=== PATIENT | female | born 1955 | race Caucasian/White ===

== ENCOUNTER 2016-08-04 18:19 | Observation (INO) | payer OTHER ==
[2016-08-04] MEDS ORDERED: ONDANSETRON 4 MG/2 ML VIAL IVP STA (18:38)
[2016-08-04] MEDS ORDERED: SODIUM CHLORIDE 0.9% 1,000 ML IV STA ×2 (18:38→20:24)
[2016-08-04] MEDS ORDERED: HYDROmorphone 1 MG/ML 1 ML SYRINGE IVP STA ×2 (18:38→20:26)
--- NOTE | 2016-08-04 18:41 | ED ---
General Adult HPI - General Source: RN notes reviewed <Nadine Sanders - Last Filed: 08/04/16 20:26> <Zachariah Faye - Last Filed: 08/04/16 20:39> - General Stated complaint: Abdominal Pain Time Seen by Provider: 08/04/16 18:32 - History of Present Illness Initial comments: 61-year-old female presents emergency Department chief complaint abdominal pain. Patient states it started last day or so. Patient states she has a history of pancreatitis. Patient states that she is having vomiting just as abdominal pain and left-sided the abdomen. Patient states that she is concerned maybe she has kidney stones or may be her pancreatitis is back. Patient has had a low-grade temp of this. Patient is a changes in urination any blood in the urine. Patient states visiting nurse tried to call her doctor and he referred her here. Patient states that she does have a urologist as well she is to have a catheter but that has since been removed. Patient states she was concerned due to the pain with a low-grade fever so she thought that she should be evaluated.Patient denies any recent fever, chills, shortness of breath, chest pain, back pain, nausea vomiting, numbness or tingling, dysuria or hematuria, constipation or diarrhea, headaches or visual changes, or any other current symptoms. (Nadine Sanders) - Related Data Home Medications Medication Instructions Recorded Confirmed Fenofibrate 160 mg PO HS 11/15/15 08/04/16 Losartan Potassium [Cozaar] 100 mg PO DAILY 11/15/15 08/04/16 Metoprolol Tartrate [Lopressor] 50 mg PO BID 11/15/15 08/04/16 Docusate [Colace] 200 mg PO HS 07/20/16 08/04/16 HYDROcodone/APAP 7.5-325MG [[place] 1 tab PO Q4H PRN 07/20/16 08/04/16 7.5-325] Sennosides [Senna] 17.2 mg PO HS 07/20/16 08/04/16 amLODIPine [Norvasc] 5 mg PO DAILY 07/20/16 08/04/16 Ibuprofen [Motrin] 400 mg PO Q6H PRN 08/04/16 08/04/16 Allergies Allergy/AdvReac Type Severity Reaction Status Date / Time sulfamethoxazole Allergy Itching Verified 08/04/16 19:42 [From ] trimethoprim [From ] Allergy Itching Verified 08/04/16 19:42 Review of Systems ROS Other: All systems not noted in ROS Statement are negative. <MarilynNadine - Last Filed: 08/04/16 20:26> ROS Other: All systems not noted in ROS Statement are negative. <YunierZachariah - Last Filed: 08/04/16 20:39> ROS Statement: Those systems with pertinent positive or pertinent negative responses have been documented in the HPI. Past Medical History Past Medical History: Diabetes Mellitus, GERD/Reflux, Hyperlipidemia, Hypertension Additional Past Medical History / Comment(s): Nephrolithiasis, UTI's, patient reports she was once on insulin for diabetes but changed her diet and now does not take anything. occasional vertigo, and R arm fracture with surgery. 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 Past Anesthesia/Blood Transfusion Reactions: No Reported Reaction Additional Past Anesthesia/Blood Transfusion Reaction / Comment(s): Pt received blood in 1978-no reaction reported. Past Psychological History: No Psychological Hx Reported Additional Psychological History / Comment(s): Pt has had anxiety and panic attacks in the past but states no longer a problem. She resides with her spouse. She is independent. She in a bilateral AKA and gets around in a power wheelchair. She no longer drives but her spouse drives. Smoking Status: Current every day smoker Past Alcohol Use History: None Reported Additional Past Alcohol Use History / Comment(s): Pt states she started smoking at age 18 yrs and a pack will last her 2 days. Past Drug Use History: None Reported - Past Family History Father Family Medical History: Cancer, Myocardial Infarction ([place]) Additional Family Medical History / Comment(s): Father had lung cancer-went into remission. He of a massive [place] in his 60's Mother Family Medical History: Cancer Additional Family Medical History / Comment(s): Mother of lung cancer at age 54 yrs. <Nadine Sanders - Last Filed: 08/04/16 20:26> General Exam <Nadine Sanders - Last Filed: 08/04/16 20:26> <Zachariah Faye - Last Filed: 08/04/16 20:39> - General Exam Comments Initial Comments: General: The patient is awake and alert, in no distress, and does not appear acutely ill. Eye: Pupils are equal, round and reactive to light, extra-ocular movements are intact; there is normal conjunctiva bilaterally. No signs of icterus. Ears, nose, mouth and throat: There are moist mucous membranes and no oral lesions. Neck: The neck is supple, there is no tenderness. Cardiovascular: There is a regular rate and rhythm. No murmur, rub or gallop is appreciated. Respiratory: Lungs are clear to auscultation, respirations are non-labored, breath sounds are equal. No wheezes, stridor, rales, or rhonchi. Gastrointestinal: Soft, non-distended, left side tenderness of the abdomen without masses or organomegaly noted. There is no rebound or guarding present. No CVA tenderness. Bowel sounds are unremarkable. Back: There is no tenderness to palpation in the midline. There is no obvious deformity. No rashes noted. Musculoskeletal: Normal ROM, no tenderness, There is no pedal edema. There is no calf tenderness or swelling. Sensation intact. Pulses equal bilaterally 2+. Neurological: CN II-XII intact, There are no obvious motor or sensory deficits. Coordination appears grossly intact. Speech is normal. Skin: Skin is warm and dry and no rashes or lesions are noted. Psychiatric: Cooperative, appropriate mood & affect, normal judgment. (Nadine Sanders) Course <Nadine Sanders - Last Filed: 08/04/16 20:26> <Zachariah Faye - Last Filed: 08/04/16 20:39> Vital Signs 08/04/16 18:52 Temperature 100.1 F H Pulse Rate 91 Respiratory 18 Rate Blood Pressure 212/102 O2 Sat by Pulse 96 Oximetry - Reevaluation(s) Reevaluation #1: 08/04/16 20:37 I did personally evaluate this case and did discuss the findings with Dr. Nguyen. Patient be admitted for pain control IV fluids. She'll be nothing by mouth. (Zachariah Faye) Medical Decision Making - Lab Data Result diagrams: 08/04/16 18:50 08/04/16 18:50 <Nadine Sanders - Last Filed: 08/04/16 20:26> - Lab Data Result diagrams: 08/04/16 18:50 08/04/16 18:50 <Zachariah Faye - Last Filed: 08/04/16 20:39> - Medical Decision Making 61-year-old female presents emergency Department chief complaint abdominal pain. At this time the patient's CAT scan is reviewed as well as lab work. Patient does have a mildly elevated lipase with some white blood cells in urine. We will send the urine for culture. We will also start the patient and he'll give her pain medicines and nausea meds are pink and has admitted the patient. CAT scan was reviewed that does not show any significant changes. This time patient is in agreement with the plan. (Nadine Sanders) - Lab Data Lab Results 08/04/16 08/04/16 08/04/16 Range/Units 18:50 18:50 18:50 WBC 11.3 H (3.8-10.6) k/uL RBC 5.02 (3.80-5.40) m/uL Hgb 14.4 (11.4-16.0) gm/dL Hct 42.8 (34.0-46.0) % MCV 85.4 (80.0-100.0) fL MCH 28.6 (25.0-35.0) pg MCHC 33.5 (31.0-37.0) g/dL RDW 13.2 (11.5-15.5) % Plt Count 423 (150-450) k/uL Neutrophils % 65 % Lymphocytes % 27 % Monocytes % 5 % Eosinophils % 2 % Basophils % 1 % Neutrophils # 7.3 (1.3-7.7) k/uL Lymphocytes # 3.1 (1.0-4.8) k/uL Monocytes # 0.5 (0-1.0) k/uL Eosinophils # 0.2 (0-0.7) k/uL Basophils # 0.1 (0-0.2) k/uL PT (9.0-12.0) sec INR (<1.1) APTT (22.0-30.0) sec Sodium 144 (137-145) mmol/L Potassium 3.6 (3.5-5.1) mmol/L Chloride 111 H (98-107) mmol/L Carbon Dioxide 19 L (22-30) mmol/L Anion Gap 14 mmol/L BUN 23 H (7-17) mg/dL Creatinine 0.55 (0.52-1.04) mg/dL Est GFR (MDRD) Af Amer >60 (>60 ml/min/1.73 sqM) Est GFR (MDRD) Non-Af >60 (>60 ml/min/1.73 sqM) Glucose 152 H (74-99) mg/dL Plasma Lactic Acid Joshua 1.4 (0.7-2.0) mmol/L Calcium 8.8 (8.4-10.2) mg/dL Total Bilirubin 0.3 (0.2-1.3) mg/dL AST 17 (14-36) U/L ALT 27 (9-52) U/L Alkaline Phosphatase 51 (38-126) U/L Total Protein 6.8 (6.3-8.2) g/dL Albumin 3.9 (3.5-5.0) g/dL Amylase 79 (30-110) U/L Lipase 549 H (23-300) U/L Urine Color Urine Appearance (Clear) Urine pH (5.0-8.0) Ur Specific [place] (1.001-1.035) Urine Protein (Negative) Urine Glucose (UA) (Negative) Urine Ketones (Negative) Urine Blood (Negative) Urine Nitrate (Negative) Urine Bilirubin (Negative) Urine Urobilinogen (<2.0) mg/dL Ur Leukocyte Esterase (Negative) Urine RBC (0-5) /hpf Urine WBC (0-5) /hpf Ur Squamous Epith Cells (0-4) /hpf Urine Bacteria (None) /hpf 08/04/16 08/04/16 Range/Units 18:50 19:50 WBC (3.8-10.6) k/uL RBC (3.80-5.40) m/uL Hgb (11.4-16.0) gm/dL Hct (34.0-46.0) % MCV (80.0-100.0) fL MCH (25.0-35.0) pg MCHC (31.0-37.0) g/dL RDW (11.5-15.5) % Plt Count (150-450) k/uL Neutrophils % % Lymphocytes % % Monocytes % % Eosinophils % % Basophils % % Neutrophils # (1.3-7.7) k/uL Lymphocytes # (1.0-4.8) k/uL Monocytes # (0-1.0) k/uL Eosinophils # (0-0.7) k/uL Basophils # (0-0.2) k/uL PT 10.5 (9.0-12.0) sec INR 1.0 (<1.1) APTT 25.1 (22.0-30.0) sec Sodium (137-145) mmol/L Potassium (3.5-5.1) mmol/L Chloride (98-107) mmol/L Carbon Dioxide (22-30) mmol/L Anion Gap mmol/L BUN (7-17) mg/dL Creatinine (0.52-1.04) mg/dL Est GFR (MDRD) Af Amer (>60 ml/min/1.73 sqM) Est GFR (MDRD) Non-Af (>60 ml/min/1.73 sqM) Glucose (74-99) mg/dL Plasma Lactic Acid Joshua (0.7-2.0) mmol/L Calcium (8.4-10.2) mg/dL Total Bilirubin (0.2-1.3) mg/dL AST (14-36) U/L ALT (9-52) U/L Alkaline Phosphatase (38-126) U/L Total Protein (6.3-8.2) g/dL Albumin (3.5-5.0) g/dL Amylase (30-110) U/L Lipase (23-300) U/L Urine Color Light Yellow Urine Appearance Clear (Clear) Urine pH 5.5 (5.0-8.0) Ur Specific [place] 1.010 (1.001-1.035) Urine Protein Negative (Negative) Urine Glucose (UA) Negative (Negative) Urine Ketones Negative (Negative) Urine Blood Negative (Negative) Urine Nitrate Negative (Negative) Urine Bilirubin Negative (Negative) Urine Urobilinogen <2.0 (<2.0) mg/dL Ur Leukocyte Esterase Large H (Negative) Urine RBC 2 (0-5) /hpf Urine WBC 20 H (0-5) /hpf Ur Squamous Epith Cells 4 (0-4) /hpf Urine Bacteria Rare H (None) /hpf Disposition Time of Disposition: 20:27 Decision Date: 08/04/16 Decision Time: 20:27 <Nadine Sanders - Last Filed: 08/04/16 20:26> <Zachariah Faye - Last Filed: 08/04/16 20:39> Clinical Impression: Acute pancreatitis, Urinary tract infection, Abdominal pain, Dehydration Disposition: ADMITTED IP TO THIS HOSP Condition: Stable Referrals: Dick Nguyen MD [Primary Care Provider] - 1-2 days
[2016-08-04 19:00] LABS: Basophils # (A) 0.1 k/uL (0-0.2); Basophils % (A) 1 %; CH 29.2; CHCM 34.4; Eosinophils # (A) 0.2 k/uL (0-0.7); Eosinophils % (A) 2 %; HCT 42.8 % (34.0-46.0); HDW 2.49; HGB 14.4 gm/dL (11.4-16.0); Luc # (Auto) 0.16; Luc % (Auto) 1; Lymphocytes # (A) 3.1 k/uL (1.0-4.8); Lymphocytes % (A) 27 %; MCH 28.6 pg (25.0-35.0); MCHC 33.5 g/dL (31.0-37.0); MCV 85.4 fL (80.0-100.0); Mean Platelet Volume 7.7; Monocytes # (A) 0.5 k/uL (0-1.0); Monocytes % (A) 5 %; Neutrophils # (A) 7.3 k/uL (1.3-7.7); Neutrophils % (A) 65 %; RBC 5.02 m/uL (3.80-5.40); RDW 13.2 % (11.5-15.5); WBC 11.3 k/uL (3.8-10.6); WBC (Perox) 11.37
[2016-08-04 19:12] LABS: Partial Thromboplastin Time 25.1 sec (22.0-30.0); Prothrombin Time 10.5 sec (9.0-12.0)
[2016-08-04 19:22] LABS: ALT 27 U/L (9-52); AST 17 U/L (14-36); Alkaline Phosphatase 51 U/L (38-126); Amylase 79 U/L (30-110); Anion Gap 14 mmol/L; Blood Urea Nitrogen 23 mg/dL (7-17); Calcium 8.8 mg/dL (8.4-10.2); Carbon Dioxide 19 mmol/L (22-30); Chloride 111 mmol/L (98-107); Glucose 152 mg/dL (74-99); Non-African American GFR(MDRD) >60 (>60 ml/min/1.73 sqM); Potassium 3.6 mmol/L (3.5-5.1); Sodium 144 mmol/L (137-145); Total Bilirubin 0.3 mg/dL (0.2-1.3); Total Protein 6.8 g/dL (6.3-8.2)
[2016-08-04 20:10] LABS: Appearance,Urine Clear (Clear); Bacteria,Urine Rare /hpf; Bilirubin,Urine Negative (Negative); Glucose,Urine (UA) Negative (Negative); Ketones,Urine Negative (Negative); Leukocyte Esterase,Urine Large (Negative); Nitrite,Urine Negative (Negative); PH, Urine 5.5 (5.0-8.0); Particle Count 1719; Protein,Urine Negative (Negative); RBC,Urine 2 /hpf (0-5); Squamous Epithelial Cell,Urine 4 /hpf (0-4); UA Billing (MACRO vs. MICRO) MICRO; Urobilinogen,Urine <2.0 mg/dL (<2.0); WBC,Urine 20 /hpf (0-5)
--- NOTE | 2016-08-04 20:20 | CT ---
EXAMINATION TYPE: CT abdomen pelvis wo con DATE OF EXAM: 08/04/2016 7:25 PM COMPARISON: Prior CT abdomen and pelvis 20 July 2016, 2 weeks prior HISTORY: Pt states of LLQ pain x2 days and worsening. CT DLP: 937 mGycm Automated exposure control for dose reduction was used. TECHNIQUE: Helical acquisition of images from the lung bases through the pelvis. FINDINGS: Mitral annular calcifications noted within the heart heart is enlarged. LUNG BASES: Posterior diaphragmatic hernia on the right contains fat. AORTA: No significant abnormality is appreciated. LIVER/GB: Liver shows low attenuation and is enlarged suggestive of fatty infiltration. PANCREAS: No significant abnormality is seen. SPLEEN: No significant abnormality is seen. ADRENALS: No significant abnormality is seen. KIDNEYS: Similar findings. Nonobstructive right renal calculus is again noted now within a posterior calyx measuring approximately 8 to 9 mm, right kidney is atrophic. Left kidney shows a lower pole non obstructive calculus measuring 8 mm. No ureteral calculi. Lower pole of the left kidney shows some pr obable scarring. REPRODUCTIVE ORGANS: Uterus and adnexal structures are absent. URINARY BLADDER: Urinary bladder wall thickening is suspected, correlate for possible cystitis BOWEL: No obstruction evident. FREE AIR: No Free Air is visible. ASCITES: None visible. PELVIC ADENOPATHY: None visualized. RETROPERITONEAL ADENOPATHY: No Retroperitoneal Adenopathy visible. OSSEOUS STRUCTURES: Impacted femoral neck fracture is not significantly changed on the left and is c hronic. IMPRESSION: THERE IS NOT A SIGNIFICANT INTERVAL CHANGE. BILATERAL NEPHROLITHIASIS. POSTOP CHANGE. FLUID-FILLED DI STAL ESOPHAGUS HAS IMPROVED IN THE INTERVAL. THERE MAY BE A SMALL HIATAL HERNIA. HEPATOMEGALY, FATTY INFILTRATION OF THE LIVER.
[2016-08-04] MEDS ORDERED: NALOXONE 0.4 MG/ML 1 ML VIAL IV PRN (20:27)
[2016-08-04] MEDS ORDERED: ACETAMINOPHEN TAB 325 MG TAB PO PRN (20:27)
[2016-08-04] MEDS ORDERED: IBUPROFEN 400 MG TAB PO PRN (20:29)
[2016-08-04 22:12] VITALS: BMI 27.6
[2016-08-04] MEDS: FENOFIBRATE 160 MG TAB PO SCH (22:35)
[2016-08-04] MEDS: DOCUSATE 100 MG CAP PO SCH (22:35)
[2016-08-04] MEDS: METOPROLOL TARTRATE 50 MG TAB PO SCH (22:35)
[2016-08-04] MEDS: SENNOSIDES 8.6 MG TAB PO SCH (22:35)
[2016-08-04] MEDS: SODIUM CHLORIDE 0.9% 1,000 ML IV SCH ×2 (22:36→23:14)
[2016-08-04] MEDS: HEPARIN SODIUM,PORCINE 5,000 UNIT/ML 1 ML VIAL SQ SCH (23:14)
[2016-08-05] MEDS: HYDROmorphone 1 MG/ML 1 ML SYRINGE IV PRN ×7 (00:38→20:21)
[2016-08-05 07:40] LABS: ALT 29 U/L (9-52); AST 20 U/L (14-36); Alkaline Phosphatase 44 U/L (38-126); Amylase 45 U/L (30-110); Anion Gap 10 mmol/L; Blood Urea Nitrogen 16 mg/dL (7-17); Calcium 8.1 mg/dL (8.4-10.2); Carbon Dioxide 21 mmol/L (22-30); Chloride 115 mmol/L (98-107); Glucose 81 mg/dL (74-99); Non-African American GFR(MDRD) >60 (>60 ml/min/1.73 sqM); Potassium 4.1 mmol/L (3.5-5.1); Sodium 146 mmol/L (137-145); Total Bilirubin 0.3 mg/dL (0.2-1.3); Total Protein 6.1 g/dL (6.3-8.2)
[2016-08-05 08:13] LABS: Basophils # (A) 0.1 k/uL (0-0.2); Basophils % (A) 1 %; CH 28.5; CHCM 32.5; Eosinophils # (A) 0.2 k/uL (0-0.7); Eosinophils % (A) 2 %; HDW 2.46; HGB 12.9 gm/dL (11.4-16.0); Luc % (Auto) 2; Lymphocytes # (A) 4.5 k/uL (1.0-4.8); Lymphocytes % (A) 49 %; MCH 28.3 pg (25.0-35.0); MCHC 32.1 g/dL (31.0-37.0); MCV 88.1 fL (80.0-100.0); Mean Platelet Volume 7.1; Monocytes # (A) 0.4 k/uL (0-1.0); Monocytes % (A) 4 %; Neutrophils # (A) 3.8 k/uL (1.3-7.7); Neutrophils % (A) 42 %; RBC 4.54 m/uL (3.80-5.40); RDW 13.3 % (11.5-15.5); WBC 9.2 k/uL (3.8-10.6); WBC (Perox) 9.84
[2016-08-05] MEDS: LOSARTAN 50 MG TAB PO SCH (08:26)
[2016-08-05] MEDS: HEPARIN SODIUM,PORCINE 5,000 UNIT/ML 1 ML VIAL SQ SCH ×2 (08:26→15:30)
[2016-08-05] MEDS: METOPROLOL TARTRATE 50 MG TAB PO SCH ×2 (08:26→20:11)
[2016-08-05] MEDS: amLODIPine 5 MG TAB PO SCH (08:27)
[2016-08-05] MEDS ORDERED: CIPROFLOXACIN HCL 500 MG TAB PO SCH (09:00)
[2016-08-05] MEDS: SODIUM CHLORIDE 0.9% 1,000 ML IV SCH ×3 (11:35→22:22)
[2016-08-05] MEDS: FENOFIBRATE 160 MG TAB PO SCH (20:10)
[2016-08-05] MEDS: DOCUSATE 100 MG CAP PO SCH (20:10)
[2016-08-05] MEDS: SENNOSIDES 8.6 MG TAB PO SCH (20:10)
[2016-08-05] MEDS: NITROFURANTOIN MONOHYD/M-CRYST 100 MG CAP PO SCH (22:20)
[2016-08-06] MEDS: HYDROmorphone 1 MG/ML 1 ML SYRINGE IV PRN ×3 (00:21→05:53)
[2016-08-06] MEDS: HEPARIN SODIUM,PORCINE 5,000 UNIT/ML 1 ML VIAL SQ SCH ×4 (00:21→23:29)
--- NOTE | 2016-08-06 07:25 | P.HPIM ---
History of Present Illness H&P Date: 08/05/16 Chief Complaint: Abdominal pain This is history and physical on a 61-year-old white female who is readmitted for recurrent pancreatitis. The patient states it has started in the last 2 days. She also has an underlying history of chronic nephrolithiasis and history of bladder weakness. She struggles with chronic/recurrent UTI. We have struggled with trying to have her learn to straight catheterize herself. She denies any recent fever or chills. However, she has significant element of abdominal pain. She does struggle constipation. Her pain seems to epigastric without radiation. She does not complain of pain necessary through the back. Review of Systems Constitutional: Reports poor appetite, Denies chills, Denies fever Eyes: denies blurred vision, denies pain Ears, nose, mouth and throat: Denies headache, Denies sore throat Cardiovascular: Denies chest pain, Denies shortness of breath Respiratory: Denies cough Gastrointestinal: Reports as per HPI, Reports abdominal pain Genitourinary: Reports incomplete emptying, Denies dysuria, Denies hematuria Musculoskeletal: Denies myalgias Integumentary: Denies pruritus, Denies rash Neurological: Denies numbness, Denies weakness Past Medical History Past Medical History: Diabetes Mellitus, GERD/Reflux, Hyperlipidemia, Hypertension Additional Past Medical History / Comment(s): Nephrolithiasis, UTI's, patient reports she was once on insulin for diabetes but changed her diet and now does not take anything. occasional vertigo, and R arm fracture with surgery. 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 Past Anesthesia/Blood Transfusion Reactions: No Reported Reaction Additional Past Anesthesia/Blood Transfusion Reaction / Comment(s): Pt received blood in 1978-no reaction reported. Past Psychological History: No Psychological Hx Reported Additional Psychological History / Comment(s): Pt has had anxiety and panic attacks in the past but states no longer a problem. She resides with her spouse. She is independent. She in a bilateral AKA and gets around in a power wheelchair. She no longer drives but her spouse drives. Smoking Status: Current every day smoker Past Alcohol Use History: None Reported Additional Past Alcohol Use History / Comment(s): Pt states she started smoking at age 18 yrs and a pack will last her 2 days. Past Drug Use History: None Reported - Past Family History Father Family Medical History: Cancer, Myocardial Infarction ([place]) Additional Family Medical History / Comment(s): Father had lung cancer-went into remission. He of a massive [place] in his 60's Mother Family Medical History: Cancer Additional Family Medical History / Comment(s): Mother of lung cancer at age 54 yrs. Medications and Allergies Home Medications Medication Instructions Recorded Confirmed Type Fenofibrate 160 mg PO HS 11/15/15 08/04/16 History Losartan Potassium [Cozaar] 100 mg PO DAILY 11/15/15 08/04/16 History Metoprolol Tartrate [Lopressor] 50 mg PO BID 11/15/15 08/04/16 History Docusate [Colace] 200 mg PO HS 07/20/16 08/04/16 History HYDROcodone/APAP 7.5-325MG [[place] 1 tab PO Q4H PRN 07/20/16 08/04/16 History 7.5-325] Sennosides [Senna] 17.2 mg PO HS 07/20/16 08/04/16 History amLODIPine [Norvasc] 5 mg PO DAILY 07/20/16 08/04/16 History Ibuprofen [Motrin] 400 mg PO Q6H PRN 08/04/16 08/04/16 History Allergies Allergy/AdvReac Type Severity Reaction Status Date / Time sulfamethoxazole Allergy Itching Verified 08/04/16 19:42 [From Septra] trimethoprim [From Septra] Allergy Itching Verified 08/04/16 19:42 levofloxacin [From Levaquin] AdvReac Unknown Verified 08/04/16 22:15 Physical Exam Vitals: Vital Signs Temp Pulse Pulse Resp BP BP Pulse Ox 08/05/16 03:36 97.6 F 56 L 16 134/62 95 08/05/16 03:18 16 08/05/16 00:00 16 08/04/16 22:49 97.9 F 70 16 144/86 94 L 08/04/16 21:26 98.8 F 72 18 181/83 95 Intake and Output 08/04/16 08/05/16 08/05/16 22:59 06:59 14:59 Intake Total 1000 Balance 1000 Intake: Amount of Fluid Infused ( 1000 ml) Other: Voiding Method Bedside Commode # Voids 1 Weight 77.564 kg - Constitutional General appearance: no acute distress, obese - EENT Eyes: EOMI - Neck Neck: no lymphadenopathy - Respiratory Respiratory: bilateral: CTA - Cardiovascular Rhythm: regular Heart sounds: normal: S1, S2 - Gastrointestinal General gastrointestinal: soft, no tenderness - Integumentary Integumentary: no rash - Psychiatric Psychiatric: A&O x's 3 Results CBC & Chem 7: 08/04/16 18:50 08/05/16 07:04 Labs: Abnormal Lab Results - Last 24 Hours (Table) 08/05/16 Range/Units 07:04 Sodium 146 H (137-145) mmol/L Chloride 115 H (98-107) mmol/L Carbon Dioxide 21 L (22-30) mmol/L Creatinine 0.48 L (0.52-1.04) mg/dL Calcium 8.1 L (8.4-10.2) mg/dL Total Protein 6.1 L (6.3-8.2) g/dL Albumin 3.4 L (3.5-5.0) g/dL Thrombosis Risk Factor Assmnt - Choose All That Apply Any of the Below Risk Factors Present?: Yes Each Factor Represents 1 point: Obesity (BMI >25) Other Risk Factors: Yes Other congenital or acquired thrombophilia - If yes, enter type in comment: Yes Thrombosis Risk Factor Assessment Total Risk Factor Score: 1 Thrombosis Risk Factor Assessment Level: Low Risk Assessment and Plan (1) Abdominal pain Status: Acute (2) Acute pancreatitis Status: Acute (3) Bilateral kidney stones Status: Acute (4) Renal calculus Status: Acute (5) Urinary retention Status: Acute (6) Amputated left leg Status: Chronic (7) Amputated right leg Status: Chronic Plan: Acute pancreatitis/history of recurrent. Keep nothing by mouth and slowly advance diet once enzymes are stable. History of UTI. Check urinalysis. We'll consult gastroenterology. Probable need to send home on pancreatic enzymes. Check CBC, CMP with amylase and lipase.
[2016-08-06 07:35] LABS: ALT 40 U/L (9-52); AST 30 U/L (14-36); Alkaline Phosphatase 46 U/L (38-126); Amylase <30 U/L (30-110); Anion Gap 12 mmol/L; Blood Urea Nitrogen 7 mg/dL (7-17); Calcium 8.6 mg/dL (8.4-10.2); Carbon Dioxide 20 mmol/L (22-30); Chloride 112 mmol/L (98-107); Glucose 95 mg/dL (74-99); Non-African American GFR(MDRD) >60 (>60 ml/min/1.73 sqM); Potassium 4.1 mmol/L (3.5-5.1); Sodium 144 mmol/L (137-145); Total Bilirubin 0.4 mg/dL (0.2-1.3); Total Protein 6.4 g/dL (6.3-8.2)
[2016-08-06] MEDS ORDERED: amLODIPine 5 MG TAB PO STA (07:36)
[2016-08-06] MEDS: HYDROcodone/APAP 5-325MG 1 EACH TAB PO PRN ×2 (08:16→15:29)
[2016-08-06] MEDS: METOPROLOL TARTRATE 50 MG TAB PO SCH ×2 (08:17→20:44)
[2016-08-06] MEDS: amLODIPine 5 MG TAB PO SCH (08:18)
[2016-08-06] MEDS: LOSARTAN 50 MG TAB PO SCH (08:18)
[2016-08-06] MEDS: NITROFURANTOIN MONOHYD/M-CRYST 100 MG CAP PO SCH ×2 (08:19→20:28)
[2016-08-06] MEDS: HYDROmorphone 1 MG/ML 1 ML SYRINGE IVP PRN ×5 (09:50→23:28)
[2016-08-06] MEDS: ONDANSETRON 4 MG/2 ML VIAL IVP PRN (20:01)
[2016-08-06] MEDS: SENNOSIDES 8.6 MG TAB PO SCH (20:28)
[2016-08-06] MEDS: DOCUSATE 100 MG CAP PO SCH (20:29)
[2016-08-06] MEDS: FENOFIBRATE 160 MG TAB PO SCH (20:29)
[2016-08-07] MEDS: SODIUM CHLORIDE 0.9% 1,000 ML IV SCH ×2 (02:46→17:50)
[2016-08-07] MEDS: HYDROmorphone 1 MG/ML 1 ML SYRINGE IVP PRN ×3 (02:46→10:17)
[2016-08-07 07:28] LABS: ALT 39 U/L (9-52); AST 26 U/L (14-36); Alkaline Phosphatase 52 U/L (38-126); Amylase 52 U/L (30-110); Anion Gap 11 mmol/L; Blood Urea Nitrogen 17 mg/dL (7-17); Calcium 9.2 mg/dL (8.4-10.2); Carbon Dioxide 25 mmol/L (22-30); Chloride 111 mmol/L (98-107); Glucose 95 mg/dL (74-99); Non-African American GFR(MDRD) >60 (>60 ml/min/1.73 sqM); Potassium 4.3 mmol/L (3.5-5.1); Sodium 147 mmol/L (137-145); Total Bilirubin 0.3 mg/dL (0.2-1.3); Total Protein 6.5 g/dL (6.3-8.2)
[2016-08-07] MEDS: ONDANSETRON 4 MG/2 ML VIAL IVP PRN (10:17)
[2016-08-07] MEDS: HEPARIN SODIUM,PORCINE 5,000 UNIT/ML 1 ML VIAL SQ SCH ×2 (10:20→17:51)
[2016-08-07] MEDS: amLODIPine 5 MG TAB PO SCH (10:21)
[2016-08-07] MEDS: NITROFURANTOIN MONOHYD/M-CRYST 100 MG CAP PO SCH ×2 (10:21→20:46)
[2016-08-07] MEDS: METOPROLOL TARTRATE 50 MG TAB PO SCH ×2 (10:21→20:46)
[2016-08-07] MEDS: LOSARTAN 50 MG TAB PO SCH (10:21)
[2016-08-07] MEDS ORDERED: oxyCODONE-APAP 10-325MG 1 EACH TAB PO PRN (10:38)
[2016-08-07] MEDS ORDERED: amLODIPine 5 MG TAB PO STA (12:24)
--- NOTE | 2016-08-07 12:29 | P.CONS ---
History of Present Illness - Reason for Consult Consult date: 08/07/16 pancreatitis Requesting physician: Dick Nguyen - History of Present Illness 61-year-old female patient Dr. 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 Consultation requested for possible pancreatitis with elevated lipase. Patient admitted a few days ago with diffuse mid abdominal to upper abdomen pain radiating sometimes to her upper back with a lipase level of 549. Amylase 79. LFTs bilirubin within normal limits. Lipase normalized to 121 yesterday and today increased to 466 however amylase has been within normal limits. Patient states she had an episode for the first time with pancreatitis 2 weeks ago. When reviewing prior medical records lipase at that time was 1046 and normalized a few days later to 124. Amylase, LFTs, bilirubin again remained within normal limits. No history of alcohol abuse or changes in medications. ET scan abdomen and pelvis reported no abnormality within the pancreas. No ductal dilatation. Liver is enlarged suggestive of fatty infiltration. Review of Systems All systems: negative (See HPI) Past Medical History Past Medical History: Diabetes Mellitus, GERD/Reflux, Hyperlipidemia, Hypertension Additional Past Medical History / Comment(s): Nephrolithiasis, UTI's, patient reports she was once on insulin for diabetes but changed her diet and now does not take anything. occasional vertigo, and R arm fracture with surgery. 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 Past Anesthesia/Blood Transfusion Reactions: No Reported Reaction Additional Past Anesthesia/Blood Transfusion Reaction / Comm: Pt received blood in 1978-no reaction reported. Past Psychological History: No Psychological Hx Reported Additional Psychological History / Comment(s): Pt has had anxiety and panic attacks in the past but states no longer a problem. She resides with her spouse. She is independent. She in a bilateral AKA and gets around in a power wheelchair. She no longer drives but her spouse drives. Smoking Status: Current every day smoker Past Alcohol Use History: None Reported Additional Past Alcohol Use History / Comment(s): Pt states she started smoking at age 18 yrs and a pack will last her 2 days. Past Drug Use History: None Reported - Past Family History Father Family Medical History: Cancer, Myocardial Infarction ([place]) Additional Family Medical History / Comment(s): Father had lung cancer-went into remission. He of a massive [place] in his 60's Mother Family Medical History: Cancer Additional Family Medical History / Comment(s): Mother of lung cancer at age 54 yrs. Medications and Allergies Home Medications Medication Instructions Recorded Confirmed Type Fenofibrate 160 mg PO HS 11/15/15 08/04/16 History Losartan Potassium [Cozaar] 100 mg PO DAILY 11/15/15 08/04/16 History Metoprolol Tartrate [Lopressor] 50 mg PO BID 11/15/15 08/04/16 History Docusate [Colace] 200 mg PO HS 07/20/16 08/04/16 History HYDROcodone/APAP 7.5-325MG [[place] 1 tab PO Q4H PRN 07/20/16 08/04/16 History 7.5-325] Sennosides [Senna] 17.2 mg PO HS 07/20/16 08/04/16 History amLODIPine [Norvasc] 5 mg PO DAILY 07/20/16 08/04/16 History Ibuprofen [Motrin] 400 mg PO Q6H PRN 08/04/16 08/04/16 History Allergies Allergy/AdvReac Type Severity Reaction Status Date / Time sulfamethoxazole Allergy Itching Verified 08/04/16 19:42 [From Septra] trimethoprim [From Septra] Allergy Itching Verified 08/04/16 19:42 levofloxacin [From Levaquin] AdvReac Muscle Pain Verified 08/05/16 08:15 Physical Exam Vitals: Vital Signs Temp Pulse Resp BP Pulse Ox 08/07/16 01:00 98.6 F 68 18 178/59 94 L 08/06/16 20:00 18 08/06/16 15:18 98.7 F 63 16 161/84 94 L 08/06/16 15:17 63 16 Intake and Output 08/06/16 08/07/16 08/07/16 22:59 06:59 14:59 Intake Total 360 600 180 Output Total 300 300 Balance 60 600 -120 Intake: Intake, IV Titration 600 Amount Sodium Chloride 0.9% 1, 600 000 ml @ 75 mls/hr IV . [id number] [facility] Rx#:[id number] Oral 360 180 Output: Urine 300 300 Other: Voiding Method Bedside Commode Bedpan # Voids 1 1 General appearance: The patient is alert, oriented, in no acute distress. HET: Head is normocephalic and atraumatic. Pupils are equal and reactive. Oropharynx is clear without lesions. Neck: Supple without lymphadenopathy. Trachea midline. Heart: S1 S2. Regular rate and rhythm. Lungs: No crackles or wheezes are heard. Abdomen: Soft, obese, diffuse mild tenderness across mid abdomen and left upper quadrant, nondistended with bowel sounds. No peritoneal signs. No palpable organomegaly or masses. Extremities: Bilateral BKA. Results CBC & Chem 7: 08/05/16 07:04 08/07/16 06:50 Labs: Abnormal Lab Results - Last 24 Hours (Table) 08/07/16 Range/Units 06:50 Sodium 147 H (137-145) mmol/L Chloride 111 H (98-107) mmol/L Lipase 466 H (23-300) U/L Microbiology - Last 24 Hours (Table) 08/05/16 15:40 Urine Culture - Final Urine,Voided CT scan - abdomen: report reviewed CT scan - pelvis: report reviewed (Review by Dr. Rizo) Assessment and Plan Plan: 61-year-old female with a history of recurrent UTIs and nephrolithiasis presents with diffuse abdominal pain with elevated lipase possible pancreatitis however isolated elevated lipase level is nonspecific. Recommendations: 1. Supportive measures. Will obtain an IgG 4 subclass and ALEX. Would advise follow-up in GI office in 1-2 weeks after discharge for reevaluation. Outpatient MRCP can be considered after office evaluation. ERCP is not indicated at this time as patient has normal liver function tests. Thank you for this kind referral and the opportunity to participate in the care of your patient. This consultation was discussed with Dr. Rizo. The impression and plan of care have been directed as dictated.
--- NOTE | 2016-08-07 18:45 | P.PN ---
Objective - Vital Signs Vital signs: Vital Signs Temp 97.8 F 08/07/16 13:51 Pulse 63 08/07/16 13:51 Resp 16 08/07/16 13:51 BP 198/89 08/07/16 18:07 Pulse Ox 96 08/07/16 13:51 Intake & Output 08/06/16 08/07/16 08/07/16 18:59 06:59 18:59 Intake Total 885 600 785 Output Total 300 1050 Balance 585 600 -265 Intake: Intake, IV Titration 525 600 Amount Sodium Chloride 0.9% 1, 525 600 000 ml @ 75 mls/hr IV . [id number] [facility] Rx#:[id number] Oral 360 785 Output: Urine 300 1050 Other: Voiding Method Bedside Commode Bedside Commode Bedside Commode Bedpan Bedpan # Voids 1 1 # Bowel Movements 1 - Labs CBC & Chem 7: 08/05/16 07:04 08/07/16 06:50 Labs: Abnormal Lab Results - Last 24 Hours (Table) 08/07/16 Range/Units 06:50 Sodium 147 H (137-145) mmol/L Chloride 111 H (98-107) mmol/L Lipase 466 H (23-300) U/L Microbiology - Last 24 Hours (Table) 08/05/16 15:40 Urine Culture - Final Urine,Voided Assessment and Plan (1) Abdominal pain Status: Acute (2) Acute pancreatitis Status: Acute (3) Bilateral kidney stones Status: Acute (4) Renal calculus Status: Acute (5) Urinary retention Status: Acute (6) Amputated left leg Status: Chronic (7) Amputated right leg Status: Chronic
[2016-08-07] MEDS: HYDROcodone/APAP 10-325MG 1 EACH TAB PO PRN (19:24)
[2016-08-07] MEDS: cloNIDine HCL 0.1 MG TAB PO SCH (20:45)
[2016-08-07] MEDS: DOCUSATE 100 MG CAP PO SCH (20:45)
[2016-08-07] MEDS: FENOFIBRATE 160 MG TAB PO SCH (20:46)
[2016-08-07] MEDS: SENNOSIDES 8.6 MG TAB PO SCH (20:46)
[2016-08-08] MEDS: HEPARIN SODIUM,PORCINE 5,000 UNIT/ML 1 ML VIAL SQ SCH ×2 (00:46→08:57)
[2016-08-08] MEDS: HYDROcodone/APAP 10-325MG 1 EACH TAB PO PRN ×4 (00:57→15:25)
[2016-08-08 03:02] VITALS: BP 171/79
[2016-08-08] MEDS: SODIUM CHLORIDE 0.9% 1,000 ML IV SCH (05:50)
[2016-08-08 07:32] LABS: Amylase 49 U/L (30-110)
[2016-08-08] MEDS: LOSARTAN 50 MG TAB PO SCH (08:57)
[2016-08-08] MEDS: cloNIDine HCL 0.1 MG TAB PO SCH (08:57)
[2016-08-08] MEDS: METOPROLOL TARTRATE 50 MG TAB PO SCH (08:58)
[2016-08-08] MEDS: NITROFURANTOIN MONOHYD/M-CRYST 100 MG CAP PO SCH (08:58)
[2016-08-08] MEDS ORDERED: amLODIPine 10 MG TAB PO SCH (09:00)
[2016-08-08 09:13] VITALS: PULSE 84; RESP 19; TEMP 98
[2016-08-08 11:51] LABS: IgG Subclass 3 25.8 mg/dL (11.0-85.0); IgG Subclass 4 21.5 mg/dL (3.0-175.0)
== END 2016-08-08 15:49 | disposition home or self-care (01) ==
LOC: EC 18:19 → INTOOBSV 20:07 → 3SUR 20:07
PROVIDERS: ADMIT Family Medicine; ATTEND Family Medicine
DX: K85.90 Acute pancreatitis without necrosis or infection, unspecified (principal); E11.22 Type 2 diabetes mellitus with diabetic chronic kidney disease; Z89.611 Acquired absence of right leg above knee; K86.1 Other chronic pancreatitis; N20.0 Calculus of kidney; Z89.612 Acquired absence of left leg above knee; I12.9 Hypertensive chronic kidney disease with stage 1 through stage 4 chronic kidney disease, or unspecified chronic kidney disease; E78.5 Hyperlipidemia, unspecified; K21.9 Gastro-esophageal reflux disease without esophagitis; E86.0 Dehydration; N18.9 Chronic kidney disease, unspecified; R33.9 Retention of urine, unspecified; K59.00 Constipation, unspecified; F17.200 Nicotine dependence, unspecified, uncomplicated; Z87.440 Personal history of urinary (tract) infections; Z90.49 Acquired absence of other specified parts of digestive tract; Z90.710 Acquired absence of both cervix and uterus; Z98.1 Arthrodesis status; Z86.59 Personal history of other mental and behavioral disorders; Z87.442 Personal history of urinary calculi; Z99.3 Dependence on wheelchair; Z82.49 Family history of ischemic heart disease and other diseases of the circulatory system; Z88.3 Allergy status to other anti-infective agents; Z88.2 Allergy status to sulfonamides
CPT/HCPCS: 96376; 96361; 96365; 96375; 99285; 51798; 36415; 80053 ×4; 82150 ×5; 83605; 83690 ×5; 85025 ×2; 85610; 85730; 81001; 87040; 82787; 86038; 87086 ×2; 74176; G0378 ×5; J1644 ×5; J2405 ×3; J0696; J1170 ×4; 96372

== ENCOUNTER 2017-03-08 19:09 | Emergency (ER) | payer OTHER ==
[2017-03-08] MEDS ORDERED: HYDROmorphone 1 MG/ML 1 ML SYRINGE IVP STA ×2 (19:47→22:31)
[2017-03-08] MEDS ORDERED: SODIUM CHLORIDE 0.9% 1,000 ML IV STA (19:47)
[2017-03-08] MEDS ORDERED: ONDANSETRON 4 MG/2 ML VIAL IVP STA (19:47)
[2017-03-08] MEDS ORDERED: KETOROLAC 30 MG/ML 1 ML VIAL IVP STA (19:47)
--- NOTE | 2017-03-08 20:05 | ED ---
Back Pain HPI - General Chief Complaint: Back Pain/Injury Stated Complaint: kidney stones,abd pain Time Seen by Provider: 03/08/17 19:42 Source: EMS, RN notes reviewed, old records reviewed Limitations: physical limitation - History of Present Illness Initial Comments: This is a 61-year-old female presents emergency Department via EMS with chief complaint of left flank pain and left-sided abdominal pain for the past 2 days. She does have a history of pancreatitis. She reports that she has a surgical history includes hysterectomy and tonsillectomy. She states that she has had no nausea or vomiting. She's had some significant diarrhea. She reports that she's had no fever or chills. She does have a history of being a double amputee. She states that the pain radiates from her left side of her abdomen towards her back and down toward leg. She does have a history of kidney stones.Patient denies any recent fever, chills, shortness of breath, chest pain , back pain, vomiting, numbness or tingling, dysuria or hematuria, constipation or diarrhea, headaches or visual changes, or any other current symptoms - Related Data Home Medications Medication Instructions Recorded Confirmed Fenofibrate 160 mg PO HS 11/15/15 03/08/17 Losartan Potassium [Cozaar] 100 mg PO DAILY 11/15/15 03/08/17 Metoprolol Tartrate [Lopressor] 50 mg PO BID 11/15/15 03/08/17 Docusate [Colace] 200 mg PO HS 07/20/16 03/08/17 Sennosides [Senna] 17.2 mg PO HS 07/20/16 03/08/17 HYDROcodone/APAP 10-325MG [[place] 1 tab PO Q4HR PRN 03/08/17 03/08/17 10-325] Prochlorperazine [Compazine] 10 mg PO TID PRN 03/08/17 03/08/17 amLODIPine [Norvasc] 10 mg PO HS 03/08/17 03/08/17 Previous Rx's Medication Instructions Recorded cloNIDine HCL [Catapres] 0.1 mg PO BID #60 tab 08/08/16 Allergies Allergy/AdvReac Type Severity Reaction Status Date / Time sulfamethoxazole Allergy Itching Verified 03/08/17 19:26 [From ] trimethoprim [From Septra] Allergy Itching Verified 03/08/17 19:26 levofloxacin [From Levaquin] AdvReac Muscle Pain Verified 03/08/17 19:26 Review of Systems ROS Statement: Those systems with pertinent positive or pertinent negative responses have been documented in the HPI. ROS Other: All systems not noted in ROS Statement are negative. Past Medical History Past Medical History: Diabetes Mellitus, GERD/Reflux, Hyperlipidemia, Hypertension Additional Past Medical History / Comment(s): Nephrolithiasis, UTI's, patient reports she was once on insulin for diabetes but changed her diet and now does not take anything. occasional vertigo, and R arm fracture with surgery. 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 Past Anesthesia/Blood Transfusion Reactions: No Reported Reaction Additional Past Anesthesia/Blood Transfusion Reaction / Comment(s): Pt received blood in 1978-no reaction reported. Past Psychological History: No Psychological Hx Reported Smoking Status: Current every day smoker Past Alcohol Use History: None Reported Past Drug Use History: None Reported - Past Family History Father Family Medical History: Cancer, Myocardial Infarction ([place]) Additional Family Medical History / Comment(s): Father had lung cancer-went into remission. He of a massive [place] in his 60's Mother Family Medical History: Cancer Additional Family Medical History / Comment(s): Mother of lung cancer at age 54 yrs. General Exam - General Exam Comments Initial Comments: This is a 61-year-old female. Patient does not appear to be in any significant distress. Limitations: physical limitation Head exam: Present: atraumatic, normocephalic, normal inspection Eye exam: Present: normal appearance, PERRL, EOMI. Absent: scleral icterus, conjunctival injection, periorbital swelling ENT exam: Present: normal exam, mucous membranes moist Neck exam: Present: normal inspection. Absent: tenderness, meningismus, lymphadenopathy Respiratory exam: Present: normal lung sounds bilaterally. Absent: respiratory distress, wheezes, rales, rhonchi, stridor Cardiovascular Exam: Present: regular rate, normal rhythm, normal heart sounds. Absent: systolic murmur, diastolic murmur, rubs, gallop, clicks GI/Abdominal exam: Present: soft, tenderness (Significant left upper quadrant and left flank tenderness.), normal bowel sounds. Absent: distended, guarding, rebound, rigid Extremities exam: Present: full ROM, normal capillary refill. Absent: normal inspection (Pt is a double knee amputee.), tenderness, pedal edema, joint swelling, calf tenderness Back exam: Present: normal inspection Neurological exam: Present: alert, oriented X3, CN II-XII intact Psychiatric exam: Present: normal affect, normal mood Skin exam: Present: warm, dry, intact, normal color. Absent: rash Course Vital Signs 03/08/17 03/08/17 03/08/17 19:20 21:16 22:24 Temperature 98.9 F 98.0 F Pulse Rate 83 71 71 Respiratory 20 20 20 Rate Blood Pressure 218/97 184/82 172/82 O2 Sat by Pulse 95 94 L 95 Oximetry 03/08/17 03/08/17 22:51 23:19 Temperature Pulse Rate 76 79 Respiratory 20 18 Rate Blood Pressure 164/81 157/78 O2 Sat by Pulse 96 94 L Oximetry Medical Decision Making - Medical Decision Making This is a 61-year-old female presents emergency Department via EMS with chief complaint of left flank pain and left-sided abdominal pain for the past 2 days. It is lab work was reviewed to show elevated lipase of 609. Urinalysis also does show signs of possible early urinary tract infection with white blood cells. She recently completed a course of Macrobid. We will do a culture of the urine. Patient received IV fluids. Discussed case with Dr. Cano, whom discussed case with Dr. Nguyen. Dr. Nguyen recommends IV hydration, and for patient to be discharged home. He reports that he will see patient in office setting. Discussed close follow up wth PCP. Patient was reluctant to leave, discussed that lab work was reviewed and symptoms seem to be chronic as noted with previous admissions. Patient was discharged home. Return parameters discussed. - Lab Data Result diagrams: 03/08/17 19:27 03/08/17 19:27 Lab Results 03/08/17 03/08/17 03/08/17 Range/Units 19:27 19:27 19:27 WBC 13.1 H (3.8-10.6) k/uL RBC 5.44 H (3.80-5.40) m/uL Hgb 15.7 (11.4-16.0) gm/dL Hct 47.9 H (34.0-46.0) % MCV 88.1 (80.0-100.0) fL MCH 28.9 (25.0-35.0) pg MCHC 32.8 (31.0-37.0) g/dL RDW 15.0 (11.5-15.5) % Plt Count 451 H (150-450) k/uL Neutrophils % 61 % Lymphocytes % 30 % Monocytes % 6 % Eosinophils % 1 % Basophils % 1 % Neutrophils # 8.0 H (1.3-7.7) k/uL Lymphocytes # 3.9 (1.0-4.8) k/uL Monocytes # 0.7 (0-1.0) k/uL Eosinophils # 0.1 (0-0.7) k/uL Basophils # 0.1 (0-0.2) k/uL PT 10.9 (9.0-12.0) sec INR 1.1 (<1.2) APTT 25.0 (22.0-30.0) sec Sodium 141 (137-145) mmol/L Potassium 4.1 (3.5-5.1) mmol/L Chloride 110 H (98-107) mmol/L Carbon Dioxide 19 L (22-30) mmol/L Anion Gap 12 mmol/L BUN 22 H (7-17) mg/dL Creatinine 0.69 (0.52-1.04) mg/dL Est GFR (MDRD) Af Amer >60 (>60 ml/min/1.73 sqM) Est GFR (MDRD) Non-Af >60 (>60 ml/min/1.73 sqM) Glucose 125 H (74-99) mg/dL Plasma Lactic Acid Joshua (0.7-2.0) mmol/L Calcium 10.0 (8.4-10.2) mg/dL Total Bilirubin 0.3 (0.2-1.3) mg/dL AST 23 (14-36) U/L ALT 41 (9-52) U/L Alkaline Phosphatase 52 (38-126) U/L Total Protein 7.3 (6.3-8.2) g/dL Albumin 4.4 (3.5-5.0) g/dL Amylase 67 (30-110) U/L Lipase 607 H (23-300) U/L Urine Color Urine Appearance (Clear) Urine pH (5.0-8.0) Ur Specific [place] (1.001-1.035) Urine Protein (Negative) Urine Glucose (UA) (Negative) Urine Ketones (Negative) Urine Blood (Negative) Urine Nitrite (Negative) Urine Bilirubin (Negative) Urine Urobilinogen (<2.0) mg/dL Ur Leukocyte Esterase (Negative) Urine RBC (0-5) /hpf Urine WBC (0-5) /hpf Ur Squamous Epith Cells (0-4) /hpf Urine Bacteria (None) /hpf Urine Mucus (None) /hpf Urine Yeast (Budding) (None) /hpf 03/08/17 03/08/17 Range/Units 20:04 20:51 WBC (3.8-10.6) k/uL RBC (3.80-5.40) m/uL Hgb (11.4-16.0) gm/dL Hct (34.0-46.0) % MCV (80.0-100.0) fL MCH (25.0-35.0) pg MCHC (31.0-37.0) g/dL RDW (11.5-15.5) % Plt Count (150-450) k/uL Neutrophils % % Lymphocytes % % Monocytes % % Eosinophils % % Basophils % % Neutrophils # (1.3-7.7) k/uL Lymphocytes # (1.0-4.8) k/uL Monocytes # (0-1.0) k/uL Eosinophils # (0-0.7) k/uL Basophils # (0-0.2) k/uL PT (9.0-12.0) sec INR (<1.2) APTT (22.0-30.0) sec Sodium (137-145) mmol/L Potassium (3.5-5.1) mmol/L Chloride (98-107) mmol/L Carbon Dioxide (22-30) mmol/L Anion Gap mmol/L BUN (7-17) mg/dL Creatinine (0.52-1.04) mg/dL Est GFR (MDRD) Af Amer (>60 ml/min/1.73 sqM) Est GFR (MDRD) Non-Af (>60 ml/min/1.73 sqM) Glucose (74-99) mg/dL Plasma Lactic Acid Joshua 0.9 (0.7-2.0) mmol/L Calcium (8.4-10.2) mg/dL Total Bilirubin (0.2-1.3) mg/dL AST (14-36) U/L ALT (9-52) U/L Alkaline Phosphatase (38-126) U/L Total Protein (6.3-8.2) g/dL Albumin (3.5-5.0) g/dL Amylase (30-110) U/L Lipase (23-300) U/L Urine Color Light Yellow Urine Appearance Clear (Clear) Urine pH 6.0 (5.0-8.0) Ur Specific [place] 1.010 (1.001-1.035) Urine Protein Negative (Negative) Urine Glucose (UA) Negative (Negative) Urine Ketones Negative (Negative) Urine Blood Negative (Negative) Urine Nitrite Negative (Negative) Urine Bilirubin Negative (Negative) Urine Urobilinogen <2.0 (<2.0) mg/dL Ur Leukocyte Esterase Large H (Negative) Urine RBC 4 (0-5) /hpf Urine WBC 57 H (0-5) /hpf Ur Squamous Epith Cells 2 (0-4) /hpf Urine Bacteria Many H (None) /hpf Urine Mucus Rare H (None) /hpf Urine Yeast (Budding) Occasional H (None) /hpf - Radiology Data Radiology results: report reviewed KUB shows unchanged 7 mm left pole calculus stating back to 07/20 2016. Cholecystectomy clips reside in the right upper quadrant. Disposition Clinical Impression: Pancreatitis Disposition: HOME SELF-CARE Condition: Good Instructions: Pancreatitis (ED) Additional Instructions: Patient advised to follow-up with a primary care physician tomorrow. Return to the emergency department if any alarming signs or symptoms occur. Patient is to have a clear liquid diet. Referrals: Dick Nguyen MD [Primary Care Provider] - 1-2 days Time of Disposition: 21:55
[2017-03-08 20:15] LABS: Basophils # (A) 0.1 k/uL (0-0.2); Basophils % (A) 1 %; CH 30.2; CHCM 34.4; Eosinophils # (A) 0.1 k/uL (0-0.7); Eosinophils % (A) 1 %; HCT 47.9 % (34.0-46.0); HDW 2.33; HGB 15.7 gm/dL (11.4-16.0); Luc # (Auto) 0.22; Luc % (Auto) 2; Lymphocytes # (A) 3.9 k/uL (1.0-4.8); Lymphocytes % (A) 30 %; MCH 28.9 pg (25.0-35.0); MCHC 32.8 g/dL (31.0-37.0); MCV 88.1 fL (80.0-100.0); Mean Platelet Volume 7.8; Monocytes # (A) 0.7 k/uL (0-1.0); Monocytes % (A) 6 %; Neutrophils % (A) 61 %; RBC 5.44 m/uL (3.80-5.40); WBC 13.1 k/uL (3.8-10.6)
[2017-03-08 20:26] LABS: INR 1.1 (<1.2); Prothrombin Time 10.9 sec (9.0-12.0)
--- NOTE | 2017-03-08 20:26 | XR ---
EXAMINATION TYPE: XR KUB DATE OF EXAM: 03/08/2017 8:19 PM CLINICAL HISTORY: Left flank pain and history of nephrolithiasis bilaterally. History also includes UTIs, hysterectomy, diabetes and cholecystectomy. TECHNIQUE: Single supine KUB image of the abdomen is obtained. COMPARISON: 07/20/2016. FINDINGS: Scattered gas is seen in non-distended small bowel loops. An unchanged 7 mm calculus projec ts over the lower pole of the left kidney. Calcification overlying the right iliac bone is also uncha nged from the prior. Left femoral deformity likely relates to prior fracture. Cholecystectomy clips r eside within the right upper quadrant. The lung bases are clear and the osseous structures are intac t. IMPRESSION: 1. Unchanged 7 mm left lower pole calculus dating back to 07/20/2016. 2. Nonobstructive bowel gas pattern.
[2017-03-08 20:28] LABS: ALT 41 U/L (9-52); AST 23 U/L (14-36); Alkaline Phosphatase 52 U/L (38-126); Amylase 67 U/L (30-110); Anion Gap 12 mmol/L; Blood Urea Nitrogen 22 mg/dL (7-17); Carbon Dioxide 19 mmol/L (22-30); Chloride 110 mmol/L (98-107); Glucose 125 mg/dL (74-99); Non-African American GFR(MDRD) >60 (>60 ml/min/1.73 sqM); Potassium 4.1 mmol/L (3.5-5.1); Sodium 141 mmol/L (137-145); Total Bilirubin 0.3 mg/dL (0.2-1.3); Total Protein 7.3 g/dL (6.3-8.2)
[2017-03-08 21:10] LABS: Appearance,Urine Clear (Clear); Bacteria,Urine Many /hpf; Bilirubin,Urine Negative (Negative); Glucose,Urine (UA) Negative (Negative); Ketones,Urine Negative (Negative); Leukocyte Esterase,Urine Large (Negative); Mucus,Urine Rare /hpf; Nitrite,Urine Negative (Negative); Particle Count 5643; Protein,Urine Negative (Negative); RBC,Urine 4 /hpf (0-5); Squamous Epithelial Cell,Urine 2 /hpf (0-4); UA Billing (MACRO vs. MICRO) MICRO; Urobilinogen,Urine <2.0 mg/dL (<2.0); WBC,Urine 57 /hpf (0-5)
[2017-03-08] MEDS ORDERED: HYDROmorphone 1 MG/ML 1 ML SYRINGE IV PRN (21:55)
[2017-03-08] MEDS ORDERED: NALOXONE 0.4 MG/ML 1 ML VIAL IV PRN (21:55)
[2017-03-08] MEDS ORDERED: ONDANSETRON 4 MG/2 ML VIAL IVP PRN (21:55)
[2017-03-08] MEDS ORDERED: PROCHLORPERAZINE 10 MG TAB PO PRN (22:00)
[2017-03-08] MEDS ORDERED: SODIUM CHLORIDE 0.9% 1,000 ML IV SCH (22:00)
[2017-03-08] MEDS ORDERED: LORazepam 2 MG/ML SYRINGE IV STA (22:13)
[2017-03-08 22:25] VITALS: TEMP 98
[2017-03-08 23:21] VITALS: BP 157/78; PULSE 79; RESP 18
[2017-03-09] MEDS ORDERED: NON-FORMULARY DRUG (Losartan Potassium [Cozaar] 100 MG) PO SCH (09:00)
[2017-03-09] MEDS ORDERED: cloNIDine HCL 0.1 MG TAB PO SCH (09:00)
[2017-03-09] MEDS ORDERED: METOPROLOL TARTRATE 50 MG TAB PO SCH (09:00)
[2017-03-09] MEDS ORDERED: ENOXAPARIN 40 MG/0.4 ML SYRINGE SQ SCH (09:00)
[2017-03-09] MEDS ORDERED: PANTOPRAZOLE 40 MG/10 ML VIAL IV SCH (09:00)
[2017-03-09] MEDS ORDERED: DOCUSATE 100 MG CAP PO SCH (21:00)
[2017-03-09] MEDS ORDERED: SENNOSIDES 8.6 MG TAB PO SCH (21:00)
[2017-03-09] MEDS ORDERED: FENOFIBRATE 160 MG TAB PO SCH (21:00)
[2017-03-09] MEDS ORDERED: amLODIPine 10 MG TAB PO SCH (21:00)
== END 2017-03-08 23:59 | disposition home or self-care (01) ==
LOC: EC 19:09
DX: K85.90 Acute pancreatitis without necrosis or infection, unspecified (principal); R74.8 Abnormal levels of other serum enzymes; K21.9 Gastro-esophageal reflux disease without esophagitis; I10 Essential (primary) hypertension; E78.5 Hyperlipidemia, unspecified; E11.9 Type 2 diabetes mellitus without complications; F17.200 Nicotine dependence, unspecified, uncomplicated; Z79.899 Other long term (current) drug therapy; Z88.2 Allergy status to sulfonamides; Z88.1 Allergy status to other antibiotic agents; Z87.442 Personal history of urinary calculi; Z87.440 Personal history of urinary (tract) infections; Z90.49 Acquired absence of other specified parts of digestive tract
CPT/HCPCS: 36415; 80053; 82150; 83605; 83690; 85025; 85610; 85730; 81001; 87086; 74000; 99285; 96374; 96375 ×3; 96376; 96361 ×4; J2060; J2405; J1885; J1170

== ENCOUNTER → 2017-04-13 | Outpatient (CLI) | payer OTHER ==
[2017-04-13 13:52] LABS: Anion Gap 10 mmol/L; Blood Urea Nitrogen 21 mg/dL (7-17); Calcium 9.5 mg/dL (8.4-10.2); Carbon Dioxide 22 mmol/L (22-30); Chloride 105 mmol/L (98-107); Glucose 107 mg/dL (74-99); Non-African American GFR(MDRD) >60 (>60 ml/min/1.73 sqM); Potassium 4.6 mmol/L (3.5-5.1); Sodium 137 mmol/L (137-145)
[2017-04-13 14:03] LABS: EKG EKG PERFORMED
[2017-04-13 16:19] LABS: CH 29.1; CHCM 33.4; HCT 43.5 % (34.0-46.0); HDW 2.37; HGB 14.4 gm/dL (11.4-16.0); MCH 28.9 pg (25.0-35.0); MCHC 33.1 g/dL (31.0-37.0); MCV 87.3 fL (80.0-100.0); Mean Platelet Volume 7.8; RBC 4.98 m/uL (3.80-5.40); RDW 13.4 % (11.5-15.5); WBC 11.9 k/uL (3.8-10.6)
== END | disposition home or self-care (01) ==
LOC: LABWHC1 12:47
PROVIDERS: ATTEND Urology
DX: N20.0 Calculus of kidney (principal)
CPT/HCPCS: 36415; 80048; 85027; 93005

== ENCOUNTER 2017-07-29 18:32 | Emergency (ER) | payer OTHER ==
[2017-07-29] MEDS ORDERED: RX INFO: IV CONTRAST WAS GIVEN 1 EACH MISC MISCELLANE PRN (19:10)
[2017-07-29] MEDS ORDERED: ASPIRIN 325 MG TAB PO STA (19:10)
[2017-07-29] MEDS ORDERED: HYDROmorphone 1 MG/ML 1 ML SYRINGE IVP STA ×2 (19:28→21:31)
[2017-07-29 19:31] LABS: Basophils # (A) 0.1 k/uL (0-0.2); Basophils % (A) 1 %; CH 28.1; CHCM 33.5; Eosinophils # (A) 0.2 k/uL (0-0.7); Eosinophils % (A) 1 %; HCT 46.7 % (34.0-46.0); HDW 2.26; HGB 15.4 gm/dL (11.4-16.0); Luc # (Auto) 0.26; Luc % (Auto) 2; Lymphocytes # (A) 3.6 k/uL (1.0-4.8); Lymphocytes % (A) 25 %; MCH 27.8 pg (25.0-35.0); MCV 84.4 fL (80.0-100.0); Mean Platelet Volume 7.7; Monocytes # (A) 0.7 k/uL (0-1.0); Monocytes % (A) 5 %; Neutrophils # (A) 9.7 k/uL (1.3-7.7); Neutrophils % (A) 67 %; RBC 5.53 m/uL (3.80-5.40); RDW 15.5 % (11.5-15.5); WBC 14.5 k/uL (3.8-10.6); WBC (Perox) 14.61
[2017-07-29] MEDS ORDERED: ONDANSETRON 4 MG/2 ML VIAL IVP STA ×2 (19:35→21:31)
[2017-07-29 19:56] LABS: ALT 31 U/L (9-52); AST 23 U/L (14-36); Alkaline Phosphatase 59 U/L (38-126); Anion Gap 12 mmol/L; Blood Urea Nitrogen 25 mg/dL (7-17); Calcium 10.1 mg/dL (8.4-10.2); Carbon Dioxide 18 mmol/L (22-30); Chloride 113 mmol/L (98-107); Glucose 101 mg/dL (74-99); Non-African American GFR(MDRD) >60 (>60 ml/min/1.73 sqM); Sodium 143 mmol/L (137-145); Total Bilirubin 0.3 mg/dL (0.2-1.3); Total Protein 7.5 g/dL (6.3-8.2)
--- NOTE | 2017-07-29 20:29 | XR ---
EXAMINATION: XR chest 2V DATE AND TIME: 07/29/2017 8:16 PM ORDERING PROVIDER: Benny Miller DO CLINICAL INDICATION: Chest pain TECHNIQUE: PA and lateral COMPARISON: 07/20/2016 DESCRIPTION: The lungs are clear. The pleural spaces are negative. The cardiac silhouette is not enla rged. The mediastinal and pleural silhouettes are unremarkable. The skeletal structures are intact without focal findings. Limitation: The soft tissues are very prominent, limiting visualization of several structures in the lower thorax. IMPRESSION: NO DEFINITE ACUTE PROCESS.
--- NOTE | 2017-07-29 20:46 | CT ---
EXAMINATION TYPE: CT abdomen pelvis w con DATE OF EXAM: 07/29/2017 COMPARISON: 07/01/2017 HISTORY: Left lower quadrant pain shooting down left leg. CT DLP: 1688.00 mGycm. Automated exposure control for dose reduction was used. TECHNIQUE: Helical acquisition of images was performed from the lung bases through the pelvis. CONTRAST: Performed without Oral Contrast and with IV Contrast, patient injected with 100 mL of Omnip aque 300. FINDINGS: LUNG BASES: No significant abnormality is appreciated. LIVER/GB: No significant abnormality is appreciated. PANCREAS: No significant abnormality is seen. SPLEEN: No significant abnormality is seen. ADRENALS: No significant abnormality is seen. KIDNEYS: No acute findings. Shrunken right kidney with nonobstructing [place] lower pole calcificati ons noted. There is a nonobstructing 5 mm calcification is noted in the lower pole left kidney. PERITONEAL CAVITY: No abnormal gas or fluid collections. ABDOMINAL ADENOPATHY: None visualized REPRODUCTIVE ORGANS: No significant abnormality is seen URINARY BLADDER: No significant abnormality is seen. PELVIC ADENOPATHY: None visualized. OSSEOUS STRUCTURES: No acute abnormality is seen. The architectural distortion of the left femoral n [place] is redemonstrated, similar in appearance to the prior study of 07/01/2017. BOWEL: No significant abnormality is seen. VASCULATURE: Unremarkable. IMPRESSION: NO ACUTE PROCESS.
--- NOTE | 2017-07-29 21:34 | ED ---
Abdominal Pain HPI - General Chief Complaint: Abdominal Pain Stated Complaint: abdominal pain Time Seen by Provider: 07/29/17 18:48 Source: patient, EMS Mode of arrival: EMS Limitations: physical limitation - History of Present Illness Initial Comments: 62-year-old female with past medical history of DM, GERD, HLD, HTN, and bilateral AKA presented for evaluation of left lower quadrant abdominal pain. She states this pain is similar to the pain that she had last month when she was admitted at that time had decreased enhancement of her left kidney raising concern for ischemia. Her inpatient workup was negative and repeat imaging revealed no abnormalities of the kidneys she was discharged home. She is followed up with her primary care physician was offered her pain control as well as follow-up with a pain specialist however she has refused stating that it is difficult to get to that office and also stating that she is not convinced the pain medications given a work for her. - Related Data Home Medications Medication Instructions Recorded Confirmed Fenofibrate 160 mg PO HS 11/15/15 07/29/17 Losartan Potassium [Cozaar] 100 mg PO DAILY 11/15/15 07/29/17 Metoprolol Tartrate [Lopressor] 50 mg PO BID 11/15/15 07/29/17 Docusate [Colace] 200 mg PO HS 07/20/16 07/29/17 Sennosides [Senna] 17.2 mg PO HS 07/20/16 07/29/17 Prochlorperazine [Compazine] 10 mg PO TID PRN 03/08/17 07/29/17 amLODIPine [Norvasc] 10 mg PO HS 03/08/17 07/29/17 Ranitidine HCl [Zantac] 150 mg PO DAILY 07/01/17 07/29/17 HYDROcodone/APAP 10-325MG [[place] 1 tab PO Q6H PRN 07/29/17 07/29/17 10-325] Previous Rx's Medication Instructions Recorded cloNIDine HCL [Catapres] 0.1 mg PO BID #60 tab 08/08/16 Atorvastatin [Lipitor] 40 mg PO HS #30 tab 07/05/17 oxyCODONE-APAP 10-325MG [Percocet 1 tab PO Q6HR #20 tab 07/29/17 10-325 mg] Allergies Allergy/AdvReac Type Severity Reaction Status Date / Time sulfamethoxazole Allergy Itching Verified 07/29/17 19:42 [From Septra] trimethoprim [From Septra] Allergy Itching Verified 07/29/17 19:42 levofloxacin [From Levaquin] AdvReac Muscle Pain Verified 07/29/17 19:42 Review of Systems ROS Statement: Those systems with pertinent positive or pertinent negative responses have been documented in the HPI. ROS Other: All systems not noted in ROS Statement are negative. Constitutional: Denies: fever, chills ENT: Denies: ear pain, throat pain Respiratory: Denies: cough, dyspnea Cardiovascular: Denies: chest pain, palpitations Endocrine: Denies: fatigue, polydipsia, polyuria Gastrointestinal: Reports: abdominal pain, nausea. Denies: vomiting, diarrhea, constipation Genitourinary: Denies: urgency, dysuria Musculoskeletal: Denies: back pain, arthralgia, myalgia Skin: Denies: rash, lesions Neurological: Denies: headache, weakness Psychiatric: Denies: anxiety, depression Hematological/Lymphatic: Denies: easy bleeding, easy bruising Past Medical History Past Medical History: Diabetes Mellitus, GERD/Reflux, Hyperlipidemia, Hypertension Additional Past Medical History / Comment(s): Nephrolithiasis, UTI's, patient reports she was once on insulin for diabetes but changed her diet and now does not take anything. occasional vertigo, and R arm fracture with surgery. 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 lithotripsy on left side Past Anesthesia/Blood Transfusion Reactions: No Reported Reaction Additional Past Anesthesia/Blood Transfusion Reaction / Comment(s): Pt received blood in 1978-no reaction reported. Past Psychological History: No Psychological Hx Reported Smoking Status: Current every day smoker Past Alcohol Use History: None Reported, Rare Past Drug Use History: None Reported - Past Family History Father Family Medical History: Cancer, Myocardial Infarction ([place]) Additional Family Medical History / Comment(s): Father had lung cancer-went into remission. He of a massive [place] in his 60's Mother Family Medical History: Cancer Additional Family Medical History / Comment(s): Mother of lung cancer at age 54 yrs. General Exam Limitations: physical limitation General appearance: alert, in no apparent distress Head exam: Present: atraumatic, normocephalic, normal inspection Eye exam: Present: normal appearance, PERRL, EOMI. Absent: scleral icterus, conjunctival injection, periorbital swelling ENT exam: Present: normal exam, mucous membranes moist Neck exam: Present: normal inspection. Absent: tenderness, meningismus, lymphadenopathy Respiratory exam: Present: normal lung sounds bilaterally. Absent: respiratory distress, wheezes, rales, rhonchi, stridor Cardiovascular Exam: Present: regular rate, normal rhythm, normal heart sounds. Absent: systolic murmur, diastolic murmur, rubs, gallop, clicks GI/Abdominal exam: Present: soft, tenderness. Absent: distended, guarding, rebound, rigid Rectal exam: Present: deferred Extremities exam: Present: other (Bilateral AKA) Back exam: Present: normal inspection, full ROM Neurological exam: Present: alert, oriented X3, CN II-XII intact Psychiatric exam: Present: normal affect, normal mood Skin exam: Present: warm, dry, intact, normal color. Absent: rash Course Vital Signs 07/29/17 07/29/17 18:35 19:25 Temperature 98.5 F Pulse Rate 90 93 Respiratory 16 16 Rate Blood Pressure 181/61 176/88 O2 Sat by Pulse 96 96 Oximetry Medical Decision Making - Medical Decision Making 62-year-old female with past medical history as noted above presented for evaluation of left lower quadrant abdominal pain. She has mild tenderness to palpation however there is no peritoneal sign of guarding, rigidity, rebound. There is no CVA tenderness and lungs are clear to auscultation bilaterally. Remainder physical exam reveals no acute abnormalities. Concern for intra- abdominal etiology raises a large differential diagnosis and will obtain CT abdomen and pelvis, labs, EKG, chest x-ray, and provide pain control Zofran and IV fluids. Labs revealed a mild leukocytosis as well as an elevated lipase however not consistent with the diagnosis of acute pancreatitis. CT abdomen and pelvis shows no acute abnormalities and compared to previous CT abdomen and pelvis there is better enhancement of the left kidney. Dr. Nguyen was called concerning this presentation to the ED and he agreed with plan to discharge patient home with pain control and have her follow-up in his office on Wednesday. The patient was informed of results as well as discussion with Dr. Nguyen and through shared decision making it was determined that she would go home with prescription for pain control and would call her primary care doctor on Wednesday. She is further informed that she should return to this facility if her symptoms should worsen or persist over the weekend. The patient acknowledged an understanding of all information provided and agreed with this plan of care. - Lab Data Result diagrams: 07/29/17 19:20 07/29/17 19:20 Lab Results 07/29/17 07/29/17 07/29/17 Range/Units 19:20 19:20 19:20 WBC 14.5 H (3.8-10.6) k/uL RBC 5.53 H (3.80-5.40) m/uL Hgb 15.4 (11.4-16.0) gm/dL Hct 46.7 H (34.0-46.0) % MCV 84.4 (80.0-100.0) fL MCH 27.8 (25.0-35.0) pg MCHC 33.0 (31.0-37.0) g/dL RDW 15.5 (11.5-15.5) % Plt Count 476 H (150-450) k/uL Neutrophils % 67 % Lymphocytes % 25 % Monocytes % 5 % Eosinophils % 1 % Basophils % 1 % Neutrophils # 9.7 H (1.3-7.7) k/uL Lymphocytes # 3.6 (1.0-4.8) k/uL Monocytes # 0.7 (0-1.0) k/uL Eosinophils # 0.2 (0-0.7) k/uL Basophils # 0.1 (0-0.2) k/uL Sodium 143 (137-145) mmol/L Potassium 4.0 (3.5-5.1) mmol/L Chloride 113 H (98-107) mmol/L Carbon Dioxide 18 L (22-30) mmol/L Anion Gap 12 mmol/L BUN 25 H (7-17) mg/dL Creatinine 0.73 (0.52-1.04) mg/dL Est GFR (MDRD) Af Amer >60 (>60 ml/min/1.73 sqM) Est GFR (MDRD) Non-Af >60 (>60 ml/min/1.73 sqM) Glucose 101 H (74-99) mg/dL Calcium 10.1 (8.4-10.2) mg/dL Total Bilirubin 0.3 (0.2-1.3) mg/dL AST 23 (14-36) U/L ALT 31 (9-52) U/L Alkaline Phosphatase 59 (38-126) U/L Troponin I (0.000-0.034) ng/mL NT-Pro-B Natriuret Pep 448 pg/mL Total Protein 7.5 (6.3-8.2) g/dL Albumin 4.3 (3.5-5.0) g/dL Lipase 787 H (23-300) U/L 07/29/17 Range/Units 19:20 WBC (3.8-10.6) k/uL RBC (3.80-5.40) m/uL Hgb (11.4-16.0) gm/dL Hct (34.0-46.0) % MCV (80.0-100.0) fL MCH (25.0-35.0) pg MCHC (31.0-37.0) g/dL RDW (11.5-15.5) % Plt Count (150-450) k/uL Neutrophils % % Lymphocytes % % Monocytes % % Eosinophils % % Basophils % % Neutrophils # (1.3-7.7) k/uL Lymphocytes # (1.0-4.8) k/uL Monocytes # (0-1.0) k/uL Eosinophils # (0-0.7) k/uL Basophils # (0-0.2) k/uL Sodium (137-145) mmol/L Potassium (3.5-5.1) mmol/L Chloride (98-107) mmol/L Carbon Dioxide (22-30) mmol/L Anion Gap mmol/L BUN (7-17) mg/dL Creatinine (0.52-1.04) mg/dL Est GFR (MDRD) Af Amer (>60 ml/min/1.73 sqM) Est GFR (MDRD) Non-Af (>60 ml/min/1.73 sqM) Glucose (74-99) mg/dL Calcium (8.4-10.2) mg/dL Total Bilirubin (0.2-1.3) mg/dL AST (14-36) U/L ALT (9-52) U/L Alkaline Phosphatase (38-126) U/L Troponin I <0.012 (0.000-0.034) ng/mL NT-Pro-B Natriuret Pep pg/mL Total Protein (6.3-8.2) g/dL Albumin (3.5-5.0) g/dL Lipase (23-300) U/L - EKG Data EKG Comments: Number sinus rhythm with rightward axis and a ventricular rate of 92, AL interval 154, QRS 80, QT/QTC 382/472. Disposition Clinical Impression: Abdominal pain, Leukocytosis Disposition: HOME SELF-CARE Condition: Stable Instructions: Abdominal Pain (ED) Additional Instructions: Please use medication as discussed. Please follow up with family doctor if symptoms have not improved over the next two days. Please return to the emergency room if your symptoms increase or worsen or for any other concerns. Dr. Nguyen has been informed of your presentation to the ED and has agreed to see you on wednesday. Please call his office that morning. Prescriptions: oxyCODONE-APAP 10-325MG [Percocet 10-325 mg] 1 tab PO Q6HR #20 tab Referrals: Dick Nguyen MD [Primary Care Provider] - 1-2 days Time of Disposition: 21:34
[2017-07-29 22:23] VITALS: BP 162/84; PULSE 83; RESP 18; TEMP 97.1
== END 2017-07-29 22:27 | disposition home or self-care (01) ==
LOC: EC 18:32
DX: D72.829 Elevated white blood cell count, unspecified (principal); R10.32 Left lower quadrant pain; K21.9 Gastro-esophageal reflux disease without esophagitis; E78.5 Hyperlipidemia, unspecified; I10 Essential (primary) hypertension; F17.200 Nicotine dependence, unspecified, uncomplicated; Z90.49 Acquired absence of other specified parts of digestive tract; Z79.899 Other long term (current) drug therapy; Z88.2 Allergy status to sulfonamides; Z88.1 Allergy status to other antibiotic agents
CPT/HCPCS: 36415; 93005; 83880; 80053; 83690; 84484; 85025; 71020; 74177; 99285; 96374; 96375; 96376 ×2; J2405; J1170; Q9967

== ENCOUNTER 2017-10-04 20:42 | Emergency (ER) | payer OTHER ==
--- NOTE | 2017-10-04 21:09 | ED ---
Abdominal Pain HPI - General Chief Complaint: Abdominal Pain Stated Complaint: ABD PAIN Time Seen by Provider: 10/04/17 21:05 Source: patient Mode of arrival: EMS Limitations: physical limitation - History of Present Illness Initial Comments: This patient is a 62-year-old woman presenting with complaint of bilateral lower quadrant abdominal pain. The patient states that the pain that brings her in today is in the left lower quadrant, it started on Wednesday morning, it has been constant and sharp. Tonight she states that it is severe, she has not noted any worsening or relieving factors, and she has no symptoms that she associates with the pain. She has also been having right lower quadrant pain that has been present for she says a bit over a week, that is achy, also constant, but is much less severe. She had not noted any other associated symptoms with that either. She does state that she had seen her physician, and was started on nitrofurantoin for urinary tract infection which she has been taking for 3 days now. MD Complaint: abdominal pain Location: LLQ, RLQ Radiation: none Migration to: no migration Severity: severe Quality: sharp Consistency: constant Improves With: nothing Worsens With: nothing Associated Symptoms: denies other symptoms - Related Data Home Medications Medication Instructions Recorded Confirmed Fenofibrate 160 mg PO HS 11/15/15 10/04/17 Losartan Potassium [Cozaar] 100 mg PO DAILY 11/15/15 10/04/17 Metoprolol Tartrate [Lopressor] 50 mg PO BID 11/15/15 10/04/17 amLODIPine [Norvasc] 10 mg PO HS 03/08/17 10/04/17 Aspirin EC [Ecotrin] 325 mg PO HS 10/04/17 10/04/17 Nitrofurantoin Monohyd/M-Cryst 100 mg PO DAILY 10/04/17 10/04/17 [Macrobid] Previous Rx's Medication Instructions Recorded cloNIDine HCL [Catapres] 0.1 mg PO BID #60 tab 08/08/16 Atorvastatin [Lipitor] 40 mg PO HS #30 tab 07/05/17 Amoxicillin/Potassium Clav 1 tab PO Q12HR #14 tab 10/05/17 [Augmentin 875-125 Tablet] traMADol HCl [Ultram] 50 mg PO Q6H PRN #15 tab 10/05/17 Allergies Allergy/AdvReac Type Severity Reaction Status Date / Time sulfamethoxazole Allergy Itching Verified 10/04/17 21:41 [From Septra] trimethoprim [From Septra] Allergy Itching Verified 10/04/17 21:41 levofloxacin [From Levaquin] AdvReac Muscle Pain Verified 10/04/17 21:41 Review of Systems ROS Statement: Those systems with pertinent positive or pertinent negative responses have been documented in the HPI. ROS Other: All systems not noted in ROS Statement are negative. Constitutional: Denies: fever, chills Respiratory: Denies: cough, dyspnea Cardiovascular: Denies: chest pain, palpitations Gastrointestinal: Reports: as per HPI, abdominal pain. Denies: nausea, vomiting , diarrhea, constipation, melena, hematochezia Genitourinary: Denies: dysuria, hematuria Musculoskeletal: Denies: back pain Skin: Denies: rash Neurological: Denies: headache, weakness, numbness Past Medical History Past Medical History: Diabetes Mellitus, GERD/Reflux, Hyperlipidemia, Hypertension Additional Past Medical History / Comment(s): Nephrolithiasis, UTI's, patient reports she was once on insulin for diabetes but changed her diet and now does not take anything. occasional vertigo, and R arm fracture with surgery. 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 lithotripsy on left side Past Anesthesia/Blood Transfusion Reactions: No Reported Reaction Additional Past Anesthesia/Blood Transfusion Reaction / Comment(s): Pt received blood in 1978-no reaction reported. Past Psychological History: No Psychological Hx Reported Smoking Status: Current every day smoker Past Alcohol Use History: None Reported, Rare Past Drug Use History: None Reported - Past Family History Father Family Medical History: Cancer, Myocardial Infarction ([place]) Additional Family Medical History / Comment(s): Father had lung cancer-went into remission. He of a massive [place] in his 60's Mother Family Medical History: Cancer Additional Family Medical History / Comment(s): Mother of lung cancer at age 54 yrs. General Exam Limitations: physical limitation General appearance: alert, in no apparent distress, obese Head exam: Present: atraumatic, normocephalic Eye exam: Present: normal appearance. Absent: scleral icterus, conjunctival injection ENT exam: Present: normal oropharynx Neck exam: Present: normal inspection Respiratory exam: Present: normal lung sounds bilaterally. Absent: respiratory distress, wheezes, rales, rhonchi, stridor Cardiovascular Exam: Present: regular rate, normal rhythm, normal heart sounds. Absent: systolic murmur, diastolic murmur, rubs, gallop GI/Abdominal exam: Present: soft, tenderness (Left lower quadrant), normal bowel sounds. Absent: distended, guarding, rebound, rigid, mass, pulsatile mass , hernia Neurological exam: Present: alert Skin exam: Present: warm, dry, intact, normal color. Absent: rash Course Vital Signs 10/04/17 10/04/17 10/05/17 20:44 23:27 00:20 Temperature 98.1 F Pulse Rate 80 78 70 Respiratory 20 18 20 Rate Blood Pressure 153/66 154/93 164/73 O2 Sat by Pulse 94 L 98 97 Oximetry 10/05/17 10/05/17 01:20 01:45 Temperature 97 F L 98.3 F Pulse Rate 64 66 Respiratory 20 18 Rate Blood Pressure 142/90 144/84 O2 Sat by Pulse 96 97 Oximetry Medical Decision Making - Medical Decision Making Patient is 62-year-old woman with abdominal pain whose workup does reveal that she is having mild exacerbation of pancreatitis. The patient did receive degree of relief from analgesia here. Further discussion revealed that she has been requiring more of her home [place] than his usual and she had run out, therefore will prescribe small amount to bridge her until she is able to refill hers. Also discussed case with her physician Dr. Nguyen, who states that he will have her in the clinic to reevaluate and ensure that there is improvement area patient to call for appointment first thing in the morning. Reviewed follow-up and further care as well as return parameters with the patient. In addition given the white blood cells in the urine despite nitrofurantoin, antibiotic spectrum coverage changed and urine culture sent to ensure susceptibility. - Lab Data Result diagrams: 10/04/17 21:00 10/04/17 21:00 Lab Results 10/04/17 10/04/17 10/04/17 Range/Units 21:00 21:00 21:30 WBC 12.3 H (3.8-10.6) k/uL RBC 5.15 (3.80-5.40) m/uL Hgb 15.0 (11.4-16.0) gm/dL Hct 44.2 (34.0-46.0) % MCV 85.8 (80.0-100.0) fL MCH 29.1 (25.0-35.0) pg MCHC 34.0 (31.0-37.0) g/dL RDW 13.3 (11.5-15.5) % Plt Count 409 (150-450) k/uL Neutrophils % 59 % Lymphocytes % 31 % Monocytes % 6 % Eosinophils % 1 % Basophils % 1 % Neutrophils # 7.3 (1.3-7.7) k/uL Lymphocytes # 3.8 (1.0-4.8) k/uL Monocytes # 0.8 (0-1.0) k/uL Eosinophils # 0.2 (0-0.7) k/uL Basophils # 0.1 (0-0.2) k/uL Sodium 143 (137-145) mmol/L Potassium 3.7 (3.5-5.1) mmol/L Chloride 112 H (98-107) mmol/L Carbon Dioxide 19 L (22-30) mmol/L Anion Gap 12 mmol/L BUN 22 H (7-17) mg/dL Creatinine 0.69 (0.52-1.04) mg/dL Est GFR (MDRD) Af Amer >60 (>60 ml/min/1.73 sqM) Est GFR (MDRD) Non-Af >60 (>60 ml/min/1.73 sqM) Glucose 149 H (74-99) mg/dL Calcium 9.7 (8.4-10.2) mg/dL Total Bilirubin 0.4 (0.2-1.3) mg/dL AST 24 (14-36) U/L ALT 27 (9-52) U/L Alkaline Phosphatase 56 (38-126) U/L Total Protein 6.8 (6.3-8.2) g/dL Albumin 3.8 (3.5-5.0) g/dL Amylase 76 (30-110) U/L Lipase 737 H (23-300) U/L Urine Color Yellow Urine Appearance Cloudy H (Clear) Urine pH 5.5 (5.0-8.0) Ur Specific [place] 1.021 (1.001-1.035) Urine Protein Trace H (Negative) Urine Glucose (UA) Negative (Negative) Urine Ketones Negative (Negative) Urine Blood Negative (Negative) Urine Nitrite Negative (Negative) Urine Bilirubin Negative (Negative) Urine Urobilinogen <2.0 (<2.0) mg/dL Ur Leukocyte Esterase Moderate H (Negative) Urine RBC 6 H (0-5) /hpf Urine WBC 32 H (0-5) /hpf Ur Squamous Epith Cells 1 (0-4) /hpf Hyaline Casts 3 H (0-2) /lpf Urine Mucus Occasional H (None) /hpf - EKG Data -: EKG Interpreted by Me EKG shows normal: sinus rhythm, axis (Normal), intervals (Normal), QRS complexes (Low-voltage QRS complex) Rate: normal (Rate 76 bpm) Interpretation: other (Left anterior fascicular block) Disposition Clinical Impression: Abdominal pain Disposition: HOME SELF-CARE Condition: Fair Instructions: Abdominal Pain (ED) Prescriptions: Amoxicillin/Potassium Clav [Augmentin 875-125 Tablet] 1 tab PO Q12HR #14 tab traMADol HCl [Ultram] 50 mg PO Q6H PRN #15 tab PRN Reason: Pain Referrals: Dick Nguyen MD [Primary Care Provider] - 1-2 days
[2017-10-04] MEDS ORDERED: MORPHINE SULFATE 4 MG/ML SYRINGE IV STA (21:21)
[2017-10-04] MEDS ORDERED: ONDANSETRON 4 MG/2 ML VIAL IVP STA (21:21)
[2017-10-04 21:40] LABS: Basophils # (A) 0.1 k/uL (0-0.2); Basophils % (A) 1 %; Eosinophils # (A) 0.2 k/uL (0-0.7); Eosinophils % (A) 1 %; HCT 44.2 % (34.0-46.0); Lymphocytes # (A) 3.8 k/uL (1.0-4.8); Lymphocytes % (A) 31 %; MCH 29.1 pg (25.0-35.0); MCV 85.8 fL (80.0-100.0); Mean Platelet Volume 7.6; Monocytes # (A) 0.8 k/uL (0-1.0); Monocytes % (A) 6 %; Neutrophils # (A) 7.3 k/uL (1.3-7.7); Neutrophils % (A) 59 %; Platelet Count 409 k/uL (150-450); RBC 5.15 m/uL (3.80-5.40); RDW 13.3 % (11.5-15.5); WBC 12.3 k/uL (3.8-10.6)
[2017-10-04 21:45] LABS: ALT 27 U/L (9-52); AST 24 U/L (14-36); Albumin 3.8 g/dL (3.5-5.0); Alkaline Phosphatase 56 U/L (38-126); Amylase 76 U/L (30-110); Anion Gap 12 mmol/L; Blood Urea Nitrogen 22 mg/dL (7-17); Calcium 9.7 mg/dL (8.4-10.2); Carbon Dioxide 19 mmol/L (22-30); Chloride 112 mmol/L (98-107); Glucose 149 mg/dL (74-99); Lipase 737 U/L (23-300); Potassium 3.7 mmol/L (3.5-5.1); Sodium 143 mmol/L (137-145); Total Bilirubin 0.4 mg/dL (0.2-1.3); Total Protein 6.8 g/dL (6.3-8.2)
[2017-10-04 21:58] LABS: Appearance,Urine Cloudy (Clear); Bilirubin,Urine Negative (Negative); Blood,Urine Negative (Negative); Color,Urine Yellow; Glucose,Urine (UA) Negative (Negative); Hyaline Casts,Urine 3 /lpf (0-2); Ketones,Urine Negative (Negative); Leukocyte Esterase,Urine Moderate (Negative); Mucus,Urine Occasional /hpf; PH, Urine 5.5 (5.0-8.0); Protein,Urine Trace (Negative); RBC,Urine 6 /hpf (0-5); Specific Gravity,Urine 1.021 (1.001-1.035); Squamous Epithelial Cell,Urine 1 /hpf (0-4); Urobilinogen,Urine <2.0 mg/dL (<2.0); WBC,Urine 32 /hpf (0-5)
[2017-10-05] MEDS ORDERED: MORPHINE SULFATE 4 MG/ML SYRINGE IVP STA (00:10)
--- NOTE | 2017-10-05 01:29 | CT ---
EXAMINATION TYPE: CT abdomen pelvis wo con DATE OF EXAM: 10/05/2017 COMPARISON: 07/29/2017 HISTORY: Lower abd pain CT DLP: 1312.20 mGycm Automated exposure control for dose reduction was used. TECHNIQUE: Helical acquisition of images was performed from the lung bases through the pelvis. FINDINGS: There is mild linear density at the lung bases consistent with subsegmental atelectasis. There is an enlarged fluid-filled lower thoracic esophagus. There is no pericardial effusion. There is no pleural effusion. Liver shows no focal defect. There are clips from cholecystectomy. Bile ducts are not dilated. Spleen appears normal. There is no pancreatic mass. There is no adrenal mass. Left kidney is larger than the right. There is some cortical thinning in th e right kidney with a 10 mm calcification at the right renal hilum. There are multiple small calcific ations in the lower pole of the left kidney. There is focal cortical thinning in the lower pole left kidney. There is no retroperitoneal adenopathy. There is no hydronephrosis. Bladder distends smoothly. There is no pelvic mass. I see no intestinal wall thickening. There are no dilated loops. There is a 1.5 cm cortical cyst on the upper pole right kidney. Hysterectomy is noted . I see no bony destructive process. There is minimal atherosclerotic vascular calcification. There i s no ascites. There is no sign of free air. IMPRESSION: MILD SUBSEGMENTAL ATELECTASIS AT THE LUNG BASES. ENLARGED LOWER THORACIC ESOPHAGUS COULD RELATE TO DI STAL ESOPHAGEAL OBSTRUCTION. THIS APPEARS SIMILAR TO OLD EXAM. 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 NONOBSTRUCTING BILATERAL RENAL CALCULI. CORTICAL THINNING LOWER POLE LEFT KIDNEY COULD RELATE TO CHRONIC PYELONEPHRITIS. NO SIGN OF ACUTE ABDOMEN AND PELVIS.
[2017-10-05] MEDS ORDERED: AMOXIC-POT CLAV 875-125MG 1 EACH TAB PO STA (01:35)
[2017-10-05 01:49] VITALS: BP 144/84; PULSE 66; RESP 18; TEMP 98.3
[2017-10-05] MEDS ORDERED: MORPHINE SULFATE 4 MG/ML SYRINGE IV STA (01:51)
== END 2017-10-05 02:05 | disposition home or self-care (01) ==
LOC: EC 20:42
DX: R10.31 Right lower quadrant pain (principal); R10.32 Left lower quadrant pain; E78.5 Hyperlipidemia, unspecified; I10 Essential (primary) hypertension; F17.200 Nicotine dependence, unspecified, uncomplicated; Z90.49 Acquired absence of other specified parts of digestive tract; Z79.82 Long term (current) use of aspirin; Z88.2 Allergy status to sulfonamides; Z88.1 Allergy status to other antibiotic agents
CPT/HCPCS: 36415; 93005; 80053; 82150; 83690; 85025; 81001; 87086; 74176; 99285; 96374; 96375; 96376 ×2; J2270 ×2; J2405

== ENCOUNTER 2017-11-06 13:32 | Observation (INO) | payer OTHER ==
[2017-11-06] MEDS ORDERED: HYDROcodone/APAP 5-325MG 1 EACH TAB PO STA (13:43)
[2017-11-06] MEDS ORDERED: ONDANSETRON 4 MG TAB PO STA (13:46)
[2017-11-06] MEDS ORDERED: ONDANSETRON ODT 4 MG TAB PO STA (13:48)
--- NOTE | 2017-11-06 14:35 | ED ---
General Adult HPI - General Chief complaint: Urogenital Stated complaint: UTI Time Seen by Provider: 11/06/17 13:39 Source: patient, RN notes reviewed, old records reviewed Mode of arrival: EMS Limitations: no limitations - History of Present Illness Initial comments: This is a 8-year-old female to the ER for evaluation patient presents today for evaluation regards to back pain ninth chest pain chronic pain. Patient states she's recently diagnosed urinary tract infection, she does have some continued symptoms of same. Patient ran pain medications as of recent, continuing to say she has pain. Patient taking antibiotics as prescribed - Related Data Home Medications Medication Instructions Recorded Confirmed Fenofibrate 160 mg PO HS 11/15/15 11/06/17 Losartan Potassium [Cozaar] 100 mg PO DAILY 11/15/15 11/06/17 Metoprolol Tartrate [Lopressor] 50 mg PO BID 11/15/15 11/06/17 amLODIPine [Norvasc] 10 mg PO HS 03/08/17 11/06/17 Aspirin EC [Ecotrin] 325 mg PO HS 10/04/17 11/06/17 Previous Rx's Medication Instructions Recorded cloNIDine HCL [Catapres] 0.1 mg PO BID #60 tab 08/08/16 Atorvastatin [Lipitor] 40 mg PO HS #30 tab 07/05/17 Cephalexin [Keflex] 500 mg PO Q12HR #10 cap 11/05/17 Allergies Allergy/AdvReac Type Severity Reaction Status Date / Time sulfamethoxazole Allergy Itching Verified 11/06/17 13:54 [From Septra] trimethoprim [From Septra] Allergy Itching Verified 11/06/17 13:54 levofloxacin [From Levaquin] AdvReac Muscle Pain Verified 11/06/17 13:54 Review of Systems ROS Statement: Those systems with pertinent positive or pertinent negative responses have been documented in the HPI. ROS Other: All systems not noted in ROS Statement are negative. Past Medical History Past Medical History: Diabetes Mellitus, GERD/Reflux, Hyperlipidemia, Hypertension Additional Past Medical History / Comment(s): right Nephrolithiasis, UTI's, patient reports she was once on insulin for diabetes but changed her diet and now does not take anything. occasional vertigo, and R arm fracture with surgery. 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 lithotripsy on left side Past Anesthesia/Blood Transfusion Reactions: No Reported Reaction Additional Past Anesthesia/Blood Transfusion Reaction / Comment(s): Pt received blood in 1978-no reaction reported. Past Psychological History: No Psychological Hx Reported Smoking Status: Current every day smoker Past Alcohol Use History: None Reported Past Drug Use History: None Reported - Past Family History Father Family Medical History: Cancer, Myocardial Infarction ([place]) Additional Family Medical History / Comment(s): Father had lung cancer-went into remission. He of a massive [place] in his 60's Mother Family Medical History: Cancer Additional Family Medical History / Comment(s): Mother of lung cancer at age 54 yrs. General Exam Limitations: no limitations General appearance: alert, in no apparent distress Head exam: Present: atraumatic, normocephalic, normal inspection Eye exam: Present: normal appearance, PERRL, EOMI. Absent: scleral icterus, conjunctival injection, periorbital swelling ENT exam: Present: normal exam, mucous membranes moist Neck exam: Present: normal inspection. Absent: tenderness, meningismus, lymphadenopathy Respiratory exam: Present: normal lung sounds bilaterally. Absent: respiratory distress, wheezes, rales, rhonchi, stridor Cardiovascular Exam: Present: regular rate, normal rhythm, normal heart sounds. Absent: systolic murmur, diastolic murmur, rubs, gallop, clicks GI/Abdominal exam: Present: soft, normal bowel sounds. Absent: distended, tenderness, guarding, rebound, rigid Extremities exam: Present: normal inspection, full ROM, normal capillary refill. Absent: tenderness, pedal edema, joint swelling, calf tenderness Back exam: Present: normal inspection Neurological exam: Present: alert, oriented X3, CN II-XII intact Psychiatric exam: Present: normal affect, normal mood Skin exam: Present: warm, dry, intact, normal color. Absent: rash Course Vital Signs 11/06/17 13:38 Temperature 97.5 F L Pulse Rate 76 Respiratory 16 Rate Blood Pressure 162/97 O2 Sat by Pulse 98 Oximetry - Reevaluation(s) Reevaluation #1: 11/06/17 14:34 Patient has improvement in pain, states she came for medication refill without pain control Medical Decision Making - Medical Decision Making 62 female the ER for evaluation. Back pain pain medication. Recent and continuous urinary tract infection. Patient will continue IV and Robaxin the outpatient basis. Given pain control - Radiology Data Radiology results: report reviewed (CT head and pelvis is negative), image reviewed Disposition Clinical Impression: Urinary tract infection, Abdominal pain, Medication refill Disposition: HOME SELF-CARE Condition: Good Instructions: Urinary Tract Infection in Women (ED), Abdominal Pain (ED) Referrals: Dick Nguyen MD [Primary Care Provider] - 1-2 days
--- NOTE | 2017-11-06 14:49 | CT ---
EXAMINATION TYPE: CT abdomen pelvis wo con DATE OF EXAM: 11/06/2017 HISTORY: Urinary tract infection, bilateral flank pain CT DLP: 1012.50 mGycm. Automated Exposure Control for Dose Reduction was Utilized. TECHNIQUE: CT scan of the abdomen and pelvis is performed without oral or IV contrast. COMPARISON: CT abdomen and pelvis from 2 days ago FINDINGS: Within the limitations of a non-contrast study, the following observations are made. Evalu ation is suboptimal secondary to patient's large body habitus. LUNG BASES: Cardiomegaly is present. Calcifications at level of aortic root are seen and level of khadra ral valve identified. LIVER/GB: Visualized liver is heterogeneously hypodense consistent with fatty infiltration. Prominent right hepatic lobe redemonstrated. Cholecystectomy clips are redemonstrated. PANCREAS: No significant abnormality is seen. SPLEEN: No significant abnormality is seen. ADRENALS: No significant abnormality is seen. KIDNEYS: There is redemonstration of 4 mm calculus lower pole level left kidney. There is areas of co rtical scarring throughout the left kidney. There is asymmetric diminished size and cortical thinning of right kidney. There is a larger staghorn type calculus measuring 11 mm filling lower pole calyx c oronal image 60. No hydronephrosis or obstructing renal calculi are present bilaterally. BOWEL: Evaluation of bowel is suboptimal secondary to lack of enteric contrast. There is no suspiciou s small or large bowel dilatation. There is mild wall thickening involving majority of colon excludin g portions of sigmoid and rectum. Finding could be product of nondistention, mild colitis should be e xcluded clinically. GENITAL ORGANS: Uterus is surgically absent or markedly atrophic in appearance. There are some small left-sided pelvic phleboliths. There are phleboliths along course of the right ovarian vein. LYMPH NODES: No greater than 1cm abdominal or pelvic lymph nodes are appreciated. OSSEOUS STRUCTURES: No significant abnormality is seen. OTHER: Vertical density along the rectus sheath is uncertain etiology. Could reflect product of prior surgery for hernia. No recurrent hernia is evident. IMPRESSION: Possible mild long segment colitis versus product of poor distention. Correlate clinicall y. Redemonstration of nonobstructing renal calculi. No hydronephrosis or obstructing renal calculi ev ident bilaterally.
[2017-11-06] MEDS ORDERED: SODIUM CHLORIDE 0.9% 500 ML IV STA (15:15)
[2017-11-06] MEDS ORDERED: SODIUM CHLORIDE 0.9% 1,000 ML IV ONE (15:15)
[2017-11-06] MEDS ORDERED: SODIUM CHLORIDE 0.9% 1,000 ML IV STA (15:15)
[2017-11-06] MEDS ORDERED: MORPHINE SULFATE 4MG/4ML SYRG IVP STA (15:17)
[2017-11-06] MEDS: ONDANSETRON 4 MG/2 ML VIAL IVP PRN ×2 (15:48→23:32)
[2017-11-06 16:02] LABS: Basophils # (A) 0.1 k/uL (0-0.2); Basophils % (A) 1 %; Eosinophils # (A) 0.2 k/uL (0-0.7); Eosinophils % (A) 2 %; HCT 45.1 % (34.0-46.0); HGB 15.1 gm/dL (11.4-16.0); Lymphocytes # (A) 3.6 k/uL (1.0-4.8); Lymphocytes % (A) 29 %; MCH 28.1 pg (25.0-35.0); MCHC 33.4 g/dL (31.0-37.0); MCV 84.2 fL (80.0-100.0); Mean Platelet Volume 8.2; Monocytes # (A) 0.5 k/uL (0-1.0); Monocytes % (A) 4 %; Neutrophils # (A) 8.1 k/uL (1.3-7.7); Neutrophils % (A) 64 %; Platelet Count 520 k/uL (150-450); RBC 5.36 m/uL (3.80-5.40); RDW 13.5 % (11.5-15.5); WBC 12.6 k/uL (3.8-10.6)
[2017-11-06 16:12] LABS: ALT 30 U/L (9-52); AST 32 U/L (14-36); Albumin 4.2 g/dL (3.5-5.0); Alkaline Phosphatase 60 U/L (38-126); Amylase 62 U/L (30-110); Anion Gap 17 mmol/L; Blood Urea Nitrogen 19 mg/dL (7-17); Calcium 10.1 mg/dL (8.4-10.2); Carbon Dioxide 18 mmol/L (22-30); Chloride 108 mmol/L (98-107); Glucose 98 mg/dL (74-99); Lipase 509 U/L (23-300); Sodium 143 mmol/L (137-145); Total Bilirubin 0.4 mg/dL (0.2-1.3); Total Protein 7.3 g/dL (6.3-8.2)
[2017-11-06 17:44] LABS: Appearance,Urine Clear (Clear); Bilirubin,Urine Negative (Negative); Blood,Urine Negative (Negative); Color,Urine Yellow; Glucose,Urine (UA) Negative (Negative); Ketones,Urine Negative (Negative); Leukocyte Esterase,Urine Negative (Negative); Nitrite,Urine Negative (Negative); PH, Urine 5.5 (5.0-8.0); Protein,Urine Trace (Negative); Specific Gravity,Urine 1.021 (1.001-1.035); Urobilinogen,Urine <2.0 mg/dL (<2.0)
[2017-11-06] MEDS: MORPHINE ORAL SOLN 10 MG/5 ML CUP PO SCH ×3 (19:14→23:10)
[2017-11-06 19:32] VITALS: BMI 29.8
[2017-11-06] MEDS ORDERED: METOPROLOL TARTRATE 50 MG TAB PO STA (19:53)
[2017-11-06] MEDS ORDERED: cloNIDine HCL 0.1 MG TAB PO STA (19:54)
[2017-11-06 20:24] LABS: Glucose,Whole Blood 104 mg/dL (75-99)
[2017-11-06] MEDS: ATORVASTATIN 40 MG TAB PO SCH (20:58)
[2017-11-06] MEDS: ASPIRIN 325 MG TAB PO SCH (20:58)
[2017-11-06] MEDS: KETOROLAC 30 MG/ML 1 ML VIAL IVP PRN (20:59)
[2017-11-06] MEDS: FENOFIBRATE 160 MG TAB PO SCH (20:59)
[2017-11-06] MEDS: amLODIPine 10 MG TAB PO SCH (20:59)
[2017-11-07] MEDS: MORPHINE ORAL SOLN 10 MG/5 ML CUP PO SCH ×2 (03:10→07:51)
[2017-11-07] MEDS: KETOROLAC 30 MG/ML 1 ML VIAL IVP PRN ×2 (03:10→10:38)
[2017-11-07 05:55] LABS: Glucose,Whole Blood 131 mg/dL (75-99)
[2017-11-07] MEDS ORDERED: KETOROLAC 30 MG/ML 1 ML VIAL IVP PRN (11:17)
[2017-11-07] MEDS: FAMOTIDINE 20 MG/2 ML VIAL IV SCH ×2 (11:49→21:31)
[2017-11-07 11:58] LABS: Glucose,Whole Blood 130 mg/dL (75-99)
--- NOTE | 2017-11-07 12:03 | P.HPIM ---
History of Present Illness 62-year-old female came in with comments of back pain [id number] pain in the back radiating to both the thighs thighs patient denied dysuria nausea vomiting patient was recently treated for urinary tract infection patient UA is essentially within normal limits patient appears to have chronic low back pain morphine never helps her patient apparently had urinary retention because of which are fully catheter was placed through be discontinued will monitor. Patient was started on Keppra leg dose will be increased patient has unilateral kidney because of which we have to be careful with tenderness states. Pain management was consulted patient had a neck surgery for degenerative neck disease. Patient doesn't have any weakness and bilateral lower limbs patient is a bilateral amputee. Review of Systems REVIEW OF SYSTEMS: CONSTITUTIONAL: No fever, no malaise, no fatigue. HEENT: No recent visual problems or hearing problems. Denied any sore throat. CARDIOVASCULAR: No chest pain, orthopnea, PND, no palpitations, no syncope. PULMONARY: No shortness of breath, no cough, no hemoptysis. GASTROINTESTINAL: No diarrhea, no nausea, no vomiting, no abdominal pain. Normoactive bowel sounds. NEUROLOGICAL: No headaches, no weakness, no numbness. HEMATOLOGICAL: Denies any bleeding or petechiae. GENITOURINARY: Denies any burning micturition, frequency, or urgency. MUSCULOSKELETAL/RHEUMATOLOGICAL: Back pain as mentioned above ENDOCRINE: Denies any polyuria or polydipsia. The rest of the 14-point review of systems is negative. Past Medical History Past Medical History: GERD/Reflux, Hyperlipidemia, Hypertension Additional Past Medical History / Comment(s): right Nephrolithiasis, UTI's, patient reports she was once on insulin for diabetes but changed her diet and now does not take anything. occasional vertigo, and R arm fracture with surgery. 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 lithotripsy on left side Past Anesthesia/Blood Transfusion Reactions: No Reported Reaction Additional Past Anesthesia/Blood Transfusion Reaction / Comment(s): Pt received blood in 1978-no reaction reported. Past Psychological History: Anxiety Additional Psychological History / Comment(s): Pt has had anxiety and panic attacks in the past but states no longer a problem. She resides with her spouse. She is independent. She in a bilateral AKA and gets around in a power wheelchair. She no longer drives but her spouse drives. Smoking Status: Current every day smoker Past Alcohol Use History: None Reported Additional Past Alcohol Use History / Comment(s): Pt states she started smoking at age 18 yrs and a pack will last her 2 days. Past Drug Use History: None Reported - Past Family History Father Family Medical History: Cancer, Myocardial Infarction ([place]) Additional Family Medical History / Comment(s): Father had lung cancer-went into remission. He of a massive [place] in his 60's Mother Family Medical History: Cancer Additional Family Medical History / Comment(s): Mother of lung cancer at age 54 yrs. Medications and Allergies Home Medications Medication Instructions Recorded Confirmed Type Fenofibrate 160 mg PO HS 11/15/15 11/06/17 History Losartan Potassium [Cozaar] 100 mg PO DAILY 11/15/15 11/06/17 History Metoprolol Tartrate [Lopressor] 50 mg PO BID 11/15/15 11/06/17 History cloNIDine HCL [Catapres] 0.1 mg PO BID #60 tab 08/08/16 11/06/17 Rx amLODIPine [Norvasc] 10 mg PO HS 03/08/17 11/06/17 History Atorvastatin [Lipitor] 40 mg PO HS #30 tab 07/05/17 11/06/17 Rx Aspirin EC [Ecotrin] 325 mg PO HS 10/04/17 11/06/17 History Cephalexin [Keflex] 500 mg PO Q12HR #10 cap 11/05/17 11/06/17 Rx HYDROcodone/APAP 10-325MG [[place] 2 tab PO Q4-6H PRN 11/06/17 11/06/17 History 10-325] HYDROcodone/APAP 5-325MG [[place] 1 tab PO Q6HR PRN #20 tab 11/06/17 Rx 5-325] Allergies Allergy/AdvReac Type Severity Reaction Status Date / Time sulfamethoxazole Allergy Itching Verified 11/06/17 13:54 [From ] trimethoprim [From Septra] Allergy Itching Verified 11/06/17 13:54 levofloxacin [From Levaquin] AdvReac Muscle Pain Verified 11/06/17 13:54 Physical Exam Vitals: Vital Signs Temp Pulse Pulse Resp BP BP Pulse Ox 11/07/17 07:00 98.4 F 61 18 149/66 95 11/07/17 04:45 98.2 F 62 18 135/71 95 11/07/17 02:33 140/74 11/06/17 21:01 98.6 F 79 18 169/80 95 11/06/17 18:13 98.0 F 72 16 168/79 97 11/06/17 15:51 97.1 F L 76 22 163/82 95 11/06/17 13:38 97.5 F L 76 16 162/97 98 Intake and Output 11/06/17 11/07/17 11/07/17 22:59 06:59 14:59 Intake Total 500 Output Total 550 Balance -50 Intake: IV 500 Sodium Chloride 0.9% 1, 500 000 ml @ 100 mls/hr IV . Q10H ONE Rx#:[id number] Output: Urine 550 Uretheral ([place]) 550 Other: Voiding Method Indwelling Catheter Indwelling Catheter # Voids 0 0 Weight 86.5 kg PHYSICAL EXAMINATION: GENERAL: The patient is alert and oriented x3, not in any acute distress. Well developed, well nourished. HEENT: Pupils are round and equally reacting to light. EOMI. No scleral icterus. No conjunctival pallor. Normocephalic, atraumatic. No pharyngeal erythema. No thyromegaly. CARDIOVASCULAR: S1 and S2 present. No murmurs, rubs, or gallops. PULMONARY: Chest is clear to auscultation, no wheezing or crackles. ABDOMEN: Soft, nontender, nondistended, normoactive bowel sounds. No palpable organomegaly. MUSCULOSKELETAL: No joint swelling or deformity. Patient does have paraspinal tenderness in lumbar spinal area. EXTREMITIES: No cyanosis, clubbing, or pedal edema. NEUROLOGICAL: Gross neurological examination did not reveal any focal deficits. SKIN: No rashes. Results CBC & Chem 7: 11/06/17 15:40 11/06/17 15:40 Labs: Abnormal Lab Results - Last 24 Hours (Table) 11/06/17 11/06/1718 Range/Units 15:40 15:40 17:35 WBC 12.6 H (3.8-10.6) k/uL Plt Count 520 H (150-450) k/uL Neutrophils # 8.1 H (1.3-7.7) k/uL Chloride 108 H (98-107) mmol/L Carbon Dioxide 18 L (22-30) mmol/L BUN 19 H (7-17) mg/dL POC Glucose (mg/dL) (75-99) mg/dL Lipase 509 H (23-300) U/L Urine Protein Trace H (Negative) 11/06/17 11/07/17 Range/Units 20:22 05:54 WBC (3.8-10.6) k/uL Plt Count (150-450) k/uL Neutrophils # (1.3-7.7) k/uL Chloride (98-107) mmol/L Carbon Dioxide (22-30) mmol/L BUN (7-17) mg/dL POC Glucose (mg/dL) 104 H 131 H (75-99) mg/dL Lipase (23-300) U/L Urine Protein (Negative) Microbiology - Last 24 Hours (Table) 11/06/17 17:35 Urine Culture - Preliminary Urine,Catheterized Thrombosis Risk Factor Assmnt - Choose All That Apply Any of the Below Risk Factors Present?: Yes Each Factor Represents 1 point: Age 41-60 years, Medical pt on bed rest, Obesity (BMI >25) Other Risk Factors: Yes Each Risk Factor Represents 2 Points: Patient confined to bed Other congenital or acquired thrombophilia - If yes, enter type in comment: No Thrombosis Risk Factor Assessment Total Risk Factor Score: 5 Thrombosis Risk Factor Assessment Level: High Risk Assessment and Plan Plan: -Low back pain acute on chronic: Patient will be on pain medications patient doesn't have any increased weakness, patient doesn't have metabolic incontinence but does have urinary retention. No significant acute abnormality was appreciated regarding her spine on the CAT scan of the abdomen. Mild colitis was seen but patient doesn't have any symptoms of colitis at this point of time and decided there is some nonobstructive renal calculi. Which may be contributing to her pain as well -Nonobstructive renal calculi pain management IV fluids. 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 Nguyen decide about a surgical consultation as an outpatient will need physical therapy. -Gastroesophageal reflux disease -Hyperlipidemia
[2017-11-07] MEDS: HYDROcodone/APAP 10-325MG 1 EACH TAB PO PRN ×3 (13:32→21:30)
[2017-11-07] MEDS: HEPARIN SODIUM,PORCINE 5,000 UNIT/ML 1 ML VIAL SQ SCH (15:58)
[2017-11-07 17:16] LABS: Glucose,Whole Blood 138 mg/dL (75-99)
[2017-11-07 18:16] LABS: Hemoglobin A1C 6.2 % (4.0-6.0)
[2017-11-07 20:09] LABS: Glucose,Whole Blood 133 mg/dL (75-99)
[2017-11-07] MEDS ORDERED: cloNIDine HCL 0.1 MG TAB PO SCH (21:00)
[2017-11-07] MEDS: ASPIRIN 325 MG TAB PO SCH (21:30)
[2017-11-07] MEDS: amLODIPine 10 MG TAB PO SCH (21:30)
[2017-11-07] MEDS: METOPROLOL TARTRATE 50 MG TAB PO SCH (21:30)
[2017-11-07] MEDS: FENOFIBRATE 160 MG TAB PO SCH (21:30)
[2017-11-07] MEDS: ATORVASTATIN 40 MG TAB PO SCH (21:30)
[2017-11-08] MEDS: HYDROcodone/APAP 10-325MG 1 EACH TAB PO PRN ×5 (01:37→20:02)
[2017-11-08] MEDS: ONDANSETRON 4 MG/2 ML VIAL IVP PRN ×2 (01:39→20:45)
[2017-11-08 07:13] LABS: Glucose,Whole Blood 82 mg/dL (75-99)
--- NOTE | 2017-11-08 08:16 | P.PN ---
Subjective Progress Note Date: 11/08/17 Principal diagnosis: This is a continue process on a 62-year-old white female with here for urinary retention. She still is somewhat struggling with urinary flow but feels much better. No sniffing chest pain. She has worsening back pain. No nausea, vomiting or diarrhea is stated. Objective - Vital Signs Vital signs: Vital Signs Temp 97.8 F 11/08/17 07:00 Pulse 61 11/08/17 07:00 Resp 18 11/08/17 07:00 BP 153/82 11/08/17 07:00 Pulse Ox 95 11/08/17 07:00 Intake & Output 11/07/17 11/08/17 11/08/17 18:59 06:59 18:59 Output Total 700 Balance -700 Output: Urine 700 Uretheral ([place]) 700 Other: Voiding Method Bedside Commode Bedside Commode # Voids 1 # Bowel Movements 0 - Constitutional General appearance: Present: obese - EENT Eyes: Present: PERRLA. Absent: abnormal pupil - Neck Neck: Absent: lymphadenopathy - Respiratory Respiratory: bilateral: CTA - Cardiovascular Rhythm: regular Heart sounds: normal: S1, S2 Abnormal Heart Sounds: Absent: S3 Gallop - Gastrointestinal General gastrointestinal: Present: soft. Absent: tenderness - Musculoskeletal Musculoskeletal: Absent: generalized weakness - Psychiatric Psychiatric: Present: A&O x's 3 - Labs CBC & Chem 7: 11/06/17 15:40 11/06/17 15:40 Labs: Abnormal Lab Results - Last 24 Hours (Table) 11/06/17 11/07/17 11/07/17 Range/Units 15:40 11:56 17:15 POC Glucose (mg/dL) 130 H 138 H (75-99) mg/dL Hemoglobin A1c 6.2 H (4.0-6.0) % 11/07/17 Range/Units 20:07 POC Glucose (mg/dL) 133 H (75-99) mg/dL Hemoglobin A1c (4.0-6.0) % Microbiology - Last 24 Hours (Table) 11/06/17 17:35 Urine Culture - Final Urine,Catheterized Assessment and Plan (1) Abdominal pain Current Visit: Yes Status: Acute Code(s): R10.9 - UNSPECIFIED ABDOMINAL PAIN SNOMED Code(s): 01032784 (2) UTI (urinary tract infection) Current Visit: Yes Status: Acute Code(s): N39.0 - URINARY TRACT INFECTION, SITE NOT SPECIFIED SNOMED Code(s): 86387850 (3) Abdominal pain Current Visit: No Status: Acute Code(s): R10.9 - UNSPECIFIED ABDOMINAL PAIN SNOMED Code(s): 03699532 (4) Urinary retention Current Visit: No Status: Acute Code(s): R33.9 - RETENTION OF URINE, UNSPECIFIED SNOMED Code(s): 332854069 (5) Urinary tract infection Current Visit: No Status: Acute Priority: High Code(s): N39.0 - URINARY TRACT INFECTION, SITE NOT SPECIFIED SNOMED Code(s): 22251413 (6) Amputated left leg Current Visit: No Status: Chronic Code(s): Z89.612 - ACQUIRED ABSENCE OF LEFT LEG ABOVE KNEE SNOMED Code(s): 465858535 (7) Amputated right leg Current Visit: No Status: Chronic Code(s): Z89.611 - ACQUIRED ABSENCE OF RIGHT LEG ABOVE KNEE SNOMED Code(s): 145546665 Plan: Urinary retention is improving. History of recurrent chronic UTI. Nonobstructing renal calculus. Follow closely today. Anticipate discharge in a.m. The patient told we will try to control her back pain today. Time with Patient: Less than 30
[2017-11-08] MEDS: FAMOTIDINE 20 MG/2 ML VIAL IV SCH (08:24)
[2017-11-08] MEDS: METOPROLOL TARTRATE 50 MG TAB PO SCH ×2 (08:24→20:03)
[2017-11-08] MEDS: LOSARTAN 50 MG TAB PO SCH (08:24)
[2017-11-08] MEDS: HEPARIN SODIUM,PORCINE 5,000 UNIT/ML 1 ML VIAL SQ SCH ×4 (08:24→23:20)
[2017-11-08] MEDS ORDERED: SENNOSIDES 8.6 MG TAB PO PRN (10:54)
[2017-11-08 11:39] LABS: Glucose,Whole Blood 124 mg/dL (75-99)
[2017-11-08] MEDS: DOCUSATE 100 MG CAP PO SCH ×2 (11:55→20:02)
[2017-11-08 17:16] LABS: Glucose,Whole Blood 120 mg/dL (75-99)
[2017-11-08 19:55] LABS: Glucose,Whole Blood 137 mg/dL (75-99)
[2017-11-08] MEDS: FAMOTIDINE 20 MG TAB PO SCH (20:02)
[2017-11-08] MEDS: ASPIRIN 325 MG TAB PO SCH (20:03)
[2017-11-08] MEDS: FENOFIBRATE 160 MG TAB PO SCH (20:03)
[2017-11-08] MEDS: ATORVASTATIN 40 MG TAB PO SCH (20:03)
[2017-11-08] MEDS: amLODIPine 10 MG TAB PO SCH (20:03)
[2017-11-09] MEDS: HYDROcodone/APAP 10-325MG 1 EACH TAB PO PRN ×4 (00:47→13:09)
[2017-11-09] MEDS: ONDANSETRON 4 MG/2 ML VIAL IVP PRN ×2 (03:52→11:48)
[2017-11-09 06:28] LABS: Glucose,Whole Blood 108 mg/dL (75-99)
[2017-11-09 07:43] LABS: HCT 40.4 % (34.0-46.0); HGB 13.4 gm/dL (11.4-16.0); MCH 28.5 pg (25.0-35.0); MCHC 33.3 g/dL (31.0-37.0); MCV 85.7 fL (80.0-100.0); Mean Platelet Volume 8.5; Platelet Count 419 k/uL (150-450); RBC 4.72 m/uL (3.80-5.40); RDW 13.6 % (11.5-15.5); WBC 10.6 k/uL (3.8-10.6)
[2017-11-09 07:57] VITALS: RESP 17; TEMP 98.2
[2017-11-09 08:06] LABS: ALT 29 U/L (9-52); AST 17 U/L (14-36); Albumin 3.5 g/dL (3.5-5.0); Alkaline Phosphatase 54 U/L (38-126); Anion Gap 12 mmol/L; Blood Urea Nitrogen 29 mg/dL (7-17); Calcium 9.4 mg/dL (8.4-10.2); Carbon Dioxide 22 mmol/L (22-30); Chloride 107 mmol/L (98-107); Glucose 94 mg/dL (74-99); Potassium 4.9 mmol/L (3.5-5.1); Sodium 141 mmol/L (137-145); Total Bilirubin 0.2 mg/dL (0.2-1.3); Total Protein 6.1 g/dL (6.3-8.2)
--- NOTE | 2017-11-09 09:01 | P.DS ---
Providers Date of admission: 11/06/17 15:15 Attending physician: Dick Nguyen Primary care physician: Dick Nguyen - Discharge Diagnosis(es) (1) Abdominal pain Current Visit: Yes Status: Acute (2) UTI (urinary tract infection) Current Visit: Yes Status: Acute (3) Abdominal pain Current Visit: No Status: Acute (4) Urinary retention Current Visit: No Status: Acute (5) Urinary tract infection Current Visit: No Status: Acute Priority: High (6) Amputated left leg Current Visit: No Status: Chronic (7) Amputated right leg Current Visit: No Status: Chronic Hospital Course: This is discharge summary on a 62-year-old white female with a history of bilateral amputation and history of nonobstructing nephrolithiasis, who has an underlying history of urinary retention. The patient was essentially admitted for this but now this has resolved. She actually has some intermittent incontinence. But she struggles with mainly muscle aches and pains also rated we will discharge home on appropriate hydrocodone and the patient is to follow me in approximately 1-2 weeks. Patient Condition at Discharge: Good Plan - Discharge Summary New Discharge Prescriptions: New RX: HYDROcodone/APAP 5-325MG [[place] 5-325] 1 tab PO Q6HR PRN #20 tab PRN Reason: Pain Continue RX: Metoprolol Tartrate [Lopressor] 50 mg PO BID RX: Losartan Potassium [Cozaar] 100 mg PO DAILY RX: Fenofibrate 160 mg PO HS RX: cloNIDine HCL [Catapres] 0.1 mg PO BID #60 tab RX: amLODIPine [Norvasc] 10 mg PO HS RX: Atorvastatin [Lipitor] 40 mg PO HS #30 tab RX: Aspirin EC [Ecotrin] 325 mg PO HS RX: Cephalexin [Keflex] 500 mg PO Q12HR #10 cap Changed RX: HYDROcodone/APAP 10-325MG [[place] 10-325] 1 tab PO Q4-6H PRN #150 tab PRN Reason: Pain Discharge Medication List RX: Fenofibrate 160 mg PO HS 11/15/15 [History] RX: Losartan Potassium [Cozaar] 100 mg PO DAILY 11/15/15 [History] RX: Metoprolol Tartrate [Lopressor] 50 mg PO BID 11/15/15 [History] RX: cloNIDine HCL [Catapres] 0.1 mg PO BID #60 tab 08/08/16 [Rx] RX: amLODIPine [Norvasc] 10 mg PO HS 03/08/17 [History] RX: Atorvastatin [Lipitor] 40 mg PO HS #30 tab 07/05/17 [Rx] RX: Aspirin EC [Ecotrin] 325 mg PO HS 10/04/17 [History] RX: HYDROcodone/APAP 5-325MG [[place] 5-325] 1 tab PO Q6HR PRN #20 tab 11/06/17 [ Rx] RX: Cephalexin [Keflex] 500 mg PO Q12HR #10 cap 11/09/17 [Rx] RX: HYDROcodone/APAP 10-325MG [[place] 10-325] 1 tab PO Q4-6H PRN #150 tab [Rx] Follow up Appointment(s)/Referral(s): Dick Nguyen MD [Primary Care Provider] - 1-2 days [facility], [NON-STAFF] - 1 Week Patient Instructions/Handouts: Urinary Tract Infection in Women (ED), Abdominal Pain (ED) Discharge Disposition: HOME WITH HOME HEALTH SERVICES
[2017-11-09] MEDS: FAMOTIDINE 20 MG TAB PO SCH (09:10)
[2017-11-09] MEDS: HEPARIN SODIUM,PORCINE 5,000 UNIT/ML 1 ML VIAL SQ SCH (09:10)
[2017-11-09] MEDS: DOCUSATE 100 MG CAP PO SCH (09:10)
[2017-11-09] MEDS: METOPROLOL TARTRATE 50 MG TAB PO SCH (09:11)
[2017-11-09] MEDS: LOSARTAN 50 MG TAB PO SCH (09:11)
[2017-11-09 11:33] LABS: Glucose,Whole Blood 130 mg/dL (75-99)
[2017-11-09 13:19] VITALS: BP 161/95; PULSE 75
== END 2017-11-09 16:25 | disposition home or self-care (01) ==
LOC: EC 13:32 → 5MS5E 15:15
PROVIDERS: ADMIT Family Medicine; ATTEND Family Medicine
DX: N39.0 Urinary tract infection, site not specified (principal); G89.29 Other chronic pain; K21.9 Gastro-esophageal reflux disease without esophagitis; I10 Essential (primary) hypertension; E78.5 Hyperlipidemia, unspecified; E11.9 Type 2 diabetes mellitus without complications; M54.5 Low back pain; R33.9 Retention of urine, unspecified; R32 Unspecified urinary incontinence; N20.0 Calculus of kidney; Q60.0 Renal agenesis, unilateral; G31.89 Other specified degenerative diseases of nervous system; Z79.899 Other long term (current) drug therapy; Z79.82 Long term (current) use of aspirin; Z88.1 Allergy status to other antibiotic agents; Z88.2 Allergy status to sulfonamides; Z87.442 Personal history of urinary calculi; Z87.440 Personal history of urinary (tract) infections; Z89.612 Acquired absence of left leg above knee; Z89.611 Acquired absence of right leg above knee; Z98.1 Arthrodesis status; F17.200 Nicotine dependence, unspecified, uncomplicated; Z80.1 Family history of malignant neoplasm of trachea, bronchus and lung; Z82.49 Family history of ischemic heart disease and other diseases of the circulatory system; Z99.3 Dependence on wheelchair; Z74.01 Bed confinement status; E66.9 Obesity, unspecified; Z68.29 Body mass index [BMI] 29.0-29.9, adult
CPT/HCPCS: 36415; 51798; 74176; 80053; 81003; 82150; 83036; 83690; 85025; 85027; 87086; 96361; 96372; 96374; 96375; 96376; 99285

== ENCOUNTER → 2017-12-03 | Outpatient (CLI) | payer OTHER ==
--- NOTE | 2017-12-06 11:21 | MM ---
Reason for exam: screening (asymptomatic). Last mammogram was performed 2 years ago. History: Patient is postmenopausal. Family history of breast cancer in maternal aunt. Benign US RT VAD breast biopsy of the right breast, January 06, 2013. Physical Findings: A clinical breast exam by your physician is recommended on an annual basis and results should be correlated with mammographic findings. MG Screening Mammo w CAD Bilateral CC and MLO view(s) were taken. Prior study comparison: December 09, 2015, bilateral MG screening mammo w CAD. January 06, 2013, right breast diagnostic digital migdalia. There is a 3mm mass upper outer quadrant left breast at a middle depth 6cm from nipple on CC view. No suspicious abnormality in the right breast. Right biopsy marker noted. ASSESSMENT: Incomplete: need additional imaging evaluation, BI-RAD 0 RECOMMENDATION: Special view mammogram of the left breast. If lesion persists on supplemental views, image directed ultrasound is recommended. [facility] will attempt to contact patient to return for supplemental views and ultrasound if indicated.
== END | disposition home or self-care (01) ==
LOC: RADMAMWWP 14:36
PROVIDERS: ATTEND Family Medicine
DX: Z12.31 Encounter for screening mammogram for malignant neoplasm of breast (principal)
CPT/HCPCS: 77067

== ENCOUNTER → 2017-12-14 | Outpatient (CLI) | payer OTHER ==
--- NOTE | 2017-12-14 14:33 | MM ---
Reason for exam: additional evaluation requested from abnormal screening. Last mammogram was performed less than 1 month ago. History: Patient is postmenopausal. Family history of breast cancer in maternal aunt. Benign US RT VAD breast biopsy of the right breast, January 06, 2013. Physical Findings: Nurse did not find any significant physical abnormalities on exam. MG Work Up Mamm w CAD LT Spot compression CC, spot compression MLO, and LM view(s) were taken of the left breast. Prior study comparison: December 03, 2017, bilateral MG screening mammo w CAD. December 09, 2015, bilateral MG screening mammo w CAD. The breast tissue is heterogeneously dense. This may lower the sensitivity of mammography. The focal asymmetry appears similar to the prior exams. The previously seen calcification on 2015 may have been on the skin at it is no longer present. These results were verbally communicated with the patient and result sheet given to the patient on 12/14/17. ASSESSMENT: Negative, BI-RAD 1 RECOMMENDATION: Return to routine screening mammogram schedule for both breasts.
== END | disposition home or self-care (01) ==
LOC: RADMAMWWP 13:31
PROVIDERS: ATTEND Family Medicine
DX: R92.8 Other abnormal and inconclusive findings on diagnostic imaging of breast (principal)
CPT/HCPCS: 77065

== ENCOUNTER 2018-01-20 11:02 | Inpatient (IN) | payer OTHER ==
[2018-01-20] MEDS ORDERED: SODIUM CHLORIDE 0.9% 1,000 ML IV STA (11:25)
[2018-01-20] MEDS ORDERED: cefTRIAXone IN SWFI 2,000 MG/20 ML SYRINGE IVP STA (11:25)
[2018-01-20] MEDS ORDERED: MORPHINE SULFATE 2 MG/ML SYRINGE IVP STA ×2 (11:29→13:02)
[2018-01-20] MEDS ORDERED: ONDANSETRON 4 MG/2 ML VIAL IVP STA ×2 (11:30→13:02)
[2018-01-20 12:10] LABS: Basophils # (A) 0.1 k/uL (0-0.2); Basophils % (A) 1 %; Eosinophils # (A) 0.1 k/uL (0-0.7); Eosinophils % (A) 1 %; HCT 42.6 % (34.0-46.0); HGB 14.7 gm/dL (11.4-16.0); Lymphocytes # (A) 2.7 k/uL (1.0-4.8); Lymphocytes % (A) 26 %; MCH 29.2 pg (25.0-35.0); MCHC 34.5 g/dL (31.0-37.0); MCV 84.4 fL (80.0-100.0); Mean Platelet Volume 7.7; Monocytes # (A) 0.5 k/uL (0-1.0); Monocytes % (A) 5 %; Neutrophils # (A) 6.7 k/uL (1.3-7.7); Neutrophils % (A) 66 %; Platelet Count 439 k/uL (150-450); RBC 5.04 m/uL (3.80-5.40); RDW 13.8 % (11.5-15.5); WBC 10.1 k/uL (3.8-10.6)
--- NOTE | 2018-01-20 12:22 | XR ---
EXAMINATION TYPE: XR chest 2V DATE OF EXAM: 01/20/2018 COMPARISON: 11/04/2017 HISTORY: Chest pain TECHNIQUE: Frontal and lateral views of the chest are obtained. FINDINGS: There is improved degree of pleural effusions in comparison to the prior, now trace. Cardi omegaly remains. No pulmonary edema or pulmonary vascular congestion. There is partial visualization of a cervical fusion device. Minimal degenerative changes of the thoracic spine are seen. No new foca l consolidation within the chest or pneumothorax. IMPRESSION: Redemonstration of cardiomegaly and improved pleural effusions. No new focal consolidati on.
[2018-01-20 12:25] LABS: INR 1.1 (<1.2)
[2018-01-20 12:26] LABS: D-Dimer 0.33 mg/L FEU (<0.60); Partial Thromboplastin Time 24.7 sec (22.0-30.0); Prothrombin Time 10.4 sec (9.0-12.0)
[2018-01-20 12:32] LABS: ALT 35 U/L (9-52); AST 21 U/L (14-36); Albumin 3.9 g/dL (3.5-5.0); Alkaline Phosphatase 49 U/L (38-126); Anion Gap 10 mmol/L; Blood Urea Nitrogen 19 mg/dL (7-17); C Reactive Protein 5.9 mg/L (<10.0); Calcium 9.5 mg/dL (8.4-10.2); Carbon Dioxide 21 mmol/L (22-30); Chloride 110 mmol/L (98-107); Glucose 112 mg/dL (74-99); Potassium 4.2 mmol/L (3.5-5.1); Sodium 141 mmol/L (137-145); Total Bilirubin 0.3 mg/dL (0.2-1.3); Total Protein 6.5 g/dL (6.3-8.2)
[2018-01-20 12:37] LABS: Creatine Kinase 46 U/L (30-135)
[2018-01-20 12:49] LABS: Creatine Kinase MB 0.5 ng/mL (0.0-2.4); Troponin I <0.012 ng/mL (0.000-0.034)
--- NOTE | 2018-01-20 13:14 | CT ---
EXAMINATION TYPE: CT abdomen pelvis w con DATE OF EXAM: 01/20/2018 COMPARISON: 11/06/2017, 10/05/2017 HISTORY: Patient complains of LLQ pain, nausea, vomiting, and diarrhea. CT DLP: 1458.3 mGycm Automated exposure control for dose reduction was used. CONTRAST: CT scan of the abdomen pelvis is performed with IV Contrast, patient injected with 100 mL of Isovue 3 00. FINDINGS- LUNG BASES-the heart is prominent. There is a calcification near the expected location of the mitral valve correlate clinically.. LIVER/GB-postcholecystectomy changes are noted. Liver somewhat heterogeneous attenuation should be co rrelated with liver function exams.. PANCREAS- No gross abnormality is seen. SPLEEN- No gross abnormality is seen. ADRENALS- No gross abnormality is seen. KIDNEYS/BLADDER-upper pole right renal lesions measures less than a centimeter and are stable from pr ior exams but too small to characterize. There remains a renal pelvic calcification on the right iraida uring approximately 1.1 cm. Atrophic change of the right kidney noted. There is lobulation of loss of renal cortex on the left suggestive of chronic medical renal disease. There is a calcification involving the lower pole infundibulum measuring 3 mm. No hydronephrosis bilaterally. BOWEL-there is a hiatal hernia. Esophageal wall is thickened but within the distal esophagus correlat e for esophagitis or mucosal lesion. Reflux in the differential. Bowel gas pattern is nonspecific wit h no diagnostic evidence of obstruction. However, there are few prominent small bowel loops in the up per abdomen may represent a localized ileus or enteritis correlate clinically. LYMPH NODES- No greater than 1cm abdominal or pelvic lymph nodes are appreciated. OSSEOUS STRUCTURES-hypertrophic and degenerative changes spine noted. Arthropathy of the hips noted. OTHER- aorta is somewhat small in diameter with atherosclerotic changes. IMPRESSION- 1. Bilateral nephrolithiasis and findings suggestive of chronic medical renal disease with no hydrone phrosis. There is a stable subcentimeter exophytic lesion involving the upper pole the right kidney r elative the previous exam but is new from 2013. Has a somewhat thickened wall. Would recommend an 3-6 month follow-up CT scan for further evaluation. 2. Esophageal wall is thickened with a small hiatal hernia and contains fluid correlate for esophagit is otherwise consider mucosal lesion. 3. There are few scattered small bowel loops which are prominently upper abdomen and may represent a localized ileus or enteritis correlate clinically. 4. Heterogeneous pattern of liver can be associated with fatty infiltration, hepatocellular disease o r enteritis correlate clinically. 5 cardiomegaly with findings suggestive of mitral valve calcificati on.
[2018-01-20 14:20] LABS: Appearance,Urine Clear (Clear); Bacteria,Urine Rare /hpf; Bilirubin,Urine Negative (Negative); Blood,Urine Negative (Negative); Color,Urine Yellow; Glucose,Urine (UA) Negative (Negative); Ketones,Urine Negative (Negative); Leukocyte Esterase,Urine Moderate (Negative); Nitrite,Urine Negative (Negative); PH, Urine 6.5 (5.0-8.0); Protein,Urine Negative (Negative); RBC,Urine 4 /hpf (0-5); Specific Gravity,Urine 1.021 (1.001-1.035); Squamous Epithelial Cell,Urine <1 /hpf (0-4); Urobilinogen,Urine <2.0 mg/dL (<2.0); WBC,Urine 27 /hpf (0-5)
[2018-01-20] MEDS ORDERED: metroNIDAZOLE-NS PMX 500 MG in SALINE 1 100ML.BAG IVPB STA (14:30)
--- NOTE | 2018-01-20 14:33 | ED ---
General Adult HPI - General Chief complaint: Shortness of Breath Stated complaint: upper left abdominal pain Time Seen by Provider: 01/20/18 11:12 Source: patient, EMS Mode of arrival: EMS Limitations: no limitations - History of Present Illness Initial comments: Extremity years O female comes in with abdominal pain she said now feeling well for the last few days also question of some bleeding from the vaginal area she said she is status post hysterectomy total hysterectomy. He is in the left lower quadrant area she also has a frequency urgency dysuria she fell she had some fever and some chills and urine is dark review of system is unremarkable otherwise - Related Data Home Medications Medication Instructions Recorded Confirmed Fenofibrate 160 mg PO HS 11/15/15 01/20/18 Losartan Potassium [Cozaar] 100 mg PO DAILY 11/15/15 01/20/18 Metoprolol Tartrate [Lopressor] 50 mg PO BID 11/15/15 01/20/18 amLODIPine [Norvasc] 10 mg PO HS 03/08/17 01/20/18 Aspirin EC [Ecotrin] 325 mg PO QAM 10/04/17 01/20/18 Docusate [Colace] 100 mg PO HS 01/20/18 01/20/18 Ondansetron Odt [Zofran Odt] 8 mg PO Q8HR PRN 01/20/18 01/20/18 Sennosides [Senna] 8.6 mg PO HS 01/20/18 01/20/18 Previous Rx's Medication Instructions Recorded cloNIDine HCL [Catapres] 0.1 mg PO BID #60 tab 08/08/16 Atorvastatin [Lipitor] 40 mg PO HS #30 tab 07/05/17 HYDROcodone/APAP 10-325MG [[place] 1 tab PO Q4-6H PRN #150 tab 11/09/17 10-325] Allergies Allergy/AdvReac Type Severity Reaction Status Date / Time sulfamethoxazole Allergy Itching Verified 01/20/18 11:31 [From Septra] trimethoprim [From Septra] Allergy Itching Verified 01/20/18 11:31 levofloxacin [From Levaquin] AdvReac Muscle Pain Verified 01/20/18 11:31 Review of Systems ROS Statement: Those systems with pertinent positive or pertinent negative responses have been documented in the HPI. ROS Other: All systems not noted in ROS Statement are negative. Past Medical History Past Medical History: GERD/Reflux, Hyperlipidemia, Hypertension Additional Past Medical History / Comment(s): right Nephrolithiasis, UTI's, patient reports she was once on insulin for diabetes but changed her diet and now does not take anything. occasional vertigo, and R arm fracture with surgery. 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 lithotripsy on left side Past Anesthesia/Blood Transfusion Reactions: No Reported Reaction Additional Past Anesthesia/Blood Transfusion Reaction / Comment(s): Pt received blood in 1978-no reaction reported. Past Psychological History: Anxiety Additional Psychological History / Comment(s): Pt has had anxiety and panic attacks in the past but states no longer a problem. She resides with her spouse. She is independent. She in a bilateral AKA and gets around in a power wheelchair. She no longer drives but her spouse drives. Smoking Status: Current every day smoker Past Alcohol Use History: None Reported Additional Past Alcohol Use History / Comment(s): Pt states she started smoking at age 18 yrs and a pack will last her 2 days. Past Drug Use History: None Reported - Past Family History Father Family Medical History: Cancer, Myocardial Infarction ([place]) Additional Family Medical History / Comment(s): Father had lung cancer-went into remission. He of a massive [place] in his 60's Mother Family Medical History: Cancer Additional Family Medical History / Comment(s): Mother of lung cancer at age 54 yrs. General Exam - General Exam Comments Initial Comments: General: The patient is awake and alert, in no distress, and does not appear acutely ill. Skin: Skin is warm and dry and no rashes or lesions are noted. Eye: Pupils are equal, round and reactive to light, extra-ocular movements are intact; there is normal conjunctiva bilaterally. Ears, nose, mouth and throat: There are moist mucous membranes and no oral lesions. Neck: The neck is supple, there is no tenderness or JVD. Cardiovascular: There is a regular rate and rhythm. No murmur, rub or gallop is appreciated. Respiratory: To auscultation bilateral, no wheezing no rhonchi no distress respiratory [place] noticed Gastrointestinal: Tender in epigastric area and the left lower quadrant area positive bowel sounds no guarding no rebounds. Back: There is no tenderness to palpation in the midline. There is no obvious deformity. Musculoskeletal: Normal ROM, no tenderness, There is no pedal edema. There is no calf tenderness or swelling. No cords were appreciated. Neurological: CN II-XII intact, Cranial nerves III through XII are intact. There are no obvious motor or sensory deficits. Coordination appears grossly intact. Speech is normal. Psychiatric: Cooperative, appropriate mood & affect, normal judgment. Limitations: no limitations Course Vital Signs 01/20/18 01/20/18 01/20/18 11:05 11:12 13:12 Temperature 99.9 F H Pulse Rate 63 62 Respiratory 19 18 Rate Blood Pressure 161/73 146/63 O2 Sat by Pulse 97 100 Oximetry 01/20/18 13:48 Temperature Pulse Rate 62 Respiratory 17 Rate Blood Pressure 175/94 O2 Sat by Pulse 96 Oximetry Reassessment CBC is normal d-dimer is negative compressive metabolic panel is unremarkable troponin is negative CT I or UA is positive CT of the abdomen was reviewed it showed a chronic kidney disease 17 The facts atrophy and calcification and radiologist suspecting enteritis my had a discussion at length with the patient patient wants to be in house , she is above the knee amputee bilateral EKG Findings - EKG Comments: EKG Findings:: KG is normal sinus rhythm ventricular rate is 62 RI interval is 166 QRS duration is 76 QT/QTc is 444/450) EKG does not reveal any ST elevation or ST depression Medical Decision Making - Lab Data Result diagrams: 01/20/18 11:45 01/20/18 11:45 Lab Results 01/20/18 01/20/18 01/20/18 Range/Units 11:45 11:45 11:45 WBC 10.1 (3.8-10.6) k/uL RBC 5.04 (3.80-5.40) m/uL Hgb 14.7 (11.4-16.0) gm/dL Hct 42.6 (34.0-46.0) % MCV 84.4 (80.0-100.0) fL MCH 29.2 (25.0-35.0) pg MCHC 34.5 (31.0-37.0) g/dL RDW 13.8 (11.5-15.5) % Plt Count 439 (150-450) k/uL Neutrophils % 66 % Lymphocytes % 26 % Monocytes % 5 % Eosinophils % 1 % Basophils % 1 % Neutrophils # 6.7 (1.3-7.7) k/uL Lymphocytes # 2.7 (1.0-4.8) k/uL Monocytes # 0.5 (0-1.0) k/uL Eosinophils # 0.1 (0-0.7) k/uL Basophils # 0.1 (0-0.2) k/uL PT (9.0-12.0) sec INR (<1.2) APTT (22.0-30.0) sec D-Dimer (<0.60) mg/L FEU Sodium 141 (137-145) mmol/L Potassium 4.2 (3.5-5.1) mmol/L Chloride 110 H (98-107) mmol/L Carbon Dioxide 21 L (22-30) mmol/L Anion Gap 10 mmol/L BUN 19 H (7-17) mg/dL Creatinine 0.60 (0.52-1.04) mg/dL Est GFR (CKD-EPI)AfAm >90 (>60 ml/min/1.73 sqM) Est GFR (CKD-EPI)NonAf >90 (>60 ml/min/1.73 sqM) Glucose 112 H (74-99) mg/dL Calcium 9.5 (8.4-10.2) mg/dL Total Bilirubin 0.3 (0.2-1.3) mg/dL AST 21 (14-36) U/L ALT 35 (9-52) U/L Alkaline Phosphatase 49 (38-126) U/L Total Creatine Kinase 46 (30-135) U/L CK-MB (CK-2) 0.5 (0.0-2.4) ng/mL CK-MB (CK-2) Rel Index 1.1 Troponin I <0.012 (0.000-0.034) ng/mL C-Reactive Protein 5.9 (<10.0) mg/L NT-Pro-B Natriuret Pep pg/mL Total Protein 6.5 (6.3-8.2) g/dL Albumin 3.9 (3.5-5.0) g/dL Urine Color Urine Appearance (Clear) Urine pH (5.0-8.0) Ur Specific [place] (1.001-1.035) Urine Protein (Negative) Urine Glucose (UA) (Negative) Urine Ketones (Negative) Urine Blood (Negative) Urine Nitrite (Negative) Urine Bilirubin (Negative) Urine Urobilinogen (<2.0) mg/dL Ur Leukocyte Esterase (Negative) Urine RBC (0-5) /hpf Urine WBC (0-5) /hpf Ur Squamous Epith Cells (0-4) /hpf Urine Bacteria (None) /hpf 01/20/18 01/20/18 01/20/18 Range/Units 11:45 11:45 14:13 WBC (3.8-10.6) k/uL RBC (3.80-5.40) m/uL Hgb (11.4-16.0) gm/dL Hct (34.0-46.0) % MCV (80.0-100.0) fL MCH (25.0-35.0) pg MCHC (31.0-37.0) g/dL RDW (11.5-15.5) % Plt Count (150-450) k/uL Neutrophils % % Lymphocytes % % Monocytes % % Eosinophils % % Basophils % % Neutrophils # (1.3-7.7) k/uL Lymphocytes # (1.0-4.8) k/uL Monocytes # (0-1.0) k/uL Eosinophils # (0-0.7) k/uL Basophils # (0-0.2) k/uL PT 10.4 (9.0-12.0) sec INR 1.1 (<1.2) APTT 24.7 (22.0-30.0) sec D-Dimer 0.33 (<0.60) mg/L FEU Sodium (137-145) mmol/L Potassium (3.5-5.1) mmol/L Chloride (98-107) mmol/L Carbon Dioxide (22-30) mmol/L Anion Gap mmol/L BUN (7-17) mg/dL Creatinine (0.52-1.04) mg/dL Est GFR (CKD-EPI)AfAm (>60 ml/min/1.73 sqM) Est GFR (CKD-EPI)NonAf (>60 ml/min/1.73 sqM) Glucose (74-99) mg/dL Calcium (8.4-10.2) mg/dL Total Bilirubin (0.2-1.3) mg/dL AST (14-36) U/L ALT (9-52) U/L Alkaline Phosphatase (38-126) U/L Total Creatine Kinase (30-135) U/L CK-MB (CK-2) (0.0-2.4) ng/mL CK-MB (CK-2) Rel Index Troponin I (0.000-0.034) ng/mL C-Reactive Protein (<10.0) mg/L NT-Pro-B Natriuret Pep 425 pg/mL Total Protein (6.3-8.2) g/dL Albumin (3.5-5.0) g/dL Urine Color Yellow Urine Appearance Clear (Clear) Urine pH 6.5 (5.0-8.0) Ur Specific [place] 1.021 (1.001-1.035) Urine Protein Negative (Negative) Urine Glucose (UA) Negative (Negative) Urine Ketones Negative (Negative) Urine Blood Negative (Negative) Urine Nitrite Negative (Negative) Urine Bilirubin Negative (Negative) Urine Urobilinogen <2.0 (<2.0) mg/dL Ur Leukocyte Esterase Moderate H (Negative) Urine RBC 4 (0-5) /hpf Urine WBC 27 H (0-5) /hpf Ur Squamous Epith Cells <1 (0-4) /hpf Urine Bacteria Rare H (None) /hpf Disposition Clinical Impression: UTI (urinary tract infection), Enteritis, Left lower quadrant pain Disposition: ADMITTED IP TO THIS [facility] Referrals: Dick Nguyen MD [Primary Care Provider] - 1-2 days
[2018-01-20] MEDS ORDERED: ACETAMINOPHEN TAB 325 MG TAB PO PRN (14:40)
[2018-01-20] MEDS ORDERED: NALOXONE 0.4 MG/ML 1 ML VIAL IV PRN (14:40)
[2018-01-20] MEDS: MORPHINE SULFATE 2 MG/ML SYRINGE IV PRN ×2 (16:13→21:08)
[2018-01-20] MEDS: HYDROcodone/APAP 10-325MG 1 EACH TAB PO PRN ×2 (18:26→22:45)
--- NOTE | 2018-01-20 20:58 | P.HPIM ---
History of Present Illness H&P Date: 01/20/18 Chief Complaint: Left lower quadrant abdominal pain. This is a history of physical 62-year-old white female with history of nonobstructing nephrolithiasis with recurrent UTI. She has history of bilateral amputation and has an underlying history of hypertension with opiate dependence. She is complaining of 24-40 hour history of worsening left lower quadrant pain. The patient was found to have enteritis on the left lower quadrant on computed tomography scan. She's been placed on appropriate antibiotic treatment. She is struggling with pain control at this time. No fever or chills since she's been to the floor. Significant nausea and vomiting however she did eat a heavy meal for some reason including japanese fries. Review of Systems Constitutional: Reports chronic pain Eyes: denies blurred vision, denies pain Cardiovascular: Denies chest pain, Denies shortness of breath Respiratory: Denies cough Gastrointestinal: Reports abdominal pain, Reports nausea, Reports vomiting, Denies diarrhea Genitourinary: Denies dysuria, Denies hematuria Musculoskeletal: Denies myalgias Integumentary: Denies pruritus, Denies rash Past Medical History Past Medical History: GERD/Reflux, Hyperlipidemia, Hypertension Additional Past Medical History / Comment(s): hx urinary retention,right Nephrolithiasis, pt stated rt kidney non functioning", UTI's, patient reports she was once on insulin for diabetes but changed her diet and now does not take anything. occasional vertigo, and R arm fracture with surgery. 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 lithotripsy on left side Past Anesthesia/Blood Transfusion Reactions: No Reported Reaction Additional Past Anesthesia/Blood Transfusion Reaction / Comment(s): Pt received blood in 1978-no reaction reported. Smoking Status: Current every day smoker - Past Family History Father Family Medical History: Cancer, Myocardial Infarction ([place]) Additional Family Medical History / Comment(s): Father had lung cancer-went into remission. He of a massive [place] in his 60's Mother Family Medical History: Cancer Additional Family Medical History / Comment(s): Mother of lung cancer at age 54 yrs. Medications and Allergies Home Medications Medication Instructions Recorded Confirmed Type Fenofibrate 160 mg PO HS 11/15/15 01/20/18 History Losartan Potassium [Cozaar] 100 mg PO DAILY 11/15/15 01/20/18 History Metoprolol Tartrate [Lopressor] 50 mg PO BID 11/15/15 01/20/18 History cloNIDine HCL [Catapres] 0.1 mg PO BID #60 tab 08/08/16 01/20/18 Rx amLODIPine [Norvasc] 10 mg PO HS 03/08/17 01/20/18 History Atorvastatin [Lipitor] 40 mg PO HS #30 tab 07/05/17 01/20/18 Rx Aspirin EC [Ecotrin] 325 mg PO QAM 10/04/17 01/20/18 History HYDROcodone/APAP 10-325MG [[place] 1 tab PO Q4-6H PRN #150 tab 11/09/17 01/20/18 Rx 10-325] Docusate [Colace] 100 mg PO HS 01/20/18 01/20/18 History Ondansetron Odt [Zofran Odt] 8 mg PO Q8HR PRN 01/20/18 01/20/18 History Sennosides [Senna] 8.6 mg PO HS 01/20/18 01/20/18 History Allergies Allergy/AdvReac Type Severity Reaction Status Date / Time sulfamethoxazole Allergy Itching Verified 01/20/18 11:31 [From Septra] trimethoprim [From Septra] Allergy Itching Verified 01/20/18 11:31 levofloxacin [From Levaquin] AdvReac Muscle Pain Verified 01/20/18 11:31 Physical Exam Vitals: Vital Signs Temp Pulse Pulse Resp BP BP Pulse Ox 01/20/18 17:58 98.3 F 65 16 145/76 96 01/20/18 15:20 97.2 F L 62 17 138/63 95 01/20/18 13:48 62 17 175/94 96 01/20/18 13:12 62 18 146/63 100 01/20/18 11:12 161/73 01/20/18 11:05 99.9 F H 63 19 97 Intake and Output 01/20/18 01/20/18 01/20/18 06:59 14:59 22:59 Other: Voiding Method Bedside Commode Weight 66.678 kg - Constitutional General appearance: obese - EENT Eyes: no abnormal pupil - Neck Neck: no lymphadenopathy - Respiratory Respiratory: bilateral: CTA - Cardiovascular Rhythm: regular Heart sounds: normal: S1, S2 Abnormal Heart Sounds: no S3 Gallop - Gastrointestinal General gastrointestinal: tenderness Localized gastrointestinal: tender: LLQ - Integumentary Integumentary: no normal, no rash - Psychiatric Psychiatric: A&O x's 3, intact judgment & insight Results CBC & Chem 7: 01/20/18 11:45 01/20/18 11:45 Labs: Abnormal Lab Results - Last 24 Hours (Table) 01/20/18 01/20/18 Range/Units 11:45 14:13 Chloride 110 H (98-107) mmol/L Carbon Dioxide 21 L (22-30) mmol/L BUN 19 H (7-17) mg/dL Glucose 112 H (74-99) mg/dL Ur Leukocyte Esterase Moderate H (Negative) Urine WBC 27 H (0-5) /hpf Urine Bacteria Rare H (None) /hpf Thrombosis Risk Factor Assmnt - Choose All That Apply Each Factor Represents 1 point: Age 41-60 years, Obesity (BMI >25) Other congenital or acquired thrombophilia - If yes, enter type in comment: No Thrombosis Risk Factor Assessment Total Risk Factor Score: 2 Thrombosis Risk Factor Assessment Level: Low Risk Assessment and Plan (1) Enteritis Current Visit: Yes Status: Acute Code(s): K52.9 - NONINFECTIVE GASTROENTERITIS AND COLITIS, UNSPECIFIED SNOMED Code(s): 51557904 (2) Left lower quadrant pain Current Visit: Yes Status: Acute Code(s): R10.32 - LEFT LOWER QUADRANT PAIN SNOMED Code(s): 330604062 (3) UTI (urinary tract infection) Current Visit: Yes Status: Acute Code(s): N39.0 - URINARY TRACT INFECTION, SITE NOT SPECIFIED SNOMED Code(s): 56091484 (4) Renal calculus Current Visit: No Status: Acute Priority: High Code(s): N20.0 - CALCULUS OF KIDNEY SNOMED Code(s): 95754430 (5) Amputated left leg Current Visit: No Status: Chronic Code(s): Z89.612 - ACQUIRED ABSENCE OF LEFT LEG ABOVE KNEE SNOMED Code(s): 031206471 (6) Amputated right leg Current Visit: No Status: Chronic Code(s): Z89.611 - ACQUIRED ABSENCE OF RIGHT LEG ABOVE KNEE SNOMED Code(s): 178202189 Plan: The patient is here essentially for enteritis. Start on appropriate antibiotic treatment. Check CBC and CMP in a.m. GI consult if the patient is no better. Reconcile home medications. She is a full code otherwise.
[2018-01-20] MEDS ORDERED: cloNIDine HCL 0.1 MG TAB PO SCH (21:00)
[2018-01-20] MEDS ORDERED: LEVOFLOXACIN 500MG-D5W PMX 500 MG in DEXTROSE/WATER 1 100ML.BAG IVPB SCH (21:00)
[2018-01-20] MEDS: FENOFIBRATE 160 MG TAB PO SCH (21:07)
[2018-01-20] MEDS: ATORVASTATIN 40 MG TAB PO SCH (21:07)
[2018-01-20] MEDS: DOCUSATE 100 MG CAP PO SCH (21:07)
[2018-01-20] MEDS: METOPROLOL TARTRATE 50 MG TAB PO SCH (21:07)
[2018-01-20] MEDS: SENNOSIDES 8.6 MG TAB PO SCH (21:07)
[2018-01-20] MEDS: amLODIPine 10 MG TAB PO SCH (21:07)
[2018-01-20] MEDS: ONDANSETRON 4 MG/2 ML VIAL IVP PRN (21:08)
[2018-01-20] MEDS: metroNIDAZOLE-NS PMX 500 MG in SALINE 1 100ML.BAG IVPB SCH (23:27)
[2018-01-21] MEDS: MORPHINE SULFATE 2 MG/ML SYRINGE IV PRN ×6 (01:09→22:39)
[2018-01-21] MEDS: HYDROcodone/APAP 10-325MG 1 EACH TAB PO PRN ×4 (04:02→20:59)
[2018-01-21] MEDS: ONDANSETRON 4 MG/2 ML VIAL IVP PRN ×3 (04:10→16:23)
[2018-01-21 07:40] LABS: HCT 42.3 % (34.0-46.0); HGB 14.1 gm/dL (11.4-16.0); MCH 29.6 pg (25.0-35.0); MCHC 33.4 g/dL (31.0-37.0); MCV 88.6 fL (80.0-100.0); Mean Platelet Volume 7.2; Platelet Count 398 k/uL (150-450); RBC 4.78 m/uL (3.80-5.40); RDW 13.9 % (11.5-15.5); WBC 8.2 k/uL (3.8-10.6)
[2018-01-21 07:46] LABS: ALT 32 U/L (9-52); AST 21 U/L (14-36); Albumin 3.4 g/dL (3.5-5.0); Alkaline Phosphatase 45 U/L (38-126); Anion Gap 9 mmol/L; Blood Urea Nitrogen 21 mg/dL (7-17); Calcium 8.8 mg/dL (8.4-10.2); Carbon Dioxide 21 mmol/L (22-30); Chloride 111 mmol/L (98-107); Glucose 91 mg/dL (74-99); Potassium 4.1 mmol/L (3.5-5.1); Sodium 141 mmol/L (137-145); Total Bilirubin 0.2 mg/dL (0.2-1.3); Total Protein 5.8 g/dL (6.3-8.2)
--- NOTE | 2018-01-21 08:10 | P.PN ---
Subjective Progress Note Date: 01/21/18 Principal diagnosis: This is a continue present 8-year-old white female essentially admitted for enteritis. She has history of recurrent and chronic UTI with nephrolithiasis. She states significant pain and elevated blood pressure. No significant fever The patient states significant headache which is not relieved by the morphine. However, Dilaudid is not available. Objective - Vital Signs Vital signs: Vital Signs Temp 98.2 F 01/21/18 06:13 Pulse 56 L 01/21/18 06:13 Resp 16 01/21/18 06:13 BP 141/73 01/21/18 06:13 Pulse Ox 95 01/21/18 06:13 Intake & Output 01/20/18 01/21/18 01/21/18 18:59 06:59 18:59 Weight 66.678 kg Other: Voiding Method Bedside Commode Bedside Commode # Voids 2 - Constitutional General appearance: Present: obese - EENT Eyes: Absent: abnormal pupil - Respiratory Respiratory: bilateral: CTA - Cardiovascular Rhythm: regular Abnormal Heart Sounds: Absent: S3 Gallop - Gastrointestinal General gastrointestinal: Present: soft, splenomegaly, tenderness Localized gastrointestinal: tender: LLQ - Integumentary Integumentary: Absent: cellulitis - Neurologic Neurologic: Present: CNII-XII intact - Labs CBC & Chem 7: 01/21/18 07:08 01/21/18 07:08 Labs: Abnormal Lab Results - Last 24 Hours (Table) 01/20/18 01/20/18 01/21/18 Range/Units 11:45 14:13 07:08 Chloride 110 H 111 H (98-107) mmol/L Carbon Dioxide 21 L 21 L (22-30) mmol/L BUN 19 H 21 H (7-17) mg/dL Glucose 112 H (74-99) mg/dL Total Protein 5.8 L (6.3-8.2) g/dL Albumin 3.4 L (3.5-5.0) g/dL Ur Leukocyte Esterase Moderate H (Negative) Urine WBC 27 H (0-5) /hpf Urine Bacteria Rare H (None) /hpf Assessment and Plan (1) Enteritis Current Visit: Yes Status: Acute Code(s): K52.9 - NONINFECTIVE GASTROENTERITIS AND COLITIS, UNSPECIFIED SNOMED Code(s): 21628878 (2) Left lower quadrant pain Current Visit: Yes Status: Acute Code(s): R10.32 - LEFT LOWER QUADRANT PAIN SNOMED Code(s): 043077529 (3) UTI (urinary tract infection) Current Visit: Yes Status: Acute Code(s): N39.0 - URINARY TRACT INFECTION, SITE NOT SPECIFIED SNOMED Code(s): 72575654 (4) Renal calculus Current Visit: No Status: Acute Priority: High Code(s): N20.0 - CALCULUS OF KIDNEY SNOMED Code(s): 85023977 (5) Amputated left leg Current Visit: No Status: Chronic Code(s): Z89.612 - ACQUIRED ABSENCE OF LEFT LEG ABOVE KNEE SNOMED Code(s): 983497448 (6) Amputated right leg Current Visit: No Status: Chronic Code(s): Z89.611 - ACQUIRED ABSENCE OF RIGHT LEG ABOVE KNEE SNOMED Code(s): 648481480 Plan: Continue current regimen of antibiotic. Titrate blood pressure medications. Check CMP and CBC in a.m. Dr. Gasca's group will covering for the weekend.
[2018-01-21] MEDS: cefTRIAXone IN SWFI 2,000 MG/20 ML SYRINGE IVP SCH (08:58)
[2018-01-21] MEDS: metroNIDAZOLE-NS PMX 500 MG in SALINE 1 100ML.BAG IVPB SCH ×2 (08:58→15:57)
[2018-01-21] MEDS: LOSARTAN 50 MG TAB PO SCH (08:59)
[2018-01-21] MEDS: METOPROLOL TARTRATE 50 MG TAB PO SCH ×2 (08:59→20:45)
[2018-01-21] MEDS: ASPIRIN 325 MG TAB PO SCH (08:59)
[2018-01-21] MEDS: cloNIDine HCL 0.2 MG TAB PO SCH ×2 (09:05→20:46)
--- NOTE | 2018-01-21 10:41 | CONS ---
CONSULTATION REASON FOR CONSULT: Renal cyst and nephrolithiasis. HISTORY OF PRESENT ILLNESS: The patient is a 62-year-old female who has a history of nephrolithiasis and recurrent urinary tract infection. 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 The patient has been admitted with complaints of left lower abdominal pain, which has been going on for a few days prior to admission. The patient denies any significant urinary symptoms. Her urine showed 27 WBCs. There was no blood or protein noted. Serum creatinine was 0.6 mg/dL. The patient had a CT of the abdomen yesterday which showed calcification on the right side. There is no evidence of obstruction. Right renal atrophy is also noted. There is no evidence of hydronephrosis. There is a cyst in the lower upper pole of the right kidney noted as which has a thickened wall. The patient stated that she has been evaluated by urology at [facility] previously. PAST MEDICAL HISTORY: History of previous history of nephrolithiasis, hypertension, gastroesophageal reflux disease, urine retention, recurrent urinary tract infections, right renal atrophy. 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 SOCIAL HISTORY: Positive for smoking. No drug abuse or alcohol abuse. MEDICATIONS: Medications at home included Cozaar, Lopressor clonidine, Norvasc, Lipitor, Ecotrin, Colace, Zofran, Senna. ALLERGIES: Allergies include SEPTRA, LEVAQUIN. The SEPTRA causes itching, LEVAQUIN causes muscle pain. PHYSICAL EXAMINATION: On examination, patient is currently comfortable, awake. She is not in any acute distress. Alert and oriented x3. Blood pressure is 141/73, heart rate 56 per minute. Patient is afebrile. EXAMINATION OF THE HEART: S1, S2. EXAMINATION OF THE LUNGS: Bilateral breath sounds are heard. ABDOMEN: Soft. There is minimal tenderness noted in the left upper quadrant and in the left CVA. Patient has bilateral above knee amputations. TAX DIRECTOR exam is grossly intact. LABS: Labs show sodium 141, potassium 4.1, chloride 111, BUN 21, serum creatinine 0.64, hemoglobin 14.1. ASSESSMENT: 1. Nephrolithiasis with previous urological intervention and lithotripsy. Patient currently has left-sided abdominal pain and on the CAT scan does show calcification on the left side too measuring about 3 mm. I will proceed with urology consult particularly given the thickened cyst on the right kidney as well. 2. Hypertension, currently controlled. 3. Gastroesophageal reflux disease. 4. Hyperlipidemia. 5. Rule out urinary tract infection. PLAN: Continue empiric antibiotics. Consult Urology and follow up on the urine cultures. Thank you for the consultation. We will continue to follow the patient with you during her hospitalization. MMODL / IJN: [id number] /
[2018-01-21] MEDS: amLODIPine 10 MG TAB PO SCH (20:45)
[2018-01-21] MEDS: DOCUSATE 100 MG CAP PO SCH (20:45)
[2018-01-21] MEDS: FENOFIBRATE 160 MG TAB PO SCH (20:45)
[2018-01-21] MEDS: SENNOSIDES 8.6 MG TAB PO SCH (20:46)
[2018-01-21] MEDS: ATORVASTATIN 40 MG TAB PO SCH (20:46)
[2018-01-22] MEDS: metroNIDAZOLE-NS PMX 500 MG in SALINE 1 100ML.BAG IVPB SCH ×3 (00:24→15:00)
[2018-01-22] MEDS: MORPHINE SULFATE 2 MG/ML SYRINGE IV PRN ×5 (02:39→21:47)
[2018-01-22] MEDS: ONDANSETRON 4 MG/2 ML VIAL IVP PRN ×3 (04:49→16:36)
[2018-01-22] MEDS: HYDROcodone/APAP 10-325MG 1 EACH TAB PO PRN ×4 (05:25→21:46)
[2018-01-22 07:26] LABS: HCT 41.4 % (34.0-46.0); HGB 13.9 gm/dL (11.4-16.0); MCH 29.8 pg (25.0-35.0); MCHC 33.5 g/dL (31.0-37.0); Mean Platelet Volume 7.4; Platelet Count 395 k/uL (150-450); RBC 4.64 m/uL (3.80-5.40); RDW 13.8 % (11.5-15.5); WBC 9.1 k/uL (3.8-10.6)
[2018-01-22 07:54] LABS: ALT 33 U/L (9-52); AST 20 U/L (14-36); Albumin 3.5 g/dL (3.5-5.0); Alkaline Phosphatase 44 U/L (38-126); Anion Gap 12 mmol/L; Blood Urea Nitrogen 20 mg/dL (7-17); Calcium 9.1 mg/dL (8.4-10.2); Carbon Dioxide 19 mmol/L (22-30); Chloride 110 mmol/L (98-107); Glucose 89 mg/dL (74-99); Potassium 4.4 mmol/L (3.5-5.1); Sodium 141 mmol/L (137-145); Total Bilirubin 0.2 mg/dL (0.2-1.3); Total Protein 5.9 g/dL (6.3-8.2)
[2018-01-22] MEDS: ASPIRIN 325 MG TAB PO SCH (08:00)
[2018-01-22] MEDS: LOSARTAN 50 MG TAB PO SCH (08:00)
[2018-01-22] MEDS: METOPROLOL TARTRATE 50 MG TAB PO SCH ×3 (08:00→20:31)
[2018-01-22] MEDS: cloNIDine HCL 0.2 MG TAB PO SCH ×2 (08:00→20:29)
[2018-01-22] MEDS: cefTRIAXone IN SWFI 2,000 MG/20 ML SYRINGE IVP SCH (08:04)
[2018-01-22] MEDS ORDERED: hydrALAZINE HCL 20 MG/ML 1 ML VIAL IVP PRN (11:09)
--- NOTE | 2018-01-22 11:10 | P.PN ---
Subjective Patient is seen in follow-up for nephrolithiasis. Patient complains of pain in her left flank. Admits to good urine output. No hematuria or dysuria. Denies chest pain or shortness of breath. Oral intake is good. Vital signs are stable. General: The patient appeared well nourished and normally developed. HEENT: Head exam is unremarkable. Neck is without jugular venous distension. LUNGS: Lungs are clear to auscultation and percussion. Breath sounds decreased. HEART: Rate and Rhythm are regular. First and second heart sounds normal. No murmurs, rubs or gallops. ABDOMEN: Abdominal exam reveals normal bowel sounds. Non-tender and non- distended. No evidence of peritonitis. EXTREMITITES: Bilateral bwesh-oar-plyy amputation. Objective - Vital Signs Vital signs: Vital Signs Temp 98.3 F 01/22/18 05:00 Pulse 56 L 01/22/18 08:00 Resp 16 01/22/18 05:00 BP 175/74 01/22/18 05:00 Pulse Ox 95 01/22/18 05:00 Intake & Output 01/21/18 01/22/18 01/22/18 18:59 06:59 18:59 Intake Total 1070 Balance 1070 Weight 66.678 kg Intake: Oral 1070 Other: Voiding Method Bedside Commode Bedside Commode Bedside Commode # Voids 2 3 # Bowel Movements 1 2 - Labs CBC & Chem 7: 01/22/18 06:49 01/22/18 06:49 Labs: Abnormal Lab Results - Last 24 Hours (Table) 01/22/18 Range/Units 06:49 Chloride 110 H (98-107) mmol/L Carbon Dioxide 19 L (22-30) mmol/L BUN 20 H (7-17) mg/dL Total Protein 5.9 L (6.3-8.2) g/dL Microbiology - Last 24 Hours (Table) 01/21/18 13:06 Urine Culture - Preliminary Urine,Clean Catch Assessment and Plan Plan: Assessment: 1. Bilateral nephrolithiasis with history of lithotripsy in the past. 2. Benign hypertension. Blood pressures in the higher side. Partially pain related. 3. Pyuria. Urine culture pending. 4. 1.1 cm right renal pelvic calcification. 5. Atrophic of the right kidney. 6. 3 mm calcification in the left kidney. Plan: Await urology input. Follow-up urine culture. Maintain empiric antibiotics. Increase clonidine to 0.2 mg 3 times daily. She will need to follow-up as outpatient. At that time will do 24-hour urine collection to workup etiology of her kidney stones.
[2018-01-22] MEDS ORDERED: cloNIDine HCL 0.2 MG TAB PO SCH (16:00)
--- NOTE | 2018-01-22 17:29 | P.GSCN ---
History of Present Illness Consult date: 01/22/18 Reason for Consult: Kidney stones Requesting physician: Citlaly Campbell History of present illness: The patient is a 62-year-old woman with a known atrophic right kidney. She has recurrent urolithiasis, and most recently has been treated by a urologist at the [facility]. He removed a left renal calculus in May 2017. She is now admitted with left flank discomfort. Review of Systems - Constitutional Reports chills, Denies fever - Cardiovascular Reports high blood pressure - Gastrointestinal Denies nausea, Denies vomiting - Genitourinary Genitourinary: Reports flank pain, Reports kidney stones, Denies dysuria Past Medical History Past Medical History: GERD/Reflux, Hyperlipidemia, Hypertension Additional Past Medical History / Comment(s): hx urinary retention,right Nephrolithiasis, pt stated rt kidney non functioning", UTI's, patient reports she was once on insulin for diabetes but changed her diet and now does not take anything. occasional vertigo, and R arm fracture with surgery. 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 lithotripsy on left side Past Anesthesia/Blood Transfusion Reactions: No Reported Reaction Additional Past Anesthesia/Blood Transfusion Reaction / Comm: Pt received blood in 1978-no reaction reported. Smoking Status: Current every day smoker - Past Family History Father Family Medical History: Cancer, Myocardial Infarction (UT) Additional Family Medical History / Comment(s): Father had lung cancer-went into remission. He of a massive [place] in his 60's Mother Family Medical History: Cancer Additional Family Medical History / Comment(s): Mother of lung cancer at age 54 yrs. Medications and Allergies Home Medications Medication Instructions Recorded Confirmed Type Fenofibrate 160 mg PO HS 11/15/15 01/20/18 History Losartan Potassium [Cozaar] 100 mg PO DAILY 11/15/15 01/20/18 History Metoprolol Tartrate [Lopressor] 50 mg PO BID 11/15/15 01/20/18 History cloNIDine HCL [Catapres] 0.1 mg PO BID #60 tab 08/08/16 01/20/18 Rx amLODIPine [Norvasc] 10 mg PO HS 03/08/17 01/20/18 History Atorvastatin [Lipitor] 40 mg PO HS #30 tab 07/05/17 01/20/18 Rx Aspirin EC [Ecotrin] 325 mg PO QAM 10/04/17 01/20/18 History HYDROcodone/APAP 10-325MG [[place] 1 tab PO Q4-6H PRN #150 tab 11/09/17 01/20/18 Rx 10-325] Docusate [Colace] 100 mg PO HS 01/20/18 01/20/18 History Ondansetron Odt [Zofran Odt] 8 mg PO Q8HR PRN 01/20/18 01/20/18 History Sennosides [Senna] 8.6 mg PO HS 01/20/18 01/20/18 History Allergies Allergy/AdvReac Type Severity Reaction Status Date / Time sulfamethoxazole Allergy Itching Verified 01/20/18 11:31 [From Septra] trimethoprim [From Septra] Allergy Itching Verified 01/20/18 11:31 levofloxacin [From Levaquin] AdvReac Muscle Pain Verified 01/20/18 11:31 Surgical - Exam Vital Signs Temp Pulse Resp Pulse Ox 99.9 F H 63 19 97 01/20/18 11:05 01/20/18 11:05 01/20/18 11:05 01/20/18 11:05 - General well developed, well nourished, no distress - Respiratory normal respiratory effort - Abdomen Abdomen: soft, tender (Moderate left CVA tenderness), no masses, no guarding, no rebound, no distended - Psychiatric oriented to time, oriented to person, oriented to place, speech is normal Results - Labs 01/22/18 06:49 01/22/18 06:49 Abnormal Lab Results - Last 24 Hours (Table) 01/22/18 Range/Units 06:49 Chloride 110 H (98-107) mmol/L Carbon Dioxide 19 L (22-30) mmol/L BUN 20 H (7-17) mg/dL Total Protein 5.9 L (6.3-8.2) g/dL Microbiology - Last 24 Hours (Table) 01/21/18 13:06 Urine Culture - Preliminary Urine,Clean Catch Diabetes panel 01/22/18 Range/Units 06:49 Sodium 141 (137-145) mmol/L Potassium 4.4 (3.5-5.1) mmol/L Chloride 110 H (98-107) mmol/L Carbon Dioxide 19 L (22-30) mmol/L BUN 20 H (7-17) mg/dL Creatinine 0.61 (0.52-1.04) mg/dL Glucose 89 (74-99) mg/dL Calcium 9.1 (8.4-10.2) mg/dL AST 20 (14-36) U/L ALT 33 (9-52) U/L Alkaline Phosphatase 44 (38-126) U/L Total Protein 5.9 L (6.3-8.2) g/dL Albumin 3.5 (3.5-5.0) g/dL Calcium panel 01/22/18 Range/Units 06:49 Calcium 9.1 (8.4-10.2) mg/dL Albumin 3.5 (3.5-5.0) g/dL Pituitary panel 01/22/18 Range/Units 06:49 Sodium 141 (137-145) mmol/L Potassium 4.4 (3.5-5.1) mmol/L Chloride 110 H (98-107) mmol/L Carbon Dioxide 19 L (22-30) mmol/L BUN 20 H (7-17) mg/dL Creatinine 0.61 (0.52-1.04) mg/dL Glucose 89 (74-99) mg/dL Calcium 9.1 (8.4-10.2) mg/dL Adrenal panel 01/22/18 Range/Units 06:49 Sodium 141 (137-145) mmol/L Potassium 4.4 (3.5-5.1) mmol/L Chloride 110 H (98-107) mmol/L Carbon Dioxide 19 L (22-30) mmol/L BUN 20 H (7-17) mg/dL Creatinine 0.61 (0.52-1.04) mg/dL Glucose 89 (74-99) mg/dL Calcium 9.1 (8.4-10.2) mg/dL Total Bilirubin 0.2 (0.2-1.3) mg/dL AST 20 (14-36) U/L ALT 33 (9-52) U/L Alkaline Phosphatase 44 (38-126) U/L Total Protein 5.9 L (6.3-8.2) g/dL Albumin 3.5 (3.5-5.0) g/dL - Imaging CT scan - abdomen: report reviewed, image reviewed Assessment and Plan (1) Renal calculus Current Visit: No Status: Acute Priority: High Code(s): N20.0 - CALCULUS OF KIDNEY SNOMED Code(s): 53675853 Plan: The etiology of the patient's left flank pain is unclear. Computed tomography scan shows a 3-4 mm left lower pole renal calculus, with no evidence of obstruction. Urinalysis is consistent with a possible UTI. A urine culture is pending. In the meantime, she is receiving Rocephin. If the urine culture is negative, but her pain persists, consideration should be given to ureteroscopic removal of her left lower pole renal calculus. However, there is no certainty that this would result in symptomatic improvement. Incidentally, the computed tomography scan shows the right kidney to be atrophic, with a small upper pole lesion too small to characterize. This appears to be a thick-walled cyst, and should be monitored via serial CT scans.
--- NOTE | 2018-01-22 19:39 | PN ---
PROGRESS NOTE DATE OF SERVICE: 01/22/2018 I am covering for Dr. Nguyen. This 62-year-old woman was admitted with severe enteritis. Patient also complaining of severe abdominal pain which is felt in the left lower part and mid part as well as some loin pain also. Patient also recurrent UTI and nephrolithiasis also. The patient was seen by Dr. Donnelly from urology today. The patient had a known atrophic right kidney. There is no evidence of obstruction. The patient is on broad-spectrum IV antibiotics. PAST MEDICAL HISTORY: Reviewed. REVIEW OF SYSTEMS: CARDIOVASCULAR SYSTEM: No angina or palpitations. RESPIRATORY: As mentioned earlier. GI: As mentioned earlier. : No dysuria. NERVOUS SYSTEM: No numbness or weakness. CURRENT MEDICATIONS ARE REVIEWED: And include: 1. Tylenol 650 q.h.s. 2. [place] 10 mg q.4h p.r.n. 3. Norvasc 10 mg q.h.s. 4. Aspirin 81 mg daily. 6. Rocephin 2 g daily. 7. Catapres 0.2 b.i.d. 8. Colace 100 mg q.h.s. 9. Lofibra 160 mg q.h.s. 10.Alprazolam 10 mg q.4. 11.Cozaar 100 mg p.o. daily. 12.Lopressor 50 mg p.o. b.i.d. 13.Flagyl 500 mg q.8h. 14.Narcan 0.2 q.2h p.r.n. 15.Zofran. 16.Senokot. PHYSICAL EXAM: Patient is alert, oriented x3. Pulse 57, blood pressure 140/62, respirations 18 , temperature 98.4, pulse ox 98% on room air. HEENT: Conjunctivae normal. Oral mucosa moist. Neck is no jugular venous distention. No carotid bruit. No lymph node enlargement. Cardiovascular System: S1, S2 muffled. Respirations: Breath sounds diminished in the bases. A few rhonchi. No crackles. ABDOMEN: Soft, obese, mild diffuse tenderness present. No guarding. No rigidity. No mass palpable. Legs: No edema. No swelling. Nervous system: Higher functions as mentioned earlier. Moves all four limbs. No focal motor or sensory deficits. Lymphatics: No lymph nodes palpable in the neck, axillae or groin. Skin: No ulcer, rash or bleeding. LAB STUDIES: CBC within normal limits. Sodium 142, potassium 4.4, and total protein is 5.9. UA noted. Urine cultures are negative so far. ASSESSMENT: 1. Acute urinary tract infection present on admission. 2. Enteritis. 3. Left lower quadrant abdominal pain. 4. Renal calculus. 5. left leg. 6. History of gastroesophageal reflux disease. 7. Hypertension. 8. Hyperlipidemia. 9. History of anxiety. RECOMMENDATIONS AND DISCUSSION: In this 62-year-old woman who presented with multiple complex medical issues. We will monitor the patient closely. Continue the current medications. Continue symptomatic treatment. I would recommend continue with the current medications, continue with symptomatic treatment. The patient is on broad-spectrum IV antibiotics. Pain medications. I recommend continue the current medications. DVT prophylaxis. Urology note appreciated. Closely monitor. Repeat labs also will be recommended. Medication reconciliation done. Further recommendations to follow. EARLE / LEONELN: [id number] / MTDSahil
[2018-01-22] MEDS: FENOFIBRATE 160 MG TAB PO SCH (20:29)
[2018-01-22] MEDS: HEPARIN SODIUM,PORCINE 5,000 UNIT/ML 1 ML VIAL SQ SCH (20:29)
[2018-01-22] MEDS: amLODIPine 10 MG TAB PO SCH (20:29)
[2018-01-22] MEDS: ATORVASTATIN 40 MG TAB PO SCH (20:29)
[2018-01-22] MEDS: DOCUSATE 100 MG CAP PO SCH (20:32)
[2018-01-22] MEDS: SENNOSIDES 8.6 MG TAB PO SCH (20:32)
[2018-01-23] MEDS: ONDANSETRON 4 MG/2 ML VIAL IVP PRN ×4 (00:54→23:28)
[2018-01-23] MEDS: metroNIDAZOLE-NS PMX 500 MG in SALINE 1 100ML.BAG IVPB SCH ×4 (00:54→23:28)
[2018-01-23] MEDS: MORPHINE SULFATE 2 MG/ML SYRINGE IV PRN ×5 (02:11→20:11)
[2018-01-23] MEDS: HYDROcodone/APAP 10-325MG 1 EACH TAB PO PRN ×5 (05:36→23:28)
[2018-01-23] MEDS: HEPARIN SODIUM,PORCINE 5,000 UNIT/ML 1 ML VIAL SQ SCH ×2 (08:21→20:10)
[2018-01-23] MEDS: LOSARTAN 50 MG TAB PO SCH (08:21)
[2018-01-23] MEDS: METOPROLOL TARTRATE 50 MG TAB PO SCH ×2 (08:21→20:11)
[2018-01-23] MEDS: cloNIDine HCL 0.2 MG TAB PO SCH ×2 (08:22→20:10)
[2018-01-23] MEDS: ASPIRIN 325 MG TAB PO SCH (08:22)
[2018-01-23] MEDS: cefTRIAXone IN SWFI 2,000 MG/20 ML SYRINGE IVP SCH (08:26)
[2018-01-23 08:29] LABS: Basophils # (A) 0.1 k/uL (0-0.2); Basophils % (A) 1 %; Eosinophils # (A) 0.2 k/uL (0-0.7); Eosinophils % (A) 2 %; HCT 42.9 % (34.0-46.0); HGB 14.5 gm/dL (11.4-16.0); Lymphocytes % (A) 32 %; MCH 29.5 pg (25.0-35.0); MCHC 33.8 g/dL (31.0-37.0); Mean Platelet Volume 8.2; Monocytes # (A) 0.5 k/uL (0-1.0); Monocytes % (A) 5 %; Neutrophils # (A) 5.6 k/uL (1.3-7.7); Neutrophils % (A) 58 %; Platelet Count 341 k/uL (150-450); RBC 4.93 m/uL (3.80-5.40); RDW 14.4 % (11.5-15.5); WBC 9.5 k/uL (3.8-10.6)
[2018-01-23 09:19] LABS: Anion Gap 9 mmol/L; Blood Urea Nitrogen 22 mg/dL (7-17); Calcium 9.2 mg/dL (8.4-10.2); Carbon Dioxide 24 mmol/L (22-30); Chloride 107 mmol/L (98-107); Glucose 88 mg/dL (74-99); Potassium 4.4 mmol/L (3.5-5.1); Sodium 140 mmol/L (137-145)
--- NOTE | 2018-01-23 09:31 | P.PN ---
Progress Note - Text Progress Note Date: 01/23/18 Ms. Sotelo continues to experience left flank pain. She is afebrile. Her WBC count is normal. A urine culture is negative. There is no certainty that her left flank pain is renal in origin. However, it is possible that the left lower pole renal calculus is responsible for her symptoms. She has a urologist at [facility] and will follow up with him for possible ureteroscopic removal of the calculus. Please notify us if we can be of any further assistance during this hospitalization.
--- NOTE | 2018-01-23 11:23 | P.PN ---
Subjective Patient is seen in follow-up for nephrolithiasis. Patient complains of pain in her left flank. Admits to good urine output. No hematuria or dysuria. Denies chest pain or shortness of breath. Oral intake is good. Feels nauseous today. Vital signs are stable. General: The patient appeared well nourished and normally developed. HEENT: Head exam is unremarkable. Neck is without jugular venous distension. LUNGS: Lungs are clear to auscultation and percussion. Breath sounds decreased. HEART: Rate and Rhythm are regular. First and second heart sounds normal. No murmurs, rubs or gallops. ABDOMEN: Abdominal exam reveals normal bowel sounds. Non-tender and non- distended. No evidence of peritonitis. EXTREMITITES: Bilateral oscze-txk-nbzf amputation. Objective - Vital Signs Vital signs: Vital Signs Temp 98.1 F 01/23/18 05:28 Pulse 56 L 01/23/18 05:28 Resp 16 01/23/18 05:28 BP 129/59 01/23/18 05:28 Pulse Ox 97 01/23/18 05:28 Intake & Output 01/22/18 01/23/18 01/23/18 18:59 06:59 18:59 Intake Total 600 690 Balance 600 690 Weight 66.678 kg Intake: Intake, IV Titration 100 100 Amount metroNIDAZOLE-NS PMX 500 100 100 mg In Saline 1 100ml.bag @ 100 mls/hr IVPB Q8HR [facility] Rx#:[id number] Oral 500 590 Other: Voiding Method Bedside Commode Bedside Commode Bedside Commode # Voids 2 2 # Bowel Movements 1 - Labs CBC & Chem 7: 01/23/18 07:16 01/23/18 07:16 Labs: Abnormal Lab Results - Last 24 Hours (Table) 01/23/18 Range/Units 07:16 BUN 22 H (7-17) mg/dL Microbiology - Last 24 Hours (Table) 01/21/18 13:06 Urine Culture - Final Urine,Clean Catch Assessment and Plan Plan: Assessment: 1. Bilateral nephrolithiasis with history of lithotripsy in the past. 2. Benign hypertension. Partially pain related. 3. Pyuria. Urine culture shows no growth so far. 4. 1.1 cm right renal pelvic calcification. 5. Atrophic of the right kidney. 6. 3 mm calcification in the left kidney. Plan: Urology recommendations noted - no plans for intervention at this time. Follow-up urine culture. Maintain empiric antibiotics. She will need to follow-up as outpatient. At that time will do 24-hour urine collection to workup etiology of her kidney stones.
--- NOTE | 2018-01-23 18:52 | PN ---
PROGRESS NOTE DATE OF SERVICE: 01/23/2018 I am covering for Dr. Nguyen. This 62-year-old woman who was admitted with severe enteritis, also complaining of severe abdominal pain. The possibility of UTI is also being considered. No chest pain. No palpitations. No fever. PHYSICAL EXAM: Alert and oriented x3. Pulse 61, blood pressure 120/70, respiration 18, temperature 98.4, pulse ox 98% on room air. HEENT: Conjunctivae normal. NECK: No jugular venous distention. CARDIOVASCULAR: S1, S2. RESPIRATORY: Breath sounds diminished in the bases. A few scattered rhonchi and crackles. ABDOMEN: Soft, nontender. No mass palpable. LEGS: No edema. NERVOUS SYSTEM: Higher function as mentioned. Moves all four limbs. No focal deficits. LYMPHATIC: No lymphadenopathy in the neck, axillae, groin. SKIN: No ulcer, rash, bleeding. LAB STUDIES: WBC 10, hemoglobin 14.5. BUN is 22. ASSESSMENT: 1. Acute urinary tract infection, present on admission. 2. Enteritis, acute. 3. Left lower quadrant abdominal pain. 4. Renal calculus. 5. History gastroesophageal reflux disease. 6. Hypertension. 7. History of hyperlipidemia. 8. History of anxiety. RECOMMENDATIONS AND DISCUSSION: I recommend to continue current management. Continue with antibiotics. Continue symptomatic treatment. Increased p.o. fluids. The patient is on IV Rocephin. Urology input appreciated. Dr. Nguyen will follow. MMODL / IJN: [id number] /
[2018-01-23] MEDS: SENNOSIDES 8.6 MG TAB PO SCH (20:09)
[2018-01-23] MEDS: DOCUSATE 100 MG CAP PO SCH (20:10)
[2018-01-23] MEDS: ATORVASTATIN 40 MG TAB PO SCH (20:10)
[2018-01-23] MEDS: amLODIPine 10 MG TAB PO SCH (20:10)
[2018-01-23] MEDS: FENOFIBRATE 160 MG TAB PO SCH (20:10)
[2018-01-24] MEDS: MORPHINE SULFATE 2 MG/ML SYRINGE IV PRN ×2 (00:39→05:20)
[2018-01-24] MEDS: HYDROcodone/APAP 10-325MG 1 EACH TAB PO PRN ×5 (05:19→21:30)
[2018-01-24] MEDS: ONDANSETRON 4 MG/2 ML VIAL IVP PRN (05:25)
[2018-01-24] MEDS: cloNIDine HCL 0.2 MG TAB PO SCH ×2 (07:44→21:29)
[2018-01-24] MEDS: ASPIRIN 325 MG TAB PO SCH (07:44)
[2018-01-24] MEDS: cefTRIAXone IN SWFI 2,000 MG/20 ML SYRINGE IVP SCH (07:44)
[2018-01-24] MEDS: HEPARIN SODIUM,PORCINE 5,000 UNIT/ML 1 ML VIAL SQ SCH ×2 (07:45→21:30)
[2018-01-24] MEDS: LOSARTAN 50 MG TAB PO SCH (07:45)
[2018-01-24] MEDS: METOPROLOL TARTRATE 50 MG TAB PO SCH ×2 (07:45→21:30)
--- NOTE | 2018-01-24 08:01 | P.PN ---
Subjective Principal diagnosis: This is a continue present 8-year-old white female essentially admitted for enteritis. She has history of recurrent and chronic UTI with nephrolithiasis. She states significant pain and elevated blood pressure. No significant fever This continue presently 62-year-old white female essentially admitted for enteritis with history of nephrolithiasis and chronic pain. Appreciate nephrology and urology input. The patient's laboratories are now stabilizing. No significant fever or chills. No nausea, vomiting or diarrhea. She continues to take [place] with morphine. Significant opioid dependence is otherwise noted. Objective - Vital Signs Vital signs: Vital Signs Temp 97.9 F 01/24/18 05:00 Pulse 62 01/24/18 05:00 Resp 18 01/24/18 05:00 BP 148/70 01/24/18 05:00 Pulse Ox 96 01/24/18 05:00 Intake & Output 01/23/18 01/24/18 01/24/18 18:59 06:59 18:59 Other: Voiding Method Bedside Commode Bedside Commode # Voids 1 1 # Bowel Movements 1 1 - EENT Eyes: Absent: abnormal pupil - Respiratory Respiratory: bilateral: CTA - Cardiovascular Rhythm: regular Heart sounds: normal: S1, S2 Abnormal Heart Sounds: Absent: S3 Gallop - Gastrointestinal General gastrointestinal: Present: soft. Absent: tenderness - Psychiatric Psychiatric: Present: A&O x's 3 - Labs CBC & Chem 7: 01/23/18 07:16 01/23/18 07:16 Labs: Abnormal Lab Results - Last 24 Hours (Table) 01/23/18 Range/Units 07:16 BUN 22 H (7-17) mg/dL Assessment and Plan (1) Enteritis Current Visit: Yes Status: Acute Code(s): K52.9 - NONINFECTIVE GASTROENTERITIS AND COLITIS, UNSPECIFIED SNOMED Code(s): 32813907 (2) Left lower quadrant pain Current Visit: Yes Status: Acute Code(s): R10.32 - LEFT LOWER QUADRANT PAIN SNOMED Code(s): 888937091 (3) UTI (urinary tract infection) Current Visit: Yes Status: Acute Code(s): N39.0 - URINARY TRACT INFECTION, SITE NOT SPECIFIED SNOMED Code(s): 88717337 (4) Renal calculus Current Visit: No Status: Acute Priority: High Code(s): N20.0 - CALCULUS OF KIDNEY SNOMED Code(s): 25900463 (5) Amputated left leg Current Visit: No Status: Chronic Code(s): Z89.612 - ACQUIRED ABSENCE OF LEFT LEG ABOVE KNEE SNOMED Code(s): 229838151 (6) Amputated right leg Current Visit: No Status: Chronic Code(s): Z89.611 - ACQUIRED ABSENCE OF RIGHT LEG ABOVE KNEE SNOMED Code(s): 947894316 Plan: I will continue current regimen or treatment. Check CBC and CMP in a.m. I anticipate discharge in the next 24-48 hours if stabilizing with no fever. I also anticipate transfer back to [facility] for appropriate urology clearance of stone. Prognosis is guarded secondary to her multiple comorbidities. Unfortunate, she still struggles opiate dependence. Time with Patient: Less than 30
[2018-01-24] MEDS: MORPHINE ORAL SOLN 10 MG/5 ML CUP PO PRN ×4 (09:37→21:31)
[2018-01-24] MEDS: metroNIDAZOLE-NS PMX 500 MG in SALINE 1 100ML.BAG IVPB SCH (12:45)
[2018-01-24] MEDS: metroNIDAZOLE 500 MG TAB PO SCH ×2 (13:17→21:30)
[2018-01-24] MEDS: CIPROFLOXACIN HCL 500 MG TAB PO SCH ×2 (13:17→21:29)
[2018-01-24 13:44] LABS: Basophils # (A) 0.1 k/uL (0-0.2); Basophils % (A) 1 %; Eosinophils # (A) 0.3 k/uL (0-0.7); Eosinophils % (A) 4 %; HCT 45.6 % (34.0-46.0); HGB 14.8 gm/dL (11.4-16.0); Lymphocytes # (A) 3.2 k/uL (1.0-4.8); Lymphocytes % (A) 36 %; MCH 29.2 pg (25.0-35.0); MCHC 32.4 g/dL (31.0-37.0); Mean Platelet Volume 8.3; Monocytes # (A) 0.4 k/uL (0-1.0); Monocytes % (A) 5 %; Neutrophils # (A) 4.7 k/uL (1.3-7.7); Neutrophils % (A) 53 %; Platelet Count 388 k/uL (150-450); RBC 5.07 m/uL (3.80-5.40); RDW 13.9 % (11.5-15.5); WBC 8.8 k/uL (3.8-10.6)
--- NOTE | 2018-01-24 16:02 | PN ---
PROGRESS NOTE Patient is seen for followup for nephrolithiasis. She continues to have abdominal pain. The patient has been evaluated by Urology that is planned for followup as outpatient with her primary urologist at [facility]. PHYSICAL EXAMINATION: On examination today, blood pressure is 148/70, heart rate 66 per minute. Patient is afebrile. Examination of the heart: S1, S2. Examination lungs: Bilateral breath sounds. The patient has bilateral lower extremity above-knee amputations. LABS: Sodium 140, potassium 4.1, serum creatinine 0.62, hemoglobin 14.8 g/dL. ASSESSMENT: 1. Abdominal pain, possibly related to underlying nephrolithiasis and the patient does have a history of previous urological interventions and lithotripsies at [facility]. She he needs to follow up with her primary urologist at [facility]. 2. Pyuria with urine culture negative thus far. 3. Atrophic right kidney. 4. 3 mm calcification left kidney. 5. Hypertension, currently controlled. 6. Opiate dependence. PLAN: The patient is to follow up with her primary urologist at [facility] either as inpatient or outpatient follow up. MMODL / IJN: [id number] /
[2018-01-24] MEDS: ONDANSETRON ODT 8 MG TAB.RAPDIS PO PRN (16:39)
[2018-01-24] MEDS: ATORVASTATIN 40 MG TAB PO SCH (21:29)
[2018-01-24] MEDS: DOCUSATE 100 MG CAP PO SCH (21:29)
[2018-01-24] MEDS: amLODIPine 10 MG TAB PO SCH (21:29)
[2018-01-24] MEDS: FENOFIBRATE 160 MG TAB PO SCH (21:29)
[2018-01-24] MEDS: SENNOSIDES 8.6 MG TAB PO SCH (21:30)
[2018-01-25] MEDS: ONDANSETRON ODT 8 MG TAB.RAPDIS PO PRN (00:25)
[2018-01-25] MEDS: HYDROcodone/APAP 10-325MG 1 EACH TAB PO PRN ×3 (02:08→09:49)
[2018-01-25] MEDS: MORPHINE ORAL SOLN 10 MG/5 ML CUP PO PRN ×2 (02:09→05:43)
[2018-01-25 07:12] VITALS: BP 131/62; PULSE 64; RESP 16; TEMP 97.8
[2018-01-25] MEDS: metroNIDAZOLE 500 MG TAB PO SCH (07:28)
[2018-01-25] MEDS: METOPROLOL TARTRATE 50 MG TAB PO SCH (07:28)
[2018-01-25] MEDS: HEPARIN SODIUM,PORCINE 5,000 UNIT/ML 1 ML VIAL SQ SCH (07:28)
[2018-01-25] MEDS: ASPIRIN 325 MG TAB PO SCH (07:28)
[2018-01-25] MEDS: CIPROFLOXACIN HCL 500 MG TAB PO SCH (07:28)
[2018-01-25] MEDS: LOSARTAN 50 MG TAB PO SCH (07:28)
[2018-01-25] MEDS: cloNIDine HCL 0.2 MG TAB PO SCH (07:28)
--- NOTE | 2018-01-25 08:26 | P.DS ---
Providers Date of admission: 01/23/18 14:22 Attending physician: Dick Nguyen Consults: 01/20/18 14:40 Consult Physician Stat Consulting Provider: Citlaly Campbell Consult Reason/Comments: On the kidney disease Do you want consulting provider notified?: Yes 01/21/18 09:50 Consult Physician Routine Consulting Provider: Jaydon Donnelly Consult Reason/Comments: nephrolithiasis Do you want consulting provider notified?: Yes Primary care physician: Dick Nguyen - Discharge Diagnosis(es) (1) Enteritis Current Visit: Yes Status: Acute (2) Left lower quadrant pain Current Visit: Yes Status: Acute (3) UTI (urinary tract infection) Current Visit: Yes Status: Acute (4) Renal calculus Current Visit: No Status: Acute Priority: High (5) 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 She has elevated amylase but this is not necessary related pancreatic disease as noted on her CT scan. Urology with nephrology was consulted for appropriate treatment. She does have nephrolithiasis at the left lower pole but this will have to be addressed as an outpatient at the [facility] where she has a Urologist there. The patient is now is in still with significant pain but that given her opiate dependence, this is not necessarily abnormal for the patient. We will go ahead and discharge in stable condition to follow-up in about 3 days. Patient Condition at Discharge: Stable Plan - Discharge Summary Discharge Rx Participant: Yes New Discharge Prescriptions: New Ciprofloxacin HCl [Cipro] 500 mg PO BID #10 tab cloNIDine HCL [Catapres] 0.2 mg PO BID #60 tab metroNIDAZOLE [Flagyl] 500 mg PO BID #10 tab Continue Metoprolol Tartrate [Lopressor] 50 mg PO BID Losartan Potassium [Cozaar] 100 mg PO DAILY Fenofibrate 160 mg PO HS amLODIPine [Norvasc] 10 mg PO HS Atorvastatin [Lipitor] 40 mg PO HS #30 tab Aspirin EC [Ecotrin] 325 mg PO QAM HYDROcodone/APAP 10-325MG [[place] 10-325] 1 tab PO Q4-6H PRN #150 tab PRN Reason: Pain Sennosides [Senna] 8.6 mg PO HS Ondansetron Odt [Zofran ODT] 8 mg PO Q8HR PRN PRN Reason: Nausea Docusate [Colace] 100 mg PO HS Discontinued cloNIDine HCL [Catapres] 0.1 mg PO BID #60 tab Discharge Medication List Fenofibrate 160 mg PO HS 11/15/15 [History] Losartan Potassium [Cozaar] 100 mg PO DAILY 11/15/15 [History] Metoprolol Tartrate [Lopressor] 50 mg PO BID 11/15/15 [History] amLODIPine [Norvasc] 10 mg PO HS 03/08/17 [History] Atorvastatin [Lipitor] 40 mg PO HS #30 tab 07/05/17 [Rx] Aspirin EC [Ecotrin] 325 mg PO QAM 10/04/17 [History] HYDROcodone/APAP 10-325MG [[place] 10-325] 1 tab PO Q4-6H PRN #150 tab 11/09/17 [ Rx] Docusate [Colace] 100 mg PO HS 01/20/18 [History] Ondansetron Odt [Zofran ODT] 8 mg PO Q8HR PRN 01/20/18 [History] Sennosides [Senna] 8.6 mg PO HS 01/20/18 [History] Ciprofloxacin HCl [Cipro] 500 mg PO BID #10 tab 01/25/18 [Rx] cloNIDine HCL [Catapres] 0.2 mg PO BID #60 tab 01/25/18 [Rx] metroNIDAZOLE [Flagyl] 500 mg PO BID #10 tab 01/25/18 [Rx] Follow up Appointment(s)/Referral(s): Dick Nguyen MD [Primary Care Provider] - 3 Days Discharge Disposition: HOME SELF-CARE
[2018-01-25 08:29] LABS: ALT 34 U/L (9-52); AST 27 U/L (14-36); Albumin 3.5 g/dL (3.5-5.0); Alkaline Phosphatase 36 U/L (38-126); Anion Gap 12 mmol/L; Blood Urea Nitrogen 28 mg/dL (7-17); Calcium 9.2 mg/dL (8.4-10.2); Carbon Dioxide 20 mmol/L (22-30); Chloride 106 mmol/L (98-107); Glucose 90 mg/dL (74-99); Sodium 138 mmol/L (137-145); Total Bilirubin 0.3 mg/dL (0.2-1.3)
[2018-01-25 08:44] LABS: Potassium 4.9 mmol/L (3.5-5.1)
[2018-01-25 09:22] LABS: Basophils # (A) 0.1 k/uL (0-0.2); Basophils % (A) 1 %; Eosinophils # (A) 0.2 k/uL (0-0.7); Eosinophils % (A) 3 %; HCT 42.5 % (34.0-46.0); HGB 14.1 gm/dL (11.4-16.0); Lymphocytes # (A) 3.3 k/uL (1.0-4.8); Lymphocytes % (A) 43 %; MCH 29.2 pg (25.0-35.0); MCHC 33.2 g/dL (31.0-37.0); MCV 87.9 fL (80.0-100.0); Mean Platelet Volume 11.4; Monocytes # (A) 0.6 k/uL (0-1.0); Monocytes % (A) 7 %; Neutrophils # (A) 3.5 k/uL (1.3-7.7); Neutrophils % (A) 44 %; Platelet Count 262 k/uL (150-450); RBC 4.83 m/uL (3.80-5.40); RDW 14.1 % (11.5-15.5); WBC 7.8 k/uL (3.8-10.6)
== END 2018-01-25 10:30 | disposition home health service (06) | DRG 694 ==
LOC: EC 11:02 → 5MS5E 14:56 → OBSVTOIN 01-23 14:22
PROVIDERS: ADMIT Family Medicine; ATTEND Family Medicine
DX: N20.0 Calculus of kidney (principal); F11.20 Opioid dependence, uncomplicated; N39.0 Urinary tract infection, site not specified; K52.9 Noninfective gastroenteritis and colitis, unspecified; N28.1 Cyst of kidney, acquired; I10 Essential (primary) hypertension; E78.5 Hyperlipidemia, unspecified; F17.210 Nicotine dependence, cigarettes, uncomplicated; G89.29 Other chronic pain; K21.9 Gastro-esophageal reflux disease without esophagitis; R33.9 Retention of urine, unspecified; R51 Headache; N26.1 Atrophy of kidney (terminal); R16.1 Splenomegaly, not elsewhere classified; Z79.82 Long term (current) use of aspirin; Z79.899 Other long term (current) drug therapy; Z90.710 Acquired absence of both cervix and uterus; Z89.612 Acquired absence of left leg above knee; Z89.611 Acquired absence of right leg above knee; Z87.442 Personal history of urinary calculi; Z87.440 Personal history of urinary (tract) infections; Z88.1 Allergy status to other antibiotic agents; Z88.2 Allergy status to sulfonamides; Z90.49 Acquired absence of other specified parts of digestive tract; Z98.1 Arthrodesis status; Z90.722 Acquired absence of ovaries, bilateral; Z80.1 Family history of malignant neoplasm of trachea, bronchus and lung; Z82.49 Family history of ischemic heart disease and other diseases of the circulatory system
CPT/HCPCS: 36415; 71046; 74177; 80048; 80053; 81001; 82550; 82553; 83880; 84484; 85025; 85027; 85379; 85610; 85730; 86140; 87086; 93005; 96361; 96374; 96375; 96376; 99285

== ENCOUNTER 2018-02-17 18:52 | Inpatient (IN) | payer OTHER ==
[2018-02-17] MEDS ORDERED: SODIUM CHLORIDE 0.9% 1,000 ML IV ONE (20:14)
[2018-02-17] MEDS ORDERED: ONDANSETRON 4 MG/2 ML VIAL IVP STA ×2 (20:14→22:07)
--- NOTE | 2018-02-17 20:24 | ED ---
General Adult HPI - General Chief complaint: Abdominal Pain Stated complaint: Abd Pain Time Seen by Provider: 02/17/18 19:03 Source: patient, EMS Mode of arrival: EMS Limitations: no limitations - History of Present Illness Initial comments: Elissa is a 62-year-old female with past medical history most significant for recent diagnosis of kidney stone for which she admitted to the hospital and treated with IV antibiotics. Patient reports she had improvement in her pain and was doing quite well after that. She returns to the ER today due to progressively worsening diarrhea in the development of left lower quadrant abdominal pain. Patient reports that she has had soft bowel movements for couple of days and that she woke this morning with stabbing pain in her left lower quadrant. The pain is severe, stabbing with no relieving factors. Patient reports that the pain has persisted throughout today which prompted her to come to the ER for further evaluation. Patient reports mild nausea but no vomiting. denies any fevers, chills, vomiting, chest pain, palpitations, she denies any dysuria. She reports decreased by mouth intake today due to abdominal pain and nausea. - Related Data Home Medications Medication Instructions Recorded Confirmed Fenofibrate 160 mg PO HS 11/15/15 02/17/18 Losartan Potassium [Cozaar] 100 mg PO DAILY 11/15/15 02/17/18 Metoprolol Tartrate [Lopressor] 50 mg PO BID 11/15/15 02/17/18 amLODIPine [Norvasc] 10 mg PO HS 03/08/17 02/17/18 Aspirin EC [Ecotrin] 325 mg PO QAM 10/04/17 02/17/18 Docusate [Colace] 100 mg PO HS 01/20/18 02/17/18 Ondansetron Odt [Zofran ODT] 8 mg PO Q8HR PRN 01/20/18 02/17/18 Sennosides [Senna] 8.6 mg PO HS 01/20/18 02/17/18 HYDROcodone/APAP 10-325MG [[place] 1 tab PO Q4H PRN 02/17/18 02/17/18 10-325] Previous Rx's Medication Instructions Recorded Atorvastatin [Lipitor] 40 mg PO HS #30 tab 07/05/17 Ciprofloxacin HCl [Cipro] 500 mg PO BID #10 tab 01/25/18 cloNIDine HCL [Catapres] 0.2 mg PO BID #60 tab 01/25/18 Allergies Allergy/AdvReac Type Severity Reaction Status Date / Time sulfamethoxazole Allergy Itching Verified 02/17/18 19:07 [From Septra] trimethoprim [From Septra] Allergy Itching Verified 02/17/18 19:07 levofloxacin [From Levaquin] AdvReac Muscle Pain Verified 02/17/18 19:07 Review of Systems ROS Statement: Those systems with pertinent positive or pertinent negative responses have been documented in the HPI. ROS Other: All systems not noted in ROS Statement are negative. Constitutional: Denies: fever Respiratory: Denies: cough, dyspnea Cardiovascular: Denies: chest pain, palpitations Endocrine: Reports: fatigue Gastrointestinal: Reports: abdominal pain, nausea, diarrhea. Denies: vomiting Genitourinary: Denies: urgency, dysuria, hematuria Musculoskeletal: Denies: back pain Skin: Denies: rash, lesions Neurological: Denies: headache, weakness Psychiatric: Denies: anxiety, depression Hematological/Lymphatic: Denies: easy bleeding, easy bruising Past Medical History Past Medical History: GERD/Reflux, Hyperlipidemia, Hypertension Additional Past Medical History / Comment(s): hx urinary retention,right Nephrolithiasis, pt stated rt kidney non functioning", UTI's, patient reports she was once on insulin for diabetes but changed her diet and now does not take anything. occasional vertigo, and R arm fracture with surgery. 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 lithotripsy on left side Past Anesthesia/Blood Transfusion Reactions: No Reported Reaction Additional Past Anesthesia/Blood Transfusion Reaction / Comment(s): Pt received blood in 1978-no reaction reported. Past Psychological History: Anxiety Smoking Status: Current every day smoker Past Alcohol Use History: None Reported Past Drug Use History: None Reported - Past Family History Father Family Medical History: Cancer, Myocardial Infarction ([place]) Additional Family Medical History / Comment(s): Father had lung cancer-went into remission. He of a massive [place] in his 60's Mother Family Medical History: Cancer Additional Family Medical History / Comment(s): Mother of lung cancer at age 54 yrs. General Exam Limitations: no limitations General appearance: alert, other (Ears uncomfortable) Head exam: Present: atraumatic, normocephalic Eye exam: Present: normal appearance, PERRL ENT exam: Present: normal exam Neck exam: Present: normal inspection Respiratory exam: Absent: respiratory distress, wheezes Cardiovascular Exam: Present: regular rate, normal rhythm GI/Abdominal exam: Present: soft, tenderness (Lower quadrant), normal bowel sounds. Absent: distended, rigid Rectal exam: Present: deferred Extremities exam: Present: other (Bilateral AKA) Neurological exam: Present: alert, oriented X3 Psychiatric exam: Present: normal affect, normal mood Skin exam: Present: warm, dry Course Vital Signs 02/17/18 19:03 Temperature 97.9 F Pulse Rate 80 Respiratory 18 Rate Blood Pressure 154/72 O2 Sat by Pulse 96 Oximetry Medical Decision Making - Medical Decision Making Patient was seen and evaluated, history was obtained from the patient Patient with recent history of kidney stone and IV antibiotic use returning today with diarrhea and abdominal pain Labs, imaging ordered there is concern for C. diff colitis given the recent antibiotic use Labs with leukocytosis, significant elevated platelet level CT reveals chronic pyelonephritis with stones Urine and urine culture pending She care was discussed with the patient's primary care physician Dr. Nguyen who is very familiar with the patient. He states unfortunately patient has chronic pain issues and chronic pain from her pyelonephritis. She has been referred [facility] however due to her limited mobility she's had problems following up. At this time Dr. Nguyen accepts the patient to his service as a full admit with a consult to urology for pyelonephritis. In addition he agrees the patient is high risk for C. diff and recommends asking for such. - Lab Data Result diagrams: 02/17/18 20:30 02/17/18 20:30 Lab Results 02/17/18 02/17/18 02/17/18 Range/Units 20:30 20:30 20:30 WBC 11.5 H (3.8-10.6) k/uL RBC 5.16 (3.80-5.40) m/uL Hgb 14.7 (11.4-16.0) gm/dL Hct 44.3 (34.0-46.0) % MCV 85.9 (80.0-100.0) fL MCH 28.5 (25.0-35.0) pg MCHC 33.2 (31.0-37.0) g/dL RDW 13.7 (11.5-15.5) % Plt Count 713 H D (150-450) k/uL Neutrophils % 60 % Lymphocytes % 33 % Monocytes % 5 % Eosinophils % 1 % Basophils % 0 % Neutrophils # 6.9 (1.3-7.7) k/uL Lymphocytes # 3.8 (1.0-4.8) k/uL Monocytes # 0.5 (0-1.0) k/uL Eosinophils # 0.1 (0-0.7) k/uL Basophils # 0.0 (0-0.2) k/uL Sodium 141 (137-145) mmol/L Potassium 5.0 (3.5-5.1) mmol/L Chloride 110 H (98-107) mmol/L Carbon Dioxide 19 L (22-30) mmol/L Anion Gap 12 mmol/L BUN 22 H (7-17) mg/dL Creatinine 0.60 (0.52-1.04) mg/dL Est GFR (CKD-EPI)AfAm >90 (>60 ml/min/1.73 sqM) Est GFR (CKD-EPI)NonAf >90 (>60 ml/min/1.73 sqM) Glucose 85 (74-99) mg/dL Plasma Lactic Acid Joshua 0.7 (0.7-2.0) mmol/L Calcium 9.8 (8.4-10.2) mg/dL Total Bilirubin 0.6 (0.2-1.3) mg/dL AST 29 (14-36) U/L ALT 25 (9-52) U/L Alkaline Phosphatase 52 (38-126) U/L Total Protein 7.4 (6.3-8.2) g/dL Albumin 4.2 (3.5-5.0) g/dL Disposition Clinical Impression: Abdominal pain, Pyelonephritis, Diarrhea Disposition: ADMITTED IP TO THIS HOSP Is patient prescribed a controlled substance at d/c from ED?: No Referrals: Dick Nguyen MD [Primary Care Provider] - 1-2 days Decision Time: 22:05
[2018-02-17] MEDS: MORPHINE SULFATE 4 MG/ML SYRINGE IVP STA ×2 (20:31→22:18)
[2018-02-17 20:55] LABS: Basophils % (A) 0 %; Eosinophils # (A) 0.1 k/uL (0-0.7); Eosinophils % (A) 1 %; HCT 44.3 % (34.0-46.0); HGB 14.7 gm/dL (11.4-16.0); Lymphocytes # (A) 3.8 k/uL (1.0-4.8); Lymphocytes % (A) 33 %; MCH 28.5 pg (25.0-35.0); MCHC 33.2 g/dL (31.0-37.0); MCV 85.9 fL (80.0-100.0); Mean Platelet Volume 7.6; Monocytes # (A) 0.5 k/uL (0-1.0); Monocytes % (A) 5 %; Neutrophils # (A) 6.9 k/uL (1.3-7.7); Neutrophils % (A) 60 %; RBC 5.16 m/uL (3.80-5.40); RDW 13.7 % (11.5-15.5); WBC 11.5 k/uL (3.8-10.6)
[2018-02-17 20:59] LABS: Platelet Count 713 k/uL (150-450)
[2018-02-17 21:01] LABS: ALT 25 U/L (9-52); AST 29 U/L (14-36); Albumin 4.2 g/dL (3.5-5.0); Alkaline Phosphatase 52 U/L (38-126); Anion Gap 12 mmol/L; Blood Urea Nitrogen 22 mg/dL (7-17); Calcium 9.8 mg/dL (8.4-10.2); Carbon Dioxide 19 mmol/L (22-30); Chloride 110 mmol/L (98-107); Glucose 85 mg/dL (74-99); Sodium 141 mmol/L (137-145); Total Bilirubin 0.6 mg/dL (0.2-1.3); Total Protein 7.4 g/dL (6.3-8.2)
--- NOTE | 2018-02-17 21:26 | CT ---
EXAMINATION TYPE: CT abdomen pelvis w con DATE OF EXAM: 02/17/2018 COMPARISON: 01/20/2018 HISTORY: Left lower quadrant pain and nausea. CT DLP: 1572.3 mGycm Automated exposure control for dose reduction was used. TECHNIQUE: Helical acquisition of images was performed from the lung bases through the pelvis. CONTRAST: Performed without Oral Contrast and with IV Contrast, patient injected with 100 mL of Isovue 300. FINDINGS: The heart is enlarged. The lung bases are clear of consolidation. There is no pleural effusion. There is hiatal hernia with fluid in the lower thoracic esophagus. Liver shows no focal defect. There are clips from cholecystectomy. Bile ducts are not dilated. Spleen appears normal. There is no pancreatic mass. There is no adrenal mass. There is 1 cm low-density nodule on the right adrenal gland. There is small right kidney with cortical thinning and calcification. There is 2 cm cyst in the upper pole right kidney. Left kidney shows normal size with no hydronephrosis. There is 3 mm calculus lowe r pole left kidney. There is some deformity lower pole left kidney that could relate to chronic pyelo nephritis. There is thoracolumbar mild dextroscoliosis. The bladder distends smoothly. There is no free fluid in the pelvis. There is no evidence of pelvic mass. IMPRESSION: NONOBSTRUCTING RENAL CALCULI. DEFORMITY OF LEFT KIDNEY CONSISTENT WITH CHRONIC PYELONEPHRITIS. ATROPH IC RIGHT KIDNEY. NO SIGN OF ACUTE ABDOMEN AND PELVIS.
[2018-02-17] MEDS ORDERED: cefTRIAXone IN SWFI 1,000 MG/10 ML SYRINGE IVP STA (21:54)
[2018-02-17] MEDS ORDERED: NALOXONE 0.4 MG/ML 1 ML VIAL IV PRN (22:00)
[2018-02-17] MEDS ORDERED: MORPHINE SULFATE 4 MG/ML SYRINGE IV PRN (22:00)
[2018-02-17] MEDS ORDERED: MORPHINE SULFATE 4 MG/ML SYRINGE IVP STA (22:07)
[2018-02-17] MEDS ORDERED: MORPHINE SULFATE 5 MG/ML SYRINGE IVP STA (22:07)
[2018-02-17] MEDS ORDERED: amLODIPine 10 MG TAB ONE (23:55)
[2018-02-17] MEDS ORDERED: cloNIDine HCL 0.2 MG TAB ONE (23:55)
[2018-02-17] MEDS ORDERED: HYDROcodone/APAP 10-325MG 1 EACH TAB ONE (23:55)
[2018-02-17] MEDS ORDERED: ATORVASTATIN 40 MG TAB ONE (23:55)
[2018-02-17] MEDS ORDERED: DOCUSATE 100 MG CAP ONE (23:55)
[2018-02-17] MEDS ORDERED: METOPROLOL TARTRATE 50 MG TAB ONE (23:55)
[2018-02-18] MEDS ORDERED: MORPHINE SULFATE 4 MG/ML SYRINGE ONE ×2 (01:59→04:15)
[2018-02-18] MEDS ORDERED: HYDROcodone/APAP 10-325MG 1 EACH TAB ONE ×2 (04:10→04:15)
[2018-02-18] MEDS ORDERED: ONDANSETRON 4 MG/2 ML VIAL ONE ×2 (04:13→04:15)
[2018-02-18] MEDS: FENOFIBRATE 160 MG TAB PO SCH ×2 (05:59→20:15)
[2018-02-18] MEDS: SENNOSIDES 8.6 MG TAB PO SCH ×2 (05:59→20:16)
[2018-02-18] MEDS: SODIUM CHLORIDE 0.9% 1,000 ML IV SCH ×3 (06:01→15:29)
[2018-02-18] MEDS: METOPROLOL TARTRATE 50 MG TAB PO SCH ×3 (07:32→21:40)
[2018-02-18] MEDS: DOCUSATE 100 MG CAP PO SCH ×2 (07:32→21:41)
[2018-02-18] MEDS: amLODIPine 10 MG TAB PO SCH ×2 (07:32→20:15)
[2018-02-18] MEDS: cloNIDine HCL 0.2 MG TAB PO SCH ×3 (07:32→21:40)
[2018-02-18] MEDS: ATORVASTATIN 40 MG TAB PO SCH ×2 (07:32→20:16)
[2018-02-18] MEDS: ASPIRIN 325 MG TAB PO SCH (08:04)
[2018-02-18] MEDS: HYDROcodone/APAP 10-325MG 1 EACH TAB PO PRN ×4 (08:04→21:28)
[2018-02-18] MEDS: LOSARTAN 50 MG TAB PO SCH (09:25)
[2018-02-18] MEDS: HYDROmorphone 1 MG/ML 1 ML SYRINGE IVP PRN ×4 (09:25→21:28)
--- NOTE | 2018-02-18 13:16 | P.HPIM ---
History of Present Illness H&P Date: 02/18/18 Chief Complaint: Acute on chronic abdominal pain. The patient is a 62-year-old white female who was recently discharged for overt colitis and has continued abdominal pain. She has issues with significant nephrolithiasis and comes in with recurrent pain on the left area. She also has significant flank pain. She has been To the [facility] for appropriate treatment for her nephrolithiasis, but she still continues to have pain. We will go ahead and consult urology at this time given elements of pyelonephritis. No new findings otherwise found on CT scan of the abdomen. Review of Systems Constitutional: Reports fever, Denies chills Eyes: denies blurred vision, denies pain Respiratory: Denies cough Genitourinary: Reports dysuria, Reports pelvic pain Musculoskeletal: Denies myalgias Past Medical History Past Medical History: GERD/Reflux, Hyperlipidemia, Hypertension Additional Past Medical History / Comment(s): hx urinary retention,right Nephrolithiasis, pt stated rt kidney non functioning", UTI's, patient reports she was once on insulin for diabetes but changed her diet and now does not take anything. occasional vertigo, and R arm fracture with surgery. 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 lithotripsy on left side Past Anesthesia/Blood Transfusion Reactions: No Reported Reaction Additional Past Anesthesia/Blood Transfusion Reaction / Comment(s): Pt received blood in 1978-no reaction reported. Past Psychological History: Anxiety Additional Psychological History / Comment(s): Pt has had anxiety and panic attacks in the past but states no longer a problem. She resides with her spouse in 2 story home -has ramp.. pt has bedroom on first floor. She is independent. She in a bilateral AKA and gets around in a power wheelchair.has hospital bed. She no longer drives but her spouse drives. has [facility] care nurse Smoking Status: Current every day smoker Past Alcohol Use History: None Reported Additional Past Alcohol Use History / Comment(s): Pt states she started smoking at age 18 yrs and a pack will last her 2 days. Past Drug Use History: None Reported - Past Family History Father Family Medical History: Cancer, Myocardial Infarction ([place]) Additional Family Medical History / Comment(s): Father had lung cancer-went into remission. He of a massive [place] in his 60's Mother Family Medical History: Cancer Additional Family Medical History / Comment(s): Mother of lung cancer at age 54 yrs. Medications and Allergies Home Medications Medication Instructions Recorded Confirmed Type Fenofibrate 160 mg PO HS 11/15/15 02/17/18 History Losartan Potassium [Cozaar] 100 mg PO DAILY 11/15/15 02/17/18 History Metoprolol Tartrate [Lopressor] 50 mg PO BID 11/15/15 02/17/18 History amLODIPine [Norvasc] 10 mg PO HS 03/08/17 02/17/18 History Atorvastatin [Lipitor] 40 mg PO HS #30 tab 07/05/17 02/17/18 Rx Aspirin EC [Ecotrin] 325 mg PO QAM 10/04/17 02/17/18 History Docusate [Colace] 100 mg PO HS 01/20/18 02/17/18 History Ondansetron Odt [Zofran ODT] 8 mg PO Q8HR PRN 01/20/18 02/17/18 History Sennosides [Senna] 8.6 mg PO HS 01/20/18 02/17/18 History Ciprofloxacin HCl [Cipro] 500 mg PO BID #10 tab 01/25/18 02/17/18 Rx cloNIDine HCL [Catapres] 0.2 mg PO BID #60 tab 01/25/18 02/17/18 Rx HYDROcodone/APAP 10-325MG [[place] 1 tab PO Q4H PRN 02/17/18 02/17/18 History 10-325] Allergies Allergy/AdvReac Type Severity Reaction Status Date / Time sulfamethoxazole Allergy Itching Verified 02/17/18 19:07 [From Septra] trimethoprim [From Septra] Allergy Itching Verified 02/17/18 19:07 levofloxacin [From Levaquin] AdvReac Muscle Pain Verified 02/17/18 19:07 Physical Exam Vitals: Vital Signs Temp Pulse Pulse Resp BP BP Pulse Ox 02/18/18 06:07 98.4 F 60 16 142/70 96 02/18/18 04:56 71 02/17/18 23:00 98.4 F 71 16 147/84 93 L 02/17/18 22:23 98.9 F 76 20 172/72 97 02/17/18 19:03 97.9 F 80 18 154/72 96 Intake and Output 02/17/18 02/18/18 02/18/18 22:59 06:59 14:59 Intake Total 360 100 480 Output Total 300 Balance 60 100 480 Intake: Oral 360 100 480 Output: Urine 300 Other: Voiding Method Bedside Commode # Voids 0 Weight 63.503 kg 63.503 kg - Constitutional General appearance: no acute distress - EENT Eyes: EOMI - Neck Neck: no lymphadenopathy - Respiratory Respiratory: bilateral: CTA - Cardiovascular Rhythm: regular Heart sounds: normal: S1, S2 Abnormal Heart Sounds: S3 Gallop - Gastrointestinal General gastrointestinal: soft, no tenderness - Integumentary Integumentary: cyanotic - Neurologic Neurologic: CNII-XII intact - Musculoskeletal Bilateral below the knee amputation. - Psychiatric Psychiatric: A&O x's 3 Results CBC & Chem 7: 02/17/18 20:30 02/17/18 20:30 Labs: Abnormal Lab Results - Last 24 Hours (Table) 02/17/18 02/17/18 Range/Units 20:30 20:30 WBC 11.5 H (3.8-10.6) k/uL Plt Count 713 H D (150-450) k/uL Chloride 110 H (98-107) mmol/L Carbon Dioxide 19 L (22-30) mmol/L BUN 22 H (7-17) mg/dL Thrombosis Risk Factor Assmnt - Choose All That Apply Any of the Below Risk Factors Present?: Yes Each Factor Represents 1 point: Age 41-60 years, Obesity (BMI >25) Thrombosis Risk Factor Assessment Total Risk Factor Score: 2 Thrombosis Risk Factor Assessment Level: Low Risk Assessment and Plan (1) Pyelonephritis Current Visit: Yes Status: Acute Code(s): N12 - TUBULO-INTERSTITIAL NEPHRITIS, NOT SPCF ACUTE OR CHRONIC SNOMED Code(s): 26334790 (2) Abdominal pain Current Visit: No Status: Acute Code(s): R10.9 - UNSPECIFIED ABDOMINAL PAIN SNOMED Code(s): 75721898 (3) UTI (urinary tract infection) Current Visit: No Status: Acute Code(s): N39.0 - URINARY TRACT INFECTION, SITE NOT SPECIFIED SNOMED Code(s): 90313075 (4) Amputated left leg Current Visit: No Status: Chronic Code(s): Z89.612 - ACQUIRED ABSENCE OF LEFT LEG ABOVE KNEE SNOMED Code(s): 080144483 (5) Amputated right leg Current Visit: No Status: Chronic Code(s): Z89.611 - ACQUIRED ABSENCE OF RIGHT LEG ABOVE KNEE SNOMED Code(s): 874456278 Plan: Reconcile home medications. Antibiotic treatment for clinical pyelonephritis. Attempt at pain control although this is somewhat difficult, In an opioid- dependent patient. Otherwise, she is a full code. Check CBC and CMP in the a.m. her new graft consult neurology. Dr. Gasca's group will be covering for the weekend.
[2018-02-18 13:34] LABS: Appearance,Urine Clear (Clear); Bacteria,Urine Rare /hpf; Bilirubin,Urine Negative (Negative); Blood,Urine Negative (Negative); Color,Urine Yellow; Glucose,Urine (UA) Negative (Negative); Ketones,Urine Negative (Negative); Leukocyte Esterase,Urine Small (Negative); Mucus,Urine Rare /hpf; Nitrite,Urine Negative (Negative); PH, Urine 5.5 (5.0-8.0); Protein,Urine Trace (Negative); RBC,Urine 1 /hpf (0-5); Squamous Epithelial Cell,Urine 1 /hpf (0-4); Urobilinogen,Urine <2.0 mg/dL (<2.0); WBC,Urine 3 /hpf (0-5)
[2018-02-18 13:38] LABS: Specific Gravity,Urine 1.047 (1.001-1.035)
--- NOTE | 2018-02-18 17:11 | P.GSCN ---
History of Present Illness Consult date: 02/18/18 Reason for Consult: Kidney stone History of present illness: The patient is a 62-year-old female admitted through the emergency room yesterday evening for evaluation of severe left flank and left lower quadrant abdominal pain. The patient says that her pain was a 10 out of 10 and was associated with nausea. The nausea has been present for several weeks. She has had no vomiting. Her bowels have been loose lately but she attributes this taking a stool softener. She has had no fever or chills. She has a history of urolithiasis and last underwent removal of a left renal calculus at the [facility] in 05/2017. She was hospitalized in late 12/2017 and a computed tomography scan of the abdomen and pelvis at that time identified a 3- 4 mm nonobstructive calculus in the lower pole of the left kidney. Urine culture at that time showed no growth. The patient was seen by Dr. Donnelly due to the calculus but it was unclear whether the calculus was the cause of her pain. When the patient came to the emergency room yesterday another computed tomography scan was performed and there did not appear to be any change in the location or size of the left renal calculus. There was no evidence of hydronephrosis or ureteral dilation. The patient has an atrophic right kidney with a complex cyst which has been unchanged. The patient denies any dysuria or gross hematuria. She has had no urinary frequency and in fact her main complaint was that she was voiding infrequently. Review of Systems - Constitutional Denies chills, Denies fever - Cardiovascular Denies shortness of breath - Respiratory Denies wheezing - Gastrointestinal Reports as per HPI, Reports abdominal pain (The pain in the left flank and left abdomen sometimes radiates into the left leg) - Genitourinary Genitourinary: Reports as per HPI Past Medical History Past Medical History: GERD/Reflux, Hyperlipidemia, Hypertension Additional Past Medical History / Comment(s): hx urinary retention,right Nephrolithiasis, pt stated rt kidney non functioning", UTI's, patient reports she was once on insulin for diabetes but changed her diet and now does not take anything. occasional vertigo, and R arm fracture with surgery. 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 lithotripsy on left side Past Anesthesia/Blood Transfusion Reactions: No Reported Reaction Additional Past Anesthesia/Blood Transfusion Reaction / Comm: Pt received blood in 1978-no reaction reported. Past Psychological History: Anxiety Additional Psychological History / Comment(s): Pt has had anxiety and panic attacks in the past but states no longer a problem. She resides with her spouse in 2 story home -has ramp.. pt has bedroom on first floor. She is independent. She in a bilateral AKA and gets around in a power wheelchair.has hospital bed. She no longer drives but her spouse drives. 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 Past Drug Use History: None Reported - Past Family History Father Family Medical History: Cancer, Myocardial Infarction (SC) Additional Family Medical History / Comment(s): Father had lung cancer-went into remission. He of a massive SC in his 60's Mother Family Medical History: Cancer Additional Family Medical History / Comment(s): Mother of lung cancer at age 54 yrs. Medications and Allergies Home Medications Medication Instructions Recorded Confirmed Type Fenofibrate 160 mg PO HS 11/15/15 02/17/18 History Losartan Potassium [Cozaar] 100 mg PO DAILY 11/15/15 02/17/18 History Metoprolol Tartrate [Lopressor] 50 mg PO BID 11/15/15 02/17/18 History amLODIPine [Norvasc] 10 mg PO HS 03/08/17 02/17/18 History Atorvastatin [Lipitor] 40 mg PO HS #30 tab 07/05/17 02/17/18 Rx Aspirin EC [Ecotrin] 325 mg PO QAM 10/04/17 02/17/18 History Docusate [Colace] 100 mg PO HS 01/20/18 02/17/18 History Ondansetron Odt [Zofran ODT] 8 mg PO Q8HR PRN 01/20/18 02/17/18 History Sennosides [Senna] 8.6 mg PO HS 01/20/18 02/17/18 History Ciprofloxacin HCl [Cipro] 500 mg PO BID #10 tab 01/25/18 02/17/18 Rx cloNIDine HCL [Catapres] 0.2 mg PO BID #60 tab 01/25/18 02/17/18 Rx HYDROcodone/APAP 10-325MG [[place] 1 tab PO Q4H PRN 02/17/18 02/17/18 History 10-325] Allergies Allergy/AdvReac Type Severity Reaction Status Date / Time sulfamethoxazole Allergy Itching Verified 02/17/18 19:07 [From Septra] trimethoprim [From Septra] Allergy Itching Verified 02/17/18 19:07 levofloxacin [From Levaquin] AdvReac Muscle Pain Verified 02/17/18 19:07 Surgical - Exam Vital Signs Temp Pulse Resp BP Pulse Ox 97.9 F 80 18 154/72 96 02/17/18 19:03 02/17/18 19:03 02/17/18 19:03 02/17/18 19:03 02/17/18 19:03 - General no distress, obese - Neck no masses - Respiratory normal respiratory effort - Abdomen Abdomen: tender (left lower quadrant) - Musculoskeletal other (Bilateral above-knee amputations) Results - Labs 02/17/18 20:30 02/17/18 20:30 Abnormal Lab Results - Last 24 Hours (Table) 02/17/18 02/17/18 02/18/18 Range/Units 20:30 20:30 12:00 WBC 11.5 H (3.8-10.6) k/uL Plt Count 713 H D (150-450) k/uL Chloride 110 H (98-107) mmol/L Carbon Dioxide 19 L (22-30) mmol/L BUN 22 H (7-17) mg/dL Ur Specific [place] 1.047 H (1.001-1.035) Urine Protein Trace H (Negative) Ur Leukocyte Esterase Small H (Negative) Urine Bacteria Rare H (None) /hpf Urine Mucus Rare H (None) /hpf Diabetes panel 02/17/18 Range/Units 20:30 Sodium 141 (137-145) mmol/L Potassium 5.0 (3.5-5.1) mmol/L Chloride 110 H (98-107) mmol/L Carbon Dioxide 19 L (22-30) mmol/L BUN 22 H (7-17) mg/dL Creatinine 0.60 (0.52-1.04) mg/dL Glucose 85 (74-99) mg/dL Calcium 9.8 (8.4-10.2) mg/dL AST 29 (14-36) U/L ALT 25 (9-52) U/L Alkaline Phosphatase 52 (38-126) U/L Total Protein 7.4 (6.3-8.2) g/dL Albumin 4.2 (3.5-5.0) g/dL Calcium panel 02/17/18 Range/Units 20:30 Calcium 9.8 (8.4-10.2) mg/dL Albumin 4.2 (3.5-5.0) g/dL Pituitary panel 02/17/18 Range/Units 20:30 Sodium 141 (137-145) mmol/L Potassium 5.0 (3.5-5.1) mmol/L Chloride 110 H (98-107) mmol/L Carbon Dioxide 19 L (22-30) mmol/L BUN 22 H (7-17) mg/dL Creatinine 0.60 (0.52-1.04) mg/dL Glucose 85 (74-99) mg/dL Calcium 9.8 (8.4-10.2) mg/dL Adrenal panel 02/17/18 Range/Units 20:30 Sodium 141 (137-145) mmol/L Potassium 5.0 (3.5-5.1) mmol/L Chloride 110 H (98-107) mmol/L Carbon Dioxide 19 L (22-30) mmol/L BUN 22 H (7-17) mg/dL Creatinine 0.60 (0.52-1.04) mg/dL Glucose 85 (74-99) mg/dL Calcium 9.8 (8.4-10.2) mg/dL Total Bilirubin 0.6 (0.2-1.3) mg/dL AST 29 (14-36) U/L ALT 25 (9-52) U/L Alkaline Phosphatase 52 (38-126) U/L Total Protein 7.4 (6.3-8.2) g/dL Albumin 4.2 (3.5-5.0) g/dL Assessment and Plan (1) Flank pain Narrative/Plan: The source of the patient's left flank and left lower quadrant pain is not clear. She does have a 3-4 mm calculus in the lower pole of the left kidney which is unchanged in position from a computed tomography scan performed in late 12/2017. There is no evidence of hydronephrosis and it's unclear whether the calculus is related to her discomfort. It would be unusual for renal colic to radiate into the left leg. The patient's urinalysis does not suggest a urinary tract infection and her last urine culture in 01/17 was also no growth. If the patient's pain persists and no other causes can be determined the patient could either go back to the [facility] for removal of the calculus or she can discuss removal of the calculus here with Dr. Donnelly. Current Visit: No Status: Acute Code(s): R10.9 - UNSPECIFIED ABDOMINAL PAIN SNOMED Code(s): 478552224
[2018-02-18] MEDS: KETOROLAC 30 MG/ML 1 ML VIAL IVP PRN (20:08)
[2018-02-18] MEDS: cefTRIAXone IN SWFI 1,000 MG/10 ML SYRINGE IVP SCH (20:15)
[2018-02-18] MEDS: ONDANSETRON 4 MG/2 ML VIAL IVP PRN (21:33)
[2018-02-19] MEDS: SODIUM CHLORIDE 0.9% 1,000 ML IV SCH ×4 (00:34→22:27)
[2018-02-19] MEDS: HYDROmorphone 1 MG/ML 1 ML SYRINGE IVP PRN ×6 (01:52→22:26)
[2018-02-19] MEDS: HYDROcodone/APAP 10-325MG 1 EACH TAB PO PRN ×4 (01:53→20:43)
[2018-02-19] MEDS: KETOROLAC 30 MG/ML 1 ML VIAL IVP PRN ×3 (03:10→16:03)
[2018-02-19] MEDS: ONDANSETRON 4 MG/2 ML VIAL IVP PRN ×3 (06:02→17:57)
[2018-02-19] MEDS: LOSARTAN 50 MG TAB PO SCH (07:47)
[2018-02-19] MEDS: METOPROLOL TARTRATE 50 MG TAB PO SCH ×2 (07:48→19:38)
[2018-02-19] MEDS: ASPIRIN 325 MG TAB PO SCH (07:48)
[2018-02-19] MEDS: cloNIDine HCL 0.2 MG TAB PO SCH ×2 (07:48→19:37)
--- NOTE | 2018-02-19 13:08 | P.PN ---
Subjective Progress Note Date: 02/19/18 Principal diagnosis: Acute on chronic abdominal pain Pyelonephritis/ UTI 62-year-old white female who was recently discharged for overt colitis and has continued abdominal pain. She has issues with significant nephrolithiasis and comes in with recurrent pain on the left area. She also has significant flank pain. She has been To the [facility] for appropriate treatment for her nephrolithiasis, but she still continues to have pain. No new findings otherwise found on CT scan of the abdomen. She is admitted to the hospital for treatment of acute pyelonephritis; urology is consulted and recommendations are pending; we appreciate their help and expertise in management of this patient Objective - Vital Signs Vital signs: Vital Signs Temp 98.5 F 02/19/18 07:00 Pulse 62 02/19/18 07:00 Resp 16 02/19/18 07:00 BP 165/82 02/19/18 07:00 Pulse Ox 97 02/19/18 07:00 Intake & Output 02/18/18 02/19/18 02/19/18 18:59 06:59 18:59 Intake Total 720 Balance 720 Intake: Oral 720 Other: Voiding Method Bedside Commode Bedside Commode Bedside Commode Bedpan Bedpan Bedpan # Voids 1 4 # Bowel Movements 1 4 - Exam - Constitutional General appearance: no acute distress - EENT Eyes: EOMI - Neck Neck: no lymphadenopathy - Respiratory Respiratory: bilateral: CTA - Cardiovascular Rhythm: regular Heart sounds: normal: S1, S2 Abnormal Heart Sounds: S3 Gallop - Gastrointestinal General gastrointestinal: soft, no tenderness - Integumentary Integumentary: cyanotic - Neurologic Neurologic: CNII-XII intact - Musculoskeletal Bilateral below the knee amputation. - Psychiatric Psychiatric: A&O x's 3 - Labs CBC & Chem 7: 02/17/18 20:30 02/17/18 20:30 Labs: Abnormal Lab Results - Last 24 Hours (Table) 02/18/18 Range/Units 12:00 Ur Specific [place] 1.047 H (1.001-1.035) Urine Protein Trace H (Negative) Ur Leukocyte Esterase Small H (Negative) Urine Bacteria Rare H (None) /hpf Urine Mucus Rare H (None) /hpf Microbiology - Last 24 Hours (Table) 02/18/18 22:50 Urine Culture - Preliminary Urine,Clean Catch Assessment and Plan Assessment: 1. Acute pyelonephritis - Patient remains on Rocephin 1 g IV every 24 hours - Urine and blood cultures are obtained and are pending - We will continue with current IV antibiotics and monitor CBC; further recommendations after urine cultures available 2. Complicated UTI; urine culture is obtained and is pending - Antibiotic adjustment once urine cultures available 3. Acute on chronic abdominal pain possibly secondary to 1 and 2 - Surgical service is consulted for further evaluation; left lower quadrant pain and left flank pain source is not very clear at this point; patient does have left renal calculus which is unchanged in position from previous CT without any evidence of hydronephrosis - Surgery is recommending to continue treatment of UTI and pyelonephritis and possible transfer of patient to [facility] for removal of renal calculus if symptoms don't improve after treatment 4. Renal calculus without hydronephrosis; patient will need treatment at [facility] 5. Hypertension; remains stable on Norvasc 10 mg daily along with Catapres 0.2 mg twice a day, metoprolol 50 mg twice a day and losartan 100 mg daily - We will continue to monitor blood pressure and adjust medications if blood pressure fluctuates 6. Hyperlipidemia; continue with home statin therapy with Lipitor 40 mg by mouth daily at bedtime and fenofibrate 160 mg by mouth daily at bedtime 7. DVT prophylaxis CODE STATUS; full code Time with Patient: Greater than 30
[2018-02-19] MEDS: FENOFIBRATE 160 MG TAB PO SCH (19:36)
[2018-02-19] MEDS: DOCUSATE 100 MG CAP PO SCH (19:36)
[2018-02-19] MEDS: amLODIPine 10 MG TAB PO SCH (19:37)
[2018-02-19] MEDS: SENNOSIDES 8.6 MG TAB PO SCH (19:37)
[2018-02-19] MEDS: ATORVASTATIN 40 MG TAB PO SCH (19:38)
[2018-02-19] MEDS: cefTRIAXone IN SWFI 1,000 MG/10 ML SYRINGE IVP SCH (19:38)
[2018-02-20] MEDS: ONDANSETRON 4 MG/2 ML VIAL IVP PRN ×4 (00:08→19:26)
[2018-02-20] MEDS: HYDROcodone/APAP 10-325MG 1 EACH TAB PO PRN ×6 (01:56→21:54)
[2018-02-20] MEDS: HYDROmorphone 1 MG/ML 1 ML SYRINGE IVP PRN ×6 (02:34→21:54)
[2018-02-20] MEDS: SODIUM CHLORIDE 0.9% 1,000 ML IV SCH ×2 (06:05→14:04)
[2018-02-20] MEDS: ASPIRIN 325 MG TAB PO SCH (07:21)
[2018-02-20] MEDS: LOSARTAN 50 MG TAB PO SCH (07:21)
[2018-02-20] MEDS: METOPROLOL TARTRATE 50 MG TAB PO SCH ×2 (07:21→21:54)
[2018-02-20] MEDS: cloNIDine HCL 0.2 MG TAB PO SCH ×2 (07:21→21:54)
--- NOTE | 2018-02-20 21:52 | PN ---
PROGRESS NOTE DATE OF SERVICE: 02/20/2018 I am covering for Dr. Nguyen. INTERVAL HISTORY: This 62-year-old woman was admitted with acute pyelonephrosis, still complaining of left side abdominal pain and some loin pain also. Abdominal CT scan showed nonobstructive renal calculi and deformity of the left kidney suggestive of chronic pyelonephritis. There is no history of fever, rigors or chills at this time. Urology consultation has been done and urology has also seen the patient. No chest pain. No palpitations. No fever. The final cultures are pending at this time. PHYSICAL EXAM: Alert and oriented x3. Pulse 65, blood pressure 150/66, respiration 16, temperature 97.7, pulse ox 94% on room air. HEENT is conjunctivae normal. Oral mucosa moist. Neck is no jugular venous distention. No carotid bruit. No lymph node enlargement. Cardiovascular systems: S1, S2 muffled. Respiratory: Breath sounds diminished in the bases. ABDOMEN: Soft. Mild diffuse tenderness in the left side of the abdomen. Otherwise no guarding or rigidity. There is no mass palpable. Legs are no edema, no swelling. Central nervous system: No focal deficits. LABS: WBC 11.5, platelets 713. Cultures are pending at this time. ASSESSMENT: 1. History of pyelonephritis with abdominal pain. 2. Nonobstructive renal calculus with deformity of kidney, history of possibly chronic pyelonephritis. 3. Complicated urinary tract infection. 4. Abdominal pain. 5. Renal calculus with no evidence of hydronephrosis. 6. Hypertension. 7. Hyperlipidemia. RECOMMENDATIONS AND DISCUSSION: Recommend to continue current medications, management and symptomatic treatment. Continue with antibiotics. Closely monitor with Urology and currently the patient is on Rocephin. Continue to monitor and Dr. Nguyen will follow tomorrow. See urology note for further information. MMODL / IJN: [id number] /
[2018-02-20] MEDS: DOCUSATE 100 MG CAP PO SCH (21:54)
[2018-02-20] MEDS: FENOFIBRATE 160 MG TAB PO SCH (21:54)
[2018-02-20] MEDS: cefTRIAXone IN SWFI 1,000 MG/10 ML SYRINGE IVP SCH (21:54)
[2018-02-20] MEDS: ATORVASTATIN 40 MG TAB PO SCH (21:54)
[2018-02-20] MEDS: amLODIPine 10 MG TAB PO SCH (21:54)
[2018-02-20] MEDS: SENNOSIDES 8.6 MG TAB PO SCH (21:54)
[2018-02-21] MEDS: HYDROmorphone 1 MG/ML 1 ML SYRINGE IVP PRN ×6 (02:13→22:37)
[2018-02-21] MEDS: HYDROcodone/APAP 10-325MG 1 EACH TAB PO PRN ×5 (02:14→20:01)
[2018-02-21] MEDS: ONDANSETRON 4 MG/2 ML VIAL IVP PRN ×4 (03:02→23:21)
[2018-02-21] MEDS: SODIUM CHLORIDE 0.9% 1,000 ML IV SCH ×2 (06:06)
[2018-02-21 08:13] LABS: Anion Gap 9 mmol/L; Blood Urea Nitrogen 27 mg/dL (7-17); Calcium 9.5 mg/dL (8.4-10.2); Carbon Dioxide 24 mmol/L (22-30); Chloride 108 mmol/L (98-107); Glucose 94 mg/dL (74-99); Potassium 5.1 mmol/L (3.5-5.1); Sodium 141 mmol/L (137-145)
[2018-02-21 08:15] LABS: Basophils # (A) 0.1 k/uL (0-0.2); Basophils % (A) 1 %; Eosinophils # (A) 0.2 k/uL (0-0.7); Eosinophils % (A) 2 %; HCT 42.2 % (34.0-46.0); HGB 13.4 gm/dL (11.4-16.0); Lymphocytes # (A) 3.5 k/uL (1.0-4.8); Lymphocytes % (A) 40 %; MCH 27.8 pg (25.0-35.0); MCHC 31.8 g/dL (31.0-37.0); MCV 87.5 fL (80.0-100.0); Mean Platelet Volume 7.4; Monocytes # (A) 0.5 k/uL (0-1.0); Monocytes % (A) 6 %; Neutrophils # (A) 4.2 k/uL (1.3-7.7); Neutrophils % (A) 49 %; Platelet Count 599 k/uL (150-450); RBC 4.83 m/uL (3.80-5.40); RDW 13.9 % (11.5-15.5); WBC 8.6 k/uL (3.8-10.6)
[2018-02-21] MEDS: cloNIDine HCL 0.2 MG TAB PO SCH ×2 (08:21→20:00)
[2018-02-21] MEDS: LOSARTAN 50 MG TAB PO SCH (08:21)
[2018-02-21] MEDS: ASPIRIN 325 MG TAB PO SCH (08:21)
[2018-02-21] MEDS: METOPROLOL TARTRATE 50 MG TAB PO SCH ×2 (08:21→20:00)
[2018-02-21] MEDS: PANTOPRAZOLE 40 MG TABLET PO SCH ×2 (09:53→16:23)
--- NOTE | 2018-02-21 18:35 | P.PN ---
Subjective Progress Note Date: 02/21/18 Principal diagnosis: The patient is here essentially for left flank pain. Colitis is now resolved from previous admission. There is a question whether this is caused from history of renal calculus. She states current pain control is unacceptable. I have told her that we can increase the pain medication while she is here, however I will not increase her pain medicine outside the hospital. Hopefully [facility] can assist with this calculus. No significant voiding difficulties otherwise stated except for easy urination. Objective - Vital Signs Vital signs: Vital Signs Temp 98.9 F 02/21/18 14:43 Pulse 57 L 02/21/18 14:43 Resp 16 02/21/18 14:43 BP 139/69 02/21/18 14:43 Pulse Ox 95 02/21/18 14:43 Intake & Output 02/20/18 02/21/18 02/21/18 18:59 06:59 18:59 Intake Total 1200 1200 Output Total 0 Balance 1200 0 1200 Intake: Oral 1200 1200 Output: Urine 0 Other: Voiding Method Bedside Commode Bedside Commode Bedside Commode Bedpan Bedpan # Voids 1 2 1 # Bowel Movements 0 1 1 - Constitutional General appearance: Present: average body habitus, obese - EENT Eyes: Absent: abnormal pupil - Respiratory Respiratory: bilateral: CTA - Cardiovascular Rhythm: regular Abnormal Heart Sounds: Absent: S3 Gallop - Musculoskeletal Musculoskeletal: Present: gait normal - Labs CBC & Chem 7: 02/21/18 07:26 02/21/18 07:26 Labs: Abnormal Lab Results - Last 24 Hours (Table) 02/21/18 02/21/18 Range/Units 07:26 07:26 Plt Count 599 H (150-450) k/uL Chloride 108 H (98-107) mmol/L BUN 27 H (7-17) mg/dL Assessment and Plan (1) Pyelonephritis Current Visit: Yes Status: Acute Code(s): N12 - TUBULO-INTERSTITIAL NEPHRITIS, NOT SPCF ACUTE OR CHRONIC SNOMED Code(s): 71220482 (2) Abdominal pain Current Visit: No Status: Acute Code(s): R10.9 - UNSPECIFIED ABDOMINAL PAIN SNOMED Code(s): 97601192 (3) UTI (urinary tract infection) Current Visit: No Status: Acute Code(s): N39.0 - URINARY TRACT INFECTION, SITE NOT SPECIFIED SNOMED Code(s): 78015516 (4) Amputated left leg Current Visit: No Status: Chronic Code(s): Z89.612 - ACQUIRED ABSENCE OF LEFT LEG ABOVE KNEE SNOMED Code(s): 605757995 (5) Amputated right leg Current Visit: No Status: Chronic Code(s): Z89.611 - ACQUIRED ABSENCE OF RIGHT LEG ABOVE KNEE SNOMED Code(s): 377493041 Plan: Continue current regimen of treatment. Again, chronic pain control with opiate dependence is a problem with this particular patient. Anticipate discharge in next 24-48 hours. check CBC and CMP in the a.m. Time with Patient: Less than 30
[2018-02-21] MEDS: SENNOSIDES 8.6 MG TAB PO SCH (20:00)
[2018-02-21] MEDS: DOCUSATE 100 MG CAP PO SCH (20:00)
[2018-02-21] MEDS: FENOFIBRATE 160 MG TAB PO SCH (20:00)
[2018-02-21] MEDS: ATORVASTATIN 40 MG TAB PO SCH (20:00)
[2018-02-21] MEDS: amLODIPine 10 MG TAB PO SCH (20:00)
[2018-02-21] MEDS: cefTRIAXone IN SWFI 1,000 MG/10 ML SYRINGE IVP SCH ×2 (20:01→22:34)
[2018-02-22] MEDS: HYDROmorphone 1 MG/ML 1 ML SYRINGE IVP PRN ×5 (06:29→23:07)
[2018-02-22] MEDS: KETOROLAC 30 MG/ML 1 ML VIAL IVP PRN ×2 (06:30→21:02)
[2018-02-22] MEDS: ONDANSETRON 4 MG/2 ML VIAL IVP PRN ×3 (06:57→19:50)
[2018-02-22] MEDS: ASPIRIN 325 MG TAB PO SCH (09:22)
[2018-02-22] MEDS: HYDROcodone/APAP 10-325MG 1 EACH TAB PO PRN ×3 (09:22→20:07)
[2018-02-22] MEDS: METOPROLOL TARTRATE 50 MG TAB PO SCH ×2 (09:22→19:53)
[2018-02-22] MEDS: PANTOPRAZOLE 40 MG TABLET PO SCH ×2 (09:23→16:01)
[2018-02-22] MEDS: cloNIDine HCL 0.2 MG TAB PO SCH (09:23)
[2018-02-22] MEDS: LOSARTAN 50 MG TAB PO SCH (09:24)
[2018-02-22 09:45] LABS: ALT 27 U/L (9-52); AST 20 U/L (14-36); Albumin 3.5 g/dL (3.5-5.0); Alkaline Phosphatase 37 U/L (38-126); Anion Gap 10 mmol/L; Blood Urea Nitrogen 37 mg/dL (7-17); Calcium 9.2 mg/dL (8.4-10.2); Carbon Dioxide 21 mmol/L (22-30); Chloride 108 mmol/L (98-107); Glucose 142 mg/dL (74-99); Sodium 139 mmol/L (137-145); Total Bilirubin 0.3 mg/dL (0.2-1.3); Total Protein 5.9 g/dL (6.3-8.2)
[2018-02-22 10:37] LABS: HGB 13.3 gm/dL (11.4-16.0); MCH 28.4 pg (25.0-35.0); MCHC 32.5 g/dL (31.0-37.0); MCV 87.5 fL (80.0-100.0); Mean Platelet Volume 7.6; Platelet Count 543 k/uL (150-450); RBC 4.69 m/uL (3.80-5.40); RDW 13.9 % (11.5-15.5); WBC 8.4 k/uL (3.8-10.6)
[2018-02-22] MEDS: cloNIDine HCL 0.1 MG TAB PO SCH (19:52)
[2018-02-22] MEDS: amLODIPine 10 MG TAB PO SCH (19:52)
[2018-02-22] MEDS: ATORVASTATIN 40 MG TAB PO SCH (19:52)
[2018-02-22] MEDS: SENNOSIDES 8.6 MG TAB PO SCH (19:53)
[2018-02-22] MEDS: FENOFIBRATE 160 MG TAB PO SCH (19:53)
[2018-02-22] MEDS: DOCUSATE 100 MG CAP PO SCH (19:53)
[2018-02-22] MEDS: cefTRIAXone IN SWFI 1,000 MG/10 ML SYRINGE IVP SCH (20:45)
[2018-02-23] MEDS: HYDROmorphone 1 MG/ML 1 ML SYRINGE IVP PRN ×5 (03:42→20:02)
[2018-02-23] MEDS: ONDANSETRON 4 MG/2 ML VIAL IVP PRN ×2 (05:34→12:00)
[2018-02-23] MEDS: LOSARTAN 50 MG TAB PO SCH (07:53)
[2018-02-23] MEDS: cloNIDine HCL 0.1 MG TAB PO SCH ×2 (07:54→19:23)
[2018-02-23] MEDS: ASPIRIN 325 MG TAB PO SCH (07:54)
[2018-02-23] MEDS: PANTOPRAZOLE 40 MG TABLET PO SCH ×2 (07:54→17:15)
[2018-02-23] MEDS: METOPROLOL TARTRATE 50 MG TAB PO SCH ×2 (07:54→19:22)
[2018-02-23] MEDS: HYDROcodone/APAP 10-325MG 1 EACH TAB PO PRN ×3 (09:42→17:48)
--- NOTE | 2018-02-23 14:55 | PN ---
PROGRESS NOTE DATE OF SERVICE: 02/23/2018 I am covering for Dr. Nguyen. This is a 62-year-old woman who was admitted with pyelonephritis, also had renal calculus. Patient came in with abdominal pain, dysuria. No chest pain. No palpitations. No fever. PHYSICAL EXAM: Alert and oriented x3, pulse 62, blood pressure 149/77, respiration 18, temperature 98.4, pulse ox 98% on room air, HEENT: Conjunctivae normal. NECK: No jugular venous distension. CARDIOVASCULAR SYSTEM: S1, S2, muffled. RESPIRATORY: Breath sounds diminished at the bases, no rhonchi. No crackles. Abdomen is soft, nontender. NERVOUS SYSTEM: No focal deficits. LABS: WBC 8.8, hemoglobin 13.3. ASSESSMENT: 1. Pyelonephritis with abdominal pain. 2. Dysuria. 3. Nonobstructive renal calculus with deformity of the kidney with possible chronic pyelonephritis. 4. Complicated urinary tract infection. 5. Abdominal pain. 6. Renal calculus, no evidence of hydronephrosis. 7. Hypertension. 8. Hyperlipidemia. RECOMMENDATION: Recommend to continue current management and symptomatic treatment. Continue with antibiotics. I would also recommend Infectious Disease evaluation and Urology evaluation as well and if the patient may be discharged home if okay with ID and Urology. No chest pain. No palpitations. No fever. Continue the rest of the medications. Discussed with the patient and further recommendations to follow. EARLE / LEONELN: [id number] /
[2018-02-23] MEDS: ATORVASTATIN 40 MG TAB PO SCH (19:21)
[2018-02-23] MEDS: SENNOSIDES 8.6 MG TAB PO SCH (19:21)
[2018-02-23] MEDS: DOCUSATE 100 MG CAP PO SCH (19:22)
[2018-02-23] MEDS: amLODIPine 10 MG TAB PO SCH (19:22)
[2018-02-23] MEDS: FENOFIBRATE 160 MG TAB PO SCH (19:22)
[2018-02-23] MEDS: cefTRIAXone IN SWFI 1,000 MG/10 ML SYRINGE IVP SCH (19:23)
[2018-02-24] MEDS ORDERED: HYDROmorphone 1 MG/ML 1 ML SYRINGE ONE ×2 (00:10)
[2018-02-24] MEDS ORDERED: HYDROcodone/APAP 10-325MG 1 EACH TAB ONE (00:10)
[2018-02-24] MEDS ORDERED: ONDANSETRON 4 MG/2 ML VIAL ONE (00:10)
[2018-02-24] MEDS: HYDROcodone/APAP 10-325MG 1 EACH TAB PO PRN ×3 (06:04→14:28)
--- NOTE | 2018-02-24 07:57 | CONS ---
CONSULTATION DATE OF SERVICE: 02/23/2018 REASON FOR CONSULTATION: Pyelonephritis. HISTORY OF PRESENT ILLNESS: The patient is a 62-year-old female who presented to the ER at [facility] on 02/17/2018 with chief complaint of abdominal pain. Pain has been mostly in the left lower abdominal area with some radiation to the groin. Pain described it to be more of a sharp in nature at times stabbing, almost 10 out of 10 when she presented to the hospital with no significant relieving factors. The patient felt nauseated, but no vomiting. Did have some associated diarrhea. Patient denies any high-grade fever, rigors and chills. With these symptoms, the patient was evaluated by the ER physician. The patient did have a CT of abdomen pelvis completed with nonobstructive renal calculi, deformity of the left kidney consistent with chronic pyelonephritis, atrophic right kidney, no sign of acute abdomen. On presentation, the patient has pain in afebrile. The patient did have a white count of 11.5 that has subsequently normalized. The patient did have a UA which did show small leukocyte esterases and rare WBC. Subsequently the patient did have diarrhea and stool for C difficile was negative. The patient's cultures 01/21 has been negative. Patient has been treated with Rocephin. Infectious Disease was consulted today for further recommendation regarding antibiotic therapy. REVIEW OF SYSTEMS: CONSTITUTIONAL: Positive for weakness, but denies any high-grade fever. EYES: No complaint. ENT: No complaint. RESPIRATORY: No complaint. CARDIOVASCULAR: No complaint. GENITOURINARY: As per HPI. GASTROINTESTINAL: As per HPI. MUSCULOSKELETAL: No complaint. INTEGUMENTARY: No complaint. PSYCHOLOGICAL: No complaint. ENDOCRINE: No complaint. NEUROLOGICAL: No complaint. PAST MEDICAL HISTORY: Her past medical history is significant for kidney stones, hypertension, hyperlipidemia, gastroesophageal reflux disease, and UTI. PAST SURGICAL HISTORY: , cholecystectomy, hysterectomy. Patient bilateral [id number] amputation due to defect, cervical fusion, lithotripsy. SOCIAL HISTORY: Current everyday smoker. No drinking or drug use. FAMILY HISTORY: Father history of MT and lung cancer. Mother history of lung cancer. ALLERGIES: SULFA and LEVOFLOXACIN. MEDICATION: Medications currently include the patient is on [place], Norvasc, aspirin, Lipitor, Rocephin, Catapres, Colace, Lofibra, Dilaudid, Cozaar, Lopressor, Narcan, Zofran, and Protonix. PHYSICAL EXAMINATION: On examination, blood pressure is 162/74 with a pulse of 64, temperature 98.6. He is 96% on room air. General description is a middle aged female, lying in bed in no distress. HEENT examination shows no pallor or scleral icterus. Oral mucous membrane is dry. No pharyngeal erythema or thrush. NECK: Trachea is central. There is no thyromegaly. LUNGS: Unlabored breathing, clear to auscultation anteriorly. No wheeze or crackle. HEART: S1 and S2, regular rate and rhythm. ABDOMEN: Soft, no tenderness. No guarding. No rigidity. SKIN EXAMINATION: No rash or mass palpable. NEUROLOGICAL: Patient is awake, alert, oriented x3. Mood and affect normal. LABS: Hemoglobin 13.3, white count of 8.4, admission white count 11.5. BUN of 37, creatinine 0.61. Electrolytes have been normal. Liver enzymes are normal. Stool for C. difficile was negative. Urine shows small leukocyte esterases and no significant WBC. DIAGNOSTIC IMPRESSION AND PLAN: The patient admitted to the hospital with left flank pain with some radiation down to the leg area in a patient who did have a history of nephrolithiasis. A CT abdomen pelvis was suggestive of possible left pyelonephritis. However, the patient is currently not running any fever. Did have an elevated white count. Clinically doubt infectious etiology to be responsible for her current symptoms could be related to her kidney stone or related to her possible spine. PLAN: 1. May continue short course of IV Rocephin however in view of the clinical suspicion of underlying infectious with the cultures remaining to be negative antibiotic can be safely discontinued. 2. Further management of her underlying pain per Urology. Thank you for this consultation. Will follow this patient along with you. MMODL / IJN: [id number] /
[2018-02-24] MEDS: PANTOPRAZOLE 40 MG TABLET PO SCH (08:06)
[2018-02-24] MEDS: LOSARTAN 50 MG TAB PO SCH (08:06)
[2018-02-24] MEDS: ASPIRIN 325 MG TAB PO SCH (08:06)
[2018-02-24] MEDS: METOPROLOL TARTRATE 50 MG TAB PO SCH (08:06)
[2018-02-24] MEDS: cloNIDine HCL 0.1 MG TAB PO SCH (08:06)
[2018-02-24] MEDS: HYDROmorphone 1 MG/ML 1 ML SYRINGE IVP PRN ×2 (08:06→11:50)
[2018-02-24] MEDS: ONDANSETRON 4 MG/2 ML VIAL IVP PRN ×2 (09:10→15:09)
[2018-02-24 09:48] VITALS: BMI 42.7
[2018-02-24 15:33] VITALS: BP 163/70; PULSE 61; RESP 19; TEMP 98.6
--- NOTE | 2018-02-24 19:15 | PN ---
PROGRESS NOTE DATE OF SERVICE: 02/24/2018. REASON FOR FOLLOWUP: Left pyelonephritis and antibiotic recommendation. INTERVAL HISTORY: The patient is seen on rounds this afternoon. The patient has been afebrile. She currently complains of pain in the left flank area. Denies having any chest pain or shortness of breath. No abdominal pain, no diarrhea. EXAMINATION: Her blood pressure is 133/70 with a pulse of 51, temperature 98.6. She is 92% on room air. General description is a middle-aged female up in the bed in no distress. RESPIRATORY SYSTEM: Unlabored breathing. Decreased breath sounds in base. No wheeze. HEART: S1, S2. Regular rate and rhythm. ABDOMEN: Soft, no tenderness. LABS: No new labs have been obtained today. Her urine culture has been negative. DIAGNOSTIC IMPRESSION AND PLAN: Patient with left flank pain could be related to her renal stone. Clinically doubt infectious etiology as the patient is afebrile. White count normal. Urine was negative. Urine culture is negative. Antibiotic can be safely discontinued and management of her kidney stone per her urologist. Continue supportive care. MMODL / IJN: [id number] /
--- NOTE | 2018-02-24 20:42 | DS ---
DISCHARGE SUMMARY DATE OF SERVICE: 02/24/2018 FINAL DIAGNOSES: 1. Acute pyelonephritis, abdominal pain, present on admission. 2. Dysuria. 3. Nonobstructive renal calculus with deformity of the kidney with possible chronic pyelonephritis. 4. Complicated urinary tract infection. 5. Abdominal pain. 6. Renal calculus with no evidence of hydronephrosis. 7. Hypertension. 8. Hyperlipidemia. DISCHARGE DISPOSITION: The patient will be discharged in stable condition with guarded prognosis. HISTORY OF PRESENT ILLNESS: This 62-year-old woman with a past medical history of multiple medical problems, being followed by Dr. Nguyen in outpatient setting admitted with features of pyelonephritis and abdominal pain, treated symptomatically, improved. Cultures are negative. Urology and Dr. Doyle from Infectious Disease saw the patient. Urology recommended either evaluation at [facility] or outpatient follow up with Dr. Donnelly. On exam, vital signs are stable. CARDIOVASCULAR: S1, S2 ABDOMEN: Soft, nontender. NERVOUS SYSTEM: No focal deficits. DISCHARGED ADVICE AND MEDICATIONS: 1. Diet is cardiac. 2. Activity limited until followup. 3. Follow up with Dr. Nguyen as mentioned earlier. 4. Follow with Dr. Donnelly as mentioned earlier. 5. Home care is being arranged. MEDICATIONS: 1. Norvasc 10 mg q.h.s. 2. Ecotrin 325 mg p.o. q.a.m. 3. Colace 100 mg q.h.s. 4. Fenofibrate 160 mg q.h.s. 5. Cozaar 100 mg p.o. daily. 6. Lopressor 50 mg p.o. b.i.d. 7. Zofran 8 mg q.8h p.r.n. 8. Senna 8.6 mg q.h.s. 9. Tylenol 750 mg q.6h p.r.n. 10.Lipitor 40 mg q.h.s. 11.Clonidine 0.2 mg p.o. b.i.d. 12.Hydrocodone 10 mg q.6h p.r.n. as before. Once again, the patient is discharged in stable condition with guarded prognosis. MMODL / IJN: [id number] /
== END 2018-02-24 15:49 | disposition home health service (06) | DRG 690 ==
LOC: EC 18:52 → 4MS4W 22:01
PROVIDERS: ADMIT Family Medicine; ATTEND Family Medicine
DX: N10 Acute pyelonephritis (principal); N11.1 Chronic obstructive pyelonephritis; N20.0 Calculus of kidney; E11.9 Type 2 diabetes mellitus without complications; E78.5 Hyperlipidemia, unspecified; F17.200 Nicotine dependence, unspecified, uncomplicated; F41.0 Panic disorder [episodic paroxysmal anxiety]; G89.29 Other chronic pain; I10 Essential (primary) hypertension; K21.9 Gastro-esophageal reflux disease without esophagitis; N26.1 Atrophy of kidney (terminal); Z79.4 Long term (current) use of insulin; Z79.82 Long term (current) use of aspirin; Z79.899 Other long term (current) drug therapy; Z80.1 Family history of malignant neoplasm of trachea, bronchus and lung; Z82.49 Family history of ischemic heart disease and other diseases of the circulatory system; Z87.442 Personal history of urinary calculi; Z89.611 Acquired absence of right leg above knee; Z89.612 Acquired absence of left leg above knee; Z90.710 Acquired absence of both cervix and uterus; N39.0 Urinary tract infection, site not specified; Z87.81 Personal history of (healed) traumatic fracture; Z99.3 Dependence on wheelchair; Z79.891 Long term (current) use of opiate analgesic; Z88.1 Allergy status to other antibiotic agents
CPT/HCPCS: 36415; 74177; 80048; 80053; 81001; 83605; 85025; 85027; 87086; 87324; 96361; 96374; 96375; 96376; 99285

== ENCOUNTER 2018-04-28 15:51 | Emergency (ER) | payer OTHER ==
--- NOTE | 2018-04-28 16:34 | XR ---
EXAMINATION TYPE: XR chest 2V DATE OF EXAM: 04/28/2018 COMPARISON: 01/20/2018 HISTORY: Chest pain TECHNIQUE: Frontal and lateral views of the chest are obtained. FINDINGS: There is an enlarged heart. There is mild pulmonary congestion. There is slight blunting o f costophrenic angles. There are chest leads. Bony thorax is intact. IMPRESSION: There is probably mild heart failure. No definite change compared to last exam. Small pl eural effusions.
[2018-04-28 17:10] LABS: Basophils # (A) 0.1 k/uL (0-0.2); Basophils % (A) 1 %; Eosinophils # (A) 0.1 k/uL (0-0.7); Eosinophils % (A) 1 %; HCT 44.4 % (34.0-46.0); HGB 14.6 gm/dL (11.4-16.0); Lymphocytes # (A) 2.5 k/uL (1.0-4.8); Lymphocytes % (A) 32 %; MCH 28.3 pg (25.0-35.0); MCHC 32.9 g/dL (31.0-37.0); MCV 85.9 fL (80.0-100.0); Monocytes # (A) 0.6 k/uL (0-1.0); Monocytes % (A) 8 %; Neutrophils # (A) 4.4 k/uL (1.3-7.7); Neutrophils % (A) 57 %; Platelet Count 457 k/uL (150-450); RBC 5.16 m/uL (3.80-5.40); RDW 14.4 % (11.5-15.5); WBC 7.8 k/uL (3.8-10.6)
[2018-04-28 17:22] LABS: INR 1.1 (<1.2); Prothrombin Time 10.5 sec (9.0-12.0)
[2018-04-28 17:37] LABS: ALT 31 U/L (9-52); AST 25 U/L (14-36); Albumin 4.1 g/dL (3.5-5.0); Alkaline Phosphatase 52 U/L (38-126); Anion Gap 9 mmol/L; Blood Urea Nitrogen 22 mg/dL (7-17); Calcium 9.9 mg/dL (8.4-10.2); Carbon Dioxide 23 mmol/L (22-30); Chloride 112 mmol/L (98-107); Creatine Kinase 47 U/L (30-135); Glucose 89 mg/dL (74-99); Lipase 345 U/L (23-300); Magnesium 1.6 mg/dL (1.6-2.3); Potassium 4.1 mmol/L (3.5-5.1); Sodium 144 mmol/L (137-145); Total Bilirubin 0.3 mg/dL (0.2-1.3)
[2018-04-28] MEDS ORDERED: MORPHINE SULFATE 4 MG/ML SYRINGE IVP STA (17:37)
[2018-04-28] MEDS ORDERED: ONDANSETRON 4 MG/2 ML VIAL IVP STA (17:43)
[2018-04-28 17:48] LABS: Creatine Kinase MB 0.6 ng/mL (0.0-2.4); Troponin I <0.012 ng/mL (0.000-0.034)
--- NOTE | 2018-04-28 17:56 | ED ---
General Adult HPI - General Chief complaint: Chest Pain Stated complaint: Chest Pain Time Seen by Provider: 04/28/18 16:21 Source: EMS, RN notes reviewed, old records reviewed Mode of arrival: EMS Limitations: no limitations - History of Present Illness Initial comments: This is a 8-year-old female the ER for evasive chest pain chest pain abdominal pain. Pain rating to her flank. Patient has history of pancreatitis, history of multiple episodes of different parts of pain. Patient denies shortness of breath. Patient states he gets this pain persistently. Denies drugs or alcohol currently. No recent surgical surgeon travel history no fevers cough or congestion. No real modifying factors for patient's pain pain is been persistent. - Related Data Home Medications Medication Instructions Recorded Confirmed Fenofibrate 160 mg PO HS 11/15/15 04/29/18 Losartan Potassium [Cozaar] 100 mg PO DAILY 11/15/15 04/29/18 Metoprolol Tartrate [Lopressor] 50 mg PO BID 11/15/15 04/29/18 amLODIPine [Norvasc] 10 mg PO DAILY 03/08/17 04/29/18 Aspirin EC [Ecotrin] 325 mg PO QAM 10/04/17 04/29/18 Prochlorperazine [Compazine] 10 mg PO Q8H PRN 04/28/18 04/29/18 Previous Rx's Medication Instructions Recorded cloNIDine HCL [Catapres] 0.2 mg PO BID #60 tab 01/25/18 HYDROcodone/APAP 10-325MG [[place] 1 tab PO Q6H PRN #10 tab 02/24/18 10-325] Allergies Allergy/AdvReac Type Severity Reaction Status Date / Time sulfamethoxazole Allergy Itching Verified 04/29/18 18:23 [From Septra] trimethoprim [From Septra] Allergy Itching Verified 04/29/18 18:23 levofloxacin [From Levaquin] AdvReac Muscle Pain Verified 04/29/18 18:23 Review of Systems ROS Statement: Those systems with pertinent positive or pertinent negative responses have been documented in the HPI. ROS Other: All systems not noted in ROS Statement are negative. 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 occasional vertigo, and R arm fracture with surgery. 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 lithotripsy on left side Past Anesthesia/Blood Transfusion Reactions: No Reported Reaction Additional Past Anesthesia/Blood Transfusion Reaction / Comment(s): Pt received blood in 1978-no reaction reported. Past Psychological History: Anxiety Smoking Status: Current every day smoker Past Alcohol Use History: None Reported Past Drug Use History: None Reported - Past Family History Father Family Medical History: Cancer, Myocardial Infarction (OK) Additional Family Medical History / Comment(s): Father had lung cancer-went into remission. He of a massive [place] in his 60's Mother Family Medical History: Cancer Additional Family Medical History / Comment(s): Mother of lung cancer at age 54 yrs. General Exam Limitations: no limitations General appearance: alert, in no apparent distress Head exam: Present: atraumatic, normocephalic, normal inspection Eye exam: Present: normal appearance, PERRL, EOMI. Absent: scleral icterus, conjunctival injection, periorbital swelling ENT exam: Present: normal exam, mucous membranes moist Neck exam: Present: normal inspection. Absent: tenderness, meningismus, lymphadenopathy Respiratory exam: Present: normal lung sounds bilaterally. Absent: respiratory distress, wheezes, rales, rhonchi, stridor Cardiovascular Exam: Present: regular rate, normal rhythm, normal heart sounds. Absent: systolic murmur, diastolic murmur, rubs, gallop, clicks GI/Abdominal exam: Present: soft, normal bowel sounds. Absent: distended, tenderness, guarding, rebound, rigid Extremities exam: Present: normal inspection, full ROM, normal capillary refill. Absent: tenderness, pedal edema, joint swelling, calf tenderness Back exam: Present: normal inspection Neurological exam: Present: alert, oriented X3, CN II-XII intact Psychiatric exam: Present: normal affect, normal mood Skin exam: Present: warm, dry, intact, normal color. Absent: rash Course Vital Signs 04/28/18 04/28/18 04/28/18 15:54 17:55 19:03 Temperature 99.1 F Pulse Rate 72 66 65 Respiratory 16 18 16 Rate Blood Pressure 152/67 149/75 148/67 O2 Sat by Pulse 95 98 97 Oximetry 04/28/18 20:35 Temperature 98.7 F Pulse Rate 66 Respiratory 18 Rate Blood Pressure 149/90 O2 Sat by Pulse 98 Oximetry - Reevaluation(s) Reevaluation #1: Medical record is reviewed and patient is well-known to this emergency room, labs are compared to prior EKG Findings - EKG Comments: EKG Findings:: EKG shows normal sinus rhythm rate of 72, DC 150, QRS 76, QTc 440 Medical Decision Making - Medical Decision Making 62 female to the ER with left-sided pain. Chronic pain. Patient sent better with pain control, CT labwork are normal and patient can be discharged - Lab Data Result diagrams: 04/28/18 16:13 04/28/18 16:13 Lab Results 04/28/18 04/28/18 04/28/18 Range/Units 16:13 16:13 16:13 WBC 7.8 (3.8-10.6) k/uL RBC 5.16 (3.80-5.40) m/uL Hgb 14.6 (11.4-16.0) gm/dL Hct 44.4 (34.0-46.0) % MCV 85.9 (80.0-100.0) fL MCH 28.3 (25.0-35.0) pg MCHC 32.9 (31.0-37.0) g/dL RDW 14.4 (11.5-15.5) % Plt Count 457 H (150-450) k/uL Neutrophils % 57 % Lymphocytes % 32 % Monocytes % 8 % Eosinophils % 1 % Basophils % 1 % Neutrophils # 4.4 (1.3-7.7) k/uL Lymphocytes # 2.5 (1.0-4.8) k/uL Monocytes # 0.6 (0-1.0) k/uL Eosinophils # 0.1 (0-0.7) k/uL Basophils # 0.1 (0-0.2) k/uL PT (9.0-12.0) sec INR (<1.2) APTT (22.0-30.0) sec Sodium 144 (137-145) mmol/L Potassium 4.1 (3.5-5.1) mmol/L Chloride 112 H (98-107) mmol/L Carbon Dioxide 23 (22-30) mmol/L Anion Gap 9 mmol/L BUN 22 H (7-17) mg/dL Creatinine 0.69 (0.52-1.04) mg/dL Est GFR (CKD-EPI)AfAm >90 (>60 ml/min/1.73 sqM) Est GFR (CKD-EPI)NonAf >90 (>60 ml/min/1.73 sqM) Glucose 89 (74-99) mg/dL Calcium 9.9 (8.4-10.2) mg/dL Magnesium 1.6 (1.6-2.3) mg/dL Total Bilirubin 0.3 (0.2-1.3) mg/dL AST 25 (14-36) U/L ALT 31 (9-52) U/L Alkaline Phosphatase 52 (38-126) U/L Total Creatine Kinase 47 (30-135) U/L CK-MB (CK-2) 0.6 (0.0-2.4) ng/mL CK-MB (CK-2) Rel Index 1.3 Troponin I <0.012 (0.000-0.034) ng/mL Total Protein 7.0 (6.3-8.2) g/dL Albumin 4.1 (3.5-5.0) g/dL Lipase 345 H (23-300) U/L Urine Color Urine Appearance (Clear) Urine pH (5.0-8.0) Ur Specific [place] (1.001-1.035) Urine Protein (Negative) Urine Glucose (UA) (Negative) Urine Ketones (Negative) Urine Blood (Negative) Urine Nitrite (Negative) Urine Bilirubin (Negative) Urine Urobilinogen (<2.0) mg/dL Ur Leukocyte Esterase (Negative) Urine RBC (0-5) /hpf Urine WBC (0-5) /hpf Ur Squamous Epith Cells (0-4) /hpf Urine Bacteria (None) /hpf Urine Mucus (None) /hpf 09/27/18 09/27/18 Range/Units 16:13 18:02 WBC (3.8-10.6) k/uL RBC (3.80-5.40) m/uL Hgb (11.4-16.0) gm/dL Hct (34.0-46.0) % MCV (80.0-100.0) fL MCH (25.0-35.0) pg MCHC (31.0-37.0) g/dL RDW (11.5-15.5) % Plt Count (150-450) k/uL Neutrophils % % Lymphocytes % % Monocytes % % Eosinophils % % Basophils % % Neutrophils # (1.3-7.7) k/uL Lymphocytes # (1.0-4.8) k/uL Monocytes # (0-1.0) k/uL Eosinophils # (0-0.7) k/uL Basophils # (0-0.2) k/uL PT 10.5 (9.0-12.0) sec INR 1.1 (<1.2) APTT 25.0 (22.0-30.0) sec Sodium (137-145) mmol/L Potassium (3.5-5.1) mmol/L Chloride (98-107) mmol/L Carbon Dioxide (22-30) mmol/L Anion Gap mmol/L BUN (7-17) mg/dL Creatinine (0.52-1.04) mg/dL Est GFR (CKD-EPI)AfAm (>60 ml/min/1.73 sqM) Est GFR (CKD-EPI)NonAf (>60 ml/min/1.73 sqM) Glucose (74-99) mg/dL Calcium (8.4-10.2) mg/dL Magnesium (1.6-2.3) mg/dL Total Bilirubin (0.2-1.3) mg/dL AST (14-36) U/L ALT (9-52) U/L Alkaline Phosphatase (38-126) U/L Total Creatine Kinase (30-135) U/L CK-MB (CK-2) (0.0-2.4) ng/mL CK-MB (CK-2) Rel Index Troponin I (0.000-0.034) ng/mL Total Protein (6.3-8.2) g/dL Albumin (3.5-5.0) g/dL Lipase (23-300) U/L Urine Color Yellow Urine Appearance Clear (Clear) Urine pH 5.5 (5.0-8.0) Ur Specific [place] 1.018 (1.001-1.035) Urine Protein Negative (Negative) Urine Glucose (UA) Negative (Negative) Urine Ketones Negative (Negative) Urine Blood Negative (Negative) Urine Nitrite Negative (Negative) Urine Bilirubin Negative (Negative) Urine Urobilinogen <2.0 (<2.0) mg/dL Ur Leukocyte Esterase Trace H (Negative) Urine RBC 1 (0-5) /hpf Urine WBC 5 (0-5) /hpf Ur Squamous Epith Cells <1 (0-4) /hpf Urine Bacteria Few H (None) /hpf Urine Mucus Rare H (None) /hpf - Radiology Data Radiology results: report reviewed (Chest x-ray CT abdomen and pelvis negative for acute disease), image reviewed Disposition Clinical Impression: Chest pain, Acute pancreatitis, Intractable abdominal pain Disposition: HOME SELF-CARE Condition: Good Instructions: Flank Pain (ED) Is patient prescribed a controlled substance at d/c from ED?: No Referrals: Dick Nguyen MD [Primary Care Provider] - 1-2 days
[2018-04-28 18:26] LABS: Appearance,Urine Clear (Clear); Bacteria,Urine Few /hpf; Bilirubin,Urine Negative (Negative); Blood,Urine Negative (Negative); Color,Urine Yellow; Glucose,Urine (UA) Negative (Negative); Ketones,Urine Negative (Negative); Leukocyte Esterase,Urine Trace (Negative); Mucus,Urine Rare /hpf; Nitrite,Urine Negative (Negative); PH, Urine 5.5 (5.0-8.0); Protein,Urine Negative (Negative); RBC,Urine 1 /hpf (0-5); Specific Gravity,Urine 1.018 (1.001-1.035); Squamous Epithelial Cell,Urine <1 /hpf (0-4); Urobilinogen,Urine <2.0 mg/dL (<2.0); WBC,Urine 5 /hpf (0-5)
--- NOTE | 2018-04-28 18:44 | CT ---
EXAMINATION TYPE: CT abdomen pelvis w con DATE OF EXAM: 04/28/2018 COMPARISON: 02/17/2018 HISTORY: Left flank pain. CT DLP: 1581.5 mGycm Automated exposure control for dose reduction was used. TECHNIQUE: Helical acquisition of images was performed from the lung bases through the pelvis. CONTRAST: Performed without Oral Contrast and with IV Contrast, patient injected with 100 mL of Isovue M300. FINDINGS: The heart is enlarged. There is hiatal hernia with fluid level. Lung bases are clear of infiltrate. T here is no pleural effusion. There is no pericardial effusion. Stomach is otherwise normal. Liver spleen pancreas appear normal. There are clips from cholecystectomy. Bile ducts are not dilated . There is no adrenal mass. Right kidney shows cortical thinning. There is 8 mm calculus lower pole rig ht kidney. There is no hydronephrosis. Left kidney has normal overall size. There is no hydronephrosi s. Ureters are not dilated. Bladder distends smoothly. There are diverticula in the sigmoid colon. Th ere is no retroperitoneal adenopathy. There is no mesenteric adenopathy or edema. I see no intestinal wall thickening. There is no inguinal adenopathy or hernia. Lumbar spine is intact. There is some cortical thinning on the lower pole left kidney that could rela te to old pyelonephritis. There is 2 cm cyst upper pole right kidney. There is deformity of the left hip with apparent old subcapital fracture of the left femur. IMPRESSION: RIGHT RENAL ATROPHY CORTICAL CYST AND NONOBSTRUCTING CALCULUS. CHANGES OF CHRONIC PYELONEPHRITIS AND SCARRING IN THE LOWER POLE LEFT KIDNEY. NO RENAL OBSTRUCTION. SIGMOID DIVERTICULOSIS IS MILD WITHOUT EVIDENCE OF DIVERTICULITIS. NO ACUTE ABNORMALITY AND NO SIGNIFICANT CHANGE COMPARED TO LAST EXAM.
[2018-04-28] MEDS ORDERED: HYDROmorphone 0.5 MG/0.5 ML SYRINGE IVP STA (19:48)
[2018-04-28] MEDS ORDERED: HYDROmorphone 1 MG/ML 1 ML SYRINGE IVP STA (19:50)
[2018-04-28 20:43] VITALS: BP 149/90; PULSE 66; RESP 18; TEMP 98.7
== END 2018-04-28 20:41 | disposition home or self-care (01) ==
LOC: EC 15:51
DX: K85.90 Acute pancreatitis without necrosis or infection, unspecified (principal); R07.9 Chest pain, unspecified; E78.5 Hyperlipidemia, unspecified; I10 Essential (primary) hypertension; E11.9 Type 2 diabetes mellitus without complications; F41.9 Anxiety disorder, unspecified; F17.200 Nicotine dependence, unspecified, uncomplicated; Z87.442 Personal history of urinary calculi; Z90.722 Acquired absence of ovaries, bilateral; Z90.49 Acquired absence of other specified parts of digestive tract; Z90.710 Acquired absence of both cervix and uterus; Z98.1 Arthrodesis status; Z96.0 Presence of urogenital implants; Z98.890 Other specified postprocedural states; Z79.82 Long term (current) use of aspirin; Z79.899 Other long term (current) drug therapy; Z88.1 Allergy status to other antibiotic agents; Z88.2 Allergy status to sulfonamides
CPT/HCPCS: 36415; 93005; 80053; 82550; 82553; 83690; 83735; 84484; 85025; 85610; 85730; 81001; 87086; 71046; 74177; 99285; 96374; 96375 ×2; J2270; J2405; J1170; Q9967

== ENCOUNTER 2018-04-29 18:08 | Observation (INO) | payer OTHER ==
[2018-04-29] MEDS ORDERED: SODIUM CHLORIDE 0.9% 1,000 ML IV STA (18:33)
[2018-04-29] MEDS ORDERED: HYDROmorphone 1 MG/ML 1 ML SYRINGE IVP STA ×2 (18:34→20:26)
[2018-04-29] MEDS ORDERED: ONDANSETRON 4 MG/2 ML VIAL IVP STA (18:34)
--- NOTE | 2018-04-29 18:41 | ED ---
Female Urogenital HPI <Max Rodriguez - Last Filed: 04/29/18 21:00> - General Source: patient, RN notes reviewed Mode of arrival: EMS Limitations: no limitations <Yasmeen Tobar - Last Filed: 04/30/18 00:51> - General Chief complaint: Urogenital Stated complaint: Abdominal pain Time Seen by Provider: 04/29/18 18:13 - History of Present Illness Initial comments: This is a 62-year-old female who presents to the emergency department with chief complaint of left-sided flank pain and abdominal pain. Patient does have a history of nephrolithiasis. Patient was seen here in the emergency department yesterday and an abdominal computed tomography scan was performed. This revealed no acute abnormalities. Patient states that her pain was controlled when she was discharged home. She states that the pain returned and is now worsening. She states the pain is sharp, shooting and is constant. Patient states that she has been nauseous and vomiting up phlegm. She denies fevers or chills, chest pain or shortness of breath, diarrhea or constipation, dysuria or hematuria. (Yasmeen Tobar) - Related Data Home Medications Medication Instructions Recorded Confirmed Fenofibrate 160 mg PO HS 11/15/15 04/29/18 Losartan Potassium [Cozaar] 100 mg PO DAILY 11/15/15 04/29/18 Metoprolol Tartrate [Lopressor] 50 mg PO BID 11/15/15 04/29/18 amLODIPine [Norvasc] 10 mg PO DAILY 03/08/17 04/29/18 Aspirin EC [Ecotrin] 325 mg PO QAM 10/04/17 04/29/18 Prochlorperazine [Compazine] 10 mg PO Q8H PRN 04/28/18 04/29/18 Previous Rx's Medication Instructions Recorded cloNIDine HCL [Catapres] 0.2 mg PO BID #60 tab 01/25/18 HYDROcodone/APAP 10-325MG [[place] 1 tab PO Q6H PRN #10 tab 02/24/18 10-325] Allergies Allergy/AdvReac Type Severity Reaction Status Date / Time sulfamethoxazole Allergy Itching Verified 04/29/18 18:23 [From Septra] trimethoprim [From Septra] Allergy Itching Verified 04/29/18 18:23 levofloxacin [From Levaquin] AdvReac Muscle Pain Verified 04/29/18 18:23 Review of Systems ROS Other: All systems not noted in ROS Statement are negative. <Max Rodriguez - Last Filed: 04/29/18 21:00> ROS Other: All systems not noted in ROS Statement are negative. <Yasmeen Tobar - Last Filed: 04/30/18 00:51> ROS Statement: Those systems with pertinent positive or pertinent negative responses have been documented in the HPI. 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 occasional vertigo, and R arm fracture with surgery. 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 lithotripsy on left side Past Anesthesia/Blood Transfusion Reactions: No Reported Reaction Additional Past Anesthesia/Blood Transfusion Reaction / Comment(s): Pt received blood in 1978-no reaction reported. Past Psychological History: No Psychological Hx Reported Smoking Status: Current every day smoker Past Alcohol Use History: None Reported Past Drug Use History: None Reported - Past Family History Father Family Medical History: Cancer, Myocardial Infarction ([place]) Additional Family Medical History / Comment(s): Father had lung cancer-went into remission. He of a massive [place] in his 60's Mother Family Medical History: Cancer Additional Family Medical History / Comment(s): Mother of lung cancer at age 54 yrs. <Yasmeen Tobar - Last Filed: 04/30/18 00:51> General Exam <Max Rodriguez - Last Filed: 04/29/18 21:00> Limitations: no limitations <Yasmeen Tobar - Last Filed: 04/30/18 00:51> - General Exam Comments Initial Comments: General: Awake and alert, well-developed; tearful and in mild distress due to pain. HEENT: Head atraumatic, normocephalic. Pupils are equal, round and reactive to light. Extraocular movements intact. Oropharynx moist without erythema or exudate. Neck: Supple. Normal ROM. Cardiovascular: Regular rate and rhythm. No murmurs, rubs or gallops. Chest symmetrical. Respiratory: Lungs clear to auscultation bilaterally. No wheezes, rales or rhonchi. Normal respiratory effort with no use of accessory muscles. Abdomen: Soft with mild distention. Tenderness on palpation of the left flank and upper and lower quadrants. No rigidity, rebound or guarding. Normal bowel sounds in all 4 quadrants. Musculoskeletal: Bilateral above-knee amputations. Upper extremities normal range of motion and no tenderness. Skin: [place], warm and dry without rashes or lesions. Neurological: Alert and oriented x3. CN II-XII grossly intact. Speech is fluent and answers are appropriate. No focal neuro deficits. (Yasmeen Tobar) Course <Max Rodriguez - Last Filed: 04/29/18 21:00> <Yasmeen Tobar - Last Filed: 04/30/18 00:51> Vital Signs 04/29/18 04/29/18 04/29/18 18:12 20:39 20:44 Temperature 98.0 F Pulse Rate 80 79 Respiratory 18 18 Rate Blood Pressure 109/68 193/99 O2 Sat by Pulse 98 97 Oximetry 04/29/18 04/29/18 21:08 21:36 Temperature 98.2 F Pulse Rate 79 80 Respiratory 18 18 Rate Blood Pressure 195/90 160/74 O2 Sat by Pulse 95 95 Oximetry - Reevaluation(s) Reevaluation #1: 04/29/18 20:49 Patient reevaluated by myself, Dr. Rodriguez. Patient complains of continued nausea and states she's been spitting up. Patient has continued left flank pain. Patient did have computed tomography scan done yesterday. Results reviewed. Patient updated on results. Secondary to continued symptoms Dr. brandt has been paged for admission covering for Dr. Nguyen. 04/29/18 21:00 Case was discussed in detail with Dr. brandt, who will admit. (Max Rodriguez) Medical Decision Making - Lab Data Result diagrams: 04/29/18 19:00 04/29/18 19:00 <Max Rodriguez - Last Filed: 04/29/18 21:00> - Lab Data Result diagrams: 04/29/18 19:00 04/29/18 19:00 - Radiology Data Radiology results: report reviewed <Yasmeen Tobar - Last Filed: 04/30/18 00:51> - Medical Decision Making This is a 62-year-old female who presents to the emergency department with chief complaint of left flank pain that radiates to the left side of her abdomen. Patient has a history of nephrolithiasis. She was seen here in the emergency department yesterday with the same symptoms but states that the pain has returned and is worsening. There are no significant changes in laboratory studies when compared to yesterday's results. UA shows moderate bacteria, moderate leukocyte esterase and 10 white blood cells. Patient given dose of Rocephin in the emergency department. Urine culture is pending. Patient does not meet sepsis criteria. X-ray KUB reveals no significant changes compared to old exam and no calcifications over the kidneys. Case discussed with attending physician, Dr. Rodriguez who also evaluated the patient. Patient continues to complain of pain and nausea. She continues to spit up phlegm. Patient will be admitted for left flank pain and vomiting to Dr. Brandt with consult to Dr. Oro. Patient is in agreement for admission. She is in no acute distress. (Yasmeen Tobar) - Lab Data Lab Results 04/29/18 04/29/18 04/29/18 Range/Units 19:00 19:00 19:00 WBC 7.5 (3.8-10.6) k/uL RBC 5.17 (3.80-5.40) m/uL Hgb 14.7 (11.4-16.0) gm/dL Hct 44.6 (34.0-46.0) % MCV 86.3 (80.0-100.0) fL MCH 28.4 (25.0-35.0) pg MCHC 32.9 (31.0-37.0) g/dL RDW 14.3 (11.5-15.5) % Plt Count 397 (150-450) k/uL Neutrophils % 41 % Lymphocytes % 48 % Monocytes % 6 % Eosinophils % 2 % Basophils % 1 % Neutrophils # 3.1 (1.3-7.7) k/uL Lymphocytes # 3.6 (1.0-4.8) k/uL Monocytes # 0.5 (0-1.0) k/uL Eosinophils # 0.1 (0-0.7) k/uL Basophils # 0.1 (0-0.2) k/uL Sodium 140 (137-145) mmol/L Potassium 4.1 (3.5-5.1) mmol/L Chloride 108 H (98-107) mmol/L Carbon Dioxide 21 L (22-30) mmol/L Anion Gap 11 mmol/L BUN 19 H (7-17) mg/dL Creatinine 0.62 (0.52-1.04) mg/dL Est GFR (CKD-EPI)AfAm >90 (>60 ml/min/1.73 sqM) Est GFR (CKD-EPI)NonAf >90 (>60 ml/min/1.73 sqM) Glucose 91 (74-99) mg/dL Calcium 9.8 (8.4-10.2) mg/dL Total Bilirubin 0.5 (0.2-1.3) mg/dL AST 25 (14-36) U/L ALT 22 (9-52) U/L Alkaline Phosphatase 53 (38-126) U/L Total Protein 7.0 (6.3-8.2) g/dL Albumin 3.9 (3.5-5.0) g/dL Amylase 62 (30-110) U/L Lipase 371 H (23-300) U/L Urine Color Urine Appearance (Clear) Urine pH (5.0-8.0) Ur Specific [place] (1.001-1.035) Urine Protein (Negative) Urine Glucose (UA) (Negative) Urine Ketones (Negative) Urine Blood (Negative) Urine Nitrite (Negative) Urine Bilirubin (Negative) Urine Urobilinogen (<2.0) mg/dL Ur Leukocyte Esterase (Negative) Urine RBC (0-5) /hpf Urine WBC (0-5) /hpf Ur Squamous Epith Cells (0-4) /hpf Urine Bacteria (None) /hpf Urine Mucus (None) /hpf 04/29/18 Range/Units 19:00 WBC (3.8-10.6) k/uL RBC (3.80-5.40) m/uL Hgb (11.4-16.0) gm/dL Hct (34.0-46.0) % MCV (80.0-100.0) fL MCH (25.0-35.0) pg MCHC (31.0-37.0) g/dL RDW (11.5-15.5) % Plt Count (150-450) k/uL Neutrophils % % Lymphocytes % % Monocytes % % Eosinophils % % Basophils % % Neutrophils # (1.3-7.7) k/uL Lymphocytes # (1.0-4.8) k/uL Monocytes # (0-1.0) k/uL Eosinophils # (0-0.7) k/uL Basophils # (0-0.2) k/uL Sodium (137-145) mmol/L Potassium (3.5-5.1) mmol/L Chloride (98-107) mmol/L Carbon Dioxide (22-30) mmol/L Anion Gap mmol/L BUN (7-17) mg/dL Creatinine (0.52-1.04) mg/dL Est GFR (CKD-EPI)AfAm (>60 ml/min/1.73 sqM) Est GFR (CKD-EPI)NonAf (>60 ml/min/1.73 sqM) Glucose (74-99) mg/dL Calcium (8.4-10.2) mg/dL Total Bilirubin (0.2-1.3) mg/dL AST (14-36) U/L ALT (9-52) U/L Alkaline Phosphatase (38-126) U/L Total Protein (6.3-8.2) g/dL Albumin (3.5-5.0) g/dL Amylase (30-110) U/L Lipase (23-300) U/L Urine Color Light Yellow Urine Appearance Clear (Clear) Urine pH 6.0 (5.0-8.0) Ur Specific [place] 1.012 (1.001-1.035) Urine Protein Negative (Negative) Urine Glucose (UA) Negative (Negative) Urine Ketones Negative (Negative) Urine Blood Negative (Negative) Urine Nitrite Negative (Negative) Urine Bilirubin Negative (Negative) Urine Urobilinogen <2.0 (<2.0) mg/dL Ur Leukocyte Esterase Moderate H (Negative) Urine RBC 1 (0-5) /hpf Urine WBC 10 H (0-5) /hpf Ur Squamous Epith Cells 1 (0-4) /hpf Urine Bacteria Moderate H (None) /hpf Urine Mucus Rare H (None) /hpf - Radiology Data X-ray KUB impression: Nonacute abdomen. Stable calcification in the right mid abdomen. No significant change compared to old exam. (Yasmeen Tobar) Disposition <Max Rodriguez - Last Filed: 04/29/18 21:00> Is patient prescribed a controlled substance at d/c from ED?: No <Yasmeen Tobar - Last Filed: 04/30/18 00:51> Clinical Impression: Left flank pain, Vomiting Disposition: ADMITTED IP TO THIS HOSP Condition: Good
[2018-04-29 19:33] LABS: Basophils # (A) 0.1 k/uL (0-0.2); Basophils % (A) 1 %; Eosinophils # (A) 0.1 k/uL (0-0.7); Eosinophils % (A) 2 %; HCT 44.6 % (34.0-46.0); HGB 14.7 gm/dL (11.4-16.0); Lymphocytes # (A) 3.6 k/uL (1.0-4.8); Lymphocytes % (A) 48 %; MCH 28.4 pg (25.0-35.0); MCHC 32.9 g/dL (31.0-37.0); MCV 86.3 fL (80.0-100.0); Monocytes # (A) 0.5 k/uL (0-1.0); Monocytes % (A) 6 %; Neutrophils # (A) 3.1 k/uL (1.3-7.7); Neutrophils % (A) 41 %; Platelet Count 397 k/uL (150-450); RBC 5.17 m/uL (3.80-5.40); RDW 14.3 % (11.5-15.5); WBC 7.5 k/uL (3.8-10.6)
[2018-04-29 19:36] LABS: Appearance,Urine Clear (Clear); Bacteria,Urine Moderate /hpf; Bilirubin,Urine Negative (Negative); Blood,Urine Negative (Negative); Color,Urine Light Yellow; Glucose,Urine (UA) Negative (Negative); Ketones,Urine Negative (Negative); Leukocyte Esterase,Urine Moderate (Negative); Mucus,Urine Rare /hpf; Nitrite,Urine Negative (Negative); Protein,Urine Negative (Negative); RBC,Urine 1 /hpf (0-5); Specific Gravity,Urine 1.012 (1.001-1.035); Squamous Epithelial Cell,Urine 1 /hpf (0-4); Urobilinogen,Urine <2.0 mg/dL (<2.0); WBC,Urine 10 /hpf (0-5)
--- NOTE | 2018-04-29 19:38 | XR ---
EXAMINATION TYPE: XR KUB DATE OF EXAM: 04/29/2018 COMPARISON: 03/08/2017 HISTORY: Abdominal pain TECHNIQUE: 2 views supine FINDINGS: There are clips from cholecystectomy. There is no sign of intestinal obstruction or pneumop eritoneum. Fecal pattern is normal. There is a 1 cm calcification in the right mid abdomen. There is deformity of left femoral head consistent with old fracture or hip dysplasia. I see no calcification over the kidneys. IMPRESSION: Nonacute abdomen. Stable calcification. No significant change compared to old exam.
[2018-04-29 19:44] LABS: ALT 22 U/L (9-52); AST 25 U/L (14-36); Albumin 3.9 g/dL (3.5-5.0); Alkaline Phosphatase 53 U/L (38-126); Amylase 62 U/L (30-110); Anion Gap 11 mmol/L; Blood Urea Nitrogen 19 mg/dL (7-17); Calcium 9.8 mg/dL (8.4-10.2); Carbon Dioxide 21 mmol/L (22-30); Chloride 108 mmol/L (98-107); Glucose 91 mg/dL (74-99); Lipase 371 U/L (23-300); Potassium 4.1 mmol/L (3.5-5.1); Sodium 140 mmol/L (137-145); Total Bilirubin 0.5 mg/dL (0.2-1.3)
[2018-04-29] MEDS ORDERED: NALOXONE 0.4 MG/ML 1 ML VIAL IV PRN ×2 (20:43→20:48)
[2018-04-29] MEDS ORDERED: ACETAMINOPHEN TAB 325 MG TAB PO PRN (20:46)
[2018-04-29] MEDS: SODIUM CHLORIDE 0.9% 1,000 ML IV SCH (21:03)
[2018-04-29] MEDS: cloNIDine HCL 0.2 MG TAB PO SCH (21:34)
[2018-04-29] MEDS: HYDROmorphone 1 MG/ML 1 ML SYRINGE IVP PRN (22:56)
[2018-04-29 23:12] VITALS: BMI 23.4
[2018-04-30] MEDS: HYDROmorphone 1 MG/ML 1 ML SYRINGE IVP PRN ×8 (02:03→23:24)
[2018-04-30] MEDS: ONDANSETRON 4 MG/2 ML VIAL IVP PRN ×2 (07:04→17:06)
[2018-04-30] MEDS: LOSARTAN 50 MG TAB PO SCH (08:05)
[2018-04-30] MEDS: cloNIDine HCL 0.2 MG TAB PO SCH ×2 (08:05→20:23)
[2018-04-30] MEDS: amLODIPine 10 MG TAB PO SCH (08:05)
[2018-04-30] MEDS: METOPROLOL TARTRATE 50 MG TAB PO SCH ×2 (08:05→20:23)
[2018-04-30] MEDS: SODIUM CHLORIDE 0.9% 1,000 ML IV SCH (09:56)
--- NOTE | 2018-04-30 10:28 | P.GSCN ---
History of Present Illness Consult date: 04/30/18 Reason for Consult: Left flank pain History of present illness: We were consulted to see this patient for left flank pain. Patient gives a history of recurrent ureterolithiasis. She apparently has a nonfunctioning right kidney. She has been seen by local urologist and also urologists at the [facility] the past. We'll last several days she has had increasing pain in the left flank. Pain radiates down to the left groin. She describes decreased urine output. No hematuria. CAT scan shows possible chronic pyelonephritis lower pole left kidney. No left ureteral occlusion seen on CAT scan from 2 days ago. No bowel complaints. Normal appetite. Review of Systems The patient denies any acute changes in vision or hearing, no dysphagia or odynophagia, no chest pain or shortness of breath, no dysuria or hematuria, no headache, no runny nose, no rectal bleeding or melena, no unexplained weight loss Past Medical History Past Medical History: GERD/Reflux, Hyperlipidemia, Hypertension Additional Past Medical History / Comment(s): hx urinary retention,right Nephrolithiasis, pt stated rt kidney non functioning", UTI's, patient reports she was once on insulin for diabetes but changed her diet and now does not take anything. occasional vertigo, and R arm fracture with surgery. 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 lithotripsy on left side Past Anesthesia/Blood Transfusion Reactions: No Reported Reaction Additional Past Anesthesia/Blood Transfusion Reaction / Comm: Pt received blood in 1978-no reaction reported. Past Psychological History: No Psychological Hx Reported Smoking Status: Current every day smoker Past Alcohol Use History: None Reported Past Drug Use History: None Reported - Past Family History Father Family Medical History: Cancer, Myocardial Infarction ([place]) Additional Family Medical History / Comment(s): Father had lung cancer-went into remission. He of a massive [place] in his 60's Mother Family Medical History: Cancer Additional Family Medical History / Comment(s): Mother of lung cancer at age 54 yrs. Medications and Allergies Home Medications Medication Instructions Recorded Confirmed Type Fenofibrate 160 mg PO HS 11/15/15 04/29/18 History Losartan Potassium [Cozaar] 100 mg PO DAILY 11/15/15 04/29/18 History Metoprolol Tartrate [Lopressor] 50 mg PO BID 11/15/15 04/29/18 History amLODIPine [Norvasc] 10 mg PO DAILY 03/08/17 04/29/18 History Aspirin EC [Ecotrin] 325 mg PO QAM 10/04/17 04/29/18 History cloNIDine HCL [Catapres] 0.2 mg PO BID #60 tab 01/25/18 04/29/18 Rx HYDROcodone/APAP 10-325MG [[place] 1 tab PO Q6H PRN #10 tab 02/24/18 04/29/18 Rx 10-325] Prochlorperazine [Compazine] 10 mg PO Q8H PRN 04/28/18 04/29/18 History Allergies Allergy/AdvReac Type Severity Reaction Status Date / Time sulfamethoxazole Allergy Itching Verified 04/29/18 18:23 [From Septra] trimethoprim [From Septra] Allergy Itching Verified 04/29/18 18:23 levofloxacin [From Levaquin] AdvReac Muscle Pain Verified 04/29/18 18:23 Surgical - Exam Vital Signs Temp Pulse Resp BP Pulse Ox 98.0 F 80 18 109/68 98 04/29/18 18:12 04/29/18 18:12 04/29/18 18:12 04/29/18 18:12 04/29/18 18:12 Physical exam: General: Well-developed, well-nourished HEENT: Normocephalic, sclerae nonicteric Abdomen: Left flank tenderness, nondistended Extremities: No edema Neuro: Alert and oriented Results - Labs 04/29/18 19:00 04/29/18 19:00 Abnormal Lab Results - Last 24 Hours (Table) 04/29/18 04/29/18 04/29/18 Range/Units 19:00 19:00 19:00 Chloride 108 H (98-107) mmol/L Carbon Dioxide 21 L (22-30) mmol/L BUN 19 H (7-17) mg/dL Lipase 371 H (23-300) U/L Ur Leukocyte Esterase Moderate H (Negative) Urine WBC 10 H (0-5) /hpf Urine Bacteria Moderate H (None) /hpf Urine Mucus Rare H (None) /hpf Microbiology - Last 24 Hours (Table) 04/29/18 19:00 Urine Culture - Preliminary Urine,Voided Diabetes panel 04/29/18 Range/Units 19:00 Sodium 140 (137-145) mmol/L Potassium 4.1 (3.5-5.1) mmol/L Chloride 108 H (98-107) mmol/L Carbon Dioxide 21 L (22-30) mmol/L BUN 19 H (7-17) mg/dL Creatinine 0.62 (0.52-1.04) mg/dL Glucose 91 (74-99) mg/dL Calcium 9.8 (8.4-10.2) mg/dL AST 25 (14-36) U/L ALT 22 (9-52) U/L Alkaline Phosphatase 53 (38-126) U/L Total Protein 7.0 (6.3-8.2) g/dL Albumin 3.9 (3.5-5.0) g/dL Calcium panel 04/29/18 Range/Units 19:00 Calcium 9.8 (8.4-10.2) mg/dL Albumin 3.9 (3.5-5.0) g/dL Pituitary panel 04/29/18 Range/Units 19:00 Sodium 140 (137-145) mmol/L Potassium 4.1 (3.5-5.1) mmol/L Chloride 108 H (98-107) mmol/L Carbon Dioxide 21 L (22-30) mmol/L BUN 19 H (7-17) mg/dL Creatinine 0.62 (0.52-1.04) mg/dL Glucose 91 (74-99) mg/dL Calcium 9.8 (8.4-10.2) mg/dL Adrenal panel 04/29/18 Range/Units 19:00 Sodium 140 (137-145) mmol/L Potassium 4.1 (3.5-5.1) mmol/L Chloride 108 H (98-107) mmol/L Carbon Dioxide 21 L (22-30) mmol/L BUN 19 H (7-17) mg/dL Creatinine 0.62 (0.52-1.04) mg/dL Glucose 91 (74-99) mg/dL Calcium 9.8 (8.4-10.2) mg/dL Total Bilirubin 0.5 (0.2-1.3) mg/dL AST 25 (14-36) U/L ALT 22 (9-52) U/L Alkaline Phosphatase 53 (38-126) U/L Total Protein 7.0 (6.3-8.2) g/dL Albumin 3.9 (3.5-5.0) g/dL Assessment and Plan (1) Left flank pain Narrative/Plan: Patient's symptoms seem to be more urologic in origin. She does have an elevated lipase but amylase is normal. Pancreas on CAT scan appears normal. Recommend urology evaluation. Will follow. Current Visit: Yes Status: Acute Code(s): R10.9 - UNSPECIFIED ABDOMINAL PAIN SNOMED Code(s): 010348946
[2018-04-30] MEDS ORDERED: PROCHLORPERAZINE 10 MG TAB PO PRN (13:02)
[2018-04-30] MEDS ORDERED: TEMAZEPAM 15 MG CAP PO PRN (13:02)
[2018-04-30] MEDS: HYDROcodone/APAP 10-325MG 1 EACH TAB PO PRN ×2 (13:19→19:29)
[2018-04-30] MEDS: PANTOPRAZOLE 40 MG/10 ML VIAL IVP SCH (14:28)
--- NOTE | 2018-04-30 14:57 | P.GSCN ---
History of Present Illness Consult date: 04/30/18 History of present illness: The patient is a 62-year-old female admitted to the hospital for persistent left -sided flank pain of indeterminate etiology. This is been going on a few days. The patient does have a history of nephrolithiasis. She underwent a percutaneous nephrostolithotomy at the [facility] last year. She has an atrophic right kidney with a stone in it. That the [facility] I told her not have anything done with this. The pain patient has is in her left SI joint region radiating to her left lower quadrant. She also pain into her left leg. She also states that her bladder is been uncomfortable. Urine is quite unremarkable. Her white blood cell count is normal. She had a CAT scan of the abdomen and pelvis. There is atrophy of the right kidney with a stone in the right lower pole. There is some chronic scarring in the left lower pole probably related to her stone disease and percutaneous nephrostolithotomy. There is no obstruction and the urinary system seen. Review of Systems - Constitutional Reports chronic pain - Cardiovascular Reports chest pain - Gastrointestinal Reports abdominal pain - Genitourinary Genitourinary: Reports flank pain, Reports kidney stones - Musculoskeletal Reports low back pain Past Medical History Past Medical History: GERD/Reflux, Hyperlipidemia, Hypertension Additional Past Medical History / Comment(s): hx urinary retention,right Nephrolithiasis, pt stated rt kidney non functioning", UTI's, patient reports she was once on insulin for diabetes but changed her diet and now does not take anything. occasional vertigo, and R arm fracture with surgery. 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 lithotripsy on left side Past Anesthesia/Blood Transfusion Reactions: No Reported Reaction Additional Past Anesthesia/Blood Transfusion Reaction / Comm: Pt received blood in 1978-no reaction reported. Past Psychological History: No Psychological Hx Reported Smoking Status: Current every day smoker Past Alcohol Use History: None Reported Past Drug Use History: None Reported - Past Family History Father Family Medical History: Cancer, Myocardial Infarction (RI) Additional Family Medical History / Comment(s): Father had lung cancer-went into remission. He of a massive RI in his 60's Mother Family Medical History: Cancer Additional Family Medical History / Comment(s): Mother of lung cancer at age 54 yrs. Medications and Allergies Home Medications Medication Instructions Recorded Confirmed Type Fenofibrate 160 mg PO HS 11/15/15 04/29/18 History Losartan Potassium [Cozaar] 100 mg PO DAILY 11/15/15 04/29/18 History Metoprolol Tartrate [Lopressor] 50 mg PO BID 11/15/15 04/29/18 History amLODIPine [Norvasc] 10 mg PO DAILY 03/08/17 04/29/18 History Aspirin EC [Ecotrin] 325 mg PO QAM 10/04/17 04/29/18 History cloNIDine HCL [Catapres] 0.2 mg PO BID #60 tab 01/25/18 04/29/18 Rx HYDROcodone/APAP 10-325MG [[place] 1 tab PO Q6H PRN #10 tab 02/24/18 04/29/18 Rx 10-325] Prochlorperazine [Compazine] 10 mg PO Q8H PRN 04/28/18 04/29/18 History Allergies Allergy/AdvReac Type Severity Reaction Status Date / Time sulfamethoxazole Allergy Itching Verified 04/29/18 18:23 [From Septra] trimethoprim [From Septra] Allergy Itching Verified 04/29/18 18:23 levofloxacin [From Levaquin] AdvReac Muscle Pain Verified 04/29/18 18:23 Surgical - Exam Vital Signs Temp Pulse Resp BP Pulse Ox 98.0 F 80 18 109/68 98 04/29/18 18:12 04/29/18 18:12 04/29/18 18:12 04/29/18 18:12 04/29/18 18:12 - General well developed, well nourished, moderate distress - ENT no hearing loss - Neck trachea midline - Respiratory normal expansion, normal respiratory effort - Cardiovascular Rhythm: regular - Abdomen Abdomen: soft, non tender - Integumentary no rash, no growths - Musculoskeletal Bilateral [id number] amputations, due to congenital problems. normal posture - Psychiatric oriented to time, oriented to person, oriented to place, speech is normal, memory intact Results - Labs 04/29/18 19:00 04/29/18 19:00 Abnormal Lab Results - Last 24 Hours (Table) 04/29/18 04/29/18 04/29/18 Range/Units 19:00 19:00 19:00 Chloride 108 H (98-107) mmol/L Carbon Dioxide 21 L (22-30) mmol/L BUN 19 H (7-17) mg/dL Lipase 371 H (23-300) U/L Ur Leukocyte Esterase Moderate H (Negative) Urine WBC 10 H (0-5) /hpf Urine Bacteria Moderate H (None) /hpf Urine Mucus Rare H (None) /hpf Microbiology - Last 24 Hours (Table) 04/29/18 19:00 Urine Culture - Preliminary Urine,Voided Diabetes panel 04/29/18 Range/Units 19:00 Sodium 140 (137-145) mmol/L Potassium 4.1 (3.5-5.1) mmol/L Chloride 108 H (98-107) mmol/L Carbon Dioxide 21 L (22-30) mmol/L BUN 19 H (7-17) mg/dL Creatinine 0.62 (0.52-1.04) mg/dL Glucose 91 (74-99) mg/dL Calcium 9.8 (8.4-10.2) mg/dL AST 25 (14-36) U/L ALT 22 (9-52) U/L Alkaline Phosphatase 53 (38-126) U/L Total Protein 7.0 (6.3-8.2) g/dL Albumin 3.9 (3.5-5.0) g/dL Calcium panel 04/29/18 Range/Units 19:00 Calcium 9.8 (8.4-10.2) mg/dL Albumin 3.9 (3.5-5.0) g/dL Pituitary panel 04/29/18 Range/Units 19:00 Sodium 140 (137-145) mmol/L Potassium 4.1 (3.5-5.1) mmol/L Chloride 108 H (98-107) mmol/L Carbon Dioxide 21 L (22-30) mmol/L BUN 19 H (7-17) mg/dL Creatinine 0.62 (0.52-1.04) mg/dL Glucose 91 (74-99) mg/dL Calcium 9.8 (8.4-10.2) mg/dL Adrenal panel 04/29/18 Range/Units 19:00 Sodium 140 (137-145) mmol/L Potassium 4.1 (3.5-5.1) mmol/L Chloride 108 H (98-107) mmol/L Carbon Dioxide 21 L (22-30) mmol/L BUN 19 H (7-17) mg/dL Creatinine 0.62 (0.52-1.04) mg/dL Glucose 91 (74-99) mg/dL Calcium 9.8 (8.4-10.2) mg/dL Total Bilirubin 0.5 (0.2-1.3) mg/dL AST 25 (14-36) U/L ALT 22 (9-52) U/L Alkaline Phosphatase 53 (38-126) U/L Total Protein 7.0 (6.3-8.2) g/dL Albumin 3.9 (3.5-5.0) g/dL - Imaging CT scan - abdomen: report reviewed, image reviewed CT scan - pelvis: report reviewed, image reviewed Assessment and Plan Assessment: Impression: Left-sided flank pain of indeterminate etiology. History of kidney stones. History of atrophy the right kidney with kidney stone. Status post percutaneous nephrostolithotomy left with scarring secondary to that. Recommendations: Do not have an immediate urologic cancer for this patient's pain. She does have some scarring in the left kidney but it should not cause acute pain. His no evidence of ureteral stone or obstruction in the ureter. I do not see any perirenal inflammation. The urine does not look significantly abnormal. At this point in time I do not have an immediate urologic answer for this patient will continue to follow her with you.
--- NOTE | 2018-04-30 19:40 | HP ---
HISTORY AND PHYSICAL DATE OF SERVICE: 04/30/2018 I am covering for Dr. Nguyen. CHIEF COMPLAINT: Abdominal pain. HISTORY OF PRESENT ILLNESS: This 62-year-old woman with a past medical history of multiple medical problems, GERD, hypertension, history of urinary retention, history of section, history of right-sided nonfunctioning kidney, being followed by Dr. Dick Nguyen in the outpatient setting, was complaining of severe left-sided flank pain which was radiating to the front of the abdomen into the groin and perineal area. The patient also has history of nephrolithiasis. The patient reports the pain as 15/10. Patient also had anterior abdominal pain. On admission, the patient was found to have lipase elevated to 371, and the patient also had x-ray KUB which showed nonacute abdomen and stable calcifications. Evaluation by Surgery and Urology are in progress at this time. The patient also has seen urologist in [facility] previously. The patient previously had a percutaneous nephrostolithotomy at [facility]. The patient did have CAT scan of the abdomen 2 days ago, which showed right renal atrophy and nonobstructing calculus, chronic changes in the left lower pole of the left kidney. No renal obstruction. There is no history of fever, rigors. No headache, loss of consciousness, seizures. PAST MEDICAL HISTORY: History of nephrolithiasis and urolithiasis as mentioned earlier. History of hypertension, hyperlipidemia, history of GERD, history of , cholecystectomy. MEDICATIONS: Prior to admission include home medications are: 1. Catapres 0.2 p.o. b.i.d. 2. Norvasc 10 mg daily. 3. Compazine 10 mg q.8h p.r.n. 4. Lopressor 50 mg p.o. b.i.d. 5. Cozaar 100 mg p.o. night. 6. Hydrocodone 10 mg q.6 p.r.n. 7. Fenofibrate 160 mg q.h.s. 8. Ecotrin 325 mg q.a.m. ALLERGIES: SEPTRA and LEVAQUIN. FAMILY HISTORY: History of cancer and myocardial infarction. SOCIAL HISTORY: History of continued ongoing nicotine dependence. No history of alcohol intake. REVIEW OF SYSTEMS: ENT: No diminished hearing or vision. CARDIOVASCULAR: No angina. RESPIRATORY: No cough or hemoptysis. GI: As mentioned earlier. NERVOUS SYSTEM: No numbness or weakness. ALLERGY/IMMUNOLOGY: No asthma or hayfever. MUSCULOSKELETAL: As mentioned earlier. HEMATOLOGY: No history of anemia. ENDOCRINE: No history of diabetes or hypothyroidism. CONSTITUTIONAL: As mentioned earlier. DERMATOLOGY: Negative. RHEUMATOLOGY: Negative. PSYCHIATRY: Negative. PHYSICAL EXAMINATION: Alert and oriented x3. Pulse 91, blood pressure 99/66, respirations 16, temperature 100.4, pulse ox 97% room air. HEENT: Conjunctivae normal. Oral mucosa moist. Neck is no jugular venous distention. No carotid bruit. No lymph node enlargement. CARDIOVASCULAR: S1, S2 muffled. No S3, no S4. RESPIRATORY: Breath sounds diminished in the bases. A few scattered rhonchi. No crackles. ABDOMEN: Soft. Mild diffuse tenderness in the left flank area present. Distended abdomen. No guarding. No rigidity. No mass palpable. LEGS: No edema, no swelling. NERVOUS SYSTEM: Higher functions as mentioned. Moves all 4 limbs. No focal motor deficits. LYMPHATICS: No lymphadenopathy in the neck, axillae, groin. SKIN: No ulcer, rash, bleeding. LABS: CBC within normal. Sodium 140, potassium 4.9, CO2 is 21. BUN is 19, lipase 371. UA noted. ASSESSMENT: 1. Abdominal pain with the left flank pain, rule out urolithiasis. 2. Possible acute mild pancreatitis. 3. Rule out urinary tract infection. 4. History of urolithiasis. 5. Hypertension. 6. Hyperlipidemia. 7. History of gastroesophageal reflux disease. 8. History of cholecystectomy. 9. History of section. 10.Bilateral below-knee amputations. RECOMMENDATIONS AND DISCUSSION: I recommend to continue current management and symptomatic treatment. Otherwise at this time, I would continue the current symptomatic treatment, closely follow with Urology and Surgery. Repeat labs will be arranged. Otherwise, I would also recommend empiric antibiotics pending final cultures also. Prognosis guarded because of multiple complex medical issues. Further recommendations to follow. Copy of dictation forwarded to Dr. Nguyen, who is the primary physician. MMWINSTON / SEAN: [id number] /
[2018-04-30] MEDS: FENOFIBRATE 160 MG TAB PO SCH (20:23)
[2018-04-30] MEDS: HEPARIN SODIUM,PORCINE 5,000 UNIT/ML 1 ML VIAL SQ SCH (20:23)
[2018-05-01] MEDS: SODIUM CHLORIDE 0.9% 1,000 ML IV SCH ×3 (01:54→19:18)
[2018-05-01] MEDS: HYDROmorphone 1 MG/ML 1 ML SYRINGE IVP PRN ×7 (03:00→22:25)
[2018-05-01] MEDS: HYDROcodone/APAP 10-325MG 1 EACH TAB PO PRN ×3 (03:30→17:46)
[2018-05-01 07:21] LABS: Basophils # (A) 0.1 k/uL (0-0.2); Basophils % (A) 1 %; Eosinophils # (A) 0.2 k/uL (0-0.7); Eosinophils % (A) 3 %; HCT 39.1 % (34.0-46.0); HGB 12.3 gm/dL (11.4-16.0); Lymphocytes # (A) 3.5 k/uL (1.0-4.8); Lymphocytes % (A) 51 %; MCH 27.6 pg (25.0-35.0); MCHC 31.4 g/dL (31.0-37.0); MCV 87.9 fL (80.0-100.0); Mean Platelet Volume 7.3; Monocytes # (A) 0.4 k/uL (0-1.0); Monocytes % (A) 6 %; Neutrophils # (A) 2.7 k/uL (1.3-7.7); Neutrophils % (A) 38 %; Platelet Count 337 k/uL (150-450); RBC 4.45 m/uL (3.80-5.40); RDW 14.3 % (11.5-15.5); WBC 6.9 k/uL (3.8-10.6)
[2018-05-01 07:40] LABS: Anion Gap 7 mmol/L; Blood Urea Nitrogen 24 mg/dL (7-17); Calcium 8.7 mg/dL (8.4-10.2); Carbon Dioxide 24 mmol/L (22-30); Chloride 110 mmol/L (98-107); Glucose 107 mg/dL (74-99); Lipase 669 U/L (23-300); Potassium 4.7 mmol/L (3.5-5.1); Sodium 141 mmol/L (137-145)
[2018-05-01] MEDS: cloNIDine HCL 0.2 MG TAB PO SCH ×2 (08:24→20:35)
[2018-05-01] MEDS: amLODIPine 10 MG TAB PO SCH (08:24)
[2018-05-01] MEDS: HEPARIN SODIUM,PORCINE 5,000 UNIT/ML 1 ML VIAL SQ SCH ×2 (08:24→20:36)
[2018-05-01] MEDS: METOPROLOL TARTRATE 50 MG TAB PO SCH ×2 (08:24→20:35)
[2018-05-01] MEDS: LOSARTAN 50 MG TAB PO SCH (08:24)
[2018-05-01] MEDS: PANTOPRAZOLE 40 MG/10 ML VIAL IVP SCH (08:25)
--- NOTE | 2018-05-01 10:43 | P.PN ---
Subjective Progress Note Date: 05/01/18 Principal diagnosis: Left flank pain Patient still complaining of pain in the left flank. She believes her urine is abnormal. She is tolerating diet. She is afebrile. White blood cell count is normal. Lipase is increased slightly more today. Amylase yesterday was normal. She was seen by urology and CAT scan changes are thought to be related to chronic postoperative scarring. No ureteral obstruction seen. Objective - Vital Signs Vital signs: Vital Signs Temp 98.7 F 05/01/18 07:00 Pulse 57 L 05/01/18 07:00 Resp 16 05/01/18 07:00 BP 133/75 05/01/18 07:00 Pulse Ox 96 05/01/18 07:00 Intake & Output 04/30/18 05/01/18 05/01/18 18:59 06:59 18:59 Intake Total 600 225 360 Output Total 450 550 Balance 150 -325 360 Weight 68 kg Intake: Intake, IV Titration 600 225 Amount Sodium Chloride 0.9% 1, 600 225 000 ml @ 75 mls/hr IV . [id number] [facility] Rx#:[id number] Oral 360 Output: Urine 450 300 Uretheral (Richardson) 450 Post Void Residual 250 Other: Voiding Method Bedside Commode Bedside Commode Bedside Commode # Voids 2 3 - Exam Abdomen: Soft, nondistended, mild left flank tenderness, no rebound or guarding - Labs CBC & Chem 7: 05/01/18 06:25 05/01/18 06:25 Labs: Abnormal Lab Results - Last 24 Hours (Table) 05/01/18 Range/Units 06:25 Chloride 110 H (98-107) mmol/L BUN 24 H (7-17) mg/dL Glucose 107 H (74-99) mg/dL Lipase 669 H (23-300) U/L Microbiology - Last 24 Hours (Table) 04/29/18 19:00 Urine Culture - Final Urine,Voided Assessment and Plan (1) Left flank pain Narrative/Plan: Patient left flank pain is persisting. Etiology remains unclear. Possibly on the basis of mild pyelonephritis versus pancreatitis. Pancreatitis on CAT scan appears normal however. Will repeat amylase and lipase tomorrow. Continue diet as tolerated. Will follow. Current Visit: Yes Status: Acute Code(s): R10.9 - UNSPECIFIED ABDOMINAL PAIN SNOMED Code(s): 034202271
[2018-05-01] MEDS: ONDANSETRON 4 MG/2 ML VIAL IVP PRN ×2 (12:11→20:35)
--- NOTE | 2018-05-01 19:35 | PN ---
PROGRESS NOTE DATE OF SERVICE: 05/01/2018 I am covering for Dr. Nguyen. This 62-year-old woman who was admitted with significant abdominal pain with left flank pain is being evaluated by Urology also. The patient also had minimal abdominal pain and mild pancreatitis also suspected. Patient is also on broad-spectrum antibiotics for suspected UTI. The cultures are negative so far. No chest pain. No palpitations. No fever. PHYSICAL EXAM: Alert and oriented x3. Pulse 57, blood pressure 130/74, respiration 16, temperature 98.7, pulse ox 96% on room air. HEENT: Conjunctivae normal. NECK: No jugular venous distention. CARDIOVASCULAR: S1, S2 muffled. RESPIRATORY: Breath sounds diminished in the bases. No rhonchi, no crackles. ABDOMEN: Soft. Mild diffuse tenderness in the left side of the abdomen. NERVOUS SYSTEM: No focal deficits. LABS: WBC 6.8, hemoglobin 12.3, sodium 140, potassium 4.7. Lipase is 669. UA noted. ASSESSMENT: 1. Abdominal pain, left flank pain, rule out urolithiasis. 2. Possible acute mild pancreatitis. 3. Rule out urinary tract infection on broad-spectrum empiric IV antibiotics. 4. History urolithiasis. 5. Hypertension. 6. Hyperlipidemia. 7. History of gastroesophageal reflux disease. 8. History of cholecystectomy. 9. History of section. 10.Bilateral below-knee amputations history. RECOMMENDATIONS AND DISCUSSION: I recommend to continue current management, symptomatic treatment. Otherwise at this time, we will monitor the patient closely. Guarded prognosis because of the multiple complex medical issues. Further recommendations to follow. MMODL / IJN: [id number] /
[2018-05-01] MEDS: FENOFIBRATE 160 MG TAB PO SCH (20:36)
[2018-05-02] MEDS: HYDROmorphone 1 MG/ML 1 ML SYRINGE IVP PRN ×7 (01:34→20:30)
[2018-05-02] MEDS: ONDANSETRON 4 MG/2 ML VIAL IVP PRN ×2 (07:44→16:22)
[2018-05-02 07:47] LABS: Basophils # (A) 0.1 k/uL (0-0.2); Basophils % (A) 1 %; Eosinophils # (A) 0.2 k/uL (0-0.7); Eosinophils % (A) 3 %; Lymphocytes # (A) 3.6 k/uL (1.0-4.8); Lymphocytes % (A) 45 %; MCH 28.9 pg (25.0-35.0); MCHC 33.2 g/dL (31.0-37.0); MCV 87.1 fL (80.0-100.0); Mean Platelet Volume 7.5; Monocytes # (A) 0.4 k/uL (0-1.0); Monocytes % (A) 5 %; Neutrophils # (A) 3.6 k/uL (1.3-7.7); Neutrophils % (A) 45 %; Platelet Count 356 k/uL (150-450); RBC 4.48 m/uL (3.80-5.40); RDW 14.3 % (11.5-15.5)
--- NOTE | 2018-05-02 08:06 | P.PN ---
Subjective Progress Note Date: 05/02/18 Principal diagnosis: The patient is here essentially for flank pain which is recurrent and chronic. Surgery and urology have been consulted. Etiology remains unclear. She's been [facility], pain is unknown as far as origin. She states some diarrhea yesterday. Objective - Vital Signs Vital signs: Vital Signs Temp 98.2 F 05/02/18 01:40 Pulse 61 05/02/18 01:40 Resp 16 05/02/18 01:40 BP 137/66 05/02/18 01:40 Pulse Ox 95 05/02/18 01:40 Intake & Output 05/01/18 05/02/18 05/02/18 18:59 06:59 18:59 Intake Total 360 Balance 360 Weight 68 kg Intake: Oral 360 Other: Voiding Method Bedside Commode Bedside Commode # Voids 4 1 # Bowel Movements 1 - Constitutional General appearance: Present: obese - Neck Neck: Absent: lymphadenopathy - Respiratory Respiratory: bilateral: CTA - Cardiovascular Rhythm: regular Heart sounds: normal: S1, S2 - Gastrointestinal General gastrointestinal: Present: soft. Absent: splenomegaly, tenderness - Psychiatric Psychiatric: Present: A&O x's 3. Absent: appropriate affect - Labs CBC & Chem 7: 05/02/18 07:21 05/01/18 06:25 Labs: Microbiology - Last 24 Hours (Table) 04/30/18 13:28 Blood Culture - Preliminary Blood No Growth after 24 hours 04/29/18 19:00 Urine Culture - Final Urine,Voided Assessment and Plan (1) Left flank pain Current Visit: Yes Status: Acute Code(s): R10.9 - UNSPECIFIED ABDOMINAL PAIN SNOMED Code(s): 654729451 (2) Abdominal pain Current Visit: No Status: Acute Code(s): R10.9 - UNSPECIFIED ABDOMINAL PAIN SNOMED Code(s): 20859985 (3) Diarrhea Current Visit: No Status: Acute Code(s): R19.7 - DIARRHEA, UNSPECIFIED SNOMED Code(s): 57898965 (4) Intractable abdominal pain Current Visit: No Status: Acute Code(s): R10.9 - UNSPECIFIED ABDOMINAL PAIN SNOMED Code(s): 60442968 (5) Renal calculus Current Visit: No Status: Acute Priority: High Code(s): N20.0 - CALCULUS OF KIDNEY SNOMED Code(s): 37093240 Plan: Unfortunately, I suspect we will need to increase her narcotic medication to keep her comfortable. Multiple hospitalizations and ER visits over the last year. Multiple CT scans not showing significant new problem. Prognosis is guarded. Anticipate discharge in next 24-48 hours. See orders otherwise.
[2018-05-02 08:10] LABS: Amylase 65 U/L (30-110); Anion Gap 6 mmol/L; Blood Urea Nitrogen 25 mg/dL (7-17); Carbon Dioxide 24 mmol/L (22-30); Chloride 111 mmol/L (98-107); Glucose 82 mg/dL (74-99); Lipase 545 U/L (23-300); Potassium 4.9 mmol/L (3.5-5.1); Sodium 141 mmol/L (137-145)
--- NOTE | 2018-05-02 08:50 | XR ---
EXAM TYPE: LUMBAR SPINE X RAY SERIES COMPARISON: NONE HISTORY: Pain TECHNIQUE: 3 views are submitted. FINDINGS: Alignment is anatomic. The pedicles are intact. The transverse processes are intact. There is no s pondylolisthesis. Hypertrophic change of the spine noted. Degenerative disc disease L4-5 and L5-S1. E xam limited by technique. Soft tissue calcification overlying the right iliac bone. Suspect facet art hropathy at L5-S1. IMPRESSION: 1. Limited exam suggestive of degenerative disc disease and facet arthropathy..
--- NOTE | 2018-05-02 08:53 | XR ---
EXAMINATION TYPE: XR thoracic spine 2V DATE OF EXAM: 05/02/2018 COMPARISON: NONE HISTORY: Back pain Alignment is anatomic. There is no compression deformities. Postsurgical change overlying the cervic al spine. There is a scoliotic curvature of the vertebral column with multilevel degenerative disc di sease and hypertrophic changes. IMPRESSION: 1. Multilevel degenerative disc disease with scoliotic curvature.
[2018-05-02] MEDS: cloNIDine HCL 0.2 MG TAB PO SCH ×2 (09:03→20:34)
[2018-05-02] MEDS: PANTOPRAZOLE 40 MG TABLET PO SCH (09:04)
[2018-05-02] MEDS: METOPROLOL TARTRATE 50 MG TAB PO SCH ×2 (09:04→20:35)
[2018-05-02] MEDS: LOSARTAN 50 MG TAB PO SCH (09:04)
[2018-05-02] MEDS: HEPARIN SODIUM,PORCINE 5,000 UNIT/ML 1 ML VIAL SQ SCH ×2 (09:04→20:34)
[2018-05-02] MEDS: amLODIPine 10 MG TAB PO SCH (09:17)
[2018-05-02] MEDS: HYDROcodone/APAP 10-325MG 1 EACH TAB PO PRN ×3 (09:17→22:14)
--- NOTE | 2018-05-02 18:36 | P.PN ---
Subjective Progress Note Date: 05/02/18 HPI: The patient is a 62-year-old female with long-standing history of flank pain including intermittent pancreatitis. She has been previously followed by GI. I have been asked to see the patient for the first time regarding elevated liver enzymes. ABDOMEN: Soft, nontender, nondistended. No epigastric pain. GENERAL: Well developed and in no acute distress. Pleasant. HEENT: No sclera icterus. Extraocular movements grossly intact. Moist buccal mucosa. Head is atraumatic, normocephalic. Hears conversational speech. No nasal drainage. NECK: Supple without lymphadenopathy. No JV distention. CHEST: Non-labored respirations and equal bilateral excursions. CARDIOVASCULAR: Regular rate and rhythm. Palpable 2+ radial pulses. MUSCULOSKELETAL: No clubbing, cyanosis or edema. Mild tenderness along the left lower back, paraspinal muscles NEUROLOGIC: No focal or lateralizing signs. Cranial nerves II-12 grossly intact PSYCH: Appropriate affect. Alert and oriented to person, place and time. SKIN: Good skin turgor. Well perfused. STUDIES: CT of the abdomen and pelvis personally reviewed by me demonstrating no inflammatory changes of the pancreas. No bowel obstruction. No free air. ASSESSMENT: 1. Chronic left lower back pain. 2. Elevated lipase. PLAN: 1. Patient had a previous cholecystectomy and elevated lipase does not fit clinical picture for pancreatitis. 2. Patient complains only of left lower back pain versus flank pain. No abdominal pain noted. 3. No acute surgical intervention needed. 4. As her pain is chronic in nature for several months, may benefit from tertiary care evaluation. 5. We'll follow as needed. Objective - Vital Signs Vital signs: Vital Signs Temp 98.3 F 05/02/18 14:10 Pulse 52 L 05/02/18 14:10 Resp 15 05/02/18 14:10 BP 141/58 05/02/18 14:10 Pulse Ox 95 05/02/18 14:10 Intake & Output 05/01/18 05/02/18 05/02/18 18:59 06:59 18:59 Intake Total 360 Balance 360 Weight 68 kg Intake: Oral 360 Other: Voiding Method Bedside Commode Bedside Commode # Voids 4 1 # Bowel Movements 1 - Labs CBC & Chem 7: 05/02/18 07:21 05/02/18 07:21 Labs: Abnormal Lab Results - Last 24 Hours (Table) 05/02/18 Range/Units 07:21 Chloride 111 H (98-107) mmol/L BUN 25 H (7-17) mg/dL Lipase 545 H (23-300) U/L Microbiology - Last 24 Hours (Table) 04/30/18 13:28 Blood Culture - Preliminary Blood No Growth after 48 hours
[2018-05-02] MEDS: FENOFIBRATE 160 MG TAB PO SCH (20:35)
[2018-05-02] MEDS: SODIUM CHLORIDE 0.9% 1,000 ML IV SCH ×2 (20:36→20:45)
[2018-05-03] MEDS: HYDROmorphone 1 MG/ML 1 ML SYRINGE IVP PRN ×6 (03:38→21:04)
[2018-05-03] MEDS: ONDANSETRON 4 MG/2 ML VIAL IVP PRN ×3 (03:43→21:13)
[2018-05-03] MEDS: SODIUM CHLORIDE 0.9% 1,000 ML IV SCH ×2 (05:36→21:10)
[2018-05-03 07:39] LABS: Basophils # (A) 0.1 k/uL (0-0.2); Basophils % (A) 1 %; Eosinophils # (A) 0.3 k/uL (0-0.7); Eosinophils % (A) 4 %; HCT 39.3 % (34.0-46.0); HGB 12.6 gm/dL (11.4-16.0); Lymphocytes # (A) 3.8 k/uL (1.0-4.8); Lymphocytes % (A) 51 %; MCH 28.3 pg (25.0-35.0); MCHC 32.2 g/dL (31.0-37.0); MCV 88.1 fL (80.0-100.0); Monocytes # (A) 0.4 k/uL (0-1.0); Monocytes % (A) 5 %; Neutrophils # (A) 2.8 k/uL (1.3-7.7); Neutrophils % (A) 37 %; Platelet Count 355 k/uL (150-450); RBC 4.46 m/uL (3.80-5.40); RDW 14.2 % (11.5-15.5); WBC 7.4 k/uL (3.8-10.6)
[2018-05-03] MEDS: PANTOPRAZOLE 40 MG TABLET PO SCH (07:45)
[2018-05-03 07:52] LABS: Anion Gap 7 mmol/L; Blood Urea Nitrogen 25 mg/dL (7-17); Calcium 9.3 mg/dL (8.4-10.2); Carbon Dioxide 22 mmol/L (22-30); Chloride 110 mmol/L (98-107); Glucose 84 mg/dL (74-99); Lipase 515 U/L (23-300); Potassium 4.9 mmol/L (3.5-5.1); Sodium 139 mmol/L (137-145)
[2018-05-03] MEDS: METOPROLOL TARTRATE 50 MG TAB PO SCH ×2 (09:03→21:04)
[2018-05-03] MEDS: cloNIDine HCL 0.2 MG TAB PO SCH ×2 (09:03→20:58)
[2018-05-03] MEDS: LOSARTAN 50 MG TAB PO SCH (09:03)
[2018-05-03] MEDS: amLODIPine 10 MG TAB PO SCH (09:03)
[2018-05-03] MEDS: HEPARIN SODIUM,PORCINE 5,000 UNIT/ML 1 ML VIAL SQ SCH ×2 (09:03→21:04)
[2018-05-03] MEDS: HYDROcodone/APAP 10-325MG 1 EACH TAB PO PRN ×2 (11:20→18:00)
--- NOTE | 2018-05-03 13:33 | P.PN ---
Subjective Principal diagnosis: This is a continue progress on a 62-year-old white female essentially admitted for flank pain. The patient is unable to find appropriate etiology of her pain. Multiple consultants including at [facility] have not found an acceptable to the patient. She states some mild urinary incontinence tHowever no hematuria is noted. No significant nausea or vomiting. She would like her diet advanced to regular diet. Objective - Vital Signs Vital signs: Vital Signs Temp 98.0 F 05/03/18 07:30 Pulse 52 L 05/03/18 07:30 Resp 16 05/03/18 07:30 BP 127/66 05/03/18 07:30 Pulse Ox 97 05/03/18 07:30 Intake & Output 05/02/18 05/03/18 05/03/18 18:59 06:59 18:59 Intake Total 1050 780 118 Balance 1050 780 118 Intake: Intake, IV Titration 650 600 Amount Sodium Chloride 0.9% 1, 600 000 ml @ 75 mls/hr IV . [id number] [facility] Rx#:[id number] cefTRIAXone 1,000 mg In 50 600 Sodium Chloride 0.9% 50 ml @ 100 mls/hr IVPB Q24HR [facility] Rx#:[id number] Oral 400 180 118 Other: Voiding Method Bedside Commode Bedpan # Voids 2 # Bowel Movements 1 1 - Constitutional General appearance: Present: obese - EENT Eyes: Absent: abnormal pupil - Respiratory Respiratory: bilateral: CTA, diminished - Cardiovascular Rhythm: irregularly irregular Abnormal Heart Sounds: Present: S3 Gallop - Gastrointestinal General gastrointestinal: Present: soft - Labs CBC & Chem 7: 05/03/18 06:35 05/03/18 06:35 Labs: Abnormal Lab Results - Last 24 Hours (Table) 05/03/18 Range/Units 06:35 Chloride 110 H (98-107) mmol/L BUN 25 H (7-17) mg/dL Lipase 515 H (23-300) U/L Microbiology - Last 24 Hours (Table) 04/30/18 13:28 Blood Culture - Preliminary Blood No Growth after 48 hours Assessment and Plan (1) Left flank pain Current Visit: Yes Status: Acute Code(s): R10.9 - UNSPECIFIED ABDOMINAL PAIN SNOMED Code(s): 631520787 (2) Abdominal pain Current Visit: No Status: Acute Code(s): R10.9 - UNSPECIFIED ABDOMINAL PAIN SNOMED Code(s): 85482026 (3) Diarrhea Current Visit: No Status: Acute Code(s): R19.7 - DIARRHEA, UNSPECIFIED SNOMED Code(s): 62055127 (4) Intractable abdominal pain Current Visit: No Status: Acute Code(s): R10.9 - UNSPECIFIED ABDOMINAL PAIN SNOMED Code(s): 58246622 (5) Renal calculus Current Visit: No Status: Acute Priority: High Code(s): N20.0 - CALCULUS OF KIDNEY SNOMED Code(s): 37022539 Plan: continue current regimen of pain control. History of nephrolithiasis. Chronic flank pain. Chronic abdominal pain. Opiate dependence. Dysuria. Check urinalysis to make sure that she's not having recurrent urinary tract infection. Anticipate discharge in a.m. Time with Patient: Greater than 30
[2018-05-03] MEDS ORDERED: HYDROmorphone 0.5 MG/0.5 ML SYRINGE IM PRN (13:34)
[2018-05-03] MEDS ORDERED: HYDROmorphone 1 MG/ML 1 ML SYRINGE IM PRN (16:42)
[2018-05-03] MEDS: FENOFIBRATE 160 MG TAB PO SCH (21:04)
[2018-05-04] MEDS: HYDROcodone/APAP 10-325MG 1 EACH TAB PO PRN ×5 (01:15→23:28)
[2018-05-04] MEDS: ALPRAZolam 0.25 MG TAB PO PRN ×2 (01:19→16:21)
[2018-05-04] MEDS: HYDROmorphone 1 MG/ML 1 ML SYRINGE IVP PRN ×4 (02:26→20:00)
[2018-05-04] MEDS: SODIUM CHLORIDE 0.9% 1,000 ML IV SCH ×2 (07:53→20:01)
[2018-05-04] MEDS: HEPARIN SODIUM,PORCINE 5,000 UNIT/ML 1 ML VIAL SQ SCH ×2 (07:59→20:00)
[2018-05-04] MEDS: PANTOPRAZOLE 40 MG TABLET PO SCH (08:00)
[2018-05-04] MEDS: amLODIPine 10 MG TAB PO SCH (08:00)
[2018-05-04] MEDS: cloNIDine HCL 0.2 MG TAB PO SCH ×2 (08:00→20:01)
[2018-05-04] MEDS: METOPROLOL TARTRATE 50 MG TAB PO SCH ×2 (08:00→20:01)
[2018-05-04] MEDS: LOSARTAN 50 MG TAB PO SCH (08:00)
[2018-05-04] MEDS: ONDANSETRON 4 MG/2 ML VIAL IVP PRN (08:35)
[2018-05-04 08:43] LABS: Basophils # (A) 0.1 k/uL (0-0.2); Basophils % (A) 1 %; Eosinophils # (A) 0.4 k/uL (0-0.7); Eosinophils % (A) 4 %; HCT 42.7 % (34.0-46.0); HGB 13.9 gm/dL (11.4-16.0); Lymphocytes # (A) 3.5 k/uL (1.0-4.8); Lymphocytes % (A) 39 %; MCH 28.4 pg (25.0-35.0); MCHC 32.6 g/dL (31.0-37.0); MCV 87.2 fL (80.0-100.0); Monocytes # (A) 0.3 k/uL (0-1.0); Monocytes % (A) 4 %; Neutrophils # (A) 4.5 k/uL (1.3-7.7); Neutrophils % (A) 51 %; Platelet Count 368 k/uL (150-450); RBC 4.89 m/uL (3.80-5.40); RDW 14.3 % (11.5-15.5); WBC 8.9 k/uL (3.8-10.6)
[2018-05-04 09:10] LABS: ALT 26 U/L (9-52); AST 21 U/L (14-36); Albumin 3.5 g/dL (3.5-5.0); Alkaline Phosphatase 44 U/L (38-126); Anion Gap 8 mmol/L; Blood Urea Nitrogen 25 mg/dL (7-17); Calcium 9.5 mg/dL (8.4-10.2); Carbon Dioxide 24 mmol/L (22-30); Chloride 110 mmol/L (98-107); Glucose 127 mg/dL (74-99); Lipase 468 U/L (23-300); Potassium 4.1 mmol/L (3.5-5.1); Sodium 142 mmol/L (137-145); Total Bilirubin 0.3 mg/dL (0.2-1.3); Total Protein 6.4 g/dL (6.3-8.2)
--- NOTE | 2018-05-04 13:51 | P.PN ---
Subjective Patient is here essentially for left flank and abdominal pain. She states some urinary incontinence. However, multiple consultants to notified of any significant issue related to her pain. Questionable etiology. She seems to be tolerating diet. Objective - Vital Signs Vital signs: Vital Signs Temp 98.3 F 05/04/18 07:30 Pulse 63 05/04/18 07:30 Resp 18 05/04/18 07:30 BP 165/82 05/04/18 07:30 Pulse Ox 98 05/04/18 07:30 Intake & Output 05/03/18 05/04/18 05/04/18 18:59 06:59 18:59 Intake Total 793 615 Balance 793 615 Intake: Intake, IV Titration 575 75 Amount Sodium Chloride 0.9% 1, 525 75 000 ml @ 75 mls/hr IV . [id number] REGINA Rx#:[id number] cefTRIAXone 1,000 mg In 50 Sodium Chloride 0.9% 50 ml @ 100 mls/hr IVPB Q24HR REGINA Rx#:[id number] Oral 218 540 Other: Voiding Method Bedside Commode Bedside Commode Bedpan Bedpan # Voids 2 1 # Bowel Movements 1 1 - Constitutional General appearance: Present: obese - EENT Eyes: Absent: abnormal pupil - Neck Neck: Absent: lymphadenopathy - Respiratory Respiratory: bilateral: CTA - Cardiovascular Rhythm: regular Heart sounds: normal: S1, S2 Abnormal Heart Sounds: Absent: S3 Gallop - Gastrointestinal General gastrointestinal: Present: soft. Absent: tenderness - Psychiatric Psychiatric: Present: A&O x's 3 - Labs CBC & Chem 7: 05/04/18 08:20 05/04/18 08:20 Labs: Abnormal Lab Results - Last 24 Hours (Table) 05/04/18 Range/Units 08:20 Chloride 110 H (98-107) mmol/L BUN 25 H (7-17) mg/dL Glucose 127 H (74-99) mg/dL Lipase 468 H (23-300) U/L Microbiology - Last 24 Hours (Table) 04/30/18 13:28 Blood Culture - Preliminary Blood No Growth after 72 hours Assessment and Plan (1) Left flank pain Current Visit: Yes Status: Acute Code(s): R10.9 - UNSPECIFIED ABDOMINAL PAIN SNOMED Code(s): 908787202 (2) Abdominal pain Current Visit: No Status: Acute Code(s): R10.9 - UNSPECIFIED ABDOMINAL PAIN SNOMED Code(s): 18004092 (3) Diarrhea Current Visit: No Status: Acute Code(s): R19.7 - DIARRHEA, UNSPECIFIED SNOMED Code(s): 83621834 (4) Intractable abdominal pain Current Visit: No Status: Acute Code(s): R10.9 - UNSPECIFIED ABDOMINAL PAIN SNOMED Code(s): 93798887 (5) Renal calculus Current Visit: No Status: Acute Priority: High Code(s): N20.0 - CALCULUS OF KIDNEY SNOMED Code(s): 63026037 Plan: We'll going continue current regimen of pain control. I had a long discussion with the patient as far as her overall prognosis. I will refer her to tertiary care center if she is not improved. She has also present with [facility] for nephrolithiasis, but that they do not think that this is an issue as far as her flank pain. Check urinalysis today. Continue current regimen of treatment and wean off Dilaudid. See orders otherwise. Time with Patient: Less than 30
[2018-05-04 17:06] LABS: Appearance,Urine Clear (Clear); Bilirubin,Urine Negative (Negative); Blood,Urine Negative (Negative); Color,Urine Light Yellow; Glucose,Urine (UA) Negative (Negative); Ketones,Urine Negative (Negative); Leukocyte Esterase,Urine Negative (Negative); Nitrite,Urine Negative (Negative); PH, Urine 6.5 (5.0-8.0); Protein,Urine Negative (Negative); Urobilinogen,Urine <2.0 mg/dL (<2.0)
[2018-05-04] MEDS: FENOFIBRATE 160 MG TAB PO SCH (20:01)
[2018-05-05] MEDS: HYDROmorphone 1 MG/ML 1 ML SYRINGE IVP PRN ×2 (00:27→04:44)
[2018-05-05] MEDS: ONDANSETRON 4 MG/2 ML VIAL IVP PRN (04:44)
[2018-05-05] MEDS: HYDROcodone/APAP 10-325MG 1 EACH TAB PO PRN (06:23)
[2018-05-05 07:33] LABS: Basophils # (A) 0.1 k/uL (0-0.2); Basophils % (A) 1 %; Eosinophils # (A) 0.3 k/uL (0-0.7); Eosinophils % (A) 3 %; HCT 42.7 % (34.0-46.0); HGB 13.2 gm/dL (11.4-16.0); Lymphocytes # (A) 4.4 k/uL (1.0-4.8); Lymphocytes % (A) 50 %; MCHC 30.9 g/dL (31.0-37.0); MCV 90.7 fL (80.0-100.0); Monocytes # (A) 0.4 k/uL (0-1.0); Monocytes % (A) 4 %; Neutrophils # (A) 3.5 k/uL (1.3-7.7); Neutrophils % (A) 40 %; Platelet Count 353 k/uL (150-450); RBC 4.71 m/uL (3.80-5.40); RDW 14.4 % (11.5-15.5); WBC 8.8 k/uL (3.8-10.6)
[2018-05-05 09:43] LABS: Anion Gap 8 mmol/L; Blood Urea Nitrogen 25 mg/dL (7-17); Calcium 9.2 mg/dL (8.4-10.2); Carbon Dioxide 25 mmol/L (22-30); Chloride 110 mmol/L (98-107); Glucose 111 mg/dL (74-99); Lipase 312 U/L (23-300); Potassium 4.6 mmol/L (3.5-5.1); Sodium 143 mmol/L (137-145)
[2018-05-05] MEDS: amLODIPine 10 MG TAB PO SCH (10:04)
[2018-05-05] MEDS: cloNIDine HCL 0.2 MG TAB PO SCH (10:04)
[2018-05-05] MEDS: HEPARIN SODIUM,PORCINE 5,000 UNIT/ML 1 ML VIAL SQ SCH (10:04)
[2018-05-05] MEDS: METOPROLOL TARTRATE 50 MG TAB PO SCH (10:04)
[2018-05-05] MEDS: PANTOPRAZOLE 40 MG TABLET PO SCH (10:04)
[2018-05-05] MEDS: LOSARTAN 50 MG TAB PO SCH (10:04)
[2018-05-05] MEDS: SODIUM CHLORIDE 0.9% 1,000 ML IV SCH (12:21)
[2018-05-05 12:24] VITALS: BP 185/91; PULSE 70; RESP 16; TEMP 98
== END 2018-05-05 11:42 | disposition home or self-care (01) ==
LOC: EC 18:08 → 3SUR 20:53
PROVIDERS: ADMIT Family Medicine; ATTEND Family Medicine
DX: R10.9 Unspecified abdominal pain (principal); K21.9 Gastro-esophageal reflux disease without esophagitis; R33.9 Retention of urine, unspecified; R11.2 Nausea with vomiting, unspecified; I10 Essential (primary) hypertension; E78.5 Hyperlipidemia, unspecified; R74.8 Abnormal levels of other serum enzymes; N26.1 Atrophy of kidney (terminal); G89.29 Other chronic pain; M54.5 Low back pain; R19.7 Diarrhea, unspecified; N20.0 Calculus of kidney; R32 Unspecified urinary incontinence; Z98.1 Arthrodesis status; F17.200 Nicotine dependence, unspecified, uncomplicated; Z87.440 Personal history of urinary (tract) infections; Z87.442 Personal history of urinary calculi; Z89.512 Acquired absence of left leg below knee; Z89.511 Acquired absence of right leg below knee; Z88.2 Allergy status to sulfonamides; Z90.49 Acquired absence of other specified parts of digestive tract; Z79.82 Long term (current) use of aspirin; Z79.899 Other long term (current) drug therapy; Z88.1 Allergy status to other antibiotic agents; Z82.49 Family history of ischemic heart disease and other diseases of the circulatory system; Z80.1 Family history of malignant neoplasm of trachea, bronchus and lung; E66.9 Obesity, unspecified; Z68.23 Body mass index [BMI] 23.0-23.9, adult
CPT/HCPCS: 96365 ×2; 96375 ×4; 96376 ×9; 99285; 96361 ×2; 96372 ×6; 36415; 80053 ×2; 80048 ×4; 82150 ×3; 83690 ×6; 85025 ×6; 81003; 81001; 87040; 87086; 72070; 72100; 74018; G0378 ×7; S0183; J1644 ×6; J2405 ×7; J0696 ×6; J1170 ×7; C9113 ×2

== ENCOUNTER 2018-06-21 22:48 | Inpatient (IN) | payer OTHER ==
[2018-06-21 23:27] LABS: Basophils % (A) 0 %; Eosinophils # (A) 0.3 k/uL (0-0.7); Eosinophils % (A) 1 %; Lymphocytes # (A) 2.9 k/uL (1.0-4.8); Lymphocytes % (A) 15 %; MCHC 33.4 g/dL (31.0-37.0); MCV 86.8 fL (80.0-100.0); Mean Platelet Volume 7.7; Monocytes # (A) 0.8 k/uL (0-1.0); Monocytes % (A) 4 %; Neutrophils # (A) 15.1 k/uL (1.3-7.7); Neutrophils % (A) 78 %; Platelet Count 483 k/uL (150-450); RBC 4.84 m/uL (3.80-5.40); WBC 19.3 k/uL (3.8-10.6)
[2018-06-21 23:35] LABS: ALT 24 U/L (9-52); AST 16 U/L (14-36); Albumin 3.6 g/dL (3.5-5.0); Alkaline Phosphatase 48 U/L (38-126); Anion Gap 10 mmol/L; Blood Urea Nitrogen 14 mg/dL (7-17); Calcium 9.5 mg/dL (8.4-10.2); Carbon Dioxide 22 mmol/L (22-30); Chloride 106 mmol/L (98-107); Glucose 147 mg/dL (74-99); Lipase 116 U/L (23-300); Magnesium 1.4 mg/dL (1.6-2.3); Potassium 3.9 mmol/L (3.5-5.1); Sodium 138 mmol/L (137-145); Total Bilirubin 0.5 mg/dL (0.2-1.3); Total Protein 6.6 g/dL (6.3-8.2)
[2018-06-21 23:39] LABS: D-Dimer 0.52 mg/L FEU (<0.60); INR 1.1 (<1.2); Partial Thromboplastin Time 26.7 sec (22.0-30.0); Prothrombin Time 10.5 sec (9.0-12.0)
--- NOTE | 2018-06-21 23:41 | ED ---
Chest Pain HPI - General Chief Complaint: Chest Pain Stated Complaint: CHEST PAIN Time Seen by Provider: 06/21/18 22:55 Source: patient, RN notes reviewed, old records reviewed Mode of arrival: EMS Limitations: no limitations - History of Present Illness Initial Comments: This is a 63-year-old female the ER for evaluation. Patient has mild cardiac risk factor disease. Patient coming in for pain control, chest pain. Patient has history of abdominal pain chest painstates this pain is different than prior. Presents with nausea and some shortness of breath. No modifying factors for pain currently MD Complaint: chest pain -: days(s) (1) Onset: during rest Pain Location: left chest, epigastric Pain Radiation: back, jaw/teeth Severity: severe Severity scale (1-10): 10 Quality: tightness, sharp Consistency: constant Improves With: nothing Worsens With: nothing Anginal Symptoms: nausea Other Symptoms: cough Treatments Prior to Arrival: none - Related Data Home Medications Medication Instructions Recorded Confirmed Fenofibrate 160 mg PO HS 11/15/15 06/21/18 Losartan Potassium [Cozaar] 100 mg PO DAILY 11/15/15 06/21/18 Metoprolol Tartrate [Lopressor] 50 mg PO BID 11/15/15 06/21/18 amLODIPine [Norvasc] 10 mg PO DAILY 03/08/17 06/21/18 Aspirin EC [Ecotrin] 325 mg PO QAM 10/04/17 06/21/18 Prochlorperazine [Compazine] 10 mg PO TID PRN 04/28/18 06/21/18 ALPRAZolam [Xanax] 0.5 mg PO HS PRN 06/21/18 06/21/18 Amoxic-Pot Clav 875-125Mg 1 tab PO Q12HR 06/21/18 06/21/18 [Augmentin 875-125] Atorvastatin Calcium [Lipitor] 20 mg PO HS 06/21/18 06/21/18 Morphine Sulfate ER [Ms Contin] 30 mg PO Q12HR 06/21/18 06/21/18 Sennosides-Docusate Sodium 1 tab PO BID 06/21/18 06/21/18 [Senokot-S] cloNIDine HCL [Catapres] 0.1 mg PO BID 06/21/18 06/21/18 Previous Rx's Medication Instructions Recorded HYDROcodone/APAP 10-325MG [[place] 1 tab PO Q6H PRN #120 tab 05/05/18 10-325] Allergies Allergy/AdvReac Type Severity Reaction Status Date / Time sulfamethoxazole Allergy Itching Verified 06/21/18 23:35 [From Septra] trimethoprim [From Septra] Allergy Itching Verified 06/21/18 23:35 levofloxacin [From Levaquin] AdvReac Muscle Pain Verified 06/21/18 23:35 Review of Systems ROS Statement: Those systems with pertinent positive or pertinent negative responses have been documented in the HPI. ROS Other: All systems not noted in ROS Statement are negative. EKG Findings - EKG Comments: EKG Findings:: EKG shows undetermined rhythm rate of 98, QRS 70, QTc 464 Past Medical History Past Medical History: GERD/Reflux, Hyperlipidemia, Hypertension Additional Past Medical History / Comment(s): hx urinary retention,right Nephrolithiasis, pt stated rt kidney non functioning", UTI's, patient reports she was once on insulin for diabetes but changed her diet and now does not take anything. occasional vertigo, and R arm fracture with surgery. 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 lithotripsy on left side Past Anesthesia/Blood Transfusion Reactions: No Reported Reaction Additional Past Anesthesia/Blood Transfusion Reaction / Comment(s): Pt received blood in 1978-no reaction reported. Past Psychological History: No Psychological Hx Reported Smoking Status: Former smoker Past Alcohol Use History: None Reported Past Drug Use History: None Reported - Past Family History Father Family Medical History: Cancer, Myocardial Infarction ([place]) Additional Family Medical History / Comment(s): Father had lung cancer-went into remission. He of a massive [place] in his 60's Mother Family Medical History: Cancer Additional Family Medical History / Comment(s): Mother of lung cancer at age 54 yrs. General Exam Limitations: no limitations General appearance: alert, in no apparent distress, anxious Head exam: Present: atraumatic, normocephalic, normal inspection Eye exam: Present: normal appearance, PERRL, EOMI. Absent: scleral icterus, conjunctival injection, periorbital swelling ENT exam: Present: normal exam, mucous membranes moist Neck exam: Present: normal inspection. Absent: tenderness, meningismus, lymphadenopathy Respiratory exam: Present: normal lung sounds bilaterally. Absent: respiratory distress, wheezes, rales, rhonchi, stridor Cardiovascular Exam: Present: regular rate, normal rhythm, normal heart sounds. Absent: systolic murmur, diastolic murmur, rubs, gallop, clicks GI/Abdominal exam: Present: soft, normal bowel sounds. Absent: distended, tenderness, guarding, rebound, rigid Extremities exam: Present: normal inspection, full ROM, normal capillary refill. Absent: tenderness, pedal edema, joint swelling, calf tenderness Back exam: Present: normal inspection Neurological exam: Present: alert, oriented X3, CN II-XII intact Psychiatric exam: Present: normal affect, normal mood Skin exam: Present: warm, dry, intact, normal color. Absent: rash Course Vital Signs 06/21/18 06/21/18 06/21/18 22:52 22:53 23:00 Temperature 98.3 F Pulse Rate 80 Respiratory 18 Rate Blood Pressure 147/86 147/86 O2 Sat by Pulse 95 95 96 Oximetry 06/21/18 06/21/18 06/22/18 23:10 23:20 00:01 Temperature Pulse Rate 83 90 71 Respiratory 20 20 16 Rate Blood Pressure 147/86 124/77 124/77 O2 Sat by Pulse 96 95 96 Oximetry 06/22/18 06/22/18 06/22/18 01:00 01:30 01:50 Temperature Pulse Rate 73 68 69 Respiratory 26 H 23 25 H Rate Blood Pressure 129/80 115/61 116/67 O2 Sat by Pulse 95 95 96 Oximetry 06/22/18 06/22/18 06/22/18 02:10 02:30 02:50 Temperature Pulse Rate 77 74 73 Respiratory 29 H 29 H 27 H Rate Blood Pressure 126/73 133/75 126/77 O2 Sat by Pulse 96 95 95 Oximetry 11/21/18 11/21/18 11/21/18 03:00 03:10 05:32 Temperature 100.7 F H Pulse Rate 76 76 78 Respiratory 13 26 H 23 Rate Blood Pressure 126/77 118/67 107/63 O2 Sat by Pulse 96 95 95 Oximetry 06/22/18 06/22/18 06/22/18 08:00 10:00 12:00 Temperature Pulse Rate 77 Respiratory 29 H Rate Blood Pressure 114/55 101/50 134/67 O2 Sat by Pulse 96 90 L Oximetry 06/22/18 13:00 Temperature Pulse Rate 73 Respiratory 16 Rate Blood Pressure 121/61 O2 Sat by Pulse 94 L Oximetry - Reevaluation(s) Reevaluation #1: 06/21/18 23:44 Medical record and prior hospitalizations are reviewed Reevaluation #2: 06/22/18 00:34 Patient with persistent chest pain, states she has never had chest pain or pain like this before Reevaluation #3: Studies CTA chest negative for acute disease Chest Pain MDM - MDM 63 female the ER with chest pain, patient states she's not had prior chest pain quite like this before. Patient be admitted for cardiac observation Critical Care Time Critical Care Time: Yes Total Critical Care Time: 31 Disposition Clinical Impression: Chest pain Disposition: ADMITTED IP TO THIS HOSP Condition: Undetermined
[2018-06-21] MEDS ORDERED: MORPHINE SULFATE 4 MG/ML SYRINGE IVP STA (23:43)
[2018-06-21] MEDS ORDERED: HEPARIN SODIUM,PORCINE 5,000 UNIT/ML 1 ML VIAL IV PRN (23:45)
[2018-06-21] MEDS ORDERED: HEPARIN SODIUM,PORCINE 5,000 UNIT/ML 1 ML VIAL IV ONE (23:45)
[2018-06-21] MEDS ORDERED: ASPIRIN 81 MG PO STA (23:45)
[2018-06-21 23:49] LABS: Creatine Kinase 43 U/L (30-135)
[2018-06-22 00:01] LABS: Creatine Kinase MB 0.2 ng/mL (0.0-2.4); Troponin I <0.012 ng/mL (0.000-0.034)
--- NOTE | 2018-06-22 00:24 | XR ---
EXAMINATION TYPE: XR chest 2V DATE OF EXAM: 06/21/2018 COMPARISON: 04/21/1718 HISTORY: Chest pain TECHNIQUE: Frontal and lateral views of the chest are obtained. FINDINGS: Heart is enlarged. There is some blunting of the costophrenic angles. There is no gross he art failure. There is mild pulmonary congestion. IMPRESSION: Cardiomegaly and mild pulmonary congestion but no overt heart failure. Small pleural eff usions. No significant change.
[2018-06-22] MEDS ORDERED: ONDANSETRON 4 MG/2 ML VIAL IVP STA (00:32)
[2018-06-22] MEDS: HEPARIN SOD,PORK IN 0.45% NACL 25,000 UNIT in 0.45% NACL 1 500ML.BAG IV SCH (00:56)
--- NOTE | 2018-06-22 01:01 | CT ---
EXAMINATION TYPE: CT angio chest DATE OF EXAM: 06/22/2018 12:43 AM COMPARISON: None HISTORY: R/O PE, Chest pain CT DLP: 577.20 mGycm Automated exposure control for dose reduction was used. CONTRAST: CTA scan of the thorax is performed with IV Contrast, patient injected with 75 mL of Isovue 370, pulm onary embolism protocol. There are 3-D post processed images.. FINDINGS: Heart is enlarged. There is pericardial effusion. There is fluid in the distal esophagus. There is co arsening of interstitial pulmonary markings. The thoracic aorta is intact without evidence of aneurys m or dissection. Ascending aorta measures 3.4 cm. I see no filling defects in the pulmonary arteries. There are no hilar masses. There are a few medias tinal lymph nodes measure up to 1 cm. The bony thorax is intact. There is no compression fracture. There is a small right kidney with corti vilma thinning. There is a 2 cm cyst lower pole right kidney. There is plaque formation and stenosis of the abdominal aorta below the renal arteries. Abdominal aorta measures 9 mm. IMPRESSION: NO EVIDENCE OF PULMONARY EMBOLISM. MILD PULMONARY FIBROTIC CHANGES. MILD PERICARDIAL EFFUSION. MILD STENOSIS LOWER ABDOMINAL AORTA. ATROPHY OF THE RIGHT KIDNEY COULD RELATE TO CHRONIC ISCHEMIA.
[2018-06-22 05:47] LABS: Mean Platelet Volume 7.7; Platelet Count 462 k/uL (150-450)
[2018-06-22 05:57] LABS: Cholesterol 128 mg/dL (<200); HDL Cholesterol 26 mg/dL (40-60); LDL Cholesterol,Calculated 73 mg/dL (0-99); Triglycerides 147 mg/dL (<150)
[2018-06-22] MEDS: MORPHINE SULFATE 4 MG/ML SYRINGE IVP PRN ×4 (06:06→18:27)
[2018-06-22 06:11] LABS: Creatine Kinase 28 U/L (30-135)
[2018-06-22 06:25] LABS: Creatine Kinase MB <0.2 ng/mL (0.0-2.4); Troponin I <0.012 ng/mL (0.000-0.034)
[2018-06-22] MEDS ORDERED: PROCHLORPERAZINE 10 MG TAB PO PRN (09:10)
--- NOTE | 2018-06-22 09:56 | P.HPIM ---
History of Present Illness H&P Date: 06/22/18 Chief Complaint: Chest pain This is a history and physical on a 63-year-old white female with history of chronic abdominal pain. She states significant one-day history of chest pain during rest left side of the epigastric with radiation to the jaw. She rates a 10 out of 10 but I suspect that is secondary to her chronic pain in general. CTA was negative for any type of pulmonary embolus but she is appropriately admitted to rule out myocardial infarction and element of angina. The patient has an underlying history of hypertension with hyperlipidemia and opiate dependence. Review of Systems Constitutional: Reports chronic pain, Denies chronic headaches, Denies fatigue Eyes: denies blurred vision, denies pain Ears, nose, mouth and throat: Denies headache, Denies sore throat Cardiovascular: Reports chest pain, Reports shortness of breath Respiratory: Denies cough Gastrointestinal: Denies abdominal pain, Denies diarrhea, Denies nausea, Denies vomiting Genitourinary: Denies dysuria, Denies hematuria Musculoskeletal: Denies myalgias Integumentary: Denies pruritus, Denies rash Neurological: Denies numbness, Denies weakness Psychiatric: Denies anxiety, Denies depression Endocrine: Denies fatigue, Denies weight change Past Medical History Past Medical History: GERD/Reflux, Hyperlipidemia, Hypertension Additional Past Medical History / Comment(s): Chronic abdominal pain-multiple work ups with no cause found, L flank pain, urinary retention, right nephrolithiasis, pt stated rt kidney "non functioning", UTI's-with one currently -on antibiotic, 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 Past Anesthesia/Blood Transfusion Reactions: No Reported Reaction Additional Past Anesthesia/Blood Transfusion Reaction / Comment(s): Pt received blood in 1978-no reaction reported. Smoking Status: Current every day smoker - Past Family History Father Family Medical History: Cancer, Myocardial Infarction ([place]) Additional Family Medical History / Comment(s): Father had lung cancer-went into remission. He of a massive [place] in his 60's Mother Family Medical History: Cancer Additional Family Medical History / Comment(s): Mother of lung cancer at age 54 yrs. Medications and Allergies Home Medications Medication Instructions Recorded Confirmed Type Fenofibrate 160 mg PO HS 11/15/15 06/21/18 History Losartan Potassium [Cozaar] 100 mg PO DAILY 11/15/15 06/21/18 History Metoprolol Tartrate [Lopressor] 50 mg PO BID 11/15/15 06/21/18 History amLODIPine [Norvasc] 10 mg PO DAILY 03/08/17 06/21/18 History Aspirin EC [Ecotrin] 325 mg PO QAM 10/04/17 06/21/18 History Prochlorperazine [Compazine] 10 mg PO TID PRN 04/28/18 06/21/18 History HYDROcodone/APAP 10-325MG [[place] 1 tab PO Q6H PRN #120 tab 05/05/18 06/21/18 Rx 10-325] ALPRAZolam [Xanax] 0.5 mg PO HS PRN 06/21/18 06/21/18 History Amoxic-Pot Clav 875-125Mg 1 tab PO Q12HR 06/21/18 06/21/18 History [Augmentin 875-125] Atorvastatin Calcium [Lipitor] 20 mg PO HS 06/21/18 06/21/18 History Morphine Sulfate ER [Ms Contin] 30 mg PO Q12HR 06/21/18 06/21/18 History Sennosides-Docusate Sodium 1 tab PO BID 06/21/18 06/21/18 History [Senokot-S] cloNIDine HCL [Catapres] 0.1 mg PO BID 06/21/18 06/21/18 History Allergies Allergy/AdvReac Type Severity Reaction Status Date / Time sulfamethoxazole Allergy Itching Verified 06/21/18 23:35 [From Septra] trimethoprim [From Septra] Allergy Itching Verified 06/21/18 23:35 levofloxacin [From Levaquin] AdvReac Muscle Pain Verified 06/21/18 23:35 Physical Exam Vitals: Vital Signs Temp Pulse Resp BP Pulse Ox 06/22/18 05:32 100.7 F H 78 23 107/63 95 06/22/18 03:10 76 26 H 118/67 95 06/22/18 03:00 76 13 126/77 96 06/22/18 02:50 73 27 H 126/77 95 06/22/18 02:30 74 29 H 133/75 95 06/22/18 02:10 77 29 H 126/73 96 06/22/18 01:50 69 25 H 116/67 96 06/22/18 01:30 68 23 115/61 95 06/22/18 01:00 73 26 H 129/80 95 06/22/18 00:01 71 16 124/77 96 06/21/18 23:20 90 20 124/77 95 06/21/18 23:10 83 20 147/86 96 06/21/18 23:00 147/86 96 06/21/18 22:53 98.3 F 80 18 147/86 95 06/21/18 22:52 95 Intake and Output 06/21/18 06/22/18 06/22/18 22:59 06:59 14:59 Other: Weight 68.039 kg - Constitutional General appearance: obese - EENT Eyes: EOMI - Neck Neck: no lymphadenopathy - Respiratory Respiratory: bilateral: CTA - Cardiovascular Rhythm: regular Heart sounds: normal: S1, S2 Abnormal Heart Sounds: no S3 Gallop - Gastrointestinal General gastrointestinal: soft, tenderness - Neurologic Neurologic: CNII-XII intact - Psychiatric Psychiatric: A&O x's 3 Results CBC & Chem 7: 06/22/18 05:28 06/21/18 23:05 Labs: Abnormal Lab Results - Last 24 Hours (Table) 06/21/18 06/21/18 06/22/18 Range/Units 23:05 23:05 05:28 WBC 19.3 H (3.8-10.6) k/uL Plt Count 483 H (150-450) k/uL Neutrophils # 15.1 H (1.3-7.7) k/uL APTT (22.0-30.0) sec Creatinine 0.49 L (0.52-1.04) mg/dL Glucose 147 H (74-99) mg/dL Magnesium 1.4 L (1.6-2.3) mg/dL Total Creatine Kinase 28 L (30-135) U/L HDL Cholesterol (40-60) mg/dL 06/22/18 06/22/18 06/22/18 Range/Units 05:28 05:28 05:28 WBC (3.8-10.6) k/uL Plt Count 462 H (150-450) k/uL Neutrophils # (1.3-7.7) k/uL APTT 31.9 H (22.0-30.0) sec Creatinine (0.52-1.04) mg/dL Glucose (74-99) mg/dL Magnesium (1.6-2.3) mg/dL Total Creatine Kinase (30-135) U/L HDL Cholesterol 26 L (40-60) mg/dL Thrombosis Risk Factor Assmnt - Choose All That Apply Any of the Below Risk Factors Present?: Yes Other Risk Factors: Yes Each Risk Factor Represents 2 Points: Age 61-74 years Other congenital or acquired thrombophilia - If yes, enter type in comment: No Thrombosis Risk Factor Assessment Total Risk Factor Score: 2 Thrombosis Risk Factor Assessment Level: Low Risk Assessment and Plan (1) Chest pain Current Visit: Yes Status: Acute Code(s): R07.9 - CHEST PAIN, UNSPECIFIED SNOMED Code(s): 07735983 (2) Abdominal pain Current Visit: No Status: Acute Code(s): R10.9 - UNSPECIFIED ABDOMINAL PAIN SNOMED Code(s): 89683340 (3) Ischemic nephropathy with renal sclerosis Current Visit: No Status: Acute Code(s): N26.9 - RENAL SCLEROSIS, UNSPECIFIED SNOMED Code(s): 738225139 (4) Amputated left leg Current Visit: No Status: Chronic Code(s): Z89.612 - ACQUIRED ABSENCE OF LEFT LEG ABOVE KNEE SNOMED Code(s): 115727472 (5) Amputated right leg Current Visit: No Status: Chronic Code(s): Z89.611 - ACQUIRED ABSENCE OF RIGHT LEG ABOVE KNEE SNOMED Code(s): 904777728 Plan: We'll go ahead and rule out myocardial infraction. Element of opiate dependence with pain control. Reconcile home medications. We will consult cardiology if necessary. See orders otherwise. Time with Patient: Greater than 30
[2018-06-22] MEDS: ASPIRIN 325 MG TAB PO SCH (10:21)
[2018-06-22] MEDS: SODIUM CHLORIDE 0.9% 1,000 ML IV SCH ×3 (13:09→20:00)
[2018-06-22] MEDS: ONDANSETRON 4 MG/2 ML VIAL IVP PRN (13:09)
[2018-06-22 14:00] LABS: Creatine Kinase 26 U/L (30-135)
[2018-06-22 14:11] LABS: Creatine Kinase MB <0.2 ng/mL (0.0-2.4); Troponin I <0.012 ng/mL (0.000-0.034)
[2018-06-22] MEDS: NITROGLYCERIN SL TABS 0.4 MG TAB SUBLINGUAL PRN (16:25)
[2018-06-22] MEDS ORDERED: SODIUM CHLORIDE 0.9% 500 ML 250 ML IV ONE (17:59)
[2018-06-22] MEDS ORDERED: DILTIAZEM DRIP BOLUS FROM BAG 1 MG SOLN IV ONE ×2 (18:15→18:30)
[2018-06-22] MEDS: DILTIAZEM 50 MG in SODIUM CHLORIDE 0.9% 40 ML IV SCH ×2 (18:55→21:34)
--- NOTE | 2018-06-22 19:35 | P.CRDCN ---
History of Present Illness Consult date: 06/22/18 Chief complaint: Chest discomfort History of present illness: This is a 63-year-old female patient who we requested to see for further evaluation of chest discomfort. The patient does have a past medical history significant for hypertension, dyslipidemia, chronic nicotine use, chronic pain syndrome where the patient did have multiple hospital admission with abdominal pain and she did have extensive workup came in to be negative as well as. 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 She was in her usual state of health until yesterday when she was eating her dinner and after that she did develop what she called it "food stuck in her throat" and subsequently she did spit the foot out and developed nausea and vomiting. Subsequently she started experiencing discomfort in the chest, described as a sharp kind of discomfort, with radiation to the neck, without any associated symptoms of shortness of breath, dizziness or lightheadedness, sweating, or syncope. But since yesterday she has been experiencing intermittent episodes of fluttering in the chest. The patient underwent a computed tomography scan of the chest which showed no evidence of PE. The initial EKG showed sinus rhythm with frequent premature atrial contractions with nonspecific changes most prominent in the inferior leads. The subsequent EKG showed atrial fibrillation with RVR and after that the patient wasn't started on Cardizem drip as well as heparin. The cardiac enzymes came in to be unremarkable. The rest of the blood work came in to be also unremarkable. When I encountered the patient today, she continues to have chest discomfort she was asking also for pain medication. 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 Past Anesthesia/Blood Transfusion Reactions: No Reported Reaction Additional Past Anesthesia/Blood Transfusion Reaction / Comment(s): Pt received blood in 1978-no reaction reported. Smoking Status: Current every day smoker - Past Family History Father Family Medical History: Cancer, Myocardial Infarction ([place]) Additional Family Medical History / Comment(s): Father had lung cancer-went into remission. He of a massive [place] in his 60's Mother Family Medical History: Cancer Additional Family Medical History / Comment(s): Mother of lung cancer at age 54 yrs. Medications and Allergies Home Medications Medication Instructions Recorded Confirmed Type Fenofibrate 160 mg PO HS 11/15/15 06/21/18 History Losartan Potassium [Cozaar] 100 mg PO DAILY 11/15/15 06/21/18 History Metoprolol Tartrate [Lopressor] 50 mg PO BID 11/15/15 06/21/18 History amLODIPine [Norvasc] 10 mg PO DAILY 03/08/17 06/21/18 History Aspirin EC [Ecotrin] 325 mg PO QAM 10/04/17 06/21/18 History Prochlorperazine [Compazine] 10 mg PO TID PRN 04/28/18 06/21/18 History HYDROcodone/APAP 10-325MG [[place] 1 tab PO Q6H PRN #120 tab 05/05/18 06/21/18 Rx 10-325] ALPRAZolam [Xanax] 0.5 mg PO HS PRN 06/21/18 06/21/18 History Amoxic-Pot Clav 875-125Mg 1 tab PO Q12HR 06/21/18 06/21/18 History [Augmentin 875-125] Atorvastatin Calcium [Lipitor] 20 mg PO HS 06/21/18 06/21/18 History Morphine Sulfate ER [Ms Contin] 30 mg PO Q12HR 06/21/18 06/21/18 History Sennosides-Docusate Sodium 1 tab PO BID 06/21/18 06/21/18 History [Senokot-S] cloNIDine HCL [Catapres] 0.1 mg PO BID 06/21/18 06/21/18 History Allergies Allergy/AdvReac Type Severity Reaction Status Date / Time sulfamethoxazole Allergy Itching Verified 06/21/18 23:35 [From ] trimethoprim [From ] Allergy Itching Verified 06/21/18 23:35 levofloxacin [From [facility]] AdvReac Muscle Pain Verified 06/21/18 23:35 Physical Exam Vitals: Vital Signs Temp Pulse Pulse Resp BP BP Pulse Ox 06/22/18 13:50 98.9 F 74 18 154/70 96 06/22/18 13:00 73 16 121/61 94 L 06/22/18 12:00 134/67 90 L 06/22/18 10:00 101/50 06/22/18 08:00 77 29 H 114/55 96 06/22/18 05:32 100.7 F H 78 23 107/63 95 06/22/18 03:10 76 26 H 118/67 95 06/22/18 03:00 76 13 126/77 96 06/22/18 02:50 73 27 H 126/77 95 06/22/18 02:30 74 29 H 133/75 95 06/22/18 02:10 77 29 H 126/73 96 06/22/18 01:50 69 25 H 116/67 96 06/22/18 01:30 68 23 115/61 95 06/22/18 01:00 73 26 H 129/80 95 06/22/18 00:01 71 16 124/77 96 06/21/18 23:20 90 20 124/77 95 06/21/18 23:10 83 20 147/86 96 06/21/18 23:00 147/86 96 06/21/18 22:53 98.3 F 80 18 147/86 95 06/21/18 22:52 95 Intake and Output 06/22/18 06/22/18 06/22/18 06:59 14:59 22:59 Intake Total 211.509 Balance 211.509 Intake: Intake, IV Titration 211.509 Amount Heparin Sod,Pork in 0.45% 211.509 NaCl 25,000 unit In 0.45 % NaCl 1 500ml.bag @ 12 UNITS/KG/HR 16.32 mls/hr IV .Q24H [facility] Rx#: [id number] Other: # Voids 1 - Constitutional General appearance: no acute distress - Respiratory Respiratory: bilateral: CTA - Cardiovascular Rhythm: irregularly irregular Heart sounds: normal: S1, S2 Results 06/22/18 05:28 06/21/18 23:05 Cardiac Enzymes 06/21/18 06/21/18 06/22/18 Range/Units 23:05 23:05 05:28 AST 16 (14-36) U/L CK-MB (CK-2) 0.2 <0.2 (0.0-2.4) ng/mL Troponin I <0.012 <0.012 (0.000-0.034) ng/mL 06/22/18 Range/Units 12:55 AST (14-36) U/L CK-MB (CK-2) <0.2 (0.0-2.4) ng/mL Troponin I <0.012 (0.000-0.034) ng/mL Coagulation 06/21/18 06/22/18 06/22/18 Range/Units 23:05 05:28 11:36 PT 10.5 (9.0-12.0) sec APTT 26.7 31.9 H 34.5 H (22.0-30.0) sec 06/22/18 Range/Units 17:35 PT (9.0-12.0) sec APTT 53.4 H (22.0-30.0) sec Lipids 06/22/18 Range/Units 05:28 Triglycerides 147 (<150) mg/dL Cholesterol 128 (<200) mg/dL HDL Cholesterol 26 L (40-60) mg/dL CBC 06/21/18 06/22/18 Range/Units 23:05 05:28 WBC 19.3 H (3.8-10.6) k/uL RBC 4.84 (3.80-5.40) m/uL Hgb 14.0 (11.4-16.0) gm/dL Hct 42.0 (34.0-46.0) % Plt Count 483 H 462 H (150-450) k/uL Comprehensive Metabolic Panel 06/21/18 Range/Units 23:05 Sodium 138 (137-145) mmol/L Potassium 3.9 (3.5-5.1) mmol/L Chloride 106 (98-107) mmol/L Carbon Dioxide 22 (22-30) mmol/L BUN 14 (7-17) mg/dL Creatinine 0.49 L (0.52-1.04) mg/dL Glucose 147 H (74-99) mg/dL Calcium 9.5 (8.4-10.2) mg/dL AST 16 (14-36) U/L ALT 24 (9-52) U/L Alkaline Phosphatase 48 (38-126) U/L Total Protein 6.6 (6.3-8.2) g/dL Albumin 3.6 (3.5-5.0) g/dL Current Medications Generic Name Dose Route Start Last Admin Trade Name Freq PRN Reason Stop Dose Admin Hydrocodone Bitart/Acetaminophen 1 each 06/22/18 09:10 [place] 10 PO Q6H PRN MODERATE Pain Albuterol Sulfate 2.5 mg 06/22/18 09:53 Ventolin Nebulized INHALATION RT-QID PRN Shortness Of Breath Or Wheezing Alprazolam 0.5 mg 06/22/18 09:10 Xanax PO HS PRN Insomnia Amlodipine Besylate 10 mg 06/23/18 09:00 Norvasc PO DAILY [facility] Aspirin 325 mg 06/22/18 09:00 06/22/18 10:21 Aspirin PO 325 mg DAILY [facility] Administration Atorvastatin Calcium 20 mg 06/22/18 21:00 Lipitor PO HS [facility] Clonidine 0.1 mg 06/22/18 21:00 Catapres PO BID [facility] Fenofibrate 160 mg 06/22/18 21:00 Lofibra PO HS [facility] Heparin Sodium (Porcine) 0 unit 06/21/18 23:45 06/22/18 10:22 Heparin IV 5,000 unit Q6HR PRN Administration Low PTT Protocol Heparin Sodium/Sodium Chloride 500 mls @ 16.32 mls/hr 06/21/18 23:45 13:10 25,000 unit/ Sodium Chloride IV 18 units/kg/hr .Q24H [facility] 24.49 mls/hr Titration Protocol 12 UNITS/KG/HR Sodium Chloride 1,000 mls @ 100 mls/hr 06/21/18 23:45 06/22/18 13:09 Saline 0.9% IV 100 mls/hr .Q10H [facility] Administration Diltiazem HCl 50 mg/ Sodium 50 mls @ 10 mls/hr 06/22/18 18:30 06/22/18 18:55 Chloride IV 10 mg/hr .Q5H [facility] 10 mls/hr Administration 10 MG/HR Magnesium Sulfate/Dextrose 1 100 mls @ 100 mls/hr 06/22/18 19:00 gm/ IV Solution IVPB 06/22/18 20:59 Q1H [facility] Losartan Potassium 100 mg 06/23/18 09:00 Cozaar PO DAILY [facility] Metoprolol Tartrate 50 mg 06/22/18 21:00 Lopressor PO BID [facility] Morphine Sulfate 4 mg 06/21/18 23:43 06/22/18 18:27 Morphine Sulfate (Inj) IVP 4 mg Q4HR PRN Administration Pain Nitroglycerin 0.4 mg 06/21/18 23:45 06/22/18 16:25 Nitrostat SUBLINGUAL 0.4 mg Q5M PRN Administration Chest Pain Ondansetron HCl 4 mg 06/22/18 00:32 06/22/18 13:09 Zofran IVP 4 mg Q6HR PRN Administration Nausea And Vomiting Prochlorperazine Maleate 10 mg 06/22/18 09:10 Compazine PO TID PRN Nausea Senna/Docusate Sodium 1 each 06/22/18 21:00 Senokot-S PO BID [facility] Intake and Output 06/22/18 06/22/18 06/22/18 06:59 14:59 22:59 Intake Total 211.509 Balance 211.509 Intake: Intake, IV Titration 211.509 Amount Heparin Sod,Pork in 0.45% 211.509 NaCl 25,000 unit In 0.45 % NaCl 1 500ml.bag @ 12 UNITS/KG/HR 16.32 mls/hr IV .Q24H [facility] Rx#: [id number] Other: # Voids 1 06/22/18 05:28 06/21/18 23:05 Assessment and Plan Assessment: Assessment #1 ongoing chest discomfort. #2 atrial fibrillation, with controlled heart rate, the A. fib is of new onset. #3 hypertension #4 dyslipidemia #5 chronic nicotine use #6 chronic pain syndrome #7 bilateral [id number] amputation related to defect. Plan #1 acute coronary syndrome to be ruled out. #2 severe underlying coronary artery disease to be ruled out in this patient with hypertension, dyslipidemia, and significant history of smoking #3 continue the Cardizem IV as well as heparin IV #4 continue the current dose of metoprolol and increase the dose to control the heart rate #5 obtain an echocardiogram was Doppler #6 consider oral anticoagulation down the line. Thank you for allowing us participate in her care
[2018-06-22] MEDS: MAGNESIUM SULFATE-D5W PMX 1 GM in DEXTROSE/WATER 1 100ML.BAG IVPB SCH ×2 (19:43→20:50)
[2018-06-22] MEDS: SENNOSIDES-DOCUSATE SODIUM 1 EACH TAB PO SCH (19:57)
[2018-06-22] MEDS: ATORVASTATIN 20 MG TAB PO SCH (19:57)
[2018-06-22] MEDS: cloNIDine HCL 0.1 MG TAB PO SCH (19:57)
[2018-06-22] MEDS: METOPROLOL TARTRATE 50 MG TAB PO SCH (19:58)
[2018-06-22] MEDS: FENOFIBRATE 160 MG TAB PO SCH (19:58)
[2018-06-22] MEDS: ALPRAZolam 0.5 MG TAB PO PRN (20:14)
[2018-06-22] MEDS: HYDROmorphone 1 MG/ML 1 ML SYRINGE IVP PRN (20:48)
[2018-06-22] MEDS ORDERED: MORPHINE SULFATE ER 30 MG TABLET PO SCH (21:00)
[2018-06-23] MEDS: HEPARIN SOD,PORK IN 0.45% NACL 25,000 UNIT in 0.45% NACL 1 500ML.BAG IV SCH (00:32)
[2018-06-23] MEDS: HYDROmorphone 1 MG/ML 1 ML SYRINGE IVP PRN ×7 (00:35→20:42)
[2018-06-23] MEDS: ONDANSETRON 4 MG/2 ML VIAL IVP PRN ×3 (01:54→17:50)
[2018-06-23] MEDS: DILTIAZEM 50 MG in SODIUM CHLORIDE 0.9% 40 ML IV SCH ×2 (03:04→11:33)
[2018-06-23] MEDS: NITROGLYCERIN SL TABS 0.4 MG TAB SUBLINGUAL PRN (06:01)
[2018-06-23] MEDS: SODIUM CHLORIDE 0.9% 1,000 ML IV SCH ×2 (06:59→17:16)
[2018-06-23 07:03] LABS: Anion Gap 10 mmol/L; Blood Urea Nitrogen 17 mg/dL (7-17); Calcium 9.2 mg/dL (8.4-10.2); Carbon Dioxide 18 mmol/L (22-30); Chloride 110 mmol/L (98-107); Glucose 106 mg/dL (74-99); Magnesium 2.1 mg/dL (1.6-2.3); Potassium 4.4 mmol/L (3.5-5.1); Sodium 138 mmol/L (137-145)
[2018-06-23 07:10] LABS: Basophils # (A) 0.1 k/uL (0-0.2); Basophils % (A) 0 %; Eosinophils # (A) 0.1 k/uL (0-0.7); Eosinophils % (A) 0 %; HCT 38.2 % (34.0-46.0); HGB 12.2 gm/dL (11.4-16.0); Lymphocytes # (A) 3.8 k/uL (1.0-4.8); Lymphocytes % (A) 20 %; MCH 28.4 pg (25.0-35.0); MCV 88.6 fL (80.0-100.0); Mean Platelet Volume 7.7; Monocytes # (A) 1.4 k/uL (0-1.0); Monocytes % (A) 7 %; Neutrophils # (A) 13.5 k/uL (1.3-7.7); Neutrophils % (A) 71 %; Platelet Count 535 k/uL (150-450); RBC 4.31 m/uL (3.80-5.40); RDW 13.8 % (11.5-15.5)
[2018-06-23] MEDS: ALBUTEROL NEBULIZED 2.5 MG/3 ML INHALATION PRN ×2 (07:29→20:18)
[2018-06-23] MEDS: LOSARTAN 50 MG TAB PO SCH (08:15)
[2018-06-23] MEDS: METOPROLOL TARTRATE 50 MG TAB PO SCH ×2 (08:15→20:46)
[2018-06-23] MEDS: amLODIPine 10 MG TAB PO SCH (08:15)
[2018-06-23] MEDS: SENNOSIDES-DOCUSATE SODIUM 1 EACH TAB PO SCH ×2 (08:15→17:15)
[2018-06-23] MEDS: ASPIRIN 325 MG TAB PO SCH (08:15)
[2018-06-23] MEDS: cloNIDine HCL 0.1 MG TAB PO SCH ×2 (08:15→20:46)
--- NOTE | 2018-06-23 13:42 | PN ---
PROGRESS NOTE HISTORY: Ms. Sotelo is a 63-year-old female who presented with symptoms of chest discomfort. She has history of hypertension, hyperlipidemia, chronic tobacco use, and chronic pain syndrome. She presented with sinus mechanism, subsequently went in atrial fibrillation, and she converted back to sinus mechanism early this morning. She is status post bilateral AKA at age of 6 because of defect. She continues to have discomfort that does not appear to be cardiac and more respirophasic in pattern. She continues to be on aspirin, Lipitor 20 mg daily. She is off her IV Cardizem. She is on clonidine 0.1 mg twice a day, metoprolol tartrate 50 mg twice a day, Cozaar 100 mg daily. PHYSICAL EXAMINATION: Blood pressure 150/70 with a heart in 70s. LUNGS: Clear. HEART: Regular rate and rhythm. S1, S2. No S3. No rub. ABDOMEN: Soft, nontender. EXTREMITIES: Status post AKA bilaterally. LAB DATA: Revealed BUN and creatinine 17 and 0.58, potassium 4.4, hemoglobin 12.2, troponin less than 0.012, LDL of 73. IMPRESSION: 1. Paroxysmal atrial fibrillation, back in sinus mechanism. 2. Atypical chest pain. 3. Hypertension. 4. Hyperlipidemia. 5. Chronic tobacco use. 6. Bilateral above the knee amputation bilaterally. RECOMMENDATIONS: I will stop the IV Cardizem. I will switch her to oral anticoagulation. We will obtain echocardiogram with Doppler. Depending on her progress, further recommendation will be made. MMODL / IJN: [id number] /
[2018-06-23 16:48] LABS: Appearance,Urine Clear (Clear); Bilirubin,Urine Negative (Negative); Blood,Urine Negative (Negative); Color,Urine Yellow; Glucose,Urine (UA) Negative (Negative); Hyaline Casts,Urine 1 /lpf (0-2); Ketones,Urine Trace (Negative); Leukocyte Esterase,Urine Moderate (Negative); Mucus,Urine Rare /hpf; Nitrite,Urine Negative (Negative); PH, Urine 5.5 (5.0-8.0); Protein,Urine Trace (Negative); RBC,Urine 2 /hpf (0-5); Renal Epithelial Cells,Urine <1 /hpf (0); Squamous Epithelial Cell,Urine <1 /hpf (0-4); Urobilinogen,Urine <2.0 mg/dL (<2.0); WBC,Urine 25 /hpf (0-5)
[2018-06-23] MEDS: RIVAROXABAN 20 MG TAB PO SCH (17:50)
[2018-06-23] MEDS ORDERED: FUROSEMIDE 10 MG/ML 2 ML VIAL IV STA (17:58)
[2018-06-23] MEDS: HYDROcodone/APAP 10-325MG 1 EACH TAB PO PRN (17:59)
[2018-06-23] MEDS: FENOFIBRATE 160 MG TAB PO SCH (20:46)
[2018-06-23] MEDS: ATORVASTATIN 20 MG TAB PO SCH (20:46)
[2018-06-23] MEDS: ALPRAZolam 0.5 MG TAB PO PRN (21:54)
[2018-06-24] MEDS: HYDROmorphone 1 MG/ML 1 ML SYRINGE IVP PRN ×6 (01:00→22:01)
--- NOTE | 2018-06-24 01:09 | PN ---
PROGRESS NOTE DATE OF SERVICE: 06/23/2018. I am covering for Dr. Nguyen. HISTORY: This 63-year-old woman with a past medical history of multiple medical problems including hypertension and hyperlipidemia, was admitted with chest pain. The patient is also complaining of complaining of abdominal pain as well. The chest pain is continuous and within the left side of the chest, anterior part of the chest. Troponins are negative at this time. Cardiology is following the patient closely. The patient also has paroxysmal atrial fibrillation. A chest CT was also done which effectively ruled out the possibility of pulmonary embolism. PAST MEDICAL HISTORY: Negative. REVIEW OF SYSTEMS: CARDIOVASCULAR SYSTEM: As mentioned. GI: No nausea. : No dysuria. NERVOUS SYSTEM: No numbness. CURRENT MEDICATIONS: 1. [place] 10 mg every 6 hours p.r.n. 2. Xanax 0.5 at bedtime. 3. Norvasc 10 mg. 4. Aspirin 81 mg. 5. Lipitor 20 mg. 6. Catapres 0.1 b.i.d. 8. Dilaudid 1 mg every 4 hours p.r.n. 9. Cozaar 100 mg. 10.Lopressor 50 mg b.i.d. 12.Zofran. 13.Compazine 10 mg t.i.d. 14.Xarelto 20 mg at supper. 15.Senokot-S. PHYSICAL EXAM: Patient is alert, oriented x3. Pulse 70, blood pressure 190/60, respirations 18 , temperature 98.4, pulse ox 94% on room air. HEENT: Conjunctivae normal. Oral mucosa moist. NECK: No jugular venous distention. No lymph node enlargement. CARDIAC: Breath sounds diminished at the bases. Few scattered rhonchi and crackles. ABDOMEN: Soft. Mild discomfort on palpation. LEGS: No edema. NERVOUS SYSTEM: No focal deficits. LAB STUDIES: WBC 19, sodium 130, potassium 4.4, CO2 is 18. UA noted. ASSESSMENT: 1. Chest pain possibly musculoskeletal. Myocardial infarction ruled out. 2. Acute urinary tract infection. 3. Increased WBC. 4. Abdominal pain. 5. Hypertension. 6. Hyperlipidemia. 7. Gastroesophageal reflux disease. 8. History of nephrolithiasis. 9. History of recurrent urinary tract infections. 10. sections. 11.Hysterectomy. 12.Paroxysmal atrial fibrillation. RECOMMENDATIONS: In this 63-year-old woman who presented with multiple complex medical issues, we will monitor the patient closely, continue the current management and symptomatic treatment. Otherwise at this time I recommend add broad-spectrum IV antibiotics. Otherwise I would recommend to resume home medications. Symptomatic treatment for the pain will be provided. Xarelto has been initiated. Cardiology following the patient closely. Prognosis is guarded. Further recommendations to follow. Also obtain urine and blood culture also. Repeat labs will also be ordered. Discussed with staff as well as patient. EARLE / LEONELN: [id number] / SIVAN
[2018-06-24] MEDS: HYDROcodone/APAP 10-325MG 1 EACH TAB PO PRN ×2 (03:33→16:11)
[2018-06-24] MEDS: SODIUM CHLORIDE 0.9% 1,000 ML IV SCH (06:22)
[2018-06-24 06:46] LABS: Basophils % (A) 0 %; Eosinophils # (A) 0.3 k/uL (0-0.7); Eosinophils % (A) 3 %; HCT 35.6 % (34.0-46.0); HGB 11.6 gm/dL (11.4-16.0); Lymphocytes # (A) 3.2 k/uL (1.0-4.8); Lymphocytes % (A) 34 %; MCH 28.6 pg (25.0-35.0); MCHC 32.6 g/dL (31.0-37.0); MCV 87.7 fL (80.0-100.0); Mean Platelet Volume 8.1; Monocytes # (A) 0.4 k/uL (0-1.0); Monocytes % (A) 5 %; Neutrophils # (A) 5.4 k/uL (1.3-7.7); Neutrophils % (A) 57 %; Platelet Count 434 k/uL (150-450); RBC 4.06 m/uL (3.80-5.40); WBC 9.5 k/uL (3.8-10.6)
[2018-06-24 06:59] LABS: Anion Gap 6 mmol/L; Blood Urea Nitrogen 18 mg/dL (7-17); Calcium 8.7 mg/dL (8.4-10.2); Carbon Dioxide 24 mmol/L (22-30); Chloride 112 mmol/L (98-107); Glucose 90 mg/dL (74-99); Potassium 3.7 mmol/L (3.5-5.1); Sodium 142 mmol/L (137-145)
[2018-06-24] MEDS: ONDANSETRON 4 MG/2 ML VIAL IVP PRN ×2 (09:32→20:04)
[2018-06-24] MEDS: LOSARTAN 50 MG TAB PO SCH (09:51)
[2018-06-24] MEDS: ASPIRIN 81 MG PO SCH (09:51)
[2018-06-24] MEDS: METOPROLOL TARTRATE 50 MG TAB PO SCH ×2 (09:51→20:14)
[2018-06-24] MEDS: amLODIPine 10 MG TAB PO SCH (09:52)
[2018-06-24] MEDS: SENNOSIDES-DOCUSATE SODIUM 1 EACH TAB PO SCH ×2 (09:52→20:14)
[2018-06-24] MEDS: cloNIDine HCL 0.1 MG TAB PO SCH ×2 (09:52→20:14)
--- NOTE | 2018-06-24 10:40 | P.PN ---
Subjective Progress Note Date: 06/24/18 This pleasant 63-year-old female who presented with symptoms of chest discomfort. She has a history of hypertension, hyperlipidemia, chronic tobacco use and chronic pain syndrome. She presented with sinus mechanism and subsequently went into atrial fibrillation for which she has converted back to sinus rhythm yesterday. She does have a history of bilateral AKA 84 due to defect. She continues to complain of discomfort, mostly in her right low back. Apparently she sustained an injury from a family member's dog jumping on her. Vital signs are stable. She's been started on oral anticoagulation. Objective - Vital Signs Vital signs: Vital Signs Temp 98.6 F 06/24/18 03:36 Pulse 72 06/24/18 03:45 Resp 18 06/24/18 03:45 BP 139/73 06/24/18 03:36 Pulse Ox 94 L 06/24/18 03:36 Intake & Output 06/23/18 06/24/18 06/24/18 18:59 06:59 18:59 Intake Total 2020 1050 Output Total 800 Balance 1220 1050 Weight 86.5 kg 89 kg Intake: IV 270 Diltiazem 50 mg In Sodium 20 Chloride 0.9% 40 ml @ 10 MG/HR 10 mls/hr IV .Q5H [facility] Rx#:[id number] Heparin Sod,Pork in 0.45% 250 NaCl 25,000 unit In 0.45 % NaCl 1 500ml.bag @ 12 UNITS/KG/HR 16.32 mls/hr IV .Q24H [facility] Rx#: [id number] Intake, IV Titration 1200 650 Amount Diltiazem 50 mg In Sodium 0 Chloride 0.9% 40 ml @ 10 MG/HR 10 mls/hr IV .Q5H [facility] Rx#:[id number] Sodium Chloride 0.9% 1, 1200 550 000 ml @ 50 mls/hr IV . Q20H [facility] Rx#:[id number] cefTRIAXone 1,000 mg In 100 Sodium Chloride 0.9% 50 ml @ 100 mls/hr IVPB Q24HR [facility] Rx#:[id number] Oral 550 400 Output: Urine 800 Other: Voiding Method Bedpan Bedpan # Voids 1 3 # Bowel Movements 1 - Exam PHYSICAL EXAMINATION: HEENT: Head is atraumatic, normocephalic. Pupils equal, round. Neck is supple. There is no elevated jugular venous pressure. HEART EXAMINATION: Heart sounds regular, S1 and S2 normal. No murmur or gallop heard. CHEST EXAMINATION: Lungs are clear to auscultation and precussion. No chest wall tenderness is noted on palpation or with deep breathing. ABDOMEN: Soft, nontender. Bowel sounds are heard. No organomegaly noted. EXTREMITIES: Status post bilateral AKA. NEUROLOGIC patient is awake, alert and oriented x3. . - Labs CBC & Chem 7: 06/24/18 06:17 06/24/18 06:17 Labs: Abnormal Lab Results - Last 24 Hours (Table) 06/23/18 06/24/18 Range/Units 16:23 06:17 Chloride 112 H (98-107) mmol/L BUN 18 H (7-17) mg/dL Urine Protein Trace H (Negative) Urine Ketones Trace H (Negative) Ur Leukocyte Esterase Moderate H (Negative) Urine WBC 25 H (0-5) /hpf Urine WBC Clumps Rare H (None) /hpf Urine Mucus Rare H (None) /hpf Microbiology - Last 24 Hours (Table) 06/23/18 16:23 Urine Culture - Preliminary Urine,Clean Catch Assessment and Plan Assessment: 1 paroxysmal atrial fibrillation, currently maintaining sinus rhythm #2 atypical chest pain #3 hypertension #4 hyperlipidemia #5 chronic tobacco use #6 bilateral [id number] amputation Plan: From cardiology perspective, medications were reviewed and we will continue the same. We will check coverage for Xarelto. Patient may be discharged home from her perspective and follow-up as an outpatient. ALUMNI RELATIONS COORDINATOR note has been reviewed, I agree with a documented findings and plan of care. Patient was seen and examined.
[2018-06-24] MEDS: ALBUTEROL NEBULIZED 2.5 MG/3 ML INHALATION PRN (13:14)
--- NOTE | 2018-06-24 13:59 | XR ---
EXAMINATION TYPE: XR chest 1V DATE OF EXAM: 06/24/2018 COMPARISON: 06/21/2018 HISTORY: Right-sided chest pain and shortness of breath TECHNIQUE: Single frontal view of the chest is obtained. FINDINGS: There are new layering pleural effusions obscuring the hemidiaphragms and costophrenic ang les and minimal pulmonary vascular congestion as well as marked cardiomegaly as seen on the prior. Li near left lower lung atelectasis is now present. Bibasilar airspace disease is also seen. Partial vis ualization of a cervical fusion device is noted. Osseous structures are grossly intact. IMPRESSION: New layering pleural effusions with associated bibasilar airspace disease, right greater than left and mild pulmonary vascular congestion in combination with marked cardiomegaly suggesting underlying decompensated congestive heart failure.
--- NOTE | 2018-06-24 14:01 | XR ---
EXAMINATION TYPE: XR Hip Complete RT DATE OF EXAM: 06/24/2018 CLINICAL HISTORY: Right hip pain TECHNIQUE: AP and frogleg views of the right hip are obtained. COMPARISON: None. FINDINGS: Technique is suboptimal secondary to patient body habitus. There is no gross evidence of a cute fracture/dislocation evident in the right hip. The joint space in the right hip appears slightl y narrowed medially. The overlying soft tissue appears unremarkable. IMPRESSION: There is no gross evidence of acute fracture or dislocation in the right hip although th e exam is slightly suboptimal given patient body habitus. Mild right-sided femoral acetabular arthrop athy is present.
--- NOTE | 2018-06-24 14:17 | XR ---
Abdomen HISTORY: Pain Frontal view of the abdomen submitted on 2 images and correlated prior exam 04/21/2018 The pelvis shows a stable appearance, there is deformity of the left hip as on prior exam. Oval calci fications most of the right ilium may represent calcified diverticulum or mesenteric node versus inje ction granuloma. Deformity of the left ilium is stable, these findings may be posttraumatic. Lung bas es are remarkable for possible basilar effusions are not well seen. IMPRESSION: Posttraumatic changes and additional findings above. Possible basilar effusions
[2018-06-24] MEDS ORDERED: IPRATROPIUM-ALBUTEROL 3 ML NEB INHALATION PRN (15:22)
[2018-06-24] MEDS: FUROSEMIDE 10 MG/ML 4 ML VIAL IV SCH (16:02)
--- NOTE | 2018-06-24 16:16 | ECHOF ---
Referral Reason:a.fib MEASUREMENTS -------- HEIGHT: 170.2 cm WEIGHT: 88.9 kg BP: 139/73 RVIDd: 3.3 cm (< 3.3) IVSd: 1.4 cm (0.6 - 1.1) LVIDd: 3.4 cm (3.9 - 5.3) LVPWd: 1.4 cm (0.6 - 1.1) IVSs: 2.4 cm LVIDs: 2.7 cm LVPWs: 2.2 cm LA Diam: 3.7 cm (2.7 - 3.8) Ao Diam: 3.1 cm (2.0 - 3.7) AV Cusp: 2.5 cm (1.5 - 2.6) MV EXCURSION: 9.371 mm (> 18.000) MV EF SLOPE: 38 mm/s (70 - 150) EPSS: 0.3 cm MV E Gustavo: 1.37 m/s MV DecT: 270 ms MV A Gustavo: 1.33 m/s MV E/A Ratio: 1.03 AV maxP.84 mmHg AV meanP.40 mmHg RAP: 5.00 mmHg RVSP: 48.68 mmHg FINDINGS -------- Sinus rhythm. This was a technically adequate study. The left ventricular size is normal. There is moderate concentric left ventricular hypertrophy. O verall left ventricular systolic function is normal with, an EF between 55 - 60 %. The right ventricle is mildly enlarged. The left atrial size is normal. The right atrium was not well visualized. There is mild aortic valve sclerosis. Peak/mean gradient across the Aortic Valve is 13.84mmHg / 8.4 0mmHg. The mitral valve leaflets are mildly thickened. Moderate mitral annular calcification present. Mi ld mitral regurgitation is present. The peak and mean MV gradients are 11.64mmHg 5.26mmHg as measu red by doppler. Mild tricuspid regurgitation present. There is moderate pulmonary hypertension. The right ventric ular systolic pressure, as measured by Doppler, is 48.68mmHg. Trace/mild (physiologic) pulmonic regurgitation. The aortic root size is normal. Normal inferior vena cava with normal inspiratory collapse consistent with estimated right atrial pre ssure of 5 mmHg. The inferior vena cava is mildly dilated. There is a small, generalized pericardial effusion present. CONCLUSIONS -------- 1. Sinus rhythm. 2. This was a technically adequate study. 3. The left ventricular size is normal. 4. There is moderate concentric left ventricular hypertrophy. 5. Overall left ventricular systolic function is normal with, an EF between 55 - 60 %. 6. The right ventricle is mildly enlarged. 7. The left atrial size is normal. 8. The right atrium was not well visualized. 9. There is mild aortic valve sclerosis. 10. Peak/mean gradient across the Aortic Valve is 13.84mmHg / 8.40mmHg. 11. The mitral valve leaflets are mildly thickened. 12. Moderate mitral annular calcification present. 13. Mild mitral regurgitation is present. 14. The peak and mean MV gradients are 11.64mmHg 5.26mmHg as measured by doppler. 15. Mild tricuspid regurgitation present. 16. There is moderate pulmonary hypertension. 17. Trace/mild (physiologic) pulmonic regurgitation. 18. The aortic root size is normal. 19. Normal inferior vena cava with normal inspiratory collapse consistent with estimated right atrial pressure of 5 mmHg. 20. The inferior vena cava is mildly dilated. 21. There is a small, generalized pericardial effusion present. MAINTENANCE DEPARTMENT TECHNICIAN: Elizabeth Estrella RDCS
[2018-06-24] MEDS: RIVAROXABAN 20 MG TAB PO SCH (16:30)
[2018-06-24] MEDS ORDERED: DILTIAZEM DRIP BOLUS FROM BAG 1 MG SOLN IV ONE (18:20)
[2018-06-24] MEDS: DILTIAZEM 50 MG in SODIUM CHLORIDE 0.9% 40 ML IV SCH ×2 (18:28→23:30)
--- NOTE | 2018-06-24 18:46 | PN ---
PROGRESS NOTE DATE OF SERVICE: 06/24/2018 This 63-year-old woman with a past medical history of multiple medical problems was admitted with significant chest pains. The patient was also complaining of shortness of breath. The most recent chest x-ray showed bilateral fluid overload, indicating CHF. The patient was admitted for further evaluation and treatment. Multiple consultants are following the patient closely. Past medical history reviewed. REVIEW OF SYSTEMS: CARDIOVASCULAR SYSTEM: As mentioned earlier. RESPIRATORY SYSTEM: As mentioned earlier. GI: No nausea, vomiting. : No dysuria or retention. NERVOUS SYSTEM: No numbness, weakness.. ALLERGY/IMMUNOLOGY: No asthma or hayfever. MUSCULOSKELETAL: As mentioned earlier. CURRENT MEDICATIONS: Reviewed. They include: 1. [place] 10 mg q.6 p.r.n. 2. DuoNeb q.i.d. and p.r.n. 3. Xanax 0.5 at bedtime p.r.n. 4. Norvasc 10 mg p.o. daily. 5. Aspirin 81 mg daily. 6. Lipitor 20 mg at bedtime. 7. Rocephin 1 gram daily. 8. Catapres 0.1 p.o. b.i.d. 9. Lofibra 160 mg p.o. at bedtime. 10.Lasix 40 mg IV daily. 11.Dilaudid 4 mg q.4 p.r.n. 12.Cozaar 100 mg p.o. daily. 13.Lopressor 80 mg p.o. b.i.d. 14.Nitroglycerin 0.4 sublingually p.r.n. 15.Zofran 4 mg IV q.6 p.r.n. 16.Xarelto 20 mg p.o. with supper. 17.Senokot-S 1 tablet p.o. daily. PHYSICAL EXAMINATION: Patient is alert, oriented x3. Pulse is 67, blood pressure 123/74, respiration 20, temperature 98.7, pulse ox 95% on room air. HEENT: Conjunctivae normal. Oral mucosa moist. NECK: No jugular venous distention. No carotid bruit. No lymph node enlargement. CARDIOVASCULAR SYSTEM: S1, S2 muffled. RESPIRATORY SYSTEM: Breath sounds diminished at the bases. A few scattered rhonchi and crackles. ABDOMEN: Soft, obese, non-tender. No mass palpable. LEGS: No edema. No swelling. NERVOUS SYSTEM: No focal deficit. LABS: CBC within normal limits. Sodium 142, potassium 3.7. UA noted. ASSESSMENT: 1. Chest pain, possibly musculoskeletal. Myocardial infarction ruled out. 2. Congestive heart failure, acute exacerbation, with acute on chronic systolic dysfunction. 3. Acute urinary tract infection, present on admission. 4. Increased white count. 5. Abdominal pain. 6. Hypertension. 7. Hyperlipidemia. 8. Gastroesophageal reflux disease. 9. History of nephrolithiasis. 10.History of recurrent urinary tract infection. 11.History of section. 12.History of hysterectomy. 13.Paroxysmal atrial fibrillation. RECOMMENDATIONS AND DISCUSSION: I recommend to continue current medication, continue with symptomatic treatment. Will initiate broad-spectrum IV antibiotics, diuretics. Two-D echo with Doppler. Follow closely with Cardiology. Continue the rest of the medications, antibiotics. Guarded prognosis because of multiple complex medical issues. Further recommendations to follow. MMODL / IJN: [id number] /
[2018-06-24] MEDS: FENOFIBRATE 160 MG TAB PO SCH (20:14)
[2018-06-24] MEDS: IPRATROPIUM-ALBUTEROL 3 ML NEB INHALATION SCH (20:22)
[2018-06-24] MEDS: ATORVASTATIN 20 MG TAB PO SCH (22:00)
[2018-06-24] MEDS: ALPRAZolam 0.5 MG TAB PO PRN (22:00)
[2018-06-25] MEDS: HYDROmorphone 1 MG/ML 1 ML SYRINGE IVP PRN ×6 (01:50→21:42)
[2018-06-25] MEDS: HYDROcodone/APAP 10-325MG 1 EACH TAB PO PRN ×3 (04:43→20:54)
[2018-06-25] MEDS: DILTIAZEM 50 MG in SODIUM CHLORIDE 0.9% 40 ML IV SCH ×2 (05:53→09:41)
[2018-06-25 07:24] LABS: Basophils % (A) 0 %; Eosinophils # (A) 0.3 k/uL (0-0.7); Eosinophils % (A) 2 %; HCT 38.7 % (34.0-46.0); HGB 12.2 gm/dL (11.4-16.0); Lymphocytes # (A) 3.5 k/uL (1.0-4.8); Lymphocytes % (A) 35 %; MCH 27.5 pg (25.0-35.0); MCHC 31.4 g/dL (31.0-37.0); MCV 87.4 fL (80.0-100.0); Mean Platelet Volume 8.4; Monocytes # (A) 0.6 k/uL (0-1.0); Monocytes % (A) 6 %; Neutrophils # (A) 5.6 k/uL (1.3-7.7); Neutrophils % (A) 55 %; Platelet Count 592 k/uL (150-450); RBC 4.43 m/uL (3.80-5.40); RDW 13.9 % (11.5-15.5); WBC 10.2 k/uL (3.8-10.6)
[2018-06-25 07:26] LABS: Anion Gap 7 mmol/L; Blood Urea Nitrogen 20 mg/dL (7-17); Calcium 9.4 mg/dL (8.4-10.2); Carbon Dioxide 26 mmol/L (22-30); Chloride 107 mmol/L (98-107); Glucose 93 mg/dL (74-99); Potassium 4.6 mmol/L (3.5-5.1); Sodium 140 mmol/L (137-145)
[2018-06-25] MEDS: ONDANSETRON 4 MG/2 ML VIAL IVP PRN ×2 (07:31→17:02)
[2018-06-25] MEDS: IPRATROPIUM-ALBUTEROL 3 ML NEB INHALATION SCH ×3 (07:59→21:14)
[2018-06-25] MEDS: amLODIPine 10 MG TAB PO SCH (09:37)
[2018-06-25] MEDS: cloNIDine HCL 0.1 MG TAB PO SCH ×2 (09:37→20:54)
[2018-06-25] MEDS: FUROSEMIDE 10 MG/ML 4 ML VIAL IV SCH (09:38)
[2018-06-25] MEDS: LOSARTAN 50 MG TAB PO SCH (09:38)
[2018-06-25] MEDS: METOPROLOL TARTRATE 50 MG TAB PO SCH ×3 (09:41→20:53)
[2018-06-25] MEDS: SENNOSIDES-DOCUSATE SODIUM 1 EACH TAB PO SCH ×2 (09:41→20:54)
[2018-06-25] MEDS: FLECAINIDE 50 MG TAB PO SCH ×2 (12:24→20:54)
--- NOTE | 2018-06-25 13:04 | P.PN ---
Subjective Progress Note Date: 06/25/18 This pleasant 63-year-old female who presented with symptoms of chest discomfort. She has a history of hypertension, hyperlipidemia, chronic tobacco use and chronic pain syndrome. She presented with sinus mechanism and subsequently went into atrial fibrillation for which she has converted back to sinus rhythm , patient did go back into atrial fibrillation through the night last night, and continues to be in atrial fibrillation this morning. 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 This morning she is complaining of some right sided flank pain, worsens with deep breathing. Overall stable. Heart rate this morning in the 80s, blood pressure 110/60. White blood cell count 10.2, hemoglobin 12.2, platelet count 592. Sodium 140, potassium 4.6, BUN 20, creatinine 0.5. Objective - Vital Signs Vital signs: Vital Signs Temp 98.2 F 06/25/18 12:00 Pulse 84 06/25/18 12:00 Resp 18 06/25/18 12:00 BP 111/64 06/25/18 12:00 Pulse Ox 93 L 06/25/18 12:00 Intake & Output 06/24/18 06/25/18 06/25/18 18:59 06:59 18:59 Intake Total 100 218 Output Total 400 1800 Balance -400 -1700 218 Weight 84.5 kg Intake: Intake, IV Titration 100 38 Amount Diltiazem 50 mg In Sodium 100 38 Chloride 0.9% 40 ml @ 10 MG/HR 10 mls/hr IV .Q5H [facility] Rx#:[id number] Oral 180 Output: Urine 400 1800 Other: Voiding Method Bedpan Bedpan Bedpan # Voids 1 5 2 # Bowel Movements 1 - Exam PHYSICAL EXAMINATION: HEENT: Head is atraumatic, normocephalic. Pupils equal, round. Neck is supple. There is no elevated jugular venous pressure. HEART EXAMINATION: Heart S1 and S2 irregularly irregular . No murmur or gallop heard. CHEST EXAMINATION: Lungs are clear to auscultation and precussion. No chest wall tenderness is noted on palpation or with deep breathing. ABDOMEN: Soft, nontender. Bowel sounds are heard. No organomegaly noted. EXTREMITIES: Status post bilateral AKA. NEUROLOGIC patient is awake, alert and oriented x3. - Labs CBC & Chem 7: 06/25/18 06:13 06/25/18 06:13 Labs: Abnormal Lab Results - Last 24 Hours (Table) 06/25/18 06/25/18 Range/Units 06:13 06:13 Plt Count 592 H (150-450) k/uL BUN 20 H (7-17) mg/dL Microbiology - Last 24 Hours (Table) 06/23/18 20:34 Blood Culture - Preliminary Blood No Growth after 24 hours 06/23/18 16:23 Urine Culture - Final Urine,Clean Catch Assessment and Plan Plan: Assessment: 1 paroxysmal atrial fibrillation, currently maintaining sinus rhythm #2 atypical chest pain #3 hypertension #4 hyperlipidemia #5 chronic tobacco use #6 bilateral [id number] amputation Plan Cardiology's perspective, patient has a normal LV function, we will attempt to add flecainide to her medication regime to convert her back to normal sinus rhythm. Continue the rest of her current medications. DNP note has been reviewed, I agree with a documented findings and plan of care. Patient was seen and examined.
[2018-06-25] MEDS: ASPIRIN 81 MG PO SCH (13:49)
[2018-06-25] MEDS: RIVAROXABAN 20 MG TAB PO SCH (17:02)
--- NOTE | 2018-06-25 17:20 | PN ---
PROGRESS NOTE DATE OF SERVICE: 06/25/2018 This 63-year-old woman who was admitted with chest pain also had CHF and UTI also. The patient is on broad-spectrum IV antibiotics. Cultures are negative so far. No chest pain or palpitation. No fever. The patient is still on IV Lasix at this time. PHYSICAL EXAMINATION: On exam, alert and oriented x3. Pulse is 70, blood pressure 121/80, respiration 18, temperature 98.7, pulse ox 95% on room air. HEENT: Conjunctivae normal. NECK: No jugular venous distention. CARDIOVASCULAR: S1 and S2 muffled. RESPIRATORY: Breath sounds diminished at the bases. A few scattered rhonchi. ABDOMEN: Soft. NERVOUS SYSTEM: No focal deficits. LABS: Platelets are 592. Other labs are noted. UA noted. Cultures are pending. ASSESSMENT: 1. Chest pain, possible musculoskeletal. Myocardial infarction ruled out. 2. Congestive heart failure acute exacerbation with acute on chronic diastolic dysfunction, ejection fraction 50% to 60%. 3. Mild aortic stenosis. 4. Acute urinary tract infection with culture negative so far, present on admission. 5. Increased WBC. 6. Abdominal pain. 7. Hypertension. 8. Hyperlipidemia. 9. Gastroesophageal reflux disease. 10.History of nephrolithiasis. 11.History of recurrent urinary tract infection. 12.History of section. 13.History of hysterectomy. 14.Paroxysmal atrial fibrillation. RECOMMENDATION AND DISCUSSION: Recommend to continue current medications. Continue with monitoring and symptomatic treatment. Otherwise, continue with antibiotics. Await cultures. Closely follow with Cardiology. Guarded prognosis. Further recommendations to follow. MMODL / IJN: [id number] /
[2018-06-25] MEDS: ATORVASTATIN 20 MG TAB PO SCH (20:53)
[2018-06-25] MEDS: FENOFIBRATE 160 MG TAB PO SCH (20:54)
[2018-06-25] MEDS: ALPRAZolam 0.5 MG TAB PO PRN (21:42)
[2018-06-26] MEDS: HYDROmorphone 1 MG/ML 1 ML SYRINGE IVP PRN ×6 (01:31→21:43)
[2018-06-26 06:46] LABS: Basophils # (A) 0.1 k/uL (0-0.2); Basophils % (A) 1 %; Eosinophils # (A) 0.3 k/uL (0-0.7); Eosinophils % (A) 2 %; HCT 42.6 % (34.0-46.0); HGB 13.3 gm/dL (11.4-16.0); Lymphocytes % (A) 46 %; MCH 27.7 pg (25.0-35.0); MCHC 31.3 g/dL (31.0-37.0); MCV 88.6 fL (80.0-100.0); Mean Platelet Volume 7.6; Monocytes # (A) 0.6 k/uL (0-1.0); Monocytes % (A) 5 %; Neutrophils # (A) 5.2 k/uL (1.3-7.7); Neutrophils % (A) 44 %; Platelet Count 635 k/uL (150-450); WBC 11.8 k/uL (3.8-10.6)
[2018-06-26 06:54] LABS: Lymphocytes # (A) 5.4 k/uL (1.0-4.8)
[2018-06-26] MEDS: ONDANSETRON 4 MG/2 ML VIAL IVP PRN ×2 (07:01→17:06)
[2018-06-26 07:02] LABS: Anion Gap 10 mmol/L; Blood Urea Nitrogen 25 mg/dL (7-17); Calcium 9.5 mg/dL (8.4-10.2); Carbon Dioxide 22 mmol/L (22-30); Chloride 109 mmol/L (98-107); Glucose 91 mg/dL (74-99); Sodium 141 mmol/L (137-145)
[2018-06-26] MEDS: SENNOSIDES-DOCUSATE SODIUM 1 EACH TAB PO SCH ×2 (08:09→21:15)
[2018-06-26] MEDS: FUROSEMIDE 10 MG/ML 4 ML VIAL IV SCH (08:13)
[2018-06-26] MEDS: IPRATROPIUM-ALBUTEROL 3 ML NEB INHALATION SCH ×3 (08:13→21:24)
[2018-06-26] MEDS: HYDROcodone/APAP 10-325MG 1 EACH TAB PO PRN (08:13)
[2018-06-26] MEDS: LOSARTAN 50 MG TAB PO SCH (08:14)
[2018-06-26] MEDS: cloNIDine HCL 0.1 MG TAB PO SCH ×2 (08:14→21:15)
[2018-06-26] MEDS: FLECAINIDE 50 MG TAB PO SCH ×3 (08:14→21:15)
[2018-06-26] MEDS: amLODIPine 10 MG TAB PO SCH (08:14)
[2018-06-26] MEDS: METOPROLOL TARTRATE 50 MG TAB PO SCH ×3 (08:14→21:15)
--- NOTE | 2018-06-26 12:02 | P.PN ---
Subjective Progress Note Date: 06/26/18 This pleasant 63-year-old female who presented with symptoms of chest discomfort. She has a history of hypertension, hyperlipidemia, chronic tobacco use and chronic pain syndrome. She presented with sinus mechanism and subsequently went into atrial fibrillation for which she has converted back to sinus rhythm yesterday. She does have a history of bilateral AKA due to defect. She continues to complain of discomfort, mostly in her right low back. Apparently she sustained an injury from a family member's dog jumping on her. She was initiated on flecainide 50 mg by mouth twice a day yesterday and continues to be in atrial fibrillation with recently well-controlled heart rates. She is anticoagulated on Xarelto. Objective - Vital Signs Vital signs: Vital Signs Temp 98.5 F 06/26/18 08:00 Pulse 82 06/26/18 10:15 Resp 20 06/26/18 08:00 BP 135/79 06/26/18 10:15 Pulse Ox 93 L 06/26/18 08:00 Intake & Output 06/25/18 06/26/18 06/26/18 18:59 06:59 18:59 Intake Total 458 620 200 Output Total 750 Balance 458 -130 200 Weight 88.5 kg Intake: IV 140 Invasive Line 3 140 Intake, IV Titration 38 Amount Diltiazem 50 mg In Sodium 38 Chloride 0.9% 40 ml @ 10 MG/HR 10 mls/hr IV .Q5H [facility] Rx#:[id number] Oral 420 480 200 Output: Urine 750 Other: Voiding Method Bedpan Bedpan Bedpan # Voids 2 1 2 # Bowel Movements 1 2 - Exam PHYSICAL EXAMINATION: HEENT: Head is atraumatic, normocephalic. Pupils equal, round. Neck is supple. There is no elevated jugular venous pressure. HEART EXAMINATION: Heart sounds irregularly irregular, S1 and S2 normal. No murmur or gallop heard. CHEST EXAMINATION: Lungs are clear to auscultation and precussion. No chest wall tenderness is noted on palpation or with deep breathing. ABDOMEN: Soft, nontender. Bowel sounds are heard. No organomegaly noted. EXTREMITIES: Status post bilateral AKA. NEUROLOGIC patient is awake, alert and oriented x3. . - Labs CBC & Chem 7: 06/26/18 06:01 06/26/18 06:01 Labs: Abnormal Lab Results - Last 24 Hours (Table) 06/26/18 06/26/18 Range/Units 06:01 06:01 WBC 11.8 H (3.8-10.6) k/uL Plt Count 635 H (150-450) k/uL Lymphocytes # 5.4 H (1.0-4.8) k/uL Chloride 109 H (98-107) mmol/L BUN 25 H (7-17) mg/dL Microbiology - Last 24 Hours (Table) 06/23/18 20:34 Blood Culture - Preliminary Blood No Growth after 48 hours Assessment and Plan Assessment: 1 paroxysmal atrial fibrillation, currently in atrial fibrillation #2 atypical chest pain #3 hypertension #4 hyperlipidemia #5 chronic tobacco use #6 bilateral [id number] amputation Plan: From cardiology perspective, we will increase flecainide to 100 mg by mouth twice a day. The patient will convert back to sinus rhythm. We'll continue to follow the patient and provide further recommendations accordingly. [employer] note has been reviewed, I agree with a documented findings and plan of care. Patient was seen and examined.
[2018-06-26] MEDS ORDERED: LOPERAMIDE 2 MG CAP PO PRN (15:46)
[2018-06-26] MEDS: IOPAMIDOL-300 CONTRAST 30 ML VIAL (ORAL USE) PO PRN ×2 (16:00→17:07)
[2018-06-26] MEDS: RIVAROXABAN 20 MG TAB PO SCH (17:07)
--- NOTE | 2018-06-26 18:20 | CT ---
EXAMINATION TYPE: CT abdomen pelvis wo con DATE OF EXAM: 06/26/2018 COMPARISON: 04/28/2018 HISTORY: right flank pain CT DLP: 747.7 mGycm Automated exposure control for dose reduction was used. TECHNIQUE: Helical acquisition of images was performed from the lung bases through the pelvis. FINDINGS: LUNG BASES: There are partially visualized pleural effusions and associated bibasilar compressive ate lectasis. There is also a partially visualized pericardial effusion. LIVER/GB: Hepatic parenchyma is diffusely hypoattenuated in comparison to that of the spleen, most co mmonly seen in hepatic steatosis. This finding limits evaluation for hepatic masses. No gross evidenc e of hepatic mass is seen. No intrahepatic biliary ductal dilatation. Gallbladder surgically absent. PANCREAS: No significant abnormality is seen. SPLEEN: No significant abnormality is seen. ADRENALS: No significant abnormality is seen. KIDNEYS: There is a lobulated contour of the left kidney most notably at the inferior pole as seen on the prior. There is a right renal cyst and nonobstructing 8 mm lower pole renal calculus. Right temi l atrophy and cortical thinning are noted. Known hydronephrosis of either kidney. Phlebolith is seen within the right gonadal vein anterior to the right mid ureter. FREE AIR: No free air is visualized URINARY BLADDER: No significant abnormality is seen. ADENOPATHY: No greater than 1 cm short axis lymph nodes are seen within the abdomen or pelvis. OSSEOUS STRUCTURES: Healed left femoral neck fracture and chronic deformity bilateral femoral acetab ular joints are noted as well as dextroscoliotic curvature of the lumbar spine and mild multilevel de generative changes. BOWEL: Sigmoid colon is redundant. IMPRESSION: REDEMONSTRATION OF A NONOBSTRUCTING RIGHT LOWER POLE RENAL CALCULUS, RENAL CORTICAL ATROPHY ON THE RI GHT FROM MEDICAL RENAL DISEASE, AND SCARRING IN THE LEFT LOWER POLE OF THE KIDNEY. NO HYDRONEPHROSIS OF EITHER KIDNEY. NO FINDINGS TO RELATE TO THE PATIENT'S RIGHT FLANK PAIN.
--- NOTE | 2018-06-26 19:48 | PN ---
PROGRESS NOTE I am covering for Dr. Nguyen. DATE OF SERVICE: 06/26/2018 This 63-year-old woman was admitted with chest pain also had CHF and UTI also. The patient also complaining of right-sided lower abdominal pain and back pain also. The patient is on diuretics and a combination of antibiotics also. Cardiology following the patient closely. The most recent chest x-ray which was done on June 24, which was reviewed by me showed still evidence of some fluid overload and some atelectasis also. PAST MEDICAL HISTORY: Reviewed. REVIEW OF SYSTEMS: Cardiovascular: As mentioned earlier. Respiratory: As mentioned earlier. GI mentioned earlier. : As mentioned earlier. NERVOUS SYSTEM: No numbness or weakness. CURRENT MEDICATIONS: Reviewed and include: 1. [place] 10 mg q.6h p.r.n. 2. DuoNeb q.i.d. and p.r.n. 3. Xanax 0.5 q.h.s. p.r.n. 4. Norvasc 10 mg p.o. daily. 5. Lipitor 20 mg p.o. daily. 6. Rocephin 1 g IV daily. 7. Catapres 0.1 p.o. b.i.d. 8. Lofibra 160 mg p.o. q.h.s. 9. [place] 100 mg p.o. b.i.d. 10.Lasix 40 mg IV daily. 11.Dilaudid 1 mg IV q.4h p.r.n. 12.Imodium 2 mg q.i.d. p.r.n. 13.Cozaar 100 mg p.o. daily. 14.Lopressor 250 mg p.o. t.i.d. 15.Nitrostat 0.4 mg p.r.n. 16.Zofran 4 mg IV q.6h p.r.n. 17.Compazine 10 mg t.i.d. p.r.n. 18.Xarelto 20 mg supper. 19.Senokot-S 1 p.o. b.i.d. PHYSICAL EXAM: Patient is alert, oriented x3. Pulse 80. Blood pressure 118/80, respiration 18, temperature 98 degrees, pulse ox 97% on room air. HEENT: Conjunctivae normal. Oral mucosa moist. Neck is no jugular venous distention. No carotid bruit. No lymph node enlargement. Cardiovascular: S1, S2. No S3, no S4. RESPIRATORY: Breath sounds diminished in the bases. Bilateral scattered rhonchi and crackles. Expiratory wheezing also present. ABDOMEN: Soft. Mild diffuse tenderness in the right lower part of the abdomen. No mass palpable. Legs: No edema. No swelling. NERVOUS SYSTEM: Higher functions as mentioned earlier. Moves all 4 limbs. No focal motor or sensory deficits. Lymphatics: No lymph nodes palpable in the neck, axillae or groin. SKIN: No ulcer, rash or bleeding. LABS: WBC 11.8, hemoglobin 13.3, platelets are 635. Sodium 141, potassium 5. ASSESSMENT: 1. Chest pain possibly musculoskeletal, myocardial infarction ruled out. 2. Congestive heart failure acute exacerbation with acute on chronic diastolic dysfunction, ejection fraction 50-60 percent. 3. Mild aortic stenosis. 4. Acute urinary tract infection with culture negative so far. Present on admission. 5. Increased WBC. 6. Abdominal pain. 7. Hypertension. 8. Hyperlipidemia. 9. Gastroesophageal reflux disease. 10.History of nephrolithiasis. 11.History of recurrent urinary tract infection. 12.History of section. 13.History of hysterectomy. 14.Paroxysmal atrial fibrillation. RECOMMENDATIONS AND DISCUSSION: In this 63-year-old woman who presented with multiple medical issues, at this time, I recommend to continue current medications, continue with monitoring, symptomatic treatment. Otherwise, at this time, I recommend continue the current medications, continue with antibiotics. Cultures are negative so far. I would recommend a CT scan of the abdomen and pelvis also to complete the workup. Otherwise, symptomatic treatment will be pursued and as mentioned earlier urine cultures are pending at this time. Dr. Nguyen will follow. Continue the rest of the medications. Follow with Cardiology also. Further recommendations to follow. MMODL / IJN: [id number] /
[2018-06-26] MEDS: FENOFIBRATE 160 MG TAB PO SCH (21:15)
[2018-06-26] MEDS: ATORVASTATIN 20 MG TAB PO SCH (21:15)
[2018-06-26] MEDS: ALPRAZolam 0.5 MG TAB PO PRN (21:43)
[2018-06-27] MEDS: ONDANSETRON 4 MG/2 ML VIAL IVP PRN ×3 (03:04→21:16)
[2018-06-27] MEDS: HYDROmorphone 1 MG/ML 1 ML SYRINGE IVP PRN ×6 (03:04→23:10)
[2018-06-27 06:31] LABS: Basophils # (A) 0.1 k/uL (0-0.2); Basophils % (A) 1 %; Eosinophils # (A) 0.3 k/uL (0-0.7); Eosinophils % (A) 2 %; HCT 38.1 % (34.0-46.0); HGB 12.8 gm/dL (11.4-16.0); Lymphocytes # (A) 3.9 k/uL (1.0-4.8); Lymphocytes % (A) 35 %; MCH 28.9 pg (25.0-35.0); MCHC 33.6 g/dL (31.0-37.0); MCV 85.9 fL (80.0-100.0); Mean Platelet Volume 7.7; Monocytes # (A) 0.6 k/uL (0-1.0); Monocytes % (A) 5 %; Neutrophils # (A) 6.2 k/uL (1.3-7.7); Neutrophils % (A) 55 %; Platelet Count 606 k/uL (150-450); RBC 4.44 m/uL (3.80-5.40); RDW 13.9 % (11.5-15.5); WBC 11.2 k/uL (3.8-10.6)
[2018-06-27 06:45] LABS: Anion Gap 7 mmol/L; Blood Urea Nitrogen 32 mg/dL (7-17); Calcium 9.4 mg/dL (8.4-10.2); Carbon Dioxide 23 mmol/L (22-30); Chloride 108 mmol/L (98-107); Glucose 100 mg/dL (74-99); Potassium 4.8 mmol/L (3.5-5.1); Sodium 138 mmol/L (137-145)
--- NOTE | 2018-06-27 08:11 | P.PN ---
Subjective Principal diagnosis: Chest pain with atrial fibrillation. This is a 63-year-old white male essentially admitted for chest pain. Myocardial infarction was ruled out but she had paroxysmal atrial fibrillation. The patient has had cardiology consultation has now been placed on flecainide. Patient still states her right-sided chest wall pain. No Voiding difficulties. Objective - Vital Signs Vital signs: Vital Signs Temp 98.0 F 06/27/18 03:07 Pulse 67 06/27/18 03:07 Resp 18 06/27/18 03:07 BP 162/84 06/27/18 03:07 Pulse Ox 97 06/27/18 03:07 Intake & Output 06/26/18 06/27/18 06/27/18 18:59 06:59 18:59 Intake Total 300 150 240 Output Total 700 Balance -400 150 240 Weight 88.5 kg Intake: Oral 300 150 240 Output: Urine 300 Urine/Stool Mix 400 Other: Voiding Method Bedpan Bedpan # Voids 2 # Bowel Movements 2 - Constitutional General appearance: Present: obese - EENT Eyes: Absent: abnormal pupil - Neck Neck: Absent: lymphadenopathy - Respiratory Respiratory: bilateral: CTA - Cardiovascular Rhythm: regular Heart sounds: normal: S1, S2 Abnormal Heart Sounds: Absent: S3 Gallop - Gastrointestinal General gastrointestinal: Present: soft. Absent: umbilical hernia - Labs CBC & Chem 7: 06/27/18 06:01 06/27/18 06:01 Labs: Abnormal Lab Results - Last 24 Hours (Table) 06/27/18 06/27/18 Range/Units 06:01 06:01 WBC 11.2 H (3.8-10.6) k/uL Plt Count 606 H (150-450) k/uL Chloride 108 H (98-107) mmol/L BUN 32 H (7-17) mg/dL Glucose 100 H (74-99) mg/dL Microbiology - Last 24 Hours (Table) 06/23/18 20:34 Blood Culture - Preliminary Blood No Growth after 72 hours Assessment and Plan (1) Chest pain Current Visit: Yes Status: Acute Code(s): R07.9 - CHEST PAIN, UNSPECIFIED SNOMED Code(s): 86294574 (2) Abdominal pain Current Visit: No Status: Acute Code(s): R10.9 - UNSPECIFIED ABDOMINAL PAIN SNOMED Code(s): 32715313 (3) Ischemic nephropathy with renal sclerosis Current Visit: No Status: Acute Code(s): N26.9 - RENAL SCLEROSIS, UNSPECIFIED SNOMED Code(s): 656126104 (4) Amputated left leg Current Visit: No Status: Chronic Code(s): Z89.612 - ACQUIRED ABSENCE OF LEFT LEG ABOVE KNEE SNOMED Code(s): 911128898 (5) Amputated right leg Current Visit: No Status: Chronic Code(s): Z89.611 - ACQUIRED ABSENCE OF RIGHT LEG ABOVE KNEE SNOMED Code(s): 413623677 Plan: Continue current rate control as per cardiology. Chronic pain elements. I would like to wean off of Dilaudid soon to place her back on her own pain home regimen. She usually takes MS Contin with [place]. Anticipate discharge when cleared by cardiology. See orders otherwise. Time with Patient: Less than 30
[2018-06-27] MEDS: IPRATROPIUM-ALBUTEROL 3 ML NEB INHALATION SCH ×3 (08:15→19:04)
[2018-06-27] MEDS: amLODIPine 10 MG TAB PO SCH (08:28)
[2018-06-27] MEDS: FLECAINIDE 50 MG TAB PO SCH ×2 (08:28→21:17)
[2018-06-27] MEDS: LOSARTAN 50 MG TAB PO SCH (08:28)
[2018-06-27] MEDS: cloNIDine HCL 0.1 MG TAB PO SCH ×2 (08:28→21:18)
[2018-06-27] MEDS: METOPROLOL TARTRATE 50 MG TAB PO SCH ×3 (08:28→21:17)
[2018-06-27] MEDS: SENNOSIDES-DOCUSATE SODIUM 1 EACH TAB PO SCH ×2 (08:29→21:38)
[2018-06-27] MEDS: FUROSEMIDE 10 MG/ML 4 ML VIAL IV SCH (08:29)
--- NOTE | 2018-06-27 09:50 | P.PN ---
Subjective Progress Note Date: 06/27/18 This pleasant 63-year-old female who presented with symptoms of chest discomfort. She has a history of hypertension, hyperlipidemia, chronic tobacco use and chronic pain syndrome. She presented with sinus mechanism and subsequently went into atrial fibrillation for which she has converted back to sinus rhythm , patient did go back into atrial fibrillation through the night last night, and continues to be in atrial fibrillation this morning. 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 This morning she is complaining of some right sided flank pain, worsens with deep breathing. Overall stable. Heart rate this morning in the 80s, blood pressure 110/60. White blood cell count 10.2, hemoglobin 12.2, platelet count 592. Sodium 140, potassium 4.6, BUN 20, creatinine 0.5. 06/27/2018 Patient seen and examined this morning, complained of some mild shortness of breath earlier. At the time of my examination she is stable. She is currently in normal sinus rhythm. Blood pressure 130/80, heart rate in the 60s to 70s, 97 % on room air. White blood cell count 11.2, hemoglobin 12.8, platelet count 606. Sodium 138, potassium 4.8, BUN 32, creatinine 0.6. We will repeat a chest x-ray this morning. Her initial chest x-ray did show some small bilateral pleural effusions. Objective - Vital Signs Vital signs: Vital Signs Temp 98.0 F 06/27/18 03:07 Pulse 67 06/27/18 03:07 Resp 18 06/27/18 03:07 BP 162/84 06/27/18 03:07 Pulse Ox 97 06/27/18 03:07 Intake & Output 06/26/18 06/27/18 06/27/18 18:59 06:59 18:59 Intake Total 300 150 240 Output Total 700 Balance -400 150 240 Weight 88.5 kg Intake: Oral 300 150 240 Output: Urine 300 Urine/Stool Mix 400 Other: Voiding Method Bedpan Bedpan # Voids 2 # Bowel Movements 2 - Exam PHYSICAL EXAMINATION: HEENT: Head is atraumatic, normocephalic. Pupils equal, round. Neck is supple. There is no elevated jugular venous pressure. HEART EXAMINATION: Heart S1 and S2 normal . No murmur or gallop heard. CHEST EXAMINATION: Lungs are clear to auscultation with diminished air entry to bilateral bases ABDOMEN: Soft, nontender. Bowel sounds are heard. No organomegaly noted. EXTREMITIES: Status post bilateral AKA. NEUROLOGIC patient is awake, alert and oriented x3. - Labs CBC & Chem 7: 06/27/18 06:01 06/27/18 06:01 Labs: Abnormal Lab Results - Last 24 Hours (Table) 06/27/18 06/27/18 Range/Units 06:01 06:01 WBC 11.2 H (3.8-10.6) k/uL Plt Count 606 H (150-450) k/uL Chloride 108 H (98-107) mmol/L BUN 32 H (7-17) mg/dL Glucose 100 H (74-99) mg/dL Microbiology - Last 24 Hours (Table) 06/23/18 20:34 Blood Culture - Preliminary Blood No Growth after 72 hours Assessment and Plan Plan: Assessment: 1 paroxysmal atrial fibrillation, currently maintaining sinus rhythm #2 atypical chest pain #3 hypertension #4 hyperlipidemia #5 chronic tobacco use #6 bilateral [id number] amputation Plan Cardiology's perspective, patient has a normal LV function, she continues to be in normal sinus rhythm at this time. We will repeat a chest x-ray's morning. DNP note has been reviewed, I agree with a documented findings and plan of care. Patient was seen and examined.
[2018-06-27] MEDS: RIVAROXABAN 20 MG TAB PO SCH (17:09)
[2018-06-27] MEDS: FENOFIBRATE 160 MG TAB PO SCH (21:18)
[2018-06-27] MEDS: ATORVASTATIN 20 MG TAB PO SCH (21:18)
[2018-06-27] MEDS: ALPRAZolam 0.5 MG TAB PO PRN (23:11)
[2018-06-28] MEDS: HYDROmorphone 1 MG/ML 1 ML SYRINGE IVP PRN ×2 (03:50→08:23)
[2018-06-28 06:08] LABS: Basophils # (A) 0.1 k/uL (0-0.2); Basophils % (A) 1 %; Eosinophils # (A) 0.2 k/uL (0-0.7); Eosinophils % (A) 2 %; HCT 40.8 % (34.0-46.0); HGB 12.8 gm/dL (11.4-16.0); Lymphocytes # (A) 4.4 k/uL (1.0-4.8); Lymphocytes % (A) 42 %; MCH 27.8 pg (25.0-35.0); MCHC 31.3 g/dL (31.0-37.0); MCV 88.8 fL (80.0-100.0); Mean Platelet Volume 8.5; Monocytes # (A) 0.6 k/uL (0-1.0); Monocytes % (A) 5 %; Neutrophils % (A) 47 %; Platelet Count 680 k/uL (150-450); RBC 4.59 m/uL (3.80-5.40); RDW 14.3 % (11.5-15.5); WBC 10.7 k/uL (3.8-10.6)
[2018-06-28 06:20] LABS: Anion Gap 9 mmol/L; Blood Urea Nitrogen 35 mg/dL (7-17); Calcium 9.7 mg/dL (8.4-10.2); Carbon Dioxide 23 mmol/L (22-30); Chloride 108 mmol/L (98-107); Glucose 98 mg/dL (74-99); Potassium 4.8 mmol/L (3.5-5.1); Sodium 140 mmol/L (137-145)
[2018-06-28] MEDS: IPRATROPIUM-ALBUTEROL 3 ML NEB INHALATION SCH ×3 (08:02→19:46)
[2018-06-28] MEDS: FUROSEMIDE 10 MG/ML 4 ML VIAL IV SCH (08:24)
[2018-06-28] MEDS: amLODIPine 10 MG TAB PO SCH (08:24)
[2018-06-28] MEDS: ONDANSETRON 4 MG/2 ML VIAL IVP PRN (08:24)
[2018-06-28] MEDS: LOSARTAN 50 MG TAB PO SCH (08:24)
[2018-06-28] MEDS: METOPROLOL TARTRATE 50 MG TAB PO SCH ×2 (08:24→16:00)
[2018-06-28] MEDS: SENNOSIDES-DOCUSATE SODIUM 1 EACH TAB PO SCH (08:25)
[2018-06-28] MEDS: FLECAINIDE 50 MG TAB PO SCH (08:25)
[2018-06-28] MEDS: cloNIDine HCL 0.1 MG TAB PO SCH (08:27)
[2018-06-28 08:51] VITALS: RESP 18
--- NOTE | 2018-06-28 13:27 | P.DS ---
Providers Date of admission: 06/26/18 19:06 Attending physician: Dick Nguyen Consults: 06/21/18 23:45 Consult Physician Urgent Consulting Provider: Laurel Sarmiento Consult Reason/Comments: cp Do you want consulting provider notified?: Yes Primary care physician: Dick Nguyen - Discharge Diagnosis(es) (1) Chest pain Current Visit: Yes Status: Acute (2) Abdominal pain Current Visit: No Status: Acute (3) Ischemic nephropathy with renal sclerosis Current Visit: No Status: Acute (4) Amputated left leg Current Visit: No Status: Chronic (5) Amputated right leg Current Visit: No Status: Chronic Hospital Course: Summary on a 63-year-old white female essentially admitted for chest pressure. She ended up having paroxysmal atrial fibrillation was appropriately treated. She is now on flecainide and stable. Heart rate is regular controlled. She still hasn't returned chest pain perspective certainly related to her overall chronic pain syndrome with opiate dependence. She will be discharged in stable condition to follow-up with me in about 5-7 days Patient Condition at Discharge: Undetermined Plan - Discharge Summary Discharge Rx Participant: No New Discharge Prescriptions: New Flecainide [Tambocor] 100 mg PO Q12HR #60 tab Nitroglycerin Sl Tabs [Nitrostat] 0.4 mg SUBLINGUAL Q5M PRN #50 tab PRN Reason: Chest Pain Rivaroxaban [Xarelto] 20 mg PO W/SUPPER #30 tab Continue Metoprolol Tartrate [Lopressor] 50 mg PO BID Losartan Potassium [Cozaar] 100 mg PO DAILY Fenofibrate 160 mg PO HS amLODIPine [Norvasc] 10 mg PO DAILY Aspirin EC [Ecotrin] 325 mg PO QAM Prochlorperazine [Compazine] 10 mg PO TID PRN PRN Reason: Nausea HYDROcodone/APAP 10-325MG [[place] 10-325] 1 tab PO Q6H PRN #120 tab PRN Reason: MODERATE Pain Atorvastatin Calcium [Lipitor] 20 mg PO HS Sennosides-Docusate Sodium [Senokot-S] 1 tab PO BID Morphine Sulfate ER [Ms Contin] 30 mg PO Q12HR ALPRAZolam [Xanax] 0.5 mg PO HS PRN PRN Reason: Insomnia cloNIDine HCL [Catapres] 0.1 mg PO BID Discontinued Amoxic-Pot Clav 875-125Mg [Augmentin 875-125] 1 tab PO Q12HR Discharge Medication List Fenofibrate 160 mg PO HS 11/15/15 [History] Losartan Potassium [Cozaar] 100 mg PO DAILY 11/15/15 [History] Metoprolol Tartrate [Lopressor] 50 mg PO BID 11/15/15 [History] amLODIPine [Norvasc] 10 mg PO DAILY 03/08/17 [History] Aspirin EC [Ecotrin] 325 mg PO QAM 10/04/17 [History] Prochlorperazine [Compazine] 10 mg PO TID PRN 04/28/18 [History] HYDROcodone/APAP 10-325MG [[place] 10-325] 1 tab PO Q6H PRN #120 tab 05/05/18 [Rx] ALPRAZolam [Xanax] 0.5 mg PO HS PRN 06/21/18 [History] Atorvastatin Calcium [Lipitor] 20 mg PO HS 06/21/18 [History] Morphine Sulfate ER [Ms Contin] 30 mg PO Q12HR 06/21/18 [History] Sennosides-Docusate Sodium [Senokot-S] 1 tab PO BID 06/21/18 [History] cloNIDine HCL [Catapres] 0.1 mg PO BID 06/21/18 [History] Flecainide [Tambocor] 100 mg PO Q12HR #60 tab 06/28/18 [Rx] Nitroglycerin Sl Tabs [Nitrostat] 0.4 mg SUBLINGUAL Q5M PRN #50 tab 06/28/18 [Rx ] Rivaroxaban [Xarelto] 20 mg PO W/SUPPER #30 tab 06/28/18 [Rx] Follow up Appointment(s)/Referral(s): Brad Banda MD [STAFF PHYSICIAN] - 07/19/18 11:00 am (Library Attendant. Office aware of need for samples of xarelto if not covered by insurance.) Dick Nguyen MD [Primary Care Provider] - 07/04/18 10:20 am (Wednesday) [facility], [NON-STAFF] - Patient Instructions/Handouts: A-fib (Atrial Fibrillation) (DC), Heart Healthy Diet (DC), Safe Use of Anticoagulants (DC) Activity/Diet/Wound Care/Special Instructions: Dr. Tyler Owusu MD urologist from [facility]- please send results of urine culture when discharged. Phone number [phone]. Xarelto script filled at [facility] - prior authorization required - script filled using free 30 day coupon - follow up with [facility] regarding prior authorization/insurance coverage for this medication at your follow up appointment. Discharge Disposition: HOME SELF-CARE
--- NOTE | 2018-06-28 13:48 | P.PN ---
Subjective Progress Note Date: 06/28/18 This pleasant 63-year-old female who presented with symptoms of chest discomfort. She has a history of hypertension, hyperlipidemia, chronic tobacco use and chronic pain syndrome. She presented with sinus mechanism and subsequently went into atrial fibrillation for which she has converted back to sinus rhythm , patient did go back into atrial fibrillation through the night last night, and continues to be in atrial fibrillation this morning. 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 This morning she is complaining of some right sided flank pain, worsens with deep breathing. Overall stable. Heart rate this morning in the 80s, blood pressure 110/60. White blood cell count 10.2, hemoglobin 12.2, platelet count 592. Sodium 140, potassium 4.6, BUN 20, creatinine 0.5. 06/27/2018 Patient seen and examined this morning, complained of some mild shortness of breath earlier. At the time of my examination she is stable. She is currently in normal sinus rhythm. Blood pressure 130/80, heart rate in the 60s to 70s, 97 % on room air. White blood cell count 11.2, hemoglobin 12.8, platelet count 606. Sodium 138, potassium 4.8, BUN 32, creatinine 0.6. We will repeat a chest x-ray this morning. Her initial chest x-ray did show some small bilateral pleural effusions. 06/28/2018 Patient was seen and examined this morning, overall breathing is improved. Remaining in normal sinus rhythm. Blood pressure 122/70 with a heart rate in the 60s, 97% on room air. White blood cell count 10.7, hemoglobin 12.8, platelet count 680. Sodium 140, potassium 4.8, BUN 35, creatinine 0.7. Objective - Vital Signs Vital signs: Vital Signs Temp 98.1 F 06/28/18 08:10 Pulse 61 06/28/18 08:10 Resp 18 06/28/18 08:10 BP 123/78 06/28/18 08:10 Pulse Ox 97 06/28/18 08:10 Intake & Output 06/27/18 06/28/18 06/28/18 18:59 06:59 18:59 Intake Total 462 268 Output Total 700 Balance -238 268 Weight 88.5 kg Intake: Oral 462 268 Output: Urine 700 Other: Voiding Method Bedpan # Voids 1 4 # Bowel Movements 1 4 - Exam PHYSICAL EXAMINATION: HEENT: Head is atraumatic, normocephalic. Pupils equal, round. Neck is supple. There is no elevated jugular venous pressure. HEART EXAMINATION: Heart S1 and S2 normal . No murmur or gallop heard. CHEST EXAMINATION: Lungs are clear to auscultation with diminished air entry to bilateral bases ABDOMEN: Soft, nontender. Bowel sounds are heard. No organomegaly noted. EXTREMITIES: Status post bilateral AKA. NEUROLOGIC patient is awake, alert and oriented x3. - Labs CBC & Chem 7: 06/28/18 05:38 06/28/18 05:38 Labs: Abnormal Lab Results - Last 24 Hours (Table) 06/28/18 06/28/18 Range/Units 05:38 05:38 WBC 10.7 H (3.8-10.6) k/uL Plt Count 680 H (150-450) k/uL Chloride 108 H (98-107) mmol/L BUN 35 H (7-17) mg/dL Microbiology - Last 24 Hours (Table) 06/23/18 20:34 Blood Culture - Preliminary Blood No Growth after 96 hours Assessment and Plan Plan: Assessment: 1 paroxysmal atrial fibrillation, currently maintaining sinus rhythm #2 atypical chest pain #3 hypertension #4 hyperlipidemia #5 chronic tobacco use #6 bilateral [id number] amputation Plan Cardiology's perspective, patient has a normal LV function, she continues to be in normal sinus rhythm at this time. Anticipating discharge home soon. We will make a follow-up appointment in the office post discharge. DNP note has been reviewed, I agree with a documented findings and plan of care. Patient was seen and examined.
[2018-06-28 14:16] VITALS: BP 109/74; PULSE 52; TEMP 98.3
[2018-06-28] MEDS: HYDROcodone/APAP 10-325MG 1 EACH TAB PO PRN (15:59)
[2018-06-28] MEDS: RIVAROXABAN 20 MG TAB PO SCH (16:00)
[2018-06-28 16:32] VITALS: BMI 30.5
[2018-06-29] MEDS ORDERED: FUROSEMIDE 40 MG TAB PO SCH (09:00)
== END 2018-06-28 22:24 | disposition home health service (06) | DRG 292 ==
LOC: EC 22:48 → 1SOBS 23:45 → 3SCARD 06-22 18:15 → OBSVTOIN 06-26 19:06
PROVIDERS: ADMIT Family Medicine; ATTEND Family Medicine
DX: I11.0 Hypertensive heart disease with heart failure (principal); N39.0 Urinary tract infection, site not specified; J98.11 Atelectasis; E78.5 Hyperlipidemia, unspecified; G89.4 Chronic pain syndrome; I35.0 Nonrheumatic aortic (valve) stenosis; I48.0 Paroxysmal atrial fibrillation; I50.33 Acute on chronic diastolic (congestive) heart failure; K21.9 Gastro-esophageal reflux disease without esophagitis; N26.9 Renal sclerosis, unspecified; N05.9 Unspecified nephritic syndrome with unspecified morphologic changes; M54.9 Dorsalgia, unspecified; R10.9 Unspecified abdominal pain; D72.829 Elevated white blood cell count, unspecified; R07.89 Other chest pain; Z79.899 Other long term (current) drug therapy; Z79.82 Long term (current) use of aspirin; Z79.891 Long term (current) use of opiate analgesic; Z88.1 Allergy status to other antibiotic agents; Z90.710 Acquired absence of both cervix and uterus; Z89.612 Acquired absence of left leg above knee; Z89.611 Acquired absence of right leg above knee; Z87.442 Personal history of urinary calculi; Z87.440 Personal history of urinary (tract) infections; Z90.49 Acquired absence of other specified parts of digestive tract; Z87.891 Personal history of nicotine dependence; Z90.722 Acquired absence of ovaries, bilateral; Z80.1 Family history of malignant neoplasm of trachea, bronchus and lung; Z82.49 Family history of ischemic heart disease and other diseases of the circulatory system
CPT/HCPCS: 36415; 71045; 71046; 71275; 73502; 74018; 74176; 80048; 80053; 80061; 81001; 82550; 82553; 83690; 83735; 83880; 84484; 85025; 85049; 85379; 85610; 85730; 87040; 87086; 87324; 93005; 93306; 94640; 94760; 96365; 96366; 96375; 96376; 99291

== ENCOUNTER 2018-10-14 09:47 | Emergency (ER) | payer OTHER ==
[2018-10-14 09:56] VITALS: RESP 18
[2018-10-14] MEDS ORDERED: HYDROcodone/APAP 5-325MG 1 EACH TAB PO STA (10:08)
--- NOTE | 2018-10-14 10:09 | ED ---
General Adult HPI - General Chief complaint: Recheck/Abnormal Lab/Rx Stated complaint: Abnormal Labs Time Seen by Provider: 10/14/18 09:50 Source: patient, RN notes reviewed Mode of arrival: wheelchair Limitations: physical limitation - History of Present Illness Initial comments: This is a 63-year-old female who presents emergency department stating that she was told to come in because one of her lab data is soft. Patient states she thinks it might be her Coumadin level but she's not sure. Patient states she was a little nauseated this morning but she would not have otherwise come to the ER she had a phone call. Patient states she's also recently been treated for urinary tract infection. Patient denies any chest pain difficulty breathing or shortness of breath. Patient denies any fever chills. Patient denies any vomiting or diarrhea. - Related Data Home Medications Medication Instructions Recorded Confirmed Fenofibrate 160 mg PO HS 11/15/15 10/14/18 Losartan Potassium [Cozaar] 100 mg PO DAILY 11/15/15 10/14/18 Metoprolol Tartrate [Lopressor] 50 mg PO BID 11/15/15 10/14/18 amLODIPine [Norvasc] 10 mg PO DAILY 03/08/17 10/14/18 Prochlorperazine [Compazine] 10 mg PO TID PRN 04/28/18 10/14/18 ALPRAZolam [Xanax] 0.5 mg PO HS PRN 06/21/18 10/14/18 Atorvastatin Calcium [Lipitor] 20 mg PO HS 06/21/18 10/14/18 Morphine Sulfate ER [Ms Contin] 30 mg PO Q12HR 06/21/18 10/14/18 Sennosides-Docusate Sodium 1 tab PO BID 06/21/18 10/14/18 [Senokot-S] cloNIDine HCL [Catapres] 0.1 mg PO BID 06/21/18 10/14/18 Flecainide Acetate 100 mg PO Q12HR 10/14/18 10/14/18 Omeprazole 20 mg PO DAILY 10/14/18 10/14/18 Ondansetron HCl [Zofran] 8 mg PO TID 10/14/18 10/14/18 Simethicone [Gas-X] 250 mg PO DAILY 10/14/18 10/14/18 Warfarin [Coumadin] 5 mg PO DAILY 10/14/18 10/14/18 Previous Rx's Medication Instructions Recorded HYDROcodone/APAP 10-325MG [[place] 1 tab PO Q6H PRN #120 tab 05/05/18 10-325] Nitroglycerin Sl Tabs [Nitrostat] 0.4 mg SUBLINGUAL Q5M PRN #50 tab 06/28/18 Allergies Allergy/AdvReac Type Severity Reaction Status Date / Time sulfamethoxazole Allergy Itching Verified 10/14/18 10:46 [From Septra] trimethoprim [From Septra] Allergy Itching Verified 10/14/18 10:46 levofloxacin [From Levaquin] AdvReac Muscle Pain Verified 10/14/18 10:46 Review of Systems ROS Statement: Those systems with pertinent positive or pertinent negative responses have been documented in the HPI. ROS Other: All systems not noted in ROS Statement are negative. 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 occasional vertigo, and R arm fracture with surgery. 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 lithotripsy on left side Past Anesthesia/Blood Transfusion Reactions: No Reported Reaction Additional Past Anesthesia/Blood Transfusion Reaction / Comment(s): Pt received blood in 1978-no reaction reported. Past Psychological History: No Psychological Hx Reported Smoking Status: Current every day smoker Past Alcohol Use History: None Reported Past Drug Use History: None Reported - Past Family History Father Family Medical History: Cancer, Myocardial Infarction (GA) Additional Family Medical History / Comment(s): Father had lung cancer-went into remission. He of a massive GA in his 60's Mother Family Medical History: Cancer Additional Family Medical History / Comment(s): Mother of lung cancer at age 54 yrs. General Exam - General Exam Comments Initial Comments: GENERAL: Patient is well-developed and well-nourished. Patient is nontoxic and well- hydrated and is in no acute distress. ENT: Neck is soft and supple. No significant lymphadenopathy is noted. Oropharynx is clear. Moist mucous membranes. Neck has full range of motion without eliciting any pain. EYES: The sclera were anicteric and conjunctiva were pink and moist. Extraocular movements were intact and pupils were equal round and reactive to light. Eyelids were unremarkable. PULMONARY: Unlabored respirations. Good breath sounds bilaterally. No audible rales rhonchi or wheezing was noted. CARDIOVASCULAR: There is a regular rate and rhythm without any murmurs gallops or rubs. ABDOMEN: Soft and nontender with normal bowel sounds. No palpable organomegaly was noted. There is no palpable pulsatile mass. SKIN: Skin is clear with no lesions or rashes and otherwise unremarkable. NEUROLOGIC: Patient is alert and oriented x3. Cranial nerves II through XII are grossly intact. Motor and sensory are also intact. Normal speech, volume and content. Symmetrical smile. MUSCULOSKELETAL: Patient has bilateral AKA's secondary to a defect according to the patient. LYMPHATICS: No significant lymphadenopathy is noted PSYCHIATRIC: Normal psychiatric evaluation. Limitations: physical limitation Course Vital Signs 10/14/18 10/14/18 10/14/18 09:52 12:04 12:46 Temperature 100.1 F H 98.4 F Pulse Rate 65 58 L 58 L Respiratory 18 18 18 Rate Blood Pressure 203/85 127/69 139/74 O2 Sat by Pulse 98 96 96 Oximetry Medical Decision Making - Medical Decision Making Patient's INR was elevated psychiatric the patient vitamin K 10 mg by mouth. I spoke with Dr. Nguyen wanted the patient to follow-up with her on Wednesday. Patient states she has antibiotics at home to take today for her urinary tract infection. Patient received 2 g of Rocephin in the emergency department. - Lab Data Result diagrams: 10/14/18 10:29 10/14/18 10:29 Lab Results 10/14/18 10/14/18 10/14/18 Range/Units 10:29 10:29 10:29 WBC 9.2 (3.8-10.6) k/uL RBC 5.15 (3.80-5.40) m/uL Hgb 14.0 (11.4-16.0) gm/dL Hct 43.7 (34.0-46.0) % MCV 84.8 (80.0-100.0) fL MCH 27.2 (25.0-35.0) pg MCHC 32.1 (31.0-37.0) g/dL RDW 16.2 H (11.5-15.5) % Plt Count 423 (150-450) k/uL Neutrophils % 60 % Lymphocytes % 31 % Monocytes % 5 % Eosinophils % 2 % Basophils % 1 % Neutrophils # 5.5 (1.3-7.7) k/uL Lymphocytes # 2.8 (1.0-4.8) k/uL Monocytes # 0.5 (0-1.0) k/uL Eosinophils # 0.2 (0-0.7) k/uL Basophils # 0.1 (0-0.2) k/uL Anisocytosis Slight PT >130.0 H (9.0-12.0) sec INR >10.0 H* (<1.2) APTT 84.7 H (22.0-30.0) sec Sodium 140 (137-145) mmol/L Potassium 4.9 (3.5-5.1) mmol/L Chloride 107 (98-107) mmol/L Carbon Dioxide 26 (22-30) mmol/L Anion Gap 7 mmol/L BUN 22 H (7-17) mg/dL Creatinine 0.63 (0.52-1.04) mg/dL Est GFR (CKD-EPI)AfAm >90 (>60 ml/min/1.73 sqM) Est GFR (CKD-EPI)NonAf >90 (>60 ml/min/1.73 sqM) Glucose 136 H (74-99) mg/dL Calcium 9.0 (8.4-10.2) mg/dL Magnesium 1.4 L (1.6-2.3) mg/dL Total Bilirubin 0.6 (0.2-1.3) mg/dL AST 26 (14-36) U/L ALT 19 (9-52) U/L Alkaline Phosphatase 41 (38-126) U/L Total Protein 6.6 (6.3-8.2) g/dL Albumin 3.7 (3.5-5.0) g/dL Urine Color Urine Appearance (Clear) Urine pH (5.0-8.0) Ur Specific [place] (1.001-1.035) Urine Protein (Negative) Urine Glucose (UA) (Negative) Urine Ketones (Negative) Urine Blood (Negative) Urine Nitrite (Negative) Urine Bilirubin (Negative) Urine Urobilinogen (<2.0) mg/dL Ur Leukocyte Esterase (Negative) Urine RBC (0-5) /hpf Urine WBC (0-5) /hpf Ur Squamous Epith Cells (0-4) /hpf Amorphous Sediment (None) /hpf Urine Bacteria (None) /hpf Hyaline Casts (0-2) /lpf 10/14/18 Range/Units 10:29 WBC (3.8-10.6) k/uL RBC (3.80-5.40) m/uL Hgb (11.4-16.0) gm/dL Hct (34.0-46.0) % MCV (80.0-100.0) fL MCH (25.0-35.0) pg MCHC (31.0-37.0) g/dL RDW (11.5-15.5) % Plt Count (150-450) k/uL Neutrophils % % Lymphocytes % % Monocytes % % Eosinophils % % Basophils % % Neutrophils # (1.3-7.7) k/uL Lymphocytes # (1.0-4.8) k/uL Monocytes # (0-1.0) k/uL Eosinophils # (0-0.7) k/uL Basophils # (0-0.2) k/uL Anisocytosis PT (9.0-12.0) sec INR (<1.2) APTT (22.0-30.0) sec Sodium (137-145) mmol/L Potassium (3.5-5.1) mmol/L Chloride (98-107) mmol/L Carbon Dioxide (22-30) mmol/L Anion Gap mmol/L BUN (7-17) mg/dL Creatinine (0.52-1.04) mg/dL Est GFR (CKD-EPI)AfAm (>60 ml/min/1.73 sqM) Est GFR (CKD-EPI)NonAf (>60 ml/min/1.73 sqM) Glucose (74-99) mg/dL Calcium (8.4-10.2) mg/dL Magnesium (1.6-2.3) mg/dL Total Bilirubin (0.2-1.3) mg/dL AST (14-36) U/L ALT (9-52) U/L Alkaline Phosphatase (38-126) U/L Total Protein (6.3-8.2) g/dL Albumin (3.5-5.0) g/dL Urine Color Yellow Urine Appearance Cloudy H (Clear) Urine pH 6.5 (5.0-8.0) Ur Specific [place] 1.010 (1.001-1.035) Urine Protein Trace H (Negative) Urine Glucose (UA) Negative (Negative) Urine Ketones Negative (Negative) Urine Blood Trace H (Negative) Urine Nitrite Positive H (Negative) Urine Bilirubin Negative (Negative) Urine Urobilinogen <2.0 (<2.0) mg/dL Ur Leukocyte Esterase Large H (Negative) Urine RBC 8 H (0-5) /hpf Urine WBC 62 H (0-5) /hpf Ur Squamous Epith Cells 3 (0-4) /hpf Amorphous Sediment Rare H (None) /hpf Urine Bacteria Many H (None) /hpf Hyaline Casts 1 (0-2) /lpf Disposition Clinical Impression: Coagulopathy, Urinary tract infection Disposition: HOME SELF-CARE Instructions (If sedation given, give patient instructions): Elevated INR (ED) Additional Instructions: Hold Coumadin until he follow-up with Dr. Nguyen on Wednesday Is patient prescribed a controlled substance at d/c from ED?: No Referrals: Dick Nguyen MD [Primary Care Provider] - 1-2 days Time of Disposition: 12:07
[2018-10-14] MEDS ORDERED: ONDANSETRON 4 MG/2 ML VIAL IVP STA (10:16)
[2018-10-14 10:51] LABS: Anisocytosis Slight; Basophils # (A) 0.1 k/uL (0-0.2); Basophils % (A) 1 %; Eosinophils # (A) 0.2 k/uL (0-0.7); Eosinophils % (A) 2 %; HCT 43.7 % (34.0-46.0); Lymphocytes # (A) 2.8 k/uL (1.0-4.8); Lymphocytes % (A) 31 %; MCH 27.2 pg (25.0-35.0); MCHC 32.1 g/dL (31.0-37.0); MCV 84.8 fL (80.0-100.0); Mean Platelet Volume 7.9; Monocytes # (A) 0.5 k/uL (0-1.0); Monocytes % (A) 5 %; Neutrophils # (A) 5.5 k/uL (1.3-7.7); Neutrophils % (A) 60 %; Platelet Count 423 k/uL (150-450); RBC 5.15 m/uL (3.80-5.40); RDW 16.2 % (11.5-15.5); WBC 9.2 k/uL (3.8-10.6)
[2018-10-14 10:58] LABS: Amorphous Sediment,Urine Rare /hpf; Appearance,Urine Cloudy (Clear); Bacteria,Urine Many /hpf; Bilirubin,Urine Negative (Negative); Blood,Urine Trace (Negative); Color,Urine Yellow; Glucose,Urine (UA) Negative (Negative); Hyaline Casts,Urine 1 /lpf (0-2); Ketones,Urine Negative (Negative); Leukocyte Esterase,Urine Large (Negative); Nitrite,Urine Positive (Negative); PH, Urine 6.5 (5.0-8.0); Protein,Urine Trace (Negative); RBC,Urine 8 /hpf (0-5); Squamous Epithelial Cell,Urine 3 /hpf (0-4); Urobilinogen,Urine <2.0 mg/dL (<2.0)
[2018-10-14 11:24] LABS: ALT 19 U/L (9-52); AST 26 U/L (14-36); Albumin 3.7 g/dL (3.5-5.0); Alkaline Phosphatase 41 U/L (38-126); Anion Gap 7 mmol/L; Blood Urea Nitrogen 22 mg/dL (7-17); Carbon Dioxide 26 mmol/L (22-30); Chloride 107 mmol/L (98-107); Glucose 136 mg/dL (74-99); Magnesium 1.4 mg/dL (1.6-2.3); Sodium 140 mmol/L (137-145); Total Bilirubin 0.6 mg/dL (0.2-1.3); Total Protein 6.6 g/dL (6.3-8.2)
[2018-10-14 11:37] LABS: Potassium 4.9 mmol/L (3.5-5.1)
[2018-10-14 11:46] LABS: INR >10.0 (<1.2); Partial Thromboplastin Time 84.7 sec (22.0-30.0); Prothrombin Time >130.0 sec (9.0-12.0)
[2018-10-14 12:05] VITALS: PULSE 58
[2018-10-14] MEDS ORDERED: PHYTONADIONE ORAL 5 MG/5 ML ORAL.SYRG PO STA (12:07)
[2018-10-14] MEDS ORDERED: HYDROmorphone 0.5 MG/0.5 ML SYRINGE IVP STA (12:39)
[2018-10-14 12:49] VITALS: BP 139/74; TEMP 98.4
== END 2018-10-14 12:55 | disposition home or self-care (01) ==
LOC: EC 09:47
DX: N39.0 Urinary tract infection, site not specified (principal); D68.9 Coagulation defect, unspecified; K21.9 Gastro-esophageal reflux disease without esophagitis; E78.5 Hyperlipidemia, unspecified; I10 Essential (primary) hypertension; E11.9 Type 2 diabetes mellitus without complications; F17.200 Nicotine dependence, unspecified, uncomplicated; Z79.01 Long term (current) use of anticoagulants; Z79.899 Other long term (current) drug therapy; Z88.1 Allergy status to other antibiotic agents; Z88.2 Allergy status to sulfonamides; Z89.611 Acquired absence of right leg above knee; Z89.612 Acquired absence of left leg above knee; Z98.1 Arthrodesis status
CPT/HCPCS: 99283; 96365; 96375 ×2; 36415; 80053; 83735; 85025; 85610; 85730; 81001; 87086; 87077; 87186; J2405; J0696; J1170

== ENCOUNTER 2018-10-15 13:40 | Emergency (ER) | payer OTHER ==
[2018-10-15 13:50] VITALS: RESP 18
[2018-10-15] MEDS ORDERED: ASPIRIN 81 MG PO STA (13:56)
[2018-10-15] MEDS ORDERED: SODIUM CHLORIDE 0.9% 500 ML 500 ML IV STA (13:56)
[2018-10-15] MEDS ORDERED: MORPHINE SULFATE 2 MG/ML SYRINGE IVP ONE (13:56)
[2018-10-15] MEDS ORDERED: SODIUM CHLORIDE 0.9% 1,000 ML IV STA (13:56)
[2018-10-15 14:48] LABS: Anisocytosis Slight; Basophils # (A) 0.1 k/uL (0-0.2); Basophils % (A) 1 %; Eosinophils # (A) 0.2 k/uL (0-0.7); Eosinophils % (A) 3 %; HCT 43.1 % (34.0-46.0); HGB 13.7 gm/dL (11.4-16.0); Lymphocytes # (A) 3.4 k/uL (1.0-4.8); Lymphocytes % (A) 39 %; MCH 26.9 pg (25.0-35.0); MCHC 31.8 g/dL (31.0-37.0); MCV 84.7 fL (80.0-100.0); Mean Platelet Volume 7.8; Monocytes # (A) 0.5 k/uL (0-1.0); Monocytes % (A) 5 %; Neutrophils # (A) 4.5 k/uL (1.3-7.7); Neutrophils % (A) 50 %; Platelet Count 431 k/uL (150-450); RBC 5.09 m/uL (3.80-5.40); RDW 16.2 % (11.5-15.5); WBC 8.8 k/uL (3.8-10.6)
[2018-10-15 14:53] LABS: ALT 25 U/L (9-52); AST 18 U/L (14-36); Albumin 3.6 g/dL (3.5-5.0); Alkaline Phosphatase 50 U/L (38-126); Amylase 47 U/L (30-110); Anion Gap 6 mmol/L; Blood Urea Nitrogen 20 mg/dL (7-17); Carbon Dioxide 24 mmol/L (22-30); Chloride 110 mmol/L (98-107); Glucose 91 mg/dL (74-99); INR 2.5 (<1.2); Lipase 223 U/L (23-300); Magnesium 1.4 mg/dL (1.6-2.3); Partial Thromboplastin Time 44.3 sec (22.0-30.0); Prothrombin Time 24.4 sec (9.0-12.0); Sodium 140 mmol/L (137-145); Total Bilirubin 0.6 mg/dL (0.2-1.3); Total Protein 6.4 g/dL (6.3-8.2)
--- NOTE | 2018-10-15 15:02 | XR ---
EXAMINATION TYPE: XR chest 2V DATE OF EXAM: 10/15/2018 COMPARISON: 06/24/2018 HISTORY: Lump on the chest. Short of breath. TECHNIQUE: Frontal and lateral views of the chest are obtained. FINDINGS: Heart appears enlarged. There is no heart failure. There is some coarsening of interstitia l markings. There is slight blunting of the costophrenic angles. IMPRESSION: There is improvement in the pleural effusions and basilar atelectasis compared to last e xam. No gross heart failure.
[2018-10-15] MEDS ORDERED: ONDANSETRON 4 MG/2 ML VIAL IVP STA (15:25)
--- NOTE | 2018-10-15 16:04 | ED ---
Chest Pain HPI - General Chief Complaint: Chest Pain Stated Complaint: Chest Pain Time Seen by Provider: 10/15/18 13:49 Source: EMS, RN notes reviewed, old records reviewed Mode of arrival: EMS Limitations: no limitations - History of Present Illness Initial Comments: Patient is a 63-year-old female with history of hypertension presents emergency department today with complaints of left-sided chest pain, lump over her breast and complains of left arm pain. She reports symptoms started shortly before arriving to emergency department. She read the mess. She has history of bilateral [id number] amputation. Patient reports that she was seen in the emergency department yesterday for abnormal lab findings. She was told that her INR was about 10. She was given vitamin K at that time. She also diagnosed with urinary tract infection. She's been taking antibiotics for the past day for the known urinary tract infection. She denies any nausea or vomiting or abdominal pain. - Related Data Home Medications Medication Instructions Recorded Confirmed Fenofibrate 160 mg PO HS 11/15/15 10/14/18 Losartan Potassium [Cozaar] 100 mg PO DAILY 11/15/15 10/14/18 Metoprolol Tartrate [Lopressor] 50 mg PO BID 11/15/15 10/14/18 amLODIPine [Norvasc] 10 mg PO DAILY 03/08/17 10/14/18 Prochlorperazine [Compazine] 10 mg PO TID PRN 04/28/18 10/14/18 ALPRAZolam [Xanax] 0.5 mg PO HS PRN 06/21/18 10/14/18 Atorvastatin Calcium [Lipitor] 20 mg PO HS 06/21/18 10/14/18 Morphine Sulfate ER [Ms Contin] 30 mg PO Q12HR 06/21/18 10/14/18 Sennosides-Docusate Sodium 1 tab PO BID 06/21/18 10/14/18 [Senokot-S] cloNIDine HCL [Catapres] 0.1 mg PO BID 06/21/18 10/14/18 Flecainide Acetate 100 mg PO Q12HR 10/14/18 10/14/18 Omeprazole 20 mg PO DAILY 10/14/18 10/14/18 Ondansetron HCl [Zofran] 8 mg PO TID 10/14/18 10/14/18 Simethicone [Gas-X] 250 mg PO DAILY 10/14/18 10/14/18 Warfarin [Coumadin] 5 mg PO DAILY 10/14/18 10/14/18 Previous Rx's Medication Instructions Recorded HYDROcodone/APAP 10-325MG [[place] 1 tab PO Q6H PRN #120 tab 05/05/18 10-325] Nitroglycerin Sl Tabs [Nitrostat] 0.4 mg SUBLINGUAL Q5M PRN #50 tab 06/28/18 Cyclobenzaprine [Flexeril] 10 mg PO TID #12 tab 10/15/18 Naproxen [EC-Naprosyn] 500 mg PO BID #20 tablet. 10/15/18 Allergies Allergy/AdvReac Type Severity Reaction Status Date / Time sulfamethoxazole Allergy Itching Verified 10/14/18 10:46 [From Septra] trimethoprim [From Septra] Allergy Itching Verified 10/14/18 10:46 levofloxacin [From Levaquin] AdvReac Muscle Pain Verified 10/14/18 10:46 Review of Systems ROS Statement: Those systems with pertinent positive or pertinent negative responses have been documented in the HPI. ROS Other: All systems not noted in ROS Statement are negative. 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 occasional vertigo, and R arm fracture with surgery. 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 lithotripsy on left side Past Anesthesia/Blood Transfusion Reactions: No Reported Reaction Additional Past Anesthesia/Blood Transfusion Reaction / Comment(s): Pt received blood in 1978-no reaction reported. Past Psychological History: No Psychological Hx Reported Smoking Status: Current every day smoker Past Alcohol Use History: None Reported Past Drug Use History: None Reported - Past Family History Father Family Medical History: Cancer, Myocardial Infarction ([place]) Additional Family Medical History / Comment(s): Father had lung cancer-went into remission. He of a massive [place] in his 60's Mother Family Medical History: Cancer Additional Family Medical History / Comment(s): Mother of lung cancer at age 54 yrs. General Exam - General Exam Comments Initial Comments: 63-year-old female. Alert and oriented 3. No distress. Limitations: no limitations General appearance: alert, in no apparent distress Head exam: Present: atraumatic, normocephalic, normal inspection Eye exam: Present: normal appearance, PERRL, EOMI. Absent: scleral icterus, conjunctival injection, periorbital swelling ENT exam: Present: normal exam, normal oropharynx, mucous membranes moist Neck exam: Present: normal inspection Respiratory exam: Present: normal lung sounds bilaterally, other (Evidence of contusion of her left breast.). Absent: respiratory distress, wheezes, rales, rhonchi, stridor Cardiovascular Exam: Present: regular rate, normal rhythm, normal heart sounds. Absent: systolic murmur, diastolic murmur, rubs, gallop, clicks GI/Abdominal exam: Present: soft, normal bowel sounds. Absent: distended, tenderness, guarding, rebound, rigid Extremities exam: Present: normal inspection, full ROM, normal capillary refill. Absent: tenderness, pedal edema, joint swelling, calf tenderness Back exam: Present: normal inspection Neurological exam: Present: alert, oriented X3, CN II-XII intact Psychiatric exam: Present: normal affect, normal mood Course Vital Signs 10/15/18 13:46 Temperature 99.2 F Pulse Rate 63 Respiratory 18 Rate Blood Pressure 187/80 O2 Sat by Pulse 95 Oximetry Chest Pain MDM - MDM 63-year-old female presents for today with complaints of left breast pain with contusion left arm muscle pain. Patient reports that she's a amputee and his muscle pain related to lift herself up. She was seen yesterday for an elevated INR. With 10. She is given vitamin K. The symptoms 2.5. Within normal limits. Discussed patient's bruising is due to her elevated INR yesterday. Discussed the Patient was sent to see some bruising. Hemoglobin is stable. She denies any deep chest pain. Troponins negative EKG shows no acute changes. Chest x-ray is negative for any acute process. Lab work otherwise is unremarkable. At this time Patient be discharged with final PCP to recheck INR in couple days. Discussed that she can take a temperature medication for muscle pain. All questions were answered return parameters were discussed. Disposition Clinical Impression: Musculoskeletal arm pain, Contusion, breast Disposition: ADMITTED IP TO THIS HOSP Condition: Stable Instructions (If sedation given, give patient instructions): Musculoskeletal Pain (ED) Additional Instructions: Patient has close follow up with PCP to recheck INR on Wednesday. Patient should take anti-inflammatory medicine as prescribed. Return to emergency department if any alarming signs or symptoms occur. Prescriptions: Naproxen [EC-Naprosyn] 500 mg PO BID #20 tablet. Cyclobenzaprine [Flexeril] 10 mg PO TID #12 tab Is patient prescribed a controlled substance at d/c from ED?: No Referrals: Dick Nguyen MD [Primary Care Provider] - 1-2 days Time of Disposition: 16:30
[2018-10-15] MEDS ORDERED: HYDROmorphone 1 MG/ML 1 ML SYRINGE IVP STA (16:25)
[2018-10-15] MEDS ORDERED: KETOROLAC 30 MG/ML 1 ML VIAL IVP STA (16:25)
[2018-10-15] MEDS ORDERED: CYCLOBENZAPRINE 10MG STARTER 3 TAB BTL PO STA (17:04)
[2018-10-15 17:06] VITALS: BP 155/80; PULSE 54; TEMP 97.8
== END 2018-10-15 17:53 | disposition other institution (70) ==
LOC: EC 13:40
DX: S20.02XA Contusion of left breast, initial encounter (principal); M79.602 Pain in left arm; R07.9 Chest pain, unspecified; N39.0 Urinary tract infection, site not specified; E78.5 Hyperlipidemia, unspecified; I10 Essential (primary) hypertension; K21.9 Gastro-esophageal reflux disease without esophagitis; F17.200 Nicotine dependence, unspecified, uncomplicated; Z88.1 Allergy status to other antibiotic agents; Z88.2 Allergy status to sulfonamides; Z79.01 Long term (current) use of anticoagulants; Z79.891 Long term (current) use of opiate analgesic; Z79.899 Other long term (current) drug therapy; Z87.76 Personal history of (corrected) congenital malformations of integument, limbs and musculoskeletal system; Z89.511 Acquired absence of right leg below knee; Z89.512 Acquired absence of left leg below knee; Z82.49 Family history of ischemic heart disease and other diseases of the circulatory system
CPT/HCPCS: 36415; 93005; 83880; 80053; 82150; 83690; 83735; 84484; 85025; 85610; 85730; 71046; 99285; 96374; 96375 ×3; 96361 ×3; J2405; J1885; J2270; J1170

== ENCOUNTER 2018-10-30 10:14 | Inpatient (IN) | payer OTHER ==
[2018-10-30] MEDS ORDERED: MORPHINE SULFATE 4 MG/ML SYRINGE IV STA (10:31)
[2018-10-30] MEDS ORDERED: PANTOPRAZOLE 40 MG/10 ML VIAL IVP STA (10:31)
[2018-10-30] MEDS ORDERED: SODIUM CHLORIDE 0.9% 1,000 ML IV STA ×2 (10:31)
--- NOTE | 2018-10-30 10:34 | ED ---
General Adult HPI - General Source: patient, EMS, RN notes reviewed, old records reviewed Mode of arrival: EMS Limitations: no limitations <Malika Us - Last Filed: 10/30/18 13:14> <Max Rodriguez - Last Filed: 10/30/18 13:27> - General Chief complaint: Back Pain/Injury Stated complaint: back pain Time Seen by Provider: 10/30/18 10:15 - History of Present Illness Initial comments: Patient is a 63-year-old female who presents emergency department today for evaluation for lower abdominal pain and left-sided flank pain. Patient reports symptoms started last night into today. Patient states that she's had in some diarrhea and bloody stool noted. She is on Coumadin. She was recently in the hospital for coagulopathy elevated INR. Patient was also diagnosed with urinary tract infection at that time. She completed one week of macrobid. Patient reports that she has diffuse abdominal pain. Patient states she's been treated for urinary tract infections for the past 3 months with no relief. No nausea or vomiting.Patient denies any recent fever, chills, shortness of breath, chest pain, back pain, nausea vomiting, numbness or tingling, dysuria or hematuria, constipation or diarrhea, headaches or visual changes, or any other current symptoms (Malika Us) - Related Data Home Medications Medication Instructions Recorded Confirmed Fenofibrate 160 mg PO HS 11/15/15 10/14/18 Losartan Potassium [Cozaar] 100 mg PO DAILY 11/15/15 10/14/18 Metoprolol Tartrate [Lopressor] 50 mg PO BID 11/15/15 10/14/18 amLODIPine [Norvasc] 10 mg PO DAILY 03/08/17 10/14/18 Prochlorperazine [Compazine] 10 mg PO TID PRN 04/28/18 10/14/18 ALPRAZolam [Xanax] 0.5 mg PO HS PRN 06/21/18 10/14/18 Atorvastatin Calcium [Lipitor] 20 mg PO HS 06/21/18 10/14/18 Morphine Sulfate ER [Ms Contin] 30 mg PO Q12HR 06/21/18 10/14/18 Sennosides-Docusate Sodium 1 tab PO BID 06/21/18 10/14/18 [Senokot-S] cloNIDine HCL [Catapres] 0.1 mg PO BID 06/21/18 10/14/18 Flecainide Acetate 100 mg PO Q12HR 10/14/18 10/14/18 Omeprazole 20 mg PO DAILY 10/14/18 10/14/18 Ondansetron HCl [Zofran] 8 mg PO TID 10/14/18 10/14/18 Simethicone [Gas-X] 250 mg PO DAILY 10/14/18 10/14/18 Warfarin [Coumadin] 5 mg PO DAILY 10/14/18 10/14/18 Previous Rx's Medication Instructions Recorded HYDROcodone/APAP 10-325MG [[place] 1 tab PO Q6H PRN #120 tab 05/05/18 10-325] Nitroglycerin Sl Tabs [Nitrostat] 0.4 mg SUBLINGUAL Q5M PRN #50 tab 06/28/18 Cyclobenzaprine [Flexeril] 10 mg PO TID #12 tab 10/15/18 Naproxen [EC-Naprosyn] 500 mg PO BID #20 tablet. 10/15/18 Allergies Allergy/AdvReac Type Severity Reaction Status Date / Time sulfamethoxazole Allergy Itching Verified 10/30/18 10:15 [From Septra] trimethoprim [From Septra] Allergy Itching Verified 10/30/18 10:15 levofloxacin [From Levaquin] AdvReac Muscle Pain Verified 10/30/18 10:15 Review of Systems ROS Other: All systems not noted in ROS Statement are negative. <Malika Us - Last Filed: 10/30/18 13:14> ROS Other: All systems not noted in ROS Statement are negative. <Max Rodriguez - Last Filed: 10/30/18 13:27> ROS Statement: Those systems with pertinent positive or pertinent negative responses have been documented in the HPI. 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 occasional vertigo, and R arm fracture with surgery. 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 lithotripsy on left side Past Anesthesia/Blood Transfusion Reactions: No Reported Reaction Additional Past Anesthesia/Blood Transfusion Reaction / Comment(s): Pt received blood in 1978-no reaction reported. Past Psychological History: No Psychological Hx Reported Smoking Status: Current every day smoker Past Alcohol Use History: None Reported Past Drug Use History: None Reported - Past Family History Father Family Medical History: Cancer, Myocardial Infarction ([place]) Additional Family Medical History / Comment(s): Father had lung cancer-went into remission. He of a massive [place] in his 60's Mother Family Medical History: Cancer Additional Family Medical History / Comment(s): Mother of lung cancer at age 54 yrs. <Malika Us - Last Filed: 10/30/18 13:14> General Exam Limitations: no limitations General appearance: alert, in no apparent distress Head exam: Present: atraumatic, normocephalic, normal inspection Eye exam: Present: normal appearance, PERRL, EOMI. Absent: scleral icterus, conjunctival injection, periorbital swelling ENT exam: Present: normal exam, mucous membranes moist Neck exam: Present: normal inspection. Absent: tenderness, meningismus, lymphadenopathy Respiratory exam: Present: normal lung sounds bilaterally. Absent: respiratory distress, wheezes, rales, rhonchi, stridor Cardiovascular Exam: Present: regular rate, normal rhythm, normal heart sounds. Absent: systolic murmur, diastolic murmur, rubs, gallop, clicks GI/Abdominal exam: Present: soft, tenderness (Diffuse tenderness. More severe and left lower quadrant.), normal bowel sounds. Absent: distended, guarding, rebound, rigid Extremities exam: Present: other (Bilateral [id number] amputation.) Neurological exam: Present: alert, oriented X3, CN II-XII intact Psychiatric exam: Present: normal affect, normal mood Skin exam: Present: warm, dry, intact, normal color. Absent: rash <Malika Us - Last Filed: 10/30/18 13:14> - General Exam Comments Initial Comments: This is a 63-year-old female. Alert and oriented 3. Patient appears in no significant distress. (Malika Us) Course <Max Rodriguez - Last Filed: 10/30/18 13:27> Vital Signs 10/30/18 10/30/18 10/30/18 10:15 11:10 12:38 Temperature 98.9 F Pulse Rate 79 67 Respiratory 18 18 Rate Blood Pressure 178/161 149/94 123/83 O2 Sat by Pulse 97 97 Oximetry - Reevaluation(s) Reevaluation #1: 10/30/18 13:26 Case was discussed with practitioner Abeba. Case also discussed with Dr. Lui, who will admit covering for Dr. Nguyen. He does request consult with Dr. Zavala. (Max Rodriguez) Medical Decision Making - Lab Data Result diagrams: 10/30/18 10:50 10/30/18 10:50 - Radiology Data Radiology results: report reviewed <Malika Us - Last Filed: 10/30/18 13:14> - Lab Data Result diagrams: 10/30/18 10:50 10/30/18 10:50 <Max Rodriguez - Last Filed: 10/30/18 13:27> - Medical Decision Making 63-year-old female persist today with left-sided back pain rating towards the front of her abdomen. Diffuse abdominal tenderness noted. She is afebrile at this time. Patient was recently treated with Macrobid for urinary tract infection. Last urine culture grew Klebsiella ox C Toca. Patient was suscepti ble to Macrobid. Today her urinalysis does show continued urinary tract infection. Patient labwork was reviewed. Relatively unremarkable. She did report she's had some episodes of diarrhea yesterday. Patient at this time will be started on cefepime as it was susceptible to her last urine culture. Culture completed today as well. Patient also has an elevated INR of 6.9, patient is on Coumadin. Patient was given 5 mg of by mouth vitamin K. Patient will be admitted at this time for coagulopathy, and pyelonephritis. (Malika Us) - Lab Data Lab Results 10/30/18 10/30/18 10/30/18 Range/Units 10:50 10:50 10:50 WBC 10.9 H (3.8-10.6) k/uL RBC 6.09 H (3.80-5.40) m/uL Hgb 16.6 H (11.4-16.0) gm/dL Hct 50.4 H (34.0-46.0) % MCV 82.8 (80.0-100.0) fL MCH 27.2 (25.0-35.0) pg MCHC 32.9 (31.0-37.0) g/dL RDW 15.5 (11.5-15.5) % Plt Count 501 H (150-450) k/uL Neutrophils % 67 % Lymphocytes % 26 % Monocytes % 4 % Eosinophils % 2 % Basophils % 1 % Neutrophils # 7.2 (1.3-7.7) k/uL Lymphocytes # 2.8 (1.0-4.8) k/uL Monocytes # 0.4 (0-1.0) k/uL Eosinophils # 0.2 (0-0.7) k/uL Basophils # 0.1 (0-0.2) k/uL PT (9.0-12.0) sec INR (<1.2) APTT (22.0-30.0) sec Sodium 143 (137-145) mmol/L Potassium 4.1 (3.5-5.1) mmol/L Chloride 113 H (98-107) mmol/L Carbon Dioxide 19 L (22-30) mmol/L Anion Gap 11 mmol/L BUN 18 H (7-17) mg/dL Creatinine 0.44 L (0.52-1.04) mg/dL Est GFR (CKD-EPI)AfAm >90 (>60 ml/min/1.73 sqM) Est GFR (CKD-EPI)NonAf >90 (>60 ml/min/1.73 sqM) Glucose 122 H (74-99) mg/dL Plasma Lactic Acid Joshua 1.1 (0.7-2.0) mmol/L Calcium 9.8 (8.4-10.2) mg/dL Total Bilirubin 0.6 (0.2-1.3) mg/dL AST 32 (14-36) U/L ALT 23 (9-52) U/L Alkaline Phosphatase 64 (38-126) U/L Total Protein 7.2 (6.3-8.2) g/dL Albumin 4.0 (3.5-5.0) g/dL Amylase 59 (30-110) U/L Lipase 334 H (23-300) U/L Urine Color Urine Appearance (Clear) Urine pH (5.0-8.0) Ur Specific [place] (1.001-1.035) Urine Protein (Negative) Urine Glucose (UA) (Negative) Urine Ketones (Negative) Urine Blood (Negative) Urine Nitrite (Negative) Urine Bilirubin (Negative) Urine Urobilinogen (<2.0) mg/dL Ur Leukocyte Esterase (Negative) Urine RBC (0-5) /hpf Urine WBC (0-5) /hpf Urine WBC Clumps (None) /hpf Ur Squamous Epith Cells (0-4) /hpf Urine Bacteria (None) /hpf Urine Mucus (None) /hpf 10/30/18 10/30/18 Range/Units 10:50 12:15 WBC (3.8-10.6) k/uL RBC (3.80-5.40) m/uL Hgb (11.4-16.0) gm/dL Hct (34.0-46.0) % MCV (80.0-100.0) fL MCH (25.0-35.0) pg MCHC (31.0-37.0) g/dL RDW (11.5-15.5) % Plt Count (150-450) k/uL Neutrophils % % Lymphocytes % % Monocytes % % Eosinophils % % Basophils % % Neutrophils # (1.3-7.7) k/uL Lymphocytes # (1.0-4.8) k/uL Monocytes # (0-1.0) k/uL Eosinophils # (0-0.7) k/uL Basophils # (0-0.2) k/uL PT 67.2 H (9.0-12.0) sec INR 6.9 H* (<1.2) APTT 64.0 H (22.0-30.0) sec Sodium (137-145) mmol/L Potassium (3.5-5.1) mmol/L Chloride (98-107) mmol/L Carbon Dioxide (22-30) mmol/L Anion Gap mmol/L BUN (7-17) mg/dL Creatinine (0.52-1.04) mg/dL Est GFR (CKD-EPI)AfAm (>60 ml/min/1.73 sqM) Est GFR (CKD-EPI)NonAf (>60 ml/min/1.73 sqM) Glucose (74-99) mg/dL Plasma Lactic Acid Joshua (0.7-2.0) mmol/L Calcium (8.4-10.2) mg/dL Total Bilirubin (0.2-1.3) mg/dL AST (14-36) U/L ALT (9-52) U/L Alkaline Phosphatase (38-126) U/L Total Protein (6.3-8.2) g/dL Albumin (3.5-5.0) g/dL Amylase (30-110) U/L Lipase (23-300) U/L Urine Color Yellow Urine Appearance Cloudy H (Clear) Urine pH 6.0 (5.0-8.0) Ur Specific [place] 1.021 (1.001-1.035) Urine Protein 1+ H (Negative) Urine Glucose (UA) Negative (Negative) Urine Ketones Negative (Negative) Urine Blood Small H (Negative) Urine Nitrite Positive H (Negative) Urine Bilirubin Negative (Negative) Urine Urobilinogen <2.0 (<2.0) mg/dL Ur Leukocyte Esterase Large H (Negative) Urine RBC 8 H (0-5) /hpf Urine WBC >182 H (0-5) /hpf Urine WBC Clumps Few H (None) /hpf Ur Squamous Epith Cells 2 (0-4) /hpf Urine Bacteria Many H (None) /hpf Urine Mucus Rare H (None) /hpf - Radiology Data Unremarkable abdomen and KUB. (Malika Us) Disposition Is patient prescribed a controlled substance at d/c from ED?: No Time of Disposition: 13:16 <Malika Us - Last Filed: 10/30/18 13:14> <Max Rodriguez - Last Filed: 10/30/18 13:27> Clinical Impression: Pyelonephritis, Failure of outpatient treatment, Coagulopathy Disposition: ADMITTED IP TO THIS HOSP Condition: Stable Referrals: Dick Nguyen MD [Primary Care Provider] - 1-2 days
[2018-10-30 11:06] LABS: Basophils # (A) 0.1 k/uL (0-0.2); Basophils % (A) 1 %; Eosinophils # (A) 0.2 k/uL (0-0.7); Eosinophils % (A) 2 %; HCT 50.4 % (34.0-46.0); HGB 16.6 gm/dL (11.4-16.0); Lymphocytes # (A) 2.8 k/uL (1.0-4.8); Lymphocytes % (A) 26 %; MCH 27.2 pg (25.0-35.0); MCHC 32.9 g/dL (31.0-37.0); MCV 82.8 fL (80.0-100.0); Mean Platelet Volume 7.2; Monocytes # (A) 0.4 k/uL (0-1.0); Monocytes % (A) 4 %; Neutrophils # (A) 7.2 k/uL (1.3-7.7); Neutrophils % (A) 67 %; Platelet Count 501 k/uL (150-450); RBC 6.09 m/uL (3.80-5.40); RDW 15.5 % (11.5-15.5); WBC 10.9 k/uL (3.8-10.6)
[2018-10-30 11:29] LABS: Amylase 59 U/L (30-110); Anion Gap 11 mmol/L; Blood Urea Nitrogen 18 mg/dL (7-17); Calcium 9.8 mg/dL (8.4-10.2); Carbon Dioxide 19 mmol/L (22-30); Chloride 113 mmol/L (98-107); Glucose 122 mg/dL (74-99); Lipase 334 U/L (23-300); Sodium 143 mmol/L (137-145); Total Bilirubin 0.6 mg/dL (0.2-1.3); Total Protein 7.2 g/dL (6.3-8.2)
[2018-10-30 11:33] LABS: Prothrombin Time 67.2 sec (9.0-12.0)
[2018-10-30 11:34] LABS: Potassium 4.1 mmol/L (3.5-5.1)
[2018-10-30 11:35] LABS: ALT 23 U/L (9-52); AST 32 U/L (14-36); Alkaline Phosphatase 64 U/L (38-126)
[2018-10-30 11:36] LABS: INR 6.9 (<1.2)
--- NOTE | 2018-10-30 11:53 | XR ---
EXAMINATION TYPE: XR KUB DATE OF EXAM: 10/30/2018 COMPARISON: 04/29/2018 INDICATION: Abdomen pain lower abdomen TECHNIQUE: Single view abdomen supine view FINDINGS: There is a normal bowel gas pattern. Psoas margins are normal. No organomegaly is present. There is a 0.9 cm calcification overlying the right iliac wing. This was present previously. IMPRESSION: 1. Unremarkable Abdomen
[2018-10-30] MEDS ORDERED: PHYTONADIONE ORAL 5 MG/5 ML ORAL.SYRG PO STA (12:03)
[2018-10-30 12:41] LABS: Appearance,Urine Cloudy (Clear); Bacteria,Urine Many /hpf; Bilirubin,Urine Negative (Negative); Blood,Urine Small (Negative); Color,Urine Yellow; Glucose,Urine (UA) Negative (Negative); Ketones,Urine Negative (Negative); Leukocyte Esterase,Urine Large (Negative); Mucus,Urine Rare /hpf; Nitrite,Urine Positive (Negative); Protein,Urine 1+ (Negative); RBC,Urine 8 /hpf (0-5); Specific Gravity,Urine 1.021 (1.001-1.035); Squamous Epithelial Cell,Urine 2 /hpf (0-4); Urobilinogen,Urine <2.0 mg/dL (<2.0); WBC,Urine >182 /hpf (0-5)
[2018-10-30] MEDS ORDERED: HYDROmorphone 1 MG/ML 1 ML SYRINGE IVP STA (13:10)
[2018-10-30] MEDS ORDERED: CEFEPIME 2 GM in SODIUM CHLORIDE 0.9% 100 ML IVPB STA (13:11)
[2018-10-30] MEDS ORDERED: HYDROcodone/APAP 5-325MG 1 EACH TAB PO PRN (13:20)
[2018-10-30] MEDS ORDERED: NALOXONE 0.4 MG/ML 1 ML VIAL IV PRN (13:20)
[2018-10-30] MEDS: SODIUM CHLORIDE 0.9% 1,000 ML IV SCH (14:46)
[2018-10-30 15:05] VITALS: BMI 26.9
[2018-10-30] MEDS: HYDROmorphone 1 MG/ML 1 ML SYRINGE IVP PRN ×3 (16:15→22:53)
[2018-10-30] MEDS ORDERED: CYCLOBENZAPRINE 10 MG TAB PO PRN (17:54)
[2018-10-30] MEDS ORDERED: ONDANSETRON 4 MG TAB PO PRN (17:54)
[2018-10-30] MEDS ORDERED: TEMAZEPAM 15 MG CAP PO PRN (17:56)
--- NOTE | 2018-10-30 19:01 | HP ---
HISTORY AND PHYSICAL DATE OF SERVICE: 10/30/2018 CHIEF COMPLAINTS: Abdominal pain, lower abdominal pain, flank pain. HISTORY OF PRESENT ILLNESS: This 63-year-old woman with a past medical history of multiple medical problems including GERD, hypertension, hyperlipidemia, history of urinary retention, history of nephrolithiasis, history of right nonfunctioning kidney was having abdominal symptoms for the last several weeks. The patient had pain in the lower part and left lower quadrant and the pain is radiating to the flank. Patient recently evaluated in the ER and was found to have UTI and coagulopathy treatment in the outpatient setting but symptoms persisted. The patient also complaining of pain while passing stools and patient came to [facility] and admitted for further evaluation and treatment. Patient also had an episode of acute urinary retention also. There is no history of fever, rigors or chills. No history of headache, loss of consciousness or seizures. The patient is followed by Dr. Nguyen in the outpatient setting. Urine culture done 10/14/2018, grew Klebsiella oxytoca, which is resistant multiple antibiotics. PAST MEDICAL HISTORY: History of GERD, hypertension, hyperlipidemia, history of cholecystectomy, history of DJD. MEDICATIONS: The home medications are: 1. Cozaar 100 mg p.o. q.h.s. 2. Fenofibrate 160 mg q.h.s. 3. Lipitor 20 mg q.h.s. 4. Xanax 0.5 q.h.s. 5. [place] 10 mg q.6h p.r.n. 6. Catapres 0.1 p.o. b.i.d. 7. Norvasc 10 mg p.o. daily. 8. Coumadin 5 mg p.o. daily. 9. Zofran 8 mg t.i.d. p.r.n. 10.MS Contin 30 mg p.o. b.i.d. 11.Flecainide 100 mg p.o. b.i.d. 12.Flexeril 10 mg p.o. t.i.d. p.r.n. ALLERGIES: LEVAQUIN. FAMILY HISTORY: History of cancer and myocardial infarction in the family. SOCIAL HISTORY: History of continued ongoing smoking. No history of alcohol intake. REVIEW OF SYSTEMS: ENT: No diminished hearing or vision. CARDIOVASCULAR: No angina or palpitations. RESPIRATION: As mentioned earlier. GI no nausea or vomiting. mentioned earlier. NERVOUS SYSTEM: No numbness or weakness. ALLERGY/IMMUNOLOGY: No asthma or hayfever. MUSCULOSKELETAL as mentioned earlier. HEMATOLOGY/ONCOLOGY: No history of anemia. ENDOCRINE: No history of diabetes or hypothyroidism. CONSTITUTIONAL: As mentioned earlier. Dermatology: Negative. Rheumatology: Negative. Psychiatry: As mentioned earlier. PHYSICAL EXAMINATION: The patient is alert and oriented x3. The pulse is 68, blood pressure 130/87, respiration 18, temp 97.8, pulse ox 97% on room air. HEENT: Conjunctivae normal. Oral mucosa moist. Neck is no jugular venous distention. No lymph node enlargement. CARDIOVASCULAR: S1, S2 muffled. RESPIRATORY: Breath sounds diminished in the bases. A few scattered rhonchi and crackles. ABDOMEN: Soft. Mild diffuse tenderness in the hypogastrium and as well as left lower abdomen present. No flank tenderness present. No mass palpable. LEGS: Status post bilateral below-knee amputation. Nervous system: No focal deficits. Skin: No ulcers. No rashes. No bleeding. Joints: No active deforming arthropathy. LAB STUDIES: WBC 11.1, hemoglobin 16.6, INR 6.9, sodium 143, potassium 4.1. UA noted. ASSESSMENT: 1. Lower abdominal pain, flank pain for evaluation. 2. Klebsiella oxytoca from the cultures. 3. Acute urinary tract infection with failure of outpatient treatment. 4. Coumadin coagulopathy. 5. Increased WBC. 6. Hypertension. 7. Hyperlipidemia. 8. History of gastroesophageal reflux disease. 9. History of nephrolithiasis. 10.History of right nonfunctioning kidney. 11.Bilateral below-knee amputations at age 6 due to defects. 12.History of cervical fusion. 13.History of urinary lithotripsy. 14.History of pyelonephritis. RECOMMENDATIONS AND DISCUSSION: Continue current medications, monitoring, management and symptomatic treatment. Otherwise, at this time, I recommend antibiotics, cultures. Symptomatic treatment. Resume the home medication. Hold Coumadin at this time. Repeat PT/INR. Closely follow. Dr. Nguyen will follow tomorrow. Further recommendations to follow. The Klebsiella is resistant to ceftriaxone for sensitive Cefepime. We will initiate Cefepime and continue to monitor. Further recommendations to follow. MMODL / IJN: [id number] / [facility]
[2018-10-30] MEDS: ATORVASTATIN 20 MG TAB PO SCH (20:43)
[2018-10-30] MEDS: LOSARTAN 50 MG TAB PO SCH (20:43)
[2018-10-30] MEDS: ALPRAZolam 0.5 MG TAB PO SCH (20:43)
[2018-10-30] MEDS: FENOFIBRATE 160 MG TAB PO SCH (20:44)
[2018-10-30] MEDS: MORPHINE SULFATE ER 30 MG TABLET PO SCH (20:44)
[2018-10-30] MEDS: cloNIDine HCL 0.1 MG TAB PO SCH (20:44)
[2018-10-30] MEDS: FLECAINIDE 50 MG TAB PO SCH (21:17)
[2018-10-30] MEDS: CEFEPIME 2 GM in SODIUM CHLORIDE 0.9% 100 ML IVPB SCH (21:18)
[2018-10-31] MEDS: HYDROcodone/APAP 10-325MG 1 EACH TAB PO PRN ×2 (01:41→15:20)
[2018-10-31] MEDS: HYDROmorphone 1 MG/ML 1 ML SYRINGE IVP PRN ×8 (01:56→23:30)
[2018-10-31] MEDS: ONDANSETRON 4 MG/2 ML VIAL IVP PRN ×3 (02:00→20:17)
[2018-10-31] MEDS: CEFEPIME 2 GM in SODIUM CHLORIDE 0.9% 100 ML IVPB SCH ×3 (04:58→20:19)
[2018-10-31] MEDS: FLECAINIDE 50 MG TAB PO SCH ×2 (08:09→20:18)
[2018-10-31] MEDS: cloNIDine HCL 0.1 MG TAB PO SCH ×2 (08:09→20:19)
[2018-10-31] MEDS: amLODIPine 10 MG TAB PO SCH (08:09)
[2018-10-31] MEDS ORDERED: PANTOPRAZOLE 40 MG/10 ML VIAL IV SCH (09:00)
--- NOTE | 2018-10-31 09:59 | P.CONS ---
History of Present Illness - Reason for Consult Consult date: 10/31/18 Recurrent urinary tract infections - History of Present Illness This is a 63-year-old female presented to [facility] emergency center due to abdominal pain left sided abdominal pain and flank pain. She states it started at 3 AM on Wednesday after she had a bowel movement. She states she normally takes a stool softener every night due to constipation but she had 2 loose stools on Wednesday morning. The pain did not go away after she had a bowel movement. She does complain of incontinence of urine and possibly some discomfort with urination but she states that she does not have sensitivity to this. She thinks she has been drinking enough fluids but thinks her urine output has been low. She has history of being treated with Macrodantin for 7 days 1 week ago and has had an ongoing urinary tract infection for 3 months. She completed at least 2 previous courses of antibiotics. She is known to have kidney stones and has undergone lithotripsy and right ureteral stent with removal in the past. She also has a known right renal atrophy and has followed with a retail business analyst at [facility]. She has also been seen by local urology and nephrology during previous hospitalizations. Patient has been afebrile, white count 10.9, creatinine 0.44. Urinalysis was cloudy, blood small , nitrate positive, leukoesterase large, RBCs 8, Rupa BC greater than 182 and bacteria many. Blood cultures status received and urine cultures in progress. Patient has been started on cefepime. Patient also presented with an INR of 6.9 secondary to Coumadin which she takes for paroxysmal atrial fibrillation. KUB was unremarkable. 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 Review of Systems All systems: negative Constitutional: Denies chills, Denies fatigue, Denies fever, Denies lethargy, Denies malaise, Denies poor appetite, Denies weakness, Denies weight loss Eyes: denies blurred vision, denies pain Ears, nose, mouth and throat: Denies dental pain, Denies dysphagia, Denies headache, Denies nasal congestion, Denies nasal discharge, Denies sore throat, Denies vertigo Cardiovascular: Denies chest pain, Denies shortness of breath Respiratory: Denies cough Gastrointestinal: Reports abdominal pain, Denies diarrhea, Denies loss of appetite, Denies nausea, Denies vomiting Genitourinary: Reports dysuria, Reports flank pain, Reports mixed incontinence, Reports urgency, Denies hematuria, Denies urinary frequency Musculoskeletal: Denies frequent falls, Denies gait dysfunction, Denies myalgias Integumentary: Denies pruritus, Denies rash, Denies wounds Neurological: Denies change in mentation, Denies confusion, Denies numbness, Denies weakness Psychiatric: Denies anxiety, Denies depression Endocrine: Denies fatigue, Denies weight change Past Medical History Past Medical History: GERD/Reflux, Hyperlipidemia, Hypertension Additional Past Medical History / Comment(s): hx urinary retention,right Nephrolithiasis, pt stated rt kidney non functioning", UTI's, patient reports she was once on insulin for diabetes but changed her diet and now does not take anything. occasional vertigo, and R arm fracture with surgery. no longer diabetic for over 2 years now. Bilateral AKA due to defect. 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 lithotripsy on left side Past Anesthesia/Blood Transfusion Reactions: No Reported Reaction Additional Past Anesthesia/Blood Transfusion Reaction / Comm: Pt received blood in 1978-no reaction reported. Past Psychological History: No Psychological Hx Reported Additional Psychological History / Comment(s): Pt has had anxiety and panic attacks in the past but states no longer a problem. She resides with her son in 2 story home -has ramp.. pt has bedroom on first floor. She is independent. She in a bilateral AKA and gets around in a power wheelchair. She has a hospital bed. She no longer drives but takes the bus. Pt has had [facility] home care in the past but not currently. Smoking Status: Current every day smoker Past Alcohol Use History: None Reported Additional Past Alcohol Use History / Comment(s): Patient smokes half a pack a day since she was 18 years of age but did quit for 4 years. No marijuana, illicit drug use or alcohol use. Patient lives at home and her son stays with her. She is currently from her . She is on disability. There is a dog in the home. No recent travel. Past Drug Use History: None Reported - Past Family History Father Family Medical History: Cancer, Myocardial Infarction (MT) Additional Family Medical History / Comment(s): Father had lung cancer-went into remission. He of a massive MT in his 60's Mother Family Medical History: Cancer Additional Family Medical History / Comment(s): Mother of lung cancer at age 54 yrs. Medications and Allergies Home Medications Medication Instructions Recorded Confirmed Type Fenofibrate 160 mg PO HS 11/15/15 10/30/18 History Losartan Potassium [Cozaar] 100 mg PO HS 11/15/15 10/30/18 History amLODIPine [Norvasc] 10 mg PO DAILY 03/08/17 10/30/18 History HYDROcodone/APAP 10-325MG [Uehling 1 tab PO Q6H PRN #120 tab 05/05/18 10/30/18 Rx 10-325] ALPRAZolam [Xanax] 0.5 mg PO HS 06/21/18 10/30/18 History Atorvastatin Calcium [Lipitor] 20 mg PO HS 06/21/18 10/30/18 History Morphine Sulfate ER [Ms Contin] 30 mg PO Q12HR 06/21/18 10/30/18 History cloNIDine HCL [Catapres] 0.1 mg PO BID 06/21/18 10/30/18 History Flecainide Acetate 100 mg PO Q12HR 10/14/18 10/30/18 History Ondansetron HCl [Zofran] 8 mg PO TID PRN 10/14/18 10/30/18 History Warfarin [Coumadin] 5 mg PO DAILY 10/14/18 10/30/18 History Cyclobenzaprine [Flexeril] 10 mg PO TID PRN 10/30/18 10/30/18 History Allergies Allergy/AdvReac Type Severity Reaction Status Date / Time sulfamethoxazole Allergy Itching Verified 10/30/18 13:39 [From Septra] trimethoprim [From Septra] Allergy Itching Verified 10/30/18 13:39 levofloxacin [From Levaquin] AdvReac Muscle Pain Verified 10/30/18 13:39 Physical Exam Vitals: Vital Signs Temp Pulse Pulse Resp BP BP BP 10/31/18 05:55 97.4 F L 78 20 159/89 10/31/18 00:00 20 10/30/18 21:40 98.1 F 63 20 165/80 10/30/18 15:00 97.2 F L 64 18 129/71 10/30/18 13:53 97.9 F 68 18 132/87 10/30/18 12:38 67 18 123/83 10/30/18 11:10 149/94 10/30/18 10:15 98.9 F 79 18 178/161 Pulse Ox 10/31/18 05:55 96 10/31/18 00:00 10/30/18 21:40 96 10/30/18 15:00 97 10/30/18 13:53 97 10/30/18 12:38 97 10/30/18 11:10 10/30/18 10:15 97 Intake and Output 10/30/18 10/31/18 10/31/18 22:59 06:59 14:59 Intake Total 100 Balance 100 Intake: Oral 100 Other: # Voids 3 0 # Bowel Movements 0 Gen: This is a 63-year-old obese female. Patient is eating her breakfast and appears to be comfortable and in no acute distress. HEENT: Head is atraumatic, normocephalic. Pupils equal, round. Sclerae is anicteric. Conjunctiva pink. Mucous members of the mouth are moist. No thrush noted. NECK: Supple. No JVD. No lymphadenopathy. No thyromegaly. LUNGS: Clear to auscultation. No wheezes or rhonchi. No intercostal retractions. HEART: Regular rate and rhythm. No murmur. ABDOMEN: Soft. Bowel sounds are present. No masses. Left upper quadrant te nderness and bilateral flank tenderness EXTREMITIES: Bilateral [id number] amputations NEUROLOGICAL: Patient is awake, alert and oriented x3. Cranial nerves 2 through 12 are grossly intact. Results Results: Laboratory Results WBC 10.9 k/uL (3.8-10.6) H 10/30/18 10:50 RBC 6.09 m/uL (3.80-5.40) H 10/30/18 10:50 Hgb 16.6 gm/dL (11.4-16.0) H 10/30/18 10:50 Hct 50.4 % (34.0-46.0) H 10/30/18 10:50 MCV 82.8 fL (80.0-100.0) 10/30/18 10:50 MCH 27.2 pg (25.0-35.0) 10/30/18 10:50 MCHC 32.9 g/dL (31.0-37.0) 10/30/18 10:50 RDW 15.5 % (11.5-15.5) 10/30/18 10:50 Plt Count 501 k/uL (150-450) H 10/30/18 10:50 Neutrophils % 67 % 10/30/18 10:50 Lymphocytes % 26 % 10/30/18 10:50 Monocytes % 4 % 10/30/18 10:50 Eosinophils % 2 % 10/30/18 10:50 Basophils % 1 % 10/30/18 10:50 Neutrophils # 7.2 k/uL (1.3-7.7) 10/30/18 10:50 Lymphocytes # 2.8 k/uL (1.0-4.8) 10/30/18 10:50 Monocytes # 0.4 k/uL (0-1.0) 10/30/18 10:50 Eosinophils # 0.2 k/uL (0-0.7) 10/30/18 10:50 Basophils # 0.1 k/uL (0-0.2) 10/30/18 10:50 PT 67.2 sec (9.0-12.0) H 10/30/18 10:50 INR 6.9 (<1.2) H* 10/30/18 10:50 APTT 64.0 sec (22.0-30.0) H 10/30/18 10:50 Sodium 143 mmol/L (137-145) 10/30/18 10:50 Potassium 4.1 mmol/L (3.5-5.1) 10/30/18 10:50 Chloride 113 mmol/L (98-107) H 10/30/18 10:50 Carbon Dioxide 19 mmol/L (22-30) L 10/30/18 10:50 Anion Gap 11 mmol/L 10/30/18 10:50 BUN 18 mg/dL (7-17) H 10/30/18 10:50 Creatinine 0.44 mg/dL (0.52-1.04) L 10/30/18 10:50 Est GFR (CKD-EPI)AfAm >90 (>60 ml/min/1.73 sqM) 10/30/18 10:50 Est GFR (CKD-EPI)NonAf >90 (>60 ml/min/1.73 sqM) 10/30/18 10:50 Glucose 122 mg/dL (74-99) H 10/30/18 10:50 Plasma Lactic Acid Joshua 1.1 mmol/L (0.7-2.0) 10/30/18 10:50 Calcium 9.8 mg/dL (8.4-10.2) 10/30/18 10:50 Total Bilirubin 0.6 mg/dL (0.2-1.3) 10/30/18 10:50 AST 32 U/L (14-36) 10/30/18 10:50 ALT 23 U/L (9-52) 10/30/18 10:50 Alkaline Phosphatase 64 U/L (38-126) 10/30/18 10:50 Total Protein 7.2 g/dL (6.3-8.2) 10/30/18 10:50 Albumin 4.0 g/dL (3.5-5.0) 10/30/18 10:50 Amylase 59 U/L (30-110) 10/30/18 10:50 Lipase 334 U/L (23-300) H 10/30/18 10:50 Urine Color Yellow 10/30/18 12:15 Urine Appearance Cloudy (Clear) H 10/30/18 12:15 Urine pH 6.0 (5.0-8.0) 10/30/18 12:15 Ur Specific Anita 1.021 (1.001-1.035) 10/30/18 12:15 Urine Protein 1+ (Negative) H 10/30/18 12:15 Urine Glucose (UA) Negative (Negative) 10/30/18 12:15 Urine Ketones Negative (Negative) 10/30/18 12:15 Urine Blood Small (Negative) H 10/30/18 12:15 Urine Nitrite Positive (Negative) H 10/30/18 12:15 Urine Bilirubin Negative (Negative) 10/30/18 12:15 Urine Urobilinogen <2.0 mg/dL (<2.0) 10/30/18 12:15 Ur Leukocyte Esterase Large (Negative) H 10/30/18 12:15 Urine RBC 8 /hpf (0-5) H 10/30/18 12:15 Urine WBC >182 /hpf (0-5) H 10/30/18 12:15 Urine WBC Clumps Few /hpf (None) H 10/30/18 12:15 Ur Squamous Epith Cells 2 /hpf (0-4) 10/30/18 12:15 Urine Bacteria Many /hpf (None) H 10/30/18 12:15 Urine Mucus Rare /hpf (None) H 10/30/18 12:15 CBC & Chem 7: 10/30/18 10:50 10/30/18 10:50 Labs: Abnormal Lab Results - Last 24 Hours (Table) 10/30/18 10/30/18 10/30/18 Range/Units 10:50 10:50 10:50 WBC 10.9 H (3.8-10.6) k/uL RBC 6.09 H (3.80-5.40) m/uL Hgb 16.6 H (11.4-16.0) gm/dL Hct 50.4 H (34.0-46.0) % Plt Count 501 H (150-450) k/uL PT 67.2 H (9.0-12.0) sec INR 6.9 H* (<1.2) APTT 64.0 H (22.0-30.0) sec Chloride 113 H (98-107) mmol/L Carbon Dioxide 19 L (22-30) mmol/L BUN 18 H (7-17) mg/dL Creatinine 0.44 L (0.52-1.04) mg/dL Glucose 122 H (74-99) mg/dL Lipase 334 H (23-300) U/L Urine Appearance (Clear) Urine Protein (Negative) Urine Blood (Negative) Urine Nitrite (Negative) Ur Leukocyte Esterase (Negative) Urine RBC (0-5) /hpf Urine WBC (0-5) /hpf Urine WBC Clumps (None) /hpf Urine Bacteria (None) /hpf Urine Mucus (None) /hpf 10/30/18 Range/Units 12:15 WBC (3.8-10.6) k/uL RBC (3.80-5.40) m/uL Hgb (11.4-16.0) gm/dL Hct (34.0-46.0) % Plt Count (150-450) k/uL PT (9.0-12.0) sec INR (<1.2) APTT (22.0-30.0) sec Chloride (98-107) mmol/L Carbon Dioxide (22-30) mmol/L BUN (7-17) mg/dL Creatinine (0.52-1.04) mg/dL Glucose (74-99) mg/dL Lipase (23-300) U/L Urine Appearance Cloudy H (Clear) Urine Protein 1+ H (Negative) Urine Blood Small H (Negative) Urine Nitrite Positive H (Negative) Ur Leukocyte Esterase Large H (Negative) Urine RBC 8 H (0-5) /hpf Urine WBC >182 H (0-5) /hpf Urine WBC Clumps Few H (None) /hpf Urine Bacteria Many H (None) /hpf Urine Mucus Rare H (None) /hpf Microbiology - Last 24 Hours (Table) 10/30/18 12:15 Urine Culture - Preliminary Urine,Voided Assessment and Plan Plan: This is a 63-year-old female who gives history of having kidney stones, atrophy of the right kidney, presents with left-sided abdominal and flank pain and urinary tract infection. Patient has history of having frequent urinary tract infections over the past 3 months with at least 3 courses of antibiotics. Patient is currently on cefepime. Blood cultures status received and urine culture is in progress. Renal ultrasound will be ordered. Further recommendations as patient progresses. The above dictated assessment and findings were discussed with Dr. Zavala. The impression and plan of care have been directed as dictated. Sherie Olivares nurse practitioner acting as scribe for Dr. Zavala.
[2018-10-31] MEDS: MORPHINE SULFATE ER 30 MG TABLET PO SCH ×2 (10:28→22:08)
--- NOTE | 2018-10-31 11:03 | US ---
EXAMINATION TYPE: US kidneys/renal and bladder DATE OF EXAM: 10/31/2018 COMPARISON: CT 2017, US 2016 CLINICAL HISTORY: UTI, kidney stones. UTI, history of kidney stones, left flank pain EXAM MEASUREMENTS: Right Kidney: 7.8 x 3.3 x 3.5 cm Left Kidney: 10.9 x 6.0 x 6.3 cm Difficult study due to patient body habitus Right Kidney: atrophic, 1.4cm echogenic focus inferior pole, 1.4cm cystic area superior pole Left Kidney: 0.8cm echogenic focus inferior pole Bladder: wnl Bilateral Jets seen: left jet seen IMPRESSION: Bilateral nephrolithiasis with no evidence of hydronephrosis. 1.4 cm hypoechoic nodule upper pole rig ht kidney stable from prior exam. Note is made the right kidney is markedly atrophic.
[2018-10-31 11:56] LABS: Basophils # (A) 0.1 k/uL (0-0.2); Basophils % (A) 1 %; Eosinophils # (A) 0.2 k/uL (0-0.7); Eosinophils % (A) 3 %; HCT 41.1 % (34.0-46.0); Lymphocytes # (A) 2.3 k/uL (1.0-4.8); Lymphocytes % (A) 33 %; MCH 27.4 pg (25.0-35.0); MCHC 32.4 g/dL (31.0-37.0); MCV 84.5 fL (80.0-100.0); Monocytes # (A) 0.4 k/uL (0-1.0); Monocytes % (A) 6 %; Neutrophils # (A) 3.8 k/uL (1.3-7.7); Neutrophils % (A) 55 %; Platelet Count 277 k/uL (150-450); RBC 4.87 m/uL (3.80-5.40); RDW 15.7 % (11.5-15.5); WBC 6.8 k/uL (3.8-10.6)
[2018-10-31 11:58] LABS: Anion Gap 7 mmol/L; Blood Urea Nitrogen 23 mg/dL (7-17); Calcium 8.7 mg/dL (8.4-10.2); Carbon Dioxide 19 mmol/L (22-30); Chloride 113 mmol/L (98-107); Glucose 106 mg/dL (74-99); Sodium 139 mmol/L (137-145)
[2018-10-31] MEDS: BISACODYL 5 MG TABLET.DR PO SCH (12:07)
[2018-10-31] MEDS: SODIUM CHLORIDE 0.9% 1,000 ML IV SCH (12:07)
[2018-10-31 12:11] LABS: INR 2.9 (<1.2); Prothrombin Time 28.3 sec (9.0-12.0)
[2018-10-31 12:18] LABS: HGB 13.3 gm/dL (11.4-16.0)
[2018-10-31] MEDS: ATORVASTATIN 20 MG TAB PO SCH (20:18)
[2018-10-31] MEDS: ALPRAZolam 0.5 MG TAB PO SCH (20:18)
[2018-10-31] MEDS: LOSARTAN 50 MG TAB PO SCH (20:18)
[2018-10-31] MEDS: FENOFIBRATE 160 MG TAB PO SCH (20:19)
--- NOTE | 2018-10-31 22:43 | P.CON ---
Consult Note - . Consult date: 10/31/18 Assessment/Plan:: This is a 63-year-old female presented to [facility] emergency center due to abdominal pain left sided abdominal pain and flank pain. She states it started at 3 AM on Wednesday after she had a bowel movement. She states she normally takes a stool softener every night due to constipation but she had 2 loose stools on Wednesday morning. The pain did not go away after she had a bowel movement. She does complain of incontinence of urine and possibly some discomfort with urination but she states that she does not have sensitivity to this. She thinks she has been drinking enough fluids but thinks her urine ou tput has been low. She has history of being treated with Macrodantin for 7 days 1 week ago and has had an ongoing urinary tract infection for 3 months. She completed at least 2 previous courses of antibiotics. She is known to have kidney stones and has undergone lithotripsy and right ureteral stent with removal in the past. She also has a known right renal atrophy and has followed with a repair cameraman at [facility]. She has also been seen by local urology and nephrology during previous hospitalizations. Patient has been afebrile, white count 10.9, creatinine 0.44. Urinalysis was cloudy, blood small, nitrate positive, leukoesterase large, RBCs 8, Rupa BC greater than 182 and bacteria many. Blood cultures status received and urine cultures in progress. Patient has been started on cefepime. Patient also presented with an INR of 6.9 secondary to Coumadin which she takes for paroxysmal atrial fibrillation. KUB was unremarkable. Patient does have bilateral [id number] amputations at age 6 due to defects.Please see the consult note is dictated by nurse practitioner Mariel Sherie Olivares. 63-year-old woman who presents to Hospital feeling poorly with significant back and flank pain. Review of the data reveals evidence of prior nephrolithiasis and has had stone removal in the past. Now presents with evidence of fever leukocytosis pyuria and recent positive urine culture for Klebsiella. Given the findings antibiotic therapy has been changed to cefepime which will be continued for now. However the pleasure of discussing the case with the urologist in to determine if there is any urological procedures that are required at this point in time or in the outpatient setting in the near future. Having multiple recent urinary infections brings concern for the possibility of infected stones. However there is no rivera hydronephrosis at this time but does have the nonfunctional right kidney. I agree with evaluation, assessment and plan as dictated by nurse practitioner Mrs. Sherie Olivares.
[2018-11-01] MEDS: HYDROmorphone 1 MG/ML 1 ML SYRINGE IVP PRN ×6 (02:24→19:56)
[2018-11-01] MEDS: CEFEPIME 2 GM in SODIUM CHLORIDE 0.9% 100 ML IVPB SCH ×3 (05:25→19:57)
--- NOTE | 2018-11-01 07:20 | P.HPIM ---
History of Present Illness H&P Date: 10/31/18 Chief Complaint: Left lower quadrant abdominal pain with recurrent and chronic UTI This is another admission a 63-year-old white female essentially with history of nephrolithiasis and chronic left lower abdominal pain with opiate dependence. The patient has had significant left lower quadrant abdominal pain with multiple consultations. She has nonobstructing ureterolithiasis. She has had multiple consultations including [facility] which is flummoxed as far as why she has continued pain. I do suspect this is related to her opiate dependence. She is now admitted for recurrent UTI with element of pyelonephritis. Review of Systems Constitutional: Denies chills, Denies fever Eyes: denies blurred vision, denies pain Ears, nose, mouth and throat: Denies headache, Denies sore throat Cardiovascular: Denies chest pain, Denies shortness of breath Genitourinary: Reports dysuria, Reports flank pain, Reports kidney stones, Reports pelvic pain Musculoskeletal: Denies myalgias Integumentary: Denies pruritus, Denies rash Neurological: Denies numbness, Denies weakness Past Medical History Past Medical History: GERD/Reflux, Hyperlipidemia, Hypertension Additional Past Medical History / Comment(s): hx urinary retention,right Nephrolithiasis, pt stated rt kidney non functioning", UTI's, patient reports she was once on insulin for diabetes but changed her diet and now does not take anything. occasional vertigo, and R arm fracture with surgery. no longer diabetic for over 2 years now double amputation lower extrmities, aka. 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 lithotripsy on left side Past Anesthesia/Blood Transfusion Reactions: No Reported Reaction Additional Past Anesthesia/Blood Transfusion Reaction / Comment(s): Pt received blood in 1978-no reaction reported. Past Psychological History: No Psychological Hx Reported Additional Psychological History / Comment(s): Pt has had anxiety and panic at tacks in the past but states no longer a problem. She resides with her son in 2 story home -has ramp.. pt has bedroom on first floor. She is independent. She in a bilateral AKA and gets around in a power wheelchair. She has a hospital bed. She no longer drives but takes the bus. Pt has had [facility] home care in the past but not currently. Smoking Status: Current every day smoker Past Alcohol Use History: None Reported Additional Past Alcohol Use History / Comment(s): Pt states she started smoking at age 18 yrs and the amount she smokes varies. Past Drug Use History: None Reported - Past Family History Father Family Medical History: Cancer, Myocardial Infarction ([place]) Additional Family Medical History / Comment(s): Father had lung cancer-went into remission. He of a massive [place] in his 60's Mother Family Medical History: Cancer Additional Family Medical History / Comment(s): Mother of lung cancer at age 54 yrs. Medications and Allergies Home Medications Medication Instructions Recorded Confirmed Type Fenofibrate 160 mg PO HS 11/15/15 10/30/18 History Losartan Potassium [Cozaar] 100 mg PO HS 11/15/15 10/30/18 History amLODIPine [Norvasc] 10 mg PO DAILY 03/08/17 10/30/18 History HYDROcodone/APAP 10-325MG [[place] 1 tab PO Q6H PRN #120 tab 05/05/18 10/30/18 Rx 10-325] ALPRAZolam [Xanax] 0.5 mg PO HS 06/21/18 10/30/18 History Atorvastatin Calcium [Lipitor] 20 mg PO HS 06/21/18 10/30/18 History Morphine Sulfate ER [Ms Contin] 30 mg PO Q12HR 06/21/18 10/30/18 History cloNIDine HCL [Catapres] 0.1 mg PO BID 06/21/18 10/30/18 History Flecainide Acetate 100 mg PO Q12HR 10/14/18 10/30/18 History Ondansetron HCl [Zofran] 8 mg PO TID PRN 10/14/18 10/30/18 History Warfarin [Coumadin] 5 mg PO DAILY 10/14/18 10/30/18 History Cyclobenzaprine [Flexeril] 10 mg PO TID PRN 10/30/18 10/30/18 History Allergies Allergy/AdvReac Type Severity Reaction Status Date / Time sulfamethoxazole Allergy Itching Verified 10/30/18 13:39 [From Aprra] trimethoprim [From Septra] Allergy Itching Verified 10/30/18 13:39 [facility] AdvReac Muscle Pain Verified 10/30/18 13:39 Physical Exam Vitals: Vital Signs Temp Pulse Pulse Resp BP BP BP 10/31/18 05:55 97.4 F L 78 20 159/89 10/31/18 00:00 20 10/30/18 21:40 98.1 F 63 20 165/80 10/30/18 15:00 97.2 F L 64 18 129/71 10/30/18 13:53 97.9 F 68 18 132/87 10/30/18 12:38 67 18 123/83 10/30/18 11:10 149/94 10/30/18 10:15 98.9 F 79 18 178/161 Pulse Ox 10/31/18 05:55 96 10/31/18 00:00 10/30/18 21:40 96 10/30/18 15:00 97 10/30/18 13:53 97 10/30/18 12:38 97 10/30/18 11:10 10/30/18 10:15 97 Intake and Output 10/30/18 10/31/18 10/31/18 22:59 06:59 14:59 Intake Total 100 Balance 100 Intake: Oral 100 Other: # Voids 3 0 # Bowel Movements 0 - Constitutional General appearance: obese - EENT Eyes: no abnormal pupil - Neck Neck: no lymphadenopathy - Respiratory Respiratory: bilateral: CTA - Cardiovascular Rhythm: irregularly irregular Abnormal Heart Sounds: no S3 Gallop - Gastrointestinal General gastrointestinal: soft, no tenderness - Integumentary Integumentary: no cellulitis - Psychiatric Psychiatric: A&O x's 3 Results CBC & Chem 7: 10/30/18 10:50 10/30/18 10:50 Labs: Abnormal Lab Results - Last 24 Hours (Table) 10/30/18 10/30/18 10/30/18 Range/Units 10:50 10:50 10:50 WBC 10.9 H (3.8-10.6) k/uL RBC 6.09 H (3.80-5.40) m/uL Hgb 16.6 H (11.4-16.0) gm/dL Hct 50.4 H (34.0-46.0) % Plt Count 501 H (150-450) k/uL PT 67.2 H (9.0-12.0) sec INR 6.9 H* (<1.2) APTT 64.0 H (22.0-30.0) sec Chloride 113 H (98-107) mmol/L Carbon Dioxide 19 L (22-30) mmol/L BUN 18 H (7-17) mg/dL Creatinine 0.44 L (0.52-1.04) mg/dL Glucose 122 H (74-99) mg/dL Lipase 334 H (23-300) U/L Urine Appearance (Clear) Urine Protein (Negative) Urine Blood (Negative) Urine Nitrite (Negative) Ur Leukocyte Esterase (Negative) Urine RBC (0-5) /hpf Urine WBC (0-5) /hpf Urine WBC Clumps (None) /hpf Urine Bacteria (None) /hpf Urine Mucus (None) /hpf 10/30/18 Range/Units 12:15 WBC (3.8-10.6) k/uL RBC (3.80-5.40) m/uL Hgb (11.4-16.0) gm/dL Hct (34.0-46.0) % Plt Count (150-450) k/uL PT (9.0-12.0) sec INR (<1.2) APTT (22.0-30.0) sec Chloride (98-107) mmol/L Carbon Dioxide (22-30) mmol/L BUN (7-17) mg/dL Creatinine (0.52-1.04) mg/dL Glucose (74-99) mg/dL Lipase (23-300) U/L Urine Appearance Cloudy H (Clear) Urine Protein 1+ H (Negative) Urine Blood Small H (Negative) Urine Nitrite Positive H (Negative) Ur Leukocyte Esterase Large H (Negative) Urine RBC 8 H (0-5) /hpf Urine WBC >182 H (0-5) /hpf Urine WBC Clumps Few H (None) /hpf Urine Bacteria Many H (None) /hpf Urine Mucus Rare H (None) /hpf Microbiology - Last 24 Hours (Table) 10/30/18 12:15 Urine Culture - Preliminary Urine,Voided Thrombosis Risk Factor Assmnt - Choose All That Apply Each Factor Represents 1 point: Obesity (BMI >25) Each Risk Factor Represents 2 Points: Age 61-74 years Thrombosis Risk Factor Assessment Total Risk Factor Score: 3 Thrombosis Risk Factor Assessment Level: Moderate Risk Assessment and Plan (1) Failure of outpatient treatment Current Visit: Yes Status: Acute Code(s): Z78.9 - OTHER SPECIFIED HEALTH STATUS SNOMED Code(s): 742073371 (2) Pyelonephritis Current Visit: Yes Status: Acute Code(s): N12 - TUBULO-INTERSTITIAL NEPHRITIS, NOT SPCF ACUTE OR CHRONIC SNOMED Code(s): 52466903 (3) Abdominal pain Current Visit: No Status: Acute Code(s): R10.9 - UNSPECIFIED ABDOMINAL PAIN SNOMED Code(s): 46629385 (4) History of nephrolithiasis Current Visit: No Status: Acute Code(s): Z87.442 - PERSONAL HISTORY OF URINARY CALCULI SNOMED Code(s): 146726541 (5) Intractable abdominal pain Current Visit: No Status: Acute Code(s): R10.9 - UNSPECIFIED ABDOMINAL PAIN SNOMED Code(s): 45369678 (6) UTI (urinary tract infection) Current Visit: No Status: Acute Code(s): N39.0 - URINARY TRACT INFECTION, SITE NOT SPECIFIED SNOMED Code(s): 52117996 Plan: Continue current regimen of antibiotic treatment. Again, I do suspect that her recurrence of UTI is somewhat chronic. Continue antibiotic treatment. Question need for urologic consultation if no better. I did I am concerned about her opiate dependence element. Time with Patient: Less than 30
[2018-11-01] MEDS: FLECAINIDE 50 MG TAB PO SCH ×2 (07:50→19:56)
[2018-11-01] MEDS: cloNIDine HCL 0.1 MG TAB PO SCH ×2 (07:51→19:56)
[2018-11-01] MEDS: MORPHINE SULFATE ER 30 MG TABLET PO SCH ×2 (07:51→19:56)
[2018-11-01] MEDS: amLODIPine 10 MG TAB PO SCH (07:52)
[2018-11-01] MEDS: PANTOPRAZOLE 40 MG TABLET PO SCH (07:52)
[2018-11-01] MEDS: BISACODYL 5 MG TABLET.DR PO SCH (07:52)
[2018-11-01] MEDS: ONDANSETRON 4 MG/2 ML VIAL IVP PRN ×2 (08:23→17:53)
[2018-11-01 11:47] LABS: ALT 23 U/L (9-52); AST 22 U/L (14-36); Alkaline Phosphatase 42 U/L (38-126); Anion Gap 6 mmol/L; Blood Urea Nitrogen 25 mg/dL (7-17); Calcium 8.8 mg/dL (8.4-10.2); Carbon Dioxide 25 mmol/L (22-30); Chloride 107 mmol/L (98-107); Glucose 97 mg/dL (74-99); Potassium 4.3 mmol/L (3.5-5.1); Sodium 138 mmol/L (137-145); Total Bilirubin 0.4 mg/dL (0.2-1.3); Total Protein 5.6 g/dL (6.3-8.2)
[2018-11-01 11:54] LABS: INR 1.5 (<1.2)
[2018-11-01 12:08] LABS: Anisocytosis Slight; Basophils # (A) 0.1 k/uL (0-0.2); Basophils % (A) 1 %; Eosinophils # (A) 0.2 k/uL (0-0.7); Eosinophils % (A) 3 %; HCT 37.5 % (34.0-46.0); HGB 12.9 gm/dL (11.4-16.0); Lymphocytes # (A) 3.2 k/uL (1.0-4.8); Lymphocytes % (A) 39 %; MCH 27.9 pg (25.0-35.0); MCHC 34.4 g/dL (31.0-37.0); MCV 81.1 fL (80.0-100.0); Mean Platelet Volume 8.4; Monocytes # (A) 0.5 k/uL (0-1.0); Monocytes % (A) 6 %; Neutrophils # (A) 4.1 k/uL (1.3-7.7); Neutrophils % (A) 50 %; Platelet Count 369 k/uL (150-450); RBC 4.62 m/uL (3.80-5.40); RDW 16.2 % (11.5-15.5); WBC 8.2 k/uL (3.8-10.6)
--- NOTE | 2018-11-01 12:55 | P.GSCN ---
History of Present Illness Consult date: 11/01/18 Reason for Consult: Kidney stone/chronic UTI History of present illness: The patient is a 63-year-old female admitted on 10/30/2018 for evaluation of severe left sided abdominal and flank pain. The pain reportedly began one or 2 days prior to that time and was associated with diarrhea and blood in the stool. At the time of admission the patient had an INR of 6.9 which has been treated with vitamin K. She no longer has blood in her stool and the diarrhea has subsided. The patient has a history of what she says are recurrent urinary tra ct infections which have been treated at least 4 or 5 times with antibiotics over the last several months. She was last treated with Macrobid 100 mg twice a day for a Klebsiella oxytocia urinary tract infection which was diagnosed on 10/14/2018. The patient says that she has no dysuria but sometimes strains to void. Straining to void worsens her left abdominal pain. She has a history of urge incontinence and has worn pull-ups for approximately 1 year. She says she usually voids every 4-6 hours during the day and has no nocturia. She denies any enuresis. Urinalysis at the time of admission suggested a urinary tract infection and urine culture is growing a gram-negative esra. The patient is currently on cefepime. Wound on 10/31 showed an atrophic right kidney with a 14 mm echogenic focus in the lower pole consistent with a nonobstructive calculus. The left kidney showed evidence of scarring but there was no evidence of hydronephrosis or stone present. The patient has a history of urolithiasis and had undergone percutaneous nephrostolithotomy for treatment of a left renal calculus at the [facility] in 05/2017. At that time she had a nonobstructive calculus in the l ower pole of the right kidney and it was elected not to treated as she was not symptomatic. Review of Systems - Constitutional Reports chronic pain, Denies chills, Denies fever - Gastrointestinal Reports as per HPI - Genitourinary Genitourinary: Reports as per HPI Past Medical History Past Medical History: GERD/Reflux, Hyperlipidemia, Hypertension Additional Past Medical History / Comment(s): hx urinary retention,right Nephrolithiasis, pt stated rt kidney non functioning", UTI's, patient reports she was once on insulin for diabetes but changed her diet and now does not take anything. occasional vertigo, and R arm fracture with surgery. no longer diabetic for over 2 years now double amputation lower extrmities, aka. 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 Past Anesthesia/Blood Transfusion Reactions: No Reported Reaction Additional Past Anesthesia/Blood Transfusion Reaction / Comm: Pt received blood in 1978-no reaction reported. Past Psychological History: No Psychological Hx Reported Additional Psychological History / Comment(s): Pt has had anxiety and panic attacks in the past but states no longer a problem. She resides with her son in 2 story home -has ramp.. pt has bedroom on first floor. She is independent. She in a bilateral AKA and gets around in a power wheelchair. She has a hospital bed. She no longer drives but takes the bus. Pt has had [facility] home care in the past but not currently. Smoking Status: Current every day smoker Past Alcohol Use History: None Reported Additional Past Alcohol Use History / Comment(s): Pt states she started smoking at age 18 yrs and the amount she smokes varies. Past Drug Use History: None Reported - Past Family History Father Family Medical History: Cancer, Myocardial Infarction ([place]) Additional Family Medical History / Comment(s): Father had lung cancer-went into remission. He of a massive [place] in his 60's Mother Family Medical History: Cancer Additional Family Medical History / Comment(s): Mother of lung cancer at age 54 yrs. Medications and Allergies Home Medications Medication Instructions Recorded Confirmed Type Fenofibrate 160 mg PO HS 11/15/15 10/30/18 History Losartan Potassium [Cozaar] 100 mg PO HS 11/15/15 10/30/18 History amLODIPine [Norvasc] 10 mg PO DAILY 03/08/17 10/30/18 History HYDROcodone/APAP 10-325MG [[place] 1 tab PO Q6H PRN #120 tab 05/05/18 10/30/18 Rx 10-325] ALPRAZolam [Xanax] 0.5 mg PO HS 06/21/18 10/30/18 History Atorvastatin Calcium [Lipitor] 20 mg PO HS 06/21/18 10/30/18 History Morphine Sulfate ER [Ms Contin] 30 mg PO Q12HR 06/21/18 10/30/18 History cloNIDine HCL [Catapres] 0.1 mg PO BID 06/21/18 10/30/18 History Flecainide Acetate 100 mg PO Q12HR 10/14/18 10/30/18 History Ondansetron HCl [Zofran] 8 mg PO TID PRN 10/14/18 10/30/18 History Warfarin [Coumadin] 5 mg PO DAILY 10/14/18 10/30/18 History Cyclobenzaprine [Flexeril] 10 mg PO TID PRN 10/30/18 10/30/18 History Allergies Allergy/AdvReac Type Severity Reaction Status Date / Time sulfamethoxazole Allergy Itching Verified 10/30/18 13:39 [From Septra] trimethoprim [From Septra] Allergy Itching Verified 10/30/18 13:39 levofloxacin [From Levaquin] AdvReac Muscle Pain Verified 10/30/18 13:39 Surgical - Exam Vital Signs Temp Pulse Resp BP Pulse Ox 98.9 F 79 18 178/161 97 10/30/18 10:15 10/30/18 10:15 10/30/18 10:15 10/30/18 10:15 10/30/18 10:15 - General moderate distress, obese - ENT no hearing loss - Neck no masses, no lymphadectomy - Respiratory normal respiratory effort - Abdomen Abdomen: soft, tender (Left abdomen and flank), no organomegaly Hernia: none - Musculoskeletal other (Previous bilateral above-knee amputation) - Psychiatric memory intact Results - Labs 11/01/18 11:16 11/01/18 11:16 Abnormal Lab Results - Last 24 Hours (Table) 11/01/18 11/01/18 11/01/18 Range/Units 11:16 11:16 11:16 RDW 16.2 H (11.5-15.5) % PT 15.0 H (9.0-12.0) sec INR 1.5 H (<1.2) BUN 25 H (7-17) mg/dL Total Protein 5.6 L (6.3-8.2) g/dL Albumin 3.0 L (3.5-5.0) g/dL Microbiology - Last 24 Hours (Table) 10/30/18 18:32 Blood Culture - Preliminary Blood No Growth after 24 hours 10/30/18 12:15 Urine Culture - Preliminary Urine,Voided Gram Neg Bacilli Diabetes panel 11/01/18 Range/Units 11:16 Sodium 138 (137-145) mmol/L Potassium 4.3 (3.5-5.1) mmol/L Chloride 107 (98-107) mmol/L Carbon Dioxide 25 (22-30) mmol/L BUN 25 H (7-17) mg/dL Creatinine 0.52 (0.52-1.04) mg/dL Glucose 97 (74-99) mg/dL Calcium 8.8 (8.4-10.2) mg/dL AST 22 (14-36) U/L ALT 23 (9-52) U/L Alkaline Phosphatase 42 (38-126) U/L Total Protein 5.6 L (6.3-8.2) g/dL Albumin 3.0 L (3.5-5.0) g/dL Calcium panel 11/01/18 Range/Units 11:16 Calcium 8.8 (8.4-10.2) mg/dL Albumin 3.0 L (3.5-5.0) g/dL Pituitary panel 11/01/18 Range/Units 11:16 Sodium 138 (137-145) mmol/L Potassium 4.3 (3.5-5.1) mmol/L Chloride 107 (98-107) mmol/L Carbon Dioxide 25 (22-30) mmol/L BUN 25 H (7-17) mg/dL Creatinine 0.52 (0.52-1.04) mg/dL Glucose 97 (74-99) mg/dL Calcium 8.8 (8.4-10.2) mg/dL Adrenal panel 11/01/18 Range/Units 11:16 Sodium 138 (137-145) mmol/L Potassium 4.3 (3.5-5.1) mmol/L Chloride 107 (98-107) mmol/L Carbon Dioxide 25 (22-30) mmol/L BUN 25 H (7-17) mg/dL Creatinine 0.52 (0.52-1.04) mg/dL Glucose 97 (74-99) mg/dL Calcium 8.8 (8.4-10.2) mg/dL Total Bilirubin 0.4 (0.2-1.3) mg/dL AST 22 (14-36) U/L ALT 23 (9-52) U/L Alkaline Phosphatase 42 (38-126) U/L Total Protein 5.6 L (6.3-8.2) g/dL Albumin 3.0 L (3.5-5.0) g/dL Assessment and Plan (1) Renal calculus, right Narrative/Plan: The patient has a history of a nonobstructive calculus in the lower pole of the right kidney. This was last clearly seen on a computed tomography scan dated 06/26/2018. Her most recent renal ultrasound shows no evidence for right hydronephrosis. There was no calculus noted in the left kidney at the time of the computed tomography scan in 06/2018. Urine cultures obtained from this hospital in 2018 were all either contaminated or showed no growth which reduces the likelihood that the right renal calculus is chronically infected. The patient had no urine cultures from [facility] in 2017 are 2018. It's unclear whether the patient has a persistent urinary tract infection or is developing reinfections with different organisms. Urine culture is pending and will hopefully clarify this. Postvoid residual should be checked as the patient has a history of incomplete bladder emptying at times. has seen the patient in the past and will follow-up with her. Current Visit: Yes Status: Acute Code(s): N20.0 - CALCULUS OF KIDNEY SNOMED Code(s): 26424569 Time with Patient: Greater than 30
[2018-11-01] MEDS: SODIUM CHLORIDE 0.9% 1,000 ML IV SCH (15:45)
[2018-11-01] MEDS: ATORVASTATIN 20 MG TAB PO SCH (19:56)
[2018-11-01] MEDS: FENOFIBRATE 160 MG TAB PO SCH (19:56)
[2018-11-01] MEDS: ALPRAZolam 0.5 MG TAB PO SCH (19:56)
[2018-11-01] MEDS: LOSARTAN 50 MG TAB PO SCH (19:57)
[2018-11-01] MEDS: HYDROcodone/APAP 10-325MG 1 EACH TAB PO PRN (23:50)
[2018-11-02] MEDS: HYDROmorphone 1 MG/ML 1 ML SYRINGE IVP PRN ×8 (01:51→23:58)
[2018-11-02] MEDS: CEFEPIME 2 GM in SODIUM CHLORIDE 0.9% 100 ML IVPB SCH ×3 (05:05→20:35)
[2018-11-02] MEDS: FLECAINIDE 50 MG TAB PO SCH ×2 (07:49→20:35)
[2018-11-02] MEDS: BISACODYL 5 MG TABLET.DR PO SCH (07:50)
[2018-11-02] MEDS: MORPHINE SULFATE ER 30 MG TABLET PO SCH ×2 (07:50→20:35)
[2018-11-02] MEDS: amLODIPine 10 MG TAB PO SCH (07:51)
[2018-11-02] MEDS: cloNIDine HCL 0.1 MG TAB PO SCH ×2 (07:51→20:35)
[2018-11-02] MEDS: PANTOPRAZOLE 40 MG TABLET PO SCH (07:51)
[2018-11-02 09:46] LABS: Basophils # (A) 0.1 k/uL (0-0.2); Basophils % (A) 1 %; Eosinophils # (A) 0.2 k/uL (0-0.7); Eosinophils % (A) 3 %; HCT 41.4 % (34.0-46.0); HGB 13.2 gm/dL (11.4-16.0); Lymphocytes # (A) 3.3 k/uL (1.0-4.8); Lymphocytes % (A) 39 %; MCH 27.2 pg (25.0-35.0); MCHC 31.9 g/dL (31.0-37.0); MCV 85.4 fL (80.0-100.0); Mean Platelet Volume 7.6; Monocytes # (A) 0.6 k/uL (0-1.0); Monocytes % (A) 7 %; Neutrophils # (A) 4.1 k/uL (1.3-7.7); Neutrophils % (A) 48 %; Platelet Count 356 k/uL (150-450); RBC 4.85 m/uL (3.80-5.40); RDW 15.5 % (11.5-15.5); WBC 8.5 k/uL (3.8-10.6)
[2018-11-02 10:15] LABS: ALT 30 U/L (9-52); AST 21 U/L (14-36); Albumin 3.2 g/dL (3.5-5.0); Alkaline Phosphatase 49 U/L (38-126); Anion Gap 7 mmol/L; Blood Urea Nitrogen 29 mg/dL (7-17); Calcium 9.1 mg/dL (8.4-10.2); Carbon Dioxide 21 mmol/L (22-30); Chloride 111 mmol/L (98-107); Glucose 108 mg/dL (74-99); Potassium 4.9 mmol/L (3.5-5.1); Sodium 139 mmol/L (137-145); Total Bilirubin 0.4 mg/dL (0.2-1.3); Total Protein 5.8 g/dL (6.3-8.2)
--- NOTE | 2018-11-02 10:30 | P.PN ---
Subjective Progress Note Date: 11/02/18 Principal diagnosis: Left lower quadrant abdominal pain with nonobstructing renal calculus. The patient is here essentially because of significant problems related to chronic left lower quadrant pain. Element of pyelonephritis is noted and she is now on cefepime. Objective - Vital Signs Vital signs: Vital Signs Temp 96.9 F L 11/02/18 05:18 Pulse 72 11/02/18 05:18 Resp 18 11/02/18 08:00 BP 167/72 11/02/18 05:18 Pulse Ox 96 11/02/18 05:18 Intake & Output 11/01/18 11/02/18 11/02/18 18:59 06:59 18:59 Intake Total 240 400 Output Total 920 Balance -680 400 Intake: Oral 240 400 Output: Urine 600 Post Void Residual 320 Other: Voiding Method Bedpan Bedpan Bedpan # Voids 3 2 # Bowel Movements 0 - Constitutional General appearance: Present: obese - EENT Eyes: Absent: abnormal pupil - Neck Neck: Absent: lymphadenopathy - Respiratory Respiratory: bilateral: CTA - Cardiovascular Rhythm: regular Heart sounds: normal: S1, S2 Abnormal Heart Sounds: Absent: S3 Gallop - Gastrointestinal General gastrointestinal: Present: soft. Absent: tenderness - Neurologic Neurologic: Present: CNII-XII intact - Musculoskeletal Musculoskeletal: Absent: generalized weakness - Labs CBC & Chem 7: 11/02/18 09:20 11/02/18 09:20 Labs: Abnormal Lab Results - Last 24 Hours (Table) 11/01/18 11/01/18 11/01/18 Range/Units 11:16 11:16 11:16 RDW 16.2 H (11.5-15.5) % PT 15.0 H (9.0-12.0) sec INR 1.5 H (<1.2) Chloride (98-107) mmol/L Carbon Dioxide (22-30) mmol/L BUN 25 H (7-17) mg/dL Glucose (74-99) mg/dL Total Protein 5.6 L (6.3-8.2) g/dL Albumin 3.0 L (3.5-5.0) g/dL 11/02/18 Range/Units 09:20 RDW (11.5-15.5) % PT (9.0-12.0) sec INR (<1.2) Chloride 111 H (98-107) mmol/L Carbon Dioxide 21 L (22-30) mmol/L BUN 29 H (7-17) mg/dL Glucose 108 H (74-99) mg/dL Total Protein 5.8 L (6.3-8.2) g/dL Albumin 3.2 L (3.5-5.0) g/dL Microbiology - Last 24 Hours (Table) 10/30/18 12:15 Urine Culture - Final Urine,Voided Klebsiella oxytoca 10/30/18 18:32 Blood Culture - Preliminary Blood No Growth after 48 hours Assessment and Plan (1) Failure of outpatient treatment Current Visit: Yes Status: Acute Code(s): Z78.9 - OTHER SPECIFIED HEALTH STATUS SNOMED Code(s): 017462650 (2) Pyelonephritis Current Visit: Yes Status: Acute Code(s): N12 - TUBULO-INTERSTITIAL NEPHRITIS, NOT SPCF ACUTE OR CHRONIC SNOMED Code(s): 49722376 (3) Abdominal pain Current Visit: No Status: Acute Code(s): R10.9 - UNSPECIFIED ABDOMINAL PAIN SNOMED Code(s): 53262773 (4) History of nephrolithiasis Current Visit: No Status: Acute Code(s): Z87.442 - PERSONAL HISTORY OF URINARY CALCULI SNOMED Code(s): 440823477 (5) Intractable abdominal pain Current Visit: No Status: Acute Code(s): R10.9 - UNSPECIFIED ABDOMINAL PAIN SNOMED Code(s): 99506475 (6) UTI (urinary tract infection) Current Visit: No Status: Acute Code(s): N39.0 - URINARY TRACT INFECTION, SITE NOT SPECIFIED SNOMED Code(s): 63129697 Plan: Continue IV antibiotic treatment for one more day. Check CBC and CMP in a.m. Anticipate discharge if Dr. Donnelly is not entertaining anything invasive
[2018-11-02 11:44] LABS: INR 1.2 (<1.2); Prothrombin Time 12.5 sec (9.0-12.0)
[2018-11-02] MEDS: SODIUM CHLORIDE 0.9% 1,000 ML IV SCH (14:20)
[2018-11-02] MEDS ORDERED: WARFARIN 5 MG TAB PO ONE (18:00)
[2018-11-02] MEDS: FENOFIBRATE 160 MG TAB PO SCH (20:35)
[2018-11-02] MEDS: ATORVASTATIN 20 MG TAB PO SCH (20:35)
[2018-11-02] MEDS: LOSARTAN 50 MG TAB PO SCH (20:35)
[2018-11-02] MEDS: ALPRAZolam 0.5 MG TAB PO SCH (20:35)
--- NOTE | 2018-11-03 00:28 | P.PN ---
Subjective Progress Note Date: 11/02/18 This is a 63-year-old female presented to [facility] emergency center due to abdominal pain left sided abdominal pain and flank pain. She states it started at 3 AM on Wednesday after she had a bowel movement. She states she normally takes a stool softener every night due to constipation but she had 2 loose stools on Wednesday morning. The pain did not go away after she had a bowel movement. She does complain of incontinence of urine and possibly some discomfort with urination but she states that she does not have sensitivity to this. She thinks she has been drinking enough fluids but thinks her urine output has been low. She has history of being treated with Macrodantin for 7 days 1 week ago and has had an ongoing urinary tract infection for 3 months. She completed at least 2 previous courses of antibiotics. She is known to have kidney stones and has undergone lithotripsy and right ureteral stent with removal in the past. She also has a known right renal atrophy and has followed with a technician anatomic pathology at [facility]. She has also been seen by local urology and nephrology during previous hospitalizations. Patient has been afebrile, white count 10.9, creatinine 0.44. Urinalysis was cloudy, blood small, nitrate positive, leukoesterase large, RBCs 8, Rupa BC greater than 182 and bacteria many. Blood cultures status received and urine cultures in progress. Patient has been started on cefepime. Patient also presented with an INR of 6.9 secondary to Coumadin which she takes for paroxysmal atrial fibrillation. KUB was unremarkable. 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 11/02/2018 patient continues to feel poorly. She continues abdominal pain related to be a level of the 9 or at 10 despite pain medications. She is not having fevers chills or rigors. There is evidence of urological evaluation without stated need of surgical intervention at this time. Urine culture is available with evidence of Klebsiella oxytoca. Patient relates that she has been treated [facility] in the past. We've asked for information that can be related to the local urologist. Objective - Vital Signs Vital signs: Vital Signs Temp 98.8 F 11/02/18 13:35 Pulse 71 11/02/18 13:35 Resp 16 11/02/18 15:00 BP 168/73 11/02/18 13:35 Pulse Ox 95 11/02/18 13:35 Intake & Output 11/02/18 11/02/18 11/03/18 06:59 18:59 06:59 Intake Total 400 1200 Balance 400 1200 Intake: Oral 400 1200 Other: Voiding Method Bedpan Bedpan Bedpan # Voids 2 2 - Exam Gen: This is a 63-year-old obese female. Patient eating dinner and complains of severe pain but no nausea or emesis HEENT: Head is atraumatic, normocephalic. Pupils equal, round. Sclerae is anicteric. Conjunctiva pink. Mucous members of the mouth are moist. No thrush noted. NECK: Supple. No JVD. No lymphadenopathy. No thyromegaly. LUNGS: Clear to auscultation. No wheezes or rhonchi. No intercostal retractions. HEART: Regular rate and rhythm. No murmur. ABDOMEN: Soft. Bowel sounds are present. No masses. Left upper quadrant tenderness and bilateral flank tenderness EXTREMITIES: Bilateral [id number] amputations NEUROLOGICAL: Patient is awake, alert and oriented x3. - Labs CBC & Chem 7: 11/02/18 09:20 11/02/18 09:20 Labs: Abnormal Lab Results - Last 24 Hours (Table) 11/02/18 11/02/18 Range/Units 09:20 11:06 PT 12.5 H (9.0-12.0) sec INR 1.2 H (<1.2) Chloride 111 H (98-107) mmol/L Carbon Dioxide 21 L (22-30) mmol/L BUN 29 H (7-17) mg/dL Glucose 108 H (74-99) mg/dL Total Protein 5.8 L (6.3-8.2) g/dL Albumin 3.2 L (3.5-5.0) g/dL Microbiology - Last 24 Hours (Table) 10/30/18 18:32 Blood Culture - Preliminary Blood No Growth after 72 hours 10/30/18 12:15 Urine Culture - Final Urine,Voided Klebsiella oxytoca Laboratory Results WBC 8.5 k/uL (3.8-10.6) 11/02/18 09:20 RBC 4.85 m/uL (3.80-5.40) 11/02/18 09:20 Hgb 13.2 gm/dL (11.4-16.0) 11/02/18 09:20 Hct 41.4 % (34.0-46.0) 11/02/18 09:20 MCV 85.4 fL (80.0-100.0) 11/02/18 09:20 MCH 27.2 pg (25.0-35.0) 11/02/18 09:20 MCHC 31.9 g/dL (31.0-37.0) 11/02/18 09:20 RDW 15.5 % (11.5-15.5) 11/02/18 09:20 Plt Count 356 k/uL (150-450) 11/02/18 09:20 Neutrophils % 48 % 11/02/18 09:20 Lymphocytes % 39 % 11/02/18 09:20 Monocytes % 7 % 11/02/18 09:20 Eosinophils % 3 % 11/02/18 09:20 Basophils % 1 % 11/02/18 09:20 Neutrophils # 4.1 k/uL (1.3-7.7) 11/02/18 09:20 Lymphocytes # 3.3 k/uL (1.0-4.8) 11/02/18 09:20 Monocytes # 0.6 k/uL (0-1.0) 11/02/18 09:20 Eosinophils # 0.2 k/uL (0-0.7) 11/02/18 09:20 Basophils # 0.1 k/uL (0-0.2) 11/02/18 09:20 Anisocytosis Slight 11/01/18 11:16 PT 12.5 sec (9.0-12.0) H 11/02/18 11:06 INR 1.2 (<1.2) H 11/02/18 11:06 APTT 64.0 sec (22.0-30.0) H 10/30/18 10:50 Sodium 139 mmol/L (137-145) 11/02/18 09:20 Potassium 4.9 mmol/L (3.5-5.1) 11/02/18 09:20 Chloride 111 mmol/L (98-107) H 11/02/18 09:20 Carbon Dioxide 21 mmol/L (22-30) L 11/02/18 09:20 Anion Gap 7 mmol/L 11/02/18 09:20 BUN 29 mg/dL (7-17) H 11/02/18 09:20 Creatinine 0.52 mg/dL (0.52-1.04) 11/02/18 09:20 Est GFR (CKD-EPI)AfAm >90 (>60 ml/min/1.73 sqM) 11/02/18 09:20 Est GFR (CKD-EPI)NonAf >90 (>60 ml/min/1.73 sqM) 11/02/18 09:20 Glucose 108 mg/dL (74-99) H 11/02/18 09:20 Plasma Lactic Acid Joshua 1.1 mmol/L (0.7-2.0) 10/30/18 10:50 Calcium 9.1 mg/dL (8.4-10.2) 11/02/18 09:20 Total Bilirubin 0.4 mg/dL (0.2-1.3) 11/02/18 09:20 AST 21 U/L (14-36) 11/02/18 09:20 ALT 30 U/L (9-52) 11/02/18 09:20 Alkaline Phosphatase 49 U/L (38-126) 11/02/18 09:20 Total Protein 5.8 g/dL (6.3-8.2) L 11/02/18 09:20 Albumin 3.2 g/dL (3.5-5.0) L 11/02/18 09:20 Amylase 59 U/L (30-110) 10/30/18 10:50 Lipase 334 U/L (23-300) H 10/30/18 10:50 Urine Color Yellow 10/30/18 12:15 Urine Appearance Cloudy (Clear) H 10/30/18 12:15 Urine pH 6.0 (5.0-8.0) 10/30/18 12:15 Ur Specific [place] 1.021 (1.001-1.035) 10/30/18 12:15 Urine Protein 1+ (Negative) H 10/30/18 12:15 Urine Glucose (UA) Negative (Negative) 10/30/18 12:15 Urine Ketones Negative (Negative) 10/30/18 12:15 Urine Blood Small (Negative) H 10/30/18 12:15 Urine Nitrite Positive (Negative) H 10/30/18 12:15 Urine Bilirubin Negative (Negative) 10/30/18 12:15 Urine Urobilinogen <2.0 mg/dL (<2.0) 10/30/18 12:15 Ur Leukocyte Esterase Large (Negative) H 10/30/18 12:15 Urine RBC 8 /hpf (0-5) H 10/30/18 12:15 Urine WBC >182 /hpf (0-5) H 10/30/18 12:15 Urine WBC Clumps Few /hpf (None) H 10/30/18 12:15 Ur Squamous Epith Cells 2 /hpf (0-4) 10/30/18 12:15 Urine Bacteria Many /hpf (None) H 10/30/18 12:15 Urine Mucus Rare /hpf (None) H 10/30/18 12:15 Microbiology 10/30/18 18:32 Blood Blood Culture - Preliminary No Growth after 72 hours 10/30/18 12:15 Urine,Voided Urine Culture - Final Klebsiella oxytoca Assessment and Plan (1) Abdominal pain Current Visit: No Status: Acute Code(s): R10.9 - UNSPECIFIED ABDOMINAL PAIN SNOMED Code(s): 26293535 (2) Klebsiella infection Narrative/Plan: 63-year-old woman with multiple medical troubles who was treated in the outpatient setting for urinary tract infection. Despite treatment was still ill and has now been admitted to hospital. She was receiving 2 units antibiotic therapy with some improvement but still complains of severe pain. She relates that urology told her to be able to help her and she does not understand why they've not offered her surgical procedure. There noticed clear that there is no obstruction or need for acute stone removal or stent placement like she needed in the past. I have asked her to provide in [facility] data to the urologist to see if this cannot help with planning. At this time she does have the Klebsiella oxytoca and this can be treated with doxycycline when she is ready for discharge to home. There is no evidence of bacteremia or obstructive disease, would not need outpatient intravenous antibiotic therapy. Current Visit: Yes Status: Acute Code(s): A49.8 - OTHER BACTERIAL INFECTIONS OF UNSPECIFIED SITE SNOMED Code(s): 633576382
[2018-11-03] MEDS: HYDROmorphone 1 MG/ML 1 ML SYRINGE IVP PRN ×2 (05:35→08:21)
[2018-11-03] MEDS: CEFEPIME 2 GM in SODIUM CHLORIDE 0.9% 100 ML IVPB SCH ×2 (05:35→12:17)
--- NOTE | 2018-11-03 08:03 | P.DS ---
Providers Date of admission: 11/02/18 07:48 Attending physician: Dick Nguyen Consults: 10/30/18 13:27 Consult Physician Urgent Consulting Provider: Pavel Zavala Consult Reason/Comments: Recurrent UTI Do you want consulting provider notified?: Yes 10/31/18 17:43 Consult Physician Routine Consulting Provider: Jaydon Donnelly Consult Reason/Comments: sepsis, nephrolithiasis Do you want consulting provider notified?: Yes, Notify in am Primary care physician: Dick Nguyen - Discharge Diagnosis(es) (1) Failure of outpatient treatment Current Visit: Yes Status: Acute (2) Pyelonephritis Current Visit: Yes Status: Acute (3) Abdominal pain Current Visit: No Status: Acute (4) History of nephrolithiasis Current Visit: No Status: Acute (5) Intractable abdominal pain Current Visit: No Status: Acute (6) UTI (urinary tract infection) Current Visit: No Status: Acute Hospital Course: This discharge summary 63-year-old white female essentially admitted for recurrent UTI. She has not checked nephrolithiasis and has element of chronic opiate dependence. The patient was stabilized with infectious disease consultation she had element of Klebsiella oxytoca. The patient was placed on cefepime and doxycycline for appropriate treatment. Once cleared by urology she will be discharged in stable condition to follow-up with me in approximately 3-5 days. Patient Condition at Discharge: Stable Plan - Discharge Summary Discharge Rx Participant: No New Discharge Prescriptions: New Doxycycline [Vibramycin] 100 mg PO BID #14 cap Continue Losartan Potassium [Cozaar] 100 mg PO HS Fenofibrate 160 mg PO HS amLODIPine [Norvasc] 10 mg PO DAILY HYDROcodone/APAP 10-325MG [[place] 10-325] 1 tab PO Q6H PRN #120 tab PRN Reason: MODERATE Pain Atorvastatin Calcium [Lipitor] 20 mg PO HS Morphine Sulfate ER [Ms Contin] 30 mg PO Q12HR ALPRAZolam [Xanax] 0.5 mg PO HS cloNIDine HCL [Catapres] 0.1 mg PO BID Warfarin [Coumadin] 5 mg PO DAILY Ondansetron HCl [Zofran] 8 mg PO TID PRN PRN Reason: Nausea Flecainide Acetate 100 mg PO Q12HR Cyclobenzaprine [Flexeril] 10 mg PO TID PRN PRN Reason: Spasms Discharge Medication List Fenofibrate 160 mg PO HS 11/15/15 [History] Losartan Potassium [Cozaar] 100 mg PO HS 11/15/15 [History] amLODIPine [Norvasc] 10 mg PO DAILY 03/08/17 [History] HYDROcodone/APAP 10-325MG [[place] 10-325] 1 tab PO Q6H PRN #120 tab 05/05/18 [Rx] ALPRAZolam [Xanax] 0.5 mg PO HS 06/21/18 [History] Atorvastatin Calcium [Lipitor] 20 mg PO HS 06/21/18 [History] Morphine Sulfate ER [Ms Contin] 30 mg PO Q12HR 06/21/18 [History] cloNIDine HCL [Catapres] 0.1 mg PO BID 06/21/18 [History] Flecainide Acetate 100 mg PO Q12HR 10/14/18 [History] Ondansetron HCl [Zofran] 8 mg PO TID PRN 10/14/18 [History] Warfarin [Coumadin] 5 mg PO DAILY 10/14/18 [History] Cyclobenzaprine [Flexeril] 10 mg PO TID PRN 10/30/18 [History] Doxycycline [Vibramycin] 100 mg PO BID #14 cap 11/03/18 [Rx] Follow up Appointment(s)/Referral(s): Dick Nguyen MD [Primary Care Provider] - 3 Days Discharge Disposition: HOME SELF-CARE
[2018-11-03] MEDS: PANTOPRAZOLE 40 MG TABLET PO SCH (08:16)
[2018-11-03] MEDS: amLODIPine 10 MG TAB PO SCH (08:16)
[2018-11-03] MEDS: cloNIDine HCL 0.1 MG TAB PO SCH (08:16)
[2018-11-03] MEDS: BISACODYL 5 MG TABLET.DR PO SCH (08:16)
[2018-11-03] MEDS: MORPHINE SULFATE ER 30 MG TABLET PO SCH (08:16)
[2018-11-03] MEDS: ONDANSETRON 4 MG/2 ML VIAL IVP PRN (08:17)
[2018-11-03] MEDS: FLECAINIDE 50 MG TAB PO SCH (08:17)
[2018-11-03 10:26] LABS: HCT 37.6 % (34.0-46.0); HGB 12.5 gm/dL (11.4-16.0); MCH 27.3 pg (25.0-35.0); MCHC 33.2 g/dL (31.0-37.0); MCV 82.2 fL (80.0-100.0); Mean Platelet Volume 8.1; Platelet Count 394 k/uL (150-450); RBC 4.57 m/uL (3.80-5.40); RDW 15.5 % (11.5-15.5); WBC 8.9 k/uL (3.8-10.6)
[2018-11-03 11:02] LABS: ALT 27 U/L (9-52); AST 21 U/L (14-36); Albumin 3.2 g/dL (3.5-5.0); Alkaline Phosphatase 52 U/L (38-126); Anion Gap 8 mmol/L; Blood Urea Nitrogen 27 mg/dL (7-17); Calcium 9.4 mg/dL (8.4-10.2); Carbon Dioxide 28 mmol/L (22-30); Chloride 105 mmol/L (98-107); Glucose 151 mg/dL (74-99); Potassium 4.5 mmol/L (3.5-5.1); Sodium 141 mmol/L (137-145); Total Bilirubin 0.4 mg/dL (0.2-1.3); Total Protein 5.8 g/dL (6.3-8.2)
[2018-11-03 11:04] LABS: INR 1.2 (<1.2); Prothrombin Time 12.2 sec (9.0-12.0)
[2018-11-03] MEDS: HYDROcodone/APAP 10-325MG 1 EACH TAB PO PRN (12:16)
[2018-11-03 13:12] VITALS: BP 154/70; PULSE 78; RESP 20; TEMP 99.2
[2018-11-03] MEDS: SODIUM CHLORIDE 0.9% 1,000 ML IV SCH (14:17)
[2018-11-03] MEDS ORDERED: WARFARIN 5 MG TAB PO ONE (18:00)
== END 2018-11-03 14:23 | disposition home or self-care (01) | DRG 690 ==
LOC: EC 10:14 → 6PED 13:28 → 4MS4W 13:47 → OBSVTOIN 11-02 07:48
PROVIDERS: ADMIT Family Medicine; ATTEND Family Medicine
DX: N12 Tubulo-interstitial nephritis, not specified as acute or chronic (principal); F11.20 Opioid dependence, uncomplicated; I48.0 Paroxysmal atrial fibrillation; B96.1 Klebsiella pneumoniae [K. pneumoniae] as the cause of diseases classified elsewhere; E11.9 Type 2 diabetes mellitus without complications; E78.5 Hyperlipidemia, unspecified; N20.0 Calculus of kidney; N39.41 Urge incontinence; N26.1 Atrophy of kidney (terminal); K21.9 Gastro-esophageal reflux disease without esophagitis; N28.9 Disorder of kidney and ureter, unspecified; I10 Essential (primary) hypertension; K59.00 Constipation, unspecified; R79.1 Abnormal coagulation profile; T45.515A Adverse effect of anticoagulants, initial encounter; F41.0 Panic disorder [episodic paroxysmal anxiety]; M19.90 Unspecified osteoarthritis, unspecified site; F17.200 Nicotine dependence, unspecified, uncomplicated; Z71.6 Tobacco abuse counseling; Z79.01 Long term (current) use of anticoagulants; Z79.899 Other long term (current) drug therapy; Z87.440 Personal history of urinary (tract) infections; Z87.442 Personal history of urinary calculi; Z90.49 Acquired absence of other specified parts of digestive tract; Z98.891 History of uterine scar from previous surgery; Z89.611 Acquired absence of right leg above knee; Z89.612 Acquired absence of left leg above knee; Z98.1 Arthrodesis status; Z90.722 Acquired absence of ovaries, bilateral; Z90.710 Acquired absence of both cervix and uterus; Z88.1 Allergy status to other antibiotic agents; Z88.2 Allergy status to sulfonamides; Z82.49 Family history of ischemic heart disease and other diseases of the circulatory system; Z80.1 Family history of malignant neoplasm of trachea, bronchus and lung
CPT/HCPCS: 36415; 74018; 76770; 80048; 80053; 81001; 82150; 83605; 83690; 85025; 85027; 85610; 85730; 87040; 87077; 87086; 87186; 96361; 96365; 96375; 99285

== ENCOUNTER → 2019-01-18 | Outpatient (CLI) | payer OTHER ==
[2019-01-18 15:14] LABS: INR 3.2 (<1.2); Prothrombin Time 30.9 sec (9.0-12.0)
== END | disposition home or self-care (01) ==
LOC: LABWHC1 14:21
PROVIDERS: ATTEND Family Medicine
DX: I48.0 Paroxysmal atrial fibrillation (principal)
CPT/HCPCS: 36415; 85610

== ENCOUNTER 2019-03-16 16:27 | Observation (INO) | payer OTHER ==
[2019-03-16] MEDS ORDERED: ASPIRIN 81 MG PO STA (16:36)
[2019-03-16] MEDS ORDERED: NITROGLYCERIN SL TABS 0.4 MG TAB SUBLINGUAL STA ×3 (16:36)
--- NOTE | 2019-03-16 16:40 | ED ---
General Adult HPI - General Stated complaint: CHEST PAIN Time Seen by Provider: 03/16/19 16:31 Source: patient, EMS, RN notes reviewed Mode of arrival: EMS Limitations: physical limitation - History of Present Illness Initial comments: Patient is a pleasant 63-year-old female presenting to the emergency department by EMS for chest discomfort. Onset of symptoms was within the past hour or 2. Patient did take nitroglycerin with temporary improvement of symptoms. Discomfort has returned. Discomfort is anterior chest. Patient has a difficult time describing discomfort. Patient states discomfort is positional and also increases with deep breaths. Patient has had cough for the past couple of months. Patient does have some associated shortness breath. Patient does have some nausea. No diaphoresis. Patient does have cardiac history however is unclear symptoms are similar or not. Patient states she normally takes Douglass and morphine at home and requests something stronger than that. - Related Data Home Medications Medication Instructions Recorded Confirmed Fenofibrate 160 mg PO HS 11/15/15 03/16/19 Losartan Potassium [Cozaar] 100 mg PO HS 11/15/15 03/16/19 amLODIPine [Norvasc] 10 mg PO DAILY 03/08/17 03/16/19 Atorvastatin Calcium [Lipitor] 20 mg PO HS 06/21/18 03/16/19 Morphine Sulfate ER [Ms Contin] 30 mg PO Q12HR 06/21/18 03/16/19 cloNIDine HCL [Catapres] 0.1 mg PO BID 06/21/18 03/16/19 Flecainide Acetate 100 mg PO Q12HR 10/14/18 03/16/19 Ondansetron HCl [Zofran] 8 mg PO TID PRN 10/14/18 03/16/19 ALPRAZolam [Xanax] 0.5 mg PO BID 01/20/19 03/16/19 Metoprolol Tartrate [Lopressor] 50 mg PO BID 01/20/19 03/16/19 Omeprazole [PriLOSEC] 20 mg PO DAILY 01/20/19 03/16/19 Warfarin [Coumadin] 2 mg PO HS 01/20/19 03/16/19 Nitroglycerin Sl Tabs [Nitrostat] 0.4 mg SUBLINGUAL Q5M PRN 03/16/19 03/16/19 Previous Rx's Medication Instructions Recorded HYDROcodone/APAP 10-325MG [[place] 1 tab PO Q6H PRN #120 tab 05/05/18 10-325] Allergies Allergy/AdvReac Type Severity Reaction Status Date / Time sulfamethoxazole Allergy Itching Verified 03/16/19 17:28 [From Septra] trimethoprim [From Septra] Allergy Itching Verified 03/16/19 17:28 levofloxacin [From Levaquin] AdvReac Muscle Pain Verified 03/16/19 17:28 Review of Systems ROS Statement: Those systems with pertinent positive or pertinent negative responses have been documented in the HPI. ROS Other: All systems not noted in ROS Statement are negative. Constitutional: Denies: fever Eyes: Denies: eye pain ENT: Denies: ear pain Respiratory: Reports: cough, dyspnea Cardiovascular: Reports: chest pain Endocrine: Denies: fatigue Gastrointestinal: Reports: nausea. Denies: abdominal pain Genitourinary: Denies: dysuria Musculoskeletal: Denies: back pain Skin: Denies: rash Neurological: Denies: headache Psychiatric: Denies: anxiety Past Medical History Past Medical History: GERD/Reflux, Hyperlipidemia, Hypertension Additional Past Medical History / Comment(s): hx urinary retention,right Nephrolithiasis, pt stated rt kidney non functioning", UTI's, patient reports she was once on insulin for diabetes but changed her diet and now does not take anything. occasional vertigo, and R arm fracture with surgery. no longer diabet ic for over 2 years now double amputation lower extrmities, aka. 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 Past Anesthesia/Blood Transfusion Reactions: No Reported Reaction Additional Past Anesthesia/Blood Transfusion Reaction / Comment(s): Pt received blood in 1978-no reaction reported. Past Psychological History: No Psychological Hx Reported Additional Psychological History / Comment(s): Pt has had anxiety and panic attacks in the past but states no longer a problem. She resides with her son in 2 story home -has ramp.. pt has bedroom on first floor. She is independent. She in a bilateral AKA and gets around in a power wheelchair. She has a hospital bed. She no longer drives but takes the bus. Pt has had [facility] home care in the past but not currently. Smoking Status: Current every day smoker Past Alcohol Use History: None Reported Additional Past Alcohol Use History / Comment(s): Pt states she started smoking at age 18 yrs and the amount she smokes varies. Past Drug Use History: None Reported - Past Family History Father Family Medical History: Cancer, Myocardial Infarction (CO) Additional Family Medical History / Comment(s): Father had lung cancer-went into remission. He of a massive CO in his 60's Mother Family Medical History: Cancer Additional Family Medical History / Comment(s): Mother of lung cancer at age 54 yrs. General Exam Limitations: physical limitation General appearance: alert Head exam: Present: atraumatic, normocephalic Eye exam: Present: normal appearance, PERRL ENT exam: Present: normal oropharynx, TM's normal bilaterally Neck exam: Present: normal inspection Respiratory exam: Present: normal lung sounds bilaterally, chest wall tenderness Cardiovascular Exam: Present: regular rate, normal rhythm Expanded Peripheral pulses: 2+: Radial (R), Radial (L), Femoral (R), Femoral (L) GI/Abdominal exam: Present: soft. 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 MO 174. QRS 78. QT 380. QTC 443 per left axis. Left anterior fascicular block. Poor R-wave progression. No acute ST change. Medical Decision Making - Medical Decision Making Patient reevaluated without improvement of symptoms. Patient and family updated on results and plan. Case was discussed with Dr. Nguyen, who will admit his patient. - Lab Data Result diagrams: 03/16/19 17:10 03/16/19 18:07 Lab Results 03/16/19 03/16/19 03/16/19 Range/Units 17:10 17:10 17:10 WBC 11.9 H (3.8-10.6) k/uL RBC 5.23 (3.80-5.40) m/uL Hgb 15.0 (11.4-16.0) gm/dL Hct 44.3 (34.0-46.0) % MCV 84.8 (80.0-100.0) fL MCH 28.6 (25.0-35.0) pg MCHC 33.7 (31.0-37.0) g/dL RDW 15.1 (11.5-15.5) % Plt Count 510 H (150-450) k/uL Neutrophils % 72 % Lymphocytes % 19 % Monocytes % 6 % Eosinophils % 2 % Basophils % 1 % Neutrophils # 8.6 H (1.3-7.7) k/uL Lymphocytes # 2.2 (1.0-4.8) k/uL Monocytes # 0.7 (0-1.0) k/uL Eosinophils # 0.2 (0-0.7) k/uL Basophils # 0.1 (0-0.2) k/uL PT 35.6 H (9.0-12.0) sec INR 3.7 H (<1.2) APTT 53.1 H (22.0-30.0) sec D-Dimer 0.43 (<0.60) mg/L FEU Sodium (137-145) mmol/L Potassium (3.5-5.1) mmol/L Chloride (98-107) mmol/L Carbon Dioxide (22-30) mmol/L Anion Gap mmol/L BUN (7-17) mg/dL Creatinine (0.52-1.04) mg/dL Est GFR (CKD-EPI)AfAm (>60 ml/min/1.73 sqM) Est GFR (CKD-EPI)NonAf (>60 ml/min/1.73 sqM) Glucose (74-99) mg/dL Calcium (8.4-10.2) mg/dL Magnesium (1.6-2.3) mg/dL Total Bilirubin (0.2-1.3) mg/dL AST (14-36) U/L ALT (9-52) U/L Alkaline Phosphatase (38-126) U/L Troponin I (0.000-0.034) ng/mL NT-Pro-B Natriuret Pep 710 pg/mL Total Protein (6.3-8.2) g/dL Albumin (3.5-5.0) g/dL Amylase (30-110) U/L Lipase (23-300) U/L 03/16/19 03/16/19 Range/Units 18:07 18:07 WBC (3.8-10.6) k/uL RBC (3.80-5.40) m/uL Hgb (11.4-16.0) gm/dL Hct (34.0-46.0) % MCV (80.0-100.0) fL MCH (25.0-35.0) pg MCHC (31.0-37.0) g/dL RDW (11.5-15.5) % Plt Count (150-450) k/uL Neutrophils % % Lymphocytes % % Monocytes % % Eosinophils % % Basophils % % Neutrophils # (1.3-7.7) k/uL Lymphocytes # (1.0-4.8) k/uL Monocytes # (0-1.0) k/uL Eosinophils # (0-0.7) k/uL Basophils # (0-0.2) k/uL PT (9.0-12.0) sec INR (<1.2) APTT (22.0-30.0) sec D-Dimer (<0.60) mg/L FEU Sodium 140 (137-145) mmol/L Potassium 4.3 (3.5-5.1) mmol/L Chloride 103 (98-107) mmol/L Carbon Dioxide 26 (22-30) mmol/L Anion Gap 11 mmol/L BUN 20 H (7-17) mg/dL Creatinine 0.62 (0.52-1.04) mg/dL Est GFR (CKD-EPI)AfAm >90 (>60 ml/min/1.73 sqM) Est GFR (CKD-EPI)NonAf >90 (>60 ml/min/1.73 sqM) Glucose 97 (74-99) mg/dL Calcium 9.2 (8.4-10.2) mg/dL Magnesium 1.7 (1.6-2.3) mg/dL Total Bilirubin 0.4 (0.2-1.3) mg/dL AST 22 (14-36) U/L ALT 12 (9-52) U/L Alkaline Phosphatase 63 (38-126) U/L Troponin I <0.012 (0.000-0.034) ng/mL NT-Pro-B Natriuret Pep pg/mL Total Protein 7.1 (6.3-8.2) g/dL Albumin 4.0 (3.5-5.0) g/dL Amylase 57 (30-110) U/L Lipase 293 (23-300) U/L - Radiology Data Radiology results: image reviewed (Chest x-ray shows small effusions and vascular congestion. No overt failure.) Disposition Clinical Impression: Chest pain Disposition: ADMITTED IP TO THIS HOSP Is patient prescribed a controlled substance at d/c from ED?: No Referrals: Dick Nguyen MD [Primary Care Provider] - 1-2 days Decision Time: 19:35
[2019-03-16 17:20] LABS: Basophils # (A) 0.1 k/uL (0-0.2); Basophils % (A) 1 %; Eosinophils # (A) 0.2 k/uL (0-0.7); Eosinophils % (A) 2 %; HCT 44.3 % (34.0-46.0); Lymphocytes # (A) 2.2 k/uL (1.0-4.8); Lymphocytes % (A) 19 %; MCH 28.6 pg (25.0-35.0); MCHC 33.7 g/dL (31.0-37.0); MCV 84.8 fL (80.0-100.0); Mean Platelet Volume 7.4; Monocytes # (A) 0.7 k/uL (0-1.0); Monocytes % (A) 6 %; Neutrophils # (A) 8.6 k/uL (1.3-7.7); Neutrophils % (A) 72 %; Platelet Count 510 k/uL (150-450); RBC 5.23 m/uL (3.80-5.40); RDW 15.1 % (11.5-15.5); WBC 11.9 k/uL (3.8-10.6)
[2019-03-16 17:38] LABS: D-Dimer 0.43 mg/L FEU (<0.60); INR 3.7 (<1.2); Partial Thromboplastin Time 53.1 sec (22.0-30.0); Prothrombin Time 35.6 sec (9.0-12.0)
--- NOTE | 2019-03-16 17:38 | XR ---
EXAMINATION TYPE: XR chest 2V DATE OF EXAM: 03/16/2019 COMPARISON: 10/15/2018 HISTORY: TECHNIQUE: Frontal and lateral views of the chest are obtained. FINDINGS: There is no focal air space opacity, pleural effusion, or pneumothorax seen. The cardiac silhouette size is within normal limits. The osseous structures are intact. IMPRESSION: Small pleural effusions and mild pulmonary vascular congestion. No overt heart failure. No change compared to last exam.
[2019-03-16] MEDS ORDERED: KETOROLAC 30 MG/ML 1 ML VIAL IVP STA (17:39)
[2019-03-16 18:40] LABS: ALT 12 U/L (9-52); AST 22 U/L (14-36); African American GFR (CKD) >90 (>60 ml/min/1.73 sqM); Alkaline Phosphatase 63 U/L (38-126); Amylase 57 U/L (30-110); Anion Gap 11 mmol/L; Blood Urea Nitrogen 20 mg/dL (7-17); Calcium 9.2 mg/dL (8.4-10.2); Carbon Dioxide 26 mmol/L (22-30); Chloride 103 mmol/L (98-107); Glucose 97 mg/dL (74-99); Magnesium 1.7 mg/dL (1.6-2.3); Potassium 4.3 mmol/L (3.5-5.1); Sodium 140 mmol/L (137-145); Total Bilirubin 0.4 mg/dL (0.2-1.3); Total Protein 7.1 g/dL (6.3-8.2)
[2019-03-16] MEDS ORDERED: HYDROmorphone 1 MG/ML 1 ML SYRINGE IVP STA (19:14)
[2019-03-16] MEDS ORDERED: ONDANSETRON 4 MG/2 ML VIAL IVP STA (19:33)
[2019-03-16] MEDS ORDERED: NITROGLYCERIN SL TABS 0.4 MG TAB SUBLINGUAL PRN (19:35)
[2019-03-16 19:58] VITALS: RESP 18
[2019-03-16 20:03] LABS: Appearance,Urine Cloudy (Clear); Bacteria,Urine Occasional /hpf; Bilirubin,Urine Negative (Negative); Blood,Urine Negative (Negative); Color,Urine Yellow; Glucose,Urine (UA) Negative (Negative); Ketones,Urine Negative (Negative); Leukocyte Esterase,Urine Moderate (Negative); Mucus,Urine Rare /hpf; Nitrite,Urine Positive (Negative); Protein,Urine Negative (Negative); RBC,Urine 3 /hpf (0-5); Specific Gravity,Urine 1.013 (1.001-1.035); Squamous Epithelial Cell,Urine 4 /hpf (0-4); Urobilinogen,Urine <2.0 mg/dL (<2.0); WBC,Urine 22 /hpf (0-5)
[2019-03-16] MEDS ORDERED: LOSARTAN 50 MG TAB PO SCH (22:00)
[2019-03-16] MEDS ORDERED: ATORVASTATIN 20 MG TAB PO SCH (22:00)
[2019-03-16] MEDS ORDERED: FENOFIBRATE 160 MG TAB PO SCH (22:00)
[2019-03-16] MEDS: cloNIDine HCL 0.1 MG TAB PO SCH (23:05)
[2019-03-16] MEDS: ONDANSETRON 4 MG TAB PO PRN (23:05)
[2019-03-16] MEDS: FLECAINIDE 50 MG TAB PO SCH (23:05)
[2019-03-16] MEDS: METOPROLOL TARTRATE 50 MG TAB PO SCH (23:05)
[2019-03-16] MEDS: NITROFURANTOIN MONOHYD/M-CRYST 100 MG CAP PO SCH (23:05)
[2019-03-16] MEDS: ALPRAZolam 0.5 MG TAB PO SCH (23:05)
[2019-03-16] MEDS: MORPHINE SULFATE ER 30 MG TABLET PO SCH (23:06)
[2019-03-16] MEDS: HYDROcodone/APAP 10-325MG 1 EACH TAB PO PRN (23:06)
[2019-03-17] MEDS: NITROGLYCERIN OINT 1 INCH/GM PACKET TOPICAL SCH ×2 (00:22→05:51)
[2019-03-17] MEDS: HYDROcodone/APAP 10-325MG 1 EACH TAB PO PRN ×2 (05:45→11:40)
[2019-03-17 06:51] LABS: INR 3.2 (<1.2); Prothrombin Time 30.5 sec (9.0-12.0)
[2019-03-17 07:00] LABS: Cholesterol 164 mg/dL (<200); HDL Cholesterol 28 mg/dL (40-60); LDL Cholesterol,Calculated 96 mg/dL (0-99); Triglycerides 198 mg/dL (<150)
[2019-03-17] MEDS ORDERED: PANTOPRAZOLE 40 MG TABLET PO SCH (07:30)
--- NOTE | 2019-03-17 07:51 | P.HPIM ---
History of Present Illness H&P Date: 03/17/19 Chief Complaint: Sternal chest pressure This is a history of physical 63-year-old white female with known history of chronic abdominal pain and elevated pancreatic enzymes who complained of sudden chest pressure yesterday. She states no nausea no diaphoresis but has history of arrhythmia in the past. The patient's medications have been reconciled but she is now complaining of chronic abdominal pain which is not new for the patient. She's had multiple CT scans and has nonobstructing nephrolithiasis. She's been sent to multiple consultants and we have not elucidated the exact reason for chronic abdominal pain. Chest pressure seems to be more pleuritic this morning. She states inspiratory pain. No radiation no syncope no presyncope stated. But she is admitted for rule out myocardial infraction related to her previous cardiac history. Review of Systems Constitutional: Denies chills, Denies fever Eyes: denies blurred vision, denies pain Ears, nose, mouth and throat: Denies headache, Denies sore throat Cardiovascular: Reports chest pain, Reports decreased exercise tolerance, Reports shortness of breath, Denies edema Respiratory: Denies cough Genitourinary: Denies dysuria, Denies hematuria Past Medical History Past Medical History: GERD/Reflux, Hyperlipidemia, Hypertension Additional Past Medical History / Comment(s): hx urinary retention,right Nephrolithiasis, pt stated rt kidney non functioning", UTI's, patient reports she was once on insulin for diabetes but changed her diet and now does not take anything. occasional vertigo, and R arm fracture with surgery. no longer diabetic for over 2 years now double amputation lower extrmities, aka. 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 Past Anesthesia/Blood Transfusion Reactions: No Reported Reaction Additional Past Anesthesia/Blood Transfusion Reaction / Comment(s): Pt received blood in 1978-no reaction reported. Past Psychological History: No Psychological Hx Reported Additional Psychological History / Comment(s): She is independent. She in a bilateral AKA and gets around in a power wheelchair. She has a hospital bed. She no longer drives but takes the bus. Smoking Status: Current every day smoker Past Alcohol Use History: None Reported Past Drug Use History: None Reported - Past Family History Father Family Medical History: Cancer, Myocardial Infarction ([place]) Additional Family Medical History / Comment(s): Father had lung cancer-went into remission. He of a massive [place] in his 60's Mother Family Medical History: Cancer Additional Family Medical History / Comment(s): Mother of lung cancer at age 54 yrs. Medications and Allergies Home Medications Medication Instructions Recorded Confirmed Type RX: Fenofibrate 160 mg PO HS 11/15/15 03/16/19 History RX: Losartan Potassium [Cozaar] 100 mg PO HS 11/15/15 03/16/19 History RX: amLODIPine [Norvasc] 10 mg PO DAILY 03/08/17 03/16/19 History RX: HYDROcodone/APAP 10-325MG 1 tab PO Q6H PRN #120 tab 05/05/18 03/16/19 Rx [[place] 10-325] RX: Atorvastatin Calcium [Lipitor] 20 mg PO HS 06/21/18 03/16/19 History RX: Morphine Sulfate ER [Ms Contin] 30 mg PO Q12HR 06/21/18 03/16/19 History RX: cloNIDine HCL [Catapres] 0.1 mg PO BID 06/21/18 03/16/19 History RX: Flecainide Acetate 100 mg PO Q12HR 10/14/18 03/16/19 History RX: Ondansetron HCl [Zofran] 8 mg PO TID PRN 10/14/18 03/16/19 History RX: ALPRAZolam [Xanax] 0.5 mg PO BID 01/20/19 03/16/19 History RX: Metoprolol Tartrate [Lopressor] 50 mg PO BID 01/20/19 03/16/19 History RX: Omeprazole [PriLOSEC] 20 mg PO DAILY 01/20/19 03/16/19 History RX: Warfarin [Coumadin] 2 mg PO HS 01/20/19 03/16/19 History Nitroglycerin Sl Tabs [Nitrostat] 0.4 mg SUBLINGUAL Q5M PRN 03/16/19 03/16/19 History Allergies Allergy/AdvReac Type Severity Reaction Status Date / Time sulfamethoxazole Allergy Itching Verified 03/16/19 20:58 [From Septra] trimethoprim [From Septra] Allergy Itching Verified 03/16/19 20:58 levofloxacin [From [facility]] AdvReac Muscle Pain Verified 03/16/19 20:58 Physical Exam Vitals: Vital Signs Temp Pulse Pulse Resp BP BP Pulse Ox 03/17/19 04:45 98 F 53 L 18 158/81 96 03/17/19 00:00 99.1 F 73 18 129/69 96 03/16/19 20:02 162/87 03/16/19 20:00 99.9 F H 84 18 124/73 95 03/16/19 19:57 83 18 190/83 94 L 03/16/19 17:37 85 20 167/84 98 03/16/19 16:35 98.3 F 86 18 178/94 95 Intake and Output 03/16/19 03/17/19 03/17/19 22:59 06:59 14:59 Other: Voiding Method Bedpan Bedpan Incontinent Incontinent # Voids 0 Weight 80.739 kg - Constitutional General appearance: obese - EENT Eyes: EOMI - Neck Neck: no lymphadenopathy - Respiratory Respiratory: bilateral: diminished - Cardiovascular Rhythm: regular Heart sounds: normal: S1, S2 Abnormal Heart Sounds: no S3 Gallop - Gastrointestinal General gastrointestinal: soft, no tenderness - Musculoskeletal Bilateral amputation of the lower extremity - Psychiatric Psychiatric: A&O x's 3, appropriate affect, intact judgment & insight Results CBC & Chem 7: 03/16/19 17:10 03/16/19 18:07 Labs: Abnormal Lab Results - Last 24 Hours (Table) 03/16/19 03/16/19 03/16/19 Range/Units 17:10 17:10 18:07 WBC 11.9 H (3.8-10.6) k/uL Plt Count 510 H (150-450) k/uL Neutrophils # 8.6 H (1.3-7.7) k/uL PT 35.6 H (9.0-12.0) sec INR 3.7 H (<1.2) APTT 53.1 H (22.0-30.0) sec BUN 20 H (7-17) mg/dL Triglycerides (<150) mg/dL HDL Cholesterol (40-60) mg/dL Urine Appearance (Clear) Urine Nitrite (Negative) Ur Leukocyte Esterase (Negative) Urine WBC (0-5) /hpf Urine Bacteria (None) /hpf Urine Mucus (None) /hpf 03/16/19 03/17/19 03/17/19 Range/Units 19:40 06:30 06:30 WBC (3.8-10.6) k/uL Plt Count (150-450) k/uL Neutrophils # (1.3-7.7) k/uL PT 30.5 H (9.0-12.0) sec INR 3.2 H (<1.2) APTT (22.0-30.0) sec BUN (7-17) mg/dL Triglycerides 198 H (<150) mg/dL HDL Cholesterol 28 L (40-60) mg/dL Urine Appearance Cloudy H (Clear) Urine Nitrite Positive H (Negative) Ur Leukocyte Esterase Moderate H (Negative) Urine WBC 22 H (0-5) /hpf Urine Bacteria Occasional H (None) /hpf Urine Mucus Rare H (None) /hpf Thrombosis Risk Factor Assmnt - Choose All That Apply Any of the Below Risk Factors Present?: Yes Each Factor Represents 1 point: Obesity (BMI >25) Other Risk Factors: Yes Each Risk Factor Represents 2 Points: Age 61-74 years Other congenital or acquired thrombophilia - If yes, enter type in comment: No Thrombosis Risk Factor Assessment Total Risk Factor Score: 3 Thrombosis Risk Factor Assessment Level: Moderate Risk Assessment and Plan (1) Chest pain Current Visit: Yes Status: Acute Code(s): R07.9 - CHEST PAIN, UNSPECIFIED SNOMED Code(s): 06342844 (2) Abdominal pain Current Visit: No Status: Acute Code(s): R10.9 - UNSPECIFIED ABDOMINAL PAIN SNOMED Code(s): 93483748 (3) Urinary tract infection Current Visit: No Status: Acute Priority: High Code(s): N39.0 - URINARY TRACT INFECTION, SITE NOT SPECIFIED SNOMED Code(s): 77743961 (4) Amputated left leg Current Visit: No Status: Chronic Code(s): Z89.612 - ACQUIRED ABSENCE OF LEFT LEG ABOVE KNEE SNOMED Code(s): 184397655 (5) Amputated right leg Current Visit: No Status: Chronic Code(s): Z89.611 - ACQUIRED ABSENCE OF RIGHT LEG ABOVE KNEE SNOMED Code(s): 902423155 Plan: Rule out myocardial infarction. Reconcile home medications. Element of chronic abdominal pain which is not new. Await cardiology consultation. I suspect stress testing later today. Anticipate discharge in next 24 hours. Time with Patient: Greater than 30
[2019-03-17] MEDS ORDERED: ALBUTEROL NEBULIZED 2.5 MG/3 ML INHALATION PRN (07:53)
[2019-03-17] MEDS: MORPHINE SULFATE ER 30 MG TABLET PO SCH (08:51)
[2019-03-17] MEDS: ALPRAZolam 0.5 MG TAB PO SCH (08:51)
[2019-03-17] MEDS: METOPROLOL TARTRATE 50 MG TAB PO SCH (08:51)
[2019-03-17] MEDS: cloNIDine HCL 0.1 MG TAB PO SCH (08:51)
[2019-03-17] MEDS: FLECAINIDE 50 MG TAB PO SCH (08:52)
[2019-03-17] MEDS: NITROFURANTOIN MONOHYD/M-CRYST 100 MG CAP PO SCH (08:52)
[2019-03-17] MEDS ORDERED: amLODIPine 10 MG TAB PO SCH (09:00)
[2019-03-17] MEDS ORDERED: ASPIRIN 325 MG TAB PO SCH (09:00)
--- NOTE | 2019-03-17 10:02 | P.CRDCN ---
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 She does not follow with a quality manager. We have been asked to see her in consultation secondary to chest discomfort. She states she woke up yesterday from a nap with a pain across her chest described as a tight sensation with some radiation to the right shoulder at times. The discomfort is exacerbated by deep inspiration. She also has been coughing with some yellow sputum. She denies having any documented fevers however felt extremely chilled and cold yesterday. She is also complaining of left upper quadrant abdominal discomfort and bilateral ear pain. She denies associated shortness of breath, dizziness, nausea, vomiting or palpitations. EKG reveals sinus mechanism, left anterior fascicular block and poor R-wave progression. Telemetry tracings reveal sinus mechanism. Chest x-ray small pleural effusions and mild pulmonary vascular congestion with no overt heart failure. Laboratory data reviewed, WBC 11.9, hemoglobin 15, platelets 510, INR on admission 3. 7 repeat today 3.2, d-dimer 0.43, sodium 140, potassium 4.3, creatinine 0.62, magnesium 1.7, cardiac enzymes negative 2, proBNP 710, LDL 96. Most recent echocardiogram obtained in June 2018 revealed preserved LV systolic function with ejection fraction 55-60%, aortic stenosis with a mean gradient of 8 mmHg, mitral thickening with a gradient of 5 mmHg across the valve. Current cardiac medications include flecainide 100 mg twice a day, Coumadin 2 mg at bedtime, amlodipine 10 mg daily, clonidine 0.1 mg twice a day, Lopressor 50 mg twice a day, losartan 100 mg at bedtime, fenofibrate 160 mg daily and a torvastatin 20 mg daily. At the time of my exam: CONSTITUTIONAL: Denies fever. Denies chills. EYES: Denies blurred vision. Denies vision changes. Denies eye pain. EARS, NOSE, MOUTH & THROAT: Denies headache. Denies sore throat. Complains of bilateral ear pain. CARDIOVASCULAR: Complains of pleuritic chest pain. Denies shortness of breath. Denies orthopnea. Denies PND. Denies palpitations. RESPIRATORY: complains of productive cough. GASTROINTESTINAL: Complains of left upper quadrant abdominal pain. Denies diarrhea. Denies constipation. Denies nausea. Denies vomiting. MUSCULOSKELETAL: Denies myalgias. INTEGUMENTARY: Denies pruitis. Denies rash. NEUROLOGIC: Denies numbness. Denies tingling. Denies weakness. PSYCHIATRIC: Denies anxiety. Denies depression. ENDOCRINE: Denies fatigue. Denies weight change. Denies polydipsia. Denies polyurina. GENITOURINARY: Denies burning, hematuria or urgency with micturation. HEMATOLOGIC: Denies history of anemia. Denies bleeding. Blood pressure 151/67 heart rate 56 afebrile maintaining oxygen saturation on room air GENERAL: This is a 63-year-old female in no apparent distress at the time of my examination. HEENT: Head is atraumatic, normocephalic. Pupils are equal, round. Sclerae anicteric. Conjunctivae are clear. Mucous membranes of the mouth are moist. Neck is supple. There is no jugular venous distention. No carotid bruit is heard. LUNGS: Clear to auscultation no wheezes, rales or rhonchi. No chest wall tenderness is noted on palpation or with deep breathing. HEART: Regular rate and rhythm without murmurs, rubs or gallops. S1 and S2 heard. Distant. ABDOMEN: Soft, mildly tender left upper quadrant. Bowel sounds are heard. No organomegaly noted. EXTREMITIES: No evidence of peripheral edema and no calf tenderness noted. VASCULAR: Radial and dorsalis pedis pulses palpated, no evidence of clubbing. NEUROLOGIC: Patient is awake, alert and oriented x3. ASSESSMENT Pleuritic chest pain, acute event has been ruled out. Atypical for angina. Abdominal pain Leukocytosis Paroxysmal atrial fibrillation on long-term anticoagulation. Maintaining sinus mechanism. Supratherapeutic INR Hypertension Dyslipidemia Valvular heart disease noted on previous echocardiogram, heart sounds extremely distant unable to auscultate murmur sufficient Chronic nicotine dependence Bilateral lower extremity [id number] amputation PLAN An acute coronary event has been ruled out. Chest pain is pleuritic and atypical for angina, most likely related to underlying viral illness and inflammation. Discontinue Nitropaste. Obtain 2-D echocardiogram and Doppler study to assess cardiac structure and function. Lengthy conversation and with the patient regarding cardiology follow-up secondary to being on flecainide. She is agreeable to come to the office for follow-up. Further workup of underlying coronary artery disease with take place as an outpatient. Thank you kindly for this consultation. Nurse Practitioner note has been reviewed, I agree with a documented findings and plan of care. Patient was seen and examined. 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 occasional vertigo, and R arm fracture with surgery. no longer diabetic for over 2 years now double amputation lower extrmities, aka. 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 Past Anesthesia/Blood Transfusion Reactions: No Reported Reaction Additional Past Anesthesia/Blood Transfusion Reaction / Comment(s): Pt received blood in 1978-no reaction reported. Past Psychological History: No Psychological Hx Reported Additional Psychological History / Comment(s): She is independent. She in a bi lateral AKA and gets around in a power wheelchair. She has a hospital bed. She no longer drives but takes the bus. Smoking Status: Current every day smoker Past Alcohol Use History: None Reported Past Drug Use History: None Reported - Past Family History Father Family Medical History: Cancer, Myocardial Infarction ([place]) Additional Family Medical History / Comment(s): Father had lung cancer-went into remission. He of a massive [place] in his 60's Mother Family Medical History: Cancer Additional Family Medical History / Comment(s): Mother of lung cancer at age 54 yrs. Medications and Allergies Home Medications Medication Instructions Recorded Confirmed Type Fenofibrate 160 mg PO HS 11/15/15 03/16/19 History Losartan Potassium [Cozaar] 100 mg PO HS 11/15/15 03/16/19 History amLODIPine [Norvasc] 10 mg PO DAILY 03/08/17 03/16/19 History HYDROcodone/APAP 10-325MG [[place] 1 tab PO Q6H PRN #120 tab 05/05/18 03/16/19 Rx 10-325] Atorvastatin Calcium [Lipitor] 20 mg PO HS 06/21/18 03/16/19 History Morphine Sulfate ER [Ms Contin] 30 mg PO Q12HR 06/21/18 03/16/19 History cloNIDine HCL [Catapres] 0.1 mg PO BID 06/21/18 03/16/19 History Flecainide Acetate 100 mg PO Q12HR 10/14/18 03/16/19 History Ondansetron HCl [Zofran] 8 mg PO TID PRN 10/14/18 03/16/19 History ALPRAZolam [Xanax] 0.5 mg PO BID 01/20/19 03/16/19 History Metoprolol Tartrate [Lopressor] 50 mg PO BID 01/20/19 03/16/19 History Omeprazole [PriLOSEC] 20 mg PO DAILY 01/20/19 03/16/19 History Warfarin [Coumadin] 2 mg PO HS 01/20/19 03/16/19 History Nitroglycerin Sl Tabs [Nitrostat] 0.4 mg SUBLINGUAL Q5M PRN 03/16/19 03/16/19 History Allergies Allergy/AdvReac Type Severity Reaction Status Date / Time sulfamethoxazole Allergy Itching Verified 03/16/19 20:58 [From Septra] trimethoprim [From Septra] Allergy Itching Verified 03/16/19 20:58 [facility] AdvReac Muscle Pain Verified 03/16/19 20:58 Physical Exam Vitals: Vital Signs Temp Pulse Pulse Resp BP BP BP 03/17/19 07:35 98.1 F 56 L 18 151/67 03/17/19 04:45 98 F 53 L 18 158/81 03/17/19 00:00 99.1 F 73 18 129/69 03/16/19 20:02 162/87 03/16/19 20:00 99.9 F H 84 18 124/73 03/16/19 19:57 83 18 190/83 03/16/19 17:37 85 20 167/84 03/16/19 16:35 98.3 F 86 18 178/94 Pulse Ox 03/17/19 07:35 96 08/16/19 04:45 96 03/17/19 00:00 96 03/16/19 20:02 03/16/19 20:00 95 03/16/19 19:57 94 L 03/16/19 17:37 98 03/16/19 16:35 95 Intake and Output 03/16/19 03/17/19 03/17/19 22:59 06:59 14:59 Other: Voiding Method Bedpan Bedpan Incontinent Incontinent # Voids 0 Weight 80.739 kg Results 03/16/19 17:10 03/16/19 18:07 Cardiac Enzymes 03/16/19 03/16/19 03/17/19 Range/Units 18:07 18:07 06:30 AST 22 (14-36) U/L Troponin I <0.012 <0.012 (0.000-0.034) ng/mL Coagulation 03/16/19 03/17/19 Range/Units 17:10 06:30 PT 35.6 H 30.5 H (9.0-12.0) sec APTT 53.1 H (22.0-30.0) sec Lipids 03/17/19 Range/Units 06:30 Triglycerides 198 H (<150) mg/dL Cholesterol 164 (<200) mg/dL HDL Cholesterol 28 L (40-60) mg/dL CBC 03/16/19 Range/Units 17:10 WBC 11.9 H (3.8-10.6) k/uL RBC 5.23 (3.80-5.40) m/uL Hgb 15.0 (11.4-16.0) gm/dL Hct 44.3 (34.0-46.0) % Plt Count 510 H (150-450) k/uL Comprehensive Metabolic Panel 03/16/19 Range/Units 18:07 Sodium 140 (137-145) mmol/L Potassium 4.3 (3.5-5.1) mmol/L Chloride 103 (98-107) mmol/L Carbon Dioxide 26 (22-30) mmol/L BUN 20 H (7-17) mg/dL Creatinine 0.62 (0.52-1.04) mg/dL Glucose 97 (74-99) mg/dL Calcium 9.2 (8.4-10.2) mg/dL AST 22 (14-36) U/L ALT 12 (9-52) U/L Alkaline Phosphatase 63 (38-126) U/L Total Protein 7.1 (6.3-8.2) g/dL Albumin 4.0 (3.5-5.0) g/dL Current Medications Generic Name Dose Route Start Last Admin Trade Name Freq PRN Reason Stop Dose Admin Hydrocodone Bitart/Acetaminophen 1 each 03/16/19 21:47 03/17/19 05:45 [place] 10 PO 1 each Q6H PRN Administration MODERATE Pain Albuterol Sulfate 2.5 mg 03/17/19 07:53 Ventolin Nebulized INHALATION RT-QID PRN Shortness Of Breath Or Wheezing Alprazolam 0.5 mg 03/16/19 22:00 03/16/19 23:05 Xanax PO 0.5 mg BID REGINA Administration Amlodipine Besylate 10 mg 03/17/19 09:00 Norvasc PO DAILY REGINA Aspirin 325 mg 03/17/19 09:00 Aspirin PO DAILY [facility] Atorvastatin Calcium 20 mg 03/16/19 22:00 03/16/19 23:05 Lipitor PO 20 mg HS REGINA Administration Clonidine 0.1 mg 03/16/19 22:00 03/16/19 23:05 Catapres PO 0.1 mg BID REGINA Administration Fenofibrate 160 mg 03/16/19 22:00 03/16/19 23:05 Lofibra PO 160 mg HS REGINA Administration Flecainide Acetate 100 mg 03/16/19 22:00 03/16/19 23:05 Tambocor PO 100 mg Q12HR REGINA Administration Losartan Potassium 100 mg 03/16/19 22:00 03/16/19 23:05 Cozaar PO 100 mg HS REGINA Administration Metoprolol Tartrate 50 mg 03/16/19 22:00 03/16/19 23:05 Lopressor PO 50 mg BID REGINA Administration Morphine Sulfate 30 mg 03/16/19 22:00 03/16/19 23:06 Ms Contin PO 30 mg Q12HR REGINA Administration Nitrofurantoin Macrocrystals 100 mg 03/16/19 22:00 03/16/19 23:05 Macrobid PO 100 mg BID REGINA Administration Nitroglycerin 1 inch 03/17/19 00:00 03/17/19 05:51 Nitro-Bid Oint TOPICAL Not Given Q6HR [facility] Nitroglycerin 0.4 mg 03/16/19 19:35 Nitrostat SUBLINGUAL Q5M PRN Chest Pain Ondansetron HCl 8 mg 03/16/19 21:47 03/16/19 23:05 Zofran PO 8 mg TID PRN Administration Nausea Pantoprazole Sodium 40 mg 03/17/19 07:30 Protonix PO DAILY@0730 [facility] Intake and Output 03/16/19 03/17/19 03/17/19 22:59 06:59 14:59 Other: Voiding Method Bedpan Bedpan Incontinent Incontinent # Voids 0 Weight 80.739 kg 03/16/19 17:10 03/16/19 18:07
[2019-03-17 11:21] VITALS: BP 100/65; PULSE 52; TEMP 98.4
--- NOTE | 2019-03-17 11:51 | ECHOF ---
Referral Reason:cp, on flecanide MEASUREMENTS -------- HEIGHT: 137.2 cm WEIGHT: 80.7 kg BP: 151/67 RVIDd: 2.4 cm (< 3.3) IVSd: 1.2 cm (0.6 - 1.1) LVIDd: 4.4 cm (3.9 - 5.3) LVPWd: 1.3 cm (0.6 - 1.1) IVSs: 1.7 cm LVIDs: 3.4 cm LVPWs: 1.3 cm Ao Diam: 2.5 cm (2.0 - 3.7) AV Cusp: 1.5 cm (1.5 - 2.6) MV EXCURSION: 8.590 mm (> 18.000) MV EF SLOPE: 38 mm/s (70 - 150) EPSS: 0.6 cm MV E Gustavo: 0.80 m/s MV DecT: 285 ms MV A Gustavo: 0.91 m/s MV E/A Ratio: 0.87 RAP: 5.00 mmHg RVSP: 15.36 mmHg FINDINGS -------- Sinus rhythm. This was a techncally difficult study with suboptimal views, , Lumason utilized for enhancement of im ages. The left ventricular size is normal. There is mild concentric left ventricular hypertrophy. Overa ll left ventricular systolic function is normal with, an EF between 55 - 60 %. The right ventricle is normal in size. The left atrial size is normal. The right atrial size is normal. 5.0mg OF Lumason UTLIZED: 2 OR MORE WALL SEGMENTS NOT VISUALIZED. There is mild aortic valve sclerosis. There is no evidence of aortic regurgitation. Mild mitral annular calcification present. Mild mitral regurgitation is present. Trace tricuspid regurgitation present. There is no evidence of pulmonary hypertension. The pulmonic valve was not well visualized. The aortic root size is normal. There is no pericardial effusion. CONCLUSIONS -------- 1. Sinus rhythm. 2. This was a techncally difficult study with suboptimal views, , Lumason utilized for enhancement of images. 3. The left ventricular size is normal. 4. There is mild concentric left ventricular hypertrophy. 5. Overall left ventricular systolic function is normal with, an EF between 55 - 60 %. 6. The right ventricle is normal in size. 7. The left atrial size is normal. 8. The right atrial size is normal. 9. 5.0mg OF [place] UTLIZED: 2 OR MORE WALL SEGMENTS NOT VISUALIZED. 10. There is mild aortic valve sclerosis. 11. Mild mitral annular calcification present. 12. Mild mitral regurgitation is present. 13. Trace tricuspid regurgitation present. 14. There is no evidence of pulmonary hypertension. 15. The pulmonic valve was not well visualized. 16. The aortic root size is normal. 17. There is no pericardial effusion. CANVAS SHRINKER: Laurel Muñiz RDCS
[2019-03-17] MEDS: ONDANSETRON 4 MG TAB PO PRN (13:26)
== END 2019-03-17 16:06 | disposition home or self-care (01) ==
LOC: EC 16:27 → 1SOBS 19:36
PROVIDERS: ADMIT Family Medicine; ATTEND Family Medicine
DX: R07.81 Pleurodynia (principal); I48.0 Paroxysmal atrial fibrillation; K21.9 Gastro-esophageal reflux disease without esophagitis; I10 Essential (primary) hypertension; F41.0 Panic disorder [episodic paroxysmal anxiety]; I35.0 Nonrheumatic aortic (valve) stenosis; I44.4 Left anterior fascicular block; R79.1 Abnormal coagulation profile; G89.29 Other chronic pain; E11.9 Type 2 diabetes mellitus without complications; E78.5 Hyperlipidemia, unspecified; F17.200 Nicotine dependence, unspecified, uncomplicated; Z89.612 Acquired absence of left leg above knee; Z89.611 Acquired absence of right leg above knee; Z79.01 Long term (current) use of anticoagulants; Z79.4 Long term (current) use of insulin; Z79.899 Other long term (current) drug therapy; Z87.442 Personal history of urinary calculi; Z87.440 Personal history of urinary (tract) infections; Z90.49 Acquired absence of other specified parts of digestive tract; Z90.710 Acquired absence of both cervix and uterus; Z98.1 Arthrodesis status; Z90.722 Acquired absence of ovaries, bilateral; Z82.49 Family history of ischemic heart disease and other diseases of the circulatory system; Z80.1 Family history of malignant neoplasm of trachea, bronchus and lung
CPT/HCPCS: 96374; 96375; 99285; 36415; 93005; 85379; 83880; 80061; 80053; 82150; 83690; 83735; 84484 ×2; 85025; 85610 ×2; 85730; 81001; 71046; G0378 ×2; C8929; J2405; J1885; J1170; Q9950; 93306

== ENCOUNTER → 2019-05-23 | Outpatient (CLI) | payer OTHER ==
[2019-05-23 13:18] LABS: HCT 42.6 % (34.0-46.0); MCH 28.5 pg (25.0-35.0); MCHC 32.9 g/dL (31.0-37.0); MCV 86.5 fL (80.0-100.0); Platelet Count 405 k/uL (150-450); RBC 4.92 m/uL (3.80-5.40); RDW 14.9 % (11.5-15.5); WBC 9.6 k/uL (3.8-10.6)
[2019-05-23 13:23] LABS: African American GFR (CKD) >90 (>60 ml/min/1.73 sqM); Anion Gap 9 mmol/L; Blood Urea Nitrogen 29 mg/dL (7-17); Carbon Dioxide 25 mmol/L (22-30); Chloride 107 mmol/L (98-107); Potassium 4.2 mmol/L (3.5-5.1); Sodium 141 mmol/L (137-145)
== END | disposition home or self-care (01) ==
LOC: LABPAT 12:46
PROVIDERS: ATTEND Internal Medicine Cardiovascular Disease
DX: Z01.812 Encounter for preprocedural laboratory examination (principal); R94.39 Abnormal result of other cardiovascular function study
CPT/HCPCS: 80051; 82565; 84520; 85027

== ENCOUNTER 2019-05-28 14:54 | Inpatient (IN) | payer OTHER ==
[2019-05-28 15:33] LABS: Basophils # (A) 0.1 k/uL (0-0.2); Basophils % (A) 1 %; Eosinophils # (A) 0.1 k/uL (0-0.7); Eosinophils % (A) 1 %; HCT 44.7 % (34.0-46.0); HGB 15.2 gm/dL (11.4-16.0); Lymphocytes # (A) 2.2 k/uL (1.0-4.8); Lymphocytes % (A) 19 %; MCH 28.8 pg (25.0-35.0); MCV 84.6 fL (80.0-100.0); Monocytes # (A) 0.4 k/uL (0-1.0); Monocytes % (A) 4 %; Neutrophils # (A) 8.5 k/uL (1.3-7.7); Neutrophils % (A) 74 %; Platelet Count 373 k/uL (150-450); RBC 5.28 m/uL (3.80-5.40); RDW 14.7 % (11.5-15.5); WBC 11.4 k/uL (3.8-10.6)
[2019-05-28] MEDS ORDERED: KETOROLAC 30 MG/ML 1 ML VIAL IVP STA (15:42)
[2019-05-28] MEDS ORDERED: ONDANSETRON 4 MG/2 ML VIAL IVP STA (15:42)
[2019-05-28 15:51] LABS: ALT 18 U/L (9-52); AST 22 U/L (14-36); African American GFR (CKD) >90 (>60 ml/min/1.73 sqM); Albumin 3.9 g/dL (3.5-5.0); Alkaline Phosphatase 61 U/L (38-126); Amylase 67 U/L (30-110); Anion Gap 11 mmol/L; Blood Urea Nitrogen 18 mg/dL (7-17); Calcium 9.8 mg/dL (8.4-10.2); Carbon Dioxide 19 mmol/L (22-30); Chloride 112 mmol/L (98-107); Glucose 98 mg/dL (74-99); Potassium 3.7 mmol/L (3.5-5.1); Sodium 142 mmol/L (137-145); Total Bilirubin 0.6 mg/dL (0.2-1.3); Total Protein 6.9 g/dL (6.3-8.2)
[2019-05-28 16:14] LABS: Appearance,Urine Cloudy (Clear); Bacteria,Urine Few /hpf; Bilirubin,Urine Negative (Negative); Blood,Urine Negative (Negative); Color,Urine Yellow; Glucose,Urine (UA) Negative (Negative); Ketones,Urine Negative (Negative); Leukocyte Esterase,Urine Large (Negative); Mucus,Urine Rare /hpf; Nitrite,Urine Positive (Negative); Protein,Urine 1+ (Negative); Specific Gravity,Urine 1.015 (1.001-1.035); Squamous Epithelial Cell,Urine <1 /hpf (0-4); Urobilinogen,Urine <2.0 mg/dL (<2.0); WBC,Urine 59 /hpf (0-5)
[2019-05-28] MEDS ORDERED: cefTRIAXone IN SWFI 1,000 MG/10 ML SYRINGE IVP STA ×3 (16:21→17:49)
[2019-05-28] MEDS ORDERED: SODIUM CHLORIDE 0.9% 1,000 ML IV STA (16:23)
--- NOTE | 2019-05-28 16:23 | ED ---
General Adult HPI - General Chief complaint: Urogenital Stated complaint: abdominal & flank pain Time Seen by Provider: 05/28/19 15:01 Source: EMS, RN notes reviewed Mode of arrival: EMS Limitations: no limitations - History of Present Illness Initial comments: 63-year-old female with a past medical history of GERD, hyperlipidemia, hypertension, nephrolithiasis, kidney disease presents to the emergency department for a chief complaint of left lower abdominal and flank pain. States this radiates to her back. States she feels like this is a kidney stone. States she feels that she has chills but denies any obvious fevers at home. Admits to nausea but denies vomiting.Patient has no other complaints at this time including shortness of breath, chest pain, vomiting, headache, or visual changes. - Related Data Home Medications Medication Instructions Recorded Confirmed Fenofibrate 160 mg PO HS 11/15/15 05/25/19 Losartan Potassium [Cozaar] 100 mg PO DAILY 11/15/15 05/25/19 amLODIPine [Norvasc] 10 mg PO DAILY 03/08/17 03/16/19 Atorvastatin Calcium [Lipitor] 40 mg PO HS 06/21/18 05/25/19 Morphine Sulfate ER [Ms Contin] 30 mg PO Q12HR 06/21/18 05/25/19 cloNIDine HCL [Catapres] 0.1 mg PO BID 06/21/18 05/25/19 Flecainide Acetate 100 mg PO Q12HR 10/14/18 05/25/19 Ondansetron HCl [Zofran] 8 mg PO TID PRN 10/14/18 05/25/19 ALPRAZolam [Xanax] 0.5 mg PO BID PRN 01/20/19 05/25/19 Omeprazole [PriLOSEC] 20 mg PO BID PRN 01/20/19 05/25/19 Warfarin [Coumadin] 2 mg PO HS 01/20/19 05/25/19 Nitroglycerin Sl Tabs [Nitrostat] 0.4 mg SUBLINGUAL Q5M PRN 03/16/19 05/25/19 HYDROcodone/APAP 10-325MG [[place] 1 tab PO Q6H PRN 05/25/19 05/25/19 10-325] Simethicone [Gas-X] 125 mg PO QID PRN 05/25/19 05/25/19 Valsartan 160 mg PO DAILY 05/25/19 05/25/19 Allergies Allergy/AdvReac Type Severity Reaction Status Date / Time sulfamethoxazole Allergy Itching Verified 05/28/19 15:04 [From Septra] trimethoprim [From Septra] Allergy Itching Verified 05/28/19 15:04 levofloxacin [From Levaquin] AdvReac Muscle Pain Verified 05/28/19 15:04 Review of Systems ROS Statement: Those systems with pertinent positive or pertinent negative responses have been documented in the HPI. ROS Other: All systems not noted in ROS Statement are negative. 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 occasional vertigo, and R arm fracture with surgery. no longer diabetic for over 2 years now double amputation lower extrmities, aka. 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 Past Anesthesia/Blood Transfusion Reactions: No Reported Reaction Additional Past Anesthesia/Blood Transfusion Reaction / Comment(s): Pt received blood in 1978-no reaction reported. Past Psychological History: No Psychological Hx Reported Smoking Status: Current every day smoker Past Alcohol Use History: None Reported Past Drug Use History: None Reported - Past Family History Father Family Medical History: Cancer, Myocardial Infarction ([place]) Additional Family Medical History / Comment(s): Father had lung cancer-went into remission. He of a massive [place] in his 60's Mother Family Medical History: Cancer Additional Family Medical History / Comment(s): Mother of lung cancer at age 54 yrs. General Exam Limitations: no limitations General appearance: alert, in no apparent distress Head exam: Present: atraumatic, normocephalic, normal inspection Eye exam: Present: normal appearance, PERRL, EOMI. Absent: scleral icterus, conjunctival injection, periorbital swelling ENT exam: Present: normal exam, mucous membranes moist Neck exam: Present: normal inspection, full ROM. Absent: tenderness, meningismus, lymphadenopathy Respiratory exam: Present: normal lung sounds bilaterally. Absent: respiratory distress, wheezes, rales, rhonchi, stridor Cardiovascular Exam: Present: regular rate, normal rhythm, normal heart sounds. Absent: bradycardia, tachycardia, irregular rhythm GI/Abdominal exam: Present: soft, tenderness (Tenderness noted in the left lower abdomen), normal bowel sounds. Absent: distended, guarding, rebound, rigid Back exam: Present: CVA tenderness (L) Neurological exam: Present: alert Course Vital Signs 05/28/19 05/28/19 15:01 17:08 Temperature 99.7 F H Pulse Rate 82 79 Respiratory 16 18 Rate Blood Pressure 133/108 193/97 O2 Sat by Pulse 94 L 97 Oximetry Medical Decision Making - Medical Decision Making Urine culture from 01/20/2019 was reviewed which shows sensitivity to Rocephin Vitals are stable. CBC does show mild acidosis with a left shift. CMP unremarkable. Urinalysis does have positive nitrate with 9 red blood cells. Given patient's left CVA tenderness this is consistent with pyelonephritis. CT abdomen and pelvis was obtained to rule out kidney stone. There are no obstructing renal calculi or acute abnormality in the abdomen or pelvis. Previous records were reviewed and patient has had failure of outpatient treatment several times. Patient states or and reticulocyte never worked for her and she has to come back. Patient is also having nausea with a few episodes of vomiting here in the ER. Past cultures were reviewed and patient is sensitive to Rocephin in the past. Therefore patient will be started on Rocephin and admitted for IV antibiotics. Patient no longer sees Dr. Nguyen and will be admitted to [facility] who are on city call. - Lab Data Result diagrams: 05/28/19 15:12 05/28/19 15:12 Lab Results 05/28/19 05/28/19 05/28/19 Range/Units 15:12 15:12 15:12 WBC 11.4 H (3.8-10.6) k/uL RBC 5.28 (3.80-5.40) m/uL Hgb 15.2 (11.4-16.0) gm/dL Hct 44.7 (34.0-46.0) % MCV 84.6 (80.0-100.0) fL MCH 28.8 (25.0-35.0) pg MCHC 34.0 (31.0-37.0) g/dL RDW 14.7 (11.5-15.5) % Plt Count 373 (150-450) k/uL Neutrophils % 74 % Lymphocytes % 19 % Monocytes % 4 % Eosinophils % 1 % Basophils % 1 % Neutrophils # 8.5 H (1.3-7.7) k/uL Lymphocytes # 2.2 (1.0-4.8) k/uL Monocytes # 0.4 (0-1.0) k/uL Eosinophils # 0.1 (0-0.7) k/uL Basophils # 0.1 (0-0.2) k/uL Sodium 142 (137-145) mmol/L Potassium 3.7 (3.5-5.1) mmol/L Chloride 112 H (98-107) mmol/L Carbon Dioxide 19 L (22-30) mmol/L Anion Gap 11 mmol/L BUN 18 H (7-17) mg/dL Creatinine 0.52 (0.52-1.04) mg/dL Est GFR (CKD-EPI)AfAm >90 (>60 ml/min/1.73 sqM) Est GFR (CKD-EPI)NonAf >90 (>60 ml/min/1.73 sqM) Glucose 98 (74-99) mg/dL Plasma Lactic Acid Joshua 0.9 (0.7-2.0) mmol/L Calcium 9.8 (8.4-10.2) mg/dL Total Bilirubin 0.6 (0.2-1.3) mg/dL AST 22 (14-36) U/L ALT 18 (9-52) U/L Alkaline Phosphatase 61 (38-126) U/L Total Protein 6.9 (6.3-8.2) g/dL Albumin 3.9 (3.5-5.0) g/dL Amylase 67 (30-110) U/L Lipase 422 H (23-300) U/L Urine Color Urine Appearance (Clear) Urine pH (5.0-8.0) Ur Specific [place] (1.001-1.035) Urine Protein (Negative) Urine Glucose (UA) (Negative) Urine Ketones (Negative) Urine Blood (Negative) Urine Nitrite (Negative) Urine Bilirubin (Negative) Urine Urobilinogen (<2.0) mg/dL Ur Leukocyte Esterase (Negative) Urine WBC (0-5) /hpf Ur Squamous Epith Cells (0-4) /hpf Urine Bacteria (None) /hpf Urine Mucus (None) /hpf 05/28/19 Range/Units 16:05 WBC (3.8-10.6) k/uL RBC (3.80-5.40) m/uL Hgb (11.4-16.0) gm/dL Hct (34.0-46.0) % MCV (80.0-100.0) fL MCH (25.0-35.0) pg MCHC (31.0-37.0) g/dL RDW (11.5-15.5) % Plt Count (150-450) k/uL Neutrophils % % Lymphocytes % % Monocytes % % Eosinophils % % Basophils % % Neutrophils # (1.3-7.7) k/uL Lymphocytes # (1.0-4.8) k/uL Monocytes # (0-1.0) k/uL Eosinophils # (0-0.7) k/uL Basophils # (0-0.2) k/uL Sodium (137-145) mmol/L Potassium (3.5-5.1) mmol/L Chloride (98-107) mmol/L Carbon Dioxide (22-30) mmol/L Anion Gap mmol/L BUN (7-17) mg/dL Creatinine (0.52-1.04) mg/dL Est GFR (CKD-EPI)AfAm (>60 ml/min/1.73 sqM) Est GFR (CKD-EPI)NonAf (>60 ml/min/1.73 sqM) Glucose (74-99) mg/dL Plasma Lactic Acid Joshua (0.7-2.0) mmol/L Calcium (8.4-10.2) mg/dL Total Bilirubin (0.2-1.3) mg/dL AST (14-36) U/L ALT (9-52) U/L Alkaline Phosphatase (38-126) U/L Total Protein (6.3-8.2) g/dL Albumin (3.5-5.0) g/dL Amylase (30-110) U/L Lipase (23-300) U/L Urine Color Yellow Urine Appearance Cloudy H (Clear) Urine pH 6.0 (5.0-8.0) Ur Specific [place] 1.015 (1.001-1.035) Urine Protein 1+ H (Negative) Urine Glucose (UA) Negative (Negative) Urine Ketones Negative (Negative) Urine Blood Negative (Negative) Urine Nitrite Positive H (Negative) Urine Bilirubin Negative (Negative) Urine Urobilinogen <2.0 (<2.0) mg/dL Ur Leukocyte Esterase Large H (Negative) Urine WBC 59 H (0-5) /hpf Ur Squamous Epith Cells <1 (0-4) /hpf Urine Bacteria Few H (None) /hpf Urine Mucus Rare H (None) /hpf Disposition Clinical Impression: Pyelonephritis, Leukocytosis, Left flank pain Disposition: ADMITTED IP TO THIS HOSP Condition: Fair Referrals: Dick Nguyen MD [Primary Care Provider] - 1-2 days Time of Disposition: 17:48
[2019-05-28] MEDS ORDERED: HYDROmorphone 0.5 MG/0.5 ML SYRINGE IVP STA ×2 (16:40→17:51)
--- NOTE | 2019-05-28 17:08 | CT ---
EXAMINATION TYPE: CT abdomen pelvis wo con DATE OF EXAM: 05/28/2019 COMPARISON: 06/26/2018 HISTORY: Left flank pain. CT DLP: 801.8 mGycm Automated exposure control for dose reduction was used. TECHNIQUE: Helical acquisition of images was performed from the lung bases through the pelvis. FINDINGS: Lung bases are clear. There is no pleural effusion. Heart is enlarged. Liver spleen pancreas appear normal. There are clips from cholecystectomy. Bile ducts are not dilated . There is small hiatal hernia. There is no adrenal mass. There is right renal cortical thinning. There is 1 cm calculus lower pole r ight kidney. There is 2 mm calculus lower pole left kidney. There is no hydronephrosis. Ureters are n ot dilated. There is no retroperitoneal adenopathy. Bladder distends smoothly. There is no free fluid in the pelvis. There is no inguinal hernia. There is no free air. There is no ascites. There is no sign of a bowel obstruction. Appendix is not d efinitely seen. There is no sign of thickened appendix. There is no mesenteric edema. IMPRESSION: NONOBSTRUCTING RENAL CALCULI. NO ACUTE ABNORMALITY IN THE ABDOMEN PELVIS. THERE IS CLEARING OF THE PL EURAL FLUID AND INFILTRATES AND ATELECTASIS AT THE LUNG BASES COMPARED TO OLD EXAM. RIGHT RENAL ATROP HY.
[2019-05-28] MEDS ORDERED: NALOXONE 0.4 MG/ML 1 ML VIAL IV PRN (17:48)
[2019-05-28] MEDS ORDERED: ENALAPRILAT 1.25 MG/ML 1 ML VIAL IVP STA (18:05)
[2019-05-28] MEDS: SODIUM CHLORIDE 0.9% 1,000 ML IV SCH (18:11)
[2019-05-28] MEDS ORDERED: MORPHINE SULFATE ER 30 MG TABLET PO STA (20:29)
[2019-05-28] MEDS: ONDANSETRON 4 MG/2 ML VIAL IVP PRN (21:38)
[2019-05-28] MEDS: cloNIDine HCL 0.1 MG TAB PO SCH (21:42)
[2019-05-28] MEDS: ALPRAZolam 0.5 MG TAB PO SCH (21:42)
[2019-05-28] MEDS: ATORVASTATIN 20 MG TAB PO SCH (21:42)
[2019-05-28] MEDS: KETOROLAC 30 MG/ML 1 ML VIAL IVP PRN (22:29)
[2019-05-28] MEDS: PANTOPRAZOLE 40 MG TABLET PO SCH (22:30)
[2019-05-28] MEDS: HYDROmorphone 0.5 MG/0.5 ML SYRINGE IVP PRN (23:54)
[2019-05-29] MEDS: HYDROmorphone 0.5 MG/0.5 ML SYRINGE IVP PRN ×5 (05:20→21:39)
[2019-05-29] MEDS: SODIUM CHLORIDE 0.9% 1,000 ML IV SCH ×3 (05:23→23:22)
[2019-05-29] MEDS: ONDANSETRON 4 MG/2 ML VIAL IVP PRN ×2 (05:30→17:24)
[2019-05-29] MEDS: KETOROLAC 30 MG/ML 1 ML VIAL IVP PRN ×2 (08:11→17:23)
[2019-05-29] MEDS: ALPRAZolam 0.5 MG TAB PO SCH ×2 (08:12→19:27)
[2019-05-29] MEDS: cloNIDine HCL 0.1 MG TAB PO SCH ×2 (08:12→19:26)
[2019-05-29] MEDS ORDERED: SIMETHICONE 80 MG CHEWABLE PO PRN (12:26)
[2019-05-29] MEDS ORDERED: NITROGLYCERIN SL TABS 0.4 MG TAB SUBLINGUAL PRN (12:26)
[2019-05-29] MEDS: HYDROcodone/APAP 10-325MG 1 EACH TAB PO PRN ×2 (12:43→19:13)
--- NOTE | 2019-05-29 13:55 | P.CRDCN ---
History of Present Illness History of present illness: This is a pleasant 63-year-old female past medical history significant for paroxysmal atrial fibrillation on long-term anticoagulation, dyslipidemia, hypertension, bilateral [id number] amputation and chronic nicotine dependence. She follows in the office with Dr. Redmond. She is scheduled to have an elective outpatient cardiac catheterization with Dr. Jama tomorrow secondary to an abnormal stress test. She initially presented to the hospital yesterday afternoon with symptoms of left lower abdominal pain, left flank pain, nausea and chills at home. She has been initiated on Rocephin is currently being treated for urinary tract infection by the ED physician. Saba rubin, PCP covering states symptoms and lab abnormalities are due to renal stone. She denies chest pain, shortness of breath, dizziness or palpitations. Coumadin last dose was 05/24 and flecanide has been held since 05/[address] of the abdomen and pelvis shows a nonobstructing 1 mm right renal calculus as well as a 2 mm calculus in the left kidney. Laboratory data reviewed, WBC 11.4, hemoglobin 15.2, platelets 373, sodium 142, potassium 3.7, creatinine 0.52, lactic acid 0.9, lipase 422. Current cardiac medications include Coumadin, clonidine 0.1 mg twice a day, valsartan 160 mg daily, atorvastatin 40 mg daily, fenofibrate 160 mg at bedtime and she previously been on flecainide 100 mg however this has been on hold pending cardiac catheterization. At the time of my exam: CONSTITUTIONAL: Denies fever. Denies chills. EYES: Denies blurred vision. Denies vision changes. Denies eye pain. EARS, NOSE, MOUTH & THROAT: Denies headache. Denies sore throat. Denies ear pain. CARDIOVASCULAR: Denies chest pain. Denies shortness of breath. Denies orthopnea. Denies PND. Denies palpitations. RESPIRATORY: Denies cough. GASTROINTESTINAL: Denies abdominal pain. Denies diarrhea. Denies constipation. Denies nausea. Denies vomiting. MUSCULOSKELETAL: Denies myalgias. INTEGUMENTARY: Denies pruitis. Denies rash. NEUROLOGIC: Denies numbness. Denies tingling. Denies weakness. PSYCHIATRIC: Denies anxiety. Denies depression. ENDOCRINE: Denies fatigue. Denies weight change. Denies polydipsia. Denies polyurina. GENITOURINARY: Denies burning, hematuria or urgency with micturation. HEMATOLOGIC: Denies history of anemia. Denies bleeding. Blood pressure 150/76 heart rate 59 afebrile maintaining oxygen saturation on room air GENERAL: This is a 63-year-old female in no apparent distress at the time of my examination. Obese. HEENT: Head is atraumatic, normocephalic. Pupils are equal, round. Sclerae anicteric. Conjunctivae are clear. Mucous membranes of the mouth are moist. Neck is supple. There is no jugular venous distention. No carotid bruit is heard. LUNGS: Clear to auscultation no wheezes, rales or rhonchi. No chest wall tenderness is noted on palpation or with deep breathing. HEART: Regular rate and rhythm with systolic ejection murmur at the base, no rubs or gallops. S1 and S2 heard. ABDOMEN: Soft, nontender. Bowel sounds are heard. No organomegaly noted. EXTREMITIES: No evidence of peripheral edema, bilateral AKA. VASCULAR: Bilateral AKA. Radial pulses intact and strong. NEUROLOGIC: Patient is awake, alert and oriented x3. ASSESSMENT Abnormal urinalysis with flank pain Leukocytosis History of renal calculus, non-obstructing Abnormal stress test, elective outpatient catheterization scheduled for tomorrow with Dr. Jama Hypertension Dyslipidemia Paroxysmal atrial fibrillation on buttermaker anti-coagulation with coumadin. Currently on hold Chronic nicotine dependence PLAN Recommend obtaining urine and blood cultures to assess for active infection. If in fact there is an infection catheterization will be postponed until this is clear for the patients safety. Case is planned for tomorrow so we will postpone until Wednesday pending further test findings and opinion of Urology. Continue to hold coumadin and flecanide at this time. Further recommendations to follow based on clinical course. Thank you kindly for this consultation. Nurse Practitioner note has been reviewed, I agree with a documented findings and plan of care. Patient was seen and examined. 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 occasional vertigo, and R arm fracture with surgery. no longer diabetic for over 2 years now double amputation lower extrmities, aka. 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 Past Anesthesia/Blood Transfusion Reactions: No Reported Reaction Additional Past Anesthesia/Blood Transfusion Reaction / Comment(s): Pt received blood in 1978-no reaction reported. Past Psychological History: No Psychological Hx Reported Additional Psychological History / Comment(s): She is independent. She in a bilateral AKA and gets around in a power wheelchair. She has a hospital bed. She no longer drives but takes the bus. Smoking Status: Current every day smoker Past Alcohol Use History: None Reported Additional Past Alcohol Use History / Comment(s): Pt states she started smoking at age 18 yrs and the amount she smokes varies.Smoke a pack in two days Past Drug Use History: None Reported - Past Family History Father Family Medical History: Cancer, Myocardial Infarction ([place]) Additional Family Medical History / Comment(s): Father had lung cancer-went into remission. He of a massive [place] in his 60's Mother Family Medical History: Cancer Additional Family Medical History / Comment(s): Mother of lung cancer at age 54 yrs. Medications and Allergies Home Medications Medication Instructions Recorded Confirmed Type Fenofibrate 160 mg PO HS 11/15/15 05/28/19 History Atorvastatin Calcium [Lipitor] 40 mg PO HS 06/21/18 05/28/19 History Morphine Sulfate ER [Ms Contin] 30 mg PO Q12HR PRN 06/21/18 05/28/19 History cloNIDine HCL [Catapres] 0.1 mg PO BID 06/21/18 05/28/19 History Flecainide Acetate 100 mg PO DIRECTED 10/14/18 05/28/19 History Ondansetron HCl [Zofran] 8 mg PO TID PRN 10/14/18 05/28/19 History ALPRAZolam [Xanax] 0.5 mg PO BID 01/20/19 05/28/19 History Omeprazole [PriLOSEC] 20 mg PO W/SUPPER 01/20/19 05/28/19 History Warfarin [Coumadin] 2 mg PO DIRECTED 01/20/19 05/28/19 History Nitroglycerin Sl Tabs [Nitrostat] 0.4 mg SUBLINGUAL Q5M PRN 03/16/19 05/28/19 History HYDROcodone/APAP 10-325MG [[place] 1 tab PO Q6H PRN 05/25/19 05/28/19 History 10-325] Simethicone [Gas-X] 125 mg PO QID PRN 05/25/19 05/28/19 History Valsartan 160 mg PO DAILY 05/25/19 05/28/19 History Allergies Allergy/AdvReac Type Severity Reaction Status Date / Time sulfamethoxazole Allergy Itching Verified 05/28/19 18:22 [From ] trimethoprim [From Aprra] Allergy Itching Verified 05/28/19 18:22 levofloxacin [From [facility]] AdvReac Muscle Pain Verified 05/28/19 18:22 Physical Exam Vitals: Vital Signs Temp Pulse Pulse Resp BP BP Pulse Ox 05/29/19 07:00 98.7 F 59 L 16 150/76 95 05/29/19 03:30 16 05/29/19 00:45 76 16 05/29/19 00:28 98.5 F 63 15 146/72 96 05/28/19 20:30 63 16 05/28/19 19:52 98.5 F 73 20 174/81 96 05/28/19 19:28 97.2 F L 75 18 170/82 97 05/28/19 18:48 79 18 177/79 96 05/28/19 17:48 77 18 209/96 97 05/28/19 17:08 79 18 193/97 97 05/28/19 15:01 99.7 F H 82 16 133/108 94 L Intake and Output 05/28/19 05/29/19 05/29/19 22:59 06:59 14:59 Intake Total 600 Balance 600 Intake: Intake, IV Titration 600 Amount Sodium Chloride 0.9% 1, 600 000 ml @ 100 mls/hr IV . Q10H [facility] Rx#:[id number] Other: Voiding Method Bedpan Bedpan Bedpan Incontinent Incontinent Diaper Incontinent # Voids 1 1 # Bowel Movements 1 1 Weight 78.018 kg Results 05/28/19 15:12 05/28/19 15:12 Cardiac Enzymes 05/28/19 Range/Units 15:12 AST 22 (14-36) U/L CBC 05/28/19 Range/Units 15:12 WBC 11.4 H (3.8-10.6) k/uL RBC 5.28 (3.80-5.40) m/uL Hgb 15.2 (11.4-16.0) gm/dL Hct 44.7 (34.0-46.0) % Plt Count 373 (150-450) k/uL Comprehensive Metabolic Panel 05/28/19 Range/Units 15:12 Sodium 142 (137-145) mmol/L Potassium 3.7 (3.5-5.1) mmol/L Chloride 112 H (98-107) mmol/L Carbon Dioxide 19 L (22-30) mmol/L BUN 18 H (7-17) mg/dL Creatinine 0.52 (0.52-1.04) mg/dL Glucose 98 (74-99) mg/dL Calcium 9.8 (8.4-10.2) mg/dL AST 22 (14-36) U/L ALT 18 (9-52) U/L Alkaline Phosphatase 61 (38-126) U/L Total Protein 6.9 (6.3-8.2) g/dL Albumin 3.9 (3.5-5.0) g/dL Current Medications Generic Name Dose Route Start Last Admin Trade Name Freq PRN Reason Stop Dose Admin Hydrocodone Bitart/Acetaminophen 1 each 05/29/19 12:26 05/29/19 12:43 [place] 10 PO 1 each Q6H PRN Administration Pain Alprazolam 0.5 mg 05/28/19 21:00 05/29/19 08:12 Xanax PO 0.5 mg BID REGINA Administration Atorvastatin Calcium 40 mg 05/28/19 21:00 05/28/19 21:42 Lipitor PO 40 mg HS REGINA Administration Clonidine 0.1 mg 05/28/19 21:00 05/29/19 08:12 Catapres PO 0.1 mg BID REGINA Administration Hydromorphone HCl 0.5 mg 05/29/19 12:32 Dilaudid IVP Q4HR PRN Severe Pain Sodium Chloride 1,000 mls @ 100 mls/hr 05/28/19 18:00 05/29/19 12:48 Saline 0.9% IV 100 mls/hr .Q10H REGINA Administration Ceftriaxone Sodium 1 gm/ 50 mls @ 100 mls/hr 05/29/19 09:00 05/29/19 08:11 Sodium Chloride IVPB 100 mls/hr DAILY REGINA Administration Ketorolac Tromethamine 30 mg 05/28/19 17:48 05/29/19 08:11 Toradol IVP 06/02/19 17:49 30 mg Q6HR PRN Administration Moderate Pain Naloxone HCl 0.2 mg 05/28/19 17:48 Narcan IV Q2M PRN Opioid Reversal Nitroglycerin 0.4 mg 05/29/19 12:26 Nitrostat SUBLINGUAL Q5M PRN Chest Pain Ondansetron HCl 4 mg 05/28/19 17:48 05/29/19 05:30 Zofran IVP 4 mg Q8HR PRN Administration Nausea And Vomiting Pantoprazole Sodium 40 mg 05/28/19 21:00 05/28/19 22:30 Protonix PO 40 mg W/SUPPER REGINA Administration Simethicone 80 mg 05/29/19 12:26 Mylicon Chew PO QID PRN gas Valsartan 160 mg 05/30/19 09:00 Diovan PO DAILY REGINA Intake and Output 05/28/19 05/29/19 05/29/19 22:59 06:59 14:59 Intake Total 600 Balance 600 Intake: Intake, IV Titration 600 Amount Sodium Chloride 0.9% 1, 600 000 ml @ 100 mls/hr IV . Q10H REGINA Rx#:[id number] Other: Voiding Method Bedpan Bedpan Bedpan Incontinent Incontinent Diaper Incontinent # Voids 1 1 # Bowel Movements 1 1 Weight 78.018 kg 05/28/19 15:12 05/28/19 15:12
--- NOTE | 2019-05-29 16:34 | P.HPIM ---
History of Present Illness 63-year-old the female came in with complains of severe sharp in the left the lower quadrant and flank area as well as the right side. Patient is found to have nephrolithiasis bilaterally to 1 cm nonobstructive renal calculi and right side and 2 mm on the left side. Patient denied any dysuria doesn't have any fever does have leukocytosis minimal secondary to nephrolithiasis. does have abnormal urine it's from the kidney stones. Patient was started on Rocephin by ER physician but I do not believe patient has urinary tract infection at this time. Patient is supposed to get cardiac catheterization tomorrow because of which her Coumadin and Plaquenil are being held by cardiology. Apparently patient had abnormal stress test in the past. Patient denied any nausea vomiting. 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 Review of Systems REVIEW OF SYSTEMS: CONSTITUTIONAL: No fever, no malaise, no fatigue. HEENT: No recent visual problems or hearing problems. Denied any sore throat. CARDIOVASCULAR: No chest pain, orthopnea, PND, no palpitations, no syncope. PULMONARY: No shortness of breath, no cough, no hemoptysis. GASTROINTESTINAL: As mentioned in HPI NEUROLOGICAL: No headaches, no weakness, no numbness. HEMATOLOGICAL: Denies any bleeding or petechiae. GENITOURINARY: Denies any burning micturition, frequency, or urgency. MUSCULOSKELETAL/RHEUMATOLOGICAL: Denies any joint pain, swelling, or any muscle pain. ENDOCRINE: Denies any polyuria or polydipsia. The rest of the 14-point review of systems is negative. 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 occasional vertigo, and R arm fracture with surgery. no longer diabetic for over 2 years now double amputation lower extrmities, aka. 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 Past Anesthesia/Blood Transfusion Reactions: No Reported Reaction Additional Past Anesthesia/Blood Transfusion Reaction / Comment(s): Pt received blood in 1978-no reaction reported. Past Psychological History: No Psychological Hx Reported Additional Psychological History / Comment(s): She is independent. She in a bilateral AKA and gets around in a power wheelchair. She has a hospital bed. She no longer drives but takes the bus. Smoking Status: Current every day smoker Past Alcohol Use History: None Reported Additional Past Alcohol Use History / Comment(s): Pt states she started smoking at age 18 yrs and the amount she smokes varies.Smoke a pack in two days Past Drug Use History: None Reported - Past Family History Father Family Medical History: Cancer, Myocardial Infarction ([place]) Additional Family Medical History / Comment(s): Father had lung cancer-went into remission. He of a massive [place] in his 60's Mother Family Medical History: Cancer Additional Family Medical History / Comment(s): Mother of lung cancer at age 54 yrs. Medications and Allergies Home Medications Medication Instructions Recorded Confirmed Type Fenofibrate 160 mg PO HS 11/15/15 05/28/19 History Atorvastatin Calcium [Lipitor] 40 mg PO HS 06/21/18 05/28/19 History Morphine Sulfate ER [Ms Contin] 30 mg PO Q12HR PRN 06/21/18 05/28/19 History cloNIDine HCL [Catapres] 0.1 mg PO BID 06/21/18 05/28/19 History Flecainide Acetate 100 mg PO DIRECTED 10/14/18 05/28/19 History Ondansetron HCl [Zofran] 8 mg PO TID PRN 10/14/18 05/28/19 History ALPRAZolam [Xanax] 0.5 mg PO BID 01/20/19 05/28/19 History Omeprazole [PriLOSEC] 20 mg PO W/SUPPER 01/20/19 05/28/19 History Warfarin [Coumadin] 2 mg PO DIRECTED 01/20/19 05/28/19 History Nitroglycerin Sl Tabs [Nitrostat] 0.4 mg SUBLINGUAL Q5M PRN 03/16/19 05/28/19 History HYDROcodone/APAP 10-325MG [[place] 1 tab PO Q6H PRN 05/25/19 05/28/19 History 10-325] Simethicone [Gas-X] 125 mg PO QID PRN 05/25/19 05/28/19 History Valsartan 160 mg PO DAILY 05/25/19 05/28/19 History Allergies Allergy/AdvReac Type Severity Reaction Status Date / Time sulfamethoxazole Allergy Itching Verified 05/28/19 18:22 [From ] trimethoprim [From Septra] Allergy Itching Verified 05/28/19 18:22 levofloxacin [From Levlucile [facility]] AdvReac Muscle Pain Verified 05/28/19 18:22 Physical Exam Vitals: Vital Signs Temp Pulse Pulse Resp BP BP Pulse Ox 05/29/19 14:44 98.8 F 64 16 163/97 96 05/29/19 07:00 98.7 F 59 L 16 150/76 95 05/29/19 03:30 16 05/29/19 00:45 76 16 05/29/19 00:28 98.5 F 63 15 146/72 96 05/28/19 20:30 63 16 05/28/19 19:52 98.5 F 73 20 174/81 96 05/28/19 19:28 97.2 F L 75 18 170/82 97 05/28/19 18:48 79 18 177/79 96 05/28/19 17:48 77 18 209/96 97 05/28/19 17:08 79 18 193/97 97 Intake and Output 05/29/19 05/29/19 05/29/19 06:59 14:59 22:59 Intake Total 600 Balance 600 Intake: Intake, IV Titration 600 Amount Sodium Chloride 0.9% 1, 600 000 ml @ 100 mls/hr IV . Q10H [facility] Rx#:[id number] Other: Voiding Method Bedpan Bedpan Incontinent Diaper Incontinent # Voids 1 2 # Bowel Movements 1 PHYSICAL EXAMINATION: GENERAL: The patient is alert and oriented x3, not in any acute distress. Well developed, well nourished. HEENT: Pupils are round and equally reacting to light. EOMI. No scleral icterus. No conjunctival pallor. Normocephalic, atraumatic. No pharyngeal erythema. No thyromegaly. CARDIOVASCULAR: S1 and S2 present. No murmurs, rubs, or gallops. PULMONARY: Chest is clear to auscultation, no wheezing or crackles. ABDOMEN: Soft, nontender, nondistended, normoactive bowel sounds. No palpable organomegaly. MUSCULOSKELETAL: No joint swelling or deformity. EXTREMITIES: No cyanosis, clubbing, or pedal edema. NEUROLOGICAL: Gross neurological examination did not reveal any focal deficits. SKIN: No rashes. Results CBC & Chem 7: 05/28/19 15:12 05/28/19 15:12 Thrombosis Risk Factor Assmnt - Choose All That Apply Any of the Below Risk Factors Present?: Yes Each Factor Represents 1 point: Age 41-60 years Thrombosis Risk Factor Assessment Total Risk Factor Score: 1 Thrombosis Risk Factor Assessment Level: Low Risk Assessment and Plan Plan: -Abdominal pain secondary to nephrolithiasis continue with IV fluids at all urology was consulted because of her continued pain patient may have opiate seeking behavior as as well -Leukocytosis reactive to suspicion of UTI is low. But for now we'll continue with Rocephin. -Recent abnormal stress test for which she is scheduled to get cardiac cathet erization tomorrow because of which cardiology evaluated the patient they plan is to elevate for the urine cultures if they're negative patient will undergo cardiac catheterization on Wednesday. -Hypertension -Dyslipidemia [place]-proximal A. fib on anti-correlation which is being held in flexion and is being held as well -Continue nicotine dependence: Counseling was provided
[2019-05-29] MEDS: PANTOPRAZOLE 40 MG TABLET PO SCH (17:23)
--- NOTE | 2019-05-29 19:20 | P.GSCN ---
History of Present Illness Consult date: 05/29/19 Reason for Consult: Renal calculi Requesting physician: Sandra Carrero History of present illness: The patient is a 63-year-old white female well-known to our service. She has a history of recurrent urolithiasis. She underwent ureteroscopic removal of a calculus [place] [address] Moreira. She underwent a left percutaneous nephrolithotomy at [facility] in May 2017. She now presents with bilateral lower abdominal and flank discomfort, greater on the left side. She was scheduled to undergo cardiac catheterization tomorrow, which appears to have been canceled. She states that she is voiding only 4-5 hours, and she is experiencing pain with micturition. Review of Systems - Constitutional Reports sweats, Denies chills, Denies fever - Gastrointestinal Reports abdominal pain, Reports nausea, Reports vomiting - Genitourinary Genitourinary: Reports dysuria, Reports flank pain, Reports kidney stones, Denies hematuria Past Medical History Past Medical History: GERD/Reflux, Hyperlipidemia, Hypertension Additional Past Medical History / Comment(s): hx urinary retention,right Nephrolithiasis, pt stated rt kidney non functioning", UTI's, patient reports she was once on insulin for diabetes but changed her diet and now does not take anything. occasional vertigo, and R arm fracture with surgery. no longer diabe tic for over 2 years now double amputation lower extrmities, aka. 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 Past Anesthesia/Blood Transfusion Reactions: No Reported Reaction Additional Past Anesthesia/Blood Transfusion Reaction / Comm: Pt received blood in 1978-no reaction reported. Past Psychological History: No Psychological Hx Reported Additional Psychological History / Comment(s): She is independent. She in a bilateral AKA and gets around in a power wheelchair. She has a hospital bed. She no longer drives but takes the bus. Smoking Status: Current every day smoker Past Alcohol Use History: None Reported Additional Past Alcohol Use History / Comment(s): Pt states she started smoking at age 18 yrs and the amount she smokes varies.Smoke a pack in two days Past Drug Use History: None Reported - Past Family History Father Family Medical History: Cancer, Myocardial Infarction ([place]) Additional Family Medical History / Comment(s): Father had lung cancer-went into remission. He of a massive [place] in his 60's Mother Family Medical History: Cancer Additional Family Medical History / Comment(s): Mother of lung cancer at age 54 yrs. Medications and Allergies Home Medications Medication Instructions Recorded Confirmed Type Fenofibrate 160 mg PO HS 11/15/15 05/28/19 History Atorvastatin Calcium [Lipitor] 40 mg PO HS 06/21/18 05/28/19 History Morphine Sulfate ER [Ms Contin] 30 mg PO Q12HR PRN 06/21/18 05/28/19 History cloNIDine HCL [Catapres] 0.1 mg PO BID 06/21/18 05/28/19 History Flecainide Acetate 100 mg PO DIRECTED 10/14/18 05/28/19 History Ondansetron HCl [Zofran] 8 mg PO TID PRN 10/14/18 05/28/19 History ALPRAZolam [Xanax] 0.5 mg PO BID 01/20/19 05/28/19 History Omeprazole [PriLOSEC] 20 mg PO W/SUPPER 01/20/19 05/28/19 History Warfarin [Coumadin] 2 mg PO DIRECTED 01/20/19 05/28/19 History Nitroglycerin Sl Tabs [Nitrostat] 0.4 mg SUBLINGUAL Q5M PRN 03/16/19 05/28/19 History HYDROcodone/APAP 10-325MG [[place] 1 tab PO Q6H PRN 05/25/19 05/28/19 History 10-325] Simethicone [Gas-X] 125 mg PO QID PRN 05/25/19 05/28/19 History Valsartan 160 mg PO DAILY 05/25/19 05/28/19 History Allergies Allergy/AdvReac Type Severity Reaction Status Date / Time sulfamethoxazole Allergy Itching Verified 05/28/19 18:22 [From Septra] trimethoprim [From Septra] Allergy Itching Verified 05/28/19 18:22 levofloxacin [From Levaquin] AdvReac Muscle Pain Verified 05/28/19 18:22 Surgical - Exam Vital Signs Temp Pulse Resp BP Pulse Ox 99.7 F H 82 16 133/108 94 L 05/28/19 15:01 05/28/19 15:01 05/28/19 15:01 05/28/19 15:01 05/28/19 15:01 - General well developed, well nourished, no distress - Neck no masses, trachea midline - Respiratory normal respiratory effort - Abdomen Soft, non-distended, with no palpable mass. There is diffuse tenderness, without guarding or rebound. - Psychiatric oriented to time, oriented to person, oriented to place, speech is normal, memory intact Results - Labs 05/28/19 15:12 05/28/19 15:12 - Imaging CT scan - abdomen: report reviewed, image reviewed Assessment and Plan (1) Renal calculus Current Visit: No Status: Acute Priority: High Code(s): N20.0 - CALCULUS OF KIDNEY SNOMED Code(s): 14622911 Plan: The etiology of Ms. Sotelo's pain is unclear. The computed tomography scan shows a 2 mm left lower pole renal calculus, non-obstructing. The right kidney is atrophic and contains a 1 cm lower pole calculus, without evidence of hydronephrosis. These findings would not be expected to cause acute pain. It is possible that she has pyelonephritis. Urinalysis was equivocal for infection. A urine culture was sent today. Unfortunately, she had already received Rocephin so it is possible that the culture will yield a false-negative result. A postvoid residual will be obtained to assess bladder emptying. Time with Patient: Greater than 30
[2019-05-29] MEDS: ATORVASTATIN 20 MG TAB PO SCH (19:26)
[2019-05-29] MEDS ORDERED: hydrALAZINE HCL 25 MG TAB PO STA (21:46)
[2019-05-30] MEDS: HYDROmorphone 0.5 MG/0.5 ML SYRINGE IVP PRN ×7 (01:01→23:13)
[2019-05-30] MEDS: HYDROcodone/APAP 10-325MG 1 EACH TAB PO PRN ×4 (02:02→19:00)
[2019-05-30 07:14] LABS: HCT 42.8 % (34.0-46.0); HGB 13.9 gm/dL (11.4-16.0); MCH 28.7 pg (25.0-35.0); MCHC 32.4 g/dL (31.0-37.0); MCV 88.4 fL (80.0-100.0); Platelet Count 320 k/uL (150-450); RBC 4.84 m/uL (3.80-5.40); RDW 14.8 % (11.5-15.5); WBC 10.3 k/uL (3.8-10.6)
[2019-05-30] MEDS: ONDANSETRON 4 MG/2 ML VIAL IVP PRN ×2 (07:48→17:02)
[2019-05-30] MEDS: cloNIDine HCL 0.1 MG TAB PO SCH ×2 (07:48→20:06)
[2019-05-30] MEDS: ALPRAZolam 0.5 MG TAB PO SCH ×2 (07:48→20:06)
[2019-05-30] MEDS ORDERED: VALSARTAN 160 MG TAB PO SCH (09:00)
[2019-05-30] MEDS ORDERED: VALSARTAN 160 MG TAB PO STA (10:10)
[2019-05-30] MEDS ORDERED: LOPERAMIDE 2 MG CAP PO PRN (10:59)
[2019-05-30 11:08] LABS: African American GFR (CKD) >90 (>60 ml/min/1.73 sqM); Anion Gap 10 mmol/L; Blood Urea Nitrogen 23 mg/dL (7-17); Calcium 8.9 mg/dL (8.4-10.2); Carbon Dioxide 20 mmol/L (22-30); Chloride 112 mmol/L (98-107); Glucose 81 mg/dL (74-99); Potassium 4.3 mmol/L (3.5-5.1); Sodium 142 mmol/L (137-145)
[2019-05-30] MEDS: SODIUM CHLORIDE 0.9% 1,000 ML IV SCH ×2 (11:56→23:45)
--- NOTE | 2019-05-30 13:45 | P.PN ---
Subjective This is a pleasant 63-year-old female past medical history significant for paroxysmal atrial fibrillation on long-term anticoagulation, dyslipidemia, hypertension, bilateral [id number] amputation and chronic nicotine dependence. She follows in the office with Dr. Prescott. She is seen and examined resting comfortably in bed in no acute distress. She states she is having abdominal/pelvic pain with dysuria and burning with urination. Abdomen is soft and mildly tender on palpitation. Urology has seen the patient and does not think the infection in the urine is from a stone. She continues to be maintained on rocephin IV. Blood pressure 189/80 heart rate 61 afebrile and maintaining oxygen saturation on room air. Laboratory data reviewed, WBC 10.3, hgb 13.9, plt 320, sodium 142, potassium 4.3, creatinine 0.54. Urine culture pending, blood culture no growth after 24 hours. GENERAL: This is a 63-year-old female in no apparent distress at the time of my examination. Obese. HEENT: Head is atraumatic, normocephalic. Pupils are equal, round. Sclerae anicteric. Conjunctivae are clear. Mucous membranes of the mouth are moist. Neck is supple. There is no jugular venous distention. No carotid bruit is heard. LUNGS: Clear to auscultation no wheezes, rales or rhonchi. No chest wall tenderness is noted on palpation or with deep breathing. HEART: Regular rate and rhythm with systolic ejection murmur at the base, no ru bs or gallops. S1 and S2 heard. EXTREMITIES: No evidence of upper extremity peripheral edema, bilateral AKA. ASSESSMENT Abnormal urinalysis with flank pain Leukocytosis History of renal calculus, non-obstructing Abnormal stress test, elective outpatient catheterization scheduled for tomorrow with Dr. Jama Hypertension Dyslipidemia Paroxysmal atrial fibrillation on mcfp anti-coagulation with coumadin. Currently on hold Chronic nicotine dependence PLAN Due to likely urinary tract infection that she is quite symptomatic from we will cancel the elective catheterization at this time. She may resume her coumdain starting today. Check PT/INR now and daily. Target INR 2-3. Follow up in the office with Dr. Prescott in 1-2 weeks and catheterization will be rescheduled when infection has resolved. She has been advised to continue holding flecanide until catheterization is complete. She is currently chest pain free with no shortness of breath or other cardiac symptoms. We will continue to follow as needed, please feel free to call with further questions or concerns. Nurse Practitioner note has been reviewed, I agree with a documented findings and plan of care. Patient was seen and examined. Objective - Vital Signs Vital signs: Vital Signs Temp 98.1 F 05/30/19 07:00 Pulse 61 05/30/19 07:00 Resp 18 05/30/19 07:00 BP 189/80 05/30/19 07:00 Pulse Ox 97 05/30/19 07:00 Intake & Output 05/29/19 05/30/19 05/30/19 18:59 06:59 18:59 Intake Total 960 236 Output Total 1100 Balance -140 236 Intake: Intake, IV Titration 600 Amount cefTRIAXone 1 gm In 600 Sodium Chloride 0.9% 50 ml @ 100 mls/hr IVPB DAILY [facility] Rx#:[id number] Oral 360 236 Output: Urine 1100 Other: Voiding Method Bedpan Bedpan Diaper Diaper Incontinent Incontinent # Voids 2 1 # Bowel Movements 1 - Labs CBC & Chem 7: 05/30/19 06:41 05/30/19 06:41 Labs: Abnormal Lab Results - Last 24 Hours (Table) 05/30/19 Range/Units 06:41 Chloride 112 H (98-107) mmol/L Carbon Dioxide 20 L (22-30) mmol/L BUN 23 H (7-17) mg/dL Microbiology - Last 24 Hours (Table) 05/28/19 17:02 Blood Culture - Preliminary Blood No Growth after 24 hours 05/29/19 14:04 Urine Culture - Preliminary Urine,Clean Catch
[2019-05-30 14:58] LABS: Prothrombin Time 10.8 sec (9.0-12.0)
[2019-05-30] MEDS: PANTOPRAZOLE 40 MG TABLET PO SCH (17:02)
[2019-05-30] MEDS ORDERED: WARFARIN 2 MG TAB PO SCH (18:00)
[2019-05-30] MEDS: ATORVASTATIN 20 MG TAB PO SCH (20:06)
[2019-05-31] MEDS: HYDROcodone/APAP 10-325MG 1 EACH TAB PO PRN ×2 (00:23→07:41)
[2019-05-31] MEDS: ONDANSETRON 4 MG/2 ML VIAL IVP PRN ×3 (00:27→13:58)
[2019-05-31] MEDS: HYDROmorphone 0.5 MG/0.5 ML SYRINGE IVP PRN ×4 (02:21→13:57)
[2019-05-31 07:24] VITALS: BP 147/61; PULSE 62; RESP 16; TEMP 98.3
[2019-05-31] MEDS: ALPRAZolam 0.5 MG TAB PO SCH (07:41)
[2019-05-31] MEDS: cloNIDine HCL 0.1 MG TAB PO SCH (07:41)
[2019-05-31 08:02] LABS: Prothrombin Time 10.5 sec (9.0-12.0)
[2019-05-31] MEDS ORDERED: VALSARTAN 160 MG TAB PO SCH (09:00)
--- NOTE | 2019-05-31 09:13 | P.PN ---
Subjective Progress Note Date: 05/30/19 Principal diagnosis: 63-year-old the female came in with complains of severe sharp in the left the lower quadrant and flank area as well as the right side. Patient is found to have nephrolithiasis bilaterally to 1 cm nonobstructive renal calculi and right side and 2 mm on the left side. Patient denied any dysuria doesn't have any fever does have leukocytosis minimal secondary to nephrolithiasis. does have abnormal urine it's from the kidney stones. Patient was started on Rocephin by ER physician but I do not believe patient has urinary tract infection at this time. Patient is supposed to get cardiac catheterization tomorrow because of which her Coumadin and Plaquenil are being held by cardiology. Apparently patient had abnormal stress test in the past. Patient denied any nausea vomiting. 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 05/30/2019 Patient is sitting up in bed in mild acute distress stating that she has abdominal pain with diarrhea and is requesting something for that. Cardiology is following as she is supposed to undergo a cardiac catheterization once stabilized. Patient states that the procedure was canceled for today if she is too ill to undergo cardiac catheterization at this time. Will continue to monitor closely. Patient denies any chest pain, shortness of breath, or palpit ations at this time. Patient is afebrile. Patient denies any nausea or vomiting but is having some abdominal discomfort with diarrhea as mentioned previously. Guarded prognosis. Objective - Vital Signs Vital signs: Vital Signs Temp 98.3 F 05/31/19 07:00 Pulse 62 05/31/19 07:00 Resp 16 05/31/19 07:00 BP 147/61 05/31/19 07:00 Pulse Ox 97 05/31/19 07:00 Intake & Output 05/30/19 05/31/19 05/31/19 18:59 06:59 18:59 Intake Total 708 450 Output Total 850 Balance 708 -400 Intake: Intake, IV Titration 450 Amount Sodium Chloride 0.9% 1, 450 000 ml @ 75 mls/hr IV . [id number] [facility] Rx#:[id number] Oral 708 Output: Urine 850 Other: Voiding Method Bedpan Diaper Incontinent # Voids 1 # Bowel Movements 1 2 - Exam GENERAL: The patient is alert and oriented x3, not in any acute distress. Well developed, well nourished. HEENT: Pupils are round and equally reacting to light. EOMI. No scleral icterus. No conjunctival pallor. Normocephalic, atraumatic. No pharyngeal erythema. No thyromegaly. CARDIOVASCULAR: S1 and S2 present. No murmurs, rubs, or gallops. PULMONARY: Chest is clear to auscultation, no wheezing or crackles. ABDOMEN: Soft, nontender, nondistended, normoactive bowel sounds. No palpable organomegaly. MUSCULOSKELETAL: No joint swelling or deformity. EXTREMITIES: No cyanosis, clubbing, or pedal edema. NEUROLOGICAL: Gross neurological examination did not reveal any focal deficits. SKIN: No rashes. - Labs CBC & Chem 7: 05/30/19 06:41 05/30/19 06:41 Labs: Abnormal Lab Results - Last 24 Hours (Table) 05/30/19 Range/Units 06:41 Chloride 112 H (98-107) mmol/L Carbon Dioxide 20 L (22-30) mmol/L BUN 23 H (7-17) mg/dL Microbiology - Last 24 Hours (Table) 05/29/19 14:04 Urine Culture - Final Urine,Clean Catch 05/28/19 17:02 Blood Culture - Preliminary Blood No Growth after 48 hours Assessment and Plan Assessment: -Abdominal pain secondary to nephrolithiasis continue with IV fluids. urology was consulted because of her continued pain patient may have opiate seeking behavior as well. Patient does see a pain specialist in the outpatient setting. -Leukocytosis reactive to suspicion of UTI is low. But for now we'll continue with Rocephin. Urine and blood cultures thus far are negative -Recent abnormal stress test for which she is scheduled to get cardiac catheterization tomorrow because of which cardiology evaluated the patient they plan is to await for the urine cultures if they're negative patient will undergo cardiac catheterization on Wednesday. Cardiology has decided to cancel the cardiac catheterization at this time and patient will follow-up with Dr. Villa in the office in 1-2 weeks once the infection has cleared and patient is less symptomatic. Patient will resume her Coumadin. Await repeat INR in the morning to ensure a therapeutic level 2-3. -Hypertension -Dyslipidemia -proximal A. fib on anti-coagulation of Coumadin which is being resumed per cardiology recommendations and cardiac catheterization will be rescheduled. -Continue nicotine dependence: Counseling was provided
[2019-05-31] MEDS ORDERED: WARFARIN 2 MG TAB PO ONE (18:00)
[2019-06-01] MEDS ORDERED: WARFARIN 2 MG TAB PO SCH (18:00)
--- NOTE | 2019-06-05 08:57 | P.DS ---
Providers Date of admission: 05/28/19 18:03 Expected date of discharge: 05/31/19 Attending physician: Keeley Gacsa Consults: 05/29/19 12:28 Consult Physician Routine Consulting Provider: Rudolph Moreira Consult Reason/Comments: Renal caliculi Do you want consulting provider notified?: Yes 05/29/19 12:33 Consult Physician Routine Consulting Provider: Juan Antonio aJma Consult Reason/Comments: scheduled cath tommorow Do you want consulting provider notified?: Yes Primary care physician: Dick Nguyen Hospital Course: Final diagnosis -Abdominal pain secondary to nephrolithiasis -Leukocytosis -Recent abnormal stress test -Hypertension -Dyslipidemia -Paroxysmal atrial fibrillation -Continued nicotine dependence: Counseling was provided Discharge disposition Patient is being discharged in a stable condition with guarded prognosis to home and will follow-up with primary care provider upon discharge. Patient will also be following up with Dr. Nagy for pain management in the outpatient setting. Patient will complete a short course of oral antibiotics in the form of Ceftin upon discharge. Total time taken is 35 minutes. History of present illness This is an 63-year-old female who was recently admitted for abdominal pain secondary to kidney stones and was being closely monitored. During hospitalization urinalysis was done showing urinary tract infection and patient was on IV antibiotics and will continue on a short course of oral antibiotics in the form of Ceftin upon discharge. Patient will follow-up with primary care provider upon discharge resources provided for [facility] provider as she states Dr. Nguyen will no longer see her. Patient will also be following up with Dr. Nagy for pain management. She will follow up with cardiology in 1-2 weeks once she is stabilized to discuss cardiac catheterization she had a recent stress test that was abnormal. Currently patient denies any chest pain, shortness of breath, or palpitations. Patient is afebrile. Patient denies any vomiting but is having intermittent periods of nausea she states is due to the pain. Patient continues to have pain in the left flank area. Patient states that she is urinating more often and is having pain with urination and with bowel movements. Patient has chronic pain. During hospitalization patient continues to request IV pain medications as she normally takes morphine and [place] at home. Patient was to undergo a cardiac catheterization with cardiology but due to her recent infection cardiology has canceled this and will follow-up with her in the outpatient setting to have this done. Currently patient's condition is stable and is ready for discharge. Guarded prognosis. On exam vital signs are stable. Temp is 98.3 degrees Fahrenheit, pulse is 62 , Blood pressure is 147/61 , respirations are 16 , Oxygen saturation is 97% on room air. Cardio S1 and S2 are present. Respiratory system shows diminished breath sounds at the bases otherwise clear to auscultation. Abdomen is soft and with mild tenderness on the lower left abdomen. Nervous system shows no focal deficits Please refer to medication reconciliation sheet for a list of medications. Patient Condition at Discharge: Fair Plan - Discharge Summary Discharge Rx Participant: No New Discharge Prescriptions: New Cefuroxime Axetil [Ceftin] 500 mg PO BID 5 Days #10 tab Valsartan [Diovan] 320 mg PO DAILY 30 Days #60 tab Loperamide [Imodium] 2 mg PO QID PRN #30 cap PRN Reason: Diarrhea Continue Fenofibrate 160 mg PO HS Atorvastatin Calcium [Lipitor] 40 mg PO HS cloNIDine HCL [Catapres] 0.1 mg PO BID Warfarin [Coumadin] 2 mg PO DIRECTED Omeprazole [PriLOSEC] 20 mg PO W/SUPPER ALPRAZolam [Xanax] 0.5 mg PO BID Nitroglycerin Sl Tabs [Nitrostat] 0.4 mg SUBLINGUAL Q5M PRN PRN Reason: Chest Pain Simethicone [Gas-X] 125 mg PO QID PRN PRN Reason: gas Morphine Sulfate ER [Ms Contin] 30 mg PO Q12HR PRN #12 tab PRN Reason: Pain HYDROcodone/APAP 10-325MG [[place] 10-325] 1 tab PO Q6H PRN #12 tab PRN Reason: Pain Ondansetron HCl [Zofran] 8 mg PO TID PRN #12 tab PRN Reason: Nausea Discontinued Flecainide Acetate 100 mg PO DIRECTED Valsartan 160 mg PO DAILY Discharge Medication List Fenofibrate 160 mg PO HS 11/15/15 [History] Atorvastatin Calcium [Lipitor] 40 mg PO HS 06/21/18 [History] cloNIDine HCL [Catapres] 0.1 mg PO BID 06/21/18 [History] ALPRAZolam [Xanax] 0.5 mg PO BID 01/20/19 [History] Omeprazole [PriLOSEC] 20 mg PO W/SUPPER 01/20/19 [History] Warfarin [Coumadin] 2 mg PO DIRECTED 01/20/19 [History] Nitroglycerin Sl Tabs [Nitrostat] 0.4 mg SUBLINGUAL Q5M PRN 03/16/19 [History] Simethicone [Gas-X] 125 mg PO QID PRN 05/25/19 [History] Cefuroxime Axetil [Ceftin] 500 mg PO BID 5 Days #10 tab 05/31/19 [Rx] HYDROcodone/APAP 10-325MG [[place] 10-325] 1 tab PO Q6H PRN #12 tab 05/31/19 [Rx] Loperamide [Imodium] 2 mg PO QID PRN #30 cap 05/31/19 [Rx] Morphine Sulfate ER [Ms Contin] 30 mg PO Q12HR PRN #12 tab 05/31/19 [Rx] Ondansetron HCl [Zofran] 8 mg PO TID PRN #12 tab 05/31/19 [Rx] Valsartan [Diovan] 320 mg PO DAILY 30 Days #60 tab 05/31/19 [Rx] Follow up Appointment(s)/Referral(s): Issac Prescott MD [STAFF PHYSICIAN] - 06/08/19 9:30 am Sandra Mims MD [REFERRING] - 1-2 Days (New patient appointment. Please call office to make appointment) Elvi Nagy MD [Medical Doctor] - 1 Week (Please call office to make appointment . Per office) Ambulatory/Diagnostic Orders: Prothrombin Time INR [LAB.AMB] Time Frame: 2 Days, Location: None Selected Activity/Diet/Wound Care/Special Instructions: Activity Limited until follow-up Follow-up with primary care provider upon discharge, resources given his current provider isn't accepting Continue taking Coumadin and take 4 mg for 2 days and repeat blood work and then resume 2 mg daily if INR is therapeutic at 2-3 Follow-up with Dr. Nagy in one week Continue current diet and advance as tolerated Complete a full course of antibiotics Follow-up with urology in the outpatient setting Discharge Disposition: HOME SELF-CARE
== END 2019-05-31 15:07 | disposition home or self-care (01) | DRG 694 ==
LOC: EC 14:54 → 4SSUR 18:03
PROVIDERS: ADMIT Hospitalist; ATTEND Hospitalist
DX: N20.0 Calculus of kidney (principal); N39.0 Urinary tract infection, site not specified; E11.9 Type 2 diabetes mellitus without complications; I48.0 Paroxysmal atrial fibrillation; F17.200 Nicotine dependence, unspecified, uncomplicated; E66.9 Obesity, unspecified; E78.5 Hyperlipidemia, unspecified; G89.29 Other chronic pain; I10 Essential (primary) hypertension; K21.9 Gastro-esophageal reflux disease without esophagitis; K59.00 Constipation, unspecified; R94.39 Abnormal result of other cardiovascular function study; Z53.9 Procedure and treatment not carried out, unspecified reason; Z79.01 Long term (current) use of anticoagulants; Z68.29 Body mass index [BMI] 29.0-29.9, adult; Z79.4 Long term (current) use of insulin; Z79.899 Other long term (current) drug therapy; Z80.1 Family history of malignant neoplasm of trachea, bronchus and lung; Z82.49 Family history of ischemic heart disease and other diseases of the circulatory system; Z86.2 Personal history of diseases of the blood and blood-forming organs and certain disorders involving the immune mechanism; Z89.611 Acquired absence of right leg above knee; Z87.442 Personal history of urinary calculi; Z89.612 Acquired absence of left leg above knee; Z90.710 Acquired absence of both cervix and uterus; Z98.1 Arthrodesis status; Z98.891 History of uterine scar from previous surgery; Z90.49 Acquired absence of other specified parts of digestive tract; Z98.890 Other specified postprocedural states
CPT/HCPCS: 36415; 74176; 80048; 80053; 81001; 82150; 83605; 83690; 85025; 85027; 85610; 87040; 87086; 96361; 96374; 96375; 96376; 99285

== ENCOUNTER → 2019-06-02 | Outpatient (CLI) | payer OTHER ==
[2019-06-02 16:42] LABS: INR 1.2 (<1.2); Prothrombin Time 12.3 sec (9.0-12.0)
== END | disposition home or self-care (01) ==
LOC: LABWHC1 15:39
PROVIDERS: ATTEND Registered Nurse
DX: Z51.81 Encounter for therapeutic drug level monitoring (principal); Z79.01 Long term (current) use of anticoagulants
CPT/HCPCS: 36415; 85610

== ENCOUNTER 2019-07-03 16:08 | Inpatient (IN) | payer OTHER ==
[2019-07-03] MEDS ORDERED: KETOROLAC 30 MG/ML 1 ML VIAL IVP STA (16:27)
[2019-07-03] MEDS ORDERED: ONDANSETRON 4 MG/2 ML VIAL IVP STA (16:27)
[2019-07-03] MEDS ORDERED: SODIUM CHLORIDE 0.9% 1,000 ML IV STA ×2 (16:27→18:19)
--- NOTE | 2019-07-03 16:46 | ED ---
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 Patient states she has a history of kidney stones. Patient states she sees a pain management doctor and is due to see them on Wednesday. Patient admits to nausea, vomiting last night. Patient admits to an episode diarrhea today. Patient denies history of fever although she does present today with a temp of 100.7. Patient normally takes [place] and morphine however she has been out for the last 3 days. Patient denies chills, chest pain, shortness of breath. Patient has been having regular bowel movements. Patient has no other complaints at this time. Upon arrival to the ER vital signs are stable. - Related Data Home Medications Medication Instructions Recorded Confirmed Fenofibrate 160 mg PO HS 11/15/15 05/28/19 Atorvastatin Calcium [Lipitor] 40 mg PO HS 06/21/18 05/28/19 cloNIDine HCL [Catapres] 0.1 mg PO BID 06/21/18 05/28/19 ALPRAZolam [Xanax] 0.5 mg PO BID 01/20/19 05/28/19 Omeprazole [PriLOSEC] 20 mg PO W/SUPPER 01/20/19 05/28/19 Warfarin [Coumadin] 2 mg PO DIRECTED 01/20/19 05/28/19 Nitroglycerin Sl Tabs [Nitrostat] 0.4 mg SUBLINGUAL Q5M PRN 03/16/19 05/28/19 Simethicone [Gas-X] 125 mg PO QID PRN 05/25/19 05/28/19 Previous Rx's Medication Instructions Recorded Cefuroxime Axetil [Ceftin] 500 mg PO BID 5 Days #10 tab 05/31/19 HYDROcodone/APAP 10-325MG [[place] 1 tab PO Q6H PRN #12 tab 05/31/19 10-325] Loperamide [Imodium] 2 mg PO QID PRN #30 cap 05/31/19 Morphine Sulfate ER [Ms Contin] 30 mg PO Q12HR PRN #12 tab 05/31/19 Ondansetron HCl [Zofran] 8 mg PO TID PRN #12 tab 05/31/19 Valsartan [Diovan] 320 mg PO DAILY 30 Days #60 tab 05/31/19 Allergies Allergy/AdvReac Type Severity Reaction Status Date / Time sulfamethoxazole Allergy Itching Verified 05/28/19 18:22 [From Septra] trimethoprim [From Septra] Allergy Itching Verified 05/28/19 18:22 levofloxacin [From Levaquin] AdvReac Muscle Pain Verified 05/28/19 18:22 Review of Systems ROS Statement: Those systems with pertinent positive or pertinent negative responses have been documented in the HPI. ROS Other: All systems not noted in ROS Statement are negative. 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 occasional vertigo, and R arm fracture with surgery. no longer diabetic for over 2 years now double amputation lower extrmities, aka. 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 Past Anesthesia/Blood Transfusion Reactions: No Reported Reaction Additional Past Anesthesia/Blood Transfusion Reaction / Comment(s): Pt received blood in 1978-no reaction reported. Past Psychological History: No Psychological Hx Reported Smoking Status: Current every day smoker Past Alcohol Use History: None Reported Past Drug Use History: None Reported - Past Family History Father Family Medical History: Cancer, Myocardial Infarction ([place]) Additional Family Medical History / Comment(s): Father had lung cancer-went into remission. He of a massive [place] in his 60's Mother Family Medical History: Cancer Additional Family Medical History / Comment(s): Mother of lung cancer at age 54 yrs. General Exam - General Exam Comments Initial Comments: GENERAL: Disheveled, uncomfortable secondary to pain. HEAD: Atraumatic, normocephalic. EYES: Pupils equal round and reactive to light, extraocular movements intact, sclera anicteric, conjunctiva are normal. ENT: TMs normal, nares patent, oropharynx clear without exudates. Moist mucous membranes. NECK: Normal range of motion, supple without lymphadenopathy or JVD. LUNGS: Breath sounds clear to auscultation bilaterally and equal. No wheezes rales or rhonchi. HEART: Regular rate and rhythm without murmurs, rubs or gallops. ABDOMEN: Pain with palpation of the left lower quadrant and left side of abdomen. Soft, normoactive bowel sounds. No guarding, no rebound. No masses appreciated. : Deferred EXTREMITIES: Bilateral AKA. No pitting or edema. No clubbing or cyanosis. NEUROLOGICAL: Normal speech. PSYCH: Normal mood, normal affect. SKIN: Warm, Dry, normal turgor, no rashes or lesions noted. Limitations: no limitations Course Vital Signs 07/03/19 16:14 Temperature 100.0 F H Pulse Rate 88 Respiratory 16 Rate Blood Pressure 197/111 O2 Sat by Pulse 99 Oximetry Medical Decision Making - Medical Decision Making Patient is a 64-year-old female presenting with left-sided flank pain as well as left-sided abdominal pain since morning. Patient had episode of vomiting. Patient arrived febrile at 100.0. BP is 197/111. Labs show slight leukocytosis of 11.8. INR is elevated at 4.7. CO2 17. BUN is elevated at 27. Lipase is 482. Urine shows nitrate positive. CT the abdomen shows findings of chronic colitis. Bilateral nonobstructing renal calculi. Patient will be admitted for IV antibiotics and pain control. Patient is agreeable with this plan and care. Patient was accepted by Dr. Armijo. Case discussed with Dr. Vigil who agrees this plan of care. - Lab Data Result diagrams: 07/03/19 16:45 07/03/19 16:45 Lab Results 07/03/19 07/03/19 07/03/19 Range/Units 16:45 16:45 16:45 WBC 11.8 H (3.8-10.6) k/uL RBC 5.69 H (3.80-5.40) m/uL Hgb 16.4 H (11.4-16.0) gm/dL Hct 48.8 H (34.0-46.0) % MCV 85.9 (80.0-100.0) fL MCH 28.9 (25.0-35.0) pg MCHC 33.6 (31.0-37.0) g/dL RDW 14.4 (11.5-15.5) % Plt Count 404 (150-450) k/uL Neutrophils % 77 % Lymphocytes % 18 % Monocytes % 3 % Eosinophils % 1 % Basophils % 0 % Neutrophils # 9.1 H (1.3-7.7) k/uL Lymphocytes # 2.1 (1.0-4.8) k/uL Monocytes # 0.3 (0-1.0) k/uL Eosinophils # 0.1 (0-0.7) k/uL Basophils # 0.0 (0-0.2) k/uL PT (9.0-12.0) sec INR (<1.2) APTT (22.0-30.0) sec Sodium 143 (137-145) mmol/L Potassium 4.1 (3.5-5.1) mmol/L Chloride 114 H (98-107) mmol/L Carbon Dioxide 17 L (22-30) mmol/L Anion Gap 12 mmol/L BUN 27 H (7-17) mg/dL Creatinine 0.54 (0.52-1.04) mg/dL Est GFR (CKD-EPI)AfAm >90 (>60 ml/min/1.73 sqM) Est GFR (CKD-EPI)NonAf >90 (>60 ml/min/1.73 sqM) Glucose 97 (74-99) mg/dL Plasma Lactic Acid Joshua 0.7 (0.7-2.0) mmol/L Calcium 10.1 (8.4-10.2) mg/dL Total Bilirubin 0.6 (0.2-1.3) mg/dL AST 26 (14-36) U/L ALT 21 (9-52) U/L Alkaline Phosphatase 57 (38-126) U/L Total Protein 7.5 (6.3-8.2) g/dL Albumin 4.4 (3.5-5.0) g/dL Amylase 58 (30-110) U/L Lipase 482 H (23-300) U/L Urine Color Urine Appearance (Clear) Urine pH (5.0-8.0) Ur Specific [place] (1.001-1.035) Urine Protein (Negative) Urine Glucose (UA) (Negative) Urine Ketones (Negative) Urine Blood (Negative) Urine Nitrite (Negative) Urine Bilirubin (Negative) Urine Urobilinogen (<2.0) mg/dL Ur Leukocyte Esterase (Negative) Urine RBC (0-5) /hpf Urine WBC (0-5) /hpf Urine WBC Clumps (None) /hpf Ur Squamous Epith Cells (0-4) /hpf Urine Bacteria (None) /hpf Urine Mucus (None) /hpf 07/03/19 07/03/19 Range/Units 16:45 17:38 WBC (3.8-10.6) k/uL RBC (3.80-5.40) m/uL Hgb (11.4-16.0) gm/dL Hct (34.0-46.0) % MCV (80.0-100.0) fL MCH (25.0-35.0) pg MCHC (31.0-37.0) g/dL RDW (11.5-15.5) % Plt Count (150-450) k/uL Neutrophils % % Lymphocytes % % Monocytes % % Eosinophils % % Basophils % % Neutrophils # (1.3-7.7) k/uL Lymphocytes # (1.0-4.8) k/uL Monocytes # (0-1.0) k/uL Eosinophils # (0-0.7) k/uL Basophils # (0-0.2) k/uL PT 45.6 H (9.0-12.0) sec INR 4.7 H (<1.2) APTT 43.8 H (22.0-30.0) sec Sodium (137-145) mmol/L Potassium (3.5-5.1) mmol/L Chloride (98-107) mmol/L Carbon Dioxide (22-30) mmol/L Anion Gap mmol/L BUN (7-17) mg/dL Creatinine (0.52-1.04) mg/dL Est GFR (CKD-EPI)AfAm (>60 ml/min/1.73 sqM) Est GFR (CKD-EPI)NonAf (>60 ml/min/1.73 sqM) Glucose (74-99) mg/dL Plasma Lactic Acid Joshua (0.7-2.0) mmol/L Calcium (8.4-10.2) mg/dL Total Bilirubin (0.2-1.3) mg/dL AST (14-36) U/L ALT (9-52) U/L Alkaline Phosphatase (38-126) U/L Total Protein (6.3-8.2) g/dL Albumin (3.5-5.0) g/dL Amylase (30-110) U/L Lipase (23-300) U/L Urine Color Yellow Urine Appearance Cloudy H (Clear) Urine pH 5.5 (5.0-8.0) Ur Specific [place] 1.021 (1.001-1.035) Urine Protein Trace H (Negative) Urine Glucose (UA) Negative (Negative) Urine Ketones Negative (Negative) Urine Blood Small H (Negative) Urine Nitrite Positive H (Negative) Urine Bilirubin Negative (Negative) Urine Urobilinogen <2.0 (<2.0) mg/dL Ur Leukocyte Esterase Large H (Negative) Urine RBC 1 (0-5) /hpf Urine WBC 152 H (0-5) /hpf Urine WBC Clumps Few H (None) /hpf Ur Squamous Epith Cells 1 (0-4) /hpf Urine Bacteria Many H (None) /hpf Urine Mucus Moderate H (None) /hpf Disposition Clinical Impression: Pyelonephritis, Left flank pain Disposition: ADMITTED IP TO THIS [facility] Condition: Stable Is patient prescribed a controlled substance at d/c from ED?: No Referrals: None,Stated [Primary Care Provider] - 1-2 days Decision Date: 07/03/19 Decision Time: 18:26
[2019-07-03] MEDS ORDERED: ONDANSETRON ODT 8 MG TAB.RAPDIS PO STA (16:50)
[2019-07-03] MEDS ORDERED: KETOROLAC 30 MG/ML 1 ML VIAL IM STA (16:50)
[2019-07-03] MEDS ORDERED: ONDANSETRON ODT 4 MG TAB PO STA (16:54)
[2019-07-03 16:58] LABS: Basophils % (A) 0 %; Eosinophils # (A) 0.1 k/uL (0-0.7); Eosinophils % (A) 1 %; HCT 48.8 % (34.0-46.0); HGB 16.4 gm/dL (11.4-16.0); Lymphocytes # (A) 2.1 k/uL (1.0-4.8); Lymphocytes % (A) 18 %; MCH 28.9 pg (25.0-35.0); MCHC 33.6 g/dL (31.0-37.0); MCV 85.9 fL (80.0-100.0); Mean Platelet Volume 7.4; Monocytes # (A) 0.3 k/uL (0-1.0); Monocytes % (A) 3 %; Neutrophils # (A) 9.1 k/uL (1.3-7.7); Neutrophils % (A) 77 %; Platelet Count 404 k/uL (150-450); RBC 5.69 m/uL (3.80-5.40); RDW 14.4 % (11.5-15.5); WBC 11.8 k/uL (3.8-10.6)
[2019-07-03 17:07] LABS: INR 4.7 (<1.2); Partial Thromboplastin Time 43.8 sec (22.0-30.0); Prothrombin Time 45.6 sec (9.0-12.0)
[2019-07-03 17:10] LABS: ALT 21 U/L (9-52); AST 26 U/L (14-36); African American GFR (CKD) >90 (>60 ml/min/1.73 sqM); Albumin 4.4 g/dL (3.5-5.0); Alkaline Phosphatase 57 U/L (38-126); Amylase 58 U/L (30-110); Anion Gap 12 mmol/L; Blood Urea Nitrogen 27 mg/dL (7-17); Calcium 10.1 mg/dL (8.4-10.2); Carbon Dioxide 17 mmol/L (22-30); Chloride 114 mmol/L (98-107); Glucose 97 mg/dL (74-99); Non-African American GFR(CKD) >90 (>60 ml/min/1.73 sqM); Potassium 4.1 mmol/L (3.5-5.1); Sodium 143 mmol/L (137-145); Total Bilirubin 0.6 mg/dL (0.2-1.3); Total Protein 7.5 g/dL (6.3-8.2)
--- NOTE | 2019-07-03 17:34 | CT ---
EXAMINATION TYPE: CT abdomen pelvis wo con DATE OF EXAM: 07/03/2019 COMPARISON: 05/28/2019 HISTORY: Left sided abdominal pain. CT DLP: 1753 mGycm Automated exposure control for dose reduction was used. TECHNIQUE: Helical acquisition of images was performed from the lung bases through the pelvis. FINDINGS: LUNG BASES: No significant abnormality is appreciated. LIVER/GB: Unremarkable unenhanced morphology. PANCREAS: No significant abnormality is seen. SPLEEN: No significant abnormality is seen. ADRENALS: No significant abnormality is seen. KIDNEYS: Right renal atrophy is seen. There is redemonstration of bilateral nonobstructing renal calc humberto with 2 mm left lower pole renal calculus and 1.2 cm right lower pole renal calculus. 1.8 cm right renal cyst is seen of the superior pole. Lobulated Contour the kidneys. Limited evaluation for renal mass given the lack of intravenous contrast. Lobulated contours this typically of the left superior pole is seen and renal ultrasound is recommended to ensure no mass. FREE AIR: No free air is visualized ADENOPATHY: No greater than 1 cm short axis lymph node in the abdomen or pelvis. REPRODUCTIVE ORGANS: Hysterectomy URINARY BLADDER: No significant abnormality is seen. OSSEOUS STRUCTURES: Deformity of the left femoral head and neck may be on the basis of prior fractur e or arthropathy. Small bilateral joint effusions are suspected of the femoral acetabular joints. Mod erate multilevel degenerative disc disease. BOWEL: Circumferential thickening of the distal esophagus and small hiatal hernia. Lack of haustrati on of the colon and submucosal deposition of fat in the transverse and ascending colon suggest chroni c colitis. OTHER: Postsurgical change of the ventral abdominal wall and rectus abdominal musculature atrophy. IMPRESSION: 1. NO CT FINDING TO CORRESPOND TO THE PATIENT'S ACUTE ABDOMINAL PAIN. 2. FINDINGS SUGGESTING CHRONIC COLITIS. CONSIDER INFLAMMATORY BOWEL DISEASE. 3. BILATERAL NONOBSTRUCTING RENAL CALCULI. 4. LOBULATED CONTOUR OF THE LEFT KIDNEY. NONEMERGENT FOLLOW-UP RENAL ULTRASOUND IS RECOMMENDED TO EXC LUDE MASS.
[2019-07-03 17:59] LABS: Appearance,Urine Cloudy (Clear); Bacteria,Urine Many /hpf; Bilirubin,Urine Negative (Negative); Blood,Urine Small (Negative); Color,Urine Yellow; Glucose,Urine (UA) Negative (Negative); Ketones,Urine Negative (Negative); Leukocyte Esterase,Urine Large (Negative); Mucus,Urine Moderate /hpf; Nitrite,Urine Positive (Negative); PH, Urine 5.5 (5.0-8.0); Protein,Urine Trace (Negative); RBC,Urine 1 /hpf (0-5); Specific Gravity,Urine 1.021 (1.001-1.035); Squamous Epithelial Cell,Urine 1 /hpf (0-4); Urobilinogen,Urine <2.0 mg/dL (<2.0); WBC,Urine 152 /hpf (0-5)
[2019-07-03] MEDS ORDERED: NALOXONE 0.4 MG/ML 1 ML VIAL IV PRN (18:27)
[2019-07-03] MEDS ORDERED: MORPHINE SULFATE 4 MG/ML SYRINGE IV PRN (18:27)
[2019-07-03] MEDS ORDERED: KETOROLAC 30 MG/ML 1 ML VIAL IVP PRN (18:27)
[2019-07-03] MEDS ORDERED: ACETAMINOPHEN TAB 325 MG TAB PO PRN (18:27)
[2019-07-03] MEDS: SODIUM CHLORIDE 0.9% 1,000 ML IV SCH (18:36)
[2019-07-03] MEDS ORDERED: MORPHINE SULFATE ER 30 MG TABLET PO PRN (20:34)
[2019-07-03] MEDS ORDERED: WARFARIN 0.5 MG TAB PO ONE (21:15)
[2019-07-03] MEDS: cloNIDine HCL 0.1 MG TAB PO SCH (21:35)
[2019-07-03] MEDS: FENOFIBRATE 160 MG TAB PO SCH (21:36)
[2019-07-03] MEDS: FLECAINIDE 50 MG TAB PO SCH (21:36)
[2019-07-03] MEDS: DOCUSATE 100 MG CAP PO SCH (21:36)
[2019-07-03] MEDS: ALPRAZolam 0.5 MG TAB PO SCH (21:36)
[2019-07-03] MEDS: ATORVASTATIN 20 MG TAB PO SCH (21:36)
[2019-07-03] MEDS: HYDROcodone/APAP 10-325MG 1 EACH TAB PO PRN (21:37)
[2019-07-03] MEDS: HYDROmorphone 0.5 MG/0.5 ML SYRINGE IVP PRN (22:30)
--- NOTE | 2019-07-04 00:48 | P.HPIM ---
History of Present Illness H&P Date: 07/03/19 Chief Complaint: Severe abdominal pain of one-day duration 64-year-old female with history of above-knee amputation bilaterally since childhood, paroxysmal A. fib on Coumadin, recurrent UTI Patient comes in today due to 1 day history of suprapubic abdominal pain severe in nature 8 out of 10 in severity sharp pain radiating to bilateral groins and the back. Associated with one-week history of urinary incontinence however today she was having urinary retention, she was feeling nauseous today. Denies any fevers but reports chills denies any vomiting she reports that nothing helps with the pain but she tried to apply heat today which has increased the pain. She reports that a month ago she had urinary tract infection for which she was treated. She reports some concerns regarding bladder cancer as her sister was diagnosed with that. But she denies any hematuria denies any weight changes that are unintentional denies any history of exposure to any chemicals. Patient reports history of kidney stones and that one of her kidneys are nonfunctional. Otherwise she denies any chest pain or trouble breathing. She reports some nosebleed 2 days ago that was easily controlled. She also reports some diarrhea that is currently improving. Patient has bilateral above-knee amputation since childhood when she was 6 years old. She admits to daily smoking half a pack a day denies any drug of abuse or alcohol She reports that she is on MS Contin twice daily with [place]'s every 4 hours due to chronic low back pain In the ED she was found to have urinary tract infection with severe pain she was admitted for further management Review of Systems Pertinent positives as noted in HPI. All other systems were reviewed and are negative Past Medical History Past Medical History: GERD/Reflux, Hyperlipidemia, Hypertension Additional Past Medical History / Comment(s): hx urinary retention,right Nephrolithiasis, pt stated rt kidney non functioning", UTI's, patient reports she was once on insulin for diabetes but changed her diet and now does not take anything. occasional vertigo, and R arm fracture with surgery. no longer diabetic for over 2 years now double amputation lower extrmities, aka. 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 Past Anesthesia/Blood Transfusion Reactions: No Reported Reaction Additional Past Anesthesia/Blood Transfusion Reaction / Comment(s): Pt received blood in 1978-no reaction reported. Past Psychological History: No Psychological Hx Reported Additional Psychological History / Comment(s): She is independent. She in a bilateral AKA and gets around in a power wheelchair. She has a hospital bed. She no longer drives but takes the bus. Smoking Status: Current every day smoker Past Alcohol Use History: None Reported Additional Past Alcohol Use History / Comment(s): Pt states she started smoking at age 18 yrs and the amount she smokes varies.Smoke a pack in two days Past Drug Use History: None Reported - Past Family History Father Family Medical History: Cancer, Myocardial Infarction ([place]) Additional Family Medical History / Comment(s): Father had lung cancer-went into remission. He of a massive [place] in his 60's Mother Family Medical History: Cancer Additional Family Medical History / Comment(s): Mother of lung cancer at age 54 yrs. Medications and Allergies Home Medications Medication Instructions Recorded Confirmed Type Fenofibrate 160 mg PO HS 11/15/15 07/03/19 History Atorvastatin Calcium [Lipitor] 40 mg PO HS 06/21/18 07/03/19 History cloNIDine HCL [Catapres] 0.05 mg PO TID 06/21/18 07/03/19 History ALPRAZolam [Xanax] 0.5 mg PO BID 01/20/19 07/03/19 History Warfarin [Coumadin] 2 mg PO HS 01/20/19 07/03/19 History Nitroglycerin Sl Tabs [Nitrostat] 0.4 mg SUBLINGUAL Q5M PRN 03/16/19 07/03/19 History HYDROcodone/APAP 10-325MG [[place] 1 tab PO Q6H PRN #12 tab 05/31/19 07/03/19 Rx 10-325] Morphine Sulfate ER [Ms Contin] 30 mg PO Q12HR PRN #12 tab 05/31/19 07/03/19 Rx Ondansetron HCl [Zofran] 8 mg PO TID PRN #12 tab 10/30/19 12/02/19 Rx Valsartan [Diovan] 320 mg PO DAILY 30 Days #60 tab 05/31/19 07/03/19 Rx Docusate [Colace] 100 mg PO BID 07/03/19 07/03/19 History Flecainide Acetate 100 mg PO Q12H 07/03/19 07/03/19 History Allergies Allergy/AdvReac Type Severity Reaction Status Date / Time sulfamethoxazole Allergy Itching Verified 07/03/19 18:52 [From Septra] trimethoprim [From [facility]ra] Allergy Itching Verified 07/03/19 18:52 [facility] AdvReac Muscle Pain Verified 07/03/19 18:52 Physical Exam Vitals: Vital Signs Temp Pulse Resp BP Pulse Ox 07/03/19 18:40 98.9 F 07/03/19 18:37 79 16 179/92 99 07/03/19 16:14 100.0 F H 88 16 197/111 99 Intake and Output 07/03/19 07/03/19 07/03/19 06:59 14:59 22:59 Other: Weight 54.431 kg Constitutional: No acute distress, conversant, pleasant Eyes: Anicteric sclerae, moist conjunctiva, no lid-lag Pupils equal round reactive to light ENMT: NC/AT Oropharynx clear, no erythema, exudates Neck: Supple, FROM, no masses, or JVD No carotid bruits No thyromegaly Lungs: Clear to auscultation Clear to percussion Normal respiratory effort, no accessory muscle use Cardiovascular: Heart regular in rate and rhythm, No murmurs, gallops, or rubs [id number]-[id number] amputation bilaterally Abdominal: Soft, tenderness to palpation of the suprapubic region, no guarding rebound or rigidity, tenderness to palpation of the left costovertebral angle Abdomen moving with respiration Normoactive bowel sounds No hepatomegaly, No splenomegaly No palpable mass No abdominal wall hernia noted Skin: Normal temperature, tone, texture, turgor No induration No subcutaneous nodules No rash, lesions No ulcers Extremities: No digital cyanosis No clubbing Patient has [id number] amputation bilaterally Radial pulses intact and symmetrical No calf tenderness Psychiatric: Alert and oriented to person, place and time Appropriate affect fair judgement Neuro Muscles Strength 5/5 in bilateral upper extremities patient has abo ve-the-knee amputation bilaterally Sensation to light touch grossly present throughout Cranial nerves II-XII grossly intact No focal sensory deficits Lymphatics: no palpable cervical or supraclavicular , or inguinal lymph nodes Results CBC & Chem 7: 07/03/19 16:45 07/03/19 16:45 Labs: Abnormal Lab Results - Last 24 Hours (Table) 07/03/19 07/03/19 07/03/19 Range/Units 16:45 16:45 16:45 WBC 11.8 H (3.8-10.6) k/uL RBC 5.69 H (3.80-5.40) m/uL Hgb 16.4 H (11.4-16.0) gm/dL Hct 48.8 H (34.0-46.0) % Neutrophils # 9.1 H (1.3-7.7) k/uL PT 45.6 H (9.0-12.0) sec INR 4.7 H (<1.2) APTT 43.8 H (22.0-30.0) sec Chloride 114 H (98-107) mmol/L Carbon Dioxide 17 L (22-30) mmol/L BUN 27 H (7-17) mg/dL Lipase 482 H (23-300) U/L Urine Appearance (Clear) Urine Protein (Negative) Urine Blood (Negative) Urine Nitrite (Negative) Ur Leukocyte Esterase (Negative) Urine WBC (0-5) /hpf Urine WBC Clumps (None) /hpf Urine Bacteria (None) /hpf Urine Mucus (None) /hpf 07/03/19 Range/Units 17:38 WBC (3.8-10.6) k/uL RBC (3.80-5.40) m/uL Hgb (11.4-16.0) gm/dL Hct (34.0-46.0) % Neutrophils # (1.3-7.7) k/uL PT (9.0-12.0) sec INR (<1.2) APTT (22.0-30.0) sec Chloride (98-107) mmol/L Carbon Dioxide (22-30) mmol/L BUN (7-17) mg/dL Lipase (23-300) U/L Urine Appearance Cloudy H (Clear) Urine Protein Trace H (Negative) Urine Blood Small H (Negative) Urine Nitrite Positive H (Negative) Ur Leukocyte Esterase Large H (Negative) Urine WBC 152 H (0-5) /hpf Urine WBC Clumps Few H (None) /hpf Urine Bacteria Many H (None) /hpf Urine Mucus Moderate H (None) /hpf Thrombosis Risk Factor Assmnt - Choose All That Apply Any of the Below Risk Factors Present?: Yes Each Factor Represents 1 point: Medical pt on bed rest, Obesity (BMI >25) Other Risk Factors: Yes Each Risk Factor Represents 2 Points: Age 61-74 years, Patient confined to bed Other congenital or acquired thrombophilia - If yes, enter type in comment: No Thrombosis Risk Factor Assessment Total Risk Factor Score: 6 Thrombosis Risk Factor Assessment Level: High Risk Assessment and Plan Assessment: 64-year-old female with history of A. fib on Coumadin hypertension recurrent UTI. Admitted as an inpatient with anticipated length of stay more than 2 midnights due to urinary tract infection recurrent. Patient also complaining of uncontrolled abdominal and back pain Plan: UTI upon admission, with history of recurrent UTI Follow-up cultures Rocephin daily Symptomatic control IV fluid hydration Pain control with opiates Chronic low back pain controlled at home with opiates Continue MS Contin and [place]'s from home Patient was counseled that this management with this level of strength of opiates is inappropriate for low back pain which should be revisited with her PCP looking at the root causes of this problem and try to gradually wean off these pain medications Paroxysmal A. fib on Coumadin Current INR supratherapeutic: INR is 2-3 Coumadin dosing by pharmacy Patient denies any bleeding at this time, however reports nosebleed that was easily controlled Hypertension currently controlled continue home meds Bilateral renal stones nonobstructive Recurrent UTI Consider outpatient follow-up with urology Bilateral above-knee amputation since childhood Preformed a thorough record review from recent hospitalization recurrent hospitalizations for urinary tract infections, most recent hospitalization her urine culture was negative CODE STATUS: Full code DVT prophylaxis: On Coumadin for A. fib Discussed with: Patient, ER, RN Anticipated length of stay more than [address]: Home A total of 60 minutes was spent on the care of this complex patient more than 50% of the time was spent in counseling and care coordination.
[2019-07-04] MEDS: HYDROmorphone 0.5 MG/0.5 ML SYRINGE IVP PRN ×7 (01:34→23:06)
[2019-07-04] MEDS: HYDROcodone/APAP 10-325MG 1 EACH TAB PO PRN ×4 (03:36→22:14)
[2019-07-04] MEDS: NICOTINE 14MG/24HR PATCH TRANSDERM SCH (08:08)
[2019-07-04] MEDS: VALSARTAN 160 MG TAB PO SCH (08:08)
[2019-07-04] MEDS: ALPRAZolam 0.5 MG TAB PO SCH ×2 (08:08→20:00)
[2019-07-04] MEDS: cloNIDine HCL 0.1 MG TAB PO SCH ×3 (08:08→21:00)
[2019-07-04] MEDS: DOCUSATE 100 MG CAP PO SCH ×2 (08:08→19:55)
[2019-07-04] MEDS: FLECAINIDE 50 MG TAB PO SCH ×2 (08:09→19:57)
[2019-07-04] MEDS: SODIUM CHLORIDE 0.9% 1,000 ML IV SCH ×2 (08:10→20:00)
[2019-07-04] MEDS: ONDANSETRON 4 MG/2 ML VIAL IVP PRN ×2 (08:11→16:02)
[2019-07-04 09:19] LABS: Prothrombin Time 50.3 sec (9.0-12.0)
[2019-07-04 09:25] LABS: INR 5.2 (<1.2)
[2019-07-04 09:37] LABS: African American GFR (CKD) >90 (>60 ml/min/1.73 sqM); Anion Gap 9 mmol/L; Basophils # (A) 0.1 k/uL (0-0.2); Basophils % (A) 1 %; Blood Urea Nitrogen 37 mg/dL (7-17); Carbon Dioxide 20 mmol/L (22-30); Chloride 112 mmol/L (98-107); Eosinophils # (A) 0.2 k/uL (0-0.7); Eosinophils % (A) 2 %; Glucose 121 mg/dL (74-99); HCT 41.4 % (34.0-46.0); HGB 13.5 gm/dL (11.4-16.0); Lymphocytes # (A) 3.3 k/uL (1.0-4.8); Lymphocytes % (A) 41 %; MCH 28.1 pg (25.0-35.0); MCHC 32.5 g/dL (31.0-37.0); MCV 86.5 fL (80.0-100.0); Mean Platelet Volume 7.7; Monocytes # (A) 0.5 k/uL (0-1.0); Monocytes % (A) 6 %; Neutrophils # (A) 3.7 k/uL (1.3-7.7); Neutrophils % (A) 46 %; Non-African American GFR(CKD) >90 (>60 ml/min/1.73 sqM); Platelet Count 323 k/uL (150-450); RBC 4.79 m/uL (3.80-5.40); RDW 14.8 % (11.5-15.5); Sodium 141 mmol/L (137-145)
--- NOTE | 2019-07-04 12:45 | P.PN ---
Subjective Progress Note Date: 07/04/19 Principal diagnosis: UTI Patient is a 64 yo CF with a hx of Chronic abdominal pain with multiple admission, chronic back pain on medications with Dr. Jiménez, HTN, HLD, and b/l BKA who presented with complaints of suprapubic abdominal. Prilosec the ER she was found to be mildly febrile with temperature of 100 and hypertensive with a blood pressure of 197/111. Laboratory analysis revealed an elevated white blood cell count 11.8, hemoglobin 16.4, INR 4.7, BUN of 27, and urinalysis with 152 white blood cells. She underwent a CT abdomen and pelvis which showed chronic colitis consider inflammatory bowel disease, bilateral nonobstructing renal calculi, and lobulated contour of the left kidney. She was started on IV fluids, Rocephin, and her warfarin was held. She is admitted for further monitoring. On the day after admission her white blood cell count had normalized. Patient seen and examined at bedside. She complains of uncontrolled pain and is asking for Dilaudid. She has not yet received her long-acting MS Contin from home and I asked her to take this prior to taking any more IV Dilaudid. She denies any nausea or vomiting but continues complaining of left-sided abdominal pain we discussed how she has chronic abdominal pain which continued to need be worked up as outpatient. We're currently awaiting her urine culture to come back to de-escalate antibiotic coverage and hope to discharge her in the morning once this was available. Objective - Vital Signs Vital signs: Vital Signs Temp 98.5 F 07/04/19 04:14 Pulse 61 07/04/19 04:14 Resp 20 07/04/19 04:14 BP 110/70 07/04/19 04:14 Pulse Ox 98 07/04/19 04:14 Intake & Output 07/03/19 07/04/19 07/04/19 18:59 06:59 18:59 Output Total 200 Balance -200 Weight 54.431 kg 54.431 kg Output: Urine 200 Other: Voiding Method Bedside Commode # Voids 2 # Bowel Movements 0 - Exam General: non toxic, mild distress, resting in bed, appears at stated age Derm: warm, dry Head: atraumatic, normocephalic, symmetric Eyes: EOMI, no lid lag, anicteric sclera Mouth: no lip lesion, mucus membranes moist Cardiovascular: S1S2 reg, no murmur, positive posterior tibial pulse bilateral, Lungs: Decreased breath sounds bilateral, no rhonchi, no rales , no accessory muscle use Abdominal: soft, 200 palpation right lower quadrant, no guarding, no appreciable organomegaly Ext: Bilateral AKA, no contractures Neuro: CN II-XI grossly intact, no focal neuro deficits Psych: Alert, oriented, appropriate affect - Labs CBC & Chem 7: 07/04/19 08:43 07/04/19 08:43 Labs: Abnormal Lab Results - Last 24 Hours (Table) 07/03/19 07/03/19 07/03/19 Range/Units 16:45 16:45 16:45 WBC 11.8 H (3.8-10.6) k/uL RBC 5.69 H (3.80-5.40) m/uL Hgb 16.4 H (11.4-16.0) gm/dL Hct 48.8 H (34.0-46.0) % Neutrophils # 9.1 H (1.3-7.7) k/uL PT 45.6 H (9.0-12.0) sec INR 4.7 H (<1.2) APTT 43.8 H (22.0-30.0) sec Chloride 114 H (98-107) mmol/L Carbon Dioxide 17 L (22-30) mmol/L BUN 27 H (7-17) mg/dL Glucose (74-99) mg/dL Lipase 482 H (23-300) U/L Urine Appearance (Clear) Urine Protein (Negative) Urine Blood (Negative) Urine Nitrite (Negative) Ur Leukocyte Esterase (Negative) Urine WBC (0-5) /hpf Urine WBC Clumps (None) /hpf Urine Bacteria (None) /hpf Urine Mucus (None) /hpf 07/03/19 07/04/19 07/04/19 Range/Units 17:38 08:43 08:43 WBC (3.8-10.6) k/uL RBC (3.80-5.40) m/uL Hgb (11.4-16.0) gm/dL Hct (34.0-46.0) % Neutrophils # (1.3-7.7) k/uL PT 50.3 H (9.0-12.0) sec INR 5.2 H* (<1.2) APTT (22.0-30.0) sec Chloride 112 H (98-107) mmol/L Carbon Dioxide 20 L (22-30) mmol/L BUN 37 H (7-17) mg/dL Glucose 121 H (74-99) mg/dL Lipase (23-300) U/L Urine Appearance Cloudy H (Clear) Urine Protein Trace H (Negative) Urine Blood Small H (Negative) Urine Nitrite Positive H (Negative) Ur Leukocyte Esterase Large H (Negative) Urine WBC 152 H (0-5) /hpf Urine WBC Clumps Few H (None) /hpf Urine Bacteria Many H (None) /hpf Urine Mucus Moderate H (None) /hpf Microbiology - Last 24 Hours (Table) 07/03/19 17:38 Urine Culture - Preliminary Urine,Voided Assessment and Plan Assessment: Urinary tract infection, present on admission -Continue with Rocephin -Await urine cultures -IV fluids Chronic low back pain and chronic abdominal pain control with opiates at home -Discussed with patient following up with gastroenterology on discharge for further evaluation of her chronic abdominal pain. She states that she has seen Dr. Carcamo in the past. -Continue with morphine sulfate twice daily as scheduled, [place] twice daily as needed, and Dilaudid for breakthrough pain. Anticipate that her Dilaudid needs should decrease the next 12-24 hours Paroxysmal atrial fibrillation with supratherapeutic Coumadin coagulopathy -Hold Coumadin tonight -Repeat INR in a.m. -Coumadin dosing by pharmacy -Continue with Blephamide Hypertension, accelerated on arrival -Ember Mott -Follow blood pressures Bilateral nonobstructing renal stones -Outpatient follow-up urology Tobacco abuse -Cessation -Nicotine replacement Chronic: Dyslipidemia GERD DVT prophylaxis:Coumadin Discussed with: patient, nursing Anticipated discharge: in AM Anticipated discharge place: home A total of 35 minutes was spent on the care of this complex patient more than 50% of the time was spent in counseling and care coordination.
--- NOTE | 2019-07-04 15:23 | US ---
EXAMINATION TYPE: US kidneys/renal and bladder DATE OF EXAM: 07/04/2019 COMPARISON: Ultrasound 10/31/2018, CT scan 07/03/2019 CLINICAL HISTORY: Nephrolithiasis, possible mass L kidney noted CT. EXAM MEASUREMENTS: Right Kidney: 7.2 x 2.7 x 3.3 cm Left Kidney: 11.6 x 6.0 x 6.3 cm Patient has large abdomen. Right Kidney: 1.5 x 1.5 x 1.5cm cyst, stone measuring 0.8 x 0.3 x 0.6cm Left Kidney: lobular surface vs mass seen superior pole Bladder: wnl, not fully distended IMPRESSION: 1. Nonobstructing right renal calculus measuring 8 mm. 2. Lobulated surface to the upper pole the left kidney. Without contrast mass is difficult to exclude recommend MRI
[2019-07-04] MEDS ORDERED: WARFARIN 0.5 MG TAB PO ONE (18:00)
[2019-07-04] MEDS: ATORVASTATIN 20 MG TAB PO SCH (19:55)
[2019-07-04] MEDS: FENOFIBRATE 160 MG TAB PO SCH (19:56)
[2019-07-04] MEDS: MORPHINE SULFATE ER 30 MG TABLET PO SCH (21:01)
[2019-07-04] MEDS ORDERED: MELATONIN 3 MG TABLET PO SCH (23:00)
[2019-07-05] MEDS: HYDROmorphone 0.5 MG/0.5 ML SYRINGE IVP PRN ×5 (02:26→15:12)
[2019-07-05] MEDS: ONDANSETRON 4 MG/2 ML VIAL IVP PRN (02:29)
[2019-07-05] MEDS: HYDROcodone/APAP 10-325MG 1 EACH TAB PO PRN ×2 (04:18→15:27)
[2019-07-05 06:11] VITALS: PULSE 54
[2019-07-05] MEDS ORDERED: OMEPRAZOLE PO SCH (07:30)
[2019-07-05] MEDS ORDERED: PANTOPRAZOLE 40 MG TABLET PO SCH (07:30)
[2019-07-05] MEDS: ALPRAZolam 0.5 MG TAB PO SCH (08:12)
[2019-07-05] MEDS: DOCUSATE 100 MG CAP PO SCH (08:12)
[2019-07-05] MEDS: FLECAINIDE 50 MG TAB PO SCH (08:12)
[2019-07-05] MEDS: VALSARTAN 160 MG TAB PO SCH (08:13)
[2019-07-05] MEDS: cloNIDine HCL 0.1 MG TAB PO SCH ×2 (08:13→15:11)
[2019-07-05] MEDS: MORPHINE SULFATE ER 30 MG TABLET PO SCH (08:13)
[2019-07-05] MEDS: NICOTINE 14MG/24HR PATCH TRANSDERM SCH (08:15)
[2019-07-05] MEDS: SODIUM CHLORIDE 0.9% 1,000 ML IV SCH ×2 (08:21→15:15)
[2019-07-05 11:37] LABS: HCT 38.6 % (34.0-46.0); HGB 12.7 gm/dL (11.4-16.0); MCH 28.4 pg (25.0-35.0); Platelet Count 314 k/uL (150-450); RBC 4.49 m/uL (3.80-5.40); RDW 14.7 % (11.5-15.5); WBC 8.2 k/uL (3.8-10.6)
[2019-07-05 11:45] LABS: INR 1.9 (<1.2)
[2019-07-05 12:10] LABS: African American GFR (CKD) >90 (>60 ml/min/1.73 sqM); Anion Gap 6 mmol/L; Blood Urea Nitrogen 28 mg/dL (7-17); Calcium 8.5 mg/dL (8.4-10.2); Carbon Dioxide 21 mmol/L (22-30); Chloride 112 mmol/L (98-107); Glucose 100 mg/dL (74-99); Non-African American GFR(CKD) >90 (>60 ml/min/1.73 sqM); Potassium 4.3 mmol/L (3.5-5.1); Sodium 139 mmol/L (137-145)
[2019-07-05 13:44] VITALS: BP 146/81; RESP 16; TEMP 98.2
--- NOTE | 2019-07-05 15:16 | P.DS ---
Providers Date of admission: 07/05/19 14:32 Expected date of discharge: 07/05/19 Attending physician: Richa Guidry DO Primary care physician: Stated None Hospital Course: Discharge Diagnosis: Urinary tract infection present on admission, chronic low back pain and chronic abdominal pain control with opiates at home Paroxysmal atrial fibrillation with supratherapeutic Coumadin coagulopathy, resolved Hypertension Bilateral nonobstructing renal stones Tobacco abuse Dyslipidemia GERD Morbid obesity with BMI 45.6 Hospital Course: Patient is a 64 yo CF with a hx of Chronic abdominal pain with multiple admission, chronic back pain on medications with Dr. Jiménez, HTN, HLD, and b/l BKA who presented with complaints of suprapubic abdominal. Prilosec the ER she was found to be mildly febrile with temperature of 100 and hypertensive with a blood pressure of 197/111. Laboratory analysis revealed an elevated white blood cell count 11.8, hemoglobin 16.4, INR 4.7, BUN of 27, and urinalysis with 152 white blood cells. She underwent a CT abdomen and pelvis which showed chronic colitis consider inflammatory bowel disease, bilateral nonobstructing renal calculi, and lobulated contour of the left kidney. She was started on IV fluids, Rocephin, and her warfarin was held. She is admitted for further monitoring. On the day after admission her white blood cell count had no rmalized. Perlim Micro showed gram negative bacilli. Her last 3 cultures were all klebsiella and antibiotic therapy was directed at prior results. She had a lobulated left kidney on Renal ultrasound and MRI was recommended which can be completed as outpatient. She has seen Dr. Moreira in the past and will follow with him for this. She will follow with Dr. Brock for her chronic abdominal pain. She will have repeat INR in 2 days. She was determined stable for discharge home. Spoke with Dr. Nguyen and he is hoping to be able to accept her back as a patient. Patient seen and examined at bedside. Still with her chronic left sided pain,, when I enter the room she is sitting comfortably watching TV, explained WBC improved and if INR improved then discharge home today. (INR was improved report to patient through nursing) Vital signs reviewed and stable. General: non toxic, no distress, appears at stated age Derm: warm, dry Head: atraumatic, normocephalic, symmetric Eyes: EOMI, no lid lag, anicteric sclera Mouth: no lip lesion, mucus membranes moist Cardiovascular: S1S2 reg, no murmur, b/l AKA Lungs: CTA bilateral, no rhonchi, no rales , no accessory muscle use Abdominal: soft, + tender to palpation LLQ , no guarding, no appreciable organomegaly Psych: Alert, oriented, appropriate affect A total of 35 minutes of time were spent preparing this complex discharge s kevon . Patient Condition at Discharge: Stable Plan - Discharge Summary New Discharge Prescriptions: New Amoxic-Pot Clav 875-125Mg [Augmentin 875-125] 1 tab PO BID 5 Days #10 tab Continue Fenofibrate 160 mg PO HS Atorvastatin Calcium [Lipitor] 40 mg PO HS cloNIDine HCL [Catapres] 0.05 mg PO TID Warfarin [Coumadin] 2 mg PO HS ALPRAZolam [Xanax] 0.5 mg PO BID Nitroglycerin Sl Tabs [Nitrostat] 0.4 mg SUBLINGUAL Q5M PRN PRN Reason: Chest Pain Valsartan [Diovan] 320 mg PO DAILY 30 Days #60 tab Morphine Sulfate ER [Ms Contin] 30 mg PO Q12HR PRN #12 tab PRN Reason: Pain HYDROcodone/APAP 10-325MG [[place] 10-325] 1 tab PO Q6H PRN #12 tab PRN Reason: Pain Ondansetron HCl [Zofran] 8 mg PO TID PRN #12 tab PRN Reason: Nausea Docusate [Colace] 100 mg PO BID Flecainide Acetate 100 mg PO Q12H Omeprazole 1 cap PO AC-BRKFST Discharge Medication List Fenofibrate 160 mg PO HS 11/15/15 [History] Atorvastatin Calcium [Lipitor] 40 mg PO HS 06/21/18 [History] cloNIDine HCL [Catapres] 0.05 mg PO TID 06/21/18 [History] ALPRAZolam [Xanax] 0.5 mg PO BID 01/20/19 [History] Warfarin [Coumadin] 2 mg PO HS 01/20/19 [History] Nitroglycerin Sl Tabs [Nitrostat] 0.4 mg SUBLINGUAL Q5M PRN 03/16/19 [History] HYDROcodone/APAP 10-325MG [[place] 10-325] 1 tab PO Q6H PRN #12 tab 05/31/19 [Rx] Morphine Sulfate ER [Ms Contin] 30 mg PO Q12HR PRN #12 tab 05/31/19 [Rx] Ondansetron HCl [Zofran] 8 mg PO TID PRN #12 tab 05/31/19 [Rx] Valsartan [Diovan] 320 mg PO DAILY 30 Days #60 tab 05/31/19 [Rx] Docusate [Colace] 100 mg PO BID 07/03/19 [History] Flecainide Acetate 100 mg PO Q12H 07/03/19 [History] Amoxic-Pot Clav 875-125Mg [Augmentin 875-125] 1 tab PO BID 5 Days #10 tab 07/05/19 [Rx] Omeprazole 1 cap PO AC-BRKFST 07/05/19 [History] Follow up Appointment(s)/Referral(s): Maricarmen Brock MD [STAFF PHYSICIAN] - 2 Weeks Elvi Nagy MD [Medical Doctor] - 1 Week None,Stated [Primary Care Provider] - 1-2 days Rudolph Moreira MD [STAFF PHYSICIAN] - 2 Weeks Ambulatory/Diagnostic Orders: Prothrombin Time INR [LAB.AMB] Time Frame: 2 Days, Location: None Selected Activity/Diet/Wound Care/Special Instructions: Activity: as tolerated Diet: Regular
[2019-07-05] MEDS ORDERED: WARFARIN 2 MG TAB PO ONE (18:00)
== END 2019-07-05 16:18 | disposition home or self-care (01) | DRG 690 ==
LOC: EC 16:08 → 4MS4W 18:26 → OBSVTOIN 07-05 14:32
PROVIDERS: ADMIT Internal Medicine; ATTEND Internal Medicine
DX: N39.0 Urinary tract infection, site not specified (principal); Z68.42 Body mass index [BMI] 45.0-49.9, adult; E11.9 Type 2 diabetes mellitus without complications; R79.1 Abnormal coagulation profile; N20.0 Calculus of kidney; K52.9 Noninfective gastroenteritis and colitis, unspecified; E66.01 Morbid (severe) obesity due to excess calories; E78.5 Hyperlipidemia, unspecified; F17.210 Nicotine dependence, cigarettes, uncomplicated; G89.29 Other chronic pain; I10 Essential (primary) hypertension; I48.0 Paroxysmal atrial fibrillation; K21.9 Gastro-esophageal reflux disease without esophagitis; T45.515A Adverse effect of anticoagulants, initial encounter; Z79.4 Long term (current) use of insulin; Z79.01 Long term (current) use of anticoagulants; Z79.899 Other long term (current) drug therapy; Z80.1 Family history of malignant neoplasm of trachea, bronchus and lung; Z82.49 Family history of ischemic heart disease and other diseases of the circulatory system; Z87.442 Personal history of urinary calculi; Z87.440 Personal history of urinary (tract) infections; Z89.611 Acquired absence of right leg above knee; Z89.512 Acquired absence of left leg below knee; Z89.612 Acquired absence of left leg above knee; Z90.710 Acquired absence of both cervix and uterus
CPT/HCPCS: 36415; 74176; 76770; 80048; 80053; 81001; 82150; 83605; 83690; 85025; 85027; 85610; 85730; 87040; 87077; 87086; 87186; 96372; 96374; 99285

== ENCOUNTER → 2019-07-07 | Outpatient (CLI) | payer OTHER ==
[2019-07-07 16:15] LABS: INR 2.2 (<1.2); Prothrombin Time 21.2 sec (9.0-12.0)
== END | disposition home or self-care (01) ==
LOC: LABWHC1 15:42
PROVIDERS: ATTEND Internal Medicine
DX: Z51.81 Encounter for therapeutic drug level monitoring (principal); Z79.01 Long term (current) use of anticoagulants
CPT/HCPCS: 36415; 85610

== ENCOUNTER 2019-07-21 00:40 | Observation (INO) | payer OTHER ==
[2019-07-21] MEDS ORDERED: ONDANSETRON 4 MG/2 ML VIAL IVP STA (01:11)
[2019-07-21] MEDS ORDERED: MORPHINE SULFATE 4 MG/ML SYRINGE IV STA (01:11)
[2019-07-21] MEDS ORDERED: SODIUM CHLORIDE 0.9% 500 ML 500 ML IV STA (01:11)
[2019-07-21] MEDS ORDERED: NITROGLYCERIN OINT 1 INCH/GM PACKET TOPICAL STA (01:11)
--- NOTE | 2019-07-21 02:22 | ED ---
Chest Pain HPI - General Chief Complaint: Chest Pain Stated Complaint: chest pain Time Seen by Provider: 07/21/19 01:00 Source: patient, EMS Mode of arrival: EMS Limitations: physical limitation - History of Present Illness Initial Comments: 64-year-old female patient presents to the emergency department today for evaluation of chest pain and jaw pain. Patient states symptoms started approximately one hour prior to arrival. She states that she is having associated shortness of breath and nausea. She denies any sweats. Patient denies history of heart attack however has atrial fibrillation. She is currently taking warfarin for anticoagulation. Patient is a bilateral lower extremity [id number] amputation, she denies history of DVT.she does have history of hypertension and high cholesterol. She is a family history of coronary artery disease. Patient denies any recent rash, abdominal pain, nausea, diarrhea, constipation, back pain, numbness, tingling, dizziness, weakness, hematuria, dysuria, urinary urgency, urinary frequency, headache, visual changes, or any other complaints. - Related Data Home Medications Medication Instructions Recorded Confirmed Fenofibrate 160 mg PO HS 11/15/15 07/03/19 Atorvastatin Calcium [Lipitor] 40 mg PO HS 06/21/18 07/03/19 cloNIDine HCL [Catapres] 0.05 mg PO TID 06/21/18 07/03/19 ALPRAZolam [Xanax] 0.5 mg PO BID 01/20/19 07/03/19 Warfarin [Coumadin] 2 mg PO HS 01/20/19 07/03/19 Nitroglycerin Sl Tabs [Nitrostat] 0.4 mg SUBLINGUAL Q5M PRN 03/16/19 07/03/19 Docusate [Colace] 100 mg PO BID 07/03/19 07/03/19 Flecainide Acetate 100 mg PO Q12H 07/03/19 07/03/19 Omeprazole 1 cap PO AC-BRKFST 07/05/19 07/05/19 Previous Rx's Medication Instructions Recorded HYDROcodone/APAP 10-325MG [[place] 1 tab PO Q6H PRN #12 tab 05/31/19 10-325] Morphine Sulfate ER [Ms Contin] 30 mg PO Q12HR PRN #12 tab 05/31/19 Ondansetron HCl [Zofran] 8 mg PO TID PRN #12 tab 05/31/19 Valsartan [Diovan] 320 mg PO DAILY 30 Days #60 tab 05/31/19 Amoxic-Pot Clav 875-125Mg 1 tab PO BID 5 Days #10 tab 07/05/19 [Augmentin 875-125] Allergies Allergy/AdvReac Type Severity Reaction Status Date / Time sulfamethoxazole Allergy Itching Verified 07/21/19 00:53 [From Septra] trimethoprim [From Septra] Allergy Itching Verified 07/21/19 00:53 levofloxacin [From [facility]] AdvReac Muscle Pain Verified 07/21/19 00:53 Review of Systems ROS Statement: Those systems with pertinent positive or pertinent negative responses have been documented in the HPI. ROS Other: All systems not noted in ROS Statement are negative. EKG Findings - EKG Comments: EKG Findings:: EKG obtained at 00 50 shows normal sinus rhythm with a ventricular rate is 69, NC interval 162, QRS duration 80, QT 406, QTc 435. No evidence of ST elevation or depression. 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 occasional vertigo, and R arm fracture with surgery. no longer diabetic for over 2 years now double amputation lower extrmities, aka. 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 Past Anesthesia/Blood Transfusion Reactions: No Reported Reaction Additional Past Anesthesia/Blood Transfusion Reaction / Comment(s): Pt received blood in 1978-no reaction reported. Past Psychological History: No Psychological Hx Reported Smoking Status: Current every day smoker Past Alcohol Use History: None Reported Past Drug Use History: None Reported - Past Family History Father Family Medical History: Cancer, Myocardial Infarction ([place]) Additional Family Medical History / Comment(s): Father had lung cancer-went into remission. He of a massive [place] in his 60's Mother Family Medical History: Cancer Additional Family Medical History / Comment(s): Mother of lung cancer at age 54 yrs. General Exam Limitations: physical limitation General appearance: alert, in no apparent distress, other (physical well- developed, well-nourished adult female patient in no acute distress.) Eye exam: Present: normal appearance, PERRL, EOMI. Absent: scleral icterus, conjunctival injection, periorbital swelling ENT exam: Present: normal exam, normal oropharynx, mucous membranes moist Respiratory exam: Present: normal lung sounds bilaterally. Absent: respiratory distress, wheezes, rales, rhonchi, stridor Cardiovascular Exam: Present: regular rate, normal rhythm, normal heart sounds. Absent: systolic murmur, diastolic murmur, rubs, gallop, clicks GI/Abdominal exam: Present: soft, normal bowel sounds. Absent: distended, tenderness, guarding, rebound, rigid Extremities exam: Present: other (bilateral [id number] amputation) Neurological exam: Present: alert, oriented X3, CN II-XII intact Psychiatric exam: Present: normal affect, normal mood Skin exam: Present: warm, dry, intact, normal color. Absent: rash Course Vital Signs 07/21/19 00:49 Temperature 97.2 F L Pulse Rate 69 Respiratory 18 Rate Blood Pressure 145/83 O2 Sat by Pulse 98 Oximetry Chest Pain MDM - MDM 64-year-old female patient presents to the emergency department today for evaluation of chest pain, neck pain, and shortness of breath. Physical examination is unremarkable. She is also reporting symptoms of dysuria and uri nary frequency. Labs reviewed and reveal initial negative troponin. Chest x-ray showed borderline cardiomegaly probably consistent with heart failure which is improved compared to last exam. Urinalysis is positive for urinary tract infection with positive nitrites and 152 white blood cells. This has been sent for culture. Patient does have history of positive ESBL Klebsiella urine culture. We'll initiate susceptible antibiotics. We will perform serial troponins. Cardiology will be consulted. I did discuss findings and results with the patient, she is agreeable to this plan. Disposition Clinical Impression: Chest pain, UTI (urinary tract infection) Disposition: ADMITTED IP TO THIS HOSP Condition: Serious Referrals: Dick Nguyen MD [Primary Care Provider] - 1-2 days Decision to Admit Reason: Admit from EC Decision Date: 07/21/19 Decision Time: 04:22
--- NOTE | 2019-07-21 02:44 | XR ---
EXAMINATION TYPE: XR chest 2V DATE OF EXAM: 07/21/2019 COMPARISON: 03/16/2019 HISTORY: Chest pain TECHNIQUE: 2 views FINDINGS: Heart is enlarged. There is mild blunting of the costophrenic angles. There is mild pulmona ry congestion. There are chest leads. IMPRESSION: Changes consistent with borderline heart failure that is probably improved slightly humberto red to last exam. Stable cardiomegaly.
[2019-07-21 02:56] LABS: Basophils # (A) 0.1 k/uL (0-0.2); Basophils % (A) 1 %; Eosinophils # (A) 0.2 k/uL (0-0.7); Eosinophils % (A) 2 %; HCT 40.6 % (34.0-46.0); HGB 12.8 gm/dL (11.4-16.0); Lymphocytes # (A) 2.7 k/uL (1.0-4.8); Lymphocytes % (A) 24 %; MCH 27.5 pg (25.0-35.0); MCHC 31.6 g/dL (31.0-37.0); MCV 87.2 fL (80.0-100.0); Mean Platelet Volume 8.1; Monocytes # (A) 0.5 k/uL (0-1.0); Monocytes % (A) 5 %; Neutrophils # (A) 7.4 k/uL (1.3-7.7); Neutrophils % (A) 67 %; Platelet Count 372 k/uL (150-450); RBC 4.66 m/uL (3.80-5.40); RDW 14.8 % (11.5-15.5)
[2019-07-21 03:04] LABS: INR 4.2 (<1.2); Partial Thromboplastin Time 56.5 sec (22.0-30.0); Prothrombin Time 40.4 sec (9.0-12.0)
[2019-07-21 03:05] LABS: ALT 10 U/L (4-34); AST 20 U/L (14-36); African American GFR (CKD) >90 (>60 ml/min/1.73 sqM); Albumin 3.5 g/dL (3.5-5.0); Alkaline Phosphatase 45 U/L (38-126); Anion Gap 8 mmol/L; Blood Urea Nitrogen 20 mg/dL (7-17); Calcium 8.9 mg/dL (8.4-10.2); Carbon Dioxide 21 mmol/L (22-30); Chloride 112 mmol/L (98-107); Glucose 136 mg/dL (74-99); Magnesium 1.2 mg/dL (1.6-2.3); Non-African American GFR(CKD) >90 (>60 ml/min/1.73 sqM); Potassium 3.9 mmol/L (3.5-5.1); Sodium 141 mmol/L (137-145); Total Bilirubin 0.3 mg/dL (0.2-1.3); Total Protein 6.6 g/dL (6.3-8.2)
[2019-07-21 03:23] LABS: Appearance,Urine Cloudy (Clear); Bilirubin,Urine Negative (Negative); Blood,Urine Trace (Negative); Color,Urine Yellow; Glucose,Urine (UA) Negative (Negative); Hyaline Casts,Urine 1 /lpf (0-2); Ketones,Urine Negative (Negative); Leukocyte Esterase,Urine Large (Negative); Mucus,Urine Rare /hpf; Nitrite,Urine Positive (Negative); PH, Urine 5.5 (5.0-8.0); Protein,Urine Negative (Negative); RBC,Urine 6 /hpf (0-5); Specific Gravity,Urine 1.018 (1.001-1.035); Squamous Epithelial Cell,Urine <1 /hpf (0-4); Urobilinogen,Urine <2.0 mg/dL (<2.0); WBC,Urine 120 /hpf (0-5)
[2019-07-21] MEDS ORDERED: MORPHINE SULFATE 4 MG/ML SYRINGE IVP STA (04:15)
[2019-07-21] MEDS ORDERED: NALOXONE 0.4 MG/ML 1 ML VIAL IV PRN (04:17)
[2019-07-21] MEDS ORDERED: Magnesium Replacement Protocol 1 EACH MISC MISCELLANE PRN (05:35)
--- NOTE | 2019-07-21 06:41 | P.HPIM ---
History of Present Illness H&P Date: 07/21/19 Chief Complaint: chest pain 64-year-old female with history of hypertension, paroxysmal A. fib, recurrent UTI, bilateral AKA since childhood Patient comes in today due to sudden onset chest pain she reports that it woke her up from sleep reports the pain was 10 out of 10 in severity in the upper chest area radiating to the neck and bilateral ears associated with shortness of breath and palpitations and sweating denies any nausea or vomiting however she feels nauseous now. She took some nitro without much improvement. Pain was worse with laying down. Patient uses her upper body to transport herself to a wheelchair and she was able to do that went to the bathroom and back however pain got worse for which she decided to call EMS and come to the hospital get evaluated. She denies any similar episodes in the past however she does report having a stress test done 2 months ago she is not sure of results. Patient was hospitalized recently for abdominal pain found to have acute urinary tract infection was treated with antibiotics and discharged about 2 weeks ago. In the ED her EKG showed normal sinus rhythm. INR was elevated at 4 patient denies any GI bleeding she takes Coumadin for A. fib. She was found to have low magnesium. Her urine was positive. Her most recent culture showed ESBL. patient does report suprapubic abdominal pain and left lower quadrant abdominal pain 10 out of 10 in severity comes and goes sharp in nature worse with movement similar to her most recent urinary tract infection attack reports foul-smelling urine but no hematuria. She reports that she was discharged on 1 tab of antibiotic and then was called to switch the antibiotics due to results of cultures and she finished 1 week course of antibiotics. Review of Systems Pertinent positives as noted in HPI. All other systems were reviewed and are negative Past Medical History Past Medical History: Atrial Fibrillation, GERD/Reflux, Hyperlipidemia, Hypertension Additional Past Medical History / Comment(s): hx urinary retention,right Nephrolithiasis,recurrent UTI,double amputation lower extrmities, aka. 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 Past Anesthesia/Blood Transfusion Reactions: No Reported Reaction Additional Past Anesthesia/Blood Transfusion Reaction / Comment(s): Pt received blood in 1978-no reaction reported. Past Psychological History: No Psychological Hx Reported Additional Psychological History / Comment(s): She is independent. She in a bilateral AKA and gets around in a power wheelchair. She has a hospital bed. She no longer drives but takes the bus. Smoking Status: Current every day smoker Past Alcohol Use History: None Reported Additional Past Alcohol Use History / Comment(s): Pt states she started smoking at age 18 yrs and the amount she smokes varies.Smoke a pack in two days Past Drug Use History: None Reported - Past Family History Father Family Medical History: Cancer, Myocardial Infarction ([place]) Additional Family Medical History / Comment(s): Father had lung cancer-went into remission. He of a massive [place] in his 60's Mother Family Medical History: Cancer Additional Family Medical History / Comment(s): Mother of lung cancer at age 54 yrs. Medications and Allergies Home Medications Medication Instructions Recorded Confirmed Type Fenofibrate 160 mg PO HS 11/15/15 07/03/19 History Atorvastatin Calcium [Lipitor] 40 mg PO HS 06/21/18 07/03/19 History cloNIDine HCL [Catapres] 0.05 mg PO TID 06/21/18 07/03/19 History ALPRAZolam [Xanax] 0.5 mg PO BID 01/20/19 07/03/19 History Warfarin [Coumadin] 2 mg PO HS 01/20/19 07/03/19 History Nitroglycerin Sl Tabs [Nitrostat] 0.4 mg SUBLINGUAL Q5M PRN 03/16/19 07/03/19 History HYDROcodone/APAP 10-325MG [[place] 1 tab PO Q6H PRN #12 tab 05/31/19 07/03/19 Rx 10-325] Morphine Sulfate ER [Ms Contin] 30 mg PO Q12HR PRN #12 tab 05/31/19 07/03/19 Rx Ondansetron HCl [Zofran] 8 mg PO TID PRN #12 tab 05/31/19 07/03/19 Rx Valsartan [Diovan] 320 mg PO DAILY 30 Days #60 tab 05/31/19 07/03/19 Rx Docusate [Colace] 100 mg PO BID 07/03/19 07/03/19 History Flecainide Acetate 100 mg PO Q12H 07/03/19 07/03/19 History Amoxic-Pot Clav 875-125Mg 1 tab PO BID 5 Days #10 tab 07/05/19 Rx [Augmentin 875-125] Omeprazole 1 cap PO AC-BRKFST 07/05/19 07/05/19 History Allergies Allergy/AdvReac Type Severity Reaction Status Date / Time sulfamethoxazole Allergy Itching Verified 07/21/19 00:53 [From Septra] trimethoprim [From Septra] Allergy Itching Verified 07/21/19 00:53 levofloxacin [From [facility]] AdvReac Muscle Pain Verified 07/21/19 00:53 Physical Exam Vitals: Vital Signs Temp Pulse Pulse Resp BP BP Pulse Ox 07/21/19 05:24 66 16 115/70 99 07/21/19 05:20 66 16 07/21/19 05:07 98.1 F 67 17 170/76 99 07/21/19 04:43 68 20 157/74 100 07/21/19 00:49 97.2 F L 69 18 145/83 98 Intake and Output 07/20/19 07/20/19 07/21/19 14:59 22:59 06:59 Other: Weight 79.923 kg Constitutional: No acute distress, conversant, pleasant Eyes: Anicteric sclerae, moist conjunctiva, Pupils equal round reactive to light ENMT: NC/AT Oropharynx clear, no erythema, exudates Neck: Supple, FROM, no masses, or JVD No carotid bruits No thyromegaly Lungs: Clear to auscultation Clear to percussion Normal respiratory effort, no accessory muscle use Cardiovascular: reproducible pain upon palpation of the chest Heart regular in rate and rhythm, No murmurs, gallops, or rubs No peripheral edema Abdominal: Soft, tenderness to palpation over the suprapubic and left lower quadrant with tenderness to palpation of the left costovertebral angle no guarding, rebound or rigidity Abdomen moving with respiration Normoactive bowel sounds No hepatomegaly, No splenomegaly No palpable mass No abdominal wall hernia noted Skin: Normal temperature, tone, texture, turgor No induration No subcutaneous nodules No rash, lesions No ulcers Extremities: Bilateral AKA since childhood No digital cyanosis No clubbing Radial pulses intact and symmetrical Psychiatric: Alert and oriented to person, place and time Appropriate affect fair judgment Neuro Muscles Strength 5/5 in Bilateral upper extremities Sensation to light touch grossly present throughout Cranial nerves II-XII grossly intact No focal sensory deficits Lymphatics: no palpable cervical or supraclavicular , or inguinal lymph nodes Results CBC & Chem 7: 07/21/19 02:42 07/21/19 02:42 Labs: Abnormal Lab Results - Last 24 Hours (Table) 07/21/19 07/21/19 07/21/19 Range/Units 02:42 02:42 02:42 WBC 11.0 H (3.8-10.6) k/uL PT 40.4 H (9.0-12.0) sec INR 4.2 H (<1.2) APTT 56.5 H (22.0-30.0) sec Chloride 112 H (98-107) mmol/L Carbon Dioxide 21 L (22-30) mmol/L BUN 20 H (7-17) mg/dL Glucose 136 H (74-99) mg/dL Magnesium 1.2 L (1.6-2.3) mg/dL Urine Appearance (Clear) Urine Blood (Negative) Urine Nitrite (Negative) Ur Leukocyte Esterase (Negative) Urine RBC (0-5) /hpf Urine WBC (0-5) /hpf Urine Mucus (None) /hpf 07/21/19 Range/Units 03:01 WBC (3.8-10.6) k/uL PT (9.0-12.0) sec INR (<1.2) APTT (22.0-30.0) sec Chloride (98-107) mmol/L Carbon Dioxide (22-30) mmol/L BUN (7-17) mg/dL Glucose (74-99) mg/dL Magnesium (1.6-2.3) mg/dL Urine Appearance Cloudy H (Clear) Urine Blood Trace H (Negative) Urine Nitrite Positive H (Negative) Ur Leukocyte Esterase Large H (Negative) Urine RBC 6 H (0-5) /hpf Urine WBC 120 H (0-5) /hpf Urine Mucus Rare H (None) /hpf Assessment and Plan Assessment: 64-year-old femalewith history of GERD, hypertension, hyperlipidemia,A. fib on Coumadin, recurrent urinary tract infection, bilateral AKA since childhood Patient comes in today due to chest pain atypical in nature to rule out acute coronary syndrome was admitted under observation with anticipated length of stay of less than 2 midnights Plan: atypical chest pain rule out acute coronary syndrome Trend cardiac enzymes monitoring tech Pain control Nitro, aspirin Cardiology consult Morphine when necessary Supratherapeutic INR paroxysmal A. fib on Coumadin hold Coumadin Denies GI bleeding Monitor hemoglobin closely Urinary tract infection recurrent Continue with cefoxitin based on most recent urine culture Repeat urine culture Consider ID consultation Hypomagnesemia Replace and follow up levels Chronic conditions Bilateral AKA Tobacco smoking GERD Hypertension Recurrent UTI Continue home meds Preformed a thorough record review from recent hospitalization where she was discharged 2 weeks ago admitted for acute urinary tract infection found to have ESBL CODE STATUS:full code DVT prophylaxis: on Coumadin for A. fib, currently with supratherapeutic INR Discussed with: Patient, ER,RN Anticipated length of stay less than [address]: home A total of 60 minutes was spent on the care of this complex patient more than 50% of the time was spent in counseling and care coordination.
--- NOTE | 2019-07-21 07:26 | P.CRDCN ---
History of Present Illness Consult date: 07/21/19 Chief complaint: chest pain History of present illness: this is a very pleasant 65-year-old female patient who sees Dr. Prescott in the office as an outpatient with a past medical history significant for paroxysmal atrial fibrillation on oral anticoagulation with Coumadin, hypertension, dyslipidemia, smoking, and known bilateral [id number] amputation, presented to the hospital complaining of chest discomfort. The patient was admitted to the hospital a few weeks ago with lower abdominal discomfort and flank discomfort and at that point she was diagnosed with UTI. Before that she was seen by Dr. Prescott in the office as an outpatient and scheduled to undergo a heart catheterization by Dr. Dr. Jama. Obviously the heart cathet erization was canceled because of the infection. The patient was treated medically and she was discharged in stable medical condition. This time she stated that she was in her usual state of health until last night when she was sleeping and woke up complaining of discomfort in the chest. The discomfort was in the mid of the chest, as sharp, with some radiation to the neck as well as to the jaw. She stated that she felt nauseated with the pain and she did have some sweating as well. No dizziness or lightheadedness, heart racing or fluttering, or syncope. The EKG showed sinus rhythm without any ischemic ST or T-wave abnormalities. The cardiac enzymes were checked. We only have one set of troponin came in to be unremarkable and she is in process of getting the second set of troponin. The chest x-ray showed cardiomegaly. Beside that the patient UA came in to be positive for UTI.otherwise the patient's vital signs are within normal limits and the rest of her workup is within normal limits except for the INR which came in to before. She is not experiencing any bleeding.the patient underwent an echocardiogram in March 2019 and that revealed normal LV function was mild mitral and mild tricuspid regurgitation. Past Medical History Past Medical History: Atrial Fibrillation, GERD/Reflux, Hyperlipidemia, Hypertension Additional Past Medical History / Comment(s): hx urinary retention,right Nephrolithiasis,recurrent UTI,double amputation lower extrmities, aka. 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 Past Anesthesia/Blood Transfusion Reactions: No Reported Reaction Additional Past Anesthesia/Blood Transfusion Reaction / Comment(s): Pt received blood in 1978-no reaction reported. Past Psychological History: No Psychological Hx Reported Additional Psychological History / Comment(s): She is independent. She in a bilateral AKA and gets around in a power wheelchair. She has a hospital bed. She no longer drives but takes the bus. Smoking Status: Current every day smoker Past Alcohol Use History: None Reported Additional Past Alcohol Use History / Comment(s): Pt states she started smoking at age 18 yrs and the amount she smokes varies.Smoke a pack in two days Past Drug Use History: None Reported - Past Family History Father Family Medical History: Cancer, Myocardial Infarction ([place]) Additional Family Medical History / Comment(s): Father had lung cancer-went into remission. He of a massive [place] in his 60's Mother Family Medical History: Cancer Additional Family Medical History / Comment(s): Mother of lung cancer at age 54 yrs. Medications and Allergies Home Medications Medication Instructions Recorded Confirmed Type Fenofibrate 160 mg PO HS 11/15/15 07/03/19 History Atorvastatin Calcium [Lipitor] 40 mg PO HS 06/21/18 07/03/19 History cloNIDine HCL [Catapres] 0.05 mg PO TID 06/21/18 07/03/19 History ALPRAZolam [Xanax] 0.5 mg PO BID 01/20/19 07/03/19 History Warfarin [Coumadin] 2 mg PO HS 01/20/19 07/03/19 History Nitroglycerin Sl Tabs [Nitrostat] 0.4 mg SUBLINGUAL Q5M PRN 03/16/19 07/03/19 History HYDROcodone/APAP 10-325MG [Jeannette 1 tab PO Q6H PRN #12 tab 05/31/19 07/03/19 Rx 10-325] Morphine Sulfate ER [Ms Contin] 30 mg PO Q12HR PRN #12 tab 05/31/19 07/03/19 Rx Ondansetron HCl [Zofran] 8 mg PO TID PRN #12 tab 05/31/19 07/03/19 Rx Valsartan [Diovan] 320 mg PO DAILY 30 Days #60 tab 05/31/19 07/03/19 Rx Docusate [Colace] 100 mg PO BID 07/03/19 07/03/19 History Flecainide Acetate 100 mg PO Q12H 07/03/19 07/03/19 History Amoxic-Pot Clav 875-125Mg 1 tab PO BID 5 Days #10 tab 07/05/19 Rx [Augmentin 875-125] Omeprazole 1 cap PO AC-BRKFST 07/05/19 07/05/19 History Allergies Allergy/AdvReac Type Severity Reaction Status Date / Time sulfamethoxazole Allergy Itching Verified 07/21/19 00:53 [From Septra] trimethoprim [From Septra] Allergy Itching Verified 07/21/19 00:53 levofloxacin [From [facility]] AdvReac Muscle Pain Verified 07/21/19 00:53 Physical Exam Vitals: Vital Signs Temp Pulse Pulse Resp BP BP Pulse Ox 07/21/19 05:24 66 16 115/70 99 07/21/19 05:20 66 16 07/21/19 05:07 98.1 F 67 17 170/76 99 07/21/19 04:43 68 20 157/74 100 07/21/19 00:49 97.2 F L 69 18 145/83 98 Intake and Output 07/20/19 07/21/19 07/21/19 22:59 06:59 14:59 Other: Weight 79.923 kg - Constitutional General appearance: no acute distress - Respiratory Respiratory: bilateral: CTA - Cardiovascular Rhythm: regular Heart sounds: normal: S1, S2 Results 07/21/19 02:42 07/21/19 02:42 Cardiac Enzymes 07/21/19 07/21/19 Range/Units 02:42 02:42 AST 20 (14-36) U/L Troponin I <0.012 (0.000-0.034) ng/mL Coagulation 07/21/19 Range/Units 02:42 PT 40.4 H (9.0-12.0) sec APTT 56.5 H (22.0-30.0) sec CBC 07/21/19 Range/Units 02:42 WBC 11.0 H (3.8-10.6) k/uL RBC 4.66 (3.80-5.40) m/uL Hgb 12.8 (11.4-16.0) gm/dL Hct 40.6 (34.0-46.0) % Plt Count 372 (150-450) k/uL Comprehensive Metabolic Panel 07/21/19 Range/Units 02:42 Sodium 141 (137-145) mmol/L Potassium 3.9 (3.5-5.1) mmol/L Chloride 112 H (98-107) mmol/L Carbon Dioxide 21 L (22-30) mmol/L BUN 20 H (7-17) mg/dL Creatinine 0.55 (0.52-1.04) mg/dL Glucose 136 H (74-99) mg/dL Calcium 8.9 (8.4-10.2) mg/dL AST 20 (14-36) U/L ALT 10 (4-34) U/L Alkaline Phosphatase 45 (38-126) U/L Total Protein 6.6 (6.3-8.2) g/dL Albumin 3.5 (3.5-5.0) g/dL Current Medications Generic Name Dose Route Start Last Admin Trade Name Freq PRN Reason Stop Dose Admin Alprazolam 0.5 mg 07/21/19 09:00 Xanax PO BID [facility] Aspirin 325 mg 07/21/19 09:00 Aspirin PO DAILY [facility] Atorvastatin Calcium 40 mg 07/21/19 21:00 Lipitor PO HS [facility] Docusate Sodium 100 mg 07/21/19 09:00 Colace PO BID [facility] Flecainide Acetate 100 mg 07/21/19 07:00 Tambocor PO Q12H [facility] Cefoxitin Sodium 1 gm/ Sodium 50 mls @ 100 mls/hr 07/21/19 11:00 Chloride IVPB Q6H [facility] Magnesium Sulfate/Dextrose 1 100 mls @ 100 mls/hr 07/21/19 05:45 gm/ IV Solution IVPB 07/21/19 08:44 Q1H [facility] Sodium Chloride 1,000 mls @ 100 mls/hr 07/21/19 06:45 Saline 0.9% IV .Q10H [facility] Miscellaneous Information 1 each 07/21/19 05:35 Magnesium Per Protocol MISCELLANE DAILY PRN Per Protocol Protocol Miscellaneous Information 1 each 07/21/19 06:41 Coumadin Per Pharmacy MISCELLANE DIRECTED PRN Per Protocol Morphine Sulfate 4 mg 07/21/19 04:17 Morphine Sulfate (Inj) IV Q4HR PRN Severe Pain Naloxone HCl 0.2 mg 07/21/19 04:17 Narcan IV Q2M PRN Opioid Reversal Ondansetron HCl 4 mg 07/21/19 04:17 Zofran IVP Q8HR PRN Nausea And Vomiting Pantoprazole Sodium 40 mg 07/21/19 07:30 Protonix PO AC-BRKFST [facility] Valsartan 320 mg 07/21/19 09:00 Diovan PO DAILY [facility] Intake and Output 07/20/19 07/21/19 07/21/19 22:59 06:59 14:59 Other: Weight 79.923 kg 07/21/19 02:42 07/21/19 02:42 Assessment and Plan Assessment: Assessment #1 chest discomfort seems to be atypical of ischemic heart disease #2 chronic pain syndrome. The patient is on multiple pain medications and narcotics at home #3 paroxysmal atrial fibrillation. She has been maintaining normal sinus mechanism #4 hypertension #5 dyslipidemia #6 smoking Plan #1 rule out acute coronary event. We will follow-up with the serial cardiac enzymes. The second set of troponin would be up very soon #2 pulmonary impossible is unlikely giving her elevated INR at 4 when she presented to the hospital. We will get d-dimer just to rule out that. #3 obtain the previous medical records from the office and also touch base with Dr. Prescott #4 further recommendation to follow that Thank you for allowing us participate in her care
[2019-07-21 07:55] VITALS: RESP 18
[2019-07-21] MEDS: MAGNESIUM SULFATE-D5W PMX 1 GM in DEXTROSE/WATER 1 100ML.BAG IVPB SCH ×3 (08:08→11:48)
[2019-07-21] MEDS: SODIUM CHLORIDE 0.9% 1,000 ML IV SCH ×5 (08:12→22:56)
[2019-07-21] MEDS ORDERED: NITROGLYCERIN SL TABS 0.4 MG TAB SUBLINGUAL PRN (08:44)
[2019-07-21] MEDS: MORPHINE SULFATE 4 MG/ML SYRINGE IV PRN ×2 (08:44→20:29)
[2019-07-21] MEDS ORDERED: ONDANSETRON 4 MG TAB PO PRN (08:44)
--- NOTE | 2019-07-21 08:53 | P.PN ---
Progress Note - Text Progress Note Date: 07/21/19 briefly this is a 68-year-old female who is a bilateral lower extremity amputee who presented with atypical chest pain, during her last hospitalization the patient was supposed to have a cardiac catheterization but this was not performed secondary to the patient's UTI. Workup so far has been negative her troponin was less than 0.012, the patient was seen by cardiology earlier. We'll continue to trend the troponins. the patient has chronic regional pain syndrome his opioid dependentrestart her home medications. She is also noted to have a supratherapeutic INR in the setting of taking Macrobid for UTI prophylaxis and was on Coumadin therapy for her paroxysmal A. fib. She was noted to have a Klebsiella and ESBL UTI earlier this month
[2019-07-21] MEDS ORDERED: VALSARTAN 160 MG TAB PO SCH (09:00)
[2019-07-21] MEDS: ONDANSETRON 4 MG/2 ML VIAL IVP PRN ×2 (09:19→18:39)
[2019-07-21] MEDS: NITROFURANTOIN MONOHYD/M-CRYST 100 MG CAP PO SCH ×2 (09:25→20:26)
[2019-07-21] MEDS: ASPIRIN 325 MG TAB PO SCH (09:30)
[2019-07-21] MEDS: PANTOPRAZOLE 40 MG TABLET PO SCH (09:30)
[2019-07-21] MEDS: cloNIDine HCL 0.1 MG TAB PO SCH ×3 (09:30→20:26)
[2019-07-21] MEDS: DOCUSATE 100 MG CAP PO SCH ×2 (09:30→20:26)
[2019-07-21] MEDS: ALPRAZolam 0.5 MG TAB PO SCH ×2 (09:30→20:26)
[2019-07-21] MEDS: FLECAINIDE 50 MG TAB PO SCH ×2 (09:31→20:25)
[2019-07-21] MEDS ORDERED: LIDOCAINE 1% INJ 10MG/ML (20 ML MDV) ONE ×2 (09:50)
[2019-07-21] MEDS ORDERED: IV FLUID CONTINUATION 1,000 ML IV ONE (10:09)
[2019-07-21] MEDS ORDERED: VERAPAMIL 2.5 MG/ML 2 ML AMP ONE (10:17)
[2019-07-21] MEDS ORDERED: LIDOCAINE 1% INJ 10MG/ML (20 ML MDV) SQ ONE (10:29)
[2019-07-21] MEDS ORDERED: VERAPAMIL SYRINGE (5 MG/10 ML) INTRAARTER ONE (10:30)
[2019-07-21] MEDS ORDERED: MIDAZOLAM 2 MG/2 ML VIAL IVP ONE (10:31)
[2019-07-21] MEDS ORDERED: HEPARIN SODIUM 1,000 UN/ML (10ML VL) IV ONE (10:40)
[2019-07-21] MEDS ORDERED: IOPAMIDOL-370 125ML BTL INJ ONE (10:58)
--- NOTE | 2019-07-21 11:04 | P.CARDCATH ---
Date of Procedure: 07/21/19 Preoperative Diagnosis: unstable angina Postoperative Diagnosis: diffuse coronary artery disease without any critical lesions Procedure(s) Performed: left heart catheterization without left ventriculography Description of Procedure: HISTORY: This is a 66-year-old female with history of hypertension, hypercholesterolemia and also smoking history was admitted to the hospital with complaints of chest pain. Patient was evaluated by Dr. Lantigua and advised that patient have cardiac catheterization for definitive diagnosis. CONSENT:I have discussed the risks, benefits and alternative therapies for the above-mentioned procedure and for both sedation/analgesia as well as necessary blood product administration, if indicated, as they pertain to this patient. The patient has indicated understanding and acceptance of the risks and procedures discussed. PROCEDURE: Patient was brought to the lab in a fasting state. Patient was given some IV sedation. The right groin is infiltrated with lidocaine and right radial artery was entered using Seldinger technique. A 6-Filipino catheter was left in place and selective coronary arteriography was performed. Patient tolerated the procedure well. TR band was applied for hemostasis. No immediate complications were noted and patient was transferred to [facility] in a stable condition Conscious Sedation: Versed 0.5mg Fentanyl 0 g Duration 26minutes HEMODYNAMICS: the aortic pressure is about 150/80. The left ventricle end- diastolic pressure was not measured SELECTIVE CORONARY ARTERIOGRAPHY: LEFT MAIN: The left main coronary artery is huge in c aliber and free of any occlusive disease. THE LEFT ANTERIOR DESCENDING CORONARY ARTERY: This is a good caliber vessel giving rise to good-sized first diagonal branch. The ve ssel is free of any significant focal occlusive disease except a mild plaque in the proximal portion. THE LEFT CIRCUMFLEX AND IS CORONARY ARTERY: This is a nondominant vessel but giving rise good-sized OM branch. The OM branch is about 50% stenosis. Rest of the circumflex is free of any significant occlusive disease. THE RIGHT CORONARY ARTERY: This is a large and dominant vessel. Has diffuse disease with ectasia and mild to moderate plaque in the proximal and midportion with the areas of 30-40% lesions. No critical lesions were noted LEFT VENTRICULOGRAPHY: not performed FINAL IMPRESSION: Diffuse coronary artery disease with ectasia and about 30-40% lesions involving the RCA, circumflex and proximal LAD. No significant focal lesions are noted PLAN: Continuation of the maximum medical therapy and this factor modification. PROGNOSIS: fair
[2019-07-21] MEDS ORDERED: RX INFO: IV CONTRAST WAS GIVEN 1 EACH MISC MISCELLANE PRN (11:07)
[2019-07-21] MEDS: ALBUTEROL NEBULIZED 2.5 MG/3 ML INHALATION PRN ×2 (11:33→19:22)
[2019-07-21] MEDS: VALSARTAN 160 MG TAB PO SCH (11:47)
[2019-07-21] MEDS: HYDROcodone/APAP 10-325MG 1 EACH TAB PO PRN (13:02)
[2019-07-21] MEDS: MORPHINE SULFATE ER 30 MG TABLET PO PRN (14:41)
[2019-07-21] MEDS ORDERED: WARFARIN 0.5 MG TAB PO ONE (18:00)
[2019-07-21] MEDS ORDERED: FENOFIBRATE 160 MG TAB PO SCH (21:00)
[2019-07-21] MEDS ORDERED: SIMETHICONE 80 MG CHEWABLE PO PRN (21:00)
[2019-07-21] MEDS ORDERED: MELATONIN 3 MG TABLET PO SCH (21:00)
[2019-07-21] MEDS ORDERED: ATORVASTATIN 20 MG TAB PO SCH (21:00)
[2019-07-21] MEDS ORDERED: WARFARIN 2 MG TAB PO SCH (21:00)
[2019-07-21] MEDS ORDERED: CALCIUM CARBONATE 500 MG CHEWABLE PO PRN (22:39)
[2019-07-21] MEDS ORDERED: MAG HYDROX/AL HYDROX/SIMETH 30 ML CUP PO PRN (22:39)
[2019-07-22] MEDS: HYDROcodone/APAP 10-325MG 1 EACH TAB PO PRN ×2 (02:07→14:10)
[2019-07-22] MEDS: MORPHINE SULFATE ER 30 MG TABLET PO PRN ×2 (02:08→14:10)
[2019-07-22] MEDS: PANTOPRAZOLE 40 MG TABLET PO SCH (08:03)
[2019-07-22] MEDS: ASPIRIN 325 MG TAB PO SCH (08:03)
[2019-07-22] MEDS: FLECAINIDE 50 MG TAB PO SCH (08:03)
[2019-07-22] MEDS: NITROFURANTOIN MONOHYD/M-CRYST 100 MG CAP PO SCH ×2 (08:03→11:14)
[2019-07-22] MEDS: cloNIDine HCL 0.1 MG TAB PO SCH (08:03)
[2019-07-22] MEDS: ALPRAZolam 0.5 MG TAB PO SCH (08:03)
[2019-07-22] MEDS: DOCUSATE 100 MG CAP PO SCH (08:04)
[2019-07-22] MEDS: VALSARTAN 160 MG TAB PO SCH (08:04)
[2019-07-22] MEDS: ONDANSETRON 4 MG/2 ML VIAL IVP PRN (08:04)
[2019-07-22 08:06] VITALS: BP 197/74; TEMP 98.6
[2019-07-22 08:59] LABS: INR 2.9 (<1.2)
[2019-07-22 10:36] LABS: African American GFR (CKD) >90 (>60 ml/min/1.73 sqM); Anion Gap 7 mmol/L; Blood Urea Nitrogen 13 mg/dL (7-17); Calcium 8.6 mg/dL (8.4-10.2); Carbon Dioxide 20 mmol/L (22-30); Chloride 114 mmol/L (98-107); Glucose 110 mg/dL (74-99); Magnesium 1.8 mg/dL (1.6-2.3); Non-African American GFR(CKD) >90 (>60 ml/min/1.73 sqM); Potassium 4.3 mmol/L (3.5-5.1); Sodium 141 mmol/L (137-145)
--- NOTE | 2019-07-22 10:59 | P.PN ---
Subjective Progress Note Date: 07/22/19 This is a pleasant 64-year-old female patient who follows with Dr. Prescott in the office. Has a past medical history significant for paroxysmal atrial fibrillation, on oral anticoagulation with Coumadin, hypertension, dyslipidemia, smoking, bilateral [id number] amputation and UTIs. Presented to the [facility] with complaints of chest discomfort. She was recently admitted to the hospital a few weeks ago with lower abdominal discomfort and flank discomfort at that point she was diagnosed with UTI. Prior to that admission she was seen by Dr. Prescott in the office as an outpatient and was scheduled to undergo heart catheterization by Dr. Jama but was canceled due to infection. Recurrent chest discomfort she is recommended to undergo cardiac catheterization yesterday. This revealed his coronary artery disease with ectasia and about 30- 40% lesion involving the RCA, circumflex and proximal LAD with no significant focal lesions. She was recommended to continue maximize medical therapy and risk factor modification. Labs this morning show an INR of 2.9, stable BUN and creatinine and potassium 4.3. She is being treated again for UTI. Her blood pressure has been elevated. She is currently on clonidine 0.05 mg 3 times a day and valsartan 160 mg by mouth daily. Upon examination, patient is good planing of some left shoulder pain as well as some abdominal discomfort and side pain. She denies chest discomfort. Objective - Vital Signs Vital signs: Vital Signs Temp 98.6 F 07/22/19 08:00 Pulse 63 07/22/19 08:00 Resp 18 07/22/19 08:00 BP 197/74 07/22/19 08:00 Pulse Ox 95 07/22/19 08:00 Intake & Output 07/21/19 07/22/19 07/22/19 18:59 06:59 18:59 Intake Total 100 475 Balance 100 475 Intake: IV 100 Intake, IV Titration 475 Amount Sodium Chloride 0.9% 1, 475 000 ml @ 75 mls/hr IV . [id number] [facility] Rx#:[id number] Other: # Voids 3 1 - Exam PHYSICAL EXAMINATION: HEENT: Head is atraumatic, normocephalic. Pupils equal, round. Neck is supple. There is no elevated jugular venous pressure. HEART EXAMINATION: Heart sounds regular, S1 and S2 normal. No murmur or gallop heard. CHEST EXAMINATION: Lungs reveal expiratory wheezing throughout. No chest wall tenderness is noted on palpation or with deep breathing. ABDOMEN: Soft, nontender. Bowel sounds are heard. No organomegaly noted. EXTREMITIES: Bilateral AKA noted. Right radial puncture site soft without ecchymosis or hematoma with minimal oozing noted at puncture site. Radial pulses normal and equal bilaterally. NEUROLOGIC patient is awake, alert and oriented x3. . - Labs CBC & Chem 7: 07/21/19 02:42 07/22/19 08:40 Labs: Abnormal Lab Results - Last 24 Hours (Table) 07/22/19 07/22/19 Range/Units 08:40 08:40 PT 28.0 H (9.0-12.0) sec INR 2.9 H (<1.2) Chloride 114 H (98-107) mmol/L Carbon Dioxide 20 L (22-30) mmol/L Creatinine 0.47 L (0.52-1.04) mg/dL Glucose 110 H (74-99) mg/dL Microbiology - Last 24 Hours (Table) 07/21/19 03:01 Urine Culture - Preliminary Urine,Clean Catch Assessment and Plan Assessment: #1 nonobstructive coronary artery disease #2 chronic pain syndrome #3 hypertension, uncontrolled #4 paroxysmal atrial fibrillation, maintaining sinus rhythm. #5 dyslipidemia #6 smoking Plan: From cardiology's perspective, we will increase valsartan, and hydrochlorothiazide and decrease clonidine. Continue maximize medical therapy. She will follow-up in the office in outpatient with Dr. Prescott in about a week. [employer] note has been reviewed, I agree with a documented findings and plan of care. Patient was seen and examined.
[2019-07-22] MEDS ORDERED: HYDROCHLOROTHIAZIDE 25 MG TAB PO SCH (11:00)
[2019-07-22] MEDS ORDERED: HYDROmorphone 1 MG/ML 1 ML SYRINGE IVP STA (11:03)
[2019-07-22] MEDS ORDERED: VALSARTAN 160 MG TAB PO ONE (11:15)
[2019-07-22] MEDS: ALBUTEROL NEBULIZED 2.5 MG/3 ML INHALATION PRN (11:22)
[2019-07-22 11:34] VITALS: PULSE 72
--- NOTE | 2019-07-22 11:47 | P.DS ---
Providers Date of admission: 07/21/19 03:45 Expected date of discharge: 07/22/19 Attending physician: Cristobal Curry MD Consults: 07/21/19 04:18 Consult Physician Routine Consulting Provider: [facility] Consult Reason/Comments: Chest Pain Do you want consulting provider notified?: Yes 07/21/19 08:47 Consult Physician Routine Consulting Provider: Oneil Rivera Consult Reason/Comments: recurrent uti Do you want consulting provider notified?: Yes Primary care physician: Dick Nguyen [facility] Course: 64-year-old female with PMH of hypertension, paroxysmal atrial fibrillation, recurrent UTIs, bilateral AKA presents the ED for chest pain associated with shortness of breath and palpitations along with sweating and nausea. She did have her recent hospitalization for abdominal pain and was found to have a UTI. Urine cultures at that time grew E. coli and Klebsiella sensitive to nitrofurantoin. She did have a CT of the abdomen and pelvis on July 03 which showed bilateral nonobstructing renal calculi. With regard to her chest pain, troponins was less than 0.0123 with EKG showing normal sinus rhythm and possible anterior infarct. Cardiology was consulted and recommended cardiac catheterization. Cardiac catheterization showed diffuse CAD 30-40% involving the RCA, circumflex and proximal LAD. Recommendation was made by cardiology to continue medical therapy and factor modification. She was resumed on aspirin, Lipitor, fenofibrate. Patient was noted to have a supratherapeutic INR 4.2 on admission which trended down to 2.9 on discharge. With regard to her abdominal pain, urinalysis was performed which showed positive nitrite and large leukocyte esterase. She was started on cefoxitin IV and nitrofurantoin. Urology was consulted and recommended outpatient follow-up and no further workup. Kidney and bladder ultrasound was ordered and pending at the time of this note. Patient was seen and examined. No acute events overnight. Patient reports excruciating abdominal pain left upper and lower quadrant with radiation into the groin. Her pain is 10 out of 10 in severity. She is requesting pain medication. Also complains of some nausea. She denies any chest pain, shortness of breath or palpitations. No fever or chills. General: [non toxic], [no distress], [appears at stated age] Derm: [warm], [dry] Head: [atraumatic], [normocephalic], [symmetric] Eyes: [EOMI], [no lid lag], [anicteric sclera] Mouth: [no lip lesion], [mucus membranes moist] Cardiovascular: [S1S2 reg], [no murmur], [positive DP pulse bilateral], Lungs: [CTA bilateral], [no rhonchi, no rales] , [no accessory muscle use] Abdominal: [soft], [tenderness to palpation in the left upper and lower quadrants without rebound], [no guarding], [no appreciable organomegaly], [CVA tenderness on the left side] Ext: [no gross muscle atrophy], [no edema], [no contractures], [bilateral AKA] Neuro: [no focal neuro deficits] Psych: [Alert], [oriented], [appropriate affect] Recurrent urinary tract infection Atypical chest pain Supratherapeutic INR Bilateral nephrolithiasis Chronic conditions: Bilateral AKA, tobacco smoker, GERD, hypertension, paroxysmal atrial fibrillation UA positive nitrite and leukocyte esterase. Urine culture positive GNB. Previously positive for E. coli and Klebsiella sensitive to nitrofurantoin and cefoxitin. Plans: Repeat urine culture. Follow kidney and bladder ultrasound. Urology recommended outpatient follow-up. Troponins were less than 0.0123 with EKG showing normal sinus rhythm and possible anterior infarct. Cardiac catheterization showed 30-40% of the RCA, circumflex and proximal LAD. Plans: Continue aspirin. Patient is on Coumadin so does not require Plavix. Continue Lipitor. Unsure why patient is not on beta jer, will defer to PCP. Follow cardiology recommendations. INR 4.2-2.9. Plans: Resume Coumadin at home dosing. As seen on CT abdomen and pelvis from previous admission. Plans: Discussed with urology, not the source of her abdominal pain, nothing further to do. Adequate pain control. [Patient admitted for chest pain. Acute coronary syndrome ruled out. Kidney and bladder ultrasound ordered. Urine culture pending. Possible DC today if kidney and bladder ultrasound benign 10 pain better controlled this afternoon. Pertinent Studies: Chest x-ray, kidney and bladder ultrasound Procedures: Cardiac catheterization Patient Condition at Discharge: Serious Plan - Discharge Summary New Discharge Prescriptions: New RX: Aspirin 325 mg PO DAILY #30 tab RX: Hydrochlorothiazide [Hydrodiuril] 25 mg PO DAILY #30 tab Continue RX: Fenofibrate 160 mg PO HS RX: Atorvastatin Calcium [Lipitor] 40 mg PO HS RX: cloNIDine HCL [Catapres] 0.05 mg PO TID RX: Warfarin [Coumadin] 2 mg PO HS RX: ALPRAZolam [Xanax] 0.5 mg PO BID RX: Nitroglycerin Sl Tabs [Nitrostat] 0.4 mg SUBLINGUAL Q5M PRN PRN Reason: Chest Pain RX: Morphine Sulfate ER [Ms Contin] 30 mg PO Q12HR PRN #12 tab PRN Reason: Pain RX: Ondansetron HCl [Zofran] 8 mg PO TID PRN #12 tab PRN Reason: Nausea RX: Docusate [Colace] 100 mg PO BID RX: Flecainide Acetate 100 mg PO Q12H RX: Omeprazole 1 cap PO AC-BRKFST RX: Albuterol Nebulized [Ventolin Nebulized] 2.5 mg INHALATION RT-Q6H PRN PRN Reason: Shortness Of Breath RX: Valsartan [Diovan] 160 mg PO DAILY RX: Nitrofurantoin Monohyd/M-Cryst [Macrobid] 100 mg PO Q12HR RX: HYDROcodone/APAP 10-325MG [[place] 10-325] 1 tab PO BID PRN PRN Reason: Pain Discharge Medication List RX: Fenofibrate 160 mg PO HS 11/15/15 [History] RX: Atorvastatin Calcium [Lipitor] 40 mg PO HS 06/21/18 [History] RX: cloNIDine HCL [Catapres] 0.05 mg PO TID 06/21/18 [History] RX: ALPRAZolam [Xanax] 0.5 mg PO BID 01/20/19 [History] RX: Warfarin [Coumadin] 2 mg PO HS 01/20/19 [History] RX: Nitroglycerin Sl Tabs [Nitrostat] 0.4 mg SUBLINGUAL Q5M PRN 03/16/19 [History] RX: Morphine Sulfate ER [Ms Contin] 30 mg PO Q12HR PRN #12 tab 05/31/19 [Rx] RX: Ondansetron HCl [Zofran] 8 mg PO TID PRN #12 tab 05/31/19 [Rx] RX: Docusate [Colace] 100 mg PO BID 07/03/19 [History] RX: Flecainide Acetate 100 mg PO Q12H 07/03/19 [History] RX: Omeprazole 1 cap PO AC-BRKFST 07/05/19 [History] RX: Albuterol Nebulized [Ventolin Nebulized] 2.5 mg INHALATION RT-Q6H PRN 07/21/19 [History] RX: HYDROcodone/APAP 10-325MG [[place] 10-325] 1 tab PO BID PRN 07/21/19 [History] RX: Nitrofurantoin Monohyd/M-Cryst [Macrobid] 100 mg PO Q12HR 07/21/19 [History] RX: Valsartan [Diovan] 160 mg PO DAILY 07/21/19 [History] RX: Aspirin 325 mg PO DAILY #30 tab 07/22/19 [Rx] RX: Hydrochlorothiazide [Hydrodiuril] 25 mg PO DAILY #30 tab 07/22/19 [Rx] Follow up Appointment(s)/Referral(s): Dick Nguyen MD [Primary Care Provider] - 1-2 days Juan Antonio Jama MD [STAFF PHYSICIAN] - 07/28/19 9:00 am (follow up with MALINA Starr for wrist check post heart cath.) Rudolph Moreira MD [STAFF PHYSICIAN] - 1 Week Patient Instructions/Handouts: Left Heart Catheterization (DC) Activity/Diet/Wound Care/Special Instructions: Diet: Cardiac Follow-up PCP within 3 days of discharge. Follow-up cardiology within 1 week of discharge. Follow-up urology within 1 week of discharge. Take all medications as advised. Discharge Disposition: HOME SELF-CARE
--- NOTE | 2019-07-22 12:43 | US ---
EXAMINATION TYPE: US kidneys/renal and bladder DATE OF EXAM: 07/22/2019 COMPARISON: Previous study dated 07/04/2019. CLINICAL HISTORY: abdominal pain. left flank pain, known stones EXAM MEASUREMENTS: Right Kidney: 7.3 x 3.0 x 2.6 cm Left Kidney: 11.1 x 6.7 x 5.3 cm Right Kidney: small in size, cluster of stones seen = 1.6cm, and a cyst = 1.9cm Left Kidney: could not recreate lesion noted previously, appears to have lobular contour that was mal rotated Bladder: wnl Bilateral Jets seen: single jet, appears to be the right Left kidney is small. There is 1.9 cm cyst in the upper pole. Some echogenic foci are noted in the lo wer pole of the right kidney. These may represent stones. There is no evidence of hydronephrosis. The right kidney is again noted to be lobular. Underlying mass is not excluded. IMPRESSION: 1. I CANNOT EXCLUDE NONOBSTRUCTING STONES IN THE RIGHT KIDNEY. 2. CYSTIC CHANGE IN THE RIGHT KIDNEY. 3. LOBULATION OF THE LEFT KIDNEY. 2 RECENT CTS CLARIFY THIS ISSUE. MRI OF THE KIDNEY IS SUGGEST ED.
--- NOTE | 2019-07-22 13:03 | P.GSCN ---
History of Present Illness Consult date: 07/22/19 Reason for Consult: Recurrent UTI History of present illness: 64-year-old female Admitted with a UTI, and chest pain. She has hx of recurrent urinary tract infection, bilateral non-obstructing stones, and right renal at [facility]. She has seen Dr Moreira in the past for her recurrent UTI. She underwent a CT back in 07/03/19 which showed a 1.2 cm right renal stone with renal atrophy and 2mm non-obstructing stone on left. There was also lobulation of the left kidney. She has multiple positive urine culture. Of note she has hx of holding her urine, and indicates she goes 6-8 hours without voiding. She also indicates she has difficulty voiding and has straining with urination. Review of Systems - Constitutional Denies chills, Denies fever - EENT Ears, nose, mouth and throat: Denies dysphagia - Cardiovascular Reports chest pain, Denies dyspnea on exertion - Respiratory Denies cough, Denies cough with sputum, Denies dyspnea - Gastrointestinal Reports abdominal pain, Denies nausea, Denies vomiting - Genitourinary Genitourinary: Reports difficulty voiding, Reports incomplete emptying, Reports urge incontinence, Denies dysuria, Denies flank pain - Neurological Denies confusion, Denies weakness Past Medical History Past Medical History: Atrial Fibrillation, GERD/Reflux, Hyperlipidemia, Hypertension Additional Past Medical History / Comment(s): hx urinary retention,right Nephrolithiasis,recurrent UTI,double amputation lower extrmities, aka. 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 Past Anesthesia/Blood Transfusion Reactions: No Reported Reaction Additional Past Anesthesia/Blood Transfusion Reaction / Comm: Pt received blood in 1978-no reaction reported. Past Psychological History: No Psychological Hx Reported Additional Psychological History / Comment(s): She is independent. She in a bilateral AKA and gets around in a power wheelchair. She has a hospital bed. She no longer drives but takes the bus. Smoking Status: Current every day smoker Past Alcohol Use History: None Reported Additional Past Alcohol Use History / Comment(s): Pt states she started smoking at age 18 yrs and the amount she smokes varies.Smoke a pack in two days Past Drug Use History: None Reported - Past Family History Father Family Medical History: Cancer, Myocardial Infarction (SC) Additional Family Medical History / Comment(s): Father had lung cancer-went into remission. He of a massive SC in his 60's Mother Family Medical History: Cancer Additional Family Medical History / Comment(s): Mother of lung cancer at age 54 yrs. Medications and Allergies Home Medications Medication Instructions Recorded Confirmed Type Fenofibrate 160 mg PO HS 11/15/15 07/21/19 History Atorvastatin Calcium [Lipitor] 40 mg PO HS 06/21/18 07/21/19 History cloNIDine HCL [Catapres] 0.05 mg PO TID 06/21/18 07/21/19 History ALPRAZolam [Xanax] 0.5 mg PO BID 01/20/19 07/21/19 History Warfarin [Coumadin] 2 mg PO HS 01/20/19 07/21/19 History Nitroglycerin Sl Tabs [Nitrostat] 0.4 mg SUBLINGUAL Q5M PRN 03/16/19 07/21/19 History Morphine Sulfate ER [Ms Contin] 30 mg PO Q12HR PRN #12 tab 05/31/19 07/21/19 Rx Ondansetron HCl [Zofran] 8 mg PO TID PRN #12 tab 05/31/19 07/21/19 Rx Docusate [Colace] 100 mg PO BID 07/03/19 07/21/19 History Flecainide Acetate 100 mg PO Q12H 07/03/19 07/21/19 History Omeprazole 1 cap PO AC-BRKFST 07/05/19 07/21/19 History Albuterol Nebulized [Ventolin 2.5 mg INHALATION RT-Q6H PRN 07/21/19 07/21/19 History Nebulized] HYDROcodone/APAP 10-325MG [Herscher 1 tab PO BID PRN 07/21/19 07/21/19 History 10-325] Nitrofurantoin Monohyd/M-Cryst 100 mg PO Q12HR 07/21/19 07/21/19 History [Macrobid] Valsartan [Diovan] 160 mg PO DAILY 07/21/19 07/21/19 History Aspirin 325 mg PO DAILY #30 tab 07/22/19 Rx Hydrochlorothiazide [Hydrodiuril] 25 mg PO DAILY #30 tab 07/22/19 Rx Allergies Allergy/AdvReac Type Severity Reaction Status Date / Time sulfamethoxazole Allergy Itching Verified 07/21/19 07:55 [From ] trimethoprim [From Septra] Allergy Itching Verified 07/21/19 07:55 levofloxacin [From [facility]] AdvReac Muscle Pain Verified 07/21/19 07:55 Surgical - Exam Vital Signs Temp Pulse Resp BP Pulse Ox 97.2 F L 69 18 145/83 98 07/21/19 00:49 07/21/19 00:49 07/21/19 00:49 07/21/19 00:49 07/21/19 00:49 - General well developed, well nourished, no distress, no pain - ENT normal nares, normal mucosa - Respiratory normal expansion, normal respiratory effort - Abdomen Abdomen: soft, tender (LLQ), no rebound, no distended - Psychiatric oriented to time, oriented to person, oriented to place Results - Labs 07/21/19 02:42 07/22/19 08:40 Abnormal Lab Results - Last 24 Hours (Table) 07/21/19 07/21/19 07/21/19 Range/Units 02:42 02:42 02:42 WBC 11.0 H (3.8-10.6) k/uL PT 40.4 H (9.0-12.0) sec INR 4.2 H (<1.2) APTT 56.5 H (22.0-30.0) sec Chloride 112 H (98-107) mmol/L Carbon Dioxide 21 L (22-30) mmol/L BUN 20 H (7-17) mg/dL Glucose 136 H (74-99) mg/dL Magnesium 1.2 L (1.6-2.3) mg/dL Urine Appearance (Clear) Urine Blood (Negative) Urine Nitrite (Negative) Ur Leukocyte Esterase (Negative) Urine RBC (0-5) /hpf Urine WBC (0-5) /hpf Urine Mucus (None) /hpf 07/21/19 Range/Units 03:01 WBC (3.8-10.6) k/uL PT (9.0-12.0) sec INR (<1.2) APTT (22.0-30.0) sec Chloride (98-107) mmol/L Carbon Dioxide (22-30) mmol/L BUN (7-17) mg/dL Glucose (74-99) mg/dL Magnesium (1.6-2.3) mg/dL Urine Appearance Cloudy H (Clear) Urine Blood Trace H (Negative) Urine Nitrite Positive H (Negative) Ur Leukocyte Esterase Large H (Negative) Urine RBC 6 H (0-5) /hpf Urine WBC 120 H (0-5) /hpf Urine Mucus Rare H (None) /hpf Microbiology - Last 24 Hours (Table) 07/21/19 03:01 Urine Culture - Preliminary Urine,Clean Catch Diabetes panel 07/21/19 Range/Units 02:42 Sodium 141 (137-145) mmol/L Potassium 3.9 (3.5-5.1) mmol/L Chloride 112 H (98-107) mmol/L Carbon Dioxide 21 L (22-30) mmol/L BUN 20 H (7-17) mg/dL Creatinine 0.55 (0.52-1.04) mg/dL Glucose 136 H (74-99) mg/dL Calcium 8.9 (8.4-10.2) mg/dL AST 20 (14-36) U/L ALT 10 (4-34) U/L Alkaline Phosphatase 45 (38-126) U/L Total Protein 6.6 (6.3-8.2) g/dL Albumin 3.5 (3.5-5.0) g/dL Calcium panel 07/21/19 Range/Units 02:42 Calcium 8.9 (8.4-10.2) mg/dL Albumin 3.5 (3.5-5.0) g/dL Pituitary panel 07/21/19 Range/Units 02:42 Sodium 141 (137-145) mmol/L Potassium 3.9 (3.5-5.1) mmol/L Chloride 112 H (98-107) mmol/L Carbon Dioxide 21 L (22-30) mmol/L BUN 20 H (7-17) mg/dL Creatinine 0.55 (0.52-1.04) mg/dL Glucose 136 H (74-99) mg/dL Calcium 8.9 (8.4-10.2) mg/dL Adrenal panel 07/21/19 Range/Units 02:42 Sodium 141 (137-145) mmol/L Potassium 3.9 (3.5-5.1) mmol/L Chloride 112 H (98-107) mmol/L Carbon Dioxide 21 L (22-30) mmol/L BUN 20 H (7-17) mg/dL Creatinine 0.55 (0.52-1.04) mg/dL Glucose 136 H (74-99) mg/dL Calcium 8.9 (8.4-10.2) mg/dL Total Bilirubin 0.3 (0.2-1.3) mg/dL AST 20 (14-36) U/L ALT 10 (4-34) U/L Alkaline Phosphatase 45 (38-126) U/L Total Protein 6.6 (6.3-8.2) g/dL Albumin 3.5 (3.5-5.0) g/dL Assessment and Plan Assessment: 64 yo female with hx of recurrent UTI, hx of right sided renal atrophy. Admitted with chest pain and UTI. Has hx of bilateral non-obstructing stone and right sided renal atrophy. Had 4 urine cultures within the past year showing Klebsiella. Hx of difficulty voiding and elevated PVR at 215 mL. Plan: -Patient UTI most likely secondary to incomplete bladder emptying, Will recommend [facility] teaching. Will need to perform this q 8 hours -F/U one urine culture -Bilateral renal stone are non-obstructive, no evidence of hydronephrosis. If she continues to have Recurrent UTIs despite CIC then will need to have her stone addressed as the cause of her recurrent UTI. -CT and RBUS showed lobulation of left kidney, review imaging showed no obvious renal mass. Can have an outpatient MRI to better characterize the lesion, given her CKD and lack of contrast on CT -F/U outpatient with Dr Moreira in 2-3 weeks
[2019-07-22] MEDS: SODIUM CHLORIDE 0.9% 1,000 ML IV SCH ×2 (13:09→15:19)
[2019-07-22] MEDS ORDERED: WARFARIN 1 MG TAB PO ONE (18:00)
[2019-07-22] MEDS ORDERED: cloNIDine HCL 0.1 MG TAB PO SCH (21:00)
[2019-07-23] MEDS ORDERED: VALSARTAN 160 MG TAB PO SCH (09:00)
== END 2019-07-22 16:05 | disposition home or self-care (01) ==
LOC: EC 00:40 → 1SOBS 03:45
PROVIDERS: ADMIT Internal Medicine; ATTEND Internal Medicine
DX: R07.89 Other chest pain (principal); N39.0 Urinary tract infection, site not specified; B96.89 Other specified bacterial agents as the cause of diseases classified elsewhere; I25.110 Atherosclerotic heart disease of native coronary artery with unstable angina pectoris; R79.1 Abnormal coagulation profile; N20.0 Calculus of kidney; I48.0 Paroxysmal atrial fibrillation; E83.42 Hypomagnesemia; I12.9 Hypertensive chronic kidney disease with stage 1 through stage 4 chronic kidney disease, or unspecified chronic kidney disease; N18.9 Chronic kidney disease, unspecified; G89.4 Chronic pain syndrome; E78.00 Pure hypercholesterolemia, unspecified; K21.9 Gastro-esophageal reflux disease without esophagitis; E78.5 Hyperlipidemia, unspecified; Q61.9 Cystic kidney disease, unspecified; Q63.1 Lobulated, fused and horseshoe kidney; F17.210 Nicotine dependence, cigarettes, uncomplicated; Z89.612 Acquired absence of left leg above knee; Z89.611 Acquired absence of right leg above knee; Z87.76 Personal history of (corrected) congenital malformations of integument, limbs and musculoskeletal system; Z79.01 Long term (current) use of anticoagulants; Z79.899 Other long term (current) drug therapy; Z88.2 Allergy status to sulfonamides; Z88.1 Allergy status to other antibiotic agents; Z87.440 Personal history of urinary (tract) infections; Z87.81 Personal history of (healed) traumatic fracture; Z86.39 Personal history of other endocrine, nutritional and metabolic disease; Z86.19 Personal history of other infectious and parasitic diseases; Z98.890 Other specified postprocedural states; Z90.49 Acquired absence of other specified parts of digestive tract; Z90.710 Acquired absence of both cervix and uterus; Z98.1 Arthrodesis status; Z90.722 Acquired absence of ovaries, bilateral; Z86.69 Personal history of other diseases of the nervous system and sense organs; Z99.3 Dependence on wheelchair; Z82.49 Family history of ischemic heart disease and other diseases of the circulatory system; Z80.1 Family history of malignant neoplasm of trachea, bronchus and lung
CPT/HCPCS: 96376 ×2; 96374; 96375; 99285; 36415; 94640 ×3; 94760; 93005; 93454; 80053; 80048; 83735 ×2; 84484; 85025; 85610 ×2; 85730; 81001; 87086; 87077; 87186; 71046; 76770; G0378 ×2; C1769 ×3; C1894; J2250; J2270; J2405 ×2; J0694 ×2; J2001; J1644; J1170; J3475; Q9967

== ENCOUNTER 2019-08-30 20:14 | Emergency (ER) | payer OTHER ==
[2019-08-30 20:22] VITALS: RESP 18; TEMP 98.8
[2019-08-30] MEDS ORDERED: MORPHINE SULFATE 4 MG/ML SYRINGE IV STA (21:20)
[2019-08-30] MEDS ORDERED: LABETALOL 5 MG/ML VIAL MDV IVP STA ×2 (21:51→21:53)
[2019-08-30] MEDS ORDERED: HYDROmorphone 0.5 MG/0.5 ML SYRINGE IVP STA ×2 (21:52→23:50)
--- NOTE | 2019-08-30 21:53 | CT ---
EXAMINATION TYPE: CT brain wo con DATE OF EXAM: 08/30/2019 COMPARISON: None HISTORY: htn Weakness CT DLP: 1182.4 mGycm Automated exposure control for dose reduction was used. Exam performed with no contrast. There is linear 2 x 1 cm hypodense area anterior right internal capsule. There is no mass effect nor midline shift. There is no sign of intracranial hemorrhage. Calvarium is intact. There is asymmetric mild enlargement of the frontal horn right lateral ventricle. There is singh and white matter hypodensity right posterior temporal lobe. There is osteosclerosis in the temporal bones. IMPRESSION: Old lacunar infarct anterior right internal capsule. Old right posterior temporal lobe 3 cm infarct. No acute intracranial abnormality.
[2019-08-30 21:58] LABS: INR 2.3 (<1.2); Partial Thromboplastin Time 33.9 sec (22.0-30.0); Prothrombin Time 22.4 sec (9.0-12.0)
--- NOTE | 2019-08-30 21:58 | CT ---
EXAMINATION TYPE: CT abdomen pelvis wo con DATE OF EXAM: 08/30/2019 COMPARISON: None HISTORY: flank pain CT DLP: 816.9 mGycm Automated exposure control for dose reduction was used. Multiple axial sections were obtained from the diaphragm to the floor the pelvis with no contrast. Lung bases are clear of consolidation. There is minimal atelectasis right posterior lung base. There is no pleural effusion. Heart is borderline enlarged. There is small hiatal hernia. Liver and spleen appear intact. Bile ducts are not dilated. There are clips from cholecystectomy. The re is no pancreatic mass. Right kidney shows significant atrophy. There is 12 mm calculus in the right kidney. Left kidney show s fairly normal overall size. There is 2 mm calculus lower pole left kidney. There is no hydronephros is. There is some mild lobulation of the left kidney that could relate to cortical scarring. Ureters are not dilated. Bladder distends smoothly. There is no inguinal hernia. There is broad-based lower anterior abdominal wall ventral hernia that contains omental fat and anterior urinary bladder. There is no free fluid in the pelvis. There is no sign of a bowel obstruction. There is no mesenteric edema. There is no ascites or free air. Appendix is not seen. There is no sign of thickened appendix . IMPRESSION: Bilateral renal calculi. No renal obstruction seen. No sign of acute abdomen and pelvis. right renal atrophy.
[2019-08-30 21:59] LABS: ALT 12 U/L (4-34); AST 22 U/L (14-36); African American GFR (CKD) >90 (>60 ml/min/1.73 sqM); Alkaline Phosphatase 60 U/L (38-126); Anion Gap 11 mmol/L; Blood Urea Nitrogen 21 mg/dL (7-17); Calcium 10.2 mg/dL (8.4-10.2); Carbon Dioxide 19 mmol/L (22-30); Chloride 113 mmol/L (98-107); Glucose 85 mg/dL (74-99); Non-African American GFR(CKD) >90 (>60 ml/min/1.73 sqM); Potassium 3.8 mmol/L (3.5-5.1); Sodium 143 mmol/L (137-145); Total Bilirubin 0.5 mg/dL (0.2-1.3); Total Protein 7.2 g/dL (6.3-8.2)
[2019-08-30 22:00] LABS: Basophils # (A) 0.1 k/uL (0-0.2); Basophils % (A) 1 %; Eosinophils # (A) 0.1 k/uL (0-0.7); Eosinophils % (A) 0 %; HCT 45.6 % (34.0-46.0); HGB 14.9 gm/dL (11.4-16.0); Lymphocytes # (A) 1.9 k/uL (1.0-4.8); Lymphocytes % (A) 18 %; MCH 28.1 pg (25.0-35.0); MCHC 32.8 g/dL (31.0-37.0); MCV 85.7 fL (80.0-100.0); Mean Platelet Volume 9.3; Monocytes # (A) 0.5 k/uL (0-1.0); Monocytes % (A) 5 %; Neutrophils # (A) 8.2 k/uL (1.3-7.7); Neutrophils % (A) 75 %; Platelet Count 466 k/uL (150-450); RBC 5.32 m/uL (3.80-5.40); RDW 15.1 % (11.5-15.5); WBC 10.9 k/uL (3.8-10.6)
[2019-08-30 23:56] LABS: Appearance,Urine Cloudy (Clear); Bacteria,Urine Occasional /hpf; Bilirubin,Urine Negative (Negative); Blood,Urine Trace (Negative); Color,Urine Yellow; Glucose,Urine (UA) Negative (Negative); Ketones,Urine Negative (Negative); Leukocyte Esterase,Urine Large (Negative); Mucus,Urine Few /hpf; Nitrite,Urine Positive (Negative); PH, Urine 5.5 (5.0-8.0); Protein,Urine Trace (Negative); RBC,Urine 7 /hpf (0-5); Specific Gravity,Urine 1.017 (1.001-1.035); Squamous Epithelial Cell,Urine 1 /hpf (0-4); Urobilinogen,Urine <2.0 mg/dL (<2.0); WBC,Urine 170 /hpf (0-5)
[2019-08-31] MEDS ORDERED: cefTRIAXone IN SWFI 1,000 MG/10 ML SYRINGE IVP STA
--- NOTE | 2019-08-31 00:05 | ED ---
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 Presents ED for chief complaint of hypertension, frontal lobe headache, left lower quadrant abdominal pain. Patient reports that she has had chronic abdominal pain reportedly due to renal calculi. She reports that for her chronic pain she is on Elmo as well as extended release morphine. She reports that she has run out of these medications and she wishes she is having breakthrough pain. Patient has having pain in her left lower quadrant. Patient also reports that she has had a frontal lobe headache which began approximately 3 hours prior to arrival. Describes that she it as a pressure, she believes is because her blood pressure is high. Denies any other complaints at this time. Systemic: Pt denies fatigue, fever/chills, rash. Pt denies weakness, night sweats, weight loss. Neuro: Pt denies visual disturbances, syncope or pre-syncope. HEENT: Pt denies ocular discharge or irritation, otalgia, rhinorrhea, pharyngitis or notable lymphadenopathy. Cardiopulmonary: Pt denies chest pain, SOB, heart palpitations, dyspnea on exertion. Abdominal/GI: Pt denies abdominal pain, n/v/d. : Pt denies dysuria, burning w/ urination, frequency/urgency. Denies new onset urinary or bowel incontinence. MSK: Pt denies myalgia, loss of strength or function in extremities. Neuro: Pt denies new onset weakness, paresthesias. (Zack Gibbons) - Related Data Home Medications Medication Instructions Recorded Confirmed Fenofibrate 160 mg PO HS 11/15/15 07/21/19 Atorvastatin Calcium [Lipitor] 40 mg PO HS 06/21/18 07/21/19 cloNIDine HCL [Catapres] 0.05 mg PO TID 06/21/18 07/21/19 ALPRAZolam [Xanax] 0.5 mg PO BID 01/20/19 07/21/19 Warfarin [Coumadin] 2 mg PO HS 01/20/19 07/21/19 Nitroglycerin Sl Tabs [Nitrostat] 0.4 mg SUBLINGUAL Q5M PRN 03/16/19 07/21/19 Docusate [Colace] 100 mg PO BID 07/03/19 07/21/19 Flecainide Acetate 100 mg PO Q12H 07/03/19 07/21/19 Omeprazole 1 cap PO AC-BRKFST 07/05/19 07/21/19 Albuterol Nebulized [Ventolin 2.5 mg INHALATION RT-Q6H PRN 07/21/19 07/21/19 Nebulized] HYDROcodone/APAP 10-325MG [Elmo 1 tab PO BID PRN 07/21/19 07/21/19 10-325] Valsartan [Diovan] 160 mg PO DAILY 07/21/19 07/21/19 Previous Rx's Medication Instructions Recorded Morphine Sulfate ER [Ms Contin] 30 mg PO Q12HR PRN #12 tab 05/31/19 Ondansetron HCl [Zofran] 8 mg PO TID PRN #12 tab 05/31/19 Aspirin 325 mg PO DAILY #30 tab 07/22/19 Hydrochlorothiazide [Hydrodiuril] 25 mg PO DAILY #30 tab 07/22/19 Nitrofurantoin Monohyd/M-Cryst 100 mg PO Q12HR #20 cap 07/22/19 [Macrobid] Cephalexin [Keflex] 500 mg PO Q6HR 10 Days #40 cap 08/31/19 Allergies Allergy/AdvReac Type Severity Reaction Status Date / Time sulfamethoxazole Allergy Itching Verified 07/21/19 07:55 [From Septra] trimethoprim [From Septra] Allergy Itching Verified 07/21/19 07:55 levofloxacin [From Levaquin] AdvReac Muscle Pain Verified 07/21/19 07:55 Review of Systems ROS Other: All systems not noted in ROS Statement are negative. <Zack Gibbons - Last Filed: 08/31/19 14:06> ROS Other: All systems not noted in ROS Statement are negative. <Cinthya Coronel - Last Filed: 09/01/19 15:16> ROS Statement: Those systems with pertinent positive or pertinent negative responses have been documented in the HPI. Past Medical History Past Medical History: Atrial Fibrillation, GERD/Reflux, Hyperlipidemia, Hypertension Additional Past Medical History / Comment(s): hx urinary retention,right Nephrolithiasis,recurrent UTI,double amputation lower extrmities, aka. History of Any Multi-Drug Resistant Organisms: ESBL Date of last positivie culture/infection: 07/21/19 ESBL E.coli MDRO Source:: Urine Past Surgical History: Section, Cholecystectomy, Hysterectomy, Orthopedic Surgery Additional Past Surgical History / Comment(s): PT HAD BILAT AKA AT AGE 6 DUE TO DEFECT, cervical FUSION, RIGHT ARM HARDWARE, Left nephrostolithotomy- 05/2017, x 3, virginie oophorectomies-d/t cysts, bilateral carpal tunnel release. Past Anesthesia/Blood Transfusion Reactions: No Reported Reaction Additional Past Anesthesia/Blood Transfusion Reaction / Comment(s): Pt received blood in 1978-no reaction reported. Past Psychological History: No Psychological Hx Reported Smoking Status: Current every day smoker Past Alcohol Use History: None Reported Past Drug Use History: None Reported - Past Family History Father Family Medical History: Cancer, Myocardial Infarction ([place]) Additional Family Medical History / Comment(s): Father had lung cancer-went into remission. He of a massive [place] in his 60's Mother Family Medical History: Cancer Additional Family Medical History / Comment(s): Mother of lung cancer at age 54 yrs. <Zack Gibbons - Last Filed: 08/31/19 14:06> General Exam <Zack Gibbons - Last Filed: 08/31/19 14:06> - General Exam Comments Initial Comments: Constitutional: NAD, AOX3, Pt has pleasant affect. HEENT: NC/AT, trachea midline, neck supple, no lymphadenopathy. Posterior pharynx non erythematous, without exudates. External ears appear normal, without discharge. Mucous membranes moist. Eyes PERRLA, EOM intact. There is no scleral icterus. No pallor noted. Cardiopulmonary: RRR, no murmurs, rubs or gallops, no JVD noted. Lungs CTAB in anterior and posterior david. No peripheral edema. Abdominal exam: Abdomen soft and non-distended. Abdomen tender to palpation in left lower quadrant/left flank region.. Bowel sounds active in LLQ. No hepatosplenomegaly. No ecchymosis Neuro: CN II-XII intact. No nuchal rigidity. No raccon eyes, no krishnamurthy sign, no hemotympanum. No cervical spinal tenderness. NIH 0. MSK: No posterior calf tenderness bilaterally, homans sign negative bilaterally. Posterior tibialis and radial pulse +2 bilaterally. Sensation intact in upper and lower extremities. Full active ROM in upper and lower extremities, 5/5 stregnth. (Zack Gibbons) Course Vital Signs 08/30/19 08/30/19 08/30/19 20:15 20:20 20:30 Temperature 98.8 F Pulse Rate 63 75 Respiratory 18 55 H Rate Blood Pressure 201/92 201/92 201/92 O2 Sat by Pulse 94 L 91 L 96 Oximetry 08/30/19 08/30/19 08/30/19 21:00 21:27 21:30 Temperature Pulse Rate 68 71 67 Respiratory 22 18 28 H Rate Blood Pressure 173/94 186/100 186/100 O2 Sat by Pulse 98 96 93 L Oximetry 08/30/19 08/30/19 08/30/19 22:00 22:10 22:30 Temperature Pulse Rate 70 73 Respiratory 18 Rate Blood Pressure 172/93 160/99 177/99 O2 Sat by Pulse 92 L 95 96 Oximetry 08/30/19 08/30/19 08/30/19 22:39 23:00 23:30 Temperature Pulse Rate 74 71 73 Respiratory 18 Rate Blood Pressure 161/90 163/92 151/90 O2 Sat by Pulse 96 96 96 Oximetry 08/31/19 08/31/19 08/31/19 00:00 00:30 01:00 Temperature Pulse Rate 70 Respiratory Rate Blood Pressure 152/98 183/94 182/97 O2 Sat by Pulse 97 96 95 Oximetry 08/31/19 01:05 Temperature Pulse Rate 78 Respiratory 18 Rate Blood Pressure 176/94 O2 Sat by Pulse 98 Oximetry Medical Decision Making - Lab Data Result diagrams: 08/30/19 20:25 08/30/19 20:25 <Zack Gibbons - Last Filed: 08/31/19 14:06> - Lab Data Result diagrams: 08/30/19 20:25 08/30/19 20:25 <Cinthya Coronel - Last Filed: 09/01/19 15:16> - Medical Decision Making 64-year-old female patient past medical history of atrial fibrillation antic oagulated on warfarin, hypertension, hyperlipidemia, nephrolithiasis, 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 Presents ED for chief complaint of hypertension, frontal lobe headache, left lower quadrant abdominal pain. Patient reports that she has had chronic abdominal pain reportedly due to renal calculi. She reports that for her chronic pain she is on Elmo as well as extended release morphine. She reports that she has run out of these medications and she wishes she is having breakthrough pain. Patient has having pain in her left lower quadrant. Patient also reports that she has had a frontal lobe headache which began approximately 3 hours prior to arrival. Describes that she it as a pressure, she believes is because her blood pressure is high. Denies any other complaints at this time. Patient will signs with hypertension, patient administered antihypertensive. Patient also exams within normal limits. NIH is 0. Abdomen soft and non-distended. Abdomen tender to pal pation in left lower quadrant/left flank region. O2 investigations were obtained. Mild cytosis of 10.9. INR 2.3 on warfarin. Blood chemistry non- impressive. UA displayed a urinary tract infection. Patient administered Rocephin. CT abdomen and pelvis without contrast was obtained, it displayed bilateral renal calculi. No obstruction seen. No sign of acute abdomen pelvis. Right renal atrophy. 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 No acute intracranial abnormality. Patient blood pressure with except limits upon discharge. Patient will be discharged with Keflex and follow-up with primary care provider tomorrow. Will return to ER if condition worsens. Case discussed with Dr. Coronel. (Zack Gibbons) I was available for consultation in the emergency department. The history and physical exam were done by the midlevel provider. I was consulted for this patients care. I reviewed the case with the midlevel provider and based on their presentation of the patient, I agree with the assessment, medical decision making and plan of care as documented. Chart was dictated using [employer] dictation software. Attempts were made to correct any dictation errors however some typographical errors may persist. (Cinthya Coronel) - Lab Data Lab Results 08/30/19 08/30/19 08/30/19 Range/Units 20:25 20:25 20:25 WBC 10.9 H (3.8-10.6) k/uL RBC 5.32 (3.80-5.40) m/uL Hgb 14.9 (11.4-16.0) gm/dL Hct 45.6 (34.0-46.0) % MCV 85.7 (80.0-100.0) fL MCH 28.1 (25.0-35.0) pg MCHC 32.8 (31.0-37.0) g/dL RDW 15.1 (11.5-15.5) % Plt Count 466 H (150-450) k/uL Neutrophils % 75 % Lymphocytes % 18 % Monocytes % 5 % Eosinophils % 0 % Basophils % 1 % Neutrophils # 8.2 H (1.3-7.7) k/uL Lymphocytes # 1.9 (1.0-4.8) k/uL Monocytes # 0.5 (0-1.0) k/uL Eosinophils # 0.1 (0-0.7) k/uL Basophils # 0.1 (0-0.2) k/uL PT (9.0-12.0) sec INR (<1.2) APTT (22.0-30.0) sec Sodium 143 (137-145) mmol/L Potassium 3.8 (3.5-5.1) mmol/L Chloride 113 H (98-107) mmol/L Carbon Dioxide 19 L (22-30) mmol/L Anion Gap 11 mmol/L BUN 21 H (7-17) mg/dL Creatinine 0.52 (0.52-1.04) mg/dL Est GFR (CKD-EPI)AfAm >90 (>60 ml/min/1.73 sqM) Est GFR (CKD-EPI)NonAf >90 (>60 ml/min/1.73 sqM) Glucose 85 (74-99) mg/dL Plasma Lactic Acid Joshua 0.9 (0.7-2.0) mmol/L Calcium 10.2 (8.4-10.2) mg/dL Total Bilirubin 0.5 (0.2-1.3) mg/dL AST 22 (14-36) U/L ALT 12 (4-34) U/L Alkaline Phosphatase 60 (38-126) U/L Total Protein 7.2 (6.3-8.2) g/dL Albumin 4.0 (3.5-5.0) g/dL Urine Color Urine Appearance (Clear) Urine pH (5.0-8.0) Ur Specific [place] (1.001-1.035) Urine Protein (Negative) Urine Glucose (UA) (Negative) Urine Ketones (Negative) Urine Blood (Negative) Urine Nitrite (Negative) Urine Bilirubin (Negative) Urine Urobilinogen (<2.0) mg/dL Ur Leukocyte Esterase (Negative) Urine RBC (0-5) /hpf Urine WBC (0-5) /hpf Ur Squamous Epith Cells (0-4) /hpf Urine Bacteria (None) /hpf Urine Mucus (None) /hpf 08/30/19 08/30/19 Range/Units 20:25 23:40 WBC (3.8-10.6) k/uL RBC (3.80-5.40) m/uL Hgb (11.4-16.0) gm/dL Hct (34.0-46.0) % MCV (80.0-100.0) fL MCH (25.0-35.0) pg MCHC (31.0-37.0) g/dL RDW (11.5-15.5) % Plt Count (150-450) k/uL Neutrophils % % Lymphocytes % % Monocytes % % Eosinophils % % Basophils % % Neutrophils # (1.3-7.7) k/uL Lymphocytes # (1.0-4.8) k/uL Monocytes # (0-1.0) k/uL Eosinophils # (0-0.7) k/uL Basophils # (0-0.2) k/uL PT 22.4 H (9.0-12.0) sec INR 2.3 H (<1.2) APTT 33.9 H (22.0-30.0) sec Sodium (137-145) mmol/L Potassium (3.5-5.1) mmol/L Chloride (98-107) mmol/L Carbon Dioxide (22-30) mmol/L Anion Gap mmol/L BUN (7-17) mg/dL Creatinine (0.52-1.04) mg/dL Est GFR (CKD-EPI)AfAm (>60 ml/min/1.73 sqM) Est GFR (CKD-EPI)NonAf (>60 ml/min/1.73 sqM) Glucose (74-99) mg/dL Plasma Lactic Acid Joshua (0.7-2.0) mmol/L Calcium (8.4-10.2) mg/dL Total Bilirubin (0.2-1.3) mg/dL AST (14-36) U/L ALT (4-34) U/L Alkaline Phosphatase (38-126) U/L Total Protein (6.3-8.2) g/dL Albumin (3.5-5.0) g/dL Urine Color Yellow Urine Appearance Cloudy H (Clear) Urine pH 5.5 (5.0-8.0) Ur Specific [place] 1.017 (1.001-1.035) Urine Protein Trace H (Negative) Urine Glucose (UA) Negative (Negative) Urine Ketones Negative (Negative) Urine Blood Trace H (Negative) Urine Nitrite Positive H (Negative) Urine Bilirubin Negative (Negative) Urine Urobilinogen <2.0 (<2.0) mg/dL Ur Leukocyte Esterase Large H (Negative) Urine RBC 7 H (0-5) /hpf Urine WBC 170 H (0-5) /hpf Ur Squamous Epith Cells 1 (0-4) /hpf Urine Bacteria Occasional H (None) /hpf Urine Mucus Few H (None) /hpf Disposition Is patient prescribed a controlled substance at d/c from ED?: No <Zack Gibbons - Last Filed: 08/31/19 14:06> <Cinthya Coronel - Last Filed: 09/01/19 15:16> Clinical Impression: Abdominal pain, UTI (urinary tract infection), Headache Disposition: HOME SELF-CARE Condition: Stable Instructions (If sedation given, give patient instructions): Urinary Tract Infection in Women (ED), Acute Headache (ED) Additional Instructions: Take antibiotics as directed. Follow up with primary care provider tomorrow. Follow-up with urologist as previously referred by primary care provider. Return immediately to your condition worsens. Explaine findings to primary care provider including old stroke. Per patient request: Pt was administered morphine and dilaudid in ED. Prescriptions: Cephalexin [Keflex] 500 mg PO Q6HR 10 Days #40 cap Referrals: Arvin Aburto MD [Primary Care Provider] - 1-2 days
[2019-08-31] MEDS ORDERED: METOCLOPRAMIDE 5 MG/ML 2 ML VIAL IVP STA ×2 (00:37→00:45)
[2019-08-31] MEDS ORDERED: diphenhydrAMINE 50 MG/ML 1 ML VIAL IVP STA (00:39)
[2019-08-31 01:09] VITALS: BP 176/94; PULSE 78
== END 2019-08-31 01:18 | disposition home or self-care (01) ==
LOC: EC 20:14
DX: N39.0 Urinary tract infection, site not specified (principal); R51 Headache; G89.29 Other chronic pain; I48.91 Unspecified atrial fibrillation; I10 Essential (primary) hypertension; E78.5 Hyperlipidemia, unspecified; F17.200 Nicotine dependence, unspecified, uncomplicated; Z79.01 Long term (current) use of anticoagulants; Z79.899 Other long term (current) drug therapy; Z88.1 Allergy status to other antibiotic agents; Z88.2 Allergy status to sulfonamides; Z90.49 Acquired absence of other specified parts of digestive tract; Z90.710 Acquired absence of both cervix and uterus; Z98.1 Arthrodesis status
CPT/HCPCS: 36415; 80053; 83605; 85025; 85610; 85730; 81001; 87086; 70450; 74176; 99285; 96374; 96375 ×5; 96376; J2270; J1200; J2765; J0696; J1170 ×2; 87077; 87186

== ENCOUNTER 2019-10-01 18:58 | Emergency (ER) | payer OTHER ==
[2019-10-01] MEDS ORDERED: SODIUM CHLORIDE 0.9% 500 ML 500 ML IV STA (19:14)
[2019-10-01] MEDS ORDERED: HYDROmorphone 1 MG/ML 1 ML SYRINGE IVP STA (19:14)
[2019-10-01] MEDS ORDERED: ONDANSETRON 4 MG/2 ML VIAL IVP ONE (19:25)
[2019-10-01 20:15] LABS: Appearance,Urine Cloudy (Clear); Bacteria,Urine Moderate /hpf; Bilirubin,Urine Negative (Negative); Blood,Urine Trace (Negative); Color,Urine Yellow; Glucose,Urine (UA) Negative (Negative); Ketones,Urine Trace (Negative); Leukocyte Esterase,Urine Large (Negative); Mucus,Urine Rare /hpf; Nitrite,Urine Positive (Negative); PH, Urine 5.5 (5.0-8.0); Protein,Urine Trace (Negative); RBC,Urine 4 /hpf (0-5); Specific Gravity,Urine 1.022 (1.001-1.035); Squamous Epithelial Cell,Urine <1 /hpf (0-4); Urobilinogen,Urine <2.0 mg/dL (<2.0); WBC,Urine 69 /hpf (0-5)
[2019-10-01 20:34] LABS: Basophils # (A) 0.1 k/uL (0-0.2); Basophils % (A) 1 %; Eosinophils # (A) 0.1 k/uL (0-0.7); Eosinophils % (A) 1 %; HGB 14.5 gm/dL (11.4-16.0); Lymphocytes # (A) 2.8 k/uL (1.0-4.8); Lymphocytes % (A) 26 %; MCH 28.3 pg (25.0-35.0); MCHC 32.2 g/dL (31.0-37.0); MCV 87.8 fL (80.0-100.0); Mean Platelet Volume 8.3; Monocytes # (A) 0.4 k/uL (0-1.0); Monocytes % (A) 4 %; Neutrophils # (A) 7.1 k/uL (1.3-7.7); Neutrophils % (A) 67 %; Platelet Count 397 k/uL (150-450); RBC 5.13 m/uL (3.80-5.40); RDW 15.3 % (11.5-15.5); WBC 10.7 k/uL (3.8-10.6)
--- NOTE | 2019-10-01 20:41 | ED ---
General Adult HPI - General Chief complaint: Abdominal Pain Stated complaint: Abdominal pain; hypertension Time Seen by Provider: 10/01/19 19:03 Source: patient, EMS, RN notes reviewed, old records reviewed Mode of arrival: EMS Limitations: physical limitation - History of Present Illness Initial comments: 64-year-old female presenting for evaluation of abdominal pain. Patient has chronic abdominal pain is currently on delayed release oral morphine 30 mg. She states she's developed some worsening left lower quadrant abdominal pain over the past several days with some associated diarrhea. She's had nausea without vomiting. She reports subjective fever and chills. She was admitted with similar abdominal pain within the last month. She was found have urinary tract infection and was treated with antibiotics. She denies current dysuria or he maturia. Denies flank pain. Denies upper abdominal pain. No chest pain or dyspnea. - Related Data Home Medications Medication Instructions Recorded Confirmed Fenofibrate 160 mg PO HS 11/15/15 07/21/19 Atorvastatin Calcium [Lipitor] 40 mg PO HS 06/21/18 07/21/19 cloNIDine HCL [Catapres] 0.05 mg PO TID 06/21/18 07/21/19 ALPRAZolam [Xanax] 0.5 mg PO BID 01/20/19 07/21/19 Warfarin [Coumadin] 2 mg PO HS 01/20/19 07/21/19 Nitroglycerin Sl Tabs [Nitrostat] 0.4 mg SUBLINGUAL Q5M PRN 03/16/19 07/21/19 Docusate [Colace] 100 mg PO BID 07/03/19 07/21/19 Flecainide Acetate 100 mg PO Q12H 07/03/19 07/21/19 Omeprazole 1 cap PO AC-BRKFST 07/05/19 07/21/19 Albuterol Nebulized [Ventolin 2.5 mg INHALATION RT-Q6H PRN 07/21/19 07/21/19 Nebulized] HYDROcodone/APAP 10-325MG [Branch 1 tab PO BID PRN 07/21/19 07/21/19 10-325] Valsartan [Diovan] 160 mg PO DAILY 07/21/19 07/21/19 Previous Rx's Medication Instructions Recorded Morphine Sulfate ER [Ms Contin] 30 mg PO Q12HR PRN #12 tab 05/31/19 Ondansetron HCl [Zofran] 8 mg PO TID PRN #12 tab 05/31/19 Aspirin 325 mg PO DAILY #30 tab 07/22/19 Hydrochlorothiazide [Hydrodiuril] 25 mg PO DAILY #30 tab 07/22/19 Nitrofurantoin Monohyd/M-Cryst 100 mg PO Q12HR #20 cap 07/22/19 [Macrobid] Cephalexin [Keflex] 500 mg PO Q6HR 10 Days #40 cap 08/31/19 Nitrofurantoin Monohyd/M-Cryst 100 mg PO Q12HR #20 cap 10/01/19 [Macrobid] Allergies Allergy/AdvReac Type Severity Reaction Status Date / Time sulfamethoxazole Allergy Itching Verified 10/01/19 19:10 [From Septra] trimethoprim [From Septra] Allergy Itching Verified 10/01/19 19:10 levofloxacin [From Levaquin] AdvReac Muscle Pain Verified 10/01/19 19:10 Review of Systems ROS Statement: Those systems with pertinent positive or pertinent negative responses have been documented in the HPI. ROS Other: All systems not noted in ROS Statement are negative. Past Medical History Past Medical History: Atrial Fibrillation, GERD/Reflux, Hyperlipidemia, Hypertension Additional Past Medical History / Comment(s): hx urinary retention,right Nephrolithiasis,recurrent UTI,double amputation lower extrmities, aka. 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 Past Anesthesia/Blood Transfusion Reactions: No Reported Reaction Additional Past Anesthesia/Blood Transfusion Reaction / Comment(s): Pt received blood in 1978-no reaction reported. Past Psychological History: No Psychological Hx Reported Smoking Status: Current every day smoker Past Alcohol Use History: None Reported Past Drug Use History: None Reported - Past Family History Father Family Medical History: Cancer, Myocardial Infarction ([place]) Additional Family Medical History / Comment(s): Father had lung cancer-went into remission. He of a massive [place] in his 60's Mother Family Medical History: Cancer Additional Family Medical History / Comment(s): Mother of lung cancer at age 54 yrs. General Exam Limitations: physical limitation General appearance: alert, in no apparent distress Head exam: Present: atraumatic, normocephalic Eye exam: Present: normal appearance, PERRL ENT exam: Present: normal exam Neck exam: Present: normal inspection. Absent: tenderness Respiratory exam: Present: normal lung sounds bilaterally. Absent: respiratory distress, wheezes Cardiovascular Exam: Present: regular rate, normal rhythm GI/Abdominal exam: Present: soft, tenderness (Minimal right lower quadrant abdominal tenderness). Absent: distended, guarding, rebound Extremities exam: Present: normal capillary refill, other (Bilateral [id number] amputations) Back exam: Present: normal inspection Neurological exam: Present: alert. Absent: motor sensory deficit Psychiatric exam: Present: normal affect, normal mood Skin exam: Present: warm, dry, intact. Absent: cyanosis, diaphoretic Course Vital Signs 10/01/19 10/01/19 19:04 20:49 Temperature 99.5 F Pulse Rate 78 80 Respiratory 18 19 Rate Blood Pressure 199/88 143/84 O2 Sat by Pulse 98 99 Oximetry - Reevaluation(s) Reevaluation #1: 10/01/19 21:24 Further history obtained from the patient she does take 60 mg of morphine twice daily and Branch as twice daily. She's been out of these medications for the past 24 hours. She has a pain contract and follows with a pain specialist. I suspect her abdominal pain is related to opiate withdrawal. Medical Decision Making - Medical Decision Making 64-year-old female with chronic pain, abdominal pain. She is out of her medications which include oral morphine and Branch 10 mg tablets. She has a pain contract and follows with pain management. She had an admission for her abdominal pain within the past month with significant workup, evaluation by multiple specialists. Urinalysis today is showing persistent signs of urinary tract infection. Culture is obtained and this will be treated with Macrobid as she was previously sensitive to Macrobid. X-ray negative for obstruction or intraperitoneal free air. Her blood cell count 10.9, stiff hemoglobin. Patient will be discharged with close outpatient follow-up and return parameters. - Lab Data Result diagrams: 10/01/19 20:13 10/01/19 20:13 Lab Results 10/01/19 10/01/19 10/01/19 Range/Units 20:05 20:13 20:13 WBC 10.7 H (3.8-10.6) k/uL RBC 5.13 (3.80-5.40) m/uL Hgb 14.5 (11.4-16.0) gm/dL Hct 45.0 (34.0-46.0) % MCV 87.8 (80.0-100.0) fL MCH 28.3 (25.0-35.0) pg MCHC 32.2 (31.0-37.0) g/dL RDW 15.3 (11.5-15.5) % Plt Count 397 (150-450) k/uL Neutrophils % 67 % Lymphocytes % 26 % Monocytes % 4 % Eosinophils % 1 % Basophils % 1 % Neutrophils # 7.1 (1.3-7.7) k/uL Lymphocytes # 2.8 (1.0-4.8) k/uL Monocytes # 0.4 (0-1.0) k/uL Eosinophils # 0.1 (0-0.7) k/uL Basophils # 0.1 (0-0.2) k/uL Sodium 140 (137-145) mmol/L Potassium 4.0 (3.5-5.1) mmol/L Chloride 111 H (98-107) mmol/L Carbon Dioxide 18 L (22-30) mmol/L Anion Gap 11 mmol/L BUN 23 H (7-17) mg/dL Creatinine 0.51 L (0.52-1.04) mg/dL Est GFR (CKD-EPI)AfAm >90 (>60 ml/min/1.73 sqM) Est GFR (CKD-EPI)NonAf >90 (>60 ml/min/1.73 sqM) Glucose 81 (74-99) mg/dL Plasma Lactic Acid Joshua (0.7-2.0) mmol/L Calcium 9.3 (8.4-10.2) mg/dL Total Bilirubin 0.6 (0.2-1.3) mg/dL AST 34 (14-36) U/L ALT 16 (4-34) U/L Alkaline Phosphatase 51 (38-126) U/L Total Protein 7.1 (6.3-8.2) g/dL Albumin 4.0 (3.5-5.0) g/dL Amylase 56 (30-110) U/L Lipase 390 H (23-300) U/L Urine Color Yellow Urine Appearance Cloudy H (Clear) Urine pH 5.5 (5.0-8.0) Ur Specific [place] 1.022 (1.001-1.035) Urine Protein Trace H (Negative) Urine Glucose (UA) Negative (Negative) Urine Ketones Trace H (Negative) Urine Blood Trace H (Negative) Urine Nitrite Positive H (Negative) Urine Bilirubin Negative (Negative) Urine Urobilinogen <2.0 (<2.0) mg/dL Ur Leukocyte Esterase Large H (Negative) Urine RBC 4 (0-5) /hpf Urine WBC 69 H (0-5) /hpf Ur Squamous Epith Cells <1 (0-4) /hpf Urine Bacteria Moderate H (None) /hpf Urine Mucus Rare H (None) /hpf 10/01/19 Range/Units 20:13 WBC (3.8-10.6) k/uL RBC (3.80-5.40) m/uL Hgb (11.4-16.0) gm/dL Hct (34.0-46.0) % MCV (80.0-100.0) fL MCH (25.0-35.0) pg MCHC (31.0-37.0) g/dL RDW (11.5-15.5) % Plt Count (150-450) k/uL Neutrophils % % Lymphocytes % % Monocytes % % Eosinophils % % Basophils % % Neutrophils # (1.3-7.7) k/uL Lymphocytes # (1.0-4.8) k/uL Monocytes # (0-1.0) k/uL Eosinophils # (0-0.7) k/uL Basophils # (0-0.2) k/uL Sodium (137-145) mmol/L Potassium (3.5-5.1) mmol/L Chloride (98-107) mmol/L Carbon Dioxide (22-30) mmol/L Anion Gap mmol/L BUN (7-17) mg/dL Creatinine (0.52-1.04) mg/dL Est GFR (CKD-EPI)AfAm (>60 ml/min/1.73 sqM) Est GFR (CKD-EPI)NonAf (>60 ml/min/1.73 sqM) Glucose (74-99) mg/dL Plasma Lactic Acid Joshua 0.8 (0.7-2.0) mmol/L Calcium (8.4-10.2) mg/dL Total Bilirubin (0.2-1.3) mg/dL AST (14-36) U/L ALT (4-34) U/L Alkaline Phosphatase (38-126) U/L Total Protein (6.3-8.2) g/dL Albumin (3.5-5.0) g/dL Amylase (30-110) U/L Lipase (23-300) U/L Urine Color Urine Appearance (Clear) Urine pH (5.0-8.0) Ur Specific [place] (1.001-1.035) Urine Protein (Negative) Urine Glucose (UA) (Negative) Urine Ketones (Negative) Urine Blood (Negative) Urine Nitrite (Negative) Urine Bilirubin (Negative) Urine Urobilinogen (<2.0) mg/dL Ur Leukocyte Esterase (Negative) Urine RBC (0-5) /hpf Urine WBC (0-5) /hpf Ur Squamous Epith Cells (0-4) /hpf Urine Bacteria (None) /hpf Urine Mucus (None) /hpf Disposition Clinical Impression: Urinary tract infection, Abdominal pain, Chronic pain Disposition: HOME SELF-CARE Condition: Fair Instructions (If sedation given, give patient instructions): Abdominal Pain (ED), Urinary Tract Infection in Women (ED) Prescriptions: Nitrofurantoin Monohyd/M-Cryst [Macrobid] 100 mg PO Q12HR #20 cap Is patient prescribed a controlled substance at d/c from ED?: No Referrals: Arvin Aburto MD [Primary Care Provider] - 1-2 days Time of Disposition: 21:26
--- NOTE | 2019-10-01 20:53 | XR ---
EXAMINATION TYPE: XR KUB DATE OF EXAM: 10/01/2019 8:48 PM CLINICAL HISTORY: Abdominal pain and diarrhea. TECHNIQUE: Two supine KUB images of the abdomen are obtained. COMPARISON: CT August 30, 2019. FINDINGS: Some paucity of bowel gas. Visualized gas seen in nondistended small and large bowel loops. Cardiomegaly is present. Underlying scoliosis is seen. Coxa valga positioning bilateral hips redemon strated. Lung bases are clear. No pneumoperitoneum. Cholecystectomy clips are redemonstrated. IMPRESSION: Overall nonspecific but strongly favor a nonobstructive bowel gas pattern.
[2019-10-01 21:00] LABS: ALT 16 U/L (4-34); AST 34 U/L (14-36); African American GFR (CKD) >90 (>60 ml/min/1.73 sqM); Alkaline Phosphatase 51 U/L (38-126); Amylase 56 U/L (30-110); Anion Gap 11 mmol/L; Blood Urea Nitrogen 23 mg/dL (7-17); Calcium 9.3 mg/dL (8.4-10.2); Carbon Dioxide 18 mmol/L (22-30); Chloride 111 mmol/L (98-107); Glucose 81 mg/dL (74-99); Non-African American GFR(CKD) >90 (>60 ml/min/1.73 sqM); Sodium 140 mmol/L (137-145); Total Bilirubin 0.6 mg/dL (0.2-1.3); Total Protein 7.1 g/dL (6.3-8.2)
[2019-10-01] MEDS ORDERED: HYDROcodone/APAP 10-325MG 1 EACH TAB PO ONE (21:23)
[2019-10-01 21:48] VITALS: BP 152/84; PULSE 74; RESP 18; TEMP 97.9
== END 2019-10-01 21:40 | disposition home or self-care (01) ==
LOC: EC 18:58
DX: N39.0 Urinary tract infection, site not specified (principal); G89.29 Other chronic pain; R19.7 Diarrhea, unspecified; R11.0 Nausea; I48.91 Unspecified atrial fibrillation; K21.9 Gastro-esophageal reflux disease without esophagitis; E78.5 Hyperlipidemia, unspecified; I10 Essential (primary) hypertension; F17.200 Nicotine dependence, unspecified, uncomplicated; Z88.1 Allergy status to other antibiotic agents; Z88.2 Allergy status to sulfonamides; Z79.01 Long term (current) use of anticoagulants; Z79.899 Other long term (current) drug therapy; Z90.49 Acquired absence of other specified parts of digestive tract; Z89.611 Acquired absence of right leg above knee; Z89.612 Acquired absence of left leg above knee
CPT/HCPCS: 36415; 80053; 82150; 83605; 83690; 85025; 81001; 87086; 87077; 87186; 74018; 99285; 96374; 96375; 96361; J2405; J1170

== ENCOUNTER 2019-10-27 20:28 | Emergency (ER) | payer OTHER ==
[2019-10-27 20:39] VITALS: RESP 18; TEMP 99.3
[2019-10-27] MEDS ORDERED: ONDANSETRON 4 MG/2 ML VIAL IVP STA (20:53)
[2019-10-27] MEDS ORDERED: HYDROmorphone 1 MG/ML 1 ML SYRINGE IVP STA ×2 (20:53→22:18)
[2019-10-27] MEDS ORDERED: cloNIDine HCL 0.1 MG TAB PO STA (20:55)
--- NOTE | 2019-10-27 21:24 | ED ---
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 Patient states that she started having left lower quadrant pain earlier today has persisted and become worse. Patient states that she also felt like her A. fib was acting up she was experiencing racing heart and chest pressure. She denies any shortness of breath or cough with this. Denies any fever or chills. States she is currently taking antibiotics for possible infection, she is not sure which infection. States that she has been having difficulty with urinations with possibly a bladder infection. Patient denies any recent rash, back pain, numbness, ting ling, dizziness, weakness, headache, visual changes, or any other complaints. - Related Data Home Medications Medication Instructions Recorded Confirmed Fenofibrate 160 mg PO HS 11/15/15 07/21/19 Atorvastatin Calcium [Lipitor] 40 mg PO HS 06/21/18 07/21/19 cloNIDine HCL [Catapres] 0.05 mg PO TID 06/21/18 07/21/19 ALPRAZolam [Xanax] 0.5 mg PO BID 01/20/19 07/21/19 Warfarin [Coumadin] 2 mg PO HS 01/20/19 07/21/19 Nitroglycerin Sl Tabs [Nitrostat] 0.4 mg SUBLINGUAL Q5M PRN 03/16/19 07/21/19 Docusate [Colace] 100 mg PO BID 07/03/19 07/21/19 Flecainide Acetate 100 mg PO Q12H 07/03/19 07/21/19 Omeprazole 1 cap PO AC-BRKFST 07/05/19 07/21/19 Albuterol Nebulized [Ventolin 2.5 mg INHALATION RT-Q6H PRN 07/21/19 07/21/19 Nebulized] HYDROcodone/APAP 10-325MG [[facility] 1 tab PO BID PRN 07/21/19 07/21/19 10-325] Valsartan [Diovan] 160 mg PO DAILY 07/21/19 07/21/19 Previous Rx's Medication Instructions Recorded Morphine Sulfate ER [Ms Contin] 30 mg PO Q12HR PRN #12 tab 05/31/19 Ondansetron HCl [Zofran] 8 mg PO TID PRN #12 tab 05/31/19 Aspirin 325 mg PO DAILY #30 tab 07/22/19 Hydrochlorothiazide [Hydrodiuril] 25 mg PO DAILY #30 tab 07/22/19 Nitrofurantoin Monohyd/M-Cryst 100 mg PO Q12HR #20 cap 07/22/19 [Macrobid] Cephalexin [Keflex] 500 mg PO Q6HR 10 Days #40 cap 08/31/19 Nitrofurantoin Monohyd/M-Cryst 100 mg PO Q12HR #20 cap 10/01/19 [Macrobid] Allergies Allergy/AdvReac Type Severity Reaction Status Date / Time sulfamethoxazole Allergy Itching Verified 10/01/19 19:10 [From Septra] trimethoprim [From Septra] Allergy Itching Verified 10/01/19 19:10 levofloxacin [From Levaquin] AdvReac Muscle Pain Verified 10/01/19 19:10 Review of Systems ROS Statement: Those systems with pertinent positive or pertinent negative responses have been documented in the HPI. ROS Other: All systems not noted in ROS Statement are negative. Past Medical History Past Medical History: Atrial Fibrillation, GERD/Reflux, Hyperlipidemia, Hypertension Additional Past Medical History / Comment(s): hx urinary retention,right Nephrolithiasis,recurrent UTI,double amputation lower extrmities, aka. 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 Past Anesthesia/Blood Transfusion Reactions: No Reported Reaction Additional Past Anesthesia/Blood Transfusion Reaction / Comment(s): Pt received blood in 1978-no reaction reported. Past Psychological History: Anxiety Smoking Status: Current every day smoker Past Alcohol Use History: None Reported Past Drug Use History: None Reported - Past Family History Father Family Medical History: Cancer, Myocardial Infarction ([place]) Additional Family Medical History / Comment(s): Father had lung cancer-went into remission. He of a massive [place] in his 60's Mother Family Medical History: Cancer Additional Family Medical History / Comment(s): Mother of lung cancer at age 54 yrs. General Exam General appearance: alert, in no apparent distress, other (This is a well- developed, well-nourished adult female patient in no acute distress. Vital signs upon presentation are temperature 99.3F, pulse 74, respirations 18, blood pressure 183/116, pulse ox 94% on room air.) ENT exam: Present: normal exam, normal oropharynx, mucous membranes moist Respiratory exam: Present: normal lung sounds bilaterally. Absent: respiratory distress, wheezes, rales, rhonchi, stridor Cardiovascular Exam: Present: regular rate, normal rhythm, normal heart sounds. Absent: systolic murmur, diastolic murmur, rubs, gallop, clicks GI/Abdominal exam: Present: soft, tenderness (Left lower quadrant and left upper quadrant tenderness), normal bowel sounds. Absent: distended, guarding, rebound, rigid Neurological exam: Present: alert, oriented X3, CN II-XII intact Psychiatric exam: Present: normal affect, normal mood Skin exam: Present: warm, dry, intact, normal color. Absent: rash Course Vital Signs 10/27/19 10/27/19 10/27/19 20:37 21:24 22:04 Temperature 99.3 F Pulse Rate 74 67 Respiratory 18 18 Rate Blood Pressure 183/116 176/95 175/86 O2 Sat by Pulse 94 L 96 Oximetry 10/27/19 22:26 Temperature Pulse Rate 62 Respiratory 18 Rate Blood Pressure 154/85 O2 Sat by Pulse 97 Oximetry Medical Decision Making - Medical Decision Making 64-year-old female patient presents to the emergency department today for evaluation of left lower quadrant abdominal pain and tenderness. Patient is r eporting constipation. Physical examination did reveal left lower quadrant tenderness. Patient did have a bowel movement while she was here. Patient is out of her home pain medication. Patient urine shows urinary tract infection and she just started a prescription for Levaquin for this. Labs reviewed and are relatively unremarkable. Patient did have computed tomography scan in August. She is instructed to follow-up with her primary care physician for recheck in 1-2 days. Return parameters were discussed in detail. She verbalizes understanding and agrees with this plan. - Lab Data Result diagrams: 10/27/19 20:41 10/27/19 20:41 Lab Results 10/27/19 10/27/19 10/27/19 Range/Units 20:41 20:41 20:41 WBC 9.5 (3.8-10.6) k/uL RBC 4.94 (3.80-5.40) m/uL Hgb 13.8 (11.4-16.0) gm/dL Hct 43.0 (34.0-46.0) % MCV 87.2 (80.0-100.0) fL MCH 28.0 (25.0-35.0) pg MCHC 32.1 (31.0-37.0) g/dL RDW 15.0 (11.5-15.5) % Plt Count 462 H (150-450) k/uL Neutrophils % 56 % Lymphocytes % 32 % Monocytes % 7 % Eosinophils % 1 % Basophils % 1 % Neutrophils # 5.3 (1.3-7.7) k/uL Lymphocytes # 3.1 (1.0-4.8) k/uL Monocytes # 0.7 (0-1.0) k/uL Eosinophils # 0.1 (0-0.7) k/uL Basophils # 0.1 (0-0.2) k/uL PT 27.5 H (9.0-12.0) sec INR 2.8 H (<1.2) APTT 35.7 H (22.0-30.0) sec Sodium 138 (137-145) mmol/L Potassium 3.5 (3.5-5.1) mmol/L Chloride 110 H (98-107) mmol/L Carbon Dioxide 20 L (22-30) mmol/L Anion Gap 8 mmol/L BUN 21 H (7-17) mg/dL Creatinine 0.57 (0.52-1.04) mg/dL Est GFR (CKD-EPI)AfAm >90 (>60 ml/min/1.73 sqM) Est GFR (CKD-EPI)NonAf >90 (>60 ml/min/1.73 sqM) Glucose 94 (74-99) mg/dL Calcium 9.4 (8.4-10.2) mg/dL Total Bilirubin 0.3 (0.2-1.3) mg/dL AST 22 (14-36) U/L ALT 13 (4-34) U/L Alkaline Phosphatase 43 (38-126) U/L Troponin I (0.000-0.034) ng/mL Total Protein 6.6 (6.3-8.2) g/dL Albumin 3.7 (3.5-5.0) g/dL Amylase 65 (30-110) U/L Lipase 243 (23-300) U/L Urine Color Urine Appearance (Clear) Urine pH (5.0-8.0) Ur Specific [place] (1.001-1.035) Urine Protein (Negative) Urine Glucose (UA) (Negative) Urine Ketones (Negative) Urine Blood (Negative) Urine Nitrite (Negative) Urine Bilirubin (Negative) Urine Urobilinogen (<2.0) mg/dL Ur Leukocyte Esterase (Negative) Urine RBC (0-5) /hpf Urine WBC (0-5) /hpf Ur Squamous Epith Cells (0-4) /hpf Urine Mucus (None) /hpf 10/27/19 10/27/19 Range/Units 20:41 20:41 WBC (3.8-10.6) k/uL RBC (3.80-5.40) m/uL Hgb (11.4-16.0) gm/dL Hct (34.0-46.0) % MCV (80.0-100.0) fL MCH (25.0-35.0) pg MCHC (31.0-37.0) g/dL RDW (11.5-15.5) % Plt Count (150-450) k/uL Neutrophils % % Lymphocytes % % Monocytes % % Eosinophils % % Basophils % % Neutrophils # (1.3-7.7) k/uL Lymphocytes # (1.0-4.8) k/uL Monocytes # (0-1.0) k/uL Eosinophils # (0-0.7) k/uL Basophils # (0-0.2) k/uL PT (9.0-12.0) sec INR (<1.2) APTT (22.0-30.0) sec Sodium (137-145) mmol/L Potassium (3.5-5.1) mmol/L Chloride (98-107) mmol/L Carbon Dioxide (22-30) mmol/L Anion Gap mmol/L BUN (7-17) mg/dL Creatinine (0.52-1.04) mg/dL Est GFR (CKD-EPI)AfAm (>60 ml/min/1.73 sqM) Est GFR (CKD-EPI)NonAf (>60 ml/min/1.73 sqM) Glucose (74-99) mg/dL Calcium (8.4-10.2) mg/dL Total Bilirubin (0.2-1.3) mg/dL AST (14-36) U/L ALT (4-34) U/L Alkaline Phosphatase (38-126) U/L Troponin I <0.012 (0.000-0.034) ng/mL Total Protein (6.3-8.2) g/dL Albumin (3.5-5.0) g/dL Amylase (30-110) U/L Lipase (23-300) U/L Urine Color Yellow Urine Appearance Cloudy H (Clear) Urine pH 6.0 (5.0-8.0) Ur Specific [place] 1.020 (1.001-1.035) Urine Protein Negative (Negative) Urine Glucose (UA) Negative (Negative) Urine Ketones Negative (Negative) Urine Blood Negative (Negative) Urine Nitrite Negative (Negative) Urine Bilirubin Negative (Negative) Urine Urobilinogen <2.0 (<2.0) mg/dL Ur Leukocyte Esterase Large H (Negative) Urine RBC 6 H (0-5) /hpf Urine WBC 63 H (0-5) /hpf Ur Squamous Epith Cells 8 H (0-4) /hpf Urine Mucus Rare H (None) /hpf - Radiology Data Radiology results: report reviewed, image reviewed KUB is obtained. Report was reviewed in its entirety. Impression by Dr. Jimenez shows overall nonobstructive bowel gas pattern. Right-sided renal calculi are stable. Disposition Clinical Impression: Abdominal pain Disposition: HOME SELF-CARE Condition: Good Instructions (If sedation given, give patient instructions): Abdominal Pain (ED) Additional Instructions: Follow up with the primary care physician for recheck in 1-2 days. Continue home medications as directed. Return to the emergency department for any new, worsening, or concerning symptoms. Is patient prescribed a controlled substance at d/c from ED?: No Referrals: Arvin Aburto MD [Primary Care Provider] - 1-2 days Time of Disposition: 22:18
[2019-10-27 21:31] LABS: Basophils # (A) 0.1 k/uL (0-0.2); Basophils % (A) 1 %; Eosinophils # (A) 0.1 k/uL (0-0.7); Eosinophils % (A) 1 %; HGB 13.8 gm/dL (11.4-16.0); Lymphocytes # (A) 3.1 k/uL (1.0-4.8); Lymphocytes % (A) 32 %; MCHC 32.1 g/dL (31.0-37.0); MCV 87.2 fL (80.0-100.0); Mean Platelet Volume 8.6; Monocytes # (A) 0.7 k/uL (0-1.0); Monocytes % (A) 7 %; Neutrophils # (A) 5.3 k/uL (1.3-7.7); Neutrophils % (A) 56 %; Platelet Count 462 k/uL (150-450); RBC 4.94 m/uL (3.80-5.40); WBC 9.5 k/uL (3.8-10.6)
[2019-10-27 21:33] LABS: Appearance,Urine Cloudy (Clear); Bilirubin,Urine Negative (Negative); Blood,Urine Negative (Negative); Color,Urine Yellow; Glucose,Urine (UA) Negative (Negative); Ketones,Urine Negative (Negative); Leukocyte Esterase,Urine Large (Negative); Mucus,Urine Rare /hpf; Nitrite,Urine Negative (Negative); Protein,Urine Negative (Negative); RBC,Urine 6 /hpf (0-5); Squamous Epithelial Cell,Urine 8 /hpf (0-4); Urobilinogen,Urine <2.0 mg/dL (<2.0); WBC,Urine 63 /hpf (0-5)
[2019-10-27 21:39] LABS: ALT 13 U/L (4-34); AST 22 U/L (14-36); African American GFR (CKD) >90 (>60 ml/min/1.73 sqM); Albumin 3.7 g/dL (3.5-5.0); Alkaline Phosphatase 43 U/L (38-126); Amylase 65 U/L (30-110); Anion Gap 8 mmol/L; Blood Urea Nitrogen 21 mg/dL (7-17); Calcium 9.4 mg/dL (8.4-10.2); Carbon Dioxide 20 mmol/L (22-30); Chloride 110 mmol/L (98-107); Glucose 94 mg/dL (74-99); Non-African American GFR(CKD) >90 (>60 ml/min/1.73 sqM); Potassium 3.5 mmol/L (3.5-5.1); Sodium 138 mmol/L (137-145); Total Bilirubin 0.3 mg/dL (0.2-1.3); Total Protein 6.6 g/dL (6.3-8.2)
[2019-10-27 21:43] LABS: INR 2.8 (<1.2); Partial Thromboplastin Time 35.7 sec (22.0-30.0); Prothrombin Time 27.5 sec (9.0-12.0)
--- NOTE | 2019-10-27 21:44 | XR ---
EXAMINATION TYPE: XR KUB DATE OF EXAM: 10/27/2019 9:25 PM CLINICAL HISTORY: Abdominal pain unspecified. TECHNIQUE: Two supine KUB images of the abdomen are obtained. COMPARISON: CT abdomen and pelvis August 30, 2019 and abdominal x-ray October 01, 2019.. FINDINGS: Exam suboptimal secondary to patient's large body habitus. Scattered gas is seen in non-dis tended small and large bowel loops. Cholecystectomy clips are redemonstrated. Pelvic deformity remain s present. Underlying coxa valga and scoliosis suspected. Lung bases are clear. Cardiomegaly is prese nt. Stable 12 mm lower pole right renal calculus. Stable 10 mm calculus right mid ureter. IMPRESSION: Overall nonobstructive bowel gas pattern remains present. Right-sided renal calculi are stable.
[2019-10-27 22:27] VITALS: BP 154/85; PULSE 62
== END 2019-10-27 22:45 | disposition home or self-care (01) ==
LOC: EC 20:28
DX: R10.32 Left lower quadrant pain (principal); N39.0 Urinary tract infection, site not specified; K59.00 Constipation, unspecified; R07.89 Other chest pain; I48.91 Unspecified atrial fibrillation; K21.9 Gastro-esophageal reflux disease without esophagitis; E78.5 Hyperlipidemia, unspecified; I10 Essential (primary) hypertension; F41.9 Anxiety disorder, unspecified; F17.200 Nicotine dependence, unspecified, uncomplicated; Z88.1 Allergy status to other antibiotic agents; Z88.2 Allergy status to sulfonamides; Z79.01 Long term (current) use of anticoagulants; Z79.891 Long term (current) use of opiate analgesic; Z79.899 Other long term (current) drug therapy; Z90.49 Acquired absence of other specified parts of digestive tract; Z89.612 Acquired absence of left leg above knee; Z89.611 Acquired absence of right leg above knee; Z98.1 Arthrodesis status; Z87.76 Personal history of (corrected) congenital malformations of integument, limbs and musculoskeletal system
CPT/HCPCS: 36415; 80053; 82150; 83690; 84484; 85025; 85610; 85730; 81001; 87086; 74018; 99285; 96374; 96375; 96376; J2405; J1170

== ENCOUNTER 2019-10-28 16:34 | Inpatient (IN) | payer OTHER ==
[2019-10-28] MEDS ORDERED: SODIUM CHLORIDE 0.9% 500 ML 500 ML IV STA (17:08)
[2019-10-28] MEDS ORDERED: MORPHINE SULFATE 4 MG/ML SYRINGE IVP STA (17:11)
[2019-10-28] MEDS ORDERED: METOCLOPRAMIDE 5 MG/ML 2 ML VIAL IVP STA (17:11)
[2019-10-28 17:19] LABS: Basophils % (A) 0 %; Eosinophils # (A) 0.1 k/uL (0-0.7); Eosinophils % (A) 1 %; HCT 39.7 % (34.0-46.0); HGB 13.4 gm/dL (11.4-16.0); Lymphocytes # (A) 2.6 k/uL (1.0-4.8); Lymphocytes % (A) 34 %; MCHC 33.9 g/dL (31.0-37.0); MCV 85.7 fL (80.0-100.0); Mean Platelet Volume 8.3; Monocytes # (A) 0.3 k/uL (0-1.0); Monocytes % (A) 4 %; Neutrophils # (A) 4.4 k/uL (1.3-7.7); Neutrophils % (A) 58 %; Platelet Count 448 k/uL (150-450); RBC 4.63 m/uL (3.80-5.40); RDW 14.9 % (11.5-15.5); WBC 7.6 k/uL (3.8-10.6)
[2019-10-28 17:28] LABS: INR 2.9 (<1.2); Partial Thromboplastin Time 36.1 sec (22.0-30.0); Prothrombin Time 28.6 sec (9.0-12.0)
[2019-10-28 17:30] LABS: ALT 13 U/L (4-34); AST 19 U/L (14-36); African American GFR (CKD) >90 (>60 ml/min/1.73 sqM); Albumin 3.6 g/dL (3.5-5.0); Alkaline Phosphatase 46 U/L (38-126); Anion Gap 7 mmol/L; Blood Urea Nitrogen 24 mg/dL (7-17); Calcium 9.3 mg/dL (8.4-10.2); Carbon Dioxide 21 mmol/L (22-30); Chloride 111 mmol/L (98-107); Glucose 103 mg/dL (74-99); Magnesium 1.4 mg/dL (1.6-2.3); Non-African American GFR(CKD) >90 (>60 ml/min/1.73 sqM); Potassium 3.9 mmol/L (3.5-5.1); Sodium 139 mmol/L (137-145); Total Bilirubin 0.3 mg/dL (0.2-1.3); Total Protein 6.4 g/dL (6.3-8.2)
--- NOTE | 2019-10-28 17:54 | ED ---
General Adult HPI - General Source: EMS Mode of arrival: EMS Limitations: no limitations <Yessy Bedoya - Last Filed: 10/28/19 18:41> <Zachariah Faye - Last Filed: 10/28/19 19:47> - General Chief complaint: Chest Pain Stated complaint: Chest pain Time Seen by Provider: 10/28/19 16:54 - History of Present Illness Initial comments: Patient is a 64-year-old female, with history of A. fib, hypertension, presentin g to the emergency Department with complaints of lower abdominal pain as well as chest tightness and left arm tightness. She was in the ER yesterday for same abdominal complaint. She states today she felt tightness in her chest as well as going into her left arm. Patient is also still having lower abdominal discomfort she states it is worse than yesterday. She has been nauseous and vomiting as well. No diarrhea. Patient has history of , cholecystectomy, hysterectomy. Patient states she is currently being treated for a chronic UTI with Macrobid. Patient denies any fever or chills, shortness of breath, cough. Patient received an aspirin and Zofran EMS prior to arrival. Upon arrival to ER, patient's temperature is 100.7, blood pressure is 198/99, pulse is 80, 97% on room air. (Yessy Bedoya) - Related Data Home Medications Medication Instructions Recorded Confirmed Fenofibrate 160 mg PO HS 11/15/15 07/21/19 Atorvastatin Calcium [Lipitor] 40 mg PO HS 06/21/18 07/21/19 cloNIDine HCL [Catapres] 0.05 mg PO TID 06/21/18 07/21/19 ALPRAZolam [Xanax] 0.5 mg PO BID 01/20/19 07/21/19 Warfarin [Coumadin] 2 mg PO HS 01/20/19 07/21/19 Nitroglycerin Sl Tabs [Nitrostat] 0.4 mg SUBLINGUAL Q5M PRN 03/16/19 07/21/19 Docusate [Colace] 100 mg PO BID 07/03/19 07/21/19 Flecainide Acetate 100 mg PO Q12H 07/03/19 07/21/19 Omeprazole 1 cap PO AC-BRKFST 07/05/19 07/21/19 Albuterol Nebulized [Ventolin 2.5 mg INHALATION RT-Q6H PRN 07/21/19 07/21/19 Nebulized] HYDROcodone/APAP 10-325MG [[facility] 1 tab PO BID PRN 07/21/19 07/21/19 10-325] Valsartan [Diovan] 160 mg PO DAILY 07/21/19 07/21/19 Previous Rx's Medication Instructions Recorded Morphine Sulfate ER [Ms Contin] 30 mg PO Q12HR PRN #12 tab 05/31/19 Ondansetron HCl [Zofran] 8 mg PO TID PRN #12 tab 05/31/19 Aspirin 325 mg PO DAILY #30 tab 07/22/19 Hydrochlorothiazide [Hydrodiuril] 25 mg PO DAILY #30 tab 07/22/19 Nitrofurantoin Monohyd/M-Cryst 100 mg PO Q12HR #20 cap 07/22/19 [Macrobid] Cephalexin [Keflex] 500 mg PO Q6HR 10 Days #40 cap 08/31/19 Nitrofurantoin Monohyd/M-Cryst 100 mg PO Q12HR #20 cap 10/01/19 [Macrobid] Allergies Allergy/AdvReac Type Severity Reaction Status Date / Time sulfamethoxazole Allergy Itching Verified 10/28/19 16:41 [From Septra] trimethoprim [From Septra] Allergy Itching Verified 10/28/19 16:41 levofloxacin [From Levaquin] AdvReac Muscle Pain Verified 10/28/19 16:41 Review of Systems ROS Other: All systems not noted in ROS Statement are negative. <Yessy Bedoya - Last Filed: 10/28/19 18:41> ROS Other: All systems not noted in ROS Statement are negative. <Zachariah Faye - Last Filed: 10/28/19 19:47> ROS Statement: Those systems with pertinent positive or pertinent negative responses have been documented in the HPI. Past Medical History Past Medical History: Atrial Fibrillation, GERD/Reflux, Hyperlipidemia, Hypertension Additional Past Medical History / Comment(s): hx urinary retention,right Nephrolithiasis,recurrent UTI,double amputation lower extrmities, aka. 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 Past Anesthesia/Blood Transfusion Reactions: No Reported Reaction Additional Past Anesthesia/Blood Transfusion Reaction / Comment(s): Pt received blood in 1978-no reaction reported. Past Psychological History: Anxiety Smoking Status: Current every day smoker Past Alcohol Use History: None Reported Past Drug Use History: None Reported - Past Family History Father Family Medical History: Cancer, Myocardial Infarction ([place]) Additional Family Medical History / Comment(s): Father had lung cancer-went into remission. He of a massive [place] in his 60's Mother Family Medical History: Cancer Additional Family Medical History / Comment(s): Mother of lung cancer at age 54 yrs. <Yessy Bedoya - Last Filed: 10/28/19 18:41> General Exam Limitations: no limitations <Yessy Bedoya - Last Filed: 10/28/19 18:41> - General Exam Comments Initial Comments: GENERAL: Patient uncomfortable, in no acute distress. HEAD: Atraumatic, normocephalic. EYES: Pupils equal round and reactive to light, extraocular movements intact, sclera anicteric, conjunctiva are normal. ENT: TMs normal, nares patent, oropharynx clear without exudates. Moist mucous membranes. NECK: Normal range of motion, supple without lymphadenopathy or JVD. LUNGS: Breath sounds clear to auscultation bilaterally and equal. No wheezes rales or rhonchi. HEART: Regular rate and rhythm without murmurs, rubs or gallops. ABDOMEN: Generalized abdominal tenderness, increased the lower abdomen. Soft, normoactive bowel sounds. No guarding, no rebound. No masses appreciated. : Deferred EXTREMITIES: Normal range of motion, no pitting or edema. No clubbing or cyanosis. NEUROLOGICAL: Cranial nerves II through XII grossly intact. Normal speech, normal gait. PSYCH: Normal mood, normal affect. SKIN: Warm, Dry, normal turgor, no rashes or lesions noted. (Yessy Bedoya) Course <Zachariah Faye - Last Filed: 10/28/19 19:47> Vital Signs 10/28/19 10/28/19 10/28/19 16:35 16:45 18:47 Temperature 100.7 F H Pulse Rate 80 73 Pulse Rate [ 82 Photoresist Printer ] Respiratory 18 18 Rate Blood Pressure 198/99 159/104 O2 Sat by Pulse 97 97 Oximetry 10/28/19 10/28/19 19:04 19:28 Temperature 98.2 F Pulse Rate 70 73 Pulse Rate [ Photoresist Printer ] Respiratory 20 Rate Blood Pressure 154/93 O2 Sat by Pulse 98 97 Oximetry - Reevaluation(s) Reevaluation #1: 10/28/19 19:46 PA supervision: I proceeded [id number] evaluation the patient she did present with complaints of lower abdominal pain which she presented to this emergency Department with yesterday she was sent home with the pain got worse also she started developing retrosternal chest pain and left arm radiation. The initial cardiac workup was negative. She did get some relief from nitroglycerin however. Patient will be admitted I did discuss case with Dr. Balderas. I did not discuss the CT findings of the right renal mass by urology will be consulted. (Zachariah Faye) EKG Findings - EKG Comments: EKG Findings:: Ventricular rate 74, VT interval 156, QTc 441. Normal sinus rhythm, no signs of acute ischemia. Similar to previous EKG in 07/21/2019. <Yessy Bedoya - Last Filed: 10/28/19 18:41> Medical Decision Making - Lab Data Result diagrams: 10/28/19 16:55 10/28/19 16:55 <Yessy Bedoya - Last Filed: 10/28/19 18:41> - Lab Data Result diagrams: 10/28/19 16:55 10/28/19 16:55 <Zachariah Faye - Last Filed: 10/28/19 19:47> - Medical Decision Making Patient 64-year-old female presenting with generalized abdominal pain, chest tightness, left arm tightness 1 day. Patient was seen in the ER yesterday for similar complaint. The patient arrives slightly febrile, hypertensive. Exam reveals generalized abdominal tenderness, increased the lower abdomen. EKG shows no signs of ischemia at this time. Chest x-ray shows no acute process. Lab work reveals no leukocytosis. INR is 2.9. The last 24, lactic acid is 0.7, magnesium is 1.4. Troponin is normal. Lipase is 300. CT the abdomen shows mild to moderate acute distal colitis, no bowel production. No is made of a suspicious mass on the upper pole of the right kidney. The lesion may be concern for neoplasm a renal cell carcinoma. Nonemergent follow-up was recommended. Patient was given fluids, morphine, Reglan for her symptoms. She does report mild improvement in her symptoms. Patient was also given nitro for chest tightness. Case discussed with Dr. Faye. Patient will be admitted for cardiac rule out. Patient accepted by Dr. Balderas. (Yessy Bedoya) - Lab Data Lab Results 10/28/19 10/28/19 10/28/19 Range/Units 16:55 16:55 16:55 WBC 7.6 (3.8-10.6) k/uL RBC 4.63 (3.80-5.40) m/uL Hgb 13.4 (11.4-16.0) gm/dL Hct 39.7 (34.0-46.0) % MCV 85.7 (80.0-100.0) fL MCH 29.0 (25.0-35.0) pg MCHC 33.9 (31.0-37.0) g/dL RDW 14.9 (11.5-15.5) % Plt Count 448 (150-450) k/uL Neutrophils % 58 % Lymphocytes % 34 % Monocytes % 4 % Eosinophils % 1 % Basophils % 0 % Neutrophils # 4.4 (1.3-7.7) k/uL Lymphocytes # 2.6 (1.0-4.8) k/uL Monocytes # 0.3 (0-1.0) k/uL Eosinophils # 0.1 (0-0.7) k/uL Basophils # 0.0 (0-0.2) k/uL PT 28.6 H (9.0-12.0) sec INR 2.9 H (<1.2) APTT 36.1 H (22.0-30.0) sec Sodium 139 (137-145) mmol/L Potassium 3.9 (3.5-5.1) mmol/L Chloride 111 H (98-107) mmol/L Carbon Dioxide 21 L (22-30) mmol/L Anion Gap 7 mmol/L BUN 24 H (7-17) mg/dL Creatinine 0.63 (0.52-1.04) mg/dL Est GFR (CKD-EPI)AfAm >90 (>60 ml/min/1.73 sqM) Est GFR (CKD-EPI)NonAf >90 (>60 ml/min/1.73 sqM) Glucose 103 H (74-99) mg/dL Plasma Lactic Acid Joshua (0.7-2.0) mmol/L Calcium 9.3 (8.4-10.2) mg/dL Magnesium 1.4 L (1.6-2.3) mg/dL Total Bilirubin 0.3 (0.2-1.3) mg/dL AST 19 (14-36) U/L ALT 13 (4-34) U/L Alkaline Phosphatase 46 (38-126) U/L Troponin I (0.000-0.034) ng/mL Total Protein 6.4 (6.3-8.2) g/dL Albumin 3.6 (3.5-5.0) g/dL Lipase 300 (23-300) U/L Urine Color Urine Appearance (Clear) Urine pH (5.0-8.0) Ur Specific [place] (1.001-1.035) Urine Protein (Negative) Urine Glucose (UA) (Negative) Urine Ketones (Negative) Urine Blood (Negative) Urine Nitrite (Negative) Urine Bilirubin (Negative) Urine Urobilinogen (<2.0) mg/dL Ur Leukocyte Esterase (Negative) Urine RBC (0-5) /hpf Urine WBC (0-5) /hpf Ur Squamous Epith Cells (0-4) /hpf Urine Mucus (None) /hpf 10/28/19 10/28/19 10/28/19 Range/Units 16:55 16:55 19:00 WBC (3.8-10.6) k/uL RBC (3.80-5.40) m/uL Hgb (11.4-16.0) gm/dL Hct (34.0-46.0) % MCV (80.0-100.0) fL MCH (25.0-35.0) pg MCHC (31.0-37.0) g/dL RDW (11.5-15.5) % Plt Count (150-450) k/uL Neutrophils % % Lymphocytes % % Monocytes % % Eosinophils % % Basophils % % Neutrophils # (1.3-7.7) k/uL Lymphocytes # (1.0-4.8) k/uL Monocytes # (0-1.0) k/uL Eosinophils # (0-0.7) k/uL Basophils # (0-0.2) k/uL PT (9.0-12.0) sec INR (<1.2) APTT (22.0-30.0) sec Sodium (137-145) mmol/L Potassium (3.5-5.1) mmol/L Chloride (98-107) mmol/L Carbon Dioxide (22-30) mmol/L Anion Gap mmol/L BUN (7-17) mg/dL Creatinine (0.52-1.04) mg/dL Est GFR (CKD-EPI)AfAm (>60 ml/min/1.73 sqM) Est GFR (CKD-EPI)NonAf (>60 ml/min/1.73 sqM) Glucose (74-99) mg/dL Plasma Lactic Acid Joshua 0.7 (0.7-2.0) mmol/L Calcium (8.4-10.2) mg/dL Magnesium (1.6-2.3) mg/dL Total Bilirubin (0.2-1.3) mg/dL AST (14-36) U/L ALT (4-34) U/L Alkaline Phosphatase (38-126) U/L Troponin I <0.012 (0.000-0.034) ng/mL Total Protein (6.3-8.2) g/dL Albumin (3.5-5.0) g/dL Lipase (23-300) U/L Urine Color Yellow Urine Appearance Clear (Clear) Urine pH 6.0 (5.0-8.0) Ur Specific [place] 1.030 (1.001-1.035) Urine Protein Negative (Negative) Urine Glucose (UA) Negative (Negative) Urine Ketones Negative (Negative) Urine Blood Negative (Negative) Urine Nitrite Negative (Negative) Urine Bilirubin Negative (Negative) Urine Urobilinogen <2.0 (<2.0) mg/dL Ur Leukocyte Esterase Moderate H (Negative) Urine RBC 4 (0-5) /hpf Urine WBC 59 H (0-5) /hpf Ur Squamous Epith Cells <1 (0-4) /hpf Urine Mucus Rare H (None) /hpf Disposition Is patient prescribed a controlled substance at d/c from ED?: No Decision Date: 10/28/19 Decision Time: 18:45 <Yessy Bedoya - Last Filed: 10/28/19 18:41> <Zachariah Faye - Last Filed: 10/28/19 19:47> Clinical Impression: Chest pain, Dehydration, Abdominal pain, Colitis, Right kidney mass Disposition: ADMITTED IP TO THIS HOSP Condition: Good Referrals: Arvin Aburto MD [Primary Care Provider] - 1-2 days
--- NOTE | 2019-10-28 18:04 | XR ---
EXAMINATION TYPE: XR chest 2V DATE OF EXAM: 10/28/2019 COMPARISON: Chest x-ray July 21, 2019. HISTORY: Chest tightness and pain. TECHNIQUE: Frontal and lateral views of the chest are obtained. FINDINGS: There is no focal air space opacity, pleural effusion, or pneumothorax seen. The cardiac silhouette size remains enlarged. Fusion plate in the cervical spine is partially imaged on current s tudy. Mild multilevel spurring and disc space narrowing in the thoracic spine. Overlying EKG leads ar e redemonstrated. IMPRESSION: Cardiomegaly without acute pulmonary process. No significant change from prior.
--- NOTE | 2019-10-28 18:22 | CT ---
EXAMINATION TYPE: CT abdomen pelvis w con DATE OF EXAM: 10/28/2019 HISTORY: Left sided abdominal, chest and arm pain. CT DLP: 1574.6mGycm Automated Exposure Control for Dose Reduction was Utilized. CONTRAST: CT scan of the abdomen and pelvis is performed with IV Contrast, patient injected with 100 mL of Isov ue 300. COMPARISON: CT abdomen and pelvis August 30, 2019. FINDINGS: LUNG BASES: Mild cardiomegaly redemonstrated. Calcification at level of mitral valve incidentally not ed. LIVER/GB: Cholecystectomy clips are redemonstrated. PANCREAS: No significant abnormality is seen. SPLEEN: No significant abnormality is seen. ADRENALS: Slight asymmetric thickening to left adrenal gland favoring benign lipid rich hyperplasia r edemonstrated. KIDNEYS: Symmetric cortical medullary uptake and excretion in both kidneys with asymmetric diminished size and cortical thinning of the right kidney redemonstrated. There is 13 mm calculus lower pole of the right kidney coronal image 57. There is simple appearing 1.9 cm thin-walled cyst upper pole leve l medially right kidney. Just inferior medial to this there is ball enhancing exophytic 1.2 cm mass w ith washout suspicious for focal renal cell carcinoma axial image 33. Few scattered pelvic phlebolith s. There is some cortical thinning lower pole of the left kidney. There is persistent 2 mm calculus l ower Pole level coronal image 55. BOWEL: Redemonstration of mildly distended distal esophagus with air-fluid level. Suboptimal evaluati on bowel without enteric contrast. Mild to moderate prominence of gastric folds particularly in the f undus, correlate for gastritis. No suspicious small or large bowel dilatation. There is mild to moder ate wall thickening in the left and redundant sigmoid colon. UTERUS/ADNEXA: Uterus is surgically absent or atrophic in appearance, latter is favored sagittal imag e 81. LYMPH NODES: No greater than 1cm abdominal or pelvic lymph nodes are appreciated. OSSEOUS STRUCTURES: Slight scoliotic curvature on coronal images with straightening on sagittal image s. Multilevel spurring and disc space narrowing in the visualized mid to lower thoracic spine. Facet arthropathy lower lumbar levels. OTHER: Extremely small caliber infrarenal abdominal aorta with moderate to severe plaque. Diameter ju st over 1.0 cm in size. Significant stenosis possible complete occlusion at origin of right renal art olivia coronal image 52 likely counts for the asymmetric atrophy. Diminutive size to the common along wi th external iliac arteries and femoral arteries bilaterally. Advanced muscular atrophy bilateral thig h region. Significant atrophy of the paraspinal muscles. IMPRESSION: 1. Perhaps mild to moderate uncomplicated acute distal colitis, correlate clinically. No bowel obstru ction. Possible mild to moderate gastritis, correlate clinically. 2. Asymmetric atrophy to right kidney presumed related to right renal artery occlusion. Bilateral nep hrolithiasis redemonstrated. Note is made of suspicious exophytic 1.4 cm mass worrisome for focal danyel plasm or renal cell carcinoma medially upper pole of the right kidney. The lesion may be amenable to cryotherapy or microwave ablation. Nonemergent interventional follow-up or surgical consultation advi sed. 3. Small caliber aortoiliac system with significant lower extremity muscular atrophy. Correlate clini christina.
[2019-10-28] MEDS ORDERED: NITROGLYCERIN SL TABS 0.4 MG TAB SUBLINGUAL STA (18:40)
[2019-10-28] MEDS ORDERED: NITROGLYCERIN SL TABS 0.4 MG TAB SUBLINGUAL PRN (18:48)
[2019-10-28] MEDS ORDERED: fentaNYL (PF) 50 MCG/ML 2 ML AMP IV STA (19:16)
[2019-10-28 19:20] LABS: Appearance,Urine Clear (Clear); Bilirubin,Urine Negative (Negative); Blood,Urine Negative (Negative); Color,Urine Yellow; Glucose,Urine (UA) Negative (Negative); Ketones,Urine Negative (Negative); Leukocyte Esterase,Urine Moderate (Negative); Mucus,Urine Rare /hpf; Nitrite,Urine Negative (Negative); Protein,Urine Negative (Negative); RBC,Urine 4 /hpf (0-5); Squamous Epithelial Cell,Urine <1 /hpf (0-4); Urobilinogen,Urine <2.0 mg/dL (<2.0); WBC,Urine 59 /hpf (0-5)
[2019-10-28] MEDS ORDERED: metroNIDAZOLE-NS PMX 500 MG in SALINE 1 100ML.BAG IVPB STA (19:48)
[2019-10-28] MEDS: VALSARTAN 160 MG TAB PO SCH (22:00)
[2019-10-29] MEDS: ATORVASTATIN 20 MG TAB PO SCH ×2 (00:15→20:48)
[2019-10-29] MEDS: MORPHINE SULFATE ER 30 MG TABLET PO PRN (00:15)
[2019-10-29] MEDS: cloNIDine HCL 0.1 MG TAB PO SCH ×4 (00:15→21:37)
[2019-10-29] MEDS: ALPRAZolam 0.5 MG TAB PO SCH ×3 (00:15→20:49)
[2019-10-29] MEDS: PIPERACILLIN-TAZOBACTAM 3.375 GM in SODIUM CHLORIDE 0.9% 100 ML IVPB SCH ×4 (00:18→23:34)
[2019-10-29] MEDS: FENOFIBRATE 160 MG TAB PO SCH ×2 (00:36→20:49)
[2019-10-29] MEDS: HYDROcodone/APAP 10-325MG 1 EACH TAB PO SCH ×2 (00:36→08:13)
[2019-10-29] MEDS: ONDANSETRON 4 MG TAB PO PRN ×2 (01:44→08:13)
[2019-10-29 05:10] LABS: Cholesterol 139 mg/dL (<200); HDL Cholesterol 24 mg/dL (40-60); LDL Cholesterol,Calculated 86 mg/dL (0-99); Triglycerides 146 mg/dL (<150)
[2019-10-29] MEDS ORDERED: MORPHINE SULFATE 2 MG/ML SYRINGE IVP STA (06:03)
[2019-10-29] MEDS: metroNIDAZOLE-NS PMX 500 MG in SALINE 1 100ML.BAG IVPB SCH ×3 (06:25→21:37)
[2019-10-29] MEDS: PANTOPRAZOLE 40 MG TABLET PO SCH (07:08)
[2019-10-29] MEDS: DOCUSATE 100 MG CAP PO SCH ×2 (08:13→20:49)
[2019-10-29] MEDS: VALSARTAN 160 MG TAB PO SCH (08:14)
[2019-10-29] MEDS ORDERED: ASPIRIN 325 MG TAB PO SCH (09:00)
[2019-10-29] MEDS: POLYETHYLENE GLYCOL 3350 17 GM POWD.PACK PO SCH ×2 (11:01→20:49)
--- NOTE | 2019-10-29 12:23 | P.HPIM ---
History of Present Illness H&P Date: 10/29/19 Chief Complaint: chest pain/dehydration/colitis This is a 64-year-old female one of Dr. Aburto with a previous medical history significant for mild to moderate CAD involving LAD, RCA and left circumflex with left heart catheter physician with done in July 2019, hypertension and hypertensive cardiovascular disease, hyperlipidemia, participate or for ablation, bilateral renal stones with recurrent UTI, currently under treatment for urinary tract infection with Macrobid, patient was brought to the emergency department at [facility] yesterday with in creased lower abdominal pain associated with chest tightness Ramos in the left arm patient was seen in the emergency department 24 hours prior to that with lower abdominal pain and she was sent home not a lot of workup was done at that time, upon presentation to the emergency department yesterday she underwent computed tomography scan of the abdomen and pelvis that showed noncompensated distal colitis with the renal atrophy and possible right renal mass status of possible right renal cancer with renal atrophy, but because of her presentation she was admitted to the hospital she was started on IV antibiotic, she will be seen in consultation by cardiology, gastroenterology, as well as urology for evaluation of the renal mass. Review of Systems Constitutional: Reports weakness, Denies chills, Denies fever Eyes: denies blurred vision, denies bulging eye, denies decreased vision Ears: deny: decreased hearing Ears, nose, mouth and throat: Denies dysphagia, Denies neck lump, Denies sore throat Cardiovascular: Reports chest pain, Reports decreased exercise tolerance, Reports dyspnea on exertion, Reports shortness of breath, Denies rapid heart beat, Denies syncope Respiratory: Denies congestion, Denies cough with sputum, Denies home oxygen, Denies respiratory infections, Denies snoring, Denies wheezing Gastrointestinal: Reports abdominal pain, Reports loss of appetite, Reports nausea, Reports vomiting, Denies bloating, Denies change in bowel habits, Denies constipation, Denies heartburn, Denies hematemesis, Denies indigestion, Denies melena Genitourinary: Reports dysuria, Reports urinary frequency Musculoskeletal: Reports atrophy (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 [place] defects.) Musculoskeletal: bilateral: as per HPI, absent: elbow pain, elbow stiffness, elbow swelling, hand pain, hand stiffness, hand swelling, hip pain, hip stiffness, hip swelling, shoulder pain, shoulder stiffness, shoulder swelling, wrist pain, wrist stiffness, wrist swelling Integumentary: Denies pruritus, Denies rash Neurological: Reports gait dysfunction, Denies numbness, Denies weakness Psychiatric: Reports anxiety Endocrine: Denies fatigue, Denies weight change Past Medical History Past Medical History: Atrial Fibrillation, Coronary Artery Disease (CAD), GERD/Reflux, Hyperlipidemia, Hypertension, Osteoarthritis (OA) Additional Past Medical History / Comment(s): hx urinary retention,right Nephrolithiasis,recurrent UTI,double amputation lower extremities, aka. 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 Past Anesthesia/Blood Transfusion Reactions: No Reported Reaction Additional Past Anesthesia/Blood Transfusion Reaction / Comment(s): Pt received blood in 1978-no reaction reported. Past Psychological History: Anxiety Additional Psychological History / Comment(s): She is independent. She in a bilateral AKA and gets around in a power wheelchair. She has a hospital bed. She no longer drives but takes the bus. Smoking Status: Current every day smoker Past Alcohol Use History: None Reported Additional Past Alcohol Use History / Comment(s): Pt states she started smoking at age 18 yrs and the amount she smokes varies.Smoke a pack in two days Past Drug Use History: None Reported - Past Family History Father Family Medical History: Cancer, Myocardial Infarction (NV) Additional Family Medical History / Comment(s): Father had lung cancer-went into remission. He of a massive NV in his 60's Mother Family Medical History: Cancer Additional Family Medical History / Comment(s): Mother of lung cancer at age 54 yrs. Medications and Allergies Home Medications Medication Instructions Recorded Confirmed Type Fenofibrate 160 mg PO HS 11/14/10/28/19 History Atorvastatin Calcium [Lipitor] 40 mg PO HS 06/21/18 10/28/19 History cloNIDine HCL [Catapres] 0.1 mg PO TID 06/21/18 10/28/19 History ALPRAZolam [Xanax] 0.5 mg PO BID 01/20/19 10/28/19 History Warfarin [Coumadin] 2 mg PO HS 01/20/19 10/28/19 History Nitroglycerin Sl Tabs [Nitrostat] 0.4 mg SUBLINGUAL Q5M PRN 03/16/19 10/28/19 History Morphine Sulfate ER [Ms Contin] 30 mg PO Q12HR PRN #12 tab 05/31/19 10/28/19 Rx Ondansetron HCl [Zofran] 8 mg PO TID PRN #12 tab 05/31/19 10/28/19 Rx Docusate [Colace] 100 mg PO BID 07/03/19 10/28/19 History Flecainide Acetate 100 mg PO Q12H 07/03/19 07/21/19 History Omeprazole 1 cap PO AC-BRKFST 07/05/19 10/28/19 History Albuterol Nebulized [Ventolin 2.5 mg INHALATION RT-Q6H PRN 07/21/19 07/21/19 History Nebulized] HYDROcodone/APAP 10-325MG [[place] 1 tab PO Q6HR PRN 07/21/19 10/28/19 History 10-325] Valsartan [Diovan] 160 mg PO DAILY 07/21/19 10/28/19 History Hydrochlorothiazide [Hydrodiuril] 25 mg PO DAILY #30 tab 07/22/19 Rx Aspirin 81 mg PO DAILY 10/28/19 10/28/19 History Levofloxacin 500 mg PO DAILY 10/28/19 10/28/19 History Warfarin [Coumadin] 1 mg PO DAILY 10/28/19 10/28/19 History Allergies Allergy/AdvReac Type Severity Reaction Status Date / Time sulfamethoxazole Allergy Itching Verified 10/28/19 16:41 [From Septra] trimethoprim [From Septra] Allergy Itching Verified 10/28/19 16:41 levofloxacin [From Levaquin] AdvReac Muscle Pain Verified 10/28/19 16:41 Physical Exam Vitals: Vital Signs Temp Pulse Pulse Resp BP BP Pulse Ox 10/29/19 08:00 98.4 F 67 18 189/75 98 10/29/19 04:00 98.1 F 61 20 165/86 97 10/29/19 00:00 98.1 F 71 20 168/94 98 10/28/19 20:00 97.9 F 70 20 165/92 98 10/28/19 19:28 98.2 F 73 97 10/28/19 19:04 70 20 154/93 98 10/28/19 18:47 73 18 159/104 97 10/28/19 16:45 82 10/28/19 16:35 100.7 F H 80 18 198/99 97 Intake and Output 10/28/19 10/29/19 10/29/19 22:59 06:59 14:59 Other: Voiding Method Bedpan # Voids 1 Weight 76.204 kg 76 kg HEENT: Head is atraumatic, normocephalic, pupils were equal round reactive to light and accommodation, extraocular muscle movement were intact. Neck: Supple, no JVP. Chest: Decreased breath sounds at the bases, few rhonchi, no expiratory wheezes, no chest with tenderness, no intercostal retractions. Heart: First heart sound is depressed, second heart sounds normal, there is no gallop. Abdomen: Soft, mild tenderness to the left lower quadrant, no rebound or guarding positive bowel sounds. Extremities: Bilateral above-knee amputation . Neurologic examination: Patient is awake alert and oriented 3, cranial nerves III-12 appear grossly intact. Results CBC & Chem 7: 10/28/19 16:55 10/28/19 16:55 Labs: Abnormal Lab Results - Last 24 Hours (Table) 10/28/19 10/28/19 10/28/19 Range/Units 16:55 16:55 19:00 PT 28.6 H (9.0-12.0) sec INR 2.9 H (<1.2) APTT 36.1 H (22.0-30.0) sec Chloride 111 H (98-107) mmol/L Carbon Dioxide 21 L (22-30) mmol/L BUN 24 H (7-17) mg/dL Glucose 103 H (74-99) mg/dL Magnesium 1.4 L (1.6-2.3) mg/dL HDL Cholesterol (40-60) mg/dL Ur Leukocyte Esterase Moderate H (Negative) Urine WBC 59 H (0-5) /hpf Urine Mucus Rare H (None) /hpf 10/29/19 Range/Units 04:36 PT (9.0-12.0) sec INR (<1.2) APTT (22.0-30.0) sec Chloride (98-107) mmol/L Carbon Dioxide (22-30) mmol/L BUN (7-17) mg/dL Glucose (74-99) mg/dL Magnesium (1.6-2.3) mg/dL HDL Cholesterol 24 L (40-60) mg/dL Ur Leukocyte Esterase (Negative) Urine WBC (0-5) /hpf Urine Mucus (None) /hpf Thrombosis Risk Factor Assmnt - DVT/VTE Prophylaxis DVT/VTE Prophylaxis: Pharmacologic Prophylaxis ordered - Choose All That Apply Any of the Below Risk Factors Present?: Yes Each Factor Represents 1 point: Obesity (BMI >25) Other Risk Factors: Yes Each Risk Factor Represents 2 Points: Age 61-74 years Other congenital or acquired thrombophilia - If yes, enter type in comment: No Thrombosis Risk Factor Assessment Total Risk Factor Score: 3 Thrombosis Risk Factor Assessment Level: Moderate Risk Assessment and Plan Assessment: Assessment and plan: 1. Chest pain the patient with the mild to moderate CAD disease with a recent heart catheterization back in July 2019. Continue patient on aspirin 81 mg once every day, continue patient on Lipitor 40 mg orally once every day, cardiac enzymes will be done, cardiology consultation. 2. Left sigmoid colitis. Continue patient on the clear liquid diet, continue IV antibiotic in the form of Zosyn 3.375 g IV piggyback every 8 hours, metronidazole 500 mg IV piggyback every 8 hours, monitor the patient clinical symptoms, continue current pain management, GI consultation. 3. Right renal mass. Urology consult for possible renal cell cancer. 4. Recurrent urinary tract infection. Discontinue Macrobid as the patient is already on Zosyn. 5. Bilateral renal stones. Stable at this time without any evidence of any obstruction per 6. Hypertension and hypertensive cardio vascular disease. Continue patient on Diovan 160 mg orally once every day 7. Hyperlipidemia. Continue patient on Lipitor 40 mg orally once every day. 8. Paroxysmal atrial fibrillation. Continue flecainide 100 mg orally twice every day along with Coumadin monitor the patient PT and INR last INR 2.9. 9. GERD. Continue Pepcid 40 mg orally twice every day. 10. Bilateral above-knee amputation. 11. DVT progresses. Continue Coumadin keep her INR between 2-3. 12. GI prophylaxis. Continue Pepcid. 13. Admit to inpatient. Estimate a length of stay 2 midnights. 14. Full code.
[2019-10-29] MEDS: HYDROmorphone 1 MG/ML 1 ML SYRINGE IVP PRN ×3 (13:02→21:35)
--- NOTE | 2019-10-29 14:31 | CONS ---
CONSULTATION CHIEF COMPLAINT: Chest pain. Karma is a 64-year-old lady with history of coronary artery disease status post angioplasty, paroxysmal atrial fibrillation, hypertension, and dyslipidemia who presented to the hospital complaining of chest pain. Her chest discomfort is sharp, atypical, precordial, and related to exertion and associated with diaphoresis. She has history of paroxysmal atrial fibrillation, is currently on Coumadin, and INR is therapeutic. The patient also has abdominal discomfort. EKG shows sinus bradycardia with left axis deviation. The patient had a cardiac catheterization in July that showed mild to moderate diffuse disease. The patient did not have any angioplasty. MEDICATIONS: Medications at home included catapres, Coumadin, Zofran, omeprazole, MS-Contin, flecainide, fenofibrate, Lipitor, and aspirin. ALLERGIES: SULFA AND LEVAQUIN. FAMILY HISTORY: Negative for premature coronary artery disease. SOCIAL HISTORY: Negative for smoking, EtOH or drug abuse. REVIEW OF SYSTEMS: HEENT: Unremarkable. CARDIAC: As described above. RESPIRATORY: Negative. GI: Negative. GENITOURINARY: Negative. ALLERGY/IMMUNOLOGY: Negative. SKIN: Negative. MUSCULOSKELETAL: Significant for arthritis. PSYCHOSOCIAL: Negative. DERM: Negative. CONSTITUTIONAL: Negative. ONCOLOGICAL: Negative. BUTTON RECLAIMER: Negative. The rest of the system review is not relevant. PHYSICAL EXAMINATION: On exam, patient is comfortable at rest. Blood pressure is elevated at 160/72, respiratory rate 18. Chest exam reveals good air entry bilaterally. Heart exam reveals first and second heart sounds. No gallop. ABDOMEN: Soft. Exam of the extremities did not reveal any edema. Peripheral pulses are felt. ASSESSMENT: 1. Precordial chest pain, sharp, atypical, probably noncardiac. Did not have significant obstructive CAD on a cardiac cath in July. 2. Uncontrolled hypertension. 3. Paroxysmal atrial fibrillation. PLAN: Resume her blood pressure medications. Continue Coumadin. Hopefully, home tomorrow. MMODL / IJN: [id number] /
[2019-10-29] MEDS: ONDANSETRON 4 MG/2 ML VIAL IVP PRN (18:23)
--- NOTE | 2019-10-29 18:29 | CONS ---
CONSULTATION DATE OF SERVICE: 10/29/2019 REQUESTING PHYSICIAN: Dr. Balderas. REASON FOR CONSULTATION: Lower abdominal pain/colitis. HISTORY OF PRESENT ILLNESS: The patient is a 64-year-old, pleasant, white female with history of coronary artery disease, hypertension, hyperlipidemia, bilateral lower extremity amputations, longstanding history of diabetes mellitus who was admitted to the hospital because of severe lower abdominal pain that is going on for the last several months duration. She states that the pain got much worse. She came to the emergency room two days ago and she was discharged home. She came back again yesterday complaining of the same symptoms and now she was having some chest pain radiating to her left arm. She did have a CT of the abdomen and pelvis done in the emergency room that showed mild thickening of the distal colon suspicious for acute colitis and a possible right renal mass. She was started on IV antibiotics and admitted to the hospital for further evaluation. The patient says that she has been having severe constipation for the last several years duration. In fact, the constipation has been progressively getting worse. She has been on narcotics and takes [id number] laxatives as needed for the constipation. She denies any rectal bleeding. No melena. Her last bowel movement was last night. Patient took a laxative at home. She never had a colonoscopy in the past. PAST MEDICAL HISTORY: Significant for atrial fibrillation, coronary artery disease, congestive heart failure, hypertension, hyperlipidemia, gastroesophageal reflux disease, history of UTI, bilateral lower extremity amputations. PAST SURGICAL HISTORY: Cholecystectomy, , hysterectomy. MEDICATIONS: Medications at home include fenofibrate, Lipitor, Catapres, Xanax, Coumadin, Nitrostat, MS-Contin, Zofran, colace, omeprazole, ventolin, [place], Diovan, hydrodiuril, aspirin, Levaquin. ALLERGIES: BACTRIM AND LEVAQUIN. SOCIAL HISTORY: Chronic smoker but no alcohol use. FAMILY HISTORY: Mother has coronary artery disease and lung cancer. Father is status post CA. REVIEW OF SYSTEMS: CARDIOPULMONARY: She does complain of chest pain but no shortness of breath. GENITOURINARY: No dysuria or hematuria. MUSCULOSKELETAL: Chronic back pain. NEUROLOGY: Unremarkable. PSYCHIATRIC: Unremarkable. ENT/VISION: Unremarkable. CONSTITUTIONAL: No recent weight loss. No fever, chills, or night sweats. HEMATOLOGY: Unremarkable. PHYSICAL EXAMINATION: She appears comfortable. No apparent distress. VITAL SIGNS: Stable. Blood pressure is 134/93, pulse rate 70, temperature 98.4. HEENT: Unremarkable. Conjunctivae pink. Sclerae anicteric. Oral cavity: No lesions. NECK: No JVD or lymph node enlargement. CHEST: Clear to auscultation. HEART: Regular rate and rhythm. ABDOMEN: Soft. There was mild tenderness in the lower abdominal area, more prominent in the suprapubic area, left lower quadrant area, and some in the right lower quadrant area. The rest of the abdomen was benign. Bowel sounds are positive. EXTREMITIES: Bilateral [id number] amputations. NEUROLOGIC: Alert and oriented x3. No focal deficits. LABS: Labs done at the time of admission to the hospital, WBC 7.6, hemoglobin 13.4, platelets normal. BUN 24, creatinine 0.63. Basic metabolic panel is within normal limits. PT 28, INR 2.6. AST, ALT, T-bili, and alkaline phosphatase are within normal limits. IMPRESSION: 1. Lower abdominal pain associated with history of severe constipation. She has chronic abdominal pain for the last several months duration, which has been progressively getting worse. She came to the emergency room and a CT scan done yesterday showed thickening of the left colon suspicious for acute colitis. Presently on IV antibiotics with Zosyn and Flagyl. No prior history of colonoscopy in the past. 2. Chest pain and history of coronary artery disease. Cardiology has been consulted. 3. Bilateral above-knee amputations. 4. History of recurrent urinary tract infections in the past. 5. Abnormal CT scan showing possible renal mass. 6. History of atrial fibrillation, on Coumadin. RECOMMENDATIONS: 1. Continue with broad-spectrum antibiotics. 2. We will start her on MiraLAX one scoop twice daily to improve her constipation. 3. Start her on clear liquid diet and advance as tolerated. 4. If her symptoms do not improve, we will consider colonoscopy during this hospitalization. 5. The plan was discussed with the patient. She is agreeable to it. Thank you for this consultation. MMMAXWELLL / SEAN: [id number] /
[2019-10-29] MEDS: WARFARIN 1 MG TAB PO SCH (20:49)
[2019-10-30] MEDS: HYDROmorphone 1 MG/ML 1 ML SYRINGE IVP PRN ×6 (01:10→21:02)
[2019-10-30] MEDS: POLYETHYLENE GLYCOL 3350 17 GM POWD.PACK PO SCH ×3 (02:27→20:06)
[2019-10-30] MEDS: ONDANSETRON 4 MG/2 ML VIAL IVP PRN ×2 (03:39→13:16)
[2019-10-30] MEDS: metroNIDAZOLE-NS PMX 500 MG in SALINE 1 100ML.BAG IVPB SCH ×3 (05:20→22:11)
[2019-10-30 06:29] LABS: Basophils # (A) 0.1 k/uL (0-0.2); Basophils % (A) 1 %; Eosinophils # (A) 0.2 k/uL (0-0.7); Eosinophils % (A) 3 %; HCT 41.4 % (34.0-46.0); HGB 13.2 gm/dL (11.4-16.0); Lymphocytes # (A) 2.9 k/uL (1.0-4.8); Lymphocytes % (A) 40 %; MCH 28.4 pg (25.0-35.0); MCHC 31.9 g/dL (31.0-37.0); MCV 89.1 fL (80.0-100.0); Mean Platelet Volume 7.7; Monocytes # (A) 0.3 k/uL (0-1.0); Monocytes % (A) 5 %; Neutrophils # (A) 3.5 k/uL (1.3-7.7); Neutrophils % (A) 49 %; Platelet Count 354 k/uL (150-450); RBC 4.65 m/uL (3.80-5.40); RDW 14.8 % (11.5-15.5); WBC 7.1 k/uL (3.8-10.6)
[2019-10-30 06:32] LABS: INR 2.2 (<1.2); Prothrombin Time 21.1 sec (9.0-12.0)
[2019-10-30] MEDS: PIPERACILLIN-TAZOBACTAM 3.375 GM in SODIUM CHLORIDE 0.9% 100 ML IVPB SCH ×3 (06:36→23:46)
[2019-10-30 06:54] LABS: ALT 12 U/L (4-34); AST 26 U/L (14-36); African American GFR (CKD) >90 (>60 ml/min/1.73 sqM); Alkaline Phosphatase 33 U/L (38-126); Anion Gap 7 mmol/L; Blood Urea Nitrogen 16 mg/dL (7-17); Calcium 8.3 mg/dL (8.4-10.2); Carbon Dioxide 21 mmol/L (22-30); Chloride 111 mmol/L (98-107); Glucose 85 mg/dL (74-99); Non-African American GFR(CKD) >90 (>60 ml/min/1.73 sqM); Potassium 4.2 mmol/L (3.5-5.1); Sodium 139 mmol/L (137-145); Total Bilirubin 0.5 mg/dL (0.2-1.3); Total Protein 5.7 g/dL (6.3-8.2)
[2019-10-30] MEDS: ALPRAZolam 0.5 MG TAB PO SCH ×2 (08:13→20:05)
[2019-10-30] MEDS: cloNIDine HCL 0.1 MG TAB PO SCH ×3 (08:13→22:11)
[2019-10-30] MEDS: PANTOPRAZOLE 40 MG TABLET PO SCH (08:13)
[2019-10-30] MEDS: VALSARTAN 160 MG TAB PO SCH (08:13)
[2019-10-30] MEDS: DOCUSATE 100 MG CAP PO SCH ×2 (08:14→20:05)
[2019-10-30] MEDS: ASPIRIN 81 MG PO SCH (08:15)
--- NOTE | 2019-10-30 09:03 | ECHOF ---
Referral Reason:chest pain MEASUREMENTS -------- HEIGHT: 180.3 cm WEIGHT: 75.7 kg BP: RVIDd: 2.8 cm (< 3.3) IVSd: 1.4 cm (0.6 - 1.1) LVIDd: 3.2 cm (3.9 - 5.3) LVPWd: 1.6 cm (0.6 - 1.1) IVSs: 2.0 cm LVIDs: 2.1 cm LVPWs: 2.2 cm Ao Diam: 2.5 cm (2.0 - 3.7) LA Diam: 4.8 cm (2.7 - 3.8) MV EXCURSION: 8.677 mm (> 18.000) MV EF SLOPE: 38 mm/s (70 - 150) EPSS: 0.5 cm MV E Gustavo: 0.83 m/s MV DecT: 354 ms MV A Gustavo: 1.31 m/s MV E/A Ratio: 0.64 RAP: 5.00 mmHg RVSP: 9.94 mmHg FINDINGS -------- Sinus rhythm. This was a technically difficult study with suboptimal views. The left ventricular size is normal. There is moderate concentric left ventricular hypertrophy. O verall left ventricular systolic function is normal with, an EF between 55 - 60 %. The right ventricle is normal in size. The left atrial size is normal. The right atrial size is normal. Lumason used The aortic valve is trileaflet, and appears structurally normal. No aortic stenosis or regurgitation. The mitral valve is normal. There is trace mitral regurgitation. The tricuspid valve appears structurally normal. Trace tricuspid regurgitation present. Right chantal tricular systolic pressure is normal at < 35 mmHg. The pulmonic valve was not well visualized. There is no pulmonic regurgitation present. The aortic root size is normal. Normal inferior vena cava with normal inspiratory collapse consistent with estimated right atrial pre ssure of 5 mmHg. There is a moderate, generalized pericardial effusion present. CONCLUSIONS -------- 1. Sinus rhythm. 2. This was a technically difficult study with suboptimal views. 3. The left ventricular size is normal. 4. There is moderate concentric left ventricular hypertrophy. 5. Overall left ventricular systolic function is normal with, an EF between 55 - 60 %. 6. The left atrial size is normal. 7. Lumason used 8. The aortic valve is trileaflet, and appears structurally normal. No aortic stenosis or regurgitati on. 9. The mitral valve is normal. 10. There is trace mitral regurgitation. 11. Trace tricuspid regurgitation present. 12. Right ventricular systolic pressure is normal at < 35 mmHg. 13. There is no pulmonic regurgitation present. 14. Normal inferior vena cava with normal inspiratory collapse consistent with estimated right atrial pressure of 5 mmHg. 15. There is a moderate, generalized pericardial effusion present. ENTEROSTOMAL NURSE: Delma Doss RDCS
--- NOTE | 2019-10-30 10:24 | P.PN ---
Subjective this is a pleasant 64-year-old female past medical history significant for coronary artery disease, paroxysmal atrial fibrillation, hyper tension and dyslipidemia. She follows in the office with Dr. Prescott. She is seen and examined laying flat resting comfortably in bed in no acute distress. She continues to complain of significant lower abdominal discomfort associated with an episode of diarrhea this morning. She denies chest pain, shortness of breath, dizziness, palpitations, nausea. Blood pressure 141/73 heart rate 57 afebrile and maintaining oxygen saturation on room air. Laboratory data reviewed, CBC unremarkable, INR 2.2, sodium 139, potassium 4.2, creatinine 0.56. Currently maintained on aspirin 325 mg daily, atorvastatin 40 mg daily, clonidine 0.1 mg TID, valsartan 160 mg daily and coumadin. Echocardiogram obtai gabo on this admission reveals preserved LV systolic function with ejection fraction 55-60% with a moderate generalized pericardial effusion. Cardiac catheterization performed in July 2019 revealed a lesion approximately 50% of the OM branch and a 30-40% lesion of the RCA. GENERAL: Well-appearing, well-nourished and in no acute distress. NECK: Supple without JVD or thyromegaly. LUNGS: Breath sounds clear to auscultation bilaterally. Respiration equal and unlabored. No wheezes, rales or rhonchi. HEART: Regular rate and rhythm without murmurs, rubs or gallops. S1 and S2 heard. EXTREMITIES: Normal range of motion, no edema. No clubbing or cyanosis. Radial pulses felt. Bilateral lower extremity AKA. ASSESSMENT Chest pain, atypical. An acute coronary event has been ruled out. Abdominal pain with evidence of colitis CT of the abdomen. Paroxysmal atrial fibrillation on long-term anticoagulation History of coronary artery disease Hypertension Dyslipidemia Chronic nicotine dependence PLAN Decrease aspirin to 81 mg daily. Stable from a cardiac perspective. Ongoing medical management and evaluation of abdominal pain. Follow-up in the office with Dr. Redmond in 2 weeks. Nurse Practitioner note has been reviewed, I agree with a documented findings and plan of care. Patient was seen and examined. Objective - Vital Signs Vital signs: Vital Signs Temp 98.4 F 10/30/19 07:01 Pulse 48 L 10/30/19 08:00 Resp 18 10/30/19 08:00 BP 141/73 10/30/19 07:01 Pulse Ox 100 10/30/19 07:01 Intake & Output 10/29/19 10/30/19 10/30/19 18:59 06:59 18:59 Intake Total 520 480 Output Total 601 1 Balance 520 -601 479 Weight 76.1 kg Intake: Oral 520 480 Output: Urine 600 Stool 1 1 Other: Voiding Method Bedpan Bedpan Bedpan Diaper Diaper Diaper # Voids 1 1 1 # Bowel Movements 1 - Labs CBC & Chem 7: 10/30/19 06:16 10/30/19 06:12 Labs: Abnormal Lab Results - Last 24 Hours (Table) 10/30/19 10/30/19 Range/Units 06:12 06:16 PT 21.1 H (9.0-12.0) sec INR 2.2 H (<1.2) Chloride 111 H (98-107) mmol/L Carbon Dioxide 21 L (22-30) mmol/L Calcium 8.3 L (8.4-10.2) mg/dL Alkaline Phosphatase 33 L (38-126) U/L Total Protein 5.7 L (6.3-8.2) g/dL Albumin 3.0 L (3.5-5.0) g/dL Microbiology - Last 24 Hours (Table) 10/28/19 16:55 Blood Culture - Preliminary Blood No Growth after 24 hours
--- NOTE | 2019-10-30 11:00 | P.GSCN ---
History of Present Illness Consult date: 10/30/19 Reason for Consult: Right sided renal mass History of present illness: Ms Sotelo is a 64-year-old female with multiple comorbidities she was brought to [facility] yesterday with increased lower abdominal pain associated with chest tightness. Of note she has hx of recurrent stones and chronic UTI. she also has hx of non functioning right kidney. In he ED she underwent a CT abd/pelvis which showed a 1.4 cm right sided exophytic renal mass. She is asymptomatic from her renal mass. Denies any gross hematuria. No family history of RCC Review of Systems - Constitutional Denies fever, Denies weight loss - EENT Ears, nose, mouth and throat: Denies dysphagia - Cardiovascular Reports chest pain - Respiratory Denies cough, Denies 7 - Gastrointestinal Reports abdominal pain - Genitourinary Genitourinary: Denies dysuria, Denies hematuria - Neurological Denies headaches, Denies syncope Past Medical History Past Medical History: Atrial Fibrillation, Coronary Artery Disease (CAD), GERD/Reflux, Hyperlipidemia, Hypertension, Osteoarthritis (OA) Additional Past Medical History / Comment(s): hx urinary retention,right Nephrolithiasis,recurrent UTI,double amputation lower extremities, aka. History of Any Multi-Drug Resistant Organisms: ESBL Year Discovered:: 10/01/19 ESBL E.coli MDRO Source:: Urine Past Surgical History: Section, Cholecystectomy, Hysterectomy, Orthopedic Surgery Additional Past Surgical History / Comment(s): PT HAD BILAT AKA AT AGE 6 DUE TO DEFECT, cervical FUSION, RIGHT ARM HARDWARE, Left nephrostolithotomy- 05/2017, x 3, virginie oophorectomies-d/t cysts, bilateral carpal tunnel release. Past Anesthesia/Blood Transfusion Reactions: No Reported Reaction Additional Past Anesthesia/Blood Transfusion Reaction / Comm: Pt received blood in 1978-no reaction reported. Past Psychological History: Anxiety Additional Psychological History / Comment(s): She is independent. She in a bilateral AKA and gets around in a power wheelchair. She has a hospital bed. She no longer drives but takes the bus. Smoking Status: Current every day smoker Past Alcohol Use History: None Reported Additional Past Alcohol Use History / Comment(s): Pt states she started smoking at age 18 yrs and the amount she smokes varies.Smoke a pack in two days Past Drug Use History: None Reported - Past Family History Father Family Medical History: Cancer, Myocardial Infarction (ND) Additional Family Medical History / Comment(s): Father had lung cancer-went into remission. He of a massive ND in his 60's Mother Family Medical History: Cancer Additional Family Medical History / Comment(s): Mother of lung cancer at age 54 yrs. Medications and Allergies Home Medications Medication Instructions Recorded Confirmed Type Fenofibrate 160 mg PO HS 11/15/15 10/29/19 History cloNIDine HCL [Catapres] 0.1 mg PO TID 06/21/18 10/29/19 History ALPRAZolam [Xanax] 0.5 mg PO BID PRN 01/20/19 10/29/19 History Warfarin [Coumadin] 2 mg PO TUTHSA 01/20/19 10/29/19 History Nitroglycerin Sl Tabs [Nitrostat] 0.4 mg SUBLINGUAL Q5M PRN 03/16/19 10/29/19 History Morphine Sulfate ER [Ms Contin] 30 mg PO Q12HR PRN #12 tab 05/31/19 10/29/19 Rx Ondansetron HCl [Zofran] 8 mg PO TID PRN #12 tab 05/31/19 10/29/19 Rx Docusate [Colace] 100 mg PO BID 07/03/19 10/29/19 History Flecainide Acetate 100 mg PO Q12H 07/03/19 10/29/19 History Omeprazole 1 cap PO AC-BRKFST 07/05/19 10/29/19 History HYDROcodone/APAP 10-325MG [[place] 1 tab PO BID PRN 07/21/19 10/29/19 History 10-325] Aspirin 81 mg PO DAILY 10/28/19 10/29/19 History Levofloxacin 500 mg PO DAILY 10/28/19 10/29/19 History Atorvastatin [Lipitor] 40 mg PO HS 10/29/19 10/29/19 History Warfarin [Coumadin] 1 mg PO SUMOWEFR 10/29/19 10/29/19 History Allergies Allergy/AdvReac Type Severity Reaction Status Date / Time sulfamethoxazole Allergy Itching Verified 10/29/19 10:41 [From Septra] trimethoprim [From Septra] Allergy Itching Verified 10/29/19 10:41 levofloxacin [From Levaquin] AdvReac Muscle Pain Verified 10/29/19 10:41 Surgical - Exam Vital Signs Temp Pulse Resp BP Pulse Ox 100.7 F H 80 18 198/99 97 10/28/19 16:35 10/28/19 16:35 10/28/19 16:35 10/28/19 16:35 10/28/19 16:35 - General well developed, well nourished, no distress - Eyes normal ocular movement, no pale - Respiratory normal expansion, normal respiratory effort - Psychiatric oriented to time, oriented to person, oriented to place Results - Labs 10/30/19 06:16 10/30/19 06:12 Abnormal Lab Results - Last 24 Hours (Table) 10/30/19 10/30/19 Range/Units 06:12 06:16 PT 21.1 H (9.0-12.0) sec INR 2.2 H (<1.2) Chloride 111 H (98-107) mmol/L Carbon Dioxide 21 L (22-30) mmol/L Calcium 8.3 L (8.4-10.2) mg/dL Alkaline Phosphatase 33 L (38-126) U/L Total Protein 5.7 L (6.3-8.2) g/dL Albumin 3.0 L (3.5-5.0) g/dL Microbiology - Last 24 Hours (Table) 10/28/19 16:55 Blood Culture - Preliminary Blood No Growth after 24 hours Diabetes panel 10/30/19 Range/Units 06:12 Sodium 139 (137-145) mmol/L Potassium 4.2 (3.5-5.1) mmol/L Chloride 111 H (98-107) mmol/L Carbon Dioxide 21 L (22-30) mmol/L BUN 16 (7-17) mg/dL Creatinine 0.56 (0.52-1.04) mg/dL Glucose 85 (74-99) mg/dL Calcium 8.3 L (8.4-10.2) mg/dL AST 26 (14-36) U/L ALT 12 (4-34) U/L Alkaline Phosphatase 33 L (38-126) U/L Total Protein 5.7 L (6.3-8.2) g/dL Albumin 3.0 L (3.5-5.0) g/dL Calcium panel 03/30/20 Range/Units 06:12 Calcium 8.3 L (8.4-10.2) mg/dL Albumin 3.0 L (3.5-5.0) g/dL Pituitary panel 10/30/19 Range/Units 06:12 Sodium 139 (137-145) mmol/L Potassium 4.2 (3.5-5.1) mmol/L Chloride 111 H (98-107) mmol/L Carbon Dioxide 21 L (22-30) mmol/L BUN 16 (7-17) mg/dL Creatinine 0.56 (0.52-1.04) mg/dL Glucose 85 (74-99) mg/dL Calcium 8.3 L (8.4-10.2) mg/dL Adrenal panel 10/30/19 Range/Units 06:12 Sodium 139 (137-145) mmol/L Potassium 4.2 (3.5-5.1) mmol/L Chloride 111 H (98-107) mmol/L Carbon Dioxide 21 L (22-30) mmol/L BUN 16 (7-17) mg/dL Creatinine 0.56 (0.52-1.04) mg/dL Glucose 85 (74-99) mg/dL Calcium 8.3 L (8.4-10.2) mg/dL Total Bilirubin 0.5 (0.2-1.3) mg/dL AST 26 (14-36) U/L ALT 12 (4-34) U/L Alkaline Phosphatase 33 L (38-126) U/L Total Protein 5.7 L (6.3-8.2) g/dL Albumin 3.0 L (3.5-5.0) g/dL Assessment and Plan Assessment: 64 yo female admitted to the hospital with chest pain. She underwent a CT abd/pelvis which showed a 1.5 cm exophytic right sided renal mass. She is asymptomatic from her mass. The kidney is atrophic on the right side Plan: -I reviewed the CT, the renal mass is fairly small in size. Given enhancement on imaging, mass is concerning for RCC. Given small tumor size, metastasis risk is fairly low. Additionally she is high risk surgical candidate given her co morbities. At this time will continue with observation. She can f/u in 3 months, will obtain repeat imaging at that time. If tumor progresses in size will proceed with cryoablation vs surgical excision. if tumor is stable in size will continue with observation.
--- NOTE | 2019-10-30 13:19 | P.PN ---
Subjective Progress Note Date: 10/30/19 This is a 64-year-old female one of Dr. Aburto with a previous medical history significant for mild to moderate CAD involving LAD, RCA and left circumflex with left heart catheter physician with done in July 2019, hypertension and hypertensive cardiovascular disease, hyperlipidemia, particip ate or for ablation, bilateral renal stones with recurrent UTI, currently under treatment for urinary tract infection with Macrobid, patient was brought to the emergency department at [facility] yesterday with increased lower abdominal pain associated with chest tightness Ramos in the left arm patient was seen in the emergency department 24 hours prior to that with lower abdominal pain and she was sent home not a lot of workup was done at that time, upon presentation to the emergency department yesterday she underwent computed tomography scan of the abdomen and pelvis that showed noncompensated distal colitis with the renal atrophy and possible right renal mass status of possible right renal cancer with renal atrophy, but because of her presentation she was admitted to the hospital she was started on IV antibiotic, she will be seen in consultation by cardiology, gastroenterology, as well as urology for evaluation of the renal mass. 10/29: Patient is currently resting in the observation unit. She has been seen by Dr. Brock for abdominal pain with severe constipation and suspicious for acute colitis. Recommendations to continue antibiotics which are in the form of Zosyn and Flagyl. GI started patient on MiraLAX and clear liquid diet to be advanced as tolerated. Patient is requesting that her diet be advanced. We will place her on a full liquid diet for now. Patient is also complaining of insomnia for which melatonin added. Patient also has Xanax 0.5 mg twice daily but she states this does not help. She also states she has tried melatonin at home without improvement. Cardiology has reevaluated and acute coronary syndrome has been ruled out. Aspirin dose decreased 81 mg daily and patient follow-up with Dr. Prescott in 2 weeks. Echocardiogram reveals EF of 55-60%, moderate concentric left ventricular hypertrophy, trace mitral regurgitation, trace tricuspid regurgitation, moderate generalized pericardial effusion. Patient has been seen by Dr. Dela Cruz regarding renal mass with concern for renal cell carcinoma. Recommendations to follow up in the office in 3 months and we will obtain repeat imaging at that time. If tumor progresses in size, plan will be to proceed with cryoablation versus surgical excision. If tumor is stable in size continue observation. Patient has been afebrile, heart rate 57, blood pressure 141/73, pulse ox 100% on room air. CBC is normal, INR 2.2, sodium 139, potassium 4.2, chloride 111, CO2 21, BUN 16, creatinine 0.56. There are function tests normal, calcium 8.3. Troponins have been negative on 3 draws. Triglycerides 146, cholesterol 139, LDL 86, HDL 24. Blood culture no growth after 24 hours. Objective - Vital Signs Vital signs: Vital Signs Temp 98.4 F 10/30/19 07:01 Pulse 48 L 10/30/19 08:00 Resp 18 10/30/19 08:00 BP 141/73 10/30/19 07:01 Pulse Ox 100 10/30/19 07:01 Intake & Output 10/29/19 10/30/19 10/30/19 18:59 06:59 18:59 Intake Total 520 480 Output Total 601 1 Balance 520 -601 479 Weight 76.1 kg Intake: Oral 520 480 Output: Urine 600 Stool 1 1 Other: Voiding Method Bedpan Bedpan Bedpan Diaper Diaper Diaper # Voids 1 1 1 # Bowel Movements 1 - Exam Review of Systems Constitutional: Reports weakness, Denies chills, Denies fever Eyes: denies blurred vision, denies bulging eye, denies decreased vision Ears: deny: decreased hearing Ears, nose, mouth and throat: Denies dysphagia, Denies neck lump, Denies sore throat Cardiovascular: Denies chest pain, Reports decreased exercise tolerance, Reports dyspnea on exertion, Reports shortness of breath, Denies rapid heart beat, Denies syncope Respiratory: Denies congestion, Denies cough with sputum, Denies home oxygen, Denies respiratory infections, Denies snoring, Denies wheezing Gastrointestinal: Reports abdominal pain, Reports loss of appetite, Reports nausea, Reports vomiting, Denies bloating, Denies change in bowel habits, Denies constipation, Denies heartburn, Denies hematemesis, Denies indigestion, Denies melena Genitourinary: Reports dysuria, Reports urinary frequency Musculoskeletal: Reports atrophy (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 [place] defects.) Musculoskeletal: bilateral: as per HPI, absent: elbow pain, elbow stiffness, elbow swelling, hand pain, hand stiffness, hand swelling, hip pain, hip stiffness, hip swelling, shoulder pain, shoulder stiffness, shoulder swelling, wrist pain, wrist stiffness, wrist swelling Integumentary: Denies pruritus, Denies rash Neurological: Reports gait dysfunction, Denies numbness, Denies weakness Psychiatric: Reports anxiety, reports insomnia Endocrine: Denies fatigue, Denies weight change Physical examination GEN: This is a 64-year-old female. She is resting in bed and appears to be comfortable. No acute distress. HEENT: Head is atraumatic, normocephalic, pupils were equal round reactive to light and accommodation, extraocular muscle movement were intact. Neck: Supple, no JVP. Chest: Decreased breath sounds at the bases, few rhonchi, no expiratory wheezes, no chest with tenderness, no intercostal retractions. Heart: First heart sound is depressed, second heart sounds normal, there is no gallop. Abdomen: Soft, mild tenderness to the left lower quadrant, no rebound or guarding positive bowel sounds. Extremities: Bilateral above-knee amputation . Neurologic examination: Patient is awake alert and oriented 3, cranial nerves III-12 appear grossly intact. - Labs CBC & Chem 7: 10/30/19 06:16 10/30/19 06:12 Labs: Abnormal Lab Results - Last 24 Hours (Table) 10/30/19 10/30/19 Range/Units 06:12 06:16 PT 21.1 H (9.0-12.0) sec INR 2.2 H (<1.2) Chloride 111 H (98-107) mmol/L Carbon Dioxide 21 L (22-30) mmol/L Calcium 8.3 L (8.4-10.2) mg/dL Alkaline Phosphatase 33 L (38-126) U/L Total Protein 5.7 L (6.3-8.2) g/dL Albumin 3.0 L (3.5-5.0) g/dL Microbiology - Last 24 Hours (Table) 10/28/19 16:55 Blood Culture - Preliminary Blood No Growth after 24 hours Assessment and Plan Plan: 1. Chest pain the patient with the mild to moderate CAD disease with a recent heart catheterization back in July 2019. Acute coronary syndrome ruled out. Cardiology consult appreciated. Continue aspirin 81 mg once every day, Lipitor 40 mg orally once every day. 2. Left sigmoid colitis. Advance diet to full liquid, continue IV antibiotic in the form of Zosyn 3.375 g IV piggyback every 8 hours, metronidazole 500 mg IV piggyback every 8 hours, monitor the patient clinical symptoms, continue current pain management, GI consultation appreciated. MiraLAX added. 3. Right renal mass. Urology consult appreciated. Patient will have follow-up in the office. 4. Recurrent urinary tract infection. Discontinue Macrobid as the patient is already on Zosyn. 5. Bilateral renal stones. Stable at this time without any evidence of any obstruction per 6. Hypertension and hypertensive cardio vascular disease. Continue patient on Diovan 160 mg orally once every day 7. Hyperlipidemia. Continue patient on Lipitor 40 mg orally once every day. 8. Paroxysmal atrial fibrillation. Continue flecainide 100 mg orally twice every day along with Coumadin, monitor PT and INR. 9. GERD. Continue Pepcid 40 mg orally twice every day. 10. Bilateral above-knee amputation. 11. DVT progresses. Continue Coumadin keep her INR between 2-3. 12. GI prophylaxis. Continue Pepcid. 13. Full code. Discharge plan: Home Impression and plan of care have been directed as dictated by the signing physician. Sherie Olivares nurse practitioner acting as scribe for signing physician.
--- NOTE | 2019-10-30 15:37 | PN ---
PROGRESS NOTE DATE OF SERVICE: 10/30/2019 Patient is a 64-year-old pleasant white female admitted to hospital with lower abdominal pain, worsening constipation and UTI. She is presently on antibiotics. CT scan shows some thickening involving the left colon. The patient was started on MiraLAX yesterday and today complains that she has been having diarrhea. Abdominal pain has improved. She denies any nausea, vomiting. She reports no fever, chills, night sweats. Presently on a clear liquid diet, tolerating well. PHYSICAL EXAMINATION: She appears comfortable, in no apparent distress. VITAL SIGNS: Stable. Blood pressure is 141/73, pulse rate 48, temperature 98.4. HEENT: Examination unremarkable. NECK: No JVD or lymph node enlargement. CHEST: Clear to auscultation. HEART: Regular rate and rhythm. ABDOMEN: Soft. There was mild tenderness in the lower abdominal area. EXTREMITIES: No pedal edema. SKIN: No rashes. NEUROLOGIC: Alert and oriented x3. No focal deficits. LABS: From today, CBC is within normal limits. PT, INR is 2.2. Sodium 4.2, chloride 111, CO2 is 21, BUN 16, creatinine 0.56. Rest of the labs are within normal limits. IMPRESSION: 1. Lower abdominal pain/change in bowel habits. CAT scan showing thickening of the left colon. Presently on empiric antibiotics with Flagyl and ceftriaxone and doing better. 2. Chronic constipation. Presently on MiraLAX started with diarrhea. 3. We will decrease the MiraLAX to be taken as needed. 4. Renal mass for which Urology has been consulted. 5. Atypical chest pain. Cardiology following the patient closely. RECOMMENDATIONS: 1. Advance diet as tolerated. 2. Continue with broad-spectrum antibiotics. 3. MiraLAX as needed. 4. High-fiber diet. 5. If the patient continues to do well, will consider doing a colonoscopy on outpatient basis. The plan was discussed with the patient. She is agreeable to it. Thank you for this consultation. MMODL / IJN: [id number] /
[2019-10-30] MEDS: ATORVASTATIN 20 MG TAB PO SCH (20:05)
[2019-10-30] MEDS: WARFARIN 1 MG TAB PO SCH (20:06)
[2019-10-30] MEDS: FENOFIBRATE 160 MG TAB PO SCH (20:06)
[2019-10-30] MEDS ORDERED: MELATONIN 5 MG TABLET PO SCH (21:00)
[2019-10-31] MEDS: HYDROmorphone 1 MG/ML 1 ML SYRINGE IVP PRN ×3 (00:55→09:30)
[2019-10-31] MEDS: ONDANSETRON 4 MG/2 ML VIAL IVP PRN (04:15)
[2019-10-31] MEDS: metroNIDAZOLE-NS PMX 500 MG in SALINE 1 100ML.BAG IVPB SCH (06:39)
[2019-10-31 06:49] LABS: INR 1.9 (<1.2); Prothrombin Time 18.4 sec (9.0-12.0)
[2019-10-31 07:27] VITALS: BP 171/74; PULSE 62; RESP 18; TEMP 97.8
[2019-10-31] MEDS: ALPRAZolam 0.5 MG TAB PO SCH (09:29)
[2019-10-31] MEDS: VALSARTAN 160 MG TAB PO SCH (09:29)
[2019-10-31] MEDS: PANTOPRAZOLE 40 MG TABLET PO SCH (09:30)
[2019-10-31] MEDS: ASPIRIN 81 MG PO SCH (09:30)
[2019-10-31] MEDS: cloNIDine HCL 0.1 MG TAB PO SCH (09:30)
[2019-10-31] MEDS: PIPERACILLIN-TAZOBACTAM 3.375 GM in SODIUM CHLORIDE 0.9% 100 ML IVPB SCH (09:47)
[2019-10-31] MEDS ORDERED: HYDROcodone/APAP 10-325MG 1 EACH TAB PO PRN (11:28)
[2019-10-31] MEDS: MORPHINE SULFATE ER 30 MG TABLET PO PRN (12:31)
--- NOTE | 2019-10-31 12:55 | P.DS ---
Providers Date of admission: 10/29/19 14:10 Expected date of discharge: 10/31/19 Attending physician: Chu Balderas Consults: 10/28/19 18:48 Consult Physician Urgent Consulting Provider: David Brock Consult Reason/Comments: Chest pain Do you want consulting provider notified?: Yes 10/28/19 19:43 Consult Physician Routine Consulting Provider: Maricarmen Brock Consult Reason/Comments: Colitis Do you want consulting provider notified?: Yes 10/28/19 19:44 Consult Physician Routine Consulting Provider: Jayesh Dela Cruz Consult Reason/Comments: Right kidney mass Do you want consulting provider notified?: Yes Primary care physician: Arvin Aburto MD Hospital Course: This is a 64-year-old female one of Dr. Aburto with a previous medical history significant for mild to moderate CAD involving LAD, RCA and left circumflex with left heart catheter physician with done in July 2019, hypertension and hypertensive cardiovascular disease, hyperlipidemia, partici chen or for ablation, bilateral renal stones with recurrent UTI, currently under treatment for urinary tract infection with Macrobid, patient was brought to the emergency department at [facility] yesterday with increased lower abdominal pain associated with chest tightness Ramos in the left arm patient was seen in the emergency department 24 hours prior to that with lower abdominal pain and she was sent home not a lot of workup was done at that time, upon presentation to the emergency department yesterday she underwent computed tomography scan of the abdomen and pelvis that showed noncompensated distal colitis with the renal atrophy and possible right renal mass status of possible right renal cancer with renal atrophy, but because of her presentation she was admitted to the hospital she was started on IV antibiotic, she will be seen in consultation by cardiology, gastroenterology, as well as urology for evaluation of the renal mass. 10/29: Patient is currently resting in the observation unit. She has been seen by Dr. Brock for abdominal pain with severe constipation and suspicious for acute colitis. Recommendations to continue antibiotics which are in the form of Zosyn and Flagyl. GI started patient on MiraLAX and clear liquid diet to be advanced as tolerated. Patient is requesting that her diet be advanced. We will place her on a full liquid diet for now. Patient is also complaining of insomnia for which melatonin added. Patient also has Xanax 0.5 mg twice daily but she states this does not help. She also states she has tried melatonin at home without improvement. Cardiology has reevaluated and acute coronary syndrome has been ruled out. Aspirin dose decreased 81 mg daily and patient follow-up with Dr. Prescott in 2 weeks. Echocardiogram reveals EF of 55-60%, moderate concentric left ventricular hypertrophy, trace mitral regurgitation, trace tricuspid regurgitation, moderate generalized pericardial effusion. Patient has been seen by Dr. Dela Cruz regarding renal mass with concern for renal cell carcinoma. Recommendations to follow up in the office in 3 months and we will obtain repeat imaging at that time. If tumor progresses in size, plan will be to proceed with cryoablation versus surgical excision. If tumor is stable in size continue observation. Patient has been afebrile, heart rate 57, blood pressure 141/73, pulse ox 100% on room air. CBC is normal, INR 2.2, sodium 139, potassium 4.2, chloride 111, CO2 21, BUN 16, creatinine 0.56. There are function tests normal, calcium 8.3. Troponins have been negative on 3 draws. Triglycerides 146, cholesterol 139, LDL 86, HDL 24. Blood culture no growth after 24 hours. 10/30: Patient is afebrile, heart rate 62, blood pressure 171/74, pulse ox 100% on room air. INR today 1.9. Dr. Brock has advance diet to high fiber diet for breakfast. Patient is tolerating diet with no nausea or vomiting. She has diarrhea. C. difficile toxin negative. Patient continues to complain of abdominal pain and is receiving Dilaudid around the clock. This will be changed over to Axis in order for her to go home. Patient will be provided a prescription for 3 days' worth of Axis. MAPS score was checked which was 540. Patient has completed and understands opioid start talking form. Patient has been cleared for discharge by cardiology. Patient has also been cleared for discharge by GI and they provided a prescription for Bentyl for her. Patient will be discharged home today in stable condition. Discharge diagnoses: 1. Chest pain the patient with the mild to moderate CAD disease with a recent heart catheterization back in July 2019. Acute coronary syndrome ruled out. 2. Left sigmoid colitis. 3. Right renal mass. 4. Recurrent urinary tract infection. 5. Bilateral renal stones. 6. Hypertension and hypertensive cardio vascular disease. 7. Hyperlipidemia. 8. Paroxysmal atrial fibrillation. 9. GERD. 10. Bilateral above-knee amputation. Discharge plan: Home Impression and plan of care have been directed as dictated by the signing physician. Sherie Olivares nurse practitioner acting as scribe for signing physician. Patient Condition at Discharge: Good Plan - Discharge Summary Discharge Rx Participant: Yes New Discharge Prescriptions: New Valsartan [Diovan] 160 mg PO DAILY #30 tab metroNIDAZOLE [Flagyl] 500 mg PO Q8HR #30 tab Polyethylene Glycol 3350 [Miralax] 17 gm PO BID #60 powd.pack Dicyclomine [Bentyl] 10 mg PO TID #90 capsule Continue Fenofibrate 160 mg PO HS cloNIDine HCL [Catapres] 0.1 mg PO TID Warfarin [Coumadin] 2 mg PO TUTHSA ALPRAZolam [Xanax] 0.5 mg PO BID PRN PRN Reason: Anxiety Nitroglycerin Sl Tabs [Nitrostat] 0.4 mg SUBLINGUAL Q5M PRN PRN Reason: Chest Pain Morphine Sulfate ER [Ms Contin] 30 mg PO Q12HR PRN #12 tab PRN Reason: Pain Ondansetron HCl [Zofran] 8 mg PO TID PRN #12 tab PRN Reason: Nausea Docusate [Colace] 100 mg PO BID Omeprazole 1 cap PO AC-BRKFST Aspirin 81 mg PO DAILY Atorvastatin [Lipitor] 40 mg PO HS Warfarin [Coumadin] 1 mg PO SUMOWEFR Changed HYDROcodone/APAP 10-325MG [Axis 10-325] 1 tab PO QID #12 tab Discontinued Levofloxacin 500 mg PO DAILY No Action Flecainide Acetate 100 mg PO Q12H Discharge Medication List Fenofibrate 160 mg PO HS 11/15/15 [History] cloNIDine HCL [Catapres] 0.1 mg PO TID 06/21/18 [History] ALPRAZolam [Xanax] 0.5 mg PO BID PRN 01/20/19 [History] Warfarin [Coumadin] 2 mg PO TUTHSA 01/20/19 [History] Nitroglycerin Sl Tabs [Nitrostat] 0.4 mg SUBLINGUAL Q5M PRN 03/16/19 [History] Morphine Sulfate ER [Ms Contin] 30 mg PO Q12HR PRN #12 tab 05/31/19 [Rx] Ondansetron HCl [Zofran] 8 mg PO TID PRN #12 tab 05/31/19 [Rx] Docusate [Colace] 100 mg PO BID 07/03/19 [History] Flecainide Acetate 100 mg PO Q12H 07/03/19 [History] Omeprazole 1 cap PO AC-BRKFST 07/05/19 [History] Aspirin 81 mg PO DAILY 10/28/19 [History] Atorvastatin [Lipitor] 40 mg PO HS 10/29/19 [History] Warfarin [Coumadin] 1 mg PO SUMOWEFR 10/29/19 [History] Dicyclomine [Bentyl] 10 mg PO TID #90 capsule 10/31/19 [Rx] HYDROcodone/APAP 10-325MG [[place] 10-325] 1 tab PO QID #12 tab 10/31/19 [Rx] Polyethylene Glycol 3350 [Miralax] 17 gm PO BID #60 powd.pack 10/31/19 [Rx] Valsartan [Diovan] 160 mg PO DAILY #30 tab 10/31/19 [Rx] metroNIDAZOLE [Flagyl] 500 mg PO Q8HR #30 tab 10/31/19 [Rx] Follow up Appointment(s)/Referral(s): Arvin Aburto MD [Primary Care Provider] - 1 Week Issac Prescott MD [STAFF PHYSICIAN] - 11/15/19 3:00 pm (follow up with MARCK.) Maricarmen Brock MD [STAFF PHYSICIAN] - 2 Weeks Rudolph Moreira MD [STAFF PHYSICIAN] - 6 Weeks (in 3 months- January 2020) Discharge Disposition: HOME SELF-CARE
[2019-10-31] MEDS: DOCUSATE 100 MG CAP PO SCH (13:15)
[2019-10-31] MEDS: POLYETHYLENE GLYCOL 3350 17 GM POWD.PACK PO SCH (13:15)
--- NOTE | 2019-10-31 15:04 | PN ---
PROGRESS NOTE DATE OF SERVICE: 10/31/2019 REQUESTING PHYSICIAN: Dr. Balderas. The patient is a 64-year-old, pleasant, white female admitted to the hospital with acute onset of severe lower abdominal pain followed by diarrhea and subsequently diagnosed with possible infectious colitis, treated with empiric antibiotics. She is feeling better today. Abdominal pain has improved. She still has 3 to 4 loose bowel movements daily. She denies any fever, chills, or night sweats. No nausea or vomiting. PHYSICAL EXAMINATION: Appears comfortable. No apparent distress. VITAL SIGNS: Stable. Blood pressure is 171/74, pulse rate 62, temperature 97.8. HEENT: Unremarkable. Conjunctivae are pink. Sclerae nonicteric. Oral cavity: No lesions. NECK: No JVD or lymph node enlargement. CHEST: Clear to auscultation. HEART: Regular rate and rhythm. ABDOMEN: Soft. Bowel sounds are positive. Obese. EXTREMITIES: Bilateral above-knee amputations. LABS: Labs from today are not available. C difficile toxin was reported as negative. IMPRESSION: 1. Acute lower abdominal pain with diarrhea and possible left-sided colitis, infectious etiology, no broad-spectrum antibiotics and doing much better. 2. Urinary tract infection, improved. 3. Atrial fibrillation, on Coumadin. 4. Bilateral above-knee amputations. RECOMMENDATIONS: 1. The patient can be discharged home today on antibiotics for 5 days. 2. We will start her on Bentyl 10 mg 3 times daily for cramping lower abdominal pain and diarrhea. 3. She was advised to followup in the office in 2 to 3 weeks and we will plan an outpatient colonoscopy. Thank you for this consultation. MMODL / IJN: [id number] /
[2019-10-31] MEDS ORDERED: WARFARIN 2 MG TAB PO SCH (21:00)
== END 2019-10-31 13:39 | disposition home or self-care (01) | DRG 386 ==
LOC: EC 16:34 → 3SCARD 19:37 → 1SOBS 10-29 11:54 → OBSVTOIN 10-29 14:10
PROVIDERS: ADMIT Internal Medicine; ATTEND Internal Medicine
DX: K51.50 Left sided colitis without complications (principal); N39.0 Urinary tract infection, site not specified; I31.3 Pericardial effusion (noninflammatory); R07.89 Other chest pain; I25.10 Atherosclerotic heart disease of native coronary artery without angina pectoris; E78.5 Hyperlipidemia, unspecified; E86.0 Dehydration; I48.0 Paroxysmal atrial fibrillation; E11.9 Type 2 diabetes mellitus without complications; N28.89 Other specified disorders of kidney and ureter; N20.0 Calculus of kidney; G89.29 Other chronic pain; G47.00 Insomnia, unspecified; M19.90 Unspecified osteoarthritis, unspecified site; K21.9 Gastro-esophageal reflux disease without esophagitis; K59.09 Other constipation; F41.9 Anxiety disorder, unspecified; F17.210 Nicotine dependence, cigarettes, uncomplicated; Z90.49 Acquired absence of other specified parts of digestive tract; Z90.710 Acquired absence of both cervix and uterus; Z79.82 Long term (current) use of aspirin; Z79.01 Long term (current) use of anticoagulants; Z79.2 Long term (current) use of antibiotics; Z79.899 Other long term (current) drug therapy; Z87.442 Personal history of urinary calculi; Z87.440 Personal history of urinary (tract) infections; Z89.612 Acquired absence of left leg above knee; Z98.891 History of uterine scar from previous surgery; Z89.611 Acquired absence of right leg above knee; Z86.19 Personal history of other infectious and parasitic diseases; Z98.61 Coronary angioplasty status; Z98.1 Arthrodesis status; Z98.890 Other specified postprocedural states; Z99.3 Dependence on wheelchair; Z88.1 Allergy status to other antibiotic agents; Z88.2 Allergy status to sulfonamides; Z82.49 Family history of ischemic heart disease and other diseases of the circulatory system; Z80.1 Family history of malignant neoplasm of trachea, bronchus and lung; I11.0 Hypertensive heart disease with heart failure; I50.9 Heart failure, unspecified
CPT/HCPCS: 36415; 71046; 74177; 80053; 80061; 81001; 83605; 83690; 83735; 84484; 85025; 85610; 85730; 87040; 87324; 93005; 93306; 96374; 96375; 99285

== ENCOUNTER 2019-12-25 13:50 | Inpatient (IN) | payer OTHER ==
[2019-12-25] MEDS ORDERED: SODIUM CHLORIDE 0.9% 1,000 ML IV ONE (13:59)
[2019-12-25] MEDS ORDERED: ONDANSETRON 4 MG/2 ML VIAL IVP STA (14:36)
[2019-12-25] MEDS ORDERED: HYDROmorphone 0.5 MG/0.5 ML SYRINGE IVP STA (14:36)
[2019-12-25 14:43] LABS: Basophils # (A) 0.1 k/uL (0-0.2); Basophils % (A) 1 %; Eosinophils # (A) 0.1 k/uL (0-0.7); Eosinophils % (A) 1 %; HCT 43.8 % (34.0-46.0); HGB 14.2 gm/dL (11.4-16.0); Lymphocytes # (A) 2.1 k/uL (1.0-4.8); Lymphocytes % (A) 21 %; MCH 28.3 pg (25.0-35.0); MCHC 32.5 g/dL (31.0-37.0); MCV 86.9 fL (80.0-100.0); Mean Platelet Volume 8.2; Monocytes # (A) 0.4 k/uL (0-1.0); Monocytes % (A) 4 %; Neutrophils # (A) 6.9 k/uL (1.3-7.7); Neutrophils % (A) 72 %; Platelet Count 464 k/uL (150-450); RBC 5.04 m/uL (3.80-5.40); RDW 14.2 % (11.5-15.5); WBC 9.6 k/uL (3.8-10.6)
[2019-12-25 15:09] LABS: ALT 18 U/L (4-34); AST 27 U/L (14-36); African American GFR (CKD) >90 (>60 ml/min/1.73 sqM); Albumin 3.8 g/dL (3.5-5.0); Alkaline Phosphatase 56 U/L (38-126); Amylase 81 U/L (30-110); Anion Gap 8 mmol/L; Blood Urea Nitrogen 19 mg/dL (7-17); Calcium 9.1 mg/dL (8.4-10.2); Carbon Dioxide 21 mmol/L (22-30); Chloride 113 mmol/L (98-107); Glucose 109 mg/dL (74-99); Non-African American GFR(CKD) >90 (>60 ml/min/1.73 sqM); Potassium 3.3 mmol/L (3.5-5.1); Sodium 142 mmol/L (137-145); Total Bilirubin 0.4 mg/dL (0.2-1.3); Total Protein 6.8 g/dL (6.3-8.2)
[2019-12-25] MEDS: SODIUM CHLORIDE 0.9% 1,000 ML IV SCH ×2 (15:14→20:54)
[2019-12-25] MEDS ORDERED: POTASSIUM CHLORIDE ER 20 MEQ TAB.ER PO STA (15:29)
--- NOTE | 2019-12-25 16:35 | CT ---
EXAMINATION TYPE: CT abdomen pelvis w con DATE OF EXAM: 12/25/2019 HISTORY: Left lower quadrant pain. CT DLP: 1606.4mGycm Automated Exposure Control for Dose Reduction was Utilized. CONTRAST: CT scan of the abdomen and pelvis is performed with IV Contrast, patient injected with 80 mL of Isovu e 300. COMPARISON: None. FINDINGS: LUNG BASES: Patchy areas of atelectasis are seen at the lung bases. Heart is mildly enlarged in its v isualized portion. LIVER/GB: There is minimal intrahepatic biliary ductal dilatation and extra hepatic biliary ductal di latation likely due to this patient's postcholecystectomy status. To small to accurately characterize 2 mm hypoattenuated hepatic lesion is seen on image 32 in the inferior right hepatic lobe as well as similar hypoattenuated 3 mm lesion on image 42. PANCREAS: No significant abnormality is seen. SPLEEN: No significant abnormality is seen. ADRENALS: There is uniform thickening of the left adrenal gland suggesting adrenal gland hyperplasia. Right adrenal gland is unremarkable. KIDNEYS: Advanced right renal atrophy and hypertrophy of the left kidney with multifocal cortical ret raction and scarring on the left. Nonobstructing right lower pole renal calculi measuring up to 1.0 c m. Nonspecific bilateral mild perinephric fat stranding. Slightly hyperdense right posterior medial c ortical 1.2 cm renal lesion has an average Hounsfield unit of 37 and is indeterminate. Upper pole cys t measures 1.8 cm. No hydronephrosis of either kidney. BOWEL: There is long segment bowel wall thickening of the rectum and sigmoid colon that may be exagge rated secondary to incomplete distention. Lack of oral contrast limits evaluation of the bowel. Air-f luid levels in the colon are indicative of malabsorption and can be seen in diarrhea. Fluid-filled sm all bowel is also seen, nondilated. UTERUS/ADNEXA: Uterus appears surgically absent. LYMPH NODES: No greater than 1cm abdominal or pelvic lymph nodes are appreciated. OSSEOUS STRUCTURES: Moderate degenerative change of the spine. OTHER: Postsurgical change of the anterior abdominal wall. Diminutive caliber of the abdominal aorta is seen with suboptimal opacification of the common iliac arteries, particularly on the right. Advanc ed atherosclerosis of the abdominal aorta is mixed calcific and noncalcific. There is diffuse muscula r atrophy. IMPRESSION: 1. Long segment bowel wall thickening of the rectum and sigmoid colon, exaggerated by incomplete dist ention. Colitis of infectious or inflammatory etiology are most common. Ischemic etiology is less lik baljeet. No pericolonic abscess. Fluid-filled colon with air-fluid levels suggest malabsorption and/or di arrhea. Fluid-filled small bowel is also present but nondilated. 2. Right renal atrophy and indeterminate right renal lesion for which further characterization with e ither three-phase enhanced CT or MR are recommended on a nonemergent basis. Left renal compensatory h ypertrophy with multifocal scarring is also seen. Nonobstructing right renal calculi are noted. 3. Very diminutive caliber of the distal abdominal aorta with suboptimal opacification of the common iliac arteries. Correlate with clinical exam to assess pulses to determine whether emergent versus no nemergent vascular consultation should be had. 4. Intrahepatic and extra hepatic biliary ductal dilatation may be on the basis of postcholecystectom y status. Correlate with serum laboratory values.
[2019-12-25] MEDS ORDERED: HYDROmorphone 1 MG/ML 1 ML SYRINGE IVP STA (18:19)
[2019-12-25] MEDS ORDERED: PIPERACILLIN-TAZOBACTAM 3.375 GM in SODIUM CHLORIDE 0.9% 100 ML IVPB STA (18:58)
--- NOTE | 2019-12-25 18:58 | ED ---
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 Patient states she is nauseous she denies vomiting. Patient denies any fevers or cough congestion. Patient denies any chest pain or shortness of breath. Patient denies any groin pain. Patient denies any back pain. Remaining review of systems negative upon arrival patient appears uncomfortable she is tearful. Vital signs within acceptable limits she is not toxic. (Savana Marie) - Related Data Home Medications Medication Instructions Recorded Confirmed Fenofibrate 160 mg PO HS 11/15/15 10/29/19 cloNIDine HCL [Catapres] 0.1 mg PO TID 06/21/18 10/29/19 ALPRAZolam [Xanax] 0.5 mg PO BID PRN 01/20/19 10/29/19 Warfarin [Coumadin] 2 mg PO TUTHSA 01/20/19 10/29/19 Nitroglycerin Sl Tabs [Nitrostat] 0.4 mg SUBLINGUAL Q5M PRN 03/16/19 10/29/19 Docusate [Colace] 100 mg PO BID 07/03/19 10/29/19 Flecainide Acetate 100 mg PO Q12H 07/03/19 10/29/19 Omeprazole 1 cap PO AC-BRKFST 07/05/19 10/29/19 Aspirin 81 mg PO DAILY 10/28/19 10/29/19 Atorvastatin [Lipitor] 40 mg PO HS 10/29/19 10/29/19 Warfarin [Coumadin] 1 mg PO SUMOWEFR 10/29/19 10/29/19 Previous Rx's Medication Instructions Recorded Morphine Sulfate ER [Ms Contin] 30 mg PO Q12HR PRN #12 tab 05/31/19 Ondansetron HCl [Zofran] 8 mg PO TID PRN #12 tab 05/31/19 Dicyclomine [Bentyl] 10 mg PO TID #90 capsule 10/31/19 HYDROcodone/APAP 10-325MG [[place] 1 tab PO QID #12 tab 10/31/19 10-325] Polyethylene Glycol 3350 [Miralax] 17 gm PO BID #60 powd.pack 10/31/19 Valsartan [Diovan] 160 mg PO DAILY #30 tab 10/31/19 metroNIDAZOLE [Flagyl] 500 mg PO Q8HR #30 tab 10/31/19 Allergies Allergy/AdvReac Type Severity Reaction Status Date / Time sulfamethoxazole Allergy Itching Verified 10/29/19 10:41 [From Septra] trimethoprim [From Septra] Allergy Itching Verified 10/29/19 10:41 levofloxacin [From Levaquin] AdvReac Muscle Pain Verified 10/29/19 10:41 Review of Systems ROS Other: All systems not noted in ROS Statement are negative. <Max Rodriguez - Last Filed: 12/25/19 19:04> ROS Other: All systems not noted in ROS Statement are negative. <Savana Marie - Last Filed: 12/25/19 19:10> ROS Statement: Those systems with pertinent positive or pertinent negative responses have been documented in the HPI. Past Medical History Past Medical History: Atrial Fibrillation, Coronary Artery Disease (CAD), GERD/Reflux, Hyperlipidemia, Hypertension, Osteoarthritis (OA) Additional Past Medical History / Comment(s): hx urinary retention,right Neph rolithiasis,recurrent UTI,double amputation lower extremities, aka. 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 Past Anesthesia/Blood Transfusion Reactions: No Reported Reaction Additional Past Anesthesia/Blood Transfusion Reaction / Comment(s): Pt received blood in 1978-no reaction reported. Past Psychological History: Anxiety Smoking Status: Current every day smoker Past Alcohol Use History: None Reported Past Drug Use History: None Reported - Past Family History Father Family Medical History: Cancer, Myocardial Infarction (NC) Additional Family Medical History / Comment(s): Father had lung cancer-went into remission. He of a massive NC in his 60's Mother Family Medical History: Cancer Additional Family Medical History / Comment(s): Mother of lung cancer at age 54 yrs. <Savana Marie - Last Filed: 12/25/19 19:10> General Exam Limitations: no limitations <Savana Marie - Last Filed: 12/25/19 19:10> - General Exam Comments Initial Comments: General: The patient is awake and alert, in no distress Eye: +3mm pupils are equal, round and reactive to light, extra-ocular movements are intact. No nystagmus. There is normal conjunctiva bilaterally. No signs of icterus. Ears, nose, mouth and throat: There are moist mucous membranes and no oral lesions. Neck: The neck is supple, there is no tenderness or JVD. Cardiovascular: There is a regular rate and rhythm. No murmur, rub or gallop is appreciated. Respiratory: Lungs are clear to auscultation, respirations are non-labored, breath sounds are equal. No wheezes, stridor, rales, or rhonchi. Gastrointestinal: Soft, non-distended, diffuse lower abdominal tenderness--abdomen without masses or organomegaly noted. There is no rebound or guarding present. Musculoskeletal: Bilateral above knee amputation. Normal ROM, no tenderness. Strength 5/5. Sensation intact. Radial, femoral pulses equal bilaterally 2+. Neurological: A&O x 3. CN II-XII intact grossly, There are no obvious motor or sensory deficits. Coordination appears grossly intact. Speech is normal. Skin: Skin is warm and dry and no rashes or lesions are noted. Psychiatric: Cooperative, appropriate mood & affect, normal judgment. (Savana Marie) Course <Max Rodriguez - Last Filed: 12/25/19 19:04> Vital Signs 12/25/19 13:53 Temperature 97.6 F Pulse Rate 66 Respiratory 18 Rate Blood Pressure 139/85 - Reevaluation(s) Reevaluation #1: 12/25/19 19:05 Patient reexamined and reevaluated by myself, Dr. Rodriguez. Patient resting comfortably in bed. Patient still complaining of abdominal discomfort. Patient does have moderate tenderness lower abdomen. CT report reviewed. Results reviewed. I agree with the findings. This includes diagnostic interpretation and treatment plan. Case was discussed in detail with Dr. Spaulding who will admit covering for Dr. Villa. He requests Flagyl and consult with Dr. Carcamo and IV fluids. (Max Rodriguez) Medical Decision Making - Lab Data Result diagrams: 12/25/19 14:31 12/25/19 14:31 <Max Rodriguez - Last Filed: 12/25/19 19:04> - Lab Data Result diagrams: 12/25/19 14:31 12/25/19 14:31 <Savana Marie - Last Filed: 12/25/19 19:10> - Medical Decision Making 64-year-old female presents today for chief complaint of lower abdominal pain diarrhea. No bloody stools. Patient O2 sat is stable she appears dehydrated slightly she has been given fluids and pain medications the emergency department the patient is a tearful CT revealed extensive colitis no abscess. Kidney atrophy has been evaluated and patient has strong femoral pulses, bilateral AKA. Patient pain intractable. Colitis extensive. Zosyn and flagyll initiated in the ER. Michael evaluated patient, discussed case wtih Dr. Spaulding who is agreeable to admission with GI consultation. (Savana Marie) - Lab Data Lab Results 12/25/19 12/25/19 12/25/19 Range/Units 14:31 14:31 14:31 WBC 9.6 (3.8-10.6) k/uL RBC 5.04 (3.80-5.40) m/uL Hgb 14.2 (11.4-16.0) gm/dL Hct 43.8 (34.0-46.0) % MCV 86.9 (80.0-100.0) fL MCH 28.3 (25.0-35.0) pg MCHC 32.5 (31.0-37.0) g/dL RDW 14.2 (11.5-15.5) % Plt Count 464 H (150-450) k/uL Neutrophils % 72 % Lymphocytes % 21 % Monocytes % 4 % Eosinophils % 1 % Basophils % 1 % Neutrophils # 6.9 (1.3-7.7) k/uL Lymphocytes # 2.1 (1.0-4.8) k/uL Monocytes # 0.4 (0-1.0) k/uL Eosinophils # 0.1 (0-0.7) k/uL Basophils # 0.1 (0-0.2) k/uL Sodium 142 (137-145) mmol/L Potassium 3.3 L (3.5-5.1) mmol/L Chloride 113 H (98-107) mmol/L Carbon Dioxide 21 L (22-30) mmol/L Anion Gap 8 mmol/L BUN 19 H (7-17) mg/dL Creatinine 0.46 L (0.52-1.04) mg/dL Est GFR (CKD-EPI)AfAm >90 (>60 ml/min/1.73 sqM) Est GFR (CKD-EPI)NonAf >90 (>60 ml/min/1.73 sqM) Glucose 109 H (74-99) mg/dL Plasma Lactic Acid Joshua 0.7 (0.7-2.0) mmol/L Calcium 9.1 (8.4-10.2) mg/dL Total Bilirubin 0.4 (0.2-1.3) mg/dL AST 27 (14-36) U/L ALT 18 (4-34) U/L Alkaline Phosphatase 56 (38-126) U/L Total Protein 6.8 (6.3-8.2) g/dL Albumin 3.8 (3.5-5.0) g/dL Amylase 81 (30-110) U/L Lipase 663 H (23-300) U/L Disposition <Max Rodriguez - Last Filed: 12/25/19 19:04> Is patient prescribed a controlled substance at d/c from ED?: No Time of Disposition: 19:09 Decision to Admit Reason: Admit from EC Decision Date: 12/25/19 Decision Time: 19:09 <Savana Marie - Last Filed: 12/25/19 19:10> Clinical Impression: Colitis, Renal atrophy, Dehydration, Intractable abdominal pain Disposition: ADMITTED IP TO THIS [facility] Condition: Stable Referrals: Arvin Aburto MD [Primary Care Provider] - 1-2 days
[2019-12-25] MEDS ORDERED: metroNIDAZOLE-NS PMX 500 MG in SALINE 1 100ML.BAG IVPB STA (19:06)
[2019-12-25] MEDS ORDERED: NALOXONE 0.4 MG/ML 1 ML VIAL IV PRN (19:06)
[2019-12-25] MEDS ORDERED: DOCUSATE 100 MG CAP PO PRN (22:07)
[2019-12-25] MEDS: MELATONIN 5 MG TABLET PO SCH (23:05)
[2019-12-25] MEDS: ALPRAZolam 0.5 MG TAB PO SCH (23:06)
[2019-12-25] MEDS: MORPHINE SULFATE ER 30 MG TABLET PO SCH (23:06)
[2019-12-25] MEDS: busPIRone HCl 10 MG TAB PO SCH (23:07)
[2019-12-25] MEDS: amLODIPine 5 MG TAB PO SCH (23:07)
[2019-12-25] MEDS: cloNIDine HCL 0.2 MG TAB PO SCH (23:07)
[2019-12-25] MEDS: ATORVASTATIN 80 MG TAB PO SCH (23:07)
[2019-12-25] MEDS: HYDROcodone/APAP 10-325MG 1 EACH TAB PO SCH (23:08)
[2019-12-25] MEDS: BACLOFEN 10 MG TAB PO SCH (23:08)
[2019-12-25 23:32] LABS: Appearance,Urine Cloudy (Clear); Bacteria,Urine Rare /hpf; Bilirubin,Urine Negative (Negative); Blood,Urine Small (Negative); Color,Urine Yellow; Glucose,Urine (UA) Negative (Negative); Ketones,Urine Negative (Negative); Leukocyte Esterase,Urine Large (Negative); Mucus,Urine Rare /hpf; Nitrite,Urine Positive (Negative); PH, Urine 5.5 (5.0-8.0); Protein,Urine Trace (Negative); RBC,Urine 31 /hpf (0-5); Squamous Epithelial Cell,Urine 61 /hpf (0-4); Urobilinogen,Urine <2.0 mg/dL (<2.0); WBC,Urine 33 /hpf (0-5)
[2019-12-25 23:33] LABS: Specific Gravity,Urine >1.050 (1.001-1.035)
[2019-12-26] MEDS: HYDROmorphone 1 MG/ML 1 ML SYRINGE IVP PRN ×6 (00:56→21:30)
[2019-12-26] MEDS: SODIUM CHLORIDE 0.9% 1,000 ML IV SCH ×3 (05:09→20:18)
[2019-12-26] MEDS: ONDANSETRON ODT 4 MG TAB PO PRN (05:14)
[2019-12-26] MEDS ORDERED: HYDROcodone/APAP 10-325MG 1 EACH TAB PO PRN (08:12)
[2019-12-26] MEDS ORDERED: PROCHLORPERAZINE 10 MG TAB PO PRN (08:14)
[2019-12-26] MEDS ORDERED: methylPREDNISolone SOD SUCCI 40 MG/ML 1 ML VIAL IV SCH (08:15)
[2019-12-26] MEDS: VALSARTAN 160 MG TAB PO SCH ×2 (08:22→22:29)
[2019-12-26] MEDS: PANTOPRAZOLE 40 MG TABLET PO SCH ×2 (08:23→17:15)
[2019-12-26] MEDS: MORPHINE SULFATE ER 30 MG TABLET PO SCH ×2 (08:23→20:21)
[2019-12-26] MEDS: cloNIDine HCL 0.2 MG TAB PO SCH ×3 (08:23→21:29)
[2019-12-26] MEDS: HYDROcodone/APAP 10-325MG 1 EACH TAB PO SCH ×2 (08:24→20:22)
[2019-12-26] MEDS: BACLOFEN 10 MG TAB PO SCH ×3 (08:24→21:29)
[2019-12-26] MEDS: ALPRAZolam 0.5 MG TAB PO SCH ×2 (08:24→20:20)
[2019-12-26] MEDS: busPIRone HCl 10 MG TAB PO SCH ×3 (08:24→21:29)
[2019-12-26 08:30] LABS: ALT 17 U/L (4-34); AST 31 U/L (14-36); African American GFR (CKD) >90 (>60 ml/min/1.73 sqM); Albumin 3.3 g/dL (3.5-5.0); Alkaline Phosphatase 48 U/L (38-126); Anion Gap 8 mmol/L; Blood Urea Nitrogen 14 mg/dL (7-17); Calcium 8.3 mg/dL (8.4-10.2); Carbon Dioxide 18 mmol/L (22-30); Chloride 113 mmol/L (98-107); Glucose 88 mg/dL (74-99); Non-African American GFR(CKD) >90 (>60 ml/min/1.73 sqM); Sodium 139 mmol/L (137-145); Total Bilirubin 0.4 mg/dL (0.2-1.3); Total Protein 6.2 g/dL (6.3-8.2)
[2019-12-26] MEDS ORDERED: ALPRAZolam 0.5 MG TAB PO SCH (09:00)
[2019-12-26] MEDS ORDERED: busPIRone HCl 10 MG TAB PO SCH (09:00)
[2019-12-26] MEDS ORDERED: HYDROcodone/APAP 10-325MG 1 EACH TAB PO SCH (09:00)
[2019-12-26] MEDS ORDERED: cloNIDine HCL 0.2 MG TAB PO SCH (09:00)
[2019-12-26] MEDS ORDERED: MORPHINE SULFATE ER 30 MG TABLET PO SCH (09:00)
[2019-12-26] MEDS ORDERED: BACLOFEN 10 MG TAB PO SCH (09:00)
[2019-12-26 09:20] LABS: Basophils # (A) 0.1 k/uL (0-0.2); Basophils % (A) 1 %; Eosinophils # (A) 0.2 k/uL (0-0.7); Eosinophils % (A) 2 %; HCT 44.3 % (34.0-46.0); HGB 13.9 gm/dL (11.4-16.0); Lymphocytes # (A) 3.9 k/uL (1.0-4.8); Lymphocytes % (A) 43 %; MCH 28.1 pg (25.0-35.0); MCHC 31.4 g/dL (31.0-37.0); MCV 89.4 fL (80.0-100.0); Mean Platelet Volume 8.8; Monocytes # (A) 0.6 k/uL (0-1.0); Monocytes % (A) 6 %; Neutrophils # (A) 4.2 k/uL (1.3-7.7); Neutrophils % (A) 46 %; Platelet Count 401 k/uL (150-450); RBC 4.96 m/uL (3.80-5.40); RDW 14.5 % (11.5-15.5); WBC 9.1 k/uL (3.8-10.6)
[2019-12-26 09:26] LABS: INR 4.6 (<1.2); Prothrombin Time 45.5 sec (9.0-12.0)
--- NOTE | 2019-12-26 09:34 | P.PN ---
Subjective Progress Note Date: 12/26/19 Principal diagnosis: Severe abdominal pain, recurrent acute colitis, right kidney mass, paroxysm 64-year-old female one of Dr. Aburto's patient with past medical history of A. 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 Dona Reed. diff was negative also patient was studied for acute coronary syndrome with ejection fraction of 55-60 percentile troponin continue to be negative with no major change was evaluated by urology as well for right-sided renal mass and decided to have follow-up appointment in the office for further scanning and cytology of the urine. Patient apparently has done well for few weeks but developed again t o have significant pain and discomfort in the last few days with increase diarrhea without any bloody stool or tarry stool but she been having right lower abdominal discomfort she had nausea with no vomiting low-grade temperature with mild congestion no cough or wheezes no sign of Covid 19. Patient was seen at the emergency department with the above problem CT of the abdomen and pelvis showed long segment to of bowel wall thickening of the rectum in the sigmoid with worsening colitis either infectious or ischemic. Also had a fluid filled colon with air fluid level suggested malabsorption also had intrahepatic and extrahepatic biliary ductal dilation not a clear etiology. The CT still showing right renal lesion and nonobstructive stone in the right side. Patient was started on Flagyl IV pain management and IV hydration and admitted to the hospital will consult gastroenterology patient might need to be on colitis management medication. Also if no colonoscopy done since the last admis helena patient might need colonoscopy in the next few weeks. 12/25: Patient is crying from severity of pain and no diarrhea today still having significant right lower quadrant and mid lower abdominal pain, still on Flagyl, still on Dilaudid for pain which will add hydrocodone for breakthrough pain. If persistent might do another CAT scan by tomorrow with gastroenterology about the possibility of doing colonoscopy within the next week or so. Patient was started on steroids today with Solu-Medrol 40 mg every 8 hours try to control her wrap colitis symptoms. Still having nausea despite being on Zofran 8 mg every 6 hours Will add Compazine for now. Objective - Vital Signs Vital signs: Vital Signs Temp 97.8 F 12/26/19 07:20 Pulse 58 L 12/26/19 07:20 Resp 18 12/26/19 07:20 BP 182/66 12/26/19 07:20 Pulse Ox 99 12/26/19 07:20 Intake & Output 12/25/19 12/26/19 12/26/19 18:59 06:59 18:59 Intake Total 300 Output Total 110 Balance 190 Weight 72.575 kg 72.575 kg Intake: Oral 300 Output: Urine 110 Other: Voiding Method Bedpan # Voids 3 # Bowel Movements 1 - Exam Review of Systems CONSTITUTIONAL: Well-developed no acute respiratory distress. EYES: No icterus sclerae, no conjunctivitis. EARS, NOSE, MOUTH, THROAT, and FACE: No sore throat, lymphadenopathy, carotid bruits or deformity. RESPIRATORY: Mild shortness of breath no cough or wheezes. CARDIOVASCULAR: History of CAD with no chest pain or angina. GASTROINTESTINAL: Positive abdominal pain with nausea and diarrhea worsening right-sided pain mostly from colitis. GENITOURINARY: Positive right-sided kidney mass and kidney stone as well. INTEGUMENT/BREAST: Negative for any muscular injury with mild osteoarthritis.. HEMATOLOGIC/LYMPHATIC: Negative for bleed or purpura. MUSCULOSKELTAL: Bilateral above-knee amputation. NEURLOGICAL: No LOC, Sz or syncope, blurred vision dizziness or abnormality.. BEHAVIORAL/PSYCH: Negative. ENDOCRINE: Negative. Physical Exam Vitals: Vital Signs Temp Pulse Pulse Resp BP BP Pulse Ox 12/25/19 20:52 60 20 188/74 98 12/25/19 20:16 82 18 133/80 98 12/25/19 13:53 97.6 F 66 18 139/85 Intake and Output 12/25/19 12/25/19 12/26/19 14:59 22:59 06:59 Other: Weight 72.575 kg 72.575 kg General Appearance: Alert, cooperative, no distress, appears stated age. Neck HEENT: Supple, no lymphadenopathy, no thyroid enlargement, no carotid bruits. Lungs: Clear to auscultation without crackles or wheezes no rhonchi, no deformity. Chest Wall: Chest wall normal expansion with deep inspiration no tenderness and no deformity was found on exam, no costochondral pain or discomfort. Heart: Regular rate and rhythm, S1, S2 normal, no murmur, rub or gallop. Back: Symmetric, no curvature, ROM normal, no CVA tenderness. Abdomen: Soft positive bowel sounds slight tenderness and discomfort in the right side and mid lower abdominal region area no rebound or rigidity. Extremities: Bilateral above-knee amputation. Skin: Skin color, texture, tugor normal, no rashes or lesions. Neurologic: Alert oriented x3 cranial nerves II through XII intact, no motor deficit, no abnormal balance or gait. - Labs CBC & Chem 7: 12/26/19 08:18 12/26/19 07:44 Labs: Abnormal Lab Results - Last 24 Hours (Table) 12/25/19 12/25/19 12/25/19 Range/Units 14:31 14:31 21:45 Plt Count 464 H (150-450) k/uL Potassium 3.3 L (3.5-5.1) mmol/L Chloride 113 H (98-107) mmol/L Carbon Dioxide 21 L (22-30) mmol/L BUN 19 H (7-17) mg/dL Creatinine 0.46 L (0.52-1.04) mg/dL Glucose 109 H (74-99) mg/dL Calcium (8.4-10.2) mg/dL Total Protein (6.3-8.2) g/dL Albumin (3.5-5.0) g/dL Lipase 663 H (23-300) U/L Urine Appearance Cloudy H (Clear) Ur Specific [place] >1.050 H (1.001-1.035) Urine Protein Trace H (Negative) Urine Blood Small H (Negative) Urine Nitrite Positive H (Negative) Ur Leukocyte Esterase Large H (Negative) Urine RBC 31 H (0-5) /hpf Urine WBC 33 H (0-5) /hpf Ur Squamous Epith Cells 61 H (0-4) /hpf Urine Bacteria Rare H (None) /hpf Urine Mucus Rare H (None) /hpf 12/26/19 Range/Units 07:44 Plt Count (150-450) k/uL Potassium (3.5-5.1) mmol/L Chloride 113 H (98-107) mmol/L Carbon Dioxide 18 L (22-30) mmol/L BUN (7-17) mg/dL Creatinine 0.38 L (0.52-1.04) mg/dL Glucose (74-99) mg/dL Calcium 8.3 L (8.4-10.2) mg/dL Total Protein 6.2 L (6.3-8.2) g/dL Albumin 3.3 L (3.5-5.0) g/dL Lipase (23-300) U/L Urine Appearance (Clear) Ur Specific [place] (1.001-1.035) Urine Protein (Negative) Urine Blood (Negative) Urine Nitrite (Negative) Ur Leukocyte Esterase (Negative) Urine RBC (0-5) /hpf Urine WBC (0-5) /hpf Ur Squamous Epith Cells (0-4) /hpf Urine Bacteria (None) /hpf Urine Mucus (None) /hpf Assessment and Plan Assessment: 1 severe abdominal pain: Secondary to acute colitis ischemic versus infectious not a clear etiology consult gastroenterology continue patient on Flagyl for now patient might benefit from starting Asacol specially with the recurrent episode sure. If time also we'll keep watching for any bleeding or any C. diff at this point. 2 acute colitis: Patient was continue on Flagyl waiting for right GI consult we will add Solu-Medrol 40 mg every 8 hours for better control. 3 recent history of right kidney mass: Further management and follow-up by urology. 4 coronary disease: With recent heart catheter has been on medical management and still on optimize medical treatment. 5 chronic pain management: Patient was switched to Dilaudid 1 mg every 2 hours we will add hydrocodone 10 mg every 6 hours for breakthrough pain. 6 paroxysmal atrophy fibrillation: Remain on flecainide along with warfarin PT/INR be done and daily basis. 7 hyperlipidemia: Remain on atorvastatin 40 mg daily. 8 hypertension: Patient remain on Diovan 160 mg daily. 9 recurrent urinary tract infection has been off antibiotic recheck UA. 10 bilateral above-knee amputation secondary to deformity from no change. CODE STATUS: Full code.
[2019-12-26 12:06] LABS: Glucose,Whole Blood 126 mg/dL (75-99)
[2019-12-26] MEDS ORDERED: PHYTONADIONE ORAL 5 MG/5 ML ORAL.SYRG PO STA (12:33)
[2019-12-26] MEDS ORDERED: LEVOFLOXACIN 500MG-D5W PMX 500 MG in DEXTROSE/WATER 1 100ML.BAG IVPB SCH (12:45)
[2019-12-26] MEDS: metroNIDAZOLE-NS PMX 500 MG in SALINE 1 100ML.BAG IVPB SCH ×2 (16:13→23:31)
[2019-12-26] MEDS: ATORVASTATIN 80 MG TAB PO SCH (20:19)
[2019-12-26] MEDS: MELATONIN 5 MG TABLET PO SCH (20:19)
[2019-12-26] MEDS: amLODIPine 5 MG TAB PO SCH (20:20)
[2019-12-26] MEDS ORDERED: MELATONIN 5 MG TABLET PO SCH (21:00)
[2019-12-26] MEDS ORDERED: amLODIPine 5 MG TAB PO SCH (21:00)
[2019-12-26] MEDS ORDERED: ATORVASTATIN 80 MG TAB PO SCH (21:00)
--- NOTE | 2019-12-26 21:11 | CONS ---
CONSULTATION DATE OF DICTATION: 12/26/2019 REASON FOR CONSULTATION: Abdominal pain with nausea, vomiting and diarrhea. HISTORY OF PRESENT ILLNESS: The patient is a 64-year-old pleasant white female with history of atrial fibrillation, coronary artery disease, bilateral above-knee amputation, hypertension, hyperlipidemia, type 2 diabetes mellitus, admitted to the hospital with ongoing chronic abdominal pain for the last 3 months' duration. The patient was admitted to the hospital in September of this year, at which time she presented with similar symptoms and was treated with empiric antibiotics for possible infectious colitis and was discharged home. The plan was to perform an outpatient colonoscopy in 3 weeks. However, because of this pandemic, the appointment in the office was canceled. The patient states that since then she continued to have intermittent abdominal pain, mostly in the lower abdominal area, alternating with diarrhea and constipation. However, for the last 3 days her pain continued to progressively get worse and she started to have worsening diarrhea with at least 3-4 and occasionally 5-6 loose watery bowel movements daily. She denies any blood or mucus in the stool. The pain especially continued to progress yesterday and she came into the emergency room. She had a CT of the abdomen and pelvis done that showed long segment bowel wall thickening in the rectum, sigmoid colon which could explain the basis of infection versus inflammatory bowel disease, but ischemic etiology could not be excluded. Also there was evidence of indeterminate right renal lesion noted and mild intra- and extrahepatic biliary ductal dilation. She reports no fever, chills, night sweats. Denies any recent weight loss. She never had a colonoscopy in the past. PAST MEDICAL HISTORY: Her past medical history is significant for diabetes mellitus, hypertension, hyperlipidemia, coronary artery disease, atrial fibrillation, on Coumadin, right-sided renal mass. PAST SURGICAL HISTORY: Bilateral below-knee amputation, hysterectomy, cholecystectomy, . SOCIAL HISTORY: Chronic smoker. No alcohol use. FAMILY HISTORY: Father had coronary artery disease and lung cancer. Mother of lung cancer. MEDICATIONS: Medications at home include fenofibrate, Catapres, Xanax, Coumadin, Nitrostat, Colace, flecainide, omeprazole, aspirin, Lipitor. ALLERGIES: SULFA AND LEVAQUIN. REVIEW OF SYSTEMS: CARDIOPULMONARY: No chest pain or shortness of breath. GENITOURINARY: No dysuria or hematuria. MUSCULOSKELETAL: Chronic back pain and shoulder pain. NEUROLOGY: Unremarkable. PSYCHIATRY: History of anxiety, depression. ENT/VISION: Unremarkable. CONSTITUTIONAL: No recent weight loss. No fever, chills, night sweats. GI: As mentioned above. HEMATOLOGY: Unremarkable. PHYSICAL EXAMINATION: She appears comfortable. No apparent distress. Vital signs are stable. Blood pressure is 182/66, pulse rate 58, temperature 97.8. HEENT examination unremarkable. Conjunctivae pink. Sclerae anicteric. Oral cavity no lesions. NECK: No JVD or lymph node enlargement. CHEST: Clear to auscultation. HEART: Regular rate and rhythm. ABDOMEN: Soft. There was mild diffuse tenderness all over the abdomen; more tenderness in the left lower quadrant area as well as in the suprapubic area. Rest of the abdomen was benign. Bowel sounds are positive. No organomegaly. EXTREMITIES: No pedal edema. SKIN: No rashes. NEUROLOGIC: Alert and oriented x3. No focal deficits. LABS: WBC 9.6, hemoglobin 14.2, platelets normal. Basic metabolic panel is within normal limits. BUN 19, creatinine 0.46. INR is 4.6. AST, ALT, total bilirubin and alkaline phosphatase are normal. Amylase 81, lipase 663. Coronavirus PCR is not detected. IMPRESSION: 1. This is a patient who presented to the hospital with ongoing diffuse abdominal pain associated with alternating diarrhea and constipation for the last 3 months' duration. She had a hospitalization in September of this year and was treated with empiric antibiotics for possible infectious colitis. The plan was to do a colonoscopy on an outpatient basis, but this was canceled because of the ongoing pandemic. She now presents with worsening abdominal symptoms. The CT scan showed a long segment of bowel wall thickening involving the rectum and sigmoid colon, and possibility of ischemic etiology is likely at this time. Of course, inflammatory bowel disease cannot be excluded. She was empirically started on steroids yesterday. 2. Atrial fibrillation, on Coumadin. INR is 4.5. 3. History of diabetes mellitus, hypertension, hyperlipidemia. 4. Bilateral below-knee amputation. RECOMMENDATIONS: 1. Start her on a clear liquid diet. 2. Will start her on empiric antibiotics with Flagyl and ceftriaxone for possible infectious colitis. 3. Will plan on EGD and colonoscopy during this hospitalization once her INR is less than 1.5. For now, we will hold off on the Coumadin and give her vitamin K 5 mg p.o. and repeat INR in the morning. The plan was discussed with the patient. She is agreeable to it. Thank you for this consultation. EARLE / SEAN: [id number] /
[2019-12-27] MEDS: HYDROmorphone 1 MG/ML 1 ML SYRINGE IVP PRN ×4 (01:32→13:26)
[2019-12-27] MEDS: SODIUM CHLORIDE 0.9% 1,000 ML IV SCH ×3 (02:31→20:34)
[2019-12-27] MEDS: ONDANSETRON ODT 4 MG TAB PO PRN (04:47)
[2019-12-27 07:35] LABS: Glucose,Whole Blood 82 mg/dL (75-99)
[2019-12-27] MEDS: cloNIDine HCL 0.2 MG TAB PO SCH ×3 (07:38→20:36)
[2019-12-27] MEDS: BACLOFEN 10 MG TAB PO SCH ×3 (07:38→20:36)
[2019-12-27] MEDS: HYDROcodone/APAP 10-325MG 1 EACH TAB PO SCH ×2 (07:38→20:35)
[2019-12-27] MEDS: ALPRAZolam 0.5 MG TAB PO SCH ×2 (07:38→20:37)
[2019-12-27] MEDS: PANTOPRAZOLE 40 MG TABLET PO SCH ×2 (07:38→19:49)
[2019-12-27] MEDS: MORPHINE SULFATE ER 30 MG TABLET PO SCH ×2 (07:39→20:36)
[2019-12-27] MEDS: busPIRone HCl 10 MG TAB PO SCH ×3 (07:39→20:36)
[2019-12-27] MEDS: metroNIDAZOLE-NS PMX 500 MG in SALINE 1 100ML.BAG IVPB SCH ×2 (07:39→16:13)
[2019-12-27] MEDS: VALSARTAN 160 MG TAB PO SCH ×2 (07:46→20:37)
[2019-12-27 09:03] LABS: INR 1.4 (<1.2); Prothrombin Time 13.9 sec (9.0-12.0)
[2019-12-27 09:14] LABS: ALT 17 U/L (4-34); AST 26 U/L (14-36); African American GFR (CKD) >90 (>60 ml/min/1.73 sqM); Alkaline Phosphatase 46 U/L (38-126); Anion Gap 7 mmol/L; Blood Urea Nitrogen 11 mg/dL (7-17); Calcium 8.4 mg/dL (8.4-10.2); Carbon Dioxide 24 mmol/L (22-30); Chloride 111 mmol/L (98-107); Glucose 94 mg/dL (74-99); Non-African American GFR(CKD) >90 (>60 ml/min/1.73 sqM); Potassium 3.4 mmol/L (3.5-5.1); Sodium 142 mmol/L (137-145); Total Bilirubin 0.4 mg/dL (0.2-1.3); Total Protein 5.8 g/dL (6.3-8.2)
[2019-12-27 09:30] LABS: Basophils # (A) 0.1 k/uL (0-0.2); Basophils % (A) 1 %; Eosinophils # (A) 0.2 k/uL (0-0.7); Eosinophils % (A) 2 %; Lymphocytes # (A) 3.2 k/uL (1.0-4.8); Lymphocytes % (A) 38 %; MCH 28.1 pg (25.0-35.0); MCHC 31.7 g/dL (31.0-37.0); MCV 88.8 fL (80.0-100.0); Mean Platelet Volume 8.7; Monocytes # (A) 0.5 k/uL (0-1.0); Monocytes % (A) 5 %; Neutrophils # (A) 4.5 k/uL (1.3-7.7); Neutrophils % (A) 53 %; Platelet Count 397 k/uL (150-450); RBC 4.62 m/uL (3.80-5.40); RDW 14.2 % (11.5-15.5); WBC 8.5 k/uL (3.8-10.6)
[2019-12-27 11:23] LABS: Glucose,Whole Blood 101 mg/dL (75-99)
--- NOTE | 2019-12-27 15:30 | XR ---
EXAMINATION TYPE: XR abdomen 2V DATE OF EXAM: 12/27/2019 COMPARISON: 10/27/2019 HISTORY: Abdominal pain TECHNIQUE: One view abdominal series FINDINGS: The osseous structures are intact. The bowel gas pattern is nonspecific. Basilar consolidation is no zeus. Calcification overlying the iliac bone noted. Appears to be arthropathy of the hips. A prominent small bowel loops in the midabdomen and surgical clips noted. Scoliosis with degenerative change of the spine. IMPRESSION: 1. Nonspecific abdomen. Prominent bowel loops in the mid abdomen could been the basis of an ileus or enteritis. Partial obstructive pattern not excluded. Correlate clinically. 2. Basilar atelectasis and tiny effusions. Infiltrate not excluded.
[2019-12-27] MEDS ORDERED: PEG 3350-NA SULF,BICARB,CL/KCL 4,000 ML BOTTLE PO ONE (16:00)
[2019-12-27 17:09] LABS: Glucose,Whole Blood 79 mg/dL (75-99)
[2019-12-27] MEDS ORDERED: HYDROmorphone 1 MG/ML 1 ML SYRINGE ONE (19:20)
[2019-12-27 20:28] LABS: Glucose,Whole Blood 83 mg/dL (75-99)
[2019-12-27] MEDS: ATORVASTATIN 80 MG TAB PO SCH (20:35)
[2019-12-27] MEDS: amLODIPine 5 MG TAB PO SCH (20:37)
[2019-12-27] MEDS: MELATONIN 5 MG TABLET PO SCH (21:46)
[2019-12-28] MEDS: metroNIDAZOLE-NS PMX 500 MG in SALINE 1 100ML.BAG IVPB SCH ×4 (00:01→23:53)
--- NOTE | 2019-12-28 02:03 | PN ---
PROGRESS NOTE DATE OF DICTATION: 12/27/2019 The patient is a 64-year-old pleasant white female admitted to the hospital with chronic lower abdominal pain associated with alternating diarrhea, constipation and change in bowel habits for the last 2 months duration. She had a CAT scan and showed thickening of the sigmoid colon and rectum. Patient presently on broad-spectrum antibiotics for possible infectious colitis. In the meantime, she was on Coumadin for atrial fibrillation, which is currently on hold and received vitamin K yesterday and her INR is down to 1.4 today. She continues to complain of persistent abdominal pain. She reports no nausea or vomiting. No fever, chills or night sweats. PHYSICAL EXAMINATION: On physical examination, she appears comfortable, in no apparently distress. Vital signs are stable. Blood pressure is 172/73, pulse rate 50, temperature 98. HEENT EXAMINATION: Unremarkable. Conjunctivae pink. Sclerae anicteric. Oral cavity, no lesions. NECK: No JVD or lymph node enlargement. CHEST: Clear to auscultation. HEART: Regular rate and rhythm. ABDOMEN: Soft. Bowel sounds are positive. Mild diffuse tenderness in the left lower quadrant area. EXTREMITIES: No pedal edema. SKIN: No rashes. NEURO: Alert and oriented x3. No focal deficits. LABS: Labs from today: WBC 8.5, hemoglobin 15, platelets normal. INR 1.4. BUN and creatinine within normal limits. IMPRESSION: 1. Lower abdominal pain associated with diarrhea on and off for the last 3 months duration. CAT scan showing some thickening of the left colon. The patient on broad-spectrum antibiotics. Continues to remain symptomatic. 2. History of atrial fibrillation on Coumadin, currently on hold. INR is 1.4. 3. History of right above-knee amputation. 4. History of diabetes mellitus and hypertension. RECOMMENDATIONS: 1. Continue with a clear liquid diet. 2. We will proceed with an EGD, colonoscopy tomorrow. I discussed with her risks, benefits, and complications and agreeable to it. In the meantime, continue with broad-spectrum antibiotics. Continue to hold Coumadin. Repeat INR in the morning. 3. We will follow with you closely. Thank you for this consultation. MMODL / IJN: [id number] /
[2019-12-28] MEDS: HYDROmorphone 1 MG/ML 1 ML SYRINGE IVP PRN ×7 (04:20→21:57)
[2019-12-28] MEDS: SODIUM CHLORIDE 0.9% 1,000 ML IV SCH ×3 (05:31→20:11)
[2019-12-28] MEDS: ONDANSETRON ODT 4 MG TAB PO PRN ×2 (05:58→17:17)
[2019-12-28 07:14] LABS: Glucose,Whole Blood 76 mg/dL (75-99)
[2019-12-28] MEDS: ALPRAZolam 0.5 MG TAB PO SCH ×2 (07:56→20:05)
[2019-12-28] MEDS: cloNIDine HCL 0.2 MG TAB PO SCH ×3 (08:03→20:04)
[2019-12-28] MEDS: busPIRone HCl 10 MG TAB PO SCH ×3 (08:03→20:04)
[2019-12-28] MEDS: BACLOFEN 10 MG TAB PO SCH ×3 (08:03→20:07)
[2019-12-28] MEDS: VALSARTAN 160 MG TAB PO SCH ×2 (08:04→20:07)
[2019-12-28] MEDS: PANTOPRAZOLE 40 MG TABLET PO SCH ×2 (08:04→17:17)
[2019-12-28 08:09] LABS: INR 1.1 (<1.2); Prothrombin Time 11.2 sec (9.0-12.0)
[2019-12-28] MEDS: HYDROcodone/APAP 10-325MG 1 EACH TAB PO SCH ×2 (09:46→20:05)
[2019-12-28] MEDS: MORPHINE SULFATE ER 30 MG TABLET PO SCH ×2 (09:46→20:08)
[2019-12-28] MEDS ORDERED: amLODIPine 5 MG TAB PO STA (11:30)
--- NOTE | 2019-12-28 11:40 | P.PN ---
Subjective Progress Note Date: 12/27/19 64-year-old female one of Dr. Aburto's patient with past medical history of A. 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 Dona Reed. diff was negative also patient was studied for acute coronary syndrome with ejection fraction of 55-60 percentile troponin continue to be negative with no major change was evaluated by urology as well for right-sided renal mass and decided to have follow-up appointment in the office for further scanning and cytology of the urine. Patient apparently has done well for few weeks but developed again to have significant pain and discomfort in the last few days with increase diarrhea without any bloody stool or tarry stool but she been having right lower abdominal discomfort she had nausea with no vomiting low-grade temperature with mild congestion no cough or wheezes no sign of Covid 19. Patient was seen at the emergency department with the above problem CT of the abdomen and pelvis showed long segment to of bowel wall thickening of the rectum in the sigmoid with worsening colitis either infectious or ischemic. Also had a fluid filled colon with air fluid level suggested malabsorption also had intrahepatic and extrahepatic biliary ductal dilation not a clear etiology. The CT still showing right renal lesion and nonobstructive stone in the right side. Patient was started on Flagyl IV pain management and IV hydration and admitted to the hospital will consult gastroenterology patient might need to be on col itis management medication. Also if no colonoscopy done since the last admission patient might need colonoscopy in the next few weeks. 12/25: Patient is crying from severity of pain and no diarrhea today still having significant right lower quadrant and mid lower abdominal pain, still on Flagyl, still on Dilaudid for pain which will add hydrocodone for breakthrough pain. If persistent might do another CAT scan by tomorrow with gastroenterology about the possibility of doing colonoscopy within the next week or so. Patient was started on steroids today with Solu-Medrol 40 mg every 8 hours try to control her wrap colitis symptoms. Still having nausea despite being on Zofran 8 mg every 6 hours Will add Compazine for now. 12/26: Patient continues to complain of pain that is unchanged. She is to see Dr. Brock today with plan for possible colonoscopy and/or EGD that is delayed until tomorrow on nebulizer has been ordered for home and telephonic nurse case manager is obtaining for the patient.. She is currently on a clear liquid diet. INR 4.6 yesterday and repeat this morning is 1.4. Patient was status post vitamin K. Potassium 3.4 will be replaced. Patient is afebrile, heart rate 58, blood p ressure 213/79 with repeat at 181/75, pulse ox 90% on room air. Objective - Vital Signs Vital signs: Vital Signs Temp 98.0 F 12/27/19 07:00 Pulse 58 L 12/27/19 07:00 Resp 16 12/27/19 07:00 BP 213/79 12/27/19 07:00 Pulse Ox 98 12/27/19 07:00 Intake & Output 12/26/19 12/27/19 12/27/19 18:59 06:59 18:59 Intake Total 540 Balance 540 Intake: Oral 540 Other: Voiding Method Bedpan Bedpan Bedpan Incontinent Incontinent # Voids 3 2 # Bowel Movements 1 - Exam Review of Systems CONSTITUTIONAL: Well-developed no acute respiratory distress. Denies fever, denies chills. EYES: No icterus sclerae, no conjunctivitis. EARS, NOSE, MOUTH, THROAT, and FACE: No sore throat, lymphadenopathy, carotid bruits or deformity. RESPIRATORY: Mild shortness of breath no cough or wheezes. CARDIOVASCULAR: History of CAD with no chest pain or angina. GASTROINTESTINAL: Positive abdominal pain with nausea and diarrhea worsening right-sided pain mostly from colitis. GENITOURINARY: Positive right-sided kidney mass and kidney stone as well. INTEGUMENT/BREAST: Negative for any muscular injury with mild osteoarthritis.. HEMATOLOGIC/LYMPHATIC: Negative for bleed or purpura. MUSCULOSKELTAL: Bilateral above-knee amputation. NEURLOGICAL: No LOC, Sz or syncope, blurred vision dizziness or abnormality.. BEHAVIORAL/PSYCH: Negative. ENDOCRINE: Negative. Physical Exam General Appearance: Alert, cooperative, no acute distress, appears stated age. Neck HEENT: Supple, no lymphadenopathy, no thyroid enlargement, no carotid bruits. Lungs: Clear to auscultation without crackles or wheezes no rhonchi, no deformity. Chest Wall: Chest wall normal expansion with deep inspiration no tenderness and no deformity was found on exam, no costochondral pain or discomfort. Heart: Regular rate and rhythm, S1, S2 normal, no murmur, rub or gallop. Back: Symmetric, no curvature, ROM normal, no CVA tenderness. Abdomen: Soft positive bowel sounds slight tenderness and discomfort in the right side and mid lower abdominal region area no rebound or rigidity. Extremities: Bilateral above-knee amputation. Skin: Skin color, texture, tugor normal, no rashes or lesions. Neurologic: Alert oriented x3 cranial nerves II through XII intact, no motor deficit, no abnormal balance or gait. - Labs CBC & Chem 7: 12/27/19 08:23 12/27/19 08:23 Labs: Abnormal Lab Results - Last 24 Hours (Table) 12/26/19 12/26/19 12/27/19 Range/Units 08:18 11:57 08:23 PT 45.5 H 13.9 H (9.0-12.0) sec INR 4.6 H 1.4 H (<1.2) Potassium (3.5-5.1) mmol/L Chloride (98-107) mmol/L Creatinine (0.52-1.04) mg/dL POC Glucose (mg/dL) 126 H (75-99) mg/dL Total Protein (6.3-8.2) g/dL Albumin (3.5-5.0) g/dL 12/27/19 Range/Units 08:23 PT (9.0-12.0) sec INR (<1.2) Potassium 3.4 L (3.5-5.1) mmol/L Chloride 111 H (98-107) mmol/L Creatinine 0.44 L (0.52-1.04) mg/dL POC Glucose (mg/dL) (75-99) mg/dL Total Protein 5.8 L (6.3-8.2) g/dL Albumin 3.0 L (3.5-5.0) g/dL Microbiology - Last 24 Hours (Table) 12/25/19 21:45 Urine Culture - Preliminary Urine,Clean Catch Assessment and Plan Plan: 1 severe abdominal pain: Secondary to acute colitis ischemic versus infectious not a clear etiology consult gastroenterology continue patient on Flagyl for now patient might benefit from starting Asacol specially with the recurrent episode sure. If time also we'll keep watching for any bleeding or any C. diff at this point. EGD and colonoscopy with GI postpone until tomorrow due to coagulopathy. 2 acute colitis: Patient was continue on Flagyl waiting for right GI consult we will add Solu-Medrol 40 mg every 8 hours for better control. 3 recent history of right kidney mass: Further management and follow-up by urology. 4 coronary disease: With recent heart catheter has been on medical management and still on optimize medical treatment. 5 chronic pain management: Patient was switched to Dilaudid 1 mg every 2 hours we will add hydrocodone 10 mg every 6 hours for breakthrough pain. 6 paroxysmal atrophy fibrillation: Remain on flecainide along with warfarin PT /INR be done and daily basis. 7 hyperlipidemia: Remain on atorvastatin 40 mg daily. 8 hypertension: Patient remain on Diovan 160 mg daily. 9 recurrent urinary tract infection has been off antibiotic recheck UA. 10 bilateral above-knee amputation secondary to deformity from no change. 11 Hypercoagulopathy secondary to Coumadin use and got/bowel changes. CODE STATUS: Full code. Discharge plan: Home Impression and plan of care have been directed as dictated by the signing physician. Sherie Olivares nurse practitioner acting as scribe for signing physician.
--- NOTE | 2019-12-28 11:43 | P.PN ---
Subjective Progress Note Date: 12/28/19 64-year-old female one of Dr. Aburto's patient with past medical history of A. 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 Dona Reed. diff was negative also patient was studied for acute coronary syndrome with ejection fraction of 55-60 percentile troponin continue to be negative with no major change was evaluated by urology as well for right-sided renal mass and decided to have follow-up appointment in the office for further scanning and cytology of the urine. Patient apparently has done well for few weeks but developed again to have significant pain and discomfort in the last few days with increase diarrhea without any bloody stool or tarry stool but she been having right lower abdominal discomfort she had nausea with no vomiting low-grade temperature with mild congestion no cough or wheezes no sign of Covid 19. Patient was seen at the emergency department with the above problem CT of the abdomen and pelvis showed long segment to of bowel wall thickening of the rectum in the sigmoid with worsening colitis either infectious or ischemic. Also had a fluid filled colon with air fluid level suggested malabsorption also had intrahepatic and extrahepatic biliary ductal dilation not a clear etiology. The CT still showing right renal lesion and nonobstructive stone in the right side. Patient was started on Flagyl IV pain management and IV hydration and admitted to the hospital will consult gastroenterology patient might need to be on col itis management medication. Also if no colonoscopy done since the last admission patient might need colonoscopy in the next few weeks. 12/25: Patient is crying from severity of pain and no diarrhea today still having significant right lower quadrant and mid lower abdominal pain, still on Flagyl, still on Dilaudid for pain which will add hydrocodone for breakthrough pain. If persistent might do another CAT scan by tomorrow with gastroenterology about the possibility of doing colonoscopy within the next week or so. Patient was started on steroids today with Solu-Medrol 40 mg every 8 hours try to control her wrap colitis symptoms. Still having nausea despite being on Zofran 8 mg every 6 hours Will add Compazine for now. 12/26: Patient continues to complain of pain that is unchanged. She is to see Dr. Brock today with plan for possible colonoscopy and/or EGD that is delayed until tomorrow on nebulizer has been ordered for home and clinical case manager is obtaining for the patient.. She is currently on a clear liquid diet. INR 4.6 yesterday and repeat this morning is 1.4. Patient was status post vitamin K. Potassium 3.4 will be replaced. Patient is afebrile, heart rate 58, blood p ressure 213/79 with repeat at 181/75, pulse ox 90% on room air. 12/27: Patient is scheduled for EGD and colonoscopy this afternoon with Dr. Brock. Abdominal x-ray performed yesterday afternoon revealed nonspecific abdomen. Prominent bowel loops in the mid abdomen could be on the basis of an ileus or enteritis. Partial obstruction pattern not excluded. Basilar atelectasis and tiny effusions. Infiltrate not excluded. Patient has been afebrile, heart rate 58, blood pressure 180/80, pulse ox 98% on room air. Patient's amlodipine will be increased to 10 mg at bedtime. An additional dose of 5 mg ordered for this morning. Repeat INR is 1.1. Objective - Vital Signs Vital signs: Vital Signs Temp 98.3 F 12/28/19 07:00 Pulse 58 L 12/28/19 07:00 Resp 16 12/28/19 07:00 BP 180/80 12/28/19 07:00 Pulse Ox 98 12/28/19 07:00 Intake & Output 12/27/19 12/28/19 12/28/19 18:59 06:59 18:59 Intake Total 520 Balance 520 Intake: Oral 520 Other: Voiding Method Bedpan Bedpan Incontinent Incontinent # Voids 2 1 # Bowel Movements 4 - Exam Review of Systems CONSTITUTIONAL: Well-developed no acute respiratory distress. Denies fever, denies chills. EYES: No icterus sclerae, no conjunctivitis. EARS, NOSE, MOUTH, THROAT, and FACE: No sore throat, lymphadenopathy, carotid bruits or deformity. RESPIRATORY: Mild shortness of breath no cough or wheezes. CARDIOVASCULAR: History of CAD with no chest pain or angina. GASTROINTESTINAL: Positive abdominal pain with nausea and diarrhea worsening right-sided pain mostly from colitis. GENITOURINARY: Positive right-sided kidney mass and kidney stone as well. INTEGUMENT/BREAST: Negative for any muscular injury with mild osteoarthritis. HEMATOLOGIC/LYMPHATIC: Negative for bleed or purpura. MUSCULOSKELTAL: Bilateral above-knee amputation. NEURLOGICAL: No LOC, Sz or syncope, blurred vision dizziness or abnormality. BEHAVIORAL/PSYCH: Negative. ENDOCRINE: Negative. Physical Exam General Appearance: Alert, cooperative, appears stated age. Patient appears to be in no acute distress. Neck HEENT: Supple, no lymphadenopathy, no thyroid enlargement, no carotid bruits. Lungs: Clear to auscultation without crackles or wheezes no rhonchi, no deformity. Chest Wall: Chest wall normal expansion with deep inspiration no tenderness and no deformity was found on exam, no costochondral pain or discomfort. Heart: Regular rate and rhythm, S1, S2 normal, no murmur, rub or gallop. Back: Symmetric, no curvature, ROM normal, no CVA tenderness. Abdomen: Soft positive bowel sounds slight tenderness and discomfort in the right side and mid lower abdominal region area no rebound or rigidity. Extremities: Bilateral above-knee amputation. Skin: Skin color, texture, tugor normal, no rashes or lesions. Neurologic: Alert oriented x3 cranial nerves II through XII intact, no motor deficit, no abnormal balance or gait. - Labs CBC & Chem 7: 12/27/19 08:23 12/27/19 08:23 Labs: Abnormal Lab Results - Last 24 Hours (Table) 12/27/19 12/27/19 12/27/19 Range/Units 08:23 08:23 11:12 PT 13.9 H (9.0-12.0) sec INR 1.4 H (<1.2) Potassium 3.4 L (3.5-5.1) mmol/L Chloride 111 H (98-107) mmol/L Creatinine 0.44 L (0.52-1.04) mg/dL POC Glucose (mg/dL) 101 H (75-99) mg/dL Total Protein 5.8 L (6.3-8.2) g/dL Albumin 3.0 L (3.5-5.0) g/dL Microbiology - Last 24 Hours (Table) 12/25/19 21:45 Urine Culture - Preliminary Urine,Clean Catch Gram Neg Bacilli Assessment and Plan Plan: 1 severe abdominal pain: Secondary to acute colitis ischemic versus infectious not a clear etiology consult gastroenterology continue patient on Flagyl for now patient might benefit from starting Asacol specially with the recurrent episode sure. If time also we'll keep watching for any bleeding or any C. diff at this point. EGD and colonoscopy with GI scheduled today. 2 acute colitis: Patient was continue on Flagyl waiting for right GI consult we will add Solu-Medrol 40 mg every 8 hours for better control. 3 recent history of right kidney mass: Further management and follow-up by urology. 4 coronary disease: With recent heart catheter has been on medical management and still on optimize medical treatment. 5 chronic pain management: Patient was switched to Dilaudid 1 mg every 2 hours we will add hydrocodone 10 mg every 6 hours for breakthrough pain. 6 paroxysmal atrophy fibrillation: Remain on flecainide along with warfarin PT/INR be done and daily basis. 7 hyperlipidemia: Remain on atorvastatin 40 mg daily. 8 hypertension: Patient remain on Diovan 160 mg daily. 9 recurrent urinary tract infection has been off antibiotic recheck UA. 10 bilateral above-knee amputation secondary to deformity from no change. 11 Hypercoagulopathy secondary to Coumadin use and gut/bowel changes. CODE STATUS: Full code. Discharge plan: Home in the next 24-48 hours. Impression and plan of care have been directed as dictated by the signing physician. Sherie Olivares nurse practitioner acting as scribe for signing abel tobar
[2019-12-28 11:54] LABS: Glucose,Whole Blood 80 mg/dL (75-99)
[2019-12-28] MEDS ORDERED: PROPOFOL 10 MG/ML 20 ML VIAL IV ONE (13:24)
[2019-12-28] MEDS ORDERED: IV FLUID CONTINUATION 1,000 ML IV ONE ×2 (13:31)
[2019-12-28] MEDS ORDERED: SODIUM CHLORIDE 0.9% 500 ML 500 ML IV ONE (14:07)
--- NOTE | 2019-12-28 14:10 | P.PCN ---
Date of Procedure: 12/28/19 Procedure(s) Performed: Brief history: Patient is a pleasant 65-year-old white female admitted hospital with abdominal pain associated with nausea vomiting diarrhea for the last 2-3 months duration. She was hospitalized in September for 5 days and was treated with empiric antibiotics and discharged home. Since then she continues to remain symptomatic. She was readmitted to the hospital with the same symptoms about 2 days ago. She is hence scheduled scheduled for an upper endoscopy as well as colonoscopy. Procedure performed: Esophagogastroduodenoscopy with biopsy Colonoscopy with biopsy Preoperative diagnosis: Abdominal pain/intermittent nausea vomiting and change in bowel habits of 3 months duration Anesthesia: MAC Procedure: After informed consent was obtained from the patient was brought into the endoscopy unit and IV sedation was administered by anesthesia under continuous monitoring. Initially upper endoscopy was done. The Olympus GF 160 video endoscope was inserted inserted into the mouth and esophagus intubated without any difficulty and was gradually advanced into the stomach and duodenum and carefully examined. The bulb and second part of the duodenum appeared normal. Biopsies were done from the duodenum to rule out celiac disease. The scope was then withdrawn into the stomach adequately insufflated with air and upon careful examination the antrum and mild gastritis. The body, cardia and fundus appeared normal. The scope was then withdrawn into the esophagus. The GE junction was located at 40 cm to the incisors. It appeared regular with no erythema erosions or ulcerations. Rest of the esophagus appeared normal. Patient tolerated the procedure well. At this time the patient continued to remain sedation. Initial digital rectal examination was normal. Olympus CF 160 video colonoscope was then inserted into the rectum and gradually advanced to the cecum without any difficulty. Careful examination was performed as the scope was gradually being withdrawn. The prep was excellent. The cecum, ascending colon, transverse colon, descending colon, sigmoid colon and rectum appeared normal. Random biopsies were done from ascending and descending colon to rule out microscopic/collagenous colitis. Retroflexion was performed in the rectum and no lesions were noted. Patient tolerated the procedure well. Impression: 1. Upper endoscopy revealed mild antral gastritis but no evidence of esophagitis or peptic ulcer disease 2. Colonoscopy was within normal limits with no evidence of colitis or colorectal neoplasia. Status post random biopsy to rule out microscopic colitis Recommendations: Findings of this examination were discussed with the patient. She was advised to follow with the biopsy results. In the meantime we'll advance her diet as tolerated. I will thomas on Bentyl 10 mg 3 times daily for possible IBS causing the symptoms.
[2019-12-28] MEDS: DICYCLOMINE 10 MG CAP PO SCH ×2 (14:45→20:05)
[2019-12-28 17:23] LABS: Glucose,Whole Blood 156 mg/dL (75-99)
[2019-12-28 19:53] VITALS: RESP 16
[2019-12-28] MEDS: MELATONIN 5 MG TABLET PO SCH (20:05)
[2019-12-28] MEDS: ATORVASTATIN 80 MG TAB PO SCH (20:05)
[2019-12-28] MEDS ORDERED: amLODIPine 10 MG TAB PO SCH (21:00)
[2019-12-29] MEDS: HYDROmorphone 1 MG/ML 1 ML SYRINGE IVP PRN ×4 (02:10→15:10)
[2019-12-29] MEDS: SODIUM CHLORIDE 0.9% 1,000 ML IV SCH (05:49)
[2019-12-29] MEDS: VALSARTAN 160 MG TAB PO SCH (08:10)
[2019-12-29] MEDS: MORPHINE SULFATE ER 30 MG TABLET PO SCH (08:10)
[2019-12-29] MEDS: ALPRAZolam 0.5 MG TAB PO SCH (08:10)
[2019-12-29] MEDS: metroNIDAZOLE-NS PMX 500 MG in SALINE 1 100ML.BAG IVPB SCH (08:10)
[2019-12-29] MEDS: BACLOFEN 10 MG TAB PO SCH ×2 (08:11→15:11)
[2019-12-29] MEDS: DICYCLOMINE 10 MG CAP PO SCH ×2 (08:11→17:32)
[2019-12-29] MEDS: busPIRone HCl 10 MG TAB PO SCH ×2 (08:11→15:11)
[2019-12-29] MEDS: cloNIDine HCL 0.2 MG TAB PO SCH ×2 (08:11→15:11)
[2019-12-29] MEDS: PANTOPRAZOLE 40 MG TABLET PO SCH ×2 (08:11→17:32)
[2019-12-29] MEDS: HYDROcodone/APAP 10-325MG 1 EACH TAB PO SCH (08:12)
--- NOTE | 2019-12-29 08:21 | P.DS ---
Providers Date of admission: 12/25/19 19:06 Expected date of discharge: 12/29/19 Attending physician: Pavel Spaulding Consults: 12/25/19 19:07 Consult Physician Routine Consulting Provider: Maricarmen Brock Consult Reason/Comments: COlitis, intractable abdominal pain Do you want consulting provider notified?: Yes Primary care physician: Arvin Aburto MD Hospital Course: 64-year-old female one of Dr. Aburto's patient with past medical history of A. 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 Dona Reed. diff was negative also patient was studied for acute coronary syndrome with ejection fraction of 55-60 percentile troponin continue to be negative with no major change was evaluated by urology as well for right-sided renal mass and decided to have follow-up appointment in the office for further scanning and cytology of the urine. Patient apparently has done well for few weeks but developed again to have significant pain and discomfort in the last few days with increase diarrhea without any bloody stool or tarry stool but she been having right lower abdominal discomfort she had nausea with no vomiting low-grade temperature with mild congestion no cough or wheezes no sign of Covid 19. Patient was seen at the emergency department with the above problem CT of the abdomen and pelvis showed long segment to of bowel wall thickening of the rectum in the sigmoid with worsening colitis either infectious or ischemic. Also had a fluid filled colon with air fluid level suggested malabsorption also had intrahepatic and extrahepatic biliary ductal dilation not a clear etiology. The CT still showing right renal lesion and nonobstructive stone in the right side. Patient was started on Flagyl IV pain management and IV hydration and admitted to the hospital will consult gastroenterology patient might need to be on colitis management medication. Also if no colonoscopy done since the last admission patient might need colonoscopy in the next few weeks. 12/25: Patient is crying from severity of pain and no diarrhea today still having significant right lower quadrant and mid lower abdominal pain, still on Flagyl, still on Dilaudid for pain which will add hydrocodone for breakthrough pain. If persistent might do another CAT scan by tomorrow with gastroenterology about the possibility of doing colonoscopy within the next week or so. Patient was started on steroids today with Solu-Medrol 40 mg every 8 hours try to control her wrap colitis symptoms. Still having nausea despite being on Zofran 8 mg every 6 hours Will add Compazine for now. 12/26: Patient continues to complain of pain that is unchanged. She is to see Dr. Brock today with plan for possible colonoscopy and/or EGD that is delayed until tomorrow on nebulizer has been ordered for home and protective services case worker is obtaining for the patient.. She is currently on a clear liquid diet. INR 4.6 yesterday and repeat this morning is 1.4. Patient was status post vitamin K. Potassium 3.4 will be replaced. Patient is afebrile, heart rate 58, blood pressure 213/79 with repeat at 181/75, pulse ox 90% on room air. 12/27: Patient is scheduled for EGD and colonoscopy this afternoon with Dr. Brock. Abdominal x-ray performed yesterday afternoon revealed nonspecific abdomen. Prominent bowel loops in the mid abdomen could be on the basis of an ileus or enteritis. Partial obstruction pattern not excluded. Basilar atelectasis and tiny effusions. Infiltrate not excluded. Patient has been afebrile, heart rate 58, blood pressure 180/80, pulse ox 98% on room air. Patient's amlodipine will be increased to 10 mg at bedtime. An additional dose of 5 mg ordered for this morning. Repeat INR is 1.1. 12/28: Yesterday, patient underwent upper and lower endoscopy with Dr. Brock. Upper endoscopy revealed mild antral gastritis but no evidence of esophagitis or peptic ulcer disease. Colonoscopy was within normal limits with no evidence of colitis or colorectal neoplasia. Status post random biopsy to rule out microscopic colitis. Pathology reports are pending and patient has been advised to follow up for biopsy reports. Diet has been advanced as tolerated. Bentyl has been started 10 mg 3 times daily for possible IBS causing symptoms. Urine culture is positive for Klebsiella pneumoniae ESBL, [id number] organism. Patient will be started on ertapenem with plan for a one-week course at home. Midline has been ordered. airfield manager is working on making arrangements for antibiotics at home through [facility]. She has been afebrile, heart rate 62, blood pressure 156/70, pulse ox 96% on room air. Patient will be discharged home today once all arrangements are completed.. Discharge diagnoses: 1 severe abdominal pain, colitis ruled out by colonoscopy, biopsies pending. Symptoms most likely secondary to IBS. 2 acute Klebsiella pneumoniae ESBL urinary tract infection 3 recent history of right kidney mass: Further management and follow-up by urology. 4 coronary disease: With recent heart catheter. 5 chronic pain management. 6 paroxysmal atrial fibrillation. 7 hyperlipidemia. 8 hypertension. 9 recurrent urinary tract infection. 10 bilateral above-knee amputation secondary to deformity from . 11 Hypercoagulopathy secondary to Coumadin use and gut/bowel changes. Discharge plan: Home with [facility] and IV antibiotics. Impression and plan of care have been directed as dictated by the signing physician. Sherie Olivares nurse practitioner acting as scribe for signing physician. Patient Condition at Discharge: Good Plan - Discharge Summary New Discharge Prescriptions: New Dicyclomine [Bentyl] 10 mg PO TID #90 cap amLODIPine [Norvasc] 10 mg PO HS #30 tab Ertapenem [INVanz] 1 gm IVPB Q24H #7 bag Continue Warfarin [Coumadin] 2 mg PO SUTUTHSA ALPRAZolam [Xanax] 0.5 mg PO BID Docusate [Colace] 100 mg PO BID PRN PRN Reason: Constipation Aspirin 81 mg PO DAILY Warfarin [Coumadin] 1 mg PO MOWEFR Valsartan [Diovan] 160 mg PO BID Morphine Sulfate ER [Ms Contin] 30 mg PO BID HYDROcodone/APAP 10-325MG [[place] 10-325] 1 tab PO BID Ondansetron Odt [Zofran ODT] 8 mg PO Q8HR PRN PRN Reason: Nausea And Vomiting busPIRone HCl [Buspar] 10 mg PO TID Baclofen [Lioresal] 10 mg PO TID Atorvastatin Calcium [Lipitor] 80 mg PO HS cloNIDine HCL [Catapres] 0.2 mg PO TID Melatonin 10 mg PO HS Discontinued amLODIPine [Norvasc] 5 mg PO HS Discharge Medication List ALPRAZolam [Xanax] 0.5 mg PO BID 01/20/19 [History] Warfarin [Coumadin] 2 mg PO SUTUTHSA 01/20/19 [History] Docusate [Colace] 100 mg PO BID PRN 07/03/19 [History] Aspirin 81 mg PO DAILY 10/28/19 [History] Warfarin [Coumadin] 1 mg PO MOWEFR 10/29/19 [History] Atorvastatin Calcium [Lipitor] 80 mg PO HS 12/25/19 [History] Baclofen [Lioresal] 10 mg PO TID 12/25/19 [History] HYDROcodone/APAP 10-325MG [[place] 10-325] 1 tab PO BID 12/25/19 [History] Melatonin 10 mg PO HS 12/25/19 [History] Morphine Sulfate ER [Ms Contin] 30 mg PO BID 12/25/19 [History] Ondansetron Odt [Zofran ODT] 8 mg PO Q8HR PRN 12/25/19 [History] Valsartan [Diovan] 160 mg PO BID 12/25/19 [History] busPIRone HCl [Buspar] 10 mg PO TID 12/25/19 [History] cloNIDine HCL [Catapres] 0.2 mg PO TID 12/25/19 [History] Dicyclomine [Bentyl] 10 mg PO TID #90 cap 12/29/19 [Rx] Ertapenem [INVanz] 1 gm IVPB Q24H #7 bag 12/29/19 [Rx] amLODIPine [Norvasc] 10 mg PO HS #30 tab 12/29/19 [Rx] Follow up Appointment(s)/Referral(s): Arvin Aburto MD [Primary Care Provider] - 01/03/20 10:30 am Autumn Salmeron PAC [REFERRING] - 01/01/20 2:00 pm [facility] Visiting Nurse, [NON-STAFF] - Ambulatory/Diagnostic Orders: Basic Metabolic Panel [LAB.AMB] Location: None Selected Complete Blood Count w/diff [LAB.AMB] Location: None Selected Discharge Disposition: HOME WITH HOME HEALTH SERVICES
[2019-12-29] MEDS ORDERED: ERTAPENEM 1 GM in SODIUM CHLORIDE 0.9% 50 ML IVPB SCH (11:00)
[2019-12-29 15:37] VITALS: BP 164/75; TEMP 98.3
[2019-12-29] MEDS ORDERED: metroNIDAZOLE 500 MG TAB PO SCH (16:00)
[2019-12-29 17:07] VITALS: PULSE 60
== END 2019-12-29 18:38 | disposition home health service (06) | DRG 392 ==
LOC: EC 13:50 → 4SSUR 19:06
PROVIDERS: ADMIT Internal Medicine Geriatric Medicine; ATTEND Internal Medicine Geriatric Medicine
PROC: 0DB98ZX Excision of Duodenum, Via Natural or Artificial Opening Endoscopic, Diagnostic (ICD-10-PCS; principal; 2019-12-28 13:00)
PROC: 0DBM8ZX Excision of Descending Colon, Via Natural or Artificial Opening Endoscopic, Diagnostic (ICD-10-PCS; principal; 2019-12-28 13:00)
PROC: 0DBK8ZX Excision of Ascending Colon, Via Natural or Artificial Opening Endoscopic, Diagnostic (ICD-10-PCS; principal; 2019-12-28 13:00)
PROC: 0DB78ZX Excision of Stomach, Pylorus, Via Natural or Artificial Opening Endoscopic, Diagnostic (ICD-10-PCS; principal; 2019-12-28 13:00)
DX: K58.9 Irritable bowel syndrome, unspecified (principal); N39.0 Urinary tract infection, site not specified; J98.11 Atelectasis; D68.59 Other primary thrombophilia; K29.70 Gastritis, unspecified, without bleeding; I48.0 Paroxysmal atrial fibrillation; I25.10 Atherosclerotic heart disease of native coronary artery without angina pectoris; I10 Essential (primary) hypertension; G89.29 Other chronic pain; F17.200 Nicotine dependence, unspecified, uncomplicated; E78.5 Hyperlipidemia, unspecified; E11.9 Type 2 diabetes mellitus without complications; K21.9 Gastro-esophageal reflux disease without esophagitis; M19.90 Unspecified osteoarthritis, unspecified site; F41.9 Anxiety disorder, unspecified; E86.0 Dehydration; B96.1 Klebsiella pneumoniae [K. pneumoniae] as the cause of diseases classified elsewhere; T45.515A Adverse effect of anticoagulants, initial encounter; Z11.59 Encounter for screening for other viral diseases; Z89.519 Acquired absence of unspecified leg below knee; Z89.611 Acquired absence of right leg above knee; Z87.442 Personal history of urinary calculi; Z90.710 Acquired absence of both cervix and uterus; Z89.612 Acquired absence of left leg above knee; Z87.440 Personal history of urinary (tract) infections; Z82.49 Family history of ischemic heart disease and other diseases of the circulatory system; Z80.1 Family history of malignant neoplasm of trachea, bronchus and lung; Z79.899 Other long term (current) drug therapy; Z79.82 Long term (current) use of aspirin; Z79.01 Long term (current) use of anticoagulants; Z88.1 Allergy status to other antibiotic agents; Z88.2 Allergy status to sulfonamides; Z98.891 History of uterine scar from previous surgery; Z90.49 Acquired absence of other specified parts of digestive tract; Z90.89 Acquired absence of other organs; Z98.890 Other specified postprocedural states; Z98.1 Arthrodesis status; Z90.722 Acquired absence of ovaries, bilateral
CPT/HCPCS: 36410; 36415; 43239; 45380; 74019; 74177; 76937; 80053; 81001; 82150; 83605; 83690; 85025; 85610; 87077; 87086; 87186; 87635; 88305; 96361; 96365; 96375; 96376; 99285

== ENCOUNTER 2020-03-20 19:25 | Emergency (ER) | payer OTHER ==
--- NOTE | 2020-03-20 19:29 | ED ---
General Adult HPI - General Stated complaint: L Flank Pain Time Seen by Provider: 03/20/20 19:29 - History of Present Illness Initial comments: Patient is a 64-year-old female with history of renal stones, diverticulitis, recurrent UTIs, pancreatitis, bilateral AKA presenting to the emergency department with chief complaint of flank pain. Patient reports she has developed sudden onset of left flank pain this morning. Patient also reports mild left lower quadrant pain. She also reports some loose stools today but denies any hematochezia or melena. Patient reports recently she was released from the hospital after being treated for a UTI and she finished her antibiotic course. She states she is never symptomatic for UTI but they always find an infection. Patient reports she has not been able to urinate today. She denies any nausea or vomiting but does report a headache from earlier today. She denies any night sweats or chills. State that she takes extended release morphine twice a day and [place] as 3 times a day but has ran out of them both. States she is currently in the process of finding a new pain management doctor. - Related Data Home Medications Medication Instructions Recorded Confirmed ALPRAZolam [Xanax] 0.5 mg PO BID 01/20/19 03/20/20 Warfarin [Coumadin] 2 mg PO SUTUTHSA 01/20/19 03/20/20 Warfarin [Coumadin] 1 mg PO MOWEFR 10/29/19 03/20/20 Atorvastatin Calcium [Lipitor] 80 mg PO HS 12/25/19 03/20/20 Baclofen [Lioresal] 10 mg PO TID 12/25/19 03/20/20 HYDROcodone/APAP 10-325MG [[place] 1 tab PO BID 12/25/19 03/20/20 10-325] Melatonin 10 mg PO HS 12/25/19 03/20/20 Morphine Sulfate ER [Ms Contin] 30 mg PO BID 12/25/19 03/20/20 Ondansetron Odt [Zofran ODT] 8 mg PO Q8HR PRN 12/25/19 03/20/20 Valsartan [Diovan] 320 mg PO DAILY 12/25/19 03/20/20 busPIRone HCl [Buspar] 10 mg PO TID 12/25/19 03/20/20 Simethicone [Gas-X] 250 mg PO DAILY PRN 02/24/20 03/20/20 bisacodyL [Dulcolax] 10 mg PO BID 02/24/20 03/20/20 cloNIDine HCL [Catapres] 0.2 mg PO TID 02/24/20 03/20/20 Aspirin EC [Ecotrin Low Dose] 81 mg PO DAILY 03/20/20 03/20/20 DULoxetine HCL [Cymbalta] 30 mg PO BID 03/20/20 03/20/20 polyethylene glycoL 3350 [Miralax] 17 gm PO DAILY PRN 03/20/20 03/20/20 Previous Rx's Medication Instructions Recorded amLODIPine [Norvasc] 10 mg PO HS #30 tab 12/29/19 Cephalexin [Keflex] 500 mg PO Q6HR #40 cap 03/20/20 HYDROcodone/APAP 10-325MG [[place] 1 tab PO Q6HR PRN 2 Days #6 tab 03/20/20 10-325] Allergies Allergy/AdvReac Type Severity Reaction Status Date / Time sulfamethoxazole Allergy Itching Verified 03/20/20 21:52 [From Septra] trimethoprim [From Septra] Allergy Itching Verified 03/20/20 21:52 levofloxacin [From Levaquin] AdvReac Muscle Pain Verified 03/20/20 21:52 Review of Systems ROS Statement: Those systems with pertinent positive or pertinent negative responses have been documented in the HPI. ROS Other: All systems not noted in ROS Statement are negative. Past Medical History Past Medical History: Atrial Fibrillation, Coronary Artery Disease (CAD), CVA/TIA, Diabetes Mellitus, GERD/Reflux, Hyperlipidemia, Hypertension Additional Past Medical History / Comment(s): hx urinary retention, Nephrolithiasis, recurrent UTI, double amputation lower extremities, aka. 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 Past Anesthesia/Blood Transfusion Reactions: No Reported Reaction Additional Past Anesthesia/Blood Transfusion Reaction / Comment(s): Pt received blood in 1978-no reaction reported. Past Psychological History: Anxiety Additional Psychological History / Comment(s): She is independent. She in a bilateral AKA and gets around in a power wheelchair. She has a hospital bed. She no longer drives but takes the bus. Smoking Status: Current every day smoker Past Alcohol Use History: None Reported Additional Past Alcohol Use History / Comment(s): Pt states she started smoking at age 18 yrs and the amount she smokes varies.Smoke a pack in two days Past Drug Use History: None Reported - Past Family History Father Family Medical History: Cancer, Myocardial Infarction ([place]) Additional Family Medical History / Comment(s): Father had lung cancer-went into remission. He of a massive [place] in his 60's Mother Family Medical History: Cancer Additional Family Medical History / Comment(s): Mother of lung cancer at age 54 yrs. General Exam Limitations: physical limitation General appearance: alert, in no apparent distress Head exam: Present: atraumatic, normocephalic, normal inspection Eye exam: Present: normal appearance, PERRL, EOMI ENT exam: Present: normal exam, normal oropharynx, mucous membranes moist Neck exam: Present: normal inspection, full ROM. Absent: tenderness Respiratory exam: Present: normal lung sounds bilaterally. Absent: respiratory distress, wheezes Cardiovascular Exam: Present: regular rate, normal rhythm, normal heart sounds GI/Abdominal exam: Present: soft, tenderness (Left lower quadrant tenderness.). Absent: distended, guarding, rebound, rigid Extremities exam: Present: normal inspection, full ROM, normal capillary refill. Absent: tenderness Back exam: Present: normal inspection, full ROM, tenderness, CVA tenderness (R), CVA tenderness (L) Neurological exam: Present: alert, oriented X3 Psychiatric exam: Present: normal affect, normal mood Skin exam: Present: warm, dry, intact, normal color Course Vital Signs 03/20/20 03/20/20 03/20/20 19:37 20:26 21:12 Temperature 100.7 F H Pulse Rate 77 73 62 Respiratory 18 16 16 Rate Blood Pressure 146/89 146/80 196/101 O2 Sat by Pulse 98 96 98 Oximetry 03/20/20 03/20/20 21:53 23:31 Temperature 99.3 F Pulse Rate 64 66 Respiratory 16 16 Rate Blood Pressure 170/87 148/89 O2 Sat by Pulse 98 99 Oximetry Medical Decision Making - Medical Decision Making Patient is 64-year-old female presenting to the emergency department with a chief complaint of abdominal pain. On exam there appears to be some left-sided abdominal tenderness, left flank and bilateral CVA. MAPS obtained reveals patient was prescribed morphine pills and norco on february 27 and she out of them right now. I do suspect opioid seeking tendencies. CBC CMP is unremarkable. UA reveals elevated leukocyte esterase, white blood cells, red blood cells and nitrates. EKG reveals sinus rhythm with left axis deviation. Patient was given morphine in the ED. Will be discharged with 6 tablets of [place]. examined the patient and ordered Rocephin and morphine tablet, patient to be discharged with keflex. She is set to follow-up with primary care physician. Strict return parameters were thoroughly discussed with patient was understanding and agreeable. Case discussed physician. - Lab Data Result diagrams: 03/20/20 20:30 03/20/20 20:30 Lab Results 03/20/20 03/20/20 03/20/20 Range/Units 20:30 20:30 21:08 WBC 10.6 (3.8-10.6) k/uL RBC 5.44 H (3.80-5.40) m/uL Hgb 15.5 (11.4-16.0) gm/dL Hct 45.7 (34.0-46.0) % MCV 84.1 (80.0-100.0) fL MCH 28.5 (25.0-35.0) pg MCHC 33.9 (31.0-37.0) g/dL RDW 13.9 (11.5-15.5) % Plt Count 443 (150-450) k/uL Neutrophils % 65 % Lymphocytes % 27 % Monocytes % 5 % Eosinophils % 1 % Basophils % 1 % Neutrophils # 7.0 (1.3-7.7) k/uL Lymphocytes # 2.9 (1.0-4.8) k/uL Monocytes # 0.5 (0-1.0) k/uL Eosinophils # 0.1 (0-0.7) k/uL Basophils # 0.1 (0-0.2) k/uL Sodium 138 (137-145) mmol/L Potassium 4.0 (3.5-5.1) mmol/L Chloride 109 H (98-107) mmol/L Carbon Dioxide 22 (22-30) mmol/L Anion Gap 7 mmol/L BUN 14 (7-17) mg/dL Creatinine 0.38 L (0.52-1.04) mg/dL Est GFR (CKD-EPI)AfAm >90 (>60 ml/min/1.73 sqM) Est GFR (CKD-EPI)NonAf >90 (>60 ml/min/1.73 sqM) Glucose 110 H (74-99) mg/dL Calcium 9.3 (8.4-10.2) mg/dL Total Bilirubin 0.6 (0.2-1.3) mg/dL AST 32 (14-36) U/L ALT 26 (4-34) U/L Alkaline Phosphatase 105 (38-126) U/L Total Protein 6.8 (6.3-8.2) g/dL Albumin 3.7 (3.5-5.0) g/dL Amylase 78 (30-110) U/L Lipase 416 H (23-300) U/L Urine Color Yellow Urine Appearance Turbid H (Clear) Urine pH 6.0 (5.0-8.0) Ur Specific [place] 1.017 (1.001-1.035) Urine Protein 1+ H (Negative) Urine Glucose (UA) Negative (Negative) Urine Ketones Negative (Negative) Urine Blood Moderate H (Negative) Urine Nitrite Positive H (Negative) Urine Bilirubin Negative (Negative) Urine Urobilinogen <2.0 (<2.0) mg/dL Ur Leukocyte Esterase Large H (Negative) Urine RBC 66 H (0-5) /hpf Urine WBC >182 H (0-5) /hpf Urine WBC Clumps Many H (None) /hpf Ur Squamous Epith Cells 11 H (0-4) /hpf Urine Bacteria Moderate H (None) /hpf Urine Mucus Occasional H (None) /hpf Disposition Clinical Impression: Urinary tract infection, Abdominal pain, Flank pain Disposition: HOME SELF-CARE Condition: Fair Instructions (If sedation given, give patient instructions): Abdominal Pain (E D) Additional Instructions: Follow with her primary care physician. Take prescribed medication as directed. Do not drive or operate machinery when taking medication. Return to emergency department if symptoms worsen. Prescriptions: Cephalexin [Keflex] 500 mg PO Q6HR #40 cap HYDROcodone/APAP 10-325MG [[place] 10-325] 1 tab PO Q6HR PRN 2 Days #6 tab PRN Reason: Pain Is patient prescribed a controlled substance at d/c from ED?: Yes If prescribed controlled substance>3 days was MAPS reviewed?: Prescribed <3 Days Referrals: Arvin Aburto MD [Primary Care Provider] - 1-2 days Time of Disposition: 23:27
[2020-03-20] MEDS ORDERED: diphenhydrAMINE 50 MG/ML 1 ML VIAL IVP STA (19:49)
[2020-03-20] MEDS ORDERED: MORPHINE SULFATE 4 MG/ML SYRINGE IV STA (19:49)
[2020-03-20] MEDS ORDERED: METOCLOPRAMIDE 5 MG/ML 2 ML VIAL IVP STA (19:49)
[2020-03-20] MEDS ORDERED: SODIUM CHLORIDE 0.9% 1,000 ML IV STA (19:49)
[2020-03-20] MEDS ORDERED: ACETAMINOPHEN TAB 500 MG TAB PO STA (19:57)
[2020-03-20 20:27] VITALS: RESP 16
[2020-03-20 20:48] LABS: Basophils # (A) 0.1 k/uL (0-0.2); Basophils % (A) 1 %; Eosinophils # (A) 0.1 k/uL (0-0.7); Eosinophils % (A) 1 %; HCT 45.7 % (34.0-46.0); HGB 15.5 gm/dL (11.4-16.0); Lymphocytes # (A) 2.9 k/uL (1.0-4.8); Lymphocytes % (A) 27 %; MCH 28.5 pg (25.0-35.0); MCHC 33.9 g/dL (31.0-37.0); MCV 84.1 fL (80.0-100.0); Mean Platelet Volume 7.2; Monocytes # (A) 0.5 k/uL (0-1.0); Monocytes % (A) 5 %; Neutrophils % (A) 65 %; Platelet Count 443 k/uL (150-450); RBC 5.44 m/uL (3.80-5.40); RDW 13.9 % (11.5-15.5); WBC 10.6 k/uL (3.8-10.6)
[2020-03-20 20:58] LABS: ALT 26 U/L (4-34); AST 32 U/L (14-36); African American GFR (CKD) >90 (>60 ml/min/1.73 sqM); Albumin 3.7 g/dL (3.5-5.0); Alkaline Phosphatase 105 U/L (38-126); Amylase 78 U/L (30-110); Anion Gap 7 mmol/L; Blood Urea Nitrogen 14 mg/dL (7-17); Calcium 9.3 mg/dL (8.4-10.2); Carbon Dioxide 22 mmol/L (22-30); Chloride 109 mmol/L (98-107); Glucose 110 mg/dL (74-99); Non-African American GFR(CKD) >90 (>60 ml/min/1.73 sqM); Sodium 138 mmol/L (137-145); Total Bilirubin 0.6 mg/dL (0.2-1.3); Total Protein 6.8 g/dL (6.3-8.2)
[2020-03-20 21:31] LABS: Appearance,Urine Turbid (Clear); Bacteria,Urine Moderate /hpf; Bilirubin,Urine Negative (Negative); Blood,Urine Moderate (Negative); Color,Urine Yellow; Glucose,Urine (UA) Negative (Negative); Ketones,Urine Negative (Negative); Leukocyte Esterase,Urine Large (Negative); Mucus,Urine Occasional /hpf; Nitrite,Urine Positive (Negative); Protein,Urine 1+ (Negative); RBC,Urine 66 /hpf (0-5); Specific Gravity,Urine 1.017 (1.001-1.035); Squamous Epithelial Cell,Urine 11 /hpf (0-4); Urobilinogen,Urine <2.0 mg/dL (<2.0); WBC,Urine >182 /hpf (0-5)
[2020-03-20] MEDS ORDERED: MORPHINE SULFATE ER 30 MG TABLET PO STA (22:52)
[2020-03-20 23:32] VITALS: BP 148/89; PULSE 66; TEMP 99.3
== END 2020-03-20 23:55 | disposition home or self-care (01) ==
LOC: EC 19:25
DX: N39.0 Urinary tract infection, site not specified (principal); I48.91 Unspecified atrial fibrillation; I25.10 Atherosclerotic heart disease of native coronary artery without angina pectoris; E78.5 Hyperlipidemia, unspecified; I10 Essential (primary) hypertension; F41.9 Anxiety disorder, unspecified; F17.200 Nicotine dependence, unspecified, uncomplicated; Z79.82 Long term (current) use of aspirin; Z79.899 Other long term (current) drug therapy; Z88.1 Allergy status to other antibiotic agents; Z88.2 Allergy status to sulfonamides; Z86.73 Personal history of transient ischemic attack (TIA), and cerebral infarction without residual deficits; Z89.612 Acquired absence of left leg above knee; Z89.611 Acquired absence of right leg above knee
CPT/HCPCS: 99284; 96365; 96375 ×3; 96361 ×2; 36415; 93005; 80053; 82150; 83690; 85025; 81001; 87086; J2270; J1200; J2765; J0696

== ENCOUNTER 2020-03-22 13:22 | Observation (INO) | payer OTHER ==
[2020-03-22] MEDS ORDERED: ACETAMINOPHEN TAB 500 MG TAB PO STA (13:58)
[2020-03-22] MEDS ORDERED: SODIUM CHLORIDE 0.9% 1,000 ML IV STA (13:58)
[2020-03-22] MEDS ORDERED: MORPHINE SULFATE 4 MG/ML SYRINGE IVP STA ×2 (13:58→15:51)
--- NOTE | 2020-03-22 14:17 | ED ---
Abdominal Pain HPI - General Chief Complaint: Abdominal Pain Stated Complaint: abd pain Time Seen by Provider: 03/22/20 13:35 Source: patient Mode of arrival: EMS Limitations: physical limitation - History of Present Illness Initial Comments: Patient is a 64-year-old female, with multiple comorbidities including A. fib, diabetes, bilateral AKA, presenting to the emergency Department with complaints of increasing abdominal discomfort. Patient states she was seen in the ER 2 days ago diagnosed with a UTI. Patient states she has been taking her antib iotics as prescribed but feels like she is getting worse. She does admit to nausea. She states she is also out of her pain medications and cannot refill them until the . Patient states she does feel like she has a fever, she denies chest pain or shortness of breath. She also admits to mild diarrhea which started 2 days ago prior to the antibiotics. She states she has been hospitalized in the past for UTI requiring IV antibiotics. She states she is not taking anything for pain or fever today. She has no further complaints at this time. Upon arrival to the ER, patient is febrile to 101.3, blood pressure is elevated at 182/117, rest of vitals normal. - Related Data Home Medications Medication Instructions Recorded Confirmed ALPRAZolam [Xanax] 0.5 mg PO BID 01/20/19 03/20/20 Warfarin [Coumadin] 2 mg PO SUTUTHSA 01/20/19 03/20/20 Warfarin [Coumadin] 1 mg PO MOWEFR 10/29/19 03/20/20 Atorvastatin Calcium [Lipitor] 80 mg PO HS 12/25/19 03/20/20 Baclofen [Lioresal] 10 mg PO TID 12/25/19 03/20/20 HYDROcodone/APAP 10-325MG [[place] 1 tab PO BID 12/25/19 03/20/20 10-325] Melatonin 10 mg PO HS 12/25/19 03/20/20 Morphine Sulfate ER [Ms Contin] 30 mg PO BID 12/25/19 03/20/20 Ondansetron Odt [Zofran ODT] 8 mg PO Q8HR PRN 12/25/19 03/20/20 Valsartan [Diovan] 320 mg PO DAILY 12/25/19 03/20/20 busPIRone HCl [Buspar] 10 mg PO TID 12/25/19 03/20/20 Simethicone [Gas-X] 250 mg PO DAILY PRN 02/24/20 03/20/20 bisacodyL [Dulcolax] 10 mg PO BID 02/24/20 03/20/20 cloNIDine HCL [Catapres] 0.2 mg PO TID 02/24/20 03/20/20 Aspirin EC [Ecotrin Low Dose] 81 mg PO DAILY 03/20/20 03/20/20 DULoxetine HCL [Cymbalta] 30 mg PO BID 03/20/20 03/20/20 polyethylene glycoL 3350 [Miralax] 17 gm PO DAILY PRN 03/20/20 03/20/20 Previous Rx's Medication Instructions Recorded amLODIPine [Norvasc] 10 mg PO HS #30 tab 12/29/19 Cephalexin [Keflex] 500 mg PO Q6HR #40 cap 03/20/20 HYDROcodone/APAP 10-325MG [[place] 1 tab PO Q6HR PRN 2 Days #6 tab 03/20/20 10-325] Allergies Allergy/AdvReac Type Severity Reaction Status Date / Time sulfamethoxazole Allergy Itching Verified 03/20/20 21:52 [From Septra] trimethoprim [From Septra] Allergy Itching Verified 03/20/20 21:52 levofloxacin [From Levaquin] AdvReac Muscle Pain Verified 03/20/20 21:52 Review of Systems ROS Statement: Those systems with pertinent positive or pertinent negative responses have been documented in the HPI. ROS Other: All systems not noted in ROS Statement are negative. Past Medical History Past Medical History: Atrial Fibrillation, Coronary Artery Disease (CAD), CVA/ TIA, Diabetes Mellitus, GERD/Reflux, Hyperlipidemia, Hypertension Additional Past Medical History / Comment(s): hx urinary retention, Nephrolithiasis, recurrent UTI, double amputation lower extremities, aka. 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 Past Anesthesia/Blood Transfusion Reactions: No Reported Reaction Additional Past Anesthesia/Blood Transfusion Reaction / Comment(s): Pt received blood in 1978-no reaction reported. Past Psychological History: Anxiety Smoking Status: Current every day smoker Past Alcohol Use History: None Reported Past Drug Use History: None Reported - Past Family History Father Family Medical History: Cancer, Myocardial Infarction ([place]) Additional Family Medical History / Comment(s): Father had lung cancer-went into remission. He of a massive [place] in his 60's Mother Family Medical History: Cancer Additional Family Medical History / Comment(s): Mother of lung cancer at age 54 yrs. General Exam - General Exam Comments Initial Comments: GENERAL: Patient is nontoxic and in mild distress. HEAD: Atraumatic, normocephalic. EYES: Pupils equal round and reactive to light, extraocular movements intact, sclera anicteric, conjunctiva are normal. Eyelids were unremarkable. ENT: TMs normal, nares patent, oropharynx clear without exudates. Moist mucous membranes. NECK: Normal range of motion, supple without lymphadenopathy or JVD. LUNGS: Unlabored respirations. Breath sounds clear to auscultation bilaterally and equal. No wheezes rales or rhonchi. HEART: Regular rate and rhythm without murmurs, rubs or gallops. ABDOMEN: Lower abdominal discomfort with palpation, suprapubic. Soft, normoactive bowel sounds. No guarding, no rebound. No masses appreciated. : Deferred MUSCULOSKELETAL: Bilateral AKA, upper extremity is are normal, with adequate strength and normal range of motion, no pitting or edema. No clubbing or cyanosis. NEUROLOGICAL: Patient is alert and oriented x 3. Motor and sensory are also intact. Cranial nerves II through XII grossly intact. Symmetrical smile. Normal speech, normal gait. PSYCH: Normal mood, normal affect. SKIN: Warm, Dry, normal turgor, no rashes or lesions noted. Limitations: physical limitation Course Vital Signs 03/22/20 03/22/20 13:34 15:56 Temperature 101.3 F H 99.4 F Pulse Rate 76 65 Respiratory 18 17 Rate Blood Pressure 182/117 179/103 O2 Sat by Pulse 98 95 Oximetry Medical Decision Making - Medical Decision Making Patient is 64-year-old female, with multiple comorbidities, presenting febrile, recent UTI diagnosis. She was in the ER 2 days ago and diagnosed with UTI, currently on Keflex. She arrives afebrile at 101.3, continued suprapubic discomfort. She is also out of pain medications, currently on morphine and [place], and cannot get refilled until March 29. Patient's white count is normal at 9.8, INR is 2.0, lactic acid is 1.0. Urine shows a large amount of WBCs, bacteria. Patient does have a significant history of drug-resistant UTIs. The urine culture from 2 days ago is still pending at this time. Patient will be started on Rocephin, awaiting results of culture. Urine cultures today were also sent and are pending. We will continue with antibiotics, pain control. P atient accepted by Dr. Spaulding. Case discussed with Dr. Robert. - Lab Data Result diagrams: 03/22/20 15:00 03/22/20 15:00 Lab Results 03/22/20 03/22/20 03/22/20 Range/Units 15:00 15:00 15:00 WBC 9.8 (3.8-10.6) k/uL RBC 5.51 H (3.80-5.40) m/uL Hgb 15.6 (11.4-16.0) gm/dL Hct 46.7 H (34.0-46.0) % MCV 84.6 (80.0-100.0) fL MCH 28.2 (25.0-35.0) pg MCHC 33.3 (31.0-37.0) g/dL RDW 13.9 (11.5-15.5) % Plt Count 424 (150-450) k/uL Neutrophils % 71 % Lymphocytes % 22 % Monocytes % 4 % Eosinophils % 1 % Basophils % 1 % Neutrophils # 7.0 (1.3-7.7) k/uL Lymphocytes # 2.1 (1.0-4.8) k/uL Monocytes # 0.4 (0-1.0) k/uL Eosinophils # 0.1 (0-0.7) k/uL Basophils # 0.1 (0-0.2) k/uL PT 19.2 H (9.0-12.0) sec INR 2.0 H (<1.2) APTT 29.5 (22.0-30.0) sec Sodium (137-145) mmol/L Potassium (3.5-5.1) mmol/L Chloride (98-107) mmol/L Carbon Dioxide (22-30) mmol/L Anion Gap mmol/L BUN (7-17) mg/dL Creatinine (0.52-1.04) mg/dL Est GFR (CKD-EPI)AfAm (>60 ml/min/1.73 sqM) Est GFR (CKD-EPI)NonAf (>60 ml/min/1.73 sqM) Glucose (74-99) mg/dL Plasma Lactic Acid [place] (0.7-2.0) mmol/L Calcium (8.4-10.2) mg/dL Total Bilirubin (0.2-1.3) mg/dL AST (14-36) U/L ALT (4-34) U/L Alkaline Phosphatase (38-126) U/L Total Protein (6.3-8.2) g/dL Albumin (3.5-5.0) g/dL Urine Color Yellow Urine Appearance Cloudy H (Clear) Urine pH 5.5 (5.0-8.0) Ur Specific [place] 1.016 (1.001-1.035) Urine Protein Trace H (Negative) Urine Glucose (UA) Negative (Negative) Urine Ketones Negative (Negative) Urine Blood Small H (Negative) Urine Nitrite Negative (Negative) Urine Bilirubin Negative (Negative) Urine Urobilinogen <2.0 (<2.0) mg/dL Ur Leukocyte Esterase Large H (Negative) Urine RBC 44 H (0-5) /hpf Urine WBC 162 H (0-5) /hpf Ur Squamous Epith Cells 1 (0-4) /hpf Calcium Oxalate Crystal Rare H (None) /hpf Urine Bacteria Rare H (None) /hpf Urine Mucus Few H (None) /hpf 03/22/20 03/22/20 Range/Units 15:00 15:00 WBC (3.8-10.6) k/uL RBC (3.80-5.40) m/uL Hgb (11.4-16.0) gm/dL Hct (34.0-46.0) % MCV (80.0-100.0) fL MCH (25.0-35.0) pg MCHC (31.0-37.0) g/dL RDW (11.5-15.5) % Plt Count (150-450) k/uL Neutrophils % % Lymphocytes % % Monocytes % % Eosinophils % % Basophils % % Neutrophils # (1.3-7.7) k/uL Lymphocytes # (1.0-4.8) k/uL Monocytes # (0-1.0) k/uL Eosinophils # (0-0.7) k/uL Basophils # (0-0.2) k/uL PT (9.0-12.0) sec INR (<1.2) APTT (22.0-30.0) sec Sodium 139 (137-145) mmol/L Potassium 4.0 (3.5-5.1) mmol/L Chloride 109 H (98-107) mmol/L Carbon Dioxide 22 (22-30) mmol/L Anion Gap 8 mmol/L BUN 13 (7-17) mg/dL Creatinine 0.45 L (0.52-1.04) mg/dL Est GFR (CKD-EPI)AfAm >90 (>60 ml/min/1.73 sqM) Est GFR (CKD-EPI)NonAf >90 (>60 ml/min/1.73 sqM) Glucose 127 H (74-99) mg/dL Plasma Lactic Acid [place] 1.0 (0.7-2.0) mmol/L Calcium 9.5 (8.4-10.2) mg/dL Total Bilirubin 0.6 (0.2-1.3) mg/dL AST 25 (14-36) U/L ALT 25 (4-34) U/L Alkaline Phosphatase 121 (38-126) U/L Total Protein 7.0 (6.3-8.2) g/dL Albumin 4.0 (3.5-5.0) g/dL Urine Color Urine Appearance (Clear) Urine pH (5.0-8.0) Ur Specific [place] (1.001-1.035) Urine Protein (Negative) Urine Glucose (UA) (Negative) Urine Ketones (Negative) Urine Blood (Negative) Urine Nitrite (Negative) Urine Bilirubin (Negative) Urine Urobilinogen (<2.0) mg/dL Ur Leukocyte Esterase (Negative) Urine RBC (0-5) /hpf Urine WBC (0-5) /hpf Ur Squamous Epith Cells (0-4) /hpf Calcium Oxalate Crystal (None) /hpf Urine Bacteria (None) /hpf Urine Mucus (None) /hpf Disposition Clinical Impression: Urinary tract infection, Lower abdominal pain, Chronic pain Disposition: ADMITTED IP TO THIS HOSP Condition: Good Referrals: Arvin Aburto MD [Primary Care Provider] - 1-2 days Decision Date: 03/22/20 Decision Time: 16:37
[2020-03-22 15:25] LABS: Basophils # (A) 0.1 k/uL (0-0.2); Basophils % (A) 1 %; Eosinophils # (A) 0.1 k/uL (0-0.7); Eosinophils % (A) 1 %; HCT 46.7 % (34.0-46.0); HGB 15.6 gm/dL (11.4-16.0); Lymphocytes # (A) 2.1 k/uL (1.0-4.8); Lymphocytes % (A) 22 %; MCH 28.2 pg (25.0-35.0); MCHC 33.3 g/dL (31.0-37.0); MCV 84.6 fL (80.0-100.0); Mean Platelet Volume 7.3; Monocytes # (A) 0.4 k/uL (0-1.0); Monocytes % (A) 4 %; Neutrophils % (A) 71 %; Platelet Count 424 k/uL (150-450); RBC 5.51 m/uL (3.80-5.40); RDW 13.9 % (11.5-15.5); WBC 9.8 k/uL (3.8-10.6)
[2020-03-22 15:33] LABS: Partial Thromboplastin Time 29.5 sec (22.0-30.0); Prothrombin Time 19.2 sec (9.0-12.0)
[2020-03-22 15:35] LABS: ALT 25 U/L (4-34); AST 25 U/L (14-36); African American GFR (CKD) >90 (>60 ml/min/1.73 sqM); Alkaline Phosphatase 121 U/L (38-126); Anion Gap 8 mmol/L; Blood Urea Nitrogen 13 mg/dL (7-17); Calcium 9.5 mg/dL (8.4-10.2); Carbon Dioxide 22 mmol/L (22-30); Chloride 109 mmol/L (98-107); Glucose 127 mg/dL (74-99); Non-African American GFR(CKD) >90 (>60 ml/min/1.73 sqM); Sodium 139 mmol/L (137-145); Total Bilirubin 0.6 mg/dL (0.2-1.3)
[2020-03-22] MEDS ORDERED: MORPHINE SULFATE ER 30 MG TABLET PO STA (15:40)
[2020-03-22] MEDS ORDERED: ONDANSETRON 4 MG/2 ML VIAL IVP STA (15:40)
[2020-03-22 16:17] LABS: Appearance,Urine Cloudy (Clear); Bacteria,Urine Rare /hpf; Bilirubin,Urine Negative (Negative); Blood,Urine Small (Negative); Calcium Oxalate Crystals,Urine Rare /hpf; Color,Urine Yellow; Glucose,Urine (UA) Negative (Negative); Ketones,Urine Negative (Negative); Leukocyte Esterase,Urine Large (Negative); Mucus,Urine Few /hpf; Nitrite,Urine Negative (Negative); PH, Urine 5.5 (5.0-8.0); Protein,Urine Trace (Negative); RBC,Urine 44 /hpf (0-5); Specific Gravity,Urine 1.016 (1.001-1.035); Squamous Epithelial Cell,Urine 1 /hpf (0-4); Urobilinogen,Urine <2.0 mg/dL (<2.0); WBC,Urine 162 /hpf (0-5)
[2020-03-22] MEDS ORDERED: NALOXONE 0.4 MG/ML 1 ML VIAL IV PRN (17:03)
[2020-03-22] MEDS ORDERED: ONDANSETRON 4 MG/2 ML VIAL IVP PRN (17:03)
[2020-03-22] MEDS: SODIUM CHLORIDE 0.9% 1,000 ML IV SCH (17:42)
[2020-03-22] MEDS: HYDROcodone/APAP 10-325MG 1 EACH TAB PO PRN (17:46)
[2020-03-22] MEDS ORDERED: amLODIPine 10 MG TAB PO SCH (21:00)
[2020-03-22] MEDS ORDERED: ATORVASTATIN 80 MG TAB PO SCH (21:15)
[2020-03-22] MEDS ORDERED: MELATONIN 5 MG TABLET PO SCH (21:15)
[2020-03-22] MEDS: BACLOFEN 10 MG TAB PO SCH (21:29)
[2020-03-22] MEDS: MORPHINE SULFATE ER 30 MG TABLET PO SCH (21:30)
[2020-03-22] MEDS: ALPRAZolam 0.5 MG TAB PO SCH (21:31)
[2020-03-22] MEDS ORDERED: ONDANSETRON ODT 4 MG TAB PO PRN (22:00)
[2020-03-22] MEDS: busPIRone HCl 10 MG TAB PO SCH (22:33)
[2020-03-22] MEDS: cloNIDine HCL 0.2 MG TAB PO SCH (22:33)
[2020-03-23] MEDS: HYDROcodone/APAP 10-325MG 1 EACH TAB PO PRN ×3 (02:03→14:02)
[2020-03-23 06:03] LABS: Basophils # (A) 0.1 k/uL (0-0.2); Basophils % (A) 1 %; Eosinophils # (A) 0.4 k/uL (0-0.7); Eosinophils % (A) 3 %; HCT 45.6 % (34.0-46.0); HGB 14.5 gm/dL (11.4-16.0); Lymphocytes # (A) 5.5 k/uL (1.0-4.8); Lymphocytes % (A) 46 %; MCH 27.9 pg (25.0-35.0); MCHC 31.9 g/dL (31.0-37.0); MCV 87.6 fL (80.0-100.0); Mean Platelet Volume 7.4; Monocytes # (A) 0.7 k/uL (0-1.0); Monocytes % (A) 6 %; Neutrophils # (A) 5.1 k/uL (1.3-7.7); Neutrophils % (A) 42 %; Platelet Count 386 k/uL (150-450); RBC 5.21 m/uL (3.80-5.40)
[2020-03-23 06:27] LABS: ALT 22 U/L (4-34); African American GFR (CKD) >90 (>60 ml/min/1.73 sqM); Albumin 3.3 g/dL (3.5-5.0); Anion Gap 8 mmol/L; Blood Urea Nitrogen 15 mg/dL (7-17); Calcium 8.7 mg/dL (8.4-10.2); Carbon Dioxide 17 mmol/L (22-30); Chloride 110 mmol/L (98-107); Glucose 114 mg/dL (74-99); Non-African American GFR(CKD) >90 (>60 ml/min/1.73 sqM); Sodium 135 mmol/L (137-145); Total Bilirubin 0.5 mg/dL (0.2-1.3); Total Protein 6.2 g/dL (6.3-8.2)
[2020-03-23 07:05] LABS: AST 34 U/L (14-36); Alkaline Phosphatase 80 U/L (38-126); Potassium 4.4 mmol/L (3.5-5.1)
[2020-03-23] MEDS: busPIRone HCl 10 MG TAB PO SCH (08:10)
[2020-03-23] MEDS: ALPRAZolam 0.5 MG TAB PO SCH (08:10)
[2020-03-23] MEDS: cloNIDine HCL 0.2 MG TAB PO SCH (08:10)
[2020-03-23] MEDS: BACLOFEN 10 MG TAB PO SCH (08:10)
[2020-03-23] MEDS: MORPHINE SULFATE ER 30 MG TABLET PO SCH ×2 (08:11→14:58)
[2020-03-23] MEDS: SODIUM CHLORIDE 0.9% 1,000 ML IV SCH (08:14)
[2020-03-23 08:15] VITALS: BP 159/62; PULSE 62; RESP 14; TEMP 98.2
[2020-03-23] MEDS ORDERED: DULoxetine HCL 30 MG CAPSULE.DR PO SCH (09:00)
[2020-03-23] MEDS ORDERED: ASPIRIN 81 MG PO SCH (09:00)
[2020-03-23] MEDS ORDERED: polyethylene glycoL 3350 17 GM POWD.PACK PO PRN (09:00)
[2020-03-23] MEDS ORDERED: VALSARTAN 160 MG TAB PO SCH (09:00)
[2020-03-23] MEDS ORDERED: SIMETHICONE 80 MG CHEWABLE PO PRN (09:00)
[2020-03-23] MEDS ORDERED: bisacodyL 5 MG TABLET.DR PO SCH (09:00)
--- NOTE | 2020-03-23 09:48 | P.HPIM ---
History of Present Illness H&P Date: 03/23/20 Chief Complaint: lower back pain This is 64 years old female with past medical history significant for chronic chronic pain syndrome status post bilateral above-knee amputation presents to the hospital with worsening back pain and dysuria. Patient was treated with antibiotics outpatient and failed and had recurrent symptoms was started on Keflex 500 every 6 hours by her primary care physician patient continued to have dysuria and lower back pain which is different than her chronic back pain that she takes [place] and morphine at home on regular basis and stated that the only thing that works is IV pain medication including morphine and Dilaudid. Patient is denying chest pain shortness breath nausea vomiting dumping dizziness lightheadedness or blurry vision. Patient denied any fever chills. Patient had history of kidney stones and stated that her urine has been yellow in color. Patient lives at home independently. Patient is denying tobacco alcohol or drug abuse Review of Systems All 14 systems reviewed and negative except as above Past Medical History Past Medical History: Atrial Fibrillation, Coronary Artery Disease (CAD), CVA/TIA, Diabetes Mellitus, GERD/Reflux, Hyperlipidemia, Hypertension Additional Past Medical History / Comment(s): hx urinary retention, Nephrolithiasis, recurrent UTI, double amputation lower extremities, aka. 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 Past Anesthesia/Blood Transfusion Reactions: No Reported Reaction Additional Past Anesthesia/Blood Transfusion Reaction / Comment(s): Pt received blood in 1978-no reaction reported. Past Psychological History: Anxiety Additional Psychological History / Comment(s): She is independent. She in a bilateral AKA and gets around in a power wheelchair. She has a hospital bed. She no longer drives but takes the bus. Smoking Status: Current every day smoker Past Alcohol Use History: None Reported Additional Past Alcohol Use History / Comment(s): Pt states she started smoking at age 18 yrs and the amount she smokes varies.Smoke a pack in two days Past Drug Use History: None Reported - Past Family History Father Family Medical History: Cancer, Myocardial Infarction ([place]) Additional Family Medical History / Comment(s): Father had lung cancer-went into remission. He of a massive [place] in his 60's Mother Family Medical History: Cancer Additional Family Medical History / Comment(s): Mother of lung cancer at age 54 yrs. Medications and Allergies Home Medications Medication Instructions Recorded Confirmed Type ALPRAZolam [Xanax] 0.5 mg PO BID 01/20/19 03/22/20 History Warfarin [Coumadin] 2 mg PO SUTUTHSA 01/20/19 03/22/20 History Warfarin [Coumadin] 1 mg PO MOWEFR 10/29/19 03/22/20 History Atorvastatin Calcium [Lipitor] 80 mg PO HS 12/25/19 03/22/20 History Baclofen [Lioresal] 10 mg PO TID 12/25/19 03/22/20 History Melatonin 10 mg PO HS 12/25/19 03/22/20 History Morphine Sulfate ER [Ms Contin] 30 mg PO BID 12/25/19 03/22/20 History Ondansetron Odt [Zofran ODT] 8 mg PO Q8HR PRN 12/25/19 03/22/20 History Valsartan [Diovan] 320 mg PO DAILY 12/25/19 03/22/20 History busPIRone HCl [Buspar] 10 mg PO TID 12/25/19 03/22/20 History amLODIPine [Norvasc] 10 mg PO HS #30 tab 12/29/19 03/22/20 Rx Simethicone [Gas-X] 250 mg PO DAILY PRN 02/24/20 03/22/20 History bisacodyL [Dulcolax] 10 mg PO BID 02/24/20 03/22/20 History cloNIDine HCL [Catapres] 0.2 mg PO TID 02/24/20 03/22/20 History Aspirin EC [Ecotrin Low Dose] 81 mg PO DAILY 03/20/20 03/22/20 History Cephalexin [Keflex] 500 mg PO Q6HR #40 cap 03/20/20 03/22/20 Rx DULoxetine HCL [Cymbalta] 30 mg PO BID 03/20/20 03/22/20 History polyethylene glycoL 3350 [Miralax] 17 gm PO DAILY PRN 03/20/20 03/22/20 History HYDROcodone/APAP 10-325MG [[place] 1 tab PO BID 03/22/20 03/22/20 History 10-325] Cefdinir [Omnicef] 300 mg PO Q12HR #0 capsule 03/23/20 Rx Allergies Allergy/AdvReac Type Severity Reaction Status Date / Time sulfamethoxazole Allergy Itching Verified 03/22/20 17:30 [From Septra] trimethoprim [From Septra] Allergy Itching Verified 03/22/20 17:30 [facility] AdvReac Muscle Pain Verified 03/22/20 17:30 Physical Exam Vitals: Vital Signs Temp Pulse Pulse Resp BP BP Pulse Ox 03/23/20 08:15 98.2 F 62 14 159/62 98 03/23/20 03:00 97.6 F 58 L 18 106/70 97 03/22/20 21:00 98.9 F 68 18 155/79 96 03/22/20 18:10 149/86 03/22/20 18:05 98.6 F 64 18 164/94 97 03/22/20 15:56 99.4 F 65 17 179/103 95 03/22/20 13:34 101.3 F H 76 18 182/117 98 Intake and Output 03/22/20 03/23/20 03/23/20 22:59 06:59 14:59 Intake Total 400 600 Balance 400 600 Intake: Oral 400 600 Other: Voiding Method Bedpan Bedpan Bedpan # Voids 1 1 1 Weight 73.5 kg Lungs clear to auscultation bilaterally Heart normal S1-S2 Abdomen soft no tenderness positive bowel sounds Lower extremity bilateral above-knee amputation Skin no rash Psych alert and oriented 4 Lumbar spine area [place] tenderness bilaterally no bruises or swelling noted Results CBC & Chem 7: 03/23/20 05:35 03/23/20 05:35 Labs: Abnormal Lab Results - Last 24 Hours (Table) 03/22/20 03/22/20 03/22/20 Range/Units 15:00 15:00 15:00 WBC (3.8-10.6) k/uL RBC 5.51 H (3.80-5.40) m/uL Hct 46.7 H (34.0-46.0) % Lymphocytes # (1.0-4.8) k/uL PT 19.2 H (9.0-12.0) sec INR 2.0 H (<1.2) Sodium (137-145) mmol/L Chloride (98-107) mmol/L Carbon Dioxide (22-30) mmol/L Creatinine (0.52-1.04) mg/dL Glucose (74-99) mg/dL Total Protein (6.3-8.2) g/dL Albumin (3.5-5.0) g/dL Urine Appearance Cloudy H (Clear) Urine Protein Trace H (Negative) Urine Blood Small H (Negative) Ur Leukocyte Esterase Large H (Negative) Urine RBC 44 H (0-5) /hpf Urine WBC 162 H (0-5) /hpf Calcium Oxalate Crystal Rare H (None) /hpf Urine Bacteria Rare H (None) /hpf Urine Mucus Few H (None) /hpf 03/22/20 03/23/20 03/23/20 Range/Units 15:00 05:35 05:35 WBC 12.0 H (3.8-10.6) k/uL RBC (3.80-5.40) m/uL Hct (34.0-46.0) % Lymphocytes # 5.5 H (1.0-4.8) k/uL PT (9.0-12.0) sec INR (<1.2) Sodium 135 L (137-145) mmol/L Chloride 109 H 110 H (98-107) mmol/L Carbon Dioxide 17 L (22-30) mmol/L Creatinine 0.45 L 0.43 L (0.52-1.04) mg/dL Glucose 127 H 114 H (74-99) mg/dL Total Protein 6.2 L (6.3-8.2) g/dL Albumin 3.3 L (3.5-5.0) g/dL Urine Appearance (Clear) Urine Protein (Negative) Urine Blood (Negative) Ur Leukocyte Esterase (Negative) Urine RBC (0-5) /hpf Urine WBC (0-5) /hpf Calcium Oxalate Crystal (None) /hpf Urine Bacteria (None) /hpf Urine Mucus (None) /hpf Microbiology - Last 24 Hours (Table) 08/21/20 15:00 Urine Culture - Preliminary Urine,Voided Thrombosis Risk Factor Assmnt - Choose All That Apply Each Factor Represents 1 point: Medical pt on bed rest, Obesity (BMI >25) Each Risk Factor Represents 2 Points: Age 61-74 years, Patient confined to bed Other congenital or acquired thrombophilia - If yes, enter type in comment: No Thrombosis Risk Factor Assessment Total Risk Factor Score: 6 Thrombosis Risk Factor Assessment Level: High Risk Assessment and Plan Assessment: 1. Recurrent urinary tract infection. Patient is a symptomatic, afebrile, no nausea vomiting and tolerating diet. Patient failed on Keflex has ALLERGY to Bactrim and Levaquin and I would like to start patients on Ceftin year 300 mg twice daily weight on culture results and follow-up with primary care physician outpatient within 2 days did encourage oral intake. 2. Subjective fever patient continued to be afebrile during this hospital stay with mild leukocytosis but I would like to have patient follow-up outpatient and repeat CBC in 2-3 days with her primary care physician. 3. Chronic back pain. Could be exacerbated by urinary tract infection. Patient to continue taking [place] and morphine at home home dose and I would like to avoid IV pain medication during this hospital stay. Patient understands that she needs to follow-up with her pain management closely and be compliant with the contract. 4. Diabetes mellitus. Continue home medication. 5. Hypertension. Fairly controlled. 6. Anxiety and depression. Continue home medication. 7. Peripheral arterial disease. Continue evidence-based medicine. 8. Atrial fibrillation. Heart rate is controlled INR was therapeutic continue Coumadin. 9. Plan discussed with patient and nursing staff and oil field caser to arrange for discharge today and follow-up with primary care physician in 2-3 days.
--- NOTE | 2020-03-23 09:50 | P.DS ---
Providers Date of admission: 03/22/20 17:15 Expected date of discharge: 03/23/20 Attending physician: Pavel Spaulding Consults: 03/22/20 17:03 Consult Physician Stat Consulting Provider: Rush Doyle Consult Reason/Comments: UTI, fever, hx of multiple resistant Do you want consulting provider notified?: Yes Primary care physician: Arvin Aburto MD Hospital Course: 64 years old female presented with urinary tract infection and subjective fever patient was treated with IV Rocephin symptoms improved and patient was asking for IV pain medication on the top of her scheduled morphine and [place] that she takes at home orally. Patient counseled regarding medication adherence need for close follow-up with her primary care physician and follow up on urine culture results as patient had history of ESBL in the past. Patient was discharged in stable condition after arrangement by behavioral health case manager Patient Condition at Discharge: Good Plan - Discharge Summary Discharge Rx Participant: Yes New Discharge Prescriptions: New Cefdinir [Omnicef] 300 mg PO Q12HR #0 capsule No Action Warfarin [Coumadin] 2 mg PO SUTUTHSA ALPRAZolam [Xanax] 0.5 mg PO BID Warfarin [Coumadin] 1 mg PO MOWEFR Valsartan [Diovan] 320 mg PO DAILY Morphine Sulfate ER [Ms Contin] 30 mg PO BID Ondansetron Odt [Zofran ODT] 8 mg PO Q8HR PRN PRN Reason: Nausea And Vomiting busPIRone HCl [Buspar] 10 mg PO TID Baclofen [Lioresal] 10 mg PO TID Atorvastatin Calcium [Lipitor] 80 mg PO HS Melatonin 10 mg PO HS amLODIPine [Norvasc] 10 mg PO HS #30 tab Simethicone [Gas-X] 250 mg PO DAILY PRN PRN Reason: gas relief cloNIDine HCL [Catapres] 0.2 mg PO TID bisacodyL [Dulcolax] 10 mg PO BID polyethylene glycoL 3350 [Miralax] 17 gm PO DAILY PRN PRN Reason: Constipation DULoxetine HCL [Cymbalta] 30 mg PO BID Aspirin EC [Ecotrin Low Dose] 81 mg PO DAILY Cephalexin [Keflex] 500 mg PO Q6HR #40 cap HYDROcodone/APAP 10-325MG [[place] 10-325] 1 tab PO BID Discharge Medication List ALPRAZolam [Xanax] 0.5 mg PO BID 01/20/19 [History] Warfarin [Coumadin] 2 mg PO SUTUTHSA 01/20/19 [History] Warfarin [Coumadin] 1 mg PO MOWEFR 10/29/19 [History] Atorvastatin Calcium [Lipitor] 80 mg PO HS 12/25/19 [History] Baclofen [Lioresal] 10 mg PO TID 12/25/19 [History] Melatonin 10 mg PO HS 12/25/19 [History] Morphine Sulfate ER [Ms Contin] 30 mg PO BID 12/25/19 [History] Ondansetron Odt [Zofran ODT] 8 mg PO Q8HR PRN 12/25/19 [History] Valsartan [Diovan] 320 mg PO DAILY 12/25/19 [History] busPIRone HCl [Buspar] 10 mg PO TID 12/25/19 [History] amLODIPine [Norvasc] 10 mg PO HS #30 tab 12/29/19 [Rx] Simethicone [Gas-X] 250 mg PO DAILY PRN 02/24/20 [History] bisacodyL [Dulcolax] 10 mg PO BID 02/24/20 [History] cloNIDine HCL [Catapres] 0.2 mg PO TID 02/24/20 [History] Aspirin EC [Ecotrin Low Dose] 81 mg PO DAILY 03/20/20 [History] Cephalexin [Keflex] 500 mg PO Q6HR #40 cap 03/20/20 [Rx] DULoxetine HCL [Cymbalta] 30 mg PO BID 03/20/20 [History] polyethylene glycoL 3350 [Miralax] 17 gm PO DAILY PRN 03/20/20 [History] HYDROcodone/APAP 10-325MG [[place] 10-325] 1 tab PO BID 03/22/20 [History] Cefdinir [Omnicef] 300 mg PO Q12HR #0 capsule 03/23/20 [Rx] Follow up Appointment(s)/Referral(s): Arvin Aburto MD [Primary Care Provider] - 1-2 days Patient Instructions/Handouts: Urinary Tract Infection in Women ([place])
[2020-03-23 14:44] VITALS: BMI 87.9
== END 2020-03-23 15:01 | disposition home or self-care (01) ==
LOC: EC 13:22 → 1SOBS 17:15
PROVIDERS: ADMIT Internal Medicine Geriatric Medicine; ATTEND Internal Medicine Geriatric Medicine
DX: N39.0 Urinary tract infection, site not specified (principal); I48.91 Unspecified atrial fibrillation; E11.51 Type 2 diabetes mellitus with diabetic peripheral angiopathy without gangrene; Z89.611 Acquired absence of right leg above knee; Z89.612 Acquired absence of left leg above knee; R19.7 Diarrhea, unspecified; R11.2 Nausea with vomiting, unspecified; I25.10 Atherosclerotic heart disease of native coronary artery without angina pectoris; K21.9 Gastro-esophageal reflux disease without esophagitis; E78.5 Hyperlipidemia, unspecified; I10 Essential (primary) hypertension; R33.9 Retention of urine, unspecified; F41.9 Anxiety disorder, unspecified; G89.4 Chronic pain syndrome; M54.5 Low back pain; F17.210 Nicotine dependence, cigarettes, uncomplicated; E66.9 Obesity, unspecified; Z68.45 Body mass index [BMI] 70 or greater, adult; Z74.01 Bed confinement status; F32.9 Major depressive disorder, single episode, unspecified; K59.00 Constipation, unspecified; Z79.01 Long term (current) use of anticoagulants; Z79.899 Other long term (current) drug therapy; Z79.891 Long term (current) use of opiate analgesic; Z79.82 Long term (current) use of aspirin; Z88.2 Allergy status to sulfonamides; Z88.1 Allergy status to other antibiotic agents; Z87.440 Personal history of urinary (tract) infections; Z86.73 Personal history of transient ischemic attack (TIA), and cerebral infarction without residual deficits; Z87.442 Personal history of urinary calculi; Z16.24 Resistance to multiple antibiotics; Z87.76 Personal history of (corrected) congenital malformations of integument, limbs and musculoskeletal system; Z90.49 Acquired absence of other specified parts of digestive tract; Z90.710 Acquired absence of both cervix and uterus; Z98.1 Arthrodesis status; Z86.19 Personal history of other infectious and parasitic diseases; Z82.49 Family history of ischemic heart disease and other diseases of the circulatory system; Z80.1 Family history of malignant neoplasm of trachea, bronchus and lung
CPT/HCPCS: 96366; 96376 ×2; 96361; 96365; 96375; 99285; 36415; 80053 ×2; 83605; 85025 ×2; 85610; 85730; 81001; 87040; 87086; 87077; 87186; G0378 ×2; J2270; J2405 ×2; J0696 ×2

== ENCOUNTER 2020-03-24 21:07 | Emergency (ER) | payer OTHER ==
[2020-03-24 21:14] VITALS: TEMP 98.1
[2020-03-24 22:04] LABS: Basophils # (A) 0.1 k/uL (0-0.2); Basophils % (A) 1 %; Eosinophils # (A) 0.2 k/uL (0-0.7); Eosinophils % (A) 2 %; HCT 43.5 % (34.0-46.0); HGB 14.5 gm/dL (11.4-16.0); Lymphocytes % (A) 30 %; MCHC 33.3 g/dL (31.0-37.0); MCV 84.3 fL (80.0-100.0); Mean Platelet Volume 7.9; Monocytes # (A) 0.5 k/uL (0-1.0); Monocytes % (A) 5 %; Neutrophils # (A) 6.1 k/uL (1.3-7.7); Neutrophils % (A) 61 %; Platelet Count 362 k/uL (150-450); RBC 5.16 m/uL (3.80-5.40)
[2020-03-24] MEDS ORDERED: HYDROmorphone 0.5 MG/0.5 ML SYRINGE IVP STA (22:06)
[2020-03-24 22:13] LABS: ALT 22 U/L (4-34); African American GFR (CKD) >90 (>60 ml/min/1.73 sqM); Albumin 3.5 g/dL (3.5-5.0); Anion Gap 8 mmol/L; Blood Urea Nitrogen 12 mg/dL (7-17); Calcium 8.9 mg/dL (8.4-10.2); Carbon Dioxide 19 mmol/L (22-30); Chloride 110 mmol/L (98-107); Glucose 100 mg/dL (74-99); Non-African American GFR(CKD) >90 (>60 ml/min/1.73 sqM); Sodium 137 mmol/L (137-145); Total Bilirubin 0.5 mg/dL (0.2-1.3); Total Protein 6.3 g/dL (6.3-8.2)
[2020-03-24 22:14] LABS: AST 28 U/L (14-36); Alkaline Phosphatase 94 U/L (38-126)
--- NOTE | 2020-03-24 23:10 | CT ---
EXAMINATION TYPE: CT abdomen pelvis w con DATE OF EXAM: 03/24/2020 COMPARISON: 02/25/2020 HISTORY: Abd Pain CT DLP: 1494.70 mGycm Automated exposure control for dose reduction was used. CONTRAST: Performed with IV Contrast, patient injected with 100 mL of Isovue 300. Heart is enlarged. There is no pericardial effusion. Lung bases are clear of consolidation. There is no pleural effusion. Liver spleen pancreas stomach appear intact. Bile ducts are not dilated. There are clips from cholecy stectomy. There is no adrenal mass. The right kidney shows cortical thinning. There is 2 cm cortical cyst upper pole right kidney. There is 1 cm calculus lower pole right kidney. Left kidney shows compensatory hy pertrophy. There is no hydronephrosis. Ureters are not dilated. There is some deformity lower pole le ft kidney. This is consistent with scarring and atrophy. There is no retroperitoneal adenopathy. Abdo zoraida aorta is atheromatous. There is narrowing of the lower abdominal aorta and the lumen is 6 mm. T here is severe stenosis of the proximal right common iliac artery. Bladder distends smoothly. There is no inguinal hernia. There is no free fluid in the pelvis. There i s hysterectomy. There is no evidence of pelvic mass. There is no mesenteric edema. There is no ascites or free air. There is no bowel obstruction. Appendi x is not seen. There is no sign of thickened appendix. Lumbar spine is intact. There is no compressio n fracture. The bony pelvis is intact. There is mild thoracolumbar dextroscoliosis. There is some def ormity of the left femoral neck consistent with hip dysplasia. I see no hip fracture. IMPRESSION: Cardiomegaly. There is stenosis of the lower abdominal aorta and the right common iliac artery. Atherosclerotic vas cular disease. Cortical thinning lower pole left kidney and extensive cortical thinning of the right kidney consiste nt with scarring and atrophy. This could be sequela of chronic pyelonephritis. There is nonobstructin g large calculus lower pole right kidney. Deformity of the left proximal femur consistent with hip dysplasia. Old subcapital fracture left femu r is possible. There is clearing of the dilated bile ducts compared to old exam. Bile ducts appear normal in size po st cholecystectomy.
--- NOTE | 2020-03-24 23:45 | ED ---
Abdominal Pain HPI - General Chief Complaint: Abdominal Pain Stated Complaint: UTI Time Seen by Provider: 03/24/20 21:19 Source: patient, EMS Mode of arrival: EMS - History of Present Illness Initial Comments: 64-year-old female with extensive PMH including chronic pain/UTIs presenting today for chief complaint of dysuria. Patient states that she has had dysuria and midline abdominal pain because she has UTI. Patient states she is out of her extended release morphine and needs more. Patient states that she actually has not even filled the prescription for Keflex she states oral antibiotics do not work for her. States she has had some back pain, and has history of kidney stones. Patient denies any fevers. Patient denies nausea, vomiting or additional complaints. Patient appears well nontoxic in no acute distress. - Related Data Home Medications Medication Instructions Recorded Confirmed ALPRAZolam [Xanax] 0.5 mg PO BID 01/20/19 03/22/20 Warfarin [Coumadin] 2 mg PO SUTUTHSA 01/20/19 03/22/20 Warfarin [Coumadin] 1 mg PO MOWEFR 10/29/19 03/22/20 Atorvastatin Calcium [Lipitor] 80 mg PO HS 12/25/19 03/22/20 Baclofen [Lioresal] 10 mg PO TID 12/25/19 03/22/20 Melatonin 10 mg PO HS 12/25/19 03/22/20 Morphine Sulfate ER [Ms Contin] 30 mg PO BID 12/25/19 03/22/20 Ondansetron Odt [Zofran ODT] 8 mg PO Q8HR PRN 12/25/19 03/22/20 Valsartan [Diovan] 320 mg PO DAILY 12/25/19 03/22/20 busPIRone HCl [Buspar] 10 mg PO TID 12/25/19 03/22/20 Simethicone [Gas-X] 250 mg PO DAILY PRN 02/24/20 03/22/20 bisacodyL [Dulcolax] 10 mg PO BID 02/24/20 03/22/20 cloNIDine HCL [Catapres] 0.2 mg PO TID 02/24/20 03/22/20 Aspirin EC [Ecotrin Low Dose] 81 mg PO DAILY 03/20/20 03/22/20 DULoxetine HCL [Cymbalta] 30 mg PO BID 03/20/20 03/22/20 polyethylene glycoL 3350 [Miralax] 17 gm PO DAILY PRN 03/20/20 03/22/20 HYDROcodone/APAP 10-325MG [[place] 1 tab PO BID 03/22/20 03/22/20 10-325] Previous Rx's Medication Instructions Recorded amLODIPine [Norvasc] 10 mg PO HS #30 tab 12/29/19 Cephalexin [Keflex] 500 mg PO Q6HR #40 cap 03/20/20 Cefdinir [Omnicef] 300 mg PO Q12HR #0 capsule 03/23/20 Allergies Allergy/AdvReac Type Severity Reaction Status Date / Time sulfamethoxazole Allergy Itching Verified 03/24/20 21:15 [From Septra] trimethoprim [From Septra] Allergy Itching Verified 03/24/20 21:15 levofloxacin [From Levaquin] AdvReac Muscle Pain Verified 03/24/20 21:15 Review of Systems ROS Statement: Those systems with pertinent positive or pertinent negative responses have been documented in the HPI. ROS Other: All systems not noted in ROS Statement are negative. Past Medical History Past Medical History: Atrial Fibrillation, Coronary Artery Disease (CAD), CVA/TIA, Diabetes Mellitus, GERD/Reflux, Hyperlipidemia, Hypertension Additional Past Medical History / Comment(s): hx urinary retention, Nephrolithiasis, recurrent UTI, double amputation lower extremities, aka. 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 Past Anesthesia/Blood Transfusion Reactions: No Reported Reaction Additional Past Anesthesia/Blood Transfusion Reaction / Comment(s): Pt received blood in 1978-no reaction reported. Past Psychological History: Anxiety Smoking Status: Current every day smoker Past Alcohol Use History: None Reported Past Drug Use History: None Reported - Past Family History Father Family Medical History: Cancer, Myocardial Infarction ([place]) Additional Family Medical History / Comment(s): Father had lung cancer-went into remission. He of a massive [place] in his 60's Mother Family Medical History: Cancer Additional Family Medical History / Comment(s): Mother of lung cancer at ag e 54 yrs. General Exam - General Exam Comments Initial Comments: General: The patient is awake and alert, in no distress Eye: Pupils are equal, round and reactive to light, extra-ocular movements are intact. No nystagmus. There is normal conjunctiva bilaterally. No signs of icterus. Ears, nose, mouth and throat: There are moist mucous membranes and no oral lesions. Neck: The neck is supple, there is no tenderness or JVD. Cardiovascular: There is a regular rate and rhythm. No murmur, rub or gallop is appreciated. Respiratory: Lungs are clear to auscultation, respirations are non-labored, breath sounds are equal. No wheezes, stridor, rales, or rhonchi. Gastrointestinal: Soft, non-distended, non-tender abdomen without masses or organomegaly noted. There is no rebound or guarding present. Musculoskeletal: B/l above knee amputations. Normal ROM, no tenderness. Strength 5/5. Sensation intact. Pulses equal bilaterally 2+. Neurological: A&O x 3. CN II-XII intact grossly, There are no obvious motor or sensory deficits. Coordination appears grossly intact. Speech is normal. Skin: Skin is warm and dry and no rashes or lesions are noted. Psychiatric: Cooperative, appropriate mood & affect, normal judgment. Course Vital Signs 03/24/20 03/25/20 21:08 01:33 Temperature 98.1 F Pulse Rate 64 60 Respiratory 18 16 Rate Blood Pressure 181/84 152/105 O2 Sat by Pulse 97 98 Oximetry Medical Decision Making - Medical Decision Making 64yo female well known to our ER. Out of pain medications at home, requesting meds in the ER. Did not initiated her outpatient antibiotics, reviewed culture and sensitivities. Bacteria appears susceptible to Cephalosporins. (reviewed with attending Hoang Crook). At this time after seeing improvement of labs, patient nontoxic in appearance. No obstructing stone and improvement of WBC. Patient will be discharged with PCP f/u. Dr. crook agreeable to care plan. - Lab Data Result diagrams: 03/24/20 21:36 03/24/20 21:36 Lab Results 03/24/20 03/24/20 03/24/20 Range/Units 21:36 21:36 23:35 WBC 10.0 (3.8-10.6) k/uL RBC 5.16 (3.80-5.40) m/uL Hgb 14.5 (11.4-16.0) gm/dL Hct 43.5 (34.0-46.0) % MCV 84.3 (80.0-100.0) fL MCH 28.0 (25.0-35.0) pg MCHC 33.3 (31.0-37.0) g/dL RDW 14.0 (11.5-15.5) % Plt Count 362 (150-450) k/uL Neutrophils % 61 % Lymphocytes % 30 % Monocytes % 5 % Eosinophils % 2 % Basophils % 1 % Neutrophils # 6.1 (1.3-7.7) k/uL Lymphocytes # 3.0 (1.0-4.8) k/uL Monocytes # 0.5 (0-1.0) k/uL Eosinophils # 0.2 (0-0.7) k/uL Basophils # 0.1 (0-0.2) k/uL Sodium 137 (137-145) mmol/L Potassium 4.0 (3.5-5.1) mmol/L Chloride 110 H (98-107) mmol/L Carbon Dioxide 19 L (22-30) mmol/L Anion Gap 8 mmol/L BUN 12 (7-17) mg/dL Creatinine 0.39 L (0.52-1.04) mg/dL Est GFR (CKD-EPI)AfAm >90 (>60 ml/min/1.73 sqM) Est GFR (CKD-EPI)NonAf >90 (>60 ml/min/1.73 sqM) Glucose 100 H (74-99) mg/dL Calcium 8.9 (8.4-10.2) mg/dL Total Bilirubin 0.5 (0.2-1.3) mg/dL AST 28 (14-36) U/L ALT 22 (4-34) U/L Alkaline Phosphatase 94 (38-126) U/L Total Protein 6.3 (6.3-8.2) g/dL Albumin 3.5 (3.5-5.0) g/dL Urine Color Yellow Urine Appearance Cloudy H (Clear) Urine pH 5.5 (5.0-8.0) Ur Specific [place] 1.032 (1.001-1.035) Urine Protein Negative (Negative) Urine Glucose (UA) Negative (Negative) Urine Ketones Negative (Negative) Urine Blood Trace H (Negative) Urine Nitrite Negative (Negative) Urine Bilirubin Negative (Negative) Urine Urobilinogen <2.0 (<2.0) mg/dL Ur Leukocyte Esterase Large H (Negative) Urine RBC 8 H (0-5) /hpf Urine WBC 168 H (0-5) /hpf Ur Squamous Epith Cells <1 (0-4) /hpf Urine Bacteria Rare H (None) /hpf Urine Mucus Rare H (None) /hpf Urine Yeast (Budding) Occasional H (None) /hpf Disposition Clinical Impression: UTI (urinary tract infection), Dysuria, Abdominal pain Disposition: HOME SELF-CARE Condition: Good Instructions (If sedation given, give patient instructions): Urinary Tract Infection in Women (ED) Additional Instructions: Please use medication as discussed. Please follow-up with family doctor in the next 2 days. Please return to emergency room if the symptoms increase or worsen or for any other concerns. Is patient prescribed a controlled substance at d/c from ED?: No Referrals: Arvin Aburto MD [Primary Care Provider] - 1-2 days Time of Disposition: 00:28
[2020-03-24] MEDS ORDERED: cefTRIAXone IN SWFI 1,000 MG/10 ML SYRINGE IVP STA (23:55)
[2020-03-25 00:24] LABS: Appearance,Urine Cloudy (Clear); Bacteria,Urine Rare /hpf; Bilirubin,Urine Negative (Negative); Blood,Urine Trace (Negative); Budding Yeast,Urine Occasional /hpf; Color,Urine Yellow; Glucose,Urine (UA) Negative (Negative); Ketones,Urine Negative (Negative); Leukocyte Esterase,Urine Large (Negative); Mucus,Urine Rare /hpf; Nitrite,Urine Negative (Negative); PH, Urine 5.5 (5.0-8.0); Protein,Urine Negative (Negative); RBC,Urine 8 /hpf (0-5); Specific Gravity,Urine 1.032 (1.001-1.035); Squamous Epithelial Cell,Urine <1 /hpf (0-4); Urobilinogen,Urine <2.0 mg/dL (<2.0); WBC,Urine 168 /hpf (0-5)
[2020-03-25] MEDS ORDERED: HYDROmorphone 0.5 MG/0.5 ML SYRINGE IVP STA (00:34)
[2020-03-25] MEDS ORDERED: CEPHALEXIN 500MG STARTER PACK 4 CAP BTL PO STA (00:35)
[2020-03-25 01:35] VITALS: BP 152/105; PULSE 60; RESP 16
== END 2020-03-25 01:03 | disposition home or self-care (01) ==
LOC: EC 21:07
DX: N39.0 Urinary tract infection, site not specified (principal); I48.91 Unspecified atrial fibrillation; I25.10 Atherosclerotic heart disease of native coronary artery without angina pectoris; E78.5 Hyperlipidemia, unspecified; F41.9 Anxiety disorder, unspecified; I10 Essential (primary) hypertension; K21.9 Gastro-esophageal reflux disease without esophagitis; F17.200 Nicotine dependence, unspecified, uncomplicated; Z79.01 Long term (current) use of anticoagulants; Z79.82 Long term (current) use of aspirin; Z79.899 Other long term (current) drug therapy; Z88.1 Allergy status to other antibiotic agents; Z88.2 Allergy status to sulfonamides; Z86.73 Personal history of transient ischemic attack (TIA), and cerebral infarction without residual deficits; Z90.49 Acquired absence of other specified parts of digestive tract; Z90.710 Acquired absence of both cervix and uterus; Z98.1 Arthrodesis status
CPT/HCPCS: 36415; 80053; 85025; 74177; 99284; 96374; 96375; J1170; Q9967; 81001

== ENCOUNTER 2020-03-25 12:31 | Emergency (ER) | payer OTHER ==
[2020-03-25] MEDS ORDERED: hydrALAZINE HCL 20 MG/ML 1 ML VIAL IVP STA ×2 (13:09→15:08)
[2020-03-25] MEDS ORDERED: KETOROLAC 15 MG/ML 1 ML VIAL IVP STA (13:09)
--- NOTE | 2020-03-25 13:12 | ED ---
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 Patient comes in today because she states her blood pressure is high and she was becoming dizzy and nauseated. Patient also states she's been having a urinary tract infection and she has some radiation of the pain to her flank on the left. Patient denies any shortness of breath or difficulty breathing. Patient denies any headache patient denies numbness or weakness. Patient states she has some left lower abdominal pain. Patient denies any recent injury or trauma. - Related Data Home Medications Medication Instructions Recorded Confirmed ALPRAZolam [Xanax] 0.5 mg PO BID 01/20/19 03/22/20 Warfarin [Coumadin] 2 mg PO SUTUTHSA 01/20/19 03/22/20 Warfarin [Coumadin] 1 mg PO MOWEFR 10/29/19 03/22/20 Atorvastatin Calcium [Lipitor] 80 mg PO HS 12/25/19 03/22/20 Baclofen [Lioresal] 10 mg PO TID 12/25/19 03/22/20 Melatonin 10 mg PO HS 12/25/19 03/22/20 Morphine Sulfate ER [Ms Contin] 30 mg PO BID 12/25/19 03/22/20 Ondansetron Odt [Zofran ODT] 8 mg PO Q8HR PRN 12/25/19 03/22/20 Valsartan [Diovan] 320 mg PO DAILY 12/25/19 03/22/20 busPIRone HCl [Buspar] 10 mg PO TID 12/25/19 03/22/20 Simethicone [Gas-X] 250 mg PO DAILY PRN 02/24/20 03/22/20 bisacodyL [Dulcolax] 10 mg PO BID 02/24/20 03/22/20 cloNIDine HCL [Catapres] 0.2 mg PO TID 02/24/20 03/22/20 Aspirin EC [Ecotrin Low Dose] 81 mg PO DAILY 03/20/20 03/22/20 DULoxetine HCL [Cymbalta] 30 mg PO BID 03/20/20 03/22/20 polyethylene glycoL 3350 [Miralax] 17 gm PO DAILY PRN 03/20/20 03/22/20 HYDROcodone/APAP 10-325MG [[place] 1 tab PO BID 03/22/20 03/22/20 10-325] Previous Rx's Medication Instructions Recorded amLODIPine [Norvasc] 10 mg PO HS #30 tab 12/29/19 Cephalexin [Keflex] 500 mg PO Q6HR #40 cap 03/20/20 Cefdinir [Omnicef] 300 mg PO Q12HR #0 capsule 03/23/20 Allergies Allergy/AdvReac Type Severity Reaction Status Date / Time sulfamethoxazole Allergy Itching Verified 03/25/20 12:49 [From Septra] trimethoprim [From Septra] Allergy Itching Verified 03/25/20 12:49 levofloxacin [From Levaquin] AdvReac Muscle Pain Verified 03/25/20 12:49 Review of Systems ROS Statement: Those systems with pertinent positive or pertinent negative responses have been documented in the HPI. ROS Other: All systems not noted in ROS Statement are negative. Past Medical History Past Medical History: Atrial Fibrillation, Coronary Artery Disease (CAD), CVA/TIA, Diabetes Mellitus, GERD/Reflux, Hyperlipidemia, Hypertension Additional Past Medical History / Comment(s): hx urinary retention, Nephrolithiasis, recurrent UTI, double amputation lower extremities, aka. 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 Past Anesthesia/Blood Transfusion Reactions: No Reported Reaction Additional Past Anesthesia/Blood Transfusion Reaction / Comment(s): Pt received blood in 1978-no reaction reported. Past Psychological History: Anxiety Smoking Status: Current every day smoker Past Alcohol Use History: None Reported Past Drug Use History: None Reported - Past Family History Father Family Medical History: Cancer, Myocardial Infarction ([place]) Additional Family Medical History / Comment(s): Father had lung cancer-went into remission. He of a massive [place] in his 60's Mother Family Medical History: Cancer Additional Family Medical History / Comment(s): Mother of lung cancer at age 54 yrs. General Exam - General Exam Comments Initial Comments: GENERAL: Patient is well-developed and well-nourished. Patient is nontoxic and well- hydrated and is in mild distress. ENT: Neck is soft and supple. No significant lymphadenopathy is noted. Oropharynx is clear. Moist mucous membranes. Neck has full range of motion without eliciting any pain. EYES: The sclera were anicteric and conjunctiva were pink and moist. Extraocular movements were intact and pupils were equal round and reactive to light. Eyelids were unremarkable. PULMONARY: Unlabored respirations. Good breath sounds bilaterally. No audible rales rhon chi or wheezing was noted. CARDIOVASCULAR: There is a regular rate and rhythm without any murmurs gallops or rubs. ABDOMEN: Patient has some mild tenderness in the left lower quadrant but no rebound or guarding SKIN: Skin is clear with no lesions or rashes and otherwise unremarkable. NEUROLOGIC: Patient is alert and oriented x3. Cranial nerves II through XII are grossly intact. Motor and sensory are also intact. Normal speech, volume and content. Symmetrical smile. MUSCULOSKELETAL: Normal extremities with adequate strength and full range of motion. LYMPHATICS: No significant lymphadenopathy is noted PSYCHIATRIC: Normal psychiatric evaluation. Limitations: no limitations Course Vital Signs 03/25/20 03/25/20 03/25/20 12:43 14:30 15:15 Temperature 100 F H 99.3 F Pulse Rate 81 91 85 Respiratory 18 18 18 Rate Blood Pressure 188/117 201/101 146/81 O2 Sat by Pulse 95 100 100 Oximetry 03/25/20 16:09 Temperature Pulse Rate 89 Respiratory 16 Rate Blood Pressure 153/76 O2 Sat by Pulse 98 Oximetry Medical Decision Making - Medical Decision Making EKG shows normal sinus rhythm at 70 bpm NC interval 148 QRS 78 QTC is 422 QTC is 455. Patient's EKG shows no ST segment elevation or depression. Patient had a computed tomography scan yesterday and I reviewed those results. I will back into the room after the patient received a little morphine and Zofran. Patient still in pain so the patient received Dilaudid after that. After a little while I will back and again to see the patient she was still comp laining of left sided flank pain. Get her antibiotics filled so she will do that today. Because of this we did give her a gram of Rocephin. I spoke with Dr. Spaulding he stated that the patient has had multiple workups and that she needs to follow-up with her primary medical care doctor. Dr. Spaulding said he was unable to do anything for her in the hospital and so he recommended she follow up with Dr. Aburto - Lab Data Result diagrams: 03/25/20 13:13 03/25/20 13:13 Lab Results 03/25/20 03/25/20 03/25/20 Range/Units 13:13 13:13 13:13 WBC 9.1 (3.8-10.6) k/uL RBC 5.34 (3.80-5.40) m/uL Hgb 15.0 (11.4-16.0) gm/dL Hct 45.0 (34.0-46.0) % MCV 84.3 (80.0-100.0) fL MCH 28.0 (25.0-35.0) pg MCHC 33.3 (31.0-37.0) g/dL RDW 14.1 (11.5-15.5) % Plt Count 403 (150-450) k/uL Neutrophils % 71 % Lymphocytes % 23 % Monocytes % 3 % Eosinophils % 1 % Basophils % 1 % Neutrophils # 6.4 (1.3-7.7) k/uL Lymphocytes # 2.1 (1.0-4.8) k/uL Monocytes # 0.3 (0-1.0) k/uL Eosinophils # 0.1 (0-0.7) k/uL Basophils # 0.1 (0-0.2) k/uL APTT 28.3 (22.0-30.0) sec Sodium 137 (137-145) mmol/L Potassium 3.7 (3.5-5.1) mmol/L Chloride 107 (98-107) mmol/L Carbon Dioxide 21 L (22-30) mmol/L Anion Gap 9 mmol/L BUN 10 (7-17) mg/dL Creatinine 0.44 L (0.52-1.04) mg/dL Est GFR (CKD-EPI)AfAm >90 (>60 ml/min/1.73 sqM) Est GFR (CKD-EPI)NonAf >90 (>60 ml/min/1.73 sqM) Glucose 113 H (74-99) mg/dL Plasma Lactic Acid Joshua (0.7-2.0) mmol/L Calcium 9.3 (8.4-10.2) mg/dL Magnesium 1.5 L (1.6-2.3) mg/dL Total Bilirubin 0.5 (0.2-1.3) mg/dL AST 24 (14-36) U/L ALT 22 (4-34) U/L Alkaline Phosphatase 110 (38-126) U/L Troponin I (0.000-0.034) ng/mL Total Protein 6.7 (6.3-8.2) g/dL Albumin 3.7 (3.5-5.0) g/dL Urine Color Urine Appearance (Clear) Urine pH (5.0-8.0) Ur Specific [place] (1.001-1.035) Urine Protein (Negative) Urine Glucose (UA) (Negative) Urine Ketones (Negative) Urine Blood (Negative) Urine Nitrite (Negative) Urine Bilirubin (Negative) Urine Urobilinogen (<2.0) mg/dL Ur Leukocyte Esterase (Negative) Urine RBC (0-5) /hpf Urine WBC (0-5) /hpf Urine Mucus (None) /hpf 03/25/20 03/25/20 03/25/20 Range/Units 13:13 13:13 14:30 WBC (3.8-10.6) k/uL RBC (3.80-5.40) m/uL Hgb (11.4-16.0) gm/dL Hct (34.0-46.0) % MCV (80.0-100.0) fL MCH (25.0-35.0) pg MCHC (31.0-37.0) g/dL RDW (11.5-15.5) % Plt Count (150-450) k/uL Neutrophils % % Lymphocytes % % Monocytes % % Eosinophils % % Basophils % % Neutrophils # (1.3-7.7) k/uL Lymphocytes # (1.0-4.8) k/uL Monocytes # (0-1.0) k/uL Eosinophils # (0-0.7) k/uL Basophils # (0-0.2) k/uL APTT (22.0-30.0) sec Sodium (137-145) mmol/L Potassium (3.5-5.1) mmol/L Chloride (98-107) mmol/L Carbon Dioxide (22-30) mmol/L Anion Gap mmol/L BUN (7-17) mg/dL Creatinine (0.52-1.04) mg/dL Est GFR (CKD-EPI)AfAm (>60 ml/min/1.73 sqM) Est GFR (CKD-EPI)NonAf (>60 ml/min/1.73 sqM) Glucose (74-99) mg/dL Plasma Lactic Acid Joshua 1.0 (0.7-2.0) mmol/L Calcium (8.4-10.2) mg/dL Magnesium (1.6-2.3) mg/dL Total Bilirubin (0.2-1.3) mg/dL AST (14-36) U/L ALT (4-34) U/L Alkaline Phosphatase (38-126) U/L Troponin I <0.012 (0.000-0.034) ng/mL Total Protein (6.3-8.2) g/dL Albumin (3.5-5.0) g/dL Urine Color Yellow Urine Appearance Clear (Clear) Urine pH 5.5 (5.0-8.0) Ur Specific [place] 1.025 (1.001-1.035) Urine Protein Negative (Negative) Urine Glucose (UA) Negative (Negative) Urine Ketones Negative (Negative) Urine Blood Negative (Negative) Urine Nitrite Negative (Negative) Urine Bilirubin Negative (Negative) Urine Urobilinogen <2.0 (<2.0) mg/dL Ur Leukocyte Esterase Trace H (Negative) Urine RBC 3 (0-5) /hpf Urine WBC 15 H (0-5) /hpf Urine Mucus Occasional H (None) /hpf Disposition Clinical Impression: Left sided abdominal pain, Hypertension, Noncompliance with medications, Drug- seeking behavior Disposition: HOME SELF-CARE Condition: Good Instructions (If sedation given, give patient instructions): Abdominal Pain (E D), Urinary Tract Infection in Women (ED) Is patient prescribed a controlled substance at d/c from ED?: No Referrals: Arvin Aburto MD [Primary Care Provider] - 1-2 days Time of Disposition: 15:44
[2020-03-25 13:27] LABS: Basophils # (A) 0.1 k/uL (0-0.2); Basophils % (A) 1 %; Eosinophils # (A) 0.1 k/uL (0-0.7); Eosinophils % (A) 1 %; Lymphocytes # (A) 2.1 k/uL (1.0-4.8); Lymphocytes % (A) 23 %; MCHC 33.3 g/dL (31.0-37.0); MCV 84.3 fL (80.0-100.0); Mean Platelet Volume 7.4; Monocytes # (A) 0.3 k/uL (0-1.0); Monocytes % (A) 3 %; Neutrophils # (A) 6.4 k/uL (1.3-7.7); Neutrophils % (A) 71 %; Platelet Count 403 k/uL (150-450); RBC 5.34 m/uL (3.80-5.40); RDW 14.1 % (11.5-15.5); WBC 9.1 k/uL (3.8-10.6)
[2020-03-25 13:43] LABS: ALT 22 U/L (4-34); AST 24 U/L (14-36); African American GFR (CKD) >90 (>60 ml/min/1.73 sqM); Albumin 3.7 g/dL (3.5-5.0); Alkaline Phosphatase 110 U/L (38-126); Anion Gap 9 mmol/L; Blood Urea Nitrogen 10 mg/dL (7-17); Calcium 9.3 mg/dL (8.4-10.2); Carbon Dioxide 21 mmol/L (22-30); Chloride 107 mmol/L (98-107); Glucose 113 mg/dL (74-99); Magnesium 1.5 mg/dL (1.6-2.3); Non-African American GFR(CKD) >90 (>60 ml/min/1.73 sqM); Potassium 3.7 mmol/L (3.5-5.1); Sodium 137 mmol/L (137-145); Total Bilirubin 0.5 mg/dL (0.2-1.3); Total Protein 6.7 g/dL (6.3-8.2)
--- NOTE | 2020-03-25 14:19 | XR ---
EXAMINATION TYPE: XR chest 2V DATE OF EXAM: 03/25/2020 COMPARISON: 10/28/2019 HISTORY: 64-year-old female with chest tightness TECHNIQUE: AP and lateral views FINDINGS: Partially visualized plate and screw fixation of the right humeral shaft. ACDF hardware. Heart mild t o moderately enlarged. Mild hyperinflation. No rivera consolidation or pleural effusion seen. IMPRESSION: Cardiomegaly. Possible underlying COPD. No definite acute process.
[2020-03-25] MEDS ORDERED: MORPHINE SULFATE 2 MG/ML SYRINGE IVP STA (14:22)
[2020-03-25] MEDS ORDERED: ONDANSETRON 4 MG/2 ML VIAL IVP STA (14:56)
[2020-03-25] MEDS ORDERED: HYDROmorphone 1 MG/ML 1 ML SYRINGE IVP STA (15:08)
[2020-03-25 15:16] VITALS: TEMP 99.3
[2020-03-25 15:28] LABS: Appearance,Urine Clear (Clear); Bilirubin,Urine Negative (Negative); Blood,Urine Negative (Negative); Color,Urine Yellow; Glucose,Urine (UA) Negative (Negative); Ketones,Urine Negative (Negative); Leukocyte Esterase,Urine Trace (Negative); Mucus,Urine Occasional /hpf; Nitrite,Urine Negative (Negative); PH, Urine 5.5 (5.0-8.0); Protein,Urine Negative (Negative); RBC,Urine 3 /hpf (0-5); Specific Gravity,Urine 1.025 (1.001-1.035); Urobilinogen,Urine <2.0 mg/dL (<2.0); WBC,Urine 15 /hpf (0-5)
[2020-03-25] MEDS ORDERED: SODIUM CHLORIDE 0.9% 1,000 ML IV ONE (15:44)
[2020-03-25 16:09] VITALS: BP 153/76; RESP 16
[2020-03-25] MEDS ORDERED: cefTRIAXone IN SWFI 1,000 MG/10 ML SYRINGE IVP STA (16:18)
[2020-03-25 16:32] VITALS: PULSE 90
[2020-03-25] MEDS ORDERED: MORPHINE SULFATE ER 30 MG TABLET PO STA (16:33)
== END 2020-03-25 16:46 | disposition home or self-care (01) ==
LOC: EC 12:31
DX: I10 Essential (primary) hypertension (principal); R10.30 Lower abdominal pain, unspecified; Z76.5 Malingerer [conscious simulation]; F41.9 Anxiety disorder, unspecified; I48.91 Unspecified atrial fibrillation; I25.10 Atherosclerotic heart disease of native coronary artery without angina pectoris; K21.9 Gastro-esophageal reflux disease without esophagitis; E78.5 Hyperlipidemia, unspecified; Z79.82 Long term (current) use of aspirin; Z79.51 Long term (current) use of inhaled steroids; Z79.899 Other long term (current) drug therapy; Z88.1 Allergy status to other antibiotic agents; Z88.2 Allergy status to sulfonamides; Z88.8 Allergy status to other drugs, medicaments and biological substances; F17.200 Nicotine dependence, unspecified, uncomplicated; Z86.73 Personal history of transient ischemic attack (TIA), and cerebral infarction without residual deficits; Z89.612 Acquired absence of left leg above knee; Z89.611 Acquired absence of right leg above knee; Z98.1 Arthrodesis status; Z91.14 Patient's other noncompliance with medication regimen; Z90.722 Acquired absence of ovaries, bilateral; Z95.5 Presence of coronary angioplasty implant and graft
CPT/HCPCS: 36415; 93005; 80053; 83605; 83735; 84484; 85025; 85730; 81001; 87040; 87086; 71046; 99285; 96374; 96375 ×5; 96376; J0360; J2405; J0696; J2270; J1170; J1885

== ENCOUNTER 2020-03-27 14:14 | Emergency (ER) | payer OTHER ==
[2020-03-27] MEDS ORDERED: SODIUM CHLORIDE 0.9% 500 ML 500 ML IV STA (14:37)
[2020-03-27] MEDS ORDERED: MORPHINE SULFATE 4 MG/ML SYRINGE IV STA (14:37)
[2020-03-27] MEDS ORDERED: ONDANSETRON 4 MG/2 ML VIAL IVP STA (14:56)
[2020-03-27] MEDS ORDERED: ACETAMINOPHEN TAB 325 MG TAB PO STA (14:56)
--- NOTE | 2020-03-27 15:00 | ED ---
General Adult HPI - General Chief complaint: Abdominal Pain Stated complaint: poss kidney stone Time Seen by Provider: 03/27/20 14:19 Source: patient, EMS, RN notes reviewed, old records reviewed Mode of arrival: EMS Limitations: physical limitation - History of Present Illness Initial comments: 64-year-old female patient presents ED for evaluation of abdominal pain. Patient reports that she has chronic abdominal pain and this feels like her normal pain. She reports that she is out of her pain medication which is morphine which she will get refilled in 2 days. He reports that she is currently being treated for urinary tract infection. She reports nausea without emesis as well as some diarrhea. She is denying any other acute complaints at this time. Systemic: Pt denies fatigue, fever/chills, rash. Pt denies weakness, night sweats, weight loss. Neuro: Pt denies headache, visual disturbances, syncope or pre-syncope. HEENT: Pt denies ocular discharge or irritation, otalgia, rhinorrhea, pharyngitis or notable lymphadenopathy. Cardiopulmonary: Pt denies chest pain, SOB, heart palpitations, dyspnea on exertion. Abdominal/GI: Pt denies emesis. : Pt denies dysuria, burning w/ urination, frequency/urgency. Denies new onset urinary or bowel incontinence. MSK: Pt denies myalgia, loss of strength or function in extremities. Neuro: Pt denies new onset weakness, paresthesias. - Related Data Home Medications Medication Instructions Recorded Confirmed ALPRAZolam [Xanax] 0.5 mg PO BID 01/20/19 03/27/20 Warfarin [Coumadin] 2 mg PO SUTUTHSA 01/20/19 03/27/20 Warfarin [Coumadin] 1 mg PO MOWEFR 10/29/19 03/27/20 Atorvastatin Calcium [Lipitor] 80 mg PO HS 12/25/19 03/27/20 Baclofen [Lioresal] 10 mg PO TID 12/25/19 03/27/20 Melatonin 10 mg PO HS PRN 12/25/19 03/27/20 Morphine Sulfate ER [Ms Contin] 30 mg PO Q12H 12/25/19 03/27/20 Ondansetron Odt [Zofran ODT] 8 mg PO Q8HR PRN 12/25/19 03/27/20 Valsartan [Diovan] 160 mg PO BID 12/25/19 03/27/20 busPIRone HCl [Buspar] 10 mg PO TID 12/25/19 03/27/20 Simethicone [Gas-X] 250 mg PO DAILY PRN 02/24/20 03/27/20 cloNIDine HCL [Catapres] 0.2 mg PO TID 02/24/20 03/27/20 Aspirin EC [Ecotrin Low Dose] 81 mg PO DAILY 03/20/20 03/27/20 DULoxetine HCL [Cymbalta] 30 mg PO BID 03/20/20 03/27/20 polyethylene glycoL 3350 [Miralax] 17 gm PO DAILY PRN 03/20/20 03/27/20 HYDROcodone/APAP 10-325MG [[place] 1 tab PO BID 03/22/20 03/27/20 10-325] amLODIPine [Norvasc] 5 mg PO DAILY 03/27/20 03/27/20 Previous Rx's Medication Instructions Recorded Cephalexin [Keflex] 500 mg PO Q6HR #40 cap 03/20/20 Nitrofurantoin Monohyd/M-Cryst 100 mg PO Q12HR 5 Days #10 cap 03/27/20 [Macrobid] Allergies Allergy/AdvReac Type Severity Reaction Status Date / Time sulfamethoxazole Allergy Itching Verified 03/27/20 16:47 [From Septra] trimethoprim [From Septra] Allergy Itching Verified 03/27/20 16:47 levofloxacin [From Levaquin] AdvReac Muscle Pain Verified 03/27/20 16:47 Review of Systems ROS Statement: Those systems with pertinent positive or pertinent negative responses have been documented in the HPI. ROS Other: All systems not noted in ROS Statement are negative. Past Medical History Past Medical History: Atrial Fibrillation, Coronary Artery Disease (CAD), CVA/TIA, Diabetes Mellitus, GERD/Reflux, Hyperlipidemia, Hypertension Additional Past Medical History / Comment(s): hx urinary retention, N ephrolithiasis, recurrent UTI, double amputation lower extremities, aka. 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 Past Anesthesia/Blood Transfusion Reactions: No Reported Reaction Additional Past Anesthesia/Blood Transfusion Reaction / Comment(s): Pt received blood in 1978-no reaction reported. Past Psychological History: Anxiety Smoking Status: Current every day smoker Past Alcohol Use History: None Reported Past Drug Use History: None Reported - Past Family History Father Family Medical History: Cancer, Myocardial Infarction ([place]) Additional Family Medical History / Comment(s): Father had lung cancer-went into remission. He of a massive [place] in his 60's Mother Family Medical History: Cancer Additional Family Medical History / Comment(s): Mother of lung cancer at age 54 yrs. General Exam - General Exam Comments Initial Comments: Constitutional: NAD, AOX3, Pt has pleasant affect. HEENT: NC/AT, trachea midline, neck supple, no lymphadenopathy. External ears appear normal, without discharge. Mucous membranes moist. Eyes PERRLA, EOM intact. There is no scleral icterus. No pallor noted. Cardiopulmonary: RRR, no murmurs, rubs or gallops, no JVD noted. Lungs CTAB in anterior and posterior david. No peripheral edema. Abdominal exam: Abdomen soft and non-distended. Abdomen mild tenderness to palpation suprapubic region.. Bowel sounds active in LLQ. No hepatosplenomegaly. No ecchymosis Neuro: CN II-XII grossly intact. No nuchal rigidity. MSK: Sensation intact in upper aextremities. Full active ROM in upper extremities. Limitations: physical limitation Course Vital Signs 03/27/20 03/27/20 03/27/20 14:16 14:55 15:33 Temperature 100.5 F H Pulse Rate 84 74 Respiratory 18 18 20 Rate Blood Pressure 162/100 162/100 162/92 O2 Sat by Pulse 97 96 Oximetry 03/27/20 16:33 Temperature 99.0 F Pulse Rate 75 Respiratory 20 Rate Blood Pressure 177/85 O2 Sat by Pulse 99 Oximetry Medical Decision Making - Medical Decision Making 64-year-old female patient presents to ED for evaluation of abdominal pain. Patient being treated for urinary tract infection. Patient vital signs displayed low-grade fever. Patient pain control in emergency department. Patient is repeatedly asking for narcotic pain medications. Laboratory investigations displayed mild leukocytosis. Mild dehydration. Mildly elevated lipase. Urine tract infection. KUB displayed nonspecific bowel gas. Unchanged 13 mm right renal calculi. Most recent urine culture does display a sensitivity to Macrobid for what patient will be switched to. I reviewed the CAT scan from 3 days ago. I did discuss case with primary care provider Dr. Spaulding who is covering for Dr. Aburto and lately the patient remains outpatient with switched to Macrobid. Discussed case with Dr. Faye who is also in agreement with plan. - Lab Data Result diagrams: 03/27/20 14:41 03/27/20 14:41 Lab Results 03/27/20 03/27/20 03/27/20 Range/Units 14:41 14:41 14:41 WBC 11.0 H (3.8-10.6) k/uL RBC 5.60 H (3.80-5.40) m/uL Hgb 15.6 (11.4-16.0) gm/dL Hct 47.2 H (34.0-46.0) % MCV 84.4 (80.0-100.0) fL MCH 27.9 (25.0-35.0) pg MCHC 33.0 (31.0-37.0) g/dL RDW 14.2 (11.5-15.5) % Plt Count 384 (150-450) k/uL Neutrophils % 68 % Lymphocytes % 26 % Monocytes % 3 % Eosinophils % 1 % Basophils % 1 % Neutrophils # 7.5 (1.3-7.7) k/uL Lymphocytes # 2.8 (1.0-4.8) k/uL Monocytes # 0.4 (0-1.0) k/uL Eosinophils # 0.1 (0-0.7) k/uL Basophils # 0.1 (0-0.2) k/uL PT 20.8 H (9.0-12.0) sec INR 2.1 H (<1.2) APTT 29.5 (22.0-30.0) sec Sodium (137-145) mmol/L Potassium (3.5-5.1) mmol/L Chloride (98-107) mmol/L Carbon Dioxide (22-30) mmol/L Anion Gap mmol/L BUN (7-17) mg/dL Creatinine (0.52-1.04) mg/dL Est GFR (CKD-EPI)AfAm (>60 ml/min/1.73 sqM) Est GFR (CKD-EPI)NonAf (>60 ml/min/1.73 sqM) Glucose (74-99) mg/dL Plasma Lactic Acid Joshua (0.7-2.0) mmol/L Calcium (8.4-10.2) mg/dL Total Bilirubin (0.2-1.3) mg/dL AST (14-36) U/L ALT (4-34) U/L Alkaline Phosphatase (38-126) U/L Total Protein (6.3-8.2) g/dL Albumin (3.5-5.0) g/dL Lipase (23-300) U/L Urine Color Yellow Urine Appearance Cloudy H (Clear) Urine pH 5.5 (5.0-8.0) Ur Specific [place] 1.023 (1.001-1.035) Urine Protein 1+ H (Negative) Urine Glucose (UA) Negative (Negative) Urine Ketones Negative (Negative) Urine Blood Trace H (Negative) Urine Nitrite Negative (Negative) Urine Bilirubin Negative (Negative) Urine Urobilinogen <2.0 (<2.0) mg/dL Ur Leukocyte Esterase Large H (Negative) Urine RBC 20 H (0-5) /hpf Urine WBC 128 H (0-5) /hpf Ur Squamous Epith Cells 2 (0-4) /hpf Urine Bacteria Rare H (None) /hpf Urine Mucus Rare H (None) /hpf Urine Yeast (Budding) Few H (None) /hpf 03/27/20 03/27/20 Range/Units 14:41 14:41 WBC (3.8-10.6) k/uL RBC (3.80-5.40) m/uL Hgb (11.4-16.0) gm/dL Hct (34.0-46.0) % MCV (80.0-100.0) fL MCH (25.0-35.0) pg MCHC (31.0-37.0) g/dL RDW (11.5-15.5) % Plt Count (150-450) k/uL Neutrophils % % Lymphocytes % % Monocytes % % Eosinophils % % Basophils % % Neutrophils # (1.3-7.7) k/uL Lymphocytes # (1.0-4.8) k/uL Monocytes # (0-1.0) k/uL Eosinophils # (0-0.7) k/uL Basophils # (0-0.2) k/uL PT (9.0-12.0) sec INR (<1.2) APTT (22.0-30.0) sec Sodium 140 (137-145) mmol/L Potassium 3.9 (3.5-5.1) mmol/L Chloride 113 H (98-107) mmol/L Carbon Dioxide 18 L (22-30) mmol/L Anion Gap 9 mmol/L BUN 19 H (7-17) mg/dL Creatinine 0.43 L (0.52-1.04) mg/dL Est GFR (CKD-EPI)AfAm >90 (>60 ml/min/1.73 sqM) Est GFR (CKD-EPI)NonAf >90 (>60 ml/min/1.73 sqM) Glucose 120 H (74-99) mg/dL Plasma Lactic Acid Joshua 0.9 (0.7-2.0) mmol/L Calcium 9.4 (8.4-10.2) mg/dL Total Bilirubin 0.6 (0.2-1.3) mg/dL AST 29 (14-36) U/L ALT 24 (4-34) U/L Alkaline Phosphatase 100 (38-126) U/L Total Protein 6.8 (6.3-8.2) g/dL Albumin 3.9 (3.5-5.0) g/dL Lipase 544 H (23-300) U/L Urine Color Urine Appearance (Clear) Urine pH (5.0-8.0) Ur Specific [place] (1.001-1.035) Urine Protein (Negative) Urine Glucose (UA) (Negative) Urine Ketones (Negative) Urine Blood (Negative) Urine Nitrite (Negative) Urine Bilirubin (Negative) Urine Urobilinogen (<2.0) mg/dL Ur Leukocyte Esterase (Negative) Urine RBC (0-5) /hpf Urine WBC (0-5) /hpf Ur Squamous Epith Cells (0-4) /hpf Urine Bacteria (None) /hpf Urine Mucus (None) /hpf Urine Yeast (Budding) (None) /hpf Disposition Clinical Impression: Chronic pain, UTI (urinary tract infection) Disposition: HOME SELF-CARE Condition: Stable Instructions (If sedation given, give patient instructions): Urinary Tract Infection in Women (ED) Additional Instructions: Follow up with primary care provider tomorrow. Take antibiotics as directed. Return to ER if any worsening symptoms. Prescriptions: Nitrofurantoin Monohyd/M-Cryst [Macrobid] 100 mg PO Q12HR 5 Days #10 cap Is patient prescribed a controlled substance at d/c from ED?: No Referrals: Arvin Aburto MD [Primary Care Provider] - 1-2 days
[2020-03-27 15:04] LABS: Basophils # (A) 0.1 k/uL (0-0.2); Basophils % (A) 1 %; Eosinophils # (A) 0.1 k/uL (0-0.7); Eosinophils % (A) 1 %; HCT 47.2 % (34.0-46.0); HGB 15.6 gm/dL (11.4-16.0); Lymphocytes # (A) 2.8 k/uL (1.0-4.8); Lymphocytes % (A) 26 %; MCH 27.9 pg (25.0-35.0); MCV 84.4 fL (80.0-100.0); Mean Platelet Volume 7.8; Monocytes # (A) 0.4 k/uL (0-1.0); Monocytes % (A) 3 %; Neutrophils # (A) 7.5 k/uL (1.3-7.7); Neutrophils % (A) 68 %; Platelet Count 384 k/uL (150-450); RDW 14.2 % (11.5-15.5)
[2020-03-27 15:12] LABS: ALT 24 U/L (4-34); AST 29 U/L (14-36); African American GFR (CKD) >90 (>60 ml/min/1.73 sqM); Albumin 3.9 g/dL (3.5-5.0); Alkaline Phosphatase 100 U/L (38-126); Anion Gap 9 mmol/L; Blood Urea Nitrogen 19 mg/dL (7-17); Calcium 9.4 mg/dL (8.4-10.2); Carbon Dioxide 18 mmol/L (22-30); Chloride 113 mmol/L (98-107); Glucose 120 mg/dL (74-99); Lipase 544 U/L (23-300); Non-African American GFR(CKD) >90 (>60 ml/min/1.73 sqM); Potassium 3.9 mmol/L (3.5-5.1); Sodium 140 mmol/L (137-145); Total Bilirubin 0.6 mg/dL (0.2-1.3); Total Protein 6.8 g/dL (6.3-8.2)
[2020-03-27 15:18] LABS: INR 2.1 (<1.2); Partial Thromboplastin Time 29.5 sec (22.0-30.0); Prothrombin Time 20.8 sec (9.0-12.0)
[2020-03-27 15:36] VITALS: RESP 20
--- NOTE | 2020-03-27 16:06 | XR ---
EXAMINATION TYPE: XR KUB DATE OF EXAM: 03/27/2020 3:58 PM CLINICAL HISTORY: Left-sided abdominal pain history of nephrolithiasis, cholecystectomy. TECHNIQUE: Supine images of the abdomen and pelvis were obtained COMPARISON: Abdominal KUB 02/24/2020. CT abdomen pelvis 03/24/2020 FINDINGS: Right upper quadrant surgical clips. 13 mm right renal calculus unchanged. Calcification ov erlying the right iliac bone corresponds with vascular calcification on 03/24/2020 CT comparison and i s unchanged. There is a paucity of bowel gas in the small bowel and colon. Gastric bubble unremarkabl e. Degenerative changes of the spine. IMPRESSION: 1. Unchanged 13 mm right renal calculus. 2. Paucity of bowel gas limits evaluation of bowel loops. The visualized bowel gas is nonspecific.
[2020-03-27] MEDS ORDERED: HYDROmorphone 0.5 MG/0.5 ML SYRINGE IVP STA ×2 (16:26→17:36)
[2020-03-27 16:35] VITALS: TEMP 99
[2020-03-27 16:54] LABS: Appearance,Urine Cloudy (Clear); Bacteria,Urine Rare /hpf; Bilirubin,Urine Negative (Negative); Blood,Urine Trace (Negative); Budding Yeast,Urine Few /hpf; Color,Urine Yellow; Glucose,Urine (UA) Negative (Negative); Ketones,Urine Negative (Negative); Leukocyte Esterase,Urine Large (Negative); Mucus,Urine Rare /hpf; Nitrite,Urine Negative (Negative); PH, Urine 5.5 (5.0-8.0); Protein,Urine 1+ (Negative); RBC,Urine 20 /hpf (0-5); Specific Gravity,Urine 1.023 (1.001-1.035); Squamous Epithelial Cell,Urine 2 /hpf (0-4); Urobilinogen,Urine <2.0 mg/dL (<2.0); WBC,Urine 128 /hpf (0-5)
[2020-03-27] MEDS ORDERED: SODIUM CHLORIDE 0.9% 500 ML 500 ML IV ONE (17:12)
[2020-03-27] MEDS ORDERED: NITROFURANTOIN MONOHYD/M-CRYST 100 MG CAP PO STA (17:13)
[2020-03-27 18:27] VITALS: BP 184/99; PULSE 78
[2020-03-27] MEDS ORDERED: HYDROcodone/APAP 10-325MG 1 EACH TAB PO ONE (18:29)
[2020-03-27] MEDS ORDERED: cefTRIAXone 1,000 MG VIAL (IM USE) IM STA (19:38)
== END 2020-03-27 20:00 | disposition home or self-care (01) ==
LOC: EC 14:14
DX: N39.0 Urinary tract infection, site not specified (principal); N20.0 Calculus of kidney; F41.9 Anxiety disorder, unspecified; F17.200 Nicotine dependence, unspecified, uncomplicated; I48.91 Unspecified atrial fibrillation; I25.10 Atherosclerotic heart disease of native coronary artery without angina pectoris; E78.5 Hyperlipidemia, unspecified; I10 Essential (primary) hypertension; Z79.82 Long term (current) use of aspirin; Z79.84 Long term (current) use of oral hypoglycemic drugs; Z79.899 Other long term (current) drug therapy; Z88.1 Allergy status to other antibiotic agents; Z88.2 Allergy status to sulfonamides; Z86.73 Personal history of transient ischemic attack (TIA), and cerebral infarction without residual deficits; Z89.612 Acquired absence of left leg above knee; Z89.611 Acquired absence of right leg above knee; Z98.1 Arthrodesis status; Z95.5 Presence of coronary angioplasty implant and graft
CPT/HCPCS: 36415; 80053; 83605; 83690; 85025; 85610; 85730; 81001; 87086; 74018; 99285; 96374; 96375 ×2; 96376; 96361 ×2; 96372; J2270; J2405; J0696; J1170; 87077; 87186

== ENCOUNTER → 2020-07-05 | Outpatient (CLI) | payer OTHER ==
[2020-07-05 12:44] LABS: Appearance,Urine Clear (Clear); Bilirubin,Urine Negative (Negative); Blood,Urine Negative (Negative); Color,Urine Yellow; Glucose,Urine (UA) Negative (Negative); Ketones,Urine Negative (Negative); Leukocyte Esterase,Urine Moderate (Negative); Mucus,Urine Rare /hpf; Nitrite,Urine Negative (Negative); PH, Urine 5.5 (5.0-8.0); Protein,Urine Negative (Negative); Specific Gravity,Urine 1.016 (1.001-1.035); Squamous Epithelial Cell,Urine 2 /hpf (0-4); Urobilinogen,Urine <2.0 mg/dL (<2.0); WBC,Urine 17 /hpf (0-5)
[2020-07-05 13:09] LABS: HCT 40.3 % (34.0-46.0); HGB 13.5 gm/dL (11.4-16.0); MCH 29.1 pg (25.0-35.0); MCHC 33.6 g/dL (31.0-37.0); MCV 86.5 fL (80.0-100.0); Mean Platelet Volume 7.6; Platelet Count 328 k/uL (150-450); RBC 4.65 m/uL (3.80-5.40); RDW 13.3 % (11.5-15.5); WBC 10.4 k/uL (3.8-10.6)
[2020-07-05 15:22] LABS: INR 2.1 (<1.2); Partial Thromboplastin Time 35.9 sec (22.0-30.0); Prothrombin Time 20.5 sec (9.0-12.0)
[2020-07-05 21:02] LABS: African American GFR (CKD) 106.9 (60.0-200.0); Albumin 3.6 g/dL (3.80-4.90); Albumin/Globulin Ratio 1.71 (1.60-3.17); Anion Gap 5.8 mmol/L (4.00-12.00); BUN/Creat Ratio 41.43 Ratio (12.00-20.00); Calcium 8.8 mg/dL (8.7-10.3); Carbon Dioxide 27.2 mmol/L (21.6-31.8); Globulin 2.1 g/dL (1.6-3.3); Non-African American GFR(CKD) 92.2 (60.0-200.0); Potassium 4.7 mmol/L (3.5-5.5); Total Bilirubin 0.1 mg/dL (0.2-1.2); Total Protein 5.7 g/dL (6.2-8.2)
[2020-07-06 13:26] LABS: Hemoglobin A1C 6.6 % (4.0-6.0)
== END | disposition home or self-care (01) ==
LOC: LABWHC1 12:04
DX: N26.1 Atrophy of kidney (terminal) (principal); Z86.39 Personal history of other endocrine, nutritional and metabolic disease
CPT/HCPCS: 36415; 80053; 81001; 83036; 85027; 85610; 85730; 87086

== ENCOUNTER 2020-08-28 09:36 | Emergency (ER) | payer OTHER ==
[2020-08-28 09:45] VITALS: RESP 18; TEMP 98.6
[2020-08-28] MEDS ORDERED: SODIUM CHLORIDE 0.9% 1,000 ML IV STA (09:53)
[2020-08-28] MEDS ORDERED: DIPHENOX-ATROP 2.5-0.025 MG 1 EACH TAB PO STA (09:53)
[2020-08-28] MEDS ORDERED: HYDROmorphone 0.5 MG/0.5 ML SYRINGE IVP STA ×2 (09:53→13:26)
--- NOTE | 2020-08-28 10:06 | ED ---
General Adult HPI - General Chief complaint: Urogenital Stated complaint: Diarehea Time Seen by Provider: 08/28/20 09:40 Source: patient, EMS, RN notes reviewed, old records reviewed Mode of arrival: EMS Limitations: no limitations - History of Present Illness Initial comments: This is a 65-year-old female presents emergency Department with a recent history in July of right nephrectomy. Patient also states she has a history of diabetes. 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 Patient comes in today stating she's had diarrhea for 3 days. Patient denies any blood or black stools. Patient states he has not had any antibiotics since the beginning of July. Patient denies any fever chills per patient denies any dysuria hematuria urinary frequency. Patient does complain of left- sided abdominal pain. Patient denies any vomiting with it. Patient has chest pain difficulty breathing shortness of breath. Patient states the right side where the nephrectomy was done is slightly tender but that is been ongoing since she had the surgery. - Related Data Home Medications Medication Instructions Recorded Confirmed ALPRAZolam [Xanax] 0.5 mg PO BID 01/20/19 08/28/20 Warfarin [Coumadin] 2 mg PO SUTUTH 01/20/19 08/28/20 Warfarin [Coumadin] 3 mg PO MOWEFRSA 10/29/19 08/28/20 Atorvastatin Calcium [Lipitor] 80 mg PO HS 12/25/19 08/28/20 Baclofen [Lioresal] 5 mg PO TID 12/25/19 08/28/20 Melatonin 10 mg PO HS PRN 12/25/19 08/28/20 Morphine Sulfate ER [Ms Contin] 30 mg PO Q12H 12/25/19 08/28/20 Ondansetron Odt [Zofran ODT] 8 mg PO Q8HR PRN 12/25/19 08/28/20 Valsartan [Diovan] 160 mg PO BID 12/25/19 08/28/20 busPIRone HCl [Buspar] 10 mg PO TID 12/25/19 08/28/20 Simethicone [Gas-X] 250 mg PO DAILY PRN 02/24/20 08/28/20 Aspirin EC [Ecotrin Low Dose] 81 mg PO DAILY 03/20/20 08/28/20 polyethylene glycoL 3350 [Miralax] 17 gm PO DAILY PRN 03/20/20 08/28/20 amLODIPine [Norvasc] 5 mg PO DAILY 03/27/20 08/28/20 Docusate [Colace] 100 mg PO DAILY PRN 08/28/20 08/28/20 Pantoprazole Sodium [Protonix] 40 mg PO DAILY 08/28/20 08/28/20 cloNIDine HCL [Catapres] 0.2 mg PO TID 08/28/20 08/28/20 oxyCODONE HCL [oxyCODONE HCL (IR)] 10 mg PO Q4H PRN 08/28/20 08/28/20 Allergies Allergy/AdvReac Type Severity Reaction Status Date / Time sulfamethoxazole Allergy Itching Verified 08/28/20 12:01 [From Septra] trimethoprim [From Septra] Allergy Itching Verified 08/28/20 12:01 levofloxacin [From Levaquin] AdvReac Muscle Pain Verified 08/28/20 12:01 nitrofurantoin AdvReac Unknown Verified 08/28/20 12:01 [From Macrobid] Review of Systems ROS Statement: Those systems with pertinent positive or pertinent negative responses have been documented in the HPI. ROS Other: All systems not noted in ROS Statement are negative. Past Medical History Past Medical History: Atrial Fibrillation, Coronary Artery Disease (CAD), CVA/TIA, Diabetes Mellitus, GERD/Reflux, Hyperlipidemia, Hypertension Additional Past Medical History / Comment(s): hx urinary retention, Nephroli thiasis, recurrent UTI, double amputation lower extremities, aka. small cyst on kidney, pt states no longer diabetic, right kidney removal. 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 Right kidney removal july 2020 Past Anesthesia/Blood Transfusion Reactions: No Reported Reaction Additional Past Anesthesia/Blood Transfusion Reaction / Comment(s): Pt received blood in 1978-no reaction reported. Past Psychological History: Anxiety Smoking Status: Current every day smoker Past Alcohol Use History: None Reported Past Drug Use History: None Reported - Past Family History Father Family Medical History: Cancer, Myocardial Infarction ([place]) Additional Family Medical History / Comment(s): Father had lung cancer-went into remission. He of a massive [place] in his 60's Mother Family Medical History: Cancer Additional Family Medical History / Comment(s): Mother of lung cancer at age 54 yrs. General Exam - General Exam Comments Initial Comments: GENERAL: Patient is well-developed and well-nourished. Patient is nontoxic and well- hydrated and is in mild distress. ENT: Neck is soft and supple. No significant lymphadenopathy is noted. Oropharynx is clear. Moist mucous membranes. Neck has full range of motion without eliciting any pain. EYES: The sclera were anicteric and conjunctiva were pink and moist. Extraocular movements were intact and pupils were equal round and reactive to light. Eyelids were unremarkable. PULMONARY: Unlabored respirations. Good breath sounds bilaterally. No audible rales rhonchi or wheezing was noted. CARDIOVASCULAR: There is a regular rate and rhythm without any murmurs gallops or rubs. ABDOMEN: Patient has left-sided abdominal pain. SKIN: Skin is clear with no lesions or rashes and otherwise unremarkable. NEUROLOGIC: Patient is alert and oriented x3. Cranial nerves II through XII are grossly intact. Motor and sensory are also intact. Normal speech, volume and content. Symmetrical smile. Cerebellar exam grossly intact. MUSCULOSKELETAL: Patient has a high AKA bilaterally LYMPHATICS: No significant lymphadenopathy is noted PSYCHIATRIC: Normal psychiatric evaluation. Limitations: no limitations Course Vital Signs 08/28/20 08/28/20 09:38 11:36 Temperature 98.6 F Pulse Rate 68 62 Respiratory 18 18 Rate Blood Pressure 167/72 148/73 O2 Sat by Pulse 96 98 Oximetry Medical Decision Making - Medical Decision Making Patient's computed tomography scan shows mild colitis. I went in and spoke with the patient she did not want to stay she wanted some pain medication and she stated she would follow-up with Dr. Aburto. Patient's lipase was mildly elevated but she had no epigastric abdominal pain - Lab Data Result diagrams: 08/28/20 09:57 08/28/20 09:57 Lab Results 08/28/20 08/28/2008/28/21 Range/Units 09:57 09:57 09:57 WBC 8.3 (3.8-10.6) k/uL RBC 5.51 H (3.80-5.40) m/uL Hgb 14.9 (11.4-16.0) gm/dL Hct 44.4 (34.0-46.0) % MCV 80.6 D (80.0-100.0) fL MCH 27.0 (25.0-35.0) pg MCHC 33.5 (31.0-37.0) g/dL RDW 14.1 (11.5-15.5) % Plt Count 441 (150-450) k/uL MPV 6.9 Neutrophils % 61 % Lymphocytes % 32 % Monocytes % 3 % Eosinophils % 1 % Basophils % 1 % Neutrophils # 5.1 (1.3-7.7) k/uL Lymphocytes # 2.6 (1.0-4.8) k/uL Monocytes # 0.3 (0-1.0) k/uL Eosinophils # 0.1 (0-0.7) k/uL Basophils # 0.1 (0-0.2) k/uL Sodium 140 (137-145) mmol/L Potassium 3.7 (3.5-5.1) mmol/L Chloride 111 H (98-107) mmol/L Carbon Dioxide 18 L (22-30) mmol/L Anion Gap 11 mmol/L BUN 18 H (7-17) mg/dL Creatinine 0.55 (0.52-1.04) mg/dL Est GFR (CKD-EPI)AfAm >90 (>60 ml/min/1.73 sqM) Est GFR (CKD-EPI)NonAf >90 (>60 ml/min/1.73 sqM) Glucose 118 H (74-99) mg/dL Plasma Lactic Acid Joshua 0.8 (0.7-2.0) mmol/L Calcium 9.0 (8.4-10.2) mg/dL Total Bilirubin 0.6 (0.2-1.3) mg/dL AST 25 (14-36) U/L ALT 21 (4-34) U/L Alkaline Phosphatase 103 (38-126) U/L Total Protein 6.9 (6.3-8.2) g/dL Albumin 3.5 (3.5-5.0) g/dL Amylase 101 (30-110) U/L Lipase 789 H (23-300) U/L Urine Color Urine Appearance (Clear) Urine pH (5.0-8.0) Ur Specific [place] (1.001-1.035) Urine Protein (Negative) Urine Glucose (UA) (Negative) Urine Ketones (Negative) Urine Blood (Negative) Urine Nitrite (Negative) Urine Bilirubin (Negative) Urine Urobilinogen (<2.0) mg/dL Ur Leukocyte Esterase (Negative) Urine RBC (0-5) /hpf Urine WBC (0-5) /hpf Urine Bacteria (None) /hpf 08/28/20 Range/Units 10:18 WBC (3.8-10.6) k/uL RBC (3.80-5.40) m/uL Hgb (11.4-16.0) gm/dL Hct (34.0-46.0) % MCV (80.0-100.0) fL MCH (25.0-35.0) pg MCHC (31.0-37.0) g/dL RDW (11.5-15.5) % Plt Count (150-450) k/uL MPV Neutrophils % % Lymphocytes % % Monocytes % % Eosinophils % % Basophils % % Neutrophils # (1.3-7.7) k/uL Lymphocytes # (1.0-4.8) k/uL Monocytes # (0-1.0) k/uL Eosinophils # (0-0.7) k/uL Basophils # (0-0.2) k/uL Sodium (137-145) mmol/L Potassium (3.5-5.1) mmol/L Chloride (98-107) mmol/L Carbon Dioxide (22-30) mmol/L Anion Gap mmol/L BUN (7-17) mg/dL Creatinine (0.52-1.04) mg/dL Est GFR (CKD-EPI)AfAm (>60 ml/min/1.73 sqM) Est GFR (CKD-EPI)NonAf (>60 ml/min/1.73 sqM) Glucose (74-99) mg/dL Plasma Lactic Acid Joshua (0.7-2.0) mmol/L Calcium (8.4-10.2) mg/dL Total Bilirubin (0.2-1.3) mg/dL AST (14-36) U/L ALT (4-34) U/L Alkaline Phosphatase (38-126) U/L Total Protein (6.3-8.2) g/dL Albumin (3.5-5.0) g/dL Amylase (30-110) U/L Lipase (23-300) U/L Urine Color Yellow Urine Appearance Cloudy H (Clear) Urine pH 5.5 (5.0-8.0) Ur Specific [place] 1.015 (1.001-1.035) Urine Protein Trace H (Negative) Urine Glucose (UA) Negative (Negative) Urine Ketones Negative (Negative) Urine Blood Small H (Negative) Urine Nitrite Negative (Negative) Urine Bilirubin Negative (Negative) Urine Urobilinogen <2.0 (<2.0) mg/dL Ur Leukocyte Esterase Large H (Negative) Urine RBC 13 H (0-5) /hpf Urine WBC 23 H (0-5) /hpf Urine Bacteria Rare H (None) /hpf Disposition Clinical Impression: Abdominal pain Disposition: HOME SELF-CARE Instructions (If sedation given, give patient instructions): Abdominal Pain (ED) Is patient prescribed a controlled substance at d/c from ED?: No Referrals: Arvin Aburto MD [Primary Care Provider] - 1-2 days Time of Disposition: 13:39
[2020-08-28 10:09] LABS: Basophils # (A) 0.1 k/uL (0-0.2); Basophils % (A) 1 %; Eosinophils # (A) 0.1 k/uL (0-0.7); Eosinophils % (A) 1 %; HCT 44.4 % (34.0-46.0); HGB 14.9 gm/dL (11.4-16.0); Lymphocytes # (A) 2.6 k/uL (1.0-4.8); Lymphocytes % (A) 32 %; MCHC 33.5 g/dL (31.0-37.0); Mean Platelet Volume 6.9; Monocytes # (A) 0.3 k/uL (0-1.0); Monocytes % (A) 3 %; Neutrophils # (A) 5.1 k/uL (1.3-7.7); Neutrophils % (A) 61 %; Platelet Count 441 k/uL (150-450); RBC 5.51 m/uL (3.80-5.40); RDW 14.1 % (11.5-15.5); WBC 8.3 k/uL (3.8-10.6)
[2020-08-28 10:17] LABS: MCV 80.6 fL (80.0-100.0)
[2020-08-28 10:31] LABS: ALT 21 U/L (4-34); AST 25 U/L (14-36); African American GFR (CKD) >90 (>60 ml/min/1.73 sqM); Albumin 3.5 g/dL (3.5-5.0); Alkaline Phosphatase 103 U/L (38-126); Amylase 101 U/L (30-110); Anion Gap 11 mmol/L; Blood Urea Nitrogen 18 mg/dL (7-17); Carbon Dioxide 18 mmol/L (22-30); Chloride 111 mmol/L (98-107); Glucose 118 mg/dL (74-99); Lipase 789 U/L (23-300); Non-African American GFR(CKD) >90 (>60 ml/min/1.73 sqM); Potassium 3.7 mmol/L (3.5-5.1); Sodium 140 mmol/L (137-145); Total Bilirubin 0.6 mg/dL (0.2-1.3); Total Protein 6.9 g/dL (6.3-8.2)
[2020-08-28 10:40] LABS: Appearance,Urine Cloudy (Clear); Bacteria,Urine Rare /hpf; Bilirubin,Urine Negative (Negative); Blood,Urine Small (Negative); Color,Urine Yellow; Glucose,Urine (UA) Negative (Negative); Ketones,Urine Negative (Negative); Leukocyte Esterase,Urine Large (Negative); Nitrite,Urine Negative (Negative); PH, Urine 5.5 (5.0-8.0); Protein,Urine Trace (Negative); RBC,Urine 13 /hpf (0-5); Specific Gravity,Urine 1.015 (1.001-1.035); Urobilinogen,Urine <2.0 mg/dL (<2.0); WBC,Urine 23 /hpf (0-5)
[2020-08-28] MEDS ORDERED: cefTRIAXone IN SWFI 1,000 MG/10 ML SYRINGE IVP STA (11:01)
[2020-08-28] MEDS ORDERED: KETOROLAC 15 MG/ML 1 ML VIAL IVP STA (11:03)
[2020-08-28 11:37] VITALS: BP 148/73; PULSE 62
--- NOTE | 2020-08-28 13:01 | CT ---
EXAMINATION TYPE: CT abdomen pelvis w con DATE OF EXAM: 08/28/2020 HISTORY: Left sided abdominal pain CT DLP: 1577.3mGycm Automated Exposure Control for Dose Reduction was Utilized. CONTRAST: CT scan of the abdomen and pelvis is performed with IV Contrast, patient injected with 100 mL of Isov ue 300. COMPARISON: CT abdomen and pelvis March 24, 2020 FINDINGS: LUNG BASES: Cardiomegaly is demonstrated. Calcification level of mitral valve.. LIVER/GB: Multiple cholecystectomy clips redemonstrated. Visualized liver heterogeneously hypodense s uggesting fatty infiltration. PANCREAS: No significant abnormality is seen. SPLEEN: No significant abnormality is seen. ADRENALS: No significant abnormality is seen. KIDNEYS: Right kidney now not identified presumed interval surgical resection. Satisfactory left-side d uptake and excretion without hydronephrosis. Cortical scarring lower pole left kidney redemonstrate d. Poorly distended bladder with moderate to severe concentric wall thickening. Some dystrophic calci fications in region of right renal bed noted. BOWEL: Mildly dilated distal esophagus with air-fluid level on current study. Suboptimal evaluation w ithout enteric contrast. No suspicious small or large bowel dilatation. Mild wall thickening in the l eft and sigmoid colon without surrounding fat stranding. Finding could reflect a product of mild unco mplicated acute colitis. Correlate clinically. UTERUS/ADNEXA: Uterus surgically absent or markedly atrophic. LYMPH NODES: No greater than 1cm abdominal or pelvic lymph nodes are appreciated. OSSEOUS STRUCTURES: Underlying S-shaped scoliosis. Abnormal contour to the pelvis and bilateral hips with chronic deformity redemonstrated. Correlate for underlying cerebral palsy. OTHER: Moderate to severe mixed plaque in the abdominal aorta extends into branch vessels. Very small caliber distal abdominal aorta is redemonstrated. IMPRESSION: Possible mild uncomplicated acute distal colitis versus product of poor distention. Inter gregorio atrophy or surgical resection of right kidney.
[2020-08-28] MEDS ORDERED: ONDANSETRON 4 MG/2 ML VIAL IVP STA (13:49)
== END 2020-08-28 14:03 | disposition home or self-care (01) ==
LOC: EC 09:36
DX: R10.9 Unspecified abdominal pain (principal); R19.7 Diarrhea, unspecified; R06.02 Shortness of breath; R07.9 Chest pain, unspecified; I48.91 Unspecified atrial fibrillation; I25.10 Atherosclerotic heart disease of native coronary artery without angina pectoris; E11.9 Type 2 diabetes mellitus without complications; E78.5 Hyperlipidemia, unspecified; I10 Essential (primary) hypertension; F41.9 Anxiety disorder, unspecified; K21.9 Gastro-esophageal reflux disease without esophagitis; F17.200 Nicotine dependence, unspecified, uncomplicated; Z79.82 Long term (current) use of aspirin; Z79.899 Other long term (current) drug therapy; Z79.01 Long term (current) use of anticoagulants; Z88.1 Allergy status to other antibiotic agents; Z88.2 Allergy status to sulfonamides; Z86.73 Personal history of transient ischemic attack (TIA), and cerebral infarction without residual deficits; Z90.5 Acquired absence of kidney; Z89.611 Acquired absence of right leg above knee; Z89.612 Acquired absence of left leg above knee
CPT/HCPCS: 36415; 80053; 82150; 83605; 83690; 85025; 81001; 87086; 87077; 87186; 74177; 99285; 96374; 96375 ×3; 96376; 96361; J2405; J0696; J1885; J1170; Q9967

== ENCOUNTER → 2020-10-03 | Outpatient (CLI) | payer OTHER ==
[2020-10-03 19:22] LABS: INR 1.78 (0.90-1.11); Prothrombin Time 18.7 sec (9.9-11.9)
[2020-10-03 21:25] LABS: HCT 43.8 % (37.2-46.3); HGB 13.7 g/dL (12.0-15.0); MCH 27.1 pg (27.0-32.0); MCHC 31.3 g/dL (32.0-37.0); MCV 86.6 fL (80.0-97.0); Mean Platelet Volume 10.8 fL (9.5-12.2); Platelet Count 327 X 10*3/uL (140-440); RBC 5.06 X 10*6/uL (4.10-5.20); RDW 16.6 % (11.5-14.5); WBC 9.28 X 10*3/uL (4.50-10.00)
[2020-10-04 08:57] LABS: African American GFR (CKD) 112.4 (60.0-200.0); Anion Gap 10.8 mmol/L (4.00-12.00); BUN/Creat Ratio 36.67 Ratio (12.00-20.00); Calcium 9.1 mg/dL (8.7-10.3); Carbon Dioxide 23.2 mmol/L (21.6-31.8); Chol/HDL Ratio 5.41; LDL Cholesterol,Calculated 77.2 mg/dL (0.0-131.0); Magnesium 1.6 mg/dL (1.5-2.4); Total Bilirubin 0.2 mg/dL (0.2-1.2); VLDL Calculation 50.8 mg/dL (5.00-40.00)
== END | disposition home or self-care (01) ==
LOC: LABWHC1 10:54
PROVIDERS: ATTEND Nurse Practitioner Adult Health
DX: R69 Illness, unspecified (principal)
CPT/HCPCS: 36415; 80053; 80061; 83735; 84439; 84443; 84481; 85027; 85610

== ENCOUNTER 2020-11-09 13:06 | Emergency (ER) | payer OTHER ==
[2020-11-09] MEDS ORDERED: SODIUM CHLORIDE 0.9% 500 ML 500 ML IV STA (13:08)
[2020-11-09] MEDS ORDERED: LORazepam 2 MG/ML INJ IV STA (13:09)
--- NOTE | 2020-11-09 13:12 | ED ---
General Adult HPI - General Stated complaint: Abd pain Time Seen by Provider: 11/09/20 13:06 Source: patient, RN notes reviewed, old records reviewed - History of Present Illness Initial comments: This is a 65-year-old patient with bilateral AKA's and a history of nephrectomy on the right. Patient comes in stating that she's had left-sided abdominal pain for a couple of days. Patient states she takes her [place] was at home but has not alleviating any pain. Patient denies any nausea vomiting diarrhea. Patient denies any chest pain difficult breathing shortness of breath. According to EMS her blood pressure was high it will be repeated here. Patient denies any injury. Patient denies any recent fever chills or cough. Patient states that this pain in her left side is been there for months. Patient states no one can find out what it is. - Related Data Home Medications Medication Instructions Recorded Confirmed ALPRAZolam [Xanax] 0.5 mg PO BID 01/20/19 08/28/20 Warfarin [Coumadin] 2 mg PO SUTUTH 01/20/19 08/28/20 Warfarin [Coumadin] 3 mg PO MOWEFRSA 10/29/19 08/28/20 Atorvastatin Calcium [Lipitor] 80 mg PO HS 12/25/19 08/28/20 Baclofen [Lioresal] 5 mg PO TID 12/25/19 08/28/20 Melatonin 10 mg PO HS PRN 12/25/19 08/28/20 Morphine Sulfate ER [Ms Contin] 30 mg PO Q12H 12/25/19 08/28/20 Ondansetron Odt [Zofran ODT] 8 mg PO Q8HR PRN 12/25/19 08/28/20 Valsartan [Diovan] 160 mg PO BID 12/25/19 08/28/20 busPIRone HCl [Buspar] 10 mg PO TID 12/25/19 08/28/20 Simethicone [Gas-X] 250 mg PO DAILY PRN 02/24/20 08/28/20 Aspirin EC [Ecotrin Low Dose] 81 mg PO DAILY 03/20/20 08/28/20 polyethylene glycoL 3350 [Miralax] 17 gm PO DAILY PRN 03/20/20 08/28/20 amLODIPine [Norvasc] 5 mg PO DAILY 03/27/20 08/28/20 Docusate [Colace] 100 mg PO DAILY PRN 08/28/20 08/28/20 Pantoprazole Sodium [Protonix] 40 mg PO DAILY 08/28/20 08/28/20 cloNIDine HCL [Catapres] 0.2 mg PO TID 08/28/20 08/28/20 oxyCODONE HCL [oxyCODONE HCL (IR)] 10 mg PO Q4H PRN 08/28/20 08/28/20 Allergies Allergy/AdvReac Type Severity Reaction Status Date / Time sulfamethoxazole Allergy Itching Verified 11/09/20 13:17 [From Septra] trimethoprim [From Septra] Allergy Itching Verified 11/09/20 13:17 levofloxacin [From Levaquin] AdvReac Muscle Pain Verified 11/09/20 13:17 nitrofurantoin AdvReac Unknown Verified 11/09/20 13:17 [From Macrobid] Review of Systems ROS Statement: Those systems with pertinent positive or pertinent negative responses have been documented in the HPI. ROS Other: All systems not noted in ROS Statement are negative. Past Medical History Past Medical History: Atrial Fibrillation, Coronary Artery Disease (CAD), CVA/TIA, Diabetes Mellitus, GERD/Reflux, Hyperlipidemia, Hypertension Additional Past Medical History / Comment(s): hx urinary retention, Nephrolithiasis, recurrent UTI, double amputation lower extremities, aka. small cyst on kidney, pt states no longer diabetic, right kidney removal. 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 Right kidney removal july 2020 Past Anesthesia/Blood Transfusion Reactions: No Reported Reaction Additional Past Anesthesia/Blood Transfusion Reaction / Comment(s): Pt received blood in 1978-no reaction reported. Past Psychological History: Anxiety Smoking Status: Current every day smoker Past Alcohol Use History: None Reported Past Drug Use History: None Reported - Past Family History Father Family Medical History: Cancer, Myocardial Infarction ([place]) Additional Family Medical History / Comment(s): Father had lung cancer-went into remission. He of a massive [place] in his 60's Mother Family Medical History: Cancer Additional Family Medical History / Comment(s): Mother of lung cancer at age 54 yrs. General Exam - General Exam Comments Initial Comments: GENERAL: Patient is well-developed and well-nourished. Patient is nontoxic and well- hydrated and is in mild distress. ENT: Neck is soft and supple. No significant lymphadenopathy is noted. Oropharynx is clear. Moist mucous membranes. Neck has full range of motion without eliciting any pain. EYES: The sclera were anicteric and conjunctiva were pink and moist. Extraocular movements were intact and pupils were equal round and reactive to light. Eyelids were unremarkable. PULMONARY: Unlabored respirations. Good breath sounds bilaterally. No audible rales rhonchi or wheezing was noted. CARDIOVASCULAR: There is a regular rate and rhythm without any murmurs gallops or rubs. ABDOMEN: Soft and nontender with normal bowel sounds. There was no area of tenderness on palpation SKIN: Skin is clear with no lesions or rashes and otherwise unremarkable. NEUROLOGIC: Patient is alert and oriented x3. Cranial nerves II through XII are grossly intact. Normal speech, volume and content. Symmetrical smile. MUSCULOSKELETAL: Patient has bilateral AKA's. LYMPHATICS: No significant lymphadenopathy is noted PSYCHIATRIC: Normal psychiatric evaluation. Course Vital Signs 11/09/20 11/09/20 13:12 13:43 Temperature 99.6 F Pulse Rate 91 83 Respiratory 20 20 Rate Blood Pressure 179/106 145/88 O2 Sat by Pulse 95 95 Oximetry Medical Decision Making - Medical Decision Making EKG shows normal sinus rhythm at 70 bpm MS interval is 148 QRS is 70 QT interval 384 QTC is 437. Patient's EKG shows no ST segment elevation or depression. We'll begin the room to reevaluate the patient she was not vomiting she was spitting up saliva but she did say she was nauseated so I did give her some Reglan. - Lab Data Result diagrams: 11/09/20 13:59 11/09/20 13:59 Lab Results 11/09/20 11/09/20 Range/Units 13:59 13:59 WBC 7.4 (3.8-10.6) k/uL RBC 5.91 H (3.80-5.40) m/uL Hgb 16.5 H (11.4-16.0) gm/dL Hct 48.3 H (34.0-46.0) % MCV 81.7 (80.0-100.0) fL MCH 27.9 (25.0-35.0) pg MCHC 34.2 (31.0-37.0) g/dL RDW 16.4 H (11.5-15.5) % Plt Count 363 (150-450) k/uL MPV 7.8 Neutrophils % 58 % Lymphocytes % 33 % Monocytes % 7 % Eosinophils % 1 % Basophils % 1 % Neutrophils # 4.3 (1.3-7.7) k/uL Lymphocytes # 2.4 (1.0-4.8) k/uL Monocytes # 0.5 (0-1.0) k/uL Eosinophils # 0.1 (0-0.7) k/uL Basophils # 0.1 (0-0.2) k/uL Anisocytosis Slight Sodium 140 (137-145) mmol/L Potassium 4.3 (3.5-5.1) mmol/L Chloride 109 H (98-107) mmol/L Carbon Dioxide 22 (22-30) mmol/L Anion Gap 9 mmol/L BUN 18 H (7-17) mg/dL Creatinine 0.53 (0.52-1.04) mg/dL Est GFR (CKD-EPI)AfAm >90 (>60 ml/min/1.73 sqM) Est GFR (CKD-EPI)NonAf >90 (>60 ml/min/1.73 sqM) Glucose 117 H (74-99) mg/dL Calcium 9.7 (8.4-10.2) mg/dL Total Bilirubin 0.5 (0.2-1.3) mg/dL AST 25 (14-36) U/L ALT 22 (4-34) U/L Alkaline Phosphatase 136 H (38-126) U/L Total Protein 6.9 (6.3-8.2) g/dL Albumin 3.9 (3.5-5.0) g/dL Amylase 78 (30-110) U/L Lipase 320 H (23-300) U/L Disposition Clinical Impression: Abdominal pain Disposition: HOME SELF-CARE Condition: Good Instructions (If sedation given, give patient instructions): Abdominal Pain (ED) Is patient prescribed a controlled substance at d/c from ED?: No Referrals: None,Stated [REFERRING] - 1-2 days Time of Disposition: 15:01
[2020-11-09 14:30] LABS: Anisocytosis Slight; Basophils # (A) 0.1 k/uL (0-0.2); Basophils % (A) 1 %; Eosinophils # (A) 0.1 k/uL (0-0.7); Eosinophils % (A) 1 %; HCT 48.3 % (34.0-46.0); HGB 16.5 gm/dL (11.4-16.0); Lymphocytes # (A) 2.4 k/uL (1.0-4.8); Lymphocytes % (A) 33 %; MCH 27.9 pg (25.0-35.0); MCHC 34.2 g/dL (31.0-37.0); MCV 81.7 fL (80.0-100.0); Mean Platelet Volume 7.8; Monocytes # (A) 0.5 k/uL (0-1.0); Monocytes % (A) 7 %; Neutrophils # (A) 4.3 k/uL (1.3-7.7); Neutrophils % (A) 58 %; Platelet Count 363 k/uL (150-450); RBC 5.91 m/uL (3.80-5.40); RDW 16.4 % (11.5-15.5); WBC 7.4 k/uL (3.8-10.6)
[2020-11-09 14:50] LABS: ALT 22 U/L (4-34); AST 25 U/L (14-36); African American GFR (CKD) >90 (>60 ml/min/1.73 sqM); Albumin 3.9 g/dL (3.5-5.0); Alkaline Phosphatase 136 U/L (38-126); Amylase 78 U/L (30-110); Anion Gap 9 mmol/L; Blood Urea Nitrogen 18 mg/dL (7-17); Calcium 9.7 mg/dL (8.4-10.2); Carbon Dioxide 22 mmol/L (22-30); Chloride 109 mmol/L (98-107); Glucose 117 mg/dL (74-99); Lipase 320 U/L (23-300); Non-African American GFR(CKD) >90 (>60 ml/min/1.73 sqM); Potassium 4.3 mmol/L (3.5-5.1); Sodium 140 mmol/L (137-145); Total Bilirubin 0.5 mg/dL (0.2-1.3); Total Protein 6.9 g/dL (6.3-8.2)
[2020-11-09] MEDS ORDERED: HYDROmorphone 0.5 MG/0.5 ML SYRINGE IVP STA (15:00)
[2020-11-09] MEDS ORDERED: METOCLOPRAMIDE 5 MG/ML 2 ML VIAL IVP STA (15:00)
[2020-11-09 15:28] LABS: Appearance,Urine Clear (Clear); Bacteria,Urine Rare /hpf; Bilirubin,Urine Negative (Negative); Blood,Urine Trace (Negative); Color,Urine Yellow; Glucose,Urine (UA) Negative (Negative); Ketones,Urine Negative (Negative); Leukocyte Esterase,Urine Trace (Negative); Mucus,Urine Rare /hpf; Nitrite,Urine Negative (Negative); PH, Urine 5.5 (5.0-8.0); Protein,Urine Trace (Negative); RBC,Urine 1 /hpf (0-5); Specific Gravity,Urine 1.015 (1.001-1.035); Squamous Epithelial Cell,Urine 1 /hpf (0-4); Urobilinogen,Urine <2.0 mg/dL (<2.0); WBC,Urine 3 /hpf (0-5)
[2020-11-09 17:25] VITALS: BP 149/72; PULSE 81; RESP 20; TEMP 98.9
== END 2020-11-09 17:23 | disposition home or self-care (01) ==
LOC: EC 13:06
DX: R10.9 Unspecified abdominal pain (principal); E11.9 Type 2 diabetes mellitus without complications; E78.5 Hyperlipidemia, unspecified; F17.200 Nicotine dependence, unspecified, uncomplicated; F41.9 Anxiety disorder, unspecified; I10 Essential (primary) hypertension; I25.10 Atherosclerotic heart disease of native coronary artery without angina pectoris; I48.91 Unspecified atrial fibrillation; K21.9 Gastro-esophageal reflux disease without esophagitis; Z79.01 Long term (current) use of anticoagulants; Z79.82 Long term (current) use of aspirin; Z86.73 Personal history of transient ischemic attack (TIA), and cerebral infarction without residual deficits
CPT/HCPCS: 36415; 93005; 80053; 82150; 83690; 85025; 81001; 99284; 96374; 96375; 96361; J2060; J2765; J1170

== ENCOUNTER 2020-11-10 14:37 | Emergency (ER) | payer OTHER ==
[2020-11-10] MEDS ORDERED: ONDANSETRON 4 MG/2 ML VIAL IVP STA (17:33)
[2020-11-10] MEDS ORDERED: HYDROmorphone 0.5 MG/0.5 ML SYRINGE IVP STA ×3 (17:33→20:41)
[2020-11-10] MEDS ORDERED: SODIUM CHLORIDE 0.9% 500 ML 500 ML IV STA (17:34)
--- NOTE | 2020-11-10 17:54 | ED ---
General Adult HPI - General Source: patient Mode of arrival: EMS Limitations: physical limitation <Qamar Thomas - Last Filed: 11/10/20 19:47> <Cinthya Coronel - Last Filed: 11/11/20 07:54> - General Chief complaint: Nausea/Vomiting/Diarrhea Stated complaint: Diarrhea Time Seen by Provider: 11/10/20 17:01 - History of Present Illness Initial comments: 65-year-old female with a past medical history of bilateral AKA, A. fib, CAD, diabetes mellitus, hyperlipidemia, hypertension presents to the emergency room for a chief complaint of abdominal pain. Patient reports she is having left lower quadrant abdominal pain for the past 12 hours. States this started around 4 AM this morning. States she has had diarrhea as well as some nausea with this.patient denies fevers. Patient has no other complaints at this time including shortness of breath, chest pain, headache, or visual changes. (Qamar Thomas) - Related Data Home Medications Medication Instructions Recorded Confirmed ALPRAZolam [Xanax] 0.5 mg PO BID 01/20/19 08/28/20 Warfarin [Coumadin] 2 mg PO SUTUTH 01/20/19 08/28/20 Warfarin [Coumadin] 3 mg PO [id number] 10/29/19 08/28/20 Atorvastatin Calcium [Lipitor] 80 mg PO HS 12/25/19 08/28/20 Baclofen [Lioresal] 5 mg PO TID 12/25/19 08/28/20 Melatonin 10 mg PO HS PRN 12/25/19 08/28/20 Morphine Sulfate ER [Ms Contin] 30 mg PO Q12H 12/25/19 08/28/20 Ondansetron Odt [Zofran ODT] 8 mg PO Q8HR PRN 12/25/19 08/28/20 Valsartan [Diovan] 160 mg PO BID 12/25/19 08/28/20 busPIRone HCl [Buspar] 10 mg PO TID 12/25/19 08/28/20 Simethicone [Gas-X] 250 mg PO DAILY PRN 02/24/20 08/28/20 Aspirin EC [Ecotrin Low Dose] 81 mg PO DAILY 03/20/20 08/28/20 polyethylene glycoL 3350 [Miralax] 17 gm PO DAILY PRN 03/20/20 08/28/20 amLODIPine [Norvasc] 5 mg PO DAILY 03/27/20 08/28/20 Docusate [Colace] 100 mg PO DAILY PRN 08/28/20 08/28/20 Pantoprazole Sodium [Protonix] 40 mg PO DAILY 08/28/20 08/28/20 cloNIDine HCL [Catapres] 0.2 mg PO TID 08/28/20 08/28/20 oxyCODONE HCL [oxyCODONE HCL (IR)] 10 mg PO Q4H PRN 08/28/20 08/28/20 Previous Rx's Medication Instructions Recorded Cephalexin [Keflex] 500 mg PO Q6HR 10 Days #40 cap 11/10/20 Ondansetron [Zofran ODT] 4 mg PO Q8HR PRN #15 tab 11/10/20 Allergies Allergy/AdvReac Type Severity Reaction Status Date / Time sulfamethoxazole Allergy Itching Verified 11/10/20 15:41 [From Septra] trimethoprim [From Septra] Allergy Itching Verified 11/10/20 15:41 levofloxacin [From Levaquin] AdvReac Muscle Pain Verified 11/10/20 15:41 nitrofurantoin AdvReac Unknown Verified 11/10/20 15:41 [From Macrobid] Review of Systems ROS Other: All systems not noted in ROS Statement are negative. <Qamar Thomas P - Last Filed: 11/10/20 19:47> ROS Other: All systems not noted in ROS Statement are negative. <Cinthya Coronel - Last Filed: 11/11/20 07:54> ROS Statement: Those systems with pertinent positive or pertinent negative responses have been documented in the HPI. Past Medical History Past Medical History: Atrial Fibrillation, Coronary Artery Disease (CAD), CVA/TIA, Diabetes Mellitus, GERD/Reflux, Hyperlipidemia, Hypertension Additional Past Medical History / Comment(s): hx urinary retention, Nephrolit hiasis, recurrent UTI, double amputation lower extremities, aka. small cyst on kidney, pt states no longer diabetic, right kidney removal. 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 Right kidney removal july 2020 Past Anesthesia/Blood Transfusion Reactions: No Reported Reaction Additional Past Anesthesia/Blood Transfusion Reaction / Comment(s): Pt received blood in 1978-no reaction reported. Past Psychological History: Anxiety Smoking Status: Current every day smoker Past Alcohol Use History: None Reported Past Drug Use History: None Reported - Past Family History Father Family Medical History: Cancer, Myocardial Infarction ([place]) Additional Family Medical History / Comment(s): Father had lung cancer-went into remission. He of a massive [place] in his 60's Mother Family Medical History: Cancer Additional Family Medical History / Comment(s): Mother of lung cancer at age 54 yrs. <Qamar Thomas P - Last Filed: 11/10/20 19:47> General Exam Limitations: physical limitation General appearance: alert, in no apparent distress Head exam: Present: atraumatic, normocephalic, normal inspection Eye exam: Present: normal appearance, PERRL, EOMI. Absent: scleral icterus, conjunctival injection, periorbital swelling ENT exam: Present: normal exam, mucous membranes moist Neck exam: Present: normal inspection, full ROM. Absent: tenderness, men ingismus, lymphadenopathy Respiratory exam: Present: normal lung sounds bilaterally. Absent: respiratory distress, wheezes, rales, rhonchi, stridor Cardiovascular Exam: Present: regular rate, normal rhythm, normal heart sounds. Absent: systolic murmur, diastolic murmur, rubs, gallop, clicks GI/Abdominal exam: Present: soft, normal bowel sounds. Absent: distended, tenderness, guarding, rebound, rigid Back exam: Absent: CVA tenderness (R), CVA tenderness (L) <Qamar Thomas P - Last Filed: 11/10/20 19:47> Course Vital Signs 11/10/20 11/10/20 11/10/20 15:39 18:00 21:07 Temperature 98.2 F 98.3 F Pulse Rate 76 73 Respiratory 24 18 20 Rate Blood Pressure 140/90 139/88 O2 Sat by Pulse 97 96 Oximetry Medical Decision Making - Lab Data Result diagrams: 11/10/20 Unknown 11/10/20 Unknown <Qamar Thomas - Last Filed: 11/10/20 19:47> - Lab Data Result diagrams: 11/10/20 Unknown 11/10/20 Unknown <Cinthya Coronel - Last Filed: 11/11/20 07:54> - Medical Decision Making Vitals are stable. HPI and physical exam as directed. Patient presents for nausea vomiting diarrhea and abdominal pain. CBC is unremarkable. Hemoglobin 16.8, patient given fluids. Likely from slight concentration. CMP is unremarkable. Urinalysis does show possible urinary tract infection. Patient was given a dose of IV Rocephin. CT abdomen and pelvis was obtained without contrast given solitary kidney. CT shows no acute abnormality. Patient feeling better after pain medications. Suspect patient is having bowel spasms from nausea vomiting diarrhea. UTI could also be contributing to the pain however no CVA tenderness. Patient will be treated outpatient with oral antibiotics. We will send a urine culture. She will be given Zofran as well. She will follow up with primary care and return here for any worsening symptoms. (Qamar Thomas) I was available for consultation in the emergency department. The history and physical exam were done by the midlevel provider. I was consulted for this patients care. I reviewed the case with the midlevel provider and based on their presentation of the patient, I agree with the assessment, medical decision making and plan of care as documented. Chart was dictated using [employer] dictation software. Attempts were made to correct any dictation errors however some typographical errors may persist. (Cinthya Coronel) - Lab Data Lab Results 11/10/20 11/10/20 11/10/20 Range/Units 18:30 20:38 Unknown WBC 8.0 (3.8-10.6) k/uL RBC 5.87 H (3.80-5.40) m/uL Hgb 16.8 H (11.4-16.0) gm/dL Hct 47.2 H (34.0-46.0) % MCV 80.4 (80.0-100.0) fL MCH 28.7 (25.0-35.0) pg MCHC 35.7 (31.0-37.0) g/dL RDW 15.9 H (11.5-15.5) % Plt Count 343 (150-450) k/uL MPV 7.3 Neutrophils % 46 % Lymphocytes % 44 % Monocytes % 6 % Eosinophils % 1 % Basophils % 1 % Neutrophils # 3.7 (1.3-7.7) k/uL Lymphocytes # 3.5 (1.0-4.8) k/uL Monocytes # 0.5 (0-1.0) k/uL Eosinophils # 0.1 (0-0.7) k/uL Basophils # 0.1 (0-0.2) k/uL Microcytosis Slight Sodium (137-145) mmol/L Potassium (3.5-5.1) mmol/L Chloride (98-107) mmol/L Carbon Dioxide (22-30) mmol/L Anion Gap mmol/L BUN (7-17) mg/dL Creatinine (0.52-1.04) mg/dL Est GFR (CKD-EPI)AfAm (>60 ml/min/1.73 sqM) Est GFR (CKD-EPI)NonAf (>60 ml/min/1.73 sqM) Glucose (74-99) mg/dL Calcium (8.4-10.2) mg/dL Total Bilirubin (0.2-1.3) mg/dL AST (14-36) U/L ALT (4-34) U/L Alkaline Phosphatase (38-126) U/L Total Protein (6.3-8.2) g/dL Albumin (3.5-5.0) g/dL Amylase (30-110) U/L Lipase (23-300) U/L Urine Color Yellow Urine Appearance Clear (Clear) Urine pH 5.5 (5.0-8.0) Ur Specific [place] 1.016 (1.001-1.035) Urine Protein Trace H (Negative) Urine Glucose (UA) Negative (Negative) Urine Ketones Negative (Negative) Urine Blood Negative (Negative) Urine Nitrite Negative (Negative) Urine Bilirubin Negative (Negative) Urine Urobilinogen <2.0 (<2.0) mg/dL Ur Leukocyte Esterase Large H (Negative) Urine RBC 3 (0-5) /hpf Urine WBC 30 H (0-5) /hpf Ur Squamous Epith Cells 1 (0-4) /hpf Urine Bacteria Rare H (None) /hpf Urine Mucus Occasional H (None) /hpf Coronavirus (PCR) Detected A (Not Detectd) 11/10/20 Range/Units Unknown WBC (3.8-10.6) k/uL RBC (3.80-5.40) m/uL Hgb (11.4-16.0) gm/dL Hct (34.0-46.0) % MCV (80.0-100.0) fL MCH (25.0-35.0) pg MCHC (31.0-37.0) g/dL RDW (11.5-15.5) % Plt Count (150-450) k/uL MPV Neutrophils % % Lymphocytes % % Monocytes % % Eosinophils % % Basophils % % Neutrophils # (1.3-7.7) k/uL Lymphocytes # (1.0-4.8) k/uL Monocytes # (0-1.0) k/uL Eosinophils # (0-0.7) k/uL Basophils # (0-0.2) k/uL Microcytosis Sodium 140 (137-145) mmol/L Potassium 4.1 (3.5-5.1) mmol/L Chloride 110 H (98-107) mmol/L Carbon Dioxide 21 L (22-30) mmol/L Anion Gap 9 mmol/L BUN 15 (7-17) mg/dL Creatinine 0.60 (0.52-1.04) mg/dL Est GFR (CKD-EPI)AfAm >90 (>60 ml/min/1.73 sqM) Est GFR (CKD-EPI)NonAf >90 (>60 ml/min/1.73 sqM) Glucose 101 H (74-99) mg/dL Calcium 9.3 (8.4-10.2) mg/dL Total Bilirubin 0.5 (0.2-1.3) mg/dL AST 27 (14-36) U/L ALT 24 (4-34) U/L Alkaline Phosphatase 140 H (38-126) U/L Total Protein 7.0 (6.3-8.2) g/dL Albumin 4.0 (3.5-5.0) g/dL Amylase 63 (30-110) U/L Lipase 291 (23-300) U/L Urine Color Urine Appearance (Clear) Urine pH (5.0-8.0) Ur Specific [place] (1.001-1.035) Urine Protein (Negative) Urine Glucose (UA) (Negative) Urine Ketones (Negative) Urine Blood (Negative) Urine Nitrite (Negative) Urine Bilirubin (Negative) Urine Urobilinogen (<2.0) mg/dL Ur Leukocyte Esterase (Negative) Urine RBC (0-5) /hpf Urine WBC (0-5) /hpf Ur Squamous Epith Cells (0-4) /hpf Urine Bacteria (None) /hpf Urine Mucus (None) /hpf Coronavirus (PCR) (Not Detectd) Disposition Is patient prescribed a controlled substance at d/c from ED?: No Time of Disposition: 19:49 <Qamar Thomas P - Last Filed: 11/10/20 19:47> <Cinthya Coronel - Last Filed: 11/11/20 07:54> Clinical Impression: Abdominal pain, Urinary tract infection Disposition: HOME SELF-CARE Condition: Good Instructions (If sedation given, give patient instructions): Abdominal Pain (ED) Additional Instructions: Please take antibiotic as directed. Follow-up with primary care in 1-2 days. Return to the emergency room for any worsening symptoms. Prescriptions: Cephalexin [Keflex] 500 mg PO Q6HR 10 Days #40 cap Ondansetron [Zofran ODT] 4 mg PO Q8HR PRN #15 tab PRN Reason: Nausea Referrals: Arvin Aburto MD [Primary Care Provider] - 1-2 days
[2020-11-10 18:22] LABS: Basophils # (A) 0.1 k/uL (0-0.2); Basophils % (A) 1 %; Eosinophils # (A) 0.1 k/uL (0-0.7); Eosinophils % (A) 1 %; HCT 47.2 % (34.0-46.0); HGB 16.8 gm/dL (11.4-16.0); Lymphocytes # (A) 3.5 k/uL (1.0-4.8); Lymphocytes % (A) 44 %; MCH 28.7 pg (25.0-35.0); MCHC 35.7 g/dL (31.0-37.0); MCV 80.4 fL (80.0-100.0); Mean Platelet Volume 7.3; Microcytosis Slight; Monocytes # (A) 0.5 k/uL (0-1.0); Monocytes % (A) 6 %; Neutrophils # (A) 3.7 k/uL (1.3-7.7); Neutrophils % (A) 46 %; Platelet Count 343 k/uL (150-450); RBC 5.87 m/uL (3.80-5.40); RDW 15.9 % (11.5-15.5)
[2020-11-10 18:40] LABS: ALT 24 U/L (4-34); AST 27 U/L (14-36); African American GFR (CKD) >90 (>60 ml/min/1.73 sqM); Alkaline Phosphatase 140 U/L (38-126); Amylase 63 U/L (30-110); Anion Gap 9 mmol/L; Blood Urea Nitrogen 15 mg/dL (7-17); Calcium 9.3 mg/dL (8.4-10.2); Carbon Dioxide 21 mmol/L (22-30); Chloride 110 mmol/L (98-107); Glucose 101 mg/dL (74-99); Lipase 291 U/L (23-300); Non-African American GFR(CKD) >90 (>60 ml/min/1.73 sqM); Potassium 4.1 mmol/L (3.5-5.1); Sodium 140 mmol/L (137-145); Total Bilirubin 0.5 mg/dL (0.2-1.3)
--- NOTE | 2020-11-10 19:16 | CT ---
EXAMINATION TYPE: CT abdomen pelvis wo con DATE OF EXAM: 11/10/2020 COMPARISON: 08/28/2020. HISTORY: Left lower quadrant abdominal pain. CT DLP: 1058.4 mGycm Automated exposure control for dose reduction was used. TECHNIQUE: Helical acquisition of images was performed from the lung bases through the pelvis. FINDINGS: LUNG BASES: Mild bibasilar hazy opacity. LIVER/GB: No acute abnormality is appreciated. Hepatomegaly cholecystectomy seen. PANCREAS: No significant abnormality is seen. SPLEEN: No significant abnormality is seen. ADRENALS: No significant abnormality is seen. KIDNEYS: Stable absent right kidney. No left hydronephrosis or cholelithiasis. Stable irregularity an d apparent of the left kidney inferior pole cortex. FREE AIR: No free air is visualized RETROPERITONEAL ADENOPATHY: None visualized REPRODUCTIVE ORGANS: No significant abnormality is seen URINARY BLADDER: No significant abnormality is seen. PELVIC ADENOPATHY: None visualized. OSSEOUS STRUCTURES: No acute abnormality is seen. Stable moderate dextroconvex scoliosis of the lumb ar spine. Otherwise mild lumbar spondylosis. Stable dysplastic left hip and bilateral hip periarticul ar prominence, may relate to chronic synovitis. BOWEL: No significant abnormality is seen. OTHER: None IMPRESSION: NO ACUTE ABNORMALITY. Chronic and incidental findings as above.
[2020-11-10 19:17] LABS: Appearance,Urine Clear (Clear); Bacteria,Urine Rare /hpf; Bilirubin,Urine Negative (Negative); Blood,Urine Negative (Negative); Color,Urine Yellow; Glucose,Urine (UA) Negative (Negative); Ketones,Urine Negative (Negative); Leukocyte Esterase,Urine Large (Negative); Mucus,Urine Occasional /hpf; Nitrite,Urine Negative (Negative); PH, Urine 5.5 (5.0-8.0); Protein,Urine Trace (Negative); RBC,Urine 3 /hpf (0-5); Specific Gravity,Urine 1.016 (1.001-1.035); Squamous Epithelial Cell,Urine 1 /hpf (0-4); Urobilinogen,Urine <2.0 mg/dL (<2.0); WBC,Urine 30 /hpf (0-5)
[2020-11-10] MEDS ORDERED: cefTRIAXone IN SWFI 1,000 MG/10 ML SYRINGE IVP STA (19:47)
[2020-11-10 21:09] VITALS: BP 139/88; PULSE 73; RESP 20; TEMP 98.3
== END 2020-11-10 21:09 | disposition home or self-care (01) ==
LOC: EC 14:37
DX: N39.0 Urinary tract infection, site not specified (principal); I48.91 Unspecified atrial fibrillation; I25.10 Atherosclerotic heart disease of native coronary artery without angina pectoris; Z86.73 Personal history of transient ischemic attack (TIA), and cerebral infarction without residual deficits; E11.9 Type 2 diabetes mellitus without complications; E78.5 Hyperlipidemia, unspecified; I10 Essential (primary) hypertension; F17.200 Nicotine dependence, unspecified, uncomplicated; F41.9 Anxiety disorder, unspecified; K21.9 Gastro-esophageal reflux disease without esophagitis; Z79.01 Long term (current) use of anticoagulants; Z79.82 Long term (current) use of aspirin; Z79.899 Other long term (current) drug therapy; Z89.611 Acquired absence of right leg above knee; Z89.612 Acquired absence of left leg above knee
CPT/HCPCS: 36415; 80053; 82150; 83690; 85025; 81001; 87086; 87635; 74176; 99284; 96374; 96375 ×2; 96376 ×2; J2405; J0696; J1170

== ENCOUNTER 2020-12-10 12:23 | Inpatient (IN) | payer OTHER ==
[2020-12-10] MEDS ORDERED: ASPIRIN 81 MG PO STA (12:41)
[2020-12-10] MEDS ORDERED: NITROGLYCERIN OINT 1 INCH/GM PACKET TOPICAL STA (12:48)
[2020-12-10] MEDS ORDERED: HYDROmorphone 0.5 MG/0.5 ML SYRINGE IVP STA ×2 (12:48→14:23)
[2020-12-10 13:10] LABS: Basophils # (A) 0.1 k/uL (0-0.2); Basophils % (A) 1 %; Eosinophils # (A) 0.1 k/uL (0-0.7); Eosinophils % (A) 1 %; HCT 48.6 % (34.0-46.0); HGB 16.1 gm/dL (11.4-16.0); Lymphocytes # (A) 2.2 k/uL (1.0-4.8); Lymphocytes % (A) 26 %; MCH 27.7 pg (25.0-35.0); MCV 83.9 fL (80.0-100.0); Mean Platelet Volume 7.9; Monocytes # (A) 0.3 k/uL (0-1.0); Monocytes % (A) 4 %; Neutrophils # (A) 5.6 k/uL (1.3-7.7); Neutrophils % (A) 67 %; Platelet Count 362 k/uL (150-450); RBC 5.79 m/uL (3.80-5.40); WBC 8.4 k/uL (3.8-10.6)
--- NOTE | 2020-12-10 13:13 | ED ---
Chest Pain HPI - General Source: patient, EMS Mode of arrival: EMS Limitations: no limitations <Trent Whitlock - Last Filed: 12/10/20 16:54> <HussainysdniCinthya Michael - Last Filed: 12/21/20 17:32> - General Stated Complaint: Chest Pain Time Seen by Provider: 12/10/20 12:32 - History of Present Illness Initial Comments: 65-year-old female with history A. fib, CAD, CVA, diabetes presents to emergency department for chief complaint of chest pain. States her symptoms began around 2 AM and it was midsternal sharp pain 05/11 without any radiation. She also reports associated dyspnea. States the pain is radiating towards the left side of the abdomen and it pain kept her up all night. The pain is slightly resolved since the onset. Currently 11/09. She also reports feeling dizzy where the room was spinning around her but denies any lightheadedness. She does report having a short diaphoretic episode. He does report feeling nauseous but denies any vomiting. States she took one sublingual nature prior to arrival with some improvement of symptoms. Denies any back pain abdominal pain vomiting or diarrhea. (Trent Whitlock) - Related Data Home Medications Medication Instructions Recorded Confirmed ALPRAZolam [Xanax] 0.5 mg PO BID 01/20/19 12/10/20 Atorvastatin Calcium [Lipitor] 80 mg PO HS 12/25/19 12/10/20 Baclofen [Lioresal] 10 mg PO TID 12/25/19 12/10/20 Melatonin 10 mg PO HS PRN 12/25/19 12/10/20 Ondansetron Odt [Zofran ODT] 8 mg PO Q8HR PRN 12/25/19 12/10/20 Valsartan [Diovan] 160 mg PO BID 12/25/19 12/10/20 busPIRone HCl [Buspar] 10 mg PO TID 12/25/19 12/10/20 Simethicone [Gas-X] 250 mg PO DAILY PRN 02/24/20 12/10/20 Aspirin EC [Ecotrin Low Dose] 81 mg PO DAILY 03/20/20 12/10/20 polyethylene glycoL 3350 [Miralax] 17 gm PO DAILY PRN 03/20/20 12/10/20 amLODIPine [Norvasc] 5 mg PO DAILY 03/27/20 12/10/20 Docusate [Colace] 100 mg PO DAILY PRN 08/28/20 12/10/20 Pantoprazole Sodium [Protonix] 40 mg PO DAILY 08/28/20 12/10/20 Dicyclomine [Bentyl] 20 mg PO TID 12/10/20 12/10/20 HYDROcodone/APAP 10-325MG [[place] 1 tab PO QID 12/10/20 12/10/20 10-325] Nitroglycerin Sl Tabs [Nitrostat] 0.4 mg SUBLINGUAL Q5M PRN 12/10/20 12/10/20 Previous Rx's Medication Instructions Recorded Apixaban [Eliquis] 5 mg PO BID #60 tab 12/12/20 Triamterene-Hctz 37.5-25Mg 1 each PO DAILY #30 cap 12/13/20 [Dyazide 37.5-25 Capsule] carvediloL [Coreg] 6.25 mg PO BID-W/MEALS #60 tab 12/13/20 cloNIDine HCL [Catapres] 0.1 mg PO TID #90 tab 12/13/20 Allergies Allergy/AdvReac Type Severity Reaction Status Date / Time sulfamethoxazole Allergy Itching Verified 12/10/20 17:14 [From Septra] trimethoprim [From Septra] Allergy Itching Verified 12/10/20 17:14 levofloxacin [From Levaquin] AdvReac Muscle Pain Verified 12/10/20 17:14 nitrofurantoin AdvReac Unknown Verified 12/10/20 17:14 [From Macrobid] Review of Systems ROS Other: All systems not noted in ROS Statement are negative. <Trent Whitlock - Last Filed: 12/10/20 16:54> ROS Other: All systems not noted in ROS Statement are negative. <Cinthya Coronel - Last Filed: 12/21/20 17:32> ROS Statement: Those systems with pertinent positive or pertinent negative responses have been documented in the HPI. EKG Findings - EKG Comments: EKG Findings:: Sinus rhythm, Q wave in lead 3. Ventricular rate 83, ID 160, QRS 76, QTC HTZ 446. <Trent Whitlock - Last Filed: 12/10/20 16:54> Past Medical History Past Medical History: Atrial Fibrillation, Coronary Artery Disease (CAD), CVA/TIA, Diabetes Mellitus, GERD/Reflux, Hyperlipidemia, Hypertension Additional Past Medical History / Comment(s): hx urinary retention, Nephrolithiasis, recurrent UTI, double amputation lower extremities, aka. small cyst on kidney, pt states no longer diabetic, right kidney removal. 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 Right kidney removal july 2020 Past Anesthesia/Blood Transfusion Reactions: No Reported Reaction Additional Past Anesthesia/Blood Transfusion Reaction / Comment(s): Pt received blood in 1978-no reaction reported. Past Psychological History: Anxiety Smoking Status: Current every day smoker Past Alcohol Use History: None Reported Past Drug Use History: None Reported - Past Family History Father Family Medical History: Cancer, Myocardial Infarction ([place]) Additional Family Medical History / Comment(s): Father had lung cancer-went into remission. He of a massive [place] in his 60's Mother Family Medical History: Cancer Additional Family Medical History / Comment(s): Mother of lung cancer at age 54 yrs. <Trent Whitlock - Last Filed: 12/10/20 16:54> General Exam Limitations: no limitations General appearance: alert, in no apparent distress Head exam: Present: atraumatic, normocephalic, normal inspection Eye exam: Present: normal appearance, PERRL, EOMI Pupils: Present: normal accommodation ENT exam: Present: normal exam, normal oropharynx, mucous membranes moist, TM's normal bilaterally, normal external ear exam Neck exam: Present: normal inspection, full ROM. Absent: tenderness Respiratory exam: Present: normal lung sounds bilaterally. Absent: respiratory distress, wheezes, rales, rhonchi, stridor, chest wall tenderness, accessory muscle use Cardiovascular Exam: Present: regular rate, normal rhythm, normal heart sounds. Absent: systolic murmur Extremities exam: Present: normal inspection, full ROM, normal capillary refill, other (Bilateral BKA). Absent: tenderness, pedal edema, joint swelling, calf tenderness Back exam: Present: normal inspection, full ROM. Absent: tenderness, CVA tenderness (R), CVA tenderness (L) Neurological exam: Present: alert, oriented X3 Psychiatric exam: Present: normal affect, normal mood Skin exam: Present: warm, dry, intact, normal color <Trent Whitlock - Last Filed: 12/10/20 16:54> Course Vital Signs 12/10/20 12/10/20 12/10/20 12:41 13:02 13:14 Temperature 98.7 F Pulse Rate 89 84 79 Respiratory 20 16 Rate Blood Pressure 174/11 172/98 161/93 O2 Sat by Pulse 96 96 98 Oximetry 12/10/20 12/10/20 12/10/20 13:48 14:05 14:11 Temperature 97.4 F L Pulse Rate 77 77 Respiratory 18 18 Rate Blood Pressure 168/93 165/101 O2 Sat by Pulse 97 Oximetry 12/10/20 12/10/20 12/10/20 14:14 14:58 15:54 Temperature Pulse Rate 74 Respiratory 18 Rate Blood Pressure 192/113 200/96 144/77 O2 Sat by Pulse 98 Oximetry 12/10/20 17:36 Temperature 98.3 F Pulse Rate 78 Respiratory 20 Rate Blood Pressure 153/97 O2 Sat by Pulse 96 Oximetry Chest Pain [facility] <Trent Whitlock - Last Filed: 12/10/20 16:54> <Cinthya Coronel - Last Filed: 12/21/20 17:32> - [facility] 65-year-old female with history A. fib, CAD, CVA, diabetes presents to emergency department for chief complaint of chest pain. On physical examination, no reproducible chest pain. She does have reproducible left-sided abdominal tenderness. Patient was initially hypertensive but this had gradually improved after she was given analgesia. Blood pressure was obtained in bilateral upper extremities and there was a 30 mmHg difference between systolic blood pressures. She is bilateral AKA so was not able to obtain peripheral pulses. I did have a concern for dissection and obtained a CT angiogram of the thoracic abdominal and pelvic aorta. It showed extensive peripheral vascular disease. There is no evident dissection. There is hepatomegaly with hepatic steatosis. There is a possible subaortic stenosis. Radiology is recommending echo. Initial cardiac workup unremarkable. INR 2.1 and is currently on Coumadin. I reviewed her medical record return revealed a cardiac catheterization 2019 with 30-40% lesions in the RCA, circumflex and LAD. No stenting performed. Patient will be admitted for further medical management. Case discussed with . Admitting is Dr Pamela Tonyiology on conslt (Trent Whitlock) I was available for consultation in the emergency department. The history and physical exam were done by the midlevel provider. I was consulted for this patients care. I reviewed the case with the midlevel provider and based on their presentation of the patient, I agree with the assessment, medical decision making and plan of care as documented. Chart was dictated using [employer] dictation software. Attempts were made to correct any dictation errors however some typographical errors may persist. Patient was seen during a national state of emergency due to the Covid-19 pandemic. (Cinthya Coronel) Critical Care Time Critical Care Time: Yes <Cinthya Coronel - Last Filed: 12/21/20 17:32> Critical Care Time: 32 minutes for dx of unstable angina - patient placed on heparin gtt after recommendation of admitting physician (Cinthya Coronel) Disposition Is patient prescribed a controlled substance at d/c from ED?: No Time of Disposition: 16:57 <Trent Whitlock - Last Filed: 12/10/20 16:54> <Cinthya Coronel - Last Filed: 12/21/20 17:32> Clinical Impression: Chest pain Disposition: ADMITTED IP TO THIS HOSP Condition: Good
[2020-12-10 13:25] LABS: ALT 28 U/L (4-34); AST 30 U/L (14-36); African American GFR (CKD) >90 (>60 ml/min/1.73 sqM); Alkaline Phosphatase 129 U/L (38-126); Anion Gap 10 mmol/L; Blood Urea Nitrogen 16 mg/dL (7-17); Calcium 9.4 mg/dL (8.4-10.2); Carbon Dioxide 20 mmol/L (22-30); Chloride 111 mmol/L (98-107); Glucose 136 mg/dL (74-99); Magnesium 1.6 mg/dL (1.6-2.3); Non-African American GFR(CKD) >90 (>60 ml/min/1.73 sqM); Potassium 4.3 mmol/L (3.5-5.1); Sodium 141 mmol/L (137-145); Total Bilirubin 0.4 mg/dL (0.2-1.3)
[2020-12-10 13:28] LABS: INR 2.1 (<1.2); Partial Thromboplastin Time 33.4 sec (22.0-30.0); Prothrombin Time 20.8 sec (9.0-12.0)
[2020-12-10] MEDS ORDERED: ONDANSETRON 4 MG/2 ML VIAL IVP STA ×2 (14:05→16:41)
--- NOTE | 2020-12-10 14:11 | XR ---
EXAMINATION TYPE: XR chest 2V DATE OF EXAM: 12/10/2020 COMPARISON: Chest x-ray 03/25/2020 HISTORY: Chest pain TECHNIQUE: Frontal and lateral views of the chest are obtained. FINDINGS: There is no focal air space opacity, pleural effusion, or pneumothorax seen. The cardiac silhouette size is table, enlarged. The osseous structures are intact. Postop changes noted in the cervical spine. There are overlying cardiac leads. Interstitium is thought to be mildly increased. Pr ominent lung volumes may be indicative of underlying COPD. IMPRESSION: Cardiomegaly, COPD, suspect some interstitial changes are present
[2020-12-10] MEDS ORDERED: hydrALAZINE HCL 20 MG/ML 1 ML VIAL IVP STA (15:15)
--- NOTE | 2020-12-10 16:28 | CT ---
EXAMINATION TYPE: CT angio thor/abd pel aorta DATE OF EXAM: 12/10/2020 COMPARISON: CT 11/10/2020 HISTORY: Pain. R/O dissection. CT DLP: 1487.1 mGycm. Automated Exposure Control for Dose Reduction was Utilized. CONTRAST: CT scan of the thorax, abdomen and pelvis is performed without and with IV Contrast, patient injected with 80 mL of Isovue 370. Three-dimensional reconstructions performed on an alternate workstation. FINDINGS: There are atheromatous changes involving the thoracic aorta, abdominal aorta. As noted on p rior exam marked diminution in the aortic caliber is noted in the abdominal aorta just distal to the superior mesenteric artery origin. Extensive atheromatous plaque is present at this level. Inferior m esenteric artery is patent, superior mesenteric artery is patent, celiac axis is patent, left renal a rtery is patent. Common iliac arteries are diminutive show extensive atheromatous change. External an d internal iliac arteries enhance, there may be subsegmental high-grade stenosis of the distal right external iliac artery, axial image 1:30 shows a marked reduction in caliber, common femoral, proximal deep and superficial femoral arteries show some enhancement. No evident dissection or aortic aneurys m. Super aortic branch vessels are patent. Thoracic aorta shows similar atheromatous change. LUNGS: The lungs are grossly clear, there is no concerning parenchymal mass or nodule identified. T here is no pleural effusion or pneumothorax seen. The tracheobronchial tree is patent. MEDIASTINUM: There are no greater than 1 cm hilar or mediastinal lymph nodes. No pericardial effusi on is seen. OTHER: Questionable caliber change suggesting subaortic stenosis in the axial plane does not appear i s stenotic on the coronal plane. Coronary artery calcifications are present. LIVER/GB: The liver is enlarged and shows low attenuation possibly due to hepatic steatosis, gallblad asmita is surgically absent PANCREAS: No significant abnormality is seen. SPLEEN: No significant abnormality is seen. ADRENALS: No significant abnormality is seen. KIDNEYS: Patient is post right nephrectomy. Left kidney shows a lobular appearance similar to prior e xam. BOWEL: Diverticular changes associated with the colon GENITAL ORGANS: Not seen. LYMPH NODES: No greater than 1cm abdominal or pelvic lymph nodes are appreciated. OSSEOUS STRUCTURES: There is a spinal curvature. Thoracic spondylosis is present. There is air sugges ting a proximal left femoral fracture which appears impacted of questionable age, possibly chronic. OTHER: There is a hiatal hernia. IMPRESSION: Extensive peripheral vascular occlusive disease. No evident dissection. Postop changes. H epatomegaly and hepatic steatosis. Possible subaortic stenosis, echocardiography may be of benefit, c oronary artery disease. Distortion of the proximal left femur as described. Additional findings above .
[2020-12-10] MEDS ORDERED: NITROGLYCERIN SL TABS 0.4 MG TAB SUBLINGUAL PRN ×2 (16:57→20:35)
[2020-12-10] MEDS ORDERED: HEPARIN SODIUM 1,000 UN/ML (10ML VL) IV PRN (17:20)
[2020-12-10] MEDS ORDERED: HEPARIN SOD,PORK IN 0.45% NACL 25,000 UNIT in 0.45% NACL 1 250ML.BAG IV SCH (17:30)
[2020-12-10] MEDS: HYDROcodone/APAP 10-325MG 1 EACH TAB PO PRN (17:37)
[2020-12-10] MEDS ORDERED: MELATONIN 5 MG TABLET PO PRN (20:35)
[2020-12-10] MEDS ORDERED: polyethylene glycoL 3350 17 GM POWD.PACK PO PRN (20:35)
[2020-12-10] MEDS ORDERED: DOCUSATE 100 MG CAP PO PRN (20:35)
[2020-12-10] MEDS ORDERED: SIMETHICONE 80 MG CHEWABLE PO PRN (20:35)
[2020-12-10] MEDS: BACLOFEN 10 MG TAB PO SCH (21:22)
[2020-12-10] MEDS: ALPRAZolam 0.5 MG TAB PO SCH (21:22)
[2020-12-10] MEDS: DICYCLOMINE 20 MG TAB PO SCH (21:22)
[2020-12-10] MEDS: ATORVASTATIN 80 MG TAB PO SCH (21:22)
[2020-12-10] MEDS: VALSARTAN 160 MG TAB PO SCH (21:22)
[2020-12-10] MEDS: busPIRone HCl 10 MG TAB PO SCH (21:22)
[2020-12-10] MEDS: cloNIDine HCL 0.2 MG TAB PO SCH (21:22)
[2020-12-10] MEDS: ONDANSETRON 4 MG/2 ML VIAL IVP PRN (21:23)
[2020-12-10] MEDS: MORPHINE SULFATE 4 MG/ML SYRINGE IVP PRN (21:23)
[2020-12-11] MEDS: MORPHINE SULFATE 4 MG/ML SYRINGE IVP PRN ×4 (03:33→21:34)
[2020-12-11] MEDS: ONDANSETRON 4 MG/2 ML VIAL IVP PRN ×3 (03:34→20:47)
[2020-12-11] MEDS: PANTOPRAZOLE 40 MG TABLET PO SCH (06:32)
[2020-12-11 08:43] LABS: Anisocytosis Slight; Basophils # (A) 0.1 k/uL (0-0.2); Basophils % (A) 1 %; Eosinophils # (A) 0.2 k/uL (0-0.7); Eosinophils % (A) 3 %; HCT 49.6 % (34.0-46.0); Lymphocytes # (A) 4.4 k/uL (1.0-4.8); Lymphocytes % (A) 49 %; MCH 28.6 pg (25.0-35.0); MCHC 32.2 g/dL (31.0-37.0); MCV 88.8 fL (80.0-100.0); Mean Platelet Volume 8.4; Monocytes # (A) 0.5 k/uL (0-1.0); Monocytes % (A) 5 %; Neutrophils # (A) 3.5 k/uL (1.3-7.7); Neutrophils % (A) 39 %; Platelet Count 353 k/uL (150-450); RBC 5.58 m/uL (3.80-5.40)
[2020-12-11 08:47] LABS: African American GFR (CKD) >90 (>60 ml/min/1.73 sqM); Anion Gap 10 mmol/L; Blood Urea Nitrogen 20 mg/dL (7-17); Calcium 8.9 mg/dL (8.4-10.2); Carbon Dioxide 18 mmol/L (22-30); Chloride 112 mmol/L (98-107); Cholesterol 175 mg/dL (<200); Glucose 81 mg/dL (74-99); HDL Cholesterol 36 mg/dL (40-60); LDL Cholesterol,Calculated 106 mg/dL (0-99); Non-African American GFR(CKD) >90 (>60 ml/min/1.73 sqM); Potassium 4.2 mmol/L (3.5-5.1); Sodium 140 mmol/L (137-145); Triglycerides 163 mg/dL (<150)
[2020-12-11] MEDS ORDERED: ASPIRIN 325 MG TAB PO SCH (09:00)
[2020-12-11] MEDS ORDERED: amLODIPine 5 MG TAB PO SCH (09:00)
[2020-12-11 09:01] LABS: INR 2.3 (<1.2); Partial Thromboplastin Time 36.6 sec (22.0-30.0)
--- NOTE | 2020-12-11 09:36 | P.CRDCN ---
History of Present Illness History of present illness: HISTORY OF PRESENTING ILLNESS This is a pleasant 65-year-old female past medical history significant for in moderate coronary artery disease, hypertension, paroxysmal atrial fibril lation on Coumadin, dyslipidemia, diabetes mellitus, right nephrectomy and bilateral wagrq-yaa-coow amputation. She follows in the office with Dr. Prescott. We have been asked to see in consultation for chest pain. She states she woke up last night at 2:00 in the morning with sharp chest pain on the right side of her chest that radiated down the left arm. She was also having significant lower back discomfort which she states is chronic. While at home she also felt her heart racing. This is associated with some mild shortness of breath. On arrival to the emergency department EKG obtained revealed sinus mechanism with no acute ST or T wave abnormalities noted. No arrhythmias have been captured on telemetry tracings. Blood pressure was 174/111 and 172/98. She was given IV hydralazine. Blood pressure this morning 141/78. She continues to have lower back discomfort. Her chest pain has resolved. Breathing is stable. Chest x-ray is negative for acute cardiopulmonary process with evidence of underlying COPD. Laboratory data reviewed, cardiac enzymes negative 3, WBC 9, hemoglobin 16, platelets 353, INR 2.3, sodium 140, potassium 4.2, magnesium 1.6, creatinine 0.64, LDL 106, HDL 36 and total cholesterol 175. Chronic daily cardiac medications include valsartan 160 mg twice a day, clonidine 0.2 mg 3 times a day, amlodipine 5 mg twice a day, aspirin 81 mg daily, atorvastatin 80 mg daily and warfarin. Most recent echocardiogram obtained in the office May 2020 revealed preserved LV systolic function with ejection fraction 60%, moderate concentric LVH, mildly dilated left atrium, aortic valve is calcified with a mean gradient of 9 mmHg, moderate mitral regurgitation. REVIEW OF SYSTEMS At the time of my exam: CONSTITUTIONAL: Denies fever or chills. CARDIOVASCULAR: Denies chest pain, shortness of breath, orthopnea, PND or palpitations. RESPIRATORY: Denies cough. GASTROINTESTINAL: Denies abdominal pain, diarrhea, constipation, nausea or vomiting. MUSCULOSKELETAL: Complains of low back pain. NEUROLOGIC: Denies numbness, tingling, headacbe or weakness. ENDOCRINE: Denies fatigue, weight change, polydipsia or polyurina. GENITOURINARY: Denies burning, hematuria or urgency with micturation. HEMATOLOGIC: Denies history of anemia or bleeding. PHYSICAL EXAMINATION Blood pressure 141/78 heart rate 73 afebrile and maintaining oxygen saturation on room air. CONSTITUTIONAL: No apparent distress. HEENT: Head is normocephalic. Pupils are equal, round. Sclerae anicteric. Mucous membranes of the mouth are moist. No JVD. No carotid bruit. CHEST EXAMINATION: Lungs are clear to auscultation. No chest wall tenderness is noted on palpation or with deep breathing. Diminished bilaterally. HEART EXAMINATION: Regular rate and rhythm. S1, S2 heard. Systolic ejection murmur at the left sternal border, no gallops or rub. Distant heart sounds. ABDOMEN: Soft, nontender. Positive bowel sounds. EXTREMITIES: Bilateral gqxii-[id number] amputation. NEUROLOGIC EXAMINATION: Patient is awake, alert and oriented x3. ASSESSMENT Chest pain, atypical Lumbar back pain Hypertension, uncontrolled Coronary artery disease Dyslipidemia Paroxysmal atrial fibrillation on long-term anticoagulation Right nephrectomy Bilateral hpyie-qqx-lehg amputation Diabetes mellitus PLAN Acute coronary event has been ruled out. Cardiac catheterization performed in 2019 revealed 30-40% disease of the RCA, LAD and circumflex and 50% disease of the OM branch. Maximal medical therapy recommended. Amlodipine dose should be 5 mg twice a day. Add Coreg 6.25 mg twice a day and Maxzide 37.5/25 mg daily. If her blood pressure becomes too low we will wean her off of clonidine. Check manual blood pressures. Obtain bilateral renal artery duplex to assess for renal artery stenosis. Further recommendations to follow based upon clinical course. Thank you kindly for this consultation. Nurse Practitioner note has been reviewed, I agree with a documented findings and plan of care. Patient was seen and examined. Past Medical History Past Medical History: Atrial Fibrillation, Coronary Artery Disease (CAD), CVA/TIA, Diabetes Mellitus, GERD/Reflux, Hyperlipidemia, Hypertension Additional Past Medical History / Comment(s): hx urinary retention, Nephrolithiasis, recurrent UTI, double amputation lower extremities, aka. small cyst on kidney, pt states no longer diabetic, right kidney removal. 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 Right kidney removal july 2020 Past Anesthesia/Blood Transfusion Reactions: No Reported Reaction Additional Past Anesthesia/Blood Transfusion Reaction / Comment(s): Pt received blood in 1978-no reaction reported. Past Psychological History: Anxiety Additional Psychological History / Comment(s): She is independent. She in a bilateral AKA and gets around in a power wheelchair. She has a hospital bed. She no longer drives but takes the bus. Smoking Status: Current every day smoker Past Alcohol Use History: None Reported Additional Past Alcohol Use History / Comment(s): Pt states she started smoking at age 18 yrs and the amount she smokes varies.Smoke a pack in two days Past Drug Use History: None Reported - Past Family History Father Family Medical History: Cancer, Myocardial Infarction (NM) Additional Family Medical History / Comment(s): Father had lung cancer-went into remission. He of a massive NM in his 60's Mother Family Medical History: Cancer Additional Family Medical History / Comment(s): Mother of lung cancer at age 54 yrs. Medications and Allergies Home Medications Medication Instructions Recorded Confirmed Type ALPRAZolam [Xanax] 0.5 mg PO BID 01/20/19 12/10/20 History Atorvastatin Calcium [Lipitor] 80 mg PO HS 12/25/19 12/10/20 History Baclofen [Lioresal] 10 mg PO TID 12/25/19 12/10/20 History Melatonin 10 mg PO HS PRN 12/25/19 12/10/20 History Ondansetron Odt [Zofran ODT] 8 mg PO Q8HR PRN 12/25/19 12/10/20 History Valsartan [Diovan] 160 mg PO BID 12/25/19 12/10/20 History busPIRone HCl [Buspar] 10 mg PO TID 12/25/19 12/10/20 History Simethicone [Gas-X] 250 mg PO DAILY PRN 02/24/20 12/10/20 History Aspirin EC [Ecotrin Low Dose] 81 mg PO DAILY 03/20/20 12/10/20 History polyethylene glycoL 3350 [Miralax] 17 gm PO DAILY PRN 03/20/20 12/10/20 History amLODIPine [Norvasc] 5 mg PO DAILY 03/27/20 12/10/20 History Docusate [Colace] 100 mg PO DAILY PRN 08/28/20 12/10/20 History Pantoprazole Sodium [Protonix] 40 mg PO DAILY 08/28/20 12/10/20 History cloNIDine HCL [Catapres] 0.2 mg PO TID 08/28/20 12/10/20 History Dicyclomine [Bentyl] 20 mg PO TID 12/10/20 12/10/20 History HYDROcodone/APAP 10-325MG [[place] 1 tab PO QID 12/10/20 12/10/20 History 10-325] Nitroglycerin Sl Tabs [Nitrostat] 0.4 mg SUBLINGUAL Q5M PRN 12/10/20 12/10/20 History Warfarin (Unknown Dose) 1 tab PO DIRECTED 12/10/20 12/10/20 History Allergies Allergy/AdvReac Type Severity Reaction Status Date / Time sulfamethoxazole Allergy Itching Verified 12/10/20 17:14 [From Septra] trimethoprim [From Septra] Allergy Itching Verified 12/10/20 17:14 levofloxacin [From Levaquin] AdvReac Muscle Pain Verified 12/10/20 17:14 nitrofurantoin AdvReac Unknown Verified 12/10/20 17:14 [From Macrobid] Physical Exam Vitals: Vital Signs Temp Pulse Pulse Resp BP BP Pulse Ox 12/11/20 04:00 97.5 F L 60 18 141/90 96 12/11/20 00:00 98 F 78 18 118/76 92 L 12/10/20 20:00 98.1 F 68 20 177/85 96 12/10/20 17:36 98.3 F 78 20 153/97 96 12/10/20 15:54 74 18 144/77 98 12/10/20 14:58 200/96 12/10/20 14:14 192/113 12/10/20 14:11 165/101 12/10/20 14:05 97.4 F L 77 18 12/10/20 13:48 77 18 168/93 97 12/10/20 13:14 79 161/93 98 12/10/20 13:02 84 16 172/98 96 12/10/20 12:41 98.7 F 89 20 174/11 96 Intake and Output 12/10/20 12/11/20 12/11/20 22:59 06:59 14:59 Intake Total 540 Output Total 0 200 Balance 540 -200 Intake: Oral 540 Output: Urine 0 200 Other: Voiding Method Bedpan Bedpan Weight 85.275 kg 86.3 kg Results 12/11/20 07:37 12/11/20 07:37 Cardiac Enzymes 12/10/20 12/10/20 12/10/20 Range/Units 12:57 12:57 18:06 AST 30 (14-36) U/L Troponin I <0.012 <0.012 (0.000-0.034) ng/mL 12/10/20 Range/Units 21:19 AST (14-36) U/L Troponin I <0.012 (0.000-0.034) ng/mL Coagulation 12/10/20 12/11/20 12/11/20 Range/Units 12:57 00:18 07:37 PT 20.8 H 22.0 H (9.0-12.0) sec APTT 33.4 H 63.3 H 36.6 H (22.0-30.0) sec Lipids 12/11/20 Range/Units 07:37 Triglycerides 163 H (<150) mg/dL Cholesterol 175 (<200) mg/dL HDL Cholesterol 36 L (40-60) mg/dL CBC 12/10/20 12/11/20 Range/Units 12:57 07:37 WBC 8.4 9.0 (3.8-10.6) k/uL RBC 5.79 H 5.58 H (3.80-5.40) m/uL Hgb 16.1 H 16.0 (11.4-16.0) gm/dL Hct 48.6 H 49.6 H (34.0-46.0) % Plt Count 362 353 (150-450) k/uL Comprehensive Metabolic Panel 12/10/20 12/11/20 Range/Units 12:57 07:37 Sodium 141 140 (137-145) mmol/L Potassium 4.3 4.2 (3.5-5.1) mmol/L Chloride 111 H 112 H (98-107) mmol/L Carbon Dioxide 20 L 18 L (22-30) mmol/L BUN 16 20 H (7-17) mg/dL Creatinine 0.56 0.64 (0.52-1.04) mg/dL Glucose 136 H 81 (74-99) mg/dL Calcium 9.4 8.9 (8.4-10.2) mg/dL AST 30 (14-36) U/L ALT 28 (4-34) U/L Alkaline Phosphatase 129 H (38-126) U/L Total Protein 7.0 (6.3-8.2) g/dL Albumin 4.0 (3.5-5.0) g/dL Current Medications Generic Name Dose Route Start Last Admin Trade Name Freq PRN Reason Stop Dose Admin Hydrocodone Bitart/Acetaminophen 1 each 12/10/20 17:27 12/10/20 17:37 Hydrocodone/Apap 10-325mg 1 Each Tab PO 1 each Q6HR PRN Administration Pain Alprazolam 0.5 mg 12/10/20 21:00 12/10/20 21:22 Alprazolam 0.5 Mg Tab PO 0.5 mg BID REGINA Administration Amlodipine Besylate 5 mg 12/11/20 09:00 Amlodipine 5 Mg Tab PO DAILY REGINA Aspirin 81 mg 12/11/20 09:00 Aspirin 81 Mg PO DAILY REGINA Atorvastatin Calcium 80 mg 12/10/20 21:00 12/10/20 21:22 Atorvastatin 80 Mg Tab PO 80 mg HS REGINA Administration Baclofen 10 mg 12/10/20 22:00 12/10/20 21:22 Baclofen 10 Mg Tab PO 10 mg TID REGINA Administration Buspirone HCl 10 mg 12/10/20 22:00 12/10/20 21:22 Buspirone Hcl 10 Mg Tab PO 10 mg TID REGINA Administration Clonidine 0.2 mg 12/10/20 22:00 12/10/20 21:22 Clonidine Hcl 0.2 Mg Tab PO 0.2 mg TID REGINA Administration Dicyclomine HCl 20 mg 12/10/20 22:00 12/10/20 21:22 Dicyclomine 20 Mg Tab PO 20 mg TID REGINA Administration Docusate Sodium 100 mg 12/10/20 20:35 Docusate 100 Mg Cap PO DAILY PRN Constipation Heparin Sodium (Porcine) 0 unit 12/10/20 17:20 Heparin Sodium 1,000 Un/Ml (10ml Vl) IV PER PROTOCOL PRN Low PTT Protocol Heparin Sodium/Sodium Chloride 250 mls @ 9.977 mls/hr 12/10/20 17:30 12/10/20 17:49 25,000 unit/ Sodium Chloride IV 11.7 units/kg/hr .Q24H REGINA 9.977 mls/hr Administration Protocol 11.7 UNITS/KG/HR Melatonin 10 mg 12/10/20 20:35 Melatonin 5 Mg Tablet PO HS PRN sleep Morphine Sulfate 4 mg 12/10/20 20:39 12/11/20 03:33 Morphine Sulfate 4 Mg/Ml Syringe IVP 4 mg Q6HR PRN Administration Pain Nitroglycerin 0.4 mg 12/10/20 16:57 Nitroglycerin Sl Tabs 0.4 Mg Tab SUBLINGUAL Q5M PRN Chest Pain Nitroglycerin 0.4 mg 12/10/20 20:35 Nitroglycerin Sl Tabs 0.4 Mg Tab SUBLINGUAL Q5M PRN Chest Pain Ondansetron HCl 4 mg 12/10/20 20:39 12/11/20 03:34 Ondansetron 4 Mg/2 Ml Vial IVP 4 mg Q6HR PRN Administration Nausea And Vomiting Pantoprazole Sodium 40 mg 12/11/20 07:30 12/11/20 06:32 Pantoprazole 40 Mg Tablet PO 40 mg DAILY@0730 REGINA Administration Polyethylene Glycol 17 gm 12/10/20 20:35 Polyethylene Glycol 3350 17 Gm Powd.Pack PO DAILY PRN Constipation Simethicone 160 mg 12/10/20 20:35 Simethicone 80 Mg Chewable PO DAILY PRN gas relief Valsartan 160 mg 12/10/20 21:00 12/10/20 21:22 Valsartan 160 Mg Tab PO 160 mg BID REGINA Administration Intake and Output 12/10/20 12/11/20 12/11/20 22:59 06:59 14:59 Intake Total 540 Output Total 0 200 Balance 540 -200 Intake: Oral 540 Output: Urine 0 200 Other: Voiding Method Bedpan Bedpan Weight 85.275 kg 86.3 kg 12/11/20 07:37 12/11/20 07:37
[2020-12-11] MEDS: DICYCLOMINE 20 MG TAB PO SCH ×3 (10:18→20:47)
[2020-12-11] MEDS: ALPRAZolam 0.5 MG TAB PO SCH ×2 (10:18→20:46)
[2020-12-11] MEDS: VALSARTAN 160 MG TAB PO SCH ×2 (10:18→20:46)
[2020-12-11] MEDS: ASPIRIN 81 MG PO SCH (10:18)
[2020-12-11] MEDS: carvediloL 6.25 MG TAB PO SCH ×2 (10:18→17:30)
[2020-12-11] MEDS: cloNIDine HCL 0.2 MG TAB PO SCH ×3 (10:19→20:47)
[2020-12-11] MEDS: busPIRone HCl 10 MG TAB PO SCH ×3 (10:19→20:46)
[2020-12-11] MEDS: BACLOFEN 10 MG TAB PO SCH ×3 (10:19→20:46)
--- NOTE | 2020-12-11 10:47 | US ---
EXAMINATION TYPE: US renal artery duplex complet DATE OF EXAM: 12/11/2020 COMPARISON: CTA dated 12/10/2020 CLINICAL HISTORY: hypertension. MEASUREMENTS: RENAL SIZE: Rt Kidney: surgically absent Lt Kidney: 13.0 x 6.2 x 5.8 cm RESISTANCE INDEX Right: surgically absent Left: 0.58 RA/AO RATIO (< 3.5 ) Right: surgically absent Left: 2.9 RA VELOCITY ( < 180 cm/s) Right: surgically absent Left: 146 Aorta difficult to visualize. Right renal surgically absent. No evidence for renal artery stenosis pe r ultrasound criteria. Recent CTA showed patent left renal artery. Good upstroke on segmental arterie s at left renal hilum. IMPRESSION: No diagnostic evidence of left renal artery stenosis.
[2020-12-11] MEDS ORDERED: MORPHINE SULFATE 2 MG/ML SYRINGE IVP PRN (10:51)
[2020-12-11] MEDS: HYDROcodone/APAP 10-325MG 1 EACH TAB PO PRN (12:48)
[2020-12-11] MEDS: TRIAMTERENE-HCTZ 37.5-25MG 1 EACH CAP PO SCH (12:48)
[2020-12-11] MEDS ORDERED: HYDROcodone/APAP 10-325MG 1 EACH TAB PO SCH (13:00)
--- NOTE | 2020-12-11 13:05 | P.CNOR ---
History of Present Illness - [facility] Consult date: 12/11/20 Consult reason: joint pain (Left hip pain) History of present illness: Patient is a 65-year-old female who presented to [facility] for evaluation of chest pain. Patient was admitted to the hospital for further evaluation, there is been multiple consults placed for multiple medical specialists. Patient also complained of some vague left lower quadrant/groin pain. Our orthopedic team was consult to with regards to the left hip pain. Patient was evaluated today at bedside. She is resting comfortably in her hospital bed. Patient is a very detailed history with regards to her lower extremities. 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 Patient states that she has had a few different kinds of prosthetics or lower extremities. Currently she does not utilize prosthetics. She has a motorized chair that she is able to get around and. Patient states that about 20 years ago an orthopedic surgeon in [facility] did a surgery on her left lower extremity near the hip. She had a very hard time describing the exact surgery. Patient denies any recent trauma to the lower extremities or upper extremities, this including falls. Patient states that she gets on-and-off pain in the left lower extremity. Patient's denies any new onset cervical, thoracic or lumbar pain. She denies any obvious loss of bowel or bladder control. She denies any numbness or tingling in the lower extremities or upper extremities, she denies any paresthesias of the peroneal or genital region. Patient denies any recent illnesses, this including fever or chills. She denies any nausea or vomiting. She denies any headaches, lightheadedness. She does complain of some left lower quadrant/groin pain. She notices this more when she sits for an extended period of time. She does have a history of a right nephrectomy in July 2020. 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 Right kidney removal july 2020 Past Anesthesia/Blood Transfusion Reactions: No Reported Reaction Additional Past Anesthesia/Blood Transfusion Reaction / Comm: Pt received blood in 1978-no reaction reported. Past Psychological History: Anxiety Additional Psychological History / Comment(s): She is independent. She in a bilateral AKA and gets around in a power wheelchair. She has a hospital bed. She no longer drives but takes the bus. Smoking Status: Current every day smoker Past Alcohol Use History: None Reported Additional Past Alcohol Use History / Comment(s): Pt states she started smoking at age 18 yrs and the amount she smokes varies.Smoke a pack in two days Past Drug Use History: None Reported - Past Family History Father Family Medical History: Cancer, Myocardial Infarction ([place]) Additional Family Medical History / Comment(s): Father had lung cancer-went into remission. He of a massive [place] in his 60's Mother Family Medical History: Cancer Additional Family Medical History / Comment(s): Mother of lung cancer at age 54 yrs. Medications and Allergies Home Medications Medication Instructions Recorded Confirmed Type ALPRAZolam [Xanax] 0.5 mg PO BID 01/20/19 12/10/20 History Atorvastatin Calcium [Lipitor] 80 mg PO HS 12/25/19 12/10/20 History Baclofen [Lioresal] 10 mg PO TID 12/25/19 12/10/20 History Melatonin 10 mg PO HS PRN 12/25/19 12/10/20 History Ondansetron Odt [Zofran ODT] 8 mg PO Q8HR PRN 12/25/19 12/10/20 History Valsartan [Diovan] 160 mg PO BID 12/25/19 12/10/20 History busPIRone HCl [Buspar] 10 mg PO TID 12/25/19 12/10/20 History Simethicone [Gas-X] 250 mg PO DAILY PRN 02/24/20 12/10/20 History Aspirin EC [Ecotrin Low Dose] 81 mg PO DAILY 03/20/20 12/10/20 History polyethylene glycoL 3350 [Miralax] 17 gm PO DAILY PRN 03/20/20 12/10/20 History amLODIPine [Norvasc] 5 mg PO DAILY 03/27/20 12/10/20 History Docusate [Colace] 100 mg PO DAILY PRN 08/28/20 12/10/20 History Pantoprazole Sodium [Protonix] 40 mg PO DAILY 08/28/20 12/10/20 History cloNIDine HCL [Catapres] 0.2 mg PO TID 08/28/20 12/10/20 History Dicyclomine [Bentyl] 20 mg PO TID 12/10/20 12/10/20 History HYDROcodone/APAP 10-325MG [[place] 1 tab PO QID 12/10/20 12/10/20 History 10-325] Nitroglycerin Sl Tabs [Nitrostat] 0.4 mg SUBLINGUAL Q5M PRN 12/10/20 12/10/20 History Warfarin [Coumadin] 1 mg PO MOWEFR 12/11/20 12/11/20 History Warfarin [Coumadin] 2 mg PO SUTUTHSA 12/11/20 12/11/20 History Allergies Allergy/AdvReac Type Severity Reaction Status Date / Time sulfamethoxazole Allergy Itching Verified 12/10/20 17:14 [From Septra] trimethoprim [From Septra] Allergy Itching Verified 12/10/20 17:14 levofloxacin [From Levaquin] AdvReac Muscle Pain Verified 12/10/20 17:14 nitrofurantoin AdvReac Unknown Verified 12/10/20 17:14 [From Macrobid] Physical Examination Left lower extremity: No obvious open lesions or sores are present throughout the extremity. There is no obvious ecchymosis or areas of erythema. There is obvious evidence of the [id number] amputation, the stump site appears well-healed, there appears to be no acute skin breakdown. There is a well-healed incision on the lateral aspect of the upper left lower extremity, there is no fluctuance, redness or changes in the skin appreciated around that. She is able to move that remaining left lower extremity, this reproduces no pain in the groin region. Palpation in the general area of the incision, I appreciate no fluctuance, there is no pain with palpation. I'm unable to reproduce any pain with palpation in the groin. She has no posterior buttock pain with palpation. Sensation to light touch is intact throughout that lower extremity. The skin is warm to touch. Exam of the skin of the upper aspect of the left lower extremity and inguinal fold demonstrates no obvious skin breakdown, there is no erythema or areas of soft tissue swelling. General orthopedic exam: Range of motion of the bilateral upper extremities is intact with all major muscle groups Sensation to light touch to bilateral upper extremities intact, skin is warm to touch There is no point tenderness with palpation of the bilateral upper extremities or bilateral lower extremities Results - Labs Labs: Abnormal Lab Results - Last 24 Hours (Table) 12/10/20 12/10/20 12/10/20 Range/Units 12:57 12:57 12:57 RBC 5.79 H (3.80-5.40) m/uL Hgb 16.1 H (11.4-16.0) gm/dL Hct 48.6 H (34.0-46.0) % RDW 16.0 H (11.5-15.5) % PT 20.8 H (9.0-12.0) sec INR 2.1 H (<1.2) APTT 33.4 H (22.0-30.0) sec Chloride 111 H (98-107) mmol/L Carbon Dioxide 20 L (22-30) mmol/L BUN (7-17) mg/dL Glucose 136 H (74-99) mg/dL Alkaline Phosphatase 129 H (38-126) U/L Triglycerides (<150) mg/dL LDL Cholesterol, Calc (0-99) mg/dL HDL Cholesterol (40-60) mg/dL 12/11/20 12/11/20 12/11/20 Range/Units 00:18 07:37 07:37 RBC 5.58 H (3.80-5.40) m/uL Hgb (11.4-16.0) gm/dL Hct 49.6 H (34.0-46.0) % RDW 16.0 H (11.5-15.5) % PT (9.0-12.0) sec INR (<1.2) APTT 63.3 H (22.0-30.0) sec Chloride 112 H (98-107) mmol/L Carbon Dioxide 18 L (22-30) mmol/L BUN 20 H (7-17) mg/dL Glucose (74-99) mg/dL Alkaline Phosphatase (38-126) U/L Triglycerides 163 H (<150) mg/dL LDL Cholesterol, Calc 106 H (0-99) mg/dL HDL Cholesterol 36 L (40-60) mg/dL 12/11/20 Range/Units 07:37 RBC (3.80-5.40) m/uL Hgb (11.4-16.0) gm/dL Hct (34.0-46.0) % RDW (11.5-15.5) % PT 22.0 H (9.0-12.0) sec INR 2.3 H (<1.2) APTT 36.6 H (22.0-30.0) sec Chloride (98-107) mmol/L Carbon Dioxide (22-30) mmol/L BUN (7-17) mg/dL Glucose (74-99) mg/dL Alkaline Phosphatase (38-126) U/L Triglycerides (<150) mg/dL LDL Cholesterol, Calc (0-99) mg/dL HDL Cholesterol (40-60) mg/dL H & H 12/10/20 12/11/20 Range/Units 12:57 07:37 Hgb 16.1 H 16.0 (11.4-16.0) gm/dL Hct 48.6 H 49.6 H (34.0-46.0) % Coagulation 12/10/20 12/11/20 Range/Units 12:57 07:37 INR 2.1 H 2.3 H (<1.2) Result Diagrams: 12/11/20 07:37 12/11/20 07:37 Assessment and Plan Assessment: Left groin/hip pain Abdominal pain, left lower quadrant History of previous left lower extremity/hip surgery History of bilateral [id number] amputations Multiple medical comorbidities Plan: I was able to discuss the case, and this to include both physical exam findings and imaging studies might attending Dr. White. No orthopedic surgical intervention recommended at this time Xrays will be ordered of the left hip and pelvis to further evaluate bony prominences and hardware, further recommendations after images are reviewed Pain control, patient does take [place] 10 mg/325 mg for other chronic problems GI and DVT prophylaxis per primary medical service Other medical surgical tech recommendations Further recommendations to follow Time with Patient: Less than 30
--- NOTE | 2020-12-11 14:07 | XR ---
EXAMINATION TYPE: XR abdomen complete w decub DATE OF EXAM: 12/11/2020 COMPARISON: 03/27/2020 HISTORY: Pain TECHNIQUE: Supine, upright, and left side down lateral decubitus views of the abdomen are obtained. FINDINGS: Bilateral lower lobe consolidation and small effusion. Curvature of the spine. Postsurgical change involving the abdomen. Chronic appearing deformity of the left hip. IMPRESSION: 1. Nonspecific abdomen. 2. Bibasilar lower lobe infiltrate.
--- NOTE | 2020-12-11 14:09 | XR ---
EXAMINATION TYPE: XR Hip Complete LT DATE OF EXAM: 12/11/2020 COMPARISON: NONE HISTORY: Pain TECHNIQUE: 2 views submitted FINDINGS: There is marked deformity of the femoral head and neck. Could been the basis of congenital hip dyspla leona. Visualization is somewhat limited. No obvious acute fracture. Chronic appearing deformity of the left iliac bone. Contrast within the bladder noted. Lucencies are seen overlying the pubic bones whi ch could be associated with hernia. IMPRESSION: 1. 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 Lucencies overlying the pubic rami be associated with bowel hernia correlate clinically.
--- NOTE | 2020-12-11 14:10 | XR ---
EXAMINATION TYPE: XR pelvis AP view DATE OF EXAM: 12/11/2020 COMPARISON: NONE HISTORY: Pain The osseous structures are intact and the joint spaces are preserved. No acute fracture is seen. Vi sualized bowel gas pattern is nonspecific. Contrast within the bladder noted. Arthropathy of the rig ht hip in a chronic appearing dysplastic change of the left hip. Lucencies overlying the pubic rami c an sometimes be associated with inguinal hernia. IMPRESSION: 1. Chronic deformities of the left iliac bone and femoral head and neck. Correlate for congenital hip dysplasia. 2. Lucencies overlying the pubic rami can sometimes be associated with inguinal hernia. Correlate cli nically.
[2020-12-11] MEDS ORDERED: IOPAMIDOL CONTRAST (ORAL USE) VIAL PO PRN (16:28)
--- NOTE | 2020-12-11 16:55 | P.HPIM ---
History of Present Illness H&P Date: 12/11/20 65 years old female patient of mine with past medical history of coronary artery disease hypertension paroxysmal atrial fibrillation on Coumadin, hyperlipidemia, type 2 diabetes, history of renal stones status post left nephrolithiasis to ct May 2017, a history of renal cyst status post right kidney removal in July 2020, bilateral above-knee amputation secondary to defect since the age for likely congenital hip dysplasia, history of CVA, chronic urinary retention, chronic back pain sees Dr watters with chronic UTI infection with history of ESBL seen multiple times in the ER with GI complaints come in on 12/10 with substernal chest pain that woke the patient up at 2 in the morning present on the right side of the chest radiating down to the left arm. She was at home when she felt the pain. Since there was no improvement in pain patient decided to come to the ER. Blood pressure was noted to be elevated in the ER and patient was given 1 dose of IV hydralazine. EKG was obtained which showed sinus rhythm with no acute ST or T-wave abnormalities. Chest x-ray was n egative for any acute cardiopulmonary process with evidence of COPD. Vitals this morning suggests a temp of 97.5 pulse 60 respiratory rate 18 blood pressure 141/98 oxygen saturation are 96% room air hematocrit of 49.5 platelets 353. INR is therapeutic at 2.3. Repeat BMP suggests sodium 140 chloride 112 bicarb 18 BUN 20 creatinine 0.64 and LDL is 106. CTA thorax and abdomen was obtained which is suggestive of extensive peripheral vascular occlusive disease or dissection. Hepatomegaly and hepatic steatosis noted with possible subaortic stenosis. Distortion of the proximal left femur and a possible left femoral fracture. On evaluation this morning patient complains of significant pain in the left lower quadrant of the abdomen that increases with change in position in bed. She also complains of left upper abdominal pain which worsens after having a bowel movement. Patient has also noticed some blood with a bowel movement. She does document to prior history of femur fracture for which repair was attempted 20 years ago. Orthopedic consulted for possible femoral fracture. CT abdomen be obtained with oral contrast. X-rays obtained by orthopedics suggests iinguinal hernia and congenital hip dysplasia with severe deformity involving the left iliac bone femoral head and neck. Review of Systems Constitutional: Denies chills, Denies fever, endorses lethargy, Denies weight loss Eyes: denies decreased vision, denies diplopia, denies discharge, denies pain Ears: deny: decreased hearing Ears, nose, mouth and throat: Denies dental pain, Denies headache, Denies nasal discharge, Denies nose pain Cardiovascular: Chest pain resolved, Denies decreased exercise tolerance, Denies edema, Denies high blood pressure, Denies irregular heart beat, Denies palpitations, Denies paroxysmal nocturnal dyspnea, Denies rapid heart beat, Denies shortness of breath Respiratory: Denies congestion, Denies cough, Denies cough with sputum, Denies dyspnea, Denies home oxygen, Denies wheezing Gastrointestinal: endorses abdominal pain, Denies change in bowel habits, Denies coffee ground emesis, Denies early satiety, Denies excessive gas, Denies heartburn, Denies hematemesis, endorses hematochezia, Denies loss of appetite, Denies nausea, Denies vomiting Genitourinary: Denies dysuria, endorses flank pain, endorses kidney stones, Denies menorrhagia, Denies urgency, Denies urinary frequency Musculoskeletal: endorses limitation of motion, wheelchair bound , Denies morning stiffness, Denies muscle cramps Integumentary: Denies rash, Denies wounds, Denies brittle nails, Denies change in hair/nails, Denies darkening of skin Neurological: Denies balance difficulties, Denies change in speech, Denies double vision, Denies gait dysfunction, Denies loss of vision, Denies motor disturbance, Denies numbness, Denies paralysis, Denies paresthesias, Denies seizures Psychiatric: Denies anxiety, Denies depression Endocrine: Denies excessive sweating, Denies excessive thirst, Denies high blood sugars, Denies palpitations Hematologic/Lymphatic: Denies easy bruising, Denies lymphadenopathy Past Medical History Past Medical History: Atrial Fibrillation, Coronary Artery Disease (CAD), CVA/TIA, Diabetes Mellitus, GERD/Reflux, Hyperlipidemia, Hypertension Additional Past Medical History / Comment(s): hx urinary retention, Nephrolithiasis, recurrent UTI, double amputation lower extremities, aka. small cyst on kidney, pt states no longer diabetic, right kidney removal. 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 Right kidney removal july 2020 Past Anesthesia/Blood Transfusion Reactions: No Reported Reaction Additional Past Anesthesia/Blood Transfusion Reaction / Comment(s): Pt received blood in 1978-no reaction reported. Past Psychological History: Anxiety Additional Psychological History / Comment(s): She is independent. She in a bilateral AKA and gets around in a power wheelchair. She has a hospital bed. She no longer drives but takes the bus. Smoking Status: Current every day smoker Past Alcohol Use History: None Reported Additional Past Alcohol Use History / Comment(s): Pt states she started smoking at age 18 yrs and the amount she smokes varies.Smoke a pack in two days Past Drug Use History: None Reported - Past Family History Father Family Medical History: Cancer, Myocardial Infarction (PR) Additional Family Medical History / Comment(s): Father had lung cancer-went into remission. He of a massive PR in his 60's Mother Family Medical History: Cancer Additional Family Medical History / Comment(s): Mother of lung cancer at age 54 yrs. Medications and Allergies Home Medications Medication Instructions Recorded Confirmed Type ALPRAZolam [Xanax] 0.5 mg PO BID 01/20/19 12/10/20 History Atorvastatin Calcium [Lipitor] 80 mg PO HS 12/25/19 12/10/20 History Baclofen [Lioresal] 10 mg PO TID 12/25/19 12/10/20 History Melatonin 10 mg PO HS PRN 12/25/19 12/10/20 History Ondansetron Odt [Zofran ODT] 8 mg PO Q8HR PRN 12/25/19 12/10/20 History Valsartan [Diovan] 160 mg PO BID 12/25/19 12/10/20 History busPIRone HCl [Buspar] 10 mg PO TID 12/25/19 12/10/20 History Simethicone [Gas-X] 250 mg PO DAILY PRN 02/24/20 12/10/20 History Aspirin EC [Ecotrin Low Dose] 81 mg PO DAILY 03/20/20 12/10/20 History polyethylene glycoL 3350 [Miralax] 17 gm PO DAILY PRN 03/20/20 12/10/20 History amLODIPine [Norvasc] 5 mg PO DAILY 03/27/20 12/10/20 History Docusate [Colace] 100 mg PO DAILY PRN 08/28/20 12/10/20 History Pantoprazole Sodium [Protonix] 40 mg PO DAILY 08/28/20 12/10/20 History cloNIDine HCL [Catapres] 0.2 mg PO TID 08/28/20 12/10/20 History Dicyclomine [Bentyl] 20 mg PO TID 12/10/20 12/10/20 History HYDROcodone/APAP 10-325MG [[place] 1 tab PO QID 12/10/20 12/10/20 History 10-325] Nitroglycerin Sl Tabs [Nitrostat] 0.4 mg SUBLINGUAL Q5M PRN 12/10/20 12/10/20 History Warfarin [Coumadin] 1 mg PO MOWEFR 12/11/20 12/11/20 History Warfarin [Coumadin] 2 mg PO SUTUTHSA 12/11/20 12/11/20 History Allergies Allergy/AdvReac Type Severity Reaction Status Date / Time sulfamethoxazole Allergy Itching Verified 12/10/20 17:14 [From Septra] trimethoprim [From Septra] Allergy Itching Verified 12/10/20 17:14 levofloxacin [From Levaquin] AdvReac Muscle Pain Verified 12/10/20 17:14 nitrofurantoin AdvReac Unknown Verified 12/10/20 17:14 [From Macrobid] Physical Exam Vitals: Vital Signs Temp Pulse Pulse Resp BP BP Pulse Ox 12/11/20 09:37 97 12/11/20 09:30 98.4 F 73 16 141/78 97 12/11/20 04:00 97.5 F L 60 18 141/90 96 12/11/20 00:00 98 F 78 18 118/76 92 L 12/10/20 20:00 98.1 F 68 20 177/85 96 12/10/20 17:36 98.3 F 78 20 153/97 96 12/10/20 15:54 74 18 144/77 98 05/11/21 14:58 200/96 12/10/20 14:14 192/113 12/10/20 14:11 165/101 12/10/20 14:05 97.4 F L 77 18 12/10/20 13:48 77 18 168/93 97 12/10/20 13:14 79 161/93 98 12/10/20 13:02 84 16 172/98 96 12/10/20 12:41 98.7 F 89 20 174/11 96 Intake and Output 12/10/20 12/11/20 12/11/20 22:59 06:59 14:59 Intake Total 540 Output Total 0 200 Balance 540 -200 Intake: Oral 540 Output: Urine 0 200 Other: Voiding Method Bedpan Bedpan Weight 85.275 kg 86.3 kg - Constitutional General appearance: cooperative, mild acute distress, obese - EENT Eyes: anicteric sclerae, PERRLA, normal appearance ENT: hearing grossly normal - Neck Neck: no lymphadenopathy, normal ROM, no other, no rigidity, no stridor, no thyromegaly - Respiratory Respiratory: bilateral: CTA, negative: diminished, dullness, rales, rhonchi - Cardiovascular Rhythm: regular Heart sounds: normal: S1, S2 Abnormal Heart Sounds: no systolic murmur, no diastolic murmur, no rub, no S3 Gallop, no S4 Gallop, no click, no other - Gastrointestinal General gastrointestinal: normal bowel sounds, soft tender left upper and lower quadrant - Integumentary Integumentary: no rash - Neurologic Neurologic: No motor or sensory deficit bilaterally to above knee amputation present - Musculoskeletal Musculoskeletal: Wheelchair bound, strength equal bilaterally no tenderness on m ovement of the joint - Psychiatric Psychiatric: A&O x's 3, appropriate affect Results CBC & Chem 7: 12/11/20 07:37 12/11/20 07:37 Labs: Abnormal Lab Results - Last 24 Hours (Table) 12/10/20 12/10/20 12/10/20 Range/Units 12:57 12:57 12:57 RBC 5.79 H (3.80-5.40) m/uL Hgb 16.1 H (11.4-16.0) gm/dL Hct 48.6 H (34.0-46.0) % RDW 16.0 H (11.5-15.5) % PT 20.8 H (9.0-12.0) sec INR 2.1 H (<1.2) APTT 33.4 H (22.0-30.0) sec Chloride 111 H (98-107) mmol/L Carbon Dioxide 20 L (22-30) mmol/L BUN (7-17) mg/dL Glucose 136 H (74-99) mg/dL Alkaline Phosphatase 129 H (38-126) U/L Triglycerides (<150) mg/dL LDL Cholesterol, Calc (0-99) mg/dL HDL Cholesterol (40-60) mg/dL 12/11/20 12/11/20 12/11/20 Range/Units 00:18 07:37 07:37 RBC 5.58 H (3.80-5.40) m/uL Hgb (11.4-16.0) gm/dL Hct 49.6 H (34.0-46.0) % RDW 16.0 H (11.5-15.5) % PT (9.0-12.0) sec INR (<1.2) APTT 63.3 H (22.0-30.0) sec Chloride 112 H (98-107) mmol/L Carbon Dioxide 18 L (22-30) mmol/L BUN 20 H (7-17) mg/dL Glucose (74-99) mg/dL Alkaline Phosphatase (38-126) U/L Triglycerides 163 H (<150) mg/dL LDL Cholesterol, Calc 106 H (0-99) mg/dL HDL Cholesterol 36 L (40-60) mg/dL 12/11/20 Range/Units 07:37 RBC (3.80-5.40) m/uL Hgb (11.4-16.0) gm/dL Hct (34.0-46.0) % RDW (11.5-15.5) % PT 22.0 H (9.0-12.0) sec INR 2.3 H (<1.2) APTT 36.6 H (22.0-30.0) sec Chloride (98-107) mmol/L Carbon Dioxide (22-30) mmol/L BUN (7-17) mg/dL Glucose (74-99) mg/dL Alkaline Phosphatase (38-126) U/L Triglycerides (<150) mg/dL LDL Cholesterol, Calc (0-99) mg/dL HDL Cholesterol (40-60) mg/dL Thrombosis Risk Factor Assmnt - DVT/VTE Prophylaxis DVT/VTE Prophylaxis: Pharmacologic Prophylaxis ordered - Choose All That Apply Each Factor Represents 1 point: Obesity (BMI >25) Each Risk Factor Represents 2 Points: Age 61-74 years Thrombosis Risk Factor Assessment Total Risk Factor Score: 3 Thrombosis Risk Factor Assessment Level: Moderate Risk Assessment and Plan Plan: #1 acute atypical chest pain ACS ruled out EKG negative for ST or T-wave changes troponin 2 negative. Cardiology consulted continue daily aspirin 81 mg daily, Lipitor 80 mg daily at bedtime #2 hypertension. Amlodipine does it change to 5 mg twice daily Coreg and added at 6.25 twice daily with Maxzide once a day. Continue clonidine 0.2 mg 3 times a day. #3 left lower quadrant abdominal pain on Bentyl 20 mg daily. Tender on examination. Patient denies any history of constipation does document hematochezia. Surgery consulted. CAT scan abdomen with oral and IV contrast ordered to review. Pelvic x-ray concerning for inguinal hernia rule out obstruction #4 chronic femoral fracture with congenital hip dysplasia. History of repair 20 years ago. Orthopedic consulted as patient continues to have left hip pain #5 peripheral artery disease will follow up as outpatient with primary care physician for vascular surgery consultation #6 bilateral lower extremity amputation secondary to congenital hip dysplasia wheelchair-bound #7 paroxysmal atrial fibrillation on warfarin. Plan to switch to NOAC. Continue Coreg 6.25 twice a day. warfarin initiated at 2 mg #8 coronary artery disease cardiac cath 2018 with 30-40% disease in RCA . LAD and circumflex 50% disease of the OM branch. #9 history of CVA on aspirin and Lipitor #10 history of renal stones status post lithotripsy in 2017 #11 right renal cyst status post right nephrectomy #12 chronic urinary retention stable #13 chronic recurrent UTIs history of ESBL. UTIs improved since the removal of kidney #14 dyslipidemia on Lipitor 80 mg by mouth daily #15 type 2 diabetes controlled #16 chronic back pain on [place] 10 every 6 hours. Follows pain specialist as outpatient #17 anxiety and depression BuSpar 10 mg 3 times a dayXanax 0.5 twice a day #18 CODE STATUS full code #19 DVT prophylaxis with warfarin
[2020-12-11] MEDS ORDERED: WARFARIN 2 MG TAB PO ONE (18:00)
[2020-12-11] MEDS: ATORVASTATIN 80 MG TAB PO SCH (20:46)
[2020-12-11] MEDS: amLODIPine 5 MG TAB PO SCH (20:46)
[2020-12-12] MEDS: MORPHINE SULFATE 4 MG/ML SYRINGE IVP PRN ×4 (03:49→21:57)
[2020-12-12] MEDS: ONDANSETRON 4 MG/2 ML VIAL IVP PRN ×2 (04:16→11:47)
[2020-12-12] MEDS: carvediloL 6.25 MG TAB PO SCH ×2 (06:08→18:20)
[2020-12-12] MEDS: PANTOPRAZOLE 40 MG TABLET PO SCH (06:11)
[2020-12-12 09:02] LABS: INR 1.6 (<1.2); Prothrombin Time 15.8 sec (9.0-12.0)
[2020-12-12] MEDS: ASPIRIN 81 MG PO SCH (09:06)
[2020-12-12] MEDS: DICYCLOMINE 20 MG TAB PO SCH ×3 (09:07→20:51)
[2020-12-12] MEDS: cloNIDine HCL 0.2 MG TAB PO SCH (09:07)
[2020-12-12] MEDS: amLODIPine 5 MG TAB PO SCH ×2 (09:07→20:51)
[2020-12-12] MEDS: busPIRone HCl 10 MG TAB PO SCH ×3 (09:07→20:51)
[2020-12-12] MEDS: BACLOFEN 10 MG TAB PO SCH ×3 (09:07→20:51)
[2020-12-12] MEDS: ALPRAZolam 0.5 MG TAB PO SCH ×2 (09:07→20:51)
[2020-12-12] MEDS: VALSARTAN 160 MG TAB PO SCH ×2 (09:07→20:51)
[2020-12-12] MEDS: TRIAMTERENE-HCTZ 37.5-25MG 1 EACH CAP PO SCH (09:07)
--- NOTE | 2020-12-12 10:33 | P.PN ---
Subjective HISTORY OF PRESENTING ILLNESS This is a pleasant 65-year-old female past medical history significant for in moderate coronary artery disease, hypertension, paroxysmal atrial fibrillation on Coumadin, dyslipidemia, diabetes mellitus, right nephrectomy and bilateral [id number] amputation. She follows in the office with Dr. Prescott. We have been asked to see in consultation for chest pain. She states she woke up last night at 2:00 in the morning with sharp chest pain on the right side of her chest that radiated down the left arm. She was also having significant lower back discomfort which she states is chronic. While at home she also felt her heart racing. This is associated with some mild shortness of breath. On arrival to the emergency department EKG obtained revealed sinus mechanism with no acute ST or T wave abnormalities noted. No arrhythmias have been captured on telemetry tracings. Blood pressure was 174/111 and 172/98. She was given IV hydralazine. Blood pressure this morning 141/78. She continues to have lower back discomfort. Her chest pain has resolved. Breathing is stable. Chest x-ray is negative for acute cardiopulmonary process with evidence of underlying COPD. Laboratory data reviewed, cardiac enzymes negative 3, WBC 9, hemoglobin 16, platelets 353, INR 2.3, sodium 140, potassium 4.2, magnesium 1.6, creatinine 0.64, LDL 106, HDL 36 and total cholesterol 175. Chronic daily cardiac medications include valsartan 160 mg twice a day, clonidine 0.2 mg 3 times a day, amlodipine 5 mg twice a day, aspirin 81 mg daily, atorvastatin 80 mg daily and warfarin. Most recent echocardiogram obt ained in the office May 2020 revealed preserved LV systolic function with ejection fraction 60%, moderate concentric LVH, mildly dilated left atrium, aortic valve is calcified with a mean gradient of 9 mmHg, moderate mitral regurgitation. 12/12/2020 Pt seen and examined sitting up in bed in no acute distress. She denies chest pain or shortness of breath. She is still complaining of back pain and also has some tenderness in the left lower quadrant of her abdomen. Blood pressure 186/86 heart rate 61 afebrile and maintaining oxygen saturation on room air. Renal artery duplex negative for stenosis. PHYSICAL EXAMINATION CONSTITUTIONAL: No apparent distress. HEENT: Head is normocephalic. Pupils are equal, round. Sclerae anicteric. Mucous membranes of the mouth are moist. No JVD. No carotid bruit. CHEST EXAMINATION: Lungs are clear to auscultation. No chest wall tenderness is noted on palpation or with deep breathing. Diminished bilaterally. HEART EXAMINATION: Regular rate and rhythm. S1, S2 heard. Systolic ejection murmur at the left sternal border, no gallops or rub. Distant heart sounds. EXTREMITIES: Bilateral [id number] amputation. ASSESSMENT Chest pain, atypical Lumbar back pain Hypertension, uncontrolled Coronary artery disease Dyslipidemia Paroxysmal atrial fibrillation on long-term anticoagulation Right nephrectomy Bilateral eulhn-riz-yeir amputation Diabetes mellitus PLAN The patient is currently being evaluated by the surgery team due to possible hernia. She has a history of significant vascular disease, coronary artery disease, atrial fibrillation and prior cardiomyopathy. She would be an extremely high risk surgical candidate. She would be at risk of CVA and SC intra- operatively. Conservative management recommended. Nurse Practitioner note has been reviewed, I agree with a documented findings and plan of care. Patient was seen and examined. Objective - Vital Signs Vital signs: Vital Signs Temp 98 F 12/12/20 09:00 Pulse 61 12/12/20 09:00 Resp 16 12/12/20 09:00 BP 186/86 12/12/20 09:00 Pulse Ox 98 12/12/20 09:00 Intake & Output 12/11/20 12/12/20 12/12/20 18:59 06:59 18:59 Intake Total 480 480 Output Total 800 800 Balance -320 -320 Weight 88 kg Intake: Oral 480 480 Output: Urine 800 800 Other: Voiding Method Bedpan Bedpan - Labs CBC & Chem 7: 12/11/20 07:37 12/11/20 07:37 Labs: Abnormal Lab Results - Last 24 Hours (Table) 12/12/20 Range/Units 06:59 PT 15.8 H (9.0-12.0) sec INR 1.6 H (<1.2)
--- NOTE | 2020-12-12 11:28 | P.PN ---
Subjective Progress Note Date: 12/12/20 Principal diagnosis: Left hip pain, left congenital hip dysplasia Patient was evaluated today bedside, she is resting in her hospital bed. She still notes occasional discomfort in the left lower quadrant of the abdomen versus groin. She states that it has not worsened. She denies any fever or chills. She has no headaches or lightheadedness Objective - Vital Signs Vital signs: Vital Signs Temp 98 F 12/12/20 09:00 Pulse 61 12/12/20 09:00 Resp 16 12/12/20 09:00 BP 186/86 12/12/20 09:00 Pulse Ox 98 12/12/20 09:00 Intake & Output 12/11/20 12/12/20 12/12/20 18:59 06:59 18:59 Intake Total 480 480 Output Total 800 800 Balance -320 -320 Weight 88 kg Intake: Oral 480 480 Output: Urine 800 800 Other: Voiding Method Bedpan Bedpan - Exam Left lower extremity: No obvious open lesions or sores are present throughout the extremity. There is no obvious ecchymosis or areas of erythema. There is obvious evidence of the [id number]-vzd-[id number] amputation, the stump site appears well-healed, there appears to be no acute skin breakdown. There is a well-healed incision on the lateral aspect of the upper left lower extremity, there is no fluctuance, redness or changes in the skin appreciated around that. She is able to move that remaining left lower extremity, this reproduces no pain in the groin region. Palpation in the general area of the incision, I appreciate no fluctuance, there is no pain with palpation. I'm unable to reproduce any pain with palpation in the groin. She has no posterior buttock pain with palpation. Sensation to light touch is intact throughout that lower extremity. The skin is warm to touch. Exam of the skin of the upper aspect of the left lower extremity and inguinal fo ld demonstrates no obvious skin breakdown, there is no erythema or areas of soft tissue swelling. General orthopedic exam: Range of motion of the bilateral upper extremities is intact with all major muscle groups Sensation to light touch to bilateral upper extremities intact, skin is warm to touch There is no point tenderness with palpation of the bilateral upper extremities or bilateral lower extremities - Labs CBC & Chem 7: 12/11/20 07:37 12/11/20 07:37 Labs: Abnormal Lab Results - Last 24 Hours (Table) 12/12/20 Range/Units 06:59 PT 15.8 H (9.0-12.0) sec INR 1.6 H (<1.2) Assessment and Plan Assessment: Left groin/hip pain Left hip congenital dysplasia Abdominal pain, left lower quadrant History of previous left lower extremity/hip surgery History of bilateral [id number] amputations Multiple medical comorbidities Plan: I was able to review the images and reports with my attending Dr. White. No obvious acute fractures or dislocations are appreciated. Chronic deformity of the femoral head and acetabulum are consistent with congenital hip dysplasia. No orthopedic surgical intervention recommended at this Pain control, patient does take [place] 10 mg/325 mg for other chronic problems GI and DVT prophylaxis per primary medical service Other medical insurance collector recommendations An orthopedic standpoint, patient is stable for discharge. We'll be available for any further questions regarding the patient. Time with Patient: Less than 30
--- NOTE | 2020-12-12 12:05 | CT ---
EXAMINATION TYPE: CT abdomen pelvis w con DATE OF EXAM: 12/12/2020 COMPARISON: HISTORY: abdominal pain, diverticulits, obstructed inguinal hernia CT DLP: 2238.7 mGycm Automated exposure control for dose reduction was used. CONTRAST: CT scan of the abdomen pelvis is performed with IV Contrast, patient injected with 80 mL of Isovue 30 0. FINDINGS- LUNG BASES-no basilar subsegmental changes most typical of atelectasis. LIVER/GB-there are couple tiny less than 5 mm hypodensities within the liver too small to characteriz e. Postcholecystectomy changes seen. Liver measures 23 cm correlate clinically for hepatomegaly. PANCREAS- No gross abnormality is seen. SPLEEN- No gross abnormality is seen. ADRENALS- No gross abnormality is seen. KIDNEYS/BLADDER-cortical loss involving the left kidney. Right kidney appears to be absent correlate clinically. Nonobstructing calculus noted lower pole measuring 2 mm. Mild bladder wall thickening see n.. BOWEL-bowel gas pattern nonspecific with no evidence of obstruction. There is thickening of the dista l wall the esophagus. Appendix not seen with certainty.. LYMPH NODES- No greater than 1cm abdominal or pelvic lymph nodes areappreciated. OSSEOUS STRUCTURES-scoliosis with multilevel hypertrophic and degenerative change. Arthropathy of the shoulders correlate for congenital hip dysplasia greater on the left.. OTHER- atherosclerotic change of the aorta and its sidebranches. Aorta is somewhat diminutive in vilma iber and could not exclude a aortic stenosis. Consider ultrasound or dedicated angiogram. No free fluid or free air. Small fat-containing periumbilical hernia. IMPRESSION- 1. Nonspecific gas pattern with no evidence of obstruction. There is thickening of the distal wall th e esophagus correlate with direct visualization as clinically warranted. 2. Absence of the right kidney stable from prior exam likely congenital cortical loss involving the l eft kidney compatible with chronic medical renal disease and there is a nonobstructing 2 mm lower ajith e calculus 3. Markedly diminutive abdominal aorta with plaque. Cannot exclude a significant stenosis consider ul trasound follow-up. 4. Correlate for congenital hip dysplasia. 5. Mild bladder wall thickening correlate with urinalysis cystitis.
--- NOTE | 2020-12-12 14:07 | P.PN ---
Subjective 65 years old female patient of [employer] with past medical history of coronary artery disease hypertension paroxysmal atrial fibrillation on Coumadin, hyperlipidemia, type 2 diabetes, history of renal stones status post left nephrolithiasis to [place] May 2017, a history of renal cyst status post right kidney removal in July 2020, bilateral above-knee amputation secondary to defect since the age for likely congenital hip dysplasia, history of CVA, chronic urinary retention, chronic back pain sees Dr watters with chronic UTI infection with history of ESBL seen multiple times in the ER with GI complaints come in on 12/10 with substernal chest pain that woke the patient up at 2 in the morning present on the right side of the chest radiating down to the left arm. She was at home when she felt the pain. Since there was no improvement in pain patient decided to come to the ER. Blood pressure was noted to be elevated in the ER and patient was given 1 dose of IV hydralazine. EKG was obtained which showed sinus rhythm with no acute ST or T-wave abnormalities. Chest x-ray was negative for any acute cardiopulmonary process with evidence of COPD. Vitals this morning suggests a temp of 97.5 pulse 60 respiratory rate 18 blood pressure 141/98 oxygen saturation are 96% room air hematocrit of 49.5 platelets 353. INR is therapeutic at 2.3. Repeat BMP suggests sodium 140 chloride 112 bicarb 18 BUN 20 creatinine 0.64 and LDL is 106. CTA thorax and abdomen was obtained which is suggestive of extensive peripheral vascular occlusive disease or dissection. Hepatomegaly and hepatic steatosis noted with possible subaortic stenosis. Distortion of the proximal left femur and a possible left femoral fracture. On evaluation this morning patient complains of significant pain in the left lower quadrant of the abdomen that increases with change in position in bed. She also complains of left upper abdominal pain which worsens after having a bowel movement. Patient has also noticed some blood with a bowel movement. She does document to prior history of femur fracture for which repair was attempted 20 years ago. Orthopedic consulted for possible femoral fracture. CT abdomen be obtained with oral contrast. X-rays obtained by orthopedics suggests iinguinal hernia and congenital hip dysplasia with severe deformity involving the left iliac bone femoral head and neck. 12/12: Patient evaluated at the bedside today. Continues to have significant pain in the left lower quadrant of the abdomen, hip x-ray showed congenital dysplasia, possible bowel hernia, CT of the abdomen and pelvis was ordered to evaluate further and showed non-specific gas pattern with no evidence of obstruction, thickening of the distal wall of the esophagus, absence of the right kidney, congenital cortical loss involving the left kidney compatible with chronic medical renal disease, nonobstructing 2 mm calculus, congenital hip dysplasia, mild bladder wall thickening, markedly diminutive abdominal aorta with plaque. She was consulted by orthopedics who recommends no surgical intervention at this time, cardiology on consult who recommended she would be an extremely high-risk surgical candidate, will continue with conservative manage ment. Blood pressure has improved today and is 124/61, heart rate 56, afebrile 97.8, history of 20, she's 96% on room air, Lipitor evaluation will WBC 9.0, hemoglobin 16, sodium 140, potassium 4.2, BUN 20, creatinine 0.64, C-reactive protein 0.8. Objective - Vital Signs Vital signs: Vital Signs Temp 97.8 F 12/12/20 11:43 Pulse 56 L 12/12/20 11:43 Resp 20 12/12/20 11:43 BP 124/61 12/12/20 11:43 Pulse Ox 96 12/12/20 11:43 Intake & Output 12/11/20 12/12/20 12/12/20 18:59 06:59 18:59 Intake Total 480 480 Output Total 800 800 Balance -320 -320 Weight 88 kg Intake: Oral 480 480 Output: Urine 800 800 Other: Voiding Method Bedpan Bedpan - Exam - Constitutional General appearance: cooperative, mild acute distress, obese - EENT Eyes: anicteric sclerae, PERRLA, normal appearance ENT: hearing grossly normal - Neck Neck: no lymphadenopathy, normal ROM, no other, no rigidity, no stridor, no thyromegaly - Respiratory Respiratory: bilateral: CTA, negative: diminished, dullness, rales, rhonchi - Cardiovascular Rhythm: regular Heart sounds: normal: S1, S2 Abnormal Heart Sounds: no systolic murmur, no diastolic murmur, no rub, no S3 Gallop, no S4 Gallop, no click - Gastrointestinal General gastrointestinal: normal bowel sounds, soft tender left upper and lower quadrant - Integumentary Integumentary: no rash - Neurologic Neurologic: No motor or sensory deficit bilaterally to above the knee amputation present - Musculoskeletal Musculoskeletal: Wheelchair bound, strength equal bilaterally no tenderness on movement of the joint - Psychiatric Psychiatric: A&O x's 3, appropriate affect - Labs CBC & Chem 7: 12/11/20 07:37 12/11/20 07:37 Labs: Abnormal Lab Results - Last 24 Hours (Table) 12/12/20 Range/Units 06:59 PT 15.8 H (9.0-12.0) sec INR 1.6 H (<1.2) Assessment and Plan Plan: #1 acute atypical chest pain ACS ruled out EKG negative for ST or T-wave changes troponin 2 negative. Cardiology consulted continue daily aspirin 81 mg daily, Lipitor 80 mg daily at bedtime #2 hypertension. Amlodipine does it change to 5 mg twice daily Coreg and added at 6.25 twice daily with Maxzide once a day. Continue clonidine 0.2 mg 3 times a day. #3 left lower quadrant abdominal pain on Bentyl 20 mg daily. Tender on examination. Patient denies any history of constipation does document hematochezia. Surgery consulted. CAT scan abdomen with oral and IV contrast ordered to review. Pelvic x-ray concerning for inguinal hernia ruled out obstruction #4 chronic femoral fracture with congenital hip dysplasia. History of repair 20 years ago. Orthopedic consulted as patient continues to have left hip pain, no surgical intervention recommended #5 peripheral artery disease will follow up as outpatient with primary care physician for vascular surgery consultation #6 bilateral lower extremity amputation secondary to congenital hip dysplasia wheelchair-bound #7 paroxysmal atrial fibrillation on warfarin. Plan to switch to NOAC. Continue Coreg 6.25 twice a day. warfarin initiated at 2 mg #8 coronary artery disease cardiac cath 2018 with 30-40% disease in RCA . LAD and circumflex 50% disease of the OM branch. #9 history of CVA on aspirin and Lipitor #10 history of renal stones status post lithotripsy in 2017 #11 right renal cyst status post right nephrectomy #12 chronic urinary retention stable #13 chronic recurrent UTIs history of ESBL. UTIs improved since the removal of kidney #14 dyslipidemia on Lipitor 80 mg by mouth daily #15 type 2 diabetes controlled #16 chronic back pain on [place] 10 every 6 hours. Follows pain specialist as outpatient #17 anxiety and depression BuSpar 10 mg 3 times a day Xanax 0.5 twice a day #18 CODE STATUS full code #19 DVT prophylaxis with warfarin The above impression and plan of care have been discussed and directed by signing physician. Vanessa Caceres nurse practitioner acting as scribe for signing physician.
--- NOTE | 2020-12-12 15:19 | P.GSCN ---
History of Present Illness Consult date: 12/12/20 History of present illness: CHIEF COMPLAINT: Abdominal pain HISTORY OF PRESENT ILLNESS: This is a 65-year-old female with a known history of atrial fibrillation anticoagulant Coumadin, coronary artery disease, diabetes, right nephrectomy, obese, bilateral above-knee amputation. She also has a surgical history of cholecystectomy hysterectomy and 3 C-sections. Surgical service was consulted in regards to questionable left inguinal hernia noted on x-ray. Patient has been having left lower quadrant abdominal pain, left groin and hip pain. Patient has left hip congenital dysplasia as well as she's had left hip surgery in the past. She is followed by orthopedics. In the recommending pain control and no surgical intervention. There was a pelvic x- ray that showed lucencies over the pubic rami can sometimes be associated with inguinal hernia correlate clinically. A computed tomography scan of the abdomen and pelvis was completed and showed no evidence of hernia. It did reveal evidence of thickening of the distal wall of the esophagus. This could be rel ated to GERD-like symptoms. Patient has had this left groin pain for a while. She reports that she occasionally does have constipation. She denies any nausea or vomiting. Denies any fever chills or sweats. Denies any significant bulge noted in that area. Patient was seen and examined with Dr. valdovinos. PAST MEDICAL HISTORY: See list. PAST SURGICAL HISTORY: See list. MEDICATIONS: See list. ALLERGIES: See list. SOCIAL HISTORY: No illicit drug use. REVIEW OF SYSTEMS: CONSTITUTIONAL: Denies fever or chills. HEENT: Denies blurred vision, vision changes, or eye pain. Denies hemoptysis CARDIOVASCULAR: Denies chest pain or pressure. RESPIRATORY: No shortness of breath. GASTROINTESTINAL: See HPI for pertinent findings HEMATOLOGIC: Denies bleeding disorders. GENITOURINARY: Denies any blood in urine or increased urinary frequency. SKIN: Denies pruitis. Denies rash. PHYSICAL EXAM: VITAL SIGNS: Reviewed GENERAL: Well-developed in no acute distress. HEENT: No sclera icterus. Extraocular movements grossly intact. Moist buccal mucosa. Head is atraumatic, normocephalic. No nasal drainage. ABDOMEN: Soft. Obese. Nondistended. Tenderness with the patient of the left lower quadrant. Patient difficult examine due to her obesity. But no hernias palpable NEUROLOGIC: Alert and oriented. Cranial nerves II through XII grossly intact. LABORATORY DATA: WBC 9.0 hemoglobin 16 platelets 353 INR 1.6 sodium 140 creatinine 0.64 IMAGING: computed tomography scan of the abdomen and pelvis shows nonspecific gas pattern with no evidence of obstruction. There is thickening of the distal wall of the esophagus. Absence of the right kidney stable from prior exam likely congenital cortical loss involving the left kidney compatible with chronic medical renal disease and there is nonobstructing 2 mm lower pole calculus. Markedly diminutive abdominal aorta with plaque. Cannot exclude a significant stenosis continue under ultrasound. Correlate for congenital hip dysplasia mild bladder wall thickening correlate for urinalysis cystitis. pelvic x-ray that showed lucencies over the pubic rami can sometimes be associated with inguinal hernia correlate clinically. ASSESSMENT: 1. Left lower quadrant abdominal pain and groin pain. No evidence of inguinal hernia noted on CAT scan 2. Thickening of the distal wall of the esophagus possibly related to GERD 3. Left hip pain followed by orthopedics 4. Significant cardiac history with vascular disease, coronary artery disease and atrial fibrillation on anticoagulation PLAN: -No surgical intervention planned. No evidence of hernia noted on CAT scan -Continue supportive care -Continue Protonix Thank you for this consultation Physician [employer] Supervisor note has been reviewed by physician. Signing provider agrees with the documented findings, assessment, and plan of care. Past Medical History Past Medical History: Atrial Fibrillation, Coronary Artery Disease (CAD), CVA/TIA, Diabetes Mellitus, GERD/Reflux, Hyperlipidemia, Hypertension Additional Past Medical History / Comment(s): hx urinary retention, Nephrolithiasis, recurrent UTI, double amputation lower extremities, aka. small cyst on kidney, pt states no longer diabetic, right kidney removal. 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 Right kidney removal july 2020 Past Anesthesia/Blood Transfusion Reactions: No Reported Reaction Additional Past Anesthesia/Blood Transfusion Reaction / Comm: Pt received blood in 1978-no reaction reported. Past Psychological History: Anxiety Additional Psychological History / Comment(s): She is independent. She in a bilateral AKA and gets around in a power wheelchair. She has a hospital bed. She no longer drives but takes the bus. Smoking Status: Current every day smoker Past Alcohol Use History: None Reported Additional Past Alcohol Use History / Comment(s): Pt states she started smoking at age 18 yrs and the amount she smokes varies.Smoke a pack in two days Past Drug Use History: None Reported - Past Family History Father Family Medical History: Cancer, Myocardial Infarction ([place]) Additional Family Medical History / Comment(s): Father had lung cancer-went into remission. He of a massive [place] in his 60's Mother Family Medical History: Cancer Additional Family Medical History / Comment(s): Mother of lung cancer at age 54 yrs. Medications and Allergies Home Medications Medication Instructions Recorded Confirmed Type ALPRAZolam [Xanax] 0.5 mg PO BID 01/20/19 12/10/20 History Atorvastatin Calcium [Lipitor] 80 mg PO HS 12/25/19 12/10/20 History Baclofen [Lioresal] 10 mg PO TID 12/25/19 12/10/20 History Melatonin 10 mg PO HS PRN 12/25/19 12/10/20 History Ondansetron Odt [Zofran ODT] 8 mg PO Q8HR PRN 12/25/19 12/10/20 History Valsartan [Diovan] 160 mg PO BID 12/25/19 12/10/20 History busPIRone HCl [Buspar] 10 mg PO TID 12/25/19 12/10/20 History Simethicone [Gas-X] 250 mg PO DAILY PRN 02/24/20 12/10/20 History Aspirin EC [Ecotrin Low Dose] 81 mg PO DAILY 03/20/20 12/10/20 History polyethylene glycoL 3350 [Miralax] 17 gm PO DAILY PRN 03/20/20 12/10/20 History amLODIPine [Norvasc] 5 mg PO DAILY 03/27/20 12/10/20 History Docusate [Colace] 100 mg PO DAILY PRN 08/28/20 12/10/20 History Pantoprazole Sodium [Protonix] 40 mg PO DAILY 08/28/20 12/10/20 History cloNIDine HCL [Catapres] 0.2 mg PO TID 08/28/20 12/10/20 History Dicyclomine [Bentyl] 20 mg PO TID 12/10/20 12/10/20 History HYDROcodone/APAP 10-325MG [[place] 1 tab PO QID 12/10/20 12/10/20 History 10-325] Nitroglycerin Sl Tabs [Nitrostat] 0.4 mg SUBLINGUAL Q5M PRN 12/10/20 12/10/20 History Warfarin [Coumadin] 1 mg PO MOWEFR 12/11/20 12/11/20 History Warfarin [Coumadin] 2 mg PO SUTUTHSA 12/11/20 12/11/20 History Apixaban [Eliquis] 5 mg PO BID #60 tab 12/12/20 Rx Allergies Allergy/AdvReac Type Severity Reaction Status Date / Time sulfamethoxazole Allergy Itching Verified 12/10/20 17:14 [From Septra] trimethoprim [From Septra] Allergy Itching Verified 12/10/20 17:14 levofloxacin [From Levaquin] AdvReac Muscle Pain Verified 12/10/20 17:14 nitrofurantoin AdvReac Unknown Verified 12/10/20 17:14 [From Macrobid] Surgical - Exam Vital Signs Temp Pulse Resp BP Pulse Ox 98.7 F 89 20 174/11 96 12/10/20 12:41 12/10/20 12:41 12/10/20 12:41 12/10/20 12:41 12/10/20 12:41 Results - Labs 12/11/20 07:37 12/11/20 07:37 Abnormal Lab Results - Last 24 Hours (Table) 12/12/20 Range/Units 06:59 PT 15.8 H (9.0-12.0) sec INR 1.6 H (<1.2)
[2020-12-12] MEDS: cloNIDine HCL 0.1 MG TAB PO SCH ×2 (15:52→20:51)
[2020-12-12] MEDS ORDERED: WARFARIN 2 MG TAB PO SCH (18:00)
[2020-12-12] MEDS: HYDROcodone/APAP 10-325MG 1 EACH TAB PO PRN (18:19)
[2020-12-12] MEDS: APIXABAN 5 MG TAB PO SCH (20:51)
[2020-12-12] MEDS: ATORVASTATIN 80 MG TAB PO SCH (20:51)
[2020-12-13] MEDS: MORPHINE SULFATE 4 MG/ML SYRINGE IVP PRN ×3 (03:54→15:32)
[2020-12-13] MEDS: ONDANSETRON 4 MG/2 ML VIAL IVP PRN ×3 (03:59→15:32)
[2020-12-13] MEDS: carvediloL 6.25 MG TAB PO SCH (06:30)
[2020-12-13] MEDS: PANTOPRAZOLE 40 MG TABLET PO SCH (06:30)
[2020-12-13] MEDS: HYDROcodone/APAP 10-325MG 1 EACH TAB PO PRN ×2 (06:34→12:35)
[2020-12-13 09:23] VITALS: TEMP 97.8
[2020-12-13] MEDS: VALSARTAN 160 MG TAB PO SCH (09:53)
[2020-12-13] MEDS: busPIRone HCl 10 MG TAB PO SCH (09:53)
[2020-12-13] MEDS: TRIAMTERENE-HCTZ 37.5-25MG 1 EACH CAP PO SCH (09:53)
[2020-12-13] MEDS: BACLOFEN 10 MG TAB PO SCH (09:53)
[2020-12-13] MEDS: cloNIDine HCL 0.1 MG TAB PO SCH (09:53)
[2020-12-13] MEDS: amLODIPine 5 MG TAB PO SCH (09:53)
[2020-12-13] MEDS: ASPIRIN 81 MG PO SCH (09:53)
[2020-12-13] MEDS: DICYCLOMINE 20 MG TAB PO SCH (09:53)
[2020-12-13] MEDS: ALPRAZolam 0.5 MG TAB PO SCH (09:53)
[2020-12-13] MEDS: APIXABAN 5 MG TAB PO SCH (09:53)
--- NOTE | 2020-12-13 11:27 | P.DS ---
Providers Date of admission: 12/11/20 10:55 Attending physician: Ann Santiago Consults: 12/10/20 16:58 Consult Physician Urgent Consulting Provider: Issac Prescott Consult Reason/Comments: Chest pain, serial troponins Do you want consulting provider notified?: Yes 12/11/20 10:52 Consult Physician Routine Consulting Provider: Lux Bean Consult Reason/Comments: left hip pain, ? chronic femoral neck fracture Do you want consulting provider notified?: Yes 12/11/20 16:12 Consult Physician Routine Consulting Provider: Darien Kuhn Consult Reason/Comments: left abd pain, inguinal hernia on the xrays Do you want consulting provider notified?: Yes Primary care physician: Arvin Aburto MD Hospital Course: 65 years old female patient of mine with past medical history of co ronary artery disease hypertension paroxysmal atrial fibrillation on Coumadin, hyperlipidemia, type 2 diabetes, history of renal stones status post left nephrolithiasis to [place] May 2017, a history of renal cyst status post right kidney removal in July 2020, bilateral above-knee amputation secondary to defect since the age for likely congenital hip dysplasia, history of CVA, chronic urinary retention, chronic back pain sees Dr watters with chronic UTI infection with history of ESBL seen multiple times in the ER with GI complaints come in on 12/10 with substernal chest pain that woke the patient up at 2 in the morning present on the right side of the chest radiating down to the left arm. She was at home when she felt the pain. Since there was no improvement in pain patient decided to come to the ER. Blood pressure was noted to be elevated in the ER and patient was given 1 dose of IV hydralazine. EKG was obtained which showed sinus rhythm with no acute ST or T-wave abnormalities. Chest x-ray was negative for any acute cardiopulmonary process with evidence of COPD. Vitals this morning suggests a temp of 97.5 pulse 60 respiratory rate 18 blood pressure 141/98 oxygen saturation are 96% room air hematocrit of 49.5 platelets 353. INR is therapeutic at 2.3. Repeat BMP suggests sodium 140 chloride 112 bicarb 18 BUN 20 creatinine 0.64 and LDL is 106. CTA thorax and abdomen was obtained which is suggestive of extensive peripheral vascular occlusive disease or dissection. Hepatomegaly and hepatic steatosis noted with possible subaortic stenosis. Distortion of the proximal left femur and a possible left femoral fracture. On evaluation this morning patient complains of significant pain in the left lower quadrant of the abdomen that increases with change in position in bed. She also complains of left upper abdominal pain which worsens after having a bowel movement. Patient has also noticed some blood with a bowel movement. She does document to prior history of femur fracture for which repair was attempted 20 years ago. Orthopedic consulted for possible femoral fracture. CT abdomen be obtained with oral contrast. X-rays obtained by orthopedics suggests iinguinal hernia and congenital hip dysplasia with severe deformity involving the left iliac bone femoral head and neck. 12/12: Patient evaluated at the bedside today. Continues to have significant pain in the left lower quadrant of the abdomen, hip x-ray showed congenital dysplasia, possible bowel hernia, CT of the abdomen and pelvis was ordered to evaluate further and showed non-specific gas pattern with no evidence of obstruction, thickening of the distal wall of the esophagus, absence of the right kidney, congenital cortical loss involving the left kidney compatible with chronic medical renal disease, nonobstructing 2 mm calculus, congenital hip dysplasia, mild bladder wall thickening, markedly diminutive abdominal aorta with plaque. She was consulted by orthopedics who recommends no surgical intervention at this time, cardiology on consult who recommended she would be an extremely high-risk surgical candidate, will continue with conservative management. Blood pressure has improved today and is 124/61, heart rate 56, afebrile 97.8, history of 20, she's 96% on room air, Lipitor evaluation will WBC 9.0, hemoglobin 16, sodium 140, potassium 4.2, BUN 20, creatinine 0.64, C-chandan ctive protein 0.8. 14 patient evaluated at bedside. Continues to have mild discomfort in the left lower quadrant. CT abdomen and pelvis revealed no sign of inguinal hernia noted. Esophageal thickening consistent for GERD. Possible cystitis and bladder. Patient is asymptomatic. Orthopedic has developed the patient and denies any need for surgery. Cardiology has added blood pressure medication including Coreg,, Dyazide, Eliquis. Patient is following with them as outpatient. Reviewed. Vital signs stable. Review of review of systems otherwise negative except for left lower quadrant pain. Discharge diagnoses #1 acute atypical chest pain ACS ruled out #2 hypertension. #3 left lower quadrant abdominal pain on Bentyl 20 mg daily he secondary to constipation #4 chronic femoral fracture with congenital hip dysplasia. History of repair 20 years ago. #5 peripheral artery disease #6 bilateral lower extremity amputation secondary to congenital hip dysplasia #7 paroxysmal atrial fibrillation switche dto [place] #8 coronary artery disease cardiac cath 2019 with 30-40% disease in RCA . LAD and circumflex 50% disease of the OM branch. #9 history of CVA #10 history of renal stones status post lithotripsy in 2017 #11 right renal cyst status post right nephrectomy #12 chronic urinary retention stable #13 chronic recurrent UTIs history of ESBL. #14 dyslipidemia #15 type 2 diabetes controlled #16 chronic back pain on [place] 10 every 6 hours. Follows pain specialist as outpatient #17 anxiety and depression BuSpar 10 mg 3 times a day Xanax 0.5 twice a day Position home with home Patient Condition at Discharge: Good Plan - Discharge Summary Discharge Rx Participant: Yes New Discharge Prescriptions: New Apixaban [Eliquis] 5 mg PO BID #60 tab cloNIDine HCL [Catapres] 0.1 mg PO TID #90 tab carvediloL [Coreg] 6.25 mg PO BID-W/MEALS #60 tab Triamterene-Hctz 37.5-25Mg [Dyazide 37.5-25 Capsule] 1 each PO DAILY #30 cap Continue ALPRAZolam [Xanax] 0.5 mg PO BID Valsartan [Diovan] 160 mg PO BID Ondansetron Odt [Zofran ODT] 8 mg PO Q8HR PRN PRN Reason: Nausea And Vomiting busPIRone HCl [Buspar] 10 mg PO TID Baclofen [Lioresal] 10 mg PO TID Atorvastatin Calcium [Lipitor] 80 mg PO HS Melatonin 10 mg PO HS PRN PRN Reason: sleep Simethicone [Gas-X] 250 mg PO DAILY PRN PRN Reason: gas relief polyethylene glycoL 3350 [Miralax] 17 gm PO DAILY PRN PRN Reason: Constipation Aspirin EC [Ecotrin Low Dose] 81 mg PO DAILY amLODIPine [Norvasc] 5 mg PO DAILY Pantoprazole Sodium [Protonix] 40 mg PO DAILY Docusate [Colace] 100 mg PO DAILY PRN PRN Reason: Constipation Nitroglycerin Sl Tabs [Nitrostat] 0.4 mg SUBLINGUAL Q5M PRN PRN Reason: Chest Pain Dicyclomine [Bentyl] 20 mg PO TID HYDROcodone/APAP 10-325MG [[place] 10-325] 1 tab PO QID Discontinued cloNIDine HCL [Catapres] 0.2 mg PO TID Warfarin [Coumadin] 1 mg PO MOWEFR Warfarin [Coumadin] 2 mg PO SUTUTHSA Discharge Medication List ALPRAZolam [Xanax] 0.5 mg PO BID 01/20/19 [History] Atorvastatin Calcium [Lipitor] 80 mg PO HS 12/25/19 [History] Baclofen [Lioresal] 10 mg PO TID 12/25/19 [History] Melatonin 10 mg PO HS PRN 12/25/19 [History] Ondansetron Odt [Zofran ODT] 8 mg PO Q8HR PRN 12/25/19 [History] Valsartan [Diovan] 160 mg PO BID 12/25/19 [History] busPIRone HCl [Buspar] 10 mg PO TID 12/25/19 [History] Simethicone [Gas-X] 250 mg PO DAILY PRN 02/24/20 [History] Aspirin EC [Ecotrin Low Dose] 81 mg PO DAILY 03/20/20 [History] polyethylene glycoL 3350 [Miralax] 17 gm PO DAILY PRN 03/20/20 [History] amLODIPine [Norvasc] 5 mg PO DAILY 03/27/20 [History] Docusate [Colace] 100 mg PO DAILY PRN 08/28/20 [History] Pantoprazole Sodium [Protonix] 40 mg PO DAILY 08/28/20 [History] Dicyclomine [Bentyl] 20 mg PO TID 12/10/20 [History] HYDROcodone/APAP 10-325MG [[place] 10-325] 1 tab PO QID 12/10/20 [History] Nitroglycerin Sl Tabs [Nitrostat] 0.4 mg SUBLINGUAL Q5M PRN 12/10/20 [History] Apixaban [Eliquis] 5 mg PO BID #60 tab 12/12/20 [Rx] Triamterene-Hctz 37.5-25Mg [Dyazide 37.5-25 Capsule] 1 each PO DAILY #30 cap 12/13/20 [Rx] carvediloL [Coreg] 6.25 mg PO BID-W/MEALS #60 tab 12/13/20 [Rx] cloNIDine HCL [Catapres] 0.1 mg PO TID #90 tab 12/13/20 [Rx] Follow up Appointment(s)/Referral(s): Arvin Aburto MD [Primary Care Provider] - 1-2 days Issac Prescott MD [STAFF PHYSICIAN] - 2 Weeks Patient Instructions/Handouts: Chest Pain (ED) Discharge Disposition: HOME WITH HOME HEALTH SERVICES
[2020-12-13 11:38] VITALS: BP 141/70; PULSE 60; RESP 16
--- NOTE | 2020-12-13 12:26 | P.PN ---
Subjective HISTORY OF PRESENTING ILLNESS This is a pleasant 65-year-old female past medical history significant for in moderate coronary artery disease, hypertension, paroxysmal atrial fibrillation on Coumadin, dyslipidemia, diabetes mellitus, right nephrectomy and bilateral [id number] amputation. She follows in the office with Dr. Prescott. We have been asked to see in consultation for chest pain. She states she woke up last night at 2:00 in the morning with sharp chest pain on the right side of her chest that radiated down the left arm. She was also having significant lower back discomfort which she states is chronic. While at home she also felt her heart racing. This is associated with some mild shortness of breath. On arrival to the emergency department EKG obtained revealed sinus mechanism with no acute ST or T wave abnormalities noted. No arrhythmias have been captured on telemetry tracings. Blood pressure was 174/111 and 172/98. She was given IV hydralazine. Blood pressure this morning 141/78. She continues to have lower back discomfort. Her chest pain has resolved. Breathing is stable. Chest x-ray is negative for acute cardiopulmonary process with evidence of underlying COPD. Laboratory data reviewed, cardiac enzymes negative 3, WBC 9, hemoglobin 16, platelets 353, INR 2.3, sodium 140, potassium 4.2, magnesium 1.6, creatinine 0.64, LDL 106, HDL 36 and total cholesterol 175. Chronic daily cardiac medications include valsartan 160 mg twice a day, clonidine 0.2 mg 3 times a day, amlodipine 5 mg twice a day, aspirin 81 mg daily, atorvastatin 80 mg daily and warfarin. Most recent echocardiogram obt ained in the office May 2020 revealed preserved LV systolic function with ejection fraction 60%, moderate concentric LVH, mildly dilated left atrium, aortic valve is calcified with a mean gradient of 9 mmHg, moderate mitral regurgitation. 12/13/2020 Pt seen and examined sitting up in bed in no acute distress. She denies chest pain or shortness of breath. Blood pressure 141/70 heart rate 68 afebrile maintaining oxygen saturation on room air. PHYSICAL EXAMINATION CONSTITUTIONAL: No apparent distress. HEENT: Head is normocephalic. Pupils are equal, round. Sclerae anicteric. Mucous membranes of the mouth are moist. No JVD. No carotid bruit. CHEST EXAMINATION: Lungs are clear to auscultation. No chest wall tenderness is noted on palpation or with deep breathing. Diminished bilaterally. HEART EXAMINATION: Regular rate and rhythm. S1, S2 heard. Systolic ejection murmur at the left sternal border, no gallops or rub. Distant heart sounds. EXTREMITIES: Bilateral [id number] amputation. ASSESSMENT Chest pain, atypical Lumbar back pain Hypertension, uncontrolled Coronary artery disease Dyslipidemia Paroxysmal atrial fibrillation on long-term anticoagulation Right nephrectomy Bilateral [id number] amputation Diabetes mellitus PLAN Stable for discharge on current medical regimen. Follow-up in the office with Dr. Redmond in 2 weeks. Nurse Practitioner note has been reviewed, I agree with a documented findings and plan of care. Patient was seen and examined. Objective - Vital Signs Vital signs: Vital Signs Temp 97.8 F 12/13/20 09:22 Pulse 62 12/13/20 09:22 Resp 18 12/13/20 09:22 BP 132/61 12/13/20 09:22 Pulse Ox 93 L 12/13/20 09:22 Intake & Output 12/12/20 12/13/20 12/13/20 18:59 06:59 18:59 Intake Total 400 480 420 Output Total 400 300 Balance 400 80 120 Weight 90.5 kg Intake: Oral 400 480 420 Output: Urine 400 300 Other: Voiding Method Bedpan Bedpan # Voids 1 1 # Bowel Movements 1 - Labs CBC & Chem 7: 12/11/20 07:37 12/11/20 07:37
--- NOTE | 2020-12-13 12:33 | P.PN ---
Subjective Progress Note Date: 12/13/20 CHIEF COMPLAINT: Abdominal pain HISTORY OF PRESENT ILLNESS: Surgical services following in regards to a q uestionable hernia noted on x-ray. CAT scan of the abdomen completed and reviewed with Dr. valdovinos. There is no evidence of any hernia contributing to patient's left lower quadrant abdominal/groin pain. Patient denies any nausea or vomiting. She is tolerating regular diet. She is having bowel movements. Afebrile. PHYSICAL EXAM: VITAL SIGNS: Reviewed. GENERAL: Well-developed in no acute distress. HEENT: No sclera icterus. Extraocular movements grossly intact. Moist buccal mucosa. Head is atraumatic, normocephalic. ABDOMEN: Soft. Nondistended. Nontender. NEUROLOGIC: Alert and oriented. Cranial nerves II through XII grossly intact. ASSESSMENT: 1. Left lower quadrant abdominal pain and groin pain. No evidence of inguinal hernia noted on CAT scan 2. Thickening of the distal wall of the esophagus possibly related to GERD 3. Left hip pain followed by orthopedics 4. Significant cardiac history with vascular disease, coronary artery disease and atrial fibrillation on anticoagulation PLAN: -No surgical intervention planned. No evidence of hernia noted on CAT scan -Continue supportive care -Continue Protonix -Patient is stable from surgical standpoint for discharge Physician Brewing Technician note has been reviewed by physician. Signing provider agrees with the documented findings, assessment, and plan of care. Objective - Vital Signs Vital signs: Vital Signs Temp 97.8 F 12/13/20 09:22 Pulse 60 12/13/20 11:37 Resp 16 12/13/20 11:37 BP 141/70 12/13/20 11:37 Pulse Ox 97 12/13/20 11:37 Intake & Output 12/12/20 12/13/20 12/13/20 18:59 06:59 18:59 Intake Total 400 480 420 Output Total 400 300 Balance 400 80 120 Weight 90.5 kg Intake: Oral 400 480 420 Output: Urine 400 300 Other: Voiding Method Bedpan Bedpan # Voids 1 1 # Bowel Movements 1 - Labs CBC & Chem 7: 12/11/20 07:37 12/11/20 07:37
[2020-12-13] MEDS ORDERED: WARFARIN 1 MG TAB PO SCH (18:00)
== END 2020-12-13 16:46 | disposition home health service (06) | DRG 313 ==
LOC: EC 12:23 → 3SCARD 17:27 → OBSVTOIN 12-11 10:55
PROVIDERS: ADMIT Family Medicine; ATTEND Family Medicine
DX: R07.89 Other chest pain (principal); M84.452A Pathological fracture, left femur, initial encounter for fracture; N39.0 Urinary tract infection, site not specified; E11.51 Type 2 diabetes mellitus with diabetic peripheral angiopathy without gangrene; E78.5 Hyperlipidemia, unspecified; F17.210 Nicotine dependence, cigarettes, uncomplicated; F32.9 Major depressive disorder, single episode, unspecified; F41.9 Anxiety disorder, unspecified; G89.29 Other chronic pain; I10 Essential (primary) hypertension; I25.10 Atherosclerotic heart disease of native coronary artery without angina pectoris; I34.0 Nonrheumatic mitral (valve) insufficiency; I48.0 Paroxysmal atrial fibrillation; K21.9 Gastro-esophageal reflux disease without esophagitis; K40.90 Unilateral inguinal hernia, without obstruction or gangrene, not specified as recurrent; K59.00 Constipation, unspecified; K76.0 Fatty (change of) liver, not elsewhere classified; N28.1 Cyst of kidney, acquired; Q65.89 Other specified congenital deformities of hip; Z79.01 Long term (current) use of anticoagulants; Z79.891 Long term (current) use of opiate analgesic; Z79.82 Long term (current) use of aspirin; Z79.899 Other long term (current) drug therapy; Z20.822 Contact with and (suspected) exposure to COVID-19; Z80.1 Family history of malignant neoplasm of trachea, bronchus and lung; Z82.49 Family history of ischemic heart disease and other diseases of the circulatory system; Z87.440 Personal history of urinary (tract) infections; Z86.73 Personal history of transient ischemic attack (TIA), and cerebral infarction without residual deficits; Z87.442 Personal history of urinary calculi; Z89.611 Acquired absence of right leg above knee; Z89.612 Acquired absence of left leg above knee; M54.9 Dorsalgia, unspecified; Z90.49 Acquired absence of other specified parts of digestive tract; Z90.5 Acquired absence of kidney; Z90.710 Acquired absence of both cervix and uterus; Z99.3 Dependence on wheelchair; Z86.19 Personal history of other infectious and parasitic diseases; R33.9 Retention of urine, unspecified; Z88.1 Allergy status to other antibiotic agents; Z88.2 Allergy status to sulfonamides
CPT/HCPCS: 36415; 71046; 71275; 72170; 73502; 74021; 74174; 74177; 80048; 80053; 80061; 83690; 83735; 84484; 85025; 85379; 85610; 85652; 85730; 86140; 87635; 93005; 93975; 94760; 96374; 96375; 96376; 99285

== ENCOUNTER 2021-01-05 18:22 | Observation (INO) | payer OTHER ==
[2021-01-05] MEDS ORDERED: NITROGLYCERIN OINT 1 INCH/GM PACKET TOPICAL STA (18:28)
[2021-01-05] MEDS ORDERED: ACETAMINOPHEN TAB 500 MG TAB PO STA (18:29)
[2021-01-05] MEDS ORDERED: hydrALAZINE HCL 20 MG/ML 1 ML VIAL IVP STA (18:45)
--- NOTE | 2021-01-05 18:52 | ED ---
General Adult HPI - General Chief complaint: Chest Pain Stated complaint: chest pain Time Seen by Provider: 01/05/21 18:30 Source: patient, RN notes reviewed, old records reviewed Mode of arrival: EMS Limitations: no limitations - History of Present Illness Initial comments: This is a 65-year-old female presents emergency Department with a AKA bilateral ly from general defect. Patient comes in today complaining of chest pain started 1 hour prior to arrival and some shortness of breath. Patient denies radiation of the pain. Patient denies nausea. Patient denies any diaphoretic episodes. Patient also complains of a headache secondary to the nitroglycerin she received in route. Patient did receive an aspirin in route as well. Patient denies any abdominal pain. Patient states she does have a abdominal hernia but she doesn't know where. Patient denies any recent fever chills or cough per patient denies any lightheadedness or dizziness or any near syncopal episode. - Related Data Home Medications Medication Instructions Recorded Confirmed ALPRAZolam [Xanax] 0.5 mg PO BID 01/20/19 01/05/21 Atorvastatin Calcium [Lipitor] 80 mg PO HS 12/25/19 01/05/21 Baclofen [Lioresal] 10 mg PO TID 12/25/19 01/05/21 Melatonin 10 mg PO HS PRN 12/25/19 01/05/21 Ondansetron Odt [Zofran ODT] 8 mg PO Q8HR PRN 12/25/19 01/05/21 Valsartan [Diovan] 160 mg PO BID 12/25/19 01/05/21 busPIRone HCl [Buspar] 10 mg PO TID 12/25/19 01/05/21 Simethicone [Gas-X] 250 mg PO DAILY PRN 02/24/20 01/05/21 Aspirin EC [Ecotrin Low Dose] 81 mg PO DAILY 03/20/20 01/05/21 polyethylene glycoL 3350 [Miralax] 17 gm PO DAILY PRN 03/20/20 01/05/21 amLODIPine [Norvasc] 5 mg PO DAILY 03/27/20 01/05/21 Docusate [Colace] 100 mg PO DAILY PRN 08/28/20 01/05/21 Pantoprazole Sodium [Protonix] 40 mg PO DAILY 08/28/20 01/05/21 Dicyclomine [Bentyl] 20 mg PO TID 12/10/20 01/05/21 HYDROcodone/APAP 10-325MG [Glasco 1 tab PO QID 12/10/20 01/05/21 10-325] Nitroglycerin Sl Tabs [Nitrostat] 0.4 mg SUBLINGUAL Q5M PRN 12/10/20 01/05/21 Hydrochlorothiazide 12.5 mg PO DAILY 01/05/21 01/05/21 [hydroCHLOROthiazide] Previous Rx's Medication Instructions Recorded Apixaban [Eliquis] 5 mg PO BID #60 tab 12/12/20 carvediloL [Coreg] 6.25 mg PO BID-W/MEALS #60 tab 12/13/20 cloNIDine HCL [Catapres] 0.1 mg PO TID #90 tab 12/13/20 Allergies Allergy/AdvReac Type Severity Reaction Status Date / Time sulfamethoxazole Allergy Itching Verified 01/05/21 19:25 [From Septra] trimethoprim [From Septra] Allergy Itching Verified 01/05/21 19:25 levofloxacin [From Levaquin] AdvReac Muscle Pain Verified 01/05/21 19:25 nitrofurantoin AdvReac Unknown Verified 01/05/21 19:25 [From Macrobid] Review of Systems ROS Statement: Those systems with pertinent positive or pertinent negative responses have been documented in the HPI. ROS Other: All systems not noted in ROS Statement are negative. Past Medical History Past Medical History: Atrial Fibrillation, Coronary Artery Disease (CAD), CVA/TIA, Diabetes Mellitus, GERD/Reflux, Hyperlipidemia, Hypertension Additional Past Medical History / Comment(s): hx urinary retention, Nephrolithiasis, recurrent UTI, double amputation lower extremities, aka. small cyst on kidney, pt states no longer diabetic, right kidney removal. 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 Right kidney removal july 2020 Past Anesthesia/Blood Transfusion Reactions: No Reported Reaction Additional Past Anesthesia/Blood Transfusion Reaction / Comment(s): Pt received blood in 1978-no reaction reported. Past Psychological History: Anxiety Smoking Status: Current every day smoker Past Alcohol Use History: None Reported Past Drug Use History: None Reported - Past Family History Father Family Medical History: Cancer, Myocardial Infarction (OR) Additional Family Medical History / Comment(s): Father had lung cancer-went into remission. He of a massive OR in his 60's Mother Family Medical History: Cancer Additional Family Medical History / Comment(s): Mother of lung cancer at age 54 yrs. General Exam - General Exam Comments Initial Comments: GENERAL: Patient is well-developed and well-nourished. Patient is nontoxic and well- hydrated and is in mild distress. ENT: Neck is soft and supple. No significant lymphadenopathy is noted. Oropharynx is clear. Moist mucous membranes. Neck has full range of motion without eliciting any pain. EYES: The sclera were anicteric and conjunctiva were pink and moist. Extraocular movements were intact and pupils were equal round and reactive to light. Eyelids were unremarkable. PULMONARY: Unlabored respirations. Good breath sounds bilaterally. No audible rales rhonchi or wheezing was noted. CARDIOVASCULAR: There is a regular rate and rhythm without any murmurs gallops or rubs. ABDOMEN: Soft and nontender with normal bowel sounds. SKIN: Skin is clear with no lesions or rashes and otherwise unremarkable. NEUROLOGIC: Patient is alert and oriented x3. Cranial nerves II through XII are grossly intact. Motor and sensory are also intact. Normal speech, volume and content. Symmetrical smile. MUSCULOSKELETAL: Patient is normal range of motion of her upper extremities and she has bilateral AKA's LYMPHATICS: No significant lymphadenopathy is noted PSYCHIATRIC: Normal psychiatric evaluation. Limitations: no limitations Course Vital Signs 01/05/21 01/05/21 01/05/21 18:33 19:00 19:41 Temperature 98.7 F Pulse Rate 88 91 Pulse Rate [ 74 [employer] ] Respiratory 16 18 18 Rate Blood Pressure 129/69 O2 Sat by Pulse 98 97 Oximetry 01/05/21 20:00 Temperature Pulse Rate 74 Pulse Rate [ [employer] ] Respiratory 18 Rate Blood Pressure 122/79 O2 Sat by Pulse 97 Oximetry Medical Decision Making - Medical Decision Making EKG shows normal sinus rhythm at 87 bpm AL interval is on a 58 QRS is 78 QT interval 368 QTC is 442. Patient's EKG shows no ST segment elevation or depression. Chest x-ray shows no acute abnormality. I spoke with Dr. Spaulding he agreed to admit the patient admitted the patient and I consult cardiology Patient demanded pain meds on multiple occasions but because she continues to say she was having pain and a repeat EKG was essentially normal sinus rhythm at 80 bpm AL interval 254 QRS is 78 QT interval 376 QTC is 454. Patient's EKG shows no ST segment elevation or depression. - Lab Data Result diagrams: 01/05/21 19:23 01/05/21 19:23 Lab Results 01/05/21 01/05/21 01/05/21 Range/Units 19:23 19:23 19:23 WBC 12.0 H (3.8-10.6) k/uL RBC 5.25 (3.80-5.40) m/uL Hgb 15.8 (11.4-16.0) gm/dL Hct 44.7 (34.0-46.0) % MCV 85.1 (80.0-100.0) fL MCH 30.0 (25.0-35.0) pg MCHC 35.3 (31.0-37.0) g/dL RDW 13.9 (11.5-15.5) % Plt Count 320 (150-450) k/uL MPV 7.8 Neutrophils % 68 % Lymphocytes % 26 % Monocytes % 3 % Eosinophils % 1 % Basophils % 1 % Neutrophils # 8.1 H (1.3-7.7) k/uL Lymphocytes # 3.1 (1.0-4.8) k/uL Monocytes # 0.4 (0-1.0) k/uL Eosinophils # 0.1 (0-0.7) k/uL Basophils # 0.1 (0-0.2) k/uL PT 10.5 (9.0-12.0) sec INR 1.0 (<1.2) APTT 26.8 (22.0-30.0) sec Sodium 140 (137-145) mmol/L Potassium 4.6 (3.5-5.1) mmol/L Chloride 112 H (98-107) mmol/L Carbon Dioxide 18 L (22-30) mmol/L Anion Gap 10 mmol/L BUN 37 H (7-17) mg/dL Creatinine 0.71 (0.52-1.04) mg/dL Est GFR (CKD-EPI)AfAm >90 (>60 ml/min/1.73 sqM) Est GFR (CKD-EPI)NonAf >90 (>60 ml/min/1.73 sqM) Glucose 119 H (74-99) mg/dL Calcium 10.0 (8.4-10.2) mg/dL Magnesium 1.5 L (1.6-2.3) mg/dL Total Bilirubin 0.5 (0.2-1.3) mg/dL AST 24 (14-36) U/L ALT 21 (4-34) U/L Alkaline Phosphatase 132 H (38-126) U/L Troponin I (0.000-0.034) ng/mL NT-Pro-B Natriuret Pep pg/mL Total Protein 7.0 (6.3-8.2) g/dL Albumin 4.1 (3.5-5.0) g/dL 01/05/21 01/05/21 Range/Units 19:23 19:23 WBC (3.8-10.6) k/uL RBC (3.80-5.40) m/uL Hgb (11.4-16.0) gm/dL Hct (34.0-46.0) % MCV (80.0-100.0) fL MCH (25.0-35.0) pg MCHC (31.0-37.0) g/dL RDW (11.5-15.5) % Plt Count (150-450) k/uL MPV Neutrophils % % Lymphocytes % % Monocytes % % Eosinophils % % Basophils % % Neutrophils # (1.3-7.7) k/uL Lymphocytes # (1.0-4.8) k/uL Monocytes # (0-1.0) k/uL Eosinophils # (0-0.7) k/uL Basophils # (0-0.2) k/uL PT (9.0-12.0) sec INR (<1.2) APTT (22.0-30.0) sec Sodium (137-145) mmol/L Potassium (3.5-5.1) mmol/L Chloride (98-107) mmol/L Carbon Dioxide (22-30) mmol/L Anion Gap mmol/L BUN (7-17) mg/dL Creatinine (0.52-1.04) mg/dL Est GFR (CKD-EPI)AfAm (>60 ml/min/1.73 sqM) Est GFR (CKD-EPI)NonAf (>60 ml/min/1.73 sqM) Glucose (74-99) mg/dL Calcium (8.4-10.2) mg/dL Magnesium (1.6-2.3) mg/dL Total Bilirubin (0.2-1.3) mg/dL AST (14-36) U/L ALT (4-34) U/L Alkaline Phosphatase (38-126) U/L Troponin I <0.012 (0.000-0.034) ng/mL NT-Pro-B Natriuret Pep 566 pg/mL Total Protein (6.3-8.2) g/dL Albumin (3.5-5.0) g/dL Disposition Clinical Impression: Chest pain Disposition: ADMITTED IP TO THIS [facility] Time of Disposition: 20:46
[2021-01-05] MEDS ORDERED: ONDANSETRON 4 MG/2 ML VIAL IVP STA (18:56)
--- NOTE | 2021-01-05 19:20 | XR ---
EXAMINATION TYPE: XR chest 2V DATE OF EXAM: 01/05/2021 COMPARISON: 12/10/2020 HISTORY: Chest pain TECHNIQUE: 2 views FINDINGS: There is blunting of the costophrenic angles. Heart size is normal. There is no heart failu re. There are chest leads. IMPRESSION: Small pleural effusions without change compared to old exam. No obvious heart failure.
[2021-01-05] MEDS ORDERED: LORazepam 1 MG TAB PO STA (19:31)
[2021-01-05 19:36] LABS: Basophils # (A) 0.1 k/uL (0-0.2); Basophils % (A) 1 %; Eosinophils # (A) 0.1 k/uL (0-0.7); Eosinophils % (A) 1 %; HCT 44.7 % (34.0-46.0); HGB 15.8 gm/dL (11.4-16.0); Lymphocytes # (A) 3.1 k/uL (1.0-4.8); Lymphocytes % (A) 26 %; MCHC 35.3 g/dL (31.0-37.0); MCV 85.1 fL (80.0-100.0); Mean Platelet Volume 7.8; Monocytes # (A) 0.4 k/uL (0-1.0); Monocytes % (A) 3 %; Neutrophils # (A) 8.1 k/uL (1.3-7.7); Neutrophils % (A) 68 %; Platelet Count 320 k/uL (150-450); RBC 5.25 m/uL (3.80-5.40); RDW 13.9 % (11.5-15.5)
[2021-01-05 19:48] LABS: Partial Thromboplastin Time 26.8 sec (22.0-30.0); Prothrombin Time 10.5 sec (9.0-12.0)
[2021-01-05 19:49] LABS: ALT 21 U/L (4-34); AST 24 U/L (14-36); African American GFR (CKD) >90 (>60 ml/min/1.73 sqM); Albumin 4.1 g/dL (3.5-5.0); Alkaline Phosphatase 132 U/L (38-126); Anion Gap 10 mmol/L; Blood Urea Nitrogen 37 mg/dL (7-17); Carbon Dioxide 18 mmol/L (22-30); Chloride 112 mmol/L (98-107); Glucose 119 mg/dL (74-99); Magnesium 1.5 mg/dL (1.6-2.3); Non-African American GFR(CKD) >90 (>60 ml/min/1.73 sqM); Potassium 4.6 mmol/L (3.5-5.1); Sodium 140 mmol/L (137-145); Total Bilirubin 0.5 mg/dL (0.2-1.3)
[2021-01-05] MEDS ORDERED: NITROGLYCERIN SL TABS 0.4 MG TAB SUBLINGUAL PRN (20:47)
[2021-01-05] MEDS ORDERED: ATORVASTATIN 80 MG TAB PO SCH (21:00)
[2021-01-05] MEDS: HYDROcodone/APAP 10-325MG 1 EACH TAB PO SCH (21:16)
[2021-01-05] MEDS: ALPRAZolam 0.5 MG TAB PO SCH (22:40)
[2021-01-05] MEDS: cloNIDine HCL 0.1 MG TAB PO SCH (22:41)
[2021-01-05] MEDS: APIXABAN 5 MG TAB PO SCH (23:04)
[2021-01-06] MEDS ORDERED: NITROGLYCERIN OINT 1 INCH/GM PACKET TOPICAL SCH
[2021-01-06] MEDS: busPIRone HCl 10 MG TAB PO SCH ×2 (00:17→08:37)
[2021-01-06] MEDS: ALPRAZolam 0.5 MG TAB PO SCH ×2 (00:17→08:30)
[2021-01-06] MEDS: HYDROcodone/APAP 10-325MG 1 EACH TAB PO SCH ×2 (03:07→12:05)
[2021-01-06] MEDS ORDERED: MELATONIN 5 MG TABLET PO PRN (05:37)
[2021-01-06] MEDS ORDERED: SIMETHICONE 80 MG CHEWABLE PO PRN (05:37)
[2021-01-06] MEDS ORDERED: polyethylene glycoL 3350 17 GM POWD.PACK PO PRN (05:37)
[2021-01-06] MEDS ORDERED: ONDANSETRON ODT 8 MG TAB.RAPDIS PO PRN (05:37)
[2021-01-06] MEDS ORDERED: DOCUSATE 100 MG CAP PO PRN (05:37)
[2021-01-06] MEDS ORDERED: NITROGLYCERIN SL TABS 0.4 MG TAB SUBLINGUAL PRN (05:37)
[2021-01-06 06:34] VITALS: RESP 18
[2021-01-06] MEDS ORDERED: PANTOPRAZOLE 40 MG TABLET PO SCH (07:30)
[2021-01-06] MEDS ORDERED: carvediloL 6.25 MG TAB PO SCH (07:30)
[2021-01-06 08:21] VITALS: BP 146/90; TEMP 98.2
[2021-01-06] MEDS: APIXABAN 5 MG TAB PO SCH (08:29)
[2021-01-06] MEDS: cloNIDine HCL 0.1 MG TAB PO SCH (08:30)
[2021-01-06] MEDS ORDERED: ASPIRIN 81 MG PO SCH (09:00)
[2021-01-06] MEDS ORDERED: amLODIPine 5 MG TAB PO SCH (09:00)
[2021-01-06] MEDS ORDERED: VALSARTAN 160 MG TAB PO SCH (09:00)
[2021-01-06] MEDS ORDERED: DICYCLOMINE 20 MG TAB PO SCH (09:00)
[2021-01-06] MEDS ORDERED: ASPIRIN 325 MG TAB PO SCH (09:00)
[2021-01-06] MEDS ORDERED: BACLOFEN 10 MG TAB PO SCH (09:00)
[2021-01-06] MEDS ORDERED: hydroCHLOROthiazide 12.5 MG CAP PO SCH (09:00)
--- NOTE | 2021-01-06 09:40 | P.CRDCN ---
History of Present Illness History of present illness: HISTORY OF PRESENTING ILLNESS This is a pleasant 65-year-old female past medical history significant for coronary artery disease, bilateral qybrv-yuc-ikso amputations, hypertension, aortic stenosis, paroxysmal atrial fibrillation on Eliquis, dyslipidemia, diabetes mellitus, chronic nicotine dependence and history of left nephrectomy. She follows in the office with Dr. Prescott. We have been asked to see in consultation for chest pain. She is seen and examined sitting up in the stretcher very tearful and uncomfortable. She is complaining of significant lower abdominal pain and left hip pain. She states [place] was not relieving her pain. Currently her pain level is a 10 out of 10. The pain is described as sharp in nature. She denies chest discomfort, shortness of breath, dizziness or palpitations. She states at times when her blood pressure gets extremely high due to uncontrolled pain she feels a heaviness in her chest. EKG reveals sinus mechanism with left anterior fascicular block. Chest x-ray reveals small pleural effusions, chronic no changes and no evidence of heart failure. Laboratory data reviewed, WBC 12, hemoglobin 15.8, platelets 320, sodium 140, potassium 4.6, creatinine 0.71, magnesium 1.5, cardiac enzymes negative 3, NT proBNP 566. Current daily cardiac medications include hydrochlorothiazide 12.5 mg daily, clonidine 0.1 mg 3 times a day, Coreg 6.25 mg twice a day, amlodipine 5 mg daily, valsartan 160 mg twice a day, atorvastatin 80 mg daily, aspirin 81 mg daily and Eliquis 5 mg twice a day. Most recent echocardiogram obtained May in the office reveals preserved LV systolic function with ejection fraction 55-60%. Most recent cardiac catheterization performed July 2019 revealed diffuse coronary artery disease with 30-40% lesion involving the RCA, circumflex and proximal LAD. No obstructive stenosis noted. REVIEW OF SYSTEMS At the time of my exam: CONSTITUTIONAL: Denies fever or chills. CARDIOVASCULAR: Denies chest pain, shortness of breath, orthopnea, PND or palpitations. RESPIRATORY: Denies cough. GASTROINTESTINAL: Denies abdominal pain, diarrhea, constipation, nausea or vomiting. MUSCULOSKELETAL: Denies myalgias. NEUROLOGIC: Denies numbness, tingling, headacbe or weakness. ENDOCRINE: Denies fatigue, weight change, polydipsia or polyurina. GENITOURINARY: Denies burning, hematuria or urgency with micturation. HEMATOLOGIC: Denies history of anemia or bleeding. PHYSICAL EXAMINATION Blood pressure 146/90 heart rate 77 afebrile and maintaining oxygen saturation on room air. CONSTITUTIONAL: No apparent distress. Tearful. HEENT: Head is normocephalic. Pupils are equal, round. Sclerae anicteric. Mucous membranes of the mouth are moist. No JVD. No carotid bruit. CHEST EXAMINATION: Lungs are clear to auscultation. No chest wall tenderness is noted on palpation or with deep breathing. HEART EXAMINATION: Regular rate and rhythm. S1, S2 heard. Soft systolic ejection murmur at the base, no gallops or rub. ABDOMEN: Soft, pelvic tenderness on exam. Positive bowel sounds. EXTREMITIES: Bilateral AKA. NEUROLOGIC EXAMINATION: Patient is awake, alert and oriented x3. ASSESSMENT Abdominal pain Chest pain, atypical Coronary artery disease Diabetes mellitus Hypertension Dyslipidemia Paroxysmal atrial fibrillation on Eliquis, currently maintaining sinus mechanism Chronic nicotine dependence PLAN An acute coronary event has been ruled out. Chest discomfort is atypical for angina. Undergoing medical evaluation and management of abdominal discomfort. Follow-up in the office with Dr. Prescott in 2 weeks. No further cardiac recommendations at this time. Thank you kindly for this consultation. Nurse Practitioner note has been reviewed, I agree with a documented findings and plan of care. Patient was seen and examined. Past Medical History Past Medical History: Atrial Fibrillation, Coronary Artery Disease (CAD), CVA/TIA, Diabetes Mellitus, GERD/Reflux, Hyperlipidemia, Hypertension Additional Past Medical History / Comment(s): hx urinary retention, Nephrolithiasis, recurrent UTI, double amputation lower extremities, aka. small cyst on kidney, pt states no longer diabetic, right kidney removal. History of Any Multi-Drug Resistant Organisms: ESBL Date of last positivie culture/infection: 12/25/19 ESBL MDRO Source:: Urine Past Surgical History: Section, Cholecystectomy, Heart Catheterization, Hysterectomy, Orthopedic Surgery Additional Past Surgical History / Comment(s): PT HAD BILAT AKA AT AGE 6 DUE TO DEFECT, cervical FUSION, RIGHT ARM HARDWARE, Left nephrostolithotomy-2016, x 3, virginie oophorectomies-d/t cysts, bilateral carpal tunnel release. Right kidney removal july 2020 Past Anesthesia/Blood Transfusion Reactions: No Reported Reaction Additional Past Anesthesia/Blood Transfusion Reaction / Comment(s): Pt received blood in 1978-no reaction reported. Past Psychological History: Anxiety Smoking Status: Current every day smoker Past Alcohol Use History: None Reported Past Drug Use History: None Reported - Past Family History Father Family Medical History: Cancer, Myocardial Infarction ([place]) Additional Family Medical History / Comment(s): Father had lung cancer-went into remission. He of a massive [place] in his 60's Mother Family Medical History: Cancer Additional Family Medical History / Comment(s): Mother of lung cancer at age 54 yrs. Medications and Allergies Home Medications Medication Instructions Recorded Confirmed Type ALPRAZolam [Xanax] 0.5 mg PO BID 01/20/19 01/05/21 History Atorvastatin Calcium [Lipitor] 80 mg PO HS 12/25/19 01/05/21 History Baclofen [Lioresal] 10 mg PO TID 12/25/19 01/05/21 History Melatonin 10 mg PO HS PRN 12/25/19 01/05/21 History Ondansetron Odt [Zofran ODT] 8 mg PO Q8HR PRN 12/25/19 01/05/21 History Valsartan [Diovan] 160 mg PO BID 12/25/19 01/05/21 History busPIRone HCl [Buspar] 10 mg PO TID 12/25/19 01/05/21 History Simethicone [Gas-X] 250 mg PO DAILY PRN 02/24/20 01/05/21 History Aspirin EC [Ecotrin Low Dose] 81 mg PO DAILY 03/20/20 01/05/21 History polyethylene glycoL 3350 [Miralax] 17 gm PO DAILY PRN 03/20/20 01/05/21 History amLODIPine [Norvasc] 5 mg PO DAILY 03/27/20 01/05/21 History Docusate [Colace] 100 mg PO DAILY PRN 08/28/20 01/05/21 History Pantoprazole Sodium [Protonix] 40 mg PO DAILY 08/28/20 01/05/21 History Dicyclomine [Bentyl] 20 mg PO TID 12/10/20 01/05/21 History HYDROcodone/APAP 10-325MG [[place] 1 tab PO QID 12/10/20 01/05/21 History 10-325] Nitroglycerin Sl Tabs [Nitrostat] 0.4 mg SUBLINGUAL Q5M PRN 12/10/20 01/05/21 History Apixaban [Eliquis] 5 mg PO BID #60 tab 12/12/20 01/05/21 Rx carvediloL [Coreg] 6.25 mg PO BID-W/MEALS #60 tab 12/13/20 01/05/21 Rx cloNIDine HCL [Catapres] 0.1 mg PO TID #90 tab 12/13/20 01/05/21 Rx Hydrochlorothiazide 12.5 mg PO DAILY 01/05/21 01/05/21 History [hydroCHLOROthiazide] Allergies Allergy/AdvReac Type Severity Reaction Status Date / Time sulfamethoxazole Allergy Itching Verified 01/05/21 19:25 [From Septra] trimethoprim [From Septra] Allergy Itching Verified 01/05/21 19:25 [facility] Adv[facility] Muscle Pain Verified 01/05/21 19:25 nitrofurantoin AdvReac Unknown Verified 01/05/21 19:25 [From Macrobid] Physical Exam Vitals: Vital Signs Temp Pulse Pulse Resp BP Pulse Ox 01/06/21 06:33 98.6 F 77 18 124/89 98 01/06/21 03:08 97.9 F 77 15 119/74 97 01/05/21 22:41 98.6 F 92 22 138/89 98 01/05/21 20:00 74 18 122/79 97 01/05/21 19:41 91 18 129/69 97 01/05/21 19:00 74 18 01/05/21 18:33 98.7 F 88 16 98 Intake and Output 01/05/21 01/06/21 01/06/21 22:59 06:59 14:59 Other: Weight 73.482 kg Results 01/05/21 19:23 01/05/21 19:23 Cardiac Enzymes 01/05/21 01/05/21 01/05/21 Range/Units 19:23 19:23 22:34 AST 24 (14-36) U/L Troponin I <0.012 <0.012 (0.000-0.034) ng/mL 01/06/21 Range/Units 01:47 AST (14-36) U/L Troponin I <0.012 (0.000-0.034) ng/mL Coagulation 01/05/21 Range/Units 19:23 PT 10.5 (9.0-12.0) sec APTT 26.8 (22.0-30.0) sec CBC 01/05/21 Range/Units 19:23 WBC 12.0 H (3.8-10.6) k/uL RBC 5.25 (3.80-5.40) m/uL Hgb 15.8 (11.4-16.0) gm/dL Hct 44.7 (34.0-46.0) % Plt Count 320 (150-450) k/uL Comprehensive Metabolic Panel 01/05/21 Range/Units 19:23 Sodium 140 (137-145) mmol/L Potassium 4.6 (3.5-5.1) mmol/L Chloride 112 H (98-107) mmol/L Carbon Dioxide 18 L (22-30) mmol/L BUN 37 H (7-17) mg/dL Creatinine 0.71 (0.52-1.04) mg/dL Glucose 119 H (74-99) mg/dL Calcium 10.0 (8.4-10.2) mg/dL AST 24 (14-36) U/L ALT 21 (4-34) U/L Alkaline Phosphatase 132 H (38-126) U/L Total Protein 7.0 (6.3-8.2) g/dL Albumin 4.1 (3.5-5.0) g/dL Current Medications Generic Name Dose Route Start Last Admin Trade Name Freq PRN Reason Stop Dose Admin Hydrocodone Bitart/Acetaminophen 1 each 01/05/21 22:00 01/06/21 03:07 Hydrocodone/Apap 10-325mg 1 Each Tab PO 1 each QID REGINA Administration Alprazolam 0.5 mg 01/05/21 21:00 01/06/21 00:17 Alprazolam 0.5 Mg Tab PO 0.5 mg BID REGINA Administration Amlodipine Besylate 5 mg 01/06/21 09:00 Amlodipine 5 Mg Tab PO DAILY [facility] Apixaban 5 mg 01/05/21 21:00 01/05/21 23:04 Apixaban 5 Mg Tab PO 5 mg BID REGINA Administration Aspirin 325 mg 01/06/21 09:00 Aspirin 325 Mg Tab PO DAILY [facility] Aspirin 81 mg 01/06/21 09:00 Aspirin 81 Mg PO DAILY [facility] Atorvastatin Calcium 80 mg 01/05/21 21:00 01/05/21 23:04 Atorvastatin 80 Mg Tab PO 80 mg HS [facility] Administration Baclofen 10 mg 01/06/21 09:00 Baclofen 10 Mg Tab PO TID [facility] Buspirone HCl 10 mg 01/05/21 22:00 01/06/21 00:17 Buspirone Hcl 10 Mg Tab PO 10 mg TID [facility] Administration Carvedilol 6.25 mg 01/06/21 07:30 Carvedilol 6.25 Mg Tab PO BID-W/MEALS [facility] Clonidine 0.1 mg 01/05/21 22:00 01/05/21 22:41 Clonidine Hcl 0.1 Mg Tab PO Not Given TID [facility] Dicyclomine HCl 20 mg 01/06/21 09:00 Dicyclomine 20 Mg Tab PO TID [facility] Docusate Sodium 100 mg 01/06/21 05:37 Docusate 100 Mg Cap PO DAILY PRN Constipation Hydrochlorothiazide 12.5 mg 01/06/21 09:00 Hydrochlorothiazide 12.5 Mg Cap PO DAILY [facility] Melatonin 10 mg 01/06/21 05:37 Melatonin 5 Mg Tablet PO HS PRN sleep Nitroglycerin 0.4 mg 01/05/21 20:47 Nitroglycerin Sl Tabs 0.4 Mg Tab SUBLINGUAL Q5M PRN Chest Pain Nitroglycerin 1 inch 01/06/21 00:00 01/06/21 03:07 Nitroglycerin Oint 1 Inch/Gm Packet TOPICAL Not Given Q6HR [facility] Ondansetron HCl 8 mg 01/06/21 05:37 Ondansetron Odt 8 Mg Tab.Rapdis PO Q8HR PRN Nausea And Vomiting Pantoprazole Sodium 40 mg 01/06/21 07:30 Pantoprazole 40 Mg Tablet PO DAILY@0730 [facility] Polyethylene Glycol 17 gm 01/06/21 05:37 Polyethylene Glycol 3350 17 Gm Powd.Pack PO DAILY PRN Constipation Simethicone 240 mg 01/06/21 05:37 Simethicone 80 Mg Chewable PO DAILY PRN gas relief Valsartan 160 mg 01/06/21 09:00 Valsartan 160 Mg Tab PO BID [facility] Intake and Output 01/05/21 01/06/21 01/06/21 22:59 06:59 14:59 Other: Weight 73.482 kg 01/05/21 19:23 01/05/21 19:23
[2021-01-06 10:44] VITALS: PULSE 78
[2021-01-06] MEDS ORDERED: KETOROLAC 15 MG/ML 1 ML VIAL IVP STA (10:54)
[2021-01-06] MEDS ORDERED: diazePAM 5 MG TAB PO PRN (10:55)
--- NOTE | 2021-01-06 11:43 | XR ---
EXAMINATION TYPE: XR abdomen 2V DATE OF EXAM: 01/06/2021 COMPARISON: 12/11/2020 HISTORY: Pain TECHNIQUE: One view abdominal series FINDINGS: The osseous structures are intact. The bowel gas pattern is nonspecific. Curvature of the spine with surgical clips in the right upper quadrant. Hip dysplasia suspected on the left. Paraspinal calcific ation on the right is nonspecific. Bibasilar infiltrate and small effusion. IMPRESSION: 1. Nonspecific abdomen. 2. Bibasilar infiltrate and small effusion.
[2021-01-06 11:50] LABS: Appearance,Urine Clear (Clear); Bacteria,Urine Occasional /hpf; Bilirubin,Urine Negative (Negative); Blood,Urine Negative (Negative); Color,Urine Yellow; Glucose,Urine (UA) Negative (Negative); Hyaline Casts,Urine 1 /lpf (0-2); Ketones,Urine Trace (Negative); Leukocyte Esterase,Urine Large (Negative); Mucus,Urine Rare /hpf; Nitrite,Urine Positive (Negative); PH, Urine 5.5 (5.0-8.0); Protein,Urine Negative (Negative); RBC,Urine 2 /hpf (0-5); Squamous Epithelial Cell,Urine <1 /hpf (0-4); Urobilinogen,Urine <2.0 mg/dL (<2.0); WBC,Urine 33 /hpf (0-5)
--- NOTE | 2021-01-06 12:33 | US ---
EXAMINATION TYPE: US kidneys/renal and bladder DATE OF EXAM: 01/06/2021 COMPARISON: CT 12/12/2020 CLINICAL HISTORY: frequent UTIs. EXAM MEASUREMENTS: Right Kidney: Surgically absent Left Kidney: 11.0 x 5.2 x 3.6 cm Right Kidney: Surgically absent Left Kidney: No hydronephrosis or masses seen. Echogenic foci visualized lower pole measuring 0.3 cm Bladder: wnl as visualized Bilateral Jets seen: No IMPRESSION: 1. Nonobstructing 3 mm left renal calculus.
[2021-01-06] MEDS ORDERED: traMADol 50 MG TAB PO SCH (13:00)
--- NOTE | 2021-01-06 14:40 | P.HPIM ---
History of Present Illness H&P Date: 01/06/21 HISTORY AND PHYSICAL AND DISCHARGE SUMMARY: HISTORY OF PRESENT ILLNESS This is a 65-year-old female patient of Dr. Aburto and Dr. Prescott with past medical history of coronary artery disease, hypertension, paroxysmal atrial fibrillation on Coumadin, hyper lipidemia, diabetes mellitus type 2, right nephrectomy and bilateral [id number] amputation, chronic pain syndrome under the care of Dr. Ratliff for pain management. Patient currently had complaints of chest pain initially. At the time of our evaluation, patient is complaining of abdominal pain and concern that she may have a bowel obstruction but she has been having bowel movements. She is concerned about a hernia but cannot tell us where this is located. She also complains of headache. She does state that she is in need of more pain medication. Patient reminded that she is under a pain contract with Dr. Hardy and pain medication cannot be provided by another physician. Patient presented to [facility] emergency center for further evaluation. She was found to be afebrile, heart rate 88, blood pressure 129/69, pulse ox 98% on room air. EKG was a sinus rhythm with no acute ST changes at 87 bpm. Chest x-ray showed no acute cardiopulmonary process. WBC 12.0, hemoglobin 15.8, platelet count 320. Sodium 140, potassium 4.6, chloride 112, CO2 18, BUN 37 creatinine 0.71. Blood sugar 119. Magnesium 1.5. Troponins negative on 3 draws. Urinalysis clear, nitrite positive, leukoesterase large, WBCs 33. Abdominal x-ray showed nonspecific abdomen. Bibasilar infiltrate and small effusion. Renal ultrasound reveals nonobstructing 3 mm left renal calculus. The patient has been seen by cardiology, acute coronary syndrome ruled out with recommendations for follow-up in the office with Dr. Prescott. Patient has been cleared for discharge by cardiology. We will plan to start the patient on oral antibiotics and discharged home and follow up with her primary care physician. REVIEW OF SYSTEMS Constitutional: No fever, no chills, no night sweats. No weight change. No weakness, fatigue or lethargy. No daytime sleepiness. EENT: No headache. No blurred vision or double vision, no loss of vision. No loss of Hearing, no ringing in the ears, no dizziness. No nasal drainage or congestion. No epistaxis. No sore throat. Lungs: No shortness of breath, cough, no sputum production. No wheezing. Cardiovascular: No chest pain, no lower extremity edema. No palpitations. No paroxysmal nocturnal dyspnea. No orthopnea. No lightheadedness or dizziness. No syncopal episodes. Abdominal: No abdominal pain. No nausea, vomiting. No diarrhea. No constipation. No bloody or tarry stools.. No loss of appetite. Genitourinary: No dysuria, increased frequency, urgency. No urinary retention. Musculoskeletal: No myalgias. No muscle weakness, no gait dysfunction, no frequent falls. No back pain. No neck pain. Integumentary: No wounds, no lesions. No rash or pruritus. No unusual bruising. No change in hair or nails. Neurologic: No aphasia. No facial droop. No change in mentation. No head injury. No headache. No paralysis. No paresthesia. Psychiatric: No depression. No anxiety. No mood swings. Endocrine: No abnormal blood sugars. No weight change. No excessive sweating or thirst. No cold intolerance. SOCIAL HISTORY Patient is a smoker one third pack per day since she was 18 years of age. She denies any alcohol use, marijuana use or illicit drug use. She is currently from her . FAMILY HISTORY Mother in her 50s from lung cancer. Father in his 70s from a stroke. Patient has 3 brothers and 3 sisters living with no major medical problems. She has 3 children with no major medical problems.. PHYSICAL EXAMINATION Gen: This is this is a 65-year-old female patient. She is resting in bed and appears to be comfortable and in no acute distress. HEENT: Head is atraumatic, normocephalic. Pupils equal, round. Sclerae is anicteric. NECK: Supple. No JVD. No lymphadenopathy. No thyromegaly. LUNGS: Clear to auscultation. No wheezes or rhonchi. No intercostal retractions. HEART: Regular rate and rhythm. Systolic ejection murmur at the left sternal border. ABDOMEN: Soft. Bowel sounds are present. No masses. No tenderness. EXTREMITIES: Bilateral [id number] amputations. NEUROLOGICAL: Patient is awake, alert and oriented x3. Cranial nerves 2 through 12 are grossly intact. ASSESSMENT AND PLAN 1. Chest pain. Cardiology consult. 2. Acute urinary tract infection. No sign of hydronephrosis. Urine culture in progress. 3. History of coronary artery disease. 4. Hypertension. 5. Paroxysmal atrial fibrillation. 6. Hyperlipidemia. 7. Diabetes mellitus type 2. 8. Right nephrectomy. 9. Bilateral otdwe-off-annk amputations. 10. Chronic pain management under the care of Dr. Ratliff. Patient placed as observation status. DISCHARGE PLAN Home. Discharge Medication List ALPRAZolam [Xanax] 0.5 mg PO BID 01/20/19 [History] Atorvastatin Calcium [Lipitor] 80 mg PO HS 12/25/19 [History] Baclofen [Lioresal] 10 mg PO TID 12/25/19 [History] Melatonin 10 mg PO HS PRN 12/25/19 [History] Ondansetron Odt [Zofran ODT] 8 mg PO Q8HR PRN 12/25/19 [History] Valsartan [Diovan] 160 mg PO BID 12/25/19 [History] busPIRone HCl [Buspar] 10 mg PO TID 12/25/19 [History] Simethicone [Gas-X] 250 mg PO DAILY PRN 02/24/20 [History] Aspirin EC [Ecotrin Low Dose] 81 mg PO DAILY 03/20/20 [History] polyethylene glycoL 3350 [Miralax] 17 gm PO DAILY PRN 03/20/20 [History] amLODIPine [Norvasc] 5 mg PO DAILY 03/27/20 [History] Docusate [Colace] 100 mg PO DAILY PRN 08/28/20 [History] Pantoprazole Sodium [Protonix] 40 mg PO DAILY 08/28/20 [History] Dicyclomine [Bentyl] 20 mg PO TID 12/10/20 [History] HYDROcodone/APAP 10-325MG [[place] 10-325] 1 tab PO QID 12/10/20 [History] Nitroglycerin Sl Tabs [Nitrostat] 0.4 mg SUBLINGUAL Q5M PRN 12/10/20 [History] Apixaban [Eliquis] 5 mg PO BID #60 tab 12/12/20 [Rx] carvediloL [Coreg] 6.25 mg PO BID-W/MEALS #60 tab 12/13/20 [Rx] cloNIDine HCL [Catapres] 0.1 mg PO TID #90 tab 12/13/20 [Rx] Hydrochlorothiazide [hydroCHLOROthiazide] 12.5 mg PO DAILY 01/05/21 [History] Cefuroxime Axetil [Ceftin] 500 mg PO BID 5 Days #10 tab 01/06/21 [Rx] Impression and plan of care have been directed as dictated by the signing physician. Sherie Olivares nurse practitioner acting as scribe for signing physician. Past Medical History Past Medical History: Atrial Fibrillation, Coronary Artery Disease (CAD), CVA/TIA, Diabetes Mellitus, GERD/Reflux, Hyperlipidemia, Hypertension Additional Past Medical History / Comment(s): hx urinary retention, Nephrolithiasis, recurrent UTI, double amputation lower extremities, aka. small cyst on kidney, pt states no longer diabetic, right kidney removal. 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 Right kidney removal july 2020 Past Anesthesia/Blood Transfusion Reactions: No Reported Reaction Additional Past Anesthesia/Blood Transfusion Reaction / Comment(s): Pt received blood in 1978-no reaction reported. Past Psychological History: Anxiety Smoking Status: Current every day smoker Past Alcohol Use History: None Reported Past Drug Use History: None Reported - Past Family History Father Family Medical History: Cancer, Myocardial Infarction ([place]) Additional Family Medical History / Comment(s): Father had lung cancer-went into remission. He of a massive [place] in his 60's Mother Family Medical History: Cancer Additional Family Medical History / Comment(s): Mother of lung cancer at age 54 yrs. Medications and Allergies Home Medications Medication Instructions Recorded Confirmed Type ALPRAZolam [Xanax] 0.5 mg PO BID 01/20/19 01/05/21 History Atorvastatin Calcium [Lipitor] 80 mg PO HS 12/25/19 01/05/21 History Baclofen [Lioresal] 10 mg PO TID 12/25/19 01/05/21 History Melatonin 10 mg PO HS PRN 12/25/19 01/05/21 History Ondansetron Odt [Zofran ODT] 8 mg PO Q8HR PRN 12/25/19 01/05/21 History Valsartan [Diovan] 160 mg PO BID 12/25/19 01/05/21 History busPIRone HCl [Buspar] 10 mg PO TID 12/25/19 01/05/21 History Simethicone [Gas-X] 250 mg PO DAILY PRN 02/24/20 01/05/21 History Aspirin EC [Ecotrin Low Dose] 81 mg PO DAILY 03/20/20 01/05/21 History polyethylene glycoL 3350 [Miralax] 17 gm PO DAILY PRN 03/20/20 01/05/21 History amLODIPine [Norvasc] 5 mg PO DAILY 03/27/20 01/05/21 History Docusate [Colace] 100 mg PO DAILY PRN 08/28/20 01/05/21 History Pantoprazole Sodium [Protonix] 40 mg PO DAILY 08/28/20 01/05/21 History Dicyclomine [Bentyl] 20 mg PO TID 12/10/20 01/05/21 History HYDROcodone/APAP 10-325MG [[place] 1 tab PO QID 12/10/20 01/05/21 History 10-325] Nitroglycerin Sl Tabs [Nitrostat] 0.4 mg SUBLINGUAL Q5M PRN 12/10/20 01/05/21 History Apixaban [Eliquis] 5 mg PO BID #60 tab 12/12/20 01/05/21 Rx carvediloL [Coreg] 6.25 mg PO BID-W/MEALS #60 tab 12/13/20 01/05/21 Rx cloNIDine HCL [Catapres] 0.1 mg PO TID #90 tab 12/13/20 01/05/21 Rx Hydrochlorothiazide 12.5 mg PO DAILY 01/05/21 01/05/21 History [hydroCHLOROthiazide] Allergies Allergy/AdvReac Type Severity Reaction Status Date / Time sulfamethoxazole Allergy Itching Verified 01/05/21 19:25 [From ] trimethoprim [From ] Allergy Itching Verified 01/05/21 19:25 levofloxacin [From Levaquin] AdvReac Muscle Pain Verified 01/05/21 19:25 nitrofurantoin AdvReac Unknown Verified 01/05/21 19:25 [From Macrobid] Physical Exam Vitals: Vital Signs Temp Pulse Pulse Resp BP Pulse Ox 01/06/21 06:33 98.6 F 77 18 124/89 98 01/06/21 03:08 97.9 F 77 15 119/74 97 01/05/21 22:41 98.6 F 92 22 138/89 98 01/05/21 20:00 74 18 122/79 97 01/05/21 19:41 91 18 129/69 97 01/05/21 19:00 74 18 01/05/21 18:33 98.7 F 88 16 98 Intake and Output 01/05/21 01/06/21 01/06/21 22:59 06:59 14:59 Other: Weight 73.482 kg Results CBC & Chem 7: 01/05/21 19:23 01/05/21 19:23 Labs: Abnormal Lab Results - Last 24 Hours (Table) 01/05/21 01/05/21 Range/Units 19:23 19:23 WBC 12.0 H (3.8-10.6) k/uL Neutrophils # 8.1 H (1.3-7.7) k/uL Chloride 112 H (98-107) mmol/L Carbon Dioxide 18 L (22-30) mmol/L BUN 37 H (7-17) mg/dL Glucose 119 H (74-99) mg/dL Magnesium 1.5 L (1.6-2.3) mg/dL Alkaline Phosphatase 132 H (38-126) U/L
[2021-01-06 19:03] LABS: Chol/HDL Ratio 6.76; LDL Cholesterol,Calculated 98.6 mg/dL (0.0-131.0); VLDL Calculation 45.4 mg/dL (5.00-40.00)
== END 2021-01-06 12:13 | disposition home or self-care (01) ==
LOC: EC 18:22 → 1SOBS 20:48
PROVIDERS: ADMIT Internal Medicine Geriatric Medicine; ATTEND Internal Medicine Geriatric Medicine
DX: R07.89 Other chest pain (principal); N39.0 Urinary tract infection, site not specified; I25.10 Atherosclerotic heart disease of native coronary artery without angina pectoris; I10 Essential (primary) hypertension; I48.0 Paroxysmal atrial fibrillation; E78.5 Hyperlipidemia, unspecified; E11.9 Type 2 diabetes mellitus without complications; Z90.5 Acquired absence of kidney; Z89.612 Acquired absence of left leg above knee; Z89.611 Acquired absence of right leg above knee; G89.4 Chronic pain syndrome; G44.40 Drug-induced headache, not elsewhere classified, not intractable; T46.3X5A Adverse effect of coronary vasodilators, initial encounter; K46.9 Unspecified abdominal hernia without obstruction or gangrene; K21.9 Gastro-esophageal reflux disease without esophagitis; R06.02 Shortness of breath; F41.9 Anxiety disorder, unspecified; I35.0 Nonrheumatic aortic (valve) stenosis; M25.552 Pain in left hip; N20.0 Calculus of kidney; F17.210 Nicotine dependence, cigarettes, uncomplicated; Z20.822 Contact with and (suspected) exposure to COVID-19; Z90.49 Acquired absence of other specified parts of digestive tract; Z86.73 Personal history of transient ischemic attack (TIA), and cerebral infarction without residual deficits; Z87.440 Personal history of urinary (tract) infections; Z87.442 Personal history of urinary calculi; Z79.899 Other long term (current) drug therapy; Z79.82 Long term (current) use of aspirin; Z79.891 Long term (current) use of opiate analgesic; Z79.01 Long term (current) use of anticoagulants; Z88.2 Allergy status to sulfonamides; Z88.1 Allergy status to other antibiotic agents; Z16.24 Resistance to multiple antibiotics; Z98.1 Arthrodesis status; Z90.710 Acquired absence of both cervix and uterus; Z82.3 Family history of stroke; Z82.49 Family history of ischemic heart disease and other diseases of the circulatory system; Z80.1 Family history of malignant neoplasm of trachea, bronchus and lung
CPT/HCPCS: 96374; 96375; 99285; 36415; 93005 ×2; 83880; 80061; 80053; 83735; 84484 ×2; 85025; 85610; 85730; 81001; 87086; 87635; 71046; 74019; 76770; G0378 ×2; J0360; J2405; 87077; 87186

== ENCOUNTER 2021-04-08 11:35 | Inpatient (IN) | payer OTHER ==
[2021-04-08] MEDS ORDERED: SODIUM CHLORIDE 0.9% 1,000 ML IV STA (11:55)
[2021-04-08] MEDS ORDERED: HYDROmorphone 0.5 MG/0.5 ML SYRINGE IVP STA (11:56)
[2021-04-08 12:47] LABS: Basophils # (A) 0.1 k/uL (0-0.2); Basophils % (A) 1 %; Eosinophils # (A) 0.1 k/uL (0-0.7); Eosinophils % (A) 1 %; HCT 53.9 % (34.0-46.0); HGB 18.7 gm/dL (11.4-16.0); Lymphocytes # (A) 4.4 k/uL (1.0-4.8); Lymphocytes % (A) 31 %; MCH 31.4 pg (25.0-35.0); MCHC 34.8 g/dL (31.0-37.0); MCV 90.2 fL (80.0-100.0); Mean Platelet Volume 7.9; Monocytes # (A) 0.9 k/uL (0-1.0); Monocytes % (A) 6 %; Neutrophils # (A) 8.5 k/uL (1.3-7.7); Neutrophils % (A) 59 %; Platelet Count 415 k/uL (150-450); RBC 5.97 m/uL (3.80-5.40); RDW 12.8 % (11.5-15.5); WBC 14.4 k/uL (3.8-10.6)
[2021-04-08 12:57] LABS: Calcium 9.4 mg/dL (8.4-10.2)
[2021-04-08] MEDS ORDERED: METOCLOPRAMIDE 5 MG/ML 2 ML VIAL IVP STA (13:02)
[2021-04-08] MEDS ORDERED: diphenhydrAMINE 50 MG/ML 1 ML VIAL IVP STA (13:02)
[2021-04-08 13:04] LABS: Albumin 3.9 g/dL (3.5-5.0); Potassium 4.3 mmol/L (3.5-5.1); Total Protein 7.1 g/dL (6.3-8.2)
[2021-04-08 13:45] LABS: Appearance,Urine Cloudy (Clear); Bacteria,Urine Few /hpf; Bilirubin,Urine Negative (Negative); Blood,Urine Negative (Negative); Color,Urine Yellow; Glucose,Urine (UA) Negative (Negative); Hyaline Casts,Urine 21 /lpf (0-2); Ketones,Urine Negative (Negative); Leukocyte Esterase,Urine Large (Negative); Mucus,Urine Occasional /hpf; Nitrite,Urine Positive (Negative); PH, Urine 5.5 (5.0-8.0); Protein,Urine Trace (Negative); RBC,Urine 4 /hpf (0-5); Specific Gravity,Urine 1.025 (1.001-1.035); Urobilinogen,Urine <2.0 mg/dL (<2.0); WBC,Urine 86 /hpf (0-5)
--- NOTE | 2021-04-08 13:49 | CT ---
EXAMINATION TYPE: CT abdomen pelvis wo con DATE OF EXAM: 04/08/2021 HISTORY: Generalized abdominal pain CT DLP: 934.1 mGycm. Automated Exposure Control for Dose Reduction was Utilized. TECHNIQUE: CT scan of the abdomen and pelvis is performed without oral or IV contrast. COMPARISON: CT abdomen and pelvis December 12, 2020 FINDINGS: Within the limitations of a non-contrast study, the following observations are made. LUNG BASES: Mild cardiomegaly redemonstrated. Persistent calcification at level of mitral valve. Ellen nary artery calcification in the RCA distribution. LIVER/GB: Cholecystectomy clips are redemonstrated. Prominent right hepatic lobe posteriorly redemons trated. PANCREAS: No significant abnormality is seen. SPLEEN: No significant abnormality is seen. ADRENALS: No significant abnormality is seen. KIDNEYS: Right kidney redemonstrated surgically absent. Cortical volume loss lower pole left kidney a gain seen. Poorly distended bladder redemonstrated. Possible nonobstructing 4 mm lower pole left temi l calculus: Image 54. No new left-sided hydronephrosis. BOWEL: Stomach poorly distended and thus suboptimally evaluated. No suspicious small or large bowel d ilatation. GENITAL ORGANS: Uterus surgically absent or atrophic in appearance. Left-sided pelvic phleboliths red emonstrated LYMPH NODES: No greater than 1cm abdominal or pelvic lymph nodes are appreciated. OSSEOUS STRUCTURES: Dextroconvex scoliosis centered near thoracolumbar junction. Chronic deformity le ft hip redemonstrated OTHER: [id number] L5 plaque of the aorta extends into branch vessels . IMPRESSION: No new acute finding identified.
--- NOTE | 2021-04-08 13:53 | ED ---
General Adult HPI - General Chief complaint: Abdominal Pain Stated complaint: Chest Pain,diarrhea Time Seen by Provider: 04/08/21 11:47 Source: patient, EMS Mode of arrival: EMS Limitations: no limitations - History of Present Illness Initial comments: 65-year-old female with a past medical history of atrial fibrillation, CAD, CVA, diabetes mellitus, GERD, hyperlipidemia, hypertension presents to the emergency room for a chief complaint of abdominal pain and diarrhea. Patient states she has had abdominal pain for the past several days. States it is in the left lower area. Patient states she also has diarrhea. Denies blood in diarrhea. Patient states she has also had nausea and hasnt been able to drink much secondary to nausea. states she didn't urinate for 9 hours yesterday because of this dehydration. denies fevers or chills. Patient has no other complaints at this time including shortness of breath, chest pain, vomiting, headache, or visual changes. - Related Data Home Medications Medication Instructions Recorded Confirmed ALPRAZolam [Xanax] 0.5 mg PO BID 01/20/19 01/05/21 Atorvastatin Calcium [Lipitor] 80 mg PO HS 12/25/19 01/05/21 Baclofen [Lioresal] 10 mg PO TID 12/25/19 01/05/21 Melatonin 10 mg PO HS PRN 12/25/19 01/05/21 Ondansetron Odt [Zofran ODT] 8 mg PO Q8HR PRN 12/25/19 01/05/21 Valsartan [Diovan] 160 mg PO BID 12/25/19 01/05/21 busPIRone HCl [Buspar] 10 mg PO TID 12/25/19 01/05/21 Simethicone [Gas-X] 250 mg PO DAILY PRN 02/24/20 01/05/21 Aspirin EC [Ecotrin Low Dose] 81 mg PO DAILY 03/20/20 01/05/21 polyethylene glycoL 3350 [Miralax] 17 gm PO DAILY PRN 03/20/20 01/05/21 amLODIPine [Norvasc] 5 mg PO DAILY 03/27/20 01/05/21 Docusate [Colace] 100 mg PO DAILY PRN 08/28/20 01/05/21 Pantoprazole Sodium [Protonix] 40 mg PO DAILY 08/28/20 01/05/21 Dicyclomine [Bentyl] 20 mg PO TID 12/10/20 01/05/21 HYDROcodone/APAP 10-325MG [Sylvia 1 tab PO QID 12/10/20 01/05/21 10-325] Nitroglycerin Sl Tabs [Nitrostat] 0.4 mg SUBLINGUAL Q5M PRN 12/10/20 01/05/21 Hydrochlorothiazide 12.5 mg PO DAILY 01/05/21 01/05/21 [hydroCHLOROthiazide] Previous Rx's Medication Instructions Recorded Apixaban [Eliquis] 5 mg PO BID #60 tab 12/12/20 carvediloL [Coreg] 6.25 mg PO BID-W/MEALS #60 tab 12/13/20 cloNIDine HCL [Catapres] 0.1 mg PO TID #90 tab 12/13/20 Cefuroxime Axetil [Ceftin] 500 mg PO BID 5 Days #10 tab 01/06/21 Allergies Allergy/AdvReac Type Severity Reaction Status Date / Time sulfamethoxazole Allergy Itching Verified 01/05/21 19:25 [From Septra] trimethoprim [From Septra] Allergy Itching Verified 01/05/21 19:25 levofloxacin [From Levaquin] AdvReac Muscle Pain Verified 01/05/21 19:25 nitrofurantoin AdvReac Unknown Verified 01/05/21 19:25 [From Macrobid] Review of Systems ROS Statement: Those systems with pertinent positive or pertinent negative responses have been documented in the HPI. ROS Other: All systems not noted in ROS Statement are negative. Past Medical History Past Medical History: Atrial Fibrillation, Coronary Artery Disease (CAD), CVA/TIA, Diabetes Mellitus, GERD/Reflux, Hyperlipidemia, Hypertension Additional Past Medical History / Comment(s): hx urinary retention, Nephrolithiasis, recurrent UTI, double amputation lower extremities, aka. small cyst on kidney, pt states no longer diabetic, right kidney removal. 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 Right kidney removal july 2020 Past Anesthesia/Blood Transfusion Reactions: No Reported Reaction Additional Past Anesthesia/Blood Transfusion Reaction / Comment(s): Pt received blood in 1978-no reaction reported. Past Psychological History: Anxiety Smoking Status: Current every day smoker Past Alcohol Use History: None Reported Past Drug Use History: None Reported - Past Family History Father Family Medical History: Cancer, Myocardial Infarction (AR) Additional Family Medical History / Comment(s): Father had lung cancer-went into remission. He of a massive AR in his 60's Mother Family Medical History: Cancer Additional Family Medical History / Comment(s): Mother of lung cancer at age 54 yrs. General Exam Limitations: no limitations General appearance: alert, in no apparent distress Head exam: Present: atraumatic Eye exam: Present: normal appearance, PERRL, EOMI. Absent: conjunctival injection ENT exam: Present: normal exam, mucous membranes moist Neck exam: Present: normal inspection, full ROM. Absent: tenderness Respiratory exam: Present: normal lung sounds bilaterally. Absent: respiratory distress, wheezes Cardiovascular Exam: Present: regular rate, normal rhythm, normal heart sounds GI/Abdominal exam: Present: soft, tenderness (Left sided lower abdominal tenderness), normal bowel sounds. Absent: distended Neurological exam: Present: alert Course Vital Signs 04/08/21 04/08/21 11:40 12:43 Temperature 98.6 F Pulse Rate 70 Respiratory 18 18 Rate Blood Pressure 124/44 O2 Sat by Pulse 96 Oximetry Medical Decision Making - Medical Decision Making Vitals are stable. CBC does show some mild leukocytosis. There is also an elevated hemoglobin which is likely secondary to hemoconcentration. There is evidence of dehydration with a BUN to creatinine ratio of 40. She was given a liter of fluid. Lipase is elevated at 503 however this appears to be chronic in nature. Urinalysis does show evidence of infection with positive nitrite urine few bacteria and [address] abdomen and pelvis shows no new acute findings identified. Urine culture did show E. coli in December, sensitive to all antibiotics reported. She will be started on Rocephin. Given degree of dehydration with diarrhea patient will be admitted for fluids. I did discuss this case with Dr. Santiago, request stool culture and C. diff. - Lab Data Result diagrams: 04/08/21 12:32 04/08/21 12:32 Lab Results 04/08/21 04/08/21 04/08/21 Range/Units 12:32 12:32 13:14 WBC 14.4 H (3.8-10.6) k/uL RBC 5.97 H (3.80-5.40) m/uL Hgb 18.7 H (11.4-16.0) gm/dL Hct 53.9 H (34.0-46.0) % MCV 90.2 (80.0-100.0) fL MCH 31.4 (25.0-35.0) pg MCHC 34.8 (31.0-37.0) g/dL RDW 12.8 (11.5-15.5) % Plt Count 415 (150-450) k/uL MPV 7.9 Neutrophils % 59 % Lymphocytes % 31 % Monocytes % 6 % Eosinophils % 1 % Basophils % 1 % Neutrophils # 8.5 H (1.3-7.7) k/uL Lymphocytes # 4.4 (1.0-4.8) k/uL Monocytes # 0.9 (0-1.0) k/uL Eosinophils # 0.1 (0-0.7) k/uL Basophils # 0.1 (0-0.2) k/uL Sodium 137 (137-145) mmol/L Potassium 4.3 (3.5-5.1) mmol/L Chloride 110 H (98-107) mmol/L Carbon Dioxide 13 L (22-30) mmol/L Anion Gap 14 mmol/L BUN 34 H (7-17) mg/dL Creatinine 0.83 (0.52-1.04) mg/dL Est GFR (CKD-EPI)AfAm 87 (>60 ml/min/1.73 sqM) Est GFR (CKD-EPI)NonAf 76 (>60 ml/min/1.73 sqM) Glucose 120 H (74-99) mg/dL Calcium 9.4 (8.4-10.2) mg/dL Total Bilirubin 1.0 (0.2-1.3) mg/dL AST 35 (14-36) U/L ALT 28 (4-34) U/L Alkaline Phosphatase 95 (38-126) U/L Total Protein 7.1 (6.3-8.2) g/dL Albumin 3.9 (3.5-5.0) g/dL Amylase 99 (30-110) U/L Lipase 503 H (23-300) U/L Urine Color Yellow Urine Appearance Cloudy H (Clear) Urine pH 5.5 (5.0-8.0) Ur Specific [place] 1.025 (1.001-1.035) Urine Protein Trace H (Negative) Urine Glucose (UA) Negative (Negative) Urine Ketones Negative (Negative) Urine Blood Negative (Negative) Urine Nitrite Positive H (Negative) Urine Bilirubin Negative (Negative) Urine Urobilinogen <2.0 (<2.0) mg/dL Ur Leukocyte Esterase Large H (Negative) Urine RBC 4 (0-5) /hpf Urine WBC 86 H (0-5) /hpf Urine WBC Clumps Moderate H (None) /hpf Urine Bacteria Few H (None) /hpf Hyaline Casts 21 H (0-2) /lpf Urine Mucus Occasional H (None) /hpf Disposition Clinical Impression: Abdominal pain, Diarrhea, Dehydration Disposition: ADMITTED IP TO THIS HOSP Is patient prescribed a controlled substance at d/c from ED?: No Referrals: Arvin Aburto MD [Primary Care Provider] - 1-2 days Time of Disposition: 14:28
[2021-04-08] MEDS ORDERED: ONDANSETRON 4 MG/2 ML VIAL IVP PRN (14:40)
[2021-04-08] MEDS ORDERED: NALOXONE 0.4 MG/ML 1 ML VIAL IV PRN (14:40)
[2021-04-08] MEDS: SODIUM CHLORIDE 0.9% 1,000 ML IV SCH (15:07)
[2021-04-08] MEDS: MORPHINE SULFATE 4 MG/ML SYRINGE IVP STA ×2 (15:08→15:18)
[2021-04-08] MEDS: cefTRIAXone IN SWFI 1,000 MG/10 ML SYRINGE IVP STA ×2 (15:08→15:37)
[2021-04-08] MEDS ORDERED: SODIUM CHLORIDE 0.9% 1,000 ML IV ONE (15:17)
[2021-04-08] MEDS: HYDROmorphone 0.5 MG/0.5 ML SYRINGE IVP PRN ×2 (17:20→21:50)
[2021-04-09] MEDS ORDERED: DOCUSATE 100 MG CAP PO PRN (03:16)
[2021-04-09] MEDS ORDERED: ONDANSETRON ODT 8 MG TAB.RAPDIS PO PRN (03:16)
[2021-04-09] MEDS ORDERED: NITROGLYCERIN SL TABS 0.4 MG TAB SUBLINGUAL PRN (03:16)
[2021-04-09] MEDS ORDERED: polyethylene glycoL 3350 17 GM POWD.PACK PO PRN (03:16)
[2021-04-09] MEDS ORDERED: MELATONIN 5 MG TABLET PO PRN (03:16)
[2021-04-09] MEDS ORDERED: SIMETHICONE 80 MG CHEWABLE PO PRN (03:16)
[2021-04-09] MEDS: HYDROmorphone 0.5 MG/0.5 ML SYRINGE IVP PRN ×6 (03:39→21:05)
[2021-04-09] MEDS: BACLOFEN 10 MG TAB PO SCH ×4 (03:47→21:04)
[2021-04-09] MEDS: SODIUM CHLORIDE 0.9% 1,000 ML IV SCH ×2 (03:48→17:53)
[2021-04-09] MEDS: cloNIDine HCL 0.1 MG TAB PO SCH ×4 (04:14→21:04)
[2021-04-09] MEDS: busPIRone HCl 10 MG TAB PO SCH ×4 (04:14→21:04)
[2021-04-09] MEDS: DICYCLOMINE 20 MG TAB PO SCH ×4 (04:14→21:04)
[2021-04-09] MEDS: HYDROcodone/APAP 10-325MG 1 EACH TAB PO SCH ×5 (04:53→21:06)
[2021-04-09] MEDS: ASPIRIN 81 MG PO SCH (08:48)
[2021-04-09] MEDS: VALSARTAN 160 MG TAB PO SCH ×2 (08:48→21:03)
[2021-04-09] MEDS: APIXABAN 5 MG TAB PO SCH ×2 (08:49→21:03)
[2021-04-09] MEDS: amLODIPine 5 MG TAB PO SCH (08:49)
[2021-04-09] MEDS: carvediloL 6.25 MG TAB PO SCH ×2 (08:49→17:58)
[2021-04-09] MEDS: ALPRAZolam 0.5 MG TAB PO SCH ×2 (08:49→21:04)
[2021-04-09] MEDS: PANTOPRAZOLE 40 MG TABLET PO SCH (08:49)
[2021-04-09] MEDS: MELOXICAM 7.5 MG TAB PO SCH (08:50)
[2021-04-09] MEDS ORDERED: cefTRIAXone IN SWFI 1,000 MG/10 ML SYRINGE IVP SCH (09:00)
[2021-04-09] MEDS ORDERED: hydroCHLOROthiazide 12.5 MG CAP PO SCH (09:00)
[2021-04-09] MEDS: ONDANSETRON 4 MG/2 ML VIAL IVP PRN (09:37)
[2021-04-09] MEDS: metroNIDAZOLE-NS PMX 500 MG in SALINE 1 100ML.BAG IVPB SCH ×2 (09:37→15:31)
[2021-04-09] MEDS: LEVOFLOXACIN 500MG-D5W PMX 500 MG in DEXTROSE/WATER 1 100ML.BAG IVPB SCH (10:50)
--- NOTE | 2021-04-09 10:52 | P.HPIM ---
History of Present Illness H&P Date: 04/09/21 Chief Complaint: Abdominal pain nausea and diarrhea dysuria HISTORY OF PRESENT ILLNESS This is a 65-year-old female patient of Dr. Aburto and Dr. Prescott with past medical history of coronary artery disease, hypertension, paroxysmal atrial fibrillation on Coumadin, hyper lipidemia, diabetes mellitus type 2, right nephrectomy and bilateral [id number] amputation, chronic pain syndrome under the care of Dr. Ratliff for pain management. Patient reminded that she is under a pain contract with Dr. Hardy and pain medication cannot be provided by another physician. She presents to the emergency room secondary to four-day history of nausea vomiting diarrhea, left lower quadrant abdominal pain, suprapubic pain, urinary incontinence, dysuria, foul-smelling urine, and urine frequency. Patient does not have any fever, has vomiting, bowel movements usually 4-5 times per day, nonbloody, has postprandial diarrhea as well. Patient denies any chest pain, shortness of breath, pleurisy, and no gross hematuria. To emergency room, she has abnormal labs include elevated WBC 14.4, and elevated hemoglobin 18.7, CO2 is low at 13, glucose of 120, creatinine of 0.83, urinalysis, positive for pyuria, with [facility] culture in December 2020, E. coli pansensitive. Abdominal CT was performed in emergency room, shows absent right kidney, hysterectomy and cholecystectomy were present, has calcification the right coronary artery, suspected. There is moderate L5 plaque formation aorta extending to the branches, no lymph node, 4 mm nonobstructing kidney stones noted on the left side. No bowel pathology noted, Patient admitted for dehydration, metabolic acidosis, and acute urinary tract infection, with persistent nausea vomiting and diarrhea. Stools will be checked for C. diff and enteric pathogens, patient did not receive any antibiotic prior to admission. it was given prior to this ER evaluation. No prior history of C. diff, no history of drug resistance UTI in the past. Review of Systems Constitutional: Reports as per HPI, Denies anorexia, Denies chills, Denies chronic headaches, Denies chronic pain, Denies daytime sleepiness, Denies fatigue, Denies fever, Denies lethargy, Denies malaise, Denies night sweats, Denies poor appetite, Denies sweats, Denies weakness, Denies weight gain, Denies weight loss Ears, nose, mouth and throat: Reports as per HPI, Denies ant. neck pain, Denies bleeding gums, Denies dental pain, Denies dysphagia, Denies epistaxis, Denies headache, Denies hoarseness, Denies mouth pain, Denies nasal congestion, Denies nasal discharge, Denies neck fullness/pressure, Denies neck lump, Denies nose pain, Denies odynophagia, Denies post-nasal drip, Denies sinus pain, Denies sinus pressure, Denies swelling in mouth, Denies swelling in throat, Denies sore throat, Denies vertigo, Denies voice changes Cardiovascular: Reports as per HPI, Denies chest pain, Denies claudication, Denies decreased exercise tolerance, Denies dyspnea on exertion, Denies edema, Denies high blood pressure, Denies irregular heart beat, Denies leg edema, Denies lightheadedness, Denies orthopnea, Denies palpitations, Denies paroxysmal nocturnal dyspnea, Denies phlebitis, Denies rapid heart beat, Denies shortness of breath, Denies syncope Respiratory: Reports as per HPI, Denies congestion, Denies cough, Denies cough with sputum, Denies dyspnea, Denies excessive sputum, Denies hemoptysis, Denies home oxygen, Denies pain, Denies pain on inspiration, Denies pleurisy, Denies respiratory infections, Denies sleep apnea, Denies snoring, Denies wheezing Gastrointestinal: Reports as per HPI, Reports abdominal pain, Reports diarrhea, Reports indigestion, Reports loss of appetite, Reports nausea, Reports vomiting Genitourinary: Reports as per HPI, Reports flank pain, Reports nocturia, Reports stress incontinence, Reports urge incontinence, Reports urinary frequency, Denies abnormal vaginal bleeding Menstruation: Reports as per HPI Musculoskeletal: Reports as per HPI, Reports prior amputations Integumentary: Reports as per HPI Neurological: Reports as per HPI, Denies aphasia, Denies ataxia, Denies balance difficulties, Denies burning pain, Denies change in mentation, Denies change in smell/taste, Denies change in speech, Denies confusion, Denies convulsions, Denies double vision, Denies gait dysfunction, Denies head injury, Denies headaches, Denies hearing difficulties, Denies lack of coordination, Denies loss of vision, Denies memory loss, Denies migraines, Denies motor disturbance, Denies numbness, Denies paralysis, Denies paresthesias, Denies seizures, Denies sensory deficit, Denies spasticity, Denies syncope, Denies tic, Denies tingling, Denies transient paralysis, Denies tremors, Denies vertigo, Denies visual changes Psychiatric: Reports as per HPI Endocrine: Reports as per HPI, Denies cold intolerance, Denies deepening of the voice, Denies excessive sweating, Denies excessive thirst, Denies fatigue, Denies flushing, Denies heat intolerance, Denies high blood sugars, Denies increase in ring/shoe/hat size, Denies low blood sugars, Denies nocturia, Denies palpitations, Denies polydipsia, Denies polyphagia, Denies polyuria, Denies proptosis, Denies recent glucocorticoid use, Denies thyroid mass, Denies weight change Hematologic/Lymphatic: Reports as per HPI Allergic/Immunologic: Reports as per HPI, Denies allergic rhinitis, Denies anaphylaxis, Denies angioedema, Denies gluten intolerance, Denies persistent infections, Denies seasonal allergies, Denies urticaria, Denies wheezing Past Medical History Past Medical History: Atrial Fibrillation, Coronary Artery Disease (CAD), CVA/TIA, GERD/Reflux, Hyperlipidemia, Hypertension Additional Past Medical History / Comment(s): hx urinary retention, Nephrolithiasis, recurrent UTI, double amputation lower extremities, aka. small cyst on kidney, pt states no longer diabetic, right kidney removal. 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 Right kidney removal july 2020 Past Anesthesia/Blood Transfusion Reactions: No Reported Reaction Additional Past Anesthesia/Blood Transfusion Reaction / Comment(s): Pt received blood in 1978-no reaction reported. Past Psychological History: Anxiety Additional Psychological History / Comment(s): She is independent. She in a bilateral AKA and gets around in a power wheelchair. She has a hospital bed. aMrisol cisneros no longer drives but takes the bus. Smoking Status: Current some day smoker Past Alcohol Use History: None Reported Additional Past Alcohol Use History / Comment(s): Pt states she started smoking at age 18 yrs and the amount she smokes varies.Smoke a pack in two days Past Drug Use History: None Reported - Past Family History Father Family Medical History: Cancer, Myocardial Infarction (ME) Additional Family Medical History / Comment(s): Father had lung cancer-went into remission. He of a massive ME in his 60's Mother Family Medical History: Cancer Additional Family Medical History / Comment(s): Mother of lung cancer at age 54 yrs. Medications and Allergies Home Medications Medication Instructions Recorded Confirmed Type ALPRAZolam [Xanax] 0.5 mg PO BID 01/20/19 04/08/21 History Atorvastatin Calcium [Lipitor] 80 mg PO HS 12/25/19 04/08/21 History Baclofen [Lioresal] 10 mg PO TID 12/25/19 04/08/21 History Melatonin 10 mg PO HS PRN 12/25/19 04/08/21 History Ondansetron Odt [Zofran ODT] 8 mg PO Q8HR PRN 12/25/19 04/08/21 History Valsartan [Diovan] 160 mg PO BID 12/25/19 04/08/21 History busPIRone HCl [Buspar] 10 mg PO TID 12/25/19 04/08/21 History Simethicone [Gas-X] 250 mg PO DAILY PRN 02/24/20 04/08/21 History Aspirin EC [Ecotrin Low Dose] 81 mg PO DAILY 03/20/20 04/08/21 History polyethylene glycoL 3350 [Miralax] 17 gm PO DAILY PRN 03/20/20 04/08/21 History amLODIPine [Norvasc] 5 mg PO DAILY 03/27/20 04/08/21 History Docusate [Colace] 100 mg PO DAILY PRN 08/28/20 04/08/21 History Pantoprazole Sodium [Protonix] 40 mg PO DAILY 08/28/20 04/08/21 History Dicyclomine [Bentyl] 20 mg PO TID 12/10/20 04/08/21 History HYDROcodone/APAP 10-325MG [Hopkins 1 tab PO QID 12/10/20 04/08/21 History 10-325] Nitroglycerin Sl Tabs [Nitrostat] 0.4 mg SL Q5M PRN 12/10/20 04/08/21 History Apixaban [Eliquis] 5 mg PO BID #60 tab 12/12/20 04/08/21 Rx cloNIDine HCL [Catapres] 0.1 mg PO TID #90 tab 12/13/20 04/08/21 Rx Hydrochlorothiazide 12.5 mg PO DAILY 01/05/21 04/08/21 History [hydroCHLOROthiazide] Meloxicam 15 mg PO DAILY 04/08/21 04/08/21 History carvediloL [Coreg] 6.25 mg PO AC-BID 04/08/21 04/08/21 History methylPREDNISolone [Medrol Dose See Taper PO DAILY 04/08/21 04/08/21 History Pack] Allergies Allergy/AdvReac Type Severity Reaction Status Date / Time sulfamethoxazole Allergy Itching Verified 04/08/21 15:01 [From Septra] trimethoprim [From Septra] Allergy Itching Verified 04/08/21 15:01 levofloxacin [From Levaquin] AdvReac Muscle Pain Verified 04/08/21 15:01 nitrofurantoin AdvReac Unknown Verified 04/08/21 15:01 [From Macrobid] Physical Exam Vitals: Vital Signs Temp Pulse Pulse Resp BP BP Pulse Ox 04/09/21 08:00 64 17 04/09/21 07:00 97.9 F 64 17 114/71 100 04/09/21 01:23 97.8 F 58 L 16 125/82 98 04/08/21 22:15 98.2 F 58 L 18 108/66 97 04/08/21 21:52 70 18 114/68 98 04/08/21 19:00 61 18 97 04/08/21 18:00 61 18 97 04/08/21 17:00 61 18 122/61 97 04/08/21 16:00 61 18 122/70 97 04/08/21 15:00 61 18 88/58 97 04/08/21 14:00 18 04/08/21 13:00 18 104/56 97 04/08/21 12:43 18 04/08/21 11:40 98.6 F 70 18 124/44 96 Intake and Output 04/08/21 04/09/21 04/09/21 22:59 06:59 14:59 Other: Voiding Method Bedpan Bedpan Bedpan # Voids 1 1 Weight 72.575 kg Results CBC & Chem 7: 04/08/21 12:32 04/08/21 12:32 Labs: Abnormal Lab Results - Last 24 Hours (Table) 04/08/21 04/08/21 04/08/21 Range/Units 12:32 12:32 13:14 WBC 14.4 H (3.8-10.6) k/uL RBC 5.97 H (3.80-5.40) m/uL Hgb 18.7 H (11.4-16.0) gm/dL Hct 53.9 H (34.0-46.0) % Neutrophils # 8.5 H (1.3-7.7) k/uL Chloride 110 H (98-107) mmol/L Carbon Dioxide 13 L (22-30) mmol/L BUN 34 H (7-17) mg/dL Glucose 120 H (74-99) mg/dL Lipase 503 H (23-300) U/L Urine Appearance Cloudy H (Clear) Urine Protein Trace H (Negative) Urine Nitrite Positive H (Negative) Ur Leukocyte Esterase Large H (Negative) Urine WBC 86 H (0-5) /hpf Urine WBC Clumps Moderate H (None) /hpf Urine Bacteria Few H (None) /hpf Hyaline Casts 21 H (0-2) /lpf Urine Mucus Occasional H (None) /hpf Microbiology - Last 24 Hours (Table) 04/08/21 13:14 Urine Culture - Preliminary Urine,Voided Laboratory Results WBC 14.4 k/uL (3.8-10.6) H 04/08/21 12:32 RBC 5.97 m/uL (3.80-5.40) H 04/08/21 12:32 Hgb 18.7 gm/dL (11.4-16.0) H 04/08/21 12:32 Hct 53.9 % (34.0-46.0) H 04/08/21 12:32 MCV 90.2 fL (80.0-100.0) 04/08/21 12:32 MCH 31.4 pg (25.0-35.0) 04/08/21 12:32 MCHC 34.8 g/dL (31.0-37.0) 04/08/21 12:32 RDW 12.8 % (11.5-15.5) 04/08/21 12:32 Plt Count 415 k/uL (150-450) 04/08/21 12:32 MPV 7.9 04/08/21 12:32 Neutrophils % 59 % 04/08/21 12:32 Lymphocytes % 31 % 04/08/21 12:32 Monocytes % 6 % 04/08/21 12:32 Eosinophils % 1 % 04/08/21 12:32 Basophils % 1 % 04/08/21 12:32 Neutrophils # 8.5 k/uL (1.3-7.7) H 04/08/21 12:32 Lymphocytes # 4.4 k/uL (1.0-4.8) 04/08/21 12:32 Monocytes # 0.9 k/uL (0-1.0) 04/08/21 12:32 Eosinophils # 0.1 k/uL (0-0.7) 04/08/21 12:32 Basophils # 0.1 k/uL (0-0.2) 04/08/21 12:32 Sodium 137 mmol/L (137-145) 04/08/21 12:32 Potassium 4.3 mmol/L (3.5-5.1) 04/08/21 12:32 Chloride 110 mmol/L (98-107) H 04/08/21 12:32 Carbon Dioxide 13 mmol/L (22-30) L 04/08/21 12:32 Anion Gap 14 mmol/L 04/08/21 12:32 BUN 34 mg/dL (7-17) H 04/08/21 12:32 Creatinine 0.83 mg/dL (0.52-1.04) 04/08/21 12:32 Est GFR (CKD-EPI)AfAm 87 (>60 ml/min/1.73 sqM) 04/08/21 12:32 Est GFR (CKD-EPI)NonAf 76 (>60 ml/min/1.73 sqM) 04/08/21 12:32 Glucose 120 mg/dL (74-99) H 04/08/21 12:32 Calcium 9.4 mg/dL (8.4-10.2) 04/08/21 12:32 Total Bilirubin 1.0 mg/dL (0.2-1.3) 04/08/21 12:32 AST 35 U/L (14-36) 04/08/21 12:32 ALT 28 U/L (4-34) 04/08/21 12:32 Alkaline Phosphatase 95 U/L (38-126) 04/08/21 12:32 Total Protein 7.1 g/dL (6.3-8.2) 04/08/21 12:32 Albumin 3.9 g/dL (3.5-5.0) 04/08/21 12:32 Amylase 99 U/L (30-110) 04/08/21 12:32 Lipase 503 U/L (23-300) H 04/08/21 12:32 Urine Color Yellow 04/08/21 13:14 Urine Appearance Cloudy (Clear) H 04/08/21 13:14 Urine pH 5.5 (5.0-8.0) 04/08/21 13:14 Ur Specific [place] 1.025 (1.001-1.035) 04/08/21 13:14 Urine Protein Trace (Negative) H 04/08/21 13:14 Urine Glucose (UA) Negative (Negative) 04/08/21 13:14 Urine Ketones Negative (Negative) 04/08/21 13:14 Urine Blood Negative (Negative) 04/08/21 13:14 Urine Nitrite Positive (Negative) H 04/08/21 13:14 Urine Bilirubin Negative (Negative) 04/08/21 13:14 Urine Urobilinogen <2.0 mg/dL (<2.0) 04/08/21 13:14 Ur Leukocyte Esterase Large (Negative) H 04/08/21 13:14 Urine RBC 4 /hpf (0-5) 04/08/21 13:14 Urine WBC 86 /hpf (0-5) H 04/08/21 13:14 Urine WBC Clumps Moderate /hpf (None) H 04/08/21 13:14 Urine Bacteria Few /hpf (None) H 04/08/21 13:14 Hyaline Casts 21 /lpf (0-2) H 04/08/21 13:14 Urine Mucus Occasional /hpf (None) H 04/08/21 13:14 Thrombosis Risk Factor Assmnt - DVT/VTE Prophylaxis DVT/VTE Prophylaxis: Pharmacologic Prophylaxis ordered - Choose All That Apply Each Risk Factor Represents 2 Points: Age 61-74 years Each Risk Factor Represents 3 Points: History of DVT/PE Thrombosis Risk Factor Assessment Total Risk Factor Score: 5 Thrombosis Risk Factor Assessment Level: High Risk Assessment and Plan Plan: 1. SIRS, secondary acute urinary tract infection, intractable nausea and vomiting with dehydration, patient has prior history of UTIs in the past, and has underlying left 4 mm nonobstructive renal stone, patient will be receiving Levaquin, and Flagyl pancultures obtained 2. Left lower abdominal pain, with tenderness in the left lower sigmoid region, patient would be treated also as active diverticulitis, CAT scan noncontrast studies were reviewed, IV Levaquin and Flagyl, await resolution of diarrhea, C. diff testing to be done 2. 4 mm left nephrolithiasis, nonobstructive No sign of hydronephrosis. Urine culture in progress. 3. History of coronary artery disease. On Lipitor, Norvasc Catapres Coreg no changes made 4. Hypertension. On Hydrea Diuril, which is on hold secondary diarrhea, continue on Catapres, and Norvasc with parameters 5. Paroxysmal atrial fibrillation. On eliquis and aspirinof GI bleed at this time 6. Hyperlipidemia. On Lipitor 7. Diabetes mellitus type 2. Not on any agents prior to admission, check A1c 8. Right nephrectomy. 9. Bilateral [id number] amputations. 10. Chronic pain management under the care of Dr. Ratliff. 7. Metabolic acidosis, secondary dehydration and GI losses, IV bicarb, till correction of CO2 levels GI prophylaxis DVT prophylaxis
[2021-04-09 11:40] LABS: Glucose,Whole Blood 208 mg/dL (75-99)
[2021-04-09] MEDS ORDERED: LOPERAMIDE 2 MG CAP PO STA (11:56)
[2021-04-09] MEDS ORDERED: LOPERAMIDE 2 MG CAP PO PRN (11:56)
[2021-04-09] MEDS ORDERED: diphenhydrAMINE 25 MG CAP PO PRN (11:57)
[2021-04-09] MEDS: DEXTROSE 5% IN WATER 1,000 ML with SODIUM BICARB (1 MEQ/ML) 150 ML IV SCH (12:53)
[2021-04-09 17:39] LABS: Glucose,Whole Blood 105 mg/dL (75-99)
[2021-04-09] MEDS: INSULIN ASPART (NovoLOG) 100 UNIT/ML VIAL SQ SCH ×2 (17:53→21:04)
[2021-04-09 20:38] LABS: Glucose,Whole Blood 164 mg/dL (75-99)
[2021-04-09] MEDS: ATORVASTATIN 80 MG TAB PO SCH (21:04)
[2021-04-10] MEDS: ONDANSETRON 4 MG/2 ML VIAL IVP PRN ×2 (00:15→05:19)
[2021-04-10] MEDS: HYDROmorphone 0.5 MG/0.5 ML SYRINGE IVP PRN ×7 (00:15→21:17)
[2021-04-10] MEDS: DEXTROSE 5% IN WATER 1,000 ML with SODIUM BICARB (1 MEQ/ML) 150 ML IV SCH ×3 (00:16→20:46)
[2021-04-10] MEDS: metroNIDAZOLE-NS PMX 500 MG in SALINE 1 100ML.BAG IVPB SCH ×4 (00:16→22:42)
[2021-04-10 07:26] LABS: Glucose,Whole Blood 128 mg/dL (75-99)
[2021-04-10] MEDS: INSULIN ASPART (NovoLOG) 100 UNIT/ML VIAL SQ SCH ×4 (07:26→20:46)
[2021-04-10] MEDS: ALPRAZolam 0.5 MG TAB PO SCH ×2 (08:25→20:39)
[2021-04-10] MEDS: APIXABAN 5 MG TAB PO SCH ×2 (08:25→20:39)
[2021-04-10] MEDS: BACLOFEN 10 MG TAB PO SCH ×3 (08:25→20:38)
[2021-04-10] MEDS: PANTOPRAZOLE 40 MG TABLET PO SCH (08:25)
[2021-04-10] MEDS: amLODIPine 5 MG TAB PO SCH (08:25)
[2021-04-10] MEDS: ASPIRIN 81 MG PO SCH (08:25)
[2021-04-10] MEDS: LEVOFLOXACIN 500MG-D5W PMX 500 MG in DEXTROSE/WATER 1 100ML.BAG IVPB SCH (08:26)
[2021-04-10] MEDS: HYDROcodone/APAP 10-325MG 1 EACH TAB PO SCH ×4 (08:27→20:39)
[2021-04-10] MEDS: carvediloL 6.25 MG TAB PO SCH ×2 (08:27→18:08)
[2021-04-10] MEDS: cloNIDine HCL 0.1 MG TAB PO SCH ×3 (08:27→20:41)
[2021-04-10] MEDS: DICYCLOMINE 20 MG TAB PO SCH ×3 (08:27→20:41)
[2021-04-10] MEDS: busPIRone HCl 10 MG TAB PO SCH ×3 (08:27→20:39)
[2021-04-10] MEDS: VALSARTAN 160 MG TAB PO SCH ×2 (08:28→20:41)
[2021-04-10] MEDS: MELOXICAM 7.5 MG TAB PO SCH ×2 (08:28→20:40)
[2021-04-10 08:40] LABS: African American GFR (CKD) >90 (>60 ml/min/1.73 sqM); Albumin 2.8 g/dL (3.5-5.0); Albumin/Globulin Ratio 1.1; Anion Gap 8 mmol/L; Blood Urea Nitrogen 33 mg/dL (7-17); Carbon Dioxide 25 mmol/L (22-30); Chloride 104 mmol/L (98-107); Globulin 2.5 g/dL; Glucose 125 mg/dL (74-99); Non-African American GFR(CKD) 82 (>60 ml/min/1.73 sqM); Potassium 4.1 mmol/L (3.5-5.1); Sodium 137 mmol/L (137-145); Total Protein 5.3 g/dL (6.3-8.2)
[2021-04-10 08:41] LABS: ALT 19 U/L (4-34); AST 22 U/L (14-36); Alkaline Phosphatase 73 U/L (38-126); Calcium 8.4 mg/dL (8.4-10.2); Total Bilirubin 0.2 mg/dL (0.2-1.3)
[2021-04-10] MEDS: CHOLESTYRAMINE (WITH SUGAR) 4 GM PACKET PO SCH ×2 (11:36→18:08)
[2021-04-10 11:46] LABS: HCT 42.5 % (37.2-46.3); HGB 14.1 g/dL (12.0-15.0); MCH 30.5 pg (27.0-32.0); MCHC 33.2 g/dL (32.0-37.0); Mean Platelet Volume 10.5 fL (9.5-12.2); Platelet Count 302 X 10*3/uL (140-440); RBC 4.62 X 10*6/uL (4.10-5.20); RDW 13.2 % (11.5-14.5); WBC 12.42 X 10*3/uL (4.50-10.00)
--- NOTE | 2021-04-10 11:52 | P.PN ---
Subjective Progress Note Date: 04/10/21 HISTORY OF PRESENT ILLNESS This is a 65-year-old female patient of Dr. Aburto and Dr. Prescott with past m edical history of coronary artery disease, hypertension, paroxysmal atrial fibrillation on Coumadin, hyper lipidemia, diabetes mellitus type 2, right nephrectomy and bilateral [id number] amputation, chronic pain syndrome under the care of Dr. Ratliff for pain management. Patient reminded that she is under a pain contract with Dr. Hardy and pain medication cannot be provided by another physician. She presents to the emergency room secondary to four-day history of nausea vomiting diarrhea, left lower quadrant abdominal pain, suprapubic pain, urinary incontinence, dysuria, foul-smelling urine, and urine frequency. Patient does not have any fever, has vomiting, bowel movements usually 4-5 times per day, nonbloody, has postprandial diarrhea as well. Patient denies any chest pain, shortness of breath, pleurisy, and no gross hematuria. To emergency room, she has abnormal labs include elevated WBC 14.4, and elevated hemoglobin 18.7, CO2 is low at 13, glucose of 120, creatinine of 0.83, urinalysis, positive for pyuria, with [facility] culture in December 2020, E. coli pansensitive. Abdominal CT was performed in emergency room, shows absent right kidney, hysterectomy and cholecystectomy were present, has calcification the right coronary artery, suspected. There is moderate L5 plaque formation aorta extending to the branches, no lymph node, 4 mm nonobstructing kidney stones noted on the left side. No bowel pathology noted, Patient admitted for dehydration, metabolic acidosis, and acute urinary tract infection, with persistent nausea vomiting and diarrhea. Stools will be checked for C. diff and enteric pathogens, patient did not receive any antibiotic prior to admission. it was given prior to this ER evaluation. No prior history of C. diff, no history of drug resistance UTI in the past. 04/10: Patient denies having any nausea or vomiting. She is complaining of diarrhea and has abdominal pain following bowel movement. She received 1 dose of Imodium yesterday. Questran will be started scheduled 2 times daily. Patient has been afebrile, heart rate 62, blood pressure 131/60, pulse ox 99% on room air. Repeat blood work today reveals normal electrolytes, BUN 33 creatinine 0.78. Blood sugars are running between 105 and 164. Liver function tests are normal. Urine culture is showing gram-negative bacilli stool culture is in progress and blood culture no growth after 24 hours. REVIEW OF SYSTEMS Constitutional: No fever, no chills, no night sweats. No weight change. No weakness, fatigue or lethargy. No daytime sleepiness. EENT: No headache. No blurred vision or double vision, no loss of vision. No dizziness. No nasal drainage or congestion. No epistaxis. No sore throat. Lungs: No shortness of breath, cough, no sputum production. No wheezing. Cardiovascular: No chest pain, no lower extremity edema. No palpitations. No paroxysmal nocturnal dyspnea. No orthopnea. No lightheadedness or dizziness. No syncopal episodes. Abdominal: Reports abdominal pain. No nausea, vomiting. Reports diarrhea. No constipation. No bloody or tarry stools. Reports loss of appetite. Genitourinary: No dysuria, increased frequency, urgency. No urinary retention. Musculoskeletal: No myalgias. No muscle weakness, no gait dysfunction, no frequ ent falls. No back pain. No neck pain. Integumentary: No wounds, no lesions. No rash or pruritus. No unusual bruising. No change in hair or nails. Neurologic: No aphasia. No facial droop. No change in mentation. No head injury. No headache. No paralysis. No paresthesia. Psychiatric: No depression. No anxiety. No mood swings. Endocrine: Noted abnormal blood sugars. No weight change. No excessive sweating or thirst. No cold intolerance. 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 Patient is resting in bed and appears to be comfortable and in no acute distress. HEENT: Head is atraumatic, normocephalic. Pupils equal, round. Sclerae is anicteric. NECK: Supple. No JVD. No lymphadenopathy. No thyromegaly. LUNGS: Clear to auscultation. No wheezes or rhonchi. No intercostal retractions. HEART: Regular rate and rhythm. No murmur. ABDOMEN: Soft. Bowel sounds are present. No masses. Left lower abdominal tenderness. EXTREMITIES: No pedal edema. No calf tenderness. NEUROLOGICAL: Patient is awake, alert and oriented x3. Cranial nerves 2 through 12 are grossly intact. ASSESSMENT AND PLAN 1. SIRS, secondary acute urinary tract infection, intractable nausea and vomiting with dehydration, patient has prior history of UTIs in the past, and has underlying left 4 mm nonobstructive renal stone, patient will be receiving Levaquin, and Flagyl pancultures obtained 2. Left lower abdominal pain, with tenderness in the left lower sigmoid region, patient would be treated also as active diverticulitis, CAT scan noncontrast studies were reviewed, IV Levaquin and Flagyl, await resolution of diarrhea, C. diff testing negative. Patient started on Questran. 3. 4 mm left nephrolithiasis, nonobstructive No sign of hydronephrosis. Urine culture in progress. 4. History of coronary artery disease. On Lipitor, Norvasc Catapres Coreg no changes made 5. Hypertension. On Hydrea Diuril, which is on hold secondary diarrhea, continue on Catapres, and Norvasc with parameters 6. Paroxysmal atrial fibrillation. On eliquis and aspirinof GI bleed at this time 7. Hyperlipidemia. On Lipitor 8. Diabetes mellitus type 2. Not on any agents prior to admission, check A1c, start NovoLog scale before meals and at bedtime. 9. Right nephrectomy. 10. Bilateral [id number] amputations. 11. Chronic pain management under the care of Dr. Ratliff. 12. Metabolic acidosis, secondary dehydration and GI losses, IV bicarb, till correction of CO2 levels GI prophylaxis DVT prophylaxis DISCHARGE DIAGNOSES Home Impression and plan of care have been directed as dictated by the signing physician. Sherie Olivares nurse practitioner acting as scribe for signing physician. Objective - Vital Signs Vital signs: Vital Signs Temp 97.9 F 04/10/21 07:00 Pulse 62 04/10/21 08:00 Resp 18 04/10/21 08:00 BP 131/68 04/10/21 07:00 Pulse Ox 99 04/10/21 07:00 Intake & Output 04/09/21 04/10/21 04/10/21 18:59 06:59 18:59 Intake Total 600 118 Balance 600 118 Intake: Oral 600 118 Other: Voiding Method Bedpan Bedpan Bedpan # Voids 3 1 # Bowel Movements 2 - Labs CBC & Chem 7: 04/08/21 12:32 04/10/21 07:54 Labs: Abnormal Lab Results - Last 24 Hours (Table) 04/09/21 04/09/21 04/09/21 Range/Units 11:38 17:37 20:37 BUN (7-17) mg/dL Glucose (74-99) mg/dL POC Glucose (mg/dL) 208 H 105 H 164 H (75-99) mg/dL Total Protein (6.3-8.2) g/dL Albumin (3.5-5.0) g/dL 04/10/21 04/10/21 Range/Units 07:24 07:54 BUN 33 H (7-17) mg/dL Glucose 125 H (74-99) mg/dL POC Glucose (mg/dL) 128 H (75-99) mg/dL Total Protein 5.3 L (6.3-8.2) g/dL Albumin 2.8 L (3.5-5.0) g/dL Microbiology - Last 24 Hours (Table) 04/08/21 13:14 Urine Culture - Preliminary Urine,Voided Gram Neg Bacilli 04/08/21 15:48 Blood Culture - Preliminary Blood No Growth after 24 hours 04/08/21 14:27 Stool Culture - Preliminary Stool
[2021-04-10 12:23] LABS: Glucose,Whole Blood 144 mg/dL (75-99)
[2021-04-10 14:06] LABS: Basophils # (M) 0 X 10*3/uL (0.00-0.10); Eosinophils # (M) 0.25 X 10*3/uL (0.04-0.35); Lymphocytes # (M) 5.59 X 10*3/uL (0.90-5.00); Monocytes # (M) 0.12 X 10*3/uL (0.20-1.00); Myelocytes % 1 % (0-0); Neutrophils # (M) 6.33 X 10*3/uL (2.00-8.90); Neutrophils % (M) 51 %
[2021-04-10] MEDS: SODIUM CHLORIDE 0.9% 1,000 ML IV SCH (15:06)
[2021-04-10 16:56] LABS: Hemoglobin A1C 6.3 % (4.0-6.0)
[2021-04-10 17:26] LABS: Glucose,Whole Blood 122 mg/dL (75-99)
[2021-04-10 20:36] LABS: Glucose,Whole Blood 140 mg/dL (75-99)
[2021-04-10] MEDS: ATORVASTATIN 80 MG TAB PO SCH (20:38)
[2021-04-10] MEDS: metroNIDAZOLE 500 MG TAB PO SCH (22:41)
[2021-04-11] MEDS: HYDROmorphone 0.5 MG/0.5 ML SYRINGE IVP PRN ×8 (00:39→23:05)
[2021-04-11 07:25] LABS: Glucose,Whole Blood 168 mg/dL (75-99)
[2021-04-11] MEDS: MELOXICAM 7.5 MG TAB PO SCH (07:40)
[2021-04-11] MEDS: HYDROcodone/APAP 10-325MG 1 EACH TAB PO SCH ×4 (07:41→21:06)
[2021-04-11] MEDS: ALPRAZolam 0.5 MG TAB PO SCH ×2 (07:41→20:05)
[2021-04-11] MEDS: DICYCLOMINE 20 MG TAB PO SCH ×3 (07:42→21:06)
[2021-04-11] MEDS: VALSARTAN 160 MG TAB PO SCH ×2 (07:42→20:05)
[2021-04-11] MEDS: ASPIRIN 81 MG PO SCH (07:42)
[2021-04-11] MEDS: busPIRone HCl 10 MG TAB PO SCH ×3 (07:42→21:07)
[2021-04-11] MEDS: carvediloL 6.25 MG TAB PO SCH ×2 (07:42→16:46)
[2021-04-11] MEDS: APIXABAN 5 MG TAB PO SCH ×2 (07:43→20:05)
[2021-04-11] MEDS: cloNIDine HCL 0.1 MG TAB PO SCH ×3 (07:43→23:02)
[2021-04-11] MEDS: amLODIPine 5 MG TAB PO SCH (07:43)
[2021-04-11] MEDS: metroNIDAZOLE 500 MG TAB PO SCH ×3 (07:43→23:16)
[2021-04-11] MEDS: BACLOFEN 10 MG TAB PO SCH ×3 (07:44→21:06)
[2021-04-11] MEDS: PANTOPRAZOLE 40 MG TABLET PO SCH (07:44)
[2021-04-11] MEDS: metroNIDAZOLE-NS PMX 500 MG in SALINE 1 100ML.BAG IVPB SCH (07:44)
[2021-04-11] MEDS: INSULIN ASPART (NovoLOG) 100 UNIT/ML VIAL SQ SCH ×4 (07:44→21:07)
[2021-04-11] MEDS: DEXTROSE 5% IN WATER 1,000 ML with SODIUM BICARB (1 MEQ/ML) 150 ML IV SCH (07:45)
[2021-04-11] MEDS: ONDANSETRON 4 MG/2 ML VIAL IVP PRN (07:49)
[2021-04-11] MEDS ORDERED: polyethylene glycoL 3350 17 GM POWD.PACK PO STA (08:56)
[2021-04-11] MEDS ORDERED: LEVOFLOXACIN 500 MG TAB PO SCH (09:00)
[2021-04-11 09:13] LABS: HCT 38.7 % (37.2-46.3); HGB 13.2 g/dL (12.0-15.0); MCH 30.4 pg (27.0-32.0); MCHC 34.1 g/dL (32.0-37.0); MCV 89.2 fL (80.0-97.0); Mean Platelet Volume 10.6 fL (9.5-12.2); Platelet Count 263 X 10*3/uL (140-440); RBC 4.34 X 10*6/uL (4.10-5.20); RDW 13.1 % (11.5-14.5); WBC 10.65 X 10*3/uL (4.50-10.00)
--- NOTE | 2021-04-11 10:27 | XR ---
EXAMINATION TYPE: XR abdomen 2V DATE OF EXAM: 04/11/2021 COMPARISON: NONE HISTORY: constipation TECHNIQUE: two view abdominal series FINDINGS: The osseous structures are intact. The bowel gas pattern is nonspecific. I lateral lower lobe infilt rate and small effusion. Surgical clips in the abdomen. Curvature of the spine with degenerative lopez ges. Arthropathy of the hips with Limited assessment of the left hip due to rotation. Chronic deformi ty of the left hip suspected. IMPRESSION: 1. Nonspecific abdomen with no obstruction
[2021-04-11 10:33] LABS: African American GFR (CKD) 69.4 (60.0-200.0); Albumin 3.2 g/dL (3.80-4.90); Albumin/Globulin Ratio 1.78 (1.60-3.17); Anion Gap 4.8 mmol/L (4.00-12.00); Calcium 8.1 mg/dL (8.7-10.3); Carbon Dioxide 32.2 mmol/L (21.6-31.8); Globulin 1.8 g/dL (1.6-3.3); Non-African American GFR(CKD) 59.9 (60.0-200.0); Potassium 4.3 mmol/L (3.5-5.5); Total Bilirubin 0.2 mg/dL (0.2-1.2)
--- NOTE | 2021-04-11 10:36 | P.PN ---
Subjective Progress Note Date: 04/11/21 HISTORY OF PRESENT ILLNESS This is a 65-year-old female patient of Dr. Aburto and Dr. Prescott with past m edical history of coronary artery disease, hypertension, paroxysmal atrial fibrillation on Coumadin, hyper lipidemia, diabetes mellitus type 2, right nephrectomy and bilateral [id number]-[id number] amputation, chronic pain syndrome under the care of Dr. Ratliff for pain management. Patient reminded that she is under a pain contract with Dr. Hardy and pain medication cannot be provided by another physician. She presents to the emergency room secondary to four-day history of nausea vomiting diarrhea, left lower quadrant abdominal pain, suprapubic pain, urinary incontinence, dysuria, foul-smelling urine, and urine frequency. Patient does not have any fever, has vomiting, bowel movements usually 4-5 times per day, nonbloody, has postprandial diarrhea as well. Patient denies any chest pain, shortness of breath, pleurisy, and no gross hematuria. To emergency room, she has abnormal labs include elevated WBC 14.4, and elevated hemoglobin 18.7, CO2 is low at 13, glucose of 120, creatinine of 0.83, urinalysis, positive for pyuria, with [facility] culture in December 2020, E. coli pansensitive. Abdominal CT was performed in emergency room, shows absent right kidney, hysterectomy and cholecystectomy were present, has calcification the right coronary artery, suspected. There is moderate L5 plaque formation aorta extending to the branches, no lymph node, 4 mm nonobstructing kidney stones noted on the left side. No bowel pathology noted, Patient admitted for dehydration, metabolic acidosis, and acute urinary tract infection, with persistent nausea vomiting and diarrhea. Stools will be checked for C. diff and enteric pathogens, patient did not receive any antibiotic prior to admission. it was given prior to this ER evaluation. No prior history of C. diff, no history of drug resistance UTI in the past. 04/10: Patient denies having any nausea or vomiting. She is complaining of diarrhea and has abdominal pain following bowel movement. She received 1 dose of Imodium yesterday. Questran will be started scheduled 2 times daily. Patient has been afebrile, heart rate 62, blood pressure 131/60, pulse ox 99% on room air. Repeat blood work today reveals normal electrolytes, BUN 33 creatinine 0.78. Blood sugars are running between 105 and 164. Liver function tests are normal. Urine culture is showing gram-negative bacilli stool culture is in progress and blood culture no growth after 24 hours. 04/11: Patient diarrhea yesterday but still feels that she is constipated and has a lot of stool in her abdomen. IV fluids will be discontinued, Questran discontinued, patient started on Senokot S and 1 dose of MiraLAX. Abdominal x- ray showed nonspecific abdomen with no obstruction. Hemoglobin A1c came back at 6.3 and patient is diet controlled diabetes2. Patient has been afebrile, heart rate 66, blood pressure 145/81, pulse ox 90% on room air. WBC 10.6, hemoglobin 13.2, platelet count 163. Blood Glucose Running between 122-1 268. REVIEW OF SYSTEMS Constitutional: No fever, no chills, no night sweats. No weight change. No weakness, fatigue or lethargy. No daytime sleepiness. EENT: No headache. No blurred vision or double vision, no loss of vision. No dizziness. No nasal drainage or congestion. No epistaxis. No sore throat. Lungs: No shortness of breath, cough, no sputum production. No wheezing. Cardiovascular: No chest pain, no lower extremity edema. No palpitations. No paroxysmal nocturnal dyspnea. No orthopnea. No lightheadedness or dizziness. No syncopal episodes. Abdominal: Reports abdominal pain. No nausea, vomiting. Reports diarrhea. No constipation. No bloody or tarry stools. Reports loss of appetite. Genitourinary: No dysuria, increased frequency, urgency. No urinary retention. Musculoskeletal: No myalgias. No muscle weakness, no gait dysfunction, no frequent falls. No back pain. No neck pain. Integumentary: No wounds, no lesions. No rash or pruritus. No unusual bruising. No change in hair or nails. Neurologic: No aphasia. No facial droop. No change in mentation. No head injury. No headache. No paralysis. No paresthesia. Psychiatric: No depression. No anxiety. No mood swings. Endocrine: Noted abnormal blood sugars. No weight change. No excessive sweating or thirst. No cold intolerance. 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 Patient is resting in bed and appears to be comfortable and in no acute distress. HEENT: Head is atraumatic, normocephalic. Pupils equal, round. Sclerae is anicteric. NECK: Supple. No JVD. No lymphadenopathy. No thyromegaly. LUNGS: Clear to auscultation. No wheezes or rhonchi. No intercostal retractions. HEART: Regular rate and rhythm. No murmur. ABDOMEN: Soft. Bowel sounds are present. No masses. Left lower abdominal tenderness. EXTREMITIES: Bilateral [id number] amputations. NEUROLOGICAL: Patient is awake, alert and oriented x3. Cranial nerves 2 through 12 are grossly intact. ASSESSMENT AND PLAN 1. SIRS, secondary acute E. coli urinary tract infection, intractable nausea and vomiting with dehydration, patient has prior history of UTIs in the past, and has underlying left 4 mm nonobstructive renal stone, patient will be receiving Levaquin, and Flagyl pancultures obtained 2. Left lower abdominal pain, with tenderness in the left lower sigmoid region, patient would be treated also as active diverticulitis and chronic constipation and stool burden., CAT scan noncontrast studies were reviewed, IV Levaquin and Flagyl, await resolution of diarrhea, C. diff testing negative. Patient started on Questran. 3. 4 mm left nephrolithiasis, nonobstructive No sign of hydronephrosis. Urine culture in progress. 4. History of coronary artery disease. On Lipitor, Norvasc Catapres Coreg no changes made 5. Hypertension. On Hydrea Diuril, which is on hold secondary diarrhea, continue on Catapres, and Norvasc with parameters 6. Paroxysmal atrial fibrillation. On eliquis and aspirin 7. Hyperlipidemia. On Lipitor 8. Diabetes mellitus type 2. Diet controlled, start NovoLog scale before meals and at bedtime. 9. Right nephrectomy. 10. Bilateral xpebh-[id number]-rhpl amputations. 11. Chronic pain management under the care of Dr. Ratliff. 12. Metabolic acidosis, secondary dehydration and GI losses, IV bicarb, till correction of CO2 levels GI prophylaxis DVT prophylaxis DISCHARGE DIAGNOSES Home on Wednesday Impression and plan of care have been directed as dictated by the signing physician. Sherie Olivares nurse practitioner acting as scribe for signing physician. Objective - Vital Signs Vital signs: Vital Signs Temp 98.2 F 04/11/21 07:00 Pulse 66 09/10/21 07:00 Resp 16 04/11/21 07:00 BP 145/81 04/11/21 07:00 Pulse Ox 98 04/11/21 07:00 Intake & Output 04/10/21 04/11/21 04/11/21 18:59 06:59 18:59 Intake Total 474 Balance 474 Intake: Oral 474 Other: Voiding Method Bedpan Bedpan Bedpan # Voids 3 2 - Labs CBC & Chem 7: 04/11/21 05:25 04/10/21 07:54 Labs: Abnormal Lab Results - Last 24 Hours (Table) 04/10/21 04/10/21 04/10/21 Range/Units 07:54 07:54 12:22 WBC 12.42 H (4.50-10.00) X 10*3/uL Myelocytes % 1 H (0-0) % Lymphocytes # (Manual) 5.59 H (0.90-5.00) X 10*3/uL Monocytes # (Manual) 0.12 L (0.20-1.00) X 10*3/uL POC Glucose (mg/dL) 144 H (75-99) mg/dL Hemoglobin A1c 6.3 H (4.0-6.0) % 04/10/21 04/10/21 04/11/21 Range/Units 17:16 20:35 07:24 WBC (4.50-10.00) X 10*3/uL Myelocytes % (0-0) % Lymphocytes # (Manual) (0.90-5.00) X 10*3/uL Monocytes # (Manual) (0.20-1.00) X 10*3/uL POC Glucose (mg/dL) 122 H 140 H 168 H (75-99) mg/dL Hemoglobin A1c (4.0-6.0) % Microbiology - Last 24 Hours (Table) 04/08/21 15:48 Blood Culture - Preliminary Blood No Growth after 48 hours 04/08/21 13:14 Urine Culture - Final Urine,Voided Escherichia coli
[2021-04-11] MEDS: SENNOSIDES-DOCUSATE SODIUM 1 EACH TAB PO SCH (11:08)
[2021-04-11 12:41] LABS: Glucose,Whole Blood 101 mg/dL (75-99)
[2021-04-11] MEDS: SODIUM CHLORIDE 0.9% 1,000 ML IV SCH (15:35)
[2021-04-11 17:39] LABS: Glucose,Whole Blood 145 mg/dL (75-99)
[2021-04-11] MEDS: ATORVASTATIN 80 MG TAB PO SCH (20:05)
[2021-04-11 20:21] LABS: Glucose,Whole Blood 143 mg/dL (75-99)
[2021-04-12] MEDS: HYDROmorphone 0.5 MG/0.5 ML SYRINGE IVP PRN ×3 (02:24→08:26)
[2021-04-12] MEDS: ONDANSETRON 4 MG/2 ML VIAL IVP PRN (05:36)
[2021-04-12 07:22] LABS: Glucose,Whole Blood 114 mg/dL (75-99)
[2021-04-12] MEDS: INSULIN ASPART (NovoLOG) 100 UNIT/ML VIAL SQ SCH (07:23)
[2021-04-12 08:02] VITALS: BP 150/80; PULSE 62; RESP 16; TEMP 98.6
[2021-04-12] MEDS: MELOXICAM 7.5 MG TAB PO SCH (08:02)
[2021-04-12] MEDS: ASPIRIN 81 MG PO SCH (08:03)
[2021-04-12] MEDS: metroNIDAZOLE 500 MG TAB PO SCH (08:03)
[2021-04-12] MEDS: DICYCLOMINE 20 MG TAB PO SCH (08:03)
[2021-04-12] MEDS: busPIRone HCl 10 MG TAB PO SCH (08:03)
[2021-04-12] MEDS: BACLOFEN 10 MG TAB PO SCH (08:04)
[2021-04-12] MEDS: HYDROcodone/APAP 10-325MG 1 EACH TAB PO SCH (08:04)
[2021-04-12] MEDS: cloNIDine HCL 0.1 MG TAB PO SCH (08:04)
[2021-04-12] MEDS: carvediloL 6.25 MG TAB PO SCH (08:04)
[2021-04-12] MEDS: SENNOSIDES-DOCUSATE SODIUM 1 EACH TAB PO SCH (08:04)
[2021-04-12] MEDS: ALPRAZolam 0.5 MG TAB PO SCH (08:04)
[2021-04-12] MEDS: PANTOPRAZOLE 40 MG TABLET PO SCH (08:04)
[2021-04-12] MEDS: VALSARTAN 160 MG TAB PO SCH (08:04)
[2021-04-12] MEDS: amLODIPine 5 MG TAB PO SCH (08:04)
[2021-04-12] MEDS: APIXABAN 5 MG TAB PO SCH (08:05)
[2021-04-12] MEDS ORDERED: LEVOFLOXACIN 250 MG TAB PO SCH (09:00)
--- NOTE | 2021-04-12 10:56 | P.DS ---
Providers Date of admission: 04/09/21 09:03 Expected date of discharge: 04/12/21 Attending physician: Ann Santiago Primary care physician: Arvin Aburto MD Hospital Course: HISTORY OF PRESENT ILLNESS This is a 65-year-old female patient of Dr. Aburto and Dr. Prescott with past medical history of coronary artery disease, hypertension, paroxysmal atrial fibrillation on Coumadin, hyper lipidemia, diabetes mellitus type 2, right nephrectomy and bilateral ticjf-[id number] amputation, chronic pain syndrome under the care of Dr. Ratliff for pain management. Patient reminded that she is under a pain contract with Dr. Hardy and pain medication cannot be provided by another physician. She presents to the emergency room secondary to four-day history of nausea vomiting diarrhea, left lower quadrant abdominal pain, suprapubic pain, urinary incontinence, dysuria, foul-smelling urine, and urine frequency. Patient does not have any fever, has vomiting, bowel movements usually 4-5 times per day, nonbloody, has postprandial diarrhea as well. Patient denies any chest pain, shortness of breath, pleurisy, and no gross hematuria. To emergency room, she has abnormal labs include elevated WBC 14.4, and elevated hemoglobin 18.7, CO2 is low at 13, glucose of 120, creatinine of 0.83, urinalysis, positive for pyuria, with [facility] culture in December 2020, E. coli pansensitive. Abdominal CT was performed in emergency room, shows absent right kidney, hysterectomy and cholecystectomy were present, has calcification the right coronary artery, suspected. There is moderate L5 plaque formation aorta extending to the branches, no lymph node, 4 mm nonobstructing kidney stones noted on the left side. No bowel pathology noted, Patient admitted for dehydration, metabolic acidosis, and acute urinary tract infection, with persistent nausea vomiting and diarrhea. Stools will be checked for C. diff and enteric pathogens, patient did not receive any antibiotic prior to admission. it was given prior to this ER evaluation. No prior history of C. diff, no history of drug resistance UTI in the past. 04/10: Patient denies having any nausea or vomiting. She is complaining of diarrhea and has abdominal pain following bowel movement. She received 1 dose of Imodium yesterday. Questran will be started scheduled 2 times daily. Patient has been afebrile, heart rate 62, blood pressure 131/60, pulse ox 99% on room air. Repeat blood work today reveals normal electrolytes, BUN 33 creatinine 0.78. Blood sugars are running between 105 and 164. Liver function tests are normal. Urine culture is showing gram-negative bacilli stool culture is in progress and blood culture no growth after 24 hours. 04/11: Patient diarrhea yesterday but still feels that she is constipated and has a lot of stool in her abdomen. IV fluids will be discontinued, Questran discontinued, patient started on Senokot S and 1 dose of MiraLAX. Abdominal x- ray showed nonspecific abdomen with no obstruction. Hemoglobin A1c came back at 6.3 and patient is diet controlled diabetes2. Patient has been afebrile, heart rate 66, blood pressure 145/81, pulse ox 90% on room air. WBC 10.6, hemoglobin 13.2, platelet count 163. Blood Glucose Running between 122-168. 04/12: Patient states that she had a normal bowel movement yesterday. She continues to have pain in the left lower quadrant. Regarding water intake, patient states she drinks 1-1-1/2 bottles of water per day and patient encouraged to drink at least 4 bottles per day. No nausea or vomiting. No fever or chills. She has been afebrile, heart rate 62, blood pressure 150/80, pulse ox 99% on room air. Capillary blood glucose running between 100 1445. Patient will be discharged home today in stable condition. DISCHARGE DIAGNOSES 1. SIRS, secondary acute urinary tract infection, intractable nausea and vomiting with dehydration 2. Left lower abdominal pain, with tenderness in the left lower sigmoid region, patient would be treated also as active diverticulitis 3. 4 mm left nephrolithiasis, nonobstructive No sign of hydronephrosis. 4. History of coronary artery disease. 5. Hypertension. 6. Paroxysmal atrial fibrillation. 7. Hyperlipidemia. On Lipitor 8. Diabetes mellitus type 2. 9. Right nephrectomy. 10. Bilateral anzle-jaj-nvkd amputations. 11. Chronic pain management under the care of Dr. Ratliff. 12. Metabolic acidosis, secondary dehydration and GI losses DISCHARGE DIAGNOSES Home Impression and plan of care have been directed as dictated by the signing physician. Sherie Olivares nurse practitioner acting as scribe for signing physician. Patient Condition at Discharge: Good Plan - Discharge Summary Discharge Rx Participant: No New Discharge Prescriptions: New metroNIDAZOLE [Flagyl] 500 mg PO Q8HR #21 tab Levofloxacin [Levaquin] 250 mg PO DAILY #7 tab Sennosides-Docusate Sodium [Senokot-S] 2 each PO DAILY tab Continue ALPRAZolam [Xanax] 0.5 mg PO BID Valsartan [Diovan] 160 mg PO BID Ondansetron Odt [Zofran ODT] 8 mg PO Q8HR PRN PRN Reason: Nausea And Vomiting busPIRone HCl [Buspar] 10 mg PO TID Baclofen [Lioresal] 10 mg PO TID Atorvastatin Calcium [Lipitor] 80 mg PO HS Melatonin 10 mg PO HS PRN PRN Reason: sleep Simethicone [Gas-X] 250 mg PO DAILY PRN PRN Reason: gas relief polyethylene glycoL 3350 [Miralax] 17 gm PO DAILY PRN PRN Reason: Constipation Aspirin EC [Ecotrin Low Dose] 81 mg PO DAILY amLODIPine [Norvasc] 5 mg PO DAILY Pantoprazole Sodium [Protonix] 40 mg PO DAILY Docusate [Colace] 100 mg PO DAILY PRN PRN Reason: Constipation Nitroglycerin Sl Tabs [Nitrostat] 0.4 mg SL Q5M PRN PRN Reason: Chest Pain Apixaban [Eliquis] 5 mg PO BID #60 tab carvediloL [Coreg] 6.25 mg PO AC-BID HYDROcodone/APAP 10-325MG [[place] 10-325] 1 tab PO QID cloNIDine HCL [Catapres] 0.1 mg PO TID #90 tab Meloxicam 15 mg PO DAILY Dicyclomine [Bentyl] 20 mg PO TID #90 tab Discontinued Hydrochlorothiazide [hydroCHLOROthiazide] 12.5 mg PO DAILY methylPREDNISolone [Medrol Dose Pack] See Taper PO DAILY Discharge Medication List ALPRAZolam [Xanax] 0.5 mg PO BID 01/20/19 [History] Atorvastatin Calcium [Lipitor] 80 mg PO HS 12/25/19 [History] Baclofen [Lioresal] 10 mg PO TID 12/25/19 [History] Melatonin 10 mg PO HS PRN 12/25/19 [History] Ondansetron Odt [Zofran ODT] 8 mg PO Q8HR PRN 12/25/19 [History] Valsartan [Diovan] 160 mg PO BID 12/25/19 [History] busPIRone HCl [Buspar] 10 mg PO TID 12/25/19 [History] Simethicone [Gas-X] 250 mg PO DAILY PRN 02/24/20 [History] Aspirin EC [Ecotrin Low Dose] 81 mg PO DAILY 03/20/20 [History] polyethylene glycoL 3350 [Miralax] 17 gm PO DAILY PRN 03/20/20 [History] amLODIPine [Norvasc] 5 mg PO DAILY 03/27/20 [History] Docusate [Colace] 100 mg PO DAILY PRN 08/28/20 [History] Pantoprazole Sodium [Protonix] 40 mg PO DAILY 08/28/20 [History] HYDROcodone/APAP 10-325MG [[place] 10-325] 1 tab PO QID 12/10/20 [History] Nitroglycerin Sl Tabs [Nitrostat] 0.4 mg SL Q5M PRN 12/10/20 [History] Apixaban [Eliquis] 5 mg PO BID #60 tab 12/12/20 [Rx] cloNIDine HCL [Catapres] 0.1 mg PO TID #90 tab 12/13/20 [Rx] Meloxicam 15 mg PO DAILY 04/08/21 [History] carvediloL [Coreg] 6.25 mg PO AC-BID 04/08/21 [History] Dicyclomine [Bentyl] 20 mg PO TID #90 tab 04/12/21 [Rx] Levofloxacin [Levaquin] 250 mg PO DAILY #7 tab 04/12/21 [Rx] Sennosides-Docusate Sodium [Senokot-S] 2 each PO DAILY tab 04/12/21 [Rx] metroNIDAZOLE [Flagyl] 500 mg PO Q8HR #21 tab 04/12/21 [Rx] Follow up Appointment(s)/Referral(s): Arvin Aburto MD [Primary Care Provider] - 1 Week Patient Instructions/Handouts: Urinary Tract Infection in Women (DC) Discharge Disposition: HOME SELF-CARE
== END 2021-04-12 10:04 | disposition home or self-care (01) | DRG 690 ==
LOC: EC 11:35 → 1SOBS 14:52 → 6NMEDSUR 16:47 → OBSVTOIN 04-09 09:03
PROVIDERS: ADMIT Family Medicine; ATTEND Family Medicine
DX: N39.0 Urinary tract infection, site not specified (principal); E87.2 Acidosis; K57.92 Diverticulitis of intestine, part unspecified, without perforation or abscess without bleeding; E11.9 Type 2 diabetes mellitus without complications; E78.5 Hyperlipidemia, unspecified; E86.0 Dehydration; F17.210 Nicotine dependence, cigarettes, uncomplicated; F41.9 Anxiety disorder, unspecified; G89.4 Chronic pain syndrome; I10 Essential (primary) hypertension; I25.10 Atherosclerotic heart disease of native coronary artery without angina pectoris; I48.0 Paroxysmal atrial fibrillation; K59.09 Other constipation; N20.0 Calculus of kidney; R32 Unspecified urinary incontinence; Z89.612 Acquired absence of left leg above knee; Z89.611 Acquired absence of right leg above knee; Z79.01 Long term (current) use of anticoagulants; Z79.1 Long term (current) use of non-steroidal anti-inflammatories (NSAID); Z79.82 Long term (current) use of aspirin; Z79.899 Other long term (current) drug therapy; Z80.1 Family history of malignant neoplasm of trachea, bronchus and lung; Z82.49 Family history of ischemic heart disease and other diseases of the circulatory system; Z86.73 Personal history of transient ischemic attack (TIA), and cerebral infarction without residual deficits; Z87.440 Personal history of urinary (tract) infections; Z87.442 Personal history of urinary calculi; Z90.5 Acquired absence of kidney; Z90.710 Acquired absence of both cervix and uterus; Z90.722 Acquired absence of ovaries, bilateral; Z98.890 Other specified postprocedural states; Z90.49 Acquired absence of other specified parts of digestive tract; Z98.1 Arthrodesis status; Z88.1 Allergy status to other antibiotic agents; Z88.2 Allergy status to sulfonamides
CPT/HCPCS: 36415; 74019; 74176; 80053; 81001; 82150; 82607; 83036; 83690; 85025; 85027; 87040; 87045; 87046; 87077; 87086; 87186; 87324; 96361; 96374; 96375; 99285

== ENCOUNTER 2021-05-29 18:33 | Emergency (ER) | payer OTHER ==
[2021-05-29 18:50] VITALS: RESP 18; TEMP 99
[2021-05-29] MEDS ORDERED: HYDROmorphone 0.5 MG/0.5 ML SYRINGE IVP STA ×2 (19:13→20:22)
--- NOTE | 2021-05-29 19:19 | ED ---
General Adult HPI - General Chief complaint: Abdominal Pain Stated complaint: Diarrhea Time Seen by Provider: 05/29/21 18:47 Source: patient, EMS Mode of arrival: EMS Limitations: physical limitation - History of Present Illness Initial comments: Dictation was produced using fflick dictation software. please excuse any grammatical, word or spelling errors. Chief Complaint: 65-year-old female who is bilateral lower extremity amputee presents emergency department for abdominal pain and diarrhea History of Present Illness: Since 5-year-old female she is a bilateral lower extremity amputee. She lives at home. Daughter takes care of her. Patient reports that she has diarrhea episodes since 2 PM. She is concerned as she had black stools also. Patient states she has diffuse abdominal pain. She has history of cholecystectomy, appendectomy. She also has history of nephrectomy. Patient reports that her diarrhea is yellow in color. No vomiting. She reports poor appetite. Denies any fever or constitutional symptoms. The ROS documented in this emergency department record has been reviewed and confirmed by me. Those systems with pertinent positive or negative responses have been documented in the HPI. All other systems are other negative and/or noncontributory. PHYSICAL EXAM: General Impression: Alert and oriented x3, not in acute distress HEENT: Normocephalic atraumatic, extra-ocular movements intact, pupils equal and reactive to light bilaterally, mucous membranes moist. Cardiovascular: Heart regular rate and rhythm Chest: Able to complete full sentences, no retractions, no tachypnea Abdomen: abdomen soft, he is abdominal tenderness to palpation, non-distended, no organomegaly Musculoskeletal: Bilateral lower chin B above-knee amputation, no peripheral edema Motor: no focal deficits noted Neurological: CN II-XII grossly intact, no focal motor or sensory deficits noted Skin: Intact with no visualized rashes Psych: Normal affect and mood Rectal exam: No gross blood on digital rectal exam, no bleeding or melanotic residue ED course: 65-year-old female presents with abdominal pain and diarrhea. Vital signs upon arrival shows central 9.0, so vital signs within acceptable limits. Laboratory evaluation obtained. CBC and metabolic panels on unremarkable. Stool occult blood is negative. Computed tomography scan of the abdomen and pelvis without IV contrast shows no acute intra-abdominal process. Patient given IV analgesics. She is reevaluated at the bedside found be stable medical condition. Patient complaining of upper extremity pain she has an outpatient MRI scheduled. Seems to have been addressed by clinic physicians. Patient will be discharged she did not have any repeat episodes of diarrhea here in the emergency room. - Related Data Home Medications Medication Instructions Recorded Confirmed ALPRAZolam [Xanax] 0.5 mg PO BID 01/20/19 04/08/21 Atorvastatin Calcium [Lipitor] 80 mg PO HS 12/25/19 04/08/21 Baclofen [Lioresal] 10 mg PO TID 12/25/19 04/08/21 Melatonin 10 mg PO HS PRN 12/25/19 04/08/21 Ondansetron Odt [Zofran ODT] 8 mg PO Q8HR PRN 12/25/19 04/08/21 Valsartan [Diovan] 160 mg PO BID 12/25/19 04/08/21 busPIRone HCl [Buspar] 10 mg PO TID 12/25/19 04/08/21 Simethicone [Gas-X] 250 mg PO DAILY PRN 02/24/20 04/08/21 Aspirin EC [Ecotrin Low Dose] 81 mg PO DAILY 03/20/20 04/08/21 polyethylene glycoL 3350 [Miralax] 17 gm PO DAILY PRN 03/20/20 04/08/21 amLODIPine [Norvasc] 5 mg PO DAILY 03/27/20 04/08/21 Docusate [Colace] 100 mg PO DAILY PRN 08/28/20 04/08/21 Pantoprazole Sodium [Protonix] 40 mg PO DAILY 08/28/20 04/08/21 HYDROcodone/APAP 10-325MG [[place] 1 tab PO QID 12/10/20 04/08/21 10-325] Nitroglycerin Sl Tabs [Nitrostat] 0.4 mg SL Q5M PRN 12/10/20 04/08/21 Meloxicam 15 mg PO DAILY 04/08/21 04/08/21 carvediloL [Coreg] 6.25 mg PO AC-BID 04/08/21 04/08/21 Previous Rx's Medication Instructions Recorded Apixaban [Eliquis] 5 mg PO BID #60 tab 12/12/20 cloNIDine HCL [Catapres] 0.1 mg PO TID #90 tab 12/13/20 Dicyclomine [Bentyl] 20 mg PO TID #90 tab 04/12/21 Levofloxacin [Levaquin] 250 mg PO DAILY #7 tab 04/12/21 Sennosides-Docusate Sodium 2 each PO DAILY tab 04/12/21 [Senokot-S] metroNIDAZOLE [Flagyl] 500 mg PO Q8HR #21 tab 04/12/21 Allergies Allergy/AdvReac Type Severity Reaction Status Date / Time sulfamethoxazole Allergy Itching Verified 04/08/21 15:01 [From Septra] trimethoprim [From Septra] Allergy Itching Verified 04/08/21 15:01 levofloxacin [From Levaquin] AdvReac Muscle Pain Verified 04/08/21 15:01 nitrofurantoin AdvReac Unknown Verified 04/08/21 15:01 [From Macrobid] Review of Systems ROS Statement: Those systems with pertinent positive or pertinent negative responses have been documented in the HPI. ROS Other: All systems not noted in ROS Statement are negative. Past Medical History Past Medical History: Atrial Fibrillation, Coronary Artery Disease (CAD), CVA/TIA, GERD/Reflux, Hyperlipidemia, Hypertension Additional Past Medical History / Comment(s): hx urinary retention, Nephrolithiasis, recurrent UTI, double amputation lower extremities, aka. small cyst on kidney, pt states no longer diabetic, right kidney removal. 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 Right kidney removal july 2020 Past Anesthesia/Blood Transfusion Reactions: No Reported Reaction Additional Past Anesthesia/Blood Transfusion Reaction / Comment(s): Pt received blood in 1978-no reaction reported. Past Psychological History: Anxiety Smoking Status: Current some day smoker Past Alcohol Use History: None Reported Past Drug Use History: None Reported - Past Family History Father Family Medical History: Cancer, Myocardial Infarction ([place]) Additional Family Medical History / Comment(s): Father had lung cancer-went into remission. He of a massive [place] in his 60's Mother Family Medical History: Cancer Additional Family Medical History / Comment(s): Mother of lung cancer at age 54 yrs. General Exam Limitations: physical limitation Course Vital Signs 05/29/21 18:46 Temperature 99.0 F Pulse Rate 84 Respiratory 18 Rate Blood Pressure 123/52 O2 Sat by Pulse 98 Oximetry Medical Decision Making - Lab Data Result diagrams: 05/29/21 19:15 05/29/21 19:15 Lab Results 05/29/21 05/29/21 05/29/21 Range/Units 19:15 19:15 19:16 WBC 8.7 (3.8-10.6) k/uL RBC 5.19 (3.80-5.40) m/uL Hgb 15.8 (11.4-16.0) gm/dL Hct 46.7 H (34.0-46.0) % MCV 90.0 (80.0-100.0) fL MCH 30.4 (25.0-35.0) pg MCHC 33.7 (31.0-37.0) g/dL RDW 12.7 (11.5-15.5) % Plt Count 273 (150-450) k/uL MPV 7.9 Neutrophils % 57 % Lymphocytes % 35 % Monocytes % 4 % Eosinophils % 1 % Basophils % 1 % Neutrophils # 5.0 (1.3-7.7) k/uL Lymphocytes # 3.1 (1.0-4.8) k/uL Monocytes # 0.4 (0-1.0) k/uL Eosinophils # 0.1 (0-0.7) k/uL Basophils # 0.1 (0-0.2) k/uL Sodium 137 (137-145) mmol/L Potassium 4.1 (3.5-5.1) mmol/L Chloride 109 H (98-107) mmol/L Carbon Dioxide 20 L (22-30) mmol/L Anion Gap 8 mmol/L BUN 16 (7-17) mg/dL Creatinine 0.56 (0.52-1.04) mg/dL Est GFR (CKD-EPI)AfAm >90 (>60 ml/min/1.73 sqM) Est GFR (CKD-EPI)NonAf >90 (>60 ml/min/1.73 sqM) Glucose 102 H (74-99) mg/dL Calcium 9.6 (8.4-10.2) mg/dL Total Bilirubin 0.6 (0.2-1.3) mg/dL AST 25 (14-36) U/L ALT 23 (4-34) U/L Alkaline Phosphatase 90 (38-126) U/L Total Protein 6.7 (6.3-8.2) g/dL Albumin 3.7 (3.5-5.0) g/dL Lipase 307 H (23-300) U/L Stool Occult Blood Negative (Negative) Disposition Clinical Impression: Diarrhea Disposition: HOME SELF-CARE Condition: Good Instructions (If sedation given, give patient instructions): Acute Diarrhea ( ED) Is patient prescribed a controlled substance at d/c from ED?: No Referrals: Arvin Aburto MD [Primary Care Provider] - 1-2 days
[2021-05-29 19:23] LABS: Basophils # (A) 0.1 k/uL (0-0.2); Basophils % (A) 1 %; Eosinophils # (A) 0.1 k/uL (0-0.7); Eosinophils % (A) 1 %; HCT 46.7 % (34.0-46.0); HGB 15.8 gm/dL (11.4-16.0); Lymphocytes # (A) 3.1 k/uL (1.0-4.8); Lymphocytes % (A) 35 %; MCH 30.4 pg (25.0-35.0); MCHC 33.7 g/dL (31.0-37.0); Mean Platelet Volume 7.9; Monocytes # (A) 0.4 k/uL (0-1.0); Monocytes % (A) 4 %; Neutrophils % (A) 57 %; Platelet Count 273 k/uL (150-450); RBC 5.19 m/uL (3.80-5.40); RDW 12.7 % (11.5-15.5); WBC 8.7 k/uL (3.8-10.6)
[2021-05-29 19:39] LABS: ALT 23 U/L (4-34); AST 25 U/L (14-36); African American GFR (CKD) >90 (>60 ml/min/1.73 sqM); Albumin 3.7 g/dL (3.5-5.0); Alkaline Phosphatase 90 U/L (38-126); Anion Gap 8 mmol/L; Blood Urea Nitrogen 16 mg/dL (7-17); Calcium 9.6 mg/dL (8.4-10.2); Carbon Dioxide 20 mmol/L (22-30); Chloride 109 mmol/L (98-107); Glucose 102 mg/dL (74-99); Lipase 307 U/L (23-300); Non-African American GFR(CKD) >90 (>60 ml/min/1.73 sqM); Potassium 4.1 mmol/L (3.5-5.1); Sodium 137 mmol/L (137-145); Total Bilirubin 0.6 mg/dL (0.2-1.3); Total Protein 6.7 g/dL (6.3-8.2)
--- NOTE | 2021-05-29 20:15 | CT ---
EXAMINATION TYPE: CT abdomen pelvis wo con DATE OF EXAM: 05/29/2021 COMPARISON: 04/08/2021 HISTORY: abd pain CT DLP: 1418.3 mGycm Examination of the solid and hollow viscera is limited given the lack of contrast. FINDINGS: LUNG BASES: No evidence for nodule. No evidence for infiltrate. LIVER/GB: The gallbladder is unremarkable. No space-occupying hepatic lesion. PANCREAS: No pancreatic mass identified. No inflammatory process seen. SPLEEN: No evidence for splenomegaly. No intrasplenic lesions seen. ADRENALS: No adrenal nodules identified. No evidence for thickening. KIDNEYS: There is absence of the right kidney. Nonobstructing 3 mm calculus lower pole left kidney. R enal parenchymal thinning left kidney lower pole. No hydronephrosis present. There is a urinary bladd er diverticulum seen posteriorly measuring 6.1 cm. BOWEL: Nonvisualization of the appendix. No evidence of bowel obstruction. No inflammatory process. Lymph nodes: No evidence for adenopathy greater than 1 cm. Abdominal aorta: Atheromatous changes seen. No evidence for aneurysm. Genital organs: The uterus and ovaries appear to be surgically absent. Other: No significant abnormality. IMPRESSION: 1. No acute intra-abdominal process.
[2021-05-29 20:56] VITALS: BP 149/89; PULSE 82
== END 2021-05-29 21:09 | disposition home or self-care (01) ==
LOC: EC 18:33
DX: R19.7 Diarrhea, unspecified (principal); I10 Essential (primary) hypertension; I25.10 Atherosclerotic heart disease of native coronary artery without angina pectoris; I48.91 Unspecified atrial fibrillation; K21.9 Gastro-esophageal reflux disease without esophagitis; E78.5 Hyperlipidemia, unspecified; F41.9 Anxiety disorder, unspecified; F17.200 Nicotine dependence, unspecified, uncomplicated; Z79.01 Long term (current) use of anticoagulants; Z79.1 Long term (current) use of non-steroidal anti-inflammatories (NSAID); Z79.82 Long term (current) use of aspirin; Z79.899 Other long term (current) drug therapy; Z88.1 Allergy status to other antibiotic agents; Z88.2 Allergy status to sulfonamides; Z90.49 Acquired absence of other specified parts of digestive tract; Z90.5 Acquired absence of kidney; Z86.73 Personal history of transient ischemic attack (TIA), and cerebral infarction without residual deficits; Z82.49 Family history of ischemic heart disease and other diseases of the circulatory system; Z80.1 Family history of malignant neoplasm of trachea, bronchus and lung
CPT/HCPCS: 36415; 80053; 83690; 85025; 82272; 87086; 74176; 99284; 96374; 96376; J1170

== ENCOUNTER → 2021-06-25 | Outpatient (CLI) | payer OTHER ==
--- NOTE | 2021-06-26 04:24 | MR ---
EXAMINATION TYPE: MR shoulder RT wo con DATE OF EXAM: 06/25/2021 COMPARISON: None HISTORY: Right shoulder pain x 3 mos, no trauma. Multiplanar multiecho imaging of the right shoulder without contrast. There is metal artifact at the proximal shaft of the humerus. There is hypertrophic spurring on the h umeral head. There is narrowing of the glenohumeral joint space. Exam limited slightly by metal artif act. There is evidence of shoulder joint effusion. The biceps tendon appears intact. The glenoid labr a appear intact. Subscapularis tendon is intact. There is thickening of the supraspinatus tendon. I do not see a full-thickness tear. There is some sp urring at the AC joint and minimal subacromial impingement. There is no retraction of the supraspinat us tendon. IMPRESSION: Moderate hypertrophic osteoarthritis. Shoulder joint effusion. There is thickening of the supraspinatus tendon consistent with tendinitis. No full-thickness tear se en. No retraction.
== END | disposition home or self-care (01) ==
LOC: RADMRIMAIN 16:21
PROVIDERS: ATTEND Orthopaedic Surgery
DX: M19.011 Primary osteoarthritis, right shoulder (principal); M25.411 Effusion, right shoulder

== ENCOUNTER → 2021-07-23 | Outpatient (CLI) | payer OTHER ==
--- NOTE | 2021-07-23 20:01 | BD ---
EXAMINATION TYPE: Axial Bone Density DATE OF EXAM: 07/23/2021 COMPARISON: NONE CLINICAL HISTORY: Postmenopausal screening Height: 67 Weight: 162.0 FRAX RISK QUESTIONS: Alcohol (3 or more units per day): no Family History (Parent hip fracture): no Glucocorticoids (More than 3mos): no (Ex: prednisone, prednisolone, methylprednisolone, dexamethasone, and hydrocortisone). History of Fracture in Adulthood: yes Secondary Osteoporosis: 1. Type 1 Diabetes: no 2. Hyperthyroidism: no 3. Menopause before 45: no 4. Malnutrition: no 5. Chronic liver disease: no Rheumatoid Arthritis: no Current Tobacco Use: no RISK FACTORS HISTORY OF: Surgery to Spine/Hip(right/left)/Wrist (right/left): no Family History of Osteoporosis: no Active: no Diet low in dairy products/other sources of calcium: yes Postmenopausal woman: yes MEDICATIONS: diabetic meds, blood thinners, blood pressure, cholesterol meds, xanax Additional History: EXAM MEASUREMENTS: Bone mineral densitometry was performed using the [employer] System. Bone mineral density as measured about the Lumbar spine is: ----- L1-L4(G/cm2): 1.169 T Score Values are as follows: ----- L2: 0.1 ----- L3: 0.2 ----- L4: -0.9 ----- L1-L4: -0.1 Bone mineral density : baseline Bone mineral density about the R Wrist (g/cm2): 0.663 T Score values are as follows: -----Dist. R+U: 1.1 -----Prox. R+U: -2.5 -----Radius total: -0.2 Bone mineral density : baseline IMPRESSION: Osteoporosis (T Score less than -2.5). There is increased fracture risk and therapy is usually indicated based on age. Re-Screen 1-2 years. NOTE: T-SCORE=SD OF THE YOUNG ADULT MEAN.
--- NOTE | 2021-07-30 11:37 | MM ---
Reason for exam: screening (asymptomatic). Last mammogram was performed 3 years and 7 months ago. History: Patient is postmenopausal. Family history of breast cancer in maternal aunt. Benign US RT VAD breast biopsy of the right breast, January 06, 2013. Physical Findings: A clinical breast exam by your physician is recommended on an annual basis and results should be correlated with mammographic findings. MG Screening Mammo W/o Cad Bilateral CC, MLO, and XCCL view(s) were taken. Prior study comparison: December 14, 2017, left breast MG work up mamm w CAD LT. December 03, 2017, bilateral MG screening mammo w CAD. Previous mammotome biopsy in the right breast. Stable prominent low left axillary node. No significant changes when compared with prior studies. ASSESSMENT: Benign, BI-RAD 2 RECOMMENDATION: Routine screening mammogram of the right breast in 1 year.
== END | disposition home or self-care (01) ==
LOC: RADMAMWWP 09:01
PROVIDERS: ATTEND Internal Medicine
DX: Z12.31 Encounter for screening mammogram for malignant neoplasm of breast (principal); M81.0 Age-related osteoporosis without current pathological fracture; Z80.3 Family history of malignant neoplasm of breast; Z78.0 Asymptomatic menopausal state
CPT/HCPCS: 77067; 77080

== ENCOUNTER 2021-07-26 16:06 | Inpatient (IN) | payer OTHER ==
[2021-07-26] MEDS ORDERED: SODIUM CHLORIDE 0.9% 1,000 ML IV STA (19:27)
[2021-07-26] MEDS ORDERED: SODIUM CHLORIDE 0.9% 500 ML 500 ML IV STA (19:27)
[2021-07-26] MEDS ORDERED: fentaNYL (PF) 50 MCG/ML 2 ML AMP IV STA (19:28)
--- NOTE | 2021-07-26 19:44 | ED ---
Abdominal Pain HPI - General Source: patient, RN notes reviewed Mode of arrival: EMS Limitations: no limitations - History of Present Illness MD Complaint: abdominal pain <Zachariah Faye - Last Filed: 07/26/21 20:51> <Cali Maki - Last Filed: 07/27/21 01:44> - General Chief Complaint: Abdominal Pain Stated Complaint: Lt side abd pain Time Seen by Provider: 07/26/21 19:11 - History of Present Illness Initial Comments: 66-year-old female with history of multiple medical problems including a right nephrectomy in the past bilateral [id number] amputations many years ago please see the complete list who presents today with complaints of sharp left- sided abdominal pain this started in the middle of last evening. He states she's also has some dark colored material when she urinates. She does have a history kidney stones. No fevers chills or sweats. She has had some diarrhea also. Patient does states she's also had a cough with some congestion She denies any blood per rectum or per vagina. The pain is intermittent. (Zachariah Faye) - Related Data Home Medications Medication Instructions Recorded Confirmed ALPRAZolam [Xanax] 0.5 mg PO BID 01/20/19 07/26/21 Atorvastatin Calcium [Lipitor] 80 mg PO HS 12/25/19 07/26/21 Baclofen [Lioresal] 10 mg PO TID 12/25/19 07/26/21 Ondansetron Odt [Zofran ODT] 8 mg PO Q8HR PRN 12/25/19 07/26/21 Valsartan [Diovan] 320 mg PO DAILY 12/25/19 07/26/21 busPIRone HCl [Buspar] 10 mg PO TID 12/25/19 07/26/21 Aspirin EC [Ecotrin Low Dose] 81 mg PO DAILY 03/20/20 07/26/21 amLODIPine [Norvasc] 5 mg PO BID 03/27/20 07/26/21 Pantoprazole Sodium [Protonix] 40 mg PO DAILY 08/28/20 07/26/21 HYDROcodone/APAP 10-325MG [Moose 1 tab PO QID 12/10/20 07/26/21 10-325] Meloxicam 15 mg PO DAILY 04/08/21 07/26/21 carvediloL [Coreg] 6.25 mg PO BID-W/MEALS 04/08/21 07/26/21 Doxycycline Hyclate 100 mg PO BID 07/26/21 07/26/21 Ipratropium-Albuterol Nebulize 3 ml INHALATION RT-QID PRN 07/26/21 07/26/21 [Duoneb 0.5 mg-3 mg/3 ml Soln] Melatonin 10 mg PO HS 07/26/21 07/26/21 bisacodyL [Dulcolax] 10 mg PO DAILY PRN 07/26/21 07/26/21 cloNIDine HCL [Catapres] 0.05 mg PO TID 07/26/21 07/26/21 hydroCHLOROthiazide [Hydrodiuril] 12.5 mg PO DAILY 07/26/21 07/26/21 metFORMIN HCL [Glucophage] 500 mg PO BID-W/MEALS 07/26/21 07/26/21 Previous Rx's Medication Instructions Recorded Apixaban [Eliquis] 5 mg PO BID #60 tab 12/12/20 Allergies Allergy/AdvReac Type Severity Reaction Status Date / Time sulfamethoxazole Allergy Itching Verified 07/26/21 23:17 [From Septra] trimethoprim [From Septra] Allergy Itching Verified 07/26/21 23:17 levofloxacin [From Levaquin] AdvReac Muscle Pain Verified 07/26/21 23:17 nitrofurantoin AdvReac Unknown Verified 07/26/21 23:17 [From Macrobid] Review of Systems ROS Other: All systems not noted in ROS Statement are negative. <Zachariah Faye - Last Filed: 07/26/21 20:51> ROS Other: All systems not noted in ROS Statement are negative. <Cali Maki - Last Filed: 07/27/21 01:44> ROS Statement: Those systems with pertinent positive or pertinent negative responses have been documented in the HPI. Past Medical History Past Medical History: Atrial Fibrillation, Coronary Artery Disease (CAD), CVA/TIA, GERD/Reflux, Hyperlipidemia, Hypertension Additional Past Medical History / Comment(s): hx urinary retention, Nephrolithiasis, recurrent UTI, double amputation lower extremities, aka. small cyst on kidney, pt states no longer diabetic, right kidney removal. 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 Right kidney removal july 2020 Past Anesthesia/Blood Transfusion Reactions: No Reported Reaction Additional Past Anesthesia/Blood Transfusion Reaction / Comment(s): Pt received blood in 1978-no reaction reported. Past Psychological History: Anxiety Smoking Status: Current some day smoker Past Alcohol Use History: None Reported Past Drug Use History: None Reported - Past Family History Father Family Medical History: Cancer, Myocardial Infarction (SD) Additional Family Medical History / Comment(s): Father had lung cancer-went into remission. He of a massive SD in his 60's Mother Family Medical History: Cancer Additional Family Medical History / Comment(s): Mother of lung cancer at age 54 yrs. <Zachariah Faye - Last Filed: 07/26/21 20:51> General Exam Limitations: no limitations General appearance: alert, anxious Head exam: Present: atraumatic, normocephalic, normal inspection Eye exam: Present: normal appearance, PERRL, EOMI. Absent: scleral icterus, conjunctival injection, periorbital swelling ENT exam: Present: normal exam, mucous membranes moist Neck exam: Present: normal inspection, full ROM. Absent: tenderness, meningismus, lymphadenopathy Respiratory exam: Present: normal lung sounds bilaterally. Absent: respiratory distress, wheezes, rales, rhonchi, stridor Cardiovascular Exam: Present: regular rate, normal rhythm, normal heart sounds. Absent: systolic murmur, diastolic murmur, rubs, gallop, clicks GI/Abdominal exam: Present: soft, tenderness (Left side and suprapubic tenderness palpation no overt guarding rebound), normal bowel sounds. Absent: distended, guarding, rebound, rigid Rectal exam: Present: deferred Extremities exam: Present: full ROM, normal capillary refill, other (Above the knee" as as described). Absent: tenderness, pedal edema, joint swelling, calf tenderness Back exam: Present: normal inspection Neurological exam: Present: alert, oriented X3, CN II-XII intact Psychiatric exam: Present: normal affect, normal mood Skin exam: Present: warm, dry, intact, normal color. Absent: rash <Zachariah Faye - Last Filed: 07/26/21 20:51> - General Exam Comments Initial Comments: This is a well-developed female demonstrating [id number] amputations bilaterally she is awake alert oriented 3 (Zachariah Faye) Course <Zachariah Faye - Last Filed: 07/26/21 20:51> Vital Signs 07/26/21 07/26/21 07/26/21 17:13 20:33 21:31 Temperature 98.4 F Pulse Rate 79 78 79 Respiratory 16 18 18 Rate Blood Pressure 147/88 180/98 122/69 O2 Sat by Pulse 97 95 97 Oximetry 07/26/21 07/26/21 07/27/21 22:52 23:31 00:09 Temperature Pulse Rate 71 74 72 Respiratory 18 18 18 Rate Blood Pressure 154/85 140/91 139/68 O2 Sat by Pulse 96 95 95 Oximetry - Reevaluation(s) Reevaluation #1: 07/26/21 20:52 Patient's care will be endorsed to Dr. Maki at our shift change (Zachariah Faye) Medical Decision Making - Lab Data Result diagrams: 07/26/21 19:42 07/26/21 19:42 <Zachariah Faye - Last Filed: 07/26/21 20:51> - Lab Data Result diagrams: 07/26/21 19:42 07/26/21 19:42 <Cali Maki - Last Filed: 07/27/21 01:44> - Lab Data Lab Results 07/26/21 07/26/21 07/26/21 Range/Units 19:42 19:42 19:42 WBC 12.1 H (3.8-10.6) k/uL RBC 5.17 (3.80-5.40) m/uL Hgb 16.0 (11.4-16.0) gm/dL Hct 47.2 H (34.0-46.0) % MCV 91.2 (80.0-100.0) fL MCH 30.9 (25.0-35.0) pg MCHC 33.9 (31.0-37.0) g/dL RDW 13.1 (11.5-15.5) % Plt Count 357 (150-450) k/uL MPV 8.7 Neutrophils % 57 % Lymphocytes % 35 % Monocytes % 5 % Eosinophils % 1 % Basophils % 1 % Neutrophils # 6.9 (1.3-7.7) k/uL Lymphocytes # 4.2 (1.0-4.8) k/uL Monocytes # 0.6 (0-1.0) k/uL Eosinophils # 0.1 (0-0.7) k/uL Basophils # 0.1 (0-0.2) k/uL PT (9.0-12.0) sec INR (<1.2) APTT (22.0-30.0) sec Sodium 136 L (137-145) mmol/L Potassium 5.0 (3.5-5.1) mmol/L Chloride 109 H (98-107) mmol/L Carbon Dioxide 18 L (22-30) mmol/L Anion Gap 9 mmol/L BUN 18 H (7-17) mg/dL Creatinine 0.55 (0.52-1.04) mg/dL Est GFR (CKD-EPI)AfAm >90 (>60 ml/min/1.73 sqM) Est GFR (CKD-EPI)NonAf >90 (>60 ml/min/1.73 sqM) Glucose 93 (74-99) mg/dL Plasma Lactic Acid Joshua (0.7-2.0) mmol/L Calcium 9.6 (8.4-10.2) mg/dL Total Bilirubin 0.8 (0.2-1.3) mg/dL AST 40 H (14-36) U/L ALT 26 (4-34) U/L Alkaline Phosphatase 120 (38-126) U/L Troponin I (0.000-0.034) ng/mL Total Protein 7.0 (6.3-8.2) g/dL Albumin 3.8 (3.5-5.0) g/dL Amylase 58 (30-110) U/L Lipase 370 H (23-300) U/L Urine Color Yellow Urine Appearance Clear (Clear) Urine pH 5.0 (5.0-8.0) Ur Specific [place] 1.016 (1.001-1.035) Urine Protein Negative (Negative) Urine Glucose (UA) Negative (Negative) Urine Ketones Negative (Negative) Urine Blood Negative (Negative) Urine Nitrite Negative (Negative) Urine Bilirubin Negative (Negative) Urine Urobilinogen <2.0 (<2.0) mg/dL Ur Leukocyte Esterase Negative (Negative) 07/26/21 07/26/21 07/26/21 Range/Units 19:42 19:42 19:42 WBC (3.8-10.6) k/uL RBC (3.80-5.40) m/uL Hgb (11.4-16.0) gm/dL Hct (34.0-46.0) % MCV (80.0-100.0) fL MCH (25.0-35.0) pg MCHC (31.0-37.0) g/dL RDW (11.5-15.5) % Plt Count (150-450) k/uL MPV Neutrophils % % Lymphocytes % % Monocytes % % Eosinophils % % Basophils % % Neutrophils # (1.3-7.7) k/uL Lymphocytes # (1.0-4.8) k/uL Monocytes # (0-1.0) k/uL Eosinophils # (0-0.7) k/uL Basophils # (0-0.2) k/uL PT 11.2 (9.0-12.0) sec INR 1.1 (<1.2) APTT 26.5 (22.0-30.0) sec Sodium (137-145) mmol/L Potassium (3.5-5.1) mmol/L Chloride (98-107) mmol/L Carbon Dioxide (22-30) mmol/L Anion Gap mmol/L BUN (7-17) mg/dL Creatinine (0.52-1.04) mg/dL Est GFR (CKD-EPI)AfAm (>60 ml/min/1.73 sqM) Est GFR (CKD-EPI)NonAf (>60 ml/min/1.73 sqM) Glucose (74-99) mg/dL Plasma Lactic Acid Joshua 1.0 (0.7-2.0) mmol/L Calcium (8.4-10.2) mg/dL Total Bilirubin (0.2-1.3) mg/dL AST (14-36) U/L ALT (4-34) U/L Alkaline Phosphatase (38-126) U/L Troponin I <0.012 (0.000-0.034) ng/mL Total Protein (6.3-8.2) g/dL Albumin (3.5-5.0) g/dL Amylase (30-110) U/L Lipase (23-300) U/L Urine Color Urine Appearance (Clear) Urine pH (5.0-8.0) Ur Specific [place] (1.001-1.035) Urine Protein (Negative) Urine Glucose (UA) (Negative) Urine Ketones (Negative) Urine Blood (Negative) Urine Nitrite (Negative) Urine Bilirubin (Negative) Urine Urobilinogen (<2.0) mg/dL Ur Leukocyte Esterase (Negative) Disposition <Zachariah Faye - Last Filed: 07/26/21 20:51> <Cali Maki - Last Filed: 07/27/21 01:44> Clinical Impression: Abdominal pain Disposition: ADMITTED IP TO THIS HOSP Condition: Fair Instructions (If sedation given, give patient instructions): Abdominal Pain (ED) Referrals: Daryl Aburto MD [Primary Care Provider] - 1-2 days
[2021-07-26 19:59] LABS: Basophils # (A) 0.1 k/uL (0-0.2); Basophils % (A) 1 %; Eosinophils # (A) 0.1 k/uL (0-0.7); Eosinophils % (A) 1 %; HCT 47.2 % (34.0-46.0); Lymphocytes # (A) 4.2 k/uL (1.0-4.8); Lymphocytes % (A) 35 %; MCH 30.9 pg (25.0-35.0); MCHC 33.9 g/dL (31.0-37.0); MCV 91.2 fL (80.0-100.0); Mean Platelet Volume 8.7; Monocytes # (A) 0.6 k/uL (0-1.0); Monocytes % (A) 5 %; Neutrophils # (A) 6.9 k/uL (1.3-7.7); Neutrophils % (A) 57 %; Platelet Count 357 k/uL (150-450); RBC 5.17 m/uL (3.80-5.40); RDW 13.1 % (11.5-15.5); WBC 12.1 k/uL (3.8-10.6)
[2021-07-26 20:12] LABS: INR 1.1 (<1.2); Partial Thromboplastin Time 26.5 sec (22.0-30.0); Prothrombin Time 11.2 sec (9.0-12.0)
[2021-07-26 20:13] LABS: ALT 26 U/L (4-34); AST 40 U/L (14-36); African American GFR (CKD) >90 (>60 ml/min/1.73 sqM); Albumin 3.8 g/dL (3.5-5.0); Alkaline Phosphatase 120 U/L (38-126); Amylase 58 U/L (30-110); Anion Gap 9 mmol/L; Blood Urea Nitrogen 18 mg/dL (7-17); Calcium 9.6 mg/dL (8.4-10.2); Carbon Dioxide 18 mmol/L (22-30); Chloride 109 mmol/L (98-107); Glucose 93 mg/dL (74-99); Lipase 370 U/L (23-300); Non-African American GFR(CKD) >90 (>60 ml/min/1.73 sqM); Sodium 136 mmol/L (137-145); Total Bilirubin 0.8 mg/dL (0.2-1.3)
[2021-07-26] MEDS ORDERED: ONDANSETRON 4 MG/2 ML VIAL IVP STA (20:36)
[2021-07-26 21:00] LABS: Appearance,Urine Clear (Clear); Bilirubin,Urine Negative (Negative); Blood,Urine Negative (Negative); Color,Urine Yellow; Glucose,Urine (UA) Negative (Negative); Ketones,Urine Negative (Negative); Leukocyte Esterase,Urine Negative (Negative); Nitrite,Urine Negative (Negative); Protein,Urine Negative (Negative); Specific Gravity,Urine 1.016 (1.001-1.035); Urobilinogen,Urine <2.0 mg/dL (<2.0)
[2021-07-26] MEDS ORDERED: KETOROLAC 15 MG/ML 1 ML VIAL IVP STA (21:00)
--- NOTE | 2021-07-26 21:14 | XR ---
EXAMINATION TYPE: XR chest 2V DATE OF EXAM: 07/26/2021 COMPARISON: 01/05/2021 HISTORY: Abdominal pain. Chest pain TECHNIQUE: 2 views FINDINGS: Heart appears enlarged. There is no heart failure. There are no hilar masses. Lungs are kim ar of consolidation. Bony thorax is intact. There is slight blunting of the costophrenic angles. IMPRESSION: Small pleural effusions without change. No heart failure.
--- NOTE | 2021-07-26 21:16 | XR ---
EXAMINATION TYPE: XR KUB DATE OF EXAM: 07/26/2021 COMPARISON: 721 HISTORY: Abdominal pain TECHNIQUE: 2 views supine FINDINGS: There is no sign of intestinal obstruction or pneumoperitoneum. Fecal pattern is normal. Th ere clips probably from cholecystectomy. There is no evidence of a mass. IMPRESSION: Nonacute abdomen. No free air. No significant change.
[2021-07-26] MEDS ORDERED: MORPHINE SULFATE 4 MG/ML SYRINGE IV STA (21:49)
--- NOTE | 2021-07-26 21:51 | CT ---
EXAMINATION TYPE: CT abdomen pelvis w con DATE OF EXAM: 07/26/2021 COMPARISON: 05/29/2021 HISTORY: abd pain and down left leg CT DLP: 2055.6 mGycm Automated exposure control for dose reduction was used. CONTRAST: Performed with IV Contrast, patient injected with 100 mL of Isovue 300. Images obtained from the diaphragm to the floor the pelvis with IV contrast. The lung bases are clear of infiltrate. There is no pleural effusion. Heart is top normal in size. Th ere is no pericardial effusion. Liver spleen stomach pancreas appear intact. The bile ducts are nondilated. There are clips from chol ecystectomy. There is no adrenal mass. There are clips from right nephrectomy. Left kidney shows satisfactory cont rast opacification. There is no hydronephrosis. There is cortical thinning lower pole left kidney con sistent with atrophy or scarring. There is no retroperitoneal adenopathy. Ureters are not dilated. Th ere is no ascites. There is no free air. There is no mesenteric edema. Bladder distends smoothly. The re is no sign of a pelvic mass. There is no inguinal hernia. There is no evidence of bowel obstruction. Appendix not seen. No sign of thickened appendix. There is some deformity of the left proximal femur consistent with hip dysplasia. There is thoracolumbar dext roscoliosis. There is lateral subluxation of the left femoral head. IMPRESSION: No acute abnormality of the abdomen pelvis. No change compared to old exam.
[2021-07-26] MEDS ORDERED: HYDROmorphone 0.5 MG/0.5 ML SYRINGE IVP STA (23:48)
[2021-07-27] MEDS ORDERED: ACETAMINOPHEN TAB 325 MG TAB PO PRN (01:44)
[2021-07-27] MEDS ORDERED: NALOXONE 0.4 MG/ML 1 ML VIAL IV PRN (01:44)
[2021-07-27] MEDS ORDERED: MORPHINE SULFATE 4 MG/ML SYRINGE IV PRN (01:44)
[2021-07-27] MEDS: SODIUM CHLORIDE 0.9% 1,000 ML IV SCH (02:22)
[2021-07-27] MEDS: ONDANSETRON 4 MG/2 ML VIAL IVP PRN ×3 (03:09→20:24)
[2021-07-27] MEDS: HYDROmorphone 0.5 MG/0.5 ML SYRINGE IVP PRN ×5 (06:09→20:23)
[2021-07-27] MEDS: FAMOTIDINE 20 MG TAB PO SCH ×2 (08:09→20:21)
[2021-07-27] MEDS ORDERED: ONDANSETRON ODT 8 MG TAB.RAPDIS PO PRN (13:45)
[2021-07-27] MEDS ORDERED: bisacodyL 5 MG TABLET.DR PO PRN (13:45)
[2021-07-27] MEDS ORDERED: DOXYCYCLINE 100 MG CAP PO SCH (14:00)
[2021-07-27] MEDS: PANTOPRAZOLE 40 MG TABLET PO SCH (14:29)
[2021-07-27] MEDS: ASPIRIN 81 MG PO SCH (14:49)
[2021-07-27] MEDS: APIXABAN 5 MG TAB PO SCH ×2 (14:49→20:33)
[2021-07-27] MEDS: hydroCHLOROthiazide 12.5 MG CAP PO SCH (14:49)
[2021-07-27] MEDS: VALSARTAN 160 MG TAB PO SCH (14:49)
[2021-07-27] MEDS: ALPRAZolam 0.5 MG TAB PO SCH ×2 (14:49→20:33)
[2021-07-27] MEDS: amLODIPine 5 MG TAB PO SCH ×2 (14:49→20:33)
[2021-07-27] MEDS: MELOXICAM 7.5 MG TAB PO SCH (14:52)
[2021-07-27] MEDS: busPIRone HCl 10 MG TAB PO SCH ×2 (16:28→20:21)
[2021-07-27] MEDS: cloNIDine HCL 0.1 MG TAB PO SCH ×2 (16:28→20:21)
[2021-07-27] MEDS: BACLOFEN 10 MG TAB PO SCH ×2 (16:33→20:21)
--- NOTE | 2021-07-27 16:35 | XR ---
EXAMINATION TYPE: XR abdomen 1V DATE OF EXAM: 07/27/2021 2:57 PM CLINICAL HISTORY: Abdominal pain and vomiting TECHNIQUE: Three supine KUB image of the abdomen is obtained. COMPARISON: CT abdomen/pelvis 07/26/2021 FINDINGS: Limited evaluation for pneumoperitoneum with supine technique. Nonobstructive bowel gas pattern. Multiple surgical clips overlie the right abdomen relating to prior right-sided nephrectomy and cholecystectomy. No definite abnormal abdominal calcifications. Similar-appearing S-shaped scoliotic curvature of the thoracolumbar spine. Contrast material is present within the urinary bladder from prior CT examination. IMPRESSION: Overall nonobstructive bowel gas pattern.
--- NOTE | 2021-07-27 17:17 | P.HPIM ---
History of Present Illness H&P Date: 07/27/21 This is a 65-year-old female patient of Dr. Aburto and Dr. Prescott with past medical history of coronary artery disease, hypertension, paroxysmal atrial fibrillation on Coumadin, hyper lipidemia, diabetes mellitus type 2, right nephrectomy and bilateral [id number] amputation, chronic pain syndrome under the care of Dr. Ratliff for pain management. She was last admitted in . for UTI and acute diverticulitis comes in this time with an acute excruciating pain 10 out of 10 involving the left lower quadrant associated with diarrhea. Patient denies any fever or chills. She had multiple episode of nausea and vomiting since last night. Pain is increased patient's anxiety. CT abdomen and pelvis was obtained in the ER with IV contrast that suggestion of bowel obstruction appendix was seen some deformity in the left proximal femur consistent with hip dysplasia with lateral subluxation luxation of left femoral head. Evidence of right nephrectomy with left kidney showing satisfactory contrast opacification on hydro-nephrosis cortical thinning left kidney consistent with atrophy. Ureters were not dilated no free fluid and was entered edema. No inguinal hernia no sign of pelvic mass. Abdominal x-ray was negative for bowel obstruction. Patient was admitted for possible acute diverticulitis. Patient received multiple pain medication including fentanyl and Dilaudid overnight nothing that was in patient's nausea. Vitals are reviewed patient's afebrile pulse 83 respiratory rate 17 and blood pressure 152/75 on room air 96% stop labs reviewed patient had WBC of 12.1 and a normal sodium 136 potassium 5 BUN 18 creatinine 0.5 troponin negative lipase normal UA was negative: COVID negative. Patient initiated on Zosyn at 3.375 every 8 hours. ESR, CRP, stool studies and C. diff ordered since patient has diarrhea. ROS Constitutional: Denies chills, Denies fever, Denies lethargy, Denies malaise, Denies poor appetite, Denies weakness, Denies weight loss Eyes: denies decreased vision, denies diplopia, denies discharge, denies pain Ears: deny: decreased hearing Ears, nose, mouth and throat: Denies dental pain, Denies headache, Denies nasal discharge, Denies nose pain Cardiovascular: Denies chest pain, Denies decreased exercise tolerance, Denies edema, Denies high blood pressure, Denies irregular heart beat, Denies pa lpitations, Denies paroxysmal nocturnal dyspnea, Denies rapid heart beat, Denies shortness of breath Respiratory: Denies congestion, Denies cough, Denies cough with sputum, Denies dyspnea, Denies home oxygen, Denies wheezing Gastrointestinal:endorses abdominal pain and diarrhea, Denies coffee ground emesis, Denies early satiety, Denies excessive gas, Denies heartburn, Denies hematemesis, Denies hematochezia, Denies loss of appetite,endorses nausea and vomiting Genitourinary: Denies dysuria, Denies flank pain, Denies kidney stones, Denies menorrhagia, Denies urgency, Denies urinary frequency Musculoskeletal: Denies gait dysfunction, Denies limitation of motion, Denies morning stiffness, Denies muscle cramps Integumentary: Denies rash, Denies wounds, Denies brittle nails, Denies change in hair/nails, Denies darkening of skin Neurological: Denies balance difficulties, Denies change in speech, Denies double vision, Denies gait dysfunction, Denies loss of vision, Denies motor disturbance, Denies numbness, Denies paralysis, Denies paresthesias, Denies seizures Psychiatric: Denies anxiety, Denies depression Endocrine: Denies excessive sweating, Denies excessive thirst, Denies high blood sugars, Denies palpitations Hematologic/Lymphatic: Denies easy bruising, Denies lymphadenopathy SOCIAL HISTORY Patient is a smoker one third pack per day since she was 18 years of age. She denies any alcohol use, marijuana use or illicit drug use. She is currently from her . FAMILY HISTORY Mother in her 50s from lung cancer. Father in his 70s from a stroke. Patient has 3 brothers and 3 sisters living with no major medical problems. She has 3 children with no major medical problems.. PHYSICAL EXAMINATION Gen: This is this is a 65-year-old female patient. She is resting in bed and appears to be comfortable and in no acute distress. HEENT: Head is atraumatic, normocephalic. Pupils equal, round. Sclerae is anicteric. NECK: Supple. No JVD. No lymphadenopathy. No thyromegaly. LUNGS: Clear to auscultation. No wheezes or rhonchi. No intercostal retractions. HEART: Regular rate and rhythm. Systolic ejection murmur at the left sternal border. ABDOMEN: Soft. Bowel sounds are present. No masses. tenderness involving the left lower quad EXTREMITIES: Bilateral [id number] amputations. NEUROLOGICAL: Patient is awake, alert and oriented x3. Cranial nerves 2 through 12 are grossly inta Assessment and plan Left lower abdominal pain, with tenderness in the left lower sigmoid region -likely C. diff colitis versus diverticulitis. CT abdomen negative for any acute infection in the limbs and in no ordered. Surgery consult for further evaluation. Zosyn initiated at 3.375 every 8 hours. Pain controlled with Dilaudid 0.5 every 3 hours. Continue [place] 10 4 times a day 4 mm left nephrolithiasis, nonobstructive - No sign of hydronephrosis. -UA negative for infection History of coronary artery disease. - On Lipitor, Norvasc Catapres Coreg no changes made Hypertension. -On Hydrea Diuril, which is on hold secondary diarrhea, continue on Catapres, and Norvasc with parameters Paroxysmal atrial fibrillation. -On eliquis and aspirin Hyperlipidemia. -On Lipitor Diabetes mellitus type 2. -Not on any agents prior to admission, HbA1c is 6.5. -Hold metformin Right nephrectomy -Stable Bilateral [id number] amputation secondary to hip dysplasia s. Chronic pain management under the care of Dr. Ratliff. GI prophylaxis DVT prophylaxis Past Medical History Past Medical History: Atrial Fibrillation, Coronary Artery Disease (CAD), CVA/TIA, GERD/Reflux, Hyperlipidemia, Hypertension Additional Past Medical History / Comment(s): hx urinary retention, Nephrolithiasis, recurrent UTI, double amputation lower extremities, aka. small cyst on kidney, pt states no longer diabetic, right kidney removal. 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 Right kidney removal july 2020 Past Anesthesia/Blood Transfusion Reactions: No Reported Reaction Additional Past Anesthesia/Blood Transfusion Reaction / Comment(s): Pt received blood in 1978-no reaction reported. Past Psychological History: Anxiety Additional Psychological History / Comment(s): She is independent. She in a bilateral AKA and gets around in a power wheelchair. She has a hospital bed. She no longer drives but takes the bus. Smoking Status: Current some day smoker Past Alcohol Use History: None Reported Additional Past Alcohol Use History / Comment(s): Pt states she started smoking at age 18 yrs and the amount she smokes varies.Smoke a pack in two days Past Drug Use History: None Reported - Past Family History Father Family Medical History: Cancer, Myocardial Infarction ([place]) Additional Family Medical History / Comment(s): Father had lung cancer-went into remission. He of a massive [place] in his 60's Mother Family Medical History: Cancer Additional Family Medical History / Comment(s): Mother of lung cancer at age 54 yrs. Medications and Allergies Home Medications Medication Instructions Recorded Confirmed Type ALPRAZolam [Xanax] 0.5 mg PO BID 01/20/19 07/26/21 History Atorvastatin Calcium [Lipitor] 80 mg PO HS 12/25/19 07/26/21 History Baclofen [Lioresal] 10 mg PO TID 12/25/19 07/26/21 History Ondansetron Odt [Zofran ODT] 8 mg PO Q8HR PRN 12/25/19 07/26/21 History Valsartan [Diovan] 320 mg PO DAILY 12/25/19 07/26/21 History busPIRone HCl [Buspar] 10 mg PO TID 12/25/19 07/26/21 History Aspirin EC [Ecotrin Low Dose] 81 mg PO DAILY 03/20/20 07/26/21 History amLODIPine [Norvasc] 5 mg PO BID 03/27/20 07/26/21 History Pantoprazole Sodium [Protonix] 40 mg PO DAILY 08/28/20 07/26/21 History HYDROcodone/APAP 10-325MG [[place] 1 tab PO QID 12/10/20 07/26/21 History 10-325] Apixaban [Eliquis] 5 mg PO BID #60 tab 12/12/20 07/26/21 Rx Meloxicam 15 mg PO DAILY 04/08/21 07/26/21 History carvediloL [Coreg] 6.25 mg PO BID-W/MEALS 04/08/21 07/26/21 History Doxycycline Hyclate 100 mg PO BID 07/26/21 07/26/21 History Ipratropium-Albuterol Nebulize 3 ml INHALATION RT-QID PRN 07/26/21 07/26/21 History [Duoneb 0.5 mg-3 mg/3 ml Soln] Melatonin 10 mg PO HS 07/26/21 07/26/21 History bisacodyL [Dulcolax] 10 mg PO DAILY PRN 07/26/21 07/26/21 History cloNIDine HCL [Catapres] 0.05 mg PO TID 07/26/21 07/26/21 History hydroCHLOROthiazide [Hydrodiuril] 12.5 mg PO DAILY 07/26/21 07/26/21 History metFORMIN HCL [Glucophage] 500 mg PO BID-W/MEALS 07/26/21 07/26/21 History Allergies Allergy/AdvReac Type Severity Reaction Status Date / Time sulfamethoxazole Allergy Itching Verified 07/26/21 23:17 [From Septra] trimethoprim [From Septra] Allergy Itching Verified 07/26/21 23:17 levofloxacin [From Levaquin] AdvReac Muscle Pain Verified 07/26/21 23:17 nitrofurantoin AdvReac Unknown Verified 07/26/21 23:17 [From Macrobid] Physical Exam Vitals: Vital Signs Temp Pulse Pulse Pulse Resp BP BP 07/27/21 14:35 98.7 F 83 17 07/27/21 08:00 68 17 07/27/21 07:10 98.5 F 68 17 07/27/21 05:00 16 07/27/21 02:16 85 18 142/75 07/27/21 02:10 98.1 F 67 18 151/74 07/27/21 00:09 72 18 139/68 07/26/21 23:31 74 18 140/91 07/26/21 22:52 71 18 154/85 07/26/21 21:31 79 18 122/69 07/26/21 20:33 78 18 180/98 07/26/21 17:13 98.4 F 79 16 147/88 BP Pulse Ox 07/27/21 14:35 152/75 96 07/27/21 08:00 07/27/21 07:10 146/84 95 07/27/21 05:00 07/27/21 02:16 95 07/27/21 02:10 98 07/27/21 00:09 95 07/26/21 23:31 95 07/26/21 22:52 96 07/26/21 21:31 97 07/26/21 20:33 95 07/26/21 17:13 97 Intake and Output 07/27/21 07/27/21 07/27/21 06:59 14:59 22:59 Intake Total 300 Output Total 300 Balance -300 300 Intake: Oral 300 Output: Urine 300 Other: Voiding Method Bedpan Bedpan # Voids 1 Weight 72.575 kg Results CBC & Chem 7: 07/26/21 19:42 07/26/21 19:42 Labs: Abnormal Lab Results - Last 24 Hours (Table) 07/26/21 07/26/21 Range/Units 19:42 19:42 WBC 12.1 H (3.8-10.6) k/uL Hct 47.2 H (34.0-46.0) % Sodium 136 L (137-145) mmol/L Chloride 109 H (98-107) mmol/L Carbon Dioxide 18 L (22-30) mmol/L BUN 18 H (7-17) mg/dL AST 40 H (14-36) U/L Lipase 370 H (23-300) U/L Thrombosis Risk Factor Assmnt - Choose All That Apply Any of the Below Risk Factors Present?: Yes Each Factor Represents 1 point: Obesity (BMI >25) Other Risk Factors: Yes Each Risk Factor Represents 2 Points: Age 61-74 years Other congenital or acquired thrombophilia - If yes, enter type in comment: No Thrombosis Risk Factor Assessment Total Risk Factor Score: 3 Thrombosis Risk Factor Assessment Level: Moderate Risk
[2021-07-27] MEDS ORDERED: metFORMIN 500 MG TAB PO SCH (17:30)
[2021-07-27] MEDS: HYDROcodone/APAP 10-325MG 1 EACH TAB PO SCH ×2 (17:49→23:10)
[2021-07-27] MEDS: PIPERACILLIN-TAZOBACTAM 3.375 GM in SODIUM CHLORIDE 0.9% 100 ML IVPB SCH (17:49)
[2021-07-27] MEDS ORDERED: PEG 3350-NA SULF,BICARB,CL/KCL 4,000 ML BOTTLE PO ONE (19:17)
[2021-07-27] MEDS: carvediloL 6.25 MG TAB PO SCH (20:20)
[2021-07-27] MEDS: MELATONIN 5 MG TABLET PO SCH (20:22)
[2021-07-27] MEDS: ATORVASTATIN 80 MG TAB PO SCH (20:33)
[2021-07-28] MEDS: HYDROmorphone 0.5 MG/0.5 ML SYRINGE IVP PRN ×2 (00:06→05:07)
[2021-07-28] MEDS: PIPERACILLIN-TAZOBACTAM 3.375 GM in SODIUM CHLORIDE 0.9% 100 ML IVPB SCH ×3 (00:07→18:23)
[2021-07-28] MEDS: SODIUM CHLORIDE 0.9% 1,000 ML IV SCH (00:07)
[2021-07-28] MEDS: ONDANSETRON 4 MG/2 ML VIAL IVP PRN ×2 (05:07→17:51)
[2021-07-28] MEDS: APIXABAN 5 MG TAB PO SCH ×2 (08:10→20:42)
[2021-07-28] MEDS: FAMOTIDINE 20 MG TAB PO SCH ×2 (08:10→20:42)
[2021-07-28] MEDS: HYDROcodone/APAP 10-325MG 1 EACH TAB PO SCH ×4 (08:10→20:43)
[2021-07-28] MEDS: BACLOFEN 10 MG TAB PO SCH ×3 (08:11→20:42)
[2021-07-28] MEDS: PANTOPRAZOLE 40 MG TABLET PO SCH (08:11)
[2021-07-28] MEDS: carvediloL 6.25 MG TAB PO SCH ×2 (08:12→17:17)
[2021-07-28] MEDS: busPIRone HCl 10 MG TAB PO SCH ×3 (08:12→20:42)
[2021-07-28] MEDS: cloNIDine HCL 0.1 MG TAB PO SCH ×3 (08:12→20:41)
[2021-07-28] MEDS: ALPRAZolam 0.5 MG TAB PO SCH ×2 (08:41→17:23)
--- NOTE | 2021-07-28 10:25 | P.GSCN ---
History of Present Illness Consult date: 07/28/21 Reason for Consult: Abdominal pain History of present illness: Patient is a 66-year-old female who presented to the ER with abdominal pain. She has had multiple episodes of pain along with diarrhea over the last year or so. Multiple CTs have been performed showing no evidence of obstruction or acute diverticulitis. She does have a history of a right nephrectomy in the past. Patient complains of some diarrhea. No fevers, chills, nausea or vomiting. She did undergo an EGD and colonoscopy by Dr. Brock in December 2019. The biopsies from the stomach, duodenum and colon were all normal. The patient has not had blood in the stool or dark tarry stool. She says she occasionally notices blood in the toilet or her "pullup ". Review of Systems All systems: negative Past Medical History Past Medical History: Atrial Fibrillation, Coronary Artery Disease (CAD), CVA/TIA, GERD/Reflux, Hyperlipidemia, Hypertension Additional Past Medical History / Comment(s): hx urinary retention, Nephrolithiasis, recurrent UTI, double amputation lower extremities, aka. small cyst on kidney, pt states no longer diabetic, right kidney removal. 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 Right kidney removal july 2020 Past Anesthesia/Blood Transfusion Reactions: No Reported Reaction Additional Past Anesthesia/Blood Transfusion Reaction / Comm: Pt received blood in 1978-no reaction reported. Past Psychological History: Anxiety Additional Psychological History / Comment(s): She is independent. She in a bilateral AKA and gets around in a power wheelchair. She has a hospital bed. She no longer drives but takes the bus. Smoking Status: Current some day smoker Past Alcohol Use History: None Reported Additional Past Alcohol Use History / Comment(s): Pt states she started smoking at age 18 yrs and the amount she smokes varies.Smoke a pack in two days Past Drug Use History: None Reported - Past Family History Father Family Medical History: Cancer, Myocardial Infarction ([place]) Additional Family Medical History / Comment(s): Father had lung cancer-went into remission. He of a massive [place] in his 60's Mother Family Medical History: Cancer Additional Family Medical History / Comment(s): Mother of lung cancer at age 54 yrs. Medications and Allergies Home Medications Medication Instructions Recorded Confirmed Type ALPRAZolam [Xanax] 0.5 mg PO BID 01/20/19 07/26/21 History Atorvastatin Calcium [Lipitor] 80 mg PO HS 12/25/19 07/26/21 History Baclofen [Lioresal] 10 mg PO TID 12/25/19 07/26/21 History Ondansetron Odt [Zofran ODT] 8 mg PO Q8HR PRN 12/25/19 07/26/21 History Valsartan [Diovan] 320 mg PO DAILY 12/25/19 07/26/21 History busPIRone HCl [Buspar] 10 mg PO TID 12/25/19 07/26/21 History Aspirin EC [Ecotrin Low Dose] 81 mg PO DAILY 03/20/20 07/26/21 History amLODIPine [Norvasc] 5 mg PO BID 03/27/20 07/26/21 History Pantoprazole Sodium [Protonix] 40 mg PO DAILY 08/28/20 07/26/21 History HYDROcodone/APAP 10-325MG [[place] 1 tab PO QID 12/10/20 07/26/21 History 10-325] Apixaban [Eliquis] 5 mg PO BID #60 tab 12/12/20 07/26/21 Rx Meloxicam 15 mg PO DAILY 04/08/21 07/26/21 History carvediloL [Coreg] 6.25 mg PO BID-W/MEALS 04/08/21 07/26/21 History Doxycycline Hyclate 100 mg PO BID 07/26/21 07/26/21 History Ipratropium-Albuterol Nebulize 3 ml INHALATION RT-QID PRN 07/26/21 07/26/21 History [Duoneb 0.5 mg-3 mg/3 ml Soln] Melatonin 10 mg PO HS 07/26/21 07/26/21 History bisacodyL [Dulcolax] 10 mg PO DAILY PRN 07/26/21 07/26/21 History cloNIDine HCL [Catapres] 0.05 mg PO TID 07/26/21 07/26/21 History hydroCHLOROthiazide [Hydrodiuril] 12.5 mg PO DAILY 07/26/21 07/26/21 History metFORMIN HCL [Glucophage] 500 mg PO BID-W/MEALS 07/26/21 07/26/21 History Allergies Allergy/AdvReac Type Severity Reaction Status Date / Time sulfamethoxazole Allergy Itching Verified 07/26/21 23:17 [From Septra] trimethoprim [From Septra] Allergy Itching Verified 07/26/21 23:17 levofloxacin [From Levaquin] AdvReac Muscle Pain Verified 07/26/21 23:17 nitrofurantoin AdvReac Unknown Verified 07/26/21 23:17 [From Macrobid] Surgical - Exam Osteopathic Statement: *. No significant issues noted on an osteopathic structural exam other than those noted in the History and Physical/Consult. Vital Signs Temp Pulse Resp BP Pulse Ox 98.4 F 79 16 147/88 97 07/26/21 17:13 07/26/21 17:13 07/26/21 17:13 07/26/21 17:13 07/26/21 17:13 - General well developed, well nourished, no distress - Eyes normal ocular movement - Neck trachea midline - Respiratory clear to auscultation - Cardiovascular Rhythm: regular - Abdomen Abdomen: soft, non tender (No obvious tenderness to palpation, the patient does say she is having pain in the left lower quadrant however) Results - Labs 07/26/21 19:42 07/26/21 19:42 Microbiology - Last 24 Hours (Table) 07/26/21 19:42 Blood Culture - Preliminary Blood No Growth after 24 hours - Imaging CT scan - abdomen: report reviewed Assessment and Plan (1) Abdominal pain Current Visit: Yes Status: Acute Code(s): R10.9 - UNSPECIFIED ABDOMINAL PAIN SNOMED Code(s): 51637635 (2) Diarrhea Current Visit: No Status: Acute Code(s): R19.7 - DIARRHEA, UNSPECIFIED SNOMED Code(s): 32365426 Plan: Patient has had extensive work-up for the diarrhea and abdominal pain in the past. Currently she is nonsurgical. There is mild leukocytosis so it is reasonable to treat her for a subacute diverticulitis. Recommend outpatient food allergy testing.
[2021-07-28] MEDS: MELOXICAM 7.5 MG TAB PO SCH (12:58)
[2021-07-28] MEDS: ASPIRIN 81 MG PO SCH (12:59)
[2021-07-28] MEDS: VALSARTAN 160 MG TAB PO SCH (12:59)
--- NOTE | 2021-07-28 13:23 | FL ---
EXAMINATION TYPE: FL barium enema DATE OF EXAM: 07/28/2021 COMPARISON: None HISTORY: Lower quadrant pain TECHNIQUE: Double air contrast technique was utilized to evaluate the lower GI. FINDINGS: Contrast followed by air is refluxed into the colon to the cecum. Scattered tiny scattered areas of adherent fecal debris. A be within the transverse and ascending colon. There is a diverticul um within the sigmoid colon. No extravasation of contrast is evident. Sigmoid colon is redundant. There is a calcification overlying the right sacroiliac joint. Ureteral stone measuring 1.2 cm could be considered. 1 minute 45 seconds of fluoroscopy time was provided for the procedure. 17 images were obtained. IMPRESSION: 1. Minimal diverticulosis without evidence of acute diverticulitis.
[2021-07-28 13:25] LABS: Basophils # (A) 0.1 k/uL (0-0.2); Basophils % (A) 1 %; Eosinophils # (A) 0.2 k/uL (0-0.7); Eosinophils % (A) 2 %; HCT 44.2 % (34.0-46.0); HGB 14.3 gm/dL (11.4-16.0); Lymphocytes # (A) 3.7 k/uL (1.0-4.8); Lymphocytes % (A) 34 %; MCH 30.4 pg (25.0-35.0); MCHC 32.4 g/dL (31.0-37.0); MCV 93.7 fL (80.0-100.0); Mean Platelet Volume 8.5; Monocytes # (A) 0.6 k/uL (0-1.0); Monocytes % (A) 6 %; Neutrophils # (A) 5.9 k/uL (1.3-7.7); Neutrophils % (A) 55 %; Platelet Count 291 k/uL (150-450); RBC 4.72 m/uL (3.80-5.40); RDW 13.1 % (11.5-15.5); WBC 10.8 k/uL (3.8-10.6)
[2021-07-28 13:55] LABS: ALT 32 U/L (4-34); AST 39 U/L (14-36); African American GFR (CKD) >90 (>60 ml/min/1.73 sqM); Albumin 3.1 g/dL (3.5-5.0); Alkaline Phosphatase 93 U/L (38-126); Anion Gap 8 mmol/L; Blood Urea Nitrogen 16 mg/dL (7-17); Calcium 8.5 mg/dL (8.4-10.2); Carbon Dioxide 21 mmol/L (22-30); Chloride 107 mmol/L (98-107); Globulin 3.1 g/dL; Glucose 86 mg/dL (74-99); Non-African American GFR(CKD) >90 (>60 ml/min/1.73 sqM); Potassium 3.8 mmol/L (3.5-5.1); Sodium 136 mmol/L (137-145); Total Bilirubin 0.5 mg/dL (0.2-1.3); Total Protein 6.2 g/dL (6.3-8.2)
[2021-07-28] MEDS: amLODIPine 5 MG TAB PO SCH ×2 (15:46→20:41)
[2021-07-28] MEDS: hydroCHLOROthiazide 12.5 MG CAP PO SCH (15:46)
[2021-07-28 15:59] LABS: Erythrocyte Sedimentation Rate 15 mm/hr (0-20)
[2021-07-28] MEDS ORDERED: DICYCLOMINE 10 MG CAP PO PRN (19:02)
[2021-07-28] MEDS ORDERED: MORPHINE SULFATE 4 MG/ML SYRINGE IVP PRN (19:03)
[2021-07-28] MEDS: IPRATROPIUM-ALBUTEROL 3 ML NEB INHALATION PRN (19:50)
[2021-07-28] MEDS: ATORVASTATIN 80 MG TAB PO SCH (20:42)
[2021-07-28] MEDS: MELATONIN 5 MG TABLET PO SCH (20:43)
[2021-07-29] MEDS: PIPERACILLIN-TAZOBACTAM 3.375 GM in SODIUM CHLORIDE 0.9% 100 ML IVPB SCH ×3 (01:43→17:52)
[2021-07-29] MEDS: SODIUM CHLORIDE 0.9% 1,000 ML IV SCH (01:44)
[2021-07-29] MEDS: ONDANSETRON 4 MG/2 ML VIAL IVP PRN ×2 (03:00→09:30)
[2021-07-29] MEDS: MELOXICAM 7.5 MG TAB PO SCH (07:37)
[2021-07-29] MEDS: VALSARTAN 160 MG TAB PO SCH (07:37)
[2021-07-29] MEDS: cloNIDine HCL 0.1 MG TAB PO SCH ×3 (07:38→22:51)
[2021-07-29] MEDS: carvediloL 6.25 MG TAB PO SCH ×2 (07:38→17:42)
[2021-07-29] MEDS: busPIRone HCl 10 MG TAB PO SCH ×3 (07:38→23:07)
[2021-07-29] MEDS: HYDROcodone/APAP 10-325MG 1 EACH TAB PO SCH ×4 (07:39→22:50)
[2021-07-29] MEDS: hydroCHLOROthiazide 12.5 MG CAP PO SCH (07:39)
[2021-07-29] MEDS: BACLOFEN 10 MG TAB PO SCH ×3 (07:41→22:51)
[2021-07-29] MEDS: amLODIPine 5 MG TAB PO SCH ×2 (07:41→21:08)
[2021-07-29] MEDS: PANTOPRAZOLE 40 MG TABLET PO SCH (07:41)
[2021-07-29] MEDS: ALPRAZolam 0.5 MG TAB PO SCH ×3 (07:41→22:50)
[2021-07-29] MEDS: ASPIRIN 81 MG PO SCH (07:41)
[2021-07-29] MEDS: FAMOTIDINE 20 MG TAB PO SCH ×2 (07:42→21:08)
[2021-07-29] MEDS: APIXABAN 5 MG TAB PO SCH ×2 (07:44→21:08)
[2021-07-29] MEDS: IPRATROPIUM-ALBUTEROL 3 ML NEB INHALATION PRN (08:14)
--- NOTE | 2021-07-29 11:47 | P.PN ---
Progress Note - Text Progress Note Date: 07/29/21 Patient had unremarkable barium enema. She is nonsurgical. We'll follow up as needed
[2021-07-29] MEDS ORDERED: HYDROCORTISONE SUPPOSITORY 25 MG SUPP RECTAL STA (14:17)
--- NOTE | 2021-07-29 14:18 | P.PN ---
Subjective Progress Note Date: 07/28/21 his is a 65-year-old female patient of Dr. Aburto and Dr. Prescott with past medical history of coronary artery disease, hypertension, paroxysmal atrial fibrillation on Coumadin, hyper lipidemia, diabetes mellitus type 2, right nephrectomy and bilateral [id number] amputation, chronic pain syndrome under the care of Dr. Ratliff for pain management. She was last admitted in . for UTI and acute diverticulitis comes in this time with an acute excruciating pain 10 out of 10 involving the left lower quadrant associated with diarrhea. Patient denies any fever or chills. She had multiple episode of nausea and vomiting since last night. Pain is increased patient's anxiety. CT abdomen and pelvis was obtained in the ER with IV contrast that suggestion of bowel obstruction appendix was seen some deformity in the left proximal femur consistent with hip dysplasia with lateral subluxation luxation of left femoral head. Evidence of right nephrectomy with left kidney showing satisfactory contrast opacification on hydro-nephrosis cortical thinning left kidney consistent with atrophy. Ureters were not dilated no free fluid and was entered edema. No inguinal hernia no sign of pelvic mass. Abdominal x-ray was negative for bowel obstruction. Patient was admitted for possible acute diverticulitis. Patient received multiple pain medication including fentanyl and Dilaudid overnight nothing that was in patient's nausea. Vitals are reviewed patient's afebrile pulse 83 re spiratory rate 17 and blood pressure 152/75 on room air 96% stop labs reviewed patient had WBC of 12.1 and a normal sodium 136 potassium 5 BUN 18 creatinine 0.5 troponin negative lipase normal UA was negative: COVID negative. Patient initiated on Zosyn at 3.375 every 8 hours. ESR, CRP, stool studies and C. diff ordered since patient has diarrhea. 07/28 patient examined bedside. Still complains of left lower quadrant pain. CT findings were reviewed with the patient. We'll treat patient for acute diverticulitis with Zosyn. Surgery recommendation appreciated no acute intervention needed. Gave him enema results pending ROS Constitutional: Denies chills, Denies fever, Denies lethargy, Denies malaise, Denies poor appetite, Denies weakness, Denies weight loss Eyes: denies decreased vision, denies diplopia, denies discharge, denies pain Ears: deny: decreased hearing Ears, nose, mouth and throat: Denies dental pain, Denies headache, Denies nasal discharge, Denies nose pain Cardiovascular: Denies chest pain, Denies decreased exercise tolerance, Denies edema, Denies high blood pressure, Denies irregular heart beat, Denies palpitations, Denies paroxysmal nocturnal dyspnea, Denies rapid heart beat, Denies shortness of breath Respiratory: Denies congestion, Denies cough, Denies cough with sputum, Denies dyspnea, Denies home oxygen, Denies wheezing Gastrointestinal:endorses abdominal pain and diarrhea, Denies coffee ground emesis, Denies early satiety, Denies excessive gas, Denies heartburn, Denies hematemesis, Denies hematochezia, Denies loss of appetite,endorses nausea and vomiting Genitourinary: Denies dysuria, Denies flank pain, Denies kidney stones, Denies menorrhagia, Denies urgency, Denies urinary frequency Musculoskeletal: Denies gait dysfunction, Denies limitation of motion, Denies morning stiffness, Denies muscle cramps Integumentary: Denies rash, Denies wounds, Denies brittle nails, Denies change in hair/nails, Denies darkening of skin Neurological: Denies balance difficulties, Denies change in speech, Denies double vision, Denies gait dysfunction, Denies loss of vision, Denies motor disturbance, Denies numbness, Denies paralysis, Denies paresthesias, Denies seizures Psychiatric: Denies anxiety, Denies depression Endocrine: Denies excessive sweating, Denies excessive thirst, Denies high blood sugars, Denies palpitations Hematologic/Lymphatic: Denies easy bruising, Denies lymphadenopathy PHYSICAL EXAMINATION Gen: This is this is a 65-year-old female patient. She is resting in bed and appears to be comfortable and in no acute distress. HEENT: Head is atraumatic, normocephalic. Pupils equal, round. Sclerae is anicteric. NECK: Supple. No JVD. No lymphadenopathy. No thyromegaly. LUNGS: Clear to auscultation. No wheezes or rhonchi. No intercostal retracti ons. HEART: Regular rate and rhythm. Systolic ejection murmur at the left sternal border. ABDOMEN: Soft. Bowel sounds are present. No masses. tenderness involving the left lower quad EXTREMITIES: Bilateral lgkgj-hhe-[id number] amputations. NEUROLOGICAL: Patient is awake, alert and oriented x3. Cranial nerves 2 through 12 are grossly inta Assessment and plan Left lower abdominal pain, with tenderness in the left lower sigmoid region -likely C. diff colitis versus diverticulitis. CT abdomen negative for any acute infection in the limbs and in no ordered. Surgery consult for further evaluation. Zosyn initiated at 3.375 every 8 hours. Pain controlled with Dilaudid 0.5 every 3 hours. Continue [place] 10 4 times a day 4 mm left nephrolithiasis, nonobstructive - No sign of hydronephrosis. -UA negative for infection History of coronary artery disease. - On Lipitor, Norvasc Catapres Coreg no changes made Hypertension. -On Hydrea Diuril, which is on hold secondary diarrhea, continue on Catapres, and Norvasc with parameters Paroxysmal atrial fibrillation. -On eliquis and aspirin Hyperlipidemia. -On Lipitor Diabetes mellitus type 2. -Not on any agents prior to admission, HbA1c is 6.5. -Hold metformin Right nephrectomy -Stable Bilateral qfyue-xby-jovj amputation secondary to hip dysplasia s. Chronic pain management under the care of Dr. Ratliff. GI prophylaxis DVT prophylaxis Objective - Vital Signs Vital signs: Vital Signs Temp 99.0 F 07/28/21 14:50 Pulse 78 07/28/21 14:50 Resp 16 07/28/21 14:50 BP 121/66 07/28/21 14:50 Pulse Ox 95 07/28/21 14:50 Intake & Output 07/27/21 07/28/21 07/28/21 18:59 06:59 18:59 Intake Total 418 650 240 Balance 418 650 240 Intake: Oral 418 650 240 Other: Voiding Method Bedpan Bedpan Bedpan # Voids 1 3 # Bowel Movements 1 - Labs CBC & Chem 7: 07/28/21 12:55 07/28/21 12:55 Labs: Abnormal Lab Results - Last 24 Hours (Table) 07/28/21 07/28/21 Range/Units 12:55 12:55 WBC 10.8 H (3.8-10.6) k/uL Sodium 136 L (137-145) mmol/L Carbon Dioxide 21 L (22-30) mmol/L AST 39 H (14-36) U/L Total Protein 6.2 L (6.3-8.2) g/dL Albumin 3.1 L (3.5-5.0) g/dL Microbiology - Last 24 Hours (Table) 07/28/21 11:30 Stool Culture - Preliminary Stool 07/26/21 19:42 Blood Culture - Preliminary Blood No Growth after 24 hours
--- NOTE | 2021-07-29 14:29 | P.PN ---
Subjective Progress Note Date: 07/29/21 his is a 65-year-old female patient of Dr. Aburto and Dr. Prescott with past medical history of coronary artery disease, hypertension, paroxysmal atrial fibrillation on Coumadin, hyper lipidemia, diabetes mellitus type 2, right nephrectomy and bilateral [id number]-[id number] amputation, chronic pain syndrome under the care of Dr. Ratliff for pain management. She was last admitted in . for UTI and acute diverticulitis comes in this time with an acute excruciating pain 10 out of 10 involving the left lower quadrant associated with diarrhea. Patient denies any fever or chills. She had multiple episode of nausea and vomiting since last night. Pain is increased patient's anxiety. CT abdomen and pelvis was obtained in the ER with IV contrast that suggestion of bowel obstruction appendix was seen some deformity in the left proximal femur consistent with hip dysplasia with lateral subluxation luxation of left femoral head. Evidence of right nephrectomy with left kidney showing satisfactory contrast opacification on hydro-nephrosis cortical thinning left kidney consistent with atrophy. Ureters were not dilated no free fluid and was entered edema. No inguinal hernia no sign of pelvic mass. Abdominal x-ray was negative for bowel obstruction. Patient was admitted for possible acute diverticulitis. Patient received multiple pain medication including fentanyl and Dilaudid overnight nothing that was in patient's nausea. Vitals are reviewed patient's afebrile pulse 83 re spiratory rate 17 and blood pressure 152/75 on room air 96% stop labs reviewed patient had WBC of 12.1 and a normal sodium 136 potassium 5 BUN 18 creatinine 0.5 troponin negative lipase normal UA was negative: COVID negative. Patient initiated on Zosyn at 3.375 every 8 hours. ESR, CRP, stool studies and C. diff ordered since patient has diarrhea. 07/28 patient examined bedside. Still complains of left lower quadrant pain. CT findings were reviewed with the patient. We'll treat patient for acute diverticulitis with Zosyn. Surgery recommendation appreciated no acute intervention needed. Gave him enema results pending 07/29 patient examined bedside. Continues to complain of left lower quadrant abdominal pain radiating to the right. Discussed in length with surgery with no further recommendation. Workup has been completed including multiple CAT scans and patient's physical examination is not suggestive of obstruction. barium enema was negative for diverticulitis positive for diverticulosis. Patient is in tears unable to relax in bed due to extreme pain. Xanax increased to 0.53 times a day. Morphine initiated back in 4 mg every 6 hours. Nurse noticed patient has chalky-colored stools this morning. Vitals are reviewed, patient's afebrile pulse 64 blood pressure stable oxygen 97% on room air with 136 potassium 3.868 ESR CRP and normal lipase is improved to 103 C. diff negative COVID negative. Hydrocortisone suppository will be attempted to help with any spasms or tenesmus patient is having. CT abdomen with oral contrast will be obtained as if there is any abnormality that was missed on CT abdomen with IV contrast. 1.2 cm stone noted on barium enema will consult urology for possible pyelogram to help with obstruction. ROS Constitutional: Denies chills, Denies fever, Denies lethargy, Denies malaise, Denies poor appetite, Denies weakness, Denies weight loss Eyes: denies decreased vision, denies diplopia, denies discharge, denies pain Ears: deny: decreased hearing Ears, nose, mouth and throat: Denies dental pain, Denies headache, Denies nasal discharge, Denies nose pain Cardiovascular: Denies chest pain, Denies decreased exercise tolerance, Denies edema, Denies high blood pressure, Denies irregular heart beat, Denies palpitations, Denies paroxysmal nocturnal dyspnea, Denies rapid heart beat, Denies shortness of breath Respiratory: Denies congestion, Denies cough, Denies cough with sputum, Denies dyspnea, Denies home oxygen, Denies wheezing Gastrointestinal:endorses abdominal pain and diarrhea, Denies coffee ground emesis, Denies early satiety, Denies excessive gas, Denies heartburn, Denies hematemesis, Denies hematochezia, Denies loss of appetite,endorses nausea and vomiting Genitourinary: Denies dysuria, Denies flank pain, Denies kidney stones, Denies menorrhagia, Denies urgency, Denies urinary frequency Musculoskeletal: Denies gait dysfunction, Denies limitation of motion, Denies morning stiffness, Denies muscle cramps Integumentary: Denies rash, Denies wounds, Denies brittle nails, Denies change in hair/nails, Denies darkening of skin Neurological: Denies balance difficulties, Denies change in speech, Denies double vision, Denies gait dysfunction, Denies loss of vision, Denies motor disturbance, Denies numbness, Denies paralysis, Denies paresthesias, Denies seizures Psychiatric: Denies anxiety, Denies depression Endocrine: Denies excessive sweating, Denies excessive thirst, Denies high blood sugars, Denies palpitations Hematologic/Lymphatic: Denies easy bruising, Denies lymphadenopathy PHYSICAL EXAMINATION Gen: This is this is a 65-year-old female patient. She is resting in bed and appears to be comfortable and in no acute distress. HEENT: Head is atraumatic, normocephalic. Pupils equal, round. Sclerae is anicteric. NECK: Supple. No JVD. No lymphadenopathy. No thyromegaly. LUNGS: Clear to auscultation. No wheezes or rhonchi. No intercostal retractions. HEART: Regular rate and rhythm. Systolic ejection murmur at the left sternal border. ABDOMEN: Soft. Bowel sounds are present. No masses. tenderness involving the left lower quad EXTREMITIES: Bilateral ifynt-mju-ghye amputations. NEUROLOGICAL: Patient is awake, alert and oriented x3. Cranial nerves 2 through 12 are grossly inta Assessment and plan Left lower abdominal pain, with tenderness in the left lower sigmoid region , possible ureteral stone -likelydiverticulitis. C. diff ruled out CT abdomen negative for any acute infection - Surgery consult for further evaluation. -Zosyn initiated at 3.375 every 8 hours. - Pain controlled with morphine 4 every 6 hours. Continue [place] 10 4 times a day -Hydrocortisone suppository to help with tenesmus -Baclofen 20 mg 3 times a day -Bentyl 10 mg 3 times a day -Urology consulted 4 mm left nephrolithiasis, nonobstructive - No sign of hydronephrosis. -UA negative for infection History of coronary artery disease. - On Lipitor, Norvasc Catapres Coreg no changes made Hypertension. -On Hydrea Diuril, which is on hold secondary diarrhea, continue on Catapres, and Norvasc with parameters Paroxysmal atrial fibrillation. -On eliquis and aspirin Hyperlipidemia. -On Lipitor Diabetes mellitus type 2. -Not on any agents prior to admission, HbA1c is 6.5. -Hold metformin Right nephrectomy -Stable Bilateral zitxj-bqk-[id number] amputation secondary to hip dysplasia s. Chronic pain management under the care of Dr. Ratliff. GI prophylaxis DVT prophylaxis Objective - Vital Signs Vital signs: Vital Signs Temp 98.1 F 07/29/21 07:00 Pulse 68 07/29/21 08:22 Resp 16 07/29/21 07:00 BP 125/77 07/29/21 07:00 Pulse Ox 97 07/29/21 07:00 Intake & Output 07/28/21 07/29/21 07/29/21 18:59 06:59 18:59 Intake Total 720 240 Balance 720 240 Intake: Oral 720 240 Other: Voiding Method Bedpan Bedpan Bedpan Diaper Diaper # Voids 2 1 # Bowel Movements 1 1 1 - Labs CBC & Chem 7: 07/28/21 12:55 07/28/21 12:55 Labs: Abnormal Lab Results - Last 24 Hours (Table) 07/29/21 Range/Units 06:10 Lipase 103 H (14-63) U/L Microbiology - Last 24 Hours (Table) 07/26/21 19:42 Blood Culture - Preliminary Blood No Growth after 48 hours 07/28/21 11:30 Stool Culture - Preliminary Stool
[2021-07-29] MEDS: IOPAMIDOL CONTRAST (ORAL USE) VIAL PO PRN ×2 (14:52→15:27)
[2021-07-29] MEDS: methylPREDNISolone SOD SUCCI 125 MG/2 ML VIAL IV SCH ×2 (17:12→22:50)
--- NOTE | 2021-07-29 17:34 | CT ---
EXAMINATION TYPE: CT abdomen pelvis wo con CT DLP: 1068 mGycm, Automated exposure control for dose reduction was used. DATE OF EXAM: 07/29/2021 5:08 PM COMPARISON: CT abdomen pelvis most recent 07/26/2021. CLINICAL INDICATION:Female, 66 years old with history of continued pain, Continued abdominal pain TECHNIQUE: Standard CT of the abdomen and pelvis without IV or oral contrast. Lack of IV or oral co ntrast limits evaluation of solid and hollow organ viscera. Coronal and sagittal reformats were perfo rmed. Contrast within the bowel is from barium enema 07/28/2021. FINDINGS: LOWER CHEST: Moderate hiatal hernia. Valve annular calcifications are present. ABDOMEN LIVER: Multiple subcentimeter hypoattenuating structures are demonstrated throughout the liver, which are too small to accurately characterize but statistically likely to represent simple hepatic cysts GALLBLADDER AND BILE DUCTS: The gallbladder is surgically absent. PANCREAS: Unremarkable. SPLEEN: Unremarkable. ADRENAL GLANDS: Unremarkable. KIDNEYS AND URETERS: Right kidney is surgically absent. No evidence of hydronephrosis or renal calcul us. The ureters are unremarkable. Persistent scarring of the inferior pole left kidney. PELVIS BLADDER: Unremarkable REPRODUCTIVE: Unremarkable. ABDOMEN & PELVIS limit evaluation slightly secondary to beam hardening from barium oral contrast. STOMACH AND BOWEL: Contrast from prior study is seen throughout the colon. This limits evaluation sli ghtly of the abdomen due to streak artifact. No evidence of bowel obstruction. PERITONEUM: No evidence of pneumoperitoneum or free fluid. VASCULATURE: No evidence of aortic aneurysm. Persistent caliber change of the distal abdominal aorta just past the takeoff of the renal arteries. Sclerosis of the abdominal aorta. MUSCULOSKELETAL: No acute osseous abnormalities. There is chronic deformity to the left proximal femu r/femoral head. There is similar fatty atrophy of the musculature and upper thighs. Multilevel degene rative changes of the spine. LYMPH NODES: No gross evidence for lymphadenopathy. SOFT TISSUE/ABDOMINAL WALL: Fat filled umbilical hernia is subcentimeter at the neck. IMPRESSION: 1. No evidence for acute process. Family history limited due to oral barium throughout the colon with streak artifact throughout the abdomen. 2. Moderate right hernia. 3. Mitral valve annular calcifications. 4. Similar abrupt caliber change of the abdominal aorta just distal to the renal artery take off dati ng back to at least 2013 likely congenital.
[2021-07-29] MEDS: MELATONIN 5 MG TABLET PO SCH (21:08)
[2021-07-29] MEDS: ATORVASTATIN 80 MG TAB PO SCH (21:08)
[2021-07-30] MEDS: PIPERACILLIN-TAZOBACTAM 3.375 GM in SODIUM CHLORIDE 0.9% 100 ML IVPB SCH ×2 (01:28→08:31)
[2021-07-30] MEDS: SODIUM CHLORIDE 0.9% 1,000 ML IV SCH (01:29)
[2021-07-30] MEDS: MORPHINE SULFATE 4 MG/ML SYRINGE IVP PRN ×3 (03:48→13:15)
[2021-07-30] MEDS: methylPREDNISolone SOD SUCCI 125 MG/2 ML VIAL IV SCH ×2 (06:04→13:20)
[2021-07-30 06:19] VITALS: RESP 18
[2021-07-30] MEDS: PANTOPRAZOLE 40 MG TABLET PO SCH (08:30)
[2021-07-30] MEDS: ALPRAZolam 0.5 MG TAB PO SCH ×2 (08:30→15:43)
[2021-07-30] MEDS: HYDROcodone/APAP 10-325MG 1 EACH TAB PO SCH ×3 (08:30→15:10)
[2021-07-30] MEDS: BACLOFEN 10 MG TAB PO SCH (08:31)
[2021-07-30] MEDS: amLODIPine 5 MG TAB PO SCH (08:31)
[2021-07-30] MEDS: APIXABAN 5 MG TAB PO SCH (08:31)
[2021-07-30] MEDS: FAMOTIDINE 20 MG TAB PO SCH (08:31)
[2021-07-30] MEDS: ASPIRIN 81 MG PO SCH (08:31)
[2021-07-30] MEDS: cloNIDine HCL 0.1 MG TAB PO SCH (08:32)
[2021-07-30] MEDS: busPIRone HCl 10 MG TAB PO SCH (08:33)
[2021-07-30] MEDS: VALSARTAN 160 MG TAB PO SCH (08:33)
[2021-07-30] MEDS: hydroCHLOROthiazide 12.5 MG CAP PO SCH (08:33)
[2021-07-30] MEDS: carvediloL 6.25 MG TAB PO SCH (08:33)
[2021-07-30 08:55] VITALS: BP 154/79; TEMP 98.4
--- NOTE | 2021-07-30 08:59 | P.GSCN ---
History of Present Illness Consult date: 07/30/21 Reason for Consult: right ureteral calcification History of present illness: This is a 66 yo female admitted to the hospital with abdominal pain, she underwent a barium enema which showed right upper quadrant calcification possibly along the right ureter. she indicated her abdominal pain is in the left lower quadrant. Of note she underwent a right-sided nephrectomy in 2019 at [facility] for atrophic right kidney and a possible renal mass, she indicated has not followed up since that time with her urologist. review of CT from 2020, and the calcification is not along the course of the ureter. she does complain of urinary incontinence, this is a chronic issue for her Review of Systems - Constitutional Denies fever, Denies weight loss - Cardiovascular Denies chest pain, Denies shortness of breath - Respiratory Denies cough, Denies 7 - Gastrointestinal Reports abdominal pain - Genitourinary Genitourinary: Reports kidney stones, Denies dysuria - Integumentary Denies rash, Denies unusual bruising - Neurological Denies headaches, Denies syncope Past Medical History Past Medical History: Atrial Fibrillation, Coronary Artery Disease (CAD), CVA/TIA, GERD/Reflux, Hyperlipidemia, Hypertension Additional Past Medical History / Comment(s): hx urinary retention, Nephrolithiasis, recurrent UTI, double amputation lower extremities, aka. small cyst on kidney, pt states no longer diabetic, right kidney removal. 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 Right kidney removal july 2020 Past Anesthesia/Blood Transfusion Reactions: No Reported Reaction Additional Past Anesthesia/Blood Transfusion Reaction / Comm: Pt received blood in 1978-no reaction reported. Past Psychological History: Anxiety Additional Psychological History / Comment(s): She is independent. She in a bilateral AKA and gets around in a power wheelchair. She has a hospital bed. She no longer drives but takes the bus. Smoking Status: Current some day smoker Past Alcohol Use History: None Reported Additional Past Alcohol Use History / Comment(s): Pt states she started smoking at age 18 yrs and the amount she smokes varies.Smoke a pack in two days Past Drug Use History: None Reported - Past Family History Father Family Medical History: Cancer, Myocardial Infarction ([place]) Additional Family Medical History / Comment(s): Father had lung cancer-went into remission. He of a massive [place] in his 60's Mother Family Medical History: Cancer Additional Family Medical History / Comment(s): Mother of lung cancer at age 54 yrs. Medications and Allergies Home Medications Medication Instructions Recorded Confirmed Type ALPRAZolam [Xanax] 0.5 mg PO BID 01/20/19 07/26/21 History Atorvastatin Calcium [Lipitor] 80 mg PO HS 12/25/19 07/26/21 History Baclofen [Lioresal] 10 mg PO TID 12/25/19 07/26/21 History Ondansetron Odt [Zofran ODT] 8 mg PO Q8HR PRN 12/25/19 07/26/21 History Valsartan [Diovan] 320 mg PO DAILY 12/25/19 07/26/21 History busPIRone HCl [Buspar] 10 mg PO TID 12/25/19 07/26/21 History Aspirin EC [Ecotrin Low Dose] 81 mg PO DAILY 03/20/20 07/26/21 History amLODIPine [Norvasc] 5 mg PO BID 03/27/20 07/26/21 History Pantoprazole Sodium [Protonix] 40 mg PO DAILY 08/28/20 07/26/21 History HYDROcodone/APAP 10-325MG [[place] 1 tab PO QID 12/10/20 07/26/21 History 10-325] Apixaban [Eliquis] 5 mg PO BID #60 tab 12/12/20 07/26/21 Rx Meloxicam 15 mg PO DAILY 04/08/21 07/26/21 History carvediloL [Coreg] 6.25 mg PO BID-W/MEALS 04/08/21 07/26/21 History Doxycycline Hyclate 100 mg PO BID 07/26/21 07/26/21 History Ipratropium-Albuterol Nebulize 3 ml INHALATION RT-QID PRN 07/26/21 07/26/21 History [Duoneb 0.5 mg-3 mg/3 ml Soln] Melatonin 10 mg PO HS 07/26/21 07/26/21 History bisacodyL [Dulcolax] 10 mg PO DAILY PRN 07/26/21 07/26/21 History cloNIDine HCL [Catapres] 0.05 mg PO TID 07/26/21 07/26/21 History hydroCHLOROthiazide [Hydrodiuril] 12.5 mg PO DAILY 07/26/21 07/26/21 History metFORMIN HCL [Glucophage] 500 mg PO BID-W/MEALS 07/26/21 07/26/21 History Allergies Allergy/AdvReac Type Severity Reaction Status Date / Time sulfamethoxazole Allergy Itching Verified 07/26/21 23:17 [From Septra] trimethoprim [From Septra] Allergy Itching Verified 07/26/21 23:17 levofloxacin [From Levaquin] AdvReac Muscle Pain Verified 07/26/21 23:17 nitrofurantoin AdvReac Unknown Verified 07/26/21 23:17 [From Macrobid] Surgical - Exam Vital Signs Temp Pulse Resp BP Pulse Ox 98.4 F 79 16 147/88 97 07/26/21 17:13 07/26/21 17:13 07/26/21 17:13 07/26/21 17:13 07/26/21 17:13 - General no distress, moderate pain - Eyes normal ocular movement, no pale - Respiratory normal expansion, normal respiratory effort - Abdomen Abdomen: soft, tender (left quadrant ) - Neurologic no disoriented, no combative - Psychiatric oriented to time, oriented to person, oriented to place, speech is normal, memory intact Results - Labs 07/28/21 12:55 07/28/21 12:55 Abnormal Lab Results - Last 24 Hours (Table) 07/29/21 Range/Units 06:10 Lipase 103 H (14-63) U/L Microbiology - Last 24 Hours (Table) 07/26/21 19:42 Blood Culture - Preliminary Blood No Growth after 72 hours Assessment and Plan Assessment: 66-year-old female admitted to the hospital with abdominal pain. Barium enema showed possible calcification in the right upper quadrant, of note the patient underwent a right-sided nephrectomy back in 2019 at [facility].Additionally CT from 2019 showed calcification to be outside the course of the ureter. Given surgically absent kidney, her pain is not from the calcification, calcification is most likely from vascular calcification. No further intervention from urology standpoint. Advised her to f/u with her urologist at [facility].
[2021-07-30] MEDS: IPRATROPIUM-ALBUTEROL 3 ML NEB INHALATION PRN (12:08)
[2021-07-30] MEDS: ONDANSETRON 4 MG/2 ML VIAL IVP PRN (13:29)
--- NOTE | 2021-07-30 13:42 | P.PN ---
Subjective Progress Note Date: 07/30/21 Patient is reevaluated due to persistent abdominal pain. It's in the left lower quadrant. She said after her colonoscopy was performed last November she was started on dicyclomine and that helped. She persists in having diarrhea. No nausea or vomiting. Objective - Vital Signs Vital signs: Vital Signs Temp 98.4 F 07/30/21 07:00 Pulse 84 07/30/21 12:21 Resp 18 07/30/21 12:21 BP 154/79 07/30/21 07:00 Pulse Ox 94 L 07/30/21 07:00 Intake & Output 07/29/21 07/30/21 07/30/21 18:59 06:59 18:59 Intake Total 240 236 Balance 240 236 Intake: Oral 240 236 Other: Voiding Method Bedpan Bedpan Bedpan Diaper Diaper Diaper # Voids 1 2 # Bowel Movements 1 1 - Constitutional General appearance: Present: cooperative, no acute distress - Gastrointestinal General gastrointestinal: Present: normal bowel sounds, soft. Absent: tenderness (No obvious tenderness to deep palpation while I am examining her and talking to her at the same time) Localized gastrointestinal: surgical scar: diffuse (No evidence of rash such as would be seen with shingles) - Labs CBC & Chem 7: 07/28/21 12:55 07/28/21 12:55 Labs: Microbiology - Last 24 Hours (Table) 07/28/21 11:30 Stool Culture - Preliminary Stool 07/26/21 19:42 Blood Culture - Preliminary Blood No Growth after 72 hours - Imaging and Cardiology CT scan - abdomen: report reviewed, image reviewed Assessment and Plan (1) Abdominal pain Current Visit: Yes Status: Acute Code(s): R10.9 - UNSPECIFIED ABDOMINAL PAIN SNOMED Code(s): 89483129 (2) Diarrhea Current Visit: No Status: Acute Code(s): R19.7 - DIARRHEA, UNSPECIFIED SNOMED Code(s): 52578187 Plan: I personally reviewed the repeated computed tomography scan yesterday and discussed the findings with primary service. The symptoms are likely related to irritable bowel syndrome. Prior colonoscopy with biopsy showed no evidence of inflammatory bowel disease. C. diff and culture were negative. Recommend supportive care. Outpatient food ALLERGY testing
[2021-07-30 13:53] VITALS: PULSE 88
--- NOTE | 2021-07-30 14:48 | P.DS ---
Providers Date of admission: 07/29/21 09:08 Attending physician: Arvin Aburto MD Consults: 07/27/21 17:00 Consult Physician Routine Consulting Provider: Geo Milner Consult Reason/Comments: acute lower quad abd pain with nause and vomiting Do you want consulting provider notified?: Yes 07/29/21 14:27 Consult Physician Routine Consulting Provider: Jayesh Dela Cruz Consult Reason/Comments: 1.2 cm stone on barium enema Do you want consulting provider notified?: Yes 07/30/21 12:15 Consult Physician Routine Consulting Provider: Coretta Richardson Consult Reason/Comments: severe abd pain left quad, distal aorta abn? Do you want consulting provider notified?: Yes Primary care physician: Daryl Aburto MD Hospital Course: his is a 65-year-old female patient of Dr. Aburto and Dr. Prescott with past medical history of coronary artery disease, hypertension, paroxysmal atrial fibrillation on Coumadin, hyper lipidemia, diabetes mellitus type 2, right nephrectomy and bilateral [id number] amputation, chronic pain syndrome under the care of Dr. Ratliff for pain management. She was last admitted in . / for UTI and acute diverticulitis comes in this time with an acute excruciating pain 10 out of 10 involving the left lower quadrant associated with diarrhea. Patient denies any fever or chills. She had multiple episode of nausea and vomiting since last night. Pain is increased patient's anxiety. CT abdomen and pelvis was obtained in the ER with IV contrast that suggestion of bowel obstruction appendix was seen some deformity in the left proximal femur consistent with hip dysplasia with lateral subluxation luxation of left femoral head. Evidence of right nephrectomy with left kidney showing satisfactory contrast opacification on hydro-nephrosis cortical thinning left kidney consistent with atrophy. Ureters were not dilated no free fluid and was entered edema. No inguinal hernia no sign of pelvic mass. Abdominal x-ray was negative for bowel obstruction. Patient was admitted for possible acute diverticulitis. Patient received multiple pain medication including fentanyl and Dilaudid overnight nothing that was in patient's nausea. Vitals are reviewed patient's afebrile pulse 83 respiratory rate 17 and blood pressure 152/75 on room air 96% stop labs reviewed patient had WBC of 12.1 and a normal sodium 136 potassium 5 BUN 18 creatinine 0.5 troponin negative lipase normal UA was negative: COVID negative. Patient initiated on Zosyn at 3.375 every 8 hours. ESR, CRP, stool studies and C. diff ordered since patient has diarrhea. 07/28 patient examined bedside. Still complains of left lower quadrant pain. CT findings were reviewed with the patient. We'll treat patient for acute diverticulitis with Zosyn. Surgery recommendation appreciated no acute intervention needed. Gave him enema results pending 07/29 patient examined bedside. Continues to complain of left lower quadrant abdominal pain radiating to the right. Discussed in length with surgery with no further recommendation. Workup has been completed including multiple CAT scans and patient's physical examination is not suggestive of obstruction. barium enema was negative for diverticulitis positive for diverticulosis. Patient is in tears unable to relax in bed due to extreme pain. Xanax increased to 0.53 times a day. Morphine initiated back in 4 mg every 6 hours. Nurse noticed patient has chalky-colored stools this morning. Vitals are reviewed, patient's afebrile pulse 64 blood pressure stable oxygen 97% on room air with 136 potassium 3.868 ESR CRP and normal lipase is improved to 103 C. diff negative COVID negative. Hydrocortisone suppository will be attempted to help with any spasms or tenesmus patient is having. CT abdomen with oral contrast will be obtained as if there is any abnormality that was missed on CT abdomen with IV contrast. 1.2 cm stone noted on barium enema will consult urology for possible pyelogram to help with obstruction. 07/30 patient examined bedside. Continues to have left lower quadrant abdominal pain radiating to the right. Patient vitals are stable labs are reviewed WBC 10.8 sodium 136 BUN 16 creatinine 0.6 CRP is negative ESR is negative C. diff is negative. Patient continues to use morphine along with [place] for pain control. No improvement in pain and the addition of steroid according to the patient. Detailed discussion of patient's medical condition was done with the surgery, vascular surgery at urologist and does not see any acute abdomen or vascular abnormality contributing to patient's symptoms. Patient's symptoms either related to IBS versus food ALLERGY. Patient will be discharged today with follow-up as outpatient ROS Constitutional: Denies chills, Denies fever, Denies lethargy, Denies malaise, Denies poor appetite, Denies weakness, Denies weight loss Eyes: denies decreased vision, denies diplopia, denies discharge, denies pain Ears: deny: decreased hearing Ears, nose, mouth and throat: Denies dental pain, Denies headache, Denies nasal discharge, Denies nose pain Cardiovascular: Denies chest pain, Denies decreased exercise tolerance, Denies edema, Denies high blood pressure, Denies irregular heart beat, Denies palpitations, Denies paroxysmal nocturnal dyspnea, Denies rapid heart beat, Denies shortness of breath Respiratory: Denies congestion, Denies cough, Denies cough with sputum, Denies dyspnea, Denies home oxygen, Denies wheezing Gastrointestinal:endorses abdominal pain and diarrhea, Denies coffee ground emesis, Denies early satiety, Denies excessive gas, Denies heartburn, Denies hematemesis, Denies hematochezia, Denies loss of appetite,endorses nausea and vomiting Genitourinary: Denies dysuria, Denies flank pain, Denies kidney stones, Denies menorrhagia, Denies urgency, Denies urinary frequency Musculoskeletal: Denies gait dysfunction, Denies limitation of motion, Denies morning stiffness, Denies muscle cramps Integumentary: Denies rash, Denies wounds, Denies brittle nails, Denies change in hair/nails, Denies darkening of skin Neurological: Denies balance difficulties, Denies change in speech, Denies double vision, Denies gait dysfunction, Denies loss of vision, Denies motor disturbance, Denies numbness, Denies paralysis, Denies paresthesias, Denies seizures Psychiatric: Denies anxiety, Denies depression Endocrine: Denies excessive sweating, Denies excessive thirst, Denies high blood sugars, Denies palpitations Hematologic/Lymphatic: Denies easy bruising, Denies lymphadenopathy PHYSICAL EXAMINATION Gen: This is this is a 65-year-old female patient. She is resting in bed and appears to be comfortable and in no acute distress. HEENT: Head is atraumatic, normocephalic. Pupils equal, round. Sclerae is anicteric. NECK: Supple. No JVD. No lymphadenopathy. No thyromegaly. LUNGS: Clear to auscultation. No wheezes or rhonchi. No intercostal retracti ons. HEART: Regular rate and rhythm. Systolic ejection murmur at the left sternal border. ABDOMEN: Soft. Bowel sounds are present. No masses. tenderness involving the left lower quad EXTREMITIES: Bilateral crptt-yci-fiso amputations. NEUROLOGICAL: Patient is awake, alert and oriented x3. Cranial nerves 2 through 12 are grossly inta Assessment and plan Left lower abdominal pain, with tenderness in the left lower sigmoid region , ureteral stone ruled out -likely diverticulitis versus IBS. C. diff ruled out CT abdomen negative for any acute infection - Surgery consult for further evaluation. -Zosyn and switched to Augmentin for 7 days - Pain controlled with morphine 4 every 6 hours. Continue [place] 10 4 times a day -Hydrocortisone suppository to help with tenesmus -Baclofen 20 mg 3 times a day -Bentyl 10 mg 3 times a day -Urology rule out stone -Gen. surgery ruled out any need of intervention or bowel resection -Vascular surgery ruled out any need of CT angiogram for possible ischemia 4 mm left nephrolithiasis, nonobstructive - No sign of hydronephrosis. -UA negative for infection History of coronary artery disease. - On Lipitor, Norvasc Catapres Coreg no changes made Hypertension. -On Hydrea Diuril, which is on hold secondary diarrhea, continue on Catapres, and Norvasc with parameters Paroxysmal atrial fibrillation. -On eliquis and aspirin Hyperlipidemia. -On Lipitor Diabetes mellitus type 2. -Not on any agents prior to admission, HbA1c is 6.5. -Hold metformin Right nephrectomy -Stable Bilateral [id number] amputation secondary to hip dysplasia s. Chronic pain management under the care of Dr. Ratliff. More than 30 minutes was spent in patient's assessment and plan and counseling the patient Patient Condition at Discharge: Fair Plan - Discharge Summary Discharge Rx Participant: Yes New Discharge Prescriptions: New Dicyclomine [Bentyl] 10 mg PO TID PRN #90 cap PRN Reason: Gi Upset Amoxic-Pot Clav 875-125Mg [Augmentin 875-125] 1 tab PO Q12HR 10 Days #20 tab predniSONE [Deltasone] 40 mg PO DAILY #20 tab Continue ALPRAZolam [Xanax] 0.5 mg PO BID Valsartan [Diovan] 320 mg PO DAILY Ondansetron Odt [Zofran ODT] 8 mg PO Q8HR PRN PRN Reason: Nausea And Vomiting busPIRone HCl [Buspar] 10 mg PO TID Baclofen [Lioresal] 10 mg PO TID Atorvastatin Calcium [Lipitor] 80 mg PO HS Aspirin EC [Ecotrin Low Dose] 81 mg PO DAILY amLODIPine [Norvasc] 5 mg PO BID Pantoprazole Sodium [Protonix] 40 mg PO DAILY Apixaban [Eliquis] 5 mg PO BID #60 tab carvediloL [Coreg] 6.25 mg PO BID-W/MEALS Ipratropium-Albuterol Nebulize [Duoneb 0.5 mg-3 mg/3 ml Soln] 3 ml INHALATION RT-QID PRN PRN Reason: Shortness Of Breath cloNIDine HCL [Catapres] 0.05 mg PO TID Melatonin 10 mg PO HS HYDROcodone/APAP 10-325MG [[place] 10-325] 1 tab PO QID hydroCHLOROthiazide [Hydrodiuril] 12.5 mg PO DAILY bisacodyL [Dulcolax] 10 mg PO DAILY PRN PRN Reason: Constipation Discontinued metFORMIN HCL [Glucophage] 500 mg PO BID-W/MEALS Meloxicam 15 mg PO DAILY Doxycycline Hyclate 100 mg PO BID Discharge Medication List ALPRAZolam [Xanax] 0.5 mg PO BID 01/20/19 [History] Atorvastatin Calcium [Lipitor] 80 mg PO HS 12/25/19 [History] Baclofen [Lioresal] 10 mg PO TID 12/25/19 [History] Ondansetron Odt [Zofran ODT] 8 mg PO Q8HR PRN 12/25/19 [History] Valsartan [Diovan] 320 mg PO DAILY 12/25/19 [History] busPIRone HCl [Buspar] 10 mg PO TID 12/25/19 [History] Aspirin EC [Ecotrin Low Dose] 81 mg PO DAILY 03/20/20 [History] amLODIPine [Norvasc] 5 mg PO BID 03/27/20 [History] Pantoprazole Sodium [Protonix] 40 mg PO DAILY 08/28/20 [History] HYDROcodone/APAP 10-325MG [[place] 10-325] 1 tab PO QID 12/10/20 [History] Apixaban [Eliquis] 5 mg PO BID #60 tab 12/12/20 [Rx] carvediloL [Coreg] 6.25 mg PO BID-W/MEALS 04/08/21 [History] Ipratropium-Albuterol Nebulize [Duoneb 0.5 mg-3 mg/3 ml Soln] 3 ml INHALATION RT-QID PRN 07/26/21 [History] Melatonin 10 mg PO HS 07/26/21 [History] bisacodyL [Dulcolax] 10 mg PO DAILY PRN 07/26/21 [History] cloNIDine HCL [Catapres] 0.05 mg PO TID 07/26/21 [History] hydroCHLOROthiazide [Hydrodiuril] 12.5 mg PO DAILY 07/26/21 [History] Amoxic-Pot Clav 875-125Mg [Augmentin 875-125] 1 tab PO Q12HR 10 Days #20 tab 07/30/21 [Rx] Dicyclomine [Bentyl] 10 mg PO TID PRN #90 cap 07/30/21 [Rx] predniSONE [Deltasone] 40 mg PO DAILY #20 tab 07/30/21 [Rx] Follow up Appointment(s)/Referral(s): Arvin Aburto MD [Medical Doctor] - 1 Week Patient Instructions/Handouts: How to Stop Smoking (DC), Abdominal Pain (ED) Activity/Diet/Wound Care/Special Instructions: Contact primary care provider for a glucometer if needed. Discharge Disposition: HOME SELF-CARE
--- NOTE | 2021-07-30 17:12 | P.GSCN ---
History of Present Illness Consult date: 07/30/21 History of present illness: Patient is a 66-year-old female who we are asked to see regarding her left lower quadrant abdominal pain. Has been going on for a long period of time but is somewhat worsened. She states it is more recurrent when she has bowel movements and with her bowel function. 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 Patient denies any nausea or vomiting. She denies any food fear in particular. She is able to tolerate a diet without any issue. Eating does not seem to change her pain Past Medical History Past Medical History: Atrial Fibrillation, Coronary Artery Disease (CAD), CVA/TIA, GERD/Reflux, Hyperlipidemia, Hypertension Additional Past Medical History / Comment(s): hx urinary retention, Nephrolithiasis, recurrent UTI, double amputation lower extremities, aka. small cyst on kidney, pt states no longer diabetic, right kidney removal. 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 Right kidney removal july 2020 Past Anesthesia/Blood Transfusion Reactions: No Reported Reaction Additional Past Anesthesia/Blood Transfusion Reaction / Comm: Pt received blood in 1978-no reaction reported. Past Psychological History: Anxiety Additional Psychological History / Comment(s): She is independent. She in a bilateral AKA and gets around in a power wheelchair. She has a hospital bed. She no longer drives but takes the bus. Smoking Status: Current some day smoker Past Alcohol Use History: None Reported Additional Past Alcohol Use History / Comment(s): Pt states she started smoking at age 18 yrs and the amount she smokes varies.Smoke a pack in two days Past Drug Use History: None Reported - Past Family History Father Family Medical History: Cancer, Myocardial Infarction (AL) Additional Family Medical History / Comment(s): Father had lung cancer-went into remission. He of a massive AL in his 60's Mother Family Medical History: Cancer Additional Family Medical History / Comment(s): Mother of lung cancer at age 54 yrs. Medications and Allergies Home Medications Medication Instructions Recorded Confirmed Type ALPRAZolam [Xanax] 0.5 mg PO BID 01/20/19 07/26/21 History Atorvastatin Calcium [Lipitor] 80 mg PO HS 12/25/19 07/26/21 History Baclofen [Lioresal] 10 mg PO TID 12/25/19 07/26/21 History Ondansetron Odt [Zofran ODT] 8 mg PO Q8HR PRN 12/25/19 07/26/21 History Valsartan [Diovan] 320 mg PO DAILY 12/25/19 07/26/21 History busPIRone HCl [Buspar] 10 mg PO TID 12/25/19 07/26/21 History Aspirin EC [Ecotrin Low Dose] 81 mg PO DAILY 03/20/20 07/26/21 History amLODIPine [Norvasc] 5 mg PO BID 03/27/20 07/26/21 History Pantoprazole Sodium [Protonix] 40 mg PO DAILY 08/28/20 07/26/21 History HYDROcodone/APAP 10-325MG [[place] 1 tab PO QID 12/10/20 07/26/21 History 10-325] Apixaban [Eliquis] 5 mg PO BID #60 tab 12/12/20 07/26/21 Rx carvediloL [Coreg] 6.25 mg PO BID-W/MEALS 04/08/21 07/26/21 History Ipratropium-Albuterol Nebulize 3 ml INHALATION RT-QID PRN 07/26/21 07/26/21 History [Duoneb 0.5 mg-3 mg/3 ml Soln] Melatonin 10 mg PO HS 07/26/21 07/26/21 History bisacodyL [Dulcolax] 10 mg PO DAILY PRN 07/26/21 07/26/21 History cloNIDine HCL [Catapres] 0.05 mg PO TID 07/26/21 07/26/21 History hydroCHLOROthiazide [Hydrodiuril] 12.5 mg PO DAILY 07/26/21 07/26/21 History Amoxic-Pot Clav 875-125Mg 1 tab PO Q12HR 10 Days #20 tab 07/30/21 Rx [Augmentin 875125] Dicyclomine [Bentyl] 10 mg PO TID PRN #90 cap 07/30/21 Rx predniSONE [Deltasone] 40 mg PO DAILY #20 tab 07/30/21 Rx Allergies Allergy/AdvReac Type Severity Reaction Status Date / Time sulfamethoxazole Allergy Itching Verified 07/26/21 23:17 [From Septra] trimethoprim [From Septra] Allergy Itching Verified 07/26/21 23:17 levofloxacin [From Levaquin] AdvReac Muscle Pain Verified 07/26/21 23:17 nitrofurantoin AdvReac Unknown Verified 07/26/21 23:17 [From Macrobid] Surgical - Exam Vital Signs Temp Pulse Resp BP Pulse Ox 98.4 F 79 16 147/88 97 07/26/21 17:13 07/26/21 17:13 07/26/21 17:13 07/26/21 17:13 07/26/21 17:13 Genitals a pleasant cooperative female in no acute distress. HEENT is no cephalic atraumatic, poor dentition. Heart appears regular in rate and rhythm. Lungs are clear bilaterally. Abdomen is soft, obese, slightly tender to palpati on left lower quadrant although decreased tenderness when patient seems distracted. Bilateral lower extremities with above-knee amputations. Clean and dry. Warm. Difficult to palpate femoral pulses. Results Computed tomography scan is reviewed. Noncontrasted however no apparent ischemic changes to the bowel noted - Labs 07/28/21 12:55 07/28/21 12:55 Microbiology - Last 24 Hours (Table) 07/28/21 11:30 Stool Culture - Preliminary Stool 07/26/21 19:42 Blood Culture - Preliminary Blood No Growth after 72 hours Assessment and Plan Assessment: Abnormal CT Small-caliber aorta the infrarenal Plan: Is likely that the aorta is smaller in size due to a congenital defect or that because she had her above-knee potations bilaterally when she was 6 years old, she did not develop her arterial system as robustly. I do not believe there is any significant benefit of getting a CT angiogram at this point. The bowel itself appears healthy, no concerns for this Re: General surgical notes. There is no surgical 6 for this congenital appearing aorta only supportive care for subsequent issues that may arise. This is discussed with the primary physician.
== END 2021-07-30 16:15 | disposition home or self-care (01) | DRG 392 ==
LOC: EC 16:06 → 6NMEDSUR 07-27 01:44 → OBSVTOIN 07-29 09:08
PROVIDERS: ADMIT Internal Medicine; ATTEND Internal Medicine
PROC: 05HF33Z Insertion of Infusion Device into Left Cephalic Vein, Percutaneous Approach (ICD-10-PCS; principal; 2021-07-28 14:25)
DX: R10.9 Unspecified abdominal pain (principal); K57.92 Diverticulitis of intestine, part unspecified, without perforation or abscess without bleeding; N13.2 Hydronephrosis with renal and ureteral calculous obstruction; E11.9 Type 2 diabetes mellitus without complications; I48.0 Paroxysmal atrial fibrillation; E78.5 Hyperlipidemia, unspecified; F17.210 Nicotine dependence, cigarettes, uncomplicated; Z20.822 Contact with and (suspected) exposure to COVID-19; I10 Essential (primary) hypertension; R32 Unspecified urinary incontinence; Q65.89 Other specified congenital deformities of hip; F41.9 Anxiety disorder, unspecified; K58.9 Irritable bowel syndrome, unspecified; I25.10 Atherosclerotic heart disease of native coronary artery without angina pectoris; G89.4 Chronic pain syndrome; H91.90 Unspecified hearing loss, unspecified ear; Z79.01 Long term (current) use of anticoagulants; Z79.1 Long term (current) use of non-steroidal anti-inflammatories (NSAID); Z79.82 Long term (current) use of aspirin; Z79.84 Long term (current) use of oral hypoglycemic drugs; Z79.899 Other long term (current) drug therapy; Z86.73 Personal history of transient ischemic attack (TIA), and cerebral infarction without residual deficits; Z87.440 Personal history of urinary (tract) infections; Z89.611 Acquired absence of right leg above knee; Z89.612 Acquired absence of left leg above knee; Z87.442 Personal history of urinary calculi; Z87.19 Personal history of other diseases of the digestive system; Z88.8 Allergy status to other drugs, medicaments and biological substances; Z88.1 Allergy status to other antibiotic agents; Z88.2 Allergy status to sulfonamides; Z90.5 Acquired absence of kidney; Z90.710 Acquired absence of both cervix and uterus; Z90.49 Acquired absence of other specified parts of digestive tract
CPT/HCPCS: 36410; 36415; 71046; 74018; 74176; 74177; 74270; 76937; 80053; 81003; 82150; 83605; 83690; 84484; 85025; 85610; 85652; 85730; 86140; 87040; 87045; 87046; 87324; 87635; 94640; 96374; 96375; 99285

== ENCOUNTER 2021-09-06 09:54 | Emergency (ER) | payer OTHER ==
--- NOTE | 2021-09-06 09:58 | ED ---
General Adult HPI - General Stated complaint: Rt shoulder injury Time Seen by Provider: 09/06/21 09:56 - History of Present Illness Initial comments: 66-year-old female presents to the emergency room for a chief complaint of right shoulder pain. Patient has chronic right shoulder pain. About 3 days ago she was trying to get out of bed and fell on the right shoulder. This worsened her pain. She did not hit her head. She did not sustain a loss of consciousness. She states that she can lift her arm without pain or difficulty but has pain when she puts weight on the shoulder. Patient states she has had a steroid injection in that shoulder in the past with orthopedics. States her primary care doctor was considering sending her to a shoulder specialist.Patient has no other complaints at this time including shortness of breath, chest pain, ab dominal pain, nausea or vomiting, headache, or visual changes. - Related Data Home Medications Medication Instructions Recorded Confirmed ALPRAZolam [Xanax] 0.5 mg PO BID 01/20/19 07/26/21 Atorvastatin Calcium [Lipitor] 80 mg PO HS 12/25/19 07/26/21 Baclofen [Lioresal] 10 mg PO TID 12/25/19 07/26/21 Ondansetron Odt [Zofran ODT] 8 mg PO Q8HR PRN 12/25/19 07/26/21 Valsartan [Diovan] 320 mg PO DAILY 12/25/19 07/26/21 busPIRone HCl [Buspar] 10 mg PO TID 12/25/19 07/26/21 Aspirin EC [Ecotrin Low Dose] 81 mg PO DAILY 03/20/20 07/26/21 amLODIPine [Norvasc] 5 mg PO BID 03/27/20 07/26/21 Pantoprazole Sodium [Protonix] 40 mg PO DAILY 08/28/20 07/26/21 HYDROcodone/APAP 10-325MG [[place] 1 tab PO QID 12/10/20 07/26/21 10-325] carvediloL [Coreg] 6.25 mg PO BID-W/MEALS 04/08/21 07/26/21 Ipratropium-Albuterol Nebulize 3 ml INHALATION RT-QID PRN 07/26/21 07/26/21 [Duoneb 0.5 mg-3 mg/3 ml Soln] Melatonin 10 mg PO HS 07/26/21 07/26/21 bisacodyL [Dulcolax] 10 mg PO DAILY PRN 07/26/21 07/26/21 cloNIDine HCL [Catapres] 0.05 mg PO TID 07/26/21 07/26/21 hydroCHLOROthiazide [Hydrodiuril] 12.5 mg PO DAILY 07/26/21 07/26/21 Previous Rx's Medication Instructions Recorded Apixaban [Eliquis] 5 mg PO BID #60 tab 12/12/20 Amoxic-Pot Clav 875-125Mg 1 tab PO Q12HR 10 Days #20 tab 07/30/21 [Augmentin 875-125] Dicyclomine [Bentyl] 10 mg PO TID PRN #90 cap 07/30/21 predniSONE [Deltasone] 40 mg PO DAILY #20 tab 07/30/21 Allergies Allergy/AdvReac Type Severity Reaction Status Date / Time sulfamethoxazole Allergy Itching Verified 09/06/21 09:58 [From Septra] trimethoprim [From Septra] Allergy Itching Verified 09/06/21 09:58 levofloxacin [From Levaquin] AdvReac Muscle Pain Verified 09/06/21 09:58 nitrofurantoin AdvReac Unknown Verified 09/06/21 09:58 [From Macrobid] Review of Systems ROS Statement: Those systems with pertinent positive or pertinent negative responses have been documented in the HPI. ROS Other: All systems not noted in ROS Statement are negative. Past Medical History Past Medical History: Atrial Fibrillation, Coronary Artery Disease (CAD), CVA/TIA, GERD/Reflux, Hyperlipidemia, Hypertension Additional Past Medical History / Comment(s): hx urinary retention, Nephrolithiasis, recurrent UTI, double amputation lower extremities, aka. small cyst on kidney, pt states no longer diabetic, right kidney removal. 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 Right kidney removal july 2020 Past Anesthesia/Blood Transfusion Reactions: No Reported Reaction Additional Past Anesthesia/Blood Transfusion Reaction / Comment(s): Pt received blood in 1978-no reaction reported. Past Psychological History: Anxiety Additional Psychological History / Comment(s): She is independent. She in a bilateral AKA and gets around in a power wheelchair. She has a hospital bed. She no longer drives but takes the bus. Smoking Status: Current some day smoker Past Alcohol Use History: None Reported Additional Past Alcohol Use History / Comment(s): Pt states she started smoking at age 18 yrs and the amount she smokes varies.Smoke a pack in two days Past Drug Use History: None Reported - Past Family History Father Family Medical History: Cancer, Myocardial Infarction ([place]) Additional Family Medical History / Comment(s): Father had lung cancer-went into remission. He of a massive [place] in his 60's Mother Family Medical History: Cancer Additional Family Medical History / Comment(s): Mother of lung cancer at age 54 yrs. General Exam General appearance: alert, in no apparent distress Head exam: Present: atraumatic Eye exam: Present: normal appearance, PERRL, EOMI. Absent: scleral icterus, conjunctival injection, nystagmus ENT exam: Present: normal exam, mucous membranes moist Neck exam: Present: normal inspection, full ROM. Absent: tenderness Respiratory exam: Present: normal lung sounds bilaterally. Absent: respiratory distress, wheezes Cardiovascular Exam: Present: regular rate, normal rhythm, normal heart sounds GI/Abdominal exam: Present: soft, normal bowel sounds. Absent: distended, tenderness Extremities exam: Present: full ROM (Full range of motion in the right shoulder.), normal capillary refill (Capillary refill less than 2 seconds, radial pulse 2+ right shoulder.), other (Sensation intact right upper extremity. No ecchymosis or signs of trauma.). Absent: tenderness Neurological exam: Present: alert Course Vital Signs 09/06/21 09:58 Temperature 98 F Pulse Rate 80 Respiratory 16 Rate Blood Pressure 170/83 O2 Sat by Pulse 99 Oximetry Medical Decision Making - Medical Decision Making Patient had an MRI of the right shoulder at the end of June. 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 There is also thickening of the supraspinatus tendon consistent with tendinitis. No full- thickness tear is seen. Vitals are stable. Patient is well-appearing. Full range of motion of the right shoulder. Pain is elicited when she tries to lift herself with her right arm. X-ray shows no acute fracture or dislocation in the right shoulder. At this time patient can be discharged home to follow up with primary care or she will return here for any worsening. Disposition Clinical Impression: Shoulder pain, right Disposition: HOME SELF-CARE Condition: Good Instructions (If sedation given, give patient instructions): Shoulder Pain (ED) Additional Instructions: Please follow-up with your doctor or orthopedics. Return to the emergency room for any worsening symptoms. Is patient prescribed a controlled substance at d/c from ED?: No Referrals: Arvin Aburto MD [Primary Care Provider] - 1-2 days Loc Mora DO [Doctor of Osteopathic Medicine] - 1-2 days Time of Disposition: 10:35
[2021-09-06 10:05] VITALS: BP 170/83; PULSE 80; RESP 16; TEMP 98
--- NOTE | 2021-09-06 10:20 | XR ---
EXAMINATION TYPE: XR shoulder complete RT DATE OF EXAM: 09/06/2021 CLINICAL HISTORY: Pain after falling injury TECHNIQUE: Three views of the right shoulder are obtained. COMPARISON: None. FINDINGS: There is no acute fracture/dislocation evident in the right shoulder. Moderate narrowing g lenohumeral joint with prominent spur medially near the head neck junction. Mild narrowing acromiocla vicular joint. Distal acromion morphology unremarkable. Osseous structures are demineralized The vis ualized ribs are intact . Partial visualization of surgical change in the cervical spine IMPRESSION: There is no acute fracture or dislocation in the right shoulder.
== END 2021-09-06 13:08 | disposition home or self-care (01) ==
LOC: EC 09:54
DX: M25.511 Pain in right shoulder (principal); I10 Essential (primary) hypertension; I48.91 Unspecified atrial fibrillation; I25.10 Atherosclerotic heart disease of native coronary artery without angina pectoris; E78.5 Hyperlipidemia, unspecified; K21.9 Gastro-esophageal reflux disease without esophagitis; F41.9 Anxiety disorder, unspecified; F17.200 Nicotine dependence, unspecified, uncomplicated; Z79.52 Long term (current) use of systemic steroids; Z79.51 Long term (current) use of inhaled steroids; Z79.01 Long term (current) use of anticoagulants; Z79.82 Long term (current) use of aspirin; Z79.899 Other long term (current) drug therapy; W06.XXXA Fall from bed, initial encounter
CPT/HCPCS: 99284

== ENCOUNTER 2021-11-28 11:29 | Emergency (ER) | payer OTHER ==
[2021-11-28 11:40] VITALS: BP 179/101; PULSE 94; RESP 18; TEMP 98.9
[2021-11-28] MEDS ORDERED: HYDROmorphone 0.5 MG/0.5 ML SYRINGE IVP STA (12:08)
[2021-11-28] MEDS ORDERED: SODIUM CHLORIDE 0.9% 500 ML 500 ML IV ONE (12:08)
[2021-11-28] MEDS ORDERED: PANTOPRAZOLE 40 MG/10 ML VIAL IVP STA (12:08)
[2021-11-28 12:22] LABS: INR 1.1 (<1.2); Partial Thromboplastin Time 28.8 sec (22.0-30.0); Prothrombin Time 11.5 sec (9.0-12.0)
[2021-11-28] MEDS ORDERED: ONDANSETRON 4 MG/2 ML VIAL IVP STA (12:24)
[2021-11-28 12:26] LABS: Basophils # (A) 0.1 k/uL (0-0.2); Basophils % (A) 1 %; Eosinophils # (A) 0.1 k/uL (0-0.7); Eosinophils % (A) 1 %; HCT 45.7 % (34.0-46.0); HGB 15.1 gm/dL (11.4-16.0); Lymphocytes # (A) 2.5 k/uL (1.0-4.8); Lymphocytes % (A) 20 %; MCH 30.4 pg (25.0-35.0); Mean Platelet Volume 8.1; Monocytes # (A) 0.6 k/uL (0-1.0); Monocytes % (A) 5 %; Neutrophils # (A) 8.9 k/uL (1.3-7.7); Neutrophils % (A) 72 %; Platelet Count 380 k/uL (150-450); RBC 4.97 m/uL (3.80-5.40); RDW 13.3 % (11.5-15.5); WBC 12.4 k/uL (3.8-10.6)
[2021-11-28 12:32] LABS: ALT 21 U/L (4-34); AST 23 U/L (14-36); African American GFR (CKD) >90 (>60 ml/min/1.73 sqM); Albumin 3.9 g/dL (3.5-5.0); Alkaline Phosphatase 118 U/L (38-126); Anion Gap 9 mmol/L; Blood Urea Nitrogen 16 mg/dL (7-17); Calcium 9.1 mg/dL (8.4-10.2); Carbon Dioxide 20 mmol/L (22-30); Chloride 112 mmol/L (98-107); Glucose 120 mg/dL (74-99); Non-African American GFR(CKD) >90 (>60 ml/min/1.73 sqM); Potassium 3.5 mmol/L (3.5-5.1); Sodium 141 mmol/L (137-145); Total Bilirubin 0.7 mg/dL (0.2-1.3); Total Protein 6.9 g/dL (6.3-8.2)
--- NOTE | 2021-11-28 13:32 | ED ---
General Adult HPI - General Chief complaint: GI Bleed Stated complaint: GI Bleed Time Seen by Provider: 11/28/21 11:37 Source: patient, EMS, RN notes reviewed, old records reviewed Mode of arrival: EMS Limitations: no limitations - History of Present Illness Initial comments: 66-year-old female presenting with diarrhea and dark-colored stool. Patient was concerned this could be related to bleeding. Patient does report some lower abdominal pain which is chronic and unchanged from baseline. No reported fevers. She's had nausea without vomiting. - Related Data Home Medications Medication Instructions Recorded Confirmed ALPRAZolam [Xanax] 0.5 mg PO BID 01/20/19 11/28/21 Atorvastatin Calcium [Lipitor] 80 mg PO HS 12/25/19 11/28/21 Baclofen [Lioresal] 10 mg PO TID 12/25/19 11/28/21 Ondansetron Odt [Zofran ODT] 8 mg PO Q8HR PRN 12/25/19 11/28/21 Valsartan [Diovan] 320 mg PO DAILY 12/25/19 11/28/21 busPIRone HCl [Buspar] 10 mg PO TID 12/25/19 11/28/21 Aspirin EC [Ecotrin Low Dose] 81 mg PO DAILY 03/20/20 11/28/21 amLODIPine [Norvasc] 5 mg PO BID 03/27/20 11/28/21 Pantoprazole Sodium [Protonix] 40 mg PO DAILY 08/28/20 11/28/21 HYDROcodone/APAP 10-325MG [[place] 1 tab PO QID 12/10/20 11/28/21 10-325] carvediloL [Coreg] 6.25 mg PO BID-W/MEALS 04/08/21 11/28/21 Ipratropium-Albuterol Nebulize 3 ml INHALATION RT-QID PRN 07/26/21 11/28/21 [Duoneb 0.5 mg-3 mg/3 ml Soln] bisacodyL [Dulcolax] 10 mg PO DAILY PRN 07/26/21 11/28/21 cloNIDine HCL [Catapres] 0.05 mg PO TID 07/26/21 11/28/21 Acetaminophen/Diphenhydramine 2 tab PO HS 11/28/21 11/28/21 [Tylenol PM 500-25mg] Escitalopram Oxalate [Lexapro] 10 mg PO DAILY 11/28/21 11/28/21 Lidocaine 5% Oint [Xylocaine 5% 1 applic TOPICAL QID 11/28/21 11/28/21 Oint] Previous Rx's Medication Instructions Recorded Apixaban [Eliquis] 5 mg PO BID #60 tab 12/12/20 Dicyclomine [Bentyl] 10 mg PO TID PRN #90 cap 07/30/21 Allergies Allergy/AdvReac Type Severity Reaction Status Date / Time sulfamethoxazole Allergy Itching Verified 09/06/21 09:58 [From Septra] trimethoprim [From Septra] Allergy Itching Verified 09/06/21 09:58 levofloxacin [From Levaquin] AdvReac Muscle Pain Verified 09/06/21 09:58 nitrofurantoin AdvReac Unknown Verified 09/06/21 09:58 [From Macrobid] Review of Systems ROS Statement: Those systems with pertinent positive or pertinent negative responses have been documented in the HPI. ROS Other: All systems not noted in ROS Statement are negative. Past Medical History Past Medical History: Atrial Fibrillation, Coronary Artery Disease (CAD), CVA/TIA, GERD/Reflux, Hyperlipidemia, Hypertension Additional Past Medical History / Comment(s): hx urinary retention, Nephrolith iasis, recurrent UTI, double amputation lower extremities, aka. small cyst on kidney, pt states no longer diabetic, right kidney removal. 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 Right kidney removal july 2020 Past Anesthesia/Blood Transfusion Reactions: No Reported Reaction Additional Past Anesthesia/Blood Transfusion Reaction / Comment(s): Pt received blood in 1978-no reaction reported. Past Psychological History: Anxiety Additional Psychological History / Comment(s): She is independent. She in a bilateral AKA and gets around in a power wheelchair. She has a hospital bed. She no longer drives but takes the bus. Smoking Status: Current some day smoker Past Alcohol Use History: None Reported Additional Past Alcohol Use History / Comment(s): Pt states she started smoking at age 18 yrs and the amount she smokes varies.Smoke a pack in two days Past Drug Use History: None Reported - Past Family History Father Family Medical History: Cancer, Myocardial Infarction ([place]) Additional Family Medical History / Comment(s): Father had lung cancer-went into remission. He of a massive [place] in his 60's Mother Family Medical History: Cancer Additional Family Medical History / Comment(s): Mother of lung cancer at age 54 yrs. General Exam General appearance: alert, in no apparent distress Head exam: Present: atraumatic, normocephalic Eye exam: Present: normal appearance, PERRL ENT exam: Present: normal exam Neck exam: Present: normal inspection. Absent: tenderness, meningismus Respiratory exam: Present: normal lung sounds bilaterally. Absent: respiratory distress, wheezes Cardiovascular Exam: Present: regular rate, normal rhythm GI/Abdominal exam: Present: soft, tenderness (Mild lower abdominal tenderness.). Absent: distended Rectal exam: Present: normal inspection, normal rectal tone. Absent: black stool, bloody stool Extremities exam: Present: other (Bilateral [id number] of dictation) Back exam: Present: normal inspection Neurological exam: Present: alert, oriented X3, CN II-XII intact Psychiatric exam: Present: normal affect, normal mood Course Vital Signs 11/28/21 11:34 Temperature 98.9 F Pulse Rate 94 Respiratory 18 Rate Blood Pressure 179/101 O2 Sat by Pulse 95 Oximetry Medical Decision Making - Medical Decision Making 66-year-old female with diarrhea and dark stool, concern for GI bleed. Patient has no melena, no active bleeding. Hemoglobin is 15.1. She has a mild valery kocytosis. I did send stool sample which was occult negative. Patient is stable for close follow-up with her primary care physician. Return parameters discussed. - Lab Data Result diagrams: 11/28/21 11:51 11/28/21 11:51 Lab Results 11/28/21 11/28/21 11/28/21 Range/Units 11:51 11:51 11:51 WBC 12.4 H (3.8-10.6) k/uL RBC 4.97 (3.80-5.40) m/uL Hgb 15.1 (11.4-16.0) gm/dL Hct 45.7 (34.0-46.0) % MCV 92.0 (80.0-100.0) fL MCH 30.4 (25.0-35.0) pg MCHC 33.0 (31.0-37.0) g/dL RDW 13.3 (11.5-15.5) % Plt Count 380 (150-450) k/uL MPV 8.1 Neutrophils % 72 % Lymphocytes % 20 % Monocytes % 5 % Eosinophils % 1 % Basophils % 1 % Neutrophils # 8.9 H (1.3-7.7) k/uL Lymphocytes # 2.5 (1.0-4.8) k/uL Monocytes # 0.6 (0-1.0) k/uL Eosinophils # 0.1 (0-0.7) k/uL Basophils # 0.1 (0-0.2) k/uL PT 11.5 (9.0-12.0) sec INR 1.1 (<1.2) APTT 28.8 (22.0-30.0) sec Sodium 141 (137-145) mmol/L Potassium 3.5 (3.5-5.1) mmol/L Chloride 112 H (98-107) mmol/L Carbon Dioxide 20 L (22-30) mmol/L Anion Gap 9 mmol/L BUN 16 (7-17) mg/dL Creatinine 0.63 (0.52-1.04) mg/dL Est GFR (CKD-EPI)AfAm >90 (>60 ml/min/1.73 sqM) Est GFR (CKD-EPI)NonAf >90 (>60 ml/min/1.73 sqM) Glucose 120 H (74-99) mg/dL Plasma Lactic Acid Joshua (0.7-2.0) mmol/L Calcium 9.1 (8.4-10.2) mg/dL Total Bilirubin 0.7 (0.2-1.3) mg/dL AST 23 (14-36) U/L ALT 21 (4-34) U/L Alkaline Phosphatase 118 (38-126) U/L Total Protein 6.9 (6.3-8.2) g/dL Albumin 3.9 (3.5-5.0) g/dL Stool Occult Blood (Negative) Blood Type Blood Type Recheck Bld Type Recheck Status Antibody Screen Spec Expiration Date 11/28/21 11/28/21 11/28/21 Range/Units 11:51 11:51 12:22 WBC (3.8-10.6) k/uL RBC (3.80-5.40) m/uL Hgb (11.4-16.0) gm/dL Hct (34.0-46.0) % MCV (80.0-100.0) fL MCH (25.0-35.0) pg MCHC (31.0-37.0) g/dL RDW (11.5-15.5) % Plt Count (150-450) k/uL MPV Neutrophils % % Lymphocytes % % Monocytes % % Eosinophils % % Basophils % % Neutrophils # (1.3-7.7) k/uL Lymphocytes # (1.0-4.8) k/uL Monocytes # (0-1.0) k/uL Eosinophils # (0-0.7) k/uL Basophils # (0-0.2) k/uL PT (9.0-12.0) sec INR (<1.2) APTT (22.0-30.0) sec Sodium (137-145) mmol/L Potassium (3.5-5.1) mmol/L Chloride (98-107) mmol/L Carbon Dioxide (22-30) mmol/L Anion Gap mmol/L BUN (7-17) mg/dL Creatinine (0.52-1.04) mg/dL Est GFR (CKD-EPI)AfAm (>60 ml/min/1.73 sqM) Est GFR (CKD-EPI)NonAf (>60 ml/min/1.73 sqM) Glucose (74-99) mg/dL Plasma Lactic Acid Joshua 0.9 (0.7-2.0) mmol/L Calcium (8.4-10.2) mg/dL Total Bilirubin (0.2-1.3) mg/dL AST (14-36) U/L ALT (4-34) U/L Alkaline Phosphatase (38-126) U/L Total Protein (6.3-8.2) g/dL Albumin (3.5-5.0) g/dL Stool Occult Blood Negative (Negative) Blood Type O Positive Blood Type Recheck O Pos Bld Type Recheck Status No Antibody Screen NEGATIVE Spec Expiration Date 12/01/20212350 Disposition Clinical Impression: Diarrhea Disposition: HOME SELF-CARE Condition: Fair Instructions (If sedation given, give patient instructions): Acute Diarrhea (ED) Is patient prescribed a controlled substance at d/c from ED?: No Referrals: Pavel Spaulding MD [Primary Care Provider] - 1-2 days Time of Disposition: 13:31
[2021-11-28] MEDS ORDERED: MORPHINE SULFATE 4 MG/ML SYRINGE IVP STA (13:35)
== END 2021-11-28 14:15 | disposition home or self-care (01) ==
LOC: EC 11:29
DX: R19.7 Diarrhea, unspecified (principal); I10 Essential (primary) hypertension; I25.10 Atherosclerotic heart disease of native coronary artery without angina pectoris; Z86.73 Personal history of transient ischemic attack (TIA), and cerebral infarction without residual deficits; K21.9 Gastro-esophageal reflux disease without esophagitis; Z79.83 Long term (current) use of bisphosphonates; Z79.82 Long term (current) use of aspirin; F17.200 Nicotine dependence, unspecified, uncomplicated; Z82.49 Family history of ischemic heart disease and other diseases of the circulatory system; Z88.2 Allergy status to sulfonamides; Z88.1 Allergy status to other antibiotic agents
CPT/HCPCS: 36415; 86900; 86901; 80053; 83605; 85025; 85610; 85730; 86850; 82272; 99285; 96374; 96375; J2270; J2405; C9113; J1170

== ENCOUNTER 2022-05-18 14:45 | Observation (INO) | payer OTHER ==
[2022-05-18] MEDS ORDERED: PEG 3350 (236 GM/BTL) + LYTES 4,000 ML BOTTLE PO ONE (17:00)
[2022-05-18] MEDS ORDERED: bisacodyL 5 MG TABLET.DR PO PRN (18:18)
[2022-05-18] MEDS ORDERED: ALPRAZolam 0.5 MG TAB PO PRN (18:18)
[2022-05-18] MEDS ORDERED: IPRATROPIUM-ALBUTEROL 3 ML NEB INHALATION PRN (18:18)
[2022-05-18] MEDS ORDERED: ONDANSETRON ODT 8 MG TAB.RAPDIS PO PRN (18:18)
[2022-05-18] MEDS: DICYCLOMINE 10 MG CAP PO SCH (20:29)
[2022-05-18] MEDS: BACLOFEN 10 MG TAB PO SCH (20:29)
[2022-05-18] MEDS: amLODIPine 5 MG TAB PO SCH (20:29)
[2022-05-18] MEDS: cloNIDine HCL 0.1 MG TAB PO SCH (20:29)
[2022-05-18] MEDS: busPIRone HCl 10 MG TAB PO SCH (20:29)
[2022-05-18] MEDS: HYDROcodone/APAP 10-325MG 1 EACH TAB PO SCH (20:31)
[2022-05-18] MEDS ORDERED: NON FORMULARY DRUG (Acetaminophen/Diphenhydramine [Tylenol Pm 500-25mg] 1 EACH Tablet) PO SCH (21:00)
[2022-05-18] MEDS ORDERED: ATORVASTATIN 80 MG TAB PO SCH (21:00)
[2022-05-18] MEDS: LIDOCAINE 5% OINTMENT 50 GM JAR TOPICAL SCH (21:46)
[2022-05-18 23:08] VITALS: RESP 18
[2022-05-19] MEDS ORDERED: PANTOPRAZOLE 40 MG TABLET PO SCH (07:30)
[2022-05-19] MEDS ORDERED: carvediloL 6.25 MG TAB PO SCH (07:30)
[2022-05-19] MEDS: LIDOCAINE 5% OINTMENT 50 GM JAR TOPICAL SCH (07:41)
[2022-05-19] MEDS: busPIRone HCl 10 MG TAB PO SCH (07:42)
[2022-05-19] MEDS: BACLOFEN 10 MG TAB PO SCH (07:42)
[2022-05-19] MEDS: DICYCLOMINE 10 MG CAP PO SCH (07:42)
[2022-05-19] MEDS: amLODIPine 5 MG TAB PO SCH (07:43)
[2022-05-19] MEDS: HYDROcodone/APAP 10-325MG 1 EACH TAB PO SCH (07:43)
[2022-05-19] MEDS: cloNIDine HCL 0.1 MG TAB PO SCH (07:44)
[2022-05-19 08:12] VITALS: BP 146/80; PULSE 60; TEMP 98
[2022-05-19] MEDS ORDERED: ASPIRIN 81 MG PO SCH (09:00)
[2022-05-19] MEDS ORDERED: ESCITALOPRAM 10 MG TAB PO SCH (09:00)
[2022-05-19] MEDS ORDERED: VALSARTAN 160 MG TAB PO SCH (09:00)
[2022-05-19] MEDS ORDERED: SODIUM CHLORIDE 0.9% 1,000 ML IV SCH (10:45)
--- NOTE | 2022-05-19 10:46 | P.GSHP ---
History of Present Illness H&P Date: 05/19/22 Chief Complaint: Scheduled EGD/colonoscopy This pleasant 66-year-old female with a past medical history of atrial fibrillation, coronary artery disease GERD hyperlipidemia hypertension and bilateral lower extremity [id number] amputation. Patient has been following up with Dr. Brock in the office for recurrent abdominal pain, some difficulty with swallowing. She is scheduled for elective EGD and colonoscopy. Her last EGD and colonoscopy was done 12/28/2019. At that time it was done for abdominal pain and intermittent nausea and vomiting. Findings revealed mild antral gastritis no evidence of esophagitis or peptic ulcer. Colonoscopy was within normal limits with no evidence of colitis or colorectal neoplasm. Due to her history of bilateral [id number]-yry-[id number] amputation, patient was scheduled to come into the hospital admitted to observation for bowel prep assistance. Patient takes Eliquis for her atrial fibrillation which has been on hold since 05/17/2022. - Review of Systems Comment: REVIEW OF SYSTEMS: CARDIOPULMONARY: No chest pain or shortness of breath. Gastrointestinal: Abdominal pain and cramping. Some nausea, difficulty with swallowing at times. No hematemesis, coffee-ground emesis. No rectal ble eding, or melena. GENITOURINARY: No dysuria or hematuria. MUSCULOSKELETAL: Reports normal range of motion. SKIN: No rashes. No jaundice. ENDOCRINE: No chills, fevers. No excessive weight gain or loss. No polydipsia or polyuria. PSYCHIATRIC: Unremarkable. NEUROLOGY: No change in mental status. Denies dizziness, headache. ENT: Vision unremarkable. CONSTITUTIONAL: No recent weight loss. No fever, chills, night sweats. Past Medical History Past Medical History: Atrial Fibrillation, Coronary Artery Disease (CAD), CVA/TIA, GERD/Reflux, Hyperlipidemia, Hypertension Additional Past Medical History / Comment(s): hx urinary retention, Nephrolithiasis, recurrent UTI, double amputation lower extremities, aka. small cyst on kidney, pt states no longer diabetic, right kidney removal. 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 Right kidney removal july 2020 Past Anesthesia/Blood Transfusion Reactions: No Reported Reaction Additional Past Anesthesia/Blood Transfusion Reaction / Comment(s): Pt received blood in 1978-no reaction reported. Past Psychological History: Anxiety Additional Psychological History / Comment(s): She is independent. She in a bilateral AKA and gets around in a power wheelchair. She has a hospital bed. She no longer drives but takes the bus. Smoking Status: Current some day smoker Past Alcohol Use History: None Reported Additional Past Alcohol Use History / Comment(s): Pt states she started smoking at age 18 yrs and the amount she smokes varies.Smoke a pack in two days Past Drug Use History: None Reported - Past Family History Father Family Medical History: Cancer, Myocardial Infarction ([place]) Additional Family Medical History / Comment(s): Father had lung cancer-went into remission. He of a massive [place] in his 60's Mother Family Medical History: Cancer Additional Family Medical History / Comment(s): Mother of lung cancer at age 54 yrs. Medications and Allergies Home Medications Medication Instructions Recorded Confirmed Type ALPRAZolam [Xanax] 0.5 mg PO BID PRN 01/20/19 05/18/22 History Atorvastatin Calcium [Lipitor] 80 mg PO HS 12/25/19 05/18/22 History Baclofen [Lioresal] 10 mg PO TID 12/25/19 05/18/22 History Ondansetron Odt [Zofran ODT] 8 mg PO Q8HR PRN 12/25/19 05/18/22 History Valsartan [Diovan] 320 mg PO DAILY 12/25/19 05/18/22 History busPIRone HCl [Buspar] 10 mg PO TID 12/25/19 05/18/22 History Aspirin EC [Ecotrin Low Dose] 81 mg PO DAILY 03/20/20 05/18/22 History amLODIPine [Norvasc] 5 mg PO BID 03/27/20 05/18/22 History Pantoprazole Sodium [Protonix] 40 mg PO DAILY 08/28/20 05/18/22 History HYDROcodone/APAP 10-325MG [[place] 1 tab PO QID 12/10/20 05/18/22 History 10-325] Apixaban [Eliquis] 5 mg PO BID #60 tab 12/12/20 05/18/22 Rx carvediloL [Coreg] 6.25 mg PO BID-W/MEALS 04/08/21 05/18/22 History Ipratropium-Albuterol Nebulize 3 ml INHALATION RT-QID PRN 07/26/21 05/18/22 History [Duoneb 0.5 mg-3 mg/3 ml Soln] bisacodyL [Dulcolax] 10 mg PO DAILY PRN 07/26/21 05/18/22 History cloNIDine HCL [Catapres] 0.05 mg PO TID 07/26/21 05/18/22 History Acetaminophen/Diphenhydramine 2 tab PO HS 11/28/21 05/18/22 History [Tylenol PM 500-25mg] Escitalopram Oxalate [Lexapro] 10 mg PO DAILY 11/28/21 05/18/22 History Lidocaine 5% Oint [Xylocaine 5% 1 applic TOPICAL QID 11/28/21 05/18/22 History Oint] Dicyclomine [Bentyl] 10 mg PO TID 05/18/22 05/18/22 History Allergies Allergy/AdvReac Type Severity Reaction Status Date / Time sulfamethoxazole Allergy Itching Verified 05/18/22 16:17 [From Septra] trimethoprim [From Septra] Allergy Itching Verified 05/18/22 16:17 levofloxacin [From Levaquin] AdvReac Muscle Pain Verified 05/18/22 16:17 nitrofurantoin AdvReac Unknown Verified 05/18/22 16:17 [From Macrobid] Surgical - Exam Vital Signs Temp Pulse Resp BP Pulse Ox 98.3 F 58 L 20 104/65 96 05/18/22 15:00 05/18/22 15:00 05/18/22 15:00 05/18/22 15:00 05/18/22 15:00 General appearance: The patient is alert, oriented, appears in no acute distress. HET: Head is normocephalic and atraumatic. Conjunctiva pink. Sclera anicteric. Neck: Supple without lymphadenopathy. Trachea midline. Heart: S1 S2. Regular rate and rhythm. Lungs: Clear to auscultation. Abdomen: Soft, nontender, nondistended with bowel sounds. No guarding or rigidity. Skin: No rashes. No jaundice. Extremities: Normal skin color and turgor. Bilateral [id number]-[id number] amputation. Neurological: No focal deficits. Alert and oriented x3. Assessment and Plan (1) Abdominal pain Narrative/Plan: 66-year-old female with a history of left [id number]-[id number] amputation who had been complaining of abdominal pain for some time now scheduled for elective EGD and colonoscopy. Patient was admitted to observation for bowel prep assistance and scheduled to undergo EGD and colonoscopy. Current Visit: No Status: Acute Code(s): R10.9 - UNSPECIFIED ABDOMINAL PAIN SNOMED Code(s): 13166029 Plan: 1. Bowel prep 2. Hold Eliquis 3. Nothing by mouth after midnight 4. Plan for EGD colonoscopy as scheduled Dr. Ross Brock I agree with the dictator's note, documented as a scribe by Monica Reed.
[2022-05-19] MEDS ORDERED: PROPOFOL 10 MG/ML 20 ML VIAL IV ONE (11:19)
[2022-05-19] MEDS ORDERED: LIDOCAINE 2% INJ 20 MG/ML (2 ML VIAL) ONE (11:19)
[2022-05-19] MEDS ORDERED: SODIUM CHLORIDE 0.9% 1,000 ML IV ONE ×2 (11:24)
--- NOTE | 2022-05-19 11:49 | P.PCN ---
Date of Procedure: 05/19/22 Procedure(s) Performed: Brief history: Patient is a pleasant 66-year-old white female scheduled for an elective upper endoscopy as well as colonoscopy as a part of evaluation of abdominal pain/intermittent nausea vomiting and change in bowel habits for the last 6 months duration. His history of A. fib on the left consistency and hold for the last 2 days. Procedure performed: Esophagogastroduodenoscopy with biopsy Colonoscopy with snare polypectomy Preoperative diagnosis: Abdominal pain/intermittent nausea vomiting Change in bowel habits Anesthesia: MAC Procedure: After informed consent was obtained from the patient was brought into the endoscopy unit and IV sedation was administered by anesthesia under continuous monitoring. Initially upper endoscopy was done. The Olympus GF 160 video endoscope was inserted inserted into the mouth and esophagus intubated without any difficulty and was gradually advanced into the stomach and duodenum and carefully examined. The bulb and second part of the duodenum appeared normal. The scope was then withdrawn into the stomach adequately insufflated with air and upon careful examination the antrum and body, cardia and fundus appeared normal. The scope was then withdrawn into the esophagus. The GE junction was located at 40 cm to the incisors. It appeared regular with no erythema erosions or ulcerations. Rest of the esophagus appeared normal. Patient tolerated the procedure well. At this time the patient continued to remain sedation. Initial digital rectal examination was normal. Olympus CF 160 video colonoscope was then inserted into the rectum and gradually advanced to the cecum without any difficulty. Careful examination was performed as the scope was gradually being withdrawn. The prep was excellent. The cecum, ascending colon, transverse colon, descending colon were normal. The sigmoid colon there was a 5 mm polyp removed by snare polypectomy. Rest of the, sigmoid colon and rectum appeared normal. Retroflexion was performed in the rectum and small internal hemorrhoids were noted. Patient tolerated the procedure well. Impression: 1. Upper Endoscopy revealed diffuse antral erosive gastritis but no evidence of peptic ulcer disease 2. Colonoscopy revealed a 5 mm; sigmoid polyp status post polypectomy and small internal hemorrhoids Recommendations: Findings of this examination were discussed with the patient . At this time and advance as tolerated and she will be discharged home today with outpatient follow-up in 2-3 weeks.
--- NOTE | 2022-05-19 12:03 | P.DS ---
Providers Date of admission: 05/18/22 14:45 Expected date of discharge: 05/19/22 Attending physician: Maricarmen Brock Primary care physician: Pavel Spualding - Discharge Diagnosis(es) (1) Abdominal pain Current Visit: No Status: Acute Hospital Course: 66-year-old female who came in for elective EGD and colonoscopy for complaints of abdominal pain. Patient was brought in for observation unit to undergo assistance with bowel prep as patient is paraplegic. Patient underwent bowel prep yesterday evening. She underwent EGD and colonoscopy today. Findings on EGD of gastritis with biopsy and no evidence of peptic ulcer disease and colonoscopy significant for all internal hemorrhoids small polyp with polypectomy. Patient to call office for Follow-up appointment to go over biopsy results. Dr. Ross Brock I agree with the dictator's note, documented as a scribe by Monica Reed. Procedures: Procedure performed: Esophagogastroduodenoscopy with biopsy Colonoscopy with snare polypectomy Patient Condition at Discharge: Stable Plan - Discharge Summary New Discharge Prescriptions: Continue ALPRAZolam [Xanax] 0.5 mg PO BID PRN PRN Reason: Anxiety Valsartan [Diovan] 320 mg PO DAILY Ondansetron Odt [Zofran ODT] 8 mg PO Q8HR PRN PRN Reason: Nausea And Vomiting busPIRone HCl [Buspar] 10 mg PO TID Baclofen [Lioresal] 10 mg PO TID Atorvastatin Calcium [Lipitor] 80 mg PO HS Aspirin EC [Ecotrin Low Dose] 81 mg PO DAILY amLODIPine [Norvasc] 5 mg PO BID Pantoprazole Sodium [Protonix] 40 mg PO DAILY Apixaban [Eliquis] 5 mg PO BID #60 tab carvediloL [Coreg] 6.25 mg PO BID-W/MEALS Ipratropium-Albuterol Nebulize [Duoneb 0.5 mg-3 mg/3 ml Soln] 3 ml INHALATION RT-QID PRN PRN Reason: Shortness Of Breath cloNIDine HCL [Catapres] 0.05 mg PO TID Acetaminophen/Diphenhydramine [Tylenol PM 500-25mg] 2 tab PO HS Lidocaine 5% Oint [Xylocaine 5% Oint] 1 applic TOPICAL QID Escitalopram Oxalate [Lexapro] 10 mg PO DAILY HYDROcodone/APAP 10-325MG [Castor 10-325] 1 tab PO QID bisacodyL [Dulcolax] 10 mg PO DAILY PRN PRN Reason: Constipation Dicyclomine [Bentyl] 10 mg PO TID Discharge Medication List ALPRAZolam [Xanax] 0.5 mg PO BID PRN 01/20/19 [History] Atorvastatin Calcium [Lipitor] 80 mg PO HS 12/25/19 [History] Baclofen [Lioresal] 10 mg PO TID 12/25/19 [History] Ondansetron Odt [Zofran ODT] 8 mg PO Q8HR PRN 12/25/19 [History] Valsartan [Diovan] 320 mg PO DAILY 12/25/19 [History] busPIRone HCl [Buspar] 10 mg PO TID 12/25/19 [History] Aspirin EC [Ecotrin Low Dose] 81 mg PO DAILY 03/20/20 [History] amLODIPine [Norvasc] 5 mg PO BID 03/27/20 [History] Pantoprazole Sodium [Protonix] 40 mg PO DAILY 08/28/20 [History] HYDROcodone/APAP 10-325MG [Castor 10-325] 1 tab PO QID 12/10/20 [History] Apixaban [Eliquis] 5 mg PO BID #60 tab 12/12/20 [Rx] carvediloL [Coreg] 6.25 mg PO BID-W/MEALS 04/08/21 [History] Ipratropium-Albuterol Nebulize [Duoneb 0.5 mg-3 mg/3 ml Soln] 3 ml INHALATION RT-QID PRN 07/26/21 [History] bisacodyL [Dulcolax] 10 mg PO DAILY PRN 07/26/21 [History] cloNIDine HCL [Catapres] 0.05 mg PO TID 07/26/21 [History] Acetaminophen/Diphenhydramine [Tylenol PM 500-25mg] 2 tab PO HS 11/28/21 [History] Escitalopram Oxalate [Lexapro] 10 mg PO DAILY 11/28/21 [History] Lidocaine 5% Oint [Xylocaine 5% Oint] 1 applic TOPICAL QID 11/28/21 [History] Dicyclomine [Bentyl] 10 mg PO TID 05/18/22 [History] Follow up Appointment(s)/Referral(s): Maricarmen Brock MD [STAFF PHYSICIAN] - 2 Weeks (Please call office for biopsy results) Discharge Disposition: HOME SELF-CARE
== END 2022-05-19 14:46 | disposition home or self-care (01) ==
LOC: 6NMEDSUR 14:45
PROVIDERS: ADMIT Internal Medicine Gastroenterology; ATTEND Internal Medicine Gastroenterology
DX: K63.5 Polyp of colon (principal); K64.8 Other hemorrhoids; K29.50 Unspecified chronic gastritis without bleeding; I48.91 Unspecified atrial fibrillation; I25.10 Atherosclerotic heart disease of native coronary artery without angina pectoris; K21.9 Gastro-esophageal reflux disease without esophagitis; E78.5 Hyperlipidemia, unspecified; I10 Essential (primary) hypertension; F41.9 Anxiety disorder, unspecified; G82.20 Paraplegia, unspecified; F17.200 Nicotine dependence, unspecified, uncomplicated; Z86.73 Personal history of transient ischemic attack (TIA), and cerebral infarction without residual deficits; Z89.612 Acquired absence of left leg above knee; Z89.611 Acquired absence of right leg above knee; Z87.442 Personal history of urinary calculi; Z87.440 Personal history of urinary (tract) infections; Z99.3 Dependence on wheelchair; Z79.01 Long term (current) use of anticoagulants; Z79.899 Other long term (current) drug therapy; Z79.82 Long term (current) use of aspirin; Z88.1 Allergy status to other antibiotic agents; Z88.2 Allergy status to sulfonamides; Z80.1 Family history of malignant neoplasm of trachea, bronchus and lung; Z82.49 Family history of ischemic heart disease and other diseases of the circulatory system
CPT/HCPCS: 88305; 45385; 43239; G0379; G0378 ×2

== ENCOUNTER → 2022-12-23 | Outpatient (CLI) | payer MEDICARE, OTHER ==
--- NOTE | 2022-12-23 14:31 | XR ---
EXAMINATION TYPE: XR shoulder complete RT DATE OF EXAM: 12/23/2022 12:59 PM INDICATION: Patient age:Female; 67 years old; Reason for study: M25.511; COMPARISON: 09/06/2021 TECHNIQUE: The right shoulder was examined in AP, internally rotated and scapular Y projections. FINDINGS: Os acromiale noted. Fixation hardware of the right humerus which appears intact. No evidenc e of acute osseous pathology, joint dislocation, or soft tissue swelling. The remaining portions of t he visualized chest are unremarkable. IMPRESSION: 1. No acute osseous pathology. 2. Post fixation changes of the right humerus. Hardware appears intact. 3. Right os acromiale. Consider further evaluation with MRI.
== END | disposition home or self-care (01) ==
LOC: RADXRMAIN 12:36
PROVIDERS: ATTEND Internal Medicine Geriatric Medicine
DX: M25.511 Pain in right shoulder (principal)

== ENCOUNTER → 2023-06-21 | Outpatient (CLI) | payer MEDICARE, OTHER ==
[2023-06-21 08:58] VITALS: BP 92/65; PULSE 71; RESP 16; TEMP 97.9
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
== END ==
LOC: PNWHC3 07:15
PROVIDERS: ATTEND Specialist
DX: M25.511 Pain in right shoulder (principal); M19.011 Primary osteoarthritis, right shoulder; G57.93 Unspecified mononeuropathy of bilateral lower limbs; M25.411 Effusion, right shoulder; M75.80 Other shoulder lesions, unspecified shoulder; F17.200 Nicotine dependence, unspecified, uncomplicated; Z51.81 Encounter for therapeutic drug level monitoring; Z79.82 Long term (current) use of aspirin; Z88.2 Allergy status to sulfonamides; Z88.1 Allergy status to other antibiotic agents; Z88.6 Allergy status to analgesic agent
CPT/HCPCS: 80307; G0463; 99211

== ENCOUNTER → 2023-09-13 | Outpatient (CLI) | payer MEDICARE, OTHER ==
[2023-09-13 08:34] VITALS: BP 132/62; PULSE 98; RESP 17; TEMP 97.2
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
== END ==
LOC: PNWHC3 07:30
PROVIDERS: ATTEND Specialist
DX: M79.2 Neuralgia and neuritis, unspecified (principal); M75.80 Other shoulder lesions, unspecified shoulder; M19.011 Primary osteoarthritis, right shoulder; M25.411 Effusion, right shoulder; F17.200 Nicotine dependence, unspecified, uncomplicated; Z79.82 Long term (current) use of aspirin; Z88.2 Allergy status to sulfonamides; Z88.1 Allergy status to other antibiotic agents; Z88.6 Allergy status to analgesic agent
CPT/HCPCS: 99211

== ENCOUNTER 2023-09-23 13:05 | Day surgery (SDC) | payer MEDICARE, OTHER ==
[~2023-09-23 13:05] MED LIST: LACTATED RINGERS 1,000 ML IV SCH
[2023-09-23 14:21] VITALS: RESP 16; TEMP 97.6
[2023-09-23] MEDS ORDERED: methylPREDNISolone ACETATE 40 MG/ML 1 ML VIAL ONE (14:37)
[2023-09-23] MEDS ORDERED: ROPIVACAINE 5MG/ML 20ML VIAL ONE (14:37)
--- NOTE | 2023-09-23 14:48 | P.PCN ---
Date of Procedure: 09/23/23 Procedure(s) Performed: Procedure= right shoulder joint intra-articular steroid injection under ultrasound guidance Preoperative diagnosis= 1-right shoulder arthralgia. 2-right shoulder osteoarthritis Postoperative diagnosis=Same as preop Diagnosis . Complication = none Condition= stable Anesthesia= local anesthesia with ropivacaine 0.5% 1 ml only Indication for the procedure= patient complaining of Right shoulder pain , she is scheduled to have right shoulder steroid injection under ultrasound guidance procedure risk and benefit discussed with the patient she agreed with the proceeding, patient taken to the procedure room placed in sitting position the right shoulder area prepped with a chlorhexidine x 3, then using 21 G Pujunk needle, advanced slowly under ultrasound guidance and placed in the right shoulder joint after negative aspiration for heme, total of 10 mL of ropivacaine 0.5% mixed with 40 mg of Depo-Medrol injected in the right shoulder intermittently, she tolerated the procedure well without any complication she will follow-up in the pain clinic in few weeks for reevaluation
[2023-09-23 14:54] VITALS: BP 117/78; PULSE 97
== END 2023-09-23 15:30 | disposition home or self-care (01) ==
LOC: ORPAIN 13:05
PROVIDERS: ATTEND Specialist
DX: M19.011 Primary osteoarthritis, right shoulder (principal); Z79.01 Long term (current) use of anticoagulants; Z79.82 Long term (current) use of aspirin; Z88.2 Allergy status to sulfonamides; Z88.1 Allergy status to other antibiotic agents; Z88.8 Allergy status to other drugs, medicaments and biological substances
CPT/HCPCS: 20611; J1030; J2795

== ENCOUNTER → 2023-12-30 | Outpatient (CLI) | payer MEDICARE, OTHER ==
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
[2023-12-30 14:52] VITALS: BP 126/66; PULSE 72; RESP 15; TEMP 97.4
== END ==
LOC: PNWHC3 13:55
PROVIDERS: ATTEND Specialist
DX: M79.2 Neuralgia and neuritis, unspecified (principal); M75.81 Other shoulder lesions, right shoulder; M19.011 Primary osteoarthritis, right shoulder; M25.411 Effusion, right shoulder; F17.200 Nicotine dependence, unspecified, uncomplicated; Z88.2 Allergy status to sulfonamides; Z88.1 Allergy status to other antibiotic agents; Z88.6 Allergy status to analgesic agent
CPT/HCPCS: 99211

== ENCOUNTER → 2023-12-30 | Outpatient (CLI) | payer MEDICARE, OTHER ==
[2023-12-31 13:13] LABS: Serum Amphetamine Negative; Serum Barbiturates Negative; Serum Benzodiazepine Negative; Serum Cocaine Negative; Serum Methadone Negative; Serum Opiates Positive; Serum Phencyclidine Negative; Serum Propoxyphene Negative; Serum THC (Cannabis) Negative
== END | disposition home or self-care (01) ==
LOC: LABWHC1 14:48
PROVIDERS: ATTEND Physician Assistant Medical
DX: Z02.83 Encounter for blood-alcohol and blood-drug test (principal)
CPT/HCPCS: 36415; 80307

== ENCOUNTER → 2024-06-02 | Outpatient (CLI) | payer MEDICARE, OTHER ==
[2024-06-03 02:30] LABS: Basophils # (A) 0.04 X 10*3/uL (0.00-0.10); Basophils % (A) 0.3 %; Eosinophils # (A) 0.09 X 10*3/uL (0.04-0.35); Eosinophils % (A) 0.6 %; HGB 14.2 g/dL (12.0-15.0); Lymphocytes # (A) 4.08 X 10*3/uL (0.90-5.00); MCH 28.5 pg (27.0-32.0); MCHC 31.6 g/dL (32.0-37.0); MCV 90.4 FL (80.0-97.0); Mean Platelet Volume 10.3 FL (9.5-12.2); Monocytes # (A) 0.78 X 10*3/uL (0.20-1.00); Monocytes % (A) 5.6 %; NRBC Per 100 WBC 0 X 10*3/uL (0.00-0.01); Neutrophils # (A) 8.96 X 10*3/uL (1.80-7.70); Neutrophils % (A) 63.8 %; Platelet Count 335 X 10*3/uL (140-440); RBC 4.98 X 10*6/uL (4.10-5.20); RDW 15.6 % (11.5-14.5); WBC 14.05 X 10*3/uL (4.50-10.00)
[2024-06-03 03:28] LABS: ALT 18 U/L (8-44); AST 18 U/L (13-35); Albumin 3.6 g/dL (3.8-4.9); Albumin/Globulin Ratio 1.64 Ratio (1.60-3.17); Alkaline Phosphatase 78 U/L (41-126); BUN/Creat Ratio 37.67 Ratio (12.00-20.00); Blood Urea Nitrogen 22.6 mg/dL (9.0-27.0); Calcium 8.7 mg/dL (8.7-10.3); Carbon Dioxide 23.6 mmol/L (21.6-31.8); Chloride 103 mmol/L (96-109); Globulin 2.2 g/dL (1.6-3.3); Glucose 100 mg/dL (70-110); Magnesium 1.8 mg/dL (1.5-2.4); Potassium 4.7 mmol/L (3.5-5.5); Sodium 137 mmol/L (135-145); Total Bilirubin <0.2 mg/dL (0.3-1.2); Total Protein 5.8 g/dL (6.2-8.2)
== END | disposition home or self-care (01) ==
LOC: LABWHC1 15:33
PROVIDERS: ATTEND Internal Medicine Geriatric Medicine
DX: E78.5 Hyperlipidemia, unspecified (principal); R94.6 Abnormal results of thyroid function studies; E83.42 Hypomagnesemia
CPT/HCPCS: 36415; 80053; 83735; 84439; 84443; 84481; 85025

== ENCOUNTER → 2024-06-02 | Outpatient (CLI) | payer MEDICARE, OTHER ==
--- NOTE | 2024-06-02 16:51 | US ---
EXAMINATION TYPE: US thyroid st tissue head/neck DATE OF EXAM: 06/02/2024 COMPARISON: NONE CLINICAL INDICATION: Female, 68 years old with history of R59.1 LYMPHADENOPATHY; Patient has felt lum p in the left side of the neck x a couple days. TECHNIQUE: Scanned left neck at area of concern with grayscale and color Doppler imaging. FINDINGS: Scanned left submandibular area and just inferior. Hypoechoic area with hyperechoic center seen: 1.0 x 1.2 x 0.4 cm- IMPRESSION: No suspicious mass or lymphadenopathy. Normal-appearing lymph nodes. [facility], , 06/02/2024 4:48 PM
== END | disposition home or self-care (01) ==
LOC: RADUSWWP 15:33
PROVIDERS: ATTEND Internal Medicine Geriatric Medicine
DX: R22.1 Localized swelling, mass and lump, neck (principal)
CPT/HCPCS: 76536

== ENCOUNTER 2024-06-21 11:23 | Inpatient (IN) | payer MEDICARE, OTHER ==
[2024-06-21 13:06] LABS: Anisocytosis Slight; Basophils # (A) 0.1 k/uL (0-0.2); Basophils % (A) 0 %; Eosinophils # (A) 0.1 k/uL (0-0.7); Eosinophils % (A) 0 %; HCT 48.4 % (34.0-46.0); HGB 15.7 gm/dL (11.4-16.0); Lymphocytes # (A) 2.5 k/uL (1.0-4.8); Lymphocytes % (A) 22 %; MCH 29.1 pg (25.0-35.0); MCHC 32.4 g/dL (31.0-37.0); MCV 89.9 fL (80.0-100.0); Mean Platelet Volume 7.4; Monocytes # (A) 0.5 k/uL (0-1.0); Monocytes % (A) 4 %; Neutrophils # (A) 8.3 k/uL (1.3-7.7); Neutrophils % (A) 71 %; Platelet Count 380 k/uL (150-450); RBC 5.38 m/uL (3.80-5.40); WBC 11.6 k/uL (3.8-10.6)
[2024-06-21 13:19] LABS: ALT 22 U/L (4-34); AST 26 U/L (14-36); African American GFR (CKD) >90 (>60 ml/min/1.73 sqM); Albumin 3.7 g/dL (3.5-5.0); Alkaline Phosphatase 91 U/L (38-126); Anion Gap 9 mmol/L; Blood Urea Nitrogen 21 mg/dL (7-17); Calcium 9.2 mg/dL (8.4-10.2); Carbon Dioxide 22 mmol/L (22-30); Chloride 109 mmol/L (98-107); Glucose 109 mg/dL (74-99); Magnesium 1.6 mg/dL (1.6-2.3); Non-African American GFR(CKD) >90 (>60 ml/min/1.73 sqM); Potassium 4.7 mmol/L (3.5-5.1); Sodium 140 mmol/L (137-145); Total Bilirubin 0.5 mg/dL (0.2-1.3); Total Protein 6.7 g/dL (6.3-8.2)
--- NOTE | 2024-06-21 13:26 | ED ---
Recheck HPI - General Chief Complaint: Recheck/Abnormal Lab/Rx Stated Complaint: high BP/chest tightness Time Seen by Provider: 06/21/24 12:00 Source: patient, RN notes reviewed Mode of arrival: ambulatory Limitations: no limitations - History of Present Illness Initial Comments: This is a 69-year-old female who presents to the emergency department for e levated blood pressure. Patient was at the pain clinic this morning and when they took her blood pressure they noted to be in the 190s systolically and sent the patient here for evaluation. Patient reports chest pressure over the last couple of days. Denies any shortness of breath. She was told that at one point she may have had a heart attack, however she denies any stents. She does follow with Dr. Prescott, cardiology. Also reports a headache. She has been compliant with her BP medication. - Related Data Home Medications Medication Instructions Recorded Confirmed ALPRAZolam [Xanax] 0.5 mg PO BID PRN 01/20/19 06/21/24 busPIRone HCl [Buspar] 10 mg PO TID 12/25/19 06/21/24 Pantoprazole Sodium [Protonix] 40 mg PO DAILY 08/28/20 06/21/24 Ipratropium-Albuterol Nebulize 3 ml INHALATION RT-QID 07/26/21 06/21/24 [Duoneb 0.5 mg-3 mg/3 ml Soln] Escitalopram Oxalate [Lexapro] 10 mg PO DAILY 11/28/21 06/21/24 Dicyclomine [Bentyl] 20 mg PO TID 06/21/24 06/21/24 Magnesium Oxide [Mag-Ox] 400 mg PO DAILY 06/21/24 06/21/24 Montelukast [Singulair] 10 mg PO HS 06/21/24 06/21/24 Sennosides/Docusate Sodium 2 tab PO DAILY 06/21/24 06/21/24 [Senna-S 8.6-50 mg Tablet] dilTIAZem HCL [Cardizem CD] 240 mg PO DAILY 06/21/24 06/21/24 ondansetron HCL [Zofran] 8 mg PO BID PRN 06/21/24 06/21/24 traZODone HCL [Desyrel] 50 mg PO HS PRN 06/21/24 06/21/24 Previous Rx's Medication Instructions Recorded Apixaban [Eliquis] 5 mg PO BID #60 tab 12/12/20 HYDROcodone/APAP 10-325MG [[place] 1 tab PO Q6HR PRN 30 Days #120 tab 06/21/24 10-325] tiZANidine [Zanaflex] 4 mg PO Q8HR PRN 30 Days #90 tab 06/21/24 Allergies Allergy/AdvReac Type Severity Reaction Status Date / Time sulfamethoxazole Allergy Itching Verified 06/21/24 15:56 [From Septra] trimethoprim [From Septra] Allergy Itching Verified 06/21/24 15:56 levofloxacin [From Levaquin] AdvReac Muscle Pain Verified 06/21/24 15:56 nitrofurantoin AdvReac Unknown Verified 06/21/24 15:56 [From Macrobid] Review of Systems ROS Statement: Those systems with pertinent positive or pertinent negative responses have been documented in the HPI. ROS Other: All systems not noted in ROS Statement are negative. Past Medical History Past Medical History: Atrial Fibrillation, Coronary Artery Disease (CAD), CVA/TIA, Diabetes Mellitus, GERD/Reflux, Hyperlipidemia, Hypertension, Osteoarthritis (OA) Additional Past Medical History / Comment(s): Chronic right shoulder pain. Breathing problems - Daughter unsure what. Hx urinary retention, nephrolithiasis, recurrent UTI, small cyst on left kidney, right kidney removed. Bilateral above the knee amputations at age 6 due to defect. "No longer Diabetic". History of Any Multi-Drug Resistant Organisms: ESBL Date of last positivie culture/infection: 12/25/19 ESBL MDRO Source:: Urine Past Surgical History: Appendectomy, Section, Cholecystectomy, Heart Catheterization, Hysterectomy, Orthopedic Surgery Additional Past Surgical History / Comment(s): Bilateral above the knee amputati on, cervical fusion, right arm hardware, left nephrostolithotomy, section X3, bilateral oophorectomy due to cysts, bilateral carpal tunnel release, right kidney removed. Past Anesthesia/Blood Transfusion Reactions: No Reported Reaction, Motion Sickness Additional Past Anesthesia/Blood Transfusion Reaction / Comment(s): Received blood in 1978-no reaction reported. Past Psychological History: Anxiety Smoking Status: Current some day smoker Past Alcohol Use History: None Reported Past Drug Use History: None Reported - Past Family History Father Family Medical History: Cancer, Myocardial Infarction (CT) Additional Family Medical History / Comment(s): Father had lung cancer-went into remission. He of a massive CT in his 60's. Mother Family Medical History: Cancer Additional Family Medical History / Comment(s): Mother of lung cancer at age 54 yrs. Sister(s) Family Medical History: Cancer Additional Family Medical History / Comment(s): Lung cancer. Daughter(s) Family Medical History: Cancer Additional Family Medical History / Comment(s): Skin cancer. General Exam - General Exam Comments Initial Comments: Visual Physical Exam Vital signs reviewed General: Well-appearing, nontoxic, no acute distress. Head: Normocephalic, atraumatic Eyes: PERRLA, EOMI ENT: Airway patent Chest: Nonlabored breathing Skin: No visual rash, normal skin tone Neuro: Alert and oriented 3 Musculoskeletal: No gross abnormalities Limitations: no limitations General appearance: alert, in no apparent distress Head exam: Present: atraumatic, normocephalic, normal inspection Respiratory exam: Present: normal lung sounds bilaterally. Absent: respiratory distress, wheezes, rales, rhonchi, stridor Cardiovascular Exam: Present: tachycardia, irregular rhythm GI/Abdominal exam: Present: soft, normal bowel sounds. Absent: distended, tenderness, guarding, rebound, rigid Neurological exam: Present: alert, oriented X3, CN II-XII intact Psychiatric exam: Present: normal affect, normal mood Skin exam: Present: warm, dry, intact, normal color. Absent: rash Course Vital Signs 06/21/24 06/21/24 06/21/24 11:36 14:15 15:00 Temperature 98.5 F Pulse Rate 64 120 H 110 H Respiratory 18 20 20 Rate Blood Pressure 163/93 143/90 116/79 O2 Sat by Pulse 98 98 98 Oximetry 06/21/24 15:56 Temperature Pulse Rate 135 H Respiratory 20 Rate Blood Pressure 146/90 O2 Sat by Pulse 98 Oximetry Medical Decision Making - Medical Decision Making This is a 69-year-old female who presents to the emergency department for chest pain and elevated blood pressure. Was pt. sent in by a medical professional or institution? @ -No Did you speak to anyone other than the patient for history? @ -No Did you review nursing and triage notes? @ -Yes, and I agree, it is accurate with regards to the patient's symptoms. Were old charts reviewed? @ -No Differential Diagnosis? @ -Differential Chest Pain: Stable Angina, Unstable Angina, STEMI, NSTEMI Aortic Dissection, Pneumothorax, Musculoskeletal, Esophageal Spasm GERD, Cholecystitis, Pancreatitis, Zoster, this is not meant to be an all-inclusive list. EKG interpreted by me (3pts min.)? @ -EKG interpreted by me demonstrating the following: A-fib with RVR. Ventricular rate 138 bpm, QRS duration 65 ms, QTc 355 ms. X-rays interpreted by me (1pt min.)? @ -Chest x-ray obtained, my interpretation identifies no localized consolidations or infiltrates. CT interpreted by me (1pt min.)? @ -Not obtained U/S interpreted by me (1pt. min.)? @ -Not obtained What testing was considered but not performed? (CT, X-rays, U/S, labs)? Why? @ -None What meds were considered but not given? Why? @ -None Did you discuss the management of the patient with other professionals? @ -Yes, Dr. Gutierres, who accepts the patient for admission. Did you reconcile home meds? @ -Yes Was smoking cessation discussed for >3mins.? @ -No Was critical care preformed (if so, how long)? @ -No Were there social determinants of health that impacted care today? How? (Homelessness, low income, unemployed, alcoholism, drug addiction, transportation, low edu. Level, literacy, decrease access to med. care, halfway, rehab)? @ -No Was there de-escalation of care discussed even if they declined? (Discuss DNR or withdrawal of care, Hospice)? @ -No What co-morbidities impacted this encounter? (DM, HTN, Smoking, COPD, CAD, Cancer, CVA, Hep., AIDS, mental health diagnosis, sleep apnea, morbid obesity)? @ -A-fib, CAD, DM, HLD, HTN Was patient admitted / discharged? @ -Admitted. Lab work demonstrates mild leukocytosis and was otherwise unremarkable. Urinalysis was suggestive of infection and urine was sent for culture. Patient was having pain in her bladder and states that she does occasionally struggle with urinary retention and bladder spasms. Bladder scan demonstrates 260 mL of urine. Patient was straight cathed to empty out the bladder. Chest x-ray reveals no acute process. Patient's heart rate started to elevate and she went into A-fib with RVR, with a heart rate ranging from 130 to 180 bpm. She was started on Cardizem. Ceftriaxone administered for the UTI. Patient admitted to medicine for A-fib with RVR and chest pain. Consult placed for cardiology. Case discussed with ED attending Dr. Orta. Undiagnosed new problem with uncertain prognosis? @ -None Drug Therapy requiring intensive monitoring for toxicity (Heparin, Nitro, Insulin, Cardizem)? @ -Cardizem Were any procedures done? @ -None Diagnosis/symptom? @ -Chest pain, a-fib with RVR, UTI Acute, or Chronic, or Acute on Chronic? @ -Acute Uncomplicated (without systemic symptoms) or Complicated (systemic symptoms)? @ -Complicated Side effects of treatment? @ -None Exacerbation, Progression, or Severe Exacerbation] @ -Not applicable Poses a threat to life or bodily function? @ -Yes, if chest pain is due to ACS, it can lead to - Lab Data Result diagrams: 06/21/24 12:53 06/21/24 12:53 Lab Results 06/21/24 06/21/24 06/21/24 Range/Units 12:53 12:53 12:53 WBC 11.6 H (3.8-10.6) k/uL RBC 5.38 (3.80-5.40) m/uL Hgb 15.7 (11.4-16.0) gm/dL Hct 48.4 H (34.0-46.0) % MCV 89.9 (80.0-100.0) fL MCH 29.1 (25.0-35.0) pg MCHC 32.4 (31.0-37.0) g/dL RDW 16.0 H (11.5-15.5) % Plt Count 380 (150-450) k/uL MPV 7.4 Neutrophils % 71 % Lymphocytes % 22 % Monocytes % 4 % Eosinophils % 0 % Basophils % 0 % Neutrophils # 8.3 H (1.3-7.7) k/uL Lymphocytes # 2.5 (1.0-4.8) k/uL Monocytes # 0.5 (0-1.0) k/uL Eosinophils # 0.1 (0-0.7) k/uL Basophils # 0.1 (0-0.2) k/uL Anisocytosis Slight PT 11.0 (10.0-12.5) sec INR 1.0 (<1.2) APTT 27.2 (22.0-30.0) sec Sodium 140 (137-145) mmol/L Potassium 4.7 (3.5-5.1) mmol/L Chloride 109 H (98-107) mmol/L Carbon Dioxide 22 (22-30) mmol/L Anion Gap 9 mmol/L BUN 21 H (7-17) mg/dL Creatinine 0.55 (0.52-1.04) mg/dL Est GFR (CKD-EPI)AfAm >90 (>60 ml/min/1.73 sqM) Est GFR (CKD-EPI)NonAf >90 (>60 ml/min/1.73 sqM) Glucose 109 H (74-99) mg/dL Calcium 9.2 (8.4-10.2) mg/dL Magnesium 1.6 (1.6-2.3) mg/dL Total Bilirubin 0.5 (0.2-1.3) mg/dL AST 26 (14-36) U/L ALT 22 (4-34) U/L Alkaline Phosphatase 91 (38-126) U/L Troponin I (0.000-0.034) ng/mL Total Protein 6.7 (6.3-8.2) g/dL Albumin 3.7 (3.5-5.0) g/dL Urine Color Urine Appearance (Clear) Urine pH (5.0-8.0) Ur Specific Marshall (1.001-1.035) Urine Protein (Negative) Urine Glucose (UA) (Negative) Urine Ketones (Negative) Urine Blood (Negative) Urine Nitrite (Negative) Urine Bilirubin (Negative) Urine Urobilinogen (<2.0) mg/dL Ur Leukocyte Esterase (Negative) Urine RBC (0-5) /hpf Urine WBC (0-5) /hpf Urine WBC Clumps (None) /hpf Urine Bacteria (None) /hpf Urine Mucus (None) /hpf 06/21/24 06/21/24 Range/Units 12:53 15:05 WBC (3.8-10.6) k/uL RBC (3.80-5.40) m/uL Hgb (11.4-16.0) gm/dL Hct (34.0-46.0) % MCV (80.0-100.0) fL MCH (25.0-35.0) pg MCHC (31.0-37.0) g/dL RDW (11.5-15.5) % Plt Count (150-450) k/uL MPV Neutrophils % % Lymphocytes % % Monocytes % % Eosinophils % % Basophils % % Neutrophils # (1.3-7.7) k/uL Lymphocytes # (1.0-4.8) k/uL Monocytes # (0-1.0) k/uL Eosinophils # (0-0.7) k/uL Basophils # (0-0.2) k/uL Anisocytosis PT (10.0-12.5) sec INR (<1.2) APTT (22.0-30.0) sec Sodium (137-145) mmol/L Potassium (3.5-5.1) mmol/L Chloride (98-107) mmol/L Carbon Dioxide (22-30) mmol/L Anion Gap mmol/L BUN (7-17) mg/dL Creatinine (0.52-1.04) mg/dL Est GFR (CKD-EPI)AfAm (>60 ml/min/1.73 sqM) Est GFR (CKD-EPI)NonAf (>60 ml/min/1.73 sqM) Glucose (74-99) mg/dL Calcium (8.4-10.2) mg/dL Magnesium (1.6-2.3) mg/dL Total Bilirubin (0.2-1.3) mg/dL AST (14-36) U/L ALT (4-34) U/L Alkaline Phosphatase (38-126) U/L Troponin I <0.012 (0.000-0.034) ng/mL Total Protein (6.3-8.2) g/dL Albumin (3.5-5.0) g/dL Urine Color Colorless Urine Appearance Cloudy H (Clear) Urine pH 5.5 (5.0-8.0) Ur Specific [place] 1.015 (1.001-1.035) Urine Protein 1+ H (Negative) Urine Glucose (UA) Negative (Negative) Urine Ketones Negative (Negative) Urine Blood Trace H (Negative) Urine Nitrite Negative (Negative) Urine Bilirubin Negative (Negative) Urine Urobilinogen <2.0 (<2.0) mg/dL Ur Leukocyte Esterase Large H (Negative) Urine RBC 5 (0-5) /hpf Urine WBC 21 H (0-5) /hpf Urine WBC Clumps Occasional H (None) /hpf Urine Bacteria Occasional H (None) /hpf Urine Mucus Rare H (None) /hpf - Radiology Data Radiology results: report reviewed, image reviewed Disposition Clinical Impression: UTI (urinary tract infection), Atrial fibrillation with RVR, Chest pain Disposition: ADMITTED IP TO THIS HOSP Referrals: Pavel Spaulding MD [Primary Care Provider] - 1-2 days
[2024-06-21 13:37] LABS: Partial Thromboplastin Time 27.2 sec (22.0-30.0)
--- NOTE | 2024-06-21 13:43 | XR ---
EXAMINATION TYPE: XR chest 2V DATE OF EXAM: 06/21/2024 1:06 PM COMPARISON: Chest radiographs from 07/26/2021 CLINICAL INDICATION: Female, 69 years old with history of Chest Pain; TECHNIQUE: XR chest 2V Frontal and lateral views of the chest. FINDINGS: Lungs/Pleura: There is no evidence of pleural effusion, focal consolidation, or pneumothorax. Pulmonary vascularity: Unremarkable. Heart/mediastinum: Cardiomediastinal silhouette is enlarged and stable. Musculoskeletal: No acute osseous pathology. There is fixation hardware in the lower cervical spine. Right shoulder fixation hardware. IMPRESSION: No acute cardiopulmonary disease/process. [facility], , 06/21/2024 1:40 PM
[2024-06-21] MEDS: HYDROmorphone 1 MG/ML 1 ML SYRINGE IVP STA (14:37)
[2024-06-21 15:38] LABS: Appearance,Urine Cloudy (Clear); Bacteria,Urine Occasional /hpf; Bilirubin,Urine Negative (Negative); Blood,Urine Trace (Negative); Color,Urine Colorless; Glucose,Urine (UA) Negative (Negative); Ketones,Urine Negative (Negative); Leukocyte Esterase,Urine Large (Negative); Mucus,Urine Rare /hpf; Nitrite,Urine Negative (Negative); PH, Urine 5.5 (5.0-8.0); Protein,Urine 1+ (Negative); RBC,Urine 5 /hpf (0-5); Specific Gravity,Urine 1.015 (1.001-1.035); Urobilinogen,Urine <2.0 mg/dL (<2.0); WBC,Urine 21 /hpf (0-5)
[2024-06-21] MEDS ORDERED: NALOXONE 0.4 MG/ML 1 ML VIAL IV PRN (16:09)
[2024-06-21] MEDS ORDERED: ACETAMINOPHEN TAB 325 MG TAB PO PRN (16:09)
[2024-06-21] MEDS ORDERED: tiZANidine 4 MG TAB PO PRN (16:10)
[2024-06-21] MEDS ORDERED: ONDANSETRON 4 MG TAB PO PRN (16:10)
[2024-06-21] MEDS: DILTIAZEM 125 MG in SODIUM CHLORIDE 0.9% 100 ML IV SCH (16:23)
[2024-06-21] MEDS: DILTIAZEM DRIP BOLUS FROM BAG 1 MG SOLN IV ONE (16:25)
[2024-06-21] MEDS: HYDROmorphone 1 MG/ML 1 ML SYRINGE IVP PRN (16:56)
[2024-06-21] MEDS: IPRATROPIUM-ALBUTEROL 3 ML NEB INHALATION SCH (19:32)
[2024-06-21] MEDS: APIXABAN 5 MG TAB PO SCH (20:43)
[2024-06-21] MEDS: MONTELUKAST 10 MG TAB PO SCH (20:43)
[2024-06-21] MEDS: HYDROmorphone 0.5 MG/0.5 ML SYRINGE IVP PRN (20:44)
[2024-06-21] MEDS: busPIRone HCl 10 MG TAB PO SCH (21:43)
[2024-06-21] MEDS: DICYCLOMINE 20 MG TAB PO SCH (21:43)
[2024-06-21] MEDS: traZODone HCL 50 MG TAB PO PRN (21:43)
[2024-06-21] MEDS: ONDANSETRON 4 MG/2 ML VIAL IVP PRN (21:43)
[2024-06-22] MEDS: ESCITALOPRAM 10 MG TAB PO SCH (08:22)
[2024-06-22] MEDS: SENNOSIDES-DOCUSATE SODIUM 1 EACH TAB PO SCH (08:23)
[2024-06-22] MEDS: MAGNESIUM OXIDE 400 MG TAB PO SCH (08:24)
[2024-06-22] MEDS: PANTOPRAZOLE 40 MG TABLET PO SCH (08:24)
[2024-06-22] MEDS ORDERED: PANTOPRAZOLE 40 MG/10 ML VIAL IV SCH (09:00)
[2024-06-22] MEDS: DILTIAZEM CD 240 MG CAP.ER.24H PO SCH (09:47)
[2024-06-22] MEDS: DILTIAZEM 125 MG in SODIUM CHLORIDE 0.9% 100 ML IV SCH (10:30)
[2024-06-22] MEDS: FLECAINIDE 50 MG TAB PO SCH (11:00)
[2024-06-22] MEDS: SODIUM CHLORIDE 0.9% 1,000 ML IV SCH (11:01)
--- NOTE | 2024-06-22 12:42 | P.CRDCN ---
History of Present Illness Consult date: 06/22/24 Reason for Consult (text): Chest pain, A-fib with RVR History of present illness: This is a 69-year-old female patient of Dr. Prescott with past medical history of COPD, paroxysmal atrial fibrillation, coronary artery disease, dyslipidemia, hyp ertension, peripheral vascular disease with bilateral AKA, aortic stenosis, history of left nephrectomy. We have been asked to evaluate the patient for chest pain and A-fib with RVR. Patient states her AFIB started acting up. She c/o tightness in her chest and dizziness. She denies any medication changes and has been taking her blood thinner without fail. Her symptoms have been going on for a few days to one week. Blood pressure 130/97, heart rate 96, pulse ox 95% on room air. Patient has been started on Cardizem drip at 5 mg/h. Patient is seen today in the emergency center as she is waiting for a bed on the cardiac stepdown unit. Patient is currently in atrial fibrillation 107-115 bpm. She states she is still not feeling well. Discussed option of cardioversion. -EKG: Atrial fibrillation 138 bpm -Chest x-ray: No acute process -Laboratory studies: WBC 11.6, hemoglobin 15.7. Sodium 140, potassium 4.7, BUN 21 creatinine 0.55. Troponin negative x 3. Urinalysis positive for infection. -Home cardiac medications: Eliquis 5 mg twice daily, Cardizem CD 240 mg daily, magnesium oxide 400 mg daily. -Echocardiogram performed in the office on 05/31/2020 revealed EF 60%, moderate concentric left ventricular hypertrophy, mild to moderate mitral regurgitation. -LHC performed by Dr. Jama in 2019 revealed diffuse coronary artery disease with ectasia and about 30 to 40% lesions involving the RCA, circumflex and proximal LAD. Review Of Systems: At the time of my exam: CONSTITUTIONAL: Denies fever or chills. Reports dizziness. HEENT: Denies blurred vision, vision changes, or eye pain. Denies hemoptysis CARDIOVASCULAR: Denies chest pain. Denies orthopnea. Denies PND. Denies pal pitations RESPIRATORY: Denies shortness of breath. GASTROINTESTINAL: Denies abdominal pain. Denies nausea or vomiting. HEMATOLOGIC: Denies bleeding disorders. GENITOURINARY: Denies any blood in urine. SKIN: Denies puritis. Denies rash. Physical examination: Gen: This is a 69-year-old female in no acute distress VS: reviewed HEENT: Head is atraumatic, normocephalic. Pupils equal, round. Sclerae is anicteric. NECK: Supple. No JVD. LUNGS: Clear to auscultation. No wheezes or rhonchi. No intercostal retractions. HEART: Irregular rate and rhythm. No murmur. ABDOMEN: Soft No tenderness. EXTREMITIES: No pedal edema. No calf tenderness. NEUROLOGICAL: Patient is awake, alert and oriented x3. Assessment: Paroxysmal atrial fibrillation presenting with RVR Urinary tract infection Chest pain Hypertension Dyslipidemia Paroxysmal atrial fibrillation on Eliquis History of coronary artery disease, nonobstructive, 2019 [facility] COPD History of left nephrectomy Plan: Resume patient's home cardiac medications Increase Cardizem drip to 10 mg/h Add flecainide 50 mg twice daily Schedule patient today for cardioversion with Dr. Prescott Obtain records from [facility] Obtain 2-D echocardiogram and Doppler study to assess cardiac structure and function Further recommendations to follow based upon clinical course Thank you kindly for this consultation. Nurse practitioner note has been reviewed, I agree with documented findings and plan of care. Patient was seen and examined. Past Medical History Past Medical History: Atrial Fibrillation, Coronary Artery Disease (CAD), CVA/TIA, Diabetes Mellitus, GERD/Reflux, Hyperlipidemia, Hypertension, Osteoarthritis (OA) Additional Past Medical History / Comment(s): Chronic right shoulder pain. Breathing problems - Daughter unsure what. Hx urinary retention, nephrolithia sis, recurrent UTI, small cyst on left kidney, right kidney removed. Bilateral above the knee amputations at age 6 due to defect. "No longer Diabetic". History of Any Multi-Drug Resistant Organisms: ESBL Date of last positivie culture/infection: 12/25/19 ESBL MDRO Source:: Urine Past Surgical History: Appendectomy, Section, Cholecystectomy, Heart Catheterization, Hysterectomy, Orthopedic Surgery Additional Past Surgical History / Comment(s): Bilateral above the knee amputation, cervical fusion, right arm hardware, left nephrostolithotomy, section X3, bilateral oophorectomy due to cysts, bilateral carpal tunnel release, right kidney removed. Past Anesthesia/Blood Transfusion Reactions: No Reported Reaction, Motion Sick ness Additional Past Anesthesia/Blood Transfusion Reaction / Comment(s): Received blood in 1978-no reaction reported. Past Psychological History: Anxiety Smoking Status: Current some day smoker Past Alcohol Use History: None Reported Past Drug Use History: None Reported - Past Family History Father Family Medical History: Cancer, Myocardial Infarction ([place]) Additional Family Medical History / Comment(s): Father had lung cancer-went into remission. He of a massive [place] in his 60's. Mother Family Medical History: Cancer Additional Family Medical History / Comment(s): Mother of lung cancer at age 54 yrs. Sister(s) Family Medical History: Cancer Additional Family Medical History / Comment(s): Lung cancer. Daughter(s) Family Medical History: Cancer Additional Family Medical History / Comment(s): Skin cancer. Medications and Allergies Home Medications Medication Instructions Recorded Confirmed Type ALPRAZolam [Xanax] 0.5 mg PO BID PRN 01/20/19 06/21/24 History busPIRone HCl [Buspar] 10 mg PO TID 12/25/19 06/21/24 History Pantoprazole Sodium [Protonix] 40 mg PO DAILY 08/28/20 06/21/24 History Apixaban [Eliquis] 5 mg PO BID #60 tab 12/12/20 06/21/24 Rx Ipratropium-Albuterol Nebulize 3 ml INHALATION RT-QID 07/26/21 06/21/24 History [Duoneb 0.5 mg-3 mg/3 ml Soln] Escitalopram Oxalate [Lexapro] 10 mg PO DAILY 11/28/21 06/21/24 History Dicyclomine [Bentyl] 20 mg PO TID 06/21/24 06/21/24 History HYDROcodone/APAP 10-325MG [[place] 1 tab PO Q6HR PRN 30 Days #120 tab 06/21/24 06/21/24 Rx 10-325] Magnesium Oxide [Mag-Ox] 400 mg PO DAILY 06/21/24 06/21/24 History Montelukast [Singulair] 10 mg PO HS 06/21/24 06/21/24 History Sennosides/Docusate Sodium 2 tab PO DAILY 06/21/24 06/21/24 History [Senna-S 8.6-50 mg Tablet] dilTIAZem HCL [Cardizem CD] 240 mg PO DAILY 06/21/24 06/21/24 History ondansetron HCL [Zofran] 8 mg PO BID PRN 06/21/24 06/21/24 History tiZANidine [Zanaflex] 4 mg PO Q8HR PRN 30 Days #90 tab 06/21/24 06/21/24 Rx traZODone HCL [Desyrel] 50 mg PO HS PRN 06/21/24 06/21/24 History Allergies Allergy/AdvReac Type Severity Reaction Status Date / Time sulfamethoxazole Allergy Itching Verified 06/21/24 15:56 [From ] trimethoprim [From ] Allergy Itching Verified 06/21/24 15:56 [facility] AdvReac Muscle Pain Verified 06/21/24 15:56 nitrofurantoin AdvReac Unknown Verified 06/21/24 15:56 [From Macrobid] Physical Exam Vitals: Vital Signs Temp Pulse Resp BP Pulse Ox 06/22/24 08:44 96 06/22/24 08:34 95 06/22/24 08:30 98 06/22/24 08:15 98.6 F 112 H 18 130/97 95 06/22/24 06:30 137 H 18 131/87 97 06/22/24 05:06 93 18 109/91 95 06/22/24 03:01 90 18 124/80 96 06/22/24 01:23 109 H 18 116/104 96 06/22/24 00:20 129 H 16 101/74 06/21/24 22:45 96 16 134/81 06/21/24 20:50 99 18 134/88 96 06/21/24 19:41 112 H 06/21/24 19:34 111 H 06/21/24 17:56 108 H 20 170/98 98 06/21/24 16:58 109 H 20 124/101 98 06/21/24 15:56 135 H 20 146/90 98 06/21/24 15:00 110 H 20 116/79 98 06/21/24 14:15 120 H 20 143/90 98 06/21/24 11:36 98.5 F 64 18 163/93 98 Results 06/21/24 12:53 06/21/24 12:53 Cardiac Enzymes 06/21/24 06/21/24 06/21/24 Range/Units 12:53 12:53 17:06 AST 26 (14-36) U/L Troponin I <0.012 <0.012 (0.000-0.034) ng/mL 06/21/24 Range/Units 19:49 AST (14-36) U/L Troponin I <0.012 (0.000-0.034) ng/mL Coagulation 06/21/24 Range/Units 12:53 PT 11.0 (10.0-12.5) sec APTT 27.2 (22.0-30.0) sec CBC 06/21/24 Range/Units 12:53 WBC 11.6 H (3.8-10.6) k/uL RBC 5.38 (3.80-5.40) m/uL Hgb 15.7 (11.4-16.0) gm/dL Hct 48.4 H (34.0-46.0) % Plt Count 380 (150-450) k/uL Comprehensive Metabolic Panel 06/21/24 Range/Units 12:53 Sodium 140 (137-145) mmol/L Potassium 4.7 (3.5-5.1) mmol/L Chloride 109 H (98-107) mmol/L Carbon Dioxide 22 (22-30) mmol/L BUN 21 H (7-17) mg/dL Creatinine 0.55 (0.52-1.04) mg/dL Glucose 109 H (74-99) mg/dL Calcium 9.2 (8.4-10.2) mg/dL AST 26 (14-36) U/L ALT 22 (4-34) U/L Alkaline Phosphatase 91 (38-126) U/L Total Protein 6.7 (6.3-8.2) g/dL Albumin 3.7 (3.5-5.0) g/dL Current Medications Generic Name Dose Route Start Last Admin Trade Name Freq PRN Reason Stop Dose Admin Acetaminophen 650 mg 06/21/24 16:09 Acetaminophen Tab 325 Mg Tab PO Q6HR PRN Mild Pain or Fever > 100.5 Hydrocodone Bitart/Acetaminophen 1 each 06/21/24 16:10 Hydrocodone/Apap 10-325mg 1 Each Tab PO Q6HR PRN Pain Albuterol/Ipratropium 3 ml 06/21/24 20:00 06/22/24 08:30 Ipratropium-Albuterol 3 Ml Neb INHALATION 3 ml RT-QID REGINA Administration Alprazolam 0.5 mg 06/21/24 16:10 Alprazolam 0.5 Mg Tab PO BID PRN Anxiety Apixaban 5 mg 06/21/24 21:00 06/22/24 08:24 Apixaban 5 Mg Tab PO 5 mg BID REGINA Administration Protocol Buspirone HCl 10 mg 06/21/24 22:00 06/22/24 08:23 Buspirone Hcl 10 Mg Tab PO 10 mg TID REGINA Administration Dicyclomine HCl 20 mg 06/21/24 22:00 06/22/24 08:23 Dicyclomine 20 Mg Tab PO 20 mg TID REGINA Administration Diltiazem HCl 240 mg 06/22/24 09:00 Diltiazem Cd 240 Mg Cap.Er.24h PO DAILY REGINA Escitalopram Oxalate 10 mg 06/22/24 09:00 06/22/24 08:22 Escitalopram 10 Mg Tab PO 10 mg DAILY REGINA Administration Hydromorphone HCl 1 mg 06/21/24 16:09 06/22/24 08:25 Hydromorphone 1 Mg/Ml 1 Ml Syringe IVP 1 mg Q3HR PRN Administration Severe Pain (Scale 7 to 10) Hydromorphone HCl 0.5 mg 06/21/24 16:09 06/22/24 03:48 Hydromorphone 0.5 Mg/0.5 Ml Syringe IVP 0.5 mg Q3HR PRN Administration Moderate Pain (Scale 4 to 6) Diltiazem HCl 125 mg/ Sodium 125 mls @ 5 mls/hr 06/21/24 16:00 06/21/24 16:23 Chloride IV 5 mg/hr .Q24H REGINA 5 mls/hr Administration 5 MG/HR Magnesium Oxide 400 mg 06/22/24 09:00 06/22/24 08:24 Magnesium Oxide 400 Mg Tab PO 400 mg DAILY REGINA Administration Montelukast Sodium 10 mg 06/21/24 21:00 06/21/24 20:43 Montelukast 10 Mg Tab PO 10 mg HS REGINA Administration Naloxone HCl 0.2 mg 06/21/24 16:09 Naloxone 0.4 Mg/Ml 1 Ml Vial IV Q2M PRN Opioid Reversal Ondansetron HCl 4 mg 06/21/24 16:09 06/21/24 21:43 Ondansetron 4 Mg/2 Ml Vial IVP 4 mg Q8HR PRN Administration Nausea And Vomiting Ondansetron HCl 8 mg 06/21/24 16:10 Ondansetron 4 Mg Tab PO BID PRN Nausea And Vomiting Pantoprazole Sodium 40 mg 06/22/24 07:30 06/22/24 08:24 Pantoprazole 40 Mg Tablet PO 40 mg 0730 REGINA Administration Senna/Docusate Sodium 2 each 06/22/24 09:00 06/22/24 08:23 Sennosides-Docusate Sodium 1 Each Tab PO 2 each DAILY REGINA Administration Tizanidine HCl 4 mg 06/21/24 16:10 Tizanidine 4 Mg Tab PO Q8HR PRN Muscle Spasm Trazodone HCl 50 mg 06/21/24 16:10 06/21/24 21:43 Trazodone Hcl 50 Mg Tab PO 50 mg HS PRN Administration sleep 06/21/24 12:53 06/21/24 12:53
[2024-06-22] MEDS: IV FLUID CONTINUATION 1,000 ML IV ONE (15:00)
[2024-06-22] MEDS ORDERED: PROPOFOL 10 MG/ML 20 ML VIAL IV ONE (15:25)
[2024-06-22] MEDS ORDERED: LIDOCAINE 1% INJ 10MG/ML (20 ML MDV) ONE (15:25)
--- NOTE | 2024-06-22 15:35 | P.HPIM ---
History of Present Illness H&P Date: 06/22/24 This is a pleasant 69-year-old female who presented to the emergency department from the pain clinic for a routine visit and was noted to have elevated blood pressure and sent here for further evaluation. Patient was admitted and noted to be in atrial fibrillation with RVR. Patient reports she follows with Dr. Spaulding in the outpatient setting with a significant past medical history of atrial fibrillation, coronary artery disease, CVA, diabetes, GERD, hyperlipidemia, hypertension, osteoarthritis, chronic shoulder pain of the right, recurrent UTIs, right kidney removal, bilateral [id number] amputations at age 6 due to a defect, anxiety, continued ongoing nicotine dependence and denies any other illicit drug use or alcohol use. Labs reviewed show a mildly elevated white count of 11.6, hemoglobin stable at 15.7, platelets 380, sodium 140, potassium 4.7, BUN 21, creatinine 0.55, troponins x 3 were negative, urinalysis negative. Chest x-ray shows no acute cardiopulmonary proce ss. EKG showing A-fib with RVR with a heart rate of 138. Patient was admitted for cardiology evaluation. Cardiology evaluated the patient as patient was placed on heparin and continued to be in A-fib and Cardizem has been increased. Cardiology has also added flecainide and awaiting to cardiovert the patient with Dr. Prescott today. Patient does follow with him in the outpatient setting. REVIEW OF SYSTEMS: CONSTITUTIONAL: No fever, no malaise, no fatigue. HEENT: No recent visual problems or hearing problems. Denied any sore throat. CARDIOVASCULAR: No chest pain, orthopnea, PND, no palpitations, no syncope. PULMONARY: No shortness of breath, no cough, no hemoptysis. GASTROINTESTINAL: No diarrhea, no nausea, no vomiting, no abdominal pain. NEUROLOGICAL: No headaches, no weakness, no numbness. HEMATOLOGICAL: Denies any bleeding or petechiae. GENITOURINARY: Denies any burning micturition, frequency, or urgency. MUSCULOSKELETAL/RHEUMATOLOGICAL: Denies any joint pain, swelling, or any muscle pain. ENDOCRINE: Denies any polyuria or polydipsia. The rest of the 14-point review of systems is negative. PHYSICAL EXAMINATION: GENERAL: The patient is alert and oriented x3, not in any acute distress. Well developed, well nourished. Elderly appearing, obese HEENT: Pupils are round and equally reacting to light. EOMI. No scleral icterus. No conjunctival pallor. Normocephalic, atraumatic. No pharyngeal erythema. No thyromegaly. CARDIOVASCULAR: S1 and S2 muffled, irregular, A-fib on the monitor, heart rate 132 PULMONARY: Diminished breath sounds bilaterally otherwise chest is clear to auscultation, no wheezing or crackles. ABDOMEN: Soft, obese, nontender, nondistended, normoactive bowel sounds. No palpable organomegaly. MUSCULOSKELETAL: No joint swelling or deformity. EXTREMITIES: No cyanosis, clubbing, or pedal edema. Bilateral AKA noted NEUROLOGICAL: Gross neurological examination did not reveal any focal deficits. SKIN: No rashes. Assessment: Atrial fibrillation with RVR History of paroxysmal atrial fibrillation Chest pain, ruled out ACS likely secondary to atrial fibrillation Hyperlipidemia History of atrial fibrillation on Eliquis outpatient History of coronary artery disease, nonobstructive History of COPD, not in exacerbation History of solitary kidney with previous left nephrectomy Obesity with a BMI of 48.8 GI prophylaxis DVT prophylaxis Full code Plan: Patient is admitted with cardiology following and has increased Cardizem drip to 10 as patient continues to be in atrial fibrillation with RVR. Continue telemetry monitoring and also discussing cardioversion with Dr. Prescott today. Patient will be n.p.o. and cardiology will resume diet once cleared Other appropriate home medications have been resumed Cardiology adding flecainide, 2D echo ordered and pending Will follow-up on repeat labs and continue to monitor placement closely. Will discuss with cardiology regarding discharge planning in the next 24 to 48 hours The impression and plan of care has been dictated by Brigida Blake, Nurse Practitioner as directed. Dr. Alise MD I have performed a history and examination and MDM of this patient, discussed the same with the dictator, and agree with the dictator's assessment and plan as written ,documented as a scribe. Based on total visit time, I have performed more than 50% of the visit. Past Medical History Past Medical History: Atrial Fibrillation, Coronary Artery Disease (CAD), CVA/TIA, Diabetes Mellitus, GERD/Reflux, Hyperlipidemia, Hypertension, Osteoarthritis (OA) Additional Past Medical History / Comment(s): Chronic right shoulder pain. Breathing problems - Daughter unsure what. Hx urinary retention, nephro lithiasis, recurrent UTI, small cyst on left kidney, right kidney removed. Bilateral above the knee amputations at age 6 due to defect. "No longer Diabetic". History of Any Multi-Drug Resistant Organisms: ESBL Date of last positivie culture/infection: 12/25/19 ESBL MDRO Source:: Urine Past Surgical History: Appendectomy, Section, Cholecystectomy, Heart Catheterization, Hysterectomy, Orthopedic Surgery Additional Past Surgical History / Comment(s): Bilateral above the knee amputation, cervical fusion, right arm hardware, left nephrostolithotomy, section X3, bilateral oophorectomy due to cysts, bilateral carpal tunnel release, right kidney removed. Past Anesthesia/Blood Transfusion Reactions: No Reported Reaction, Motion Sickness Additional Past Anesthesia/Blood Transfusion Reaction / Comment(s): Received blood in 1978-no reaction reported. Past Psychological History: Anxiety Smoking Status: Current some day smoker Past Alcohol Use History: None Reported Past Drug Use History: None Reported - Past Family History Father Family Medical History: Cancer, Myocardial Infarction (ID) Additional Family Medical History / Comment(s): Father had lung cancer-went into remission. He of a massive ID in his 60's. Mother Family Medical History: Cancer Additional Family Medical History / Comment(s): Mother of lung cancer at age 54 yrs. Sister(s) Family Medical History: Cancer Additional Family Medical History / Comment(s): Lung cancer. Daughter(s) Family Medical History: Cancer Additional Family Medical History / Comment(s): Skin cancer. Medications and Allergies Home Medications Medication Instructions Recorded Confirmed Type ALPRAZolam [Xanax] 0.5 mg PO BID PRN 01/20/19 06/21/24 History busPIRone HCl [Buspar] 10 mg PO TID 12/25/19 06/21/24 History Pantoprazole Sodium [Protonix] 40 mg PO DAILY 08/28/20 06/21/24 History Apixaban [Eliquis] 5 mg PO BID #60 tab 12/12/20 06/21/24 Rx Ipratropium-Albuterol Nebulize 3 ml INHALATION RT-QID 07/26/21 06/21/24 History [Duoneb 0.5 mg-3 mg/3 ml Soln] Escitalopram Oxalate [Lexapro] 10 mg PO DAILY 11/28/21 06/21/24 History Dicyclomine [Bentyl] 20 mg PO TID 06/21/24 06/21/24 History HYDROcodone/APAP 10-325MG [[place] 1 tab PO Q6HR PRN 30 Days #120 tab 06/21/24 06/21/24 Rx 10-325] Magnesium Oxide [Mag-Ox] 400 mg PO DAILY 06/21/24 06/21/24 History Montelukast [Singulair] 10 mg PO HS 06/21/24 06/21/24 History Sennosides/Docusate Sodium 2 tab PO DAILY 06/21/24 06/21/24 History [Senna-S 8.6-50 mg Tablet] dilTIAZem HCL [Cardizem CD] 240 mg PO DAILY 06/21/24 06/21/24 History ondansetron HCL [Zofran] 8 mg PO BID PRN 06/21/24 06/21/24 History tiZANidine [Zanaflex] 4 mg PO Q8HR PRN 30 Days #90 tab 06/21/24 06/21/24 Rx traZODone HCL [Desyrel] 50 mg PO HS PRN 06/21/24 06/21/24 History Allergies Allergy/AdvReac Type Severity Reaction Status Date / Time sulfamethoxazole Allergy Itching Verified 06/21/24 15:56 [From Septra] trimethoprim [From Septra] Allergy Itching Verified 06/21/24 15:56 levofloxacin [From Levaquin] AdvReac Muscle Pain Verified 06/21/24 15:56 nitrofurantoin AdvReac Unknown Verified 06/21/24 15:56 [From Macrobid] Physical Exam Vitals: Vital Signs Temp Pulse Resp BP Pulse Ox 06/22/24 08:44 96 06/22/24 08:34 95 06/22/24 08:30 98 06/22/24 08:15 98.6 F 112 H 18 130/97 95 06/22/24 06:30 137 H 18 131/87 97 06/22/24 05:06 93 18 109/91 95 06/22/24 03:01 90 18 124/80 96 06/22/24 01:23 109 H 18 116/104 96 06/22/24 00:20 129 H 16 101/74 06/21/24 22:45 96 16 134/81 06/21/24 20:50 99 18 134/88 96 06/21/24 19:41 112 H 06/21/24 19:34 111 H 06/21/24 17:56 108 H 20 170/98 98 06/21/24 16:58 109 H 20 124/101 98 06/21/24 15:56 135 H 20 146/90 98 06/21/24 15:00 110 H 20 116/79 98 06/21/24 14:15 120 H 20 143/90 98 06/21/24 11:36 98.5 F 64 18 163/93 98 Results CBC & Chem 7: 06/21/24 12:53 06/21/24 12:53 Labs: Abnormal Lab Results - Last 24 Hours (Table) 06/21/24 06/21/24 06/21/24 Range/Units 12:53 12:53 15:05 WBC 11.6 H (3.8-10.6) k/uL Hct 48.4 H (34.0-46.0) % RDW 16.0 H (11.5-15.5) % Neutrophils # 8.3 H (1.3-7.7) k/uL Chloride 109 H (98-107) mmol/L BUN 21 H (7-17) mg/dL Glucose 109 H (74-99) mg/dL Urine Appearance Cloudy H (Clear) Urine Protein 1+ H (Negative) Urine Blood Trace H (Negative) Ur Leukocyte Esterase Large H (Negative) Urine WBC 21 H (0-5) /hpf Urine WBC Clumps Occasional H (None) /hpf Urine Bacteria Occasional H (None) /hpf Urine Mucus Rare H (None) /hpf Assessment and Plan Time with Patient: Greater than 30
--- NOTE | 2024-06-22 17:58 | P.PCN ---
Description of Procedure: Procedure performed: Attempted synchronized cardioversion Moderate conscious sedation: Moderate conscious sedation was supplied by an esthesia, see separate report. Complications: none Indications: Afib PROCEDURE: After the risks, benefits and alternatives of the above mentioned procedure was explained in detail with the patient, informed consent was obtained. Patient was brought to the lab in a fasting state. Patient was given sedation by anesthesia, see separate report. Patient had not missed any doses of anticoagulation. Therefore patient underwent attempted synchronized cardioversion x 4 with 200J with continued Afib. Patient tolerated the procedure well. Patient was transferred to the post procedure area in stable and satisfactory condition.
[2024-06-22] MEDS: DILTIAZEM CD 300 MG CAP.ER.24H PO SCH (19:26)
[2024-06-22 20:31] VITALS: RESP 18
[2024-06-22] MEDS: ALPRAZolam 0.5 MG TAB PO PRN (20:37)
[2024-06-23 03:30] VITALS: BP 110/73; TEMP 97.6
[2024-06-23] MEDS: SODIUM CHLORIDE 0.9% 1,000 ML IV SCH (07:55)
[2024-06-23] MEDS ORDERED: PROPOFOL 10 MG/ML 20 ML VIAL IV ONE (10:44)
--- NOTE | 2024-06-23 11:07 | P.EPPROC ---
- EP Procedure Note Electrophysiology Procedure Note: Diagnosis Persistent atrial fibrillation Failed electrical cardioversion yesterday Procedure Electrical cardioversion with a total of 400 J split into the AP configuration and anterior apical configurations Successful temple of sinus rhythm at first attempt Frequent PACs noted during sinus rhythm Plan Reduce p.o. Cardizem to 240 mg p.o. daily Continue flecainide 50 mg twice daily Stop IV Cardizem Continue Eliquis If she remains in sinus rhythm by 6 PM, she could go home and follow-up with me within the next 2 to 3 weeks on current medications
[2024-06-23] MEDS: HYDROcodone/APAP 10-325MG 1 EACH TAB PO PRN (12:18)
--- NOTE | 2024-06-23 13:44 | US ---
EXAMINATION TYPE: US venous doppler duplex LE DATE OF EXAM: 06/23/2024 1:35 PM COMPARISON: NONE CLINICAL INDICATION: Female, 69 years old with history of assess patency of bilateral femoral veins i n preop; Bilateral above knee amputee. Per physician, check for FV patency. , TECHNIQUE: The lower extremity deep venous system is examined utilizing real time linear array sonog gabo with graded compression, color doppler sonography, and spectral doppler. SIDE PERFORMED: Bilateral FINDINGS: VESSELS IMAGED: Common Femoral Vein Deep Femoral Vein Greater Saphenous Vein * Femoral Vein Bilateral above knee amputee Right Leg: Color Doppler imaging shows patency of the vessels. Spectral waveforms are within normal l imits. Left Leg: Color Doppler imaging shows patency of the vessels. Spectral waveforms are within normal li mits. IMPRESSION: Color Doppler imaging shows patency of the veins [facility], , 06/23/2024 1:42 PM
[2024-06-23] MEDS: HYDROmorphone 1 MG/ML 1 ML SYRINGE IVP PRN (15:23)
--- NOTE | 2024-06-23 17:04 | XR ---
EXAMINATION TYPE: XR abdomen 2V DATE OF EXAM: 06/23/2024 4:51 PM COMPARISON: None available. CLINICAL INDICATION: Female, 69 years old with history of Abdominal Pain.; [facility] TECHNIQUE: Two views of the abdomen were obtained. FINDINGS: No evidence of free air. Nonspecific bowel gas pattern. Previous cholecystectomy. Normal co lonic stool burden. Partially visualized lower lungs demonstrate no acute pathology. Dextro convex cu rvature of the lumbosacral spine centered at L2-L3. IMPRESSION: Nonspecific bowel gas pattern without radiographic evidence for acute process. [facility], , 06/23/2024 5:01 PM
[2024-06-23 17:09] VITALS: PULSE 84
[2024-06-24] MEDS ORDERED: DILTIAZEM CD 240 MG CAP.ER.24H PO SCH (09:00)
--- NOTE | 2024-06-24 09:47 | CA ---
Transthoracic Echo Report Name: Karma Greco Age: 69 Gender: F : 1955 Exam Date: 06/23/2024 14:42 Exam Location: [facility] Ht (in): 48 Wt (lb): 160 Ordering Physician: Sherie Olivares Attending/Referring Phys: [id number], [employer] Valentina Alex RDCS Procedure CPT: Indications: LVF Cardiac Hx: Technical Quality: Fair Contrast 1: Total Dose (mL): Contrast 2: Total Dose (mL): MEASUREMENTS (Male / Female) Normal Values 2D ECHO LV Diastolic Volume MOD BP 68.0 cm??? 67 - 155 / 56 - 104 cm??? LV Systolic Volume MOD BP 31.4 cm??? 22 - 58 / 19 - 49 cm??? LV Ejection Fraction MOD BP 53.9 % >= 55 % LV Cardiac Index MOD BP 1346.3 cm???/min???m??? LV Diastolic Volume MOD 4C 63.3 cm??? LV Systolic Volume MOD 4C 28.6 cm??? LV Ejection Fraction MOD 4C 54.8 % LV Cardiac Index MOD 4C 1274.3 cm???/min???m??? LV Diastolic Length 4C 7.8 cm LV Systolic Length 4C 6.1 cm LV Diastolic Volume MOD 2C 72.2 cm??? LV Systolic Volume MOD 2C 32.9 cm??? LV Ejection Fraction MOD 2C 54.4 % LV Cardiac Index MOD 2C 1446.2 cm???/min???m??? LV Diastolic Length 2C 7.7 cm LV Systolic Length 2C 6.5 cm LA Volume 103.8 cm??? 18 - 58 / 22 - 52 cm??? LA Volume Index 63.6 cm???/m??? 16 - 28 cm???/m??? DOPPLER AV Peak Velocity 159.7 cm/s AV Peak Gradient 10.2 mmHg AV Mean Velocity 108.5 cm/s AV Mean Gradient 5.2 mmHg AV Velocity Time Integral 33.5 cm LVOT Peak Velocity 104.9 cm/s LVOT Peak Gradient 4.4 mmHg LVOT Velocity Time Integral 19.7 cm MV Peak Velocity 191.7 cm/s MV Peak Gradient 14.7 mmHg MV Mean Velocity 99.1 cm/s MV Mean Gradient 4.7 mmHg MV Velocity Time Integral 50.1 cm MV Area PHT 2.4 cm??? Mitral E Point Velocity 134.2 cm/s Mitral A Point Velocity 60.4 cm/s Mitral E to A Ratio 2.2 MV Deceleration Time 314.0 ms FINDINGS Left Ventricle Left ventricular ejection fraction is estimated at 55-60 %. Left ventricular cavity size normal. Left ventricular wall thickness normal. No obvious regional wall motion abnormalities. Right Ventricle Right ventricle not well visualized. Unable to estimate the right ventricular systolic pressure. Right Atrium Severe right atrial dilatation. Left Atrium Severely increased left atrial volume. Mildly increased left atrial area. Mitral Valve Mitral valve thickened. Moderate mitral stenosis. Trace mitral regurgitation. Aortic Valve Aortic valve not well visualized. No aortic valve stenosis or regurgitation. Tricuspid Valve Structurally normal tricuspid valve. No tricuspid stenosis, regurgitation or prolapse. Pulmonic Valve Pulmonic valve not well visualized. Pericardium No pericardial effusion. Aorta Aortic root and proximal ascending aorta not well visualized. CONCLUSIONS Left ventricular ejection fraction is estimated at 55-60 %. No obvious regional wall motion abnormalities. Severe biatrial dilatation No significant valve dysfunction Previewed by: Dr Priyank Puente (Electronically Signed) Final Date: 24 June 2024 09:46
--- NOTE | 2024-06-24 14:25 | P.DS ---
Providers Date of admission: 06/21/24 15:58 Attending physician: Keeley Gasca Consults: 06/21/24 16:09 Consult Physician Urgent Consulting Provider: Yunier Leonardo Consult Reason/Comments: Chest pain, a-fib with RVR Do you want consulting provider notified?: Yes Primary care physician: Pavel Spaulding Hospital Course: Final Diagnosis Atrial fibrillation with RVR History of paroxysmal atrial fibrillation Chest pain, ruled out ACS likely secondary to atrial fibrillation Hyperlipidemia History of atrial fibrillation on Eliquis outpatient History of coronary artery disease, nonobstructive History of COPD, not in exacerbation History of solitary kidney with previous left nephrectomy Obesity with a BMI of 48.8 Discharge Disposition Patient is stable for discharge home. Patient to continue on oral flecainide and oral Cardizem. Patient to follow up with her PCP Dr. Pavel Spaulding in 1 to 2 days. Follow up with Dr Prescott in 1 week. Follow up with Dr. Ross Brock in 1 to 2 weeks. Follow back up with pain management services. Hospital Course This is a pleasant 69-year-old female who presented to the emergency department from the pain clinic for a routine visit and was noted to have elevated blood pressure and sent here for further evaluation. Patient was admitted and noted to be in atrial fibrillation with RVR. Patient reports she follows with Dr. Spaulding in the outpatient setting with a significant past medical history of atrial fibrillation, coronary artery disease, CVA, diabetes, GERD, hyperlipidemia, hypertension, osteoarthritis, chronic shoulder pain of the right, recurrent UTIs, right kidney removal, bilateral [id number] amputations at age 6 due to a defect, anxiety, continued ongoing nicotine dependence and denies any other illicit drug use or alcohol use. Labs reviewed show a mildly elevated white count of 11.6, hemoglobin stable at 15.7, platelets 380, sodium 140, potassium 4.7, BUN 21, creatinine 0.55, troponins x 3 were negative, urinalysis negative. Chest x-ray shows no acute cardiopulmonary process. EKG showing A-fib with RVR with a heart rate of 138. Patient was admitted for cardiology evaluation. Cardiology evaluated the patient as patient was placed on heparin and continued to be in A-fib and Cardizem has been increased. Cardiology has also added flecainide. Was cardioverted multiple times. Now in normal sinus rhythm. Will continue on oral Cardizem and oral flecainide at discharge. Repeat echocardiogram reveals an EF of 55 to 60% with severe biatrial dilation with no significant valvular dysfunction. She has been complaining of some abdominal discomfort was recently at [facility] back in January for the same had a nondiagnostic abdominal pelvis CT. A an abdominal x-ray was obtained prior to discharge which reveals a nonspecific bowel gas pattern without radiographic evidence for an acute process. She does have some curvature of the lumbosacral spine at L1-2 to L3 which could be attributing to some of the pain she is experiencing in her left lower quadrant this could be deferred pain. She is a bilateral amputee. She has been urinating without difficulty without evidence of any urinary retention. She has been cleared by cardiology for discharge home and she has been maintaining sinus mechanism post cardioversion. Her renal function is within normal limits,. Medically she is stable. Please see medication reconciliation for a list of current medications. Thank you for allowing us to participate in the care of this patient. The impression and plan of care has been dictated by Nurse Selene Prac titioner as directed. Dr. Alise MD I have performed a history and physical examination and medical decision making of this patient, discussed the same with the dictator, and agree with the dictators assessment and plan as written, documented as a scribe. Based on total visit time, I have performed more than 50% of this visit. Patient Condition at Discharge: Stable Plan - Discharge Summary Discharge Rx Participant: Yes New Discharge Prescriptions: New Flecainide [Tambocor] 50 mg PO Q12HR #60 tablet Continue ALPRAZolam [Xanax] 0.5 mg PO BID PRN PRN Reason: Anxiety busPIRone HCl [Buspar] 10 mg PO TID Pantoprazole Sodium [Protonix] 40 mg PO DAILY Apixaban [Eliquis] 5 mg PO BID #60 tab Ipratropium-Albuterol Nebulize [Duoneb 0.5 mg-3 mg/3 ml Soln] 3 ml INHALATION RT-QID Escitalopram Oxalate [Lexapro] 10 mg PO DAILY tiZANidine [Zanaflex] 4 mg PO Q8HR PRN 30 Days #90 tab PRN Reason: Muscle Spasm Dicyclomine [Bentyl] 20 mg PO TID dilTIAZem HCL [Cardizem CD] 240 mg PO DAILY Montelukast [Singulair] 10 mg PO HS Sennosides/Docusate Sodium [Senna-S 8.6-50 mg Tablet] 2 tab PO DAILY HYDROcodone/APAP 10-325MG [[place] 10-325] 1 tab PO Q6HR PRN 30 Days #120 tab PRN Reason: Pain Magnesium Oxide [Mag-Ox] 400 mg PO DAILY ondansetron HCL [Zofran] 8 mg PO BID PRN PRN Reason: Nausea And Vomiting traZODone HCL [Desyrel] 50 mg PO HS PRN PRN Reason: sleep Discharge Medication List ALPRAZolam [Xanax] 0.5 mg PO BID PRN 01/20/19 [History] busPIRone HCl [Buspar] 10 mg PO TID 12/25/19 [History] Pantoprazole Sodium [Protonix] 40 mg PO DAILY 08/28/20 [History] Apixaban [Eliquis] 5 mg PO BID #60 tab 12/12/20 [Rx] Ipratropium-Albuterol Nebulize [Duoneb 0.5 mg-3 mg/3 ml Soln] 3 ml INHALATION RT-QID 07/26/21 [History] Escitalopram Oxalate [Lexapro] 10 mg PO DAILY 11/28/21 [History] Dicyclomine [Bentyl] 20 mg PO TID 06/21/24 [History] HYDROcodone/APAP 10-325MG [[place] 10-325] 1 tab PO Q6HR PRN 30 Days #120 tab 06/21/24 [Rx] Magnesium Oxide [Mag-Ox] 400 mg PO DAILY 06/21/24 [History] Montelukast [Singulair] 10 mg PO HS 06/21/24 [History] Sennosides/Docusate Sodium [Senna-S 8.6-50 mg Tablet] 2 tab PO DAILY 06/21/24 [History] dilTIAZem HCL [Cardizem CD] 240 mg PO DAILY 06/21/24 [History] ondansetron HCL [Zofran] 8 mg PO BID PRN 06/21/24 [History] tiZANidine [Zanaflex] 4 mg PO Q8HR PRN 30 Days #90 tab 06/21/24 [Rx] traZODone HCL [Desyrel] 50 mg PO HS PRN 06/21/24 [History] Flecainide [Tambocor] 50 mg PO Q12HR #60 tablet 06/23/24 [Rx] Follow up Appointment(s)/Referral(s): Issac Prescott MD [STAFF PHYSICIAN] - 1 Week Pavel Spaulding MD [Primary Care Provider] - 1-2 days Maricarmen Brock MD [STAFF PHYSICIAN] - 1 Week Jamison Ngo MD [STAFF PHYSICIAN] - 1 Week Patient Instructions/Handouts: A-fib (Atrial Fibrillation) (DC), Chest Pain (DC), Urinary Tract Infection in Women (DC) Activity/Diet/Wound Care/Special Instructions: Follow back up with pain management on discharge Follow up with cardiology in 1 to 2 weeks Follow up with Dr. Brock Continue the bentyl for bowel/muscle spasms. Discharge Disposition: HOME SELF-CARE
== END 2024-06-23 18:11 | disposition home or self-care (01) | DRG 309 ==
LOC: EC 11:23 → 3SCARD 15:58
PROVIDERS: ADMIT Hospitalist; ATTEND Hospitalist
PROC: 5A2204Z Restoration of Cardiac Rhythm, Single (ICD-10-PCS; principal; 2024-06-22 07:30)
PROC: 5A2204Z Restoration of Cardiac Rhythm, Single (ICD-10-PCS; 2024-06-23)
DX: I48.19 Other persistent atrial fibrillation (principal); N39.0 Urinary tract infection, site not specified; Z68.42 Body mass index [BMI] 45.0-49.9, adult; Z89.611 Acquired absence of right leg above knee; Z89.612 Acquired absence of left leg above knee; J44.9 Chronic obstructive pulmonary disease, unspecified; E11.51 Type 2 diabetes mellitus with diabetic peripheral angiopathy without gangrene; I10 Essential (primary) hypertension; E66.9 Obesity, unspecified; I08.0 Rheumatic disorders of both mitral and aortic valves; I25.10 Atherosclerotic heart disease of native coronary artery without angina pectoris; E78.5 Hyperlipidemia, unspecified; F17.210 Nicotine dependence, cigarettes, uncomplicated; G89.29 Other chronic pain; F41.9 Anxiety disorder, unspecified; R51.9 Headache, unspecified; Z79.01 Long term (current) use of anticoagulants; Z98.1 Arthrodesis status; Z79.51 Long term (current) use of inhaled steroids; Z79.899 Other long term (current) drug therapy; Z90.5 Acquired absence of kidney; Z86.73 Personal history of transient ischemic attack (TIA), and cerebral infarction without residual deficits; Z87.440 Personal history of urinary (tract) infections
CPT/HCPCS: 36415; 71046; 74019; 80053; 81001; 83735; 84484; 85025; 85610; 85730; 87040; 87077; 87086; 87186; 92960; 93005; 93306; 93970; 94640; 96365; 96366; 96375; 96376; 99285

== ENCOUNTER → 2024-06-21 | Outpatient (CLI) | payer MEDICARE, OTHER ==
[2024-06-21 11:56] VITALS: BP 196/121; PULSE 66; RESP 18; TEMP 97.3
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
== END ==
LOC: PNWHC3 10:42
PROVIDERS: ATTEND Specialist
DX: M19.011 Primary osteoarthritis, right shoulder (principal); M79.2 Neuralgia and neuritis, unspecified; M77.8 Other enthesopathies, not elsewhere classified; F17.200 Nicotine dependence, unspecified, uncomplicated; Z88.2 Allergy status to sulfonamides; Z88.1 Allergy status to other antibiotic agents
CPT/HCPCS: 99211

== ENCOUNTER 2024-07-16 14:38 | Emergency (ER) | payer MEDICARE, OTHER ==
[2024-07-16 15:43] VITALS: TEMP 98.3
--- NOTE | 2024-07-16 16:26 | ED ---
Headache HPI - General Chief Complaint: Headache Stated Complaint: Headache Time Seen by Provider: 07/16/24 14:51 Source: RN notes reviewed Mode of arrival: EMS Limitations: physical limitation - History of Present Illness Initial Comments: This is a 69-year-old female with history of CVA, CAD, A-fib and DM presenting with daughter complaining of headache (05/11) and this hypertension x 1 week. Patient Dors is falling forward out of her wheelchair after going over a curb 1 week ago, falling face first onto the concrete. Patient was taken to [facility] the following day where a head and face CT revealed no fractures or intracranial hemorrhage. Patient had not taken her Eliquis that day or the following day but was advised to continue Eliquis use afterwards which she has been doing. Patient states headache on left side has been worsening since that time with associated blurred vision and dizziness. Daughter states patient's blood pressure has gone as high as 208/131 can tend to drop suddenly afterwards. States patient has had similar blood pressure issues in the past associated with A-fib that required cardioversion via Dr. Lowe. Patient denies nausea/vomiting, AMS, loss of consciousness at time of incident. MD Complaint: headache Onset/Timin -: days(s) Location: left Severity scale (1-10): 10 Quality: throbbing Consistency: constant Improves With: nothing Context: recent head injury Associated Symptoms: other (Blurred vision, dizziness) Other Symptoms: other (Labile blood pressure) - Related Data Home Medications Medication Instructions Recorded Confirmed ALPRAZolam [Xanax] 0.5 mg PO BID PRN 01/20/19 06/21/24 busPIRone HCl [Buspar] 10 mg PO TID 12/25/19 06/21/24 Pantoprazole Sodium [Protonix] 40 mg PO DAILY 08/28/20 06/21/24 Ipratropium-Albuterol Nebulize 3 ml INHALATION RT-QID 07/26/21 06/21/24 [Duoneb 0.5 mg-3 mg/3 ml Soln] Escitalopram Oxalate [Lexapro] 10 mg PO DAILY 11/28/21 06/21/24 Dicyclomine [Bentyl] 20 mg PO TID 06/21/24 06/21/24 Magnesium Oxide [Mag-Ox] 400 mg PO DAILY 06/21/24 06/21/24 Montelukast [Singulair] 10 mg PO HS 06/21/24 06/21/24 Sennosides/Docusate Sodium 2 tab PO DAILY 06/21/24 06/21/24 [Senna-S 8.6-50 mg Tablet] dilTIAZem HCL [Cardizem CD] 240 mg PO DAILY 06/21/24 06/21/24 ondansetron HCL [Zofran] 8 mg PO BID PRN 06/21/24 06/21/24 traZODone HCL [Desyrel] 50 mg PO HS PRN 06/21/24 06/21/24 Previous Rx's Medication Instructions Recorded Apixaban [Eliquis] 5 mg PO BID #60 tab 12/12/20 HYDROcodone/APAP 10-325MG [[place] 1 tab PO Q6HR PRN 30 Days #120 tab 06/21/24 10-325] tiZANidine [Zanaflex] 4 mg PO Q8HR PRN 30 Days #90 tab 06/21/24 Flecainide [Tambocor] 50 mg PO Q12HR #60 tablet 06/23/24 Allergies Allergy/AdvReac Type Severity Reaction Status Date / Time sulfamethoxazole Allergy Itching Verified 07/16/24 15:37 [From Septra] trimethoprim [From Septra] Allergy Itching Verified 07/16/24 15:37 levofloxacin [From Levaquin] AdvReac Muscle Pain Verified 07/16/24 15:37 nitrofurantoin AdvReac Unknown Verified 07/16/24 15:37 [From Macrobid] Review of Systems ROS Statement: Those systems with pertinent positive or pertinent negative responses have been documented in the HPI. ROS Other: All systems not noted in ROS Statement are negative. Past Medical History Past Medical History: Atrial Fibrillation, Coronary Artery Disease (CAD), CVA/TIA, Diabetes Mellitus, GERD/Reflux, Hyperlipidemia, Hypertension, Osteoarth ritis (OA) Additional Past Medical History / Comment(s): Chronic right shoulder pain. Breathing problems - Daughter unsure what. Hx urinary retention, nephrolithiasis, recurrent UTI, small cyst on left kidney, right kidney removed. Bilateral above the knee amputations at age 6 due to defect. "No longer Diabetic". History of Any Multi-Drug Resistant Organisms: ESBL Date of last positivie culture/infection: 12/25/19 ESBL MDRO Source:: Urine Past Surgical History: Appendectomy, Section, Cholecystectomy, Heart Catheterization, Hysterectomy, Orthopedic Surgery Additional Past Surgical History / Comment(s): Bilateral above the knee am putation, cervical fusion, right arm hardware, left nephrostolithotomy, section X3, bilateral oophorectomy due to cysts, bilateral carpal tunnel release, right kidney removed. Past Anesthesia/Blood Transfusion Reactions: No Reported Reaction, Motion Sickness Additional Past Anesthesia/Blood Transfusion Reaction / Comment(s): Received blood in 1978-no reaction reported. Past Psychological History: Anxiety Smoking Status: Current some day smoker Past Alcohol Use History: None Reported Past Drug Use History: None Reported - Past Family History Father History Unknown: Yes Family Medical History: Cancer, Myocardial Infarction (MO) Additional Family Medical History / Comment(s): Father had lung cancer-went into remission. He of a massive MO in his 60's. Mother History Unknown: Yes Family Medical History: Cancer Additional Family Medical History / Comment(s): Mother of lung cancer at age 54 yrs. Sister(s) History Unknown: Yes Family Medical History: Cancer Additional Family Medical History / Comment(s): Lung cancer. Daughter(s) History Unknown: Yes Family Medical History: Cancer Additional Family Medical History / Comment(s): Skin cancer. General Exam Limitations: physical limitation General appearance: alert, in no apparent distress Head exam: Present: normocephalic, other ( Large hematoma noted across bridge of nose. No obvious crepitus/deformity, open wounds on remaining scalp/skull) Eye exam: Present: normal appearance, PERRL, EOMI, periorbital tenderness (Diffuse ecchymosis and tenderness across face including inferior orbits/maxillary regions.). Absent: scleral icterus, conjunctival injection ENT exam: Present: normal exam, mucous membranes moist, TM's normal bilaterally (Negative hemotympanum), normal external ear exam (Negative Márquez sign) Neck exam: Present: normal inspection. Absent: tenderness, meningismus, lymphadenopathy Respiratory exam: Present: normal lung sounds bilaterally. Absent: respiratory distress, wheezes, rales, rhonchi, stridor Cardiovascular Exam: Present: regular rate, normal rhythm, normal heart sounds. Absent: systolic murmur, diastolic murmur, rubs, gallop, clicks GI/Abdominal exam: Present: soft, normal bowel sounds. Absent: distended, tenderness, guarding, rebound, rigid Extremities exam: Present: normal inspection, full ROM, normal capillary refill. Absent: tenderness, pedal edema, joint swelling, calf tenderness Back exam: Present: normal inspection, vertebral tenderness (Positive thoracolumbar tenderness without crepitus or step-off) Neurological exam: Present: alert, oriented X3, CN II-XII intact Psychiatric exam: Present: normal affect, normal mood Skin exam: Present: warm, dry, intact, normal color. Absent: rash Course Vital Signs 07/16/24 15:38 Temperature 98.3 F Pulse Rate 63 Respiratory 20 Rate Blood Pressure 154/82 O2 Sat by Pulse 97 Oximetry Medical Decision Making - Medical Decision Making Was pt. sent in by a medical professional or institution ([facility], [employer], urgent care, hospital, or assisted...) When possible be specific @ -[No] Did you speak to anyone other than the patient for history (EMS, parent, family, police, friend...)? What history was obtained from this source @ -[No] Did you review nursing and triage notes (agree or disagree)? Why? @ -[I reviewed and agree with nursing and triage notes] Were old charts reviewed (outside hosp., previous admission, EMS record, old EKG, old radiological studies, urgent care reports/EKG's, assisted records)? Report findings @ -[No old charts were reviewed] Differential Diagnosis (chest pain, altered mental status, abdominal pain women, abdominal pain men, vaginal bleeding, weakness, fever, dyspnea, syncope, headache, dizziness, GI bleed, back pain, seizure, CVA, palpatations, mental health, musculoskeletal)? @ -Differential Headache: Migraine, tension, cluster, carbon monoxide, central venous thrombosis, pension karma temporal arteritis, acute closure glaucoma, intercranial hemorrhage, mastoiditis, sinusitis, head injury, this is not meant to be an all-inclusive list. EKG interpreted by me (3pts min.). @ -Sinus rhythm without ST changes or T wave inversion. Ventricular rate 60 bpm, JALIL 176 ms, QRS duration 73 ms, QTc 423 ms. X-rays interpreted by me (1pt min.). @ -[None done] CT interpreted by me (1pt min.). @ -[None done] U/S interpreted by me (1pt. min.). @ -[None done] What testing was considered but not performed or refused? (CT, X-rays, U/S, labs)? Why? @ -[None] What meds were considered but not given or refused? Why? @ -[None] Did you discuss the management of the patient with other professionals (omayra archer i.e. , PA, [employer]ER, lab, RT, psych nurse, vp digital marketing social media and crm, supervising architect, teacher, optics technical officer, hospice case manager)? Give summary @ -[No] Was smoking cessation discussed for >3mins.? @ -[No] Was critical care preformed (if so, how long)? @ -[No] Were there social determinants of health that impacted care today? How? (Homelessness, low income, unemployed, alcoholism, drug addiction, transportation, low edu. Level, literacy, decrease access to med. care, long-term, rehab)? @ -[No] Was there de-escalation of care discussed even if they declined (Discuss DNR or withdrawal of care, Hospice)? DNR status @ -[No] What co-morbidities impacted this encounter? (DM, HTN, Smoking, COPD, CAD, Cancer, CVA, ARF, Chemo, Hep., AIDS, mental health diagnosis, sleep apnea, morbid obesity)? @ -CVA, CAD, DM, A-fib Was patient admitted / discharged? Hospital course, mention meds given and route, prescriptions, significant lab abnormalities, going to OR and other pertinent info. @ -[hospital course] Undiagnosed new problem with uncertain prognosis? @ -[No] Drug Therapy requiring intensive monitoring for toxicity (Heparin, Nitro, Insulin, Cardizem)? @ -[No] Were any procedures done? @ -[No] Diagnosis/symptom? @ -Facial contusion, headache, fall Acute, or Chronic, or Acute on Chronic? @ -Acute Uncomplicated (without systemic symptoms) or Complicated (systemic symptoms)? @ -Complicated Side effects of treatment? @ -[No] Exacerbation, Progression, or Severe Exacerbation? @ -[No] Poses a threat to life or bodily function? How? (Chest pain, USA, MO, pneumonia, PE, COPD, DKA, ARF, appy, cholecystitis, CVA, Diverticulitis, Homicidal, Suicidal, threat to staff... and all critical care pts) @ -[No] - Lab Data Result diagrams: 07/16/24 16:14 07/16/24 16:14 Lab Results 07/16/24 07/16/24 07/16/24 Range/Units 16:14 16:14 16:14 WBC 9.4 (3.8-10.6) k/uL RBC 5.25 (3.80-5.40) m/uL Hgb 15.3 (11.4-16.0) gm/dL Hct 47.1 H (34.0-46.0) % MCV 89.7 (80.0-100.0) fL MCH 29.2 (25.0-35.0) pg MCHC 32.5 (31.0-37.0) g/dL RDW 16.0 H (11.5-15.5) % Plt Count 314 (150-450) k/uL MPV 7.3 Neutrophils % 59 % Lymphocytes % 33 % Monocytes % 4 % Eosinophils % 1 % Basophils % 1 % Neutrophils # 5.5 (1.3-7.7) k/uL Lymphocytes # 3.1 (1.0-4.8) k/uL Monocytes # 0.4 (0-1.0) k/uL Eosinophils # 0.1 (0-0.7) k/uL Basophils # 0.1 (0-0.2) k/uL Anisocytosis Slight PT 11.3 (10.0-12.5) sec INR 1.0 (<1.2) APTT 26.1 (22.0-30.0) sec Sodium 139 (137-145) mmol/L Potassium 4.2 (3.5-5.1) mmol/L Chloride 110 H (98-107) mmol/L Carbon Dioxide 22 (22-30) mmol/L Anion Gap 7 mmol/L BUN 23 H (7-17) mg/dL Creatinine 0.61 (0.52-1.04) mg/dL Est GFR (CKD-EPI)AfAm >90 (>60 ml/min/1.73 sqM) Est GFR (CKD-EPI)NonAf >90 (>60 ml/min/1.73 sqM) Glucose 93 (74-99) mg/dL Calcium 9.4 (8.4-10.2) mg/dL Total Bilirubin 0.3 (0.2-1.3) mg/dL AST 25 (14-36) U/L ALT 18 (4-34) U/L Alkaline Phosphatase 89 (38-126) U/L Troponin I (0.000-0.034) ng/mL Total Protein 6.5 (6.3-8.2) g/dL Albumin 3.8 (3.5-5.0) g/dL 07/16/24 Range/Units 16:14 WBC (3.8-10.6) k/uL RBC (3.80-5.40) m/uL Hgb (11.4-16.0) gm/dL Hct (34.0-46.0) % MCV (80.0-100.0) fL MCH (25.0-35.0) pg MCHC (31.0-37.0) g/dL RDW (11.5-15.5) % Plt Count (150-450) k/uL MPV Neutrophils % % Lymphocytes % % Monocytes % % Eosinophils % % Basophils % % Neutrophils # (1.3-7.7) k/uL Lymphocytes # (1.0-4.8) k/uL Monocytes # (0-1.0) k/uL Eosinophils # (0-0.7) k/uL Basophils # (0-0.2) k/uL Anisocytosis PT (10.0-12.5) sec INR (<1.2) APTT (22.0-30.0) sec Sodium (137-145) mmol/L Potassium (3.5-5.1) mmol/L Chloride (98-107) mmol/L Carbon Dioxide (22-30) mmol/L Anion Gap mmol/L BUN (7-17) mg/dL Creatinine (0.52-1.04) mg/dL Est GFR (CKD-EPI)AfAm (>60 ml/min/1.73 sqM) Est GFR (CKD-EPI)NonAf (>60 ml/min/1.73 sqM) Glucose (74-99) mg/dL Calcium (8.4-10.2) mg/dL Total Bilirubin (0.2-1.3) mg/dL AST (14-36) U/L ALT (4-34) U/L Alkaline Phosphatase (38-126) U/L Troponin I <0.012 (0.000-0.034) ng/mL Total Protein (6.3-8.2) g/dL Albumin (3.5-5.0) g/dL Disposition Clinical Impression: Migraine headache, Contusion of face Disposition: HOME SELF-CARE Condition: Good Instructions (If sedation given, give patient instructions): Acute Headache (ED) Is patient prescribed a controlled substance at d/c from ED?: No Referrals: Pavel Spaulding MD [Primary Care Provider] - 1-2 days Time of Disposition: 18:42
[2024-07-16] MEDS: HYDROmorphone 0.5 MG/0.5 ML SYRINGE IVP STA (16:40)
[2024-07-16 16:49] LABS: Anisocytosis Slight; Basophils # (A) 0.1 k/uL (0-0.2); Basophils % (A) 1 %; Eosinophils # (A) 0.1 k/uL (0-0.7); Eosinophils % (A) 1 %; HCT 47.1 % (34.0-46.0); HGB 15.3 gm/dL (11.4-16.0); Lymphocytes # (A) 3.1 k/uL (1.0-4.8); Lymphocytes % (A) 33 %; MCH 29.2 pg (25.0-35.0); MCHC 32.5 g/dL (31.0-37.0); MCV 89.7 fL (80.0-100.0); Mean Platelet Volume 7.3; Monocytes # (A) 0.4 k/uL (0-1.0); Monocytes % (A) 4 %; Neutrophils # (A) 5.5 k/uL (1.3-7.7); Neutrophils % (A) 59 %; Platelet Count 314 k/uL (150-450); RBC 5.25 m/uL (3.80-5.40); WBC 9.4 k/uL (3.8-10.6)
--- NOTE | 2024-07-16 16:53 | XR ---
EXAMINATION TYPE: XR thoraco lumbar junction DATE OF EXAM: 07/16/2024 4:47 PM COMPARISON: Previous radiographs of the spine dated 05/02/2018. CLINICAL INDICATION: Female, 69 years old with history of Thoracolumbar TTP without crepitus; [facility] TECHNIQUE: XR thoraco lumbar junction - Frontal, lateral and coned in L5-S1 lateral views of the spin e. FINDINGS: Dextroconvex curvature of the lumbosacral spine centered at L2-L3. Multilevel intervertebra l disc space loss throughout the thoracic and lumbar spine with multilevel anterior defect formation. Multilevel facet arthropathy, most dense in the lower lumbar spine. Visualized thoracic and lumbar s pine vertebral body heights appear maintained. No acute fracture or traumatic subluxation. Previous c holecystectomy. IMPRESSION: 1. No radiographic evidence of acute fracture or subluxation. 2. Multilevel thoracolumbar spine degenerative changes as above. [facility], , 07/16/2024 4:50 PM
[2024-07-16 16:57] LABS: Partial Thromboplastin Time 26.1 sec (22.0-30.0); Prothrombin Time 11.3 sec (10.0-12.5)
--- NOTE | 2024-07-16 17:16 | CT ---
EXAMINATION TYPE: CT brain cspine wo con DATE OF EXAM: 07/16/2024 5:07 PM COMPARISON: Previous CT study 08/30/2019. CLINICAL INDICATION: Female, 69 years old with history of pain; Pt to ED via EMS for HTN and JONES x 1 w marshall since fall on face. TECHNIQUE: Brain: Multiple axial CT images of the brain were obtained without IV contrast. Cspine: Axial CT images from the skull base to the inferior aspect of T2 we obtained without intraven ous contrast. Coronal and sagittal reformatted images were also reviewed. . CT DLP: Combined 1156.5 mGycm, Automated exposure control for dose reduction was used. FINDINGS: Brain: Extra-axial spaces: No abnormal extra-axial fluid collections. Ventricular system: Dilatation in proportion to cerebral atrophy. Cerebral parenchyma: No acute intraparenchymal hemorrhage or mass effect. Scattered hypoattenuating areas are seen within the white matter. Cerebellum: Unremarkable. Mass effect: No evidence of midline shift. Intracranial vasculature: unremarkable Soft tissues: Possible small right parietal scalp hematoma. Calvarium/osseous structures: No depressed skull fracture. Paranasal sinuses and mastoid air cells: Clear. Visualized orbits: Bilateral aphakia Cervical spine: Fracture: None. Osseous structures: Straightening of the normal cervical spine lordotic curvature. Anterior cervical spinal fusion hardware visualized spanning C3-C6 with multilevel intervertebral disc spacer devices. No evidence of periprosthetic lucency. Remaining levels demonstrate uncovertebral/facet hypertrophy. Likely posterior disc osteophyte complex at C6-C7. Vertebral alignment: Within normal limits. Spinal canal/Neural Foramina: No definite evidence of high-grade spinal canal stenosis. Neck soft tissues: Prevertebral soft tissues are within normal limits. Other: The airway is patent. The lung apices are clear. IMPRESSION: 1. No acute intracranial process. 2. No acute fracture or traumatic subluxation of the cervical spine. [facility], , 07/16/2024 5:14 PM
[2024-07-16 17:17] LABS: ALT 18 U/L (4-34); AST 25 U/L (14-36); African American GFR (CKD) >90 (>60 ml/min/1.73 sqM); Albumin 3.8 g/dL (3.5-5.0); Alkaline Phosphatase 89 U/L (38-126); Anion Gap 7 mmol/L; Blood Urea Nitrogen 23 mg/dL (7-17); Calcium 9.4 mg/dL (8.4-10.2); Carbon Dioxide 22 mmol/L (22-30); Chloride 110 mmol/L (98-107); Glucose 93 mg/dL (74-99); Non-African American GFR(CKD) >90 (>60 ml/min/1.73 sqM); Potassium 4.2 mmol/L (3.5-5.1); Sodium 139 mmol/L (137-145); Total Bilirubin 0.3 mg/dL (0.2-1.3); Total Protein 6.5 g/dL (6.3-8.2)
--- NOTE | 2024-07-16 17:19 | CT ---
EXAMINATION TYPE: CT facial bones wo con DATE OF EXAM: 07/16/2024 5:07 PM COMPARISON: None. CLINICAL INDICATION: Female, 69 years old with history of Fall on face 1 week ago; [facility], Pt to ED via EMS for HTN and JONES x 1 week since fall on face. TECHNIQUE: Multiple unenhanced axial CT images were obtained of the facial bones soft tissue and bone windows. Coronal, axial and sagittal reformatted images were also provided in soft tissue and bone windows and submitted for interpretation. Additional 3-D reformatted images were obtained on a [employer] workstation. . CT DLP: Combined 1156.5 mGycm, Automated exposure control for dose reduction was used. FINDINGS: There is no evidence of fracture, subluxation, dislocation, or significant soft tissue swelling. The orbital contents are unremarkable.The temporal-mandibular joints appear symmetric. The visualized por tion of the paranasal sinuses demonstrate mucosal thickening in the left maxillary sinus and througho ut the ethmoid air cells. IMPRESSION: No evidence of a facial bone fracture. [facility], , 07/16/2024 5:16 PM
[2024-07-16] MEDS: diphenhydrAMINE 50 MG/ML 1 ML VIAL IVP STA (18:29)
[2024-07-16] MEDS: DEXAMETHASONE SOD PHOSPHATE 4 MG/ML 1 ML VIAL IVP STA (18:30)
[2024-07-16] MEDS: METOCLOPRAMIDE 5 MG/ML 2 ML VIAL IVP STA (18:31)
[2024-07-16 19:33] VITALS: BP 177/97; PULSE 64; RESP 18
== END 2024-07-16 19:36 | disposition home or self-care (01) ==
LOC: EC 14:38
DX: S00.83XA Contusion of other part of head, initial encounter (principal); G43.909 Migraine, unspecified, not intractable, without status migrainosus; E11.9 Type 2 diabetes mellitus without complications; I25.10 Atherosclerotic heart disease of native coronary artery without angina pectoris; I48.91 Unspecified atrial fibrillation; F17.200 Nicotine dependence, unspecified, uncomplicated; Z88.2 Allergy status to sulfonamides; Z86.73 Personal history of transient ischemic attack (TIA), and cerebral infarction without residual deficits; Z88.1 Allergy status to other antibiotic agents; Z88.8 Allergy status to other drugs, medicaments and biological substances; Z79.899 Other long term (current) drug therapy; W18.30XA Fall on same level, unspecified, initial encounter
CPT/HCPCS: 36415; 93005; 80053; 84484; 85025; 85610; 85730; 72080; 72125; 70486; 70450; 99285; 96374; 96375; J1200; J1100; J2765; J1171

== ENCOUNTER → 2024-12-06 | Outpatient (CLI) | payer MEDICARE, OTHER ==
[2024-12-06 14:40] VITALS: BP 228/113; PULSE 83; RESP 18; TEMP 98.9
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
== END ==
LOC: PNWHC3 14:22
PROVIDERS: ATTEND Specialist
DX: M79.2 Neuralgia and neuritis, unspecified (principal); M19.011 Primary osteoarthritis, right shoulder; M25.411 Effusion, right shoulder; M75.81 Other shoulder lesions, right shoulder; F17.200 Nicotine dependence, unspecified, uncomplicated; Z88.1 Allergy status to other antibiotic agents; Z88.2 Allergy status to sulfonamides; Z88.0 Allergy status to penicillin

== ENCOUNTER → 2025-01-05 | Outpatient (CLI) | payer MEDICARE, OTHER ==
[2025-01-05 15:37] LABS: BUN/Creat Ratio 32.57 Ratio (12.00-20.00); Blood Urea Nitrogen 22.8 mg/dL (9.0-27.0); Calcium 8.8 mg/dL (8.7-10.3); Carbon Dioxide 22.4 mmol/L (21.6-31.8); Chloride 106 mmol/L (96-109); Glucose 80 mg/dL (70-110); Potassium 4.4 mmol/L (3.5-5.5); Sodium 141 mmol/L (135-145)
[2025-01-05 19:03] LABS: Eosinophils % (A) 3.1 %; HCT 45.2 % (37.2-46.3); HGB 14.6 g/dL (12.0-15.0); Lymphocytes % (A) 36.2 %; MCH 30.8 pg (27.0-32.0); MCHC 32.3 g/dL (32.0-37.0); MCV 95.4 FL (80.0-97.0); Mean Platelet Volume 10.6 FL (9.5-12.2); Monocytes # (A) 0.54 X 10*3/uL (0.20-1.00); Monocytes % (A) 5.6 %; NRBC Per 100 WBC 0 X 10*3/uL (0.00-0.01); Neutrophils # (A) 5.18 X 10*3/uL (1.80-7.70); Neutrophils % (A) 53.7 %; Platelet Count 310 X 10*3/uL (140-440); RBC 4.74 X 10*6/uL (4.10-5.20); RDW 13.8 % (11.5-14.5); WBC 9.66 X 10*3/uL (4.50-10.00)
[2025-01-05 22:15] LABS: Bacteria,Urine None Seen (None Seen); Calcium Oxalate Crystals,Urine Present (None Seen)
[2025-01-05 22:23] LABS: Appearance,Urine Clear (Clear); Bilirubin,Urine Negative (Negative); Blood,Urine Negative (Negative); Color,Urine Yellow (Yellow); Ketones,Urine Negative (Negative); Nitrite,Urine Negative (Negative); PH, Urine 5.5; Specific Gravity,Urine 1.034 (1.001-1.030); Urobilinogen,Urine 0.2
== END | disposition home or self-care (01) ==
LOC: LABPAT 11:22
PROVIDERS: ATTEND Urology
DX: R33.9 Retention of urine, unspecified (principal)
CPT/HCPCS: 80048; 81001; 85025; 87077; 87086; 87186

== ENCOUNTER 2025-02-25 21:06 | Observation (INO) | payer MEDICARE, OTHER ==
--- NOTE | 2025-02-25 21:16 | ED ---
Chest Pain HPI - General Chief Complaint: Chest Pain Stated Complaint: Hypertension Time Seen by Provider: 02/25/25 21:14 Source: patient, EMS, RN notes reviewed, old records reviewed Mode of arrival: EMS Limitations: no limitations - History of Present Illness Initial Comments: This is a 69 female to ER for chest pain chest pain abdominal pain uncontrolled blood pressure more so epigastric abdominal pain with nausea vomiting spitting up history of pancreatitis history of uncontrolled hypertension history of chest pain and symptoms are progressively worsening today with main complaint being increasing blood pressure MD Complaint: chest pain -: days(s) Onset: during rest Pain Location: substernal, left chest Pain Radiation: abdomen Severity: moderate Severity scale (1-10): 7 Quality: aching Consistency: constant Improves With: nothing Worsens With: nothing Anginal Symptoms: vomiting, dyspnea, sense of impending doom Other Symptoms: palpitations Treatments Prior to Arrival: none - Related Data Home Medications Medication Instructions Recorded Confirmed ALPRAZolam [Xanax] 0.5 mg PO BID PRN 01/20/19 06/21/24 busPIRone HCl [Buspar] 10 mg PO TID 12/25/19 06/21/24 Pantoprazole Sodium [Protonix] 40 mg PO DAILY 08/28/20 06/21/24 Ipratropium-Albuterol Nebulize 3 ml INHALATION RT-QID 07/26/21 06/21/24 [Duoneb 0.5 mg-3 mg/3 ml Soln] Escitalopram Oxalate [Lexapro] 10 mg PO DAILY 11/28/21 06/21/24 Dicyclomine [Bentyl] 20 mg PO TID 06/21/24 06/21/24 Magnesium Oxide [Mag-Ox] 400 mg PO DAILY 06/21/24 06/21/24 Montelukast [Singulair] 10 mg PO HS 06/21/24 06/21/24 Sennosides/Docusate Sodium 2 tab PO DAILY 06/21/24 06/21/24 [Senna-S 8.6-50 mg Tablet] dilTIAZem HCL [Cardizem CD] 240 mg PO DAILY 06/21/24 06/21/24 ondansetron HCL [Zofran] 8 mg PO BID PRN 06/21/24 06/21/24 traZODone HCL [Desyrel] 50 mg PO HS PRN 06/21/24 06/21/24 Previous Rx's Medication Instructions Recorded Apixaban [Eliquis] 5 mg PO BID #60 tab 12/12/20 Flecainide [Tambocor] 50 mg PO Q12HR #60 tablet 06/23/24 HYDROcodone/APAP 10-325MG [[place] 1 tab PO Q4-6H PRN 30 Days #150 tab 12/06/24 10-325] HYDROcodone/APAP 10-325MG [[place] 1 tab PO Q4-6H PRN 30 Days #150 tab 12/06/24 10-325] HYDROcodone/APAP 10-325MG [[place] 1 tab PO Q4-6H PRN 30 Days #150 tab 12/06/24 10-325] methocarbamoL [Robaxin-750] 750 mg PO TID PRN 30 Days #90 tab 12/06/24 Allergies Allergy/AdvReac Type Severity Reaction Status Date / Time sulfamethoxazole Allergy Itching Verified 07/16/24 15:37 [From Septra] trimethoprim [From Septra] Allergy Itching Verified 07/16/24 15:37 levofloxacin [From Levaquin] AdvReac Muscle Pain Verified 07/16/24 15:37 nitrofurantoin AdvReac Unknown Verified 07/16/24 15:37 [From Macrobid] Review of Systems ROS Statement: Those systems with pertinent positive or pertinent negative responses have been documented in the HPI. ROS Other: All systems not noted in ROS Statement are negative. EKG Findings - EKG Comments: EKG Findings:: EKG is sinus 74 OK 175 QRS 82 QTc 424 - EKG Results: EKG: interpreted by SUSAND Past Medical History Past Medical History: Atrial Fibrillation, Coronary Artery Disease (CAD), CVA/TIA, Diabetes Mellitus, GERD/Reflux, Hyperlipidemia, Hypertension, Osteoarthritis (OA) Additional Past Medical History / Comment(s): Chronic right shoulder pain. Breathing problems - Daughter unsure what. Hx urinary retention, nephrolithiasis, recurrent UTI, small cyst on left kidney, right kidney removed. Bilateral above the knee amputations at age 6 due to defect. "No longer Diabetic". History of Any Multi-Drug Resistant Organisms: ESBL Date of last positivie culture/infection: 12/25/19 ESBL MDRO Source:: Urine Past Surgical History: Appendectomy, Section, Cholecystectomy, Heart Catheterization, Hysterectomy, Orthopedic Surgery Additional Past Surgical History / Comment(s): Bilateral above the knee amputation, cervical fusion, right arm hardware, left nephrostolithotomy, section X3, bilateral oophorectomy due to cysts, bilateral carpal tunnel release, right kidney removed. Past Anesthesia/Blood Transfusion Reactions: No Reported Reaction, Motion Sickness Additional Past Anesthesia/Blood Transfusion Reaction / Comment(s): Received blood in 1978-no reaction reported. Past Psychological History: Anxiety Smoking Status: Current some day smoker Past Alcohol Use History: None Reported Past Drug Use History: None Reported - Past Family History Father History Unknown: Yes Family Medical History: Cancer, Myocardial Infarction (PA) Additional Family Medical History / Comment(s): Father had lung cancer-went into remission. He of a massive PA in his 60's. Mother History Unknown: Yes Family Medical History: Cancer Additional Family Medical History / Comment(s): Mother of lung cancer at a ge 54 yrs. Sister(s) History Unknown: Yes Family Medical History: Cancer Additional Family Medical History / Comment(s): Lung cancer. Daughter(s) History Unknown: Yes Family Medical History: Cancer Additional Family Medical History / Comment(s): Skin cancer. General Exam Limitations: no limitations General appearance: alert, in no apparent distress Head exam: Present: atraumatic, normocephalic, normal inspection Eye exam: Present: normal appearance, PERRL, EOMI. Absent: scleral icterus, conjunctival injection, periorbital swelling ENT exam: Present: normal exam, mucous membranes moist Neck exam: Present: normal inspection. Absent: tenderness, meningismus, lymphad enopathy Respiratory exam: Present: normal lung sounds bilaterally. Absent: respiratory distress, wheezes, rales, rhonchi, stridor Cardiovascular Exam: Present: regular rate, normal rhythm, normal heart sounds. Absent: systolic murmur, diastolic murmur, rubs, gallop, clicks GI/Abdominal exam: Present: soft, normal bowel sounds. Absent: distended, tenderness, guarding, rebound, rigid Extremities exam: Present: normal inspection, full ROM, normal capillary refill. Absent: tenderness, pedal edema, joint swelling, calf tenderness Back exam: Present: normal inspection Neurological exam: Present: alert, oriented X3, CN II-XII intact Psychiatric exam: Present: normal affect, normal mood Skin exam: Present: warm, dry, intact, normal color. Absent: rash Course Vital Signs 02/25/25 02/25/25 02/26/25 21:10 23:16 00:18 Temperature 98.2 F Pulse Rate 81 84 64 Respiratory 24 18 18 Rate Blood Pressure 195/129 228/130 186/81 O2 Sat by Pulse 94 L 98 98 Oximetry - Reevaluation(s) Reevaluation #1: 02/26/25 00:51 Medical records reviewed Reevaluation #2: 02/26/25 00:51 Blood pressure and pain are difficult to control requiring multiple doses of medication here in the ER Reevaluation #3: 02/26/25 00:51 Patient informed of results and questions answered Reevaluation #4: Was pt. sent in by a medical professional or institution ([facility] Christina, BI[employer] CUTTING MACHINE [employer]PERATOR [employer], urgent care, hospital, or senior care...) When possible be specific @ -no Did you speak to anyone other than the patient for history (EMS, parent, family, police, friend...)? What history was obtained from this source @ -no Did you review nursing and triage notes (agree or disagree)? Why? @ -agree Are old charts reviewed (outside hosp., previous admission, EMS record, old EKG, old radiological studies, urgent care reports/EKG's, senior care records)? Report findings @ -yes Differential Diagnosis (chest pain, altered mental status, abdominal pain women, abdominal pain men, vaginal bleeding, weakness, fever, dyspnea, syncope, headache, dizziness, GI bleed, back pain, seizure, CVA, palpatations, mental health, musculoskeletal)? @ -prior EKG interpreted by me (3pts min.). @ -yes X-rays interpreted by me (1pt min.). @ -yes negative for acute disease CT interpreted by me (1pt min.). @ -no U/S interpreted by me (1pt. min.). @ -no What testing was considered but not performed or refused? (CT, X-rays, U/S, labs)? Why? @ -none What meds were considered but not given or refused? Why? @ -none Did you discuss the management of the patient with other professionals (professionals i.e. , PA, BIAS CUTTING MACHINE OPERATOR [employer], lab, RT, psych nurse, rn social services, attorney recruiter, teacher, accounting officer, director case)? Give summary @ -no Was smoking cessation discussed for >3mins.? @ -no Was critical care preformed (if so, how long)? @ -no Were there social determinants of health that impacted care today? How? (Homelessness, low income, unemployed, alcoholism, drug addiction, transportation, low edu. Level, literacy, decrease access to med. care, fci, rehab)? @ -none Was there de-escalation of care discussed even if they declined (Discuss DNR or withdrawal of care, Hospice)? DNR status @ -no What co-morbidities impacted this encounter? (DM, HTN, Smoking, COPD, CAD, Cancer, CVA, ARF, Chemo, Hep., AIDS, mental health diagnosis, sleep apnea, morbid obesity)? @ -none Was patient admitted / discharged? Hospital course, mention meds given and route, prescriptions, significant lab abnormalities, going to OR and other pertinent info. @ - Undiagnosed new problem with uncertain prognosis? @ -no Drug Therapy requiring intensive monitoring for toxicity (Heparin, Nitro, Insulin, Cardizem)? @ -no Were any procedures done? @ -no Diagnosis/symptom? @ - Acute, or Chronic, or Acute on Chronic? @ -Acute Uncomplicated (without systemic symptoms) or Complicated (systemic symptoms)? @ -Complicated Side effects of treatment? @ -no Exacerbation, Progression, or Severe Exacerbation? @ -exacerbation Poses a threat to life or bodily function? How? (Chest pain, USA, PA, pneumonia, PE, COPD, DKA, ARF, appy, cholecystitis, CVA, Diverticulitis, Homicidal, Suicidal, threat to staff... and all critical care pts) @ -yes Reevaluation #5: Differential Chest Pain: Stable Angina, Unstable Angina, STEMI, NSTEMI Aortic Dissection, Pneumothorax, Musculoskeletal, Esophageal Spasm GERD, Cholecystitis, Pancreatitis, Zoster, this is not meant to be an all-inclusive list. Differential Abdominal Pain Women: Appendicitis, Cholecystitis, diverticulosis, ischemic bowel, pancreatitis, hepatitis, UTI, gastroenteritis, AAA, incarcerated hernia, bowel obstruction, constipation, inflammatory bowel, hepatitis, peptic ulcer disease, splenic infarction, perforated viscus, vulvitis, ovarian torsion, PID, kidney stone, placenta abruption, this is not meant to be an all-inclusive list - Consultations Consultation #1: Spoke with EM who agrees to admit this patient Chest Pain MDM - MDM 69 female admitted for chest pain observation hypertension uncontrolled. History of hypertensive issues, chest pain is persistent improved blood pressures improved abdominal pain also pancreatitis Disposition Clinical Impression: Acute pancreatitis, Chest pain, Chronic pain, Lower abdominal pain Disposition: ADMITTED IP TO THIS [facility] Condition: Fair Referrals: Pavel Spaulding MD [Primary Care Provider] - 1-2 days
[2025-02-25] MEDS: LABETALOL 5 MG/ML VIAL MDV IVP STA (23:07)
[2025-02-25] MEDS: HYDROmorphone 1 MG/ML 1 ML SYRINGE IVP STA (23:09)
[2025-02-25] MEDS: cloNIDine 0.3 MG/24HR PATCH TRANSDERM STA (23:12)
[2025-02-25] MEDS: MORPHINE SULFATE 4 MG/ML SYRINGE IV STA (23:20)
[2025-02-25 23:21] LABS: Basophils # (A) 0.09 10*3/uL (0.00-0.10); Basophils % (A) 0.8 %; Eosinophils # (A) 0.19 10*3/uL (0.04-0.35); Eosinophils % (A) 1.7 %; HCT 43.4 % (37.2-46.3); HGB 15.1 g/dL (12.0-15.0); Lymphocytes # (A) 3.74 10*3/uL (0.90-5.00); Lymphocytes % (A) 32.9 %; MCH 32.1 pg (27.0-32.0); MCHC 34.8 g/dL (32.0-37.0); MCV 92.3 fL (80.0-97.0); Monocytes # (A) 0.69 10*3/uL (0.20-1.00); Monocytes % (A) 6.1 %; Neutrophils # (A) 6.64 10*3/uL (1.80-7.70); Neutrophils % (A) 58.2 %; Platelet Count 342 10*3/uL (140-440); RBC 4.70 10*6/uL (4.10-5.20); RDW 12.7 % (11.5-14.5); WBC 11.38 10*3/uL (4.50-10.00)
[2025-02-25 23:37] LABS: ALT 14 U/L (4-34); AST 26 U/L (14-36); African American GFR (CKD) >90 (>60 ml/min/1.73 sqM); Albumin 4.1 g/dL (3.5-5.0); Alkaline Phosphatase 87 U/L (38-126); Anion Gap 9 mmol/L; Blood Urea Nitrogen 18 mg/dL (7-17); Calcium 9.5 mg/dL (8.4-10.2); Carbon Dioxide 22 mmol/L (22-30); Chloride 108 mmol/L (98-107); Glucose 90 mg/dL (74-99); Lipase 302 U/L (23-300); Magnesium 1.7 mg/dL (1.6-2.3); Non-African American GFR(CKD) >90 (>60 ml/min/1.73 sqM); Potassium 4.7 mmol/L (3.5-5.1); Sodium 139 mmol/L (137-145); Total Protein 7.1 g/dL (6.3-8.2)
[2025-02-25 23:44] LABS: NT-Pro-B-Type Natriuretic Pept 834 pg/mL
[2025-02-26 00:07] LABS: INR 1.0 (<1.2); Partial Thromboplastin Time 26.2 sec (22.0-30.0); Prothrombin Time 11.1 sec (10.0-12.5)
[2025-02-26] MEDS: SODIUM CHLORIDE 0.9% 500 ML 500 ML IV STA (00:19)
[2025-02-26] MEDS: LABETALOL 5 MG/ML VIAL MDV IVP STA (00:44)
[2025-02-26] MEDS ORDERED: NALOXONE 0.4 MG/ML 1 ML VIAL IV PRN (00:48)
--- NOTE | 2025-02-26 00:59 | CT ---
EXAM: CT Abdomen and Pelvis With Intravenous Contrast CLINICAL HISTORY: CT Reason: pain TECHNIQUE: Axial computed tomography images of the abdomen and pelvis with intravenous contrast. CTDI is 46.3 mGy and DLP is 1944.4 mGy-cm. This CT exam was performed using one or more of the following dose reduction techniques: automated exposure control, adjustment of the mA and/or kV according to patient size, and/or use of iterative reconstruction technique. COMPARISON: 07/29/2021 FINDINGS: Lung bases: Unremarkable. No mass. No consolidation. Heart: [id number] cardiomegaly with severe mitral calcification. ABDOMEN: Liver: The liver is enlarged measuring 20 cm craniocaudad. No focal liver lesion is seen. Gallbladder and bile ducts: There is biliary duct dilation post cholecystectomy with the common bile duct measuring up to 1.5 cm. No choledocholithiasis identified. Pancreas: Unremarkable. No mass. No ductal dilation. Spleen: Unremarkable. No splenomegaly. Adrenals: Unremarkable. No mass. Kidneys and ureters: Delayed images show normal renal contrast excretion from the left kidney. The right kidney is absent. No hydronephrosis. Stomach and bowel: See below. PELVIS: Appendix: Bowel loops are nondilated. The appendix appears to have been removed. There are scattered gas fluid levels within the right and transverse colon which is abnormal and suggests ileus and/or enteritis. No pneumoperitoneum, free fluid, or abscess is seen. Bladder: Unremarkable. No mass. Reproductive: The uterus is absent. ABDOMEN and PELVIS: Intraperitoneal space: See above. Bones/joints: Mild degenerative changes throughout the spine. No acute fracture or destructive bone lesion is seen. No dislocation. Soft tissues: Severe muscular atrophy over the lower torso and lower extremities, unchanged. Vasculature: Severe atherosclerotic changes of the infrarenal abdominal aorta which tapers down to 9 mm in diameter. There is moderate diffuse narrowing of the common iliac and external iliac arteries bilaterally which appears chronic. No acute thrombus is seen. The configuration is unchanged since previous. No abdominal aortic aneurysm. Lymph nodes: Unremarkable. No enlarged lymph nodes. IMPRESSION: 1. Bowel loops are nondilated. The appendix appears to have been removed. There are scattered gas fluid levels within the right and transverse colon which is abnormal and suggests ileus and/or enteritis. No pneumoperitoneum, free fluid, or abscess is seen. 2. There is biliary duct dilation post cholecystectomy with the common bile duct measuring up to 1.5 cm. No choledocholithiasis identified.
--- NOTE | 2025-02-26 01:04 | CT ---
EXAM: CT Angiography Chest With Intravenous Contrast CLINICAL HISTORY: CT Reason: pain TECHNIQUE: Axial computed tomographic angiography images of the chest with intravenous contrast. CTDI is 19 mGy and DLP is 553.8 mGy-cm. This CT exam was performed using one or more of the following dose reduction techniques: automated exposure control, adjustment of the mA and/or kV according to patient size, and/or use of iterative reconstruction technique. MIP reconstructed images were created and reviewed. COMPARISON: 12/10/2020 FINDINGS: Pulmonary arteries: The pulmonary arterial tree is well opacified with contrast. No pulmonary emboli are identified. Aorta: The thoracic aorta is mildly calcified but nondilated. There is no aneurysm or dissection. Lungs: The lungs are well inflated and clear. No acute infiltrate or consolidation is seen. Pleural space: Unremarkable. No significant effusion. No pneumothorax. Heart: Unremarkable. No cardiomegaly. No significant pericardial effusion. No evidence of RV dysfunction. Mediastinum: 6 mm circumferential wall thickening of a gas-filled esophagus distended to 3 cm in diameter suggesting esophagitis and/or esophageal dysmotility. No hiatal hernia is seen. Bones/joints: Mild degenerative changes throughout the spine. No acute fracture or destructive bone lesion is seen. No dislocation. Soft tissues: Unremarkable. Lymph nodes: Unremarkable. No enlarged lymph nodes. IMPRESSION: 1. The pulmonary arterial tree is well opacified with contrast. No pulmonary emboli are identified. 2. 6 mm circumferential wall thickening of a gas-filled esophagus distended to 3 cm in diameter suggesting esophagitis and/or esophageal dysmotility. No hiatal hernia is seen. 3. The thoracic aorta is mildly calcified but nondilated. There is no aneurysm or dissection. 4. The lungs are well inflated and clear. No acute infiltrate or consolidation is seen. No pneumothorax or pleural effusion.
[2025-02-26] MEDS: ASPIRIN 325 MG TAB PO STA (01:09)
[2025-02-26] MEDS: ASPIRIN 81 MG PO STA (01:09)
[2025-02-26] MEDS: SODIUM CHLORIDE 0.9% 1,000 ML IV SCH ×2 (01:28→16:27)
[2025-02-26] MEDS: HYDROmorphone 1 MG/ML 1 ML SYRINGE IVP STA (01:29)
[2025-02-26] MEDS: HYDROmorphone 1 MG/ML 1 ML SYRINGE IVP PRN (03:19)
[2025-02-26] MEDS: DILTIAZEM CD 240 MG CAP.ER.24H PO SCH (09:23)
[2025-02-26] MEDS: APIXABAN 5 MG TAB PO SCH (09:23)
[2025-02-26] MEDS: FLECAINIDE 50 MG TAB PO SCH (09:23)
[2025-02-26] MEDS: LOSARTAN 25 MG TAB PO SCH (09:27)
--- NOTE | 2025-02-26 10:50 | P.CRDCN ---
History of Present Illness History of present illness: HISTORY OF PRESENT ILLNESS: This is a 69-year-old female with a past medical history significant for CAD, hypertension, hyperlipidemia, paroxysmal atrial fibrillation, COPD and nicotine dependence. Patient follows in the office with Dr. Prescott. We have been asked to see the patient in consultation for chest pain. Patient examined at the bedside. Patient states that she presented to the hospital with a chief complaint of a headache. She states that she checked her blood pressure at home and it was found to be elevated. She reports that she can usually tell when her blood pressure is running high. She does report a history of hypertension and states that she was recently started on losartan by Dr. Prescott. Patient's blood pressure upon admission to the hospital was elevated at 228/130. Her blood pressure is within normal limits this morning. She currently denies any chest pain or pressure. She denies any shortness of breath. She does report having a cough. She is a current cigarette smoker and smokes 1 pack every 2-1/2 days. DIAGNOSTICS: - EKG reveals sinus mechanism with no signs of acute ischemia. - Chest CTA: Negative for pulmonary embolism. - Laboratory data: Troponin negative x 3 - Current home cardiac medications include Eliquis 5 mg twice a day, flecainide 50 mg twice a day, Cardizem CD 240 mg daily, and losartan 25 mg daily. - Most recent echocardiogram obtained in June 2024 reveals ejection fraction 55 to 60%, no obvious regional wall motion abnormalities, trace MR. - Cardiac catheterization history: 2019 revealing diffuse coronary artery disease with ectasia and 30 to 40% lesions involving RCA, circumflex, and proximal LAD. Medical management was recommended. - Patient underwent Lexiscan stress test in September 2024 which was negative for ischemia REVIEW OF SYSTEMS: At the time of my exam: CONSTITUTIONAL: Denies fever or chills. HEENT: Denies blurred vision, vision changes, or eye pain. Denies hemoptysis CARDIOVASCULAR: Denies chest pain. Denies orthopnea. Denies PND. Denies palpitations RESPIRATORY: Denies shortness of breath. GASTROINTESTINAL: Denies abdominal pain. Denies nausea or vomiting. HEMATOLOGIC: Denies bleeding disorders. GENITOURINARY: Denies any blood in urine. SKIN: Denies pruitis. Denies rash. PHYSICAL EXAM: VITAL SIGNS: Reviewed. GENERAL: Well-developed in no acute distress. HEENT: Head is normocephalic. Pupils are equal, round. Sclerae anicteric. Mucous membranes of the mouth are moist. Neck supple. No JVD or thyromegaly LUNGS: Respirations even and unlabored. Lungs essentially clear to auscultation bilaterally. HEART: Regular rate and rhythm. S1 and S2 heard. ABDOMEN: Soft. Nondistended. Nontender. EXTREMITIES: Normal range of motion. No clubbing or cyanosis. Bilateral [id number] amputations NEUROLOGIC: Awake and alert. Oriented x 3. ASSESSMENT: Hypertensive urgency, resolved Headache, resolved Paroxysmal atrial fibrillation Bilateral [id number] amputation secondary to defect per patient Hyperlipidemia Hypertension History of COPD Nicotine dependence Patient smokes 1 pack/2.5 days PLAN: An acute coronary event has been ruled out Obtain 2D echo to assess cardiac structure and function Resume home cardiac medications including Eliquis, Cardizem, flecainide, and losartan Continue to monitor blood pressure Smoking cessation recommended No plans for stress testing or cardiac catheterization at this time Further recommendations pending patient course Nurse practitioner note has been reviewed by physician. Signing provider agrees with the documented findings, assessment, and plan of care documented by CERTIFIED FAMILY MEDIATOR as a scribe. Past Medical History Past Medical History: Atrial Fibrillation, Coronary Artery Disease (CAD), CVA/TIA, Diabetes Mellitus, GERD/Reflux, Hyperlipidemia, Hypertension, Osteoarthritis (OA) Additional Past Medical History / Comment(s): Chronic right shoulder pain. Breathing problems - Daughter unsure what. Hx urinary retention, nephrolithiasis, recurrent UTI, small cyst on left kidney, right kidney removed. Bilateral above the knee amputations at age 6 due to defect. "No longer Diabetic". History of Any Multi-Drug Resistant Organisms: ESBL Date of last positivie culture/infection: 12/25/19 ESBL MDRO Source:: Urine Past Surgical History: Appendectomy, Section, Cholecystectomy, Heart Catheterization, Hysterectomy, Orthopedic Surgery Additional Past Surgical History / Comment(s): Bilateral above the knee amputation, cervical fusion, right arm hardware, left nephrostolithotomy, section X3, bilateral oophorectomy due to cysts, bilateral carpal tunnel release, right kidney removed. Past Anesthesia/Blood Transfusion Reactions: No Reported Reaction, Motion Sickness Additional Past Anesthesia/Blood Transfusion Reaction / Comment(s): Received blood in 1978-no reaction reported. Past Psychological History: Anxiety Additional Psychological History / Comment(s): She is independent. She in a bilateral AKA and gets around in a power wheelchair. She has a hospital bed. She no longer drives but takes the bus. Smoking Status: Current every day smoker Past Alcohol Use History: None Reported Additional Past Alcohol Use History / Comment(s): Started smoking at age 19 and the amount she smokes varies, normally smokes a pack every two days. Past Drug Use History: None Reported - Past Family History Father History Unknown: Yes Family Medical History: Cancer, Myocardial Infarction ([place]) Additional Family Medical History / Comment(s): Father had lung cancer-went into remission. He of a massive [place] in his 60's. Mother History Unknown: Yes Family Medical History: Cancer Additional Family Medical History / Comment(s): Mother of lung cancer at age 54 yrs. Sister(s) History Unknown: Yes Family Medical History: Cancer Additional Family Medical History / Comment(s): Lung cancer. Daughter(s) History Unknown: Yes Family Medical History: Cancer Additional Family Medical History / Comment(s): Skin cancer. Medications and Allergies Home Medications Medication Instructions Recorded Confirmed Type ALPRAZolam [Xanax] 0.5 mg PO BID PRN 01/20/19 06/21/24 History busPIRone HCl [Buspar] 10 mg PO TID 12/25/19 06/21/24 History Pantoprazole Sodium [Protonix] 40 mg PO DAILY 08/28/20 06/21/24 History Apixaban [Eliquis] 5 mg PO BID #60 tab 12/12/20 06/21/24 Rx Ipratropium-Albuterol Nebulize 3 ml INHALATION RT-QID 07/26/21 06/21/24 History [Duoneb 0.5 mg-3 mg/3 ml Soln] Escitalopram Oxalate [Lexapro] 10 mg PO DAILY 11/28/21 06/21/24 History Dicyclomine [Bentyl] 20 mg PO TID 06/21/24 06/21/24 History Magnesium Oxide [Mag-Ox] 400 mg PO DAILY 06/21/24 06/21/24 History Montelukast [Singulair] 10 mg PO HS 06/21/24 06/21/24 History Sennosides/Docusate Sodium 2 tab PO DAILY 06/21/24 06/21/24 History [Senna-S 8.6-50 mg Tablet] dilTIAZem HCL [Cardizem CD] 240 mg PO DAILY 06/21/24 06/21/24 History ondansetron HCL [Zofran] 8 mg PO BID PRN 06/21/24 06/21/24 History traZODone HCL [Desyrel] 50 mg PO HS PRN 06/21/24 06/21/24 History Flecainide [Tambocor] 50 mg PO Q12HR #60 tablet 06/23/24 Rx HYDROcodone/APAP 10-325MG [[place] 1 tab PO Q4-6H PRN 30 Days #150 tab 12/06/24 Rx 10-325] HYDROcodone/APAP 10-325MG [[place] 1 tab PO Q4-6H PRN 30 Days #150 tab 12/06/24 Rx 10-325] HYDROcodone/APAP 10-325MG [[place] 1 tab PO Q4-6H PRN 30 Days #150 tab 12/06/24 Rx 10-325] methocarbamoL [Robaxin-750] 750 mg PO TID PRN 30 Days #90 tab 12/06/24 Rx Allergies Allergy/AdvReac Type Severity Reaction Status Date / Time sulfamethoxazole Allergy Itching Verified 07/16/24 15:37 [From Septra] trimethoprim [From Septra] Allergy Itching Verified 07/16/24 15:37 levofloxacin [From Levaquin] AdvReac Muscle Pain Verified 07/16/24 15:37 nitrofurantoin AdvReac Unknown Verified 07/16/24 15:37 [From Macrobid] Physical Exam Vitals: Vital Signs Temp Pulse Pulse Pulse Resp BP BP 02/26/25 07:23 98.2 F 60 17 02/26/25 02:39 98.2 F 60 18 103/70 02/26/25 02:00 97.9 F 95 14 139/77 02/26/25 01:27 63 18 149/78 02/26/25 00:18 64 18 186/81 02/25/25 23:16 84 18 228/130 02/25/25 21:10 98.2 F 81 24 195/129 BP Pulse Ox 02/26/25 07:23 123/66 96 02/26/25 02:39 94 L 02/26/25 02:00 96 02/26/25 01:27 96 02/26/25 00:18 98 02/25/25 23:16 98 02/25/25 21:10 94 L Intake and Output 02/25/25 02/26/25 02/26/25 22:59 06:59 14:59 Other: Weight 73.482 kg 73.482 kg Results 02/25/25 22:39 02/25/25 22:39 Cardiac Enzymes 02/25/25 02/25/25 02/26/25 Range/Units 22:39 22:39 04:25 AST 26 (14-36) U/L Troponin I <0.012 <0.012 (0.000-0.034) ng/mL 02/26/25 Range/Units 06:21 AST (14-36) U/L Troponin I <0.012 (0.000-0.034) ng/mL Coagulation 02/25/25 Range/Units 22:39 PT 11.1 (10.0-12.5) sec APTT 26.2 (22.0-30.0) sec CBC 02/25/25 Range/Units 22:39 WBC 11.38 H (4.50-10.00) 10*3/uL RBC 4.70 (4.10-5.20) 10*6/uL Hgb 15.1 H (12.0-15.0) g/dL Hct 43.4 (37.2-46.3) % Plt Count 342 (140-440) 10*3/uL Comprehensive Metabolic Panel 02/25/25 Range/Units 22:39 Sodium 139 (137-145) mmol/L Potassium 4.7 (3.5-5.1) mmol/L Chloride 108 H (98-107) mmol/L Carbon Dioxide 22 (22-30) mmol/L BUN 18 H (7-17) mg/dL Creatinine 0.54 (0.52-1.04) mg/dL Glucose 90 (74-99) mg/dL Calcium 9.5 (8.4-10.2) mg/dL AST 26 (14-36) U/L ALT 14 (4-34) U/L Alkaline Phosphatase 87 (38-126) U/L Total Protein 7.1 (6.3-8.2) g/dL Albumin 4.1 (3.5-5.0) g/dL Current Medications Generic Name Dose Route Start Last Admin Trade Name Freq PRN Reason Stop Dose Admin Apixaban 5 mg 02/26/25 09:00 02/26/25 09:23 Apixaban 5 Mg Tab PO 5 mg BID REGINA Administration Protocol Diltiazem HCl 240 mg 02/26/25 09:00 02/26/25 09:23 Diltiazem Cd 240 Mg Cap.Er.24h PO 240 mg DAILY REGINA Administration Flecainide Acetate 50 mg 02/26/25 09:00 02/26/25 09:23 Flecainide 50 Mg Tab PO 50 mg Q12HR REGINA Administration Hydromorphone HCl 1 mg 02/26/25 00:48 02/26/25 09:21 Hydromorphone 1 Mg/Ml 1 Ml Syringe IVP 1 mg Q3HR PRN Administration Severe Pain (Scale 7 to 10) Losartan Potassium 25 mg 02/26/25 09:00 02/26/25 09:27 Losartan 25 Mg Tab PO 25 mg DAILY REGINA Administration Naloxone HCl 0.2 mg 02/26/25 00:48 Naloxone 0.4 Mg/Ml 1 Ml Vial IV Q2M PRN Opioid Reversal Ondansetron HCl 4 mg 02/26/25 00:48 Ondansetron 4 Mg/2 Ml Vial IVP Q8HR PRN Nausea And Vomiting Intake and Output 02/25/25 02/26/25 02/26/25 22:59 06:59 14:59 Other: Weight 73.482 kg 73.482 kg 02/25/25 22:39 02/25/25 22:39
--- NOTE | 2025-02-26 16:24 | P.HPIM ---
History of Present Illness H&P Date: 02/26/25 Patient is a 69 female with a PMH of A-fib, coronary artery disease, CVA/TIA, uncontrolled hypertension, diabetes, hyperlipidemia, COPD and history of pancreatitis. Patient has a history of smoking 1 pack of cigarettes every 2.5 days patient patient presented with headache, abdominal pain with nausea vomiting and chest pain upper left region. Patient's blood pressure on admission was 195/129 and repeat was 228/130. Blood pressure today is 139/77. Patient denies any chest pain at this time but complaining of diffuse abdominal pain and shortness of breath last night. Patient is currently on 1 L nasal cannula at 96%. Patient had cardiac catheterization in 2018. EKG showed normal sinus rhythm. Chest CTA negative for pulmonary embolism Laboratory troponin negative x 3 Echocardiogram in June 2024 showed ejection fraction of 55 to 60% WBC 11.3. RBC 4.7 Hemoglobin 15.1 Hematocrit 43.4 Potassium 4.7 BUN 18 Creatinine 0.54 troponin negative x 3 Pro BNP 834 Lipase 300 Vitals Blood pressure 195/129 > 228/130 > 96/81 > 148/78 HR 81 > 84 > 64 > 63 O2 96% on 1 L nasal cannula ED documentation reviewed and case discussed with ED provider. Dr. Junior Review of systems: Pertinent positives and negatives as discussed in HPI, a complete review of systems was performed and all other systems are negative. Physical examination: Vital signs reviewed General: non toxic, no distress, slight SOB Head: normocephalic, symmetric Eyes: EOMI, anicteric sclera Neck: No cervical lymphadenopathy Mouth: mucus membranes moist Cardiovascular: reg rate and rhythm, no murmur Lungs: CTA bilateral Abdominal: soft, tender to palpation, diffuse Ext: muscle strength 5 out of 5 in upper extrem, bilateral above knee amputations. Neuro: no gross focal neuro deficits Psych: Alert, oriented to person, place, and time Assessment/Plan: #. Diffuse abdominal pain/chest pain/shortness of breath. # Ileus # Hypertensive urgency now resolved -labetalol 20 mg IV, clonidine 0.3 mg patch, losartan 25 g daily ACS ruled out by cardiology, no stress test or cath at this time per cardio Possible ileus Diffuse abdominal pain Diarrhea multiple times yesterday, no formed stool Scattered gas/fluid levels within the right and transverse colon on CT abdomen pelvis N.p.o. for bowel rest except medications #. A.fib RVR - Continue home medications, flecainide 50 mg twice daily, diltiazem 240 mg suhail y apixaban 5 mg bid # mild Acute Pancreatitis CT abdomen pelvis negative for signs of pancreatitis N.p.o. for bowel rest DVT prophylaxis: Eliquis The patient is admitted with an anticipated less than than 2 midnight stay for evaluation of diffuse abdominal pain and chest pain CODE STATUS: Full code Discussed with: Dr. Junior Anticipated discharge place: [facility] MD PGY-1 FM Dictation was produced using [employer] dictation software. please excuse any grammatical, word or spelling errors. Past Medical History Past Medical History: Atrial Fibrillation, Coronary Artery Disease (CAD), CVA/TIA, Diabetes Mellitus, GERD/Reflux, Hyperlipidemia, Hypertension, Osteoarthritis (OA) Additional Past Medical History / Comment(s): Chronic right shoulder pain. Breathing problems - Daughter unsure what. Hx urinary retention, n ephrolithiasis, recurrent UTI, small cyst on left kidney, right kidney removed. Bilateral above the knee amputations at age 6 due to defect. "No longer Diabetic". History of Any Multi-Drug Resistant Organisms: ESBL Date of last positivie culture/infection: 12/25/19 ESBL MDRO Source:: Urine Past Surgical History: Appendectomy, Section, Cholecystectomy, Heart Catheterization, Hysterectomy, Orthopedic Surgery Additional Past Surgical History / Comment(s): Bilateral above the knee amputation, cervical fusion, right arm hardware, left nephrostolithotomy, harris phil section X3, bilateral oophorectomy due to cysts, bilateral carpal tunnel release, right kidney removed. Past Anesthesia/Blood Transfusion Reactions: No Reported Reaction, Motion Sickness Additional Past Anesthesia/Blood Transfusion Reaction / Comment(s): Received blood in 1978-no reaction reported. Past Psychological History: Anxiety Additional Psychological History / Comment(s): She is independent. She in a bilateral AKA and gets around in a power wheelchair. She has a hospital bed. She no longer drives but takes the bus. Smoking Status: Current every day smoker Past Alcohol Use History: None Reported Additional Past Alcohol Use History / Comment(s): Started smoking at age 19 and the amount she smokes varies, normally smokes a pack every two days. Past Drug Use History: None Reported - Past Family History Father History Unknown: Yes Family Medical History: Cancer, Myocardial Infarction ([place]) Additional Family Medical History / Comment(s): Father had lung cancer-went into remission. He of a massive [place] in his 60's. Mother History Unknown: Yes Family Medical History: Cancer Additional Family Medical History / Comment(s): Mother of lung cancer at age 54 yrs. Sister(s) History Unknown: Yes Family Medical History: Cancer Additional Family Medical History / Comment(s): Lung cancer. Daughter(s) History Unknown: Yes Family Medical History: Cancer Additional Family Medical History / Comment(s): Skin cancer. Medications and Allergies Home Medications Medication Instructions Recorded Confirmed Type ALPRAZolam [Xanax] 0.5 mg PO BID PRN 01/20/19 02/26/25 History busPIRone HCl [Buspar] 10 mg PO TID 12/25/19 02/26/25 History Pantoprazole Sodium [Protonix] 40 mg PO DAILY 08/28/20 02/26/25 History Apixaban [Eliquis] 5 mg PO BID #60 tab 12/12/20 02/26/25 Rx Escitalopram Oxalate [Lexapro] 10 mg PO DAILY 11/28/21 02/26/25 History Dicyclomine [Bentyl] 20 mg PO TID 06/21/24 02/26/25 History Magnesium Oxide [Mag-Ox] 400 mg PO DAILY 06/21/24 02/26/25 History Montelukast [Singulair] 10 mg PO HS 06/21/24 02/26/25 History Sennosides/Docusate Sodium 2 tab PO DAILY 06/21/24 02/26/25 History [Senna-S 8.6-50 mg Tablet] dilTIAZem HCL [Cardizem CD] 240 mg PO DAILY 06/21/24 02/26/25 History traZODone HCL [Desyrel] 50 mg PO HS PRN 06/21/24 02/26/25 History Flecainide [Tambocor] 50 mg PO Q12HR #60 tablet 06/23/24 02/26/25 Rx Atorvastatin [Lipitor] 80 mg PO DAILY 02/26/25 02/26/25 History Cetirizine HCl [Zyrtec] 10 mg PO DAILY 02/26/25 02/26/25 History Losartan [Cozaar] 25 mg PO DAILY 02/26/25 02/26/25 History HYDROcodone/APAP 10-325MG [[place] 1 tab PO Q4-6H PRN 30 Days #150 tab 02/28/25 Rx 10-325] methocarbamoL [Robaxin-750] 750 mg PO TID PRN 30 Days #90 tab 02/28/25 Rx tiZANidine [Zanaflex] 4 mg PO Q8HR PRN 30 Days #90 tab 02/28/25 Rx Allergies Allergy/AdvReac Type Severity Reaction Status Date / Time sulfamethoxazole Allergy Itching Verified 02/26/25 12:22 [From Septra] trimethoprim [From Septra] Allergy Itching Verified 02/26/25 12:22 levofloxacin [From Levaquin] AdvReac Muscle Pain Verified 02/26/25 12:22 nitrofurantoin AdvReac Unknown Verified 02/26/25 12:22 [From Macrobid] Physical Exam Vitals: Vital Signs Temp Pulse Pulse Pulse Resp BP BP 02/26/25 07:23 98.2 F 60 17 02/26/25 02:39 98.2 F 60 18 103/70 02/26/25 02:00 97.9 F 95 14 139/77 02/26/25 01:27 63 18 149/78 02/26/25 00:18 64 18 186/81 02/25/25 23:16 84 18 228/130 02/25/25 21:10 98.2 F 81 24 195/129 BP Pulse Ox 02/26/25 07:23 123/66 96 02/26/25 02:39 94 L 02/26/25 02:00 96 02/26/25 01:27 96 02/26/25 00:18 98 02/25/25 23:16 98 02/25/25 21:10 94 L Intake and Output 02/25/25 02/26/25 02/26/25 22:59 06:59 14:59 Other: Voiding Method Bedpan Weight 73.482 kg 73.482 kg Results CBC & Chem 7: 03/01/25 05:47 03/01/25 05:47 Labs: Abnormal Lab Results - Last 24 Hours (Table) 02/25/25 02/25/25 Range/Units 22:39 22:39 WBC 11.38 H (4.50-10.00) 10*3/uL Hgb 15.1 H (12.0-15.0) g/dL MCH 32.1 H (27.0-32.0) pg Chloride 108 H (98-107) mmol/L BUN 18 H (7-17) mg/dL Lipase 302 H (23-300) U/L Thrombosis Risk Factor Assmnt - Choose All That Apply Any of the Below Risk Factors Present?: Yes Each Risk Factor Represents 2 Points: Age 61-74 years Thrombosis Risk Factor Assessment Total Risk Factor Score: 2 Thrombosis Risk Factor Assessment Level: Low Risk Assessment and Plan (1) Abdominal pain Current Visit: No Status: Acute Code(s): R10.9 - UNSPECIFIED ABDOMINAL PAIN SNOMED Code(s): 09429392 (2) Hypertensive urgency Current Visit: Yes Status: Acute Code(s): I16.0 - HYPERTENSIVE URGENCY SNOMED Code(s): 442899187 (3) Chest pain Current Visit: Yes Status: Acute Code(s): R07.9 - CHEST PAIN, UNSPECIFIED SNOMED Code(s): 91374697 (4) Atrial fibrillation with RVR Current Visit: No Status: Acute Code(s): I48.91 - UNSPECIFIED ATRIAL FIBRILLATION SNOMED Code(s): 590520876491392 Plan: Attestation Attestation/ Aerographer Note: Attestation to History and physical, Participation (I saw and evaluated the patient with the Resident, and I reviewed and discussed the patient with the Resident and agree with the Resident's findings and plans as documented above., management reviewed and discussed), I agree with findings & plan, Provider Signature (ERIKA TAYLOR, LEONARD Tapia Time with Patient: Greater than 30
[2025-02-26] MEDS: HYDROcodone/APAP 10-325MG 1 EACH TAB PO PRN (16:27)
[2025-02-26] MEDS: SENNOSIDES-DOCUSATE SODIUM 1 EACH TAB PO STA (16:27)
[2025-02-26] MEDS: DICYCLOMINE 20 MG TAB PO SCH (16:27)
[2025-02-26] MEDS: ONDANSETRON 4 MG/2 ML VIAL IVP PRN (18:06)
[2025-02-26] MEDS: MONTELUKAST 10 MG TAB PO SCH (21:08)
[2025-02-27] MEDS: PANTOPRAZOLE 40 MG TABLET PO SCH ×2 (06:01→15:59)
--- NOTE | 2025-02-27 07:58 | CA ---
Transthoracic Echo Report Name: Karma Greco Age: 69 Gender: F : 1955 Exam Date: 02/26/2025 13:38 Exam Location: [facility] Ht (in): 67 Wt (lb): 162 Ordering Physician: Nisha Joshi Attending/Referring Phys: [id number], Adi Physical Medicine Specialist Elizabeth Estrella, LUIS Procedure CPT: Indications: CP, HTN Cardiac Hx: Technical Quality: Technically difficult study Contrast 1: Definity Total Dose (mL): 2 Contrast 2: Total Dose (mL): MEASUREMENTS (Male / Female) Normal Values 2D ECHO LV Diastolic Diameter PLAX 5.0 cm 4.2 - 5.9 / 3.9 - 5.3 cm LV Systolic Diameter PLAX 2.9 cm IVS Diastolic Thickness 1.0 cm 0.6 - 1.0 / 0.6 - 0.9 cm LVPW Diastolic Thickness 1.1 cm 0.6 - 1.0 / 0.6 - 0.9 cm LV Relative Wall Thickness 0.4 RV Internal Dim ED PLAX 3.2 cm LA Systolic Diameter LX 3.1 cm 3.0 - 4.0 / 2.7 - 3.8 cm M-MODE Aortic Root Diameter MM 2.6 cm DOPPLER AV Peak Velocity 266.0 cm/s AV Peak Gradient 28.3 mmHg AV Mean Velocity 153.2 cm/s AV Mean Gradient 12.5 mmHg AV Velocity Time Integral 54.0 cm LVOT Peak Velocity 136.0 cm/s LVOT Peak Gradient 7.4 mmHg LVOT Velocity Time Integral 32.6 cm MV Peak Velocity 176.6 cm/s MV Peak Gradient 12.5 mmHg MV Mean Velocity 93.2 cm/s MV Mean Gradient 4.1 mmHg MV Velocity Time Integral 52.9 cm FINDINGS Left Ventricle Left ventricular ejection fraction is estimated at 55-60 %. Left ventricular cavity size normal. Mildly increased posterior wall thickness. Mid cavitary obstruction with mid gradient of 23 mmHg Right Ventricle Normal right ventricular size. Unable to estimate the right ventricular systolic pressure. Right Atrium Right atrium not well visualized. Left Atrium Left atrium not well visualized. Mitral Valve Mitral valve not well visualized. Aortic Valve Aortic valve not well visualized. No aortic valve stenosis or regurgitation. Tricuspid Valve Tricuspid valve not well visualized. Pulmonic Valve Pulmonic valve not well visualized. No pulmonic regurgitation. Pericardium No pericardial effusion. Echo free space anterior to the right ventricle likely represents a fat pad. Aorta Normal size aortic root and proximal ascending aorta. CONCLUSIONS Technically difficult study. Definity ECHO contrast used for improved visualization of the endocardial borders (inadequate visualization of two or more contiguous segments). Normal left ventricular size and systolic function with mid cavity gradient Very limited Doppler study Previewed by: Dr. Laurel Sarmiento MD (Electronically Signed) Final Date: 27 February 2025 07:57
[2025-02-27 08:23] LABS: BUN/Creat Ratio 38.00 Ratio (12.00-20.00); Blood Urea Nitrogen 19.0 mg/dL (9.0-27.0); Chloride 110 mmol/L (96-109); Glucose 76 mg/dL (70-110); Potassium 4.3 mmol/L (3.5-5.5); Sodium 139 mmol/L (135-145)
[2025-02-27 08:24] LABS: ALT 13 U/L (8-44); AST 18 U/L (13-35); Albumin 3.5 g/dL (3.8-4.9); Albumin/Globulin Ratio 1.67 Ratio (1.60-3.17); Alkaline Phosphatase 82 U/L (41-126); Anion Gap 10.10 mmol/L (4.00-12.00); Basophils # (A) 0.08 X 10*3/uL (0.00-0.10); Basophils % (A) 0.7 %; Calcium 8.1 mg/dL (8.7-10.3); Carbon Dioxide 18.9 mmol/L (21.6-31.8); Eosinophils # (A) 0.36 X 10*3/uL (0.04-0.35); Eosinophils % (A) 3.2 %; Globulin 2.1 g/dL (1.6-3.3); HCT 40.7 % (37.2-46.3); HGB 13.2 g/dL (12.0-15.0); Immature Grans, Automated 0.50 %; Lymphocytes # (A) 3.52 X 10*3/uL (0.90-5.00); Lymphocytes % (A) 31.5 %; MCH 31.8 pg (27.0-32.0); MCHC 32.4 g/dL (32.0-37.0); MCV 98.1 FL (80.0-97.0); Magnesium 1.7 mg/dL (1.5-2.4); Monocytes # (A) 0.82 X 10*3/uL (0.20-1.00); Monocytes % (A) 7.3 %; NRBC Per 100 WBC 0 X 10*3/uL (0.00-0.01); Neutrophils # (A) 6.34 X 10*3/uL (1.80-7.70); Neutrophils % (A) 56.8 %; Platelet Count 293 X 10*3/uL (140-440); RBC 4.15 X 10*6/uL (4.10-5.20); RDW 13.3 % (11.5-14.5); Total Protein 5.6 g/dL (6.2-8.2); WBC 11.18 X 10*3/uL (4.50-10.00)
[2025-02-27] MEDS: SENNOSIDES-DOCUSATE SODIUM 1 EACH TAB PO SCH (09:07)
[2025-02-27] MEDS: MAGNESIUM OXIDE 400 MG TAB PO SCH (09:07)
[2025-02-27] MEDS: ATORVASTATIN 80 MG TAB PO SCH (09:07)
[2025-02-27] MEDS: ESCITALOPRAM 10 MG TAB PO SCH (09:08)
--- NOTE | 2025-02-27 12:08 | P.PN ---
Subjective HISTORY OF PRESENT ILLNESS: This is a 69-year-old female with a past medical history significant for CAD, hypertension, hyperlipidemia, paroxysmal atrial fibrillation, COPD and nicotine dependence. Patient follows in the office with Dr. Prescott. We have been asked to see the patient in consultation for chest pain. [facility] Patient states that she presented to the hospital with a chief complaint of a headache. She states that she checked her blood pressure at home and it was found to be elevated. She reports that she can usually tell when her blood pressure is running high. She does report a history of hypertension and states that she was recently started on losartan by Dr. Prescott. Patient's blood pressure upon admission to the hospital was elevated at 228/130. Her blood pressure is within normal limits this morning. She currently denies any chest pain or pressure. She denies any shortness of breath. She does report having a cough. She is a current cigarette smoker and smokes 1 pack every 2-1/2 days. DIAGNOSTICS: - EKG reveals sinus mechanism with no signs of acute ischemia. - Chest CTA: Negative for pulmonary embolism. - Laboratory data: Troponin negative x 3 - Current home cardiac medications include Eliquis 5 mg twice a day, flecainide 50 mg twice a day, Cardizem CD 240 mg daily, and losartan 25 mg daily. - Most recent echocardiogram obtained in June 2024 reveals ejection fraction 55 to 60%, no obvious regional wall motion abnormalities, trace MR. - Cardiac catheterization history: 2019 revealing diffuse coronary artery disease with ectasia and 30 to 40% lesions involving RCA, circumflex, and proximal LAD. Medical management was recommended. - Patient underwent Lexiscan stress test in September 2024 which was negative for ischemia 02/27/2025 Patient examined this morning at bedside. Patient currently denies any chest pain or pressure. She denies any shortness of breath. She continues to report abdominal pain. She reports nausea and diarrhea as well this morning. Cardiogram completed revealing ejection fraction 55 to 60%. PHYSICAL EXAM: VITAL SIGNS: Reviewed. GENERAL: Well-developed in no acute distress. HEENT: Head is normocephalic. Pupils are equal, round. Sclerae anicteric. Mucous membranes of the mouth are moist. Neck supple. No JVD or thyromegaly LUNGS: Respirations even and unlabored. Lungs essentially clear to auscultation bilaterally. HEART: Regular rate and rhythm. S1 and S2 heard. ABDOMEN: Soft. Nondistended. Nontender. EXTREMITIES: Normal range of motion. No clubbing or cyanosis. Bilateral [id number] amputations NEUROLOGIC: Awake and alert. Oriented x 3. 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 Please reconsult if needed. Nurse practitioner note has been reviewed by physician. Signing provider agrees with the documented findings, assessment, and plan of care documented by ASSISTANT [employer]PER[employer] MANAGER as a scribe. Objective - Vital Signs Vital signs: Vital Signs Temp 98.2 F 02/27/25 07:33 Pulse 57 L 02/27/25 07:33 Resp 17 02/27/25 07:33 BP 174/73 02/27/25 07:33 Pulse Ox 97 02/27/25 07:33 FiO2 Intake & Output 02/26/25 02/27/25 02/27/25 18:59 06:59 18:59 Other: Voiding Method Bedpan Bedpan Bedpan # Voids 1 1 # Bowel Movements 1 - Labs CBC & Chem 7: 02/27/25 05:39 02/27/25 05:39 Labs: Abnormal Lab Results - Last 24 Hours (Table) 02/27/25 02/27/25 Range/Units 05:39 05:39 WBC 11.18 H (4.50-10.00) X 10*3/uL MCV 98.1 H (80.0-97.0) FL Immature Gran # 0.06 H (0.00-0.04) X 10*3/uL Eosinophils # 0.36 H (0.04-0.35) X 10*3/uL Chloride 110 H (96-109) mmol/L Carbon Dioxide 18.9 L (21.6-31.8) mmol/L Creatinine 0.5 L (0.6-1.5) mg/dL BUN/Creatinine Ratio 38.00 H (12.00-20.00) Ratio Calcium 8.1 L (8.7-10.3) mg/dL Total Bilirubin <0.2 L (0.3-1.2) mg/dL Total Protein 5.6 L (6.2-8.2) g/dL Albumin 3.5 L (3.8-4.9) g/dL
--- NOTE | 2025-02-27 14:05 | US ---
EXAMINATION TYPE: US kidneys/renal and bladder DATE OF EXAM: 02/27/2025 COMPARISON: Multiple, most recent CT 02/25/2025 CLINICAL INDICATION: Female, 69 years old with history of flank pain; Right nephrectomy TECHNIQUE: Grayscale imaging of the bilateral kidneys and urinary bladder: FINDINGS: EXAM MEASUREMENTS: Right Kidney: Surgically absent cm Left Kidney: 12.3 x 5.6 x 6.6 cm Post Void Residual Volume: NA mL Right Kidney: Surgically absent Left Kidney: ? Renal tissue vs other seen within lower pole = 2.9 x 1.9 x 2.8 cm Bladder: WNL Bilateral Jets seen: Left seen Normal Post Void Residual: NA Right kidney surgically absent. No suspicious soft tissue within the surgical bed within the limitati ons of an ultrasound. No left-sided hydronephrosis. Regions of cortical thinning with residual tissue identified within the left inferior renal pole corresponding to prior CT. Corticomedullary different iation is maintained. The left ureteral jet is identified. The urinary bladder is anechoic and unrema rkable. IMPRESSION: 1. No evidence for obstructive uropathy. 2. Postsurgical changes from right nephrectomy. 3. Regions of cortical thinning from prior insult involving the lower pole of the left kidney. Better appreciated on prior CT. [facility], , 02/27/2025 2:03 PM
[2025-02-27] MEDS: LACTOBACILLUS ACIDOPHILUS/PECT 1 EACH CAPSULE PO SCH (15:59)
[2025-02-27] MEDS: MAG HYDROX/AL HYDROX/SIMETH 30 ML CUP PO SCH (15:59)
--- NOTE | 2025-02-27 16:58 | P.PN ---
Subjective Progress Note Date: 02/27/25 02/27/2025. Patient seen and examined at bedside. No significant overnight events. Patient reporting generalized abdominal pain. She also states that she has had multiple bouts of diarrhea today, she is unable to say if they are bloody or not. She denies any current chest pain. Objective - Vital Signs Vital signs: Vital Signs Temp 99.0 F 02/27/25 13:58 Pulse 58 L 02/27/25 13:58 Resp 17 02/27/25 13:58 BP 147/75 02/27/25 13:58 Pulse Ox 94 L 02/27/25 13:58 FiO2 Intake & Output 02/26/25 02/27/25 02/27/25 18:59 06:59 18:59 Output Total 2 Balance -2 Output: Stool 2 Other: Voiding Method Bedpan Bedpan Bedpan # Voids 1 1 1 # Bowel Movements 1 - Exam Vital signs are stable. General: No acute distress. AOx4. HEENT: Head exam is unremarkable. EOMI bilaterally. ACs patent. Nares patent. Lungs: Bilateral breath sounds present; no rhonchi, wheezes, or rales. Heart: Rate and rhythm are regular. S1-S2 present. No murmur/rub/gallops. Abdomen: Soft, nontender, nondistended. Bowel sounds present. Extremities: No edema present. Symmetric movement. Bilateral above-knee amputations. Psych: Normal affect and mood. Cooperative. - Labs CBC & Chem 7: 02/27/25 05:39 02/27/25 05:39 Labs: Abnormal Lab Results - Last 24 Hours (Table) 02/27/25 02/27/25 Range/Units 05:39 05:39 WBC 11.18 H (4.50-10.00) X 10*3/uL MCV 98.1 H (80.0-97.0) FL Immature Gran # 0.06 H (0.00-0.04) X 10*3/uL Eosinophils # 0.36 H (0.04-0.35) X 10*3/uL Chloride 110 H (96-109) mmol/L Carbon Dioxide 18.9 L (21.6-31.8) mmol/L Creatinine 0.5 L (0.6-1.5) mg/dL BUN/Creatinine Ratio 38.00 H (12.00-20.00) Ratio Calcium 8.1 L (8.7-10.3) mg/dL Total Bilirubin <0.2 L (0.3-1.2) mg/dL Total Protein 5.6 L (6.2-8.2) g/dL Albumin 3.5 L (3.8-4.9) g/dL Assessment and Plan Assessment: Patient is a 69-year-old female with past medical history of A-fib maintained on Eliquis, CAD, CVA/TIA, hypertension, [id number] diabetes mellitus, hyperlipidemia, COPD admitted for chest pain and diffuse abdominal pain. Plan: Active #. Diffuse abdominal pain #. Multiple episodes of diarrhea Start Protonix 40 mg p.o. twice daily Obtain stool culture Obtain urinalysis Obtain ultrasound kidneys Start Maalox 30 mL p.o. 4 times daily Start acidophilus p.o. 3 times daily Continue Bentyl 20 mg p.o. 3 times daily Zofran 4 mg every 8 hours as needed for nausea Senokot-S 2 tabs p.o. daily Resolved #. Chest pain, ACS ruled out Chronic #. A-fib Continue Eliquis 5 mg p.o. twice daily Continue flecainide 50 mg every 12 hours Continue Cardizem 240 mg p.o. daily #. Hypertension Continue losartan 25 mg p.o. daily #. Hyperlipidemia Continue Lipitor 80 mg p.o. daily #. Anxiety/depression Continue Desyrel 50 mg p.o. at bedtime as needed Continue Xanax 0.5 mg p.o. twice daily as needed Continue BuSpar 10 mg p.o. 3 times daily Continue Lexapro 10 mg p.o. daily F: Saline 0.9% at 75 cc/h E: Replete if required N: Heart healthy diet DVT prophylaxis: Eliquis 5 mg p.o. twice daily GI prophylaxis: Protonix 40 mg p.o. twice daily Code status: Full code Anticipated discharge place: Pending clinical course Attestation I have seen and examined this patient with my resident , discussed the same with the resident/SADI, and agree with the dictator's assessment and plan as written Dr. Reynaldo grijalva
[2025-02-28 02:16] LABS: Amorphous Sediment,Urine Rare /hpf; Bacteria,Urine Few /hpf; Bilirubin,Urine Negative (Negative); Blood,Urine Negative (Negative); Color,Urine Colorless; Glucose,Urine (UA) Negative (Negative); Hyaline Casts,Urine 1 /lpf (0-2); Ketones,Urine Negative (Negative); Leukocyte Esterase,Urine Large (Negative); Mucus,Urine Occasional /hpf; Nitrite,Urine Negative (Negative); PH, Urine 5.5 (5.0-8.0); Protein,Urine Trace (Negative); RBC,Urine 1 /hpf (0-5); Specific Gravity,Urine 1.019 (1.001-1.035); Squamous Epithelial Cell,Urine 1 /hpf (0-4); Urobilinogen,Urine <2.0 mg/dL (<2.0); WBC,Urine 102 /hpf (0-5)
[2025-02-28] MEDS ORDERED: IPRATROPIUM-ALBUTEROL 3 ML NEB INHALATION PRN (11:46)
--- NOTE | 2025-02-28 13:36 | P.PN ---
Subjective Progress Note Date: 02/28/25 Hospital Course: 02/28/2025: Patient seen and examined at bedside. Patient still has complaints about abdominal pain, LLQ and states it feels like it radiates to right side. Patient states she hasn't had diarrhea since yesterday morning. Patient has been tolerating Heart healthy diet today. Patient states she has increased urgency and frequency but has not been able to void. UA + for esterase. Denies hematuria and dysuria. Patient seems SOB when speaking. Subjective: Patient seen and examined at bedside. No acute events overnight. Pertinent positives and negatives as discussed above, a complete review of systems was performed and all other systems are negative. 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 Right side nephrectomy Assessment and Plan: Active #. Diffuse abdominal pain #. Multiple episodes of diarrhea Start Protonix 40 mg p.o. twice daily Pending stool culture Start Maalox 30 mL p.o. 4 times daily Start acidophilus p.o. 3 times daily Continue Bentyl 20 mg p.o. 3 times daily Zofran 4 mg every 8 hours as needed for nausea Senokot-S 2 tabs p.o. daily #Uncomplicated UTI Ceftriaxone IVPB 2g q24hrs Monitory symptoms #Dyspnea/Shortness of breath DuoNeb breathing treatment Monitor O2 levels Resolved #. Chest pain, ACS ruled out Chronic #. A-fib Continue Eliquis 5 mg p.o. twice daily Continue flecainide 50 mg every 12 hours Continue Cardizem 240 mg p.o. daily #. Hypertension Continue losartan 25 mg p.o. daily #. Hyperlipidemia Continue Lipitor 80 mg p.o. daily #. Anxiety/depression Continue Desyrel 50 mg p.o. at bedtime as needed Continue Xanax 0.5 mg p.o. twice daily as needed Continue BuSpar 10 mg p.o. 3 times daily Continue Lexapro 10 mg p.o. daily DVT prophylaxis: Eliquis 5 mg p.o. twice daily GI prophylaxis: Protonix 40 mg p.o. twice daily Code status: Full code Anticipated discharge place: Pending clinical course Best Maddox MD PGY-1 Dictation was produced using [employer] dictation software. please excuse any grammatical, word or spelling errors Attestation I have seen and examined this patient with my resident , discussed the same with the resident/SADI, and agree with the dictator's assessment and plan as written Dr. Reynaldo grijalva Objective - Vital Signs Vital signs: Vital Signs Temp 98.1 F 02/28/25 07:28 Pulse 57 L 02/28/25 07:28 Resp 16 02/28/25 08:28 BP 173/75 02/28/25 07:28 Pulse Ox 95 02/28/25 07:28 FiO2 Intake & Output 02/27/25 02/28/25 02/28/25 18:59 06:59 18:59 Intake Total 240 Output Total 2 Balance -2 240 Intake: Oral 240 Output: Stool 2 Other: Voiding Method Bedpan Bedpan Bedpan # Voids 1 3 2 # Bowel Movements 1 - Labs CBC & Chem 7: 03/01/25 05:47 03/01/25 05:47 Labs: Abnormal Lab Results - Last 24 Hours (Table) 02/27/25 Range/Units 22:35 Urine Appearance Cloudy H (Clear) Urine Protein Trace H (Negative) Ur Leukocyte Esterase Large H (Negative) Urine WBC 102 H (0-5) /hpf Urine WBC Clumps Occasional H (None) /hpf Amorphous Sediment Rare H (None) /hpf Urine Bacteria Few H (None) /hpf Urine Mucus Occasional H (None) /hpf Assessment and Plan (1) Abdominal pain Current Visit: No Status: Acute Code(s): R10.9 - UNSPECIFIED ABDOMINAL PAIN SNOMED Code(s): 89007922 (2) Hypertensive urgency Current Visit: Yes Status: Acute Code(s): I16.0 - HYPERTENSIVE URGENCY S NOMED Code(s): 206930983 (3) Chest pain Current Visit: Yes Status: Acute Code(s): R07.9 - CHEST PAIN, UNSPECIFIED SNOMED Code(s): 26218203 (4) Atrial fibrillation with RVR Current Visit: No Status: Acute Code(s): I48.91 - UNSPECIFIED ATRIAL FIBRILLATION SNOMED Code(s): 998496181575032
[2025-02-28] MEDS: ALPRAZolam 0.5 MG TAB PO PRN (19:53)
[2025-03-01 04:40] VITALS: RESP 18
[2025-03-01 08:05] LABS: Basophils # (A) 0.06 X 10*3/uL (0.00-0.10); Basophils % (A) 0.6 %; Eosinophils # (A) 0.29 X 10*3/uL (0.04-0.35); Eosinophils % (A) 2.7 %; HCT 39.8 % (37.2-46.3); HGB 12.6 g/dL (12.0-15.0); Immature Grans, Automated 0.60 %; Lymphocytes # (A) 3.02 X 10*3/uL (0.90-5.00); Lymphocytes % (A) 27.8 %; MCH 31.0 pg (27.0-32.0); MCHC 31.7 g/dL (32.0-37.0); MCV 98.0 FL (80.0-97.0); Monocytes # (A) 0.66 X 10*3/uL (0.20-1.00); Monocytes % (A) 6.1 %; NRBC Per 100 WBC 0 X 10*3/uL (0.00-0.01); Neutrophils # (A) 6.78 X 10*3/uL (1.80-7.70); Neutrophils % (A) 62.2 %; Platelet Count 288 X 10*3/uL (140-440); RBC 4.06 X 10*6/uL (4.10-5.20); RDW 13.0 % (11.5-14.5); WBC 10.87 X 10*3/uL (4.50-10.00)
[2025-03-01 08:47] LABS: Anion Gap 11.40 mmol/L (4.00-12.00); BUN/Creat Ratio 33.60 Ratio (12.00-20.00); Blood Urea Nitrogen 16.8 mg/dL (9.0-27.0); Calcium 8.2 mg/dL (8.7-10.3); Carbon Dioxide 20.6 mmol/L (21.6-31.8); Chloride 110 mmol/L (96-109); Glucose 117 mg/dL (70-110); Potassium 4.6 mmol/L (3.5-5.5); Sodium 142 mmol/L (135-145)
--- NOTE | 2025-03-01 14:11 | P.DS ---
Providers Date of admission: 02/26/25 00:50 Expected date of discharge: 03/01/25 Attending physician: Keeley Gasca Primary care physician: Pavel Spaulding MD - Discharge Diagnosis(es) (1) Abdominal pain Current Visit: No Status: Acute (2) Hypertensive urgency Current Visit: Yes Status: Acute (3) Chest pain Current Visit: Yes Status: Acute (4) Atrial fibrillation with RVR Current Visit: No Status: Acute Hospital Course: Discharge Diagnosis: Abdominal pain/cystitis A-fib Hypertension Hyperlipidemia Anxiety/depression Hospital Course: Patient is a 69 female with a PMH of A-fib, coronary artery disease, CVA/TIA, uncontrolled hypertension, diabetes, hyperlipidemia, COPD and history of pancreatitis. Patient's blood pressure on admission was 195/129 and repeat was 228/130. Blood pressure today is 193/72. Patient denies any chest pain at this time but complaining of diffuse abdominal pain and her lower abdomen. Placed on n.p.o. diet patient states she improved with diet. Patient also stated she has been having diarrhea before coming into to the hospital, unsure if there is any blood in stool. Patient was progressed to heart healthy diet. patient's diarrhea resolved on 02/28, nurse stated stool was soft with no signs of blood, brown color and patient agrees. Patient was complaining about increased urgency and frequency with unable to urinate. Patient denies any burning with urination. Patient was started on Rocephin 2 g. Patient received Rocephin for 2 days, will discharge on Ceftin 500 mg twice daily for 3 more days for total 5 days. Patient seen and examined at bedside. No concerns. Vital signs reviewed and stable. Physical examination: Vital signs reviewed General: non toxic, no distress ENT: Nose and ears atraumatic Mouth: no lip lesion, mucus membranes moist Cardiovascular: S1S2 reg, no murmur Lungs: CTA bilateral, no rhonchi, no rales Abdominal: Tender to palpation and guarding lower left quadrant and lower mid abdomen, no rebound tenderness. Ext: Bilateral below the knee amputations, congenital defect. Neuro: CN II-XI grossly intact, no gross focal neuro deficits Psych: Alert, oriented to person, place, and time A total of greater than 30 minutes of time were spent preparing this complex discharge summary. Patient was discharged on 03/01/2025. Best Maddox MD PGY-1 FM Dictation was produced using [employer] dictation software. please excuse any grammatical, word or spelling errors. Patient Condition at Discharge: Good Plan - Discharge Summary Discharge Rx Participant: No New Discharge Prescriptions: Continue tiZANidine [Zanaflex] 4 mg PO Q8HR PRN 30 Days #90 tab PRN Reason: Muscle Spasm HYDROcodone/APAP 10-325MG [[employer] 10-325] 1 tab PO Q4-6H PRN 30 Days #150 tab PRN Reason: Pain methocarbamoL [Robaxin-750] 750 mg PO TID PRN 30 Days #90 tab PRN Reason: Muscle Spasm No Action ALPRAZolam [Xanax] 0.5 mg PO BID PRN PRN Reason: Anxiety busPIRone HCl [Buspar] 10 mg PO TID Pantoprazole Sodium [Protonix] 40 mg PO DAILY Apixaban [Eliquis] 5 mg PO BID #60 tab Escitalopram Oxalate [Lexapro] 10 mg PO DAILY Dicyclomine [Bentyl] 20 mg PO TID dilTIAZem HCL [Cardizem CD] 240 mg PO DAILY Montelukast [Singulair] 10 mg PO HS Sennosides/Docusate Sodium [Senna-S 8.6-50 mg Tablet] 2 tab PO DAILY Cetirizine HCl [Zyrtec] 10 mg PO DAILY Magnesium Oxide [Mag-Ox] 400 mg PO DAILY traZODone HCL [Desyrel] 50 mg PO HS PRN PRN Reason: sleep Flecainide [Tambocor] 50 mg PO Q12HR #60 tablet Atorvastatin [Lipitor] 80 mg PO DAILY Losartan [Cozaar] 25 mg PO DAILY Discharge Medication List ALPRAZolam [Xanax] 0.5 mg PO BID PRN 01/20/19 [History] busPIRone HCl [Buspar] 10 mg PO TID 12/25/19 [History] Pantoprazole Sodium [Protonix] 40 mg PO DAILY 08/28/20 [History] Apixaban [Eliquis] 5 mg PO BID #60 tab 12/12/20 [Rx] Escitalopram Oxalate [Lexapro] 10 mg PO DAILY 11/28/21 [History] Dicyclomine [Bentyl] 20 mg PO TID 06/21/24 [History] Magnesium Oxide [Mag-Ox] 400 mg PO DAILY 06/21/24 [History] Montelukast [Singulair] 10 mg PO HS 06/21/24 [History] Sennosides/Docusate Sodium [Senna-S 8.6-50 mg Tablet] 2 tab PO DAILY 06/21/24 [History] dilTIAZem HCL [Cardizem CD] 240 mg PO DAILY 06/21/24 [History] traZODone HCL [Desyrel] 50 mg PO HS PRN 06/21/24 [History] Flecainide [Tambocor] 50 mg PO Q12HR #60 tablet 06/23/24 [Rx] Atorvastatin [Lipitor] 80 mg PO DAILY 02/26/25 [History] Cetirizine HCl [Zyrtec] 10 mg PO DAILY 02/26/25 [History] Losartan [Cozaar] 25 mg PO DAILY 02/26/25 [History] HYDROcodone/APAP 10-325MG [[employer] 10-325] 1 tab PO Q4-6H PRN 30 Days #150 tab 02/28/25 [Rx] methocarbamoL [Robaxin-750] 750 mg PO TID PRN 30 Days #90 tab 02/28/25 [Rx] tiZANidine [Zanaflex] 4 mg PO Q8HR PRN 30 Days #90 tab 02/28/25 [Rx] Follow up Appointment(s)/Referral(s): Pavel Spaulding MD [Primary Care Provider] - 1-2 days
[2025-03-01 14:54] VITALS: BP 181/68; PULSE 65; TEMP 98.2
== END 2025-03-01 15:51 | disposition home or self-care (01) ==
LOC: EC 21:06 → 6NMEDSUR 02-26 00:50
PROVIDERS: ADMIT Hospitalist; ATTEND Hospitalist
DX: I16.0 Hypertensive urgency (principal); I10 Essential (primary) hypertension; N30.90 Cystitis, unspecified without hematuria; I48.0 Paroxysmal atrial fibrillation; K85.90 Acute pancreatitis without necrosis or infection, unspecified; E11.9 Type 2 diabetes mellitus without complications; E78.5 Hyperlipidemia, unspecified; F17.210 Nicotine dependence, cigarettes, uncomplicated; F32.A Depression, unspecified; F41.9 Anxiety disorder, unspecified; G89.29 Other chronic pain; I25.10 Atherosclerotic heart disease of native coronary artery without angina pectoris; J44.9 Chronic obstructive pulmonary disease, unspecified; K21.9 Gastro-esophageal reflux disease without esophagitis; Z79.01 Long term (current) use of anticoagulants; Z79.899 Other long term (current) drug therapy; Z88.8 Allergy status to other drugs, medicaments and biological substances; Z88.1 Allergy status to other antibiotic agents; Z88.2 Allergy status to sulfonamides; Z89.611 Acquired absence of right leg above knee; Z89.612 Acquired absence of left leg above knee
CPT/HCPCS: 96376 ×4; 96365; 96375 ×3; 99285; 36415; 93005; 93306; 85379; 83880; 80053 ×2; 80048; 83690; 83735 ×2; 84100; 84484 ×2; 85025 ×3; 85610; 85730; 81001; 87086; 87045; 87077; 87186; 87046; 76770; 71275; 74177; G0378 ×4; J2405 ×4; J0696 ×2; Q9957; J1171 ×5; Q9967; J1920